=== PATIENT | female | born 1965 | race Two or more races ===

== ENCOUNTER 2019-11-06 21:53 | Inpatient (IN) | payer MEDICAID ==
[~2019-11-06] VITALS: Ht 154.9 cm; Wt 136.1 kg
--- NOTE | 2019-11-06 21:59 | Emergency Room Report ---
History of Present Illness General Chief Complaint: Edema Source: Patient Present Illness HPI Patient is a 54-year-old male female brought in by EMS after increased generalized weakness and difficulty with breathing. Reportedly patient had been noncompliant with her medications. Had increased work of breathing. Unknown what previous medical history is however she reportedly has some history of diabetes as well as hypertension. Patient had reportedly been poorly compliant with medications. And had previously refused transport by EMS. Allergies: Coded Allergies: No Known Allergies (Unverified , 11/06/19) COVID-19 Screening Contact w/high risk pt: No Experienced COVID-19 symptoms?: No COVID-19 Testing performed UNIT AID: No Patient History Past Medical History: see triage record Reviewed Nursing Documentation: PMH: Agreed; PSxH: Agreed Nursing Documentation-PMH Hx Hypertension: Yes Hx Diabetes: Yes Review of Systems All Other Systems: limited - Limited by poor historian Physical Exam Vital Signs Date Time Temp Pulse Resp B/P (MAP) Pulse Ox O2 Delivery O2 Flow Rate FiO2 11/06/19 21:46 98.8 100 18 150/100 (117) 96 Nasal Cannula 4.0 General Appearance: obese, Chronically Ill Eyes: bilateral eye PERRL Neck: full range of motion Respiratory: crackles Cardiovascular #1: normal peripheral pulses, regular rate, rhythm, edema - 4+ weeping to the right lower extremity Gastrointestinal: normal bowel sounds, non tender, soft Musculoskeletal: normal inspection Neurologic: alert, motor strength/tone normal, flour broker III-XII nml as tested, oriented x3 Skin: other - Slight erythema to the right lower extremity Medical Decision Making Diagnostic Impression: Primary Impression: 2019 novel coronavirus disease (COVID-19) Additional Impressions: Multifocal pneumonia CHF (congestive heart failure) Diabetes Fluid overload ER Course Patient presented for generalized weakness. Differential diagnosis include was not limited to congestive heart failure, electrolyte abnormality, dehydration, myocardial infarction, renal failure among others. Because of complexity of patient's case laboratory tests and imaging studies were ordered. Patient was noted to have what appears to be volume overload. Right lower extremity does appear to be somewhat erythematous. Pulses to the lower extremity appear to be intact.Duplex ultrasound was ordered. Patient's rapid coronavirus test was positive for coronavirus. Patient was given IV Lasix due to volume overload. Patient's troponin was noted to be 0.1. Patient was anticoagulated with Lovenox. Chest x-ray 1 view read by radiology showed bilateral patchy infiltrates extensive consolidative airspace opacities concerning for multifocal pneumonia and cardiomegaly. Patient was given IV antibiotics due to possible cellulitis of the right lower extremity. Duplex ultrasound showed no evidence of DVT.Dr. Gustabo Carter was contacted for inpatient management due to panel physician. Labs Test 11/06/19 22:20 11/06/19 23:07 White Blood Count 9.3 K/UL (4.8-10.8) Red Blood Count 5.57 M/UL (4.20-5.40) Hemoglobin 15.0 G/DL (12.0-16.0) Hematocrit 49.5 % (37.0-47.0) Mean Corpuscular Volume 89 FL (80-99) Mean Corpuscular Hemoglobin 27.0 PG (27.0-31.0) Mean Corpuscular Hemoglobin Concent 30.4 G/DL (32.0-36.0) Red Cell Distribution Width 17.7 % (11.6-14.8) Platelet Count 252 K/UL (150-450) Mean Platelet Volume 7.0 FL (6.5-10.1) Neutrophils (%) (Auto) 79.8 % (45.0-75.0) Lymphocytes (%) (Auto) 9.3 % (20.0-45.0) Monocytes (%) (Auto) 8.3 % (1.0-10.0) Eosinophils (%) (Auto) 1.4 % (0.0-3.0) Basophils (%) (Auto) 1.2 % (0.0-2.0) Prothrombin Time 13.1 SEC (9.30-11.50) Prothromb Time International Ratio 1.2 (0.9-1.1) Activated Partial Thromboplast Time 28 SEC (23-33) Sodium Level 137 MMOL/L (136-145) Potassium Level 5.2 MMOL/L (3.5-5.1) Chloride Level 102 MMOL/L (98-107) Carbon Dioxide Level 29 MMOL/L (21-32) Anion Gap 6 mmol/L (5-15) Blood Urea Nitrogen 19 mg/dL (7-18) Creatinine 1.1 MG/DL (0.55-1.30) Estimat Glomerular Filtration Rate 51.9 mL/min (>60) Glucose Level 196 MG/DL (74-106) Lactic Acid Level 2.80 mmol/L (0.4-2.0) Calcium Level 8.4 MG/DL (8.5-10.1) Phosphorus Level 3.9 MG/DL (2.5-4.9) Magnesium Level 2.5 MG/DL (1.8-2.4) Total Bilirubin 1.8 MG/DL (0.2-1.0) Direct Bilirubin 1.0 MG/DL (0.0-0.3) Aspartate Amino Transf (AST/SGOT) 68 U/L (15-37) Alanine Aminotransferase (ALT/SGPT) 51 U/L (12-78) Alkaline Phosphatase 332 U/L (46-116) Total Creatine Kinase 95 U/L (26-308) Creatine Kinase MB 2.0 NG/ML (0.0-3.6) Creatine Kinase MB Relative Index 2.1 Troponin I 0.110 ng/mL (0.000-0.056) Total Protein 8.8 G/DL (6.4-8.2) Albumin 2.9 G/DL (3.4-5.0) Globulin 5.9 g/dL Albumin/Globulin Ratio 0.5 (1.0-2.7) Urine Color Yellow Urine Appearance Clear Urine pH 5 (4.5-8.0) Urine Specific [place] 1.010 (1.005-1.035) Urine Protein 1+ (NEGATIVE) Urine Glucose (UA) Negative (NEGATIVE) Urine Ketones Negative (NEGATIVE) Urine Blood 2+ (NEGATIVE) Urine Nitrite Negative (NEGATIVE) Urine Bilirubin Negative (NEGATIVE) Urine Urobilinogen Normal MG/DL (0.0-1.0) Urine Leukocyte Esterase Trace (NEGATIVE) Urine RBC 2-4 /HPF (0 - 2) Urine WBC 0-2 /HPF (0 - 2) Urine Squamous Epithelial Cells Few /LPF (NONE/OCC) Urine Bacteria Few /HPF (NONE) Urine Granular Casts 0-2 /LPF (NONE) EKG Diagnostic Results EKG Time: 22:03 Rate: normal Rhythm: other - atrial fibrillation ST Segments: no acute changes Other Impression Right bundle branch block. no st changes. Last Vital Signs Date Time Temp Pulse Resp B/P (MAP) Pulse Ox O2 Delivery O2 Flow Rate FiO2 11/06/19 21:46 98.8 100 18 150/100 (191) 96 Nasal Cannula 4.0 Status: unchanged Disposition: ADMITTED INPATIENT Condition: Serious Sin Valenzuela MD Nov 06, 2019 21:59
[2019-11-06] MEDS ORDERED: Piperacillin/Tazobactam 3.375 GM in NS 110 ML IVPB ONE (22:15)
--- NOTE | 2019-11-06 22:16 | Diagnostic Imaging Report ---
EXAM: XR Chest, 1 View CLINICAL HISTORY: SOB TECHNIQUE: Frontal view of the chest. COMPARISON: No relevant prior studies available. FINDINGS: Lungs: Patchy bilateral extensive consolidative airspace opacities concerning for multifocal pneumonia. Pleural space: Unremarkable. No pneumothorax. Heart: Cardiomegaly. Mediastinum: Unremarkable. Bones/joints: No acute abnormality Other findings: If there is further concern, recommend CT. IMPRESSION: 1. Patchy bilateral extensive consolidative airspace opacities concerning for multifocal pneumonia or noncardiogenic pulmonary edema. 2. Cardiomegaly. 3. If there is further concern, recommend CT.
[2019-11-06 22:20] VITALS: BP 150/100
[2019-11-06 22:50] LABS: BASOPHILS % (AUTO) 1.2 % (0.0-2.0); EOSINOPHILS % (AUTO) 1.4 % (0.0-3.0); HEMATOCRIT 49.5 % (37.0-47.0); LYMPHOCYTES % (AUTO) 9.3 % (20.0-45.0); MEAN CORPUSCULAR VOLUME 89 FL (80-99); MONOCYTES % (AUTO) 8.3 % (1.0-10.0); NEUTROPHILS % (AUTO) 79.8 % (45.0-75.0); PLATELET COUNT 252 K/UL (150-450); RED BLOOD COUNT 5.57 M/UL (4.20-5.40); RED CELL DISTRIBUTION WIDTH 17.7 % (11.6-14.8); WHITE BLOOD COUNT 9.3 K/UL (4.8-10.8)
[2019-11-06 22:54] LABS: INR 1.2 (0.9-1.1)
[2019-11-06 23:05] LABS: ANION GAP 6 mmol/L (5-15); BLOOD UREA NITROGEN 19 mg/dL (7-18); CALCIUM 8.4 MG/DL (8.5-10.1); CARBON DIOXIDE 29 MMOL/L (21-32); CHLORIDE 102 MMOL/L (98-107); CREATININE 1.1 MG/DL (0.55-1.30); POTASSIUM 5.2 MMOL/L (3.5-5.1); SODIUM 137 MMOL/L (136-145)
[2019-11-06] MEDS ORDERED: Aspirin Baby 81mg ORAL ONE (23:15)
[2019-11-06 23:18] LABS: APPEARANCE,URINE CLEAR; BILIRUBIN, URINE NEGATIVE (NEGATIVE); GLUCOSE, URINE (UA) NEGATIVE (NEGATIVE); KETONES,URINE NEGATIVE (NEGATIVE); NITRITE,URINE NEGATIVE (NEGATIVE); PH,URINE 5 (4.5-8.0); PROTEIN,URINE 1+ (NEGATIVE); UROBILINOGEN,URINE NORMAL MG/DL (0.0-1.0)
[2019-11-06 23:18] LABS: ALANINE AMINOTRANSFERASE 51 U/L (12-78); ALBUMIN 2.9 G/DL (3.4-5.0); ALBUMIN/GLOBULIN RATIO 0.5 (1.0-2.7); ALKALINE PHOSPHATASE 332 U/L (46-116); ASPARTATE AMINO TRANSFERASE 68 U/L (15-37); BILIRUBIN,TOTAL 1.8 MG/DL (0.2-1.0); CREATINE KINASE 95 U/L (26-308); PHOSPHORUS 3.9 MG/DL (2.5-4.9)
[2019-11-06 23:37] LABS: COLOR,URINE YELLOW; LEUKOCYTE ESTERASE ,URINE TRACE (NEGATIVE)
[2019-11-06 23:56] VITALS: BP 142/89
[2019-11-07] VITALS (7 sets, daily range): BP systolic 120–163; BP diastolic 59–91
[2019-11-07] MEDS ORDERED: dexAMETHasone 10mg/ml Inj IV ONE
--- NOTE | 2019-11-07 00:28 | Diagnostic Imaging Report ---
EXAM: US Duplex Right Lower Extremity Veins CLINICAL HISTORY: PAIN TECHNIQUE: Real-time duplex ultrasound scan of the right lower extremity veins integrating B-mode two-dimensional vascular structure, Doppler spectral analysis, color flow Doppler imaging and compression. COMPARISON: No relevant prior studies available. FINDINGS: Deep veins: Unremarkable. No DVT in the visualized common femoral, femoral, proximal deep femoral or popliteal veins. The veins demonstrate normal color flow, are normally compressible, with normal phasic flow and/or augmentation response. Superficial veins: Unremarkable. No thrombus in the visualized great saphenous vein. Soft tissues: No acute findings. No popliteal cyst. IMPRESSION: No DVT.
[2019-11-07] MEDS ORDERED: FUROSEMIDE40 MG ORAL (00:38)
[2019-11-07] MEDS ORDERED: METFORMIN HCL500 M1 ORAL (00:39)
[2019-11-07] MEDS: Enoxaparin 120 mg inj SUBQ SCH ×3 (00:56→21:40)
[2019-11-07 05:24] LABS: ANION GAP 7 mmol/L (5-15); BLOOD UREA NITROGEN 21 mg/dL (7-18); CALCIUM 8.2 MG/DL (8.5-10.1); CARBON DIOXIDE 29 MMOL/L (21-32); CHLORIDE 102 MMOL/L (98-107); CREATININE 1.2 MG/DL (0.55-1.30); POTASSIUM 4.5 MMOL/L (3.5-5.1); SODIUM 137 MMOL/L (136-145)
[2019-11-07] MEDS ORDERED: IV Preparation Fee ONE (06:00)
[2019-11-07] MEDS: NovoLOG Insulin Flexpen SUBQ SCH ×4 (06:08→21:39)
[2019-11-07] MEDS ORDERED: Remdesivir Fact Sheet MISC SCH (10:45)
[2019-11-07] MEDS ORDERED: IV Preparation Fee MISC PRN (13:00)
[2019-11-07] MEDS ORDERED: Loading Dose:Remdesivir 200mg/NS 210ml IV SCH ×2 (13:00)
--- NOTE | 2019-11-07 16:30 | History and Physical Report ---
DATE OF ADMISSION: 11/06/2019 DATE AND TIME SEEN: 11/07/2019 at 9 a.m. CONSULTANTS: 1. Anthony Saini MD. 2. Rosette Bowman MD. 3. Gabe Snell MD. CHIEF COMPLAINT: Weakness, pneumonia, COVID infection, diabetes, hypertension, AFib, right leg swelling. BRIEF HISTORY: This is a 54-year-old female, presents to [facility] with above-mentioned diagnoses, admitted to step-down unit. Currently, sleeping in bed, not talking much. REVIEW OF SYSTEMS: Unavailable. PAST MEDICAL HISTORY: Include diabetes, hypertension, CHF. PAST SURGICAL HISTORY: Unknown. MEDICATIONS: Include insulin, dexamethasone, Zosyn, aspirin, furosemide. ALLERGIES: Denies. SOCIAL HISTORY: Unable to obtain secondary to the patient's lethargy. OBJECTIVE: GENERAL: Sleeping in bed, not talking much, lethargic, sleepy. VITAL SIGNS: Temperature is 97, pulse 103, respirations 23, blood pressure 138/90. HEENT: Normocephalic and atraumatic. NECK: Trachea midline. CARDIOVASCULAR: No peripheral edema. LUNG: Slight short of breath on room air. ABDOMEN: No apparent wounds. EXTREMITIES: Show no cyanosis or clubbing. LABORATORY AND DIAGNOSTIC DATA: Labs at this time show CBC is normal. BMP shows BUN 21, glucose 232, calcium 8.2. INR is 1.2. D-dimer 8.58. Urinalysis show trace leukocyte esterase. ASSESSMENT: Weakness, pneumonia, UTI, COVID infection, diabetes, hypertension, right leg swelling, AFib, and CHF. PLAN: O2 and pulmonary treatment as needed. Antibiotics per Infectious Disease. Blood pressure, blood sugar, and pain control. Dietary followup. PT and dietary evaluation. CBC and BMP in the morning. Gustabo Carter D.O. DR: DILIP/CORA JOB#: [id number] CC:
--- NOTE | 2019-11-07 16:40 | Cardiac Electrophysiology PN ---
Subjective Subjective [id number] Objective Last 24 Hour Vital Signs Date Time Temp Pulse Resp B/P (MAP) Pulse Ox O2 Delivery O2 Flow Rate FiO2 11/07/19 16:00 Nasal Cannula 2.0 11/07/19 15:45 101 11/07/19 12:00 Nasal Cannula 2.0 11/07/19 12:00 96.1 95 21 144/83 (103) 100 11/07/19 11:39 95 11/07/19 08:44 103 11/07/19 08:00 97.7 90 23 138/90 (106) 98 11/07/19 08:00 Nasal Cannula 2.0 11/07/19 04:00 Nasal Cannula 2.0 11/07/19 04:00 98.2 107 20 146/85 (105) 98 11/07/19 04:00 102 11/07/19 01:24 Nasal Cannula 6.0 11/07/19 01:06 104 11/07/19 01:00 98.0 101 20 163/81 (108) 99 11/07/19 00:45 98.8 98 17 142/89 99 Nasal Cannula 6.0 11/06/19 23:56 98 17 142/89 100 Nasal Cannula 6.0 11/06/19 22:20 100 18 Nasal Cannula 4.0 11/06/19 22:20 98.8 108 18 150/100 96 Nasal Cannula 6.0 11/06/19 21:46 98.8 100 18 150/100 (117) 96 Nasal Cannula 4.0 Intake and Output 11/06/19 11/07/19 19:00 07:00 Intake Total 100 ml Balance 100 ml Intake Oral 100 ml Laboratory Tests Test 11/06/19 22:20 11/06/19 23:07 11/06/19 23:43 11/07/19 00:34 White Blood Count 9.3 K/UL (4.8-10.8) Red Blood Count 5.57 M/UL (4.20-5.40) H Hemoglobin 15.0 G/DL (12.0-16.0) Hematocrit 49.5 % (37.0-47.0) H Mean Corpuscular Volume 89 FL (80-99) Mean Corpuscular Hemoglobin 27.0 PG (27.0-31.0) Mean Corpuscular Hemoglobin Concent 30.4 G/DL (32.0-36.0) L Red Cell Distribution Width 17.7 % (11.6-14.8) H Platelet Count 252 K/UL (150-450) Mean Platelet Volume 7.0 FL (6.5-10.1) Neutrophils (%) (Auto) 79.8 % (45.0-75.0) H Lymphocytes (%) (Auto) 9.3 % (20.0-45.0) L Monocytes (%) (Auto) 8.3 % (1.0-10.0) Eosinophils (%) (Auto) 1.4 % (0.0-3.0) Basophils (%) (Auto) 1.2 % (0.0-2.0) Prothrombin Time 13.1 SEC (9.30-11.50) H Prothromb Time International Ratio 1.2 (0.9-1.1) H Activated Partial Thromboplast Time 28 SEC (23-33) Sodium Level 137 MMOL/L (136-145) Potassium Level 5.2 MMOL/L (3.5-5.1) H Chloride Level 102 MMOL/L (98-107) Carbon Dioxide Level 29 MMOL/L (21-32) Anion Gap 6 mmol/L (5-15) Blood Urea Nitrogen 19 mg/dL (7-18) H Creatinine 1.1 MG/DL (0.55-1.30) Estimat Glomerular Filtration Rate 51.9 mL/min (>60) Glucose Level 196 MG/DL (74-106) H Lactic Acid Level 2.80 mmol/L (0.4-2.0) H 2.70 mmol/L (0.66-2.22) H Calcium Level 8.4 MG/DL (8.5-10.1) L Phosphorus Level 3.9 MG/DL (2.5-4.9) Magnesium Level 2.5 MG/DL (1.8-2.4) H Total Bilirubin 1.8 MG/DL (0.2-1.0) H Direct Bilirubin 1.0 MG/DL (0.0-0.3) H Aspartate Amino Transf (AST/SGOT) 68 U/L (15-37) H Alanine Aminotransferase (ALT/SGPT) 51 U/L (12-78) Alkaline Phosphatase 332 U/L (46-116) H Total Creatine Kinase 95 U/L (26-308) Creatine Kinase MB 2.0 NG/ML (0.0-3.6) Creatine Kinase MB Relative Index 2.1 Troponin I 0.110 ng/mL (0.000-0.056) Pro-B-Type Natriuretic Peptide 3219 pg/mL (0-125) H Total Protein 8.8 G/DL (6.4-8.2) H Albumin 2.9 G/DL (3.4-5.0) L Globulin 5.9 g/dL Albumin/Globulin Ratio 0.5 (1.0-2.7) L Urine Color Yellow Urine Appearance Clear Urine pH 5 (4.5-8.0) Urine Specific [place] 1.010 (1.005-1.035) Urine Protein 1+ (NEGATIVE) H Urine Glucose (UA) Negative (NEGATIVE) Urine Ketones Negative (NEGATIVE) Urine Blood 2+ (NEGATIVE) H Urine Nitrite Negative (NEGATIVE) Urine Bilirubin Negative (NEGATIVE) Urine Urobilinogen Normal MG/DL (0.0-1.0) Urine Leukocyte Esterase Trace (NEGATIVE) H Urine RBC 2-4 /HPF (0 - 2) H Urine WBC 0-2 /HPF (0 - 2) Urine Squamous Epithelial Cells Few /LPF (NONE/OCC) Urine Bacteria Few /HPF (NONE) Urine Granular Casts 0-2 /LPF (NONE) H D-Dimer 8.58 mg/L FEU (0.00-0.49) H Test 11/07/19 01:30 11/07/19 04:15 11/07/19 05:39 11/07/19 05:40 POC Whole Blood Glucose Pending 241 MG/DL (74-106) H Pending Sodium Level 137 MMOL/L (136-145) Potassium Level 4.5 MMOL/L (3.5-5.1) Chloride Level 102 MMOL/L (98-107) Carbon Dioxide Level 29 MMOL/L (21-32) Anion Gap 7 mmol/L (5-15) Blood Urea Nitrogen 21 mg/dL (7-18) H Creatinine 1.2 MG/DL (0.55-1.30) Estimat Glomerular Filtration Rate 47.0 mL/min (>60) Glucose Level 232 MG/DL (74-106) H Calcium Level 8.2 MG/DL (8.5-10.1) L Test 11/07/19 11:52 Arterial Blood pH 7.364 (7.350-7.450) Arterial Blood Partial Pressure CO2 50.9 mmHg (35.0-45.0) H Arterial Blood Partial Pressure O2 83.8 mmHg (75.0-100.0) Arterial Blood HCO3 28.4 mmol/L (22.0-26.0) H Arterial Blood Oxygen Saturation 95.9 % (95-100) Arterial Blood Base Excess 2.0 (-2-2) Steve Test Positive Microbiology Date/Time Source Procedure Growth Status 11/06/19 22:45 Nasopharynx SARS-CoV-2 RdRp Gene Assay - Final Complete Gabe Snell MD Nov 07, 2019 16:40
--- NOTE | 2019-11-07 17:45 | Consultation ---
DATE OF CONSULTATION: 11/07/2019 INFECTIOUS DISEASE CONSULTATION REFERRING PHYSICIAN: Gustabo Carter D.O. REASON FOR CONSULTATION: COVID-19 pneumonia. HISTORY OF PRESENTING ILLNESS: This is a 54-year-old lady with history of hypertension and diabetes, who came in with shortness of breath along with weakness. She was found to have COVID-19 pneumonia and an infectious disease consultation has been obtained for antibiotics. PAST MEDICAL HISTORY: 1. History of diabetes. 2. History of hypertension. SOCIAL HISTORY: She does not smoke, drink, or use drugs. FAMILY HISTORY: Unknown. REVIEW OF SYSTEMS: RESPIRATORY: No fever of chills. No cough. She has shortness of breath. No chest pain. CARDIAC: No chest pain. No palpitation. No dizziness. No syncope. GASTROINTESTINAL: No nausea. No vomiting. No abdominal pain or diarrhea. MEDICATIONS: As an inpatient, she is on remdesivir, insulin, enoxaparin, dexamethasone. ALLERGIES: No known drug allergies. PHYSICAL EXAMINATION: VITAL SIGNS: Temperature of 97.7, T-max of 98.8, pulse of 103, respiratory rate 23, blood pressure 138/90, O2 sat of 98% on 2 liters of oxygen. Examination deferred due to COVID-19. LABORATORY AND DIAGNOSTIC DATA: White count 9.3, hemoglobin 15, hematocrit 49.5, MCV 89, platelet count 252, with neutrophils of 79%. Sodium 137, potassium 4.5, chloride 102, bicarb 29, BUN 21, creatinine 1.2, glucose 232, calcium 8.2, total bilirubin 1.8, direct bilirubin 1, AST 68, ALT 51, alkaline phosphatase 332. CK of 95, CK-MB of 2. Troponin 0.1. Total protein 8.8, albumin 2.9. UA showing 0-2 white cells. SARS COVID-19 test is positive. Chest x-ray showing patchy bilateral extensive consolidation, opacities concerning for multifocal pneumonia, cardiomegaly noted. Ultrasound of legs showed no evidence of DVT ASSESSMENT: This is a 54-year-old lady with history of diabetes and hypertension, who comes in with shortness of breath and is found to have: 1. COVID-19 pneumonia. She is on 2 liters of oxygen with O2 saturation of 98%. 2. Diabetes. 3. Hypertension. PLAN: 1. start remdesivir EUA The patient consents to taking it. Benefits outweigh the risks. 2. Continue dexamethasone, day 2. 3. Continue isolation. 4. We will follow up the patient clinically. I would like to thank, Dr. Gustabo Carter, for this consultation. Rosette Bowman M.D. DR: KUSHAL JOB#: [id number] CC: Usha Neri
--- NOTE | 2019-11-07 18:45 | Consultation ---
DATE OF CONSULTATION: 11/07/2019 PULMONARY CONSULTATION CONSULTING PHYSICIAN: Anthony Saini MD. HISTORY OF PRESENT ILLNESS: This is a 54-year-old female who was brought to the hospital with weakness and difficulty with breathing. The patient is very noncompliant with her home medications. She reports history of diabetes mellitus and hypertension. She was seen and evaluated and admitted to the hospital for management and care. PAST MEDICAL HISTORY: Hypertension and diabetes mellitus. CURRENT MEDICATIONS: Include Decadron, Lovenox, insulin sliding scale, remdesivir, aspirin, and Lasix. REVIEW OF SYSTEMS: She denies any headaches, hematemesis, melena, hematochezia, night sweats, or weight loss. PHYSICAL EXAMINATION: GENERAL: Reveals a 54-year-old female. HEENT: Unremarkable. ABDOMEN: Decreased breath sounds bilaterally. ABDOMEN: Soft. There is edema. VITAL SIGNS: Blood pressure 140/80, heart rate is 94, respirations are 18, O2 saturation 98% on 2 L of oxygen. LABORATORY DATA: Lab testing shows normal CBC and BMP with a glucose of 241, lactic acid 2.7. ABG 7.36, pCO2 50, PO2 83. Coags show D-dimer of 8.5. Urinalysis is negative. X-ray chest shows patchy extensive bilateral opacities consistent with infectious process. The patient also underwent venous duplex bilaterally, which is negative for DVT. The patient underwent a rapid COVID-19 PCR test, which was positive. IMPRESSION: 1. COVID-19 pneumonia. 2. Diabetes mellitus and hypertension. 3. Lactic acidemia. 4. Mild respiratory acidosis. DISCUSSION: Admit to the hospital. Monitor carefully. The patient has been started on remdesivir and steroids. We will order oxygen and pulmonary hygiene. Saturating well on nasal oxygen. We will follow carefully. Anthony Saini M.D. DR: Chris JOB#: [id number] CC:
--- NOTE | 2019-11-07 19:30 | Consultation ---
DATE OF CONSULTATION: 11/07/2019 CARDIOLOGY CONSULTATION CONSULTING PHYSICIAN: Gabe Snell M.D. REFERRING PHYSICIAN: Gustabo Carter D.O. REASON FOR CONSULTATION: Management of atrial fibrillation. HISTORY OF PRESENT ILLNESS: The patient is a 54-year-old lady with history of hypertension, who was brought in by paramedics for increased generalized weakness and difficulty breathing. The patient had been noncompliant with her medication and increased vocal breathing. The patient was admitted and was placed in isolation as her COVID was positive. The patient also had atrial fibrillation. REVIEW OF SYSTEMS: Review of systems was negative other than what is mentioned in the history of present illness. PAST MEDICAL HISTORY: As mentioned above. FAMILY HISTORY: Noncontributory. SOCIAL HISTORY: Denies smoking or drinking alcohol. PHYSICAL EXAMINATION: VITAL SIGNS: Blood pressure 144/83, pulse is 101, respirations is 18, and temperature 96. HEAD AND NECK: Shows no JVD. LUNGS: Coarse rhonchi. CARDIOVASCULAR: Shows irregularly irregular. S1 and S2 with no gallop or murmur. ABDOMEN: Soft. EXTREMITIES: No pitting edema. LABORATORY DATA: Labs show white count of 9.2, hemoglobin of 15, hematocrit of 49, and platelet count is 252,000. Sodium 137, potassium 4.4, BUN of 21, creatinine 1.2, and glucose of 241. ASSESSMENT/PLAN: 1. Atrial fibrillation. The patient is on Lovenox 110 mg subcutaneous b.i.d. I will add metoprolol 25 mg b.i.d. for better rate control and management of hypertension. We will get an echocardiogram for further evaluation. 2. COVID positive pneumonia. The patient is already on remdesivir and dexamethasone. 3. Diabetes, on insulin. Thank you very much for allowing me to participate in the care of this patient. Please do not hesitate to contact me for any questions regarding my evaluation. Gabe Snell M.D. DR: BRICE JOB#: [id number] CC:
[2019-11-08] VITALS (24 sets, daily range): BP systolic 94–167; BP diastolic 42–85
[2019-11-08] MEDS: NovoLOG Insulin Flexpen SUBQ SCH ×3 (06:30→21:09)
[2019-11-08] MEDS ORDERED: LORazepam Inj 2mg/ml 1ml IV SCH (06:45)
[2019-11-08] MEDS: LORazepam Inj 2mg/ml 1ml IV PRN ×3 (07:47→12:05)
[2019-11-08 08:10] LABS: BASOPHILS % (AUTO) 0.7 % (0.0-2.0); EOSINOPHILS % (AUTO) 0.1 % (0.0-3.0); HEMATOCRIT 45.8 % (37.0-47.0); HEMOGLOBIN 13.9 G/DL (12.0-16.0); LYMPHOCYTES % (AUTO) 7.3 % (20.0-45.0); MEAN CORPUSCULAR VOLUME 90 FL (80-99); MONOCYTES % (AUTO) 8.7 % (1.0-10.0); NEUTROPHILS % (AUTO) 83.2 % (45.0-75.0); PLATELET COUNT 247 K/UL (150-450); RED BLOOD COUNT 5.11 M/UL (4.20-5.40); RED CELL DISTRIBUTION WIDTH 16.4 % (11.6-14.8); WHITE BLOOD COUNT 12.1 K/UL (4.8-10.8)
--- NOTE | 2019-11-08 08:21 | Pulmonology Progress Note ---
Subjective Interval Events: ANxious; still on ventimask Constitutional: Reports: fatigue HEENT: Repors: no symptoms Respiratory: Reports: dry cough, shortness of breath Cardiovascular: Reports: no symptoms Gastrointestinal/Abdominal: Reports: no symptoms Allergies: Coded Allergies: No Known Allergies (Unverified , 11/06/19) Objective Last 24 Hour Vital Signs Date Time Temp Pulse Resp B/P (MAP) Pulse Ox O2 Delivery O2 Flow Rate FiO2 11/08/19 04:20 Venturi Mask 11/08/19 04:00 97.2 109 22 127/66 (86) 96 11/08/19 04:00 97 11/08/19 04:00 Nasal Cannula 4.0 11/08/19 00:00 Nasal Cannula 4.0 11/07/19 23:57 97.2 96 22 146/74 (98) 95 11/07/19 21:36 78 123/59 11/07/19 21:32 78 123/59 (80) 97 11/07/19 20:00 97 11/07/19 20:00 97.7 91 22 120/91 (101) 96 11/07/19 20:00 Nasal Cannula 4.0 11/07/19 16:00 Nasal Cannula 2.0 11/07/19 15:45 101 11/07/19 12:00 Nasal Cannula 2.0 11/07/19 12:00 96.1 95 21 144/83 (103) 100 11/07/19 11:39 95 11/07/19 08:44 103 Intake and Output 11/07/19 11/08/19 19:00 07:00 Intake Total 1000 ml Output Total 500 ml Balance 500 ml Intake Oral 1000 ml Output Urine Total 500 ml General Appearance: no acute distress HEENT: normocephalic Respiratory: decreased breath sounds Cardiovascular: normal peripheral pulses Abdomen: normal bowel sounds Extremities: no cyanosis Microbiology Date/Time Source Procedure Growth Status 11/06/19 22:20 Blood Blood Culture - Preliminary NO GROWTH AFTER 24 HOURS Resulted 11/06/19 22:05 Blood Blood Culture - Preliminary NO GROWTH AFTER 24 HOURS Resulted 11/06/19 22:45 Nasopharynx SARS-CoV-2 RdRp Gene Assay - Final Complete Laboratory Tests 11/07/19 11:52: Arterial Blood pH 7.364, Arterial Blood Partial Pressure CO2 50.9H, Arterial Blood Partial Pressure O2 83.8, Arterial Blood HCO3 28.4H, Arterial Blood Oxygen Saturation 95.9, Arterial Blood Base Excess 2.0, Steve Test Positive 11/08/19 07:40: White Blood Count 12.1H, Red Blood Count 5.11, Hemoglobin 13.9, Hematocrit 45.8 , Mean Corpuscular Volume 90, Mean Corpuscular Hemoglobin 27.1, Mean Corpuscular Hemoglobin Concent 30.3L, Red Cell Distribution Width 16.4H, Platelet Count 247, Mean Platelet Volume 6.3L, Neutrophils (%) (Auto) 83.2H, Lymphocytes (%) (Auto) 7.3L, Monocytes (%) (Auto) 8.7, Eosinophils (%) (Auto) 0.1, Basophils (%) (Auto) 0.7, Sodium Level [Pending], Potassium Level [Pending] , Chloride Level [Pending], Carbon Dioxide Level [Pending], Blood Urea Nitrogen [Pending], Creatinine [Pending], Estimat Glomerular Filtration Rate [Pending], Glucose Level [Pending], Calcium Level [Pending], Total Bilirubin [Pending], Direct Bilirubin [Pending], Aspartate Amino Transf (AST/SGOT) [Pending], Alanine Aminotransferase (ALT/SGPT) [Pending], Alkaline Phosphatase [Pending], Troponin I [Pending], Pro-B-Type Natriuretic Peptide [Pending], Total Protein [ Pending], Albumin [Pending], Globulin [Pending], Triglycerides Level [Pending], Cholesterol Level [Pending], LDL Cholesterol [Pending], HDL Cholesterol [Pending ], Cholesterol/HDL Ratio [Pending], Thyroid Stimulating Hormone (TSH) [Pending] , Free Thyroxine [Pending] 11/08/19 07:59: Arterial Blood pH 7.379, Arterial Blood Partial Pressure CO2 41.8, Arterial Blood Partial Pressure O2 67.6L, Arterial Blood HCO3 24.1, Arterial Blood Oxygen Saturation 93.3L, Arterial Blood Base Excess -1.0, Steve Test Positive Current Medications Medications (Trade) Dose Ordered Sig/Robyn Route PRN Reason Start Time Stop Time Status Last Admin Dose Admin Dexamethasone (Decadron) 6 mg DAILY ORAL 11/08/19 09:00 11/16/19 09:01 Dextrose (Dextrose 50%) 25 ml Q30M PRN IV Hypoglycemia 11/07/19 03:00 02/05/20 02:59 Dextrose (Dextrose 50%) 50 ml Q30M PRN IV Hypoglycemia 11/07/19 03:00 02/05/20 02:59 Enoxaparin Sodium (Lovenox) 110 mg EVERY 12 HOURS SUBQ 11/07/19 00:15 02/05/20 00:14 11/07/19 21:40 Insulin Aspart (NovoLOG) BEFORE MEALS AND HS SUBQ 11/07/19 06:30 02/05/20 06:29 11/07/19 21:39 Lorazepam (Ativan 2mg/ml 1ml) 1 mg Q4H PRN IV For Anxiety 11/08/19 07:45 11/15/19 07:44 11/08/19 07:54 Metoprolol Tartrate (Lopressor) 25 mg EVERY 12 HOURS ORAL 11/07/19 21:00 02/05/20 20:59 11/07/19 21:36 Remdesivir 100 mg/ Sodium Chloride 250 ml @ 250 mls/hr Q24H IV 11/08/19 13:00 11/11/19 13:59 Assessment/Plan Assessment/Plan IMPRESSION: 1. COVID-19 pneumonia. 2. Diabetes mellitus and hypertension. 3. Lactic acidemia. 4. Mild respiratory acidosis. DISCUSSION: Will check ABG this AM Added Ativan Careful and close monitor. The patient has been started on remdesivir and steroids. Continue oxygen and pulmonary hygiene. Saturating currently on ventimask. I will follow carefully. Lakeisha Zavaleta Omar Syed MD Nov 08, 2019 08:21
[2019-11-08] MEDS: Enoxaparin 120 mg inj SUBQ SCH (09:00)
[2019-11-08 09:03] LABS: ALANINE AMINOTRANSFERASE 49 U/L (12-78); ALBUMIN 2.5 G/DL (3.4-5.0); ALBUMIN/GLOBULIN RATIO 0.5 (1.0-2.7); ALKALINE PHOSPHATASE 281 U/L (46-116); ANION GAP 9 mmol/L (5-15); ASPARTATE AMINO TRANSFERASE 57 U/L (15-37); BILIRUBIN,TOTAL 1.6 MG/DL (0.2-1.0); BLOOD UREA NITROGEN 25 mg/dL (7-18); CALCIUM 8.4 MG/DL (8.5-10.1); CARBON DIOXIDE 26 MMOL/L (21-32); CHLORIDE 100 MMOL/L (98-107); CREATININE 1.3 MG/DL (0.55-1.30); POTASSIUM 4.7 MMOL/L (3.5-5.1); SODIUM 135 MMOL/L (136-145)
[2019-11-08 09:05] LABS: BILIRUBIN,DIRECT 0.9 MG/DL (0.0-0.3); CHOLESTEROL 105 MG/DL (< 200); HDL CHOLESTEROL 30 MG/DL (40-60); TRIGLYCERIDES 82 MG/DL (30-150)
[2019-11-08] MEDS ORDERED: dexAMETHasone 10mg/ml Inj IV SCH (09:15)
[2019-11-08] MEDS ORDERED: Surgicel 4in x 8in TOPIC ONE (09:30)
--- NOTE | 2019-11-08 09:43 | General Progress Note ---
Assessment/Plan Problem List: (1) Afib ICD Codes: I48.91 - Unspecified atrial fibrillation SNOMED: 34357936 (2) Epistaxis ICD Codes: R04.0 - Epistaxis SNOMED: 711015612 (3) Weak ICD Codes: R53.1 - Weakness SNOMED: 65734937 (4) UTI (urinary tract infection) ICD Codes: N39.0 - Urinary tract infection, site not specified SNOMED: 13351984 (5) Diabetes ICD Codes: E11.9 - Type 2 diabetes mellitus without complications SNOMED: 48872771 (6) CHF (congestive heart failure) ICD Codes: I50.9 - Heart failure, unspecified SNOMED: 52108602 (7) Multifocal pneumonia ICD Codes: J18.9 - Pneumonia, unspecified organism SNOMED: 104357161 (8) 2019 novel coronavirus disease (COVID-19) ICD Codes: U07.1 - COVID-19 SNOMED: 179312556 Status: unchanged Status Narrative o2 pulm tx pt diet abx cbc bmp am heme eval er eval prn Subjective Constitutional: Reports: weakness Allergies: Coded Allergies: No Known Allergies (Unverified , 11/06/19) All Systems: reviewed and negative except above Subjective nose bleed o2 mask Objective Last 24 Hour Vital Signs Date Time Temp Pulse Resp B/P (MAP) Pulse Ox O2 Delivery O2 Flow Rate FiO2 11/08/19 08:58 112 11/08/19 08:00 97.0 112 21 118/85 (96) 94 11/08/19 04:20 Venturi Mask 11/08/19 04:00 97.2 109 22 127/66 (86) 96 11/08/19 04:00 97 11/08/19 04:00 Nasal Cannula 4.0 11/08/19 00:00 Nasal Cannula 4.0 11/07/19 23:57 97.2 96 22 146/74 (98) 95 11/07/19 21:36 78 123/59 11/07/19 21:32 78 123/59 (80) 97 11/07/19 20:00 97 11/07/19 20:00 97.7 91 22 120/91 (101) 96 11/07/19 20:00 Nasal Cannula 4.0 11/07/19 16:00 Nasal Cannula 2.0 11/07/19 15:45 101 11/07/19 12:00 Nasal Cannula 2.0 11/07/19 12:00 96.1 95 21 144/83 (103) 100 11/07/19 11:39 95 Intake and Output 11/07/19 11/08/19 19:00 07:00 Intake Total 1000 ml 1600 ml Output Total 500 ml 400 ml Balance 500 ml 1200 ml Intake Oral 1000 ml 1600 ml Output Urine Total 500 ml 400 ml Laboratory Tests 11/07/19 11:52: Arterial Blood pH 7.364, Arterial Blood Partial Pressure CO2 50.9H, Arterial Blood Partial Pressure O2 83.8, Arterial Blood HCO3 28.4H, Arterial Blood Oxygen Saturation 95.9, Arterial Blood Base Excess 2.0, Steve Test Positive 11/08/19 07:40: White Blood Count 12.1H, Red Blood Count 5.11, Hemoglobin 13.9, Hematocrit 45.8 , Mean Corpuscular Volume 90, Mean Corpuscular Hemoglobin 27.1, Mean Corpuscular Hemoglobin Concent 30.3L, Red Cell Distribution Width 16.4H, Platelet Count 247, Mean Platelet Volume 6.3L, Neutrophils (%) (Auto) 83.2H, Lymphocytes (%) (Auto) 7.3L, Monocytes (%) (Auto) 8.7, Eosinophils (%) (Auto) 0.1, Basophils (%) (Auto) 0.7, Sodium Level 135L, Potassium Level 4.7, Chloride Level 100, Carbon Dioxide Level 26, Anion Gap 9, Blood Urea Nitrogen 25H, Creatinine 1.3, Estimat Glomerular Filtration Rate 42.8, Glucose Level 237H, Calcium Level 8.4L, Total Bilirubin 1.6H, Direct Bilirubin 0.9H, Aspartate Amino Transf (AST/SGOT) 57H, Alanine Aminotransferase (ALT/SGPT) 49, Alkaline Phosphatase 281H, Troponin I 0.097H, Pro-B-Type Natriuretic Peptide 3898H, Total Protein 8.0, Albumin 2.5L, Globulin 5.5, Albumin/Globulin Ratio 0.5L, Triglycerides Level 82, Cholesterol Level 105, LDL Cholesterol 70, HDL Cholesterol 30L, Cholesterol/HDL Ratio 3.5, Thyroid Stimulating Hormone (TSH) 6.866H, Free Thyroxine 0.85 11/08/19 07:59: Arterial Blood pH 7.379, Arterial Blood Partial Pressure CO2 41.8, Arterial Blood Partial Pressure O2 67.6L, Arterial Blood HCO3 24.1, Arterial Blood Oxygen Saturation 93.3L, Arterial Blood Base Excess -1.0, Steve Test Positive Height (Feet): 5 Height (Inches): 3.00 Weight (Pounds): 250 General Appearance: lethargic EENT: normal ENT inspection Neck: normal alignment Cardiovascular: normal rate, regular rhythm Respiratory/Chest: no respiratory distress, no accessory muscle use Extremities: normal inspection Skin: normal pigmentation Gustabo Carter DO Nov 08, 2019 09:43
[2019-11-08 10:46] LABS: INR 1.3 (0.9-1.1)
--- NOTE | 2019-11-08 10:55 | Infectious Diseases Prog Note ---
Assessment/Plan Assessment/Plan A: 1. COVID-19 pneumonia. 2. Diabetes. 3. Hypertension. 4. Hypoxic respiratory failure 5. Morbid obesity 6. Nasal bleeding PLAN: 1. Continue remdesivir EUA 2. Continue dexamethasone, 3. Continue isolation. 4. Start on Zosyn Subjective ROS Limited/Unobtainable: Yes Constitutional: Reports: other - nasal bleeding Respiratory: Reports: other - intubated Allergies: Coded Allergies: No Known Allergies (Unverified , 11/06/19) Objective Last 24 Hour Vital Signs Date Time Temp Pulse Resp B/P (MAP) Pulse Ox O2 Delivery O2 Flow Rate FiO2 11/08/19 10:36 112 19 100 11/08/19 08:58 112 11/08/19 08:00 97.0 112 21 118/85 (96) 94 11/08/19 04:20 Venturi Mask 11/08/19 04:00 97.2 109 22 127/66 (86) 96 11/08/19 04:00 97 11/08/19 04:00 Nasal Cannula 4.0 11/08/19 00:00 Nasal Cannula 4.0 11/07/19 23:57 97.2 96 22 146/74 (98) 95 11/07/19 21:36 78 123/59 11/07/19 21:32 78 123/59 (80) 97 11/07/19 20:00 97 11/07/19 20:00 97.7 91 22 120/91 (101) 96 11/07/19 20:00 Nasal Cannula 4.0 11/07/19 16:00 Nasal Cannula 2.0 11/07/19 15:45 101 11/07/19 12:00 Nasal Cannula 2.0 11/07/19 12:00 96.1 95 21 144/83 (103) 100 11/07/19 11:39 95 Height (Feet): 5 Height (Inches): 3.00 Weight (Pounds): 250 HEENT: other - orally intubated, nasal bleeding Respiratory/Chest: other - on ventilator Cardiovascular: tachycardia Abdomen: soft, non tender Extremities: no edema Neurologic/Psychiatric: other - sedated Microbiology Date/Time Source Procedure Growth Status 11/06/19 22:20 Blood Blood Culture - Preliminary NO GROWTH AFTER 24 HOURS Resulted 11/06/19 22:05 Blood Blood Culture - Preliminary NO GROWTH AFTER 24 HOURS Resulted 11/06/19 22:45 Nasopharynx SARS-CoV-2 RdRp Gene Assay - Final Complete Laboratory Tests Test 11/07/19 11:52 11/08/19 07:40 11/08/19 07:59 11/08/19 10:00 Arterial Blood pH 7.364 (7.350-7.450) 7.379 (7.350-7.450) Arterial Blood Partial Pressure CO2 50.9 mmHg (35.0-45.0) H 41.8 mmHg (35.0-45.0) Arterial Blood Partial Pressure O2 83.8 mmHg (75.0-100.0) 67.6 mmHg (75.0-100.0) L Arterial Blood HCO3 28.4 mmol/L (22.0-26.0) H 24.1 mmol/L (22.0-26.0) Arterial Blood Oxygen Saturation 95.9 % (95-100) 93.3 % (95-100) L Arterial Blood Base Excess 2.0 (-2-2) -1.0 (-2-2) Steve Test Positive Positive White Blood Count 12.1 K/UL (4.8-10.8) H Red Blood Count 5.11 M/UL (4.20-5.40) Hemoglobin 13.9 G/DL (12.0-16.0) Hematocrit 45.8 % (37.0-47.0) Mean Corpuscular Volume 90 FL (80-99) Mean Corpuscular Hemoglobin 27.1 PG (27.0-31.0) Mean Corpuscular Hemoglobin Concent 30.3 G/DL (32.0-36.0) L Red Cell Distribution Width 16.4 % (11.6-14.8) H Platelet Count 247 K/UL (150-450) Mean Platelet Volume 6.3 FL (6.5-10.1) L Neutrophils (%) (Auto) 83.2 % (45.0-75.0) H Lymphocytes (%) (Auto) 7.3 % (20.0-45.0) L Monocytes (%) (Auto) 8.7 % (1.0-10.0) Eosinophils (%) (Auto) 0.1 % (0.0-3.0) Basophils (%) (Auto) 0.7 % (0.0-2.0) Sodium Level 135 MMOL/L (136-145) L Potassium Level 4.7 MMOL/L (3.5-5.1) Chloride Level 100 MMOL/L (98-107) Carbon Dioxide Level 26 MMOL/L (21-32) Anion Gap 9 mmol/L (5-15) Blood Urea Nitrogen 25 mg/dL (7-18) H Creatinine 1.3 MG/DL (0.55-1.30) Estimat Glomerular Filtration Rate 42.8 mL/min (>60) Glucose Level 237 MG/DL (74-106) H Calcium Level 8.4 MG/DL (8.5-10.1) L Total Bilirubin 1.6 MG/DL (0.2-1.0) H Direct Bilirubin 0.9 MG/DL (0.0-0.3) H Aspartate Amino Transf (AST/SGOT) 57 U/L (15-37) H Alanine Aminotransferase (ALT/SGPT) 49 U/L (12-78) Alkaline Phosphatase 281 U/L (46-116) H Troponin I 0.097 ng/mL (0.000-0.056) Pro-B-Type Natriuretic Peptide 3898 pg/mL (0-125) H Total Protein 8.0 G/DL (6.4-8.2) Albumin 2.5 G/DL (3.4-5.0) L Globulin 5.5 g/dL Albumin/Globulin Ratio 0.5 (1.0-2.7) L Triglycerides Level 82 MG/DL (30-150) Cholesterol Level 105 MG/DL (< 200) LDL Cholesterol 70 mg/dL (<100) HDL Cholesterol 30 MG/DL (40-60) L Cholesterol/HDL Ratio 3.5 (3.3-4.4) Thyroid Stimulating Hormone (TSH) 6.866 uiU/mL (0.358-3.740) Free Thyroxine 0.85 NG/DL (0.76-1.46) Prothrombin Time 14.1 SEC (9.30-11.50) H Prothromb Time International Ratio 1.3 (0.9-1.1) H Current Medications Medications (Trade) Dose Ordered Sig/Robyn Route PRN Reason Start Time Stop Time Status Last Admin Dose Admin Dexamethasone Sodium Phosphate (Decadron 10mg/ ml Inj) 6 mg DAILY IV 11/08/19 09:15 02/06/20 09:14 11/08/19 10:16 Dextrose (Dextrose 50%) 25 ml Q30M PRN IV Hypoglycemia 11/07/19 03:00 02/05/20 02:59 Dextrose (Dextrose 50%) 50 ml Q30M PRN IV Hypoglycemia 11/07/19 03:00 02/05/20 02:59 Enoxaparin Sodium (Lovenox) 110 mg EVERY 12 HOURS SUBQ 11/07/19 00:15 02/05/20 00:14 11/07/19 21:40 Insulin Aspart (NovoLOG) BEFORE MEALS AND HS SUBQ 11/07/19 06:30 02/05/20 06:29 11/07/19 21:39 Lorazepam (Ativan 2mg/ml 1ml) 1 mg Q4H PRN IV For Anxiety 11/08/19 07:45 11/15/19 07:44 11/08/19 07:54 Metoprolol Tartrate (Lopressor) 25 mg EVERY 12 HOURS ORAL 11/07/19 21:00 02/05/20 20:59 11/07/19 21:36 Remdesivir 100 mg/ Sodium Chloride 250 ml @ 250 mls/hr Q24H IV 11/08/19 13:00 11/11/19 13:59 Jose Hernandez MD Nov 08, 2019 10:55
--- NOTE | 2019-11-08 11:00 | Diagnostic Imaging Report ---
EXAM: XR Chest, 1 View CLINICAL HISTORY: COUGH TECHNIQUE: Frontal view of the chest. COMPARISON: No relevant prior studies available. FINDINGS/IMPRESSION: There is an endotracheal tube which terminates at the level of the caity, retraction by approximately 1-2 cm recommended. EKG leads overlie the patient. Patchy bilateral airspace opacities, which is most focally consolidated in the right midlung field. These findings are suspicious for multifocal infiltrate (given the lack of pleural effusions). No pneumothorax. Flako cardiomegaly. Calcified aorta.
[2019-11-08] MEDS ORDERED: Oxymetazoline 0.05% Na Spray 30ml NASAL ONE (11:30)
[2019-11-08] MEDS ORDERED: propofoL 1,000mg/100ml 100 ML IV SCH ×2 (11:45→12:31)
[2019-11-08] MEDS ORDERED: fentaNYL 2500mcg/NS 250ml 250 ML IV SCH (11:45)
[2019-11-08] MEDS ORDERED: Piperacillin/Tazobactam 3.375 GM in NS 110 ML IVPB SCH (12:00)
[2019-11-08] MEDS: fentaNYL 2500mcg/NS 250ml 250 ML IV SCH (12:32)
[2019-11-08] MEDS ORDERED: LORazepam Inj 2mg/ml 1ml IV PRN (12:32)
[2019-11-08] MEDS ORDERED: Maintenance Dose:Remdesivir 100mg/NS 230ml x 4 Doses IV SCH ×2 (13:00)
[2019-11-08] MEDS ORDERED: IV Preparation Fee MISC PRN (13:00)
[2019-11-08] MEDS: Remdesivir 100mg 100 MG in NS 230 ML IV SCH (13:06)
[2019-11-08] MEDS ORDERED: Etomidate 40mg/20ml Inj IV ONE (13:16)
[2019-11-08] MEDS ORDERED: Rocuronium Bromide 50mg/5ml Inj IV ONE (13:16)
[2019-11-08] MEDS ORDERED: NS 275ml ONE (13:26)
[2019-11-08] MEDS ORDERED: Tubing IV Secondary IV ONE (13:26)
--- NOTE | 2019-11-08 14:17 | Operative Note - PDOC ---
Operative Note Operative Note Date of Operation/Procedure: Nov 08, 2019 Pre-op Diagnosis: Hemorrhage Sepsis Respiratory insufficiency Procedure: Left femoral central venous catheter insertion Post-op Diagnosis: same as pre-op Surgeon: Ortiz Fleming MD Anesthesia: local Specimen: none Complications: none Condition: unstable Estimated Blood Loss: minimal Drains: none Implant(s) used?: No Indications for Procedure 51-year-old female septic intensive care unit cardiovascular compromise ACLS currently intubated on sedation active epi taxes hemorrhage poor peripheral access requires multiple medications blood draws resuscitation and transfusion. Given the central catheter placement are indicated and recommended. Emergent catheter placement performed in the intensive care unit bedside. Description of Procedure Patient was placed in the supine position. Left groin prepped draped in the same surgical fashion. The left femoral vein was cannulated on for stick without complication. Good venous flow identified. Guidewire placed over needle needle removed. Small skin cyst was made around the guidewire and dilator used. Triple-lumen catheter placed over the guidewire guidewire removed and discarded. All 3 ports were triple-lumen catheter flushed and aspirated appropriately. Line sutured in place. Dressings applied. Local anesthetic was used throughout the procedure patient's comfort. Line okay to use. Will monitor. Ortiz Fleming Nov 08, 2019 14:17
--- NOTE | 2019-11-08 14:19 | Operative Note - PDOC ---
Operative Note Operative Note Pre-op Diagnosis: Hemorrhage Sepsis Respiratory insufficiency Procedure: Hemostasis of left nostril hemorrhage emergency Post-op Diagnosis: same as pre-op Surgeon: Ortiz Fleming MD Anesthesia: local Specimen: none Complications: none Condition: unstable Estimated Blood Loss: volume - 500 Drains: none Implant(s) used?: No Indications for Procedure 54-year-old female currently in the intensive care unit identified to have severe hemorrhage from the left nostril. Canister identified with proximately 500 cc of blood continues active hemorrhage identified surgery called to eval and assist with care. I emergently came in from home to evaluate patient intensive care unit. Patient seen patient by chart reviewed. Description of Procedure After deep suctioning of both nares as well as the oropharynx was identified that bleeding was site coming from the left nostril posterior. After ensuring patient is comfortable and stable ET tube in place airway stable and all blood suction and location identified a Rhino Rocket was placed into the left nostril and advanced appropriately. Both balloons of the rocket were insufflated appropriately. Patient was monitored for the next 30 minutes and good hemostasis identified. Management and care will be provided ongoing to ensure no active hemorrhage and balloon packing stable and appropriate. Thank you let me participate in patient's care Ortiz Fleming Nov 08, 2019 14:19
--- NOTE | 2019-11-08 14:20 | Emergency Room Report ---
Physical Exam Vital Signs Date Time Temp Pulse Resp B/P (MAP) Pulse Ox O2 Delivery O2 Flow Rate FiO2 11/06/19 21:46 98.8 100 18 150/100 (117) 96 Nasal Cannula 4.0 11/08/19 10:36 100 Sp02 EP Interpretation: abnormal - 80% room air General Appearance: lethargic, obese Head: normocephalic, atraumatic Eyes: bilateral eye PERRL, bilateral eye EOMI ENT: no angioedema, other - Anterior epistaxis Neck: full range of motion, supple, no meningismus, no bony tend Respiratory: respiratory distress - Severe, accessory muscle use, crackles, rales, rhonchi Cardiovascular #1: no edema, no gallop, no JVD, no murmur, irregularly irregular - Tachycardic Gastrointestinal: normal bowel sounds, non tender, soft, no mass, no organomegaly, non-distended, no guarding, no hernia, no pulsatile mass, no rebound Genitourinary: no CVA tenderness Neurologic: motor strength/tone normal, mechanical tech III-XII nml as tested, oriented x3 , sensory intact, responsive Psychiatric: mood/affect normal Lymphatic: normal inspection, no adenopathy Medical Decision Making Diagnostic Impression: Primary Impression: 2019 novel coronavirus disease (COVID-19) Additional Impressions: Diabetes CHF (congestive heart failure) Multifocal pneumonia Fluid overload Epistaxis Afib Hypoxia ER Course Procedure note Cardiopulmonary Resuscitation by me: See code documentation for specific details. ACLS and BLS were performed with high quality chest compressions and minimal interruptions. Any reversible causes were assessed and treated. Procedure Note: Endotracheal Intubation by me: Pre assessment performed. See preceding note for details. Pre-oxygenation performed with 100% oxygen RSI: Performed w/o complication or hypoxic events. Medications as ordered. Emergency Endotracheal Intubation: Consent unable to be obtained due to emergent nature of procedure and airway assessment this patient was prepared for endotracheal intubation with preoxygenation and airway positioning. The patient underwent rapid sequence induction and endotracheal intubation utilizing direct visualization laryngoscopy. The endotracheal tube was placed between the vocal cords and placement was confirmed with fogging of the tube, end title CO2, and equal bilateral chest rise as well as absence of borborygmi over the epigastrium. Chest x-ray was obtained for final confirmation. There were no complications. Blade: MAC 4 GLIDESCOPE ET Tube: 7.5 cm Depth: 24 cm at the lip Complications: No hypoxic events or bradycardia Intubation confirmed by colorimetric CO2, equal breath sounds, quiet over the stomach. Chest X-ray: No acute disease. Normal heart size. Mediastinum normal. No infiltrate. No pneumothorax. ETT in appropriate position above Annemarie. OG/NG tube in appropriate position Indication: ETT placement confirmation Impression: Appropriately positioned ETT Views: 1 view The X-rays were independently viewed by me and interpreted contemporaneously by me. Critical Care Statement Organ systems at risk include: Cardiac, circulatory, pulmonary Critical care performed for 35 minutes. Time is exclusive of separately billable procedures. Time includes: direct patient care, continuous monitoring and multiple patient reassessment, coordination of patient care, review of patient's medical records , medical consultation, family consultation regarding treatment decisions and documentation of patient care. Last Vital Signs Date Time Temp Pulse Resp B/P (MAP) Pulse Ox O2 Delivery O2 Flow Rate FiO2 11/08/19 12:32 27 131/74 Mechanical Ventilator 100 11/08/19 12:30 111 97 11/08/19 12:00 97.7 11/08/19 10:40 60.0 Disposition: ADMITTED INPATIENT Admit Decision Time: 14:20 Condition: Critical Referrals: NOT CHOSEN IPA/,REFERRING (PCP) Whitney Rubalcava D.O. Nov 08, 2019 14:20
[2019-11-08] MEDS: Piperacillin/Tazobactam 3.375 GM in NS 110 ML IVPB SCH ×2 (14:45→21:47)
--- NOTE | 2019-11-08 16:19 | Cardiac Electrophysiology PN ---
Assessment/Plan Assessment/Plan 1. Atrial fibrillation. The patient is on Lovenox 110 mg subcutaneous b.i.d. and metoprolol 25 mg b.i.d. for better rate control and management of hypertension. EF 55% on echo. DC lovenox 2. COVID positive pneumonia. The patient is already on remdesivir and dexamethasone. 3. Diabetes, on insulin. 4. Respiratory failure on the Vent. 5. Massive nasal bleed. Now airway is protected. DC Lovenox for now [employer] Subjective Subjective Had bleeding profusely from nose and mouth and was intubated to protect the airway. In ICU off pressors. Dr Fleming placed a rapid Rhino in left nostril In atrial fib on Lovenox 110 bid Objective Last 24 Hour Vital Signs Date Time Temp Pulse Resp B/P (MAP) Pulse Ox O2 Delivery O2 Flow Rate FiO2 11/08/19 15:27 103 18 60 11/08/19 12:32 27 131/74 Mechanical Ventilator 100 11/08/19 12:31 27 131/74 Mechanical Ventilator 100 11/08/19 12:30 111 27 115/73 (87) 97 11/08/19 12:15 113 26 121/76 (91) 97 11/08/19 12:07 26 167/83 Mechanical Ventilator 100 11/08/19 12:00 Mechanical Ventilator 11/08/19 12:00 97.7 120 25 167/83 (111) 97 11/08/19 10:40 19 21 100 Mechanical Ventilator 60.0 100 11/08/19 10:36 112 19 100 11/08/19 09:45 112 28 78 11/08/19 09:00 19 118/85 11/08/19 08:58 112 11/08/19 08:00 Venturi Mask 14.0 11/08/19 08:00 97.0 112 21 118/85 (96) 94 11/08/19 04:20 Venturi Mask 11/08/19 04:00 97.2 109 22 127/66 (86) 96 11/08/19 04:00 97 11/08/19 04:00 Nasal Cannula 4.0 11/08/19 00:00 Nasal Cannula 4.0 11/07/19 23:57 97.2 96 22 146/74 (98) 95 11/07/19 21:36 78 123/59 11/07/19 21:32 78 123/59 (80) 97 11/07/19 20:00 97 11/07/19 20:00 97.7 91 22 120/91 (101) 96 11/07/19 20:00 Nasal Cannula 4.0 Intake and Output 11/07/19 11/08/19 19:00 07:00 Intake Total 1000 ml 1600 ml Output Total 500 ml 400 ml Balance 500 ml 1200 ml Intake Oral 1000 ml 1600 ml Output Urine Total 500 ml 400 ml Laboratory Tests Test 11/08/19 07:40 11/08/19 07:44 11/08/19 07:59 11/08/19 10:00 White Blood Count 12.1 K/UL (4.8-10.8) H Red Blood Count 5.11 M/UL (4.20-5.40) Hemoglobin 13.9 G/DL (12.0-16.0) Hematocrit 45.8 % (37.0-47.0) Mean Corpuscular Volume 90 FL (80-99) Mean Corpuscular Hemoglobin 27.1 PG (27.0-31.0) Mean Corpuscular Hemoglobin Concent 30.3 G/DL (32.0-36.0) L Red Cell Distribution Width 16.4 % (11.6-14.8) H Platelet Count 247 K/UL (150-450) Mean Platelet Volume 6.3 FL (6.5-10.1) L Neutrophils (%) (Auto) 83.2 % (45.0-75.0) H Lymphocytes (%) (Auto) 7.3 % (20.0-45.0) L Monocytes (%) (Auto) 8.7 % (1.0-10.0) Eosinophils (%) (Auto) 0.1 % (0.0-3.0) Basophils (%) (Auto) 0.7 % (0.0-2.0) Sodium Level 135 MMOL/L (136-145) L Potassium Level 4.7 MMOL/L (3.5-5.1) Chloride Level 100 MMOL/L (98-107) Carbon Dioxide Level 26 MMOL/L (21-32) Anion Gap 9 mmol/L (5-15) Blood Urea Nitrogen 25 mg/dL (7-18) H Creatinine 1.3 MG/DL (0.55-1.30) Estimat Glomerular Filtration Rate 42.8 mL/min (>60) Glucose Level 237 MG/DL (74-106) H Calcium Level 8.4 MG/DL (8.5-10.1) L Total Bilirubin 1.6 MG/DL (0.2-1.0) H Direct Bilirubin 0.9 MG/DL (0.0-0.3) H Aspartate Amino Transf (AST/SGOT) 57 U/L (15-37) H Alanine Aminotransferase (ALT/SGPT) 49 U/L (12-78) Alkaline Phosphatase 281 U/L (46-116) H Troponin I 0.097 ng/mL (0.000-0.056) Pro-B-Type Natriuretic Peptide 3898 pg/mL (0-125) H Total Protein 8.0 G/DL (6.4-8.2) Albumin 2.5 G/DL (3.4-5.0) L Globulin 5.5 g/dL Albumin/Globulin Ratio 0.5 (1.0-2.7) L Triglycerides Level 82 MG/DL (30-150) 83 MG/DL (30-150) Cholesterol Level 105 MG/DL (< 200) LDL Cholesterol 70 mg/dL (<100) HDL Cholesterol 30 MG/DL (40-60) L Cholesterol/HDL Ratio 3.5 (3.3-4.4) Thyroid Stimulating Hormone (TSH) 6.866 uiU/mL (0.358-3.740) Free Thyroxine 0.85 NG/DL (0.76-1.46) Arterial Blood pH 7.379 (7.350-7.450) Arterial Blood Partial Pressure CO2 41.8 mmHg (35.0-45.0) Arterial Blood Partial Pressure O2 67.6 mmHg (75.0-100.0) L Arterial Blood HCO3 24.1 mmol/L (22.0-26.0) Arterial Blood Oxygen Saturation 93.3 % (95-100) L Arterial Blood Base Excess -1.0 (-2-2) Steve Test Positive Prothrombin Time 14.1 SEC (9.30-11.50) H Prothromb Time International Ratio 1.3 (0.9-1.1) H Test 11/08/19 11:25 Arterial Blood pH 7.229 (7.350-7.450) Arterial Blood Partial Pressure CO2 65.8 mmHg (35.0-45.0) *H Arterial Blood Partial Pressure O2 175.9 mmHg (75.0-100.0) H Arterial Blood HCO3 26.9 mmol/L (22.0-26.0) H Arterial Blood Oxygen Saturation 98.7 % (95-100) Arterial Blood Base Excess -1.9 (-2-2) Steve Test Positive Microbiology Date/Time Source Procedure Growth Status 11/06/19 22:20 Blood Blood Culture - Preliminary NO GROWTH AFTER 24 HOURS Resulted 11/06/19 22:05 Blood Blood Culture - Preliminary NO GROWTH AFTER 24 HOURS Resulted 11/06/19 22:45 Nasopharynx SARS-CoV-2 RdRp Gene Assay - Final Complete Objective HEAD AND NECK: Shows no JVD. Rhinorocket in her left Nostril Orally intubated LUNGS: Coarse rhonchi. CARDIOVASCULAR: Irregularly irregular. S1 and S2 with no gallop or murmur. ABDOMEN: Soft. EXTREMITIES: No pitting edema. Gabe Snell MD Nov 08, 2019 16:19
[2019-11-08 18:33] LABS: HEMATOCRIT 32.6 % (37.0-47.0); HEMOGLOBIN 9.9 G/DL (12.0-16.0); MEAN CORPUSCULAR VOLUME 90 FL (80-99); PLATELET COUNT 204 K/UL (150-450); RED BLOOD COUNT 3.63 M/UL (4.20-5.40); RED CELL DISTRIBUTION WIDTH 16.8 % (11.6-14.8); WHITE BLOOD COUNT 14.7 K/UL (4.8-10.8)
[2019-11-08 18:35] LABS: BASOPHILS % (AUTO) 0.4 % (0.0-2.0); LYMPHOCYTES % (AUTO) 2.7 % (20.0-45.0); MONOCYTES % (AUTO) 3.5 % (1.0-10.0); NEUTROPHILS % (AUTO) 93.3 % (45.0-75.0)
[2019-11-08 18:40] LABS: ANION GAP 3 mmol/L (5-15); BLOOD UREA NITROGEN 35 mg/dL (7-18); CARBON DIOXIDE 31 MMOL/L (21-32); CHLORIDE 104 MMOL/L (98-107); CREATININE 1.1 MG/DL (0.55-1.30); POTASSIUM 5.1 MMOL/L (3.5-5.1); SODIUM 138 MMOL/L (136-145)
[2019-11-08 18:41] LABS: INR 1.3 (0.9-1.1)
[2019-11-08 18:51] LABS: ALANINE AMINOTRANSFERASE 37 U/L (12-78); ALBUMIN 1.9 G/DL (3.4-5.0); ALBUMIN/GLOBULIN RATIO 0.5 (1.0-2.7); ALKALINE PHOSPHATASE 199 U/L (46-116); ASPARTATE AMINO TRANSFERASE 41 U/L (15-37); BILIRUBIN,TOTAL 1.2 MG/DL (0.2-1.0)
[2019-11-08 18:54] LABS: BILIRUBIN,DIRECT 0.8 MG/DL (0.0-0.3)
[2019-11-08] MEDS ORDERED: Enoxaparin 120 mg inj SUBQ SCH (21:00)
[2019-11-08] MEDS: Dyna-Hex 2% Top Sol 2oz TOPIC SCH (21:47)
[2019-11-09] VITALS (44 sets, daily range): BP systolic 97–159; BP diastolic 40–90
[2019-11-09] MEDS: D5NS 1,000 ML IV SCH ×2 (01:28→17:00)
[2019-11-09 04:35] LABS: HEMATOCRIT 31.4 % (37.0-47.0); HEMOGLOBIN 9.5 G/DL (12.0-16.0); MEAN CORPUSCULAR VOLUME 89 FL (80-99); PLATELET COUNT 197 K/UL (150-450); RED BLOOD COUNT 3.51 M/UL (4.20-5.40); RED CELL DISTRIBUTION WIDTH 16.2 % (11.6-14.8); WHITE BLOOD COUNT 10.8 K/UL (4.8-10.8)
[2019-11-09 05:01] LABS: ALANINE AMINOTRANSFERASE 34 U/L (12-78); ALBUMIN/GLOBULIN RATIO 0.5 (1.0-2.7); ALKALINE PHOSPHATASE 191 U/L (46-116); ANION GAP 5 mmol/L (5-15); ASPARTATE AMINO TRANSFERASE 41 U/L (15-37); BILIRUBIN,DIRECT 0.8 MG/DL (0.0-0.3); BILIRUBIN,TOTAL 1.3 MG/DL (0.2-1.0); BLOOD UREA NITROGEN 39 mg/dL (7-18); CALCIUM 8.2 MG/DL (8.5-10.1); CARBON DIOXIDE 29 MMOL/L (21-32); CHLORIDE 105 MMOL/L (98-107); CREATININE 1.2 MG/DL (0.55-1.30); POTASSIUM 5.1 MMOL/L (3.5-5.1); SODIUM 139 MMOL/L (136-145)
[2019-11-09] MEDS: Piperacillin/Tazobactam 3.375 GM in NS 110 ML IVPB SCH ×3 (05:40→21:12)
[2019-11-09] MEDS: NovoLOG Insulin Flexpen SUBQ SCH ×4 (06:03→21:34)
[2019-11-09] MEDS: fentaNYL 2500mcg/NS 250ml 250 ML IV SCH (07:03)
[2019-11-09] MEDS: dexAMETHasone 10mg/ml Inj IV SCH (08:11)
--- NOTE | 2019-11-09 09:10 | General Progress Note ---
Assessment/Plan Problem List: (1) Afib ICD Codes: I48.91 - Unspecified atrial fibrillation SNOMED: 37184199 (2) Epistaxis ICD Codes: R04.0 - Epistaxis SNOMED: 717210856 (3) Weak ICD Codes: R53.1 - Weakness SNOMED: 10285566 (4) UTI (urinary tract infection) ICD Codes: N39.0 - Urinary tract infection, site not specified SNOMED: 12127925 (5) Diabetes ICD Codes: E11.9 - Type 2 diabetes mellitus without complications SNOMED: 12494914 (6) CHF (congestive heart failure) ICD Codes: I50.9 - Heart failure, unspecified SNOMED: 76545082 (7) Multifocal pneumonia ICD Codes: J18.9 - Pneumonia, unspecified organism SNOMED: 478776082 (8) 2019 novel coronavirus disease (COVID-19) ICD Codes: U07.1 - COVID-19 SNOMED: 273427073 (9) Respiratory failure ICD Codes: J96.90 - Respiratory failure, unspecified, unspecified whether with hypoxia or hypercapnia SNOMED: 710630537 Status: unchanged Assessment/Plan: vent abx bp bs control cbc bmp am Subjective Constitutional: Reports: weakness Allergies: Coded Allergies: No Known Allergies (Unverified , 11/06/19) All Systems: reviewed and negative except above Subjective intubated sedated in icu Objective Last 24 Hour Vital Signs Date Time Temp Pulse Resp B/P (MAP) Pulse Ox O2 Delivery O2 Flow Rate FiO2 11/09/19 08:38 99 99/40 11/09/19 08:00 98.9 99 17 99/40 (59) 96 11/09/19 08:00 Mechanical Ventilator 11/09/19 08:00 50 11/09/19 07:42 101 21 60 11/09/19 07:30 101 14 97/59 (72) 98 11/09/19 07:03 17 106/57 Mechanical Ventilator 60 11/09/19 07:00 101 19 102/50 (67) 98 11/09/19 07:00 17 102/50 Mechanical Ventilator 60 11/09/19 06:00 20 109/60 Mechanical Ventilator 60 11/09/19 06:00 102 17 109/60 (76) 99 11/09/19 05:30 100 20 109/55 (73) 98 11/09/19 05:00 106 19 112/42 (65) 98 11/09/19 05:00 20 112/42 Mechanical Ventilator 60 11/09/19 04:30 104 19 110/40 (63) 99 11/09/19 04:00 117 11/09/19 04:00 20 118/43 Mechanical Ventilator 99 11/09/19 04:00 99.1 102 18 118/43 (68) 99 11/09/19 04:00 Mechanical Ventilator 11/09/19 04:00 60 11/09/19 03:30 106 20 121/82 (95) 98 11/09/19 03:15 105 20 60 11/09/19 03:00 103 20 113/52 (72) 98 11/09/19 03:00 20 113/52 Mechanical Ventilator 98 11/09/19 02:30 104 18 114/48 (70) 98 11/09/19 02:00 18 101/50 Mechanical Ventilator 60 11/09/19 02:00 104 18 101/50 (67) 98 11/09/19 01:30 101 18 109/60 (76) 98 11/09/19 01:00 18 108/50 Mechanical Ventilator 60 11/09/19 01:00 103 18 108/50 (69) 98 11/09/19 00:30 104 19 109/44 (65) 98 11/09/19 00:00 60 11/09/19 00:00 19 112/48 Mechanical Ventilator 60 11/09/19 00:00 Mechanical Ventilator 11/09/19 00:00 107 11/09/19 00:00 99.0 104 19 112/48 (69) 98 11/08/19 23:38 101 20 60 11/08/19 23:30 104 19 117/47 (70) 99 11/08/19 23:00 103 15 117/48 (71) 99 20 23:00 15 117/48 Mechanical Ventilator 60 11/08/19 22:30 107 17 115/42 (66) 99 11/08/19 22:00 102 19 117/44 (68) 99 20 22:00 19 117/44 Mechanical Ventilator 60 11/08/19 21:30 105 15 103/51 (68) 99 11/08/19 21:00 105 14 107/60 (76) 99 7/19/20 21:00 105 95/58 720 21:00 14 107/60 Mechanical Ventilator 60 720 20:30 105 15 95/58 (70) 99 720 20:00 98.7 102 13 105/49 (67) 99 720 20:00 Mechanical Ventilator 720 20:00 60 7/19/20 20:00 13 105/49 Mechanical Ventilator 60 720 20:00 103 7/ 19:30 107 18 94/60 (71) 99 720 19:30 98 19 60 720 19:00 103 12 103/67 (79) 99 720 19:00 12 103/67 Mechanical Ventilator 60 11/08/19 18:00 19 106/64 Mechanical Ventilator 60 11/08/19 18:00 101 19 106/64 (78) 99 20 17:00 18 103/67 Mechanical Ventilator 60 20 17:00 101 18 103/67 (79) 100 11/08/19 16:00 98.4 102 16 104/62 (76) 100 11/08/19 16:00 104 11/08/19 16:00 60 11/08/19 16:00 Mechanical Ventilator 11/08/19 16:00 16 104/62 Mechanical Ventilator 60 11/08/19 15:27 103 18 60 7 15:00 20 103/78 Mechanical Ventilator 60 11/08/19 15:00 102 20 104/73 (83) 100 11/08/19 14:00 103 27 104/73 (83) 99 11/08/19 14:00 26 104/73 Mechanical Ventilator 60 11/08/19 13:30 103 27 98/64 (75) 98 11/08/19 13:00 106 27 94/66 (75) 97 7/20 12:45 108 26 98/66 (77) 97 11/07/20 12:32 27 131/74 Mechanical Ventilator 100 20 12:31 27 131/74 Mechanical Ventilator 100 20 12:30 111 27 115/73 (87) 97 7 12:15 113 26 121/76 (91) 97 11/08/19 12:07 26 167/83 Mechanical Ventilator 100 11/08/19 12:00 Mechanical Ventilator 7 12:00 97.7 120 25 167/83 (111) 97 11/08/19 12:00 60 11/08/19 12:00 122 11/08/19 10:45 100 11/08/19 10:40 19 21 100 Mechanical Ventilator 60.0 100 11/08/19 10:36 112 19 100 11/08/19 09:45 112 28 78 11/08/19 09:45 112 28 78 Intake and Output 11/08/19 11/09/19 19:00 07:00 Intake Total 447.000 ml 613.5 ml Output Total 1020 ml 4920 ml Balance -573.000 ml -4306.5 ml IV Total 447.000 ml 613.5 ml Output Urine Total 320 ml 720 ml Other 700 ml 4200 ml Laboratory Tests 11/08/19 10:00: Prothrombin Time 14.1H, Prothromb Time International Ratio 1.3H 11/08/19 11:25: Arterial Blood pH 7.229*L, Arterial Blood Partial Pressure CO2 65.8*H, Arterial Blood Partial Pressure O2 175.9H, Arterial Blood HCO3 26.9H, Arterial Blood Oxygen Saturation 98.7, Arterial Blood Base Excess -1.9, Steve Test Positive 11/08/19 17:30: POC Whole Blood Glucose 254H 11/08/19 18:00: Prothrombin Time 14.4H, Prothromb Time International Ratio 1.3H, White Blood Count 14.7H, Red Blood Count 3.63L, Hemoglobin 9.9L, Hematocrit 32.6L, Mean Corpuscular Volume 90, Mean Corpuscular Hemoglobin 27.1, Mean Corpuscular Hemoglobin Concent 30.3L, Red Cell Distribution Width 16.8H, Platelet Count 204 , Mean Platelet Volume 6.1L, Neutrophils (%) (Auto) 93.3H, Lymphocytes (%) (Auto ) 2.7L, Monocytes (%) (Auto) 3.5, Eosinophils (%) (Auto) 0.0, Basophils (%) ( Auto) 0.4, Activated Partial Thromboplast Time 31, Sodium Level 138, Potassium Level 5.1, Chloride Level 104, Carbon Dioxide Level 31, Anion Gap 3L, Blood Urea Nitrogen 35H, Creatinine 1.1, Estimat Glomerular Filtration Rate 51.9, Glucose Level 243H, Calcium Level 8.0L, Total Bilirubin 1.2H, Direct Bilirubin 0.8H, Aspartate Amino Transf (AST/SGOT) 41H, Alanine Aminotransferase (ALT/SGPT ) 37, Alkaline Phosphatase 199H, Total Protein 6.1L, Albumin 1.9L, Globulin 4.2 , Albumin/Globulin Ratio 0.5L 11/09/19 03:20: White Blood Count 10.8, Red Blood Count 3.51L, Hemoglobin 9.5L, Hematocrit 31.4L , Mean Corpuscular Volume 89, Mean Corpuscular Hemoglobin 27.1, Mean Corpuscular Hemoglobin Concent 30.2L, Red Cell Distribution Width 16.2H, Platelet Count 197, Mean Platelet Volume 6.6, Neutrophils (%) (Auto) , Lymphocytes (%) (Auto) , Monocytes (%) (Auto) , Eosinophils (%) (Auto) , Basophils (%) (Auto) , Sodium Level 139, Potassium Level 5.1, Chloride Level 105 , Carbon Dioxide Level 29, Anion Gap 5, Blood Urea Nitrogen 39H, Creatinine 1.2 , Estimat Glomerular Filtration Rate 47.0, Glucose Level 255H, Lactic Acid Level 2.50H, Calcium Level 8.2L, Total Bilirubin 1.3H, Direct Bilirubin 0.8H, Aspartate Amino Transf (AST/SGOT) 41H, Alanine Aminotransferase (ALT/SGPT) 34, Alkaline Phosphatase 191H, Total Protein 6.2L, Albumin 2.0L, Globulin 4.2, Albumin/Globulin Ratio 0.5L 11/09/19 05:56: POC Whole Blood Glucose [Pending] Height (Feet): 5 Height (Inches): 3.00 Weight (Pounds): 275 General Appearance: lethargic EENT: normal ENT inspection Neck: normal alignment Cardiovascular: normal rate, regular rhythm Respiratory/Chest: no respiratory distress, no accessory muscle use Extremities: normal inspection Skin: normal pigmentation Ramón Cartermy QueKanwal DO Nov 09, 2019 09:10
--- NOTE | 2019-11-09 10:46 | Infectious Diseases Prog Note ---
Assessment/Plan Assessment/Plan antibiotics : zosyn, remdesivir, dexamethasone A 1. COVID 19 pneumonia on 100 percent Fi O2, saturation 100 percent 2. respiratory failure 3. leucocytosis improving 4. diabetes mellitus 5. hypertension P 1. continue remdesivir day 3 2. continue dexamethasone day 4 3. 1 dose ivermectin today patients daughter Karey consents to it 4. continue zosyn 5. will follow up cultures 6. continue isolation Subjective ROS Limited/Unobtainable: Yes Allergies: Coded Allergies: No Known Allergies (Unverified , 11/06/19) Objective Last 24 Hour Vital Signs Date Time Temp Pulse Resp B/P (MAP) Pulse Ox O2 Delivery O2 Flow Rate FiO2 11/09/19 10:00 101 16 133/73 (93) 96 11/09/19 10:00 18 133/73 Mechanical Ventilator 50 11/09/19 09:30 98 18 111/50 (70) 96 11/09/19 09:00 18 111/50 Mechanical Ventilator 50 11/09/19 09:00 99 14 107/49 (68) 96 11/09/19 08:38 99 99/40 11/09/19 08:30 95 20 104/52 (69) 97 11/09/19 08:00 98.9 99 17 99/40 (59) 96 11/09/19 08:00 Mechanical Ventilator 11/09/19 08:00 100 11/09/19 08:00 17 104/52 Mechanical Ventilator 50 11/09/19 08:00 50 11/09/19 07:42 101 21 60 11/09/19 07:30 101 14 97/59 (72) 98 11/09/19 07:03 17 106/57 Mechanical Ventilator 60 11/09/19 07:00 101 19 102/50 (67) 98 11/09/19 07:00 17 102/50 Mechanical Ventilator 60 11/09/19 06:00 20 109/60 Mechanical Ventilator 60 11/09/19 06:00 102 17 109/60 (76) 99 11/09/19 05:30 100 20 109/55 (73) 98 11/09/19 05:00 106 19 112/42 (65) 98 11/09/19 05:00 20 112/42 Mechanical Ventilator 60 11/09/19 04:30 104 19 110/40 (63) 99 11/09/19 04:00 117 7/20 04:00 20 118/43 Mechanical Ventilator 99 11/09/19 04:00 99.1 102 18 118/43 (68) 99 11/09/19 04:00 Mechanical Ventilator 11/09/19 04:00 60 11/09/19 03:30 106 20 121/82 (95) 98 11/09/19 03:15 105 20 60 11/09/19 03:00 103 20 113/52 (72) 98 11/09/19 03:00 20 113/52 Mechanical Ventilator 98 11/09/19 02:30 104 18 114/48 (70) 98 11/09/19 02:00 18 101/50 Mechanical Ventilator 60 11/09/19 02:00 104 18 101/50 (67) 98 11/09/19 01:30 101 18 109/60 (76) 98 11/09/19 01:00 18 108/50 Mechanical Ventilator 60 11/09/19 01:00 103 18 108/50 (69) 98 11/09/19 00:30 104 19 109/44 (65) 98 11/09/19 00:00 60 11/09/19 00:00 19 112/48 Mechanical Ventilator 60 11/09/19 00:00 Mechanical Ventilator 11/09/19 00:00 107 11/09/19 00:00 99.0 104 19 112/48 (69) 98 11/08/19 23:38 101 20 60 11/08/19 23:30 104 19 117/47 (70) 99 11/08/19 23:00 103 15 117/48 (71) 99 11/08/19 23:00 15 117/48 Mechanical Ventilator 60 11/08/19 22:30 107 17 115/42 (66) 99 20 22:00 102 19 117/44 (68) 99 20 22:00 19 117/44 Mechanical Ventilator 60 11/08/19 21:30 105 15 103/51 (68) 99 11/08/19 21:00 105 14 107/60 (76) 99 20 21:00 105 95/58 720 21:00 14 107/60 Mechanical Ventilator 60 20 20:30 105 15 95/58 (70) 99 11/08/19 20:00 98.7 102 13 105/49 (67) 99 20 20:00 Mechanical Ventilator 720 20:00 60 720 20:00 13 105/49 Mechanical Ventilator 60 20 20:00 103 7/ 19:30 107 18 94/60 (71) 99 720 19:30 98 19 60 720 19:00 103 12 103/67 (79) 99 20 19:00 12 103/67 Mechanical Ventilator 60 11/08/19 18:00 19 106/64 Mechanical Ventilator 60 11/08/19 18:00 101 19 106/64 (78) 99 20 17:00 18 103/67 Mechanical Ventilator 60 11/08/19 17:00 101 18 103/67 (79) 100 11/08/19 16:00 98.4 102 16 104/62 (76) 100 11/08/19 16:00 104 11/08/19 16:00 60 11/08/19 16:00 Mechanical Ventilator 11/08/19 16:00 16 104/62 Mechanical Ventilator 60 11/08/19 15:27 103 18 60 11/08/19 15:00 20 103/78 Mechanical Ventilator 60 11/08/19 15:00 102 20 104/73 (83) 100 11/08/19 14:00 103 27 104/73 (83) 99 11/08/19 14:00 26 104/73 Mechanical Ventilator 60 11/08/19 13:30 103 27 98/64 (75) 98 11/08/19 13:00 106 27 94/66 (75) 97 11/08/19 12:45 108 26 98/66 (77) 97 11/08/19 12:32 27 131/74 Mechanical Ventilator 100 11/08/19 12:31 27 131/74 Mechanical Ventilator 100 11/08/19 12:30 111 27 115/73 (87) 97 11/08/19 12:15 113 26 121/76 (91) 97 11/08/19 12:07 26 167/83 Mechanical Ventilator 100 11/08/19 12:00 Mechanical Ventilator 11/08/19 12:00 97.7 120 25 167/83 (111) 97 11/08/19 12:00 60 11/08/19 12:00 122 11/08/19 10:45 100 11/08/19 10:40 19 21 100 Mechanical Ventilator 60.0 100 Height (Feet): 5 Height (Inches): 3.00 Weight (Pounds): 275 HEENT: other - intubated Microbiology Date/Time Source Procedure Growth Status 11/06/19 22:20 Blood Blood Culture - Preliminary NO GROWTH AFTER 48 HOURS Resulted 11/06/19 22:05 Blood Blood Culture - Preliminary NO GROWTH AFTER 48 HOURS Resulted 11/06/19 22:45 Nasopharynx SARS-CoV-2 RdRp Gene Assay - Final Complete Laboratory Tests Test 11/08/19 11:25 11/08/19 17:30 11/08/19 18:00 11/09/19 03:20 Arterial Blood pH 7.229 (7.350-7.450) Arterial Blood Partial Pressure CO2 65.8 mmHg (35.0-45.0) *H Arterial Blood Partial Pressure O2 175.9 mmHg (75.0-100.0) H Arterial Blood HCO3 26.9 mmol/L (22.0-26.0) H Arterial Blood Oxygen Saturation 98.7 % (95-100) Arterial Blood Base Excess -1.9 (-2-2) Steve Test Positive POC Whole Blood Glucose 254 MG/DL (74-106) H White Blood Count 14.7 K/UL (4.8-10.8) H 10.8 K/UL (4.8-10.8) Red Blood Count 3.63 M/UL (4.20-5.40) L 3.51 M/UL (4.20-5.40) L Hemoglobin 9.9 G/DL (12.0-16.0) L 9.5 G/DL (12.0-16.0) L Hematocrit 32.6 % (37.0-47.0) L 31.4 % (37.0-47.0) L Mean Corpuscular Volume 90 FL (80-99) 89 FL (80-99) Mean Corpuscular Hemoglobin 27.1 PG (27.0-31.0) 27.1 PG (27.0-31.0) Mean Corpuscular Hemoglobin Concent 30.3 G/DL (32.0-36.0) L 30.2 G/DL (32.0-36.0) L Red Cell Distribution Width 16.8 % (11.6-14.8) H 16.2 % (11.6-14.8) H Platelet Count 204 K/UL (150-450) 197 K/UL (150-450) Mean Platelet Volume 6.1 FL (6.5-10.1) L 6.6 FL (6.5-10.1) Neutrophils (%) (Auto) 93.3 % (45.0-75.0) H % (45.0-75.0) Lymphocytes (%) (Auto) 2.7 % (20.0-45.0) L % (20.0-45.0) Monocytes (%) (Auto) 3.5 % (1.0-10.0) % (1.0-10.0) Eosinophils (%) (Auto) 0.0 % (0.0-3.0) % (0.0-3.0) Basophils (%) (Auto) 0.4 % (0.0-2.0) % (0.0-2.0) Prothrombin Time 14.4 SEC (9.30-11.50) H Prothromb Time International Ratio 1.3 (0.9-1.1) H Activated Partial Thromboplast Time 31 SEC (23-33) Sodium Level 138 MMOL/L (136-145) 139 MMOL/L (136-145) Potassium Level 5.1 MMOL/L (3.5-5.1) 5.1 MMOL/L (3.5-5.1) Chloride Level 104 MMOL/L (98-107) 105 MMOL/L (98-107) Carbon Dioxide Level 31 MMOL/L (21-32) 29 MMOL/L (21-32) Anion Gap 3 mmol/L (5-15) L 5 mmol/L (5-15) Blood Urea Nitrogen 35 mg/dL (7-18) H 39 mg/dL (7-18) H Creatinine 1.1 MG/DL (0.55-1.30) 1.2 MG/DL (0.55-1.30) Estimat Glomerular Filtration Rate 51.9 mL/min (>60) 47.0 mL/min (>60) Glucose Level 243 MG/DL (74-106) H 255 MG/DL (74-106) H Calcium Level 8.0 MG/DL (8.5-10.1) L 8.2 MG/DL (8.5-10.1) L Total Bilirubin 1.2 MG/DL (0.2-1.0) H 1.3 MG/DL (0.2-1.0) H Direct Bilirubin 0.8 MG/DL (0.0-0.3) H 0.8 MG/DL (0.0-0.3) H Aspartate Amino Transf (AST/SGOT) 41 U/L (15-37) H 41 U/L (15-37) H Alanine Aminotransferase (ALT/SGPT) 37 U/L (12-78) 34 U/L (12-78) Alkaline Phosphatase 199 U/L (46-116) H 191 U/L (46-116) H Total Protein 6.1 G/DL (6.4-8.2) L 6.2 G/DL (6.4-8.2) L Albumin 1.9 G/DL (3.4-5.0) L 2.0 G/DL (3.4-5.0) L Globulin 4.2 g/dL 4.2 g/dL Albumin/Globulin Ratio 0.5 (1.0-2.7) L 0.5 (1.0-2.7) L Lactic Acid Level 2.50 mmol/L (0.4-2.0) H Test 11/09/19 05:56 11/09/19 10:00 POC Whole Blood Glucose Pending Lactic Acid Level Pending Current Medications Medications (Trade) Dose Ordered Sig/Robyn Route PRN Reason Start Time Stop Time Status Last Admin Dose Admin Chlorhexidine Gluconate (Miya-Hex 2%) 1 applic DAILY@1999 TOPIC 11/08/19 21:30 02/06/20 21:29 11/08/19 21:47 Dexamethasone Sodium Phosphate (Decadron 10mg/ ml Inj) 6 mg DAILY IV 11/09/19 09:00 02/06/20 09:14 11/09/19 08:11 Dextrose (Dextrose 50%) 25 ml Q30M PRN IV Hypoglycemia 11/08/19 12:30 02/05/20 02:59 Dextrose (Dextrose 50%) 50 ml Q30M PRN IV Hypoglycemia 11/08/19 12:30 02/05/20 02:59 Dextrose/Sodium Chloride 1,000 ml @ 60 mls/hr [id number] IV 11/09/19 01:15 12/09/19 01:14 11/09/19 01:28 Famotidine (Pepcid I.v.) 20 mg Q12HR IVP 11/08/19 15:30 12/08/19 15:29 11/09/19 08:11 Fentanyl Citrate 250 ml @ 0 mls/hr Q24H IV 11/08/19 12:29 02/06/20 12:28 11/09/19 07:03 Insulin Aspart (NovoLOG) BEFORE MEALS AND HS SUBQ 11/08/19 16:30 02/05/20 06:29 11/09/19 06:03 Lorazepam (Ativan 2mg/ml 1ml) 1 mg Q4H PRN IV For Anxiety 11/08/19 12:32 11/15/19 12:31 Metoprolol Tartrate (Lopressor) 25 mg EVERY 12 HOURS ORAL 11/08/19 21:00 02/05/20 20:59 Piperacillin Sod/ Tazobactam Sod 3.375 gm/Sodium Chloride 110 ml @ 27.5 mls/hr EVERY 8 HOURS IVPB 11/08/19 14:00 11/13/19 11:59 11/09/19 05:40 Remdesivir 100 mg/ Sodium Chloride 250 ml @ 250 mls/hr Q24H IV 11/08/19 13:00 11/11/19 13:59 11/08/19 13:06 Rosette Bowman MD Nov 09, 2019 10:46
--- NOTE | 2019-11-09 11:00 | General Progress Note ---
Assessment/Plan Problem List: (1) Respiratory failure ICD Codes: J96.90 - Respiratory failure, unspecified, unspecified whether with hypoxia or hypercapnia SNOMED: 676388207 (2) 2019 novel coronavirus disease (COVID-19) ICD Codes: U07.1 - COVID-19 SNOMED: 882976601 (3) Multifocal pneumonia ICD Codes: J18.9 - Pneumonia, unspecified organism SNOMED: 947710305 (4) Afib ICD Codes: I48.91 - Unspecified atrial fibrillation SNOMED: 38118919 (5) CHF (congestive heart failure) ICD Codes: I50.9 - Heart failure, unspecified SNOMED: 97240286 (6) Diabetes ICD Codes: E11.9 - Type 2 diabetes mellitus without complications SNOMED: 81254133 (7) Fluid overload ICD Codes: E87.70 - Fluid overload, unspecified SNOMED: 08126824 (8) Epistaxis ICD Codes: R04.0 - Epistaxis SNOMED: 374323999 Status: unchanged Assessment/Plan: fu H&H prn blood transfusion pend ENT eval npo for now will fu Subjective ROS Limited/Unobtainable: No Allergies: Coded Allergies: No Known Allergies (Unverified , 11/06/19) Objective Last 24 Hour Vital Signs Date Time Temp Pulse Resp B/P (MAP) Pulse Ox O2 Delivery O2 Flow Rate FiO2 11/09/19 10:00 101 16 133/73 (93) 96 11/09/19 10:00 18 133/73 Mechanical Ventilator 50 11/09/19 09:30 98 18 111/50 (70) 96 11/09/19 09:00 18 111/50 Mechanical Ventilator 50 11/09/19 09:00 99 14 107/49 (68) 96 11/09/19 08:38 99 99/40 11/09/19 08:30 95 20 104/52 (69) 97 11/09/19 08:00 98.9 99 17 99/40 (59) 96 11/09/19 08:00 Mechanical Ventilator 11/09/19 08:00 100 11/09/19 08:00 17 104/52 Mechanical Ventilator 50 11/09/19 08:00 50 11/09/19 07:42 101 21 60 11/09/19 07:30 101 14 97/59 (72) 98 11/09/19 07:03 17 106/57 Mechanical Ventilator 60 11/09/19 07:00 101 19 102/50 (67) 98 11/09/19 07:00 17 102/50 Mechanical Ventilator 60 11/09/19 06:00 20 109/60 Mechanical Ventilator 60 11/09/19 06:00 102 17 109/60 (76) 99 11/09/19 05:30 100 20 109/55 (73) 98 11/09/19 05:00 106 19 112/42 (65) 98 11/09/19 05:00 20 112/42 Mechanical Ventilator 60 11/09/19 04:30 104 19 110/40 (63) 99 11/09/19 04:00 117 11/09/19 04:00 20 118/43 Mechanical Ventilator 99 11/09/19 04:00 99.1 102 18 118/43 (68) 99 11/09/19 04:00 Mechanical Ventilator 11/09/19 04:00 60 11/09/19 03:30 106 20 121/82 (95) 98 11/09/19 03:15 105 20 60 11/09/19 03:00 103 20 113/52 (72) 98 11/09/19 03:00 20 113/52 Mechanical Ventilator 98 11/09/19 02:30 104 18 114/48 (70) 98 11/09/19 02:00 18 101/50 Mechanical Ventilator 60 11/09/19 02:00 104 18 101/50 (67) 98 11/09/19 01:30 101 18 109/60 (76) 98 11/09/19 01:00 18 108/50 Mechanical Ventilator 60 11/09/19 01:00 103 18 108/50 (69) 98 11/09/19 00:30 104 19 109/44 (65) 98 11/09/19 00:00 60 11/09/19 00:00 19 112/48 Mechanical Ventilator 60 11/09/19 00:00 Mechanical Ventilator 11/09/19 00:00 107 11/09/19 00:00 99.0 104 19 112/48 (69) 98 11/08/19 23:38 101 20 60 11/08/19 23:30 104 19 117/47 (70) 99 11/08/19 23:00 103 15 117/48 (71) 99 11/08/19 23:00 15 117/48 Mechanical Ventilator 60 7/19/20 22:30 107 17 115/42 (66) 99 7/19/20 22:00 102 19 117/44 (68) 99 7/19/20 22:00 19 117/44 Mechanical Ventilator 60 7/20 21:30 105 15 103/51 (68) 99 7/19/20 21:00 105 14 107/60 (76) 99 719/20 21:00 105 95/58 7/1920 21:00 14 107/60 Mechanical Ventilator 60 720 20:30 105 15 95/58 (70) 99 71920 20:00 98.7 102 13 105/49 (67) 99 71920 20:00 Mechanical Ventilator 720 20:00 60 720 20:00 13 105/49 Mechanical Ventilator 60 20 20:00 103 7/ 19:30 107 18 94/60 (71) 99 720 19:30 98 19 60 720 19:00 103 12 103/67 (79) 99 720 19:00 12 103/67 Mechanical Ventilator 60 20 18:00 19 106/64 Mechanical Ventilator 60 20 18:00 101 19 106/64 (78) 99 720 17:00 18 103/67 Mechanical Ventilator 60 20 17:00 101 18 103/67 (79) 100 20 16:00 98.4 102 16 104/62 (76) 100 11/08/19 16:00 104 20 16:00 60 20 16:00 Mechanical Ventilator 20 16:00 16 104/62 Mechanical Ventilator 60 20 15:27 103 18 60 7/20 15:00 20 103/78 Mechanical Ventilator 60 20 15:00 102 20 104/73 (83) 100 720 14:00 103 27 104/73 (83) 99 719/20 14:00 26 104/73 Mechanical Ventilator 60 20 13:30 103 27 98/64 (75) 98 7/19/20 13:00 106 27 94/66 (75) 97 720 12:45 108 26 98/66 (77) 97 7/19/20 12:32 27 131/74 Mechanical Ventilator 100 11/08/19 12:31 27 131/74 Mechanical Ventilator 100 11/08/19 12:30 111 27 115/73 (87) 97 11/08/19 12:15 113 26 121/76 (91) 97 11/08/19 12:07 26 167/83 Mechanical Ventilator 100 11/08/19 12:00 Mechanical Ventilator 11/08/19 12:00 97.7 120 25 167/83 (111) 97 11/08/19 12:00 60 11/08/19 12:00 122 Intake and Output 11/08/19 11/09/19 18:59 06:59 Intake Total 414.375 ml 574.125 ml Output Total 1010 ml 4920 ml Balance -595.625 ml -4345.875 ml IV Total 414.375 ml 574.125 ml Output Urine Total 660 ml 720 ml Other 350 ml 4200 ml Laboratory Tests 11/08/19 11:25: Arterial Blood pH 7.229*L, Arterial Blood Partial Pressure CO2 65.8*H, Arterial Blood Partial Pressure O2 175.9H, Arterial Blood HCO3 26.9H, Arterial Blood Oxygen Saturation 98.7, Arterial Blood Base Excess -1.9, Steve Test Positive 11/08/19 17:30: POC Whole Blood Glucose 254H 11/08/19 18:00: White Blood Count 14.7H, Red Blood Count 3.63L, Hemoglobin 9.9L, Hematocrit 32.6L, Mean Corpuscular Volume 90, Mean Corpuscular Hemoglobin 27.1, Mean Corpuscular Hemoglobin Concent 30.3L, Red Cell Distribution Width 16.8H, Platelet Count 204, Mean Platelet Volume 6.1L, Neutrophils (%) (Auto) 93.3H, Lymphocytes (%) (Auto) 2.7L, Monocytes (%) (Auto) 3.5, Eosinophils (%) (Auto) 0.0, Basophils (%) (Auto) 0.4, Prothrombin Time 14.4H, Prothromb Time International Ratio 1.3H, Activated Partial Thromboplast Time 31, Sodium Level 138, Potassium Level 5.1, Chloride Level 104, Carbon Dioxide Level 31, Anion Gap 3L, Blood Urea Nitrogen 35H, Creatinine 1.1, Estimat Glomerular Filtration Rate 51.9, Glucose Level 243H, Calcium Level 8.0L, Total Bilirubin 1.2H, Direct Bilirubin 0.8H, Aspartate Amino Transf (AST/SGOT) 41H, Alanine Aminotransferase (ALT/SGPT) 37, Alkaline Phosphatase 199H, Total Protein 6.1L, Albumin 1.9L, Globulin 4.2, Albumin/Globulin Ratio 0.5L 11/09/19 03:20: White Blood Count 10.8, Red Blood Count 3.51L, Hemoglobin 9.5L, Hematocrit 31.4L , Mean Corpuscular Volume 89, Mean Corpuscular Hemoglobin 27.1, Mean Corpuscular Hemoglobin Concent 30.2L, Red Cell Distribution Width 16.2H, Platelet Count 197, Mean Platelet Volume 6.6, Neutrophils (%) (Auto) , Lymphocytes (%) (Auto) , Monocytes (%) (Auto) , Eosinophils (%) (Auto) , Basophils (%) (Auto) , Sodium Level 139, Potassium Level 5.1, Chloride Level 105 , Carbon Dioxide Level 29, Anion Gap 5, Blood Urea Nitrogen 39H, Creatinine 1.2 , Estimat Glomerular Filtration Rate 47.0, Glucose Level 255H, Calcium Level 8.2L, Total Bilirubin 1.3H, Direct Bilirubin 0.8H, Aspartate Amino Transf (AST/ SGOT) 41H, Alanine Aminotransferase (ALT/SGPT) 34, Alkaline Phosphatase 191H, Total Protein 6.2L, Albumin 2.0L, Globulin 4.2, Albumin/Globulin Ratio 0.5L, Lactic Acid Level 2.50H 11/09/19 05:56: POC Whole Blood Glucose [Pending] 11/09/19 10:00: Lactic Acid Level [Pending] Height (Feet): 5 Height (Inches): 3.00 Weight (Pounds): 275 General Appearance: lethargic EENT: normal ENT inspection Neck: supple Cardiovascular: tachycardia Respiratory/Chest: decreased breath sounds Abdomen: hypoactive bowel sounds Extremities: non-tender Case Patel MD Nov 09, 2019 11:00
[2019-11-09] MEDS: Remdesivir 100mg 100 MG in NS 230 ML IV SCH (13:30)
--- NOTE | 2019-11-09 14:38 | Consultation ---
History of Present Illness General Date patient seen: Nov 09, 2019 Chief Complaint: Edema Present Illness HPI This is a 54-year-old female who presented to [facility] for evaluation identified to have a massive left nostril bleeding intubated for airway protection and surgery was called to evaluate and assist with hemostasis and hemorrhage control. Patient was seen in the intensive care unit immediately and noted to be in compromise. Intubated on vent support active bleeding noted from the left nostril. A Rhino Rocket was placed and monitored over the course of the next 30 minutes to 1 hour and hemostasis obtained. Has been monitored over the past 24 hours and stable. Lovenox has been stopped. Surgery has been called to evaluate and assist with care and management as well as monitoring and management of the hemorrhage and Rhino Rocket. Patient seen patient vital chart reviewed. A central catheter was placed prior given patient 's critical condition. Allergies: Coded Allergies: No Known Allergies (Unverified , 11/06/19) Medication History Scheduled Furosemide* (Lasix*), 40 MG ORAL DAILY, (Reported) Metformin Hcl* (Metformin Hcl*), Unknown Dose ORAL TWICE A DAY, (Reported) Patient History Limited by: medical condition History Provided By: Medical Record, PMD Healthcare decision maker Resuscitation status Advanced Directive on File Review of Systems ROS Narrative Unable to obtain given patient's current medical condition Physical Exam General Appearance: moderate distress Lines, tubes and drains: central line HEENT: other Neck: supple, normal inspection Respiratory/Chest: decreased breath sounds, on vent Cardiovascular/Chest: tachycardia Abdomen: soft, no organomegaly, no mass Extremities: normal inspection, no calf tenderness, trace edema Skin Exam: warm/dry Neurologic: unresponsiveness Last 24 Hour Vital Signs Date Time Temp Pulse Resp B/P (MAP) Pulse Ox O2 Delivery O2 Flow Rate FiO2 11/09/19 13:00 99 22 121/52 (75) 97 11/09/19 12:30 96 25 125/62 (83) 97 11/09/19 12:00 96 11/09/19 12:00 22 106/55 Mechanical Ventilator 50 11/09/19 12:00 50 11/09/19 12:00 98 22 106/55 (72) 96 11/09/19 11:30 98.6 101 12 115/60 (78) 95 11/09/19 11:08 94 20 50 7/20/20 11:00 12 115/60 Mechanical Ventilator 50 7/20/20 11:00 98 22 113/54 (73) 95 7/20/20 10:30 101 22 103/54 (70) 95 7/20/20 10:00 101 16 133/73 (93) 96 7/20/20 10:00 18 133/73 Mechanical Ventilator 50 7/20/20 09:30 98 18 111/50 (70) 96 7/20/20 09:00 18 111/50 Mechanical Ventilator 50 720 09:00 99 14 107/49 (68) 96 7/20/20 08:38 99 99/40 7/20/20 08:30 95 20 104/52 (69) 97 7/2020 08:00 98.9 99 17 99/40 (59) 96 7 08:00 Mechanical Ventilator 72020 08:00 100 7/2020 08:00 17 104/52 Mechanical Ventilator 50 720 08:00 50 720 07:42 101 21 60 72020 07:30 101 14 97/59 (72) 98 7/20/20 07:03 17 106/57 Mechanical Ventilator 60 720/20 07:00 101 19 102/50 (67) 98 7/20/20 07:00 17 102/50 Mechanical Ventilator 60 720 06:00 20 109/60 Mechanical Ventilator 60 720/20 06:00 102 17 109/60 (76) 99 7/20/20 05:30 100 20 109/55 (73) 98 720/20 05:00 106 19 112/42 (65) 98 720/20 05:00 20 112/42 Mechanical Ventilator 60 720/20 04:30 104 19 110/40 (63) 99 7/20/20 04:00 117 7/20/20 04:00 20 118/43 Mechanical Ventilator 99 720/20 04:00 99.1 102 18 118/43 (68) 99 7/20/20 04:00 Mechanical Ventilator 7/20/20 04:00 60 7/20/20 03:30 106 20 121/82 (95) 98 7/20/20 03:15 105 20 60 7/20/20 03:00 103 20 113/52 (72) 98 7/20/20 03:00 20 113/52 Mechanical Ventilator 98 7 02:30 104 18 114/48 (70) 98 7 02:00 18 101/50 Mechanical Ventilator 60 7 02:00 104 18 101/50 (67) 98 720 01:30 101 18 109/60 (76) 98 20 01:00 18 108/50 Mechanical Ventilator 60 11/09/19 01:00 103 18 108/50 (69) 98 11/09/19 00:30 104 19 109/44 (65) 98 11/09/19 00:00 60 7 00:00 19 112/48 Mechanical Ventilator 60 11/09/19 00:00 Mechanical Ventilator 11/09/19 00:00 107 11/09/19 00:00 99.0 104 19 112/48 (69) 98 11/08/19 23:38 101 20 60 720 23:30 104 19 117/47 (70) 99 20 23:00 103 15 117/48 (71) 99 20 23:00 15 117/48 Mechanical Ventilator 60 20 22:30 107 17 115/42 (66) 99 71920 22:00 102 19 117/44 (68) 99 20 22:00 19 117/44 Mechanical Ventilator 60 20 21:30 105 15 103/51 (68) 99 71920 21:00 105 14 107/60 (76) 99 1920 21:00 105 95/58 71920 21:00 14 107/60 Mechanical Ventilator 60 20 20:30 105 15 95/58 (70) 99 719/20 20:00 98.7 102 13 105/49 (67) 99 719/20 20:00 Mechanical Ventilator 71920 20:00 60 71920 20:00 13 105/49 Mechanical Ventilator 60 720 20:00 103 7/19/20 19:30 107 18 94/60 (71) 99 7/19/20 19:30 98 19 60 71920 19:00 103 12 103/67 (79) 99 71920 19:00 12 103/67 Mechanical Ventilator 60 720 18:00 19 106/64 Mechanical Ventilator 60 11/08/19 18:00 101 19 106/64 (78) 99 11/08/19 17:00 18 103/67 Mechanical Ventilator 60 11/08/19 17:00 101 18 103/67 (79) 100 11/08/19 16:00 98.4 102 16 104/62 (76) 100 11/08/19 16:00 104 11/08/19 16:00 60 11/08/19 16:00 Mechanical Ventilator 11/08/19 16:00 16 104/62 Mechanical Ventilator 60 11/08/19 15:27 103 18 60 11/08/19 15:00 20 103/78 Mechanical Ventilator 60 11/08/19 15:00 102 20 104/73 (83) 100 Intake and Output 11/08/19 11/09/19 19:00 07:00 Intake Total 447.000 ml 613.5 ml Output Total 1020 ml 4920 ml Balance -573.000 ml -4306.5 ml IV Total 447.000 ml 613.5 ml Output Urine Total 320 ml 720 ml Other 700 ml 4200 ml Laboratory Tests Test 11/08/19 17:30 11/08/19 18:00 11/09/19 03:20 11/09/19 05:56 POC Whole Blood Glucose 254 MG/DL (74-106) H Pending White Blood Count 14.7 K/UL (4.8-10.8) H 10.8 K/UL (4.8-10.8) Red Blood Count 3.63 M/UL (4.20-5.40) L 3.51 M/UL (4.20-5.40) L Hemoglobin 9.9 G/DL (12.0-16.0) L 9.5 G/DL (12.0-16.0) L Hematocrit 32.6 % (37.0-47.0) L 31.4 % (37.0-47.0) L Mean Corpuscular Volume 90 FL (80-99) 89 FL (80-99) Mean Corpuscular Hemoglobin 27.1 PG (27.0-31.0) 27.1 PG (27.0-31.0) Mean Corpuscular Hemoglobin Concent 30.3 G/DL (32.0-36.0) L 30.2 G/DL (32.0-36.0) L Red Cell Distribution Width 16.8 % (11.6-14.8) H 16.2 % (11.6-14.8) H Platelet Count 204 K/UL (150-450) 197 K/UL (150-450) Mean Platelet Volume 6.1 FL (6.5-10.1) L 6.6 FL (6.5-10.1) Neutrophils (%) (Auto) 93.3 % (45.0-75.0) H % (45.0-75.0) Lymphocytes (%) (Auto) 2.7 % (20.0-45.0) L % (20.0-45.0) Monocytes (%) (Auto) 3.5 % (1.0-10.0) % (1.0-10.0) Eosinophils (%) (Auto) 0.0 % (0.0-3.0) % (0.0-3.0) Basophils (%) (Auto) 0.4 % (0.0-2.0) % (0.0-2.0) Prothrombin Time 14.4 SEC (9.30-11.50) H Prothromb Time International Ratio 1.3 (0.9-1.1) H Activated Partial Thromboplast Time 31 SEC (23-33) Sodium Level 138 MMOL/L (136-145) 139 MMOL/L (136-145) Potassium Level 5.1 MMOL/L (3.5-5.1) 5.1 MMOL/L (3.5-5.1) Chloride Level 104 MMOL/L (98-107) 105 MMOL/L (98-107) Carbon Dioxide Level 31 MMOL/L (21-32) 29 MMOL/L (21-32) Anion Gap 3 mmol/L (5-15) L 5 mmol/L (5-15) Blood Urea Nitrogen 35 mg/dL (7-18) H 39 mg/dL (7-18) H Creatinine 1.1 MG/DL (0.55-1.30) 1.2 MG/DL (0.55-1.30) Estimat Glomerular Filtration Rate 51.9 mL/min (>60) 47.0 mL/min (>60) Glucose Level 243 MG/DL (74-106) H 255 MG/DL (74-106) H Calcium Level 8.0 MG/DL (8.5-10.1) L 8.2 MG/DL (8.5-10.1) L Total Bilirubin 1.2 MG/DL (0.2-1.0) H 1.3 MG/DL (0.2-1.0) H Direct Bilirubin 0.8 MG/DL (0.0-0.3) H 0.8 MG/DL (0.0-0.3) H Aspartate Amino Transf (AST/SGOT) 41 U/L (15-37) H 41 U/L (15-37) H Alanine Aminotransferase (ALT/SGPT) 37 U/L (12-78) 34 U/L (12-78) Alkaline Phosphatase 199 U/L (46-116) H 191 U/L (46-116) H Total Protein 6.1 G/DL (6.4-8.2) L 6.2 G/DL (6.4-8.2) L Albumin 1.9 G/DL (3.4-5.0) L 2.0 G/DL (3.4-5.0) L Globulin 4.2 g/dL 4.2 g/dL Albumin/Globulin Ratio 0.5 (1.0-2.7) L 0.5 (1.0-2.7) L Lactic Acid Level 2.50 mmol/L (0.4-2.0) H Test 11/09/19 10:00 Lactic Acid Level 2.10 mmol/L (0.4-2.0) H Height (Feet): 5 Height (Inches): 3.00 Weight (Pounds): 275 Medications Current Medications Medications (Trade) Dose Ordered Sig/Robyn Route PRN Reason Start Time Stop Time Status Last Admin Dose Admin Chlorhexidine Gluconate (Miya-Hex 2%) 1 applic DAILY@1999 TOPIC 11/08/19 21:30 02/06/20 21:29 11/08/19 21:47 Dexamethasone Sodium Phosphate (Decadron 10mg/ ml Inj) 6 mg DAILY IV 11/09/19 09:00 02/06/20 09:14 11/09/19 08:11 Dextrose (Dextrose 50%) 25 ml Q30M PRN IV Hypoglycemia 11/08/19 12:30 02/05/20 02:59 Dextrose (Dextrose 50%) 50 ml Q30M PRN IV Hypoglycemia 11/08/19 12:30 02/05/20 02:59 Dextrose/Sodium Chloride 1,000 ml @ 60 mls/hr [id number] IV 11/09/19 01:15 12/09/19 01:14 11/09/19 01:28 Famotidine (Pepcid I.v.) 20 mg Q12HR IVP 11/08/19 15:30 12/08/19 15:29 11/09/19 08:11 Fentanyl Citrate 250 ml @ 0 mls/hr Q24H IV 11/08/19 12:29 02/06/20 12:28 11/09/19 07:03 Insulin Aspart (NovoLOG) BEFORE MEALS AND HS SUBQ 11/08/19 16:30 02/05/20 06:29 11/09/19 11:33 Lorazepam (Ativan 2mg/ml 1ml) 1 mg Q4H PRN IV For Anxiety 11/08/19 12:32 11/15/19 12:31 Metoprolol Tartrate (Lopressor) 25 mg EVERY 12 HOURS ORAL 11/08/19 21:00 02/05/20 20:59 Piperacillin Sod/ Tazobactam Sod 3.375 gm/Sodium Chloride 110 ml @ 27.5 mls/hr EVERY 8 HOURS IVPB 11/08/19 14:00 11/13/19 11:59 11/09/19 13:31 Remdesivir 100 mg/ Sodium Chloride 250 ml @ 250 mls/hr Q24H IV 11/08/19 13:00 11/11/19 13:59 11/09/19 13:30 Remdesivir 100 mg/ Sodium Chloride 250 ml @ 250 mls/hr Q24H IV 11/12/19 13:00 11/16/19 13:59 Assessment/Plan Problem List: (1) Weak ICD Codes: R53.1 - Weakness SNOMED: 32849842 (2) UTI (urinary tract infection) ICD Codes: N39.0 - Urinary tract infection, site not specified SNOMED: 33109731 (3) Hypoxia ICD Codes: R09.02 - Hypoxemia SNOMED: 132721222 (4) Epistaxis Assessment & Plan: Severe after taxis left nostril Rhino Rocket placed hemostasis noted over the course 24 hours hemoglobin stable Lovenox been stopped. The balloon of both ports of the Rhino Rocket were deflated today. The rocket itself was not removed and will monitor over the course next 24 hours hemostasis. If so will gently remove and plan for local monitoring. Currently wean ventilator as tolerated. Goals of extubation when possible. ICD Codes: R04.0 - Epistaxis SNOMED: 997162679 (5) Fluid overload Assessment & Plan: Continue central venous catheter for now. Will anticipate removal once patient stable for extubation. Thank you for allowing me to participate patient's care ICD Codes: E87.70 - Fluid overload, unspecified SNOMED: 75408018 (6) Diabetes ICD Codes: E11.9 - Type 2 diabetes mellitus without complications SNOMED: 43917167 (7) CHF (congestive heart failure) ICD Codes: I50.9 - Heart failure, unspecified SNOMED: 37939536 (8) Afib ICD Codes: I48.91 - Unspecified atrial fibrillation SNOMED: 59043641 (9) Multifocal pneumonia ICD Codes: J18.9 - Pneumonia, unspecified organism SNOMED: 575029140 (10) 2019 novel coronavirus disease (COVID-19) ICD Codes: U07.1 - COVID-19 SNOMED: 365857837 (11) Respiratory failure ICD Codes: J96.90 - Respiratory failure, unspecified, unspecified whether with hypoxia or hypercapnia SNOMED: 009259174 Ortiz Fleming Nov 09, 2019 14:38
--- NOTE | 2019-11-09 15:53 | Cardiac Electrophysiology PN ---
Assessment/Plan Assessment/Plan 1. Atrial fibrillation. Lovenox DCed. On metoprolol 25 mg b.i.d. that will change to Lopresor 5 mg iv BID EF 55% on echo. 2. COVID positive pneumonia. The patient is already on remdesivir and dexamethasone. 3. Diabetes, on insulin. 4. Respiratory failure on the Vent. 5. Massive nasal bleed. Now airway is protected. [employer] Subjective Subjective Had bleeding profusely from nose and mouth and was intubated to protect the airway. In ICU off pressors. Dr Fleming placed a rapid Rhino in left nostril In atrial fib . No NGT or OGT. Lovenox DCed Objective Last 24 Hour Vital Signs Date Time Temp Pulse Resp B/P (MAP) Pulse Ox O2 Delivery O2 Flow Rate FiO2 11/09/19 15:00 95 22 122/69 (86) 100 11/09/19 15:00 22 122/69 Mechanical Ventilator 50 11/09/19 14:59 110 22 50 11/09/19 14:30 95 22 111/52 (71) 96 11/09/19 14:00 97 23 111/54 (73) 96 11/09/19 14:00 23 111/54 Mechanical Ventilator 50 11/09/19 13:00 99 22 121/52 (75) 97 11/09/19 13:00 22 121/52 Mechanical Ventilator 50 11/09/19 12:30 96 25 125/62 (83) 97 11/09/19 12:00 96 11/09/19 12:00 22 106/55 Mechanical Ventilator 50 11/09/19 12:00 50 11/09/19 12:00 98 22 106/55 (72) 96 11/09/19 11:30 98.6 101 12 115/60 (78) 95 11/09/19 11:08 94 20 50 11/09/19 11:00 12 115/60 Mechanical Ventilator 50 11/09/19 11:00 98 22 113/54 (73) 95 11/09/19 10:30 101 22 103/54 (70) 95 11/09/19 10:00 101 16 133/73 (93) 96 11/09/19 10:00 18 133/73 Mechanical Ventilator 50 11/09/19 09:30 98 18 111/50 (70) 96 7/20/20 09:00 18 111/50 Mechanical Ventilator 50 7/20/20 09:00 99 14 107/49 (68) 96 7/20/20 08:38 99 99/40 7/20/20 08:30 95 20 104/52 (69) 97 7/20/20 08:00 98.9 99 17 99/40 (59) 96 7/2020 08:00 Mechanical Ventilator 72020 08:00 100 7/20/20 08:00 17 104/52 Mechanical Ventilator 50 72020 08:00 50 7/20/20 07:42 101 21 60 7/20/20 07:30 101 14 97/59 (72) 98 7/2020 07:03 17 106/57 Mechanical Ventilator 60 7 07:00 101 19 102/50 (67) 98 72020 07:00 17 102/50 Mechanical Ventilator 60 720 06:00 20 109/60 Mechanical Ventilator 60 720 06:00 102 17 109/60 (76) 99 72020 05:30 100 20 109/55 (73) 98 7/20/20 05:00 106 19 112/42 (65) 98 7/20/20 05:00 20 112/42 Mechanical Ventilator 60 7 04:30 104 19 110/40 (63) 99 72020 04:00 117 72020 04:00 20 118/43 Mechanical Ventilator 99 72020 04:00 99.1 102 18 118/43 (68) 99 720/20 04:00 Mechanical Ventilator 72020 04:00 60 72020 03:30 106 20 121/82 (95) 98 7/20/20 03:15 105 20 60 7/20/20 03:00 103 20 113/52 (72) 98 7/20/20 03:00 20 113/52 Mechanical Ventilator 98 72020 02:30 104 18 114/48 (70) 98 720/20 02:00 18 101/50 Mechanical Ventilator 60 720/20 02:00 104 18 101/50 (67) 98 7/20/20 01:30 101 18 109/60 (76) 98 7/20/20 01:00 18 108/50 Mechanical Ventilator 60 7/20/20 01:00 103 18 108/50 (69) 98 20 00:30 104 19 109/44 (65) 98 11/09/19 00:00 60 11/09/19 00:00 19 112/48 Mechanical Ventilator 60 11/09/19 00:00 Mechanical Ventilator 7 00:00 107 11/09/19 00:00 99.0 104 19 112/48 (69) 98 11/08/19 23:38 101 20 60 11/08/19 23:30 104 19 117/47 (70) 99 11/08/19 23:00 103 15 117/48 (71) 99 11/08/19 23:00 15 117/48 Mechanical Ventilator 60 11/08/19 22:30 107 17 115/42 (66) 99 11/08/19 22:00 102 19 117/44 (68) 99 11/08/19 22:00 19 117/44 Mechanical Ventilator 60 11/08/19 21:30 105 15 103/51 (68) 99 11/08/19 21:00 105 14 107/60 (76) 99 11/08/19 21:00 105 95/58 11/08/19 21:00 14 107/60 Mechanical Ventilator 60 11/08/19 20:30 105 15 95/58 (70) 99 11/08/19 20:00 98.7 102 13 105/49 (67) 99 11/08/19 20:00 Mechanical Ventilator 11/08/19 20:00 60 20 20:00 13 105/49 Mechanical Ventilator 60 11/08/19 20:00 103 11/08/19 19:30 107 18 94/60 (71) 99 11/08/19 19:30 98 19 60 11/08/19 19:00 103 12 103/67 (79) 99 20 19:00 12 103/67 Mechanical Ventilator 60 11/08/19 18:00 19 106/64 Mechanical Ventilator 60 11/08/19 18:00 101 19 106/64 (78) 99 20 17:00 18 103/67 Mechanical Ventilator 60 11/08/19 17:00 101 18 103/67 (79) 100 20 16:00 98.4 102 16 104/62 (76) 100 11/08/19 16:00 104 11/08/19 16:00 60 7/19/20 16:00 Mechanical Ventilator 11/08/19 16:00 16 104/62 Mechanical Ventilator 60 Intake and Output 11/08/19 11/09/19 19:00 07:00 Intake Total 447.000 ml 613.5 ml Output Total 1020 ml 4920 ml Balance -573.000 ml -4306.5 ml IV Total 447.000 ml 613.5 ml Output Urine Total 320 ml 720 ml Other 700 ml 4200 ml Laboratory Tests Test 11/08/19 17:30 11/08/19 18:00 11/09/19 03:20 11/09/19 05:56 POC Whole Blood Glucose 254 MG/DL (74-106) H Pending White Blood Count 14.7 K/UL (4.8-10.8) H 10.8 K/UL (4.8-10.8) Red Blood Count 3.63 M/UL (4.20-5.40) L 3.51 M/UL (4.20-5.40) L Hemoglobin 9.9 G/DL (12.0-16.0) L 9.5 G/DL (12.0-16.0) L Hematocrit 32.6 % (37.0-47.0) L 31.4 % (37.0-47.0) L Mean Corpuscular Volume 90 FL (80-99) 89 FL (80-99) Mean Corpuscular Hemoglobin 27.1 PG (27.0-31.0) 27.1 PG (27.0-31.0) Mean Corpuscular Hemoglobin Concent 30.3 G/DL (32.0-36.0) L 30.2 G/DL (32.0-36.0) L Red Cell Distribution Width 16.8 % (11.6-14.8) H 16.2 % (11.6-14.8) H Platelet Count 204 K/UL (150-450) 197 K/UL (150-450) Mean Platelet Volume 6.1 FL (6.5-10.1) L 6.6 FL (6.5-10.1) Neutrophils (%) (Auto) 93.3 % (45.0-75.0) H % (45.0-75.0) Lymphocytes (%) (Auto) 2.7 % (20.0-45.0) L % (20.0-45.0) Monocytes (%) (Auto) 3.5 % (1.0-10.0) % (1.0-10.0) Eosinophils (%) (Auto) 0.0 % (0.0-3.0) % (0.0-3.0) Basophils (%) (Auto) 0.4 % (0.0-2.0) % (0.0-2.0) Prothrombin Time 14.4 SEC (9.30-11.50) H Prothromb Time International Ratio 1.3 (0.9-1.1) H Activated Partial Thromboplast Time 31 SEC (23-33) Sodium Level 138 MMOL/L (136-145) 139 MMOL/L (136-145) Potassium Level 5.1 MMOL/L (3.5-5.1) 5.1 MMOL/L (3.5-5.1) Chloride Level 104 MMOL/L (98-107) 105 MMOL/L (98-107) Carbon Dioxide Level 31 MMOL/L (21-32) 29 MMOL/L (21-32) Anion Gap 3 mmol/L (5-15) L 5 mmol/L (5-15) Blood Urea Nitrogen 35 mg/dL (7-18) H 39 mg/dL (7-18) H Creatinine 1.1 MG/DL (0.55-1.30) 1.2 MG/DL (0.55-1.30) Estimat Glomerular Filtration Rate 51.9 mL/min (>60) 47.0 mL/min (>60) Glucose Level 243 MG/DL (74-106) H 255 MG/DL (74-106) H Calcium Level 8.0 MG/DL (8.5-10.1) L 8.2 MG/DL (8.5-10.1) L Total Bilirubin 1.2 MG/DL (0.2-1.0) H 1.3 MG/DL (0.2-1.0) H Direct Bilirubin 0.8 MG/DL (0.0-0.3) H 0.8 MG/DL (0.0-0.3) H Aspartate Amino Transf (AST/SGOT) 41 U/L (15-37) H 41 U/L (15-37) H Alanine Aminotransferase (ALT/SGPT) 37 U/L (12-78) 34 U/L (12-78) Alkaline Phosphatase 199 U/L (46-116) H 191 U/L (46-116) H Total Protein 6.1 G/DL (6.4-8.2) L 6.2 G/DL (6.4-8.2) L Albumin 1.9 G/DL (3.4-5.0) L 2.0 G/DL (3.4-5.0) L Globulin 4.2 g/dL 4.2 g/dL Albumin/Globulin Ratio 0.5 (1.0-2.7) L 0.5 (1.0-2.7) L Lactic Acid Level 2.50 mmol/L (0.4-2.0) H Test 11/09/19 10:00 Lactic Acid Level 2.10 mmol/L (0.4-2.0) H Microbiology Date/Time Source Procedure Growth Status 11/06/19 22:20 Blood Blood Culture - Preliminary NO GROWTH AFTER 48 HOURS Resulted 11/06/19 22:05 Blood Blood Culture - Preliminary NO GROWTH AFTER 48 HOURS Resulted 11/06/19 22:45 Nasopharynx SARS-CoV-2 RdRp Gene Assay - Final Complete Objective HEAD AND NECK: Shows no JVD. Rhinorocket in her left Nostril Orally intubated LUNGS: Coarse rhonchi. CARDIOVASCULAR: Irregularly irregular. S1 and S2 with no gallop or murmur. ABDOMEN: Soft. EXTREMITIES: No pitting edema. Gabe Snell MD Nov 09, 2019 15:53
--- NOTE | 2019-11-09 16:07 | Pulmonology Progress Note ---
Subjective ROS Limited/Unobtainable: No Interval Events: Intubated yesterday; had epistaxis; packed by Dr Fleming Constitutional: Reports: other - nasal bleeding HEENT: Repors: no symptoms Respiratory: Reports: dry cough, shortness of breath Cardiovascular: Reports: no symptoms Gastrointestinal/Abdominal: Reports: no symptoms Allergies: Coded Allergies: No Known Allergies (Unverified , 11/06/19) All Systems: reviewed and negative except above Objective Last 24 Hour Vital Signs Date Time Temp Pulse Resp B/P (MAP) Pulse Ox O2 Delivery O2 Flow Rate FiO2 11/09/19 15:00 95 22 122/69 (86) 100 11/09/19 15:00 22 122/69 Mechanical Ventilator 50 11/09/19 14:59 110 22 50 11/09/19 14:30 95 22 111/52 (71) 96 11/09/19 14:00 97 23 111/54 (73) 96 11/09/19 14:00 23 111/54 Mechanical Ventilator 50 11/09/19 13:00 99 22 121/52 (75) 97 11/09/19 13:00 22 121/52 Mechanical Ventilator 50 11/09/19 12:30 96 25 125/62 (83) 97 11/09/19 12:00 96 11/09/19 12:00 22 106/55 Mechanical Ventilator 50 11/09/19 12:00 50 11/09/19 12:00 98 22 106/55 (72) 96 11/09/19 11:30 98.6 101 12 115/60 (78) 95 11/09/19 11:08 94 20 50 11/09/19 11:00 12 115/60 Mechanical Ventilator 50 11/09/19 11:00 98 22 113/54 (73) 95 11/09/19 10:30 101 22 103/54 (70) 95 11/09/19 10:00 101 16 133/73 (93) 96 11/09/19 10:00 18 133/73 Mechanical Ventilator 50 11/09/19 09:30 98 18 111/50 (70) 96 11/09/19 09:00 18 111/50 Mechanical Ventilator 50 11/09/19 09:00 99 14 107/49 (68) 96 11/09/19 08:38 99 99/40 11/09/19 08:30 95 20 104/52 (69) 97 7/20/20 08:00 98.9 99 17 99/40 (59) 96 7/20/20 08:00 Mechanical Ventilator 7/2020 08:00 100 7/20/20 08:00 17 104/52 Mechanical Ventilator 50 720/20 08:00 50 7/20/20 07:42 101 21 60 7/20/20 07:30 101 14 97/59 (72) 98 72020 07:03 17 106/57 Mechanical Ventilator 60 72020 07:00 101 19 102/50 (67) 98 7/20/20 07:00 17 102/50 Mechanical Ventilator 60 720/20 06:00 20 109/60 Mechanical Ventilator 60 720 06:00 102 17 109/60 (76) 99 720 05:30 100 20 109/55 (73) 98 72020 05:00 106 19 112/42 (65) 98 720 05:00 20 112/42 Mechanical Ventilator 60 11/09/19 04:30 104 19 110/40 (63) 99 72020 04:00 117 72020 04:00 20 118/43 Mechanical Ventilator 99 72020 04:00 99.1 102 18 118/43 (68) 99 72020 04:00 Mechanical Ventilator 7 04:00 60 72020 03:30 106 20 121/82 (95) 98 720/20 03:15 105 20 60 720/20 03:00 103 20 113/52 (72) 98 72020 03:00 20 113/52 Mechanical Ventilator 98 72020 02:30 104 18 114/48 (70) 98 7/20/20 02:00 18 101/50 Mechanical Ventilator 60 720/20 02:00 104 18 101/50 (67) 98 7/20/20 01:30 101 18 109/60 (76) 98 720/20 01:00 18 108/50 Mechanical Ventilator 60 720/20 01:00 103 18 108/50 (69) 98 7/20/20 00:30 104 19 109/44 (65) 98 720/20 00:00 60 720/20 00:00 19 112/48 Mechanical Ventilator 60 7/20/20 00:00 Mechanical Ventilator 11/09/19 00:00 107 11/09/19 00:00 99.0 104 19 112/48 (69) 98 11/08/19 23:38 101 20 60 7 23:30 104 19 117/47 (70) 99 11/08/19 23:00 103 15 117/48 (71) 99 20 23:00 15 117/48 Mechanical Ventilator 60 11/08/19 22:30 107 17 115/42 (66) 99 20 22:00 102 19 117/44 (68) 99 20 22:00 19 117/44 Mechanical Ventilator 60 11/08/19 21:30 105 15 103/51 (68) 99 11/08/19 21:00 105 14 107/60 (76) 99 11/08/19 21:00 105 95/58 11/08/19 21:00 14 107/60 Mechanical Ventilator 60 11/08/19 20:30 105 15 95/58 (70) 99 11/08/19 20:00 98.7 102 13 105/49 (67) 99 11/08/19 20:00 Mechanical Ventilator 11/08/19 20:00 60 11/08/19 20:00 13 105/49 Mechanical Ventilator 60 11/08/19 20:00 103 11/08/19 19:30 107 18 94/60 (71) 99 11/08/19 19:30 98 19 60 11/08/19 19:00 103 12 103/67 (79) 99 11/08/19 19:00 12 103/67 Mechanical Ventilator 60 11/08/19 18:00 19 106/64 Mechanical Ventilator 60 11/08/19 18:00 101 19 106/64 (78) 99 11/08/19 17:00 18 103/67 Mechanical Ventilator 60 11/08/19 17:00 101 18 103/67 (79) 100 Intake and Output 11/08/19 11/09/19 19:00 07:00 Intake Total 447.000 ml 613.5 ml Output Total 1020 ml 4920 ml Balance -573.000 ml -4306.5 ml IV Total 447.000 ml 613.5 ml Output Urine Total 320 ml 720 ml Other 700 ml 4200 ml General Appearance: no acute distress HEENT: normocephalic Respiratory: decreased breath sounds Cardiovascular: normal peripheral pulses Abdomen: normal bowel sounds Extremities: no cyanosis Microbiology Date/Time Source Procedure Growth Status 11/06/19 22:20 Blood Blood Culture - Preliminary NO GROWTH AFTER 48 HOURS Resulted 11/06/19 22:05 Blood Blood Culture - Preliminary NO GROWTH AFTER 48 HOURS Resulted 11/06/19 22:45 Nasopharynx SARS-CoV-2 RdRp Gene Assay - Final Complete Laboratory Tests 11/08/19 17:30: POC Whole Blood Glucose 254H 11/08/19 18:00: White Blood Count 14.7H, Red Blood Count 3.63L, Hemoglobin 9.9L, Hematocrit 32.6L, Mean Corpuscular Volume 90, Mean Corpuscular Hemoglobin 27.1, Mean Corpuscular Hemoglobin Concent 30.3L, Red Cell Distribution Width 16.8H, Platelet Count 204, Mean Platelet Volume 6.1L, Neutrophils (%) (Auto) 93.3H, Lymphocytes (%) (Auto) 2.7L, Monocytes (%) (Auto) 3.5, Eosinophils (%) (Auto) 0.0, Basophils (%) (Auto) 0.4, Prothrombin Time 14.4H, Prothromb Time International Ratio 1.3H, Activated Partial Thromboplast Time 31, Sodium Level 138, Potassium Level 5.1, Chloride Level 104, Carbon Dioxide Level 31, Anion Gap 3L, Blood Urea Nitrogen 35H, Creatinine 1.1, Estimat Glomerular Filtration Rate 51.9, Glucose Level 243H, Calcium Level 8.0L, Total Bilirubin 1.2H, Direct Bilirubin 0.8H, Aspartate Amino Transf (AST/SGOT) 41H, Alanine Aminotransferase (ALT/SGPT) 37, Alkaline Phosphatase 199H, Total Protein 6.1L, Albumin 1.9L, Globulin 4.2, Albumin/Globulin Ratio 0.5L 11/09/19 03:20: White Blood Count 10.8, Red Blood Count 3.51L, Hemoglobin 9.5L, Hematocrit 31.4L , Mean Corpuscular Volume 89, Mean Corpuscular Hemoglobin 27.1, Mean Corpuscular Hemoglobin Concent 30.2L, Red Cell Distribution Width 16.2H, Platelet Count 197, Mean Platelet Volume 6.6, Neutrophils (%) (Auto) , Lymphocytes (%) (Auto) , Monocytes (%) (Auto) , Eosinophils (%) (Auto) , Basophils (%) (Auto) , Sodium Level 139, Potassium Level 5.1, Chloride Level 105 , Carbon Dioxide Level 29, Anion Gap 5, Blood Urea Nitrogen 39H, Creatinine 1.2 , Estimat Glomerular Filtration Rate 47.0, Glucose Level 255H, Calcium Level 8.2L, Total Bilirubin 1.3H, Direct Bilirubin 0.8H, Aspartate Amino Transf (AST/ SGOT) 41H, Alanine Aminotransferase (ALT/SGPT) 34, Alkaline Phosphatase 191H, Total Protein 6.2L, Albumin 2.0L, Globulin 4.2, Albumin/Globulin Ratio 0.5L, Lactic Acid Level 2.50H 11/09/19 05:56: POC Whole Blood Glucose [Pending] 11/09/19 10:00: Lactic Acid Level 2.10H Current Medications Medications (Trade) Dose Ordered Sig/Robyn Route PRN Reason Start Time Stop Time Status Last Admin Dose Admin Chlorhexidine Gluconate (Miya-Hex 2%) 1 applic DAILY@2000 TOPIC 11/08/19 21:30 02/06/20 21:29 11/08/19 21:47 Dexamethasone Sodium Phosphate (Decadron 10mg/ ml Inj) 6 mg DAILY IV 11/09/19 09:00 02/06/20 09:14 11/09/19 08:11 Dextrose (Dextrose 50%) 25 ml Q30M PRN IV Hypoglycemia 11/08/19 12:30 02/05/20 02:59 Dextrose (Dextrose 50%) 50 ml Q30M PRN IV Hypoglycemia 11/08/19 12:30 02/05/20 02:59 Dextrose/Sodium Chloride 1,000 ml @ 60 mls/hr [id number] IV 11/09/19 01:15 12/09/19 01:14 11/09/19 01:28 Famotidine (Pepcid I.v.) 20 mg Q12HR IVP 11/08/19 15:30 12/08/19 15:29 11/09/19 08:11 Fentanyl Citrate 250 ml @ 0 mls/hr Q24H IV 11/08/19 12:29 02/06/20 12:28 11/09/19 07:03 Insulin Aspart (NovoLOG) BEFORE MEALS AND HS SUBQ 11/08/19 16:30 02/05/20 06:29 11/09/19 11:33 Lorazepam (Ativan 2mg/ml 1ml) 1 mg Q4H PRN IV For Anxiety 11/08/19 12:32 11/15/19 12:31 Metoprolol Tartrate (Lopressor) 5 mg Q12HR IVP 11/09/19 21:00 02/07/20 20:59 Piperacillin Sod/ Tazobactam Sod 3.375 gm/Sodium Chloride 110 ml @ 27.5 mls/hr EVERY 8 HOURS IVPB 11/08/19 14:00 11/13/19 11:59 11/09/19 13:31 Remdesivir 100 mg/ Sodium Chloride 250 ml @ 250 mls/hr Q24H IV 11/08/19 13:00 11/11/19 13:59 11/09/19 13:30 Remdesivir 100 mg/ Sodium Chloride 250 ml @ 250 mls/hr Q24H IV 11/12/19 13:00 11/16/19 13:59 Assessment/Plan Assessment/Plan IMPRESSION: 1. COVID-19 pneumonia. 2. Diabetes mellitus and hypertension. 3. Lactic acidemia. 4. Epistaxis 5. Respiratory failure DISCUSSION: Will check ABG this AM Careful and close monitoring. The patient has been started on remdesivir and steroids. Begin weaning. Continue oxygen and pulmonary hygiene. Saturating currently on ventimask. I will follow carefully. Lakeisha Zavaleta Omar Syed MD Nov 09, 2019 16:07
[2019-11-09] MEDS: Dyna-Hex 2% Top Sol 2oz TOPIC SCH (20:00)
[2019-11-09] MEDS: Metoprolol Tartrate 5mg/5ml Inj IVP SCH (21:12)
[2019-11-10] VITALS (29 sets, daily range): BP systolic 92–130; BP diastolic 44–75
[2019-11-10] MEDS: fentaNYL 2500mcg/NS 250ml 250 ML IV SCH ×2 (01:37→17:27)
[2019-11-10] MEDS: Piperacillin/Tazobactam 3.375 GM in NS 110 ML IVPB SCH ×3 (05:32→20:27)
[2019-11-10 05:39] LABS: BASOPHILS % (AUTO) 0.4 % (0.0-2.0); HEMATOCRIT 30.5 % (37.0-47.0); HEMOGLOBIN 9.2 G/DL (12.0-16.0); LYMPHOCYTES % (AUTO) 6.2 % (20.0-45.0); MEAN CORPUSCULAR VOLUME 90 FL (80-99); MONOCYTES % (AUTO) 8.7 % (1.0-10.0); NEUTROPHILS % (AUTO) 84.6 % (45.0-75.0); PLATELET COUNT 195 K/UL (150-450); RED BLOOD COUNT 3.41 M/UL (4.20-5.40); RED CELL DISTRIBUTION WIDTH 16.5 % (11.6-14.8); WHITE BLOOD COUNT 12.1 K/UL (4.8-10.8)
[2019-11-10 06:10] LABS: ALANINE AMINOTRANSFERASE 33 U/L (12-78); ALBUMIN/GLOBULIN RATIO 0.5 (1.0-2.7); ALKALINE PHOSPHATASE 179 U/L (46-116); ANION GAP 7 mmol/L (5-15); ASPARTATE AMINO TRANSFERASE 44 U/L (15-37); BILIRUBIN,DIRECT 0.8 MG/DL (0.0-0.3); BILIRUBIN,TOTAL 1.3 MG/DL (0.2-1.0); BLOOD UREA NITROGEN 45 mg/dL (7-18); CALCIUM 8.1 MG/DL (8.5-10.1); CARBON DIOXIDE 28 MMOL/L (21-32); CHLORIDE 107 MMOL/L (98-107); CREATININE 1.3 MG/DL (0.55-1.30); POTASSIUM 4.9 MMOL/L (3.5-5.1); SODIUM 142 MMOL/L (136-145)
[2019-11-10] MEDS: NovoLOG Insulin Flexpen SUBQ SCH ×4 (06:23→20:35)
[2019-11-10] MEDS: dexAMETHasone 10mg/ml Inj IV SCH (08:21)
[2019-11-10] MEDS: Metoprolol Tartrate 5mg/5ml Inj IVP SCH ×2 (08:21→20:32)
[2019-11-10] MEDS: D5NS 1,000 ML IV SCH (10:04)
--- NOTE | 2019-11-10 10:14 | Pulmonology Progress Note ---
Subjective ROS Limited/Unobtainable: No Interval Events: Intubated; no further epistaxis; packed by Dr Fleming Constitutional: Reports: other - nasal bleeding HEENT: Repors: no symptoms Respiratory: Reports: dry cough, shortness of breath Cardiovascular: Reports: no symptoms Gastrointestinal/Abdominal: Reports: no symptoms Allergies: Coded Allergies: No Known Allergies (Unverified , 11/06/19) All Systems: reviewed and negative except above Objective Last 24 Hour Vital Signs Date Time Temp Pulse Resp B/P (MAP) Pulse Ox O2 Delivery O2 Flow Rate FiO2 11/10/19 09:00 82 21 115/54 (74) 95 11/10/19 08:21 87 107/44 11/10/19 08:00 79 11/10/19 08:00 40 11/10/19 08:00 98.9 85 20 107/44 (65) 95 11/10/19 07:00 88 22 114/50 (71) 95 11/10/19 07:00 22 114/50 Mechanical Ventilator 40 11/10/19 06:58 92 20 40 11/10/19 06:00 21 109/56 Mechanical Ventilator 40 11/10/19 06:00 87 21 109/56 (73) 95 11/10/19 05:00 21 108/48 Mechanical Ventilator 40 11/10/19 05:00 88 21 108/48 (68) 96 11/10/19 04:00 50 11/10/19 04:00 98.9 88 22 110/54 (72) 96 11/10/19 04:00 86 11/10/19 04:00 22 110/54 Mechanical Ventilator 40 11/10/19 03:24 90 22 40 11/10/19 03:00 93 15 107/49 (68) 97 11/10/19 03:00 15 107/49 Mechanical Ventilator 40 11/10/19 02:00 94 25 108/68 (81) 99 11/10/19 02:00 25 108/68 Mechanical Ventilator 40 11/10/19 01:37 21 92/47 Mechanical Ventilator 40 11/10/19 01:00 92 21 92/55 (67) 98 11/10/19 01:00 21 92/55 Mechanical Ventilator 40 11/10/19 00:00 99.1 100 21 93/50 (64) 99 11/10/19 00:00 21 93/50 Mechanical Ventilator 40 7/21/20 00:00 40 7/21/20 00:00 94 7/21/20 00:00 Mechanical Ventilator 7/20/20 23:46 105 25 40 7/20/20 23:00 104 21 105/55 (72) 100 7/20/20 23:00 21 105/55 Mechanical Ventilator 50 7/20/20 22:00 113 14 141/81 (101) 99 7/20/20 22:00 14 141/81 Mechanical Ventilator 50 7/20/20 21:30 109 12 143/90 (107) 99 7/20/20 21:12 116 135/61 7/20/20 21:00 119 11 135/61 (85) 99 7/20/20 21:00 12 135/61 Mechanical Ventilator 50 7/20/20 20:30 115 16 143/90 (107) 99 7/20/20 20:00 98.8 113 16 137/77 (97) 98 7/20/20 20:00 50 7/20/20 20:00 16 137/77 Mechanical Ventilator 50 7/20/20 20:00 Mechanical Ventilator 7/20/20 20:00 114 7/20/20 19:39 107 22 50 7/20/20 19:30 19 159/59 Mechanical Ventilator 50 7/20/20 19:30 113 17 156/75 (102) 99 7/20/20 19:00 106 21 159/59 (92) 98 7/20/20 19:00 16 159/59 Mechanical Ventilator 50 7/20/20 18:33 106 20 147/62 (90) 99 7/20/20 18:00 104 32 135/71 (92) 97 7/20/20 18:00 32 135/71 Mechanical Ventilator 50 7/20/20 17:30 101 21 126/54 (78) 97 7/20/20 17:00 18 117/44 Mechanical Ventilator 50 7/20/20 17:00 102 18 117/44 (68) 97 7/20/20 16:30 98.3 98 22 122/60 (80) 96 7/20/20 16:00 Mechanical Ventilator 7/20/20 16:00 50 7/20/20 16:00 97 21 104/56 (72) 96 7/20/20 16:00 21 104/56 Mechanical Ventilator 50 7/20/20 16:00 86 7/20/20 15:30 96 20 100/59 (73) 96 11/09/19 15:00 95 22 122/69 (86) 100 11/09/19 15:00 22 122/69 Mechanical Ventilator 50 11/09/19 14:59 110 22 50 11/09/19 14:30 95 22 111/52 (71) 96 11/09/19 14:00 97 23 111/54 (73) 96 11/09/19 14:00 23 111/54 Mechanical Ventilator 50 11/09/19 13:00 99 22 121/52 (75) 97 11/09/19 13:00 22 121/52 Mechanical Ventilator 50 11/09/19 12:30 96 25 125/62 (83) 97 11/09/19 12:00 96 11/09/19 12:00 Mechanical Ventilator 11/09/19 12:00 22 106/55 Mechanical Ventilator 50 11/09/19 12:00 50 11/09/19 12:00 98 22 106/55 (72) 96 11/09/19 11:30 98.6 101 12 115/60 (78) 95 11/09/19 11:08 94 20 50 11/09/19 11:00 12 115/60 Mechanical Ventilator 50 11/09/19 11:00 98 22 113/54 (73) 95 11/09/19 10:30 101 22 103/54 (70) 95 Intake and Output 11/09/19 11/10/19 19:00 07:00 Intake Total 1163.40 ml 1044.2 ml Output Total 4755 ml 4800 ml Balance -3591.60 ml -3755.8 ml IV Total 1163.40 ml 1044.2 ml Output Urine Total 555 ml 600 ml Other 4200 ml 4200 ml General Appearance: no acute distress HEENT: normocephalic Respiratory: decreased breath sounds Cardiovascular: normal peripheral pulses Abdomen: normal bowel sounds Extremities: no cyanosis Laboratory Tests 11/09/19 11:27: POC Whole Blood Glucose 284H 11/09/19 16:32: POC Whole Blood Glucose 336H 11/09/19 17:00: Lactic Acid Level 2.40H 11/09/19 23:15: Lactic Acid Level 2.60H 11/10/19 03:50: White Blood Count 12.1H, Red Blood Count 3.41L, Hemoglobin 9.2L, Hematocrit 30.5L, Mean Corpuscular Volume 90, Mean Corpuscular Hemoglobin 26.9L, Mean Corpuscular Hemoglobin Concent 30.0L, Red Cell Distribution Width 16.5H, Platelet Count 195, Mean Platelet Volume 6.2L, Neutrophils (%) (Auto) 84.6H, Lymphocytes (%) (Auto) 6.2L, Monocytes (%) (Auto) 8.7, Eosinophils (%) (Auto) 0.0, Basophils (%) (Auto) 0.4, Sodium Level 142, Potassium Level 4.9, Chloride Level 107, Carbon Dioxide Level 28, Anion Gap 7, Blood Urea Nitrogen 45H, Creatinine 1.3, Estimat Glomerular Filtration Rate 42.8, Glucose Level 288H, Lactic Acid Level 2.80H, Calcium Level 8.1L, Total Bilirubin 1.3H, Direct Bilirubin 0.8H, Aspartate Amino Transf (AST/SGOT) 44H, Alanine Aminotransferase (ALT/SGPT) 33, Alkaline Phosphatase 179H, Total Protein 6.1L, Albumin 2.0L, Globulin 4.1, Albumin/Globulin Ratio 0.5L 11/10/19 05:40: POC Whole Blood Glucose [Pending] Current Medications Medications (Trade) Dose Ordered Sig/Robyn Route PRN Reason Start Time Stop Time Status Last Admin Dose Admin Chlorhexidine Gluconate (Miya-Hex 2%) 1 applic DAILY@2000 TOPIC 11/08/19 21:30 02/06/20 21:29 11/09/19 20:00 Dexamethasone Sodium Phosphate (Decadron 10mg/ ml Inj) 6 mg DAILY IV 11/09/19 09:00 02/06/20 09:14 11/10/19 08:21 Dextrose (Dextrose 50%) 25 ml Q30M PRN IV Hypoglycemia 11/08/19 12:30 02/05/20 02:59 Dextrose (Dextrose 50%) 50 ml Q30M PRN IV Hypoglycemia 11/08/19 12:30 02/05/20 02:59 Dextrose/Sodium Chloride 1,000 ml @ 60 mls/hr [id number] IV 11/09/19 01:15 12/09/19 01:14 11/10/19 10:04 Famotidine (Pepcid I.v.) 20 mg Q12HR IVP 11/08/19 15:30 12/08/19 15:29 11/10/19 08:21 Fentanyl Citrate 250 ml @ 0 mls/hr Q24H IV 11/08/19 12:29 02/06/20 12:28 11/10/19 01:37 Insulin Aspart (NovoLOG) BEFORE MEALS AND HS SUBQ 11/08/19 16:30 02/05/20 06:29 11/10/19 06:23 Lorazepam (Ativan 2mg/ml 1ml) 1 mg Q4H PRN IV For Anxiety 11/08/19 12:32 11/15/19 12:31 Metoprolol Tartrate (Lopressor) 5 mg Q12HR IVP 11/09/19 21:00 02/07/20 20:59 11/09/19 21:12 Piperacillin Sod/ Tazobactam Sod 3.375 gm/Sodium Chloride 110 ml @ 27.5 mls/hr EVERY 8 HOURS IVPB 11/08/19 14:00 11/13/19 11:59 11/10/19 05:32 Remdesivir 100 mg/ Sodium Chloride 250 ml @ 250 mls/hr Q24H IV 11/08/19 13:00 11/11/19 13:59 11/09/19 13:30 Remdesivir 100 mg/ Sodium Chloride 250 ml @ 250 mls/hr Q24H IV 11/12/19 13:00 11/16/19 13:59 Assessment/Plan Assessment/Plan IMPRESSION: 1. COVID-19 pneumonia. 2. Diabetes mellitus and hypertension. 3. Lactic acidemia. 4. Epistaxis 5. Respiratory failure DISCUSSION: Careful and close monitoring. Continue remdesivir and steroids. Vent weaning. I will follow carefully. Lakeisha Zavaleta Omar Syed MD Nov 10, 2019 10:14
--- NOTE | 2019-11-10 10:21 | General Progress Note ---
Assessment/Plan Problem List: (1) Respiratory failure ICD Codes: J96.90 - Respiratory failure, unspecified, unspecified whether with hypoxia or hypercapnia SNOMED: 207617141 (2) 2019 novel coronavirus disease (COVID-19) ICD Codes: U07.1 - COVID-19 SNOMED: 082571655 (3) Multifocal pneumonia ICD Codes: J18.9 - Pneumonia, unspecified organism SNOMED: 280895871 (4) Afib ICD Codes: I48.91 - Unspecified atrial fibrillation SNOMED: 11032097 (5) CHF (congestive heart failure) ICD Codes: I50.9 - Heart failure, unspecified SNOMED: 52874783 (6) Diabetes ICD Codes: E11.9 - Type 2 diabetes mellitus without complications SNOMED: 62649298 (7) Fluid overload ICD Codes: E87.70 - Fluid overload, unspecified SNOMED: 09347236 (8) Epistaxis ICD Codes: R04.0 - Epistaxis SNOMED: 908611189 Status: unchanged Assessment/Plan: fu H&H prn blood transfusion pend ENT eval npo for now plan to place OGT and start feeding if properly placed will fu Subjective ROS Limited/Unobtainable: No Allergies: Coded Allergies: No Known Allergies (Unverified , 11/06/19) Objective Last 24 Hour Vital Signs Date Time Temp Pulse Resp B/P (MAP) Pulse Ox O2 Delivery O2 Flow Rate FiO2 11/10/19 09:00 82 21 115/54 (74) 95 11/10/19 08:21 87 107/44 11/10/19 08:00 79 11/10/19 08:00 40 11/10/19 08:00 98.9 85 20 107/44 (65) 95 11/10/19 07:00 88 22 114/50 (71) 95 11/10/19 07:00 22 114/50 Mechanical Ventilator 40 11/10/19 06:58 92 20 40 11/10/19 06:00 21 109/56 Mechanical Ventilator 40 11/10/19 06:00 87 21 109/56 (73) 95 11/10/19 05:00 21 108/48 Mechanical Ventilator 40 11/10/19 05:00 88 21 108/48 (68) 96 11/10/19 04:00 50 11/10/19 04:00 98.9 88 22 110/54 (72) 96 11/10/19 04:00 86 7 04:00 22 110/54 Mechanical Ventilator 40 11/10/19 03:24 90 22 40 7 03:00 93 15 107/49 (68) 97 720 03:00 15 107/49 Mechanical Ventilator 40 20 02:00 94 25 108/68 (81) 99 11/10/19 02:00 25 108/68 Mechanical Ventilator 40 11/10/19 01:37 21 92/47 Mechanical Ventilator 40 11/10/19 01:00 92 21 92/55 (67) 98 11/10/19 01:00 21 92/55 Mechanical Ventilator 40 11/10/19 00:00 99.1 100 21 93/50 (64) 99 11/10/19 00:00 21 93/50 Mechanical Ventilator 40 11/10/19 00:00 40 11/10/19 00:00 94 11/10/19 00:00 Mechanical Ventilator 11/09/19 23:46 105 25 40 11/09/19 23:00 104 21 105/55 (72) 100 720 23:00 21 105/55 Mechanical Ventilator 50 20 22:00 113 14 141/81 (101) 99 720 22:00 14 141/81 Mechanical Ventilator 50 11/09/19 21:30 109 12 143/90 (107) 99 72020 21:12 116 135/61 7/20/20 21:00 119 11 135/61 (85) 99 72020 21:00 12 135/61 Mechanical Ventilator 50 20 20:30 115 16 143/90 (107) 99 7/20/20 20:00 98.8 113 16 137/77 (97) 98 7/20/20 20:00 50 7/20/20 20:00 16 137/77 Mechanical Ventilator 50 72020 20:00 Mechanical Ventilator 72020 20:00 114 7/20/20 19:39 107 22 50 7/20/20 19:30 19 159/59 Mechanical Ventilator 50 7/20/20 19:30 113 17 156/75 (102) 99 720/20 19:00 106 21 159/59 (92) 98 720/20 19:00 16 159/59 Mechanical Ventilator 50 11/09/19 18:33 106 20 147/62 (90) 99 7 18:00 104 32 135/71 (92) 97 7 18:00 32 135/71 Mechanical Ventilator 50 11/09/19 17:30 101 21 126/54 (78) 97 11/09/19 17:00 18 117/44 Mechanical Ventilator 50 11/09/19 17:00 102 18 117/44 (68) 97 11/09/19 16:30 98.3 98 22 122/60 (80) 96 11/09/19 16:00 Mechanical Ventilator 11/09/19 16:00 50 11/09/19 16:00 97 21 104/56 (72) 96 11/09/19 16:00 21 104/56 Mechanical Ventilator 50 11/09/19 16:00 86 11/09/19 15:30 96 20 100/59 (73) 96 11/09/19 15:00 95 22 122/69 (86) 100 11/09/19 15:00 22 122/69 Mechanical Ventilator 50 11/09/19 14:59 110 22 50 11/09/19 14:30 95 22 111/52 (71) 96 11/09/19 14:00 97 23 111/54 (73) 96 11/09/19 14:00 23 111/54 Mechanical Ventilator 50 11/09/19 13:00 99 22 121/52 (75) 97 11/09/19 13:00 22 121/52 Mechanical Ventilator 50 11/09/19 12:30 96 25 125/62 (83) 97 11/09/19 12:00 96 11/09/19 12:00 Mechanical Ventilator 11/09/19 12:00 22 106/55 Mechanical Ventilator 50 11/09/19 12:00 50 11/09/19 12:00 98 22 106/55 (72) 96 11/09/19 11:30 98.6 101 12 115/60 (78) 95 11/09/19 11:08 94 20 50 11/09/19 11:00 12 115/60 Mechanical Ventilator 50 11/09/19 11:00 98 22 113/54 (73) 95 11/09/19 10:30 101 22 103/54 (70) 95 Intake and Output 11/09/19 11/10/19 19:00 07:00 Intake Total 1163.40 ml 1044.2 ml Output Total 4755 ml 4800 ml Balance -3591.60 ml -3755.8 ml IV Total 1163.40 ml 1044.2 ml Output Urine Total 555 ml 600 ml Other 4200 ml 4200 ml Laboratory Tests 11/09/19 11:27: POC Whole Blood Glucose 284H 11/09/19 16:32: POC Whole Blood Glucose 336H 11/09/19 17:00: Lactic Acid Level 2.40H 11/09/19 23:15: Lactic Acid Level 2.60H 11/10/19 03:50: White Blood Count 12.1H, Red Blood Count 3.41L, Hemoglobin 9.2L, Hematocrit 30.5L, Mean Corpuscular Volume 90, Mean Corpuscular Hemoglobin 26.9L, Mean Corpuscular Hemoglobin Concent 30.0L, Red Cell Distribution Width 16.5H, Platelet Count 195, Mean Platelet Volume 6.2L, Neutrophils (%) (Auto) 84.6H, Lymphocytes (%) (Auto) 6.2L, Monocytes (%) (Auto) 8.7, Eosinophils (%) (Auto) 0.0, Basophils (%) (Auto) 0.4, Sodium Level 142, Potassium Level 4.9, Chloride Level 107, Carbon Dioxide Level 28, Anion Gap 7, Blood Urea Nitrogen 45H, Creatinine 1.3, Estimat Glomerular Filtration Rate 42.8, Glucose Level 288H, Lactic Acid Level 2.80H, Calcium Level 8.1L, Total Bilirubin 1.3H, Direct Bilirubin 0.8H, Aspartate Amino Transf (AST/SGOT) 44H, Alanine Aminotransferase (ALT/SGPT) 33, Alkaline Phosphatase 179H, Total Protein 6.1L, Albumin 2.0L, Globulin 4.1, Albumin/Globulin Ratio 0.5L 11/10/19 05:40: POC Whole Blood Glucose [Pending] 11/10/19 10:10: Lactic Acid Level [Pending] Height (Feet): 5 Height (Inches): 3.00 Weight (Pounds): 274 General Appearance: lethargic EENT: normal ENT inspection Neck: supple Respiratory/Chest: decreased breath sounds Abdomen: hypoactive bowel sounds Extremities: non-tender Case Patel MD Nov 10, 2019 10:21
--- NOTE | 2019-11-10 11:10 | Surgery Progress Note ---
Surgery Progress Note Subjective Procedure Performed Hemostasis of left nostril hemorrhage emergency Additional Comments wbc noted h/h stable doing well with trumpet deflated removal today Objective Last 24 Hour Vital Signs Date Time Temp Pulse Resp B/P (MAP) Pulse Ox O2 Delivery O2 Flow Rate FiO2 11/10/19 10:00 75 14 114/55 (74) 94 11/10/19 09:00 82 21 115/54 (74) 95 11/10/19 08:21 87 107/44 11/10/19 08:00 79 11/10/19 08:00 40 11/10/19 08:00 98.9 85 20 107/44 (65) 95 11/10/19 07:00 88 22 114/50 (71) 95 11/10/19 07:00 22 114/50 Mechanical Ventilator 40 11/10/19 06:58 92 20 40 11/10/19 06:00 21 109/56 Mechanical Ventilator 40 11/10/19 06:00 87 21 109/56 (73) 95 11/10/19 05:00 21 108/48 Mechanical Ventilator 40 11/10/19 05:00 88 21 108/48 (68) 96 11/10/19 04:00 50 11/10/19 04:00 98.9 88 22 110/54 (72) 96 11/10/19 04:00 86 11/10/19 04:00 22 110/54 Mechanical Ventilator 40 11/10/19 03:24 90 22 40 11/10/19 03:00 93 15 107/49 (68) 97 11/10/19 03:00 15 107/49 Mechanical Ventilator 40 11/10/19 02:00 94 25 108/68 (81) 99 11/10/19 02:00 25 108/68 Mechanical Ventilator 40 11/10/19 01:37 21 92/47 Mechanical Ventilator 40 11/10/19 01:00 92 21 92/55 (67) 98 11/10/19 01:00 21 92/55 Mechanical Ventilator 40 11/10/19 00:00 99.1 100 21 93/50 (64) 99 11/10/19 00:00 21 93/50 Mechanical Ventilator 40 11/10/19 00:00 40 11/10/19 00:00 94 11/10/19 00:00 Mechanical Ventilator 11/09/19 23:46 105 25 40 7/20/20 23:00 104 21 105/55 (72) 100 7/20/20 23:00 21 105/55 Mechanical Ventilator 50 7/20/20 22:00 113 14 141/81 (101) 99 7/20/20 22:00 14 141/81 Mechanical Ventilator 50 7/20/20 21:30 109 12 143/90 (107) 99 7/20/20 21:12 116 135/61 7/20/20 21:00 119 11 135/61 (85) 99 7/20/20 21:00 12 135/61 Mechanical Ventilator 50 7/20/20 20:30 115 16 143/90 (107) 99 7/20/20 20:00 98.8 113 16 137/77 (97) 98 7/20/20 20:00 50 7/20/20 20:00 16 137/77 Mechanical Ventilator 50 7/20/20 20:00 Mechanical Ventilator 7/20/20 20:00 114 7/20/20 19:39 107 22 50 7/20/20 19:30 19 159/59 Mechanical Ventilator 50 7/20/20 19:30 113 17 156/75 (102) 99 7/20/20 19:00 106 21 159/59 (92) 98 7/20/20 19:00 16 159/59 Mechanical Ventilator 50 7/20/20 18:33 106 20 147/62 (90) 99 7/20/20 18:00 104 32 135/71 (92) 97 7/20/20 18:00 32 135/71 Mechanical Ventilator 50 7/20/20 17:30 101 21 126/54 (78) 97 7/20/20 17:00 18 117/44 Mechanical Ventilator 50 7/20/20 17:00 102 18 117/44 (68) 97 7/20/20 16:30 98.3 98 22 122/60 (80) 96 7/20/20 16:00 Mechanical Ventilator 7/20/20 16:00 50 7/20/20 16:00 97 21 104/56 (72) 96 7/20/20 16:00 21 104/56 Mechanical Ventilator 50 7/20/20 16:00 86 7/20/20 15:30 96 20 100/59 (73) 96 7/20/20 15:00 95 22 122/69 (86) 100 7/20/20 15:00 22 122/69 Mechanical Ventilator 50 7/20/20 14:59 110 22 50 11/09/19 14:30 95 22 111/52 (71) 96 11/09/19 14:00 97 23 111/54 (73) 96 11/09/19 14:00 23 111/54 Mechanical Ventilator 50 11/09/19 13:00 99 22 121/52 (75) 97 11/09/19 13:00 22 121/52 Mechanical Ventilator 50 11/09/19 12:30 96 25 125/62 (83) 97 11/09/19 12:00 96 11/09/19 12:00 Mechanical Ventilator 11/09/19 12:00 22 106/55 Mechanical Ventilator 50 11/09/19 12:00 50 11/09/19 12:00 98 22 106/55 (72) 96 11/09/19 11:30 98.6 101 12 115/60 (78) 95 I&O Intake and Output 11/09/19 11/10/19 19:00 07:00 Intake Total 1163.40 ml 1044.2 ml Output Total 4755 ml 4800 ml Balance -3591.60 ml -3755.8 ml IV Total 1163.40 ml 1044.2 ml Output Urine Total 555 ml 600 ml Other 4200 ml 4200 ml Dressing: dry Wound: clean Cardiovascular: RSR Respiratory: clear, decreased breath sounds, other Abdomen: soft, non-tender, absent bowel sounds Extremities: no edema, no tenderness, no cyanosis Laboratory Tests Test 11/09/19 11:27 11/09/19 16:32 11/09/19 17:00 11/09/19 23:15 POC Whole Blood Glucose 284 MG/DL (74-106) H 336 MG/DL (74-106) H Lactic Acid Level 2.40 mmol/L (0.4-2.0) H 2.60 mmol/L (0.4-2.0) H Test 11/10/19 03:50 11/10/19 05:40 11/10/19 10:10 White Blood Count 12.1 K/UL (4.8-10.8) H Red Blood Count 3.41 M/UL (4.20-5.40) L Hemoglobin 9.2 G/DL (12.0-16.0) L Hematocrit 30.5 % (37.0-47.0) L Mean Corpuscular Volume 90 FL (80-99) Mean Corpuscular Hemoglobin 26.9 PG (27.0-31.0) L Mean Corpuscular Hemoglobin Concent 30.0 G/DL (32.0-36.0) L Red Cell Distribution Width 16.5 % (11.6-14.8) H Platelet Count 195 K/UL (150-450) Mean Platelet Volume 6.2 FL (6.5-10.1) L Neutrophils (%) (Auto) 84.6 % (45.0-75.0) H Lymphocytes (%) (Auto) 6.2 % (20.0-45.0) L Monocytes (%) (Auto) 8.7 % (1.0-10.0) Eosinophils (%) (Auto) 0.0 % (0.0-3.0) Basophils (%) (Auto) 0.4 % (0.0-2.0) Sodium Level 142 MMOL/L (136-145) Potassium Level 4.9 MMOL/L (3.5-5.1) Chloride Level 107 MMOL/L (98-107) Carbon Dioxide Level 28 MMOL/L (21-32) Anion Gap 7 mmol/L (5-15) Blood Urea Nitrogen 45 mg/dL (7-18) H Creatinine 1.3 MG/DL (0.55-1.30) Estimat Glomerular Filtration Rate 42.8 mL/min (>60) Glucose Level 288 MG/DL (74-106) H Lactic Acid Level 2.80 mmol/L (0.4-2.0) H 2.40 mmol/L (0.4-2.0) H Calcium Level 8.1 MG/DL (8.5-10.1) L Total Bilirubin 1.3 MG/DL (0.2-1.0) H Direct Bilirubin 0.8 MG/DL (0.0-0.3) H Aspartate Amino Transf (AST/SGOT) 44 U/L (15-37) H Alanine Aminotransferase (ALT/SGPT) 33 U/L (12-78) Alkaline Phosphatase 179 U/L (46-116) H Total Protein 6.1 G/DL (6.4-8.2) L Albumin 2.0 G/DL (3.4-5.0) L Globulin 4.1 g/dL Albumin/Globulin Ratio 0.5 (1.0-2.7) L POC Whole Blood Glucose Pending Plan Problems: (1) Weak (2) UTI (urinary tract infection) (3) Hypoxia (4) Epistaxis Assessment & Plan: Severe after taxis left nostril Rhino Rocket placed hemostasis noted over the course 24 hours hemoglobin stable Lovenox been stopped. The balloon of both ports of the Rhino Rocket were deflated today. The rocket itself was not removed and will monitor over the course next 24 hours hemostasis. If so will gently remove and plan for local monitoring. Currently wean ventilator as tolerated. Goals of extubation when possible. deflated balloon 11/08 removed trumpet 11/09 will monitor for bleeding wean vent plan extubation discussed with pulm (5) Fluid overload Assessment & Plan: Continue central venous catheter for now. Will anticipate removal once patient stable for extubation. Thank you for allowing me to participate patient's care (6) Diabetes (7) CHF (congestive heart failure) (8) Afib (9) Multifocal pneumonia (10) 2019 novel coronavirus disease (COVID-19) (11) Respiratory failure Ortiz Fleming Nov 10, 2019 11:10
--- NOTE | 2019-11-10 11:33 | Infectious Diseases Prog Note ---
Assessment/Plan Assessment/Plan antibiotics : zosyn, remdesivir, dexamethasone A 1. COVID 19 pneumonia on 40 percent Fi O2, PEEP %, saturation 96 percent 2. respiratory failure 3. leucocytosis improving 4. diabetes mellitus 5. hypertension P 1. continue remdesivir day 4 2. continue dexamethasone day 5 3. unable to give ivermectin as she cannot take po 4. continue zosyn 5. will follow up cultures 6. continue isolation Subjective ROS Limited/Unobtainable: Yes Allergies: Coded Allergies: No Known Allergies (Unverified , 11/06/19) Objective Last 24 Hour Vital Signs Date Time Temp Pulse Resp B/P (MAP) Pulse Ox O2 Delivery O2 Flow Rate FiO2 11/10/19 11:00 75 14 129/75 (93) 94 11/10/19 10:00 75 14 114/55 (74) 94 11/10/19 09:00 82 21 115/54 (74) 95 11/10/19 08:21 87 107/44 11/10/19 08:00 79 11/10/19 08:00 40 11/10/19 08:00 98.9 85 20 107/44 (65) 95 11/10/19 07:00 88 22 114/50 (71) 95 11/10/19 07:00 22 114/50 Mechanical Ventilator 40 11/10/19 06:58 92 20 40 11/10/19 06:00 21 109/56 Mechanical Ventilator 40 11/10/19 06:00 87 21 109/56 (73) 95 11/10/19 05:00 21 108/48 Mechanical Ventilator 40 11/10/19 05:00 88 21 108/48 (68) 96 11/10/19 04:00 50 11/10/19 04:00 98.9 88 22 110/54 (72) 96 11/10/19 04:00 86 11/10/19 04:00 22 110/54 Mechanical Ventilator 40 11/10/19 03:24 90 22 40 11/10/19 03:00 93 15 107/49 (68) 97 11/10/19 03:00 15 107/49 Mechanical Ventilator 40 11/10/19 02:00 94 25 108/68 (81) 99 11/10/19 02:00 25 108/68 Mechanical Ventilator 40 11/10/19 01:37 21 92/47 Mechanical Ventilator 40 7/21/20 01:00 92 21 92/55 (67) 98 7/21/20 01:00 21 92/55 Mechanical Ventilator 40 7/21/20 00:00 99.1 100 21 93/50 (64) 99 7/21/20 00:00 21 93/50 Mechanical Ventilator 40 7/21/20 00:00 40 7/21/20 00:00 94 7/21/20 00:00 Mechanical Ventilator 720/20 23:46 105 25 40 7/20/20 23:00 104 21 105/55 (72) 100 7/20/20 23:00 21 105/55 Mechanical Ventilator 50 7/20/20 22:00 113 14 141/81 (101) 99 7/20/20 22:00 14 141/81 Mechanical Ventilator 50 720/20 21:30 109 12 143/90 (107) 99 7/20/20 21:12 116 135/61 7/20/20 21:00 119 11 135/61 (85) 99 720/20 21:00 12 135/61 Mechanical Ventilator 50 720/20 20:30 115 16 143/90 (107) 99 7/20/20 20:00 98.8 113 16 137/77 (97) 98 7/20/20 20:00 50 7/20/20 20:00 16 137/77 Mechanical Ventilator 50 720/20 20:00 Mechanical Ventilator 720/20 20:00 114 7/20/20 19:39 107 22 50 7/20/20 19:30 19 159/59 Mechanical Ventilator 50 720/20 19:30 113 17 156/75 (102) 99 7/20/20 19:00 106 21 159/59 (92) 98 7/20/20 19:00 16 159/59 Mechanical Ventilator 50 7/20/20 18:33 106 20 147/62 (90) 99 7/20/20 18:00 104 32 135/71 (92) 97 7/20/20 18:00 32 135/71 Mechanical Ventilator 50 7/20/20 17:30 101 21 126/54 (78) 97 7/20/20 17:00 18 117/44 Mechanical Ventilator 50 7/20/20 17:00 102 18 117/44 (68) 97 7/20/20 16:30 98.3 98 22 122/60 (80) 96 7/20/20 16:00 Mechanical Ventilator 11/09/19 16:00 50 11/09/19 16:00 97 21 104/56 (72) 96 11/09/19 16:00 21 104/56 Mechanical Ventilator 50 11/09/19 16:00 86 11/09/19 15:30 96 20 100/59 (73) 96 11/09/19 15:00 95 22 122/69 (86) 100 11/09/19 15:00 22 122/69 Mechanical Ventilator 50 11/09/19 14:59 110 22 50 11/09/19 14:30 95 22 111/52 (71) 96 11/09/19 14:00 97 23 111/54 (73) 96 11/09/19 14:00 23 111/54 Mechanical Ventilator 50 11/09/19 13:00 99 22 121/52 (75) 97 11/09/19 13:00 22 121/52 Mechanical Ventilator 50 11/09/19 12:30 96 25 125/62 (83) 97 11/09/19 12:00 96 11/09/19 12:00 Mechanical Ventilator 11/09/19 12:00 22 106/55 Mechanical Ventilator 50 11/09/19 12:00 50 11/09/19 12:00 98 22 106/55 (72) 96 Height (Feet): 5 Height (Inches): 3.00 Weight (Pounds): 274 HEENT: other - intubated Laboratory Tests Test 11/09/19 16:32 11/09/19 17:00 11/09/19 23:15 11/10/19 03:50 POC Whole Blood Glucose 336 MG/DL (74-106) H Lactic Acid Level 2.40 mmol/L (0.4-2.0) H 2.60 mmol/L (0.4-2.0) H 2.80 mmol/L (0.4-2.0) H White Blood Count 12.1 K/UL (4.8-10.8) H Red Blood Count 3.41 M/UL (4.20-5.40) L Hemoglobin 9.2 G/DL (12.0-16.0) L Hematocrit 30.5 % (37.0-47.0) L Mean Corpuscular Volume 90 FL (80-99) Mean Corpuscular Hemoglobin 26.9 PG (27.0-31.0) L Mean Corpuscular Hemoglobin Concent 30.0 G/DL (32.0-36.0) L Red Cell Distribution Width 16.5 % (11.6-14.8) H Platelet Count 195 K/UL (150-450) Mean Platelet Volume 6.2 FL (6.5-10.1) L Neutrophils (%) (Auto) 84.6 % (45.0-75.0) H Lymphocytes (%) (Auto) 6.2 % (20.0-45.0) L Monocytes (%) (Auto) 8.7 % (1.0-10.0) Eosinophils (%) (Auto) 0.0 % (0.0-3.0) Basophils (%) (Auto) 0.4 % (0.0-2.0) Sodium Level 142 MMOL/L (136-145) Potassium Level 4.9 MMOL/L (3.5-5.1) Chloride Level 107 MMOL/L (98-107) Carbon Dioxide Level 28 MMOL/L (21-32) Anion Gap 7 mmol/L (5-15) Blood Urea Nitrogen 45 mg/dL (7-18) H Creatinine 1.3 MG/DL (0.55-1.30) Estimat Glomerular Filtration Rate 42.8 mL/min (>60) Glucose Level 288 MG/DL (74-106) H Calcium Level 8.1 MG/DL (8.5-10.1) L Total Bilirubin 1.3 MG/DL (0.2-1.0) H Direct Bilirubin 0.8 MG/DL (0.0-0.3) H Aspartate Amino Transf (AST/SGOT) 44 U/L (15-37) H Alanine Aminotransferase (ALT/SGPT) 33 U/L (12-78) Alkaline Phosphatase 179 U/L (46-116) H Total Protein 6.1 G/DL (6.4-8.2) L Albumin 2.0 G/DL (3.4-5.0) L Globulin 4.1 g/dL Albumin/Globulin Ratio 0.5 (1.0-2.7) L Test 11/10/19 05:40 11/10/19 10:10 POC Whole Blood Glucose Pending Lactic Acid Level 2.40 mmol/L (0.4-2.0) H Current Medications Medications (Trade) Dose Ordered Sig/Robyn Route PRN Reason Start Time Stop Time Status Last Admin Dose Admin Chlorhexidine Gluconate (Miya-Hex 2%) 1 applic DAILY@2000 TOPIC 11/08/19 21:30 02/06/20 21:29 11/09/19 20:00 Dexamethasone Sodium Phosphate (Decadron 10mg/ ml Inj) 6 mg DAILY IV 11/09/19 09:00 02/06/20 09:14 11/10/19 08:21 Dextrose (Dextrose 50%) 25 ml Q30M PRN IV Hypoglycemia 11/08/19 12:30 02/05/20 02:59 Dextrose (Dextrose 50%) 50 ml Q30M PRN IV Hypoglycemia 11/08/19 12:30 02/05/20 02:59 Dextrose/Sodium Chloride 1,000 ml @ 60 mls/hr [id number] IV 11/09/19 01:15 12/09/19 01:14 11/10/19 10:04 Famotidine (Pepcid I.v.) 20 mg Q12HR IVP 11/08/19 15:30 12/08/19 15:29 11/10/19 08:21 Fentanyl Citrate 250 ml @ 0 mls/hr Q24H IV 11/08/19 12:29 02/06/20 12:28 11/10/19 01:37 Insulin Aspart (NovoLOG) BEFORE MEALS AND HS SUBQ 11/08/19 16:30 02/05/20 06:29 11/10/19 11:15 Lorazepam (Ativan 2mg/ml 1ml) 1 mg Q4H PRN IV For Anxiety 11/08/19 12:32 11/15/19 12:31 Metoprolol Tartrate (Lopressor) 5 mg Q12HR IVP 11/09/19 21:00 02/07/20 20:59 11/09/19 21:12 Piperacillin Sod/ Tazobactam Sod 3.375 gm/Sodium Chloride 110 ml @ 27.5 mls/hr EVERY 8 HOURS IVPB 11/08/19 14:00 11/13/19 11:59 11/10/19 05:32 Remdesivir 100 mg/ Sodium Chloride 250 ml @ 250 mls/hr Q24H IV 11/08/19 13:00 11/11/19 13:59 11/09/19 13:30 Remdesivir 100 mg/ Sodium Chloride 250 ml @ 250 mls/hr Q24H IV 11/12/19 13:00 11/16/19 13:59 Rosette Bowman MD Nov 10, 2019 11:33
--- NOTE | 2019-11-10 11:50 | Hematology/Onc Progress Note ---
Assessment/Plan Assessment/Plan # Anemia of chronic disease due to underlying chronic medical issues, multifactorial v Gi bleed in this case likely related covid19+++++++++ --> Anemia workup has been ordered, rule out gi bleed --> No evidence of hemolysis is noted, peripheral smear has been reviewed. --> Hgb goal >7. Transfuse prn. --> Epogen or iron at this time is not particularly indicated --> Medications have been reviewed --> low threshold for gi evaluation in case has occult + --> hgb 10-->9.8 # Leukocytosis/elevated white blood cell count, unspecified likely related to covid19 --> have reviewed peripheral smear and bandemia/neutrophilia noted --> continue antibiotics if they have been started by ID team zosyn --> on remdesivir, dex --> monitor for resolution --> wbc 12 # COVID 19 pneumonia --> on vent --> respiratory failure # Diabetes mellitus --> iss and bs goal <140 # Hypertension --> sbp goal <150 Appreciate consultation and dw RN Subjective Constitutional: Denies: no symptoms, chills, fever, malaise, weakness, other Cardiovascular: Denies: no symptoms, chest pain, edema, irregular heart rate, lightheadedness, palpitations, syncope, other Respiratory: Denies: no symptoms, cough, shortness of breath, SOB with excertion, SOB at rest, sputum, wheezing, other Gastrointestinal/Abdominal: Denies: no symptoms, abdomen distended, abdominal pain, black stools, tarry stools, blood in stool, constipated, diarrhea, difficulty swallowing, nausea, poor appetite, poor fluid intake, rectal bleeding , vomiting, other Genitourinary: Denies: no symptoms, burning, discharge, frequency, flank pain, hematuria, incontinence, pain, urgency, other Neurologic/Psychiatric: Denies: no symptoms, anxiety, depressed, emotional problems, headache, numbness, paresthesia, pre-existing deficit, seizure, tingling, tremors, weakness, other Allergies: Coded Allergies: No Known Allergies (Unverified , 11/06/19) Subjective 11/09 weaning prn, meds reviewed, labs noted, hgb 9.2 Objective Objective Current Medications Medications (Trade) Dose Ordered Sig/Robyn Route PRN Reason Start Time Stop Time Status Last Admin Dose Admin Chlorhexidine Gluconate (Miya-Hex 2%) 1 applic DAILY@2000 TOPIC 11/08/19 21:30 02/06/20 21:29 11/09/19 20:00 Dexamethasone Sodium Phosphate (Decadron 10mg/ ml Inj) 6 mg DAILY IV 11/09/19 09:00 02/06/20 09:14 11/10/19 08:21 Dextrose (Dextrose 50%) 25 ml Q30M PRN IV Hypoglycemia 11/08/19 12:30 02/05/20 02:59 Dextrose (Dextrose 50%) 50 ml Q30M PRN IV Hypoglycemia 11/08/19 12:30 02/05/20 02:59 Dextrose/Sodium Chloride 1,000 ml @ 60 mls/hr [id number] IV 11/09/19 01:15 12/09/19 01:14 11/10/19 10:04 Famotidine (Pepcid I.v.) 20 mg Q12HR IVP 11/08/19 15:30 12/08/19 15:29 11/10/19 08:21 Fentanyl Citrate 250 ml @ 0 mls/hr Q24H IV 11/08/19 12:29 02/06/20 12:28 11/10/19 01:37 Insulin Aspart (NovoLOG) BEFORE MEALS AND HS SUBQ 11/08/19 16:30 02/05/20 06:29 11/10/19 11:15 Lorazepam (Ativan 2mg/ml 1ml) 1 mg Q4H PRN IV For Anxiety 11/08/19 12:32 11/15/19 12:31 Metoprolol Tartrate (Lopressor) 5 mg Q12HR IVP 11/09/19 21:00 02/07/20 20:59 11/09/19 21:12 Piperacillin Sod/ Tazobactam Sod 3.375 gm/Sodium Chloride 110 ml @ 27.5 mls/hr EVERY 8 HOURS IVPB 11/08/19 14:00 11/13/19 11:59 11/10/19 05:32 Remdesivir 100 mg/ Sodium Chloride 250 ml @ 250 mls/hr Q24H IV 11/08/19 13:00 11/11/19 13:59 11/09/19 13:30 Remdesivir 100 mg/ Sodium Chloride 250 ml @ 250 mls/hr Q24H IV 11/12/19 13:00 11/16/19 13:59 Last 24 Hour Vital Signs Date Time Temp Pulse Resp B/P (MAP) Pulse Ox O2 Delivery O2 Flow Rate FiO2 11/10/19 11:00 75 14 129/75 (93) 94 11/10/19 10:00 75 14 114/55 (74) 94 11/10/19 09:00 82 21 115/54 (74) 95 11/10/19 08:21 87 107/44 11/10/19 08:00 79 11/10/19 08:00 40 11/10/19 08:00 98.9 85 20 107/44 (65) 95 11/10/19 07:00 88 22 114/50 (71) 95 11/10/19 07:00 22 114/50 Mechanical Ventilator 40 11/10/19 06:58 92 20 40 11/10/19 06:00 21 109/56 Mechanical Ventilator 40 11/10/19 06:00 87 21 109/56 (73) 95 11/10/19 05:00 21 108/48 Mechanical Ventilator 40 11/10/19 05:00 88 21 108/48 (68) 96 11/10/19 04:00 50 11/10/19 04:00 98.9 88 22 110/54 (72) 96 11/10/19 04:00 86 11/10/19 04:00 22 110/54 Mechanical Ventilator 40 11/10/19 03:24 90 22 40 11/10/19 03:00 93 15 107/49 (68) 97 11/10/19 03:00 15 107/49 Mechanical Ventilator 40 11/10/19 02:00 94 25 108/68 (81) 99 11/10/19 02:00 25 108/68 Mechanical Ventilator 40 11/10/19 01:37 21 92/47 Mechanical Ventilator 40 11/10/19 01:00 92 21 92/55 (67) 98 11/10/19 01:00 21 92/55 Mechanical Ventilator 40 11/10/19 00:00 99.1 100 21 93/50 (64) 99 11/10/19 00:00 21 93/50 Mechanical Ventilator 40 11/10/19 00:00 40 11/10/19 00:00 94 11/10/19 00:00 Mechanical Ventilator 7/20/20 23:46 105 25 40 7/20/20 23:00 104 21 105/55 (72) 100 7/20/20 23:00 21 105/55 Mechanical Ventilator 50 7/20/20 22:00 113 14 141/81 (101) 99 7/20/20 22:00 14 141/81 Mechanical Ventilator 50 7/20/20 21:30 109 12 143/90 (107) 99 7/20/20 21:12 116 135/61 7/20/20 21:00 119 11 135/61 (85) 99 7/20/20 21:00 12 135/61 Mechanical Ventilator 50 7/20/20 20:30 115 16 143/90 (107) 99 7/20/20 20:00 98.8 113 16 137/77 (97) 98 7/20/20 20:00 50 7/20/20 20:00 16 137/77 Mechanical Ventilator 50 7/20/20 20:00 Mechanical Ventilator 7/20/20 20:00 114 7/20/20 19:39 107 22 50 7/20/20 19:30 19 159/59 Mechanical Ventilator 50 7/20/20 19:30 113 17 156/75 (102) 99 7/20/20 19:00 106 21 159/59 (92) 98 7/20/20 19:00 16 159/59 Mechanical Ventilator 50 7/20/20 18:33 106 20 147/62 (90) 99 7/20/20 18:00 104 32 135/71 (92) 97 7/20/20 18:00 32 135/71 Mechanical Ventilator 50 7/20/20 17:30 101 21 126/54 (78) 97 7/20/20 17:00 18 117/44 Mechanical Ventilator 50 7/20/20 17:00 102 18 117/44 (68) 97 7/20/20 16:30 98.3 98 22 122/60 (80) 96 7/20/20 16:00 Mechanical Ventilator 7/20/20 16:00 50 7/20/20 16:00 97 21 104/56 (72) 96 7/20/20 16:00 21 104/56 Mechanical Ventilator 50 7/20/20 16:00 86 7/20/20 15:30 96 20 100/59 (73) 96 7/20/20 15:00 95 22 122/69 (86) 100 7/20/20 15:00 22 122/69 Mechanical Ventilator 50 720/20 14:59 110 22 50 7/20/20 14:30 95 22 111/52 (71) 96 7/20 14:00 97 23 111/54 (73) 96 7/20/20 14:00 23 111/54 Mechanical Ventilator 50 720 13:00 99 22 121/52 (75) 97 72020 13:00 22 121/52 Mechanical Ventilator 50 7 12:30 96 25 125/62 (83) 97 72020 12:00 96 72020 12:00 Mechanical Ventilator 720 12:00 22 106/55 Mechanical Ventilator 50 11/09/19 12:00 50 7 12:00 98 22 106/55 (72) 96 7 11:30 98.6 101 12 115/60 (78) 95 7 11:08 94 20 50 7 11:00 12 115/60 Mechanical Ventilator 50 11/09/19 11:00 98 22 113/54 (73) 95 720 10:30 101 22 103/54 (70) 95 7/20/20 10:00 101 16 133/73 (93) 96 720 10:00 18 133/73 Mechanical Ventilator 50 11/09/19 09:30 98 18 111/50 (70) 96 7 09:00 18 111/50 Mechanical Ventilator 50 11/09/19 09:00 99 14 107/49 (68) 96 7 08:38 99 99/40 720 08:30 95 20 104/52 (69) 97 72020 08:00 98.9 99 17 99/40 (59) 96 72020 08:00 Mechanical Ventilator 720 08:00 100 7/20/20 08:00 17 104/52 Mechanical Ventilator 50 720 08:00 50 720/20 07:42 101 21 60 7/20/20 07:30 101 14 97/59 (72) 98 72020 07:03 17 106/57 Mechanical Ventilator 60 7 07:00 101 19 102/50 (67) 98 720 07:00 17 102/50 Mechanical Ventilator 60 11/09/19 06:00 20 109/60 Mechanical Ventilator 60 11/09/19 06:00 102 17 109/60 (76) 99 11/09/19 05:30 100 20 109/55 (73) 98 11/09/19 05:00 106 19 112/42 (65) 98 11/09/19 05:00 20 112/42 Mechanical Ventilator 60 11/09/19 04:30 104 19 110/40 (63) 99 11/09/19 04:00 117 11/09/19 04:00 20 118/43 Mechanical Ventilator 99 11/09/19 04:00 99.1 102 18 118/43 (68) 99 11/09/19 04:00 Mechanical Ventilator 11/09/19 04:00 60 11/09/19 03:30 106 20 121/82 (95) 98 11/09/19 03:15 105 20 60 11/09/19 03:00 103 20 113/52 (72) 98 11/09/19 03:00 20 113/52 Mechanical Ventilator 98 11/09/19 02:30 104 18 114/48 (70) 98 11/09/19 02:00 18 101/50 Mechanical Ventilator 60 11/09/19 02:00 104 18 101/50 (67) 98 11/09/19 01:30 101 18 109/60 (76) 98 11/09/19 01:00 18 108/50 Mechanical Ventilator 60 11/09/19 01:00 103 18 108/50 (69) 98 11/09/19 00:30 104 19 109/44 (65) 98 11/09/19 00:00 60 11/09/19 00:00 19 112/48 Mechanical Ventilator 60 11/09/19 00:00 Mechanical Ventilator 11/09/19 00:00 107 11/09/19 00:00 99.0 104 19 112/48 (69) 98 11/08/19 23:38 101 20 60 11/08/19 23:30 104 19 117/47 (70) 99 11/08/19 23:00 103 15 117/48 (71) 99 20 23:00 15 117/48 Mechanical Ventilator 60 11/08/19 22:30 107 17 115/42 (66) 99 11/08/19 22:00 102 19 117/44 (68) 99 7/19/20 22:00 19 117/44 Mechanical Ventilator 60 7/20 21:30 105 15 103/51 (68) 99 7/19/20 21:00 105 14 107/60 (76) 99 7/1920 21:00 105 95/58 7/19/20 21:00 14 107/60 Mechanical Ventilator 60 720 20:30 105 15 95/58 (70) 99 720 20:00 98.7 102 13 105/49 (67) 99 720 20:00 Mechanical Ventilator 720 20:00 60 7/19/20 20:00 13 105/49 Mechanical Ventilator 60 720 20:00 103 7/ 19:30 107 18 94/60 (71) 99 720 19:30 98 19 60 720 19:00 103 12 103/67 (79) 99 720 19:00 12 103/67 Mechanical Ventilator 60 11/08/19 18:00 19 106/64 Mechanical Ventilator 60 11/08/19 18:00 101 19 106/64 (78) 99 20 17:00 18 103/67 Mechanical Ventilator 60 20 17:00 101 18 103/67 (79) 100 11/08/19 16:00 98.4 102 16 104/62 (76) 100 20 16:00 104 11/08/19 16:00 60 20 16:00 Mechanical Ventilator 11/08/19 16:00 16 104/62 Mechanical Ventilator 60 11/08/19 15:27 103 18 60 720 15:00 20 103/78 Mechanical Ventilator 60 20 15:00 102 20 104/73 (83) 100 720 14:00 103 27 104/73 (83) 99 20 14:00 26 104/73 Mechanical Ventilator 60 11/08/19 13:30 103 27 98/64 (75) 98 719/20 13:00 106 27 94/66 (75) 97 720 12:45 108 26 98/66 (77) 97 11/08/19 12:32 27 131/74 Mechanical Ventilator 100 11/08/19 12:31 27 131/74 Mechanical Ventilator 100 7/20 12:30 111 27 115/73 (87) 97 11/08/19 12:15 113 26 121/76 (91) 97 11/08/19 12:07 26 167/83 Mechanical Ventilator 100 11/08/19 12:00 Mechanical Ventilator 11/08/19 12:00 97.7 120 25 167/83 (111) 97 11/08/19 12:00 60 11/08/19 12:00 122 Intake and Output 11/09/19 11/10/19 19:00 07:00 Intake Total 1163.40 ml 1044.2 ml Output Total 4755 ml 4800 ml Balance -3591.60 ml -3755.8 ml IV Total 1163.40 ml 1044.2 ml Output Urine Total 555 ml 600 ml Other 4200 ml 4200 ml Labs Test 11/07/19 11:52 11/08/19 07:40 11/08/19 07:44 11/08/19 07:59 Arterial Blood pH 7.364 (7.350-7.450) 7.379 (7.350-7.450) Arterial Blood Partial Pressure CO2 50.9 mmHg (35.0-45.0) 41.8 mmHg (35.0-45.0) Arterial Blood Partial Pressure O2 83.8 mmHg (75.0-100.0) 67.6 mmHg (75.0-100.0) Arterial Blood HCO3 28.4 mmol/L (22.0-26.0) 24.1 mmol/L (22.0-26.0) Arterial Blood Oxygen Saturation 95.9 % (95-100) 93.3 % (95-100) Arterial Blood Base Excess 2.0 (-2-2) -1.0 (-2-2) Steve Test Positive Positive White Blood Count 12.1 K/UL (4.8-10.8) Red Blood Count 5.11 M/UL (4.20-5.40) Hemoglobin 13.9 G/DL (12.0-16.0) Hematocrit 45.8 % (37.0-47.0) Mean Corpuscular Volume 90 FL (80-99) Mean Corpuscular Hemoglobin 27.1 PG (27.0-31.0) Mean Corpuscular Hemoglobin Concent 30.3 G/DL (32.0-36.0) Red Cell Distribution Width 16.4 % (11.6-14.8) Platelet Count 247 K/UL (150-450) Mean Platelet Volume 6.3 FL (6.5-10.1) Neutrophils (%) (Auto) 83.2 % (45.0-75.0) Lymphocytes (%) (Auto) 7.3 % (20.0-45.0) Monocytes (%) (Auto) 8.7 % (1.0-10.0) Eosinophils (%) (Auto) 0.1 % (0.0-3.0) Basophils (%) (Auto) 0.7 % (0.0-2.0) Sodium Level 135 MMOL/L (136-145) Potassium Level 4.7 MMOL/L (3.5-5.1) Chloride Level 100 MMOL/L (98-107) Carbon Dioxide Level 26 MMOL/L (21-32) Anion Gap 9 mmol/L (5-15) Blood Urea Nitrogen 25 mg/dL (7-18) Creatinine 1.3 MG/DL (0.55-1.30) Estimat Glomerular Filtration Rate 42.8 mL/min (>60) Glucose Level 237 MG/DL (74-106) Calcium Level 8.4 MG/DL (8.5-10.1) Total Bilirubin 1.6 MG/DL (0.2-1.0) Direct Bilirubin 0.9 MG/DL (0.0-0.3) Aspartate Amino Transf (AST/SGOT) 57 U/L (15-37) Alanine Aminotransferase (ALT/SGPT) 49 U/L (12-78) Alkaline Phosphatase 281 U/L (46-116) Troponin I 0.097 ng/mL (0.000-0.056) Pro-B-Type Natriuretic Peptide 3898 pg/mL (0-125) Total Protein 8.0 G/DL (6.4-8.2) Albumin 2.5 G/DL (3.4-5.0) Globulin 5.5 g/dL Albumin/Globulin Ratio 0.5 (1.0-2.7) Triglycerides Level 82 MG/DL (30-150) 83 MG/DL (30-150) Cholesterol Level 105 MG/DL (< 200) LDL Cholesterol 70 mg/dL (<100) HDL Cholesterol 30 MG/DL (40-60) Cholesterol/HDL Ratio 3.5 (3.3-4.4) Thyroid Stimulating Hormone (TSH) 6.866 uiU/mL (0.358-3.740) Free Thyroxine 0.85 NG/DL (0.76-1.46) Test 11/08/19 10:00 11/08/19 11:25 11/08/19 17:30 11/08/19 18:00 Prothrombin Time 14.1 SEC (9.30-11.50) 14.4 SEC (9.30-11.50) Prothromb Time International Ratio 1.3 (0.9-1.1) 1.3 (0.9-1.1) Arterial Blood pH 7.229 (7.350-7.450) Arterial Blood Partial Pressure CO2 65.8 mmHg (35.0-45.0) Arterial Blood Partial Pressure O2 175.9 mmHg (75.0-100.0) Arterial Blood HCO3 26.9 mmol/L (22.0-26.0) Arterial Blood Oxygen Saturation 98.7 % (95-100) Arterial Blood Base Excess -1.9 (-2-2) Steve Test Positive POC Whole Blood Glucose 254 MG/DL (74-106) White Blood Count 14.7 K/UL (4.8-10.8) Red Blood Count 3.63 M/UL (4.20-5.40) Hemoglobin 9.9 G/DL (12.0-16.0) Hematocrit 32.6 % (37.0-47.0) Mean Corpuscular Volume 90 FL (80-99) Mean Corpuscular Hemoglobin 27.1 PG (27.0-31.0) Mean Corpuscular Hemoglobin Concent 30.3 G/DL (32.0-36.0) Red Cell Distribution Width 16.8 % (11.6-14.8) Platelet Count 204 K/UL (150-450) Mean Platelet Volume 6.1 FL (6.5-10.1) Neutrophils (%) (Auto) 93.3 % (45.0-75.0) Lymphocytes (%) (Auto) 2.7 % (20.0-45.0) Monocytes (%) (Auto) 3.5 % (1.0-10.0) Eosinophils (%) (Auto) 0.0 % (0.0-3.0) Basophils (%) (Auto) 0.4 % (0.0-2.0) Activated Partial Thromboplast Time 31 SEC (23-33) Sodium Level 138 MMOL/L (136-145) Potassium Level 5.1 MMOL/L (3.5-5.1) Chloride Level 104 MMOL/L (98-107) Carbon Dioxide Level 31 MMOL/L (21-32) Anion Gap 3 mmol/L (5-15) Blood Urea Nitrogen 35 mg/dL (7-18) Creatinine 1.1 MG/DL (0.55-1.30) Estimat Glomerular Filtration Rate 51.9 mL/min (>60) Glucose Level 243 MG/DL (74-106) Calcium Level 8.0 MG/DL (8.5-10.1) Total Bilirubin 1.2 MG/DL (0.2-1.0) Direct Bilirubin 0.8 MG/DL (0.0-0.3) Aspartate Amino Transf (AST/SGOT) 41 U/L (15-37) Alanine Aminotransferase (ALT/SGPT) 37 U/L (12-78) Alkaline Phosphatase 199 U/L (46-116) Total Protein 6.1 G/DL (6.4-8.2) Albumin 1.9 G/DL (3.4-5.0) Globulin 4.2 g/dL Albumin/Globulin Ratio 0.5 (1.0-2.7) Test 11/09/19 03:20 11/09/19 05:56 11/09/19 10:00 11/09/19 11:27 White Blood Count 10.8 K/UL (4.8-10.8) Red Blood Count 3.51 M/UL (4.20-5.40) Hemoglobin 9.5 G/DL (12.0-16.0) Hematocrit 31.4 % (37.0-47.0) Mean Corpuscular Volume 89 FL (80-99) Mean Corpuscular Hemoglobin 27.1 PG (27.0-31.0) Mean Corpuscular Hemoglobin Concent 30.2 G/DL (32.0-36.0) Red Cell Distribution Width 16.2 % (11.6-14.8) Platelet Count 197 K/UL (150-450) Mean Platelet Volume 6.6 FL (6.5-10.1) Neutrophils (%) (Auto) % (45.0-75.0) Lymphocytes (%) (Auto) % (20.0-45.0) Monocytes (%) (Auto) % (1.0-10.0) Eosinophils (%) (Auto) % (0.0-3.0) Basophils (%) (Auto) % (0.0-2.0) Sodium Level 139 MMOL/L (136-145) Potassium Level 5.1 MMOL/L (3.5-5.1) Chloride Level 105 MMOL/L (98-107) Carbon Dioxide Level 29 MMOL/L (21-32) Anion Gap 5 mmol/L (5-15) Blood Urea Nitrogen 39 mg/dL (7-18) Creatinine 1.2 MG/DL (0.55-1.30) Estimat Glomerular Filtration Rate 47.0 mL/min (>60) Glucose Level 255 MG/DL (74-106) Lactic Acid Level 2.50 mmol/L (0.4-2.0) 2.10 mmol/L (0.4-2.0) Calcium Level 8.2 MG/DL (8.5-10.1) Total Bilirubin 1.3 MG/DL (0.2-1.0) Direct Bilirubin 0.8 MG/DL (0.0-0.3) Aspartate Amino Transf (AST/SGOT) 41 U/L (15-37) Alanine Aminotransferase (ALT/SGPT) 34 U/L (12-78) Alkaline Phosphatase 191 U/L (46-116) Total Protein 6.2 G/DL (6.4-8.2) Albumin 2.0 G/DL (3.4-5.0) Globulin 4.2 g/dL Albumin/Globulin Ratio 0.5 (1.0-2.7) POC Whole Blood Glucose 284 MG/DL (74-106) Test 11/09/19 16:32 11/09/19 17:00 11/09/19 23:15 11/10/19 03:50 POC Whole Blood Glucose 336 MG/DL (74-106) Lactic Acid Level 2.40 mmol/L (0.4-2.0) 2.60 mmol/L (0.4-2.0) 2.80 mmol/L (0.4-2.0) White Blood Count 12.1 K/UL (4.8-10.8) Red Blood Count 3.41 M/UL (4.20-5.40) Hemoglobin 9.2 G/DL (12.0-16.0) Hematocrit 30.5 % (37.0-47.0) Mean Corpuscular Volume 90 FL (80-99) Mean Corpuscular Hemoglobin 26.9 PG (27.0-31.0) Mean Corpuscular Hemoglobin Concent 30.0 G/DL (32.0-36.0) Red Cell Distribution Width 16.5 % (11.6-14.8) Platelet Count 195 K/UL (150-450) Mean Platelet Volume 6.2 FL (6.5-10.1) Neutrophils (%) (Auto) 84.6 % (45.0-75.0) Lymphocytes (%) (Auto) 6.2 % (20.0-45.0) Monocytes (%) (Auto) 8.7 % (1.0-10.0) Eosinophils (%) (Auto) 0.0 % (0.0-3.0) Basophils (%) (Auto) 0.4 % (0.0-2.0) Sodium Level 142 MMOL/L (136-145) Potassium Level 4.9 MMOL/L (3.5-5.1) Chloride Level 107 MMOL/L (98-107) Carbon Dioxide Level 28 MMOL/L (21-32) Anion Gap 7 mmol/L (5-15) Blood Urea Nitrogen 45 mg/dL (7-18) Creatinine 1.3 MG/DL (0.55-1.30) Estimat Glomerular Filtration Rate 42.8 mL/min (>60) Glucose Level 288 MG/DL (74-106) Calcium Level 8.1 MG/DL (8.5-10.1) Total Bilirubin 1.3 MG/DL (0.2-1.0) Direct Bilirubin 0.8 MG/DL (0.0-0.3) Aspartate Amino Transf (AST/SGOT) 44 U/L (15-37) Alanine Aminotransferase (ALT/SGPT) 33 U/L (12-78) Alkaline Phosphatase 179 U/L (46-116) Total Protein 6.1 G/DL (6.4-8.2) Albumin 2.0 G/DL (3.4-5.0) Globulin 4.1 g/dL Albumin/Globulin Ratio 0.5 (1.0-2.7) Test 11/10/19 05:40 11/10/19 10:10 Lactic Acid Level 2.40 mmol/L (0.4-2.0) Height (Feet): 5 Height (Inches): 3.00 Weight (Pounds): 274 Objective Physical Exam: Vitals: reviewed General: NAD HEENT: nc, at Neck: supple Chest: clear breath sounds on vent++ Cardiovascular: RRR, no s3, s4 Abdomen: soft, nontender, nd Extremities: no cce, normal range of motion Neuro: alert and oriented Ismael Fischer MD Nov 10, 2019 11:50
--- NOTE | 2019-11-10 12:02 | Cardiac Electrophysiology PN ---
Assessment/Plan Assessment/Plan 1. Atrial fibrillation. Off Lovenox . On metoprolol 5 mg iv BID EF 55% on echo. 2. COVID positive pneumonia. The patient is already on remdesivir and dexamethasone. 3. Diabetes, on insulin. 4. Respiratory failure on the Vent. 5. Massive nasal bleed. Now airway is protected. DW [employer] and Dr Fleming Subjective Subjective Was bleeding from nose after after Rhino removed today. Was packed. In ICU off pressors on the vent. In atrial fib . No NGT or OGT.Off Lovenox Objective Last 24 Hour Vital Signs Date Time Temp Pulse Resp B/P (MAP) Pulse Ox O2 Delivery O2 Flow Rate FiO2 11/10/19 11:00 75 14 129/75 (93) 94 11/10/19 10:00 75 14 114/55 (74) 94 11/10/19 09:00 82 21 115/54 (74) 95 11/10/19 08:21 87 107/44 11/10/19 08:00 79 11/10/19 08:00 40 11/10/19 08:00 98.9 85 20 107/44 (65) 95 11/10/19 07:00 88 22 114/50 (71) 95 11/10/19 07:00 22 114/50 Mechanical Ventilator 40 11/10/19 06:58 92 20 40 11/10/19 06:00 21 109/56 Mechanical Ventilator 40 11/10/19 06:00 87 21 109/56 (73) 95 11/10/19 05:00 21 108/48 Mechanical Ventilator 40 11/10/19 05:00 88 21 108/48 (68) 96 11/10/19 04:00 50 11/10/19 04:00 98.9 88 22 110/54 (72) 96 11/10/19 04:00 86 11/10/19 04:00 22 110/54 Mechanical Ventilator 40 11/10/19 03:24 90 22 40 11/10/19 03:00 93 15 107/49 (68) 97 11/10/19 03:00 15 107/49 Mechanical Ventilator 40 11/10/19 02:00 94 25 108/68 (81) 99 11/10/19 02:00 25 108/68 Mechanical Ventilator 40 11/10/19 01:37 21 92/47 Mechanical Ventilator 40 7/21/20 01:00 92 21 92/55 (67) 98 7/21/20 01:00 21 92/55 Mechanical Ventilator 40 7/21/20 00:00 99.1 100 21 93/50 (64) 99 7/21/20 00:00 21 93/50 Mechanical Ventilator 40 7/21/20 00:00 40 7/21/20 00:00 94 7/21/20 00:00 Mechanical Ventilator 720/20 23:46 105 25 40 7/20/20 23:00 104 21 105/55 (72) 100 7/20/20 23:00 21 105/55 Mechanical Ventilator 50 7/20/20 22:00 113 14 141/81 (101) 99 7/20/20 22:00 14 141/81 Mechanical Ventilator 50 720/20 21:30 109 12 143/90 (107) 99 7/20/20 21:12 116 135/61 7/20/20 21:00 119 11 135/61 (85) 99 720/20 21:00 12 135/61 Mechanical Ventilator 50 720/20 20:30 115 16 143/90 (107) 99 7/20/20 20:00 98.8 113 16 137/77 (97) 98 7/20/20 20:00 50 7/20/20 20:00 16 137/77 Mechanical Ventilator 50 720/20 20:00 Mechanical Ventilator 720/20 20:00 114 7/20/20 19:39 107 22 50 7/20/20 19:30 19 159/59 Mechanical Ventilator 50 7/20/20 19:30 113 17 156/75 (102) 99 7/20/20 19:00 106 21 159/59 (92) 98 7/20/20 19:00 16 159/59 Mechanical Ventilator 50 7/20/20 18:33 106 20 147/62 (90) 99 7/20/20 18:00 104 32 135/71 (92) 97 7/20/20 18:00 32 135/71 Mechanical Ventilator 50 7/20/20 17:30 101 21 126/54 (78) 97 7/20/20 17:00 18 117/44 Mechanical Ventilator 50 7/20/20 17:00 102 18 117/44 (68) 97 7/20/20 16:30 98.3 98 22 122/60 (80) 96 7/20/20 16:00 Mechanical Ventilator 11/09/19 16:00 50 11/09/19 16:00 97 21 104/56 (72) 96 11/09/19 16:00 21 104/56 Mechanical Ventilator 50 11/09/19 16:00 86 11/09/19 15:30 96 20 100/59 (73) 96 11/09/19 15:00 95 22 122/69 (86) 100 11/09/19 15:00 22 122/69 Mechanical Ventilator 50 11/09/19 14:59 110 22 50 11/09/19 14:30 95 22 111/52 (71) 96 11/09/19 14:00 97 23 111/54 (73) 96 11/09/19 14:00 23 111/54 Mechanical Ventilator 50 11/09/19 13:00 99 22 121/52 (75) 97 11/09/19 13:00 22 121/52 Mechanical Ventilator 50 11/09/19 12:30 96 25 125/62 (83) 97 Intake and Output 11/09/19 11/10/19 19:00 07:00 Intake Total 1163.40 ml 1044.2 ml Output Total 4755 ml 4800 ml Balance -3591.60 ml -3755.8 ml IV Total 1163.40 ml 1044.2 ml Output Urine Total 555 ml 600 ml Other 4200 ml 4200 ml Laboratory Tests Test 11/09/19 16:32 11/09/19 17:00 11/09/19 23:15 11/10/19 03:50 POC Whole Blood Glucose 336 MG/DL (74-106) H Lactic Acid Level 2.40 mmol/L (0.4-2.0) H 2.60 mmol/L (0.4-2.0) H 2.80 mmol/L (0.4-2.0) H White Blood Count 12.1 K/UL (4.8-10.8) H Red Blood Count 3.41 M/UL (4.20-5.40) L Hemoglobin 9.2 G/DL (12.0-16.0) L Hematocrit 30.5 % (37.0-47.0) L Mean Corpuscular Volume 90 FL (80-99) Mean Corpuscular Hemoglobin 26.9 PG (27.0-31.0) L Mean Corpuscular Hemoglobin Concent 30.0 G/DL (32.0-36.0) L Red Cell Distribution Width 16.5 % (11.6-14.8) H Platelet Count 195 K/UL (150-450) Mean Platelet Volume 6.2 FL (6.5-10.1) L Neutrophils (%) (Auto) 84.6 % (45.0-75.0) H Lymphocytes (%) (Auto) 6.2 % (20.0-45.0) L Monocytes (%) (Auto) 8.7 % (1.0-10.0) Eosinophils (%) (Auto) 0.0 % (0.0-3.0) Basophils (%) (Auto) 0.4 % (0.0-2.0) Sodium Level 142 MMOL/L (136-145) Potassium Level 4.9 MMOL/L (3.5-5.1) Chloride Level 107 MMOL/L (98-107) Carbon Dioxide Level 28 MMOL/L (21-32) Anion Gap 7 mmol/L (5-15) Blood Urea Nitrogen 45 mg/dL (7-18) H Creatinine 1.3 MG/DL (0.55-1.30) Estimat Glomerular Filtration Rate 42.8 mL/min (>60) Glucose Level 288 MG/DL (74-106) H Calcium Level 8.1 MG/DL (8.5-10.1) L Total Bilirubin 1.3 MG/DL (0.2-1.0) H Direct Bilirubin 0.8 MG/DL (0.0-0.3) H Aspartate Amino Transf (AST/SGOT) 44 U/L (15-37) H Alanine Aminotransferase (ALT/SGPT) 33 U/L (12-78) Alkaline Phosphatase 179 U/L (46-116) H Total Protein 6.1 G/DL (6.4-8.2) L Albumin 2.0 G/DL (3.4-5.0) L Globulin 4.1 g/dL Albumin/Globulin Ratio 0.5 (1.0-2.7) L Test 11/10/19 05:40 11/10/19 10:10 POC Whole Blood Glucose Pending Lactic Acid Level 2.40 mmol/L (0.4-2.0) H Objective HEAD AND NECK: Shows no JVD. Rhinorocket in her left Nostril Orally intubated LUNGS: Coarse rhonchi. CARDIOVASCULAR: Irregularly irregular. S1 and S2 with no gallop or murmur. ABDOMEN: Soft. EXTREMITIES: No pitting edema. Gabe Snell MD Nov 10, 2019 12:02
--- NOTE | 2019-11-10 12:48 | General Progress Note ---
Assessment/Plan Problem List: (1) Afib ICD Codes: I48.91 - Unspecified atrial fibrillation SNOMED: 04280083 (2) Epistaxis ICD Codes: R04.0 - Epistaxis SNOMED: 559176936 (3) Weak ICD Codes: R53.1 - Weakness SNOMED: 34571803 (4) UTI (urinary tract infection) ICD Codes: N39.0 - Urinary tract infection, site not specified SNOMED: 83632300 (5) Diabetes ICD Codes: E11.9 - Type 2 diabetes mellitus without complications SNOMED: 87626160 (6) CHF (congestive heart failure) ICD Codes: I50.9 - Heart failure, unspecified SNOMED: 91016541 (7) Multifocal pneumonia ICD Codes: J18.9 - Pneumonia, unspecified organism SNOMED: 928338772 (8) 2019 novel coronavirus disease (COVID-19) ICD Codes: U07.1 - COVID-19 SNOMED: 180313293 (9) Respiratory failure ICD Codes: J96.90 - Respiratory failure, unspecified, unspecified whether with hypoxia or hypercapnia SNOMED: 994150727 Status: unchanged Assessment/Plan: vent abx bp bs control cbc bmp am Subjective Constitutional: Reports: weakness Allergies: Coded Allergies: No Known Allergies (Unverified , 11/06/19) All Systems: reviewed and negative except above Subjective intubated sedated in icu Objective Last 24 Hour Vital Signs Date Time Temp Pulse Resp B/P (MAP) Pulse Ox O2 Delivery O2 Flow Rate FiO2 11/10/19 12:00 79 20 115/56 (75) 94 11/10/19 12:00 80 11/10/19 11:12 84 20 40 11/10/19 11:00 75 14 129/75 (93) 94 11/10/19 10:00 75 14 114/55 (74) 94 11/10/19 09:00 82 21 115/54 (74) 95 11/10/19 08:21 87 107/44 11/10/19 08:00 79 11/10/19 08:00 40 11/10/19 08:00 98.9 85 20 107/44 (65) 95 11/10/19 07:00 88 22 114/50 (71) 95 11/10/19 07:00 22 114/50 Mechanical Ventilator 40 11/10/19 06:58 92 20 40 7/21/20 06:00 21 109/56 Mechanical Ventilator 40 11/10/19 06:00 87 21 109/56 (73) 95 11/10/19 05:00 21 108/48 Mechanical Ventilator 40 11/10/19 05:00 88 21 108/48 (68) 96 11/10/19 04:00 50 11/10/19 04:00 98.9 88 22 110/54 (72) 96 11/10/19 04:00 86 11/10/19 04:00 22 110/54 Mechanical Ventilator 40 11/10/19 03:24 90 22 40 11/10/19 03:00 93 15 107/49 (68) 97 11/10/19 03:00 15 107/49 Mechanical Ventilator 40 11/10/19 02:00 94 25 108/68 (81) 99 11/10/19 02:00 25 108/68 Mechanical Ventilator 40 11/10/19 01:37 21 92/47 Mechanical Ventilator 40 11/10/19 01:00 92 21 92/55 (67) 98 11/10/19 01:00 21 92/55 Mechanical Ventilator 40 11/10/19 00:00 99.1 100 21 93/50 (64) 99 11/10/19 00:00 21 93/50 Mechanical Ventilator 40 11/10/19 00:00 40 11/10/19 00:00 94 11/10/19 00:00 Mechanical Ventilator 11/09/19 23:46 105 25 40 11/09/19 23:00 104 21 105/55 (72) 100 11/09/19 23:00 21 105/55 Mechanical Ventilator 50 11/09/19 22:00 113 14 141/81 (101) 99 11/09/19 22:00 14 141/81 Mechanical Ventilator 50 11/09/19 21:30 109 12 143/90 (107) 99 11/09/19 21:12 116 135/61 11/09/19 21:00 119 11 135/61 (85) 99 11/09/19 21:00 12 135/61 Mechanical Ventilator 50 11/09/19 20:30 115 16 143/90 (107) 99 11/09/19 20:00 98.8 113 16 137/77 (97) 98 11/09/19 20:00 50 11/09/19 20:00 16 137/77 Mechanical Ventilator 50 11/09/19 20:00 Mechanical Ventilator 11/09/19 20:00 114 11/09/19 19:39 107 22 50 11/09/19 19:30 19 159/59 Mechanical Ventilator 50 11/09/19 19:30 113 17 156/75 (102) 99 11/09/19 19:00 106 21 159/59 (92) 98 11/09/19 19:00 16 159/59 Mechanical Ventilator 50 11/09/19 18:33 106 20 147/62 (90) 99 11/09/19 18:00 104 32 135/71 (92) 97 11/09/19 18:00 32 135/71 Mechanical Ventilator 50 11/09/19 17:30 101 21 126/54 (78) 97 11/09/19 17:00 18 117/44 Mechanical Ventilator 50 11/09/19 17:00 102 18 117/44 (68) 97 11/09/19 16:30 98.3 98 22 122/60 (80) 96 11/09/19 16:00 Mechanical Ventilator 11/09/19 16:00 50 11/09/19 16:00 97 21 104/56 (72) 96 11/09/19 16:00 21 104/56 Mechanical Ventilator 50 11/09/19 16:00 86 11/09/19 15:30 96 20 100/59 (73) 96 11/09/19 15:00 95 22 122/69 (86) 100 11/09/19 15:00 22 122/69 Mechanical Ventilator 50 11/09/19 14:59 110 22 50 11/09/19 14:30 95 22 111/52 (71) 96 11/09/19 14:00 97 23 111/54 (73) 96 11/09/19 14:00 23 111/54 Mechanical Ventilator 50 11/09/19 13:00 99 22 121/52 (75) 97 11/09/19 13:00 22 121/52 Mechanical Ventilator 50 Intake and Output 11/09/19 11/10/19 19:00 07:00 Intake Total 1163.40 ml 1044.2 ml Output Total 4755 ml 4800 ml Balance -3591.60 ml -3755.8 ml IV Total 1163.40 ml 1044.2 ml Output Urine Total 555 ml 600 ml Other 4200 ml 4200 ml Laboratory Tests 11/09/19 16:32: POC Whole Blood Glucose 336H 11/09/19 17:00: Lactic Acid Level 2.40H 11/09/19 23:15: Lactic Acid Level 2.60H 11/10/19 03:50: Lactic Acid Level 2.80H, White Blood Count 12.1H, Red Blood Count 3.41L, Hemoglobin 9.2L, Hematocrit 30.5L, Mean Corpuscular Volume 90, Mean Corpuscular Hemoglobin 26.9L, Mean Corpuscular Hemoglobin Concent 30.0L, Red Cell Distribution Width 16.5H, Platelet Count 195, Mean Platelet Volume 6.2L, Neutrophils (%) (Auto) 84.6H, Lymphocytes (%) (Auto) 6.2L, Monocytes (%) (Auto) 8.7, Eosinophils (%) (Auto) 0.0, Basophils (%) (Auto) 0.4, Sodium Level 142, Potassium Level 4.9, Chloride Level 107, Carbon Dioxide Level 28, Anion Gap 7, Blood Urea Nitrogen 45H, Creatinine 1.3, Estimat Glomerular Filtration Rate 42.8 , Glucose Level 288H, Calcium Level 8.1L, Total Bilirubin 1.3H, Direct Bilirubin 0.8H, Aspartate Amino Transf (AST/SGOT) 44H, Alanine Aminotransferase (ALT/SGPT) 33, Alkaline Phosphatase 179H, Total Protein 6.1L, Albumin 2.0L, Globulin 4.1, Albumin/Globulin Ratio 0.5L 11/10/19 05:40: POC Whole Blood Glucose [Pending] 11/10/19 10:10: Lactic Acid Level 2.40H Height (Feet): 5 Height (Inches): 3.00 Weight (Pounds): 274 General Appearance: lethargic EENT: normal ENT inspection Neck: normal alignment Cardiovascular: normal rate, regular rhythm Respiratory/Chest: no respiratory distress, no accessory muscle use Extremities: normal inspection Skin: normal pigmentation Gustabo Carter DO Nov 10, 2019 12:47
[2019-11-10] MEDS: Remdesivir 100mg 100 MG in NS 230 ML IV SCH (13:53)
--- NOTE | 2019-11-10 14:08 | Diagnostic Imaging Report ---
Indication: Post orogastric tube placement Technique: Supine view of the upper abdomen Comparison: none Findings: Orogastric tube tip projects at the level of the gastric antrum in good position. Bowel gas pattern is unremarkable. Eggshell calcification projects in the right side of the abdomen. Impression: Satisfactory position of orogastric tube. ICU nurse notified at the time of interpretation
[2019-11-10] MEDS: Dyna-Hex 2% Top Sol 2oz TOPIC SCH (20:31)
[2019-11-11] VITALS (48 sets, daily range): BP systolic 99–185; BP diastolic 52–99
[2019-11-11] MEDS: D5NS 1,000 ML IV SCH ×3 (03:34→20:14)
[2019-11-11] MEDS: Piperacillin/Tazobactam 3.375 GM in NS 110 ML IVPB SCH ×3 (04:44→21:48)
[2019-11-11 05:35] LABS: INR 1.3 (0.9-1.1)
[2019-11-11 05:47] LABS: HEMATOCRIT 32.2 % (37.0-47.0); HEMOGLOBIN 9.7 G/DL (12.0-16.0); MEAN CORPUSCULAR VOLUME 90 FL (80-99); PLATELET COUNT 232 K/UL (150-450); RED CELL DISTRIBUTION WIDTH 16.3 % (11.6-14.8); WHITE BLOOD COUNT 11.1 K/UL (4.8-10.8)
[2019-11-11] MEDS: NovoLOG Insulin Flexpen SUBQ SCH ×4 (05:53→20:20)
[2019-11-11 05:57] LABS: ALANINE AMINOTRANSFERASE 36 U/L (12-78); ALBUMIN/GLOBULIN RATIO 0.5 (1.0-2.7); ALKALINE PHOSPHATASE 178 U/L (46-116); ANION GAP 8 mmol/L (5-15); ASPARTATE AMINO TRANSFERASE 40 U/L (15-37); BILIRUBIN,DIRECT 0.6 MG/DL (0.0-0.3); BLOOD UREA NITROGEN 42 mg/dL (7-18); CALCIUM 7.8 MG/DL (8.5-10.1); CARBON DIOXIDE 27 MMOL/L (21-32); CHLORIDE 110 MMOL/L (98-107); CREATININE 1.3 MG/DL (0.55-1.30); POTASSIUM 4.8 MMOL/L (3.5-5.1); SODIUM 145 MMOL/L (136-145)
[2019-11-11] MEDS: dexAMETHasone 10mg/ml Inj IV SCH (08:37)
[2019-11-11] MEDS: Metoprolol Tartrate 5mg/5ml Inj IVP SCH (08:38)
--- NOTE | 2019-11-11 10:21 | General Progress Note ---
Assessment/Plan Problem List: (1) Afib ICD Codes: I48.91 - Unspecified atrial fibrillation SNOMED: 57766678 (2) Epistaxis ICD Codes: R04.0 - Epistaxis SNOMED: 702186488 (3) Weak ICD Codes: R53.1 - Weakness SNOMED: 86360206 (4) UTI (urinary tract infection) ICD Codes: N39.0 - Urinary tract infection, site not specified SNOMED: 40740081 (5) Diabetes ICD Codes: E11.9 - Type 2 diabetes mellitus without complications SNOMED: 08546957 (6) CHF (congestive heart failure) ICD Codes: I50.9 - Heart failure, unspecified SNOMED: 44017016 (7) Multifocal pneumonia ICD Codes: J18.9 - Pneumonia, unspecified organism SNOMED: 243321608 (8) 2019 novel coronavirus disease (COVID-19) ICD Codes: U07.1 - COVID-19 SNOMED: 863397710 (9) Respiratory failure ICD Codes: J96.90 - Respiratory failure, unspecified, unspecified whether with hypoxia or hypercapnia SNOMED: 171114241 Status: unchanged Assessment/Plan: vent abx bp bs control cbc bmp am Subjective Constitutional: Reports: weakness Allergies: Coded Allergies: No Known Allergies (Unverified , 11/06/19) All Systems: reviewed and negative except above Subjective intubated sedated in icu Objective Last 24 Hour Vital Signs Date Time Temp Pulse Resp B/P (MAP) Pulse Ox O2 Delivery O2 Flow Rate FiO2 11/11/19 08:57 100 11/11/19 08:38 109 164/75 11/11/19 07:29 96 21 40 40 11/11/19 07:00 89 22 129/61 (83) 96 11/11/19 07:00 22 129/61 Mechanical Ventilator 40 11/11/19 06:30 90 22 144/60 (88) 96 11/11/19 06:30 98 22 11/11/19 06:00 90 22 140/66 (90) 96 11/11/19 06:00 22 140/66 Mechanical Ventilator 40 11/11/19 05:30 87 22 131/58 (82) 96 11/11/19 05:00 88 23 101/56 (71) 96 11/11/19 05:00 23 101/56 Mechanical Ventilator 40 11/11/19 04:30 86 22 134/70 (91) 96 11/11/19 04:00 85 11/11/19 04:00 40 11/11/19 04:00 98.7 87 22 143/62 (89) 96 11/11/19 04:00 22 143/62 Mechanical Ventilator 40 11/11/19 03:30 88 22 129/59 (82) 96 11/11/19 03:09 85 20 40 11/11/19 03:00 89 21 147/62 (90) 99 11/11/19 03:00 20 100/62 Mechanical Ventilator 40 11/11/19 02:30 85 21 136/52 (80) 96 11/11/19 02:00 82 21 137/56 (83) 96 11/11/19 02:00 20 136/52 Mechanical Ventilator 40 11/11/19 01:30 87 21 136/68 (90) 96 11/11/19 01:00 87 23 113/56 (75) 96 11/11/19 01:00 21 136/68 Mechanical Ventilator 40 11/11/19 00:30 83 16 134/55 (81) 95 11/11/19 00:00 40 11/11/19 00:00 86 11/11/19 00:00 98.8 82 20 127/58 (81) 95 11/11/19 00:00 20 134/55 Mechanical Ventilator 40 11/10/19 23:17 81 19 40 11/10/19 23:00 22 114/57 Mechanical Ventilator 40 11/10/19 23:00 86 22 114/57 (76) 97 11/10/19 22:00 20 105/64 Mechanical Ventilator 40 11/10/19 22:00 79 19 105/64 (78) 96 11/10/19 21:30 77 21 113/48 (69) 95 11/10/19 21:00 20 113/45 Mechanical Ventilator 40 11/10/19 21:00 73 22 116/52 (73) 96 11/10/19 20:32 87 125/51 11/10/19 20:30 79 20 116/51 (72) 95 11/10/19 20:00 40 11/10/19 20:00 98.5 79 21 125/51 (75) 95 11/10/19 20:00 77 11/10/19 20:00 20 116/51 Mechanical Ventilator 40 11/10/19 19:30 78 21 129/56 (80) 95 11/10/19 19:30 73 19 40 11/10/19 19:00 22 129/56 Mechanical Ventilator 40 11/10/19 19:00 79 20 118/59 (78) 99 11/10/19 18:31 79 19 126/50 (75) 95 11/10/19 18:00 98.6 73 18 126/50 (75) 95 11/10/19 17:35 80 20 130/58 (82) 95 11/10/19 17:27 24 118/48 Mechanical Ventilator 40 11/10/19 17:26 22 130/58 Mechanical Ventilator 40 11/10/19 17:00 22 130/58 Mechanical Ventilator 40 11/10/19 17:00 93 20 118/48 (71) 97 11/10/19 16:00 73 20 124/58 (80) 94 11/10/19 16:00 20 111/62 Mechanical Ventilator 40 11/10/19 16:00 40 11/10/19 16:00 75 11/10/19 15:14 68 20 40 11/10/19 15:00 74 19 111/54 (73) 95 11/10/19 15:00 21 110/61 Mechanical Ventilator 40 11/10/19 14:00 20 107/56 Mechanical Ventilator 40 11/10/19 14:00 79 20 116/57 (76) 95 11/10/19 13:00 83 26 117/46 (69) 94 11/10/19 13:00 21 123/51 Mechanical Ventilator 40 11/10/19 12:00 99.1 79 20 115/56 (75) 94 11/10/19 12:00 21 117/57 Mechanical Ventilator 40 11/10/19 12:00 79 20 115/56 (75) 94 11/10/19 12:00 40 11/10/19 12:00 80 11/10/19 11:12 84 20 40 11/10/19 11:00 21 123/70 Mechanical Ventilator 40 11/10/19 11:00 75 14 129/75 (93) 94 Intake and Output 11/10/19 11/11/19 19:00 07:00 Intake Total 1353.65 ml 1884.0 ml Output Total 4500 ml 565 ml Balance -3146.35 ml 1319.0 ml Free Water 100 ml IV Total 1233.65 ml 1064.0 ml Tube Feeding 120 ml 720 ml Output Urine Total 650 ml 565 ml Other 3850 ml Laboratory Tests 11/10/19 11:10: POC Whole Blood Glucose [Pending] 11/10/19 16:05: POC Whole Blood Glucose [Pending] 11/10/19 16:13: Lactic Acid Level 2.40H 11/11/19 02:40: Lactic Acid Level 2.90H, White Blood Count 11.1H, Red Blood Count 3.60L, Hemoglobin 9.7L, Hematocrit 32.2L, Mean Corpuscular Volume 90, Mean Corpuscular Hemoglobin 27.0, Mean Corpuscular Hemoglobin Concent 30.1L, Red Cell Distribution Width 16.3H, Platelet Count 232, Mean Platelet Volume 6.5, Neutrophils (%) (Auto) , Lymphocytes (%) (Auto) , Monocytes (%) (Auto) , Eosinophils (%) (Auto) , Basophils (%) (Auto) , Prothrombin Time 13.9H, Prothromb Time International Ratio 1.3H, Activated Partial Thromboplast Time 28 , Sodium Level 145, Potassium Level 4.8, Chloride Level 110H, Carbon Dioxide Level 27, Anion Gap 8, Blood Urea Nitrogen 42H, Creatinine 1.3, Estimat Glomerular Filtration Rate 42.8, Glucose Level 328H, Calcium Level 7.8L, Total Bilirubin 1.0, Direct Bilirubin 0.6H, Aspartate Amino Transf (AST/SGOT) 40H, Alanine Aminotransferase (ALT/SGPT) 36, Alkaline Phosphatase 178H, Total Protein 6.1L, Albumin 2.0L, Globulin 4.1, Albumin/Globulin Ratio 0.5L 11/11/19 09:48: Lactic Acid Level [Pending] 11/11/19 09:49: Arterial Blood pH 7.302L, Arterial Blood Partial Pressure CO2 48.7H, Arterial Blood Partial Pressure O2 73.8L, Arterial Blood HCO3 23.5, Arterial Blood Oxygen Saturation 92.6L, Arterial Blood Base Excess -3.1L, Steve Test Positive Height (Feet): 5 Height (Inches): 3.00 Weight (Pounds): 376 General Appearance: lethargic EENT: normal ENT inspection Neck: normal alignment Cardiovascular: normal rate, regular rhythm Respiratory/Chest: no respiratory distress, no accessory muscle use Extremities: normal inspection Skin: normal pigmentation Gustabo Carter DO Nov 11, 2019 10:21
--- NOTE | 2019-11-11 10:44 | Diagnostic Imaging Report ---
Procedure: XRAY Chest 1v Reason for study: Reason For Exam: [id number] Comparison films: 11/08/2019. FINDINGS: Endotracheal tube remains in place. Bilateral alveolar infiltrates unchanged . Cardiomegaly unchanged. CP angles are sharp. The bony thorax appear unremarkable. IMPRESSION: NO SIGNIFICANT CHANGE COMPARED TO PREVIOUS EXAM.
--- NOTE | 2019-11-11 11:11 | Infectious Diseases Prog Note ---
Assessment/Plan Assessment/Plan antibiotics : zosyn, remdesivir, dexamethasone A 1. COVID 19 pneumonia on 40 percent Fi O2, PEEP 5, saturation 100 percent 2. respiratory failure 3. leucocytosis improving 4. diabetes mellitus 5. hypertension P 1. continue remdesivir day 5 2. continue dexamethasone day 6 3. continue zosyn 4. will follow up cultures 5. continue isolation Subjective ROS Limited/Unobtainable: Yes Allergies: Coded Allergies: No Known Allergies (Unverified , 11/06/19) Objective Last 24 Hour Vital Signs Date Time Temp Pulse Resp B/P (MAP) Pulse Ox O2 Delivery O2 Flow Rate FiO2 11/11/19 10:34 105 18 40 11/11/19 08:57 100 11/11/19 08:38 109 164/75 11/11/19 07:29 96 21 40 40 11/11/19 07:00 89 22 129/61 (83) 96 11/11/19 07:00 22 129/61 Mechanical Ventilator 40 11/11/19 06:30 90 22 144/60 (88) 96 11/11/19 06:30 98 22 11/11/19 06:00 90 22 140/66 (90) 96 11/11/19 06:00 22 140/66 Mechanical Ventilator 40 11/11/19 05:30 87 22 131/58 (82) 96 11/11/19 05:00 88 23 101/56 (71) 96 11/11/19 05:00 23 101/56 Mechanical Ventilator 40 11/11/19 04:30 86 22 134/70 (91) 96 11/11/19 04:00 85 11/11/19 04:00 40 11/11/19 04:00 98.7 87 22 143/62 (89) 96 11/11/19 04:00 22 143/62 Mechanical Ventilator 40 11/11/19 03:30 88 22 129/59 (82) 96 11/11/19 03:09 85 20 40 11/11/19 03:00 89 21 147/62 (90) 99 11/11/19 03:00 20 100/62 Mechanical Ventilator 40 11/11/19 02:30 85 21 136/52 (80) 96 11/11/19 02:00 82 21 137/56 (83) 96 11/11/19 02:00 20 136/52 Mechanical Ventilator 40 11/11/19 01:30 87 21 136/68 (90) 96 11/11/19 01:00 87 23 113/56 (75) 96 11/11/19 01:00 21 136/68 Mechanical Ventilator 40 11/11/19 00:30 83 16 134/55 (81) 95 11/11/19 00:00 40 11/11/19 00:00 86 11/11/19 00:00 98.8 82 20 127/58 (81) 95 11/11/19 00:00 20 134/55 Mechanical Ventilator 40 11/10/19 23:17 81 19 40 11/10/19 23:00 22 114/57 Mechanical Ventilator 40 11/10/19 23:00 86 22 114/57 (76) 97 11/10/19 22:00 20 105/64 Mechanical Ventilator 40 11/10/19 22:00 79 19 105/64 (78) 96 11/10/19 21:30 77 21 113/48 (69) 95 11/10/19 21:00 20 113/45 Mechanical Ventilator 40 11/10/19 21:00 73 22 116/52 (73) 96 11/10/19 20:32 87 125/51 11/10/19 20:30 79 20 116/51 (72) 95 11/10/19 20:00 40 11/10/19 20:00 98.5 79 21 125/51 (75) 95 11/10/19 20:00 77 11/10/19 20:00 20 116/51 Mechanical Ventilator 40 11/10/19 19:30 78 21 129/56 (80) 95 11/10/19 19:30 73 19 40 11/10/19 19:00 22 129/56 Mechanical Ventilator 40 11/10/19 19:00 79 20 118/59 (78) 99 11/10/19 18:31 79 19 126/50 (75) 95 11/10/19 18:00 98.6 73 18 126/50 (75) 95 11/10/19 17:35 80 20 130/58 (82) 95 11/10/19 17:27 24 118/48 Mechanical Ventilator 40 11/10/19 17:26 22 130/58 Mechanical Ventilator 40 11/10/19 17:00 22 130/58 Mechanical Ventilator 40 11/10/19 17:00 93 20 118/48 (71) 97 11/10/19 16:00 73 20 124/58 (80) 94 11/10/19 16:00 20 111/62 Mechanical Ventilator 40 11/10/19 16:00 40 11/10/19 16:00 75 11/10/19 15:14 68 20 40 11/10/19 15:00 74 19 111/54 (73) 95 11/10/19 15:00 21 110/61 Mechanical Ventilator 40 11/10/19 14:00 20 107/56 Mechanical Ventilator 40 11/10/19 14:00 79 20 116/57 (76) 95 11/10/19 13:00 83 26 117/46 (69) 94 11/10/19 13:00 21 123/51 Mechanical Ventilator 40 11/10/19 12:00 99.1 79 20 115/56 (75) 94 11/10/19 12:00 21 117/57 Mechanical Ventilator 40 11/10/19 12:00 79 20 115/56 (75) 94 11/10/19 12:00 40 11/10/19 12:00 80 11/10/19 11:12 84 20 40 Height (Feet): 5 Height (Inches): 3.00 Weight (Pounds): 376 HEENT: other - intubated Laboratory Tests Test 11/10/19 11:10 11/10/19 16:05 11/10/19 16:13 11/11/19 02:40 POC Whole Blood Glucose Pending Pending Lactic Acid Level 2.40 mmol/L (0.4-2.0) H 2.90 mmol/L (0.4-2.0) H White Blood Count 11.1 K/UL (4.8-10.8) H Red Blood Count 3.60 M/UL (4.20-5.40) L Hemoglobin 9.7 G/DL (12.0-16.0) L Hematocrit 32.2 % (37.0-47.0) L Mean Corpuscular Volume 90 FL (80-99) Mean Corpuscular Hemoglobin 27.0 PG (27.0-31.0) Mean Corpuscular Hemoglobin Concent 30.1 G/DL (32.0-36.0) L Red Cell Distribution Width 16.3 % (11.6-14.8) H Platelet Count 232 K/UL (150-450) Mean Platelet Volume 6.5 FL (6.5-10.1) Neutrophils (%) (Auto) % (45.0-75.0) Lymphocytes (%) (Auto) % (20.0-45.0) Monocytes (%) (Auto) % (1.0-10.0) Eosinophils (%) (Auto) % (0.0-3.0) Basophils (%) (Auto) % (0.0-2.0) Prothrombin Time 13.9 SEC (9.30-11.50) H Prothromb Time International Ratio 1.3 (0.9-1.1) H Activated Partial Thromboplast Time 28 SEC (23-33) Sodium Level 145 MMOL/L (136-145) Potassium Level 4.8 MMOL/L (3.5-5.1) Chloride Level 110 MMOL/L (98-107) H Carbon Dioxide Level 27 MMOL/L (21-32) Anion Gap 8 mmol/L (5-15) Blood Urea Nitrogen 42 mg/dL (7-18) H Creatinine 1.3 MG/DL (0.55-1.30) Estimat Glomerular Filtration Rate 42.8 mL/min (>60) Glucose Level 328 MG/DL (74-106) H Calcium Level 7.8 MG/DL (8.5-10.1) L Total Bilirubin 1.0 MG/DL (0.2-1.0) Direct Bilirubin 0.6 MG/DL (0.0-0.3) H Aspartate Amino Transf (AST/SGOT) 40 U/L (15-37) H Alanine Aminotransferase (ALT/SGPT) 36 U/L (12-78) Alkaline Phosphatase 178 U/L (46-116) H Total Protein 6.1 G/DL (6.4-8.2) L Albumin 2.0 G/DL (3.4-5.0) L Globulin 4.1 g/dL Albumin/Globulin Ratio 0.5 (1.0-2.7) L Test 11/11/19 09:48 11/11/19 09:49 Lactic Acid Level 2.80 mmol/L (0.4-2.0) H Arterial Blood pH 7.302 (7.350-7.450) Arterial Blood Partial Pressure CO2 48.7 mmHg (35.0-45.0) H Arterial Blood Partial Pressure O2 73.8 mmHg (75.0-100.0) L Arterial Blood HCO3 23.5 mmol/L (22.0-26.0) Arterial Blood Oxygen Saturation 92.6 % (95-100) L Arterial Blood Base Excess -3.1 (-2-2) L Steve Test Positive Current Medications Medications (Trade) Dose Ordered Sig/Robyn Route PRN Reason Start Time Stop Time Status Last Admin Dose Admin Chlorhexidine Gluconate (Miya-Hex 2%) 1 applic DAILY@2000 TOPIC 11/08/19 21:30 02/06/20 21:29 11/10/19 20:31 Clonidine HCl (Catapres Tab) 0.1 mg Q2H PRN NG For High Blood Pressure 11/11/19 11:00 02/09/20 10:59 Dexamethasone Sodium Phosphate (Decadron 10mg/ ml Inj) 6 mg DAILY IV 11/09/19 09:00 02/06/20 09:14 11/11/19 08:37 Dextrose (Dextrose 50%) 25 ml Q30M PRN IV Hypoglycemia 11/08/19 12:30 02/05/20 02:59 Dextrose (Dextrose 50%) 50 ml Q30M PRN IV Hypoglycemia 11/08/19 12:30 02/05/20 02:59 Dextrose/Sodium Chloride 1,000 ml @ 60 mls/hr [id number] IV 11/09/19 01:15 12/09/19 01:14 11/11/19 03:34 Famotidine (Pepcid I.v.) 20 mg Q12HR IVP 11/08/19 15:30 12/08/19 15:29 11/11/19 08:37 Fentanyl Citrate 250 ml @ 0 mls/hr Q24H IV 11/08/19 12:29 02/06/20 12:28 11/10/19 17:27 Insulin Aspart (NovoLOG) BEFORE MEALS AND HS SUBQ 11/08/19 16:30 02/05/20 06:29 11/11/19 05:53 Lorazepam (Ativan 2mg/ml 1ml) 1 mg Q4H PRN IV For Anxiety 11/08/19 12:32 11/15/19 12:31 Metoprolol Tartrate (Lopressor) 50 mg Q12HR NG 11/11/19 11:00 02/09/20 10:59 Piperacillin Sod/ Tazobactam Sod 3.375 gm/Sodium Chloride 110 ml @ 27.5 mls/hr EVERY 8 HOURS IVPB 11/08/19 14:00 11/13/19 11:59 11/11/19 04:44 Remdesivir 100 mg/ Sodium Chloride 250 ml @ 250 mls/hr Q24H IV 11/08/19 13:00 11/11/19 13:59 11/10/19 13:53 Remdesivir 100 mg/ Sodium Chloride 250 ml @ 250 mls/hr Q24H IV 11/12/19 13:00 11/16/19 13:59 Rosette Bowman MD Nov 11, 2019 11:11
--- NOTE | 2019-11-11 11:15 | General Progress Note ---
Assessment/Plan Problem List: (1) Respiratory failure ICD Codes: J96.90 - Respiratory failure, unspecified, unspecified whether with hypoxia or hypercapnia SNOMED: 603417858 (2) 2019 novel coronavirus disease (COVID-19) ICD Codes: U07.1 - COVID-19 SNOMED: 746214023 (3) Multifocal pneumonia ICD Codes: J18.9 - Pneumonia, unspecified organism SNOMED: 191916108 (4) Afib ICD Codes: I48.91 - Unspecified atrial fibrillation SNOMED: 89774112 (5) CHF (congestive heart failure) ICD Codes: I50.9 - Heart failure, unspecified SNOMED: 14818321 (6) Diabetes ICD Codes: E11.9 - Type 2 diabetes mellitus without complications SNOMED: 41145839 (7) Fluid overload ICD Codes: E87.70 - Fluid overload, unspecified SNOMED: 45191147 (8) Epistaxis ICD Codes: R04.0 - Epistaxis SNOMED: 691056746 Status: unchanged Assessment/Plan: fu H&H prn blood transfusion tf will fu Subjective ROS Limited/Unobtainable: No Allergies: Coded Allergies: No Known Allergies (Unverified , 11/06/19) Objective Last 24 Hour Vital Signs Date Time Temp Pulse Resp B/P (MAP) Pulse Ox O2 Delivery O2 Flow Rate FiO2 11/11/19 10:34 105 18 40 11/11/19 08:57 100 11/11/19 08:38 109 164/75 11/11/19 07:29 96 21 40 40 11/11/19 07:00 89 22 129/61 (83) 96 11/11/19 07:00 22 129/61 Mechanical Ventilator 40 11/11/19 06:30 90 22 144/60 (88) 96 11/11/19 06:30 98 22 11/11/19 06:00 90 22 140/66 (90) 96 11/11/19 06:00 22 140/66 Mechanical Ventilator 40 11/11/19 05:30 87 22 131/58 (82) 96 11/11/19 05:00 88 23 101/56 (71) 96 11/11/19 05:00 23 101/56 Mechanical Ventilator 40 11/11/19 04:30 86 22 134/70 (91) 96 11/11/19 04:00 85 11/11/19 04:00 40 11/11/19 04:00 98.7 87 22 143/62 (89) 96 11/11/19 04:00 22 143/62 Mechanical Ventilator 40 11/11/19 03:30 88 22 129/59 (82) 96 11/11/19 03:09 85 20 40 11/11/19 03:00 89 21 147/62 (90) 99 11/11/19 03:00 20 100/62 Mechanical Ventilator 40 11/11/19 02:30 85 21 136/52 (80) 96 11/11/19 02:00 82 21 137/56 (83) 96 11/11/19 02:00 20 136/52 Mechanical Ventilator 40 11/11/19 01:30 87 21 136/68 (90) 96 11/11/19 01:00 87 23 113/56 (75) 96 11/11/19 01:00 21 136/68 Mechanical Ventilator 40 11/11/19 00:30 83 16 134/55 (81) 95 11/11/19 00:00 40 11/11/19 00:00 86 11/11/19 00:00 98.8 82 20 127/58 (81) 95 11/11/19 00:00 20 134/55 Mechanical Ventilator 40 11/10/19 23:17 81 19 40 11/10/19 23:00 22 114/57 Mechanical Ventilator 40 11/10/19 23:00 86 22 114/57 (76) 97 11/10/19 22:00 20 105/64 Mechanical Ventilator 40 11/10/19 22:00 79 19 105/64 (78) 96 11/10/19 21:30 77 21 113/48 (69) 95 11/10/19 21:00 20 113/45 Mechanical Ventilator 40 11/10/19 21:00 73 22 116/52 (73) 96 11/10/19 20:32 87 125/51 11/10/19 20:30 79 20 116/51 (72) 95 11/10/19 20:00 40 11/10/19 20:00 98.5 79 21 125/51 (75) 95 11/10/19 20:00 77 11/10/19 20:00 20 116/51 Mechanical Ventilator 40 11/10/19 19:30 78 21 129/56 (80) 95 7/21/20 19:30 73 19 40 11/10/19 19:00 22 129/56 Mechanical Ventilator 40 11/10/19 19:00 79 20 118/59 (78) 99 11/10/19 18:31 79 19 126/50 (75) 95 11/10/19 18:00 98.6 73 18 126/50 (75) 95 11/10/19 17:35 80 20 130/58 (82) 95 11/10/19 17:27 24 118/48 Mechanical Ventilator 40 11/10/19 17:26 22 130/58 Mechanical Ventilator 40 11/10/19 17:00 22 130/58 Mechanical Ventilator 40 11/10/19 17:00 93 20 118/48 (71) 97 11/10/19 16:00 73 20 124/58 (80) 94 11/10/19 16:00 20 111/62 Mechanical Ventilator 40 11/10/19 16:00 40 11/10/19 16:00 75 11/10/19 15:14 68 20 40 11/10/19 15:00 74 19 111/54 (73) 95 11/10/19 15:00 21 110/61 Mechanical Ventilator 40 11/10/19 14:00 20 107/56 Mechanical Ventilator 40 11/10/19 14:00 79 20 116/57 (76) 95 11/10/19 13:00 83 26 117/46 (69) 94 11/10/19 13:00 21 123/51 Mechanical Ventilator 40 11/10/19 12:00 99.1 79 20 115/56 (75) 94 11/10/19 12:00 21 117/57 Mechanical Ventilator 40 11/10/19 12:00 79 20 115/56 (75) 94 11/10/19 12:00 40 11/10/19 12:00 80 Intake and Output 11/10/19 11/11/19 19:00 07:00 Intake Total 1353.65 ml 1884.0 ml Output Total 4500 ml 565 ml Balance -3146.35 ml 1319.0 ml Free Water 100 ml IV Total 1233.65 ml 1064.0 ml Tube Feeding 120 ml 720 ml Output Urine Total 650 ml 565 ml Other 3850 ml Laboratory Tests 11/10/19 16:05: POC Whole Blood Glucose [Pending] 11/10/19 16:13: Lactic Acid Level 2.40H 11/11/19 02:40: Lactic Acid Level 2.90H, White Blood Count 11.1H, Red Blood Count 3.60L, Hemoglobin 9.7L, Hematocrit 32.2L, Mean Corpuscular Volume 90, Mean Corpuscular Hemoglobin 27.0, Mean Corpuscular Hemoglobin Concent 30.1L, Red Cell Distribution Width 16.3H, Platelet Count 232, Mean Platelet Volume 6.5, Neutrophils (%) (Auto) , Lymphocytes (%) (Auto) , Monocytes (%) (Auto) , Eosinophils (%) (Auto) , Basophils (%) (Auto) , Prothrombin Time 13.9H, Prothromb Time International Ratio 1.3H, Activated Partial Thromboplast Time 28 , Sodium Level 145, Potassium Level 4.8, Chloride Level 110H, Carbon Dioxide Level 27, Anion Gap 8, Blood Urea Nitrogen 42H, Creatinine 1.3, Estimat Glomerular Filtration Rate 42.8, Glucose Level 328H, Calcium Level 7.8L, Total Bilirubin 1.0, Direct Bilirubin 0.6H, Aspartate Amino Transf (AST/SGOT) 40H, Alanine Aminotransferase (ALT/SGPT) 36, Alkaline Phosphatase 178H, Total Protein 6.1L, Albumin 2.0L, Globulin 4.1, Albumin/Globulin Ratio 0.5L 11/11/19 09:48: Lactic Acid Level 2.80H 11/11/19 09:49: Arterial Blood pH 7.302L, Arterial Blood Partial Pressure CO2 48.7H, Arterial Blood Partial Pressure O2 73.8L, Arterial Blood HCO3 23.5, Arterial Blood Oxygen Saturation 92.6L, Arterial Blood Base Excess -3.1L, Steve Test Positive Height (Feet): 5 Height (Inches): 3.00 Weight (Pounds): 376 General Appearance: no apparent distress EENT: normal ENT inspection Neck: supple Cardiovascular: normal rate Respiratory/Chest: decreased breath sounds Abdomen: normal bowel sounds, non tender, soft Extremities: non-tender Case Patel MD Nov 11, 2019 11:15
[2019-11-11] MEDS: Metoprolol Tartrate 50mg tab NG SCH ×2 (11:32→20:14)
--- NOTE | 2019-11-11 11:47 | Hematology/Onc Progress Note ---
Assessment/Plan Assessment/Plan # Anemia of chronic disease due to underlying chronic medical issues, multifactorial v Gi bleed in this case likely related covid19+++++++++ --> Anemia workup has been ordered, rule out gi bleed --> No evidence of hemolysis is noted, peripheral smear has been reviewed. --> Hgb goal >7. Transfuse prn. --> Epogen or iron at this time is not particularly indicated --> Medications have been reviewed --> low threshold for gi evaluation in case has occult + --> hgb 10-->9.8-->9.2 # Leukocytosis/elevated white blood cell count, unspecified likely related to covid19 --> have reviewed peripheral smear and bandemia/neutrophilia noted --> continue antibiotics if they have been started by ID team [email or web address] --> on remdesivir, dex --> monitor for resolution --> wbc 12->11 # COVID 19 pneumonia --> on vent --> respiratory failure # Diabetes mellitus --> iss and bs goal <140 # Hypertension --> sbp goal <150 Appreciate consultation and jimena EL Subjective Constitutional: Denies: no symptoms, chills, fever, malaise, weakness, other Respiratory: Denies: no symptoms, cough, shortness of breath, SOB with excertion, SOB at rest, sputum, wheezing, other Gastrointestinal/Abdominal: Denies: no symptoms, abdomen distended, abdominal pain, black stools, tarry stools, blood in stool, constipated, diarrhea, difficulty swallowing, nausea, poor appetite, poor fluid intake, rectal bleeding , vomiting, other Genitourinary: Denies: no symptoms, burning, discharge, frequency, flank pain, hematuria, incontinence, pain, urgency, other Endocrine: Denies: no symptoms, excessive sweating, flushing, intolerance to cold, intolerance to heat, increased hunger, increased thirst, increased urine, unexplained weight gain, unexplained weight loss, other Allergies: Coded Allergies: No Known Allergies (Unverified , 11/06/19) Subjective 11/09 weaning prn, meds reviewed, labs noted, hgb 9.2 11/10 on vent, no bleeding, hgb remains low, jimena Rn Jose R in am Objective Objective Current Medications Medications (Trade) Dose Ordered Sig/Robyn Route PRN Reason Start Time Stop Time Status Last Admin Dose Admin Chlorhexidine Gluconate (Miya-Hex 2%) 1 applic DAILY@2000 TOPIC 11/08/19 21:30 02/06/20 21:29 11/10/19 20:31 Clonidine HCl (Catapres Tab) 0.1 mg Q2H PRN NG For High Blood Pressure 11/11/19 11:00 02/09/20 10:59 Dexamethasone Sodium Phosphate (Decadron 10mg/ ml Inj) 6 mg DAILY IV 11/09/19 09:00 02/06/20 09:14 11/11/19 08:37 Dextrose (Dextrose 50%) 25 ml Q30M PRN IV Hypoglycemia 11/08/19 12:30 02/05/20 02:59 Dextrose (Dextrose 50%) 50 ml Q30M PRN IV Hypoglycemia 11/08/19 12:30 02/05/20 02:59 Dextrose/Sodium Chloride 1,000 ml @ 60 mls/hr [id number] IV 11/09/19 01:15 12/09/19 01:14 11/11/19 03:34 Famotidine (Pepcid I.v.) 20 mg Q12HR IVP 11/08/19 15:30 12/08/19 15:29 11/11/19 08:37 Fentanyl Citrate 250 ml @ 0 mls/hr Q24H IV 11/08/19 12:29 02/06/20 12:28 11/10/19 17:27 Insulin Aspart (NovoLOG) BEFORE MEALS AND HS SUBQ 11/08/19 16:30 02/05/20 06:29 11/11/19 11:43 Lorazepam (Ativan 2mg/ml 1ml) 1 mg Q4H PRN IV For Anxiety 11/08/19 12:32 11/15/19 12:31 Metoprolol Tartrate (Lopressor) 50 mg Q12HR NG 11/11/19 11:00 02/09/20 10:59 11/11/19 11:32 Piperacillin Sod/ Tazobactam Sod 3.375 gm/Sodium Chloride 110 ml @ 27.5 mls/hr EVERY 8 HOURS IVPB 11/08/19 14:00 11/13/19 11:59 11/11/19 04:44 Remdesivir 100 mg/ Sodium Chloride 250 ml @ 250 mls/hr Q24H IV 11/08/19 13:00 11/11/19 13:59 11/10/19 13:53 Remdesivir 100 mg/ Sodium Chloride 250 ml @ 250 mls/hr Q24H IV 11/12/19 13:00 11/16/19 13:59 Last 24 Hour Vital Signs Date Time Temp Pulse Resp B/P (MAP) Pulse Ox O2 Delivery O2 Flow Rate FiO2 11/11/19 11:32 117 163/85 11/11/19 10:34 105 18 40 11/11/19 08:57 100 11/11/19 08:38 109 164/75 11/11/19 07:29 96 21 40 40 11/11/19 07:00 89 22 129/61 (83) 96 11/11/19 07:00 22 129/61 Mechanical Ventilator 40 11/11/19 06:30 90 22 144/60 (88) 96 11/11/19 06:30 98 22 11/11/19 06:00 90 22 140/66 (90) 96 11/11/19 06:00 22 140/66 Mechanical Ventilator 40 11/11/19 05:30 87 22 131/58 (82) 96 11/11/19 05:00 88 23 101/56 (71) 96 11/11/19 05:00 23 101/56 Mechanical Ventilator 40 11/11/19 04:30 86 22 134/70 (91) 96 11/11/19 04:00 85 11/11/19 04:00 40 11/11/19 04:00 98.7 87 22 143/62 (89) 96 11/11/19 04:00 22 143/62 Mechanical Ventilator 40 11/11/19 03:30 88 22 129/59 (82) 96 11/11/19 03:09 85 20 40 11/11/19 03:00 89 21 147/62 (90) 99 11/11/19 03:00 20 100/62 Mechanical Ventilator 40 11/11/19 02:30 85 21 136/52 (80) 96 11/11/19 02:00 82 21 137/56 (83) 96 11/11/19 02:00 20 136/52 Mechanical Ventilator 40 11/11/19 01:30 87 21 136/68 (90) 96 11/11/19 01:00 87 23 113/56 (75) 96 11/11/19 01:00 21 136/68 Mechanical Ventilator 40 11/11/19 00:30 83 16 134/55 (81) 95 11/11/19 00:00 40 11/11/19 00:00 86 11/11/19 00:00 98.8 82 20 127/58 (81) 95 11/11/19 00:00 20 134/55 Mechanical Ventilator 40 11/10/19 23:17 81 19 40 11/10/19 23:00 22 114/57 Mechanical Ventilator 40 11/10/19 23:00 86 22 114/57 (76) 97 11/10/19 22:00 20 105/64 Mechanical Ventilator 40 11/10/19 22:00 79 19 105/64 (78) 96 11/10/19 21:30 77 21 113/48 (69) 95 11/10/19 21:00 20 113/45 Mechanical Ventilator 40 11/10/19 21:00 73 22 116/52 (73) 96 11/10/19 20:32 87 125/51 11/10/19 20:30 79 20 116/51 (72) 95 11/10/19 20:00 40 11/10/19 20:00 98.5 79 21 125/51 (75) 95 11/10/19 20:00 77 11/10/19 20:00 20 116/51 Mechanical Ventilator 40 11/10/19 19:30 78 21 129/56 (80) 95 11/10/19 19:30 73 19 40 11/10/19 19:00 22 129/56 Mechanical Ventilator 40 11/10/19 19:00 79 20 118/59 (78) 99 11/10/19 18:31 79 19 126/50 (75) 95 11/10/19 18:00 98.6 73 18 126/50 (75) 95 11/10/19 17:35 80 20 130/58 (82) 95 11/10/19 17:27 24 118/48 Mechanical Ventilator 40 11/10/19 17:26 22 130/58 Mechanical Ventilator 40 11/10/19 17:00 22 130/58 Mechanical Ventilator 40 11/10/19 17:00 93 20 118/48 (71) 97 11/10/19 16:00 73 20 124/58 (80) 94 11/10/19 16:00 20 111/62 Mechanical Ventilator 40 11/10/19 16:00 40 7/21/20 16:00 75 11/10/19 15:14 68 20 40 11/10/19 15:00 74 19 111/54 (73) 95 11/10/19 15:00 21 110/61 Mechanical Ventilator 40 11/10/19 14:00 20 107/56 Mechanical Ventilator 40 11/10/19 14:00 79 20 116/57 (76) 95 11/10/19 13:00 83 26 117/46 (69) 94 11/10/19 13:00 21 123/51 Mechanical Ventilator 40 11/10/19 12:00 99.1 79 20 115/56 (75) 94 11/10/19 12:00 21 117/57 Mechanical Ventilator 40 11/10/19 12:00 79 20 115/56 (75) 94 11/10/19 12:00 40 11/10/19 12:00 80 11/10/19 11:12 84 20 40 11/10/19 11:00 21 123/70 Mechanical Ventilator 40 11/10/19 11:00 75 14 129/75 (93) 94 11/10/19 10:00 75 14 114/55 (74) 94 11/10/19 10:00 18 117/51 Mechanical Ventilator 40 11/10/19 09:00 82 21 115/54 (74) 95 11/10/19 09:00 20 115/54 Mechanical Ventilator 40 11/10/19 08:21 87 107/44 11/10/19 08:00 79 11/10/19 08:00 40 11/10/19 08:00 98.9 85 20 107/44 (65) 95 11/10/19 08:00 22 107/44 Mechanical Ventilator 40 11/10/19 07:00 88 22 114/50 (71) 95 11/10/19 07:00 22 114/50 Mechanical Ventilator 40 11/10/19 06:58 92 20 40 11/10/19 06:00 21 109/56 Mechanical Ventilator 40 11/10/19 06:00 87 21 109/56 (73) 95 11/10/19 05:00 21 108/48 Mechanical Ventilator 40 11/10/19 05:00 88 21 108/48 (68) 96 11/10/19 04:00 50 11/10/19 04:00 98.9 88 22 110/54 (72) 96 11/10/19 04:00 86 7 04:00 22 110/54 Mechanical Ventilator 40 7 03:24 90 22 40 7 03:00 93 15 107/49 (68) 97 11/10/19 03:00 15 107/49 Mechanical Ventilator 40 720 02:00 94 25 108/68 (81) 99 11/10/19 02:00 25 108/68 Mechanical Ventilator 40 11/10/19 01:37 21 92/47 Mechanical Ventilator 40 11/10/19 01:00 92 21 92/55 (67) 98 11/10/19 01:00 21 92/55 Mechanical Ventilator 40 11/10/19 00:00 99.1 100 21 93/50 (64) 99 11/10/19 00:00 21 93/50 Mechanical Ventilator 40 11/10/19 00:00 40 11/10/19 00:00 94 7 00:00 Mechanical Ventilator 11/09/19 23:46 105 25 40 7 23:00 104 21 105/55 (72) 100 720 23:00 21 105/55 Mechanical Ventilator 50 20 22:00 113 14 141/81 (101) 99 [id number] 22:00 14 141/81 Mechanical Ventilator 50 720 21:30 109 12 143/90 (107) 99 720/20 21:12 116 135/61 7/20/20 21:00 119 11 135/61 (85) 99 720/20 21:00 12 135/61 Mechanical Ventilator 50 [id number] 20:30 115 16 143/90 (107) 99 720/20 20:00 98.8 113 16 137/77 (97) 98 7/20/20 20:00 50 7/20/20 20:00 16 137/77 Mechanical Ventilator 50 720/20 20:00 Mechanical Ventilator 720/20 20:00 114 7/20/20 19:39 107 22 50 7/20/20 19:30 19 159/59 Mechanical Ventilator 50 7/20/20 19:30 113 17 156/75 (102) 99 7/20/20 19:00 106 21 159/59 (92) 98 7/20/20 19:00 16 159/59 Mechanical Ventilator 50 720/20 18:33 106 20 147/62 (90) 99 11/09/19 18:00 104 32 135/71 (92) 97 11/09/19 18:00 32 135/71 Mechanical Ventilator 50 11/09/19 17:30 101 21 126/54 (78) 97 11/09/19 17:00 18 117/44 Mechanical Ventilator 50 11/09/19 17:00 102 18 117/44 (68) 97 11/09/19 16:30 98.3 98 22 122/60 (80) 96 11/09/19 16:00 Mechanical Ventilator 11/09/19 16:00 50 11/09/19 16:00 97 21 104/56 (72) 96 11/09/19 16:00 21 104/56 Mechanical Ventilator 50 11/09/19 16:00 86 11/09/19 15:30 96 20 100/59 (73) 96 11/09/19 15:00 95 22 122/69 (86) 100 11/09/19 15:00 22 122/69 Mechanical Ventilator 50 11/09/19 14:59 110 22 50 11/09/19 14:30 95 22 111/52 (71) 96 11/09/19 14:00 97 23 111/54 (73) 96 11/09/19 14:00 23 111/54 Mechanical Ventilator 50 11/09/19 13:00 99 22 121/52 (75) 97 11/09/19 13:00 22 121/52 Mechanical Ventilator 50 11/09/19 12:30 96 25 125/62 (83) 97 11/09/19 12:00 96 11/09/19 12:00 Mechanical Ventilator 11/09/19 12:00 22 106/55 Mechanical Ventilator 50 11/09/19 12:00 50 11/09/19 12:00 98 22 106/55 (72) 96 Intake and Output 11/10/19 11/11/19 18:59 06:59 Intake Total 1323.65 ml 1826.5 ml Output Total 4850 ml 565 ml Balance -3526.35 ml 1261.5 ml Free Water 100 ml IV Total 1233.65 ml 1036.5 ml Tube Feeding 90 ml 690 ml Output Urine Total 650 ml 565 ml Other 4200 ml Labs Test 11/08/19 17:30 11/08/19 18:00 11/09/19 03:20 11/09/19 05:56 POC Whole Blood Glucose 254 MG/DL (74-106) White Blood Count 14.7 K/UL (4.8-10.8) 10.8 K/UL (4.8-10.8) Red Blood Count 3.63 M/UL (4.20-5.40) 3.51 M/UL (4.20-5.40) Hemoglobin 9.9 G/DL (12.0-16.0) 9.5 G/DL (12.0-16.0) Hematocrit 32.6 % (37.0-47.0) 31.4 % (37.0-47.0) Mean Corpuscular Volume 90 FL (80-99) 89 FL (80-99) Mean Corpuscular Hemoglobin 27.1 PG (27.0-31.0) 27.1 PG (27.0-31.0) Mean Corpuscular Hemoglobin Concent 30.3 G/DL (32.0-36.0) 30.2 G/DL (32.0-36.0) Red Cell Distribution Width 16.8 % (11.6-14.8) 16.2 % (11.6-14.8) Platelet Count 204 K/UL (150-450) 197 K/UL (150-450) Mean Platelet Volume 6.1 FL (6.5-10.1) 6.6 FL (6.5-10.1) Neutrophils (%) (Auto) 93.3 % (45.0-75.0) % (45.0-75.0) Lymphocytes (%) (Auto) 2.7 % (20.0-45.0) % (20.0-45.0) Monocytes (%) (Auto) 3.5 % (1.0-10.0) % (1.0-10.0) Eosinophils (%) (Auto) 0.0 % (0.0-3.0) % (0.0-3.0) Basophils (%) (Auto) 0.4 % (0.0-2.0) % (0.0-2.0) Prothrombin Time 14.4 SEC (9.30-11.50) Prothromb Time International Ratio 1.3 (0.9-1.1) Activated Partial Thromboplast Time 31 SEC (23-33) Sodium Level 138 MMOL/L (136-145) 139 MMOL/L (136-145) Potassium Level 5.1 MMOL/L (3.5-5.1) 5.1 MMOL/L (3.5-5.1) Chloride Level 104 MMOL/L (98-107) 105 MMOL/L (98-107) Carbon Dioxide Level 31 MMOL/L (21-32) 29 MMOL/L (21-32) Anion Gap 3 mmol/L (5-15) 5 mmol/L (5-15) Blood Urea Nitrogen 35 mg/dL (7-18) 39 mg/dL (7-18) Creatinine 1.1 MG/DL (0.55-1.30) 1.2 MG/DL (0.55-1.30) Estimat Glomerular Filtration Rate 51.9 mL/min (>60) 47.0 mL/min (>60) Glucose Level 243 MG/DL (74-106) 255 MG/DL (74-106) Calcium Level 8.0 MG/DL (8.5-10.1) 8.2 MG/DL (8.5-10.1) Total Bilirubin 1.2 MG/DL (0.2-1.0) 1.3 MG/DL (0.2-1.0) Direct Bilirubin 0.8 MG/DL (0.0-0.3) 0.8 MG/DL (0.0-0.3) Aspartate Amino Transf (AST/SGOT) 41 U/L (15-37) 41 U/L (15-37) Alanine Aminotransferase (ALT/SGPT) 37 U/L (12-78) 34 U/L (12-78) Alkaline Phosphatase 199 U/L (46-116) 191 U/L (46-116) Total Protein 6.1 G/DL (6.4-8.2) 6.2 G/DL (6.4-8.2) Albumin 1.9 G/DL (3.4-5.0) 2.0 G/DL (3.4-5.0) Globulin 4.2 g/dL 4.2 g/dL Albumin/Globulin Ratio 0.5 (1.0-2.7) 0.5 (1.0-2.7) Lactic Acid Level 2.50 mmol/L (0.4-2.0) Test 11/09/19 10:00 11/09/19 11:27 11/09/19 16:32 11/09/19 17:00 Lactic Acid Level 2.10 mmol/L (0.4-2.0) 2.40 mmol/L (0.4-2.0) POC Whole Blood Glucose 284 MG/DL (74-106) 336 MG/DL (74-106) Test 11/09/19 23:15 11/10/19 03:50 11/10/19 05:40 11/10/19 10:10 Lactic Acid Level 2.60 mmol/L (0.4-2.0) 2.80 mmol/L (0.4-2.0) 2.40 mmol/L (0.4-2.0) White Blood Count 12.1 K/UL (4.8-10.8) Red Blood Count 3.41 M/UL (4.20-5.40) Hemoglobin 9.2 G/DL (12.0-16.0) Hematocrit 30.5 % (37.0-47.0) Mean Corpuscular Volume 90 FL (80-99) Mean Corpuscular Hemoglobin 26.9 PG (27.0-31.0) Mean Corpuscular Hemoglobin Concent 30.0 G/DL (32.0-36.0) Red Cell Distribution Width 16.5 % (11.6-14.8) Platelet Count 195 K/UL (150-450) Mean Platelet Volume 6.2 FL (6.5-10.1) Neutrophils (%) (Auto) 84.6 % (45.0-75.0) Lymphocytes (%) (Auto) 6.2 % (20.0-45.0) Monocytes (%) (Auto) 8.7 % (1.0-10.0) Eosinophils (%) (Auto) 0.0 % (0.0-3.0) Basophils (%) (Auto) 0.4 % (0.0-2.0) Sodium Level 142 MMOL/L (136-145) Potassium Level 4.9 MMOL/L (3.5-5.1) Chloride Level 107 MMOL/L (98-107) Carbon Dioxide Level 28 MMOL/L (21-32) Anion Gap 7 mmol/L (5-15) Blood Urea Nitrogen 45 mg/dL (7-18) Creatinine 1.3 MG/DL (0.55-1.30) Estimat Glomerular Filtration Rate 42.8 mL/min (>60) Glucose Level 288 MG/DL (74-106) Calcium Level 8.1 MG/DL (8.5-10.1) Total Bilirubin 1.3 MG/DL (0.2-1.0) Direct Bilirubin 0.8 MG/DL (0.0-0.3) Aspartate Amino Transf (AST/SGOT) 44 U/L (15-37) Alanine Aminotransferase (ALT/SGPT) 33 U/L (12-78) Alkaline Phosphatase 179 U/L (46-116) Total Protein 6.1 G/DL (6.4-8.2) Albumin 2.0 G/DL (3.4-5.0) Globulin 4.1 g/dL Albumin/Globulin Ratio 0.5 (1.0-2.7) Test 11/10/19 11:10 11/10/19 16:05 11/10/19 16:13 11/11/19 02:40 Lactic Acid Level 2.40 mmol/L (0.4-2.0) 2.90 mmol/L (0.4-2.0) White Blood Count 11.1 K/UL (4.8-10.8) Red Blood Count 3.60 M/UL (4.20-5.40) Hemoglobin 9.7 G/DL (12.0-16.0) Hematocrit 32.2 % (37.0-47.0) Mean Corpuscular Volume 90 FL (80-99) Mean Corpuscular Hemoglobin 27.0 PG (27.0-31.0) Mean Corpuscular Hemoglobin Concent 30.1 G/DL (32.0-36.0) Red Cell Distribution Width 16.3 % (11.6-14.8) Platelet Count 232 K/UL (150-450) Mean Platelet Volume 6.5 FL (6.5-10.1) Neutrophils (%) (Auto) % (45.0-75.0) Lymphocytes (%) (Auto) % (20.0-45.0) Monocytes (%) (Auto) % (1.0-10.0) Eosinophils (%) (Auto) % (0.0-3.0) Basophils (%) (Auto) % (0.0-2.0) Prothrombin Time 13.9 SEC (9.30-11.50) Prothromb Time International Ratio 1.3 (0.9-1.1) Activated Partial Thromboplast Time 28 SEC (23-33) Sodium Level 145 MMOL/L (136-145) Potassium Level 4.8 MMOL/L (3.5-5.1) Chloride Level 110 MMOL/L (98-107) Carbon Dioxide Level 27 MMOL/L (21-32) Anion Gap 8 mmol/L (5-15) Blood Urea Nitrogen 42 mg/dL (7-18) Creatinine 1.3 MG/DL (0.55-1.30) Estimat Glomerular Filtration Rate 42.8 mL/min (>60) Glucose Level 328 MG/DL (74-106) Calcium Level 7.8 MG/DL (8.5-10.1) Total Bilirubin 1.0 MG/DL (0.2-1.0) Direct Bilirubin 0.6 MG/DL (0.0-0.3) Aspartate Amino Transf (AST/SGOT) 40 U/L (15-37) Alanine Aminotransferase (ALT/SGPT) 36 U/L (12-78) Alkaline Phosphatase 178 U/L (46-116) Total Protein 6.1 G/DL (6.4-8.2) Albumin 2.0 G/DL (3.4-5.0) Globulin 4.1 g/dL Albumin/Globulin Ratio 0.5 (1.0-2.7) Test 11/11/19 09:48 11/11/19 09:49 Lactic Acid Level 2.80 mmol/L (0.4-2.0) Arterial Blood pH 7.302 (7.350-7.450) Arterial Blood Partial Pressure CO2 48.7 mmHg (35.0-45.0) Arterial Blood Partial Pressure O2 73.8 mmHg (75.0-100.0) Arterial Blood HCO3 23.5 mmol/L (22.0-26.0) Arterial Blood Oxygen Saturation 92.6 % (95-100) Arterial Blood Base Excess -3.1 (-2-2) Steve Test Positive Height (Feet): 5 Height (Inches): 3.00 Weight (Pounds): 376 Objective Physical Exam: Vitals: reviewed General: NAD HEENT: nc, at Neck: supple Chest: clear breath sounds on vent++ Cardiovascular: RRR, no s3, s4 Abdomen: soft, nontender, nd Extremities: no cce, normal range of motion Neuro: alert and oriented Ismael Fischer MD Nov 11, 2019 11:47
--- NOTE | 2019-11-11 12:20 | Cardiac Electrophysiology PN ---
Assessment/Plan Assessment/Plan 1. Atrial fibrillation. Off Lovenox . Change metoprolol to 50 mg po BID EF 55% on echo. 2. HTN On Lopressor 50 bid 3. COVID positive pneumonia. On remdesivir and dexamethasone. 4. Diabetes, on insulin. 5. Respiratory failure on the Vent. 6. Massive nasal bleed. Now airway is protected. DW [facility] [employer] and Dr Fleming Subjective Subjective No more bleeding from nose after Rhino removed today. In ICU off pressors on the vent. In atrial fib . No NGT or OGT.Off Lovenox. Has OG tube now Objective Last 24 Hour Vital Signs Date Time Temp Pulse Resp B/P (MAP) Pulse Ox O2 Delivery O2 Flow Rate FiO2 11/11/19 11:32 117 163/85 11/11/19 11:30 120 17 161/91 (114) 94 11/11/19 11:00 122 20 163/85 (111) 96 11/11/19 10:34 105 18 40 11/11/19 10:30 109 17 160/90 (113) 97 11/11/19 10:04 40 11/11/19 10:00 109 15 163/88 (113) 97 11/11/19 09:30 102 17 185/72 (109) 96 11/11/19 09:00 98 19 171/85 (113) 95 11/11/19 08:57 100 11/11/19 08:56 40 11/11/19 08:38 109 164/75 11/11/19 08:30 107 18 164/75 (104) 97 11/11/19 08:00 98.0 93 23 134/53 (80) 96 11/11/19 07:30 90 21 144/63 (90) 95 11/11/19 07:29 96 21 40 40 11/11/19 07:00 89 22 129/61 (83) 96 11/11/19 07:00 22 129/61 Mechanical Ventilator 40 11/11/19 06:30 90 22 144/60 (88) 96 11/11/19 06:30 98 22 11/11/19 06:00 90 22 140/66 (90) 96 11/11/19 06:00 22 140/66 Mechanical Ventilator 40 11/11/19 05:30 87 22 131/58 (82) 96 11/11/19 05:00 88 23 101/56 (71) 96 11/11/19 05:00 23 101/56 Mechanical Ventilator 40 11/11/19 04:30 86 22 134/70 (91) 96 11/11/19 04:00 85 11/11/19 04:00 40 11/11/19 04:00 98.7 87 22 143/62 (89) 96 11/11/19 04:00 22 143/62 Mechanical Ventilator 40 11/11/19 03:30 88 22 129/59 (82) 96 11/11/19 03:09 85 20 40 11/11/19 03:00 89 21 147/62 (90) 99 11/11/19 03:00 20 100/62 Mechanical Ventilator 40 11/11/19 02:30 85 21 136/52 (80) 96 11/11/19 02:00 82 21 137/56 (83) 96 11/11/19 02:00 20 136/52 Mechanical Ventilator 40 11/11/19 01:30 87 21 136/68 (90) 96 11/11/19 01:00 87 23 113/56 (75) 96 11/11/19 01:00 21 136/68 Mechanical Ventilator 40 11/11/19 00:30 83 16 134/55 (81) 95 11/11/19 00:00 40 11/11/19 00:00 86 11/11/19 00:00 98.8 82 20 127/58 (81) 95 11/11/19 00:00 20 134/55 Mechanical Ventilator 40 11/10/19 23:17 81 19 40 11/10/19 23:00 22 114/57 Mechanical Ventilator 40 11/10/19 23:00 86 22 114/57 (76) 97 11/10/19 22:00 20 105/64 Mechanical Ventilator 40 11/10/19 22:00 79 19 105/64 (78) 96 11/10/19 21:30 77 21 113/48 (69) 95 11/10/19 21:00 20 113/45 Mechanical Ventilator 40 11/10/19 21:00 73 22 116/52 (73) 96 11/10/19 20:32 87 125/51 11/10/19 20:30 79 20 116/51 (72) 95 11/10/19 20:00 40 11/10/19 20:00 98.5 79 21 125/51 (75) 95 11/10/19 20:00 77 11/10/19 20:00 20 116/51 Mechanical Ventilator 40 11/10/19 19:30 78 21 129/56 (80) 95 11/10/19 19:30 73 19 40 11/10/19 19:00 22 129/56 Mechanical Ventilator 40 11/10/19 19:00 79 20 118/59 (78) 99 11/10/19 18:31 79 19 126/50 (75) 95 11/10/19 18:00 98.6 73 18 126/50 (75) 95 11/10/19 17:35 80 20 130/58 (82) 95 11/10/19 17:27 24 118/48 Mechanical Ventilator 40 11/10/19 17:26 22 130/58 Mechanical Ventilator 40 11/10/19 17:00 22 130/58 Mechanical Ventilator 40 11/10/19 17:00 93 20 118/48 (71) 97 11/10/19 16:00 73 20 124/58 (80) 94 11/10/19 16:00 20 111/62 Mechanical Ventilator 40 11/10/19 16:00 40 11/10/19 16:00 75 11/10/19 15:14 68 20 40 11/10/19 15:00 74 19 111/54 (73) 95 11/10/19 15:00 21 110/61 Mechanical Ventilator 40 11/10/19 14:00 20 107/56 Mechanical Ventilator 40 11/10/19 14:00 79 20 116/57 (76) 95 11/10/19 13:00 83 26 117/46 (69) 94 11/10/19 13:00 21 123/51 Mechanical Ventilator 40 Intake and Output 11/10/19 11/11/19 19:00 07:00 Intake Total 1353.65 ml 1884.0 ml Output Total 4500 ml 565 ml Balance -3146.35 ml 1319.0 ml Free Water 100 ml IV Total 1233.65 ml 1064.0 ml Tube Feeding 120 ml 720 ml Output Urine Total 650 ml 565 ml Other 3850 ml Laboratory Tests Test 11/10/19 16:05 11/10/19 16:13 11/11/19 02:40 11/11/19 09:48 POC Whole Blood Glucose Pending Lactic Acid Level 2.40 mmol/L (0.4-2.0) H 2.90 mmol/L (0.4-2.0) H 2.80 mmol/L (0.4-2.0) H White Blood Count 11.1 K/UL (4.8-10.8) H Red Blood Count 3.60 M/UL (4.20-5.40) L Hemoglobin 9.7 G/DL (12.0-16.0) L Hematocrit 32.2 % (37.0-47.0) L Mean Corpuscular Volume 90 FL (80-99) Mean Corpuscular Hemoglobin 27.0 PG (27.0-31.0) Mean Corpuscular Hemoglobin Concent 30.1 G/DL (32.0-36.0) L Red Cell Distribution Width 16.3 % (11.6-14.8) H Platelet Count 232 K/UL (150-450) Mean Platelet Volume 6.5 FL (6.5-10.1) Neutrophils (%) (Auto) % (45.0-75.0) Lymphocytes (%) (Auto) % (20.0-45.0) Monocytes (%) (Auto) % (1.0-10.0) Eosinophils (%) (Auto) % (0.0-3.0) Basophils (%) (Auto) % (0.0-2.0) Prothrombin Time 13.9 SEC (9.30-11.50) H Prothromb Time International Ratio 1.3 (0.9-1.1) H Activated Partial Thromboplast Time 28 SEC (23-33) Sodium Level 145 MMOL/L (136-145) Potassium Level 4.8 MMOL/L (3.5-5.1) Chloride Level 110 MMOL/L (98-107) H Carbon Dioxide Level 27 MMOL/L (21-32) Anion Gap 8 mmol/L (5-15) Blood Urea Nitrogen 42 mg/dL (7-18) H Creatinine 1.3 MG/DL (0.55-1.30) Estimat Glomerular Filtration Rate 42.8 mL/min (>60) Glucose Level 328 MG/DL (74-106) H Calcium Level 7.8 MG/DL (8.5-10.1) L Total Bilirubin 1.0 MG/DL (0.2-1.0) Direct Bilirubin 0.6 MG/DL (0.0-0.3) H Aspartate Amino Transf (AST/SGOT) 40 U/L (15-37) H Alanine Aminotransferase (ALT/SGPT) 36 U/L (12-78) Alkaline Phosphatase 178 U/L (46-116) H Total Protein 6.1 G/DL (6.4-8.2) L Albumin 2.0 G/DL (3.4-5.0) L Globulin 4.1 g/dL Albumin/Globulin Ratio 0.5 (1.0-2.7) L Test 11/11/19 09:49 Arterial Blood pH 7.302 (7.350-7.450) Arterial Blood Partial Pressure CO2 48.7 mmHg (35.0-45.0) H Arterial Blood Partial Pressure O2 73.8 mmHg (75.0-100.0) L Arterial Blood HCO3 23.5 mmol/L (22.0-26.0) Arterial Blood Oxygen Saturation 92.6 % (95-100) L Arterial Blood Base Excess -3.1 (-2-2) L Steve Test Positive Objective HEAD AND NECK: No JVD. Rhinorocket in her left Nostril Orally intubated LUNGS: Coarse rhonchi. CARDIOVASCULAR: Irregularly irregular. S1 and S2 with no gallop or murmur. ABDOMEN: Soft. EXTREMITIES: No pitting edema. Gabe Snell MD Nov 11, 2019 12:20
[2019-11-11] MEDS: Remdesivir 100mg 100 MG in NS 230 ML IV SCH (13:08)
[2019-11-11] MEDS: fentaNYL 2500mcg/NS 250ml 250 ML IV SCH (14:53)
--- NOTE | 2019-11-11 18:35 | Pulmonology Progress Note ---
Subjective ROS Limited/Unobtainable: No Interval Events: Intubated; no further epistaxis; packed by Dr Fleming Constitutional: Reports: other - nasal bleeding HEENT: Repors: no symptoms Respiratory: Reports: dry cough, shortness of breath Cardiovascular: Reports: no symptoms Gastrointestinal/Abdominal: Reports: no symptoms Allergies: Coded Allergies: No Known Allergies (Unverified , 11/06/19) All Systems: reviewed and negative except above Objective Last 24 Hour Vital Signs Date Time Temp Pulse Resp B/P (MAP) Pulse Ox O2 Delivery O2 Flow Rate FiO2 11/11/19 15:11 103 21 40 11/11/19 14:53 18 132/67 Mechanical Ventilator 40 11/11/19 13:00 18 154/87 Mechanical Ventilator 40 11/11/19 12:00 18 122/75 Mechanical Ventilator 40 11/11/19 11:45 17 122/75 Mechanical Ventilator 40 11/11/19 11:32 117 163/85 11/11/19 11:30 120 17 161/91 (114) 94 11/11/19 11:30 18 161/91 Mechanical Ventilator 40 11/11/19 11:15 16 163/85 Mechanical Ventilator 40 11/11/19 11:00 122 20 163/85 (111) 96 11/11/19 11:00 18 192/135 Mechanical Ventilator 40 11/11/19 10:34 105 18 40 11/11/19 10:30 109 17 160/90 (113) 97 11/11/19 10:04 40 11/11/19 10:00 109 15 163/88 (113) 97 11/11/19 09:30 102 17 185/72 (109) 96 11/11/19 09:00 98 19 171/85 (113) 95 11/11/19 08:57 100 11/11/19 08:56 40 11/11/19 08:38 109 164/75 11/11/19 08:30 107 18 164/75 (104) 97 11/11/19 08:30 24 134/53 Mechanical Ventilator 40 11/11/19 08:15 24 134/53 Mechanical Ventilator 40 11/11/19 08:00 98.0 93 23 134/53 (80) 96 11/11/19 08:00 24 134/53 Mechanical Ventilator 40 11/11/19 07:45 22 144/63 Mechanical Ventilator 40 11/11/19 07:30 90 21 144/63 (90) 95 11/11/19 07:30 22 144/63 Mechanical Ventilator 40 11/11/19 07:29 96 21 40 40 11/11/19 07:00 89 22 129/61 (83) 96 11/11/19 07:00 22 129/61 Mechanical Ventilator 40 11/11/19 06:30 90 22 144/60 (88) 96 11/11/19 06:30 98 22 11/11/19 06:00 90 22 140/66 (90) 96 11/11/19 06:00 22 140/66 Mechanical Ventilator 40 11/11/19 05:30 87 22 131/58 (82) 96 11/11/19 05:00 88 23 101/56 (71) 96 11/11/19 05:00 23 101/56 Mechanical Ventilator 40 11/11/19 04:30 86 22 134/70 (91) 96 11/11/19 04:00 85 11/11/19 04:00 40 11/11/19 04:00 98.7 87 22 143/62 (89) 96 11/11/19 04:00 22 143/62 Mechanical Ventilator 40 11/11/19 03:30 88 22 129/59 (82) 96 11/11/19 03:09 85 20 40 11/11/19 03:00 89 21 147/62 (90) 99 11/11/19 03:00 20 100/62 Mechanical Ventilator 40 11/11/19 02:30 85 21 136/52 (80) 96 11/11/19 02:00 82 21 137/56 (83) 96 11/11/19 02:00 20 136/52 Mechanical Ventilator 40 11/11/19 01:30 87 21 136/68 (90) 96 11/11/19 01:00 87 23 113/56 (75) 96 11/11/19 01:00 21 136/68 Mechanical Ventilator 40 11/11/19 00:30 83 16 134/55 (81) 95 11/11/19 00:00 40 11/11/19 00:00 86 11/11/19 00:00 98.8 82 20 127/58 (81) 95 11/11/19 00:00 20 134/55 Mechanical Ventilator 40 11/10/19 23:17 81 19 40 11/10/19 23:00 22 114/57 Mechanical Ventilator 40 11/10/19 23:00 86 22 114/57 (76) 97 11/10/19 22:00 20 105/64 Mechanical Ventilator 40 11/10/19 22:00 79 19 105/64 (78) 96 11/10/19 21:30 77 21 113/48 (69) 95 11/10/19 21:00 20 113/45 Mechanical Ventilator 40 11/10/19 21:00 73 22 116/52 (73) 96 11/10/19 20:32 87 125/51 11/10/19 20:30 79 20 116/51 (72) 95 11/10/19 20:00 40 11/10/19 20:00 98.5 79 21 125/51 (75) 95 11/10/19 20:00 77 11/10/19 20:00 20 116/51 Mechanical Ventilator 40 11/10/19 19:30 78 21 129/56 (80) 95 11/10/19 19:30 73 19 40 11/10/19 19:00 22 129/56 Mechanical Ventilator 40 11/10/19 19:00 79 20 118/59 (78) 99 Intake and Output 11/10/19 11/11/19 18:59 06:59 Intake Total 1323.65 ml 1826.5 ml Output Total 4850 ml 565 ml Balance -3526.35 ml 1261.5 ml Free Water 100 ml IV Total 1233.65 ml 1036.5 ml Tube Feeding 90 ml 690 ml Output Urine Total 650 ml 565 ml Other 4200 ml General Appearance: no acute distress HEENT: normocephalic Respiratory: decreased breath sounds Cardiovascular: normal peripheral pulses Abdomen: normal bowel sounds Extremities: no cyanosis Laboratory Tests 11/11/19 02:40: White Blood Count 11.1H, Red Blood Count 3.60L, Hemoglobin 9.7L, Hematocrit 32.2L, Mean Corpuscular Volume 90, Mean Corpuscular Hemoglobin 27.0, Mean Corpuscular Hemoglobin Concent 30.1L, Red Cell Distribution Width 16.3H, Platelet Count 232, Mean Platelet Volume 6.5, Neutrophils (%) (Auto) , Lymphocytes (%) (Auto) , Monocytes (%) (Auto) , Eosinophils (%) (Auto) , Basophils (%) (Auto) , Prothrombin Time 13.9H, Prothromb Time International Ratio 1.3H, Activated Partial Thromboplast Time 28, Sodium Level 145, Potassium Level 4.8, Chloride Level 110H, Carbon Dioxide Level 27, Anion Gap 8, Blood Urea Nitrogen 42H, Creatinine 1.3, Estimat Glomerular Filtration Rate 42.8, Glucose Level 328H, Lactic Acid Level 2.90H, Calcium Level 7.8L, Total Bilirubin 1.0, Direct Bilirubin 0.6H, Aspartate Amino Transf (AST/SGOT) 40H, Alanine Aminotransferase (ALT/SGPT) 36, Alkaline Phosphatase 178H, Total Protein 6.1L, Albumin 2.0L, Globulin 4.1, Albumin/Globulin Ratio 0.5L 11/11/19 09:48: Lactic Acid Level 2.80H 11/11/19 09:49: Arterial Blood pH 7.302L, Arterial Blood Partial Pressure CO2 48.7H, Arterial Blood Partial Pressure O2 73.8L, Arterial Blood HCO3 23.5, Arterial Blood Oxygen Saturation 92.6L, Arterial Blood Base Excess -3.1L, Steve Test Positive 11/11/19 17:34: Lactic Acid Level 2.80H Current Medications Medications (Trade) Dose Ordered Sig/Robyn Route PRN Reason Start Time Stop Time Status Last Admin Dose Admin Chlorhexidine Gluconate (Miya-Hex 2%) 1 applic DAILY@2000 TOPIC 11/08/19 21:30 02/06/20 21:29 11/10/19 20:31 Clonidine HCl (Catapres Tab) 0.1 mg Q2H PRN NG For High Blood Pressure 11/11/19 11:00 02/09/20 10:59 Dexamethasone Sodium Phosphate (Decadron 10mg/ ml Inj) 6 mg DAILY IV 11/09/19 09:00 02/06/20 09:14 11/11/19 08:37 Dextrose (Dextrose 50%) 25 ml Q30M PRN IV Hypoglycemia 11/08/19 12:30 02/05/20 02:59 Dextrose (Dextrose 50%) 50 ml Q30M PRN IV Hypoglycemia 11/08/19 12:30 02/05/20 02:59 Dextrose/Sodium Chloride 1,000 ml @ 60 mls/hr [id number] IV 11/09/19 01:15 12/09/19 01:14 11/11/19 03:34 Famotidine (Pepcid I.v.) 20 mg Q12HR IVP 11/08/19 15:30 12/08/19 15:29 11/11/19 08:37 Fentanyl Citrate 250 ml @ 0 mls/hr Q24H IV 11/08/19 12:29 02/06/20 12:28 11/11/19 14:53 Insulin Aspart (NovoLOG) BEFORE MEALS AND HS SUBQ 11/08/19 16:30 02/05/20 06:29 11/11/19 16:30 Lorazepam (Ativan 2mg/ml 1ml) 1 mg Q4H PRN IV For Anxiety 11/08/19 12:32 11/15/19 12:31 Metoprolol Tartrate (Lopressor) 50 mg Q12HR NG 11/11/19 11:00 02/09/20 10:59 11/11/19 11:32 Piperacillin Sod/ Tazobactam Sod 3.375 gm/Sodium Chloride 110 ml @ 27.5 mls/hr EVERY 8 HOURS IVPB 11/08/19 14:00 11/13/19 11:59 11/11/19 13:08 Remdesivir 100 mg/ Sodium Chloride 250 ml @ 250 mls/hr Q24H IV 11/12/19 13:00 11/16/19 13:59 Assessment/Plan Assessment/Plan IMPRESSION: 1. COVID-19 pneumonia. 2. Diabetes mellitus and hypertension. 3. Lactic acidemia. 4. Epistaxis 5. Respiratory failure DISCUSSION: Careful and close monitoring. Continue remdesivir and steroids. Vent weaning. I will follow carefully. Lakeisha Zavaleta Omar Syed MD Nov 11, 2019 18:35
[2019-11-11] MEDS: Dyna-Hex 2% Top Sol 2oz TOPIC SCH (20:14)
--- NOTE | 2019-11-11 20:42 | Surgery Progress Note ---
Surgery Progress Note Subjective Procedure Performed Hemostasis of left nostril hemorrhage emergency Symptoms: improved Objective Last 24 Hour Vital Signs Date Time Temp Pulse Resp B/P (MAP) Pulse Ox O2 Delivery O2 Flow Rate FiO2 11/11/19 20:14 112 129/77 11/11/19 20:00 40 11/11/19 19:21 106 19 40 11/11/19 18:30 105 15 152/90 (110) 97 11/11/19 18:00 18 150/71 Mechanical Ventilator 40 11/11/19 18:00 104 18 150/71 (97) 97 11/11/19 17:30 103 26 139/72 (94) 96 11/11/19 17:00 103 25 133/68 (89) 96 11/11/19 17:00 25 133/68 Mechanical Ventilator 40 11/11/19 16:30 106 19 140/81 (100) 96 11/11/19 16:00 40 11/11/19 16:00 98.3 106 21 133/71 (91) 96 11/11/19 16:00 97 11/11/19 16:00 25 133/71 Mechanical Ventilator 30 11/11/19 15:30 101 21 125/67 (86) 96 11/11/19 15:11 103 21 40 11/11/19 15:00 98 17 134/81 (98) 96 11/11/19 15:00 22 134/81 Mechanical Ventilator 40 11/11/19 14:53 18 132/67 Mechanical Ventilator 40 11/11/19 14:30 100 19 132/67 (88) 96 11/11/19 14:00 20 132/67 Mechanical Ventilator 40 11/11/19 14:00 95 19 124/65 (84) 97 11/11/19 13:30 96 16 134/66 (88) 97 11/11/19 13:00 96 17 154/87 (109) 97 11/11/19 13:00 18 154/87 Mechanical Ventilator 40 11/11/19 12:30 95 17 141/94 (110) 97 11/11/19 12:00 98.2 99 17 122/75 (91) 97 11/11/19 12:00 18 122/75 Mechanical Ventilator 40 11/11/19 12:00 96 11/11/19 11:45 17 122/75 Mechanical Ventilator 40 11/11/19 11:32 117 163/85 11/11/19 11:30 120 17 161/91 (114) 94 11/11/19 11:30 18 161/91 Mechanical Ventilator 40 11/11/19 11:15 16 163/85 Mechanical Ventilator 40 11/11/19 11:00 122 20 163/85 (111) 96 11/11/19 11:00 18 192/135 Mechanical Ventilator 40 11/11/19 10:34 105 18 40 11/11/19 10:30 109 17 160/90 (113) 97 11/11/19 10:04 40 11/11/19 10:00 109 15 163/88 (113) 97 11/11/19 09:30 102 17 185/72 (109) 96 11/11/19 09:00 98 19 171/85 (113) 95 11/11/19 08:57 100 11/11/19 08:56 40 11/11/19 08:38 109 164/75 11/11/19 08:30 107 18 164/75 (104) 97 11/11/19 08:30 24 134/53 Mechanical Ventilator 40 11/11/19 08:15 24 134/53 Mechanical Ventilator 40 11/11/19 08:00 98.0 93 23 134/53 (80) 96 11/11/19 08:00 102 11/11/19 08:00 24 134/53 Mechanical Ventilator 40 11/11/19 07:45 22 144/63 Mechanical Ventilator 40 11/11/19 07:30 90 21 144/63 (90) 95 11/11/19 07:30 22 144/63 Mechanical Ventilator 40 11/11/19 07:29 96 21 40 40 11/11/19 07:00 89 22 129/61 (83) 96 11/11/19 07:00 22 129/61 Mechanical Ventilator 40 11/11/19 06:30 90 22 144/60 (88) 96 11/11/19 06:30 98 22 11/11/19 06:00 90 22 140/66 (90) 96 11/11/19 06:00 22 140/66 Mechanical Ventilator 40 11/11/19 05:30 87 22 131/58 (82) 96 11/11/19 05:00 88 23 101/56 (71) 96 11/11/19 05:00 23 101/56 Mechanical Ventilator 40 11/11/19 04:30 86 22 134/70 (91) 96 11/11/19 04:00 85 11/11/19 04:00 40 11/11/19 04:00 98.7 87 22 143/62 (89) 96 11/11/19 04:00 22 143/62 Mechanical Ventilator 40 11/11/19 03:30 88 22 129/59 (82) 96 11/11/19 03:09 85 20 40 11/11/19 03:00 89 21 147/62 (90) 99 11/11/19 03:00 20 100/62 Mechanical Ventilator 40 11/11/19 02:30 85 21 136/52 (80) 96 11/11/19 02:00 82 21 137/56 (83) 96 11/11/19 02:00 20 136/52 Mechanical Ventilator 40 11/11/19 01:30 87 21 136/68 (90) 96 11/11/19 01:00 87 23 113/56 (75) 96 11/11/19 01:00 21 136/68 Mechanical Ventilator 40 11/11/19 00:30 83 16 134/55 (81) 95 11/11/19 00:00 40 11/11/19 00:00 86 11/11/19 00:00 98.8 82 20 127/58 (81) 95 11/11/19 00:00 20 134/55 Mechanical Ventilator 40 11/10/19 23:17 81 19 40 11/10/19 23:00 22 114/57 Mechanical Ventilator 40 11/10/19 23:00 86 22 114/57 (76) 97 11/10/19 22:00 20 105/64 Mechanical Ventilator 40 11/10/19 22:00 79 19 105/64 (78) 96 11/10/19 21:30 77 21 113/48 (69) 95 11/10/19 21:00 20 113/45 Mechanical Ventilator 40 11/10/19 21:00 73 22 116/52 (73) 96 I&O Intake and Output 11/10/19 11/11/19 19:00 07:00 Intake Total 1353.65 ml 1884.0 ml Output Total 4500 ml 565 ml Balance -3146.35 ml 1319.0 ml Free Water 100 ml IV Total 1233.65 ml 1064.0 ml Tube Feeding 120 ml 720 ml Output Urine Total 650 ml 565 ml Other 3850 ml Dressing: dry Wound: clean Cardiovascular: RSR Respiratory: clear, decreased breath sounds Abdomen: soft, non-tender, present bowel sounds Extremities: no cyanosis Laboratory Tests Test 11/11/19 02:40 11/11/19 09:48 11/11/19 09:49 11/11/19 17:34 White Blood Count 11.1 K/UL (4.8-10.8) H Red Blood Count 3.60 M/UL (4.20-5.40) L Hemoglobin 9.7 G/DL (12.0-16.0) L Hematocrit 32.2 % (37.0-47.0) L Mean Corpuscular Volume 90 FL (80-99) Mean Corpuscular Hemoglobin 27.0 PG (27.0-31.0) Mean Corpuscular Hemoglobin Concent 30.1 G/DL (32.0-36.0) L Red Cell Distribution Width 16.3 % (11.6-14.8) H Platelet Count 232 K/UL (150-450) Mean Platelet Volume 6.5 FL (6.5-10.1) Neutrophils (%) (Auto) % (45.0-75.0) Lymphocytes (%) (Auto) % (20.0-45.0) Monocytes (%) (Auto) % (1.0-10.0) Eosinophils (%) (Auto) % (0.0-3.0) Basophils (%) (Auto) % (0.0-2.0) Prothrombin Time 13.9 SEC (9.30-11.50) H Prothromb Time International Ratio 1.3 (0.9-1.1) H Activated Partial Thromboplast Time 28 SEC (23-33) Sodium Level 145 MMOL/L (136-145) Potassium Level 4.8 MMOL/L (3.5-5.1) Chloride Level 110 MMOL/L (98-107) H Carbon Dioxide Level 27 MMOL/L (21-32) Anion Gap 8 mmol/L (5-15) Blood Urea Nitrogen 42 mg/dL (7-18) H Creatinine 1.3 MG/DL (0.55-1.30) Estimat Glomerular Filtration Rate 42.8 mL/min (>60) Glucose Level 328 MG/DL (74-106) H Lactic Acid Level 2.90 mmol/L (0.4-2.0) H 2.80 mmol/L (0.4-2.0) H 2.80 mmol/L (0.4-2.0) H Calcium Level 7.8 MG/DL (8.5-10.1) L Total Bilirubin 1.0 MG/DL (0.2-1.0) Direct Bilirubin 0.6 MG/DL (0.0-0.3) H Aspartate Amino Transf (AST/SGOT) 40 U/L (15-37) H Alanine Aminotransferase (ALT/SGPT) 36 U/L (12-78) Alkaline Phosphatase 178 U/L (46-116) H Total Protein 6.1 G/DL (6.4-8.2) L Albumin 2.0 G/DL (3.4-5.0) L Globulin 4.1 g/dL Albumin/Globulin Ratio 0.5 (1.0-2.7) L Arterial Blood pH 7.302 (7.350-7.450) Arterial Blood Partial Pressure CO2 48.7 mmHg (35.0-45.0) H Arterial Blood Partial Pressure O2 73.8 mmHg (75.0-100.0) L Arterial Blood HCO3 23.5 mmol/L (22.0-26.0) Arterial Blood Oxygen Saturation 92.6 % (95-100) L Arterial Blood Base Excess -3.1 (-2-2) L Steve Test Positive Plan Problems: (1) Weak (2) UTI (urinary tract infection) (3) Hypoxia (4) Epistaxis Assessment & Plan: Severe after taxis left nostril Rhino Rocket placed hemostasis noted over the course 24 hours hemoglobin stable Lovenox been stopped. The balloon of both ports of the Rhino Rocket were deflated today. The rocket itself was not removed and will monitor over the course next 24 hours hemostasis. If so will gently remove and plan for local monitoring. Currently wean ventilator as tolerated. Goals of extubation when possible. deflated balloon 11/08 removed trumpet 11/09 will monitor for bleeding wean vent plan extubation discussed with pulm (5) Fluid overload Assessment & Plan: Continue central venous catheter for now. Will anticipate removal once patient stable for extubation. Thank you for allowing me to participate patient's care (6) Diabetes (7) CHF (congestive heart failure) (8) Afib (9) Multifocal pneumonia (10) 2019 novel coronavirus disease (COVID-19) (11) Respiratory failure Ortiz Fleming Nov 11, 2019 20:42
[2019-11-12] VITALS (44 sets, daily range): BP systolic 91–149; BP diastolic 42–98
[2019-11-12] MEDS: Acetaminophen 650mg/20.3ml NG PRN (00:22)
[2019-11-12 04:53] LABS: HEMATOCRIT 32.2 % (37.0-47.0); HEMOGLOBIN 9.7 G/DL (12.0-16.0); MEAN CORPUSCULAR VOLUME 90 FL (80-99); PLATELET COUNT 222 K/UL (150-450); RED BLOOD COUNT 3.57 M/UL (4.20-5.40); RED CELL DISTRIBUTION WIDTH 16.5 % (11.6-14.8); WHITE BLOOD COUNT 11.1 K/UL (4.8-10.8)
[2019-11-12] MEDS: NovoLOG Insulin Flexpen SUBQ SCH ×4 (05:05→20:11)
[2019-11-12] MEDS: Piperacillin/Tazobactam 3.375 GM in NS 110 ML IVPB SCH (05:05)
[2019-11-12 05:28] LABS: ALANINE AMINOTRANSFERASE 39 U/L (12-78); ALBUMIN/GLOBULIN RATIO 0.5 (1.0-2.7); ALKALINE PHOSPHATASE 184 U/L (46-116); ANION GAP 8 mmol/L (5-15); ASPARTATE AMINO TRANSFERASE 41 U/L (15-37); BILIRUBIN,DIRECT 0.7 MG/DL (0.0-0.3); BILIRUBIN,TOTAL 1.1 MG/DL (0.2-1.0); BLOOD UREA NITROGEN 49 mg/dL (7-18); CARBON DIOXIDE 27 MMOL/L (21-32); CHLORIDE 112 MMOL/L (98-107); CREATININE 1.5 MG/DL (0.55-1.30); POTASSIUM 4.8 MMOL/L (3.5-5.1); SODIUM 147 MMOL/L (136-145)
--- NOTE | 2019-11-12 06:32 | Hematology/Onc Progress Note ---
Assessment/Plan Assessment/Plan # Anemia of chronic disease due to underlying chronic medical issues, multifactorial v Gi bleed in this case likely related covid19+++++++++ --> Anemia workup has been ordered, rule out gi bleed --> No evidence of hemolysis is noted, peripheral smear has been reviewed. --> Hgb goal >7. Transfuse prn. --> Epogen or iron at this time is not particularly indicated --> Medications have been reviewed --> low threshold for gi evaluation in case has occult + --> hgb 10-->9.8-->9.2-->9.7 # Leukocytosis/elevated white blood cell count, unspecified likely related to covid19 --> have reviewed peripheral smear and bandemia/neutrophilia noted --> continue antibiotics if they have been started by ID team zosyn --> on remdesivir, dex --> monitor for resolution --> wbc 12->11-->11 # COVID 19 pneumonia --> on vent --> respiratory failure # Diabetes mellitus --> iss and bs goal <140 # Hypertension --> sbp goal <150 Appreciate consultation and jimena EL Subjective Cardiovascular: Denies: no symptoms, chest pain, edema, irregular heart rate, lightheadedness, palpitations, syncope, other Respiratory: Denies: no symptoms, cough, shortness of breath, SOB with excertion, SOB at rest, sputum, wheezing, other Genitourinary: Denies: no symptoms, burning, discharge, frequency, flank pain, hematuria, incontinence, pain, urgency, other Neurologic/Psychiatric: Denies: no symptoms, anxiety, depressed, emotional problems, headache, numbness, paresthesia, pre-existing deficit, seizure, tingling, tremors, weakness, other Endocrine: Denies: no symptoms, excessive sweating, flushing, intolerance to cold, intolerance to heat, increased hunger, increased thirst, increased urine, unexplained weight gain, unexplained weight loss, other Allergies: Coded Allergies: No Known Allergies (Unverified , 11/06/19) Subjective 11/09 weaning prn, meds reviewed, labs noted, hgb 9.2 11/10 on vent, no bleeding, hgb remains low, jimena Rn Jose R in am 11/11 on vent, fluids, ogf tube as well, labs pending in am Objective Objective Current Medications Medications (Trade) Dose Ordered Sig/Robyn Route PRN Reason Start Time Stop Time Status Last Admin Dose Admin Acetaminophen (Tylenol) 650 mg Q6H PRN NG Temp >100.5 11/12/19 00:15 12/12/19 00:14 11/12/19 00:22 Chlorhexidine Gluconate (Miya-Hex 2%) 1 applic DAILY@2000 TOPIC 11/08/19 21:30 02/06/20 21:29 11/11/19 20:14 Clonidine HCl (Catapres Tab) 0.1 mg Q2H PRN NG For High Blood Pressure 11/11/19 11:00 02/09/20 10:59 Dexamethasone Sodium Phosphate (Decadron 10mg/ ml Inj) 6 mg DAILY IV 11/09/19 09:00 02/06/20 09:14 11/11/19 08:37 Dextrose (Dextrose 50%) 25 ml Q30M PRN IV Hypoglycemia 11/08/19 12:30 02/05/20 02:59 Dextrose (Dextrose 50%) 50 ml Q30M PRN IV Hypoglycemia 11/08/19 12:30 02/05/20 02:59 Dextrose/Sodium Chloride 1,000 ml @ 60 mls/hr [id number] IV 11/09/19 01:15 12/09/19 01:14 11/11/19 20:14 Famotidine (Pepcid I.v.) 20 mg Q12HR IVP 11/08/19 15:30 12/08/19 15:29 11/11/19 20:14 Fentanyl Citrate 250 ml @ 0 mls/hr Q24H IV 11/08/19 12:29 02/06/20 12:28 11/11/19 14:53 Insulin Aspart (NovoLOG) BEFORE MEALS AND HS SUBQ 11/08/19 16:30 02/05/20 06:29 11/12/19 05:05 Lorazepam (Ativan 2mg/ml 1ml) 1 mg Q4H PRN IV For Anxiety 11/08/19 12:32 11/15/19 12:31 Metoprolol Tartrate (Lopressor) 50 mg Q12HR NG 11/11/19 11:00 02/09/20 10:59 11/11/19 20:14 Piperacillin Sod/ Tazobactam Sod 3.375 gm/Sodium Chloride 110 ml @ 27.5 mls/hr EVERY 8 HOURS IVPB 11/08/19 14:00 11/13/19 11:59 11/12/19 05:05 Remdesivir 100 mg/ Sodium Chloride 250 ml @ 250 mls/hr Q24H IV 11/12/19 13:00 11/16/19 13:59 Last 24 Hour Vital Signs Date Time Temp Pulse Resp B/P (MAP) Pulse Ox O2 Delivery O2 Flow Rate FiO2 11/12/19 06:00 67 22 99/49 (66) 96 11/12/19 06:00 21 99/49 Mechanical Ventilator 40 11/12/19 05:30 75 21 136/67 (90) 96 11/12/19 05:00 21 96/52 Mechanical Ventilator 40 11/12/19 05:00 72 23 96/52 (67) 97 11/12/19 04:30 75 23 106/58 (74) 97 11/12/19 04:00 21 96/63 Mechanical Ventilator 40 11/12/19 04:00 40 11/12/19 04:00 65 11/12/19 04:00 99.7 70 21 96/63 (74) 96 11/12/19 03:30 71 22 97/58 (71) 98 11/12/19 03:00 72 20 108/54 (72) 100 11/12/19 03:00 77 21 40 11/12/19 03:00 21 108/54 Mechanical Ventilator 40 11/12/19 02:30 75 23 119/63 (81) 98 11/12/19 02:00 71 24 103/51 (68) 97 11/12/19 01:30 74 24 93/47 (62) 96 11/12/19 01:00 77 25 94/42 (59) 97 11/12/19 01:00 25 94/42 Mechanical Ventilator 40 11/12/19 00:52 100.3 11/12/19 00:30 84 24 102/53 (69) 97 11/12/19 00:00 23 101/46 Mechanical Ventilator 40 11/12/19 00:00 40 11/12/19 00:00 100.7 87 23 101/46 (64) 97 11/12/19 00:00 98 11/11/19 23:30 94 23 99/55 (70) 98 11/11/19 23:00 24 115/64 Mechanical Ventilator 40 11/11/19 23:00 101 24 115/64 (81) 98 11/11/19 22:41 103 18 40 11/11/19 22:30 108 23 123/76 (92) 98 11/11/19 22:00 101 23 146/99 (115) 98 11/11/19 22:00 25 146/99 Mechanical Ventilator 40 11/11/19 21:30 97 18 144/96 (112) 97 11/11/19 21:00 19 126/76 Mechanical Ventilator 40 11/11/19 21:00 96 18 126/76 (93) 97 11/11/19 20:30 104 18 143/73 (96) 97 11/11/19 20:14 112 129/77 11/11/19 20:00 40 11/11/19 20:00 19 129/77 Mechanical Ventilator 40 11/11/19 20:00 100.3 107 21 129/77 (94) 96 11/11/19 20:00 99 11/11/19 19:30 107 21 128/67 (87) 97 11/11/19 19:21 106 19 40 11/11/19 19:00 17 137/77 Mechanical Ventilator 40 11/11/19 19:00 106 16 137/77 (97) 97 11/11/19 18:30 105 15 152/90 (110) 97 11/11/19 18:00 18 150/71 Mechanical Ventilator 40 11/11/19 18:00 104 18 150/71 (97) 97 11/11/19 17:30 103 26 139/72 (94) 96 11/11/19 17:00 103 25 133/68 (89) 96 11/11/19 17:00 25 133/68 Mechanical Ventilator 40 11/11/19 16:30 106 19 140/81 (100) 96 11/11/19 16:00 40 11/11/19 16:00 98.3 106 21 133/71 (91) 96 11/11/19 16:00 97 11/11/19 16:00 25 133/71 Mechanical Ventilator 30 11/11/19 15:30 101 21 125/67 (86) 96 11/11/19 15:11 103 21 40 11/11/19 15:00 98 17 134/81 (98) 96 11/11/19 15:00 22 134/81 Mechanical Ventilator 40 11/11/19 14:53 18 132/67 Mechanical Ventilator 40 11/11/19 14:30 100 19 132/67 (88) 96 11/11/19 14:00 20 132/67 Mechanical Ventilator 40 11/11/19 14:00 95 19 124/65 (84) 97 11/11/19 13:30 96 16 134/66 (88) 97 11/11/19 13:00 96 17 154/87 (109) 97 11/11/19 13:00 18 154/87 Mechanical Ventilator 40 11/11/19 12:30 95 17 141/94 (110) 97 11/11/19 12:00 98.2 99 17 122/75 (91) 97 11/11/19 12:00 18 122/75 Mechanical Ventilator 40 11/11/19 12:00 96 11/11/19 11:45 17 122/75 Mechanical Ventilator 40 11/11/19 11:32 117 163/85 11/11/19 11:30 120 17 161/91 (114) 94 11/11/19 11:30 18 161/91 Mechanical Ventilator 40 11/11/19 11:15 16 163/85 Mechanical Ventilator 40 11/11/19 11:00 122 20 163/85 (111) 96 11/11/19 11:00 18 192/135 Mechanical Ventilator 40 11/11/19 10:34 105 18 40 11/11/19 10:30 109 17 160/90 (113) 97 11/11/19 10:04 40 11/11/19 10:00 109 15 163/88 (113) 97 11/11/19 09:30 102 17 185/72 (109) 96 11/11/19 09:00 98 19 171/85 (113) 95 11/11/19 08:57 100 11/11/19 08:56 40 11/11/19 08:38 109 164/75 11/11/19 08:30 107 18 164/75 (104) 97 11/11/19 08:30 24 134/53 Mechanical Ventilator 40 11/11/19 08:15 24 134/53 Mechanical Ventilator 40 11/11/19 08:00 98.0 93 23 134/53 (80) 96 11/11/19 08:00 102 11/11/19 08:00 24 134/53 Mechanical Ventilator 40 11/11/19 07:45 22 144/63 Mechanical Ventilator 40 11/11/19 07:30 90 21 144/63 (90) 95 11/11/19 07:30 22 144/63 Mechanical Ventilator 40 11/11/19 07:29 96 21 40 40 11/11/19 07:00 89 22 129/61 (83) 96 11/11/19 07:00 22 129/61 Mechanical Ventilator 40 11/11/19 06:30 90 22 144/60 (88) 96 11/11/19 06:30 98 22 11/11/19 06:00 90 22 140/66 (90) 96 11/11/19 06:00 22 140/66 Mechanical Ventilator 40 11/11/19 05:30 87 22 131/58 (82) 96 11/11/19 05:00 88 23 101/56 (71) 96 11/11/19 05:00 23 101/56 Mechanical Ventilator 40 11/11/19 04:30 86 22 134/70 (91) 96 11/11/19 04:00 85 11/11/19 04:00 40 11/11/19 04:00 98.7 87 22 143/62 (89) 96 11/11/19 04:00 22 143/62 Mechanical Ventilator 40 11/11/19 03:30 88 22 129/59 (82) 96 11/11/19 03:09 85 20 40 11/11/19 03:00 89 21 147/62 (90) 99 11/11/19 03:00 20 100/62 Mechanical Ventilator 40 11/11/19 02:30 85 21 136/52 (80) 96 11/11/19 02:00 82 21 137/56 (83) 96 11/11/19 02:00 20 136/52 Mechanical Ventilator 40 11/11/19 01:30 87 21 136/68 (90) 96 11/11/19 01:00 87 23 113/56 (75) 96 11/11/19 01:00 21 136/68 Mechanical Ventilator 40 11/11/19 00:30 83 16 134/55 (81) 95 11/11/19 00:00 40 11/11/19 00:00 86 11/11/19 00:00 98.8 82 20 127/58 (81) 95 11/11/19 00:00 20 134/55 Mechanical Ventilator 40 11/10/19 23:17 81 19 40 11/10/19 23:00 22 114/57 Mechanical Ventilator 40 11/10/19 23:00 86 22 114/57 (76) 97 11/10/19 22:00 20 105/64 Mechanical Ventilator 40 11/10/19 22:00 79 19 105/64 (78) 96 11/10/19 21:30 77 21 113/48 (69) 95 11/10/19 21:00 20 113/45 Mechanical Ventilator 40 11/10/19 21:00 73 22 116/52 (73) 96 11/10/19 20:32 87 125/51 11/10/19 20:30 79 20 116/51 (72) 95 11/10/19 20:00 40 11/10/19 20:00 98.5 79 21 125/51 (75) 95 11/10/19 20:00 77 11/10/19 20:00 20 116/51 Mechanical Ventilator 40 11/10/19 19:30 78 21 129/56 (80) 95 11/10/19 19:30 73 19 40 11/10/19 19:00 22 129/56 Mechanical Ventilator 40 11/10/19 19:00 79 20 118/59 (78) 99 11/10/19 18:31 79 19 126/50 (75) 95 11/10/19 18:00 98.6 73 18 126/50 (75) 95 11/10/19 17:35 80 20 130/58 (82) 95 11/10/19 17:27 24 118/48 Mechanical Ventilator 40 11/10/19 17:26 22 130/58 Mechanical Ventilator 40 11/10/19 17:00 22 130/58 Mechanical Ventilator 40 11/10/19 17:00 93 20 118/48 (71) 97 11/10/19 16:00 73 20 124/58 (80) 94 11/10/19 16:00 20 111/62 Mechanical Ventilator 40 11/10/19 16:00 40 11/10/19 16:00 75 11/10/19 15:14 68 20 40 11/10/19 15:00 74 19 111/54 (73) 95 11/10/19 15:00 21 110/61 Mechanical Ventilator 40 11/10/19 14:00 20 107/56 Mechanical Ventilator 40 11/10/19 14:00 79 20 116/57 (76) 95 11/10/19 13:00 83 26 117/46 (69) 94 11/10/19 13:00 21 123/51 Mechanical Ventilator 40 11/10/19 12:00 99.1 79 20 115/56 (75) 94 11/10/19 12:00 21 117/57 Mechanical Ventilator 40 11/10/19 12:00 79 20 115/56 (75) 94 11/10/19 12:00 40 11/10/19 12:00 80 11/10/19 11:12 84 20 40 11/10/19 11:00 21 123/70 Mechanical Ventilator 40 11/10/19 11:00 75 14 129/75 (93) 94 11/10/19 10:00 75 14 114/55 (74) 94 11/10/19 10:00 18 117/51 Mechanical Ventilator 40 11/10/19 09:00 82 21 115/54 (74) 95 11/10/19 09:00 20 115/54 Mechanical Ventilator 40 11/10/19 08:21 87 107/44 11/10/19 08:00 79 11/10/19 08:00 40 11/10/19 08:00 98.9 85 20 107/44 (65) 95 11/10/19 08:00 22 107/44 Mechanical Ventilator 40 11/10/19 07:00 88 22 114/50 (71) 95 11/10/19 07:00 22 114/50 Mechanical Ventilator 40 11/10/19 06:58 92 20 40 Intake and Output 11/11/19 11/12/19 19:00 07:00 Intake Total 1723.5 ml 1372.203 ml Output Total 570 ml 445 ml Balance 1153.5 ml 927.203 ml Free Water 100 ml IV Total 903.5 ml 792.203 ml Tube Feeding 720 ml 520 ml Other 60 ml Output Urine Total 570 ml 445 ml Labs Test 11/09/19 10:00 11/09/19 11:27 11/09/19 16:32 11/09/19 17:00 Lactic Acid Level 2.10 mmol/L (0.4-2.0) 2.40 mmol/L (0.4-2.0) POC Whole Blood Glucose 284 MG/DL (74-106) 336 MG/DL (74-106) Test 11/09/19 23:15 11/10/19 03:50 11/10/19 05:40 11/10/19 10:10 Lactic Acid Level 2.60 mmol/L (0.4-2.0) 2.80 mmol/L (0.4-2.0) 2.40 mmol/L (0.4-2.0) White Blood Count 12.1 K/UL (4.8-10.8) Red Blood Count 3.41 M/UL (4.20-5.40) Hemoglobin 9.2 G/DL (12.0-16.0) Hematocrit 30.5 % (37.0-47.0) Mean Corpuscular Volume 90 FL (80-99) Mean Corpuscular Hemoglobin 26.9 PG (27.0-31.0) Mean Corpuscular Hemoglobin Concent 30.0 G/DL (32.0-36.0) Red Cell Distribution Width 16.5 % (11.6-14.8) Platelet Count 195 K/UL (150-450) Mean Platelet Volume 6.2 FL (6.5-10.1) Neutrophils (%) (Auto) 84.6 % (45.0-75.0) Lymphocytes (%) (Auto) 6.2 % (20.0-45.0) Monocytes (%) (Auto) 8.7 % (1.0-10.0) Eosinophils (%) (Auto) 0.0 % (0.0-3.0) Basophils (%) (Auto) 0.4 % (0.0-2.0) Sodium Level 142 MMOL/L (136-145) Potassium Level 4.9 MMOL/L (3.5-5.1) Chloride Level 107 MMOL/L (98-107) Carbon Dioxide Level 28 MMOL/L (21-32) Anion Gap 7 mmol/L (5-15) Blood Urea Nitrogen 45 mg/dL (7-18) Creatinine 1.3 MG/DL (0.55-1.30) Estimat Glomerular Filtration Rate 42.8 mL/min (>60) Glucose Level 288 MG/DL (74-106) Calcium Level 8.1 MG/DL (8.5-10.1) Total Bilirubin 1.3 MG/DL (0.2-1.0) Direct Bilirubin 0.8 MG/DL (0.0-0.3) Aspartate Amino Transf (AST/SGOT) 44 U/L (15-37) Alanine Aminotransferase (ALT/SGPT) 33 U/L (12-78) Alkaline Phosphatase 179 U/L (46-116) Total Protein 6.1 G/DL (6.4-8.2) Albumin 2.0 G/DL (3.4-5.0) Globulin 4.1 g/dL Albumin/Globulin Ratio 0.5 (1.0-2.7) Test 11/10/19 11:10 11/10/19 16:05 11/10/19 16:13 11/11/19 02:40 Lactic Acid Level 2.40 mmol/L (0.4-2.0) 2.90 mmol/L (0.4-2.0) White Blood Count 11.1 K/UL (4.8-10.8) Red Blood Count 3.60 M/UL (4.20-5.40) Hemoglobin 9.7 G/DL (12.0-16.0) Hematocrit 32.2 % (37.0-47.0) Mean Corpuscular Volume 90 FL (80-99) Mean Corpuscular Hemoglobin 27.0 PG (27.0-31.0) Mean Corpuscular Hemoglobin Concent 30.1 G/DL (32.0-36.0) Red Cell Distribution Width 16.3 % (11.6-14.8) Platelet Count 232 K/UL (150-450) Mean Platelet Volume 6.5 FL (6.5-10.1) Neutrophils (%) (Auto) % (45.0-75.0) Lymphocytes (%) (Auto) % (20.0-45.0) Monocytes (%) (Auto) % (1.0-10.0) Eosinophils (%) (Auto) % (0.0-3.0) Basophils (%) (Auto) % (0.0-2.0) Prothrombin Time 13.9 SEC (9.30-11.50) Prothromb Time International Ratio 1.3 (0.9-1.1) Activated Partial Thromboplast Time 28 SEC (23-33) Sodium Level 145 MMOL/L (136-145) Potassium Level 4.8 MMOL/L (3.5-5.1) Chloride Level 110 MMOL/L (98-107) Carbon Dioxide Level 27 MMOL/L (21-32) Anion Gap 8 mmol/L (5-15) Blood Urea Nitrogen 42 mg/dL (7-18) Creatinine 1.3 MG/DL (0.55-1.30) Estimat Glomerular Filtration Rate 42.8 mL/min (>60) Glucose Level 328 MG/DL (74-106) Calcium Level 7.8 MG/DL (8.5-10.1) Total Bilirubin 1.0 MG/DL (0.2-1.0) Direct Bilirubin 0.6 MG/DL (0.0-0.3) Aspartate Amino Transf (AST/SGOT) 40 U/L (15-37) Alanine Aminotransferase (ALT/SGPT) 36 U/L (12-78) Alkaline Phosphatase 178 U/L (46-116) Total Protein 6.1 G/DL (6.4-8.2) Albumin 2.0 G/DL (3.4-5.0) Globulin 4.1 g/dL Albumin/Globulin Ratio 0.5 (1.0-2.7) Test 11/11/19 09:48 11/11/19 09:49 11/11/19 17:34 11/12/19 03:10 Lactic Acid Level 2.80 mmol/L (0.4-2.0) 2.80 mmol/L (0.4-2.0) 2.70 mmol/L (0.4-2.0) Arterial Blood pH 7.302 (7.350-7.450) Arterial Blood Partial Pressure CO2 48.7 mmHg (35.0-45.0) Arterial Blood Partial Pressure O2 73.8 mmHg (75.0-100.0) Arterial Blood HCO3 23.5 mmol/L (22.0-26.0) Arterial Blood Oxygen Saturation 92.6 % (95-100) Arterial Blood Base Excess -3.1 (-2-2) Steve Test Positive White Blood Count 11.1 K/UL (4.8-10.8) Red Blood Count 3.57 M/UL (4.20-5.40) Hemoglobin 9.7 G/DL (12.0-16.0) Hematocrit 32.2 % (37.0-47.0) Mean Corpuscular Volume 90 FL (80-99) Mean Corpuscular Hemoglobin 27.1 PG (27.0-31.0) Mean Corpuscular Hemoglobin Concent 30.1 G/DL (32.0-36.0) Red Cell Distribution Width 16.5 % (11.6-14.8) Platelet Count 222 K/UL (150-450) Mean Platelet Volume 6.6 FL (6.5-10.1) Neutrophils (%) (Auto) % (45.0-75.0) Lymphocytes (%) (Auto) % (20.0-45.0) Monocytes (%) (Auto) % (1.0-10.0) Eosinophils (%) (Auto) % (0.0-3.0) Basophils (%) (Auto) % (0.0-2.0) Sodium Level 147 MMOL/L (136-145) Potassium Level 4.8 MMOL/L (3.5-5.1) Chloride Level 112 MMOL/L (98-107) Carbon Dioxide Level 27 MMOL/L (21-32) Anion Gap 8 mmol/L (5-15) Blood Urea Nitrogen 49 mg/dL (7-18) Creatinine 1.5 MG/DL (0.55-1.30) Estimat Glomerular Filtration Rate 36.4 mL/min (>60) Glucose Level 373 MG/DL (74-106) Hemoglobin A1c 10.4 % (4.3-6.0) Calcium Level 8.0 MG/DL (8.5-10.1) Total Bilirubin 1.1 MG/DL (0.2-1.0) Direct Bilirubin 0.7 MG/DL (0.0-0.3) Aspartate Amino Transf (AST/SGOT) 41 U/L (15-37) Alanine Aminotransferase (ALT/SGPT) 39 U/L (12-78) Alkaline Phosphatase 184 U/L (46-116) Total Protein 6.1 G/DL (6.4-8.2) Albumin 2.0 G/DL (3.4-5.0) Globulin 4.1 g/dL Albumin/Globulin Ratio 0.5 (1.0-2.7) Height (Feet): 5 Height (Inches): 3.00 Weight (Pounds): 376 Objective Physical Exam: Vitals: reviewed General: NAD HEENT: nc, at Neck: supple Chest: clear breath sounds on vent++ Cardiovascular: RRR, no s3, s4 Abdomen: soft, nontender, nd Extremities: no cce, normal range of motion Neuro: alert and oriented Ismael Fischer MD Nov 12, 2019 06:32
--- NOTE | 2019-11-12 08:14 | General Progress Note ---
Assessment/Plan Problem List: (1) Afib ICD Codes: I48.91 - Unspecified atrial fibrillation SNOMED: 66392530 (2) Epistaxis ICD Codes: R04.0 - Epistaxis SNOMED: 967268364 (3) Weak ICD Codes: R53.1 - Weakness SNOMED: 00708960 (4) UTI (urinary tract infection) ICD Codes: N39.0 - Urinary tract infection, site not specified SNOMED: 88887604 (5) Diabetes ICD Codes: E11.9 - Type 2 diabetes mellitus without complications SNOMED: 31073169 (6) CHF (congestive heart failure) ICD Codes: I50.9 - Heart failure, unspecified SNOMED: 86444434 (7) Multifocal pneumonia ICD Codes: J18.9 - Pneumonia, unspecified organism SNOMED: 532978140 (8) 2019 novel coronavirus disease (COVID-19) ICD Codes: U07.1 - COVID-19 SNOMED: 576276577 (9) Respiratory failure ICD Codes: J96.90 - Respiratory failure, unspecified, unspecified whether with hypoxia or hypercapnia SNOMED: 097971324 Status: unchanged Assessment/Plan: vent abx bp bs control cbc bmp am Subjective Constitutional: Reports: weakness Allergies: Coded Allergies: No Known Allergies (Unverified , 11/06/19) All Systems: reviewed and negative except above Subjective intubated sedated in icu Objective Last 24 Hour Vital Signs Date Time Temp Pulse Resp B/P (MAP) Pulse Ox O2 Delivery O2 Flow Rate FiO2 11/12/19 08:12 100 11/12/19 07:21 79 21 40 11/12/19 07:00 67 20 102/45 (64) 96 11/12/19 07:00 20 102/45 Mechanical Ventilator 40 11/12/19 06:30 67 21 91/51 (64) 96 11/12/19 06:30 62 21 11/12/19 06:00 67 22 99/49 (66) 96 11/12/19 06:00 21 99/49 Mechanical Ventilator 40 11/12/19 05:30 75 21 136/67 (90) 96 11/12/19 05:00 21 96/52 Mechanical Ventilator 40 11/12/19 05:00 72 23 96/52 (67) 97 11/12/19 04:30 75 23 106/58 (74) 97 11/12/19 04:00 21 96/63 Mechanical Ventilator 40 11/12/19 04:00 40 11/12/19 04:00 65 11/12/19 04:00 99.7 70 21 96/63 (74) 96 11/12/19 03:30 71 22 97/58 (71) 98 11/12/19 03:00 72 20 108/54 (72) 100 11/12/19 03:00 77 21 40 11/12/19 03:00 21 108/54 Mechanical Ventilator 40 11/12/19 02:30 75 23 119/63 (81) 98 11/12/19 02:00 23 103/46 Mechanical Ventilator 40 11/12/19 02:00 71 24 103/51 (68) 97 11/12/19 01:30 74 24 93/47 (62) 96 11/12/19 01:00 77 25 94/42 (59) 97 11/12/19 01:00 25 94/42 Mechanical Ventilator 40 11/12/19 00:52 100.3 11/12/19 00:30 84 24 102/53 (69) 97 11/12/19 00:00 23 101/46 Mechanical Ventilator 40 11/12/19 00:00 40 11/12/19 00:00 100.7 87 23 101/46 (64) 97 11/12/19 00:00 98 11/11/19 23:30 94 23 99/55 (70) 98 11/11/19 23:00 24 115/64 Mechanical Ventilator 40 11/11/19 23:00 101 24 115/64 (81) 98 11/11/19 22:41 103 18 40 11/11/19 22:30 108 23 123/76 (92) 98 11/11/19 22:00 101 23 146/99 (115) 98 11/11/19 22:00 25 146/99 Mechanical Ventilator 40 11/11/19 21:30 97 18 144/96 (112) 97 11/11/19 21:00 19 126/76 Mechanical Ventilator 40 11/11/19 21:00 96 18 126/76 (93) 97 11/11/19 20:30 104 18 143/73 (96) 97 11/11/19 20:14 112 129/77 11/11/19 20:00 40 11/11/19 20:00 19 129/77 Mechanical Ventilator 40 11/11/19 20:00 100.3 107 21 129/77 (94) 96 11/11/19 20:00 99 11/11/19 19:30 107 21 128/67 (87) 97 11/11/19 19:21 106 19 40 11/11/19 19:00 17 137/77 Mechanical Ventilator 40 11/11/19 19:00 106 16 137/77 (97) 97 11/11/19 18:30 105 15 152/90 (110) 97 11/11/19 18:00 18 150/71 Mechanical Ventilator 40 11/11/19 18:00 104 18 150/71 (97) 97 11/11/19 17:30 103 26 139/72 (94) 96 11/11/19 17:00 103 25 133/68 (89) 96 11/11/19 17:00 25 133/68 Mechanical Ventilator 40 11/11/19 16:30 106 19 140/81 (100) 96 11/11/19 16:00 40 11/11/19 16:00 98.3 106 21 133/71 (91) 96 11/11/19 16:00 97 11/11/19 16:00 25 133/71 Mechanical Ventilator 30 11/11/19 15:30 101 21 125/67 (86) 96 11/11/19 15:11 103 21 40 11/11/19 15:00 98 17 134/81 (98) 96 11/11/19 15:00 22 134/81 Mechanical Ventilator 40 11/11/19 14:53 18 132/67 Mechanical Ventilator 40 11/11/19 14:30 100 19 132/67 (88) 96 11/11/19 14:00 20 132/67 Mechanical Ventilator 40 11/11/19 14:00 95 19 124/65 (84) 97 11/11/19 13:30 96 16 134/66 (88) 97 11/11/19 13:00 96 17 154/87 (109) 97 11/11/19 13:00 18 154/87 Mechanical Ventilator 40 11/11/19 12:30 95 17 141/94 (110) 97 11/11/19 12:00 98.2 99 17 122/75 (91) 97 11/11/19 12:00 18 122/75 Mechanical Ventilator 40 11/11/19 12:00 96 11/11/19 11:45 17 122/75 Mechanical Ventilator 40 11/11/19 11:32 117 163/85 11/11/19 11:30 120 17 161/91 (114) 94 11/11/19 11:30 18 161/91 Mechanical Ventilator 40 11/11/19 11:15 16 163/85 Mechanical Ventilator 40 11/11/19 11:00 122 20 163/85 (111) 96 11/11/19 11:00 18 192/135 Mechanical Ventilator 40 11/11/19 10:34 105 18 40 11/11/19 10:30 109 17 160/90 (113) 97 11/11/19 10:04 40 11/11/19 10:00 109 15 163/88 (113) 97 11/11/19 09:30 102 17 185/72 (109) 96 11/11/19 09:00 98 19 171/85 (113) 95 11/11/19 08:57 100 11/11/19 08:56 40 11/11/19 08:38 109 164/75 11/11/19 08:30 107 18 164/75 (104) 97 11/11/19 08:30 24 134/53 Mechanical Ventilator 40 11/11/19 08:15 24 134/53 Mechanical Ventilator 40 Intake and Output 11/11/19 11/12/19 19:00 07:00 Intake Total 1723.5 ml 1602.703 ml Output Total 570 ml 495 ml Balance 1153.5 ml 1107.703 ml Free Water 100 ml IV Total 903.5 ml 982.703 ml Tube Feeding 720 ml 560 ml Other 60 ml Output Urine Total 570 ml 495 ml Laboratory Tests 11/11/19 09:48: Lactic Acid Level 2.80H 11/11/19 09:49: Arterial Blood pH 7.302L, Arterial Blood Partial Pressure CO2 48.7H, Arterial Blood Partial Pressure O2 73.8L, Arterial Blood HCO3 23.5, Arterial Blood Oxygen Saturation 92.6L, Arterial Blood Base Excess -3.1L, Steve Test Positive 11/11/19 17:34: Lactic Acid Level 2.80H 11/12/19 03:10: Lactic Acid Level 2.70H, White Blood Count 11.1H, Red Blood Count 3.57L, Hemoglobin 9.7L, Hematocrit 32.2L, Mean Corpuscular Volume 90, Mean Corpuscular Hemoglobin 27.1, Mean Corpuscular Hemoglobin Concent 30.1L, Red Cell Distribution Width 16.5H, Platelet Count 222, Mean Platelet Volume 6.6, Neutrophils (%) (Auto) , Lymphocytes (%) (Auto) , Monocytes (%) (Auto) , Eosinophils (%) (Auto) , Basophils (%) (Auto) , Sodium Level 147H, Potassium Level 4.8, Chloride Level 112H, Carbon Dioxide Level 27, Anion Gap 8, Blood Urea Nitrogen 49H, Creatinine 1.5H, Estimat Glomerular Filtration Rate 36.4, Glucose Level 373H, Hemoglobin A1c 10.4H, Calcium Level 8.0L, Total Bilirubin 1.1H, Direct Bilirubin 0.7H, Aspartate Amino Transf (AST/SGOT) 41H, Alanine Aminotransferase (ALT/SGPT) 39, Alkaline Phosphatase 184H, Total Protein 6.1L, Albumin 2.0L, Globulin 4.1, Albumin/Globulin Ratio 0.5L Height (Feet): 5 Height (Inches): 3.00 Weight (Pounds): 379 General Appearance: lethargic EENT: normal ENT inspection Neck: normal alignment Cardiovascular: normal rate, regular rhythm Respiratory/Chest: no respiratory distress, no accessory muscle use Extremities: normal inspection Skin: normal pigmentation Gustabo Carter DO Nov 12, 2019 08:14
[2019-11-12] MEDS: Metoprolol Tartrate 50mg tab NG SCH ×2 (09:00→09:40)
[2019-11-12] MEDS ORDERED: NS 275ml ONE (09:21)
[2019-11-12] MEDS ORDERED: D5 1/2NS 1000ml IV ONE (09:21)
[2019-11-12] MEDS ORDERED: D5NS 1000ml IV ONE (09:21)
[2019-11-12] MEDS: dexAMETHasone 10mg/ml Inj IV SCH (09:40)
--- NOTE | 2019-11-12 11:47 | Infectious Diseases Prog Note ---
Assessment/Plan Assessment/Plan antibiotics : zosyn, remdesivir, dexamethasone A 1. COVID 19 pneumonia on 40 percent Fi O2, PEEP 5, saturation 97 percent 2. respiratory failure 3. leucocytosis improving 4. diabetes mellitus 5. hypertension P 1. continue remdesivir day 6 2. continue dexamethasone day 7 3. d/c zosyn 4. will follow up cultures 5. continue isolation Subjective ROS Limited/Unobtainable: Yes Allergies: Coded Allergies: No Known Allergies (Unverified , 11/06/19) Objective Last 24 Hour Vital Signs Date Time Temp Pulse Resp B/P (MAP) Pulse Ox O2 Delivery O2 Flow Rate FiO2 11/12/19 11:00 71 20 108/61 (77) 95 11/12/19 11:00 21 108/61 40 11/12/19 10:30 98.1 73 21 113/58 (76) 96 11/12/19 10:00 77 21 134/69 (90) 96 11/12/19 10:00 22 134/69 Mechanical Ventilator 40 11/12/19 09:40 79 102/45 11/12/19 09:30 69 22 101/51 (68) 94 11/12/19 09:00 22 98/51 Mechanical Ventilator 40 11/12/19 09:00 69 22 98/51 (67) 95 11/12/19 08:30 71 22 107/58 (74) 95 11/12/19 08:12 100 11/12/19 08:00 40 11/12/19 08:00 68 11/12/19 08:00 22 130/59 Mechanical Ventilator 40 11/12/19 08:00 73 22 130/59 (82) 96 11/12/19 07:30 68 20 91/51 (64) 96 11/12/19 07:21 79 21 40 11/12/19 07:00 67 20 102/45 (64) 96 11/12/19 07:00 20 102/45 Mechanical Ventilator 40 11/12/19 06:30 67 21 91/51 (64) 96 11/12/19 06:30 62 21 11/12/19 06:00 67 22 99/49 (66) 96 11/12/19 06:00 21 99/49 Mechanical Ventilator 40 11/12/19 05:30 75 21 136/67 (90) 96 11/12/19 05:00 21 96/52 Mechanical Ventilator 40 11/12/19 05:00 72 23 96/52 (67) 97 11/12/19 04:30 75 23 106/58 (74) 97 11/12/19 04:00 21 96/63 Mechanical Ventilator 40 11/12/19 04:00 40 11/12/19 04:00 65 11/12/19 04:00 99.7 70 21 96/63 (74) 96 11/12/19 03:30 71 22 97/58 (71) 98 11/12/19 03:00 72 20 108/54 (72) 100 11/12/19 03:00 77 21 40 11/12/19 03:00 21 108/54 Mechanical Ventilator 40 11/12/19 02:30 75 23 119/63 (81) 98 11/12/19 02:00 23 103/46 Mechanical Ventilator 40 11/12/19 02:00 71 24 103/51 (68) 97 11/12/19 01:30 74 24 93/47 (62) 96 11/12/19 01:00 77 25 94/42 (59) 97 11/12/19 01:00 25 94/42 Mechanical Ventilator 40 11/12/19 00:52 100.3 11/12/19 00:30 84 24 102/53 (69) 97 11/12/19 00:00 23 101/46 Mechanical Ventilator 40 11/12/19 00:00 40 11/12/19 00:00 100.7 87 23 101/46 (64) 97 11/12/19 00:00 98 11/11/19 23:30 94 23 99/55 (70) 98 11/11/19 23:00 24 115/64 Mechanical Ventilator 40 11/11/19 23:00 101 24 115/64 (81) 98 11/11/19 22:41 103 18 40 11/11/19 22:30 108 23 123/76 (92) 98 11/11/19 22:00 101 23 146/99 (115) 98 11/11/19 22:00 25 146/99 Mechanical Ventilator 40 11/11/19 21:30 97 18 144/96 (112) 97 11/11/19 21:00 19 126/76 Mechanical Ventilator 40 11/11/19 21:00 96 18 126/76 (93) 97 11/11/19 20:30 104 18 143/73 (96) 97 11/11/19 20:14 112 129/77 11/11/19 20:00 40 11/11/19 20:00 19 129/77 Mechanical Ventilator 40 11/11/19 20:00 100.3 107 21 129/77 (94) 96 11/11/19 20:00 99 11/11/19 19:30 107 21 128/67 (87) 97 11/11/19 19:21 106 19 40 11/11/19 19:00 17 137/77 Mechanical Ventilator 40 11/11/19 19:00 106 16 137/77 (97) 97 11/11/19 18:30 105 15 152/90 (110) 97 11/11/19 18:00 18 150/71 Mechanical Ventilator 40 11/11/19 18:00 104 18 150/71 (97) 97 11/11/19 17:30 103 26 139/72 (94) 96 11/11/19 17:00 103 25 133/68 (89) 96 11/11/19 17:00 25 133/68 Mechanical Ventilator 40 11/11/19 16:30 106 19 140/81 (100) 96 11/11/19 16:00 40 11/11/19 16:00 98.3 106 21 133/71 (91) 96 11/11/19 16:00 97 11/11/19 16:00 25 133/71 Mechanical Ventilator 30 11/11/19 15:30 101 21 125/67 (86) 96 11/11/19 15:11 103 21 40 11/11/19 15:00 98 17 134/81 (98) 96 11/11/19 15:00 22 134/81 Mechanical Ventilator 40 11/11/19 14:53 18 132/67 Mechanical Ventilator 40 11/11/19 14:30 100 19 132/67 (88) 96 11/11/19 14:00 20 132/67 Mechanical Ventilator 40 11/11/19 14:00 95 19 124/65 (84) 97 11/11/19 13:30 96 16 134/66 (88) 97 11/11/19 13:00 96 17 154/87 (109) 97 11/11/19 13:00 18 154/87 Mechanical Ventilator 40 11/11/19 12:30 95 17 141/94 (110) 97 11/11/19 12:00 98.2 99 17 122/75 (91) 97 11/11/19 12:00 18 122/75 Mechanical Ventilator 40 11/11/19 12:00 96 Height (Feet): 5 Height (Inches): 3.00 Weight (Pounds): 379 Laboratory Tests Test 11/11/19 17:34 11/12/19 03:10 Lactic Acid Level 2.80 mmol/L (0.4-2.0) H 2.70 mmol/L (0.4-2.0) H White Blood Count 11.1 K/UL (4.8-10.8) H Red Blood Count 3.57 M/UL (4.20-5.40) L Hemoglobin 9.7 G/DL (12.0-16.0) L Hematocrit 32.2 % (37.0-47.0) L Mean Corpuscular Volume 90 FL (80-99) Mean Corpuscular Hemoglobin 27.1 PG (27.0-31.0) Mean Corpuscular Hemoglobin Concent 30.1 G/DL (32.0-36.0) L Red Cell Distribution Width 16.5 % (11.6-14.8) H Platelet Count 222 K/UL (150-450) Mean Platelet Volume 6.6 FL (6.5-10.1) Neutrophils (%) (Auto) % (45.0-75.0) Lymphocytes (%) (Auto) % (20.0-45.0) Monocytes (%) (Auto) % (1.0-10.0) Eosinophils (%) (Auto) % (0.0-3.0) Basophils (%) (Auto) % (0.0-2.0) Sodium Level 147 MMOL/L (136-145) H Potassium Level 4.8 MMOL/L (3.5-5.1) Chloride Level 112 MMOL/L (98-107) H Carbon Dioxide Level 27 MMOL/L (21-32) Anion Gap 8 mmol/L (5-15) Blood Urea Nitrogen 49 mg/dL (7-18) H Creatinine 1.5 MG/DL (0.55-1.30) H Estimat Glomerular Filtration Rate 36.4 mL/min (>60) Glucose Level 373 MG/DL (74-106) H Hemoglobin A1c 10.4 % (4.3-6.0) H Calcium Level 8.0 MG/DL (8.5-10.1) L Total Bilirubin 1.1 MG/DL (0.2-1.0) H Direct Bilirubin 0.7 MG/DL (0.0-0.3) H Aspartate Amino Transf (AST/SGOT) 41 U/L (15-37) H Alanine Aminotransferase (ALT/SGPT) 39 U/L (12-78) Alkaline Phosphatase 184 U/L (46-116) H Total Protein 6.1 G/DL (6.4-8.2) L Albumin 2.0 G/DL (3.4-5.0) L Globulin 4.1 g/dL Albumin/Globulin Ratio 0.5 (1.0-2.7) L Current Medications Medications (Trade) Dose Ordered Sig/Robyn Route PRN Reason Start Time Stop Time Status Last Admin Dose Admin Acetaminophen (Tylenol) 650 mg Q6H PRN NG Temp >100.5 11/12/19 00:15 12/12/19 00:14 11/12/19 00:22 Chlorhexidine Gluconate (Miya-Hex 2%) 1 applic DAILY@2000 TOPIC 11/08/19 21:30 02/06/20 21:29 11/11/19 20:14 Clonidine HCl (Catapres Tab) 0.1 mg Q2H PRN NG For High Blood Pressure 11/11/19 11:00 02/09/20 10:59 Dexamethasone Sodium Phosphate (Decadron 10mg/ ml Inj) 6 mg DAILY IV 11/09/19 09:00 02/06/20 09:14 11/12/19 09:40 Dextrose (Dextrose 50%) 25 ml Q30M PRN IV Hypoglycemia 11/08/19 12:30 02/05/20 02:59 Dextrose (Dextrose 50%) 50 ml Q30M PRN IV Hypoglycemia 11/08/19 12:30 02/05/20 02:59 Dextrose/Sodium Chloride 1,000 ml @ 60 mls/hr [id number] IV 11/09/19 01:15 12/09/19 01:14 11/11/19 20:14 Famotidine (Pepcid I.v.) 20 mg Q12HR IVP 11/08/19 15:30 12/08/19 15:29 11/12/19 09:40 Fentanyl Citrate 250 ml @ 0 mls/hr Q24H IV 11/08/19 12:29 02/06/20 12:28 11/11/19 14:53 Insulin Aspart (NovoLOG) BEFORE MEALS AND HS SUBQ 11/08/19 16:30 02/05/20 06:29 11/12/19 05:05 Lorazepam (Ativan 2mg/ml 1ml) 1 mg Q4H PRN IV For Anxiety 11/08/19 12:32 11/15/19 12:31 Metoprolol Tartrate (Lopressor) 50 mg Q12HR NG 11/11/19 11:00 02/09/20 10:59 11/12/19 09:40 Piperacillin Sod/ Tazobactam Sod 3.375 gm/Sodium Chloride 110 ml @ 27.5 mls/hr EVERY 8 HOURS IVPB 11/08/19 14:00 11/13/19 11:59 11/12/19 05:05 Remdesivir 100 mg/ Sodium Chloride 250 ml @ 250 mls/hr Q24H IV 11/12/19 13:00 11/16/19 13:59 Rosette Bowman MD Nov 12, 2019 11:47
[2019-11-12] MEDS: D5NS 1,000 ML IV SCH (12:37)
[2019-11-12] MEDS: Remdesivir 100mg 100 MG in NS 230 ML IV SCH (12:37)
--- NOTE | 2019-11-12 13:03 | General Progress Note ---
Assessment/Plan Problem List: (1) Respiratory failure ICD Codes: J96.90 - Respiratory failure, unspecified, unspecified whether with hypoxia or hypercapnia SNOMED: 062180491 (2) 2019 novel coronavirus disease (COVID-19) ICD Codes: U07.1 - COVID-19 SNOMED: 501747254 (3) Multifocal pneumonia ICD Codes: J18.9 - Pneumonia, unspecified organism SNOMED: 368487499 (4) Afib ICD Codes: I48.91 - Unspecified atrial fibrillation SNOMED: 48807725 (5) CHF (congestive heart failure) ICD Codes: I50.9 - Heart failure, unspecified SNOMED: 26797430 (6) Diabetes ICD Codes: E11.9 - Type 2 diabetes mellitus without complications SNOMED: 89453925 (7) Fluid overload ICD Codes: E87.70 - Fluid overload, unspecified SNOMED: 18346487 (8) Epistaxis ICD Codes: R04.0 - Epistaxis SNOMED: 584231384 Status: unchanged Assessment/Plan: fu H&H prn blood transfusion tf will fu Subjective ROS Limited/Unobtainable: No Allergies: Coded Allergies: No Known Allergies (Unverified , 11/06/19) Objective Last 24 Hour Vital Signs Date Time Temp Pulse Resp B/P (MAP) Pulse Ox O2 Delivery O2 Flow Rate FiO2 11/12/19 12:00 Mechanical Ventilator 11/12/19 12:00 40 11/12/19 12:00 20 100/56 Mechanical Ventilator 40 11/12/19 12:00 70 11/12/19 12:00 72 19 106/55 (72) 95 11/12/19 11:00 71 20 108/61 (77) 95 11/12/19 11:00 21 108/61 Mechanical Ventilator 40 11/12/19 10:30 98.1 73 21 113/58 (76) 96 11/12/19 10:00 77 21 134/69 (90) 96 11/12/19 10:00 22 134/69 Mechanical Ventilator 40 11/12/19 09:30 69 22 101/51 (68) 94 11/12/19 09:00 60 98/51 11/12/19 09:00 22 98/51 Mechanical Ventilator 40 11/12/19 09:00 69 22 98/51 (67) 95 7/23/20 08:30 71 22 107/58 (74) 95 11/12/19 08:12 100 11/12/19 08:00 40 11/12/19 08:00 68 11/12/19 08:00 Mechanical Ventilator 11/12/19 08:00 22 130/59 Mechanical Ventilator 40 11/12/19 08:00 73 22 130/59 (82) 96 11/12/19 07:30 68 20 91/51 (64) 96 11/12/19 07:21 79 21 40 11/12/19 07:00 67 20 102/45 (64) 96 11/12/19 07:00 20 102/45 Mechanical Ventilator 40 11/12/19 06:30 67 21 91/51 (64) 96 11/12/19 06:30 62 21 11/12/19 06:00 67 22 99/49 (66) 96 11/12/19 06:00 21 99/49 Mechanical Ventilator 40 11/12/19 05:30 75 21 136/67 (90) 96 11/12/19 05:00 21 96/52 Mechanical Ventilator 40 11/12/19 05:00 72 23 96/52 (67) 97 11/12/19 04:30 75 23 106/58 (74) 97 11/12/19 04:00 21 96/63 Mechanical Ventilator 40 11/12/19 04:00 40 11/12/19 04:00 65 11/12/19 04:00 99.7 70 21 96/63 (74) 96 11/12/19 03:30 71 22 97/58 (71) 98 11/12/19 03:00 72 20 108/54 (72) 100 11/12/19 03:00 77 21 40 11/12/19 03:00 21 108/54 Mechanical Ventilator 40 11/12/19 02:30 75 23 119/63 (81) 98 11/12/19 02:00 23 103/46 Mechanical Ventilator 40 11/12/19 02:00 71 24 103/51 (68) 97 11/12/19 01:30 74 24 93/47 (62) 96 11/12/19 01:00 77 25 94/42 (59) 97 11/12/19 01:00 25 94/42 Mechanical Ventilator 40 11/12/19 00:52 100.3 11/12/19 00:30 84 24 102/53 (69) 97 11/12/19 00:00 23 101/46 Mechanical Ventilator 40 11/12/19 00:00 40 11/12/19 00:00 100.7 87 23 101/46 (64) 97 11/12/19 00:00 98 11/11/19 23:30 94 23 99/55 (70) 98 11/11/19 23:00 24 115/64 Mechanical Ventilator 40 11/11/19 23:00 101 24 115/64 (81) 98 11/11/19 22:41 103 18 40 11/11/19 22:30 108 23 123/76 (92) 98 11/11/19 22:00 101 23 146/99 (115) 98 11/11/19 22:00 25 146/99 Mechanical Ventilator 40 11/11/19 21:30 97 18 144/96 (112) 97 11/11/19 21:00 19 126/76 Mechanical Ventilator 40 11/11/19 21:00 96 18 126/76 (93) 97 11/11/19 20:30 104 18 143/73 (96) 97 11/11/19 20:14 112 129/77 11/11/19 20:00 40 11/11/19 20:00 19 129/77 Mechanical Ventilator 40 11/11/19 20:00 100.3 107 21 129/77 (94) 96 11/11/19 20:00 99 11/11/19 19:30 107 21 128/67 (87) 97 11/11/19 19:21 106 19 40 11/11/19 19:00 17 137/77 Mechanical Ventilator 40 11/11/19 19:00 106 16 137/77 (97) 97 11/11/19 18:30 105 15 152/90 (110) 97 11/11/19 18:00 18 150/71 Mechanical Ventilator 40 11/11/19 18:00 104 18 150/71 (97) 97 11/11/19 17:30 103 26 139/72 (94) 96 11/11/19 17:00 103 25 133/68 (89) 96 11/11/19 17:00 25 133/68 Mechanical Ventilator 40 11/11/19 16:30 106 19 140/81 (100) 96 11/11/19 16:00 40 11/11/19 16:00 98.3 106 21 133/71 (91) 96 11/11/19 16:00 97 11/11/19 16:00 25 133/71 Mechanical Ventilator 30 11/11/19 15:30 101 21 125/67 (86) 96 11/11/19 15:11 103 21 40 11/11/19 15:00 98 17 134/81 (98) 96 11/11/19 15:00 22 134/81 Mechanical Ventilator 40 11/11/19 14:53 18 132/67 Mechanical Ventilator 40 11/11/19 14:30 100 19 132/67 (88) 96 11/11/19 14:00 20 132/67 Mechanical Ventilator 40 11/11/19 14:00 95 19 124/65 (84) 97 11/11/19 13:30 96 16 134/66 (88) 97 Intake and Output 11/11/19 11/12/19 19:00 07:00 Intake Total 1723.5 ml 1602.703 ml Output Total 570 ml 495 ml Balance 1153.5 ml 1107.703 ml Free Water 100 ml IV Total 903.5 ml 982.703 ml Tube Feeding 720 ml 560 ml Other 60 ml Output Urine Total 570 ml 495 ml Laboratory Tests 11/11/19 17:34: Lactic Acid Level 2.80H 11/12/19 03:10: Lactic Acid Level 2.70H, White Blood Count 11.1H, Red Blood Count 3.57L, Hemoglobin 9.7L, Hematocrit 32.2L, Mean Corpuscular Volume 90, Mean Corpuscular Hemoglobin 27.1, Mean Corpuscular Hemoglobin Concent 30.1L, Red Cell Distribution Width 16.5H, Platelet Count 222, Mean Platelet Volume 6.6, Neutrophils (%) (Auto) , Lymphocytes (%) (Auto) , Monocytes (%) (Auto) , Eosinophils (%) (Auto) , Basophils (%) (Auto) , Sodium Level 147H, Potassium Level 4.8, Chloride Level 112H, Carbon Dioxide Level 27, Anion Gap 8, Blood Urea Nitrogen 49H, Creatinine 1.5H, Estimat Glomerular Filtration Rate 36.4, Glucose Level 373H, Hemoglobin A1c 10.4H, Calcium Level 8.0L, Total Bilirubin 1.1H, Direct Bilirubin 0.7H, Aspartate Amino Transf (AST/SGOT) 41H, Alanine Aminotransferase (ALT/SGPT) 39, Alkaline Phosphatase 184H, Total Protein 6.1L, Albumin 2.0L, Globulin 4.1, Albumin/Globulin Ratio 0.5L Height (Feet): 5 Height (Inches): 3.00 Weight (Pounds): 379 General Appearance: confused EENT: normal ENT inspection Neck: supple Cardiovascular: normal rate Respiratory/Chest: decreased breath sounds Abdomen: hypoactive bowel sounds Extremities: non-tender Case Patel MD Nov 12, 2019 13:03
--- NOTE | 2019-11-12 13:54 | Pulmonology Progress Note ---
Subjective ROS Limited/Unobtainable: No Interval Events: Intubated; no further epistaxis; packed by Dr Fleming Constitutional: Reports: other - nasal bleeding HEENT: Repors: no symptoms Respiratory: Reports: dry cough, shortness of breath Cardiovascular: Reports: no symptoms Gastrointestinal/Abdominal: Reports: no symptoms Allergies: Coded Allergies: No Known Allergies (Unverified , 11/06/19) All Systems: reviewed and negative except above Objective Last 24 Hour Vital Signs Date Time Temp Pulse Resp B/P (MAP) Pulse Ox O2 Delivery O2 Flow Rate FiO2 11/12/19 13:30 69 21 107/54 (71) 96 11/12/19 13:00 71 20 110/67 (81) 95 11/12/19 12:30 72 21 125/98 (107) 95 11/12/19 12:00 Mechanical Ventilator 11/12/19 12:00 40 11/12/19 12:00 20 100/56 Mechanical Ventilator 40 11/12/19 12:00 70 11/12/19 12:00 72 19 106/55 (72) 95 11/12/19 11:14 76 20 40 11/12/19 11:00 71 20 108/61 (77) 95 11/12/19 11:00 21 108/61 Mechanical Ventilator 40 11/12/19 10:30 98.1 73 21 113/58 (76) 96 11/12/19 10:00 77 21 134/69 (90) 96 11/12/19 10:00 22 134/69 Mechanical Ventilator 40 11/12/19 09:30 69 22 101/51 (68) 94 11/12/19 09:00 60 98/51 11/12/19 09:00 22 98/51 Mechanical Ventilator 40 11/12/19 09:00 69 22 98/51 (67) 95 11/12/19 08:30 71 22 107/58 (74) 95 11/12/19 08:12 100 11/12/19 08:00 40 11/12/19 08:00 68 11/12/19 08:00 Mechanical Ventilator 11/12/19 08:00 22 130/59 Mechanical Ventilator 40 11/12/19 08:00 73 22 130/59 (82) 96 11/12/19 07:30 68 20 91/51 (64) 96 11/12/19 07:21 79 21 40 11/12/19 07:00 67 20 102/45 (64) 96 11/12/19 07:00 20 102/45 Mechanical Ventilator 40 11/12/19 06:30 67 21 91/51 (64) 96 11/12/19 06:30 62 21 11/12/19 06:00 67 22 99/49 (66) 96 11/12/19 06:00 21 99/49 Mechanical Ventilator 40 11/12/19 05:30 75 21 136/67 (90) 96 11/12/19 05:00 21 96/52 Mechanical Ventilator 40 11/12/19 05:00 72 23 96/52 (67) 97 11/12/19 04:30 75 23 106/58 (74) 97 11/12/19 04:00 21 96/63 Mechanical Ventilator 40 11/12/19 04:00 40 11/12/19 04:00 65 11/12/19 04:00 99.7 70 21 96/63 (74) 96 11/12/19 03:30 71 22 97/58 (71) 98 11/12/19 03:00 72 20 108/54 (72) 100 11/12/19 03:00 77 21 40 11/12/19 03:00 21 108/54 Mechanical Ventilator 40 11/12/19 02:30 75 23 119/63 (81) 98 11/12/19 02:00 23 103/46 Mechanical Ventilator 40 11/12/19 02:00 71 24 103/51 (68) 97 11/12/19 01:30 74 24 93/47 (62) 96 11/12/19 01:00 77 25 94/42 (59) 97 11/12/19 01:00 25 94/42 Mechanical Ventilator 40 11/12/19 00:52 100.3 11/12/19 00:30 84 24 102/53 (69) 97 11/12/19 00:00 23 101/46 Mechanical Ventilator 40 11/12/19 00:00 40 11/12/19 00:00 100.7 87 23 101/46 (64) 97 11/12/19 00:00 98 11/11/19 23:30 94 23 99/55 (70) 98 11/11/19 23:00 24 115/64 Mechanical Ventilator 40 11/11/19 23:00 101 24 115/64 (81) 98 11/11/19 22:41 103 18 40 11/11/19 22:30 108 23 123/76 (92) 98 11/11/19 22:00 101 23 146/99 (115) 98 11/11/19 22:00 25 146/99 Mechanical Ventilator 40 11/11/19 21:30 97 18 144/96 (112) 97 11/11/19 21:00 19 126/76 Mechanical Ventilator 40 11/11/19 21:00 96 18 126/76 (93) 97 11/11/19 20:30 104 18 143/73 (96) 97 11/11/19 20:14 112 129/77 11/11/19 20:00 40 11/11/19 20:00 19 129/77 Mechanical Ventilator 40 11/11/19 20:00 100.3 107 21 129/77 (94) 96 11/11/19 20:00 99 11/11/19 19:30 107 21 128/67 (87) 97 11/11/19 19:21 106 19 40 11/11/19 19:00 17 137/77 Mechanical Ventilator 40 11/11/19 19:00 106 16 137/77 (97) 97 11/11/19 18:30 105 15 152/90 (110) 97 11/11/19 18:00 18 150/71 Mechanical Ventilator 40 11/11/19 18:00 104 18 150/71 (97) 97 11/11/19 17:30 103 26 139/72 (94) 96 11/11/19 17:00 103 25 133/68 (89) 96 11/11/19 17:00 25 133/68 Mechanical Ventilator 40 11/11/19 16:30 106 19 140/81 (100) 96 11/11/19 16:00 40 11/11/19 16:00 98.3 106 21 133/71 (91) 96 11/11/19 16:00 97 11/11/19 16:00 25 133/71 Mechanical Ventilator 30 11/11/19 15:30 101 21 125/67 (86) 96 11/11/19 15:11 103 21 40 11/11/19 15:00 98 17 134/81 (98) 96 11/11/19 15:00 22 134/81 Mechanical Ventilator 40 11/11/19 14:53 18 132/67 Mechanical Ventilator 40 11/11/19 14:30 100 19 132/67 (88) 96 11/11/19 14:00 20 132/67 Mechanical Ventilator 40 11/11/19 14:00 95 19 124/65 (84) 97 Intake and Output 11/11/19 11/12/19 18:59 06:59 Intake Total 1813.0 ml 1542.203 ml Output Total 570 ml 495 ml Balance 1243.0 ml 1047.203 ml Free Water 100 ml IV Total 993.0 ml 902.203 ml Tube Feeding 720 ml 580 ml Other 60 ml Output Urine Total 570 ml 495 ml General Appearance: no acute distress HEENT: normocephalic Respiratory: decreased breath sounds Cardiovascular: normal peripheral pulses Abdomen: normal bowel sounds Extremities: no cyanosis Laboratory Tests 11/11/19 17:34: Lactic Acid Level 2.80H 11/12/19 03:10: Lactic Acid Level 2.70H, White Blood Count 11.1H, Red Blood Count 3.57L, Hemoglobin 9.7L, Hematocrit 32.2L, Mean Corpuscular Volume 90, Mean Corpuscular Hemoglobin 27.1, Mean Corpuscular Hemoglobin Concent 30.1L, Red Cell Distribution Width 16.5H, Platelet Count 222, Mean Platelet Volume 6.6, Neutrophils (%) (Auto) , Lymphocytes (%) (Auto) , Monocytes (%) (Auto) , Eosinophils (%) (Auto) , Basophils (%) (Auto) , Sodium Level 147H, Potassium Level 4.8, Chloride Level 112H, Carbon Dioxide Level 27, Anion Gap 8, Blood Urea Nitrogen 49H, Creatinine 1.5H, Estimat Glomerular Filtration Rate 36.4, Glucose Level 373H, Hemoglobin A1c 10.4H, Calcium Level 8.0L, Total Bilirubin 1.1H, Direct Bilirubin 0.7H, Aspartate Amino Transf (AST/SGOT) 41H, Alanine Aminotransferase (ALT/SGPT) 39, Alkaline Phosphatase 184H, Total Protein 6.1L, Albumin 2.0L, Globulin 4.1, Albumin/Globulin Ratio 0.5L Current Medications Medications (Trade) Dose Ordered Sig/Robyn Route PRN Reason Start Time Stop Time Status Last Admin Dose Admin Acetaminophen (Tylenol) 650 mg Q6H PRN NG Temp >100.5 11/12/19 00:15 12/12/19 00:14 7/23/20 00:22 Chlorhexidine Gluconate (Miya-Hex 2%) 1 applic DAILY@2000 TOPIC 11/08/19 21:30 02/06/20 21:29 11/11/19 20:14 Clonidine HCl (Catapres Tab) 0.1 mg Q2H PRN NG For High Blood Pressure 11/11/19 11:00 02/09/20 10:59 Dexamethasone Sodium Phosphate (Decadron 10mg/ ml Inj) 6 mg DAILY IV 11/09/19 09:00 02/06/20 09:14 11/12/19 09:40 Dextrose (Dextrose 50%) 25 ml Q30M PRN IV Hypoglycemia 11/08/19 12:30 02/05/20 02:59 Dextrose (Dextrose 50%) 50 ml Q30M PRN IV Hypoglycemia 11/08/19 12:30 02/05/20 02:59 Dextrose/Sodium Chloride 1,000 ml @ 60 mls/hr [id number] IV 11/09/19 01:15 12/09/19 01:14 11/12/19 12:37 Famotidine (Pepcid I.v.) 20 mg Q12HR IVP 11/08/19 15:30 12/08/19 15:29 11/12/19 09:40 Fentanyl Citrate 250 ml @ 0 mls/hr Q24H IV 11/08/19 12:29 02/06/20 12:28 11/11/19 14:53 Insulin Aspart (NovoLOG) BEFORE MEALS AND HS SUBQ 11/08/19 16:30 02/05/20 06:29 11/12/19 12:36 Lorazepam (Ativan 2mg/ml 1ml) 1 mg Q4H PRN IV For Anxiety 11/08/19 12:32 11/15/19 12:31 Metoprolol Tartrate (Lopressor) 50 mg Q12HR NG 11/11/19 11:00 02/09/20 10:59 11/11/19 20:14 Remdesivir 100 mg/ Sodium Chloride 250 ml @ 250 mls/hr Q24H IV 11/12/19 13:00 11/16/19 13:59 11/12/19 12:37 Assessment/Plan Assessment/Plan IMPRESSION: 1. COVID-19 pneumonia. 2. Diabetes mellitus and hypertension. 3. Lactic acidemia. 4. Epistaxis 5. Respiratory failure DISCUSSION: Careful and close monitoring. Continue remdesivir and steroids. Vent weaning to continue. I will follow carefully. Lakeisha Zavaleta Omar Syed MD Nov 12, 2019 13:54
--- NOTE | 2019-11-12 14:06 | Surgery Progress Note ---
Surgery Progress Note Subjective Procedure Performed Hemostasis of left nostril hemorrhage emergency Additional Comments no bleeding leukocytosis anemia h/h stable tf tolerated vent settings down Objective Last 24 Hour Vital Signs Date Time Temp Pulse Resp B/P (MAP) Pulse Ox O2 Delivery O2 Flow Rate FiO2 11/12/19 13:30 69 21 107/54 (71) 96 11/12/19 13:00 71 20 110/67 (81) 95 11/12/19 12:30 72 21 125/98 (107) 95 11/12/19 12:00 Mechanical Ventilator 11/12/19 12:00 40 11/12/19 12:00 20 100/56 Mechanical Ventilator 40 11/12/19 12:00 70 11/12/19 12:00 72 19 106/55 (72) 95 11/12/19 11:14 76 20 40 11/12/19 11:00 71 20 108/61 (77) 95 11/12/19 11:00 21 108/61 Mechanical Ventilator 40 11/12/19 10:30 98.1 73 21 113/58 (76) 96 11/12/19 10:00 77 21 134/69 (90) 96 11/12/19 10:00 22 134/69 Mechanical Ventilator 40 11/12/19 09:30 69 22 101/51 (68) 94 11/12/19 09:00 60 98/51 11/12/19 09:00 22 98/51 Mechanical Ventilator 40 11/12/19 09:00 69 22 98/51 (67) 95 11/12/19 08:30 71 22 107/58 (74) 95 11/12/19 08:12 100 11/12/19 08:00 40 11/12/19 08:00 68 11/12/19 08:00 Mechanical Ventilator 11/12/19 08:00 22 130/59 Mechanical Ventilator 40 11/12/19 08:00 73 22 130/59 (82) 96 11/12/19 07:30 68 20 91/51 (64) 96 11/12/19 07:21 79 21 40 11/12/19 07:00 67 20 102/45 (64) 96 11/12/19 07:00 20 102/45 Mechanical Ventilator 40 11/12/19 06:30 67 21 91/51 (64) 96 11/12/19 06:30 62 21 7/23/20 06:00 67 22 99/49 (66) 96 11/12/19 06:00 21 99/49 Mechanical Ventilator 40 11/12/19 05:30 75 21 136/67 (90) 96 11/12/19 05:00 21 96/52 Mechanical Ventilator 40 11/12/19 05:00 72 23 96/52 (67) 97 11/12/19 04:30 75 23 106/58 (74) 97 11/12/19 04:00 21 96/63 Mechanical Ventilator 40 11/12/19 04:00 40 11/12/19 04:00 65 11/12/19 04:00 99.7 70 21 96/63 (74) 96 11/12/19 03:30 71 22 97/58 (71) 98 11/12/19 03:00 72 20 108/54 (72) 100 11/12/19 03:00 77 21 40 11/12/19 03:00 21 108/54 Mechanical Ventilator 40 11/12/19 02:30 75 23 119/63 (81) 98 11/12/19 02:00 23 103/46 Mechanical Ventilator 40 11/12/19 02:00 71 24 103/51 (68) 97 11/12/19 01:30 74 24 93/47 (62) 96 11/12/19 01:00 77 25 94/42 (59) 97 11/12/19 01:00 25 94/42 Mechanical Ventilator 40 11/12/19 00:52 100.3 11/12/19 00:30 84 24 102/53 (69) 97 11/12/19 00:00 23 101/46 Mechanical Ventilator 40 11/12/19 00:00 40 11/12/19 00:00 100.7 87 23 101/46 (64) 97 11/12/19 00:00 98 11/11/19 23:30 94 23 99/55 (70) 98 11/11/19 23:00 24 115/64 Mechanical Ventilator 40 11/11/19 23:00 101 24 115/64 (81) 98 11/11/19 22:41 103 18 40 11/11/19 22:30 108 23 123/76 (92) 98 11/11/19 22:00 101 23 146/99 (115) 98 11/11/19 22:00 25 146/99 Mechanical Ventilator 40 11/11/19 21:30 97 18 144/96 (112) 97 11/11/19 21:00 19 126/76 Mechanical Ventilator 40 11/11/19 21:00 96 18 126/76 (93) 97 11/11/19 20:30 104 18 143/73 (96) 97 11/11/19 20:14 112 129/77 11/11/19 20:00 40 11/11/19 20:00 19 129/77 Mechanical Ventilator 40 11/11/19 20:00 100.3 107 21 129/77 (94) 96 11/11/19 20:00 99 11/11/19 19:30 107 21 128/67 (87) 97 11/11/19 19:21 106 19 40 11/11/19 19:00 17 137/77 Mechanical Ventilator 40 11/11/19 19:00 106 16 137/77 (97) 97 11/11/19 18:30 105 15 152/90 (110) 97 11/11/19 18:00 18 150/71 Mechanical Ventilator 40 11/11/19 18:00 104 18 150/71 (97) 97 11/11/19 17:30 103 26 139/72 (94) 96 11/11/19 17:00 103 25 133/68 (89) 96 11/11/19 17:00 25 133/68 Mechanical Ventilator 40 11/11/19 16:30 106 19 140/81 (100) 96 11/11/19 16:00 40 11/11/19 16:00 98.3 106 21 133/71 (91) 96 11/11/19 16:00 97 11/11/19 16:00 25 133/71 Mechanical Ventilator 30 11/11/19 15:30 101 21 125/67 (86) 96 11/11/19 15:11 103 21 40 11/11/19 15:00 98 17 134/81 (98) 96 11/11/19 15:00 22 134/81 Mechanical Ventilator 40 11/11/19 14:53 18 132/67 Mechanical Ventilator 40 11/11/19 14:30 100 19 132/67 (88) 96 I&O Intake and Output 11/11/19 11/12/19 19:00 07:00 Intake Total 1723.5 ml 1602.703 ml Output Total 570 ml 495 ml Balance 1153.5 ml 1107.703 ml Free Water 100 ml IV Total 903.5 ml 982.703 ml Tube Feeding 720 ml 560 ml Other 60 ml Output Urine Total 570 ml 495 ml Dressing: dry Wound: clean Cardiovascular: RSR Respiratory: decreased breath sounds Abdomen: soft, non-tender, present bowel sounds Extremities: no tenderness, no cyanosis Laboratory Tests Test 11/11/19 17:34 11/12/19 03:10 Lactic Acid Level 2.80 mmol/L (0.4-2.0) H 2.70 mmol/L (0.4-2.0) H White Blood Count 11.1 K/UL (4.8-10.8) H Red Blood Count 3.57 M/UL (4.20-5.40) L Hemoglobin 9.7 G/DL (12.0-16.0) L Hematocrit 32.2 % (37.0-47.0) L Mean Corpuscular Volume 90 FL (80-99) Mean Corpuscular Hemoglobin 27.1 PG (27.0-31.0) Mean Corpuscular Hemoglobin Concent 30.1 G/DL (32.0-36.0) L Red Cell Distribution Width 16.5 % (11.6-14.8) H Platelet Count 222 K/UL (150-450) Mean Platelet Volume 6.6 FL (6.5-10.1) Neutrophils (%) (Auto) % (45.0-75.0) Lymphocytes (%) (Auto) % (20.0-45.0) Monocytes (%) (Auto) % (1.0-10.0) Eosinophils (%) (Auto) % (0.0-3.0) Basophils (%) (Auto) % (0.0-2.0) Sodium Level 147 MMOL/L (136-145) H Potassium Level 4.8 MMOL/L (3.5-5.1) Chloride Level 112 MMOL/L (98-107) H Carbon Dioxide Level 27 MMOL/L (21-32) Anion Gap 8 mmol/L (5-15) Blood Urea Nitrogen 49 mg/dL (7-18) H Creatinine 1.5 MG/DL (0.55-1.30) H Estimat Glomerular Filtration Rate 36.4 mL/min (>60) Glucose Level 373 MG/DL (74-106) H Hemoglobin A1c 10.4 % (4.3-6.0) H Calcium Level 8.0 MG/DL (8.5-10.1) L Total Bilirubin 1.1 MG/DL (0.2-1.0) H Direct Bilirubin 0.7 MG/DL (0.0-0.3) H Aspartate Amino Transf (AST/SGOT) 41 U/L (15-37) H Alanine Aminotransferase (ALT/SGPT) 39 U/L (12-78) Alkaline Phosphatase 184 U/L (46-116) H Total Protein 6.1 G/DL (6.4-8.2) L Albumin 2.0 G/DL (3.4-5.0) L Globulin 4.1 g/dL Albumin/Globulin Ratio 0.5 (1.0-2.7) L Plan Problems: (1) Weak (2) UTI (urinary tract infection) (3) Hypoxia (4) Epistaxis Assessment & Plan: Severe after taxis left nostril Rhino Rocket placed hemostasis noted over the course 24 hours hemoglobin stable Lovenox been stopped. The balloon of both ports of the Rhino Rocket were deflated today. The rocket itself was not removed and will monitor over the course next 24 hours hemostasis. If so will gently remove and plan for local monitoring. Currently wean ventilator as tolerated. Goals of extubation when possible. deflated balloon 11/08 removed trumpet 11/09 will monitor for bleeding wean vent plan extubation discussed with pulm (5) Fluid overload Assessment & Plan: Continue central venous catheter for now. Will anticipate removal once patient stable for extubation. Thank you for allowing me to participate patient's care (6) Diabetes (7) CHF (congestive heart failure) (8) Afib (9) Multifocal pneumonia (10) 2019 novel coronavirus disease (COVID-19) (11) Respiratory failure Ortiz Fleming Nov 12, 2019 14:06
[2019-11-12] MEDS: fentaNYL 2500mcg/NS 250ml 250 ML IV SCH (14:14)
--- NOTE | 2019-11-12 16:21 | Cardiac Electrophysiology PN ---
Assessment/Plan Assessment/Plan 1. Atrial fibrillation. Off Lovenox . Change metoprolol to 25 mg po BID EF 55% on echo. 2. HTN, decrease Lopressor to 25 bid for Low BP 3. COVID positive pneumonia. On Remdesevir and dexamethasone. 4. Diabetes, on insulin. 5. Respiratory failure on the Vent. 6. S/P Massive nasal bleed. 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 In ICU off pressors on the vent. In atrial fib . Off Lovenox. Has OG tube Objective Last 24 Hour Vital Signs Date Time Temp Pulse Resp B/P (MAP) Pulse Ox O2 Delivery O2 Flow Rate FiO2 11/12/19 15:08 74 21 40 11/12/19 15:00 75 20 102/52 (69) 94 11/12/19 14:30 74 20 121/53 (75) 96 11/12/19 14:14 21 107/54 Mechanical Ventilator 60.0 40 11/12/19 14:00 74 21 126/67 (86) 96 11/12/19 13:30 69 21 107/54 (71) 96 11/12/19 13:00 71 20 110/67 (81) 95 11/12/19 12:30 72 21 125/98 (107) 95 11/12/19 12:00 Mechanical Ventilator 11/12/19 12:00 40 11/12/19 12:00 20 100/56 Mechanical Ventilator 40 11/12/19 12:00 70 11/12/19 12:00 72 19 106/55 (72) 95 11/12/19 11:14 76 20 40 11/12/19 11:00 71 20 108/61 (77) 95 11/12/19 11:00 21 108/61 Mechanical Ventilator 40 11/12/19 10:30 98.1 73 21 113/58 (76) 96 11/12/19 10:00 77 21 134/69 (90) 96 11/12/19 10:00 22 134/69 Mechanical Ventilator 40 11/12/19 09:30 69 22 101/51 (68) 94 11/12/19 09:00 60 98/51 11/12/19 09:00 22 98/51 Mechanical Ventilator 40 11/12/19 09:00 69 22 98/51 (67) 95 11/12/19 08:30 71 22 107/58 (74) 95 11/12/19 08:12 100 11/12/19 08:00 40 11/12/19 08:00 68 11/12/19 08:00 Mechanical Ventilator 11/12/19 08:00 22 130/59 Mechanical Ventilator 40 11/12/19 08:00 73 22 130/59 (82) 96 11/12/19 07:30 68 20 91/51 (64) 96 11/12/19 07:21 79 21 40 11/12/19 07:00 67 20 102/45 (64) 96 11/12/19 07:00 20 102/45 Mechanical Ventilator 40 11/12/19 06:30 67 21 91/51 (64) 96 11/12/19 06:30 62 21 11/12/19 06:00 67 22 99/49 (66) 96 11/12/19 06:00 21 99/49 Mechanical Ventilator 40 11/12/19 05:30 75 21 136/67 (90) 96 11/12/19 05:00 21 96/52 Mechanical Ventilator 40 11/12/19 05:00 72 23 96/52 (67) 97 11/12/19 04:30 75 23 106/58 (74) 97 11/12/19 04:00 21 96/63 Mechanical Ventilator 40 11/12/19 04:00 40 11/12/19 04:00 65 11/12/19 04:00 99.7 70 21 96/63 (74) 96 11/12/19 03:30 71 22 97/58 (71) 98 11/12/19 03:00 72 20 108/54 (72) 100 11/12/19 03:00 77 21 40 11/12/19 03:00 21 108/54 Mechanical Ventilator 40 11/12/19 02:30 75 23 119/63 (81) 98 11/12/19 02:00 23 103/46 Mechanical Ventilator 40 11/12/19 02:00 71 24 103/51 (68) 97 11/12/19 01:30 74 24 93/47 (62) 96 11/12/19 01:00 77 25 94/42 (59) 97 11/12/19 01:00 25 94/42 Mechanical Ventilator 40 11/12/19 00:52 100.3 11/12/19 00:30 84 24 102/53 (69) 97 11/12/19 00:00 23 101/46 Mechanical Ventilator 40 11/12/19 00:00 40 11/12/19 00:00 100.7 87 23 101/46 (64) 97 11/12/19 00:00 98 11/11/19 23:30 94 23 99/55 (70) 98 11/11/19 23:00 24 115/64 Mechanical Ventilator 40 11/11/19 23:00 101 24 115/64 (81) 98 11/11/19 22:41 103 18 40 11/11/19 22:30 108 23 123/76 (92) 98 11/11/19 22:00 101 23 146/99 (115) 98 11/11/19 22:00 25 146/99 Mechanical Ventilator 40 11/11/19 21:30 97 18 144/96 (112) 97 11/11/19 21:00 19 126/76 Mechanical Ventilator 40 11/11/19 21:00 96 18 126/76 (93) 97 11/11/19 20:30 104 18 143/73 (96) 97 11/11/19 20:14 112 129/77 11/11/19 20:00 40 11/11/19 20:00 19 129/77 Mechanical Ventilator 40 11/11/19 20:00 100.3 107 21 129/77 (94) 96 11/11/19 20:00 99 11/11/19 19:30 107 21 128/67 (87) 97 11/11/19 19:21 106 19 40 11/11/19 19:00 17 137/77 Mechanical Ventilator 40 11/11/19 19:00 106 16 137/77 (97) 97 11/11/19 18:30 105 15 152/90 (110) 97 11/11/19 18:00 18 150/71 Mechanical Ventilator 40 11/11/19 18:00 104 18 150/71 (97) 97 11/11/19 17:30 103 26 139/72 (94) 96 11/11/19 17:00 103 25 133/68 (89) 96 11/11/19 17:00 25 133/68 Mechanical Ventilator 40 11/11/19 16:30 106 19 140/81 (100) 96 Intake and Output 11/11/19 11/12/19 19:00 07:00 Intake Total 1723.5 ml 1602.703 ml Output Total 570 ml 495 ml Balance 1153.5 ml 1107.703 ml Free Water 100 ml IV Total 903.5 ml 982.703 ml Tube Feeding 720 ml 560 ml Other 60 ml Output Urine Total 570 ml 495 ml Laboratory Tests Test 11/11/19 17:34 11/12/19 03:10 Lactic Acid Level 2.80 mmol/L (0.4-2.0) H 2.70 mmol/L (0.4-2.0) H White Blood Count 11.1 K/UL (4.8-10.8) H Red Blood Count 3.57 M/UL (4.20-5.40) L Hemoglobin 9.7 G/DL (12.0-16.0) L Hematocrit 32.2 % (37.0-47.0) L Mean Corpuscular Volume 90 FL (80-99) Mean Corpuscular Hemoglobin 27.1 PG (27.0-31.0) Mean Corpuscular Hemoglobin Concent 30.1 G/DL (32.0-36.0) L Red Cell Distribution Width 16.5 % (11.6-14.8) H Platelet Count 222 K/UL (150-450) Mean Platelet Volume 6.6 FL (6.5-10.1) Neutrophils (%) (Auto) % (45.0-75.0) Lymphocytes (%) (Auto) % (20.0-45.0) Monocytes (%) (Auto) % (1.0-10.0) Eosinophils (%) (Auto) % (0.0-3.0) Basophils (%) (Auto) % (0.0-2.0) Sodium Level 147 MMOL/L (136-145) H Potassium Level 4.8 MMOL/L (3.5-5.1) Chloride Level 112 MMOL/L (98-107) H Carbon Dioxide Level 27 MMOL/L (21-32) Anion Gap 8 mmol/L (5-15) Blood Urea Nitrogen 49 mg/dL (7-18) H Creatinine 1.5 MG/DL (0.55-1.30) H Estimat Glomerular Filtration Rate 36.4 mL/min (>60) Glucose Level 373 MG/DL (74-106) H Hemoglobin A1c 10.4 % (4.3-6.0) H Calcium Level 8.0 MG/DL (8.5-10.1) L Total Bilirubin 1.1 MG/DL (0.2-1.0) H Direct Bilirubin 0.7 MG/DL (0.0-0.3) H Aspartate Amino Transf (AST/SGOT) 41 U/L (15-37) H Alanine Aminotransferase (ALT/SGPT) 39 U/L (12-78) Alkaline Phosphatase 184 U/L (46-116) H Total Protein 6.1 G/DL (6.4-8.2) L Albumin 2.0 G/DL (3.4-5.0) L Globulin 4.1 g/dL Albumin/Globulin Ratio 0.5 (1.0-2.7) L Objective HEAD AND NECK: No JVD. Rhinorocket in her left Nostril Orally intubated LUNGS: Coarse rhonchi. CARDIOVASCULAR: Irregularly irregular. S1 and S2 with no gallop or murmur. ABDOMEN: Soft. EXTREMITIES: No pitting edema. Gabe Snell MD Nov 12, 2019 16:21
[2019-11-12] MEDS: Dyna-Hex 2% Top Sol 2oz TOPIC SCH (20:03)
[2019-11-13] VITALS (42 sets, daily range): BP systolic 98–199; BP diastolic 60–121
[2019-11-13] MEDS: D5NS 1,000 ML IV SCH (02:44)
[2019-11-13 04:51] LABS: HEMATOCRIT 36.6 % (37.0-47.0); HEMOGLOBIN 10.7 G/DL (12.0-16.0); MEAN CORPUSCULAR VOLUME 92 FL (80-99); PLATELET COUNT 197 K/UL (150-450); RED CELL DISTRIBUTION WIDTH 16.6 % (11.6-14.8)
[2019-11-13 05:10] LABS: ANION GAP 4 mmol/L (5-15); BLOOD UREA NITROGEN 41 mg/dL (7-18); CALCIUM 8.3 MG/DL (8.5-10.1); CARBON DIOXIDE 28 MMOL/L (21-32); CHLORIDE 116 MMOL/L (98-107); CREATININE 1.2 MG/DL (0.55-1.30); POTASSIUM 5.3 MMOL/L (3.5-5.1); SODIUM 148 MMOL/L (136-145)
[2019-11-13] MEDS: NovoLOG Insulin Flexpen SUBQ SCH ×4 (05:17→21:35)
--- NOTE | 2019-11-13 05:53 | Pulmonology Progress Note ---
Subjective ROS Limited/Unobtainable: No Interval Events: Intubated; no further epistaxis; packed by Dr Fleming Constitutional: Reports: other - nasal bleeding HEENT: Repors: no symptoms Respiratory: Reports: dry cough, shortness of breath Cardiovascular: Reports: no symptoms Gastrointestinal/Abdominal: Reports: no symptoms Allergies: Coded Allergies: No Known Allergies (Unverified , 11/06/19) All Systems: reviewed and negative except above Objective Last 24 Hour Vital Signs Date Time Temp Pulse Resp B/P (MAP) Pulse Ox O2 Delivery O2 Flow Rate FiO2 11/13/19 05:00 20 119/66 Mechanical Ventilator 40 11/13/19 05:00 74 20 119/66 (83) 96 11/13/19 04:30 72 19 125/63 (83) 96 11/13/19 04:00 97.9 75 20 111/67 (82) 96 11/13/19 04:00 20 111/67 Mechanical Ventilator 40 11/13/19 04:00 74 11/13/19 04:00 40 11/13/19 03:30 71 19 112/60 (77) 97 11/13/19 03:00 19 118/72 Mechanical Ventilator 40 11/13/19 03:00 69 19 118/72 (87) 97 11/13/19 02:55 72 18 40 11/13/19 02:30 72 18 106/64 (78) 96 11/13/19 02:00 18 115/69 Mechanical Ventilator 40 11/13/19 02:00 70 19 112/65 (81) 98 11/13/19 01:30 69 18 115/69 (84) 98 11/13/19 01:00 19 115/69 Mechanical Ventilator 40 11/13/19 01:00 74 19 116/63 (80) 98 11/13/19 00:30 75 22 139/87 (104) 98 11/13/19 00:00 74 11/13/19 00:00 97.7 71 18 98/60 (73) 97 11/13/19 00:00 18 139/87 Mechanical Ventilator 40 11/13/19 00:00 40 11/12/19 23:00 79 20 118/71 (87) 97 11/12/19 23:00 20 118/71 Mechanical Ventilator 40 11/12/19 22:43 74 18 40 11/12/19 22:30 77 18 127/64 (85) 97 11/12/19 22:00 18 118/83 Mechanical Ventilator 40 11/12/19 22:00 77 18 118/83 (95) 96 11/12/19 21:30 80 18 124/66 (85) 96 11/12/19 21:00 19 124/65 Mechanical Ventilator 40 11/12/19 21:00 76 30 124/65 (84) 96 46 11/12/19 20:30 78 22 149/86 (107) 96 78 11/12/19 20:04 81 145/65 11/12/19 20:00 72 11/12/19 20:00 19 118/50 Mechanical Ventilator 40 11/12/19 20:00 40 11/12/19 20:00 97.9 78 18 118/50 (72) 96 11/12/19 19:30 76 19 145/65 (91) 97 11/12/19 19:02 77 19 40 11/12/19 19:00 76 19 119/66 (83) 98 11/12/19 19:00 20 119/66 Mechanical Ventilator 40 11/12/19 18:30 75 19 117/60 (79) 98 11/12/19 18:30 74 19 121/64 (83) 97 11/12/19 18:00 81 20 121/64 (83) 97 11/12/19 18:00 79 20 137/56 (83) 97 11/12/19 18:00 19 137/56 Mechanical Ventilator 40 11/12/19 17:30 63 19 137/56 (83) 96 11/12/19 17:00 74 20 108/52 (70) 96 11/12/19 17:00 19 108/52 Mechanical Ventilator 40 11/12/19 16:00 98.3 71 20 104/58 (73) 96 11/12/19 16:00 40 11/12/19 16:00 20 104/58 Mechanical Ventilator 40 11/12/19 16:00 Mechanical Ventilator 11/12/19 16:00 69 11/12/19 15:08 74 21 40 11/12/19 15:00 75 20 102/52 (69) 94 11/12/19 15:00 21 121/53 Mechanical Ventilator 40 11/12/19 14:30 74 20 121/53 (75) 96 11/12/19 14:14 21 107/54 Mechanical Ventilator 60.0 40 11/12/19 14:00 21 126/68 Mechanical Ventilator 40 11/12/19 14:00 74 21 126/67 (86) 96 11/12/19 13:30 69 21 107/54 (71) 96 11/12/19 13:00 21 110/67 Mechanical Ventilator 40 11/12/19 13:00 71 20 110/67 (81) 95 11/12/19 12:30 72 21 125/98 (107) 95 11/12/19 12:00 Mechanical Ventilator 11/12/19 12:00 40 11/12/19 12:00 20 100/56 Mechanical Ventilator 40 11/12/19 12:00 70 11/12/19 12:00 72 19 106/55 (72) 95 11/12/19 11:14 76 20 40 11/12/19 11:00 71 20 108/61 (77) 95 11/12/19 11:00 21 108/61 Mechanical Ventilator 40 11/12/19 10:30 98.1 73 21 113/58 (76) 96 11/12/19 10:00 77 21 134/69 (90) 96 11/12/19 10:00 22 134/69 Mechanical Ventilator 40 11/12/19 09:30 69 22 101/51 (68) 94 11/12/19 09:00 60 98/51 11/12/19 09:00 22 98/51 Mechanical Ventilator 40 11/12/19 09:00 69 22 98/51 (67) 95 11/12/19 08:30 71 22 107/58 (74) 95 11/12/19 08:12 100 11/12/19 08:00 40 11/12/19 08:00 68 11/12/19 08:00 Mechanical Ventilator 11/12/19 08:00 22 130/59 Mechanical Ventilator 40 11/12/19 08:00 73 22 130/59 (82) 96 11/12/19 07:30 68 20 91/51 (64) 96 11/12/19 07:21 79 21 40 11/12/19 07:00 67 20 102/45 (64) 96 11/12/19 07:00 20 102/45 Mechanical Ventilator 40 11/12/19 06:30 67 21 91/51 (64) 96 11/12/19 06:30 62 21 11/12/19 06:00 67 22 99/49 (66) 96 11/12/19 06:00 21 99/49 Mechanical Ventilator 40 Intake and Output 11/12/19 11/13/19 19:00 07:00 Intake Total 1857.5 ml 1135 ml Output Total 585 ml 435 ml Balance 1272.5 ml 700 ml Free Water 120 ml IV Total 1257.5 ml 705 ml Tube Feeding 480 ml 400 ml Other 30 ml Output Urine Total 585 ml 435 ml General Appearance: no acute distress HEENT: normocephalic Respiratory: decreased breath sounds Cardiovascular: normal peripheral pulses Abdomen: normal bowel sounds Extremities: no cyanosis Laboratory Tests 11/13/19 03:46: White Blood Count 13.0H, Red Blood Count 4.00L, Hemoglobin 10.7L, Hematocrit 36.6L, Mean Corpuscular Volume 92, Mean Corpuscular Hemoglobin 26.8L, Mean Corpuscular Hemoglobin Concent 29.3L, Red Cell Distribution Width 16.6H, Platelet Count 197, Mean Platelet Volume 5.9L, Neutrophils (%) (Auto) , Lymphocytes (%) (Auto) , Monocytes (%) (Auto) , Eosinophils (%) (Auto) , Basophils (%) (Auto) , Neutrophils % (Manual) [Pending], Lymphocytes % (Manual) [Pending], Platelet Estimate [Pending], Platelet Morphology [Pending], Sodium Level 148H, Potassium Level 5.3H, Chloride Level 116H, Carbon Dioxide Level 28, Anion Gap 4L, Blood Urea Nitrogen 41H, Creatinine 1.2, Estimat Glomerular Filtration Rate 47.0, Glucose Level 428H, Lactic Acid Level 2.60H, Calcium Level 8.3L Current Medications Medications (Trade) Dose Ordered Sig/Robyn Route PRN Reason Start Time Stop Time Status Last Admin Dose Admin Acetaminophen (Tylenol) 650 mg Q6H PRN NG Temp >100.5 11/12/19 00:15 12/12/19 00:14 11/12/19 00:22 Chlorhexidine Gluconate (Miya-Hex 2%) 1 applic DAILY@1999 TOPIC 11/08/19 21:30 02/06/20 21:29 11/12/19 20:03 Clonidine HCl (Catapres Tab) 0.1 mg Q2H PRN NG For High Blood Pressure 11/11/19 11:00 02/09/20 10:59 Dexamethasone Sodium Phosphate (Decadron 10mg/ ml Inj) 6 mg DAILY IV 11/09/19 09:00 02/06/20 09:14 11/12/19 09:40 Dextrose (Dextrose 50%) 25 ml Q30M PRN IV Hypoglycemia 11/08/19 12:30 02/05/20 02:59 Dextrose (Dextrose 50%) 50 ml Q30M PRN IV Hypoglycemia 11/08/19 12:30 02/05/20 02:59 Dextrose/Sodium Chloride 1,000 ml @ 60 mls/hr [id number] IV 11/09/19 01:15 12/09/19 01:14 11/13/19 02:44 Famotidine (Pepcid I.v.) 20 mg Q12HR IVP 11/08/19 15:30 12/08/19 15:29 11/12/19 20:03 Fentanyl Citrate 250 ml @ 0 mls/hr Q24H IV 11/08/19 12:29 02/06/20 12:28 11/12/19 14:14 Insulin Aspart (NovoLOG) BEFORE MEALS AND HS SUBQ 11/08/19 16:30 02/05/20 06:29 11/13/19 05:17 Lorazepam (Ativan 2mg/ml 1ml) 1 mg Q4H PRN IV For Anxiety 11/08/19 12:32 11/15/19 12:31 Metoprolol Tartrate (Lopressor) 25 mg Q12HR NG 11/12/19 21:00 02/09/20 10:59 11/12/19 20:04 Remdesivir 100 mg/ Sodium Chloride 250 ml @ 250 mls/hr Q24H IV 11/12/19 13:00 11/16/19 13:59 11/12/19 12:37 Assessment/Plan Assessment/Plan IMPRESSION: 1. COVID-19 pneumonia. 2. Diabetes mellitus and hypertension. 3. Lactic acidemia. 4. Epistaxis 5. Respiratory failure DISCUSSION: Careful and close monitoring. Continue remdesivir and steroids. Vent weaning to continue. I will follow carefully. Anthony Tirmizi, M.D. Tirmizi,Anthony Zane MD Nov 13, 2019 05:53
--- NOTE | 2019-11-13 06:36 | General Progress Note ---
Assessment/Plan Status: unchanged Assessment/Plan: # Anemia of chronic disease due to underlying chronic medical issues, multifactorial v Gi bleed in this case likely related covid19+++++++++ --> Anemia workup has been ordered, rule out gi bleed --> No evidence of hemolysis is noted, peripheral smear has been reviewed. --> Hgb goal >7. Transfuse prn. --> Epogen or iron at this time is not particularly indicated --> Medications have been reviewed --> low threshold for gi evaluation in case has occult + --> hgb 10-->9.8-->9.2-->9.7-->10.7 # Leukocytosis/elevated white blood cell count, unspecified likely related to covid19 --> have reviewed peripheral smear and bandemia/neutrophilia noted --> continue antibiotics if they have been started by ID team zosyn --> on remdesivir, dex --> monitor for resolution --> wbc 12->11-->11-->13 # COVID 19 pneumonia --> on vent --> respiratory failure --> s/p vent # Diabetes mellitus --> iss and bs goal <140 # Hypertension --> sbp goal <150 Appreciate consultation and jimena RN Subjective Constitutional: Denies: no symptoms, chills, diaphoresis, fever, malaise, weakness, other HEENT: Denies: no symptoms, eye pain, blurred vision, tearing, double vision, ear pain, ear discharge, nose pain, nose congestion, throat pain, throat swelling, mouth pain, mouth swelling, other Cardiovascular: Denies: no symptoms, chest pain, edema, irregular heart rate, lightheadedness, palpitations, syncope, other Respiratory: Denies: no symptoms, cough, orthopnea, shortness of breath, SOB with excertion, SOB at rest, sputum, stridor, wheezing, other Gastrointestinal/Abdominal: Denies: no symptoms, abdomen distended, abdominal pain, black stools, tarry stools, blood in stool, constipated, diarrhea, difficulty swallowing, nausea, poor appetite, poor fluid intake, rectal bleeding , vomiting, other Genitourinary: Denies: no symptoms, burning, discharge, frequency, flank pain, hematuria, incontinence, pain, urgency, other Neurologic/Psychiatric: Denies: no symptoms, anxiety, depressed, emotional problems, headache, numbness, paresthesia, pre-existing deficit, seizure, tingling, tremors, weakness, other Endocrine: Denies: no symptoms, excessive sweating, flushing, intolerance to cold, intolerance to heat, increased hunger, increased thirst, increased urine, unexplained weight gain, unexplained weight loss, other Allergies: Coded Allergies: No Known Allergies (Unverified , 11/06/19) Subjective 11/09 weaning prn, meds reviewed, labs noted, hgb 9.2 11/10 on vent, no bleeding, hgb remains low, dw Rn Jose R in am 11/11 on vent, fluids, ogf tube as well, labs pending in am 11/12 remains altered, no bleeding, labs reviewed, cbc noted Objective Last 24 Hour Vital Signs Date Time Temp Pulse Resp B/P (MAP) Pulse Ox O2 Delivery O2 Flow Rate FiO2 11/13/19 05:00 20 119/66 Mechanical Ventilator 40 11/13/19 05:00 74 20 119/66 (83) 96 11/13/19 04:30 72 19 125/63 (83) 96 11/13/19 04:00 97.9 75 20 111/67 (82) 96 11/13/19 04:00 20 111/67 Mechanical Ventilator 40 11/13/19 04:00 74 11/13/19 04:00 40 11/13/19 03:30 71 19 112/60 (77) 97 11/13/19 03:00 19 118/72 Mechanical Ventilator 40 11/13/19 03:00 69 19 118/72 (87) 97 11/13/19 02:55 72 18 40 11/13/19 02:30 72 18 106/64 (78) 96 11/13/19 02:00 18 115/69 Mechanical Ventilator 40 11/13/19 02:00 70 19 112/65 (81) 98 11/13/19 01:30 69 18 115/69 (84) 98 11/13/19 01:00 19 115/69 Mechanical Ventilator 40 11/13/19 01:00 74 19 116/63 (80) 98 11/13/19 00:30 75 22 139/87 (104) 98 11/13/19 00:00 74 11/13/19 00:00 97.7 71 18 98/60 (73) 97 11/13/19 00:00 18 139/87 Mechanical Ventilator 40 11/13/19 00:00 40 11/12/19 23:00 79 20 118/71 (87) 97 11/12/19 23:00 20 118/71 Mechanical Ventilator 40 11/12/19 22:43 74 18 40 11/12/19 22:30 77 18 127/64 (85) 97 11/12/19 22:00 18 118/83 Mechanical Ventilator 40 11/12/19 22:00 77 18 118/83 (95) 96 11/12/19 21:30 80 18 124/66 (85) 96 11/12/19 21:00 19 124/65 Mechanical Ventilator 40 11/12/19 21:00 76 30 124/65 (84) 96 46 11/12/19 20:30 78 22 149/86 (107) 96 78 11/12/19 20:04 81 145/65 11/12/19 20:00 72 11/12/19 20:00 19 118/50 Mechanical Ventilator 40 11/12/19 20:00 40 11/12/19 20:00 97.9 78 18 118/50 (72) 96 11/12/19 19:30 76 19 145/65 (91) 97 11/12/19 19:02 77 19 40 11/12/19 19:00 76 19 119/66 (83) 98 11/12/19 19:00 20 119/66 Mechanical Ventilator 40 11/12/19 18:30 75 19 117/60 (79) 98 11/12/19 18:30 74 19 121/64 (83) 97 11/12/19 18:00 81 20 121/64 (83) 97 11/12/19 18:00 79 20 137/56 (83) 97 11/12/19 18:00 19 137/56 Mechanical Ventilator 40 11/12/19 17:30 63 19 137/56 (83) 96 11/12/19 17:00 74 20 108/52 (70) 96 11/12/19 17:00 19 108/52 Mechanical Ventilator 40 11/12/19 16:00 98.3 71 20 104/58 (73) 96 11/12/19 16:00 40 11/12/19 16:00 20 104/58 Mechanical Ventilator 40 11/12/19 16:00 Mechanical Ventilator 11/12/19 16:00 69 11/12/19 15:08 74 21 40 11/12/19 15:00 75 20 102/52 (69) 94 11/12/19 15:00 21 121/53 Mechanical Ventilator 40 11/12/19 14:30 74 20 121/53 (75) 96 11/12/19 14:14 21 107/54 Mechanical Ventilator 60.0 40 11/12/19 14:00 21 126/68 Mechanical Ventilator 40 11/12/19 14:00 74 21 126/67 (86) 96 11/12/19 13:30 69 21 107/54 (71) 96 11/12/19 13:00 21 110/67 Mechanical Ventilator 40 11/12/19 13:00 71 20 110/67 (81) 95 11/12/19 12:30 72 21 125/98 (107) 95 11/12/19 12:00 Mechanical Ventilator 11/12/19 12:00 40 11/12/19 12:00 20 100/56 Mechanical Ventilator 40 11/12/19 12:00 70 11/12/19 12:00 72 19 106/55 (72) 95 11/12/19 11:14 76 20 40 11/12/19 11:00 71 20 108/61 (77) 95 11/12/19 11:00 21 108/61 Mechanical Ventilator 40 11/12/19 10:30 98.1 73 21 113/58 (76) 96 11/12/19 10:00 77 21 134/69 (90) 96 11/12/19 10:00 22 134/69 Mechanical Ventilator 40 11/12/19 09:30 69 22 101/51 (68) 94 11/12/19 09:00 60 98/51 11/12/19 09:00 22 98/51 Mechanical Ventilator 40 11/12/19 09:00 69 22 98/51 (67) 95 11/12/19 08:30 71 22 107/58 (74) 95 11/12/19 08:12 100 11/12/19 08:00 40 11/12/19 08:00 68 11/12/19 08:00 Mechanical Ventilator 11/12/19 08:00 22 130/59 Mechanical Ventilator 40 11/12/19 08:00 73 22 130/59 (82) 96 11/12/19 07:30 68 20 91/51 (64) 96 11/12/19 07:21 79 21 40 11/12/19 07:00 67 20 102/45 (64) 96 11/12/19 07:00 20 102/45 Mechanical Ventilator 40 Intake and Output 11/12/19 11/13/19 19:00 07:00 Intake Total 1857.5 ml 1135 ml Output Total 585 ml 435 ml Balance 1272.5 ml 700 ml Free Water 120 ml IV Total 1257.5 ml 705 ml Tube Feeding 480 ml 400 ml Other 30 ml Output Urine Total 585 ml 435 ml Laboratory Tests 11/13/19 03:46: White Blood Count 13.0H, Red Blood Count 4.00L, Hemoglobin 10.7L, Hematocrit 36.6L, Mean Corpuscular Volume 92, Mean Corpuscular Hemoglobin 26.8L, Mean Corpuscular Hemoglobin Concent 29.3L, Red Cell Distribution Width 16.6H, Platelet Count 197, Mean Platelet Volume 5.9L, Neutrophils (%) (Auto) , Lymphocytes (%) (Auto) , Monocytes (%) (Auto) , Eosinophils (%) (Auto) , Basophils (%) (Auto) , Neutrophils % (Manual) [Pending], Lymphocytes % (Manual) [Pending], Platelet Estimate [Pending], Platelet Morphology [Pending], Sodium Level 148H, Potassium Level 5.3H, Chloride Level 116H, Carbon Dioxide Level 28, Anion Gap 4L, Blood Urea Nitrogen 41H, Creatinine 1.2, Estimat Glomerular Filtration Rate 47.0, Glucose Level 428H, Lactic Acid Level 2.60H, Calcium Level 8.3L Height (Feet): 5 Height (Inches): 3.00 Weight (Pounds): 379 Objective Physical Exam: Vitals: reviewed General: NAD HEENT: nc, at Neck: supple Chest: clear breath sounds on vent++ Cardiovascular: RRR, no s3, s4 Abdomen: soft, nontender, nd Extremities: no cce, normal range of motion Neuro: alert and oriented Ismael Fischer MD Nov 13, 2019 06:35
--- NOTE | 2019-11-13 08:08 | Cardiac Electrophysiology PN ---
Assessment/Plan Assessment/Plan 1. Atrial fibrillation. Off anticoagulation for nasal bleed until cleared by Dr Fleming . On metoprolol 25 mg po BID EF 55% on echo. 2. HTN, Lopressor 25 bid for Low BP 3. COVID positive pneumonia. On Remdesevir and dexamethasone. 4. Diabetes, on insulin. 5. Respiratory failure on the Vent.Being weaned 6. S/P Massive nasal bleed. DW [employer] Subjective Subjective No more bleeding from nose. In ICU off pressors on the vent. In atrial fib rate controlled on Lopressor 25 bid. Has OG tube Off fentanyl drip Objective Last 24 Hour Vital Signs Date Time Temp Pulse Resp B/P (MAP) Pulse Ox O2 Delivery O2 Flow Rate FiO2 11/13/19 07:10 78 18 40 11/13/19 07:00 19 114/67 Mechanical Ventilator 40 11/13/19 07:00 81 18 114/67 (83) 96 11/13/19 06:30 78 19 120/66 (84) 97 11/13/19 06:30 77 19 11/13/19 06:00 78 19 120/77 (91) 96 11/13/19 06:00 20 120/77 Mechanical Ventilator 40 11/13/19 05:30 81 19 127/77 (94) 97 11/13/19 05:00 20 119/66 Mechanical Ventilator 40 11/13/19 05:00 74 20 119/66 (83) 96 11/13/19 04:30 72 19 125/63 (83) 96 11/13/19 04:00 97.9 75 20 111/67 (82) 96 11/13/19 04:00 20 111/67 Mechanical Ventilator 40 11/13/19 04:00 74 11/13/19 04:00 40 11/13/19 03:30 71 19 112/60 (77) 97 11/13/19 03:00 19 118/72 Mechanical Ventilator 40 11/13/19 03:00 69 19 118/72 (87) 97 11/13/19 02:55 72 18 40 11/13/19 02:30 72 18 106/64 (78) 96 11/13/19 02:00 18 115/69 Mechanical Ventilator 40 11/13/19 02:00 70 19 112/65 (81) 98 11/13/19 01:30 69 18 115/69 (84) 98 11/13/19 01:00 19 115/69 Mechanical Ventilator 40 11/13/19 01:00 74 19 116/63 (80) 98 11/13/19 00:30 75 22 139/87 (104) 98 11/13/19 00:00 74 11/13/19 00:00 97.7 71 18 98/60 (73) 97 11/13/19 00:00 18 139/87 Mechanical Ventilator 40 11/13/19 00:00 40 11/12/19 23:00 79 20 118/71 (87) 97 11/12/19 23:00 20 118/71 Mechanical Ventilator 40 11/12/19 22:43 74 18 40 11/12/19 22:30 77 18 127/64 (85) 97 11/12/19 22:00 18 118/83 Mechanical Ventilator 40 11/12/19 22:00 77 18 118/83 (95) 96 11/12/19 21:30 80 18 124/66 (85) 96 11/12/19 21:00 19 124/65 Mechanical Ventilator 40 11/12/19 21:00 76 30 124/65 (84) 96 46 11/12/19 20:30 78 22 149/86 (107) 96 78 11/12/19 20:04 81 145/65 11/12/19 20:00 72 11/12/19 20:00 19 118/50 Mechanical Ventilator 40 11/12/19 20:00 40 11/12/19 20:00 97.9 78 18 118/50 (72) 96 11/12/19 19:30 76 19 145/65 (91) 97 11/12/19 19:02 77 19 40 11/12/19 19:00 76 19 119/66 (83) 98 11/12/19 19:00 20 119/66 Mechanical Ventilator 40 11/12/19 18:30 75 19 117/60 (79) 98 11/12/19 18:30 74 19 121/64 (83) 97 11/12/19 18:00 81 20 121/64 (83) 97 11/12/19 18:00 79 20 137/56 (83) 97 11/12/19 18:00 19 137/56 Mechanical Ventilator 40 11/12/19 17:30 63 19 137/56 (83) 96 11/12/19 17:00 74 20 108/52 (70) 96 7/23/20 17:00 19 108/52 Mechanical Ventilator 40 11/12/19 16:00 98.3 71 20 104/58 (73) 96 11/12/19 16:00 40 11/12/19 16:00 20 104/58 Mechanical Ventilator 40 11/12/19 16:00 Mechanical Ventilator 11/12/19 16:00 69 11/12/19 15:08 74 21 40 11/12/19 15:00 75 20 102/52 (69) 94 11/12/19 15:00 21 121/53 Mechanical Ventilator 40 11/12/19 14:30 74 20 121/53 (75) 96 11/12/19 14:14 21 107/54 Mechanical Ventilator 60.0 40 11/12/19 14:00 21 126/68 Mechanical Ventilator 40 11/12/19 14:00 74 21 126/67 (86) 96 11/12/19 13:30 69 21 107/54 (71) 96 11/12/19 13:00 21 110/67 Mechanical Ventilator 40 11/12/19 13:00 71 20 110/67 (81) 95 11/12/19 12:30 72 21 125/98 (107) 95 11/12/19 12:00 Mechanical Ventilator 11/12/19 12:00 40 11/12/19 12:00 20 100/56 Mechanical Ventilator 40 11/12/19 12:00 70 11/12/19 12:00 72 19 106/55 (72) 95 11/12/19 11:14 76 20 40 11/12/19 11:00 71 20 108/61 (77) 95 11/12/19 11:00 21 108/61 Mechanical Ventilator 40 11/12/19 10:30 98.1 73 21 113/58 (76) 96 11/12/19 10:00 77 21 134/69 (90) 96 11/12/19 10:00 22 134/69 Mechanical Ventilator 40 11/12/19 09:30 69 22 101/51 (68) 94 11/12/19 09:00 60 98/51 11/12/19 09:00 22 98/51 Mechanical Ventilator 40 11/12/19 09:00 69 22 98/51 (67) 95 11/12/19 08:30 71 22 107/58 (74) 95 11/12/19 08:12 100 Intake and Output 11/12/19 11/13/19 19:00 07:00 Intake Total 1857.5 ml 1349 ml Output Total 585 ml 505 ml Balance 1272.5 ml 844 ml Free Water 120 ml IV Total 1257.5 ml 839 ml Tube Feeding 480 ml 480 ml Other 30 ml Output Urine Total 585 ml 505 ml Laboratory Tests Test 11/13/19 03:46 White Blood Count 13.0 K/UL (4.8-10.8) H Red Blood Count 4.00 M/UL (4.20-5.40) L Hemoglobin 10.7 G/DL (12.0-16.0) L Hematocrit 36.6 % (37.0-47.0) L Mean Corpuscular Volume 92 FL (80-99) Mean Corpuscular Hemoglobin 26.8 PG (27.0-31.0) L Mean Corpuscular Hemoglobin Concent 29.3 G/DL (32.0-36.0) L Red Cell Distribution Width 16.6 % (11.6-14.8) H Platelet Count 197 K/UL (150-450) Mean Platelet Volume 5.9 FL (6.5-10.1) L Neutrophils (%) (Auto) % (45.0-75.0) Lymphocytes (%) (Auto) % (20.0-45.0) Monocytes (%) (Auto) % (1.0-10.0) Eosinophils (%) (Auto) % (0.0-3.0) Basophils (%) (Auto) % (0.0-2.0) Neutrophils % (Manual) Pending Lymphocytes % (Manual) Pending Platelet Estimate Pending Platelet Morphology Pending Sodium Level 148 MMOL/L (136-145) H Potassium Level 5.3 MMOL/L (3.5-5.1) H Chloride Level 116 MMOL/L (98-107) H Carbon Dioxide Level 28 MMOL/L (21-32) Anion Gap 4 mmol/L (5-15) L Blood Urea Nitrogen 41 mg/dL (7-18) H Creatinine 1.2 MG/DL (0.55-1.30) Estimat Glomerular Filtration Rate 47.0 mL/min (>60) Glucose Level 428 MG/DL (74-106) H Lactic Acid Level 2.60 mmol/L (0.4-2.0) H Calcium Level 8.3 MG/DL (8.5-10.1) L Objective HEAD AND NECK: No JVD. OG tube Orally intubated LUNGS: Coarse rhonchi. CARDIOVASCULAR: Irregularly irregular. S1 and S2 with no gallop or murmur. ABDOMEN: Soft. EXTREMITIES: No pitting edema. Gabe Snell MD Nov 13, 2019 08:08
--- NOTE | 2019-11-13 08:20 | Infectious Diseases Prog Note ---
Assessment/Plan Assessment/Plan A: 1. COVID-19 pneumonia. 2. Diabetes with hyper 3. Hypertension. 4. Hypoxic respiratory failure 5. Morbid obesity 6. Nasal bleeding 7. Lactic acidosis 8. Hyperkalemia PLAN: 1. Continue remdesivir EUA day 7 2. Continue dexamethasone, 3. Continue isolation. Subjective ROS Limited/Unobtainable: Yes Constitutional: Denies: fever Respiratory: Reports: other - will have weaning today Allergies: Coded Allergies: No Known Allergies (Unverified , 11/06/19) Objective Last 24 Hour Vital Signs Date Time Temp Pulse Resp B/P (MAP) Pulse Ox O2 Delivery O2 Flow Rate FiO2 11/13/19 07:10 78 18 40 11/13/19 07:00 19 114/67 Mechanical Ventilator 40 11/13/19 07:00 81 18 114/67 (83) 96 11/13/19 06:30 78 19 120/66 (84) 97 11/13/19 06:30 77 19 11/13/19 06:00 78 19 120/77 (91) 96 11/13/19 06:00 20 120/77 Mechanical Ventilator 40 11/13/19 05:30 81 19 127/77 (94) 97 11/13/19 05:00 20 119/66 Mechanical Ventilator 40 11/13/19 05:00 74 20 119/66 (83) 96 11/13/19 04:30 72 19 125/63 (83) 96 11/13/19 04:00 97.9 75 20 111/67 (82) 96 11/13/19 04:00 20 111/67 Mechanical Ventilator 40 11/13/19 04:00 74 11/13/19 04:00 40 11/13/19 03:30 71 19 112/60 (77) 97 11/13/19 03:00 19 118/72 Mechanical Ventilator 40 11/13/19 03:00 69 19 118/72 (87) 97 11/13/19 02:55 72 18 40 11/13/19 02:30 72 18 106/64 (78) 96 11/13/19 02:00 18 115/69 Mechanical Ventilator 40 11/13/19 02:00 70 19 112/65 (81) 98 11/13/19 01:30 69 18 115/69 (84) 98 11/13/19 01:00 19 115/69 Mechanical Ventilator 40 11/13/19 01:00 74 19 116/63 (80) 98 11/13/19 00:30 75 22 139/87 (104) 98 11/13/19 00:00 74 11/13/19 00:00 97.7 71 18 98/60 (73) 97 11/13/19 00:00 18 139/87 Mechanical Ventilator 40 11/13/19 00:00 40 11/12/19 23:00 79 20 118/71 (87) 97 11/12/19 23:00 20 118/71 Mechanical Ventilator 40 11/12/19 22:43 74 18 40 11/12/19 22:30 77 18 127/64 (85) 97 11/12/19 22:00 18 118/83 Mechanical Ventilator 40 11/12/19 22:00 77 18 118/83 (95) 96 11/12/19 21:30 80 18 124/66 (85) 96 11/12/19 21:00 19 124/65 Mechanical Ventilator 40 11/12/19 21:00 76 30 124/65 (84) 96 46 11/12/19 20:30 78 22 149/86 (107) 96 78 11/12/19 20:04 81 145/65 11/12/19 20:00 72 11/12/19 20:00 19 118/50 Mechanical Ventilator 40 11/12/19 20:00 40 11/12/19 20:00 97.9 78 18 118/50 (72) 96 11/12/19 19:30 76 19 145/65 (91) 97 11/12/19 19:02 77 19 40 11/12/19 19:00 76 19 119/66 (83) 98 11/12/19 19:00 20 119/66 Mechanical Ventilator 40 11/12/19 18:30 75 19 117/60 (79) 98 11/12/19 18:30 74 19 121/64 (83) 97 11/12/19 18:00 81 20 121/64 (83) 97 11/12/19 18:00 79 20 137/56 (83) 97 11/12/19 18:00 19 137/56 Mechanical Ventilator 40 11/12/19 17:30 63 19 137/56 (83) 96 11/12/19 17:00 74 20 108/52 (70) 96 11/12/19 17:00 19 108/52 Mechanical Ventilator 40 11/12/19 16:00 98.3 71 20 104/58 (73) 96 11/12/19 16:00 40 11/12/19 16:00 20 104/58 Mechanical Ventilator 40 11/12/19 16:00 Mechanical Ventilator 11/12/19 16:00 69 11/12/19 15:08 74 21 40 11/12/19 15:00 75 20 102/52 (69) 94 11/12/19 15:00 21 121/53 Mechanical Ventilator 40 11/12/19 14:30 74 20 121/53 (75) 96 11/12/19 14:14 21 107/54 Mechanical Ventilator 60.0 40 11/12/19 14:00 21 126/68 Mechanical Ventilator 40 11/12/19 14:00 74 21 126/67 (86) 96 11/12/19 13:30 69 21 107/54 (71) 96 11/12/19 13:00 21 110/67 Mechanical Ventilator 40 11/12/19 13:00 71 20 110/67 (81) 95 11/12/19 12:30 72 21 125/98 (107) 95 11/12/19 12:00 Mechanical Ventilator 11/12/19 12:00 40 11/12/19 12:00 20 100/56 Mechanical Ventilator 40 11/12/19 12:00 70 11/12/19 12:00 72 19 106/55 (72) 95 11/12/19 11:14 76 20 40 11/12/19 11:00 71 20 108/61 (77) 95 11/12/19 11:00 21 108/61 Mechanical Ventilator 40 11/12/19 10:30 98.1 73 21 113/58 (76) 96 11/12/19 10:00 77 21 134/69 (90) 96 11/12/19 10:00 22 134/69 Mechanical Ventilator 40 11/12/19 09:30 69 22 101/51 (68) 94 11/12/19 09:00 60 98/51 11/12/19 09:00 22 98/51 Mechanical Ventilator 40 11/12/19 09:00 69 22 98/51 (67) 95 11/12/19 08:30 71 22 107/58 (74) 95 Height (Feet): 5 Height (Inches): 3.00 Weight (Pounds): 370 HEENT: other - orally intubated Respiratory/Chest: other - on ventilator Cardiovascular: normal rate, other - Femoral central line Abdomen: soft, non tender Extremities: other - edema Neurologic/Psychiatric: other - sedated Laboratory Tests Test 11/13/19 03:46 White Blood Count 13.0 K/UL (4.8-10.8) H Red Blood Count 4.00 M/UL (4.20-5.40) L Hemoglobin 10.7 G/DL (12.0-16.0) L Hematocrit 36.6 % (37.0-47.0) L Mean Corpuscular Volume 92 FL (80-99) Mean Corpuscular Hemoglobin 26.8 PG (27.0-31.0) L Mean Corpuscular Hemoglobin Concent 29.3 G/DL (32.0-36.0) L Red Cell Distribution Width 16.6 % (11.6-14.8) H Platelet Count 197 K/UL (150-450) Mean Platelet Volume 5.9 FL (6.5-10.1) L Neutrophils (%) (Auto) % (45.0-75.0) Lymphocytes (%) (Auto) % (20.0-45.0) Monocytes (%) (Auto) % (1.0-10.0) Eosinophils (%) (Auto) % (0.0-3.0) Basophils (%) (Auto) % (0.0-2.0) Neutrophils % (Manual) Pending Lymphocytes % (Manual) Pending Platelet Estimate Pending Platelet Morphology Pending Sodium Level 148 MMOL/L (136-145) H Potassium Level 5.3 MMOL/L (3.5-5.1) H Chloride Level 116 MMOL/L (98-107) H Carbon Dioxide Level 28 MMOL/L (21-32) Anion Gap 4 mmol/L (5-15) L Blood Urea Nitrogen 41 mg/dL (7-18) H Creatinine 1.2 MG/DL (0.55-1.30) Estimat Glomerular Filtration Rate 47.0 mL/min (>60) Glucose Level 428 MG/DL (74-106) H Lactic Acid Level 2.60 mmol/L (0.4-2.0) H Calcium Level 8.3 MG/DL (8.5-10.1) L Current Medications Medications (Trade) Dose Ordered Sig/Robyn Route PRN Reason Start Time Stop Time Status Last Admin Dose Admin Acetaminophen (Tylenol) 650 mg Q6H PRN NG Temp >100.5 11/12/19 00:15 12/12/19 00:14 11/12/19 00:22 Chlorhexidine Gluconate (Miya-Hex 2%) 1 applic DAILY@2000 TOPIC 11/08/19 21:30 02/06/20 21:29 11/12/19 20:03 Clonidine HCl (Catapres Tab) 0.1 mg Q2H PRN NG For High Blood Pressure 11/11/19 11:00 02/09/20 10:59 Dexamethasone Sodium Phosphate (Decadron 10mg/ ml Inj) 6 mg DAILY IV 11/09/19 09:00 02/06/20 09:14 11/12/19 09:40 Dextrose (Dextrose 50%) 25 ml Q30M PRN IV Hypoglycemia 11/08/19 12:30 02/05/20 02:59 Dextrose (Dextrose 50%) 50 ml Q30M PRN IV Hypoglycemia 11/08/19 12:30 02/05/20 02:59 Dextrose/Sodium Chloride 1,000 ml @ 60 mls/hr [id number] IV 11/09/19 01:15 12/09/19 01:14 11/13/19 02:44 Famotidine (Pepcid I.v.) 20 mg Q12HR IVP 11/08/19 15:30 12/08/19 15:29 11/12/19 20:03 Fentanyl Citrate 250 ml @ 0 mls/hr Q24H IV 11/08/19 12:29 02/06/20 12:28 11/12/19 14:14 Insulin Aspart (NovoLOG) BEFORE MEALS AND HS SUBQ 11/08/19 16:30 02/05/20 06:29 11/13/19 05:17 Lorazepam (Ativan 2mg/ml 1ml) 1 mg Q4H PRN IV For Anxiety 11/08/19 12:32 11/15/19 12:31 Metoprolol Tartrate (Lopressor) 25 mg Q12HR NG 11/12/19 21:00 02/09/20 10:59 11/12/19 20:04 Remdesivir 100 mg/ Sodium Chloride 250 ml @ 250 mls/hr Q24H IV 11/12/19 13:00 11/16/19 13:59 11/12/19 12:37 Jose Hernandez MD Nov 13, 2019 08:20
[2019-11-13] MEDS: dexAMETHasone 10mg/ml Inj IV SCH (08:51)
[2019-11-13] MEDS ORDERED: D5NS 1000ml IV ONE (09:23)
[2019-11-13] MEDS ORDERED: NS 275ml ONE (09:23)
[2019-11-13] MEDS ORDERED: Sterile Water Irrig 1000ml IRRIG ONE (09:23)
--- NOTE | 2019-11-13 10:29 | General Progress Note ---
Assessment/Plan Problem List: (1) Respiratory failure ICD Codes: J96.90 - Respiratory failure, unspecified, unspecified whether with hypoxia or hypercapnia SNOMED: 769363145 (2) 2019 novel coronavirus disease (COVID-19) ICD Codes: U07.1 - COVID-19 SNOMED: 515594154 (3) Multifocal pneumonia ICD Codes: J18.9 - Pneumonia, unspecified organism SNOMED: 088138788 (4) Afib ICD Codes: I48.91 - Unspecified atrial fibrillation SNOMED: 90870803 (5) CHF (congestive heart failure) ICD Codes: I50.9 - Heart failure, unspecified SNOMED: 22306024 (6) Diabetes ICD Codes: E11.9 - Type 2 diabetes mellitus without complications SNOMED: 68469986 (7) Fluid overload ICD Codes: E87.70 - Fluid overload, unspecified SNOMED: 62558543 (8) Epistaxis ICD Codes: R04.0 - Epistaxis SNOMED: 994854655 Status: unchanged Assessment/Plan: fu H&H prn blood transfusion tf dc ivf pending possible dc will fu Subjective ROS Limited/Unobtainable: No Allergies: Coded Allergies: No Known Allergies (Unverified , 11/06/19) Objective Last 24 Hour Vital Signs Date Time Temp Pulse Resp B/P (MAP) Pulse Ox O2 Delivery O2 Flow Rate FiO2 11/13/19 10:00 113 18 178/121 (140) 96 11/13/19 09:48 97 11/13/19 09:30 116 20 155/117 (130) 97 11/13/19 09:00 135 27 194/119 (144) 96 11/13/19 08:48 120 199/111 11/13/19 08:30 134 28 199/111 (140) 97 11/13/19 08:21 104 20 40 40 11/13/19 08:00 40 11/13/19 08:00 97.5 94 18 174/78 (110) 98 11/13/19 08:00 93 11/13/19 07:10 78 18 40 11/13/19 07:00 19 114/67 Mechanical Ventilator 40 11/13/19 07:00 81 18 114/67 (83) 96 11/13/19 06:30 78 19 120/66 (84) 97 7/24/20 06:30 77 19 11/13/19 06:00 78 19 120/77 (91) 96 11/13/19 06:00 20 120/77 Mechanical Ventilator 40 11/13/19 05:30 81 19 127/77 (94) 97 11/13/19 05:00 20 119/66 Mechanical Ventilator 40 11/13/19 05:00 74 20 119/66 (83) 96 11/13/19 04:30 72 19 125/63 (83) 96 11/13/19 04:00 97.9 75 20 111/67 (82) 96 11/13/19 04:00 20 111/67 Mechanical Ventilator 40 11/13/19 04:00 74 11/13/19 04:00 40 11/13/19 03:30 71 19 112/60 (77) 97 11/13/19 03:00 19 118/72 Mechanical Ventilator 40 11/13/19 03:00 69 19 118/72 (87) 97 11/13/19 02:55 72 18 40 11/13/19 02:30 72 18 106/64 (78) 96 11/13/19 02:00 18 115/69 Mechanical Ventilator 40 11/13/19 02:00 70 19 112/65 (81) 98 11/13/19 01:30 69 18 115/69 (84) 98 11/13/19 01:00 19 115/69 Mechanical Ventilator 40 11/13/19 01:00 74 19 116/63 (80) 98 11/13/19 00:30 75 22 139/87 (104) 98 11/13/19 00:00 74 11/13/19 00:00 97.7 71 18 98/60 (73) 97 11/13/19 00:00 18 139/87 Mechanical Ventilator 40 11/13/19 00:00 40 11/12/19 23:00 79 20 118/71 (87) 97 11/12/19 23:00 20 118/71 Mechanical Ventilator 40 11/12/19 22:43 74 18 40 11/12/19 22:30 77 18 127/64 (85) 97 11/12/19 22:00 18 118/83 Mechanical Ventilator 40 11/12/19 22:00 77 18 118/83 (95) 96 11/12/19 21:30 80 18 124/66 (85) 96 11/12/19 21:00 19 124/65 Mechanical Ventilator 40 11/12/19 21:00 76 30 124/65 (84) 96 46 11/12/19 20:30 78 22 149/86 (107) 96 78 11/12/19 20:04 81 145/65 11/12/19 20:00 72 11/12/19 20:00 19 118/50 Mechanical Ventilator 40 11/12/19 20:00 40 11/12/19 20:00 97.9 78 18 118/50 (72) 96 11/12/19 19:30 76 19 145/65 (91) 97 11/12/19 19:02 77 19 40 11/12/19 19:00 76 19 119/66 (83) 98 11/12/19 19:00 20 119/66 Mechanical Ventilator 40 11/12/19 18:30 75 19 117/60 (79) 98 11/12/19 18:30 74 19 121/64 (83) 97 11/12/19 18:00 81 20 121/64 (83) 97 11/12/19 18:00 79 20 137/56 (83) 97 11/12/19 18:00 19 137/56 Mechanical Ventilator 40 11/12/19 17:30 63 19 137/56 (83) 96 11/12/19 17:00 74 20 108/52 (70) 96 11/12/19 17:00 19 108/52 Mechanical Ventilator 40 11/12/19 16:00 98.3 71 20 104/58 (73) 96 11/12/19 16:00 40 11/12/19 16:00 20 104/58 Mechanical Ventilator 40 11/12/19 16:00 Mechanical Ventilator 11/12/19 16:00 69 11/12/19 15:08 74 21 40 11/12/19 15:00 75 20 102/52 (69) 94 11/12/19 15:00 21 121/53 Mechanical Ventilator 40 11/12/19 14:30 74 20 121/53 (75) 96 11/12/19 14:14 21 107/54 Mechanical Ventilator 60.0 40 11/12/19 14:00 21 126/68 Mechanical Ventilator 40 11/12/19 14:00 74 21 126/67 (86) 96 11/12/19 13:30 69 21 107/54 (71) 96 11/12/19 13:00 21 110/67 Mechanical Ventilator 40 11/12/19 13:00 71 20 110/67 (81) 95 11/12/19 12:30 72 21 125/98 (107) 95 11/12/19 12:00 Mechanical Ventilator 11/12/19 12:00 40 11/12/19 12:00 20 100/56 Mechanical Ventilator 40 11/12/19 12:00 70 11/12/19 12:00 72 19 106/55 (72) 95 11/12/19 11:14 76 20 40 11/12/19 11:00 71 20 108/61 (77) 95 11/12/19 11:00 21 108/61 Mechanical Ventilator 40 11/12/19 10:30 98.1 73 21 113/58 (76) 96 Intake and Output 11/12/19 11/13/19 19:00 07:00 Intake Total 1857.5 ml 1349 ml Output Total 585 ml 505 ml Balance 1272.5 ml 844 ml Free Water 120 ml IV Total 1257.5 ml 839 ml Tube Feeding 480 ml 480 ml Other 30 ml Output Urine Total 585 ml 505 ml Laboratory Tests 11/13/19 03:46: White Blood Count 13.0H, Red Blood Count 4.00L, Hemoglobin 10.7L, Hematocrit 36.6L, Mean Corpuscular Volume 92, Mean Corpuscular Hemoglobin 26.8L, Mean Corpuscular Hemoglobin Concent 29.3L, Red Cell Distribution Width 16.6H, Platelet Count 197, Mean Platelet Volume 5.9L, Neutrophils (%) (Auto) , Lymphocytes (%) (Auto) , Monocytes (%) (Auto) , Eosinophils (%) (Auto) , Basophils (%) (Auto) , Differential Total Cells Counted 100, Neutrophils % ( Manual) 90H, Lymphocytes % (Manual) 6L, Monocytes % (Manual) 4, Eosinophils % ( Manual) 0, Basophils % (Manual) 0, Band Neutrophils 0, Platelet Estimate Adequate, Platelet Morphology Normal, Hypochromasia 1+, Anisocytosis 1+, Sodium Level 148H, Potassium Level 5.3H, Chloride Level 116H, Carbon Dioxide Level 28, Anion Gap 4L, Blood Urea Nitrogen 41H, Creatinine 1.2, Estimat Glomerular Filtration Rate 47.0, Glucose Level 428H, Lactic Acid Level 2.60H, Calcium Level 8.3L Height (Feet): 5 Height (Inches): 3.00 Weight (Pounds): 370 General Appearance: lethargic EENT: normal ENT inspection Neck: supple Cardiovascular: normal rate Respiratory/Chest: decreased breath sounds Abdomen: normal bowel sounds, non tender, soft Extremities: non-tender Case Patel MD Nov 13, 2019 10:29
[2019-11-13] MEDS: Remdesivir 100mg 100 MG in NS 230 ML IV SCH (13:00)
--- NOTE | 2019-11-13 14:22 | Surgery Progress Note ---
Surgery Progress Note Subjective Procedure Performed Hemostasis of left nostril hemorrhage emergency Additional Comments stable plan resume anticoagulation will monitor for bleeding Objective Last 24 Hour Vital Signs Date Time Temp Pulse Resp B/P (MAP) Pulse Ox O2 Delivery O2 Flow Rate FiO2 11/13/19 14:00 88 18 123/60 (81) 97 11/13/19 13:00 98 17 105/71 (82) 97 11/13/19 13:00 20 105/71 Mechanical Ventilator 40 11/13/19 12:30 98 18 128/66 (86) 97 11/13/19 12:00 97.7 110 18 143/84 (103) 97 11/13/19 12:00 20 128/66 Mechanical Ventilator 40 11/13/19 12:00 101 11/13/19 12:00 40 11/13/19 11:30 121 24 156/90 (112) 100 11/13/19 11:02 114 18 40 11/13/19 11:00 116 18 138/88 (105) 98 11/13/19 11:00 113 19 98 Mechanical Ventilator 60.0 40 11/13/19 11:00 20 175/98 Mechanical Ventilator 40 11/13/19 10:00 113 18 178/121 (140) 96 11/13/19 09:48 97 11/13/19 09:30 116 20 155/117 (130) 97 11/13/19 09:00 135 27 194/119 (144) 96 11/13/19 08:48 120 199/111 11/13/19 08:30 134 28 199/111 (140) 97 11/13/19 08:21 104 20 40 40 11/13/19 08:00 40 11/13/19 08:00 97.5 94 18 174/78 (110) 98 11/13/19 08:00 93 11/13/19 07:30 20 114/67 Mechanical Ventilator 40 11/13/19 07:10 78 18 40 11/13/19 07:00 19 114/67 Mechanical Ventilator 40 11/13/19 07:00 81 18 114/67 (83) 96 11/13/19 06:30 78 19 120/66 (84) 97 11/13/19 06:30 77 19 11/13/19 06:00 78 19 120/77 (91) 96 11/13/19 06:00 20 120/77 Mechanical Ventilator 40 11/13/19 05:30 81 19 127/77 (94) 97 11/13/19 05:00 20 119/66 Mechanical Ventilator 40 11/13/19 05:00 74 20 119/66 (83) 96 11/13/19 04:30 72 19 125/63 (83) 96 11/13/19 04:00 97.9 75 20 111/67 (82) 96 11/13/19 04:00 20 111/67 Mechanical Ventilator 40 11/13/19 04:00 74 11/13/19 04:00 40 11/13/19 03:30 71 19 112/60 (77) 97 11/13/19 03:00 19 118/72 Mechanical Ventilator 40 11/13/19 03:00 69 19 118/72 (87) 97 11/13/19 02:55 72 18 40 11/13/19 02:30 72 18 106/64 (78) 96 11/13/19 02:00 18 115/69 Mechanical Ventilator 40 11/13/19 02:00 70 19 112/65 (81) 98 11/13/19 01:30 69 18 115/69 (84) 98 11/13/19 01:00 19 115/69 Mechanical Ventilator 40 11/13/19 01:00 74 19 116/63 (80) 98 11/13/19 00:30 75 22 139/87 (104) 98 11/13/19 00:00 74 11/13/19 00:00 97.7 71 18 98/60 (73) 97 11/13/19 00:00 18 139/87 Mechanical Ventilator 40 11/13/19 00:00 40 11/12/19 23:00 79 20 118/71 (87) 97 11/12/19 23:00 20 118/71 Mechanical Ventilator 40 11/12/19 22:43 74 18 40 11/12/19 22:30 77 18 127/64 (85) 97 11/12/19 22:00 18 118/83 Mechanical Ventilator 40 11/12/19 22:00 77 18 118/83 (95) 96 11/12/19 21:30 80 18 124/66 (85) 96 11/12/19 21:00 19 124/65 Mechanical Ventilator 40 11/12/19 21:00 76 30 124/65 (84) 96 46 11/12/19 20:30 78 22 149/86 (107) 96 78 11/12/19 20:04 81 145/65 11/12/19 20:00 72 11/12/19 20:00 19 118/50 Mechanical Ventilator 40 11/12/19 20:00 40 11/12/19 20:00 97.9 78 18 118/50 (72) 96 11/12/19 19:30 76 19 145/65 (91) 97 11/12/19 19:02 77 19 40 11/12/19 19:00 76 19 119/66 (83) 98 11/12/19 19:00 20 119/66 Mechanical Ventilator 40 11/12/19 18:30 75 19 117/60 (79) 98 11/12/19 18:30 74 19 121/64 (83) 97 11/12/19 18:00 81 20 121/64 (83) 97 11/12/19 18:00 79 20 137/56 (83) 97 11/12/19 18:00 19 137/56 Mechanical Ventilator 40 11/12/19 17:30 63 19 137/56 (83) 96 11/12/19 17:00 74 20 108/52 (70) 96 11/12/19 17:00 19 108/52 Mechanical Ventilator 40 11/12/19 16:00 98.3 71 20 104/58 (73) 96 11/12/19 16:00 40 11/12/19 16:00 20 104/58 Mechanical Ventilator 40 11/12/19 16:00 Mechanical Ventilator 11/12/19 16:00 69 11/12/19 15:08 74 21 40 11/12/19 15:00 75 20 102/52 (69) 94 11/12/19 15:00 21 121/53 Mechanical Ventilator 40 11/12/19 14:30 74 20 121/53 (75) 96 I&O Intake and Output 11/12/19 11/13/19 19:00 07:00 Intake Total 1857.5 ml 1349 ml Output Total 585 ml 505 ml Balance 1272.5 ml 844 ml Free Water 120 ml IV Total 1257.5 ml 839 ml Tube Feeding 480 ml 480 ml Other 30 ml Output Urine Total 585 ml 505 ml Dressing: other Wound: other Drains: other Cardiovascular: RSR Respiratory: decreased breath sounds Abdomen: soft, non-tender, present bowel sounds Extremities: no tenderness, no cyanosis Laboratory Tests Test 7/24/20 03:46 White Blood Count 13.0 K/UL (4.8-10.8) H Red Blood Count 4.00 M/UL (4.20-5.40) L Hemoglobin 10.7 G/DL (12.0-16.0) L Hematocrit 36.6 % (37.0-47.0) L Mean Corpuscular Volume 92 FL (80-99) Mean Corpuscular Hemoglobin 26.8 PG (27.0-31.0) L Mean Corpuscular Hemoglobin Concent 29.3 G/DL (32.0-36.0) L Red Cell Distribution Width 16.6 % (11.6-14.8) H Platelet Count 197 K/UL (150-450) Mean Platelet Volume 5.9 FL (6.5-10.1) L Neutrophils (%) (Auto) % (45.0-75.0) Lymphocytes (%) (Auto) % (20.0-45.0) Monocytes (%) (Auto) % (1.0-10.0) Eosinophils (%) (Auto) % (0.0-3.0) Basophils (%) (Auto) % (0.0-2.0) Differential Total Cells Counted 100 Neutrophils % (Manual) 90 % (45-75) H Lymphocytes % (Manual) 6 % (20-45) L Monocytes % (Manual) 4 % (1-10) Eosinophils % (Manual) 0 % (0-3) Basophils % (Manual) 0 % (0-2) Band Neutrophils 0 % (0-8) Platelet Estimate Adequate Platelet Morphology Normal Hypochromasia 1+ Anisocytosis 1+ Sodium Level 148 MMOL/L (136-145) H Potassium Level 5.3 MMOL/L (3.5-5.1) H Chloride Level 116 MMOL/L (98-107) H Carbon Dioxide Level 28 MMOL/L (21-32) Anion Gap 4 mmol/L (5-15) L Blood Urea Nitrogen 41 mg/dL (7-18) H Creatinine 1.2 MG/DL (0.55-1.30) Estimat Glomerular Filtration Rate 47.0 mL/min (>60) Glucose Level 428 MG/DL (74-106) H Lactic Acid Level 2.60 mmol/L (0.4-2.0) H Calcium Level 8.3 MG/DL (8.5-10.1) L Plan Problems: (1) Weak (2) UTI (urinary tract infection) (3) Hypoxia (4) Epistaxis Assessment & Plan: Severe after taxis left nostril Rhino Rocket placed hemostasis noted over the course 24 hours hemoglobin stable Lovenox been stopped. The balloon of both ports of the Rhino Rocket were deflated today. The rocket itself was not removed and will monitor over the course next 24 hours hemostasis. If so will gently remove and plan for local monitoring. Currently wean ventilator as tolerated. Goals of extubation when possible. deflated balloon 11/08 removed trumpet 11/09 will monitor for bleeding wean vent plan extubation discussed with pulm (5) Fluid overload Assessment & Plan: Continue central venous catheter for now. Will anticipate removal once patient stable for extubation. Thank you for allowing me to participate patient's care (6) Diabetes (7) CHF (congestive heart failure) (8) Afib (9) Multifocal pneumonia (10) 2019 novel coronavirus disease (COVID-19) (11) Respiratory failure Ortiz Fleming Nov 13, 2019 14:22
[2019-11-13] MEDS ORDERED: Levemir Flexpen SUBQ SCH ×2 (16:00→21:00)
[2019-11-13] MEDS: fentaNYL 2500mcg/NS 250ml 250 ML IV SCH (16:33)
--- NOTE | 2019-11-13 16:43 | Consultation ---
Consult Note Consult Note I am asked to evaluate the patient at the request of Dr. Gustabo Jones for fluid and electrolyte management Day 7 hospitalization of this unfortunate 54-year old female She is in ICU room B Patient is intubated on mechanical ventilation and being treated for COVID-19 pulmonary infection. Medication reviewed, patient is on dexamethasone and REM that severe. Patient has blood sugar sugar out of control. VITAL SIGNS: Temperature of 97.7, T-max of 98.8, pulse of 103, respiratory rate 23, blood pressure 138/90, O2 sat of 98% on 2 liters of oxygen. Examination deferred due to COVID-19. Discussed with NIKKO Trevizo Medication list reviewed Laboratory data reviewed HEENT: other - orally intubated Respiratory/Chest: other - on ventilator Cardiovascular: normal rate, other - Femoral central line Abdomen: soft, non tender Extremities: other - edema Neurologic/Psychiatric: other - sedated . Assessment/Plan 1. COVID-19 pneumonia. 2. Diabetes and hyperglycemia 3. Hypertension. 4. Hypoxic respiratory failure 5. Morbid obesity with BMI of 65.5 6. Nasal bleeding 7. Lactic acidosis 8. Hyperkalemia Start half-normal saline 75 cc an hour Tight blood sugar control, long-acting insulin as needed Monitor electrolytes and renal parameters Keep the blood pressure in check Per orders I spent an additional 36 minutes on review of medical records including prior hospital records,consult notes, progress notes, procedures ,imaging labs, hemodynamics, and other clinical documentation. Over 35 min Papa Young MD Nov 13, 2019 16:43
[2019-11-13] MEDS: Lactulose 20gm/30ml UDC ORAL SCH (17:06)
[2019-11-13] MEDS: Docusate 100mg cap ORAL SCH (17:07)
[2019-11-13] MEDS ORDERED: Docusate 100mg cap ORAL SCH (18:00)
[2019-11-13] MEDS: Dyna-Hex 2% Top Sol 2oz TOPIC SCH (20:41)
[2019-11-13] MEDS: Miralax 17gm pkt ORAL SCH (20:42)
[2019-11-14] VITALS (47 sets, daily range): BP systolic 95–173; BP diastolic 48–92
[2019-11-14 05:06] LABS: HEMOGLOBIN 10.6 G/DL (12.0-16.0); MEAN CORPUSCULAR VOLUME 91 FL (80-99); PLATELET COUNT 207 K/UL (150-450); RED BLOOD COUNT 3.95 M/UL (4.20-5.40); RED CELL DISTRIBUTION WIDTH 17.1 % (11.6-14.8); WHITE BLOOD COUNT 15.8 K/UL (4.8-10.8)
[2019-11-14 05:14] LABS: CREATINE KINASE 36 U/L (26-308); GAMMA GLUTAMYL TRANSPEPTIDASE 238 U/L (5-85); LACTATE DEHYDROGENASE 373 U/L (81-234)
[2019-11-14 05:24] LABS: ALANINE AMINOTRANSFERASE 40 U/L (12-78); ALBUMIN 2.2 G/DL (3.4-5.0); ALBUMIN/GLOBULIN RATIO 0.5 (1.0-2.7); ALKALINE PHOSPHATASE 208 U/L (46-116); ANION GAP 4 mmol/L (5-15); ASPARTATE AMINO TRANSFERASE 45 U/L (15-37); BILIRUBIN,TOTAL 0.9 MG/DL (0.2-1.0); BLOOD UREA NITROGEN 40 mg/dL (7-18); CALCIUM 8.5 MG/DL (8.5-10.1); CARBON DIOXIDE 27 MMOL/L (21-32); CHLORIDE 115 MMOL/L (98-107); CREATININE 1.2 MG/DL (0.55-1.30); POTASSIUM 5.4 MMOL/L (3.5-5.1); SODIUM 146 MMOL/L (136-145)
[2019-11-14 05:25] LABS: % IRON SATURATION 8 % (15-50); IRON 29 ug/dL (50-175); TOTAL IRON BINDING CAPACITY 346 ug/dL (250-450)
[2019-11-14 05:36] LABS: PHOSPHORUS 3.2 MG/DL (2.5-4.9)
[2019-11-14] MEDS: NovoLOG Insulin Flexpen SUBQ SCH ×4 (05:54→21:58)
[2019-11-14] MEDS ORDERED: Sodium Polystyrene Sulfonate 15gm Powder GT SCH (08:15)
[2019-11-14] MEDS: dexAMETHasone 10mg/ml Inj IV SCH (08:19)
[2019-11-14] MEDS: Lactulose 20gm/30ml UDC ORAL SCH ×3 (08:19→18:09)
[2019-11-14] MEDS: Eliquis 5mg tablet NGT SCH ×2 (08:20→18:09)
[2019-11-14] MEDS: Docusate 100mg cap ORAL SCH (08:20)
[2019-11-14] MEDS ORDERED: NS 275ml ONE ×2 (08:44→08:45)
[2019-11-14] MEDS ORDERED: 1/2 NS 1000ml IV ONE ×2 (08:44→08:45)
[2019-11-14] MEDS ORDERED: Sterile Water Irrig 1000ml IRRIG ONE (08:44)
[2019-11-14] MEDS: Levemir Flexpen SUBQ SCH ×2 (08:45→21:57)
[2019-11-14] MEDS: Docusate 100mg/10ml Liq NG SCH ×3 (08:46→18:09)
--- NOTE | 2019-11-14 09:14 | General Progress Note ---
Assessment/Plan Problem List: (1) Respiratory failure ICD Codes: J96.90 - Respiratory failure, unspecified, unspecified whether with hypoxia or hypercapnia SNOMED: 088501668 (2) 2019 novel coronavirus disease (COVID-19) ICD Codes: U07.1 - COVID-19 SNOMED: 996508231 (3) Multifocal pneumonia ICD Codes: J18.9 - Pneumonia, unspecified organism SNOMED: 432552414 (4) Afib ICD Codes: I48.91 - Unspecified atrial fibrillation SNOMED: 15919789 (5) CHF (congestive heart failure) ICD Codes: I50.9 - Heart failure, unspecified SNOMED: 07396174 (6) Diabetes ICD Codes: E11.9 - Type 2 diabetes mellitus without complications SNOMED: 41437703 (7) Fluid overload ICD Codes: E87.70 - Fluid overload, unspecified SNOMED: 22384331 (8) Epistaxis ICD Codes: R04.0 - Epistaxis SNOMED: 347289558 Status: unchanged Assessment/Plan: fu H&H prn blood transfusion NGTF no residuals iv fluid per nephrology will fu Subjective ROS Limited/Unobtainable: No Allergies: Coded Allergies: No Known Allergies (Unverified , 11/06/19) Objective Last 24 Hour Vital Signs Date Time Temp Pulse Resp B/P (MAP) Pulse Ox O2 Delivery O2 Flow Rate FiO2 11/14/19 08:20 73 173/84 11/14/19 08:05 75 24 40 11/14/19 08:00 99 11/14/19 08:00 40 11/14/19 08:00 92 52 40 11/14/19 07:55 40 11/14/19 07:30 71 19 40 11/14/19 07:30 71 22 101/64 (76) 98 11/14/19 07:30 20 101/64 Mechanical Ventilator 40 11/14/19 07:00 20 95/58 Mechanical Ventilator 40 11/14/19 07:00 69 20 95/58 (70) 97 11/14/19 06:30 66 19 11/14/19 06:30 68 19 103/55 (71) 97 11/14/19 06:00 68 20 97/55 (69) 98 11/14/19 06:00 20 95/55 40 11/14/19 05:30 68 20 102/53 (69) 98 11/14/19 05:04 71 22 124/65 (84) 98 11/14/19 05:00 14 121/96 Mechanical Ventilator 40 11/14/19 04:00 97.6 80 21 115/51 (72) 97 11/14/19 04:00 40 11/14/19 04:00 74 11/14/19 04:00 12 107/65 Mechanical Ventilator 40 11/14/19 04:00 Mechanical Ventilator 11/14/19 03:30 87 24 139/84 (102) 98 11/14/19 03:30 76 20 40 11/14/19 03:00 75 19 105/48 (67) 98 11/14/19 03:00 21 139/84 Mechanical Ventilator 40 11/14/19 02:30 83 20 114/60 (78) 98 11/14/19 02:00 19 114/60 Mechanical Ventilator 40 11/14/19 02:00 85 19 118/58 (78) 97 11/14/19 01:30 86 19 123/78 (93) 98 11/14/19 01:00 88 22 126/70 (88) 98 11/14/19 01:00 21 123/78 Mechanical Ventilator 40 11/14/19 00:30 86 19 150/92 (111) 97 11/14/19 00:00 82 11/14/19 00:00 Mechanical Ventilator 11/14/19 00:00 21 150/92 Mechanical Ventilator 40 11/14/19 00:00 40 11/14/19 00:00 98.4 91 18 137/78 (97) 97 11/13/19 23:30 90 22 137/64 (88) 97 11/13/19 23:30 83 20 40 11/13/19 23:00 22 137/64 Mechanical Ventilator 40 11/13/19 23:00 91 27 133/71 (91) 97 11/13/19 22:30 89 22 135/75 (95) 97 11/13/19 22:00 18 122/73 Mechanical Ventilator 40 11/13/19 22:00 90 18 122/73 (89) 97 11/13/19 21:30 93 16 140/65 (90) 97 11/13/19 21:00 92 18 128/74 (92) 97 11/13/19 21:00 17 140/65 Mechanical Ventilator 40 11/13/19 20:42 88 125/72 11/13/19 20:30 93 18 125/75 (92) 97 11/13/19 20:00 99.7 88 17 124/64 (84) 97 11/13/19 20:00 Mechanical Ventilator 11/13/19 20:00 40 11/13/19 20:00 18 125/75 Mechanical Ventilator 40 11/13/19 20:00 94 11/13/19 19:30 92 19 132/72 (92) 97 11/13/19 19:30 88 19 40 11/13/19 19:00 18 122/72 Mechanical Ventilator 40 11/13/19 19:00 94 18 121/83 (96) 97 11/13/19 18:00 89 18 117/69 (85) 97 11/13/19 18:00 18 117/69 Mechanical Ventilator 40 11/13/19 17:30 93 18 142/75 (97) 97 11/13/19 17:00 95 18 149/68 (95) 97 11/13/19 17:00 17 123/71 Mechanical Ventilator 40 11/13/19 16:33 18 145/71 Mechanical Ventilator 60.0 40 11/13/19 16:00 40 11/13/19 16:00 Mechanical Ventilator 11/13/19 16:00 18 145/71 Mechanical Ventilator 40 11/13/19 16:00 89 11/13/19 16:00 98.8 97 18 145/71 (95) 97 11/13/19 15:30 92 18 130/71 (90) 97 11/13/19 15:15 96 19 40 11/13/19 15:00 91 17 121/73 (89) 96 11/13/19 15:00 18 130/71 Mechanical Ventilator 40 11/13/19 14:00 88 18 123/60 (81) 97 11/13/19 14:00 18 123/60 Mechanical Ventilator 40 11/13/19 13:00 98 17 105/71 (82) 97 11/13/19 13:00 20 105/71 Mechanical Ventilator 40 11/13/19 12:30 98 18 128/66 (86) 97 11/13/19 12:00 97.7 110 18 143/84 (103) 97 11/13/19 12:00 20 128/66 Mechanical Ventilator 40 11/13/19 12:00 Mechanical Ventilator 11/13/19 12:00 101 7/24/20 12:00 40 11/13/19 11:30 121 24 156/90 (112) 100 11/13/19 11:02 114 18 40 11/13/19 11:00 116 18 138/88 (105) 98 11/13/19 11:00 113 19 98 Mechanical Ventilator 60.0 40 11/13/19 11:00 20 175/98 Mechanical Ventilator 40 11/13/19 10:00 113 18 178/121 (140) 96 11/13/19 09:48 97 11/13/19 09:30 116 20 155/117 (130) 97 Intake and Output 11/13/19 11/14/19 19:00 07:00 Intake Total 1174.5 ml 1784 ml Output Total 590 ml 670 ml Balance 584.5 ml 1114 ml Free Water 100 ml 200 ml IV Total 754.5 ml 1044 ml Tube Feeding 320 ml 480 ml Other 60 ml Output Urine Total 590 ml 670 ml Laboratory Tests 11/14/19 03:30: D-Dimer 8.74H 11/14/19 04:00: White Blood Count 15.8H, Red Blood Count 3.95L, Hemoglobin 10.6L, Hematocrit 36.0L, Mean Corpuscular Volume 91, Mean Corpuscular Hemoglobin 26.8L, Mean Corpuscular Hemoglobin Concent 29.4L, Red Cell Distribution Width 17.1H, Platelet Count 207, Mean Platelet Volume 6.7, Neutrophils (%) (Auto) , Lymphocytes (%) (Auto) , Monocytes (%) (Auto) , Eosinophils (%) (Auto) , Basophils (%) (Auto) , Neutrophils % (Manual) [Pending], Lymphocytes % (Manual) [Pending], Platelet Estimate [Pending], Platelet Morphology [Pending], Sodium Level 146H, Potassium Level 5.4H, Chloride Level 115H, Carbon Dioxide Level 27, Anion Gap 4L, Blood Urea Nitrogen 40H, Creatinine 1.2, Estimat Glomerular Filtration Rate 47.0, Glucose Level 357H, Uric Acid 6.0, Calcium Level 8.5, Phosphorus Level 3.2, Magnesium Level 2.4, Iron Level 29L, Total Iron Binding Capacity 346, Percent Iron Saturation 8L, Unsaturated Iron Binding 317, Ferritin 51, Total Bilirubin 0.9, Direct Bilirubin 0.5H, Gamma Glutamyl Transpeptidase 238H, Aspartate Amino Transf (AST/SGOT) 45H, Alanine Aminotransferase (ALT/SGPT) 40, Alkaline Phosphatase 208H, Lactate Dehydrogenase 373H, Total Creatine Kinase 36, C-Reactive Protein, Quantitative 1.7H, Pro-B-Type Natriuretic Peptide 5577H, Total Protein 6.5, Albumin 2.2L, Globulin 4.3, Albumin/Globulin Ratio 0.5L, Vitamin B12 Level 1372H, Folate 7.9L Height (Feet): 5 Height (Inches): 3.00 Weight (Pounds): 344 General Appearance: alert EENT: normal ENT inspection Neck: supple Cardiovascular: normal rate Respiratory/Chest: lungs clear Abdomen: soft Extremities: non-tender Case Patel MD Nov 14, 2019 09:14
--- NOTE | 2019-11-14 09:44 | Nephrology Progress Note ---
Assessment/Plan Problem List: (1) Electrolyte imbalance (2) Diabetes (3) 2019 novel coronavirus disease (COVID-19) (4) Respiratory failure Assessment 1. COVID-19 pneumonia. 2. Diabetes and hyperglycemia 3. Hypertension. 4. Hypoxic respiratory failure 5. Morbid obesity with BMI of 65.5 6. Nasal bleeding 7. Lactic acidosis 8. Hyperkalemia Plan Discussed with NIKKO Branch Change IV to D5W 75 cc an hour Levemir 15 units subcu every 12 hours Kayexalate for high potassium Monitor electrolytes and renal parameters Tight blood sugar control, long-acting insulin as needed Keep the blood pressure in check Per orders Subjective ROS Limited/Unobtainable: Yes Objective Objective Last 24 Hour Vital Signs Date Time Temp Pulse Resp B/P (MAP) Pulse Ox O2 Delivery O2 Flow Rate FiO2 11/14/19 09:00 69 20 114/57 (76) 97 11/14/19 08:30 74 21 127/72 (90) 97 11/14/19 08:20 73 173/84 11/14/19 08:05 75 24 40 11/14/19 08:00 98.2 87 21 173/84 (113) 100 11/14/19 08:00 99 11/14/19 08:00 40 11/14/19 08:00 92 52 40 11/14/19 07:55 40 11/14/19 07:30 71 19 40 11/14/19 07:30 71 22 101/64 (76) 98 11/14/19 07:30 20 101/64 Mechanical Ventilator 40 11/14/19 07:00 20 95/58 Mechanical Ventilator 40 11/14/19 07:00 69 20 95/58 (70) 97 11/14/19 06:30 66 19 11/14/19 06:30 68 19 103/55 (71) 97 11/14/19 06:00 68 20 97/55 (69) 98 11/14/19 06:00 20 95/55 40 11/14/19 05:30 68 20 102/53 (69) 98 11/14/19 05:04 71 22 124/65 (84) 98 11/14/19 05:00 14 121/96 Mechanical Ventilator 40 11/14/19 04:00 97.6 80 21 115/51 (72) 97 11/14/19 04:00 40 11/14/19 04:00 74 7/25/20 04:00 12 107/65 Mechanical Ventilator 40 11/14/19 04:00 Mechanical Ventilator 11/14/19 03:30 87 24 139/84 (102) 98 11/14/19 03:30 76 20 40 11/14/19 03:00 75 19 105/48 (67) 98 11/14/19 03:00 21 139/84 Mechanical Ventilator 40 11/14/19 02:30 83 20 114/60 (78) 98 11/14/19 02:00 19 114/60 Mechanical Ventilator 40 11/14/19 02:00 85 19 118/58 (78) 97 11/14/19 01:30 86 19 123/78 (93) 98 11/14/19 01:00 88 22 126/70 (88) 98 11/14/19 01:00 21 123/78 Mechanical Ventilator 40 11/14/19 00:30 86 19 150/92 (111) 97 11/14/19 00:00 82 11/14/19 00:00 Mechanical Ventilator 11/14/19 00:00 21 150/92 Mechanical Ventilator 40 11/14/19 00:00 40 11/14/19 00:00 98.4 91 18 137/78 (97) 97 11/13/19 23:30 90 22 137/64 (88) 97 11/13/19 23:30 83 20 40 11/13/19 23:00 22 137/64 Mechanical Ventilator 40 11/13/19 23:00 91 27 133/71 (91) 97 11/13/19 22:30 89 22 135/75 (95) 97 11/13/19 22:00 18 122/73 Mechanical Ventilator 40 11/13/19 22:00 90 18 122/73 (89) 97 11/13/19 21:30 93 16 140/65 (90) 97 11/13/19 21:00 92 18 128/74 (92) 97 11/13/19 21:00 17 140/65 Mechanical Ventilator 40 11/13/19 20:42 88 125/72 11/13/19 20:30 93 18 125/75 (92) 97 11/13/19 20:00 99.7 88 17 124/64 (84) 97 11/13/19 20:00 Mechanical Ventilator 11/13/19 20:00 40 11/13/19 20:00 18 125/75 Mechanical Ventilator 40 11/13/19 20:00 94 11/13/19 19:30 92 19 132/72 (92) 97 11/13/19 19:30 88 19 40 11/13/19 19:00 18 122/72 Mechanical Ventilator 40 11/13/19 19:00 94 18 121/83 (96) 97 11/13/19 18:00 89 18 117/69 (85) 97 11/13/19 18:00 18 117/69 Mechanical Ventilator 40 11/13/19 17:30 93 18 142/75 (97) 97 11/13/19 17:00 95 18 149/68 (95) 97 11/13/19 17:00 17 123/71 Mechanical Ventilator 40 11/13/19 16:33 18 145/71 Mechanical Ventilator 60.0 40 11/13/19 16:00 40 11/13/19 16:00 Mechanical Ventilator 11/13/19 16:00 18 145/71 Mechanical Ventilator 40 11/13/19 16:00 89 11/13/19 16:00 98.8 97 18 145/71 (95) 97 11/13/19 15:30 92 18 130/71 (90) 97 11/13/19 15:15 96 19 40 11/13/19 15:00 91 17 121/73 (89) 96 11/13/19 15:00 18 130/71 Mechanical Ventilator 40 11/13/19 14:00 88 18 123/60 (81) 97 11/13/19 14:00 18 123/60 Mechanical Ventilator 40 11/13/19 13:00 98 17 105/71 (82) 97 11/13/19 13:00 20 105/71 Mechanical Ventilator 40 11/13/19 12:30 98 18 128/66 (86) 97 11/13/19 12:00 97.7 110 18 143/84 (103) 97 11/13/19 12:00 20 128/66 Mechanical Ventilator 40 11/13/19 12:00 Mechanical Ventilator 11/13/19 12:00 101 11/13/19 12:00 40 11/13/19 11:30 121 24 156/90 (112) 100 11/13/19 11:02 114 18 40 11/13/19 11:00 116 18 138/88 (105) 98 11/13/19 11:00 113 19 98 Mechanical Ventilator 60.0 40 11/13/19 11:00 20 175/98 Mechanical Ventilator 40 11/13/19 10:00 113 18 178/121 (140) 96 11/13/19 09:48 97 Intake and Output 11/13/19 11/14/19 19:00 07:00 Intake Total 1174.5 ml 1784 ml Output Total 590 ml 670 ml Balance 584.5 ml 1114 ml Free Water 100 ml 200 ml IV Total 754.5 ml 1044 ml Tube Feeding 320 ml 480 ml Other 60 ml Output Urine Total 590 ml 670 ml Current Medications Medications (Trade) Dose Ordered Sig/Robyn Route PRN Reason Start Time Stop Time Status Last Admin Dose Admin Acetaminophen (Tylenol) 650 mg Q6H PRN NG Temp >100.5 11/12/19 00:15 12/12/19 00:14 11/12/19 00:22 Apixaban (Eliquis) 5 mg BID NGT 11/14/19 09:00 02/12/20 08:59 11/14/19 08:20 Chlorhexidine Gluconate (Miya-Hex 2%) 1 applic DAILY@2000 TOPIC 11/08/19 21:30 02/06/20 21:29 11/13/19 20:41 Clonidine HCl (Catapres Tab) 0.1 mg Q4H PRN NG For High Blood Pressure 11/13/19 17:00 02/09/20 10:59 Dexamethasone Sodium Phosphate (Decadron 10mg/ ml Inj) 6 mg DAILY IV 11/09/19 09:00 02/06/20 09:14 11/14/19 08:19 Dextrose 1,000 ml @ 75 mls/hr [id number] IV 11/14/19 08:15 12/14/19 08:14 11/14/19 08:20 Dextrose (Dextrose 50%) 25 ml Q30M PRN IV Hypoglycemia 11/08/19 12:30 02/05/20 02:59 Dextrose (Dextrose 50%) 50 ml Q30M PRN IV Hypoglycemia 11/08/19 12:30 02/05/20 02:59 Docusate Sodium (Colace) 100 mg THREE TIMES A DAY NG 11/14/19 09:00 12/14/19 08:59 11/14/19 12:48 Famotidine (Pepcid I.v.) 20 mg Q12HR IVP 11/08/19 15:30 12/08/19 15:29 11/14/19 08:19 Fentanyl Citrate 250 ml @ 0 mls/hr Q24H IV 11/08/19 12:29 02/06/20 12:28 11/13/19 16:33 Folic Acid (Folate) 2 mg DAILY GT 11/15/19 09:00 12/15/19 08:59 UNV Insulin Aspart (NovoLOG) BEFORE MEALS AND HS SUBQ 11/13/19 21:00 02/11/20 20:59 11/14/19 13:06 Insulin Detemir (Levemir) 15 units Q12HR SUBQ 11/14/19 09:00 02/11/20 20:59 11/14/19 08:45 Lactulose (Cephulac) 20 gm THREE TIMES A DAY ORAL 11/13/19 18:00 12/13/19 17:59 11/14/19 12:48 Lorazepam (Ativan 2mg/ml 1ml) 1 mg Q4H PRN IV For Anxiety 11/14/19 10:00 11/21/19 09:59 Metoprolol Tartrate (Lopressor) 25 mg Q12HR NG 11/12/19 21:00 02/09/20 10:59 11/14/19 08:20 Polyethylene Glycol (Miralax) 17 gm BEDTIME ORAL 11/13/19 21:00 12/13/19 20:59 11/13/19 20:42 Remdesivir 100 mg/ Sodium Chloride 250 ml @ 250 mls/hr Q24H IV 11/12/19 13:00 11/16/19 13:59 11/14/19 12:48 Laboratory Tests 11/14/19 03:30: D-Dimer 8.74H 11/14/19 04:00: White Blood Count 15.8H, Red Blood Count 3.95L, Hemoglobin 10.6L, Hematocrit 36.0L, Mean Corpuscular Volume 91, Mean Corpuscular Hemoglobin 26.8L, Mean Corpuscular Hemoglobin Concent 29.4L, Red Cell Distribution Width 17.1H, Platelet Count 207, Mean Platelet Volume 6.7, Neutrophils (%) (Auto) , Lymphocytes (%) (Auto) , Monocytes (%) (Auto) , Eosinophils (%) (Auto) , Basophils (%) (Auto) , Differential Total Cells Counted 100, Neutrophils % ( Manual) 90H, Lymphocytes % (Manual) 4L, Monocytes % (Manual) 6, Eosinophils % ( Manual) 0, Basophils % (Manual) 0, Band Neutrophils 0, Platelet Estimate Adequate, Platelet Morphology Normal, Polychromasia 1+, Hypochromasia 1+, Anisocytosis 1+, Sodium Level 146H, Potassium Level 5.4H, Chloride Level 115H, Carbon Dioxide Level 27, Anion Gap 4L, Blood Urea Nitrogen 40H, Creatinine 1.2, Estimat Glomerular Filtration Rate 47.0, Glucose Level 357H, Uric Acid 6.0, Calcium Level 8.5, Phosphorus Level 3.2, Magnesium Level 2.4, Iron Level 29L, Total Iron Binding Capacity 346, Percent Iron Saturation 8L, Unsaturated Iron Binding 317, Ferritin 51, Total Bilirubin 0.9, Direct Bilirubin 0.5H, Gamma Glutamyl Transpeptidase 238H, Aspartate Amino Transf (AST/SGOT) 45H, Alanine Aminotransferase (ALT/SGPT) 40, Alkaline Phosphatase 208H, Lactate Dehydrogenase 373H, Total Creatine Kinase 36, C-Reactive Protein, Quantitative 1.7H, Pro-B-Type Natriuretic Peptide 5577H, Total Protein 6.5, Albumin 2.2L, Globulin 4.3, Albumin/Globulin Ratio 0.5L, Vitamin B12 Level 1372H, Folate 7.9L Height (Feet): 5 Height (Inches): 3.00 Weight (Pounds): 344 General Appearance: no apparent distress EENT: other - Intubated on mechanical ventilation Cardiovascular: tachycardia Respiratory/Chest: decreased breath sounds Abdomen: distended Papa Young MD Nov 14, 2019 09:44
[2019-11-14] MEDS ORDERED: LORazepam Inj 2mg/ml 1ml IV PRN (10:00)
--- NOTE | 2019-11-14 10:36 | Infectious Diseases Prog Note ---
Assessment/Plan Assessment/Plan antibiotics : remdesivir, dexamethasone A 1. COVID 19 pneumonia on 40 percent Fi O2, PEEP 5, saturation 97 percent 2. respiratory failure 3. leucocytosis likely secondary to steroids 4. diabetes mellitus 5. hypertension P 1. continue remdesivir day 8 2. continue dexamethasone day 9 3. will follow up cultures 4. continue isolation Subjective ROS Limited/Unobtainable: Yes Allergies: Coded Allergies: No Known Allergies (Unverified , 11/06/19) Objective Last 24 Hour Vital Signs Date Time Temp Pulse Resp B/P (MAP) Pulse Ox O2 Delivery O2 Flow Rate FiO2 11/14/19 09:00 20 114/57 Mechanical Ventilator 40 11/14/19 09:00 69 20 114/57 (76) 97 11/14/19 08:30 74 21 127/72 (90) 97 11/14/19 08:20 73 173/84 11/14/19 08:05 75 24 40 11/14/19 08:00 98.2 87 21 173/84 (113) 100 11/14/19 08:00 99 11/14/19 08:00 40 11/14/19 08:00 40 173/84 Mechanical Ventilator 40 11/14/19 08:00 92 52 40 11/14/19 07:55 40 11/14/19 07:30 71 19 40 11/14/19 07:30 71 22 101/64 (76) 98 11/14/19 07:30 20 101/64 Mechanical Ventilator 40 11/14/19 07:00 20 95/58 Mechanical Ventilator 40 11/14/19 07:00 69 20 95/58 (70) 97 11/14/19 06:30 66 19 11/14/19 06:30 68 19 103/55 (71) 97 11/14/19 06:00 68 20 97/55 (69) 98 11/14/19 06:00 20 95/55 40 11/14/19 05:30 68 20 102/53 (69) 98 11/14/19 05:04 71 22 124/65 (84) 98 11/14/19 05:00 14 121/96 Mechanical Ventilator 40 11/14/19 04:00 97.6 80 21 115/51 (72) 97 11/14/19 04:00 40 11/14/19 04:00 74 11/14/19 04:00 12 107/65 Mechanical Ventilator 40 11/14/19 04:00 Mechanical Ventilator 11/14/19 03:30 87 24 139/84 (102) 98 11/14/19 03:30 76 20 40 11/14/19 03:00 75 19 105/48 (67) 98 11/14/19 03:00 21 139/84 Mechanical Ventilator 40 11/14/19 02:30 83 20 114/60 (78) 98 11/14/19 02:00 19 114/60 Mechanical Ventilator 40 11/14/19 02:00 85 19 118/58 (78) 97 11/14/19 01:30 86 19 123/78 (93) 98 11/14/19 01:00 88 22 126/70 (88) 98 11/14/19 01:00 21 123/78 Mechanical Ventilator 40 11/14/19 00:30 86 19 150/92 (111) 97 11/14/19 00:00 82 11/14/19 00:00 Mechanical Ventilator 11/14/19 00:00 21 150/92 Mechanical Ventilator 40 11/14/19 00:00 40 11/14/19 00:00 98.4 91 18 137/78 (97) 97 11/13/19 23:30 90 22 137/64 (88) 97 11/13/19 23:30 83 20 40 11/13/19 23:00 22 137/64 Mechanical Ventilator 40 11/13/19 23:00 91 27 133/71 (91) 97 11/13/19 22:30 89 22 135/75 (95) 97 11/13/19 22:00 18 122/73 Mechanical Ventilator 40 11/13/19 22:00 90 18 122/73 (89) 97 11/13/19 21:30 93 16 140/65 (90) 97 11/13/19 21:00 92 18 128/74 (92) 97 11/13/19 21:00 17 140/65 Mechanical Ventilator 40 11/13/19 20:42 88 125/72 11/13/19 20:30 93 18 125/75 (92) 97 11/13/19 20:00 99.7 88 17 124/64 (84) 97 11/13/19 20:00 Mechanical Ventilator 11/13/19 20:00 40 11/13/19 20:00 18 125/75 Mechanical Ventilator 40 11/13/19 20:00 94 7/24/20 19:30 92 19 132/72 (92) 97 11/13/19 19:30 88 19 40 11/13/19 19:00 18 122/72 Mechanical Ventilator 40 11/13/19 19:00 94 18 121/83 (96) 97 11/13/19 18:00 89 18 117/69 (85) 97 11/13/19 18:00 18 117/69 Mechanical Ventilator 40 11/13/19 17:30 93 18 142/75 (97) 97 11/13/19 17:00 95 18 149/68 (95) 97 11/13/19 17:00 17 123/71 Mechanical Ventilator 40 11/13/19 16:33 18 145/71 Mechanical Ventilator 60.0 40 11/13/19 16:00 40 11/13/19 16:00 Mechanical Ventilator 11/13/19 16:00 18 145/71 Mechanical Ventilator 40 11/13/19 16:00 89 11/13/19 16:00 98.8 97 18 145/71 (95) 97 11/13/19 15:30 92 18 130/71 (90) 97 11/13/19 15:15 96 19 40 11/13/19 15:00 91 17 121/73 (89) 96 11/13/19 15:00 18 130/71 Mechanical Ventilator 40 11/13/19 14:00 88 18 123/60 (81) 97 11/13/19 14:00 18 123/60 Mechanical Ventilator 40 11/13/19 13:00 98 17 105/71 (82) 97 11/13/19 13:00 20 105/71 Mechanical Ventilator 40 11/13/19 12:30 98 18 128/66 (86) 97 11/13/19 12:00 97.7 110 18 143/84 (103) 97 11/13/19 12:00 20 128/66 Mechanical Ventilator 40 11/13/19 12:00 Mechanical Ventilator 11/13/19 12:00 101 11/13/19 12:00 40 11/13/19 11:30 121 24 156/90 (112) 100 11/13/19 11:02 114 18 40 11/13/19 11:00 116 18 138/88 (105) 98 11/13/19 11:00 113 19 98 Mechanical Ventilator 60.0 40 7/24/20 11:00 20 175/98 Mechanical Ventilator 40 Height (Feet): 5 Height (Inches): 3.00 Weight (Pounds): 344 HEENT: other - intubated Laboratory Tests Test 11/14/19 03:30 11/14/19 04:00 D-Dimer 8.74 mg/L FEU (0.00-0.49) H White Blood Count 15.8 K/UL (4.8-10.8) H Red Blood Count 3.95 M/UL (4.20-5.40) L Hemoglobin 10.6 G/DL (12.0-16.0) L Hematocrit 36.0 % (37.0-47.0) L Mean Corpuscular Volume 91 FL (80-99) Mean Corpuscular Hemoglobin 26.8 PG (27.0-31.0) L Mean Corpuscular Hemoglobin Concent 29.4 G/DL (32.0-36.0) L Red Cell Distribution Width 17.1 % (11.6-14.8) H Platelet Count 207 K/UL (150-450) Mean Platelet Volume 6.7 FL (6.5-10.1) Neutrophils (%) (Auto) % (45.0-75.0) Lymphocytes (%) (Auto) % (20.0-45.0) Monocytes (%) (Auto) % (1.0-10.0) Eosinophils (%) (Auto) % (0.0-3.0) Basophils (%) (Auto) % (0.0-2.0) Differential Total Cells Counted 100 Neutrophils % (Manual) 90 % (45-75) H Lymphocytes % (Manual) 4 % (20-45) L Monocytes % (Manual) 6 % (1-10) Eosinophils % (Manual) 0 % (0-3) Basophils % (Manual) 0 % (0-2) Band Neutrophils 0 % (0-8) Platelet Estimate Adequate Platelet Morphology Normal Polychromasia 1+ Hypochromasia 1+ Anisocytosis 1+ Sodium Level 146 MMOL/L (136-145) H Potassium Level 5.4 MMOL/L (3.5-5.1) H Chloride Level 115 MMOL/L (98-107) H Carbon Dioxide Level 27 MMOL/L (21-32) Anion Gap 4 mmol/L (5-15) L Blood Urea Nitrogen 40 mg/dL (7-18) H Creatinine 1.2 MG/DL (0.55-1.30) Estimat Glomerular Filtration Rate 47.0 mL/min (>60) Glucose Level 357 MG/DL (74-106) H Uric Acid 6.0 MG/DL (2.6-7.2) Calcium Level 8.5 MG/DL (8.5-10.1) Phosphorus Level 3.2 MG/DL (2.5-4.9) Magnesium Level 2.4 MG/DL (1.8-2.4) Iron Level 29 ug/dL (50-175) L Total Iron Binding Capacity 346 ug/dL (250-450) Percent Iron Saturation 8 % (15-50) L Unsaturated Iron Binding 317 ug/dL (112-346) Ferritin 51 NG/ML (8-388) Total Bilirubin 0.9 MG/DL (0.2-1.0) Direct Bilirubin 0.5 MG/DL (0.0-0.3) H Gamma Glutamyl Transpeptidase 238 U/L (5-85) H Aspartate Amino Transf (AST/SGOT) 45 U/L (15-37) H Alanine Aminotransferase (ALT/SGPT) 40 U/L (12-78) Alkaline Phosphatase 208 U/L (46-116) H Lactate Dehydrogenase 373 U/L (81-234) H Total Creatine Kinase 36 U/L (26-308) C-Reactive Protein, Quantitative 1.7 mg/dL (0.00-0.90) H Pro-B-Type Natriuretic Peptide 5577 pg/mL (0-125) H Total Protein 6.5 G/DL (6.4-8.2) Albumin 2.2 G/DL (3.4-5.0) L Globulin 4.3 g/dL Albumin/Globulin Ratio 0.5 (1.0-2.7) L Vitamin B12 Level 1372 PG/ML (193-986) H Folate 7.9 NG/ML (8.6-58.9) L Current Medications Medications (Trade) Dose Ordered Sig/Robyn Route PRN Reason Start Time Stop Time Status Last Admin Dose Admin Acetaminophen (Tylenol) 650 mg Q6H PRN NG Temp >100.5 11/12/19 00:15 12/12/19 00:14 11/12/19 00:22 Apixaban (Eliquis) 5 mg BID NGT 11/14/19 09:00 02/12/20 08:59 11/14/19 08:20 Chlorhexidine Gluconate (Miya-Hex 2%) 1 applic DAILY@2000 TOPIC 11/08/19 21:30 02/06/20 21:29 11/13/19 20:41 Clonidine HCl (Catapres Tab) 0.1 mg Q4H PRN NG For High Blood Pressure 11/13/19 17:00 02/09/20 10:59 Dexamethasone Sodium Phosphate (Decadron 10mg/ ml Inj) 6 mg DAILY IV 11/09/19 09:00 02/06/20 09:14 11/14/19 08:19 Dextrose 1,000 ml @ 75 mls/hr [id number] IV 11/14/19 08:15 12/14/19 08:14 11/14/19 08:20 Dextrose (Dextrose 50%) 25 ml Q30M PRN IV Hypoglycemia 11/08/19 12:30 02/05/20 02:59 Dextrose (Dextrose 50%) 50 ml Q30M PRN IV Hypoglycemia 11/08/19 12:30 02/05/20 02:59 Docusate Sodium (Colace) 100 mg THREE TIMES A DAY NG 11/14/19 09:00 12/14/19 08:59 11/14/19 08:46 Famotidine (Pepcid I.v.) 20 mg Q12HR IVP 11/08/19 15:30 12/08/19 15:29 11/14/19 08:19 Fentanyl Citrate 250 ml @ 0 mls/hr Q24H IV 11/08/19 12:29 02/06/20 12:28 11/13/19 16:33 Insulin Aspart (NovoLOG) BEFORE MEALS AND HS SUBQ 11/13/19 21:00 02/11/20 20:59 11/14/19 05:54 Insulin Detemir (Levemir) 15 units Q12HR SUBQ 11/14/19 09:00 02/11/20 20:59 11/14/19 08:45 Lactulose (Cephulac) 20 gm THREE TIMES A DAY ORAL 11/13/19 18:00 12/13/19 17:59 11/14/19 08:19 Lorazepam (Ativan 2mg/ml 1ml) 1 mg Q4H PRN IV For Anxiety 11/14/19 10:00 11/21/19 09:59 Metoprolol Tartrate (Lopressor) 25 mg Q12HR NG 11/12/19 21:00 02/09/20 10:59 11/14/19 08:20 Polyethylene Glycol (Miralax) 17 gm BEDTIME ORAL 11/13/19 21:00 12/13/19 20:59 11/13/19 20:42 Remdesivir 100 mg/ Sodium Chloride 250 ml @ 250 mls/hr Q24H IV 11/12/19 13:00 11/16/19 13:59 11/13/19 13:00 Rosette Bowman MD Nov 14, 2019 10:36
--- NOTE | 2019-11-14 11:25 | Surgery Progress Note ---
Surgery Progress Note Subjective Procedure Performed Hemostasis of left nostril hemorrhage emergency Additional Comments leukocytosis ill appearing on support no n/v/f/c labs reviewed no bleeding Objective Last 24 Hour Vital Signs Date Time Temp Pulse Resp B/P (MAP) Pulse Ox O2 Delivery O2 Flow Rate FiO2 11/14/19 11:20 69 19 40 11/14/19 09:00 20 114/57 Mechanical Ventilator 40 11/14/19 09:00 69 20 114/57 (76) 97 11/14/19 08:30 74 21 127/72 (90) 97 11/14/19 08:20 73 173/84 11/14/19 08:05 75 24 40 11/14/19 08:00 98.2 87 21 173/84 (113) 100 11/14/19 08:00 99 11/14/19 08:00 40 11/14/19 08:00 40 173/84 Mechanical Ventilator 40 11/14/19 08:00 92 52 40 11/14/19 07:55 40 11/14/19 07:30 71 19 40 11/14/19 07:30 71 22 101/64 (76) 98 11/14/19 07:30 20 101/64 Mechanical Ventilator 40 11/14/19 07:00 20 95/58 Mechanical Ventilator 40 11/14/19 07:00 69 20 95/58 (70) 97 11/14/19 06:30 66 19 11/14/19 06:30 68 19 103/55 (71) 97 11/14/19 06:00 68 20 97/55 (69) 98 11/14/19 06:00 20 95/55 40 11/14/19 05:30 68 20 102/53 (69) 98 11/14/19 05:04 71 22 124/65 (84) 98 11/14/19 05:00 14 121/96 Mechanical Ventilator 40 11/14/19 04:00 97.6 80 21 115/51 (72) 97 11/14/19 04:00 40 11/14/19 04:00 74 11/14/19 04:00 12 107/65 Mechanical Ventilator 40 11/14/19 04:00 Mechanical Ventilator 11/14/19 03:30 87 24 139/84 (102) 98 11/14/19 03:30 76 20 40 11/14/19 03:00 75 19 105/48 (67) 98 11/14/19 03:00 21 139/84 Mechanical Ventilator 40 11/14/19 02:30 83 20 114/60 (78) 98 11/14/19 02:00 19 114/60 Mechanical Ventilator 40 11/14/19 02:00 85 19 118/58 (78) 97 11/14/19 01:30 86 19 123/78 (93) 98 11/14/19 01:00 88 22 126/70 (88) 98 11/14/19 01:00 21 123/78 Mechanical Ventilator 40 11/14/19 00:30 86 19 150/92 (111) 97 11/14/19 00:00 82 11/14/19 00:00 Mechanical Ventilator 11/14/19 00:00 21 150/92 Mechanical Ventilator 40 11/14/19 00:00 40 11/14/19 00:00 98.4 91 18 137/78 (97) 97 11/13/19 23:30 90 22 137/64 (88) 97 11/13/19 23:30 83 20 40 11/13/19 23:00 22 137/64 Mechanical Ventilator 40 11/13/19 23:00 91 27 133/71 (91) 97 11/13/19 22:30 89 22 135/75 (95) 97 11/13/19 22:00 18 122/73 Mechanical Ventilator 40 11/13/19 22:00 90 18 122/73 (89) 97 11/13/19 21:30 93 16 140/65 (90) 97 11/13/19 21:00 92 18 128/74 (92) 97 11/13/19 21:00 17 140/65 Mechanical Ventilator 40 11/13/19 20:42 88 125/72 11/13/19 20:30 93 18 125/75 (92) 97 11/13/19 20:00 99.7 88 17 124/64 (84) 97 11/13/19 20:00 Mechanical Ventilator 11/13/19 20:00 40 11/13/19 20:00 18 125/75 Mechanical Ventilator 40 11/13/19 20:00 94 11/13/19 19:30 92 19 132/72 (92) 97 11/13/19 19:30 88 19 40 11/13/19 19:00 18 122/72 Mechanical Ventilator 40 11/13/19 19:00 94 18 121/83 (96) 97 11/13/19 18:00 89 18 117/69 (85) 97 11/13/19 18:00 18 117/69 Mechanical Ventilator 40 11/13/19 17:30 93 18 142/75 (97) 97 11/13/19 17:00 95 18 149/68 (95) 97 11/13/19 17:00 17 123/71 Mechanical Ventilator 40 11/13/19 16:33 18 145/71 Mechanical Ventilator 60.0 40 11/13/19 16:00 40 11/13/19 16:00 Mechanical Ventilator 11/13/19 16:00 18 145/71 Mechanical Ventilator 40 11/13/19 16:00 89 11/13/19 16:00 98.8 97 18 145/71 (95) 97 11/13/19 15:30 92 18 130/71 (90) 97 11/13/19 15:15 96 19 40 11/13/19 15:00 91 17 121/73 (89) 96 11/13/19 15:00 18 130/71 Mechanical Ventilator 40 11/13/19 14:00 88 18 123/60 (81) 97 11/13/19 14:00 18 123/60 Mechanical Ventilator 40 11/13/19 13:00 98 17 105/71 (82) 97 11/13/19 13:00 20 105/71 Mechanical Ventilator 40 11/13/19 12:30 98 18 128/66 (86) 97 11/13/19 12:00 97.7 110 18 143/84 (103) 97 11/13/19 12:00 20 128/66 Mechanical Ventilator 40 11/13/19 12:00 Mechanical Ventilator 11/13/19 12:00 101 11/13/19 12:00 40 11/13/19 11:30 121 24 156/90 (112) 100 I&O Intake and Output 11/13/19 11/14/19 19:00 07:00 Intake Total 1174.5 ml 1784 ml Output Total 590 ml 670 ml Balance 584.5 ml 1114 ml Free Water 100 ml 200 ml IV Total 754.5 ml 1044 ml Tube Feeding 320 ml 480 ml Other 60 ml Output Urine Total 590 ml 670 ml Dressing: other Wound: other Drains: other Cardiovascular: RSR Respiratory: decreased breath sounds Abdomen: soft, non-tender, present bowel sounds Extremities: no tenderness, no cyanosis Laboratory Tests Test 11/14/19 03:30 11/14/19 04:00 D-Dimer 8.74 mg/L FEU (0.00-0.49) H White Blood Count 15.8 K/UL (4.8-10.8) H Red Blood Count 3.95 M/UL (4.20-5.40) L Hemoglobin 10.6 G/DL (12.0-16.0) L Hematocrit 36.0 % (37.0-47.0) L Mean Corpuscular Volume 91 FL (80-99) Mean Corpuscular Hemoglobin 26.8 PG (27.0-31.0) L Mean Corpuscular Hemoglobin Concent 29.4 G/DL (32.0-36.0) L Red Cell Distribution Width 17.1 % (11.6-14.8) H Platelet Count 207 K/UL (150-450) Mean Platelet Volume 6.7 FL (6.5-10.1) Neutrophils (%) (Auto) % (45.0-75.0) Lymphocytes (%) (Auto) % (20.0-45.0) Monocytes (%) (Auto) % (1.0-10.0) Eosinophils (%) (Auto) % (0.0-3.0) Basophils (%) (Auto) % (0.0-2.0) Differential Total Cells Counted 100 Neutrophils % (Manual) 90 % (45-75) H Lymphocytes % (Manual) 4 % (20-45) L Monocytes % (Manual) 6 % (1-10) Eosinophils % (Manual) 0 % (0-3) Basophils % (Manual) 0 % (0-2) Band Neutrophils 0 % (0-8) Platelet Estimate Adequate Platelet Morphology Normal Polychromasia 1+ Hypochromasia 1+ Anisocytosis 1+ Sodium Level 146 MMOL/L (136-145) H Potassium Level 5.4 MMOL/L (3.5-5.1) H Chloride Level 115 MMOL/L (98-107) H Carbon Dioxide Level 27 MMOL/L (21-32) Anion Gap 4 mmol/L (5-15) L Blood Urea Nitrogen 40 mg/dL (7-18) H Creatinine 1.2 MG/DL (0.55-1.30) Estimat Glomerular Filtration Rate 47.0 mL/min (>60) Glucose Level 357 MG/DL (74-106) H Uric Acid 6.0 MG/DL (2.6-7.2) Calcium Level 8.5 MG/DL (8.5-10.1) Phosphorus Level 3.2 MG/DL (2.5-4.9) Magnesium Level 2.4 MG/DL (1.8-2.4) Iron Level 29 ug/dL (50-175) L Total Iron Binding Capacity 346 ug/dL (250-450) Percent Iron Saturation 8 % (15-50) L Unsaturated Iron Binding 317 ug/dL (112-346) Ferritin 51 NG/ML (8-388) Total Bilirubin 0.9 MG/DL (0.2-1.0) Direct Bilirubin 0.5 MG/DL (0.0-0.3) H Gamma Glutamyl Transpeptidase 238 U/L (5-85) H Aspartate Amino Transf (AST/SGOT) 45 U/L (15-37) H Alanine Aminotransferase (ALT/SGPT) 40 U/L (12-78) Alkaline Phosphatase 208 U/L (46-116) H Lactate Dehydrogenase 373 U/L (81-234) H Total Creatine Kinase 36 U/L (26-308) C-Reactive Protein, Quantitative 1.7 mg/dL (0.00-0.90) H Pro-B-Type Natriuretic Peptide 5577 pg/mL (0-125) H Total Protein 6.5 G/DL (6.4-8.2) Albumin 2.2 G/DL (3.4-5.0) L Globulin 4.3 g/dL Albumin/Globulin Ratio 0.5 (1.0-2.7) L Vitamin B12 Level 1372 PG/ML (193-986) H Folate 7.9 NG/ML (8.6-58.9) L Plan Problems: (1) Weak (2) UTI (urinary tract infection) (3) Hypoxia (4) Epistaxis Assessment & Plan: Severe after taxis left nostril Rhino Rocket placed hemostasis noted over the course 24 hours hemoglobin stable Lovenox been stopped. The balloon of both ports of the Rhino Rocket were deflated today. The rocket itself was not removed and will monitor over the course next 24 hours hemostasis. If so will gently remove and plan for local monitoring. Currently wean ventilator as tolerated. Goals of extubation when possible. deflated balloon 11/08 removed trumpet 11/09 will monitor for bleeding wean vent plan extubation discussed with pulm (5) Fluid overload Assessment & Plan: Continue central venous catheter for now. Will anticipate removal once patient stable for extubation. Thank you for allowing me to participate patient's care (6) Diabetes (7) CHF (congestive heart failure) (8) Afib (9) Multifocal pneumonia (10) 2019 novel coronavirus disease (COVID-19) (11) Respiratory failure Ortiz Fleming Nov 14, 2019 11:25
--- NOTE | 2019-11-14 12:18 | Hematology/Onc Progress Note ---
Assessment/Plan Assessment/Plan # Anemia of chronic disease due to underlying chronic medical issues, multifactorial v Gi bleed in this case likely related covid19+++++++++ --> Anemia workup has been ordered, rule out gi bleed --> No evidence of hemolysis is noted, peripheral smear has been reviewed. --> Hgb goal >7. Transfuse prn. --> Epogen or iron at this time is not particularly indicated --> Medications have been reviewed --> low threshold for gi evaluation in case has occult + --> hgb 10-->9.8-->9.2-->9.7-->10.7->10 # Leukocytosis/elevated white blood cell count, unspecified likely related to covid19 --> have reviewed peripheral smear and bandemia/neutrophilia noted --> continue antibiotics if they have been started by ID team [email or web address] --> on remdesivir, dex --> monitor for resolution --> wbc 12->11-->11-->13->16 # COVID 19 pneumonia --> on vent --> respiratory failure --> s/p vent # Diabetes mellitus --> iss and bs goal <140 # Hypertension --> sbp goal <150 Appreciate consultation and jimena EL Subjective Allergies: Coded Allergies: No Known Allergies (Unverified , 11/06/19) All Systems: reviewed and negative except above Subjective 11/09 weaning prn, meds reviewed, labs noted, hgb 9.2 11/10 on vent, no bleeding, hgb remains low, jimena Rn Jose R in am 11/11 on vent, fluids, ogf tube as well, labs pending in am 11/12 remains altered, no bleeding, labs reviewed, cbc noted 11/13 attempted weaning, but did not do well, no bleeding, hgb 10 Objective Objective Current Medications Medications (Trade) Dose Ordered Sig/Robyn Route PRN Reason Start Time Stop Time Status Last Admin Dose Admin Acetaminophen (Tylenol) 650 mg Q6H PRN NG Temp >100.5 11/12/19 00:15 12/12/19 00:14 11/12/19 00:22 Apixaban (Eliquis) 5 mg BID NGT 11/14/19 09:00 02/12/20 08:59 11/14/19 08:20 Chlorhexidine Gluconate (Miya-Hex 2%) 1 applic DAILY@2000 TOPIC 11/08/19 21:30 02/06/20 21:29 11/13/19 20:41 Clonidine HCl (Catapres Tab) 0.1 mg Q4H PRN NG For High Blood Pressure 11/13/19 17:00 02/09/20 10:59 Dexamethasone Sodium Phosphate (Decadron 10mg/ ml Inj) 6 mg DAILY IV 11/09/19 09:00 02/06/20 09:14 11/14/19 08:19 Dextrose 1,000 ml @ 75 mls/hr [id number] IV 11/14/19 08:15 12/14/19 08:14 11/14/19 08:20 Dextrose (Dextrose 50%) 25 ml Q30M PRN IV Hypoglycemia 11/08/19 12:30 02/05/20 02:59 Dextrose (Dextrose 50%) 50 ml Q30M PRN IV Hypoglycemia 11/08/19 12:30 02/05/20 02:59 Docusate Sodium (Colace) 100 mg THREE TIMES A DAY NG 11/14/19 09:00 12/14/19 08:59 11/14/19 08:46 Famotidine (Pepcid I.v.) 20 mg Q12HR IVP 11/08/19 15:30 12/08/19 15:29 11/14/19 08:19 Fentanyl Citrate 250 ml @ 0 mls/hr Q24H IV 11/08/19 12:29 02/06/20 12:28 11/13/19 16:33 Insulin Aspart (NovoLOG) BEFORE MEALS AND HS SUBQ 11/13/19 21:00 02/11/20 20:59 11/14/19 05:54 Insulin Detemir (Levemir) 15 units Q12HR SUBQ 11/14/19 09:00 02/11/20 20:59 11/14/19 08:45 Lactulose (Cephulac) 20 gm THREE TIMES A DAY ORAL 11/13/19 18:00 12/13/19 17:59 11/14/19 08:19 Lorazepam (Ativan 2mg/ml 1ml) 1 mg Q4H PRN IV For Anxiety 11/14/19 10:00 8/1/20 09:59 Metoprolol Tartrate (Lopressor) 25 mg Q12HR NG 11/12/19 21:00 02/09/20 10:59 11/14/19 08:20 Polyethylene Glycol (Miralax) 17 gm BEDTIME ORAL 11/13/19 21:00 12/13/19 20:59 11/13/19 20:42 Remdesivir 100 mg/ Sodium Chloride 250 ml @ 250 mls/hr Q24H IV 11/12/19 13:00 11/16/19 13:59 11/13/19 13:00 Last 24 Hour Vital Signs Date Time Temp Pulse Resp B/P (MAP) Pulse Ox O2 Delivery O2 Flow Rate FiO2 11/14/19 11:20 69 19 40 11/14/19 11:00 71 21 124/64 (84) 97 11/14/19 10:30 70 22 106/58 (74) 96 11/14/19 10:00 72 22 108/56 (73) 96 11/14/19 09:30 72 20 105/59 (74) 97 11/14/19 09:00 20 114/57 Mechanical Ventilator 40 11/14/19 09:00 69 20 114/57 (76) 97 11/14/19 08:30 74 21 127/72 (90) 97 11/14/19 08:20 73 173/84 11/14/19 08:05 75 24 40 11/14/19 08:00 98.2 87 21 173/84 (113) 100 11/14/19 08:00 99 11/14/19 08:00 40 11/14/19 08:00 40 173/84 Mechanical Ventilator 40 11/14/19 08:00 92 52 40 11/14/19 08:00 Mechanical Ventilator 11/14/19 07:55 40 11/14/19 07:30 71 19 40 11/14/19 07:30 71 22 101/64 (76) 98 11/14/19 07:30 20 101/64 Mechanical Ventilator 40 11/14/19 07:00 20 95/58 Mechanical Ventilator 40 11/14/19 07:00 69 20 95/58 (70) 97 11/14/19 06:30 66 19 11/14/19 06:30 68 19 103/55 (71) 97 11/14/19 06:00 68 20 97/55 (69) 98 11/14/19 06:00 20 95/55 40 11/14/19 05:30 68 20 102/53 (69) 98 11/14/19 05:04 71 22 124/65 (84) 98 11/14/19 05:00 14 121/96 Mechanical Ventilator 40 11/14/19 04:00 97.6 80 21 115/51 (72) 97 11/14/19 04:00 40 11/14/19 04:00 74 11/14/19 04:00 12 107/65 Mechanical Ventilator 40 11/14/19 04:00 Mechanical Ventilator 11/14/19 03:30 87 24 139/84 (102) 98 11/14/19 03:30 76 20 40 11/14/19 03:00 75 19 105/48 (67) 98 11/14/19 03:00 21 139/84 Mechanical Ventilator 40 11/14/19 02:30 83 20 114/60 (78) 98 11/14/19 02:00 19 114/60 Mechanical Ventilator 40 11/14/19 02:00 85 19 118/58 (78) 97 11/14/19 01:30 86 19 123/78 (93) 98 11/14/19 01:00 88 22 126/70 (88) 98 11/14/19 01:00 21 123/78 Mechanical Ventilator 40 11/14/19 00:30 86 19 150/92 (111) 97 11/14/19 00:00 82 11/14/19 00:00 Mechanical Ventilator 11/14/19 00:00 21 150/92 Mechanical Ventilator 40 11/14/19 00:00 40 11/14/19 00:00 98.4 91 18 137/78 (97) 97 11/13/19 23:30 90 22 137/64 (88) 97 11/13/19 23:30 83 20 40 11/13/19 23:00 22 137/64 Mechanical Ventilator 40 11/13/19 23:00 91 27 133/71 (91) 97 11/13/19 22:30 89 22 135/75 (95) 97 11/13/19 22:00 18 122/73 Mechanical Ventilator 40 11/13/19 22:00 90 18 122/73 (89) 97 11/13/19 21:30 93 16 140/65 (90) 97 11/13/19 21:00 92 18 128/74 (92) 97 11/13/19 21:00 17 140/65 Mechanical Ventilator 40 11/13/19 20:42 88 125/72 11/13/19 20:30 93 18 125/75 (92) 97 11/13/19 20:00 99.7 88 17 124/64 (84) 97 11/13/19 20:00 Mechanical Ventilator 11/13/19 20:00 40 11/13/19 20:00 18 125/75 Mechanical Ventilator 40 11/13/19 20:00 94 11/13/19 19:30 92 19 132/72 (92) 97 11/13/19 19:30 88 19 40 11/13/19 19:00 18 122/72 Mechanical Ventilator 40 11/13/19 19:00 94 18 121/83 (96) 97 11/13/19 18:00 89 18 117/69 (85) 97 11/13/19 18:00 18 117/69 Mechanical Ventilator 40 11/13/19 17:30 93 18 142/75 (97) 97 11/13/19 17:00 95 18 149/68 (95) 97 11/13/19 17:00 17 123/71 Mechanical Ventilator 40 11/13/19 16:33 18 145/71 Mechanical Ventilator 60.0 40 11/13/19 16:00 40 11/13/19 16:00 Mechanical Ventilator 11/13/19 16:00 18 145/71 Mechanical Ventilator 40 11/13/19 16:00 89 11/13/19 16:00 98.8 97 18 145/71 (95) 97 11/13/19 15:30 92 18 130/71 (90) 97 11/13/19 15:15 96 19 40 11/13/19 15:00 91 17 121/73 (89) 96 11/13/19 15:00 18 130/71 Mechanical Ventilator 40 11/13/19 14:00 88 18 123/60 (81) 97 11/13/19 14:00 18 123/60 Mechanical Ventilator 40 11/13/19 13:00 98 17 105/71 (82) 97 11/13/19 13:00 20 105/71 Mechanical Ventilator 40 11/13/19 12:30 98 18 128/66 (86) 97 11/13/19 12:00 97.7 110 18 143/84 (103) 97 11/13/19 12:00 20 128/66 Mechanical Ventilator 40 11/13/19 12:00 Mechanical Ventilator 11/13/19 12:00 101 11/13/19 12:00 40 11/13/19 11:30 121 24 156/90 (112) 100 11/13/19 11:02 114 18 40 11/13/19 11:00 116 18 138/88 (105) 98 11/13/19 11:00 113 19 98 Mechanical Ventilator 60.0 40 11/13/19 11:00 20 175/98 Mechanical Ventilator 40 11/13/19 10:00 113 18 178/121 (140) 96 11/13/19 09:48 97 11/13/19 09:30 116 20 155/117 (130) 97 11/13/19 09:00 135 27 194/119 (144) 96 11/13/19 08:48 120 199/111 11/13/19 08:30 134 28 199/111 (140) 97 11/13/19 08:21 104 20 40 40 11/13/19 08:00 Mechanical Ventilator 11/13/19 08:00 40 11/13/19 08:00 97.5 94 18 174/78 (110) 98 11/13/19 08:00 93 11/13/19 07:30 20 114/67 Mechanical Ventilator 40 11/13/19 07:10 78 18 40 11/13/19 07:00 19 114/67 Mechanical Ventilator 40 11/13/19 07:00 81 18 114/67 (83) 96 11/13/19 06:30 78 19 120/66 (84) 97 11/13/19 06:30 77 19 11/13/19 06:00 78 19 120/77 (91) 96 11/13/19 06:00 20 120/77 Mechanical Ventilator 40 11/13/19 05:30 81 19 127/77 (94) 97 11/13/19 05:00 20 119/66 Mechanical Ventilator 40 11/13/19 05:00 74 20 119/66 (83) 96 11/13/19 04:30 72 19 125/63 (83) 96 11/13/19 04:00 Mechanical Ventilator 11/13/19 04:00 97.9 75 20 111/67 (82) 96 11/13/19 04:00 20 111/67 Mechanical Ventilator 40 11/13/19 04:00 74 11/13/19 04:00 40 11/13/19 03:30 71 19 112/60 (77) 97 11/13/19 03:00 19 118/72 Mechanical Ventilator 40 11/13/19 03:00 69 19 118/72 (87) 97 11/13/19 02:55 72 18 40 11/13/19 02:30 72 18 106/64 (78) 96 11/13/19 02:00 18 115/69 Mechanical Ventilator 40 11/13/19 02:00 70 19 112/65 (81) 98 11/13/19 01:30 69 18 115/69 (84) 98 11/13/19 01:00 19 115/69 Mechanical Ventilator 40 11/13/19 01:00 74 19 116/63 (80) 98 11/13/19 00:30 75 22 139/87 (104) 98 11/13/19 00:00 Mechanical Ventilator 11/13/19 00:00 74 11/13/19 00:00 97.7 71 18 98/60 (73) 97 11/13/19 00:00 18 139/87 Mechanical Ventilator 40 11/13/19 00:00 40 11/12/19 23:00 79 20 118/71 (87) 97 11/12/19 23:00 20 118/71 Mechanical Ventilator 40 11/12/19 22:43 74 18 40 11/12/19 22:30 77 18 127/64 (85) 97 11/12/19 22:00 18 118/83 Mechanical Ventilator 40 11/12/19 22:00 77 18 118/83 (95) 96 11/12/19 21:30 80 18 124/66 (85) 96 11/12/19 21:00 19 124/65 Mechanical Ventilator 40 11/12/19 21:00 76 30 124/65 (84) 96 46 11/12/19 20:30 78 22 149/86 (107) 96 78 11/12/19 20:04 81 145/65 11/12/19 20:00 72 11/12/19 20:00 19 118/50 Mechanical Ventilator 40 11/12/19 20:00 40 11/12/19 20:00 97.9 78 18 118/50 (72) 96 11/12/19 20:00 Mechanical Ventilator 11/12/19 19:30 76 19 145/65 (91) 97 11/12/19 19:02 77 19 40 11/12/19 19:00 76 19 119/66 (83) 98 11/12/19 19:00 20 119/66 Mechanical Ventilator 40 11/12/19 18:30 75 19 117/60 (79) 98 11/12/19 18:30 74 19 121/64 (83) 97 11/12/19 18:00 81 20 121/64 (83) 97 11/12/19 18:00 79 20 137/56 (83) 97 11/12/19 18:00 19 137/56 Mechanical Ventilator 40 11/12/19 17:30 63 19 137/56 (83) 96 11/12/19 17:00 74 20 108/52 (70) 96 11/12/19 17:00 19 108/52 Mechanical Ventilator 40 11/12/19 16:00 98.3 71 20 104/58 (73) 96 11/12/19 16:00 40 11/12/19 16:00 20 104/58 Mechanical Ventilator 40 11/12/19 16:00 Mechanical Ventilator 11/12/19 16:00 69 11/12/19 15:08 74 21 40 11/12/19 15:00 75 20 102/52 (69) 94 11/12/19 15:00 21 121/53 Mechanical Ventilator 40 11/12/19 14:30 74 20 121/53 (75) 96 11/12/19 14:14 21 107/54 Mechanical Ventilator 60.0 40 11/12/19 14:00 21 126/68 Mechanical Ventilator 40 11/12/19 14:00 74 21 126/67 (86) 96 11/12/19 13:30 69 21 107/54 (71) 96 11/12/19 13:00 21 110/67 Mechanical Ventilator 40 11/12/19 13:00 71 20 110/67 (81) 95 11/12/19 12:30 72 21 125/98 (107) 95 Intake and Output 11/13/19 11/14/19 19:00 07:00 Intake Total 1174.5 ml 1784 ml Output Total 590 ml 670 ml Balance 584.5 ml 1114 ml Free Water 100 ml 200 ml IV Total 754.5 ml 1044 ml Tube Feeding 320 ml 480 ml Other 60 ml Output Urine Total 590 ml 670 ml Labs Test 11/11/19 17:34 11/12/19 03:10 11/13/19 03:46 11/14/19 03:30 Lactic Acid Level 2.80 mmol/L (0.4-2.0) 2.70 mmol/L (0.4-2.0) 2.60 mmol/L (0.4-2.0) White Blood Count 11.1 K/UL (4.8-10.8) 13.0 K/UL (4.8-10.8) Red Blood Count 3.57 M/UL (4.20-5.40) 4.00 M/UL (4.20-5.40) Hemoglobin 9.7 G/DL (12.0-16.0) 10.7 G/DL (12.0-16.0) Hematocrit 32.2 % (37.0-47.0) 36.6 % (37.0-47.0) Mean Corpuscular Volume 90 FL (80-99) 92 FL (80-99) Mean Corpuscular Hemoglobin 27.1 PG (27.0-31.0) 26.8 PG (27.0-31.0) Mean Corpuscular Hemoglobin Concent 30.1 G/DL (32.0-36.0) 29.3 G/DL (32.0-36.0) Red Cell Distribution Width 16.5 % (11.6-14.8) 16.6 % (11.6-14.8) Platelet Count 222 K/UL (150-450) 197 K/UL (150-450) Mean Platelet Volume 6.6 FL (6.5-10.1) 5.9 FL (6.5-10.1) Neutrophils (%) (Auto) % (45.0-75.0) % (45.0-75.0) Lymphocytes (%) (Auto) % (20.0-45.0) % (20.0-45.0) Monocytes (%) (Auto) % (1.0-10.0) % (1.0-10.0) Eosinophils (%) (Auto) % (0.0-3.0) % (0.0-3.0) Basophils (%) (Auto) % (0.0-2.0) % (0.0-2.0) Sodium Level 147 MMOL/L (136-145) 148 MMOL/L (136-145) Potassium Level 4.8 MMOL/L (3.5-5.1) 5.3 MMOL/L (3.5-5.1) Chloride Level 112 MMOL/L (98-107) 116 MMOL/L (98-107) Carbon Dioxide Level 27 MMOL/L (21-32) 28 MMOL/L (21-32) Anion Gap 8 mmol/L (5-15) 4 mmol/L (5-15) Blood Urea Nitrogen 49 mg/dL (7-18) 41 mg/dL (7-18) Creatinine 1.5 MG/DL (0.55-1.30) 1.2 MG/DL (0.55-1.30) Estimat Glomerular Filtration Rate 36.4 mL/min (>60) 47.0 mL/min (>60) Glucose Level 373 MG/DL (74-106) 428 MG/DL (74-106) Hemoglobin A1c 10.4 % (4.3-6.0) Calcium Level 8.0 MG/DL (8.5-10.1) 8.3 MG/DL (8.5-10.1) Total Bilirubin 1.1 MG/DL (0.2-1.0) Direct Bilirubin 0.7 MG/DL (0.0-0.3) Aspartate Amino Transf (AST/SGOT) 41 U/L (15-37) Alanine Aminotransferase (ALT/SGPT) 39 U/L (12-78) Alkaline Phosphatase 184 U/L (46-116) Total Protein 6.1 G/DL (6.4-8.2) Albumin 2.0 G/DL (3.4-5.0) Globulin 4.1 g/dL Albumin/Globulin Ratio 0.5 (1.0-2.7) Differential Total Cells Counted 100 Neutrophils % (Manual) 90 % (45-75) Lymphocytes % (Manual) 6 % (20-45) Monocytes % (Manual) 4 % (1-10) Eosinophils % (Manual) 0 % (0-3) Basophils % (Manual) 0 % (0-2) Band Neutrophils 0 % (0-8) Platelet Estimate Adequate Platelet Morphology Normal Hypochromasia 1+ Anisocytosis 1+ D-Dimer 8.74 mg/L FEU (0.00-0.49) Test 11/14/19 04:00 White Blood Count 15.8 K/UL (4.8-10.8) Red Blood Count 3.95 M/UL (4.20-5.40) Hemoglobin 10.6 G/DL (12.0-16.0) Hematocrit 36.0 % (37.0-47.0) Mean Corpuscular Volume 91 FL (80-99) Mean Corpuscular Hemoglobin 26.8 PG (27.0-31.0) Mean Corpuscular Hemoglobin Concent 29.4 G/DL (32.0-36.0) Red Cell Distribution Width 17.1 % (11.6-14.8) Platelet Count 207 K/UL (150-450) Mean Platelet Volume 6.7 FL (6.5-10.1) Neutrophils (%) (Auto) % (45.0-75.0) Lymphocytes (%) (Auto) % (20.0-45.0) Monocytes (%) (Auto) % (1.0-10.0) Eosinophils (%) (Auto) % (0.0-3.0) Basophils (%) (Auto) % (0.0-2.0) Differential Total Cells Counted 100 Neutrophils % (Manual) 90 % (45-75) Lymphocytes % (Manual) 4 % (20-45) Monocytes % (Manual) 6 % (1-10) Eosinophils % (Manual) 0 % (0-3) Basophils % (Manual) 0 % (0-2) Band Neutrophils 0 % (0-8) Platelet Estimate Adequate Platelet Morphology Normal Polychromasia 1+ Hypochromasia 1+ Anisocytosis 1+ Sodium Level 146 MMOL/L (136-145) Potassium Level 5.4 MMOL/L (3.5-5.1) Chloride Level 115 MMOL/L (98-107) Carbon Dioxide Level 27 MMOL/L (21-32) Anion Gap 4 mmol/L (5-15) Blood Urea Nitrogen 40 mg/dL (7-18) Creatinine 1.2 MG/DL (0.55-1.30) Estimat Glomerular Filtration Rate 47.0 mL/min (>60) Glucose Level 357 MG/DL (74-106) Uric Acid 6.0 MG/DL (2.6-7.2) Calcium Level 8.5 MG/DL (8.5-10.1) Phosphorus Level 3.2 MG/DL (2.5-4.9) Magnesium Level 2.4 MG/DL (1.8-2.4) Iron Level 29 ug/dL (50-175) Total Iron Binding Capacity 346 ug/dL (250-450) Percent Iron Saturation 8 % (15-50) Unsaturated Iron Binding 317 ug/dL (112-346) Ferritin 51 NG/ML (8-388) Total Bilirubin 0.9 MG/DL (0.2-1.0) Direct Bilirubin 0.5 MG/DL (0.0-0.3) Gamma Glutamyl Transpeptidase 238 U/L (5-85) Aspartate Amino Transf (AST/SGOT) 45 U/L (15-37) Alanine Aminotransferase (ALT/SGPT) 40 U/L (12-78) Alkaline Phosphatase 208 U/L (46-116) Lactate Dehydrogenase 373 U/L (81-234) Total Creatine Kinase 36 U/L (26-308) C-Reactive Protein, Quantitative 1.7 mg/dL (0.00-0.90) Pro-B-Type Natriuretic Peptide 5577 pg/mL (0-125) Total Protein 6.5 G/DL (6.4-8.2) Albumin 2.2 G/DL (3.4-5.0) Globulin 4.3 g/dL Albumin/Globulin Ratio 0.5 (1.0-2.7) Vitamin B12 Level 1372 PG/ML (193-986) Folate 7.9 NG/ML (8.6-58.9) Height (Feet): 5 Height (Inches): 3.00 Weight (Pounds): 344 Objective Physical Exam: Vitals: reviewed General: NAD HEENT: nc, at Neck: supple Chest: clear breath sounds on vent++ Cardiovascular: RRR, no s3, s4 Abdomen: soft, nontender, nd Extremities: no cce, normal range of motion Neuro: alert and oriented Ismael Fischer MD Nov 14, 2019 12:18
[2019-11-14] MEDS: Remdesivir 100mg 100 MG in NS 230 ML IV SCH (12:48)
--- NOTE | 2019-11-14 13:28 | Pulmonolgy Critical Care Note ---
Critical Care - Asmt/Plan Assessment/Plan: Pulmonary Critical Care Progress Note Subjective ROS Limited/Unobtainable: No Interval Events: Intubated; previous epistaxis, has not recurred Coded Allergies: No Known Allergies (Unverified , 11/06/19) All Systems: reviewed and negative except above Objective Vital Signs Noted Deferred Covid 19 Laboratory Tests noted Assessment/Plan IMPRESSION: 1. COVID-19 pneumonia. 2. Diabetes mellitus and hypertension. 3. Lactic acidemia. 4. Previous epistaxis 5. Respiratory failure - wean as tolerated 6. Leukocytosis 7. Anemia PLAN: Wean as tolerated ABG PRN Continue remdesivir and steroids per ID Critical Care - Objective Last 24 Hour Vital Signs Date Time Temp Pulse Resp B/P (MAP) Pulse Ox O2 Delivery O2 Flow Rate FiO2 11/14/19 12:00 40 11/14/19 12:00 Mechanical Ventilator 11/14/19 11:20 69 19 40 11/14/19 11:00 71 21 124/64 (84) 97 11/14/19 10:30 70 22 106/58 (74) 96 11/14/19 10:00 72 22 108/56 (73) 96 11/14/19 09:30 72 20 105/59 (74) 97 11/14/19 09:00 20 114/57 Mechanical Ventilator 40 11/14/19 09:00 69 20 114/57 (76) 97 11/14/19 08:30 74 21 127/72 (90) 97 11/14/19 08:20 73 173/84 11/14/19 08:05 75 24 40 11/14/19 08:00 98.2 87 21 173/84 (113) 100 11/14/19 08:00 99 11/14/19 08:00 40 11/14/19 08:00 40 173/84 Mechanical Ventilator 40 11/14/19 08:00 92 52 40 11/14/19 08:00 Mechanical Ventilator 11/14/19 07:55 40 11/14/19 07:30 71 19 40 11/14/19 07:30 71 22 101/64 (76) 98 11/14/19 07:30 20 101/64 Mechanical Ventilator 40 11/14/19 07:00 20 95/58 Mechanical Ventilator 40 11/14/19 07:00 69 20 95/58 (70) 97 11/14/19 06:30 66 19 7/25/20 06:30 68 19 103/55 (71) 97 11/14/19 06:00 68 20 97/55 (69) 98 11/14/19 06:00 20 95/55 40 11/14/19 05:30 68 20 102/53 (69) 98 11/14/19 05:04 71 22 124/65 (84) 98 11/14/19 05:00 14 121/96 Mechanical Ventilator 40 11/14/19 04:00 97.6 80 21 115/51 (72) 97 11/14/19 04:00 40 11/14/19 04:00 74 11/14/19 04:00 12 107/65 Mechanical Ventilator 40 11/14/19 04:00 Mechanical Ventilator 11/14/19 03:30 87 24 139/84 (102) 98 11/14/19 03:30 76 20 40 11/14/19 03:00 75 19 105/48 (67) 98 11/14/19 03:00 21 139/84 Mechanical Ventilator 40 11/14/19 02:30 83 20 114/60 (78) 98 11/14/19 02:00 19 114/60 Mechanical Ventilator 40 11/14/19 02:00 85 19 118/58 (78) 97 11/14/19 01:30 86 19 123/78 (93) 98 11/14/19 01:00 88 22 126/70 (88) 98 11/14/19 01:00 21 123/78 Mechanical Ventilator 40 11/14/19 00:30 86 19 150/92 (111) 97 11/14/19 00:00 82 11/14/19 00:00 Mechanical Ventilator 11/14/19 00:00 21 150/92 Mechanical Ventilator 40 11/14/19 00:00 40 11/14/19 00:00 98.4 91 18 137/78 (97) 97 11/13/19 23:30 90 22 137/64 (88) 97 11/13/19 23:30 83 20 40 11/13/19 23:00 22 137/64 Mechanical Ventilator 40 11/13/19 23:00 91 27 133/71 (91) 97 11/13/19 22:30 89 22 135/75 (95) 97 11/13/19 22:00 18 122/73 Mechanical Ventilator 40 11/13/19 22:00 90 18 122/73 (89) 97 11/13/19 21:30 93 16 140/65 (90) 97 11/13/19 21:00 92 18 128/74 (92) 97 11/13/19 21:00 17 140/65 Mechanical Ventilator 40 11/13/19 20:42 88 125/72 11/13/19 20:30 93 18 125/75 (92) 97 11/13/19 20:00 99.7 88 17 124/64 (84) 97 11/13/19 20:00 Mechanical Ventilator 11/13/19 20:00 40 11/13/19 20:00 18 125/75 Mechanical Ventilator 40 11/13/19 20:00 94 11/13/19 19:30 92 19 132/72 (92) 97 11/13/19 19:30 88 19 40 11/13/19 19:00 18 122/72 Mechanical Ventilator 40 11/13/19 19:00 94 18 121/83 (96) 97 11/13/19 18:00 89 18 117/69 (85) 97 11/13/19 18:00 18 117/69 Mechanical Ventilator 40 11/13/19 17:30 93 18 142/75 (97) 97 11/13/19 17:00 95 18 149/68 (95) 97 11/13/19 17:00 17 123/71 Mechanical Ventilator 40 11/13/19 16:33 18 145/71 Mechanical Ventilator 60.0 40 11/13/19 16:00 40 11/13/19 16:00 Mechanical Ventilator 11/13/19 16:00 18 145/71 Mechanical Ventilator 40 11/13/19 16:00 89 11/13/19 16:00 98.8 97 18 145/71 (95) 97 11/13/19 15:30 92 18 130/71 (90) 97 11/13/19 15:15 96 19 40 11/13/19 15:00 91 17 121/73 (89) 96 11/13/19 15:00 18 130/71 Mechanical Ventilator 40 11/13/19 14:00 88 18 123/60 (81) 97 11/13/19 14:00 18 123/60 Mechanical Ventilator 40 Accucheck: 357 Critical Care - Subjective ROS Limited/Unobtainable: No Condition: critical FI02: 40 Vent Support Breath Rate: 18 Vent Support Mode: AC Vent Tidal Volume: 500 Sputum Amount: Small PEEP: 5.0 PIP: 38 Tube Feeding Amount: 40 I&O: Intake and Output 11/13/19 11/14/19 19:00 07:00 Intake Total 1174.5 ml 1784 ml Output Total 590 ml 670 ml Balance 584.5 ml 1114 ml Free Water 100 ml 200 ml IV Total 754.5 ml 1044 ml Tube Feeding 320 ml 480 ml Other 60 ml Output Urine Total 590 ml 670 ml ET-Tube: 7.5 ET Position: 23 Inderjit Hunter MD Nov 14, 2019 13:28
[2019-11-14] MEDS: fentaNYL 2500mcg/NS 250ml 250 ML IV SCH (15:03)
--- NOTE | 2019-11-14 20:19 | Cardiac Electrophysiology PN ---
Assessment/Plan Assessment/Plan 1. Atrial fibrillation. On metoprolol 25 mg po BID and Eliquis 5 bid EF 55% on echo. 2. HTN, Lopressor 25 bid 3. COVID positive pneumonia. On Remdesevir and dexamethasone. 4. Diabetes, on insulin. 5. Respiratory failure on the Vent. 6. S/P Massive nasal bleed. DW [employer] Subjective Subjective In ICU off pressors on the vent. In atrial fib rate controlled on Lopressor 25 bid. Objective Last 24 Hour Vital Signs Date Time Temp Pulse Resp B/P (MAP) Pulse Ox O2 Delivery O2 Flow Rate FiO2 11/14/19 20:00 40 11/14/19 19:05 78 19 40 11/14/19 19:00 71 18 127/59 (81) 99 11/14/19 19:00 19 127/59 Mechanical Ventilator 40 11/14/19 18:30 76 19 125/64 (84) 98 11/14/19 18:00 75 10 112/61 (78) 98 11/14/19 18:00 20 112/61 Mechanical Ventilator 40 11/14/19 17:30 79 18 119/70 (86) 98 11/14/19 17:00 80 17 125/61 (82) 98 11/14/19 17:00 20 125/61 Mechanical Ventilator 40 11/14/19 16:30 85 18 148/72 (97) 97 11/14/19 16:00 Mechanical Ventilator 11/14/19 16:00 98.4 83 17 130/72 (91) 96 11/14/19 16:00 18 130/72 Mechanical Ventilator 40 11/14/19 16:00 73 11/14/19 16:00 40 11/14/19 15:30 80 15 135/59 (84) 96 11/14/19 15:03 18 120/72 Mechanical Ventilator 40 11/14/19 15:00 83 18 170/84 (112) 98 11/14/19 14:49 77 18 40 11/14/19 14:30 75 18 120/72 (88) 97 11/14/19 14:00 70 20 118/58 (78) 97 11/14/19 14:00 18 118/58 Mechanical Ventilator 40 11/14/19 13:30 67 18 109/63 (78) 96 11/14/19 13:00 74 18 116/62 (80) 96 11/14/19 13:00 18 116/62 Mechanical Ventilator 40 11/14/19 12:30 71 19 112/59 (76) 96 11/14/19 12:00 73 11/14/19 12:00 40 11/14/19 12:00 19 112/57 Mechanical Ventilator 40 11/14/19 12:00 98.3 72 19 112/57 (75) 96 11/14/19 12:00 Mechanical Ventilator 11/14/19 11:30 75 20 112/61 (78) 96 11/14/19 11:20 69 19 40 11/14/19 11:00 71 21 124/64 (84) 97 11/14/19 11:00 20 124/64 Mechanical Ventilator 40 11/14/19 10:30 70 22 106/58 (74) 96 11/14/19 10:00 20 108/56 Mechanical Ventilator 40 11/14/19 10:00 72 22 108/56 (73) 96 11/14/19 09:30 72 20 105/59 (74) 97 11/14/19 09:00 20 114/57 Mechanical Ventilator 40 11/14/19 09:00 69 20 114/57 (76) 97 11/14/19 08:30 74 21 127/72 (90) 97 11/14/19 08:20 73 173/84 11/14/19 08:05 75 24 40 11/14/19 08:00 98.2 87 21 173/84 (113) 100 11/14/19 08:00 99 11/14/19 08:00 40 11/14/19 08:00 40 173/84 Mechanical Ventilator 40 11/14/19 08:00 92 52 40 11/14/19 08:00 69 11/14/19 08:00 Mechanical Ventilator 11/14/19 07:55 40 11/14/19 07:30 71 19 40 11/14/19 07:30 71 22 101/64 (76) 98 11/14/19 07:30 20 101/64 Mechanical Ventilator 40 11/14/19 07:00 20 95/58 Mechanical Ventilator 40 11/14/19 07:00 69 20 95/58 (70) 97 11/14/19 06:30 66 19 11/14/19 06:30 68 19 103/55 (71) 97 11/14/19 06:00 68 20 97/55 (69) 98 11/14/19 06:00 20 95/55 40 11/14/19 05:30 68 20 102/53 (69) 98 11/14/19 05:04 71 22 124/65 (84) 98 11/14/19 05:00 14 121/96 Mechanical Ventilator 40 11/14/19 04:00 97.6 80 21 115/51 (72) 97 11/14/19 04:00 40 11/14/19 04:00 74 11/14/19 04:00 12 107/65 Mechanical Ventilator 40 11/14/19 04:00 Mechanical Ventilator 11/14/19 03:30 87 24 139/84 (102) 98 11/14/19 03:30 76 20 40 11/14/19 03:00 75 19 105/48 (67) 98 11/14/19 03:00 21 139/84 Mechanical Ventilator 40 11/14/19 02:30 83 20 114/60 (78) 98 11/14/19 02:00 19 114/60 Mechanical Ventilator 40 11/14/19 02:00 85 19 118/58 (78) 97 11/14/19 01:30 86 19 123/78 (93) 98 11/14/19 01:00 88 22 126/70 (88) 98 11/14/19 01:00 21 123/78 Mechanical Ventilator 40 11/14/19 00:30 86 19 150/92 (111) 97 11/14/19 00:00 82 11/14/19 00:00 Mechanical Ventilator 11/14/19 00:00 21 150/92 Mechanical Ventilator 40 11/14/19 00:00 40 11/14/19 00:00 98.4 91 18 137/78 (97) 97 11/13/19 23:30 90 22 137/64 (88) 97 11/13/19 23:30 83 20 40 11/13/19 23:00 22 137/64 Mechanical Ventilator 40 11/13/19 23:00 91 27 133/71 (91) 97 11/13/19 22:30 89 22 135/75 (95) 97 11/13/19 22:00 18 122/73 Mechanical Ventilator 40 11/13/19 22:00 90 18 122/73 (89) 97 11/13/19 21:30 93 16 140/65 (90) 97 7/24/20 21:00 92 18 128/74 (92) 97 11/13/19 21:00 17 140/65 Mechanical Ventilator 40 11/13/19 20:42 88 125/72 11/13/19 20:30 93 18 125/75 (92) 97 Intake and Output 11/13/19 11/14/19 19:00 07:00 Intake Total 1174.5 ml 1784 ml Output Total 590 ml 670 ml Balance 584.5 ml 1114 ml Free Water 100 ml 200 ml IV Total 754.5 ml 1044 ml Tube Feeding 320 ml 480 ml Other 60 ml Output Urine Total 590 ml 670 ml Laboratory Tests Test 11/14/19 03:30 11/14/19 04:00 11/14/19 04:19 11/14/19 12:54 D-Dimer 8.74 mg/L FEU (0.00-0.49) H White Blood Count 15.8 K/UL (4.8-10.8) H Red Blood Count 3.95 M/UL (4.20-5.40) L Hemoglobin 10.6 G/DL (12.0-16.0) L Hematocrit 36.0 % (37.0-47.0) L Mean Corpuscular Volume 91 FL (80-99) Mean Corpuscular Hemoglobin 26.8 PG (27.0-31.0) L Mean Corpuscular Hemoglobin Concent 29.4 G/DL (32.0-36.0) L Red Cell Distribution Width 17.1 % (11.6-14.8) H Platelet Count 207 K/UL (150-450) Mean Platelet Volume 6.7 FL (6.5-10.1) Neutrophils (%) (Auto) % (45.0-75.0) Lymphocytes (%) (Auto) % (20.0-45.0) Monocytes (%) (Auto) % (1.0-10.0) Eosinophils (%) (Auto) % (0.0-3.0) Basophils (%) (Auto) % (0.0-2.0) Differential Total Cells Counted 100 Neutrophils % (Manual) 90 % (45-75) H Lymphocytes % (Manual) 4 % (20-45) L Monocytes % (Manual) 6 % (1-10) Eosinophils % (Manual) 0 % (0-3) Basophils % (Manual) 0 % (0-2) Band Neutrophils 0 % (0-8) Platelet Estimate Adequate Platelet Morphology Normal Polychromasia 1+ Hypochromasia 1+ Anisocytosis 1+ Sodium Level 146 MMOL/L (136-145) H Potassium Level 5.4 MMOL/L (3.5-5.1) H Chloride Level 115 MMOL/L (98-107) H Carbon Dioxide Level 27 MMOL/L (21-32) Anion Gap 4 mmol/L (5-15) L Blood Urea Nitrogen 40 mg/dL (7-18) H Creatinine 1.2 MG/DL (0.55-1.30) Estimat Glomerular Filtration Rate 47.0 mL/min (>60) Glucose Level 357 MG/DL (74-106) H Uric Acid 6.0 MG/DL (2.6-7.2) Calcium Level 8.5 MG/DL (8.5-10.1) Phosphorus Level 3.2 MG/DL (2.5-4.9) Magnesium Level 2.4 MG/DL (1.8-2.4) Iron Level 29 ug/dL (50-175) L Total Iron Binding Capacity 346 ug/dL (250-450) Percent Iron Saturation 8 % (15-50) L Unsaturated Iron Binding 317 ug/dL (112-346) Ferritin 51 NG/ML (8-388) Total Bilirubin 0.9 MG/DL (0.2-1.0) Direct Bilirubin 0.5 MG/DL (0.0-0.3) H Gamma Glutamyl Transpeptidase 238 U/L (5-85) H Aspartate Amino Transf (AST/SGOT) 45 U/L (15-37) H Alanine Aminotransferase (ALT/SGPT) 40 U/L (12-78) Alkaline Phosphatase 208 U/L (46-116) H Lactate Dehydrogenase 373 U/L (81-234) H Total Creatine Kinase 36 U/L (26-308) C-Reactive Protein, Quantitative 1.7 mg/dL (0.00-0.90) H Pro-B-Type Natriuretic Peptide 5577 pg/mL (0-125) H Total Protein 6.5 G/DL (6.4-8.2) Albumin 2.2 G/DL (3.4-5.0) L Globulin 4.3 g/dL Albumin/Globulin Ratio 0.5 (1.0-2.7) L Vitamin B12 Level 1372 PG/ML (193-986) H Folate 7.9 NG/ML (8.6-58.9) L POC Whole Blood Glucose Pending 357 MG/DL (74-106) H Objective HEAD AND NECK: No JVD. OG tube Orally intubated LUNGS: Coarse rhonchi. CARDIOVASCULAR: Irregularly irregular. S1 and S2 with no gallop or murmur. ABDOMEN: Soft. EXTREMITIES: No pitting edema. Gabe Snell MD Nov 14, 2019 20:19
[2019-11-14] MEDS: Dyna-Hex 2% Top Sol 2oz TOPIC SCH (20:53)
[2019-11-14] MEDS: Miralax 17gm pkt ORAL SCH (20:53)
[2019-11-15] VITALS (43 sets, daily range): BP systolic 94–201; BP diastolic 27–111
[2019-11-15 05:18] LABS: HEMOGLOBIN 11.1 G/DL (12.0-16.0); MEAN CORPUSCULAR VOLUME 92 FL (80-99); PLATELET COUNT 268 K/UL (150-450); RED BLOOD COUNT 4.24 M/UL (4.20-5.40); RED CELL DISTRIBUTION WIDTH 16.9 % (11.6-14.8); WHITE BLOOD COUNT 20.7 K/UL (4.8-10.8)
[2019-11-15] MEDS: NovoLOG Insulin Flexpen SUBQ SCH ×3 (05:33→18:20)
[2019-11-15 05:52] LABS: PHOSPHORUS 3.4 MG/DL (2.5-4.9)
[2019-11-15 06:00] LABS: ALANINE AMINOTRANSFERASE 44 U/L (12-78); ALBUMIN 2.4 G/DL (3.4-5.0); ALBUMIN/GLOBULIN RATIO 0.6 (1.0-2.7); ALKALINE PHOSPHATASE 211 U/L (46-116); ANION GAP 2 mmol/L (5-15); ASPARTATE AMINO TRANSFERASE 41 U/L (15-37); BILIRUBIN,DIRECT 0.9 MG/DL (0.0-0.3); BILIRUBIN,TOTAL 1.1 MG/DL (0.2-1.0); BLOOD UREA NITROGEN 34 mg/dL (7-18); CALCIUM 8.4 MG/DL (8.5-10.1); CARBON DIOXIDE 34 MMOL/L (21-32); CHLORIDE 113 MMOL/L (98-107); CREATININE 0.9 MG/DL (0.55-1.30); POTASSIUM 4.6 MMOL/L (3.5-5.1); SODIUM 149 MMOL/L (136-145)
--- NOTE | 2019-11-15 08:17 | General Progress Note ---
Assessment/Plan Problem List: (1) Respiratory failure ICD Codes: J96.90 - Respiratory failure, unspecified, unspecified whether with hypoxia or hypercapnia SNOMED: 399103235 (2) 2019 novel coronavirus disease (COVID-19) ICD Codes: U07.1 - COVID-19 SNOMED: 753933455 (3) Multifocal pneumonia ICD Codes: J18.9 - Pneumonia, unspecified organism SNOMED: 216442547 (4) Afib ICD Codes: I48.91 - Unspecified atrial fibrillation SNOMED: 23261953 (5) CHF (congestive heart failure) ICD Codes: I50.9 - Heart failure, unspecified SNOMED: 06205581 (6) Diabetes ICD Codes: E11.9 - Type 2 diabetes mellitus without complications SNOMED: 16695805 (7) Fluid overload ICD Codes: E87.70 - Fluid overload, unspecified SNOMED: 23819825 (8) Epistaxis ICD Codes: R04.0 - Epistaxis SNOMED: 752600926 Status: unchanged Assessment/Plan: fu H&H prn blood transfusion NGTF no residuals iv fluid per nephrology will fu Subjective ROS Limited/Unobtainable: No Allergies: Coded Allergies: No Known Allergies (Unverified , 11/06/19) Objective Last 24 Hour Vital Signs Date Time Temp Pulse Resp B/P (MAP) Pulse Ox O2 Delivery O2 Flow Rate FiO2 11/15/19 08:00 Mechanical Ventilator 11/15/19 08:00 40 11/15/19 07:00 94 18 162/84 (110) 97 11/15/19 07:00 16 162/88 Mechanical Ventilator 40 11/15/19 06:55 101 23 40 11/15/19 06:30 95 10 147/88 (107) 96 11/15/19 06:30 66 19 11/15/19 06:00 15 136/73 Mechanical Ventilator 40 11/15/19 06:00 90 17 136/73 (94) 97 11/15/19 05:30 96 20 139/70 (93) 99 11/15/19 05:00 12 149/99 Mechanical Ventilator 40 11/15/19 05:00 96 10 169/79 (109) 96 11/15/19 04:39 94 13 181/87 (118) 95 11/15/19 04:30 106 23 176/111 (132) 11/15/19 04:00 12 141/75 Mechanical Ventilator 40 11/15/19 04:00 Mechanical Ventilator 11/15/19 04:00 98.3 87 16 141/75 (97) 100 11/15/19 04:00 40 11/15/19 04:00 80 11/15/19 03:30 88 17 141/85 (103) 100 11/15/19 03:02 97 18 40 11/15/19 03:00 12 156/99 Mechanical Ventilator 40 11/15/19 03:00 93 21 156/99 (118) 100 11/15/19 02:30 89 23 145/68 (93) 100 11/15/19 02:00 21 147/84 Mechanical Ventilator 40 11/15/19 02:00 87 21 147/84 (105) 100 11/15/19 01:30 88 21 139/73 (95) 100 11/15/19 01:00 21 142/84 Mechanical Ventilator 40 11/15/19 01:00 87 23 142/81 (101) 95 11/15/19 00:30 86 21 128/61 (83) 98 11/15/19 00:00 Mechanical Ventilator 11/15/19 00:00 98.2 86 20 140/74 (96) 99 11/15/19 00:00 40 11/15/19 00:00 20 140/74 Mechanical Ventilator 40 11/15/19 00:00 79 11/14/19 23:30 88 18 155/79 (104) 100 11/14/19 23:00 83 22 135/72 (93) 96 11/14/19 23:00 22 135/72 Mechanical Ventilator 40 11/14/19 22:41 78 18 40 11/14/19 22:30 77 18 117/65 (82) 100 11/14/19 22:00 77 18 112/64 (80) 100 11/14/19 22:00 18 112/64 Mechanical Ventilator 40 11/14/19 21:30 75 19 107/55 (72) 96 11/14/19 21:15 18 108/56 Mechanical Ventilator 40 11/14/19 21:00 74 18 108/56 (73) 99 11/14/19 21:00 74 99/56 11/14/19 21:00 18 108/56 Mechanical Ventilator 40 11/14/19 20:30 72 19 99/53 (68) 98 11/14/19 20:00 99.0 73 18 112/65 (81) 97 11/14/19 20:00 40 11/14/19 20:00 18 112/64 Mechanical Ventilator 40 11/14/19 20:00 Mechanical Ventilator 11/14/19 20:00 82 11/14/19 19:30 74 19 113/60 (77) 98 11/14/19 19:05 78 19 40 11/14/19 19:00 71 18 127/59 (81) 99 11/14/19 19:00 19 127/59 Mechanical Ventilator 40 11/14/19 18:30 76 19 125/64 (84) 98 11/14/19 18:00 75 10 112/61 (78) 98 11/14/19 18:00 20 112/61 Mechanical Ventilator 40 11/14/19 17:30 79 18 119/70 (86) 98 11/14/19 17:00 80 17 125/61 (82) 98 11/14/19 17:00 20 125/61 Mechanical Ventilator 40 11/14/19 16:30 85 18 148/72 (97) 97 11/14/19 16:00 Mechanical Ventilator 11/14/19 16:00 98.4 83 17 130/72 (91) 96 11/14/19 16:00 18 130/72 Mechanical Ventilator 40 11/14/19 16:00 73 11/14/19 16:00 40 11/14/19 15:30 80 15 135/59 (84) 96 11/14/19 15:03 18 120/72 Mechanical Ventilator 40 11/14/19 15:00 83 18 170/84 (112) 98 11/14/19 14:49 77 18 40 11/14/19 14:30 75 18 120/72 (88) 97 11/14/19 14:00 70 20 118/58 (78) 97 11/14/19 14:00 18 118/58 Mechanical Ventilator 40 11/14/19 13:30 67 18 109/63 (78) 96 11/14/19 13:00 74 18 116/62 (80) 96 11/14/19 13:00 18 116/62 Mechanical Ventilator 40 11/14/19 12:30 71 19 112/59 (76) 96 11/14/19 12:00 73 11/14/19 12:00 40 11/14/19 12:00 19 112/57 Mechanical Ventilator 40 11/14/19 12:00 98.3 72 19 112/57 (75) 96 11/14/19 12:00 Mechanical Ventilator 11/14/19 11:30 75 20 112/61 (78) 96 11/14/19 11:20 69 19 40 11/14/19 11:00 71 21 124/64 (84) 97 11/14/19 11:00 20 124/64 Mechanical Ventilator 40 11/14/19 10:30 70 22 106/58 (74) 96 11/14/19 10:00 20 108/56 Mechanical Ventilator 40 11/14/19 10:00 72 22 108/56 (73) 96 11/14/19 09:30 72 20 105/59 (74) 97 11/14/19 09:00 20 114/57 Mechanical Ventilator 40 11/14/19 09:00 69 20 114/57 (76) 97 11/14/19 08:30 74 21 127/72 (90) 97 11/14/19 08:20 73 173/84 Intake and Output 11/14/19 11/15/19 19:00 07:00 Intake Total 2230 ml 1714 ml Output Total 890 ml 605 ml Balance 1340 ml 1109 ml Free Water 200 ml IV Total 1250 ml 974 ml Tube Feeding 480 ml 480 ml Other 500 ml 60 ml Output Urine Total 890 ml 605 ml # Bowel Movements 1 Laboratory Tests 11/14/19 08:30: POC Whole Blood Glucose 301H 11/14/19 12:54: POC Whole Blood Glucose 357H 11/15/19 04:00: White Blood Count 20.7H, Red Blood Count 4.24, Hemoglobin 11.1L, Hematocrit 39.0 , Mean Corpuscular Volume 92, Mean Corpuscular Hemoglobin 26.1L, Mean Corpuscular Hemoglobin Concent 28.3L, Red Cell Distribution Width 16.9H, Platelet Count 268, Mean Platelet Volume 7.1, Neutrophils (%) (Auto) , Lymphocytes (%) (Auto) , Monocytes (%) (Auto) , Eosinophils (%) (Auto) , Basophils (%) (Auto) , Differential Total Cells Counted 100, Neutrophils % ( Manual) 86H, Lymphocytes % (Manual) 6L, Monocytes % (Manual) 8, Eosinophils % ( Manual) 0, Basophils % (Manual) 0, Band Neutrophils 0, Platelet Estimate Adequate, Platelet Morphology Normal, Hypochromasia 1+, Anisocytosis 1+, Sodium Level 149H, Potassium Level 4.6, Chloride Level 113H, Carbon Dioxide Level 34H, Anion Gap 2L, Blood Urea Nitrogen 34H, Creatinine 0.9, Estimat Glomerular Filtration Rate > 60, Glucose Level 370H, Calcium Level 8.4L, Phosphorus Level 3.4, Magnesium Level 2.3, Total Bilirubin 1.1H, Direct Bilirubin 0.9H, Aspartate Amino Transf (AST/SGOT) 41H, Alanine Aminotransferase (ALT/SGPT) 44, Alkaline Phosphatase 211H, C-Reactive Protein, Quantitative 1.7H, Pro-B-Type Natriuretic Peptide 3673H, Total Protein 6.5, Albumin 2.4L, Globulin 4.1, Albumin/Globulin Ratio 0.6L Height (Feet): 5 Height (Inches): 3.00 Weight (Pounds): 344 General Appearance: no apparent distress EENT: PERRL/EOMI Neck: supple Cardiovascular: normal rate Respiratory/Chest: decreased breath sounds Abdomen: hypoactive bowel sounds Extremities: non-tender Case Patel MD Nov 15, 2019 08:17
[2019-11-15] MEDS ORDERED: NS 275ml ONE (08:30)
[2019-11-15] MEDS: dexAMETHasone 10mg/ml Inj IV SCH (10:06)
[2019-11-15] MEDS: Lactulose 20gm/30ml UDC ORAL SCH ×3 (10:06→17:47)
[2019-11-15] MEDS: Eliquis 5mg tablet NGT SCH ×2 (10:07→17:47)
[2019-11-15] MEDS: Docusate 100mg/10ml Liq NG SCH ×3 (10:08→17:47)
[2019-11-15] MEDS: Levemir Flexpen SUBQ SCH ×2 (10:20→21:44)
--- NOTE | 2019-11-15 10:54 | Pulmonolgy Critical Care Note ---
Critical Care - Asmt/Plan Assessment/Plan: Pulmonary Critical Care Progress Note Subjective ROS Limited/Unobtainable: No Interval Events: Intubated; previous epistaxis, has not recurred Did not tolerate weaning Coded Allergies: No Known Allergies (Unverified , 11/06/19) All Systems: reviewed and negative except above Objective Vital Signs Noted Deferred Covid 19 Laboratory Tests noted Assessment/Plan IMPRESSION: 1. COVID-19 pneumonia. 2. Diabetes mellitus and hypertension. 3. Lactic acidemia. 4. Previous epistaxis 5. Respiratory failure - wean as tolerated 6. Leukocytosis 7. Anemia 8. Atrial Fibrillation - rate controlled PLAN: Wean as tolerated ABG/CXR PRN Continue remdesivir and steroids per ID Critical Care - Objective Last 24 Hour Vital Signs Date Time Temp Pulse Resp B/P (MAP) Pulse Ox O2 Delivery O2 Flow Rate FiO2 11/15/19 10:07 94 164/76 11/15/19 08:00 Mechanical Ventilator 11/15/19 08:00 40 11/15/19 07:00 94 18 162/84 (110) 97 11/15/19 07:00 16 162/88 Mechanical Ventilator 40 11/15/19 06:55 101 23 40 11/15/19 06:30 95 10 147/88 (107) 96 11/15/19 06:30 66 19 11/15/19 06:00 15 136/73 Mechanical Ventilator 40 11/15/19 06:00 90 17 136/73 (94) 97 11/15/19 05:30 96 20 139/70 (93) 99 11/15/19 05:00 12 149/99 Mechanical Ventilator 40 11/15/19 05:00 96 10 169/79 (109) 96 11/15/19 04:39 94 13 181/87 (118) 95 11/15/19 04:30 106 23 176/111 (132) 11/15/19 04:00 12 141/75 Mechanical Ventilator 40 11/15/19 04:00 Mechanical Ventilator 11/15/19 04:00 98.3 87 16 141/75 (97) 100 11/15/19 04:00 40 11/15/19 04:00 80 11/15/19 03:30 88 17 141/85 (103) 100 11/15/19 03:02 97 18 40 11/15/19 03:00 12 156/99 Mechanical Ventilator 40 11/15/19 03:00 93 21 156/99 (118) 100 11/15/19 02:30 89 23 145/68 (93) 100 11/15/19 02:00 21 147/84 Mechanical Ventilator 40 11/15/19 02:00 87 21 147/84 (105) 100 11/15/19 01:30 88 21 139/73 (95) 100 11/15/19 01:00 21 142/84 Mechanical Ventilator 40 11/15/19 01:00 87 23 142/81 (101) 95 11/15/19 00:30 86 21 128/61 (83) 98 11/15/19 00:00 Mechanical Ventilator 11/15/19 00:00 98.2 86 20 140/74 (96) 99 11/15/19 00:00 40 11/15/19 00:00 20 140/74 Mechanical Ventilator 40 11/15/19 00:00 79 11/14/19 23:30 88 18 155/79 (104) 100 11/14/19 23:00 83 22 135/72 (93) 96 11/14/19 23:00 22 135/72 Mechanical Ventilator 40 11/14/19 22:41 78 18 40 11/14/19 22:30 77 18 117/65 (82) 100 11/14/19 22:00 77 18 112/64 (80) 100 11/14/19 22:00 18 112/64 Mechanical Ventilator 40 11/14/19 21:30 75 19 107/55 (72) 96 11/14/19 21:15 18 108/56 Mechanical Ventilator 40 11/14/19 21:00 74 18 108/56 (73) 99 11/14/19 21:00 74 99/56 11/14/19 21:00 18 108/56 Mechanical Ventilator 40 11/14/19 20:30 72 19 99/53 (68) 98 11/14/19 20:00 99.0 73 18 112/65 (81) 97 11/14/19 20:00 40 11/14/19 20:00 18 112/64 Mechanical Ventilator 40 11/14/19 20:00 Mechanical Ventilator 11/14/19 20:00 82 11/14/19 19:30 74 19 113/60 (77) 98 11/14/19 19:05 78 19 40 11/14/19 19:00 71 18 127/59 (81) 99 11/14/19 19:00 19 127/59 Mechanical Ventilator 40 11/14/19 18:30 76 19 125/64 (84) 98 11/14/19 18:00 75 10 112/61 (78) 98 11/14/19 18:00 20 112/61 Mechanical Ventilator 40 11/14/19 17:30 79 18 119/70 (86) 98 11/14/19 17:00 80 17 125/61 (82) 98 11/14/19 17:00 20 125/61 Mechanical Ventilator 40 11/14/19 16:30 85 18 148/72 (97) 97 11/14/19 16:00 Mechanical Ventilator 11/14/19 16:00 98.4 83 17 130/72 (91) 96 11/14/19 16:00 18 130/72 Mechanical Ventilator 40 11/14/19 16:00 73 11/14/19 16:00 40 11/14/19 15:30 80 15 135/59 (84) 96 11/14/19 15:03 18 120/72 Mechanical Ventilator 40 11/14/19 15:00 83 18 170/84 (112) 98 11/14/19 14:49 77 18 40 11/14/19 14:30 75 18 120/72 (88) 97 11/14/19 14:00 70 20 118/58 (78) 97 11/14/19 14:00 18 118/58 Mechanical Ventilator 40 11/14/19 13:30 67 18 109/63 (78) 96 11/14/19 13:00 74 18 116/62 (80) 96 11/14/19 13:00 18 116/62 Mechanical Ventilator 40 11/14/19 12:30 71 19 112/59 (76) 96 11/14/19 12:00 73 11/14/19 12:00 40 11/14/19 12:00 19 112/57 Mechanical Ventilator 40 11/14/19 12:00 98.3 72 19 112/57 (75) 96 11/14/19 12:00 Mechanical Ventilator 11/14/19 11:30 75 20 112/61 (78) 96 11/14/19 11:20 69 19 40 11/14/19 11:00 71 21 124/64 (84) 97 11/14/19 11:00 20 124/64 Mechanical Ventilator 40 Accucheck: 289 Critical Care - Subjective ROS Limited/Unobtainable: Yes Condition: stable FI02: 40 Vent Support Breath Rate: 18 Vent Support Mode: AC Vent Tidal Volume: 500 Sputum Amount: Small PEEP: 5.0 PIP: 32 Tube Feeding Amount: 40 I&O: Intake and Output 11/14/19 11/15/19 19:00 07:00 Intake Total 2230 ml 1714 ml Output Total 890 ml 605 ml Balance 1340 ml 1109 ml Free Water 200 ml IV Total 1250 ml 974 ml Tube Feeding 480 ml 480 ml Other 500 ml 60 ml Output Urine Total 890 ml 605 ml # Bowel Movements 1 ET-Tube: 7.5 ET Position: 23 Inderjit Hunter MD Nov 15, 2019 10:54
--- NOTE | 2019-11-15 11:02 | Nephrology Progress Note ---
Assessment/Plan Problem List: (1) Electrolyte imbalance (2) Diabetes (3) 2019 novel coronavirus disease (COVID-19) (4) Respiratory failure Assessment 1. COVID-19 pneumonia. 2. Diabetes and hyperglycemia 3. Hypertension. 4. Hypoxic respiratory failure 5. Morbid obesity with BMI of 65.5 6. Nasal bleeding 7. Lactic acidosis 8. Hyperkalemia Plan Discussed with RN Change IV to D5W 75 cc an hour Levemir 20 units subcu every 12 hours Kayexalate for high potassium as needed Monitor electrolytes and renal parameters Tight blood sugar control, long-acting insulin as needed Keep the blood pressure in check Per orders Subjective ROS Limited/Unobtainable: Yes Objective Objective Last 24 Hour Vital Signs Date Time Temp Pulse Resp B/P (MAP) Pulse Ox O2 Delivery O2 Flow Rate FiO2 11/15/19 10:07 94 164/76 11/15/19 08:00 Mechanical Ventilator 11/15/19 08:00 40 11/15/19 07:00 94 18 162/84 (110) 97 11/15/19 07:00 16 162/88 Mechanical Ventilator 40 11/15/19 06:55 101 23 40 11/15/19 06:30 95 10 147/88 (107) 96 11/15/19 06:30 66 19 11/15/19 06:00 15 136/73 Mechanical Ventilator 40 11/15/19 06:00 90 17 136/73 (94) 97 11/15/19 05:30 96 20 139/70 (93) 99 11/15/19 05:00 12 149/99 Mechanical Ventilator 40 11/15/19 05:00 96 10 169/79 (109) 96 11/15/19 04:39 94 13 181/87 (118) 95 11/15/19 04:30 106 23 176/111 (132) 11/15/19 04:00 12 141/75 Mechanical Ventilator 40 11/15/19 04:00 Mechanical Ventilator 11/15/19 04:00 98.3 87 16 141/75 (97) 100 11/15/19 04:00 40 11/15/19 04:00 80 11/15/19 03:30 88 17 141/85 (103) 100 11/15/19 03:02 97 18 40 11/15/19 03:00 12 156/99 Mechanical Ventilator 40 7/26/20 03:00 93 21 156/99 (118) 100 11/15/19 02:30 89 23 145/68 (93) 100 11/15/19 02:00 21 147/84 Mechanical Ventilator 40 11/15/19 02:00 87 21 147/84 (105) 100 11/15/19 01:30 88 21 139/73 (95) 100 11/15/19 01:00 21 142/84 Mechanical Ventilator 40 11/15/19 01:00 87 23 142/81 (101) 95 11/15/19 00:30 86 21 128/61 (83) 98 11/15/19 00:00 Mechanical Ventilator 11/15/19 00:00 98.2 86 20 140/74 (96) 99 11/15/19 00:00 40 11/15/19 00:00 20 140/74 Mechanical Ventilator 40 11/15/19 00:00 79 11/14/19 23:30 88 18 155/79 (104) 100 11/14/19 23:00 83 22 135/72 (93) 96 11/14/19 23:00 22 135/72 Mechanical Ventilator 40 11/14/19 22:41 78 18 40 11/14/19 22:30 77 18 117/65 (82) 100 11/14/19 22:00 77 18 112/64 (80) 100 11/14/19 22:00 18 112/64 Mechanical Ventilator 40 11/14/19 21:30 75 19 107/55 (72) 96 11/14/19 21:15 18 108/56 Mechanical Ventilator 40 11/14/19 21:00 74 18 108/56 (73) 99 11/14/19 21:00 74 99/56 11/14/19 21:00 18 108/56 Mechanical Ventilator 40 11/14/19 20:30 72 19 99/53 (68) 98 11/14/19 20:00 99.0 73 18 112/65 (81) 97 11/14/19 20:00 40 11/14/19 20:00 18 112/64 Mechanical Ventilator 40 11/14/19 20:00 Mechanical Ventilator 11/14/19 20:00 82 11/14/19 19:30 74 19 113/60 (77) 98 11/14/19 19:05 78 19 40 11/14/19 19:00 71 18 127/59 (81) 99 11/14/19 19:00 19 127/59 Mechanical Ventilator 40 11/14/19 18:30 76 19 125/64 (84) 98 11/14/19 18:00 75 10 112/61 (78) 98 11/14/19 18:00 20 112/61 Mechanical Ventilator 40 11/14/19 17:30 79 18 119/70 (86) 98 11/14/19 17:00 80 17 125/61 (82) 98 11/14/19 17:00 20 125/61 Mechanical Ventilator 40 11/14/19 16:30 85 18 148/72 (97) 97 11/14/19 16:00 Mechanical Ventilator 11/14/19 16:00 98.4 83 17 130/72 (91) 96 11/14/19 16:00 18 130/72 Mechanical Ventilator 40 11/14/19 16:00 73 11/14/19 16:00 40 11/14/19 15:30 80 15 135/59 (84) 96 11/14/19 15:03 18 120/72 Mechanical Ventilator 40 11/14/19 15:00 83 18 170/84 (112) 98 11/14/19 14:49 77 18 40 11/14/19 14:30 75 18 120/72 (88) 97 11/14/19 14:00 70 20 118/58 (78) 97 11/14/19 14:00 18 118/58 Mechanical Ventilator 40 11/14/19 13:30 67 18 109/63 (78) 96 11/14/19 13:00 74 18 116/62 (80) 96 11/14/19 13:00 18 116/62 Mechanical Ventilator 40 11/14/19 12:30 71 19 112/59 (76) 96 11/14/19 12:00 73 11/14/19 12:00 40 11/14/19 12:00 19 112/57 Mechanical Ventilator 40 11/14/19 12:00 98.3 72 19 112/57 (75) 96 11/14/19 12:00 Mechanical Ventilator 11/14/19 11:30 75 20 112/61 (78) 96 11/14/19 11:20 69 19 40 11/14/19 11:00 71 21 124/64 (84) 97 11/14/19 11:00 20 124/64 Mechanical Ventilator 40 Intake and Output 11/14/19 11/15/19 19:00 07:00 Intake Total 2230 ml 1714 ml Output Total 890 ml 605 ml Balance 1340 ml 1109 ml Free Water 200 ml IV Total 1250 ml 974 ml Tube Feeding 480 ml 480 ml Other 500 ml 60 ml Output Urine Total 890 ml 605 ml # Bowel Movements 1 Laboratory Tests 11/14/19 12:54: POC Whole Blood Glucose 357H 11/15/19 04:00: White Blood Count 20.7H, Red Blood Count 4.24, Hemoglobin 11.1L, Hematocrit 39.0 , Mean Corpuscular Volume 92, Mean Corpuscular Hemoglobin 26.1L, Mean Corpuscular Hemoglobin Concent 28.3L, Red Cell Distribution Width 16.9H, Platelet Count 268, Mean Platelet Volume 7.1, Neutrophils (%) (Auto) , Lymphocytes (%) (Auto) , Monocytes (%) (Auto) , Eosinophils (%) (Auto) , Basophils (%) (Auto) , Differential Total Cells Counted 100, Neutrophils % ( Manual) 86H, Lymphocytes % (Manual) 6L, Monocytes % (Manual) 8, Eosinophils % ( Manual) 0, Basophils % (Manual) 0, Band Neutrophils 0, Platelet Estimate Adequate, Platelet Morphology Normal, Hypochromasia 1+, Anisocytosis 1+, Sodium Level 149H, Potassium Level 4.6, Chloride Level 113H, Carbon Dioxide Level 34H, Anion Gap 2L, Blood Urea Nitrogen 34H, Creatinine 0.9, Estimat Glomerular Filtration Rate > 60, Glucose Level 370H, Calcium Level 8.4L, Phosphorus Level 3.4, Magnesium Level 2.3, Total Bilirubin 1.1H, Direct Bilirubin 0.9H, Aspartate Amino Transf (AST/SGOT) 41H, Alanine Aminotransferase (ALT/SGPT) 44, Alkaline Phosphatase 211H, C-Reactive Protein, Quantitative 1.7H, Pro-B-Type Natriuretic Peptide 3673H, Total Protein 6.5, Albumin 2.4L, Globulin 4.1, Albumin/Globulin Ratio 0.6L Height (Feet): 5 Height (Inches): 3.00 Weight (Pounds): 344 General Appearance: no apparent distress EENT: other Cardiovascular: tachycardia Respiratory/Chest: decreased breath sounds Abdomen: soft Papa Young MD Nov 15, 2019 11:02
--- NOTE | 2019-11-15 11:46 | Infectious Diseases Prog Note ---
Assessment/Plan Assessment/Plan A: 1. COVID-19 pneumonia. 2. Diabetes with hyper 3. Hypertension. 4. Hypoxic respiratory failure 5. Morbid obesity 6. Nasal bleeding 7. Lactic acidosis 8. Hyperkalemia 9. Leukocytosis PLAN: 1. Continue remdesivir X 1 day 2. Continue dexamethasone, 3. Continue isolation. Subjective ROS Limited/Unobtainable: Yes Constitutional: Denies: fever Neurologic: Reports: other - on restraint Allergies: Coded Allergies: No Known Allergies (Unverified , 11/06/19) Objective Last 24 Hour Vital Signs Date Time Temp Pulse Resp B/P (MAP) Pulse Ox O2 Delivery O2 Flow Rate FiO2 11/15/19 11:22 95 24 40 40 11/15/19 11:00 19 172/68 Mechanical Ventilator 40 11/15/19 10:07 94 164/76 11/15/19 10:00 19 157/75 Mechanical Ventilator 40 11/15/19 09:00 18 136/65 Mechanical Ventilator 40 11/15/19 08:00 Mechanical Ventilator 11/15/19 08:00 17 137/72 Mechanical Ventilator 40 11/15/19 08:00 40 11/15/19 07:00 94 18 162/84 (110) 97 11/15/19 07:00 16 162/88 Mechanical Ventilator 40 11/15/19 06:55 101 23 40 11/15/19 06:30 95 10 147/88 (107) 96 11/15/19 06:30 66 19 11/15/19 06:00 15 136/73 Mechanical Ventilator 40 11/15/19 06:00 90 17 136/73 (94) 97 11/15/19 05:30 96 20 139/70 (93) 99 11/15/19 05:00 12 149/99 Mechanical Ventilator 40 11/15/19 05:00 96 10 169/79 (109) 96 11/15/19 04:39 94 13 181/87 (118) 95 11/15/19 04:30 106 23 176/111 (132) 11/15/19 04:00 12 141/75 Mechanical Ventilator 40 11/15/19 04:00 Mechanical Ventilator 11/15/19 04:00 98.3 87 16 141/75 (97) 100 11/15/19 04:00 40 11/15/19 04:00 80 11/15/19 03:30 88 17 141/85 (103) 100 11/15/19 03:02 97 18 40 11/15/19 03:00 12 156/99 Mechanical Ventilator 40 11/15/19 03:00 93 21 156/99 (118) 100 11/15/19 02:30 89 23 145/68 (93) 100 11/15/19 02:00 21 147/84 Mechanical Ventilator 40 11/15/19 02:00 87 21 147/84 (105) 100 11/15/19 01:30 88 21 139/73 (95) 100 11/15/19 01:00 21 142/84 Mechanical Ventilator 40 11/15/19 01:00 87 23 142/81 (101) 95 11/15/19 00:30 86 21 128/61 (83) 98 11/15/19 00:00 Mechanical Ventilator 11/15/19 00:00 98.2 86 20 140/74 (96) 99 11/15/19 00:00 40 11/15/19 00:00 20 140/74 Mechanical Ventilator 40 11/15/19 00:00 79 11/14/19 23:30 88 18 155/79 (104) 100 11/14/19 23:00 83 22 135/72 (93) 96 11/14/19 23:00 22 135/72 Mechanical Ventilator 40 11/14/19 22:41 78 18 40 11/14/19 22:30 77 18 117/65 (82) 100 11/14/19 22:00 77 18 112/64 (80) 100 11/14/19 22:00 18 112/64 Mechanical Ventilator 40 11/14/19 21:30 75 19 107/55 (72) 96 11/14/19 21:15 18 108/56 Mechanical Ventilator 40 11/14/19 21:00 74 18 108/56 (73) 99 11/14/19 21:00 74 99/56 11/14/19 21:00 18 108/56 Mechanical Ventilator 40 11/14/19 20:30 72 19 99/53 (68) 98 11/14/19 20:00 99.0 73 18 112/65 (81) 97 11/14/19 20:00 40 11/14/19 20:00 18 112/64 Mechanical Ventilator 40 11/14/19 20:00 Mechanical Ventilator 11/14/19 20:00 82 7/25/20 19:30 74 19 113/60 (77) 98 11/14/19 19:05 78 19 40 11/14/19 19:00 71 18 127/59 (81) 99 11/14/19 19:00 19 127/59 Mechanical Ventilator 40 11/14/19 18:30 76 19 125/64 (84) 98 11/14/19 18:00 75 10 112/61 (78) 98 11/14/19 18:00 20 112/61 Mechanical Ventilator 40 11/14/19 17:30 79 18 119/70 (86) 98 11/14/19 17:00 80 17 125/61 (82) 98 11/14/19 17:00 20 125/61 Mechanical Ventilator 40 11/14/19 16:30 85 18 148/72 (97) 97 11/14/19 16:00 Mechanical Ventilator 11/14/19 16:00 98.4 83 17 130/72 (91) 96 11/14/19 16:00 18 130/72 Mechanical Ventilator 40 11/14/19 16:00 73 11/14/19 16:00 40 11/14/19 15:30 80 15 135/59 (84) 96 11/14/19 15:03 18 120/72 Mechanical Ventilator 40 11/14/19 15:00 83 18 170/84 (112) 98 11/14/19 14:49 77 18 40 11/14/19 14:30 75 18 120/72 (88) 97 11/14/19 14:00 70 20 118/58 (78) 97 11/14/19 14:00 18 118/58 Mechanical Ventilator 40 11/14/19 13:30 67 18 109/63 (78) 96 11/14/19 13:00 74 18 116/62 (80) 96 11/14/19 13:00 18 116/62 Mechanical Ventilator 40 11/14/19 12:30 71 19 112/59 (76) 96 11/14/19 12:00 73 11/14/19 12:00 40 11/14/19 12:00 19 112/57 Mechanical Ventilator 40 11/14/19 12:00 98.3 72 19 112/57 (75) 96 11/14/19 12:00 Mechanical Ventilator Height (Feet): 5 Height (Inches): 3.00 Weight (Pounds): 344 HEENT: other - orally intubated Respiratory/Chest: other - on ventilator Cardiovascular: normal rate Abdomen: soft, non tender, other - NG tube feeding Extremities: other - edema Neurologic/Psychiatric: aphasia Laboratory Tests Test 11/14/19 12:54 11/15/19 04:00 POC Whole Blood Glucose 357 MG/DL (74-106) H White Blood Count 20.7 K/UL (4.8-10.8) H Red Blood Count 4.24 M/UL (4.20-5.40) Hemoglobin 11.1 G/DL (12.0-16.0) L Hematocrit 39.0 % (37.0-47.0) Mean Corpuscular Volume 92 FL (80-99) Mean Corpuscular Hemoglobin 26.1 PG (27.0-31.0) L Mean Corpuscular Hemoglobin Concent 28.3 G/DL (32.0-36.0) L Red Cell Distribution Width 16.9 % (11.6-14.8) H Platelet Count 268 K/UL (150-450) Mean Platelet Volume 7.1 FL (6.5-10.1) Neutrophils (%) (Auto) % (45.0-75.0) Lymphocytes (%) (Auto) % (20.0-45.0) Monocytes (%) (Auto) % (1.0-10.0) Eosinophils (%) (Auto) % (0.0-3.0) Basophils (%) (Auto) % (0.0-2.0) Differential Total Cells Counted 100 Neutrophils % (Manual) 86 % (45-75) H Lymphocytes % (Manual) 6 % (20-45) L Monocytes % (Manual) 8 % (1-10) Eosinophils % (Manual) 0 % (0-3) Basophils % (Manual) 0 % (0-2) Band Neutrophils 0 % (0-8) Platelet Estimate Adequate Platelet Morphology Normal Hypochromasia 1+ Anisocytosis 1+ Sodium Level 149 MMOL/L (136-145) H Potassium Level 4.6 MMOL/L (3.5-5.1) Chloride Level 113 MMOL/L (98-107) H Carbon Dioxide Level 34 MMOL/L (21-32) H Anion Gap 2 mmol/L (5-15) L Blood Urea Nitrogen 34 mg/dL (7-18) H Creatinine 0.9 MG/DL (0.55-1.30) Estimat Glomerular Filtration Rate > 60 mL/min (>60) Glucose Level 370 MG/DL (74-106) H Calcium Level 8.4 MG/DL (8.5-10.1) L Phosphorus Level 3.4 MG/DL (2.5-4.9) Magnesium Level 2.3 MG/DL (1.8-2.4) Total Bilirubin 1.1 MG/DL (0.2-1.0) H Direct Bilirubin 0.9 MG/DL (0.0-0.3) H Aspartate Amino Transf (AST/SGOT) 41 U/L (15-37) H Alanine Aminotransferase (ALT/SGPT) 44 U/L (12-78) Alkaline Phosphatase 211 U/L (46-116) H C-Reactive Protein, Quantitative 1.7 mg/dL (0.00-0.90) H Pro-B-Type Natriuretic Peptide 3673 pg/mL (0-125) H Total Protein 6.5 G/DL (6.4-8.2) Albumin 2.4 G/DL (3.4-5.0) L Globulin 4.1 g/dL Albumin/Globulin Ratio 0.6 (1.0-2.7) L Current Medications Medications (Trade) Dose Ordered Sig/Robyn Route PRN Reason Start Time Stop Time Status Last Admin Dose Admin Acetaminophen (Tylenol) 650 mg Q6H PRN NG Temp >100.5 11/12/19 00:15 12/12/19 00:14 11/12/19 00:22 Apixaban (Eliquis) 5 mg BID NGT 11/14/19 09:00 02/12/20 08:59 11/15/19 10:07 Chlorhexidine Gluconate (Miya-Hex 2%) 1 applic DAILY@2000 TOPIC 11/08/19 21:30 02/06/20 21:29 11/14/19 20:53 Clonidine HCl (Catapres Tab) 0.1 mg Q4H PRN NG For High Blood Pressure 11/13/19 17:00 02/09/20 10:59 Dexamethasone Sodium Phosphate (Decadron 10mg/ ml Inj) 6 mg DAILY IV 11/09/19 09:00 02/06/20 09:14 11/15/19 10:06 Dextrose 1,000 ml @ 75 mls/hr [id number] IV 11/14/19 08:15 12/14/19 08:14 11/15/19 10:20 Dextrose (Dextrose 50%) 25 ml Q30M PRN IV Hypoglycemia 11/08/19 12:30 02/05/20 02:59 Dextrose (Dextrose 50%) 50 ml Q30M PRN IV Hypoglycemia 11/08/19 12:30 02/05/20 02:59 Docusate Sodium (Colace) 100 mg THREE TIMES A DAY NG 11/14/19 09:00 12/14/19 08:59 11/15/19 10:08 Famotidine (Pepcid I.v.) 20 mg Q12HR IVP 11/08/19 15:30 12/08/19 15:29 11/15/19 10:06 Fentanyl Citrate 250 ml @ 0 mls/hr Q24H IV 11/08/19 12:29 02/06/20 12:28 11/14/19 15:03 Folic Acid (Folate) 2 mg DAILY GT 11/15/19 09:00 12/15/19 08:59 11/15/19 10:07 Insulin Aspart (NovoLOG) EVERY 6 HOURS SUBQ 11/15/19 12:00 02/11/20 20:59 Insulin Detemir (Levemir) 20 units Q12HR SUBQ 11/15/19 21:00 02/11/20 20:59 Lactulose (Cephulac) 20 gm THREE TIMES A DAY ORAL 11/13/19 18:00 12/13/19 17:59 11/15/19 10:06 Lorazepam (Ativan 2mg/ml 1ml) 1 mg Q4H PRN IV For Anxiety 11/14/19 10:00 11/21/19 09:59 Metoprolol Tartrate (Lopressor) 25 mg Q8HR NG 11/15/19 14:00 02/09/20 10:59 Polyethylene Glycol (Miralax) 17 gm BEDTIME ORAL 11/13/19 21:00 12/13/19 20:59 11/14/19 20:53 Remdesivir 100 mg/ Sodium Chloride 250 ml @ 250 mls/hr Q24H IV 11/12/19 13:00 11/16/19 13:59 11/14/19 12:48 Jose Hernandez MD Nov 15, 2019 11:46
--- NOTE | 2019-11-15 12:23 | Surgery Progress Note ---
Surgery Progress Note Subjective Procedure Performed Hemostasis of left nostril hemorrhage emergency Additional Comments worsening leukocytosis weaning vent exam stable no bleeding on anticoag Objective Last 24 Hour Vital Signs Date Time Temp Pulse Resp B/P (MAP) Pulse Ox O2 Delivery O2 Flow Rate FiO2 11/15/19 12:15 145 34 40 11/15/19 11:30 103 24 201/89 (126) 98 11/15/19 11:22 95 24 40 40 11/15/19 11:00 89 19 172/68 (102) 98 11/15/19 11:00 19 172/68 Mechanical Ventilator 40 11/15/19 10:30 101 22 157/75 (102) 97 11/15/19 10:07 94 164/76 11/15/19 10:00 19 157/75 Mechanical Ventilator 40 11/15/19 10:00 101 19 164/76 (105) 98 11/15/19 09:30 91 18 136/65 (88) 98 11/15/19 09:00 89 18 127/59 (81) 98 11/15/19 09:00 18 136/65 Mechanical Ventilator 40 11/15/19 08:30 89 15 137/72 (93) 97 11/15/19 08:00 91 11/15/19 08:00 Mechanical Ventilator 11/15/19 08:00 17 137/72 Mechanical Ventilator 40 11/15/19 08:00 40 11/15/19 08:00 98.2 91 18 123/76 (92) 97 11/15/19 07:00 94 18 162/84 (110) 97 11/15/19 07:00 16 162/88 Mechanical Ventilator 40 11/15/19 06:55 101 23 40 11/15/19 06:30 95 10 147/88 (107) 96 11/15/19 06:30 66 19 11/15/19 06:00 15 136/73 Mechanical Ventilator 40 11/15/19 06:00 90 17 136/73 (94) 97 11/15/19 05:30 96 20 139/70 (93) 99 11/15/19 05:00 12 149/99 Mechanical Ventilator 40 11/15/19 05:00 96 10 169/79 (109) 96 11/15/19 04:39 94 13 181/87 (118) 95 11/15/19 04:30 106 23 176/111 (132) 11/15/19 04:00 12 141/75 Mechanical Ventilator 40 11/15/19 04:00 Mechanical Ventilator 11/15/19 04:00 98.3 87 16 141/75 (97) 100 11/15/19 04:00 40 11/15/19 04:00 80 11/15/19 03:30 88 17 141/85 (103) 100 11/15/19 03:02 97 18 40 11/15/19 03:00 12 156/99 Mechanical Ventilator 40 11/15/19 03:00 93 21 156/99 (118) 100 11/15/19 02:30 89 23 145/68 (93) 100 11/15/19 02:00 21 147/84 Mechanical Ventilator 40 11/15/19 02:00 87 21 147/84 (105) 100 11/15/19 01:30 88 21 139/73 (95) 100 11/15/19 01:00 21 142/84 Mechanical Ventilator 40 11/15/19 01:00 87 23 142/81 (101) 95 11/15/19 00:30 86 21 128/61 (83) 98 11/15/19 00:00 Mechanical Ventilator 11/15/19 00:00 98.2 86 20 140/74 (96) 99 11/15/19 00:00 40 11/15/19 00:00 20 140/74 Mechanical Ventilator 40 11/15/19 00:00 79 11/14/19 23:30 88 18 155/79 (104) 100 11/14/19 23:00 83 22 135/72 (93) 96 11/14/19 23:00 22 135/72 Mechanical Ventilator 40 11/14/19 22:41 78 18 40 11/14/19 22:30 77 18 117/65 (82) 100 11/14/19 22:00 77 18 112/64 (80) 100 11/14/19 22:00 18 112/64 Mechanical Ventilator 40 11/14/19 21:30 75 19 107/55 (72) 96 11/14/19 21:15 18 108/56 Mechanical Ventilator 40 11/14/19 21:00 74 18 108/56 (73) 99 11/14/19 21:00 74 99/56 11/14/19 21:00 18 108/56 Mechanical Ventilator 40 11/14/19 20:30 72 19 99/53 (68) 98 11/14/19 20:00 99.0 73 18 112/65 (81) 97 11/14/19 20:00 40 11/14/19 20:00 18 112/64 Mechanical Ventilator 40 11/14/19 20:00 Mechanical Ventilator 11/14/19 20:00 82 11/14/19 19:30 74 19 113/60 (77) 98 11/14/19 19:05 78 19 40 11/14/19 19:00 71 18 127/59 (81) 99 11/14/19 19:00 19 127/59 Mechanical Ventilator 40 11/14/19 18:30 76 19 125/64 (84) 98 11/14/19 18:00 75 10 112/61 (78) 98 11/14/19 18:00 20 112/61 Mechanical Ventilator 40 11/14/19 17:30 79 18 119/70 (86) 98 11/14/19 17:00 80 17 125/61 (82) 98 11/14/19 17:00 20 125/61 Mechanical Ventilator 40 11/14/19 16:30 85 18 148/72 (97) 97 11/14/19 16:00 Mechanical Ventilator 11/14/19 16:00 98.4 83 17 130/72 (91) 96 11/14/19 16:00 18 130/72 Mechanical Ventilator 40 11/14/19 16:00 73 11/14/19 16:00 40 11/14/19 15:30 80 15 135/59 (84) 96 11/14/19 15:03 18 120/72 Mechanical Ventilator 40 11/14/19 15:00 83 18 170/84 (112) 98 11/14/19 14:49 77 18 40 11/14/19 14:30 75 18 120/72 (88) 97 11/14/19 14:00 70 20 118/58 (78) 97 11/14/19 14:00 18 118/58 Mechanical Ventilator 40 11/14/19 13:30 67 18 109/63 (78) 96 11/14/19 13:00 74 18 116/62 (80) 96 11/14/19 13:00 18 116/62 Mechanical Ventilator 40 11/14/19 12:30 71 19 112/59 (76) 96 I&O Intake and Output 11/14/19 11/15/19 19:00 07:00 Intake Total 2230 ml 1714 ml Output Total 890 ml 605 ml Balance 1340 ml 1109 ml Free Water 200 ml IV Total 1250 ml 974 ml Tube Feeding 480 ml 480 ml Other 500 ml 60 ml Output Urine Total 890 ml 605 ml # Bowel Movements 1 Dressing: dry Cardiovascular: RSR Respiratory: decreased breath sounds Abdomen: soft, non-tender, present bowel sounds Extremities: edema, no cyanosis Laboratory Tests Test 11/14/19 12:54 11/15/19 04:00 POC Whole Blood Glucose 357 MG/DL (74-106) H White Blood Count 20.7 K/UL (4.8-10.8) H Red Blood Count 4.24 M/UL (4.20-5.40) Hemoglobin 11.1 G/DL (12.0-16.0) L Hematocrit 39.0 % (37.0-47.0) Mean Corpuscular Volume 92 FL (80-99) Mean Corpuscular Hemoglobin 26.1 PG (27.0-31.0) L Mean Corpuscular Hemoglobin Concent 28.3 G/DL (32.0-36.0) L Red Cell Distribution Width 16.9 % (11.6-14.8) H Platelet Count 268 K/UL (150-450) Mean Platelet Volume 7.1 FL (6.5-10.1) Neutrophils (%) (Auto) % (45.0-75.0) Lymphocytes (%) (Auto) % (20.0-45.0) Monocytes (%) (Auto) % (1.0-10.0) Eosinophils (%) (Auto) % (0.0-3.0) Basophils (%) (Auto) % (0.0-2.0) Differential Total Cells Counted 100 Neutrophils % (Manual) 86 % (45-75) H Lymphocytes % (Manual) 6 % (20-45) L Monocytes % (Manual) 8 % (1-10) Eosinophils % (Manual) 0 % (0-3) Basophils % (Manual) 0 % (0-2) Band Neutrophils 0 % (0-8) Platelet Estimate Adequate Platelet Morphology Normal Hypochromasia 1+ Anisocytosis 1+ Sodium Level 149 MMOL/L (136-145) H Potassium Level 4.6 MMOL/L (3.5-5.1) Chloride Level 113 MMOL/L (98-107) H Carbon Dioxide Level 34 MMOL/L (21-32) H Anion Gap 2 mmol/L (5-15) L Blood Urea Nitrogen 34 mg/dL (7-18) H Creatinine 0.9 MG/DL (0.55-1.30) Estimat Glomerular Filtration Rate > 60 mL/min (>60) Glucose Level 370 MG/DL (74-106) H Calcium Level 8.4 MG/DL (8.5-10.1) L Phosphorus Level 3.4 MG/DL (2.5-4.9) Magnesium Level 2.3 MG/DL (1.8-2.4) Total Bilirubin 1.1 MG/DL (0.2-1.0) H Direct Bilirubin 0.9 MG/DL (0.0-0.3) H Aspartate Amino Transf (AST/SGOT) 41 U/L (15-37) H Alanine Aminotransferase (ALT/SGPT) 44 U/L (12-78) Alkaline Phosphatase 211 U/L (46-116) H C-Reactive Protein, Quantitative 1.7 mg/dL (0.00-0.90) H Pro-B-Type Natriuretic Peptide 3673 pg/mL (0-125) H Total Protein 6.5 G/DL (6.4-8.2) Albumin 2.4 G/DL (3.4-5.0) L Globulin 4.1 g/dL Albumin/Globulin Ratio 0.6 (1.0-2.7) L Plan Problems: (1) Weak (2) UTI (urinary tract infection) (3) Hypoxia (4) Epistaxis Assessment & Plan: Severe after taxis left nostril Rhino Rocket placed hemostasis noted over the course 24 hours hemoglobin stable Lovenox been stopped. The balloon of both ports of the Rhino Rocket were deflated today. The rocket itself was not removed and will monitor over the course next 24 hours hemostasis. If so will gently remove and plan for local monitoring. Currently wean ventilator as tolerated. Goals of extubation when possible. deflated balloon 11/08 removed trumpet 11/09 will monitor for bleeding wean vent plan extubation discussed with pulm (5) Fluid overload Assessment & Plan: Continue central venous catheter for now. Will anticipate removal once patient stable for extubation. Thank you for allowing me to participate patient's care (6) Diabetes (7) CHF (congestive heart failure) (8) Afib (9) Multifocal pneumonia (10) 2019 novel coronavirus disease (COVID-19) (11) Respiratory failure Oritz Fleming Nov 15, 2019 12:23
--- NOTE | 2019-11-15 12:59 | Hematology/Onc Progress Note ---
Assessment/Plan Assessment/Plan # Anemia of chronic disease due to underlying chronic medical issues, multifactorial v Gi bleed in this case likely related covid19+++++++++ --> Anemia workup has been ordered, rule out gi bleed --> No evidence of hemolysis is noted, peripheral smear has been reviewed. --> Hgb goal >7. Transfuse prn. --> Epogen or iron at this time is not particularly indicated --> Medications have been reviewed --> low threshold for gi evaluation in case has occult + --> hgb 10-->9.8-->9.2-->9.7-->10.7->10->11 # Leukocytosis/elevated white blood cell count, unspecified likely related to covid19 --> have reviewed peripheral smear and bandemia/neutrophilia noted --> continue antibiotics if they have been started by ID team zosyn --> on remdesivir, dexamathasone --> monitor for resolution --> wbc 12->11-->11-->13->16-->21 # COVID 19 pneumonia --> on vent --> respiratory failure --> s/p vent # Diabetes mellitus --> iss and bs goal <140 # Hypertension --> sbp goal <150 Appreciate consultation and jimena EL Subjective Allergies: Coded Allergies: No Known Allergies (Unverified , 11/06/19) All Systems: reviewed and negative except above Subjective 11/09 weaning prn, meds reviewed, labs noted, hgb 9.2 11/10 on vent, no bleeding, hgb remains low, jimena Rn Jose R in am 11/11 on vent, fluids, ogf tube as well, labs pending in am 11/12 remains altered, no bleeding, labs reviewed, cbc noted 11/13 attempted weaning, but did not do well, no bleeding, hgb 10 11/14 intubated, weaning, on vent, with og, labs noted, abx Objective Objective Current Medications Medications (Trade) Dose Ordered Sig/Robyn Route PRN Reason Start Time Stop Time Status Last Admin Dose Admin Acetaminophen (Tylenol) 650 mg Q6H PRN NG Temp >100.5 11/12/19 00:15 12/12/19 00:14 11/12/19 00:22 Apixaban (Eliquis) 5 mg BID NGT 11/14/19 09:00 02/12/20 08:59 11/15/19 10:07 Chlorhexidine Gluconate (Miya-Hex 2%) 1 applic DAILY@2000 TOPIC 11/08/19 21:30 02/06/20 21:29 11/14/19 20:53 Clonidine HCl (Catapres Tab) 0.1 mg Q4H PRN NG For High Blood Pressure 11/13/19 17:00 02/09/20 10:59 Dexamethasone Sodium Phosphate (Decadron 10mg/ ml Inj) 6 mg DAILY IV 11/09/19 09:00 02/06/20 09:14 11/15/19 10:06 Dextrose 1,000 ml @ 75 mls/hr [id number] IV 11/14/19 08:15 12/14/19 08:14 11/15/19 10:20 Dextrose (Dextrose 50%) 25 ml Q30M PRN IV Hypoglycemia 11/08/19 12:30 02/05/20 02:59 Dextrose (Dextrose 50%) 50 ml Q30M PRN IV Hypoglycemia 11/08/19 12:30 02/05/20 02:59 Docusate Sodium (Colace) 100 mg THREE TIMES A DAY NG 11/14/19 09:00 12/14/19 08:59 11/15/19 10:08 Famotidine (Pepcid I.v.) 20 mg Q12HR IVP 11/08/19 15:30 12/08/19 15:29 11/15/19 10:06 Fentanyl Citrate 250 ml @ 0 mls/hr Q24H IV 11/08/19 12:29 02/06/20 12:28 11/14/19 15:03 Folic Acid (Folate) 2 mg DAILY GT 11/15/19 09:00 12/15/19 08:59 11/15/19 10:07 Insulin Aspart (NovoLOG) EVERY 6 HOURS SUBQ 11/15/19 12:00 02/11/20 20:59 11/15/19 12:29 Insulin Detemir (Levemir) 20 units Q12HR SUBQ 11/15/19 21:00 02/11/20 20:59 Lactulose (Cephulac) 20 gm THREE TIMES A DAY ORAL 7/24/20 18:00 12/13/19 17:59 11/15/19 10:06 Lorazepam (Ativan 2mg/ml 1ml) 1 mg Q4H PRN IV For Anxiety 11/14/19 10:00 11/21/19 09:59 Metoprolol Tartrate (Lopressor) 25 mg Q8HR NG 11/15/19 14:00 02/09/20 10:59 Polyethylene Glycol (Miralax) 17 gm BEDTIME ORAL 11/13/19 21:00 12/13/19 20:59 11/14/19 20:53 Remdesivir 100 mg/ Sodium Chloride 250 ml @ 250 mls/hr Q24H IV 11/12/19 13:00 11/16/19 13:59 11/14/19 12:48 Last 24 Hour Vital Signs Date Time Temp Pulse Resp B/P (MAP) Pulse Ox O2 Delivery O2 Flow Rate FiO2 11/15/19 12:20 100 11/15/19 12:15 145 34 40 11/15/19 12:00 132 22 164/86 (112) 100 11/15/19 11:30 103 24 201/89 (126) 98 11/15/19 11:22 95 24 40 40 11/15/19 11:00 89 19 172/68 (102) 98 11/15/19 11:00 19 172/68 Mechanical Ventilator 40 11/15/19 10:30 101 22 157/75 (102) 97 11/15/19 10:07 94 164/76 11/15/19 10:00 19 157/75 Mechanical Ventilator 40 11/15/19 10:00 101 19 164/76 (105) 98 11/15/19 09:30 91 18 136/65 (88) 98 11/15/19 09:00 89 18 127/59 (81) 98 11/15/19 09:00 18 136/65 Mechanical Ventilator 40 11/15/19 08:30 89 15 137/72 (93) 97 11/15/19 08:00 91 11/15/19 08:00 Mechanical Ventilator 11/15/19 08:00 17 137/72 Mechanical Ventilator 40 11/15/19 08:00 40 11/15/19 08:00 98.2 91 18 123/76 (92) 97 11/15/19 07:00 94 18 162/84 (110) 97 11/15/19 07:00 16 162/88 Mechanical Ventilator 40 11/15/19 06:55 101 23 40 11/15/19 06:30 95 10 147/88 (107) 96 11/15/19 06:30 66 19 11/15/19 06:00 15 136/73 Mechanical Ventilator 40 11/15/19 06:00 90 17 136/73 (94) 97 11/15/19 05:30 96 20 139/70 (93) 99 11/15/19 05:00 12 149/99 Mechanical Ventilator 40 11/15/19 05:00 96 10 169/79 (109) 96 11/15/19 04:39 94 13 181/87 (118) 95 11/15/19 04:30 106 23 176/111 (132) 11/15/19 04:00 12 141/75 Mechanical Ventilator 40 11/15/19 04:00 Mechanical Ventilator 11/15/19 04:00 98.3 87 16 141/75 (97) 100 11/15/19 04:00 40 11/15/19 04:00 80 11/15/19 03:30 88 17 141/85 (103) 100 11/15/19 03:02 97 18 40 11/15/19 03:00 12 156/99 Mechanical Ventilator 40 11/15/19 03:00 93 21 156/99 (118) 100 11/15/19 02:30 89 23 145/68 (93) 100 11/15/19 02:00 21 147/84 Mechanical Ventilator 40 11/15/19 02:00 87 21 147/84 (105) 100 11/15/19 01:30 88 21 139/73 (95) 100 11/15/19 01:00 21 142/84 Mechanical Ventilator 40 11/15/19 01:00 87 23 142/81 (101) 95 11/15/19 00:30 86 21 128/61 (83) 98 11/15/19 00:00 Mechanical Ventilator 11/15/19 00:00 98.2 86 20 140/74 (96) 99 11/15/19 00:00 40 11/15/19 00:00 20 140/74 Mechanical Ventilator 40 11/15/19 00:00 79 11/14/19 23:30 88 18 155/79 (104) 100 11/14/19 23:00 83 22 135/72 (93) 96 11/14/19 23:00 22 135/72 Mechanical Ventilator 40 11/14/19 22:41 78 18 40 11/14/19 22:30 77 18 117/65 (82) 100 11/14/19 22:00 77 18 112/64 (80) 100 11/14/19 22:00 18 112/64 Mechanical Ventilator 40 11/14/19 21:30 75 19 107/55 (72) 96 11/14/19 21:15 18 108/56 Mechanical Ventilator 40 11/14/19 21:00 74 18 108/56 (73) 99 11/14/19 21:00 74 99/56 7 21:00 18 108/56 Mechanical Ventilator 40 11/14/19 20:30 72 19 99/53 (68) 98 11/14/19 20:00 99.0 73 18 112/65 (81) 97 11/14/19 20:00 40 11/14/19 20:00 18 112/64 Mechanical Ventilator 40 11/14/19 20:00 Mechanical Ventilator 11/14/19 20:00 82 11/14/19 19:30 74 19 113/60 (77) 98 11/14/19 19:05 78 19 40 11/14/19 19:00 71 18 127/59 (81) 99 11/14/19 19:00 19 127/59 Mechanical Ventilator 40 11/14/19 18:30 76 19 125/64 (84) 98 11/14/19 18:00 75 10 112/61 (78) 98 11/14/19 18:00 20 112/61 Mechanical Ventilator 40 11/14/19 17:30 79 18 119/70 (86) 98 11/14/19 17:00 80 17 125/61 (82) 98 11/14/19 17:00 20 125/61 Mechanical Ventilator 40 11/14/19 16:30 85 18 148/72 (97) 97 11/14/19 16:00 Mechanical Ventilator 11/14/19 16:00 98.4 83 17 130/72 (91) 96 11/14/19 16:00 18 130/72 Mechanical Ventilator 40 11/14/19 16:00 73 11/14/19 16:00 40 11/14/19 15:30 80 15 135/59 (84) 96 11/14/19 15:03 18 120/72 Mechanical Ventilator 40 11/14/19 15:00 83 18 170/84 (112) 98 11/14/19 14:49 77 18 40 11/14/19 14:30 75 18 120/72 (88) 97 11/14/19 14:00 70 20 118/58 (78) 97 11/14/19 14:00 18 118/58 Mechanical Ventilator 40 11/14/19 13:30 67 18 109/63 (78) 96 11/14/19 13:00 74 18 116/62 (80) 96 11/14/19 13:00 18 116/62 Mechanical Ventilator 40 11/14/19 12:30 71 19 112/59 (76) 96 11/14/19 12:00 73 11/14/19 12:00 40 11/14/19 12:00 19 112/57 Mechanical Ventilator 40 11/14/19 12:00 98.3 72 19 112/57 (75) 96 11/14/19 12:00 Mechanical Ventilator 11/14/19 11:30 75 20 112/61 (78) 96 11/14/19 11:20 69 19 40 11/14/19 11:00 71 21 124/64 (84) 97 11/14/19 11:00 20 124/64 Mechanical Ventilator 40 11/14/19 10:30 70 22 106/58 (74) 96 11/14/19 10:00 20 108/56 Mechanical Ventilator 40 11/14/19 10:00 72 22 108/56 (73) 96 11/14/19 09:30 72 20 105/59 (74) 97 11/14/19 09:00 20 114/57 Mechanical Ventilator 40 11/14/19 09:00 69 20 114/57 (76) 97 11/14/19 08:30 74 21 127/72 (90) 97 11/14/19 08:20 73 173/84 11/14/19 08:05 75 24 40 11/14/19 08:00 98.2 87 21 173/84 (113) 100 11/14/19 08:00 99 11/14/19 08:00 40 11/14/19 08:00 40 173/84 Mechanical Ventilator 40 11/14/19 08:00 92 52 40 11/14/19 08:00 69 11/14/19 08:00 Mechanical Ventilator 11/14/19 07:55 40 11/14/19 07:30 71 19 40 7/25/20 07:30 71 22 101/64 (76) 98 11/14/19 07:30 20 101/64 Mechanical Ventilator 40 11/14/19 07:00 20 95/58 Mechanical Ventilator 40 11/14/19 07:00 69 20 95/58 (70) 97 11/14/19 06:30 66 19 11/14/19 06:30 68 19 103/55 (71) 97 11/14/19 06:00 68 20 97/55 (69) 98 11/14/19 06:00 20 95/55 40 11/14/19 05:30 68 20 102/53 (69) 98 11/14/19 05:04 71 22 124/65 (84) 98 11/14/19 05:00 14 121/96 Mechanical Ventilator 40 11/14/19 04:00 97.6 80 21 115/51 (72) 97 11/14/19 04:00 40 11/14/19 04:00 74 11/14/19 04:00 12 107/65 Mechanical Ventilator 40 11/14/19 04:00 Mechanical Ventilator 11/14/19 03:30 87 24 139/84 (102) 98 11/14/19 03:30 76 20 40 11/14/19 03:00 75 19 105/48 (67) 98 11/14/19 03:00 21 139/84 Mechanical Ventilator 40 11/14/19 02:30 83 20 114/60 (78) 98 11/14/19 02:00 19 114/60 Mechanical Ventilator 40 11/14/19 02:00 85 19 118/58 (78) 97 11/14/19 01:30 86 19 123/78 (93) 98 11/14/19 01:00 88 22 126/70 (88) 98 11/14/19 01:00 21 123/78 Mechanical Ventilator 40 11/14/19 00:30 86 19 150/92 (111) 97 11/14/19 00:00 82 11/14/19 00:00 Mechanical Ventilator 11/14/19 00:00 21 150/92 Mechanical Ventilator 40 11/14/19 00:00 40 11/14/19 00:00 98.4 91 18 137/78 (97) 97 11/13/19 23:30 90 22 137/64 (88) 97 11/13/19 23:30 83 20 40 11/13/19 23:00 22 137/64 Mechanical Ventilator 40 11/13/19 23:00 91 27 133/71 (91) 97 11/13/19 22:30 89 22 135/75 (95) 97 11/13/19 22:00 18 122/73 Mechanical Ventilator 40 11/13/19 22:00 90 18 122/73 (89) 97 11/13/19 21:30 93 16 140/65 (90) 97 11/13/19 21:00 92 18 128/74 (92) 97 11/13/19 21:00 17 140/65 Mechanical Ventilator 40 11/13/19 20:42 88 125/72 11/13/19 20:30 93 18 125/75 (92) 97 11/13/19 20:00 99.7 88 17 124/64 (84) 97 11/13/19 20:00 Mechanical Ventilator 11/13/19 20:00 40 11/13/19 20:00 18 125/75 Mechanical Ventilator 40 11/13/19 20:00 94 11/13/19 19:30 92 19 132/72 (92) 97 11/13/19 19:30 88 19 40 11/13/19 19:00 18 122/72 Mechanical Ventilator 40 11/13/19 19:00 94 18 121/83 (96) 97 11/13/19 18:00 89 18 117/69 (85) 97 11/13/19 18:00 18 117/69 Mechanical Ventilator 40 11/13/19 17:30 93 18 142/75 (97) 97 11/13/19 17:00 95 18 149/68 (95) 97 11/13/19 17:00 17 123/71 Mechanical Ventilator 40 11/13/19 16:33 18 145/71 Mechanical Ventilator 60.0 40 11/13/19 16:00 40 11/13/19 16:00 Mechanical Ventilator 11/13/19 16:00 18 145/71 Mechanical Ventilator 40 11/13/19 16:00 89 11/13/19 16:00 98.8 97 18 145/71 (95) 97 11/13/19 15:30 92 18 130/71 (90) 97 11/13/19 15:15 96 19 40 11/13/19 15:00 91 17 121/73 (89) 96 11/13/19 15:00 18 130/71 Mechanical Ventilator 40 11/13/19 14:00 88 18 123/60 (81) 97 11/13/19 14:00 18 123/60 Mechanical Ventilator 40 11/13/19 13:00 98 17 105/71 (82) 97 11/13/19 13:00 20 105/71 Mechanical Ventilator 40 Intake and Output 11/14/19 11/15/19 19:00 07:00 Intake Total 2230 ml 1714 ml Output Total 890 ml 605 ml Balance 1340 ml 1109 ml Free Water 200 ml IV Total 1250 ml 974 ml Tube Feeding 480 ml 480 ml Other 500 ml 60 ml Output Urine Total 890 ml 605 ml # Bowel Movements 1 Labs Test 11/13/19 03:46 11/14/19 03:30 11/14/19 04:00 11/14/19 04:19 White Blood Count 13.0 K/UL (4.8-10.8) 15.8 K/UL (4.8-10.8) Red Blood Count 4.00 M/UL (4.20-5.40) 3.95 M/UL (4.20-5.40) Hemoglobin 10.7 G/DL (12.0-16.0) 10.6 G/DL (12.0-16.0) Hematocrit 36.6 % (37.0-47.0) 36.0 % (37.0-47.0) Mean Corpuscular Volume 92 FL (80-99) 91 FL (80-99) Mean Corpuscular Hemoglobin 26.8 PG (27.0-31.0) 26.8 PG (27.0-31.0) Mean Corpuscular Hemoglobin Concent 29.3 G/DL (32.0-36.0) 29.4 G/DL (32.0-36.0) Red Cell Distribution Width 16.6 % (11.6-14.8) 17.1 % (11.6-14.8) Platelet Count 197 K/UL (150-450) 207 K/UL (150-450) Mean Platelet Volume 5.9 FL (6.5-10.1) 6.7 FL (6.5-10.1) Neutrophils (%) (Auto) % (45.0-75.0) % (45.0-75.0) Lymphocytes (%) (Auto) % (20.0-45.0) % (20.0-45.0) Monocytes (%) (Auto) % (1.0-10.0) % (1.0-10.0) Eosinophils (%) (Auto) % (0.0-3.0) % (0.0-3.0) Basophils (%) (Auto) % (0.0-2.0) % (0.0-2.0) Differential Total Cells Counted 100 100 Neutrophils % (Manual) 90 % (45-75) 90 % (45-75) Lymphocytes % (Manual) 6 % (20-45) 4 % (20-45) Monocytes % (Manual) 4 % (1-10) 6 % (1-10) Eosinophils % (Manual) 0 % (0-3) 0 % (0-3) Basophils % (Manual) 0 % (0-2) 0 % (0-2) Band Neutrophils 0 % (0-8) 0 % (0-8) Platelet Estimate Adequate Adequate Platelet Morphology Normal Normal Hypochromasia 1+ 1+ Anisocytosis 1+ 1+ Sodium Level 148 MMOL/L (136-145) 146 MMOL/L (136-145) Potassium Level 5.3 MMOL/L (3.5-5.1) 5.4 MMOL/L (3.5-5.1) Chloride Level 116 MMOL/L (98-107) 115 MMOL/L (98-107) Carbon Dioxide Level 28 MMOL/L (21-32) 27 MMOL/L (21-32) Anion Gap 4 mmol/L (5-15) 4 mmol/L (5-15) Blood Urea Nitrogen 41 mg/dL (7-18) 40 mg/dL (7-18) Creatinine 1.2 MG/DL (0.55-1.30) 1.2 MG/DL (0.55-1.30) Estimat Glomerular Filtration Rate 47.0 mL/min (>60) 47.0 mL/min (>60) Glucose Level 428 MG/DL (74-106) 357 MG/DL (74-106) Lactic Acid Level 2.60 mmol/L (0.4-2.0) Calcium Level 8.3 MG/DL (8.5-10.1) 8.5 MG/DL (8.5-10.1) D-Dimer 8.74 mg/L FEU (0.00-0.49) Polychromasia 1+ Uric Acid 6.0 MG/DL (2.6-7.2) Phosphorus Level 3.2 MG/DL (2.5-4.9) Magnesium Level 2.4 MG/DL (1.8-2.4) Iron Level 29 ug/dL (50-175) Total Iron Binding Capacity 346 ug/dL (250-450) Percent Iron Saturation 8 % (15-50) Unsaturated Iron Binding 317 ug/dL (112-346) Ferritin 51 NG/ML (8-388) Total Bilirubin 0.9 MG/DL (0.2-1.0) Direct Bilirubin 0.5 MG/DL (0.0-0.3) Gamma Glutamyl Transpeptidase 238 U/L (5-85) Aspartate Amino Transf (AST/SGOT) 45 U/L (15-37) Alanine Aminotransferase (ALT/SGPT) 40 U/L (12-78) Alkaline Phosphatase 208 U/L (46-116) Lactate Dehydrogenase 373 U/L (81-234) Total Creatine Kinase 36 U/L (26-308) C-Reactive Protein, Quantitative 1.7 mg/dL (0.00-0.90) Pro-B-Type Natriuretic Peptide 5577 pg/mL (0-125) Total Protein 6.5 G/DL (6.4-8.2) Albumin 2.2 G/DL (3.4-5.0) Globulin 4.3 g/dL Albumin/Globulin Ratio 0.5 (1.0-2.7) Vitamin B12 Level 1372 PG/ML (193-986) Folate 7.9 NG/ML (8.6-58.9) Test 11/14/19 08:30 11/14/19 12:54 11/15/19 04:00 POC Whole Blood Glucose 301 MG/DL (74-106) 357 MG/DL (74-106) White Blood Count 20.7 K/UL (4.8-10.8) Red Blood Count 4.24 M/UL (4.20-5.40) Hemoglobin 11.1 G/DL (12.0-16.0) Hematocrit 39.0 % (37.0-47.0) Mean Corpuscular Volume 92 FL (80-99) Mean Corpuscular Hemoglobin 26.1 PG (27.0-31.0) Mean Corpuscular Hemoglobin Concent 28.3 G/DL (32.0-36.0) Red Cell Distribution Width 16.9 % (11.6-14.8) Platelet Count 268 K/UL (150-450) Mean Platelet Volume 7.1 FL (6.5-10.1) Neutrophils (%) (Auto) % (45.0-75.0) Lymphocytes (%) (Auto) % (20.0-45.0) Monocytes (%) (Auto) % (1.0-10.0) Eosinophils (%) (Auto) % (0.0-3.0) Basophils (%) (Auto) % (0.0-2.0) Differential Total Cells Counted 100 Neutrophils % (Manual) 86 % (45-75) Lymphocytes % (Manual) 6 % (20-45) Monocytes % (Manual) 8 % (1-10) Eosinophils % (Manual) 0 % (0-3) Basophils % (Manual) 0 % (0-2) Band Neutrophils 0 % (0-8) Platelet Estimate Adequate Platelet Morphology Normal Hypochromasia 1+ Anisocytosis 1+ Sodium Level 149 MMOL/L (136-145) Potassium Level 4.6 MMOL/L (3.5-5.1) Chloride Level 113 MMOL/L (98-107) Carbon Dioxide Level 34 MMOL/L (21-32) Anion Gap 2 mmol/L (5-15) Blood Urea Nitrogen 34 mg/dL (7-18) Creatinine 0.9 MG/DL (0.55-1.30) Estimat Glomerular Filtration Rate > 60 mL/min (>60) Glucose Level 370 MG/DL (74-106) Calcium Level 8.4 MG/DL (8.5-10.1) Phosphorus Level 3.4 MG/DL (2.5-4.9) Magnesium Level 2.3 MG/DL (1.8-2.4) Total Bilirubin 1.1 MG/DL (0.2-1.0) Direct Bilirubin 0.9 MG/DL (0.0-0.3) Aspartate Amino Transf (AST/SGOT) 41 U/L (15-37) Alanine Aminotransferase (ALT/SGPT) 44 U/L (12-78) Alkaline Phosphatase 211 U/L (46-116) C-Reactive Protein, Quantitative 1.7 mg/dL (0.00-0.90) Pro-B-Type Natriuretic Peptide 3673 pg/mL (0-125) Total Protein 6.5 G/DL (6.4-8.2) Albumin 2.4 G/DL (3.4-5.0) Globulin 4.1 g/dL Albumin/Globulin Ratio 0.6 (1.0-2.7) Height (Feet): 5 Height (Inches): 3.00 Weight (Pounds): 344 Objective Physical Exam: Vitals: reviewed General: NAD HEENT: nc, at Neck: supple Chest: clear breath sounds on vent++ Cardiovascular: RRR, no s3, s4 Abdomen: soft, nontender, nd Extremities: no cce, normal range of motion Neuro: alert and oriented Ismael Fischer MD Nov 15, 2019 12:59
[2019-11-15] MEDS: Remdesivir 100mg 100 MG in NS 230 ML IV SCH (13:19)
[2019-11-15] MEDS: fentaNYL 2500mcg/NS 250ml 250 ML IV SCH (17:11)
[2019-11-15] MEDS: Dyna-Hex 2% Top Sol 2oz TOPIC SCH (20:13)
[2019-11-15] MEDS: Miralax 17gm pkt ORAL SCH (21:22)
[2019-11-16] VITALS (34 sets, daily range): BP systolic 92–141; BP diastolic 20–83
[2019-11-16] MEDS: NovoLOG Insulin Flexpen SUBQ SCH ×4 (00:20→17:44)
[2019-11-16 05:02] LABS: HEMATOCRIT 35.1 % (37.0-47.0); HEMOGLOBIN 10.2 G/DL (12.0-16.0); MEAN CORPUSCULAR VOLUME 91 FL (80-99); PLATELET COUNT 240 K/UL (150-450); RED BLOOD COUNT 3.87 M/UL (4.20-5.40); RED CELL DISTRIBUTION WIDTH 16.5 % (11.6-14.8)
[2019-11-16 05:18] LABS: WHITE BLOOD COUNT 22.3 K/UL (4.8-10.8)
[2019-11-16 05:31] LABS: ALANINE AMINOTRANSFERASE 42 U/L (12-78); ALBUMIN 2.2 G/DL (3.4-5.0); ALBUMIN/GLOBULIN RATIO 0.6 (1.0-2.7); ALKALINE PHOSPHATASE 211 U/L (46-116); ANION GAP 2 mmol/L (5-15); ASPARTATE AMINO TRANSFERASE 46 U/L (15-37); BILIRUBIN,DIRECT 0.9 MG/DL (0.0-0.3); BILIRUBIN,TOTAL 1.1 MG/DL (0.2-1.0); BLOOD UREA NITROGEN 25 mg/dL (7-18); CALCIUM 8.3 MG/DL (8.5-10.1); CARBON DIOXIDE 35 MMOL/L (21-32); CHLORIDE 113 MMOL/L (98-107); CREATININE 0.9 MG/DL (0.55-1.30); POTASSIUM 4.1 MMOL/L (3.5-5.1); SODIUM 150 MMOL/L (136-145)
--- NOTE | 2019-11-16 06:50 | General Progress Note ---
Assessment/Plan Problem List: (1) Respiratory failure ICD Codes: J96.90 - Respiratory failure, unspecified, unspecified whether with hypoxia or hypercapnia SNOMED: 306920318 (2) 2019 novel coronavirus disease (COVID-19) ICD Codes: U07.1 - COVID-19 SNOMED: 763475451 (3) Multifocal pneumonia ICD Codes: J18.9 - Pneumonia, unspecified organism SNOMED: 473724441 (4) Afib ICD Codes: I48.91 - Unspecified atrial fibrillation SNOMED: 78135649 (5) CHF (congestive heart failure) ICD Codes: I50.9 - Heart failure, unspecified SNOMED: 09408717 (6) Diabetes ICD Codes: E11.9 - Type 2 diabetes mellitus without complications SNOMED: 83862230 (7) Fluid overload ICD Codes: E87.70 - Fluid overload, unspecified SNOMED: 67100347 (8) Epistaxis ICD Codes: R04.0 - Epistaxis SNOMED: 580241350 Status: unchanged Assessment/Plan: fu H&H prn blood transfusion NGTF no residuals iv fluid per nephrology dc all laxatives given diarrhea patient on Eliquis will fu Subjective ROS Limited/Unobtainable: No Allergies: Coded Allergies: No Known Allergies (Unverified , 11/06/19) Objective Last 24 Hour Vital Signs Date Time Temp Pulse Resp B/P (MAP) Pulse Ox O2 Delivery O2 Flow Rate FiO2 11/16/19 06:30 95 19 11/16/19 06:00 99.5 102 19 114/44 (67) 96 11/16/19 06:00 98 115/40 11/16/19 06:00 19 114/44 Mechanical Ventilator 40 11/16/19 05:00 95 19 118/64 (82) 96 11/16/19 05:00 19 118/64 Mechanical Ventilator 40 11/16/19 04:00 98 11/16/19 04:00 Mechanical Ventilator 11/16/19 04:00 40 11/16/19 04:00 21 119/38 Mechanical Ventilator 40 11/16/19 04:00 99.0 93 21 119/38 (65) 97 11/16/19 03:37 84 22 40 11/16/19 03:30 94 19 130/48 (75) 97 11/16/19 03:00 93 17 121/49 (73) 97 11/16/19 03:00 17 121/49 Mechanical Ventilator 40 11/16/19 02:30 92 18 105/47 (66) 96 11/16/19 02:00 18 105/47 Mechanical Ventilator 40 11/16/19 02:00 90 18 105/47 (66) 96 11/16/19 01:30 88 18 112/72 (85) 96 11/16/19 01:00 88 19 131/20 (57) 97 11/16/19 01:00 19 131/20 Mechanical Ventilator 40 11/16/19 00:30 95 21 130/59 (82) 98 11/16/19 00:00 40 11/16/19 00:00 Mechanical Ventilator 11/16/19 00:00 99.1 88 19 109/34 (59) 97 11/16/19 00:00 88 11/16/19 00:00 18 130/59 Mechanical Ventilator 40 11/15/19 23:34 84 22 40 11/15/19 23:30 93 18 98/59 (72) 100 11/15/19 23:00 18 98/56 Mechanical Ventilator 40 11/15/19 23:00 89 18 114/56 (75) 97 11/15/19 22:30 87 18 119/70 (86) 99 11/15/19 22:00 85 17 117/44 (68) 97 11/15/19 22:00 18 117/44 Mechanical Ventilator 40 11/15/19 21:30 95 20 155/62 (93) 98 11/15/19 21:22 98 167/52 11/15/19 21:00 96 22 162/57 (92) 97 11/15/19 21:00 22 162/57 Mechanical Ventilator 40 11/15/19 20:30 90 20 108/45 (66) 97 11/15/19 20:00 89 11/15/19 20:00 99.0 96 21 129/27 (61) 100 11/15/19 20:00 21 165/57 Mechanical Ventilator 40 11/15/19 20:00 40 11/15/19 20:00 Mechanical Ventilator 11/15/19 19:51 91 22 40 11/15/19 19:30 88 22 94/44 (61) 97 11/15/19 19:00 86 21 108/69 (82) 96 11/15/19 19:00 20 108/69 Mechanical Ventilator 40 11/15/19 18:30 88 20 123/75 (91) 97 11/15/19 18:00 88 20 132/42 (72) 98 11/15/19 18:00 19 132/42 Mechanical Ventilator 40 11/15/19 17:30 89 20 113/43 (66) 98 11/15/19 17:11 20 138/61 Mechanical Ventilator 40 11/15/19 17:00 97 19 138/61 (86) 98 11/15/19 17:00 20 138/61 Mechanical Ventilator 40 11/15/19 16:00 40 11/15/19 16:00 78 20 141/57 (85) 95 11/15/19 16:00 22 141/57 Mechanical Ventilator 40 11/15/19 16:00 Mechanical Ventilator 11/15/19 16:00 78 11/15/19 15:43 108 27 40 11/15/19 15:00 103 24 151/68 (95) 96 11/15/19 14:26 98 151/66 11/15/19 14:00 98 22 151/66 (94) 96 11/15/19 13:00 116 21 150/91 (110) 97 11/15/19 12:20 100 11/15/19 12:15 145 34 40 11/15/19 12:00 Mechanical Ventilator 11/15/19 12:00 40 11/15/19 12:00 132 22 164/86 (112) 100 11/15/19 11:48 110 11/15/19 11:30 103 24 201/89 (126) 98 11/15/19 11:22 95 24 40 40 11/15/19 11:00 89 19 172/68 (102) 98 11/15/19 11:00 19 172/68 Mechanical Ventilator 40 11/15/19 10:30 101 22 157/75 (102) 97 11/15/19 10:07 94 164/76 11/15/19 10:00 19 157/75 Mechanical Ventilator 40 11/15/19 10:00 101 19 164/76 (105) 98 11/15/19 09:30 91 18 136/65 (88) 98 11/15/19 09:00 89 18 127/59 (81) 98 11/15/19 09:00 18 136/65 Mechanical Ventilator 40 11/15/19 08:30 89 15 137/72 (93) 97 11/15/19 08:00 91 11/15/19 08:00 Mechanical Ventilator 11/15/19 08:00 17 137/72 Mechanical Ventilator 40 11/15/19 08:00 40 11/15/19 08:00 98.2 91 18 123/76 (92) 97 11/15/19 07:00 94 18 162/84 (110) 97 11/15/19 07:00 16 162/88 Mechanical Ventilator 40 11/15/19 06:55 101 23 40 Intake and Output 11/15/19 11/16/19 19:00 07:00 Intake Total 1566.8 ml 1378 ml Output Total 550 ml 550 ml Balance 1016.8 ml 828 ml Free Water 30 ml IV Total 1056.8 ml 938 ml Tube Feeding 320 ml 440 ml Other 160 ml Output Urine Total 550 ml 550 ml # Bowel Movements 2 3 Laboratory Tests 11/15/19 10:17: POC Whole Blood Glucose 289H 11/16/19 04:00: White Blood Count 22.3*H, Red Blood Count 3.87L, Hemoglobin 10.2L, Hematocrit 35.1L, Mean Corpuscular Volume 91, Mean Corpuscular Hemoglobin 26.5L, Mean Corpuscular Hemoglobin Concent 29.2L, Red Cell Distribution Width 16.5H, Platelet Count 240, Mean Platelet Volume 7.1, Neutrophils (%) (Auto) , Lymphocytes (%) (Auto) , Monocytes (%) (Auto) , Eosinophils (%) (Auto) , Basophils (%) (Auto) , Neutrophils % (Manual) [Pending], Lymphocytes % (Manual) [Pending], Platelet Estimate [Pending], Platelet Morphology [Pending], Sodium Level 150H, Potassium Level 4.1, Chloride Level 113H, Carbon Dioxide Level 35H, Anion Gap 2L, Blood Urea Nitrogen 25H, Creatinine 0.9, Estimat Glomerular Filtration Rate > 60, Glucose Level 204#H, Calcium Level 8.3L, Total Bilirubin 1.1H, Direct Bilirubin 0.9H, Aspartate Amino Transf (AST/SGOT) 46H, Alanine Aminotransferase (ALT/SGPT) 42, Alkaline Phosphatase 211H, Total Protein 6.0L, Albumin 2.2L, Globulin 3.8, Albumin/Globulin Ratio 0.6L Height (Feet): 5 Height (Inches): 3.00 Weight (Pounds): 344 General Appearance: lethargic EENT: normal ENT inspection Neck: supple Cardiovascular: normal rate Respiratory/Chest: decreased breath sounds Abdomen: hypoactive bowel sounds Extremities: non-tender Case Patel MD Nov 16, 2019 06:50
--- NOTE | 2019-11-16 08:43 | Pulmonology Progress Note ---
Subjective ROS Limited/Unobtainable: No Interval Events: Intubated; weaning Constitutional: Denies: fever HEENT: Repors: no symptoms Respiratory: Reports: dry cough, shortness of breath Cardiovascular: Reports: no symptoms Gastrointestinal/Abdominal: Reports: no symptoms Allergies: Coded Allergies: No Known Allergies (Unverified , 11/06/19) All Systems: reviewed and negative except above Objective Last 24 Hour Vital Signs Date Time Temp Pulse Resp B/P (MAP) Pulse Ox O2 Delivery O2 Flow Rate FiO2 11/16/19 07:00 21 140/83 Mechanical Ventilator 50 11/16/19 07:00 109 21 140/83 (102) 96 11/16/19 06:55 50 11/16/19 06:51 100 11/16/19 06:48 111 26 40 40 11/16/19 06:30 95 19 11/16/19 06:00 99.5 102 19 114/44 (67) 96 11/16/19 06:00 98 115/40 11/16/19 06:00 19 114/44 Mechanical Ventilator 40 11/16/19 05:00 95 19 118/64 (82) 96 11/16/19 05:00 19 118/64 Mechanical Ventilator 40 11/16/19 04:00 98 11/16/19 04:00 Mechanical Ventilator 11/16/19 04:00 40 11/16/19 04:00 21 119/38 Mechanical Ventilator 40 11/16/19 04:00 99.0 93 21 119/38 (65) 97 11/16/19 03:37 84 22 40 11/16/19 03:30 94 19 130/48 (75) 97 11/16/19 03:00 93 17 121/49 (73) 97 11/16/19 03:00 17 121/49 Mechanical Ventilator 40 11/16/19 02:30 92 18 105/47 (66) 96 11/16/19 02:00 18 105/47 Mechanical Ventilator 40 11/16/19 02:00 90 18 105/47 (66) 96 11/16/19 01:30 88 18 112/72 (85) 96 11/16/19 01:00 88 19 131/20 (57) 97 11/16/19 01:00 19 131/20 Mechanical Ventilator 40 11/16/19 00:30 95 21 130/59 (82) 98 11/16/19 00:00 40 7/27/20 00:00 Mechanical Ventilator 11/16/19 00:00 99.1 88 19 109/34 (59) 97 11/16/19 00:00 88 11/16/19 00:00 18 130/59 Mechanical Ventilator 40 11/15/19 23:34 84 22 40 11/15/19 23:30 93 18 98/59 (72) 100 11/15/19 23:00 18 98/56 Mechanical Ventilator 40 11/15/19 23:00 89 18 114/56 (75) 97 11/15/19 22:30 87 18 119/70 (86) 99 11/15/19 22:00 85 17 117/44 (68) 97 11/15/19 22:00 18 117/44 Mechanical Ventilator 40 11/15/19 21:30 95 20 155/62 (93) 98 11/15/19 21:22 98 167/52 11/15/19 21:00 96 22 162/57 (92) 97 11/15/19 21:00 22 162/57 Mechanical Ventilator 40 11/15/19 20:30 90 20 108/45 (66) 97 11/15/19 20:00 89 11/15/19 20:00 99.0 96 21 129/27 (61) 100 11/15/19 20:00 21 165/57 Mechanical Ventilator 40 11/15/19 20:00 40 11/15/19 20:00 Mechanical Ventilator 11/15/19 19:51 91 22 40 11/15/19 19:30 88 22 94/44 (61) 97 11/15/19 19:00 86 21 108/69 (82) 96 11/15/19 19:00 20 108/69 Mechanical Ventilator 40 11/15/19 18:30 88 20 123/75 (91) 97 11/15/19 18:00 88 20 132/42 (72) 98 11/15/19 18:00 19 132/42 Mechanical Ventilator 40 11/15/19 17:30 89 20 113/43 (66) 98 11/15/19 17:11 20 138/61 Mechanical Ventilator 40 11/15/19 17:00 97 19 138/61 (86) 98 11/15/19 17:00 20 138/61 Mechanical Ventilator 40 11/15/19 16:00 40 11/15/19 16:00 78 20 141/57 (85) 95 11/15/19 16:00 22 141/57 Mechanical Ventilator 40 11/15/19 16:00 Mechanical Ventilator 11/15/19 16:00 78 11/15/19 15:43 108 27 40 11/15/19 15:00 103 24 151/68 (95) 96 11/15/19 14:26 98 151/66 11/15/19 14:00 98 22 151/66 (94) 96 11/15/19 13:00 116 21 150/91 (110) 97 11/15/19 12:20 100 11/15/19 12:15 145 34 40 11/15/19 12:00 Mechanical Ventilator 11/15/19 12:00 40 11/15/19 12:00 132 22 164/86 (112) 100 11/15/19 11:48 110 11/15/19 11:30 103 24 201/89 (126) 98 11/15/19 11:22 95 24 40 40 11/15/19 11:00 89 19 172/68 (102) 98 11/15/19 11:00 19 172/68 Mechanical Ventilator 40 11/15/19 10:30 101 22 157/75 (102) 97 11/15/19 10:07 94 164/76 11/15/19 10:00 19 157/75 Mechanical Ventilator 40 11/15/19 10:00 101 19 164/76 (105) 98 11/15/19 09:30 91 18 136/65 (88) 98 11/15/19 09:00 89 18 127/59 (81) 98 11/15/19 09:00 18 136/65 Mechanical Ventilator 40 Intake and Output 11/15/19 11/16/19 19:00 07:00 Intake Total 1566.8 ml 1505 ml Output Total 550 ml 580 ml Balance 1016.8 ml 925 ml Free Water 30 ml IV Total 1056.8 ml 1025 ml Tube Feeding 320 ml 480 ml Other 160 ml Output Urine Total 550 ml 580 ml # Bowel Movements 2 3 General Appearance: no acute distress HEENT: normocephalic Respiratory: decreased breath sounds Cardiovascular: normal peripheral pulses Abdomen: normal bowel sounds Extremities: no cyanosis Laboratory Tests 11/15/19 10:17: POC Whole Blood Glucose 289H 11/16/19 04:00: White Blood Count 22.3*H, Red Blood Count 3.87L, Hemoglobin 10.2L, Hematocrit 35.1L, Mean Corpuscular Volume 91, Mean Corpuscular Hemoglobin 26.5L, Mean Corpuscular Hemoglobin Concent 29.2L, Red Cell Distribution Width 16.5H, Platelet Count 240, Mean Platelet Volume 7.1, Neutrophils (%) (Auto) , Lymphocytes (%) (Auto) , Monocytes (%) (Auto) , Eosinophils (%) (Auto) , Basophils (%) (Auto) , Neutrophils % (Manual) [Pending], Lymphocytes % (Manual) [Pending], Platelet Estimate [Pending], Platelet Morphology [Pending], Sodium Level 150H, Potassium Level 4.1, Chloride Level 113H, Carbon Dioxide Level 35H, Anion Gap 2L, Blood Urea Nitrogen 25H, Creatinine 0.9, Estimat Glomerular Filtration Rate > 60, Glucose Level 204#H, Calcium Level 8.3L, Total Bilirubin 1.1H, Direct Bilirubin 0.9H, Aspartate Amino Transf (AST/SGOT) 46H, Alanine Aminotransferase (ALT/SGPT) 42, Alkaline Phosphatase 211H, Total Protein 6.0L, Albumin 2.2L, Globulin 3.8, Albumin/Globulin Ratio 0.6L 11/16/19 07:31: Arterial Blood pH 7.354, Arterial Blood Partial Pressure CO2 56.6*H, Arterial Blood Partial Pressure O2 64.3L, Arterial Blood HCO3 30.8H, Arterial Blood Oxygen Saturation 92.2L, Arterial Blood Base Excess 4.2H, Steve Test Positive Current Medications Medications (Trade) Dose Ordered Sig/Robyn Route PRN Reason Start Time Stop Time Status Last Admin Dose Admin Acetaminophen (Tylenol) 650 mg Q6H PRN NG Temp >100.5 11/12/19 00:15 12/12/19 00:14 11/12/19 00:22 Apixaban (Eliquis) 5 mg BID NGT 11/14/19 09:00 02/12/20 08:59 11/15/19 17:47 Chlorhexidine Gluconate (Miya-Hex 2%) 1 applic DAILY@1999 TOPIC 11/08/19 21:30 02/06/20 21:29 11/15/19 20:13 Clonidine HCl (Catapres Tab) 0.1 mg Q4H PRN NG For High Blood Pressure 11/13/19 17:00 02/09/20 10:59 Dexamethasone Sodium Phosphate (Decadron 10mg/ ml Inj) 6 mg DAILY IV 11/09/19 09:00 02/06/20 09:14 11/15/19 10:06 Dextrose 1,000 ml @ 75 mls/hr [id number] IV 11/14/19 08:15 12/14/19 08:14 11/16/19 01:15 Dextrose (Dextrose 50%) 25 ml Q30M PRN IV Hypoglycemia 11/08/19 12:30 02/05/20 02:59 Dextrose (Dextrose 50%) 50 ml Q30M PRN IV Hypoglycemia 11/08/19 12:30 02/05/20 02:59 Famotidine (Pepcid I.v.) 20 mg Q12HR IVP 11/08/19 15:30 12/08/19 15:29 11/15/19 21:22 Fentanyl Citrate 250 ml @ 0 mls/hr Q24H IV 11/08/19 12:29 02/06/20 12:28 11/15/19 17:11 Folic Acid (Folate) 2 mg DAILY GT 11/15/19 09:00 12/15/19 08:59 11/15/19 10:07 Insulin Aspart (NovoLOG) EVERY 6 HOURS SUBQ 11/15/19 12:00 02/11/20 20:59 11/16/19 06:05 Insulin Detemir (Levemir) 20 units Q12HR SUBQ 11/15/19 21:00 02/11/20 20:59 11/15/19 21:44 Lorazepam (Ativan 2mg/ml 1ml) 1 mg Q4H PRN IV For Anxiety 11/14/19 10:00 11/21/19 09:59 Metoprolol Tartrate (Lopressor) 25 mg Q8HR NG 11/15/19 14:00 02/09/20 10:59 11/15/19 21:22 Remdesivir 100 mg/ Sodium Chloride 250 ml @ 250 mls/hr Q24H IV 11/12/19 13:00 11/16/19 13:59 11/15/19 13:19 Assessment/Plan Assessment/Plan IMPRESSION: 1. COVID-19 pneumonia. 2. Diabetes mellitus and hypertension. 3. Lactic acidemia. 4. Epistaxis 5. Respiratory failure DISCUSSION: Careful and close monitoring. Continue remdesivir and steroids. Vent weaning to continue. I will follow carefully. Lakeisha Zavaleta Omar Syed MD Nov 16, 2019 08:43
[2019-11-16] MEDS: Eliquis 5mg tablet NGT SCH ×2 (08:57→17:03)
[2019-11-16] MEDS: dexAMETHasone 10mg/ml Inj IV SCH (08:57)
[2019-11-16] MEDS: Levemir Flexpen SUBQ SCH ×2 (08:59→21:03)
--- NOTE | 2019-11-16 08:59 | Cardiac Electrophysiology PN ---
Assessment/Plan Assessment/Plan 1. Atrial fibrillation. On metoprolol 25 mg po BID and Eliquis 5 bid EF 55% on echo. 2. HTN, Lopressor 25 bid 3. COVID positive pneumonia. On Remdesevir and dexamethasone. 4. Diabetes, on insulin. 5. Respiratory failure on the Vent. 6. S/P Massive nasal bleed. DW [employer] Subjective Subjective In ICU off pressors on the vent with 40% Fio2. No nose bleed In atrial fib rate controlled on Lopressor 25 bid. Objective Last 24 Hour Vital Signs Date Time Temp Pulse Resp B/P (MAP) Pulse Ox O2 Delivery O2 Flow Rate FiO2 11/16/19 07:00 21 140/83 Mechanical Ventilator 50 11/16/19 07:00 109 21 140/83 (102) 96 11/16/19 06:55 50 11/16/19 06:51 100 11/16/19 06:48 111 26 40 40 11/16/19 06:30 95 19 11/16/19 06:00 99.5 102 19 114/44 (67) 96 11/16/19 06:00 98 115/40 11/16/19 06:00 19 114/44 Mechanical Ventilator 40 11/16/19 05:00 95 19 118/64 (82) 96 11/16/19 05:00 19 118/64 Mechanical Ventilator 40 11/16/19 04:00 98 11/16/19 04:00 Mechanical Ventilator 11/16/19 04:00 40 11/16/19 04:00 21 119/38 Mechanical Ventilator 40 11/16/19 04:00 99.0 93 21 119/38 (65) 97 11/16/19 03:37 84 22 40 11/16/19 03:30 94 19 130/48 (75) 97 11/16/19 03:00 93 17 121/49 (73) 97 11/16/19 03:00 17 121/49 Mechanical Ventilator 40 11/16/19 02:30 92 18 105/47 (66) 96 11/16/19 02:00 18 105/47 Mechanical Ventilator 40 11/16/19 02:00 90 18 105/47 (66) 96 11/16/19 01:30 88 18 112/72 (85) 96 11/16/19 01:00 88 19 131/20 (57) 97 11/16/19 01:00 19 131/20 Mechanical Ventilator 40 11/16/19 00:30 95 21 130/59 (82) 98 11/16/19 00:00 40 11/16/19 00:00 Mechanical Ventilator 11/16/19 00:00 99.1 88 19 109/34 (59) 97 11/16/19 00:00 88 11/16/19 00:00 18 130/59 Mechanical Ventilator 40 11/15/19 23:34 84 22 40 11/15/19 23:30 93 18 98/59 (72) 100 11/15/19 23:00 18 98/56 Mechanical Ventilator 40 11/15/19 23:00 89 18 114/56 (75) 97 11/15/19 22:30 87 18 119/70 (86) 99 11/15/19 22:00 85 17 117/44 (68) 97 11/15/19 22:00 18 117/44 Mechanical Ventilator 40 11/15/19 21:30 95 20 155/62 (93) 98 11/15/19 21:22 98 167/52 11/15/19 21:00 96 22 162/57 (92) 97 11/15/19 21:00 22 162/57 Mechanical Ventilator 40 11/15/19 20:30 90 20 108/45 (66) 97 11/15/19 20:00 89 11/15/19 20:00 99.0 96 21 129/27 (61) 100 11/15/19 20:00 21 165/57 Mechanical Ventilator 40 11/15/19 20:00 40 11/15/19 20:00 Mechanical Ventilator 11/15/19 19:51 91 22 40 11/15/19 19:30 88 22 94/44 (61) 97 11/15/19 19:00 86 21 108/69 (82) 96 11/15/19 19:00 20 108/69 Mechanical Ventilator 40 11/15/19 18:30 88 20 123/75 (91) 97 11/15/19 18:00 88 20 132/42 (72) 98 11/15/19 18:00 19 132/42 Mechanical Ventilator 40 11/15/19 17:30 89 20 113/43 (66) 98 11/15/19 17:11 20 138/61 Mechanical Ventilator 40 11/15/19 17:00 97 19 138/61 (86) 98 11/15/19 17:00 20 138/61 Mechanical Ventilator 40 11/15/19 16:00 40 11/15/19 16:00 78 20 141/57 (85) 95 11/15/19 16:00 22 141/57 Mechanical Ventilator 40 11/15/19 16:00 Mechanical Ventilator 11/15/19 16:00 78 11/15/19 15:43 108 27 40 11/15/19 15:00 103 24 151/68 (95) 96 11/15/19 14:26 98 151/66 11/15/19 14:00 98 22 151/66 (94) 96 11/15/19 13:00 116 21 150/91 (110) 97 11/15/19 12:20 100 11/15/19 12:15 145 34 40 11/15/19 12:00 Mechanical Ventilator 11/15/19 12:00 40 11/15/19 12:00 132 22 164/86 (112) 100 11/15/19 11:48 110 11/15/19 11:30 103 24 201/89 (126) 98 11/15/19 11:22 95 24 40 40 11/15/19 11:00 89 19 172/68 (102) 98 11/15/19 11:00 19 172/68 Mechanical Ventilator 40 11/15/19 10:30 101 22 157/75 (102) 97 11/15/19 10:07 94 164/76 11/15/19 10:00 19 157/75 Mechanical Ventilator 40 11/15/19 10:00 101 19 164/76 (105) 98 11/15/19 09:30 91 18 136/65 (88) 98 11/15/19 09:00 89 18 127/59 (81) 98 11/15/19 09:00 18 136/65 Mechanical Ventilator 40 Intake and Output 11/15/19 11/16/19 19:00 07:00 Intake Total 1566.8 ml 1505 ml Output Total 550 ml 580 ml Balance 1016.8 ml 925 ml Free Water 30 ml IV Total 1056.8 ml 1025 ml Tube Feeding 320 ml 480 ml Other 160 ml Output Urine Total 550 ml 580 ml # Bowel Movements 2 3 Laboratory Tests Test 11/15/19 10:17 11/16/19 04:00 11/16/19 07:31 POC Whole Blood Glucose 289 MG/DL (74-106) H White Blood Count 22.3 K/UL (4.8-10.8) *H Red Blood Count 3.87 M/UL (4.20-5.40) L Hemoglobin 10.2 G/DL (12.0-16.0) L Hematocrit 35.1 % (37.0-47.0) L Mean Corpuscular Volume 91 FL (80-99) Mean Corpuscular Hemoglobin 26.5 PG (27.0-31.0) L Mean Corpuscular Hemoglobin Concent 29.2 G/DL (32.0-36.0) L Red Cell Distribution Width 16.5 % (11.6-14.8) H Platelet Count 240 K/UL (150-450) Mean Platelet Volume 7.1 FL (6.5-10.1) Neutrophils (%) (Auto) % (45.0-75.0) Lymphocytes (%) (Auto) % (20.0-45.0) Monocytes (%) (Auto) % (1.0-10.0) Eosinophils (%) (Auto) % (0.0-3.0) Basophils (%) (Auto) % (0.0-2.0) Neutrophils % (Manual) Pending Lymphocytes % (Manual) Pending Platelet Estimate Pending Platelet Morphology Pending Sodium Level 150 MMOL/L (136-145) H Potassium Level 4.1 MMOL/L (3.5-5.1) Chloride Level 113 MMOL/L (98-107) H Carbon Dioxide Level 35 MMOL/L (21-32) H Anion Gap 2 mmol/L (5-15) L Blood Urea Nitrogen 25 mg/dL (7-18) H Creatinine 0.9 MG/DL (0.55-1.30) Estimat Glomerular Filtration Rate > 60 mL/min (>60) Glucose Level 204 MG/DL (74-106) #H Calcium Level 8.3 MG/DL (8.5-10.1) L Total Bilirubin 1.1 MG/DL (0.2-1.0) H Direct Bilirubin 0.9 MG/DL (0.0-0.3) H Aspartate Amino Transf (AST/SGOT) 46 U/L (15-37) H Alanine Aminotransferase (ALT/SGPT) 42 U/L (12-78) Alkaline Phosphatase 211 U/L (46-116) H Total Protein 6.0 G/DL (6.4-8.2) L Albumin 2.2 G/DL (3.4-5.0) L Globulin 3.8 g/dL Albumin/Globulin Ratio 0.6 (1.0-2.7) L Arterial Blood pH 7.354 (7.350-7.450) Arterial Blood Partial Pressure CO2 56.6 mmHg (35.0-45.0) *H Arterial Blood Partial Pressure O2 64.3 mmHg (75.0-100.0) L Arterial Blood HCO3 30.8 mmol/L (22.0-26.0) H Arterial Blood Oxygen Saturation 92.2 % (95-100) L Arterial Blood Base Excess 4.2 (-2-2) H Steve Test Positive Objective HEAD AND NECK: No JVD. OG tube Orally intubated LUNGS: Coarse rhonchi. CARDIOVASCULAR: Irregularly irregular. S1 and S2 with no gallop or murmur. ABDOMEN: Soft. EXTREMITIES: No pitting edema. Gabe Snell MD Nov 16, 2019 08:59
[2019-11-16] MEDS: Acetaminophen 650mg/20.3ml NG PRN (09:02)
--- NOTE | 2019-11-16 10:29 | General Progress Note ---
Assessment/Plan Problem List: (1) Afib ICD Codes: I48.91 - Unspecified atrial fibrillation SNOMED: 14772188 (2) Epistaxis ICD Codes: R04.0 - Epistaxis SNOMED: 523057095 (3) Weak ICD Codes: R53.1 - Weakness SNOMED: 66871334 (4) UTI (urinary tract infection) ICD Codes: N39.0 - Urinary tract infection, site not specified SNOMED: 46858085 (5) Diabetes ICD Codes: E11.9 - Type 2 diabetes mellitus without complications SNOMED: 10011277 (6) CHF (congestive heart failure) ICD Codes: I50.9 - Heart failure, unspecified SNOMED: 55086591 (7) Multifocal pneumonia ICD Codes: J18.9 - Pneumonia, unspecified organism SNOMED: 589170620 (8) 2019 novel coronavirus disease (COVID-19) ICD Codes: U07.1 - COVID-19 SNOMED: 865223129 (9) Respiratory failure ICD Codes: J96.90 - Respiratory failure, unspecified, unspecified whether with hypoxia or hypercapnia SNOMED: 317773651 Status: unchanged Assessment/Plan: vent abx bp bs control cbc bmp am Subjective Constitutional: Reports: weakness Allergies: Coded Allergies: No Known Allergies (Unverified , 11/06/19) All Systems: reviewed and negative except above Subjective intubated sedated in icu Objective Last 24 Hour Vital Signs Date Time Temp Pulse Resp B/P (MAP) Pulse Ox O2 Delivery O2 Flow Rate FiO2 11/16/19 10:00 89 18 92/26 (48) 97 11/16/19 09:00 88 18 106/49 (68) 96 11/16/19 08:00 91 18 94/29 (50) 96 11/16/19 08:00 94 11/16/19 07:00 21 140/83 Mechanical Ventilator 50 11/16/19 07:00 109 21 140/83 (102) 96 11/16/19 06:55 50 11/16/19 06:51 100 11/16/19 06:48 111 26 40 40 11/16/19 06:30 95 19 11/16/19 06:00 99.5 102 19 114/44 (67) 96 11/16/19 06:00 98 115/40 11/16/19 06:00 19 114/44 Mechanical Ventilator 40 11/16/19 05:00 95 19 118/64 (82) 96 11/16/19 05:00 19 118/64 Mechanical Ventilator 40 11/16/19 04:00 98 11/16/19 04:00 Mechanical Ventilator 11/16/19 04:00 40 11/16/19 04:00 21 119/38 Mechanical Ventilator 40 11/16/19 04:00 99.0 93 21 119/38 (65) 97 11/16/19 03:37 84 22 40 11/16/19 03:30 94 19 130/48 (75) 97 11/16/19 03:00 93 17 121/49 (73) 97 11/16/19 03:00 17 121/49 Mechanical Ventilator 40 11/16/19 02:30 92 18 105/47 (66) 96 11/16/19 02:00 18 105/47 Mechanical Ventilator 40 11/16/19 02:00 90 18 105/47 (66) 96 11/16/19 01:30 88 18 112/72 (85) 96 11/16/19 01:00 88 19 131/20 (57) 97 11/16/19 01:00 19 131/20 Mechanical Ventilator 40 11/16/19 00:30 95 21 130/59 (82) 98 11/16/19 00:00 40 11/16/19 00:00 Mechanical Ventilator 11/16/19 00:00 99.1 88 19 109/34 (59) 97 11/16/19 00:00 88 11/16/19 00:00 18 130/59 Mechanical Ventilator 40 11/15/19 23:34 84 22 40 11/15/19 23:30 93 18 98/59 (72) 100 11/15/19 23:00 18 98/56 Mechanical Ventilator 40 11/15/19 23:00 89 18 114/56 (75) 97 11/15/19 22:30 87 18 119/70 (86) 99 11/15/19 22:00 85 17 117/44 (68) 97 11/15/19 22:00 18 117/44 Mechanical Ventilator 40 11/15/19 21:30 95 20 155/62 (93) 98 11/15/19 21:22 98 167/52 11/15/19 21:00 96 22 162/57 (92) 97 11/15/19 21:00 22 162/57 Mechanical Ventilator 40 11/15/19 20:30 90 20 108/45 (66) 97 11/15/19 20:00 89 11/15/19 20:00 99.0 96 21 129/27 (61) 100 11/15/19 20:00 21 165/57 Mechanical Ventilator 40 11/15/19 20:00 40 11/15/19 20:00 Mechanical Ventilator 11/15/19 19:51 91 22 40 11/15/19 19:30 88 22 94/44 (61) 97 11/15/19 19:00 86 21 108/69 (82) 96 11/15/19 19:00 20 108/69 Mechanical Ventilator 40 11/15/19 18:30 88 20 123/75 (91) 97 11/15/19 18:00 88 20 132/42 (72) 98 11/15/19 18:00 19 132/42 Mechanical Ventilator 40 11/15/19 17:30 89 20 113/43 (66) 98 11/15/19 17:11 20 138/61 Mechanical Ventilator 40 11/15/19 17:00 97 19 138/61 (86) 98 11/15/19 17:00 20 138/61 Mechanical Ventilator 40 11/15/19 16:00 40 11/15/19 16:00 78 20 141/57 (85) 95 11/15/19 16:00 22 141/57 Mechanical Ventilator 40 11/15/19 16:00 Mechanical Ventilator 11/15/19 16:00 78 11/15/19 15:43 108 27 40 11/15/19 15:00 103 24 151/68 (95) 96 11/15/19 14:26 98 151/66 11/15/19 14:00 98 22 151/66 (94) 96 11/15/19 13:00 116 21 150/91 (110) 97 11/15/19 12:20 100 11/15/19 12:15 145 34 40 11/15/19 12:00 Mechanical Ventilator 11/15/19 12:00 40 11/15/19 12:00 132 22 164/86 (112) 100 11/15/19 11:48 110 11/15/19 11:30 103 24 201/89 (126) 98 11/15/19 11:22 95 24 40 40 11/15/19 11:00 89 19 172/68 (102) 98 7/26/20 11:00 19 172/68 Mechanical Ventilator 40 11/15/19 10:30 101 22 157/75 (102) 97 Intake and Output 11/15/19 11/16/19 19:00 07:00 Intake Total 1566.8 ml 1505 ml Output Total 550 ml 580 ml Balance 1016.8 ml 925 ml Free Water 30 ml IV Total 1056.8 ml 1025 ml Tube Feeding 320 ml 480 ml Other 160 ml Output Urine Total 550 ml 580 ml # Bowel Movements 2 3 Laboratory Tests 11/16/19 04:00: White Blood Count 22.3*H, Red Blood Count 3.87L, Hemoglobin 10.2L, Hematocrit 35.1L, Mean Corpuscular Volume 91, Mean Corpuscular Hemoglobin 26.5L, Mean Corpuscular Hemoglobin Concent 29.2L, Red Cell Distribution Width 16.5H, Platelet Count 240, Mean Platelet Volume 7.1, Neutrophils (%) (Auto) , Lymphocytes (%) (Auto) , Monocytes (%) (Auto) , Eosinophils (%) (Auto) , Basophils (%) (Auto) , Differential Total Cells Counted 100, Neutrophils % ( Manual) 88H, Lymphocytes % (Manual) 7L, Monocytes % (Manual) 4, Eosinophils % ( Manual) 1, Basophils % (Manual) 0, Band Neutrophils 0, Platelet Estimate Adequate, Platelet Morphology Normal, Hypochromasia 1+, Anisocytosis 1+, Sodium Level 150H, Potassium Level 4.1, Chloride Level 113H, Carbon Dioxide Level 35H, Anion Gap 2L, Blood Urea Nitrogen 25H, Creatinine 0.9, Estimat Glomerular Filtration Rate > 60, Glucose Level 204#H, Calcium Level 8.3L, Total Bilirubin 1.1H, Direct Bilirubin 0.9H, Aspartate Amino Transf (AST/SGOT) 46H, Alanine Aminotransferase (ALT/SGPT) 42, Alkaline Phosphatase 211H, Total Protein 6.0L, Albumin 2.2L, Globulin 3.8, Albumin/Globulin Ratio 0.6L 11/16/19 07:31: Arterial Blood pH 7.354, Arterial Blood Partial Pressure CO2 56.6*H, Arterial Blood Partial Pressure O2 64.3L, Arterial Blood HCO3 30.8H, Arterial Blood Oxygen Saturation 92.2L, Arterial Blood Base Excess 4.2H, Steve Test Positive Height (Feet): 5 Height (Inches): 3.00 Weight (Pounds): 344 General Appearance: lethargic EENT: normal ENT inspection Neck: normal alignment Cardiovascular: normal rate, regular rhythm Respiratory/Chest: no respiratory distress, no accessory muscle use Extremities: normal inspection Skin: normal pigmentation Gustabo Carter DO Nov 16, 2019 10:29
--- NOTE | 2019-11-16 10:59 | Infectious Diseases Prog Note ---
Assessment/Plan Assessment/Plan antibiotics : remdesivir, dexamethasone A 1. COVID 19 pneumonia on 40 percent Fi O2, PEEP 5, saturation 97 percent 2. respiratory failure 3. leucocytosis likely secondary to steroids 4. diabetes mellitus 5. hypertension P 1. complete remdesivir day 10 2. d/c dexamethasone 3. will follow up cultures 4. continue isolation Subjective ROS Limited/Unobtainable: Yes Allergies: Coded Allergies: No Known Allergies (Unverified , 11/06/19) Objective Last 24 Hour Vital Signs Date Time Temp Pulse Resp B/P (MAP) Pulse Ox O2 Delivery O2 Flow Rate FiO2 11/16/19 10:41 93 18 40 40 11/16/19 10:00 89 18 92/26 (48) 97 11/16/19 09:32 99.2 11/16/19 09:00 88 18 106/49 (68) 96 11/16/19 08:00 Mechanical Ventilator 11/16/19 08:00 91 18 94/29 (50) 96 11/16/19 08:00 94 11/16/19 07:00 21 140/83 Mechanical Ventilator 50 11/16/19 07:00 109 21 140/83 (102) 96 11/16/19 06:55 50 11/16/19 06:51 100 11/16/19 06:48 111 26 40 40 11/16/19 06:30 95 19 11/16/19 06:00 99.5 102 19 114/44 (67) 96 11/16/19 06:00 98 115/40 11/16/19 06:00 19 114/44 Mechanical Ventilator 40 11/16/19 05:00 95 19 118/64 (82) 96 11/16/19 05:00 19 118/64 Mechanical Ventilator 40 11/16/19 04:00 98 11/16/19 04:00 Mechanical Ventilator 11/16/19 04:00 40 11/16/19 04:00 21 119/38 Mechanical Ventilator 40 11/16/19 04:00 99.0 93 21 119/38 (65) 97 11/16/19 03:37 84 22 40 11/16/19 03:30 94 19 130/48 (75) 97 11/16/19 03:00 93 17 121/49 (73) 97 11/16/19 03:00 17 121/49 Mechanical Ventilator 40 11/16/19 02:30 92 18 105/47 (66) 96 11/16/19 02:00 18 105/47 Mechanical Ventilator 40 11/16/19 02:00 90 18 105/47 (66) 96 11/16/19 01:30 88 18 112/72 (85) 96 11/16/19 01:00 88 19 131/20 (57) 97 11/16/19 01:00 19 131/20 Mechanical Ventilator 40 11/16/19 00:30 95 21 130/59 (82) 98 11/16/19 00:00 40 11/16/19 00:00 Mechanical Ventilator 11/16/19 00:00 99.1 88 19 109/34 (59) 97 11/16/19 00:00 88 11/16/19 00:00 18 130/59 Mechanical Ventilator 40 11/15/19 23:34 84 22 40 11/15/19 23:30 93 18 98/59 (72) 100 11/15/19 23:00 18 98/56 Mechanical Ventilator 40 11/15/19 23:00 89 18 114/56 (75) 97 11/15/19 22:30 87 18 119/70 (86) 99 11/15/19 22:00 85 17 117/44 (68) 97 11/15/19 22:00 18 117/44 Mechanical Ventilator 40 11/15/19 21:30 95 20 155/62 (93) 98 11/15/19 21:22 98 167/52 11/15/19 21:00 96 22 162/57 (92) 97 11/15/19 21:00 22 162/57 Mechanical Ventilator 40 11/15/19 20:30 90 20 108/45 (66) 97 11/15/19 20:00 89 11/15/19 20:00 99.0 96 21 129/27 (61) 100 11/15/19 20:00 21 165/57 Mechanical Ventilator 40 11/15/19 20:00 40 11/15/19 20:00 Mechanical Ventilator 11/15/19 19:51 91 22 40 11/15/19 19:30 88 22 94/44 (61) 97 11/15/19 19:00 86 21 108/69 (82) 96 11/15/19 19:00 20 108/69 Mechanical Ventilator 40 11/15/19 18:30 88 20 123/75 (91) 97 11/15/19 18:00 88 20 132/42 (72) 98 11/15/19 18:00 19 132/42 Mechanical Ventilator 40 11/15/19 17:30 89 20 113/43 (66) 98 11/15/19 17:11 20 138/61 Mechanical Ventilator 40 11/15/19 17:00 97 19 138/61 (86) 98 11/15/19 17:00 20 138/61 Mechanical Ventilator 40 11/15/19 16:00 40 11/15/19 16:00 78 20 141/57 (85) 95 11/15/19 16:00 22 141/57 Mechanical Ventilator 40 11/15/19 16:00 Mechanical Ventilator 11/15/19 16:00 78 11/15/19 15:43 108 27 40 11/15/19 15:00 103 24 151/68 (95) 96 11/15/19 14:26 98 151/66 11/15/19 14:00 98 22 151/66 (94) 96 11/15/19 13:00 116 21 150/91 (110) 97 11/15/19 12:20 100 11/15/19 12:15 145 34 40 11/15/19 12:00 Mechanical Ventilator 11/15/19 12:00 40 11/15/19 12:00 132 22 164/86 (112) 100 11/15/19 11:48 110 11/15/19 11:30 103 24 201/89 (126) 98 11/15/19 11:22 95 24 40 40 11/15/19 11:00 89 19 172/68 (102) 98 11/15/19 11:00 19 172/68 Mechanical Ventilator 40 Height (Feet): 5 Height (Inches): 3.00 Weight (Pounds): 344 HEENT: other - intubated Laboratory Tests Test 11/16/19 04:00 11/16/19 07:31 White Blood Count 22.3 K/UL (4.8-10.8) *H Red Blood Count 3.87 M/UL (4.20-5.40) L Hemoglobin 10.2 G/DL (12.0-16.0) L Hematocrit 35.1 % (37.0-47.0) L Mean Corpuscular Volume 91 FL (80-99) Mean Corpuscular Hemoglobin 26.5 PG (27.0-31.0) L Mean Corpuscular Hemoglobin Concent 29.2 G/DL (32.0-36.0) L Red Cell Distribution Width 16.5 % (11.6-14.8) H Platelet Count 240 K/UL (150-450) Mean Platelet Volume 7.1 FL (6.5-10.1) Neutrophils (%) (Auto) % (45.0-75.0) Lymphocytes (%) (Auto) % (20.0-45.0) Monocytes (%) (Auto) % (1.0-10.0) Eosinophils (%) (Auto) % (0.0-3.0) Basophils (%) (Auto) % (0.0-2.0) Differential Total Cells Counted 100 Neutrophils % (Manual) 88 % (45-75) H Lymphocytes % (Manual) 7 % (20-45) L Monocytes % (Manual) 4 % (1-10) Eosinophils % (Manual) 1 % (0-3) Basophils % (Manual) 0 % (0-2) Band Neutrophils 0 % (0-8) Platelet Estimate Adequate Platelet Morphology Normal Hypochromasia 1+ Anisocytosis 1+ Sodium Level 150 MMOL/L (136-145) H Potassium Level 4.1 MMOL/L (3.5-5.1) Chloride Level 113 MMOL/L (98-107) H Carbon Dioxide Level 35 MMOL/L (21-32) H Anion Gap 2 mmol/L (5-15) L Blood Urea Nitrogen 25 mg/dL (7-18) H Creatinine 0.9 MG/DL (0.55-1.30) Estimat Glomerular Filtration Rate > 60 mL/min (>60) Glucose Level 204 MG/DL (74-106) #H Calcium Level 8.3 MG/DL (8.5-10.1) L Total Bilirubin 1.1 MG/DL (0.2-1.0) H Direct Bilirubin 0.9 MG/DL (0.0-0.3) H Aspartate Amino Transf (AST/SGOT) 46 U/L (15-37) H Alanine Aminotransferase (ALT/SGPT) 42 U/L (12-78) Alkaline Phosphatase 211 U/L (46-116) H Total Protein 6.0 G/DL (6.4-8.2) L Albumin 2.2 G/DL (3.4-5.0) L Globulin 3.8 g/dL Albumin/Globulin Ratio 0.6 (1.0-2.7) L Arterial Blood pH 7.354 (7.350-7.450) Arterial Blood Partial Pressure CO2 56.6 mmHg (35.0-45.0) *H Arterial Blood Partial Pressure O2 64.3 mmHg (75.0-100.0) L Arterial Blood HCO3 30.8 mmol/L (22.0-26.0) H Arterial Blood Oxygen Saturation 92.2 % (95-100) L Arterial Blood Base Excess 4.2 (-2-2) H Steve Test Positive Current Medications Medications (Trade) Dose Ordered Sig/Robyn Route PRN Reason Start Time Stop Time Status Last Admin Dose Admin Acetaminophen (Tylenol) 650 mg Q6H PRN NG Temp >100.5 11/12/19 00:15 12/12/19 00:14 11/16/19 09:02 Apixaban (Eliquis) 5 mg BID NGT 11/14/19 09:00 02/12/20 08:59 11/16/19 08:57 Chlorhexidine Gluconate (Miya-Hex 2%) 1 applic DAILY@2000 TOPIC 11/08/19 21:30 02/06/20 21:29 11/15/19 20:13 Clonidine HCl (Catapres Tab) 0.1 mg Q4H PRN NG For High Blood Pressure 11/13/19 17:00 02/09/20 10:59 Dexamethasone Sodium Phosphate (Decadron 10mg/ ml Inj) 6 mg DAILY IV 11/09/19 09:00 02/06/20 09:14 11/16/19 08:57 Dextrose 1,000 ml @ 75 mls/hr [id number] IV 11/14/19 08:15 12/14/19 08:14 11/16/19 01:15 Dextrose (Dextrose 50%) 25 ml Q30M PRN IV Hypoglycemia 11/08/19 12:30 02/05/20 02:59 Dextrose (Dextrose 50%) 50 ml Q30M PRN IV Hypoglycemia 11/08/19 12:30 02/05/20 02:59 Famotidine (Pepcid I.v.) 20 mg Q12HR IVP 11/08/19 15:30 12/08/19 15:29 11/16/19 08:57 Fentanyl Citrate 250 ml @ 0 mls/hr Q24H IV 11/08/19 12:29 02/06/20 12:28 11/15/19 17:11 Folic Acid (Folate) 2 mg DAILY GT 11/15/19 09:00 12/15/19 08:59 11/16/19 08:57 Insulin Aspart (NovoLOG) EVERY 6 HOURS SUBQ 11/15/19 12:00 02/11/20 20:59 11/16/19 06:05 Insulin Detemir (Levemir) 20 units Q12HR SUBQ 11/15/19 21:00 02/11/20 20:59 11/16/19 08:59 Lorazepam (Ativan 2mg/ml 1ml) 1 mg Q4H PRN IV For Anxiety 11/14/19 10:00 11/21/19 09:59 11/16/19 09:00 Metoprolol Tartrate (Lopressor) 25 mg Q8HR NG 11/15/19 14:00 02/09/20 10:59 11/15/19 21:22 Remdesivir 100 mg/ Sodium Chloride 250 ml @ 250 mls/hr Q24H IV 11/12/19 13:00 11/16/19 13:59 11/15/19 13:19 Rosette Bowman MD Nov 16, 2019 10:59
--- NOTE | 2019-11-16 12:02 | Hematology/Onc Progress Note ---
Assessment/Plan Assessment/Plan # Anemia of chronic disease due to underlying chronic medical issues, multifactorial v Gi bleed in this case likely related covid19+++++++++ --> Anemia workup has been ordered, rule out gi bleed --> No evidence of hemolysis is noted, peripheral smear has been reviewed. --> Hgb goal >7. Transfuse prn. --> Epogen or iron at this time is not particularly indicated --> Medications have been reviewed --> low threshold for gi evaluation in case has occult + --> hgb 10-->9.8-->9.2-->9.7-->10.7->10->11->10.2 # Leukocytosis/elevated white blood cell count, unspecified likely related to covid19 --> have reviewed peripheral smear and bandemia/neutrophilia noted --> continue antibiotics if they have been started by ID team zosyn --> on remdesivir, dexamathasone --> monitor for resolution --> wbc 12->11-->11-->13->16-->21 # COVID 19 pneumonia --> on vent --> respiratory failure --> s/p vent # Diabetes mellitus --> iss and bs goal <140 # Hypertension --> sbp goal <150 Appreciate consultation and jimena EL Subjective Allergies: Coded Allergies: No Known Allergies (Unverified , 11/06/19) All Systems: reviewed and negative except above Subjective 11/09 weaning prn, meds reviewed, labs noted, hgb 9.2 11/10 on vent, no bleeding, hgb remains low, jimena Rn Jose R in am 11/11 on vent, fluids, ogf tube as well, labs pending in am 11/12 remains altered, no bleeding, labs reviewed, cbc noted 11/13 attempted weaning, but did not do well, no bleeding, hgb 10 11/14 intubated, weaning, on vent, with og, labs noted, abx 11/15 labs noted, no bleedign, weaning protocol, no night sweats, elev wbc, with fevers Objective Objective Current Medications Medications (Trade) Dose Ordered Sig/Robyn Route PRN Reason Start Time Stop Time Status Last Admin Dose Admin Acetaminophen (Tylenol) 650 mg Q6H PRN NG Temp >100.5 11/12/19 00:15 12/12/19 00:14 11/16/19 09:02 Apixaban (Eliquis) 5 mg BID NGT 11/14/19 09:00 02/12/20 08:59 11/16/19 08:57 Chlorhexidine Gluconate (Miya-Hex 2%) 1 applic DAILY@2000 TOPIC 11/08/19 21:30 02/06/20 21:29 11/15/19 20:13 Clonidine HCl (Catapres Tab) 0.1 mg Q4H PRN NG For High Blood Pressure 11/13/19 17:00 02/09/20 10:59 Dextrose 1,000 ml @ 75 mls/hr [id number] IV 11/14/19 08:15 12/14/19 08:14 11/16/19 01:15 Dextrose (Dextrose 50%) 25 ml Q30M PRN IV Hypoglycemia 11/08/19 12:30 02/05/20 02:59 Dextrose (Dextrose 50%) 50 ml Q30M PRN IV Hypoglycemia 11/08/19 12:30 02/05/20 02:59 Famotidine (Pepcid I.v.) 20 mg Q12HR IVP 11/08/19 15:30 12/08/19 15:29 11/16/19 08:57 Fentanyl Citrate 250 ml @ 0 mls/hr Q24H IV 11/08/19 12:29 02/06/20 12:28 11/15/19 17:11 Folic Acid (Folate) 2 mg DAILY GT 11/15/19 09:00 12/15/19 08:59 11/16/19 08:57 Insulin Aspart (NovoLOG) EVERY 6 HOURS SUBQ 11/15/19 12:00 02/11/20 20:59 11/16/19 06:05 Insulin Detemir (Levemir) 20 units Q12HR SUBQ 11/15/19 21:00 02/11/20 20:59 11/16/19 08:59 Lorazepam (Ativan 2mg/ml 1ml) 1 mg Q4H PRN IV For Anxiety 11/14/19 10:00 11/21/19 09:59 11/16/19 09:00 Metoprolol Tartrate (Lopressor) 25 mg Q8HR NG 11/15/19 14:00 02/09/20 10:59 11/15/19 21:22 Remdesivir 100 mg/ Sodium Chloride 250 ml @ 250 mls/hr Q24H IV 11/12/19 13:00 11/16/19 13:59 11/15/19 13:19 Last 24 Hour Vital Signs Date Time Temp Pulse Resp B/P (MAP) Pulse Ox O2 Delivery O2 Flow Rate FiO2 11/16/19 11:00 89 19 117/49 (71) 97 11/16/19 10:41 93 18 40 40 11/16/19 10:00 89 18 92/26 (48) 97 11/16/19 10:00 18 92/26 Mechanical Ventilator 40 11/16/19 09:32 99.2 11/16/19 09:00 18 106/49 Mechanical Ventilator 40 11/16/19 09:00 88 18 106/49 (68) 96 11/16/19 08:00 Mechanical Ventilator 11/16/19 08:00 91 18 94/29 (50) 96 11/16/19 08:00 18 94/29 Mechanical Ventilator 40 11/16/19 08:00 94 11/16/19 07:00 21 140/83 Mechanical Ventilator 50 11/16/19 07:00 109 21 140/83 (102) 96 11/16/19 06:55 50 11/16/19 06:51 100 11/16/19 06:48 111 26 40 40 11/16/19 06:30 95 19 11/16/19 06:00 99.5 102 19 114/44 (67) 96 11/16/19 06:00 98 115/40 11/16/19 06:00 19 114/44 Mechanical Ventilator 40 11/16/19 05:00 95 19 118/64 (82) 96 11/16/19 05:00 19 118/64 Mechanical Ventilator 40 11/16/19 04:00 98 11/16/19 04:00 Mechanical Ventilator 11/16/19 04:00 40 11/16/19 04:00 21 119/38 Mechanical Ventilator 40 11/16/19 04:00 99.0 93 21 119/38 (65) 97 11/16/19 03:37 84 22 40 11/16/19 03:30 94 19 130/48 (75) 97 11/16/19 03:00 93 17 121/49 (73) 97 11/16/19 03:00 17 121/49 Mechanical Ventilator 40 11/16/19 02:30 92 18 105/47 (66) 96 11/16/19 02:00 18 105/47 Mechanical Ventilator 40 11/16/19 02:00 90 18 105/47 (66) 96 11/16/19 01:30 88 18 112/72 (85) 96 11/16/19 01:00 88 19 131/20 (57) 97 11/16/19 01:00 19 131/20 Mechanical Ventilator 40 11/16/19 00:30 95 21 130/59 (82) 98 11/16/19 00:00 40 11/16/19 00:00 Mechanical Ventilator 11/16/19 00:00 99.1 88 19 109/34 (59) 97 11/16/19 00:00 88 11/16/19 00:00 18 130/59 Mechanical Ventilator 40 11/15/19 23:34 84 22 40 11/15/19 23:30 93 18 98/59 (72) 100 11/15/19 23:00 18 98/56 Mechanical Ventilator 40 11/15/19 23:00 89 18 114/56 (75) 97 11/15/19 22:30 87 18 119/70 (86) 99 11/15/19 22:00 85 17 117/44 (68) 97 11/15/19 22:00 18 117/44 Mechanical Ventilator 40 11/15/19 21:30 95 20 155/62 (93) 98 11/15/19 21:22 98 167/52 11/15/19 21:00 96 22 162/57 (92) 97 11/15/19 21:00 22 162/57 Mechanical Ventilator 40 11/15/19 20:30 90 20 108/45 (66) 97 11/15/19 20:00 89 11/15/19 20:00 99.0 96 21 129/27 (61) 100 11/15/19 20:00 21 165/57 Mechanical Ventilator 40 11/15/19 20:00 40 11/15/19 20:00 Mechanical Ventilator 11/15/19 19:51 91 22 40 11/15/19 19:30 88 22 94/44 (61) 97 11/15/19 19:00 86 21 108/69 (82) 96 11/15/19 19:00 20 108/69 Mechanical Ventilator 40 11/15/19 18:30 88 20 123/75 (91) 97 11/15/19 18:00 88 20 132/42 (72) 98 11/15/19 18:00 19 132/42 Mechanical Ventilator 40 11/15/19 17:30 89 20 113/43 (66) 98 11/15/19 17:11 20 138/61 Mechanical Ventilator 40 11/15/19 17:00 97 19 138/61 (86) 98 11/15/19 17:00 20 138/61 Mechanical Ventilator 40 11/15/19 16:00 40 11/15/19 16:00 78 20 141/57 (85) 95 11/15/19 16:00 22 141/57 Mechanical Ventilator 40 11/15/19 16:00 Mechanical Ventilator 11/15/19 16:00 78 11/15/19 15:43 108 27 40 11/15/19 15:00 103 24 151/68 (95) 96 11/15/19 14:26 98 151/66 11/15/19 14:00 98 22 151/66 (94) 96 11/15/19 13:00 116 21 150/91 (110) 97 11/15/19 12:20 100 11/15/19 12:15 145 34 40 11/15/19 12:00 Mechanical Ventilator 11/15/19 12:00 40 11/15/19 12:00 132 22 164/86 (112) 100 11/15/19 11:48 110 11/15/19 11:30 103 24 201/89 (126) 98 11/15/19 11:22 95 24 40 40 11/15/19 11:00 89 19 172/68 (102) 98 11/15/19 11:00 19 172/68 Mechanical Ventilator 40 11/15/19 10:30 101 22 157/75 (102) 97 11/15/19 10:07 94 164/76 11/15/19 10:00 19 157/75 Mechanical Ventilator 40 11/15/19 10:00 101 19 164/76 (105) 98 11/15/19 09:30 91 18 136/65 (88) 98 11/15/19 09:00 89 18 127/59 (81) 98 11/15/19 09:00 18 136/65 Mechanical Ventilator 40 11/15/19 08:30 89 15 137/72 (93) 97 11/15/19 08:00 91 11/15/19 08:00 Mechanical Ventilator 11/15/19 08:00 17 137/72 Mechanical Ventilator 40 11/15/19 08:00 40 11/15/19 08:00 98.2 91 18 123/76 (92) 97 11/15/19 07:00 94 18 162/84 (110) 97 11/15/19 07:00 16 162/88 Mechanical Ventilator 40 11/15/19 06:55 101 23 40 11/15/19 06:30 95 10 147/88 (107) 96 11/15/19 06:30 66 19 11/15/19 06:00 15 136/73 Mechanical Ventilator 40 11/15/19 06:00 90 17 136/73 (94) 97 11/15/19 05:30 96 20 139/70 (93) 99 11/15/19 05:00 12 149/99 Mechanical Ventilator 40 11/15/19 05:00 96 10 169/79 (109) 96 11/15/19 04:39 94 13 181/87 (118) 95 11/15/19 04:30 106 23 176/111 (132) 11/15/19 04:00 12 141/75 Mechanical Ventilator 40 11/15/19 04:00 Mechanical Ventilator 11/15/19 04:00 98.3 87 16 141/75 (97) 100 11/15/19 04:00 40 11/15/19 04:00 80 11/15/19 03:30 88 17 141/85 (103) 100 11/15/19 03:02 97 18 40 11/15/19 03:00 12 156/99 Mechanical Ventilator 40 11/15/19 03:00 93 21 156/99 (118) 100 11/15/19 02:30 89 23 145/68 (93) 100 11/15/19 02:00 21 147/84 Mechanical Ventilator 40 11/15/19 02:00 87 21 147/84 (105) 100 11/15/19 01:30 88 21 139/73 (95) 100 11/15/19 01:00 21 142/84 Mechanical Ventilator 40 11/15/19 01:00 87 23 142/81 (101) 95 11/15/19 00:30 86 21 128/61 (83) 98 11/15/19 00:00 Mechanical Ventilator 11/15/19 00:00 98.2 86 20 140/74 (96) 99 11/15/19 00:00 40 11/15/19 00:00 20 140/74 Mechanical Ventilator 40 11/15/19 00:00 79 11/14/19 23:30 88 18 155/79 (104) 100 11/14/19 23:00 83 22 135/72 (93) 96 11/14/19 23:00 22 135/72 Mechanical Ventilator 40 11/14/19 22:41 78 18 40 11/14/19 22:30 77 18 117/65 (82) 100 11/14/19 22:00 77 18 112/64 (80) 100 11/14/19 22:00 18 112/64 Mechanical Ventilator 40 11/14/19 21:30 75 19 107/55 (72) 96 11/14/19 21:15 18 108/56 Mechanical Ventilator 40 11/14/19 21:00 74 18 108/56 (73) 99 11/14/19 21:00 74 99/56 11/14/19 21:00 18 108/56 Mechanical Ventilator 40 11/14/19 20:30 72 19 99/53 (68) 98 11/14/19 20:00 99.0 73 18 112/65 (81) 97 11/14/19 20:00 40 11/14/19 20:00 18 112/64 Mechanical Ventilator 40 11/14/19 20:00 Mechanical Ventilator 11/14/19 20:00 82 11/14/19 19:30 74 19 113/60 (77) 98 11/14/19 19:05 78 19 40 11/14/19 19:00 71 18 127/59 (81) 99 11/14/19 19:00 19 127/59 Mechanical Ventilator 40 11/14/19 18:30 76 19 125/64 (84) 98 11/14/19 18:00 75 10 112/61 (78) 98 11/14/19 18:00 20 112/61 Mechanical Ventilator 40 11/14/19 17:30 79 18 119/70 (86) 98 11/14/19 17:00 80 17 125/61 (82) 98 11/14/19 17:00 20 125/61 Mechanical Ventilator 40 11/14/19 16:30 85 18 148/72 (97) 97 11/14/19 16:00 Mechanical Ventilator 11/14/19 16:00 98.4 83 17 130/72 (91) 96 11/14/19 16:00 18 130/72 Mechanical Ventilator 40 11/14/19 16:00 73 11/14/19 16:00 40 11/14/19 15:30 80 15 135/59 (84) 96 11/14/19 15:03 18 120/72 Mechanical Ventilator 40 11/14/19 15:00 83 18 170/84 (112) 98 11/14/19 14:49 77 18 40 11/14/19 14:30 75 18 120/72 (88) 97 11/14/19 14:00 70 20 118/58 (78) 97 11/14/19 14:00 18 118/58 Mechanical Ventilator 40 11/14/19 13:30 67 18 109/63 (78) 96 11/14/19 13:00 74 18 116/62 (80) 96 11/14/19 13:00 18 116/62 Mechanical Ventilator 40 11/14/19 12:30 71 19 112/59 (76) 96 Intake and Output 11/15/19 11/16/19 19:00 07:00 Intake Total 1566.8 ml 1505 ml Output Total 550 ml 580 ml Balance 1016.8 ml 925 ml Free Water 30 ml IV Total 1056.8 ml 1025 ml Tube Feeding 320 ml 480 ml Other 160 ml Output Urine Total 550 ml 580 ml # Bowel Movements 2 3 Labs Test 11/13/19 21:10 11/14/19 03:30 11/14/19 04:00 11/14/19 04:19 D-Dimer 8.74 mg/L FEU (0.00-0.49) White Blood Count 15.8 K/UL (4.8-10.8) Red Blood Count 3.95 M/UL (4.20-5.40) Hemoglobin 10.6 G/DL (12.0-16.0) Hematocrit 36.0 % (37.0-47.0) Mean Corpuscular Volume 91 FL (80-99) Mean Corpuscular Hemoglobin 26.8 PG (27.0-31.0) Mean Corpuscular Hemoglobin Concent 29.4 G/DL (32.0-36.0) Red Cell Distribution Width 17.1 % (11.6-14.8) Platelet Count 207 K/UL (150-450) Mean Platelet Volume 6.7 FL (6.5-10.1) Neutrophils (%) (Auto) % (45.0-75.0) Lymphocytes (%) (Auto) % (20.0-45.0) Monocytes (%) (Auto) % (1.0-10.0) Eosinophils (%) (Auto) % (0.0-3.0) Basophils (%) (Auto) % (0.0-2.0) Differential Total Cells Counted 100 Neutrophils % (Manual) 90 % (45-75) Lymphocytes % (Manual) 4 % (20-45) Monocytes % (Manual) 6 % (1-10) Eosinophils % (Manual) 0 % (0-3) Basophils % (Manual) 0 % (0-2) Band Neutrophils 0 % (0-8) Platelet Estimate Adequate Platelet Morphology Normal Polychromasia 1+ Hypochromasia 1+ Anisocytosis 1+ Sodium Level 146 MMOL/L (136-145) Potassium Level 5.4 MMOL/L (3.5-5.1) Chloride Level 115 MMOL/L (98-107) Carbon Dioxide Level 27 MMOL/L (21-32) Anion Gap 4 mmol/L (5-15) Blood Urea Nitrogen 40 mg/dL (7-18) Creatinine 1.2 MG/DL (0.55-1.30) Estimat Glomerular Filtration Rate 47.0 mL/min (>60) Glucose Level 357 MG/DL (74-106) Uric Acid 6.0 MG/DL (2.6-7.2) Calcium Level 8.5 MG/DL (8.5-10.1) Phosphorus Level 3.2 MG/DL (2.5-4.9) Magnesium Level 2.4 MG/DL (1.8-2.4) Iron Level 29 ug/dL (50-175) Total Iron Binding Capacity 346 ug/dL (250-450) Percent Iron Saturation 8 % (15-50) Unsaturated Iron Binding 317 ug/dL (112-346) Ferritin 51 NG/ML (8-388) Total Bilirubin 0.9 MG/DL (0.2-1.0) Direct Bilirubin 0.5 MG/DL (0.0-0.3) Gamma Glutamyl Transpeptidase 238 U/L (5-85) Aspartate Amino Transf (AST/SGOT) 45 U/L (15-37) Alanine Aminotransferase (ALT/SGPT) 40 U/L (12-78) Alkaline Phosphatase 208 U/L (46-116) Lactate Dehydrogenase 373 U/L (81-234) Total Creatine Kinase 36 U/L (26-308) C-Reactive Protein, Quantitative 1.7 mg/dL (0.00-0.90) Pro-B-Type Natriuretic Peptide 5577 pg/mL (0-125) Total Protein 6.5 G/DL (6.4-8.2) Albumin 2.2 G/DL (3.4-5.0) Globulin 4.3 g/dL Albumin/Globulin Ratio 0.5 (1.0-2.7) Vitamin B12 Level 1372 PG/ML (193-986) Folate 7.9 NG/ML (8.6-58.9) Test 11/14/19 08:30 11/14/19 12:54 11/14/19 16:38 11/15/19 04:00 POC Whole Blood Glucose 301 MG/DL (74-106) 357 MG/DL (74-106) 389 MG/DL (74-106) White Blood Count 20.7 K/UL (4.8-10.8) Red Blood Count 4.24 M/UL (4.20-5.40) Hemoglobin 11.1 G/DL (12.0-16.0) Hematocrit 39.0 % (37.0-47.0) Mean Corpuscular Volume 92 FL (80-99) Mean Corpuscular Hemoglobin 26.1 PG (27.0-31.0) Mean Corpuscular Hemoglobin Concent 28.3 G/DL (32.0-36.0) Red Cell Distribution Width 16.9 % (11.6-14.8) Platelet Count 268 K/UL (150-450) Mean Platelet Volume 7.1 FL (6.5-10.1) Neutrophils (%) (Auto) % (45.0-75.0) Lymphocytes (%) (Auto) % (20.0-45.0) Monocytes (%) (Auto) % (1.0-10.0) Eosinophils (%) (Auto) % (0.0-3.0) Basophils (%) (Auto) % (0.0-2.0) Differential Total Cells Counted 100 Neutrophils % (Manual) 86 % (45-75) Lymphocytes % (Manual) 6 % (20-45) Monocytes % (Manual) 8 % (1-10) Eosinophils % (Manual) 0 % (0-3) Basophils % (Manual) 0 % (0-2) Band Neutrophils 0 % (0-8) Platelet Estimate Adequate Platelet Morphology Normal Hypochromasia 1+ Anisocytosis 1+ Sodium Level 149 MMOL/L (136-145) Potassium Level 4.6 MMOL/L (3.5-5.1) Chloride Level 113 MMOL/L (98-107) Carbon Dioxide Level 34 MMOL/L (21-32) Anion Gap 2 mmol/L (5-15) Blood Urea Nitrogen 34 mg/dL (7-18) Creatinine 0.9 MG/DL (0.55-1.30) Estimat Glomerular Filtration Rate > 60 mL/min (>60) Glucose Level 370 MG/DL (74-106) Calcium Level 8.4 MG/DL (8.5-10.1) Phosphorus Level 3.4 MG/DL (2.5-4.9) Magnesium Level 2.3 MG/DL (1.8-2.4) Total Bilirubin 1.1 MG/DL (0.2-1.0) Direct Bilirubin 0.9 MG/DL (0.0-0.3) Aspartate Amino Transf (AST/SGOT) 41 U/L (15-37) Alanine Aminotransferase (ALT/SGPT) 44 U/L (12-78) Alkaline Phosphatase 211 U/L (46-116) C-Reactive Protein, Quantitative 1.7 mg/dL (0.00-0.90) Pro-B-Type Natriuretic Peptide 3673 pg/mL (0-125) Total Protein 6.5 G/DL (6.4-8.2) Albumin 2.4 G/DL (3.4-5.0) Globulin 4.1 g/dL Albumin/Globulin Ratio 0.6 (1.0-2.7) Test 11/15/19 04:15 11/15/19 10:17 11/16/19 04:00 11/16/19 07:31 POC Whole Blood Glucose 289 MG/DL (74-106) White Blood Count 22.3 K/UL (4.8-10.8) Red Blood Count 3.87 M/UL (4.20-5.40) Hemoglobin 10.2 G/DL (12.0-16.0) Hematocrit 35.1 % (37.0-47.0) Mean Corpuscular Volume 91 FL (80-99) Mean Corpuscular Hemoglobin 26.5 PG (27.0-31.0) Mean Corpuscular Hemoglobin Concent 29.2 G/DL (32.0-36.0) Red Cell Distribution Width 16.5 % (11.6-14.8) Platelet Count 240 K/UL (150-450) Mean Platelet Volume 7.1 FL (6.5-10.1) Neutrophils (%) (Auto) % (45.0-75.0) Lymphocytes (%) (Auto) % (20.0-45.0) Monocytes (%) (Auto) % (1.0-10.0) Eosinophils (%) (Auto) % (0.0-3.0) Basophils (%) (Auto) % (0.0-2.0) Differential Total Cells Counted 100 Neutrophils % (Manual) 88 % (45-75) Lymphocytes % (Manual) 7 % (20-45) Monocytes % (Manual) 4 % (1-10) Eosinophils % (Manual) 1 % (0-3) Basophils % (Manual) 0 % (0-2) Band Neutrophils 0 % (0-8) Platelet Estimate Adequate Platelet Morphology Normal Hypochromasia 1+ Anisocytosis 1+ Sodium Level 150 MMOL/L (136-145) Potassium Level 4.1 MMOL/L (3.5-5.1) Chloride Level 113 MMOL/L (98-107) Carbon Dioxide Level 35 MMOL/L (21-32) Anion Gap 2 mmol/L (5-15) Blood Urea Nitrogen 25 mg/dL (7-18) Creatinine 0.9 MG/DL (0.55-1.30) Estimat Glomerular Filtration Rate > 60 mL/min (>60) Glucose Level 204 MG/DL (74-106) Calcium Level 8.3 MG/DL (8.5-10.1) Total Bilirubin 1.1 MG/DL (0.2-1.0) Direct Bilirubin 0.9 MG/DL (0.0-0.3) Aspartate Amino Transf (AST/SGOT) 46 U/L (15-37) Alanine Aminotransferase (ALT/SGPT) 42 U/L (12-78) Alkaline Phosphatase 211 U/L (46-116) Total Protein 6.0 G/DL (6.4-8.2) Albumin 2.2 G/DL (3.4-5.0) Globulin 3.8 g/dL Albumin/Globulin Ratio 0.6 (1.0-2.7) Arterial Blood pH 7.354 (7.350-7.450) Arterial Blood Partial Pressure CO2 56.6 mmHg (35.0-45.0) Arterial Blood Partial Pressure O2 64.3 mmHg (75.0-100.0) Arterial Blood HCO3 30.8 mmol/L (22.0-26.0) Arterial Blood Oxygen Saturation 92.2 % (95-100) Arterial Blood Base Excess 4.2 (-2-2) Steve Test Positive Height (Feet): 5 Height (Inches): 3.00 Weight (Pounds): 344 Objective Physical Exam: Vitals: reviewed General: NAD HEENT: nc, at Neck: supple Chest: clear breath sounds on vent++ Cardiovascular: RRR, no s3, s4 Abdomen: soft, nontender, nd Extremities: no cce, normal range of motion Neuro: alert and oriented Isamel Fischer MD Nov 16, 2019 12:02
--- NOTE | 2019-11-16 12:32 | Surgery Progress Note ---
Surgery Progress Note Subjective Procedure Performed Hemostasis of left nostril hemorrhage emergency Additional Comments weaning vent still no bleeding labs noted Objective Last 24 Hour Vital Signs Date Time Temp Pulse Resp B/P (MAP) Pulse Ox O2 Delivery O2 Flow Rate FiO2 11/16/19 12:00 40 11/16/19 12:00 98.2 93 17 109/34 (59) 97 11/16/19 12:00 Mechanical Ventilator 11/16/19 12:00 96 11/16/19 12:00 18 109/34 Mechanical Ventilator 40 11/16/19 11:00 89 19 117/49 (71) 97 11/16/19 11:00 18 117/40 Mechanical Ventilator 40 11/16/19 10:41 93 18 40 40 11/16/19 10:00 89 18 92/26 (48) 97 11/16/19 10:00 18 92/26 Mechanical Ventilator 40 11/16/19 09:32 99.2 11/16/19 09:00 18 106/49 Mechanical Ventilator 40 11/16/19 09:00 88 18 106/49 (68) 96 11/16/19 08:00 Mechanical Ventilator 11/16/19 08:00 91 18 94/29 (50) 96 11/16/19 08:00 18 94/29 Mechanical Ventilator 40 11/16/19 08:00 94 11/16/19 08:00 40 11/16/19 07:00 21 140/83 Mechanical Ventilator 50 11/16/19 07:00 109 21 140/83 (102) 96 11/16/19 06:55 50 11/16/19 06:51 100 11/16/19 06:48 111 26 40 40 11/16/19 06:30 95 19 11/16/19 06:00 99.5 102 19 114/44 (67) 96 11/16/19 06:00 98 115/40 11/16/19 06:00 19 114/44 Mechanical Ventilator 40 11/16/19 05:00 95 19 118/64 (82) 96 11/16/19 05:00 19 118/64 Mechanical Ventilator 40 11/16/19 04:00 98 11/16/19 04:00 Mechanical Ventilator 11/16/19 04:00 40 11/16/19 04:00 21 119/38 Mechanical Ventilator 40 11/16/19 04:00 99.0 93 21 119/38 (65) 97 11/16/19 03:37 84 22 40 11/16/19 03:30 94 19 130/48 (75) 97 11/16/19 03:00 93 17 121/49 (73) 97 11/16/19 03:00 17 121/49 Mechanical Ventilator 40 11/16/19 02:30 92 18 105/47 (66) 96 11/16/19 02:00 18 105/47 Mechanical Ventilator 40 11/16/19 02:00 90 18 105/47 (66) 96 11/16/19 01:30 88 18 112/72 (85) 96 11/16/19 01:00 88 19 131/20 (57) 97 11/16/19 01:00 19 131/20 Mechanical Ventilator 40 11/16/19 00:30 95 21 130/59 (82) 98 11/16/19 00:00 40 11/16/19 00:00 Mechanical Ventilator 11/16/19 00:00 99.1 88 19 109/34 (59) 97 11/16/19 00:00 88 11/16/19 00:00 18 130/59 Mechanical Ventilator 40 11/15/19 23:34 84 22 40 11/15/19 23:30 93 18 98/59 (72) 100 11/15/19 23:00 18 98/56 Mechanical Ventilator 40 11/15/19 23:00 89 18 114/56 (75) 97 11/15/19 22:30 87 18 119/70 (86) 99 11/15/19 22:00 85 17 117/44 (68) 97 11/15/19 22:00 18 117/44 Mechanical Ventilator 40 11/15/19 21:30 95 20 155/62 (93) 98 11/15/19 21:22 98 167/52 11/15/19 21:00 96 22 162/57 (92) 97 11/15/19 21:00 22 162/57 Mechanical Ventilator 40 11/15/19 20:30 90 20 108/45 (66) 97 11/15/19 20:00 89 11/15/19 20:00 99.0 96 21 129/27 (61) 100 11/15/19 20:00 21 165/57 Mechanical Ventilator 40 11/15/19 20:00 40 11/15/19 20:00 Mechanical Ventilator 11/15/19 19:51 91 22 40 11/15/19 19:30 88 22 94/44 (61) 97 11/15/19 19:00 86 21 108/69 (82) 96 11/15/19 19:00 20 108/69 Mechanical Ventilator 40 11/15/19 18:30 88 20 123/75 (91) 97 11/15/19 18:00 88 20 132/42 (72) 98 11/15/19 18:00 19 132/42 Mechanical Ventilator 40 11/15/19 17:30 89 20 113/43 (66) 98 11/15/19 17:11 20 138/61 Mechanical Ventilator 40 11/15/19 17:00 97 19 138/61 (86) 98 11/15/19 17:00 20 138/61 Mechanical Ventilator 40 11/15/19 16:00 40 11/15/19 16:00 78 20 141/57 (85) 95 11/15/19 16:00 22 141/57 Mechanical Ventilator 40 11/15/19 16:00 Mechanical Ventilator 11/15/19 16:00 78 11/15/19 15:43 108 27 40 11/15/19 15:00 103 24 151/68 (95) 96 11/15/19 14:26 98 151/66 11/15/19 14:00 98 22 151/66 (94) 96 11/15/19 13:00 116 21 150/91 (110) 97 I&O Intake and Output 11/15/19 11/16/19 19:00 07:00 Intake Total 1566.8 ml 1505 ml Output Total 550 ml 580 ml Balance 1016.8 ml 925 ml Free Water 30 ml IV Total 1056.8 ml 1025 ml Tube Feeding 320 ml 480 ml Other 160 ml Output Urine Total 550 ml 580 ml # Bowel Movements 2 3 Dressing: other Wound: other Drains: other Cardiovascular: RSR Respiratory: clear, decreased breath sounds Abdomen: non-tender, present bowel sounds Extremities: edema, no tenderness, no cyanosis Laboratory Tests Test 11/16/19 04:00 11/16/19 05:54 11/16/19 07:31 White Blood Count 22.3 K/UL (4.8-10.8) *H Red Blood Count 3.87 M/UL (4.20-5.40) L Hemoglobin 10.2 G/DL (12.0-16.0) L Hematocrit 35.1 % (37.0-47.0) L Mean Corpuscular Volume 91 FL (80-99) Mean Corpuscular Hemoglobin 26.5 PG (27.0-31.0) L Mean Corpuscular Hemoglobin Concent 29.2 G/DL (32.0-36.0) L Red Cell Distribution Width 16.5 % (11.6-14.8) H Platelet Count 240 K/UL (150-450) Mean Platelet Volume 7.1 FL (6.5-10.1) Neutrophils (%) (Auto) % (45.0-75.0) Lymphocytes (%) (Auto) % (20.0-45.0) Monocytes (%) (Auto) % (1.0-10.0) Eosinophils (%) (Auto) % (0.0-3.0) Basophils (%) (Auto) % (0.0-2.0) Differential Total Cells Counted 100 Neutrophils % (Manual) 88 % (45-75) H Lymphocytes % (Manual) 7 % (20-45) L Monocytes % (Manual) 4 % (1-10) Eosinophils % (Manual) 1 % (0-3) Basophils % (Manual) 0 % (0-2) Band Neutrophils 0 % (0-8) Platelet Estimate Adequate Platelet Morphology Normal Hypochromasia 1+ Anisocytosis 1+ Sodium Level 150 MMOL/L (136-145) H Potassium Level 4.1 MMOL/L (3.5-5.1) Chloride Level 113 MMOL/L (98-107) H Carbon Dioxide Level 35 MMOL/L (21-32) H Anion Gap 2 mmol/L (5-15) L Blood Urea Nitrogen 25 mg/dL (7-18) H Creatinine 0.9 MG/DL (0.55-1.30) Estimat Glomerular Filtration Rate > 60 mL/min (>60) Glucose Level 204 MG/DL (74-106) #H Calcium Level 8.3 MG/DL (8.5-10.1) L Total Bilirubin 1.1 MG/DL (0.2-1.0) H Direct Bilirubin 0.9 MG/DL (0.0-0.3) H Aspartate Amino Transf (AST/SGOT) 46 U/L (15-37) H Alanine Aminotransferase (ALT/SGPT) 42 U/L (12-78) Alkaline Phosphatase 211 U/L (46-116) H Total Protein 6.0 G/DL (6.4-8.2) L Albumin 2.2 G/DL (3.4-5.0) L Globulin 3.8 g/dL Albumin/Globulin Ratio 0.6 (1.0-2.7) L POC Whole Blood Glucose Pending Arterial Blood pH 7.354 (7.350-7.450) Arterial Blood Partial Pressure CO2 56.6 mmHg (35.0-45.0) *H Arterial Blood Partial Pressure O2 64.3 mmHg (75.0-100.0) L Arterial Blood HCO3 30.8 mmol/L (22.0-26.0) H Arterial Blood Oxygen Saturation 92.2 % (95-100) L Arterial Blood Base Excess 4.2 (-2-2) H Steve Test Positive Plan Problems: (1) Weak (2) UTI (urinary tract infection) (3) Hypoxia (4) Epistaxis Assessment & Plan: Severe after taxis left nostril Rhino Rocket placed hemostasis noted over the course 24 hours hemoglobin stable Lovenox been stopped. The balloon of both ports of the Rhino Rocket were deflated today. The rocket itself was not removed and will monitor over the course next 24 hours hemostasis. If so will gently remove and plan for local monitoring. Currently wean ventilator as tolerated. Goals of extubation when possible. deflated balloon 11/08 removed trumpet 11/09 will monitor for bleeding wean vent plan extubation discussed with pulm (5) Fluid overload Assessment & Plan: Continue central venous catheter for now. Will anticipate removal once patient stable for extubation. Thank you for allowing me to participate patient's care (6) Diabetes (7) CHF (congestive heart failure) (8) Afib (9) Multifocal pneumonia (10) 2019 novel coronavirus disease (COVID-19) (11) Respiratory failure Ortiz Fleming Nov 16, 2019 12:32
[2019-11-16] MEDS: fentaNYL 2500mcg/NS 250ml 250 ML IV SCH (13:01)
[2019-11-16] MEDS: Remdesivir 100mg 100 MG in NS 230 ML IV SCH (13:11)
--- NOTE | 2019-11-16 13:27 | Nephrology Progress Note ---
Assessment/Plan Problem List: (1) Electrolyte imbalance (2) Diabetes (3) 2019 novel coronavirus disease (COVID-19) (4) Respiratory failure Assessment 1. COVID-19 pneumonia. 2. Diabetes and hyperglycemia 3. Hypertension. 4. Hypoxic respiratory failure 5. Morbid obesity with BMI of 65.5 6. Nasal bleeding 7. Lactic acidosis 8. Hyperkalemia Plan Patient's urine output is low. We will give a trial of albumin and Lasix. Discussed with RN Change IV to D5W 75 cc an hour Levemir 20 units subcu every 12 hours Kayexalate for high potassium as needed Monitor electrolytes and renal parameters Tight blood sugar control, long-acting insulin as needed Keep the blood pressure in check Per orders Subjective ROS Limited/Unobtainable: Yes Objective Objective Last 24 Hour Vital Signs Date Time Temp Pulse Resp B/P (MAP) Pulse Ox O2 Delivery O2 Flow Rate FiO2 11/16/19 13:12 96 139/67 11/16/19 13:01 18 139/67 40 11/16/19 13:00 18 139/67 Mechanical Ventilator 40 11/16/19 13:00 98 16 139/67 (91) 98 11/16/19 12:00 40 11/16/19 12:00 98.2 93 17 109/34 (59) 97 11/16/19 12:00 Mechanical Ventilator 11/16/19 12:00 96 11/16/19 12:00 18 109/34 Mechanical Ventilator 40 11/16/19 11:00 89 19 117/49 (71) 97 11/16/19 11:00 18 117/40 Mechanical Ventilator 40 11/16/19 10:41 93 18 40 40 11/16/19 10:00 89 18 92/26 (48) 97 11/16/19 10:00 18 92/26 Mechanical Ventilator 40 11/16/19 09:32 99.2 11/16/19 09:00 18 106/49 Mechanical Ventilator 40 11/16/19 09:00 88 18 106/49 (68) 96 11/16/19 08:00 Mechanical Ventilator 11/16/19 08:00 91 18 94/29 (50) 96 11/16/19 08:00 18 94/29 Mechanical Ventilator 40 11/16/19 08:00 94 11/16/19 08:00 40 11/16/19 07:00 21 140/83 Mechanical Ventilator 50 11/16/19 07:00 109 21 140/83 (102) 96 11/16/19 06:55 50 11/16/19 06:51 100 11/16/19 06:48 111 26 40 40 11/16/19 06:30 95 19 11/16/19 06:00 99.5 102 19 114/44 (67) 96 11/16/19 06:00 98 115/40 11/16/19 06:00 19 114/44 Mechanical Ventilator 40 11/16/19 05:00 95 19 118/64 (82) 96 11/16/19 05:00 19 118/64 Mechanical Ventilator 40 11/16/19 04:00 98 11/16/19 04:00 Mechanical Ventilator 11/16/19 04:00 40 11/16/19 04:00 21 119/38 Mechanical Ventilator 40 11/16/19 04:00 99.0 93 21 119/38 (65) 97 11/16/19 03:37 84 22 40 11/16/19 03:30 94 19 130/48 (75) 97 11/16/19 03:00 93 17 121/49 (73) 97 11/16/19 03:00 17 121/49 Mechanical Ventilator 40 11/16/19 02:30 92 18 105/47 (66) 96 11/16/19 02:00 18 105/47 Mechanical Ventilator 40 11/16/19 02:00 90 18 105/47 (66) 96 11/16/19 01:30 88 18 112/72 (85) 96 11/16/19 01:00 88 19 131/20 (57) 97 11/16/19 01:00 19 131/20 Mechanical Ventilator 40 11/16/19 00:30 95 21 130/59 (82) 98 11/16/19 00:00 40 11/16/19 00:00 Mechanical Ventilator 11/16/19 00:00 99.1 88 19 109/34 (59) 97 11/16/19 00:00 88 11/16/19 00:00 18 130/59 Mechanical Ventilator 40 11/15/19 23:34 84 22 40 11/15/19 23:30 93 18 98/59 (72) 100 11/15/19 23:00 18 98/56 Mechanical Ventilator 40 11/15/19 23:00 89 18 114/56 (75) 97 11/15/19 22:30 87 18 119/70 (86) 99 11/15/19 22:00 85 17 117/44 (68) 97 11/15/19 22:00 18 117/44 Mechanical Ventilator 40 11/15/19 21:30 95 20 155/62 (93) 98 11/15/19 21:22 98 167/52 11/15/19 21:00 96 22 162/57 (92) 97 11/15/19 21:00 22 162/57 Mechanical Ventilator 40 11/15/19 20:30 90 20 108/45 (66) 97 11/15/19 20:00 89 11/15/19 20:00 99.0 96 21 129/27 (61) 100 11/15/19 20:00 21 165/57 Mechanical Ventilator 40 11/15/19 20:00 40 11/15/19 20:00 Mechanical Ventilator 11/15/19 19:51 91 22 40 11/15/19 19:30 88 22 94/44 (61) 97 11/15/19 19:00 86 21 108/69 (82) 96 11/15/19 19:00 20 108/69 Mechanical Ventilator 40 11/15/19 18:30 88 20 123/75 (91) 97 11/15/19 18:00 88 20 132/42 (72) 98 11/15/19 18:00 19 132/42 Mechanical Ventilator 40 11/15/19 17:30 89 20 113/43 (66) 98 11/15/19 17:11 20 138/61 Mechanical Ventilator 40 11/15/19 17:00 97 19 138/61 (86) 98 11/15/19 17:00 20 138/61 Mechanical Ventilator 40 11/15/19 16:00 40 11/15/19 16:00 78 20 141/57 (85) 95 11/15/19 16:00 22 141/57 Mechanical Ventilator 40 11/15/19 16:00 Mechanical Ventilator 11/15/19 16:00 78 11/15/19 15:43 108 27 40 11/15/19 15:00 103 24 151/68 (95) 96 11/15/19 14:26 98 151/66 11/15/19 14:00 98 22 151/66 (94) 96 Intake and Output 11/15/19 11/16/19 19:00 07:00 Intake Total 1566.8 ml 1505 ml Output Total 550 ml 580 ml Balance 1016.8 ml 925 ml Free Water 30 ml IV Total 1056.8 ml 1025 ml Tube Feeding 320 ml 480 ml Other 160 ml Output Urine Total 550 ml 580 ml # Bowel Movements 2 3 Current Medications Medications (Trade) Dose Ordered Sig/Robyn Route PRN Reason Start Time Stop Time Status Last Admin Dose Admin Acetaminophen (Tylenol) 650 mg Q6H PRN NG Temp >100.5 11/12/19 00:15 12/12/19 00:14 11/16/19 09:02 Apixaban (Eliquis) 5 mg BID NGT 11/14/19 09:00 02/12/20 08:59 11/16/19 08:57 Chlorhexidine Gluconate (Miya-Hex 2%) 1 applic DAILY@2000 TOPIC 11/08/19 21:30 02/06/20 21:29 11/15/19 20:13 Clonidine HCl (Catapres Tab) 0.1 mg Q4H PRN NG For High Blood Pressure 11/13/19 17:00 02/09/20 10:59 Dextrose 1,000 ml @ 75 mls/hr [id number] IV 11/14/19 08:15 12/14/19 08:14 11/16/19 13:12 Dextrose (Dextrose 50%) 25 ml Q30M PRN IV Hypoglycemia 11/08/19 12:30 02/05/20 02:59 Dextrose (Dextrose 50%) 50 ml Q30M PRN IV Hypoglycemia 11/08/19 12:30 02/05/20 02:59 Famotidine (Pepcid I.v.) 20 mg Q12HR IVP 11/08/19 15:30 12/08/19 15:29 11/16/19 08:57 Fentanyl Citrate 250 ml @ 0 mls/hr Q24H IV 11/08/19 12:29 02/06/20 12:28 11/16/19 13:01 Folic Acid (Folate) 2 mg DAILY GT 11/15/19 09:00 12/15/19 08:59 11/16/19 08:57 Insulin Aspart (NovoLOG) EVERY 6 HOURS SUBQ 11/15/19 12:00 02/11/20 20:59 11/16/19 06:05 Insulin Detemir (Levemir) 20 units Q12HR SUBQ 11/15/19 21:00 02/11/20 20:59 11/16/19 08:59 Lorazepam (Ativan 2mg/ml 1ml) 1 mg Q4H PRN IV For Anxiety 11/14/19 10:00 11/21/19 09:59 11/16/19 09:00 Metoprolol Tartrate (Lopressor) 25 mg Q8HR NG 11/15/19 14:00 02/09/20 10:59 11/16/19 13:12 Remdesivir 100 mg/ Sodium Chloride 250 ml @ 250 mls/hr Q24H IV 11/12/19 13:00 11/16/19 13:59 11/16/19 13:11 Laboratory Tests 11/16/19 04:00: White Blood Count 22.3*H, Red Blood Count 3.87L, Hemoglobin 10.2L, Hematocrit 35.1L, Mean Corpuscular Volume 91, Mean Corpuscular Hemoglobin 26.5L, Mean Corpuscular Hemoglobin Concent 29.2L, Red Cell Distribution Width 16.5H, Platelet Count 240, Mean Platelet Volume 7.1, Neutrophils (%) (Auto) , Lymphocytes (%) (Auto) , Monocytes (%) (Auto) , Eosinophils (%) (Auto) , Basophils (%) (Auto) , Differential Total Cells Counted 100, Neutrophils % ( Manual) 88H, Lymphocytes % (Manual) 7L, Monocytes % (Manual) 4, Eosinophils % ( Manual) 1, Basophils % (Manual) 0, Band Neutrophils 0, Platelet Estimate Adequate, Platelet Morphology Normal, Hypochromasia 1+, Anisocytosis 1+, Sodium Level 150H, Potassium Level 4.1, Chloride Level 113H, Carbon Dioxide Level 35H, Anion Gap 2L, Blood Urea Nitrogen 25H, Creatinine 0.9, Estimat Glomerular Filtration Rate > 60, Glucose Level 204#H, Calcium Level 8.3L, Total Bilirubin 1.1H, Direct Bilirubin 0.9H, Aspartate Amino Transf (AST/SGOT) 46H, Alanine Aminotransferase (ALT/SGPT) 42, Alkaline Phosphatase 211H, Total Protein 6.0L, Albumin 2.2L, Globulin 3.8, Albumin/Globulin Ratio 0.6L 11/16/19 05:54: POC Whole Blood Glucose [Pending] 11/16/19 07:31: Arterial Blood pH 7.354, Arterial Blood Partial Pressure CO2 56.6*H, Arterial Blood Partial Pressure O2 64.3L, Arterial Blood HCO3 30.8H, Arterial Blood Oxygen Saturation 92.2L, Arterial Blood Base Excess 4.2H, Steve Test Positive Height (Feet): 5 Height (Inches): 3.00 Weight (Pounds): 344 General Appearance: no apparent distress EENT: other - Intubated on ventilator Cardiovascular: tachycardia Respiratory/Chest: decreased breath sounds Abdomen: distended Papa Young MD Nov 16, 2019 13:27
[2019-11-16] MEDS: Dyna-Hex 2% Top Sol 2oz TOPIC SCH (19:49)
[2019-11-17] VITALS (48 sets, daily range): BP systolic 92–156; BP diastolic 51–88
[2019-11-17 04:39] LABS: HEMATOCRIT 34.3 % (37.0-47.0); HEMOGLOBIN 10.2 G/DL (12.0-16.0); MEAN CORPUSCULAR VOLUME 90 FL (80-99); PLATELET COUNT 234 K/UL (150-450); RED BLOOD COUNT 3.82 M/UL (4.20-5.40); RED CELL DISTRIBUTION WIDTH 16.5 % (11.6-14.8); WHITE BLOOD COUNT 20.9 K/UL (4.8-10.8)
[2019-11-17 04:52] LABS: ANION GAP 1 mmol/L (5-15); BLOOD UREA NITROGEN 26 mg/dL (7-18); CALCIUM 8.5 MG/DL (8.5-10.1); CARBON DIOXIDE 34 MMOL/L (21-32); CHLORIDE 110 MMOL/L (98-107); CREATININE 0.9 MG/DL (0.55-1.30); POTASSIUM 4.2 MMOL/L (3.5-5.1); SODIUM 145 MMOL/L (136-145)
[2019-11-17 05:04] LABS: ALANINE AMINOTRANSFERASE 33 U/L (12-78); ALBUMIN 2.4 G/DL (3.4-5.0); ALKALINE PHOSPHATASE 180 U/L (46-116); ASPARTATE AMINO TRANSFERASE 35 U/L (15-37); BILIRUBIN,DIRECT 0.8 MG/DL (0.0-0.3); BILIRUBIN,TOTAL 1.2 MG/DL (0.2-1.0); PHOSPHORUS 2.9 MG/DL (2.5-4.9)
[2019-11-17] MEDS: NovoLOG Insulin Flexpen SUBQ SCH ×5 (05:59→23:05)
[2019-11-17] MEDS ORDERED: Lidocaine 1% Plain 30 ml INJ PRN (09:00)
[2019-11-17] MEDS ORDERED: Heparin1,000 units/500ml Premix(Conc:2 units/ml) IV PRN (09:00)
[2019-11-17] MEDS: Eliquis 5mg tablet NGT SCH ×2 (09:23→18:05)
[2019-11-17] MEDS: Levemir Flexpen SUBQ SCH ×2 (09:44→20:44)
--- NOTE | 2019-11-17 10:45 | General Progress Note ---
Assessment/Plan Problem List: (1) Respiratory failure ICD Codes: J96.90 - Respiratory failure, unspecified, unspecified whether with hypoxia or hypercapnia SNOMED: 627538741 (2) 2019 novel coronavirus disease (COVID-19) ICD Codes: U07.1 - COVID-19 SNOMED: 125866608 (3) Multifocal pneumonia ICD Codes: J18.9 - Pneumonia, unspecified organism SNOMED: 667032873 (4) Afib ICD Codes: I48.91 - Unspecified atrial fibrillation SNOMED: 02194960 (5) CHF (congestive heart failure) ICD Codes: I50.9 - Heart failure, unspecified SNOMED: 26100659 (6) Diabetes ICD Codes: E11.9 - Type 2 diabetes mellitus without complications SNOMED: 11800230 (7) Fluid overload ICD Codes: E87.70 - Fluid overload, unspecified SNOMED: 84408606 (8) Epistaxis ICD Codes: R04.0 - Epistaxis SNOMED: 555556810 Status: unchanged Assessment/Plan: fu H&H prn blood transfusion NGTF no residuals iv fluid per nephrology off all laxatives given diarrhea patient on Eliquis will fu Subjective ROS Limited/Unobtainable: No Allergies: Coded Allergies: No Known Allergies (Unverified , 11/06/19) Objective Last 24 Hour Vital Signs Date Time Temp Pulse Resp B/P (MAP) Pulse Ox O2 Delivery O2 Flow Rate FiO2 11/17/19 10:35 86 17 137/77 (97) 98 11/17/19 10:05 81 19 119/88 (98) 97 11/17/19 09:48 100 11/17/19 09:46 40 11/17/19 09:40 40 11/17/19 09:00 76 18 151/80 (103) 97 11/17/19 08:30 77 17 120/64 (82) 97 11/17/19 08:00 40 11/17/19 08:00 73 11/17/19 08:00 73 18 102/54 (70) 97 11/17/19 07:40 80 18 40 11/17/19 07:30 75 18 114/55 (74) 96 11/17/19 07:00 18 92/56 Mechanical Ventilator 40 11/17/19 07:00 74 18 92/56 (68) 95 11/17/19 06:30 74 18 106/60 (75) 96 11/17/19 06:30 68 19 11/17/19 06:00 86 18 140/62 (88) 96 11/17/19 06:00 18 140/62 Mechanical Ventilator 40 11/17/19 05:43 81 150/81 11/17/19 05:30 85 18 150/81 (104) 99 11/17/19 05:00 18 122/63 Mechanical Ventilator 40 11/17/19 05:00 82 18 122/63 (82) 97 11/17/19 04:30 84 19 137/51 (79) 97 11/17/19 04:00 Mechanical Ventilator 11/17/19 04:00 40 11/17/19 04:00 18 132/62 Mechanical Ventilator 40 11/17/19 04:00 98.5 88 18 132/66 (88) 96 11/17/19 04:00 90 11/17/19 03:30 87 18 141/82 (101) 98 11/17/19 03:01 81 20 40 11/17/19 03:00 84 18 136/61 (86) 99 11/17/19 03:00 18 136/61 Mechanical Ventilator 40 11/17/19 02:30 88 18 139/78 (98) 98 11/17/19 02:00 19 142/67 Mechanical Ventilator 40 11/17/19 02:00 90 19 142/67 (92) 99 11/17/19 01:30 81 18 123/55 (77) 97 11/17/19 01:00 82 18 113/65 (81) 96 11/17/19 01:00 18 113/65 Mechanical Ventilator 40 11/17/19 00:30 79 18 114/66 (82) 96 11/17/19 00:00 40 11/17/19 00:00 18 119/55 Mechanical Ventilator 40 11/17/19 00:00 98.8 81 18 119/55 (76) 96 11/17/19 00:00 Mechanical Ventilator 11/17/19 00:00 85 11/16/19 23:30 78 18 100/55 (70) 96 11/16/19 23:06 86 18 40 11/16/19 23:00 18 115/65 Mechanical Ventilator 40 11/16/19 23:00 79 18 115/65 (82) 96 11/16/19 22:30 85 18 124/55 (78) 95 11/16/19 22:14 84 117/66 11/16/19 22:00 18 117/66 Mechanical Ventilator 40 11/16/19 22:00 84 18 117/66 (83) 96 11/16/19 21:30 81 18 123/75 (91) 96 11/16/19 21:00 83 18 113/57 (75) 96 11/16/19 21:00 18 113/57 Mechanical Ventilator 40 11/16/19 20:30 82 18 101/48 (65) 96 11/16/19 20:00 87 18 111/46 (67) 96 11/16/19 20:00 Mechanical Ventilator 11/16/19 20:00 40 11/16/19 20:00 18 111/46 Mechanical Ventilator 40 11/16/19 20:00 91 11/16/19 19:32 92 18 40 11/16/19 19:30 87 18 129/59 (82) 99 11/16/19 19:00 18 130/64 Mechanical Ventilator 40 11/16/19 19:00 89 19 130/64 (86) 96 11/16/19 18:29 89 22 141/75 (97) 97 11/16/19 18:00 19 141/75 Mechanical Ventilator 40 11/16/19 17:59 98.0 86 19 128/79 (95) 96 11/16/19 17:00 19 108/78 Mechanical Ventilator 40 11/16/19 17:00 86 18 106/60 (75) 96 11/16/19 16:00 40 11/16/19 16:00 18 106/43 Mechanical Ventilator 40 11/16/19 16:00 Mechanical Ventilator 11/16/19 16:00 90 18 120/63 (82) 96 11/16/19 16:00 86 11/16/19 15:05 103 18 40 11/16/19 15:00 83 18 113/73 (86) 97 11/16/19 15:00 18 112/51 Mechanical Ventilator 40 11/16/19 14:00 80 18 95/34 (54) 97 11/16/19 14:00 18 99/57 Mechanical Ventilator 40 11/16/19 13:12 96 139/67 11/16/19 13:01 18 139/67 40 11/16/19 13:00 18 139/67 Mechanical Ventilator 40 11/16/19 13:00 98 16 139/67 (91) 98 11/16/19 12:00 40 11/16/19 12:00 98.2 93 17 109/34 (59) 97 11/16/19 12:00 Mechanical Ventilator 11/16/19 12:00 96 11/16/19 12:00 18 109/34 Mechanical Ventilator 40 11/16/19 11:00 89 19 117/49 (71) 97 11/16/19 11:00 18 117/40 Mechanical Ventilator 40 Intake and Output 11/16/19 11/17/19 19:00 07:00 Intake Total 1809 ml 1471.5 ml Output Total 1525 ml 750 ml Balance 284 ml 721.5 ml Free Water 60 ml IV Total 1209 ml 991.5 ml Tube Feeding 480 ml 480 ml Blood Product 60 ml Output Urine Total 1525 ml 750 ml # Bowel Movements 3 1 Laboratory Tests 11/16/19 13:19: POC Whole Blood Glucose [Pending] 11/16/19 17:10: POC Whole Blood Glucose 268H 11/16/19 20:49: POC Whole Blood Glucose [Pending] 11/16/19 23:58: POC Whole Blood Glucose [Pending] 11/17/19 03:45: White Blood Count 20.9H, Red Blood Count 3.82L, Hemoglobin 10.2L, Hematocrit 34.3L, Mean Corpuscular Volume 90, Mean Corpuscular Hemoglobin 26.7L, Mean Corpuscular Hemoglobin Concent 29.7L, Red Cell Distribution Width 16.5H, Platelet Count 234, Mean Platelet Volume 7.0, Neutrophils (%) (Auto) , Lymphocytes (%) (Auto) , Monocytes (%) (Auto) , Eosinophils (%) (Auto) , Basophils (%) (Auto) , Differential Total Cells Counted 100, Neutrophils % ( Manual) 95H, Lymphocytes % (Manual) 3L, Monocytes % (Manual) 2, Eosinophils % ( Manual) 0, Basophils % (Manual) 0, Band Neutrophils 0, Platelet Estimate Adequate, Platelet Morphology Normal, Anisocytosis 1+, Sodium Level 145, Potassium Level 4.2, Chloride Level 110H, Carbon Dioxide Level 34H, Anion Gap 1L , Blood Urea Nitrogen 26H, Creatinine 0.9, Estimat Glomerular Filtration Rate > 60, Glucose Level 252H, Calcium Level 8.5, Phosphorus Level 2.9, Magnesium Level 2.2, Total Bilirubin 1.2H, Direct Bilirubin 0.8H, Aspartate Amino Transf ( AST/SGOT) 35, Alanine Aminotransferase (ALT/SGPT) 33, Alkaline Phosphatase 180H , Total Protein 6.4, Albumin 2.4L 11/17/19 09:40: POC Whole Blood Glucose [Pending] Height (Feet): 5 Height (Inches): 3.00 Weight (Pounds): 325 General Appearance: no apparent distress EENT: normal ENT inspection Neck: supple Cardiovascular: normal rate Respiratory/Chest: decreased breath sounds Abdomen: normal bowel sounds, non tender, soft Extremities: non-tender Case Patel MD Nov 17, 2019 10:45
--- NOTE | 2019-11-17 10:51 | Cardiac Electrophysiology PN ---
Assessment/Plan Assessment/Plan 1. Atrial fibrillation. Change metoprolol to 50 bid and Eliquis 5 bid EF 55% on echo. 2. HTN, change Lopressor to 50 bid 3. COVID positive pneumonia. On Remdesevir and dexamethasone. 4. Diabetes, on insulin. 5. Respiratory failure on the Vent. 6. S/P Massive nasal bleed. DW [employer] Subjective Subjective In ICU off pressors on the vent with 40% Fio2. Being weaned off In atrial fib rate controlled on Lopressor 25 bid. Objective Last 24 Hour Vital Signs Date Time Temp Pulse Resp B/P (MAP) Pulse Ox O2 Delivery O2 Flow Rate FiO2 11/17/19 10:35 86 17 137/77 (97) 98 11/17/19 10:05 81 19 119/88 (98) 97 11/17/19 09:48 100 11/17/19 09:46 40 11/17/19 09:40 40 11/17/19 09:00 76 18 151/80 (103) 97 11/17/19 08:30 77 17 120/64 (82) 97 11/17/19 08:00 40 11/17/19 08:00 73 11/17/19 08:00 Mechanical Ventilator 11/17/19 08:00 73 18 102/54 (70) 97 11/17/19 07:40 80 18 40 11/17/19 07:30 75 18 114/55 (74) 96 11/17/19 07:00 18 92/56 Mechanical Ventilator 40 11/17/19 07:00 74 18 92/56 (68) 95 11/17/19 06:30 74 18 106/60 (75) 96 11/17/19 06:30 68 19 11/17/19 06:00 86 18 140/62 (88) 96 11/17/19 06:00 18 140/62 Mechanical Ventilator 40 11/17/19 05:43 81 150/81 11/17/19 05:30 85 18 150/81 (104) 99 11/17/19 05:00 18 122/63 Mechanical Ventilator 40 11/17/19 05:00 82 18 122/63 (82) 97 11/17/19 04:30 84 19 137/51 (79) 97 11/17/19 04:00 Mechanical Ventilator 11/17/19 04:00 40 11/17/19 04:00 18 132/62 Mechanical Ventilator 40 11/17/19 04:00 98.5 88 18 132/66 (88) 96 11/17/19 04:00 90 11/17/19 03:30 87 18 141/82 (101) 98 11/17/19 03:01 81 20 40 11/17/19 03:00 84 18 136/61 (86) 99 11/17/19 03:00 18 136/61 Mechanical Ventilator 40 11/17/19 02:30 88 18 139/78 (98) 98 11/17/19 02:00 19 142/67 Mechanical Ventilator 40 11/17/19 02:00 90 19 142/67 (92) 99 11/17/19 01:30 81 18 123/55 (77) 97 11/17/19 01:00 82 18 113/65 (81) 96 11/17/19 01:00 18 113/65 Mechanical Ventilator 40 11/17/19 00:30 79 18 114/66 (82) 96 11/17/19 00:00 40 11/17/19 00:00 18 119/55 Mechanical Ventilator 40 11/17/19 00:00 98.8 81 18 119/55 (76) 96 11/17/19 00:00 Mechanical Ventilator 11/17/19 00:00 85 11/16/19 23:30 78 18 100/55 (70) 96 11/16/19 23:06 86 18 40 11/16/19 23:00 18 115/65 Mechanical Ventilator 40 11/16/19 23:00 79 18 115/65 (82) 96 11/16/19 22:30 85 18 124/55 (78) 95 11/16/19 22:14 84 117/66 11/16/19 22:00 18 117/66 Mechanical Ventilator 40 11/16/19 22:00 84 18 117/66 (83) 96 11/16/19 21:30 81 18 123/75 (91) 96 11/16/19 21:00 83 18 113/57 (75) 96 11/16/19 21:00 18 113/57 Mechanical Ventilator 40 11/16/19 20:30 82 18 101/48 (65) 96 11/16/19 20:00 87 18 111/46 (67) 96 11/16/19 20:00 Mechanical Ventilator 11/16/19 20:00 40 11/16/19 20:00 18 111/46 Mechanical Ventilator 40 11/16/19 20:00 91 11/16/19 19:32 92 18 40 11/16/19 19:30 87 18 129/59 (82) 99 11/16/19 19:00 18 130/64 Mechanical Ventilator 40 11/16/19 19:00 89 19 130/64 (86) 96 11/16/19 18:29 89 22 141/75 (97) 97 11/16/19 18:00 19 141/75 Mechanical Ventilator 40 11/16/19 17:59 98.0 86 19 128/79 (95) 96 11/16/19 17:00 19 108/78 Mechanical Ventilator 40 11/16/19 17:00 86 18 106/60 (75) 96 11/16/19 16:00 40 11/16/19 16:00 18 106/43 Mechanical Ventilator 40 11/16/19 16:00 Mechanical Ventilator 11/16/19 16:00 90 18 120/63 (82) 96 11/16/19 16:00 86 11/16/19 15:05 103 18 40 11/16/19 15:00 83 18 113/73 (86) 97 11/16/19 15:00 18 112/51 Mechanical Ventilator 40 11/16/19 14:00 80 18 95/34 (54) 97 11/16/19 14:00 18 99/57 Mechanical Ventilator 40 11/16/19 13:12 96 139/67 11/16/19 13:01 18 139/67 40 11/16/19 13:00 18 139/67 Mechanical Ventilator 40 11/16/19 13:00 98 16 139/67 (91) 98 11/16/19 12:00 40 11/16/19 12:00 98.2 93 17 109/34 (59) 97 11/16/19 12:00 Mechanical Ventilator 11/16/19 12:00 96 11/16/19 12:00 18 109/34 Mechanical Ventilator 40 11/16/19 11:00 89 19 117/49 (71) 97 11/16/19 11:00 18 117/40 Mechanical Ventilator 40 Intake and Output 11/16/19 11/17/19 19:00 07:00 Intake Total 1809 ml 1471.5 ml Output Total 1525 ml 750 ml Balance 284 ml 721.5 ml Free Water 60 ml IV Total 1209 ml 991.5 ml Tube Feeding 480 ml 480 ml Blood Product 60 ml Output Urine Total 1525 ml 750 ml # Bowel Movements 3 1 Laboratory Tests Test 11/16/19 13:19 11/16/19 17:10 11/16/19 20:49 11/16/19 23:58 POC Whole Blood Glucose Pending 268 MG/DL (74-106) H Pending Pending Test 11/17/19 03:45 11/17/19 09:40 White Blood Count 20.9 K/UL (4.8-10.8) H Red Blood Count 3.82 M/UL (4.20-5.40) L Hemoglobin 10.2 G/DL (12.0-16.0) L Hematocrit 34.3 % (37.0-47.0) L Mean Corpuscular Volume 90 FL (80-99) Mean Corpuscular Hemoglobin 26.7 PG (27.0-31.0) L Mean Corpuscular Hemoglobin Concent 29.7 G/DL (32.0-36.0) L Red Cell Distribution Width 16.5 % (11.6-14.8) H Platelet Count 234 K/UL (150-450) Mean Platelet Volume 7.0 FL (6.5-10.1) Neutrophils (%) (Auto) % (45.0-75.0) Lymphocytes (%) (Auto) % (20.0-45.0) Monocytes (%) (Auto) % (1.0-10.0) Eosinophils (%) (Auto) % (0.0-3.0) Basophils (%) (Auto) % (0.0-2.0) Differential Total Cells Counted 100 Neutrophils % (Manual) 95 % (45-75) H Lymphocytes % (Manual) 3 % (20-45) L Monocytes % (Manual) 2 % (1-10) Eosinophils % (Manual) 0 % (0-3) Basophils % (Manual) 0 % (0-2) Band Neutrophils 0 % (0-8) Platelet Estimate Adequate Platelet Morphology Normal Anisocytosis 1+ Sodium Level 145 MMOL/L (136-145) Potassium Level 4.2 MMOL/L (3.5-5.1) Chloride Level 110 MMOL/L (98-107) H Carbon Dioxide Level 34 MMOL/L (21-32) H Anion Gap 1 mmol/L (5-15) L Blood Urea Nitrogen 26 mg/dL (7-18) H Creatinine 0.9 MG/DL (0.55-1.30) Estimat Glomerular Filtration Rate > 60 mL/min (>60) Glucose Level 252 MG/DL (74-106) H Calcium Level 8.5 MG/DL (8.5-10.1) Phosphorus Level 2.9 MG/DL (2.5-4.9) Magnesium Level 2.2 MG/DL (1.8-2.4) Total Bilirubin 1.2 MG/DL (0.2-1.0) H Direct Bilirubin 0.8 MG/DL (0.0-0.3) H Aspartate Amino Transf (AST/SGOT) 35 U/L (15-37) Alanine Aminotransferase (ALT/SGPT) 33 U/L (12-78) Alkaline Phosphatase 180 U/L (46-116) H Total Protein 6.4 G/DL (6.4-8.2) Albumin 2.4 G/DL (3.4-5.0) L POC Whole Blood Glucose Pending Objective HEAD AND NECK: No JVD. OG tube Orally intubated LUNGS: Coarse rhonchi. CARDIOVASCULAR: Irregularly irregular. S1 and S2 with no gallop or murmur. ABDOMEN: Soft. EXTREMITIES: No pitting edema. Gabe Snell MD Nov 17, 2019 10:51
--- NOTE | 2019-11-17 11:01 | Surgery Progress Note ---
Surgery Progress Note Subjective Procedure Performed Hemostasis of left nostril hemorrhage emergency Additional Comments leukocytosis weaning vent no n/v comfortable appearing Objective Last 24 Hour Vital Signs Date Time Temp Pulse Resp B/P (MAP) Pulse Ox O2 Delivery O2 Flow Rate FiO2 11/17/19 10:35 86 17 137/77 (97) 98 11/17/19 10:05 81 19 119/88 (98) 97 11/17/19 09:48 100 11/17/19 09:46 40 11/17/19 09:40 40 11/17/19 09:00 76 18 151/80 (103) 97 11/17/19 08:30 77 17 120/64 (82) 97 11/17/19 08:00 40 11/17/19 08:00 73 11/17/19 08:00 Mechanical Ventilator 11/17/19 08:00 73 18 102/54 (70) 97 11/17/19 07:40 80 18 40 11/17/19 07:30 75 18 114/55 (74) 96 11/17/19 07:00 18 92/56 Mechanical Ventilator 40 11/17/19 07:00 74 18 92/56 (68) 95 11/17/19 06:30 74 18 106/60 (75) 96 11/17/19 06:30 68 19 11/17/19 06:00 86 18 140/62 (88) 96 11/17/19 06:00 18 140/62 Mechanical Ventilator 40 11/17/19 05:43 81 150/81 11/17/19 05:30 85 18 150/81 (104) 99 11/17/19 05:00 18 122/63 Mechanical Ventilator 40 11/17/19 05:00 82 18 122/63 (82) 97 11/17/19 04:30 84 19 137/51 (79) 97 11/17/19 04:00 Mechanical Ventilator 11/17/19 04:00 40 11/17/19 04:00 18 132/62 Mechanical Ventilator 40 11/17/19 04:00 98.5 88 18 132/66 (88) 96 11/17/19 04:00 90 11/17/19 03:30 87 18 141/82 (101) 98 11/17/19 03:01 81 20 40 11/17/19 03:00 84 18 136/61 (86) 99 11/17/19 03:00 18 136/61 Mechanical Ventilator 40 11/17/19 02:30 88 18 139/78 (98) 98 11/17/19 02:00 19 142/67 Mechanical Ventilator 40 11/17/19 02:00 90 19 142/67 (92) 99 11/17/19 01:30 81 18 123/55 (77) 97 11/17/19 01:00 82 18 113/65 (81) 96 11/17/19 01:00 18 113/65 Mechanical Ventilator 40 11/17/19 00:30 79 18 114/66 (82) 96 11/17/19 00:00 40 11/17/19 00:00 18 119/55 Mechanical Ventilator 40 11/17/19 00:00 98.8 81 18 119/55 (76) 96 11/17/19 00:00 Mechanical Ventilator 11/17/19 00:00 85 11/16/19 23:30 78 18 100/55 (70) 96 11/16/19 23:06 86 18 40 11/16/19 23:00 18 115/65 Mechanical Ventilator 40 11/16/19 23:00 79 18 115/65 (82) 96 11/16/19 22:30 85 18 124/55 (78) 95 11/16/19 22:14 84 117/66 11/16/19 22:00 18 117/66 Mechanical Ventilator 40 11/16/19 22:00 84 18 117/66 (83) 96 11/16/19 21:30 81 18 123/75 (91) 96 11/16/19 21:00 83 18 113/57 (75) 96 11/16/19 21:00 18 113/57 Mechanical Ventilator 40 11/16/19 20:30 82 18 101/48 (65) 96 11/16/19 20:00 87 18 111/46 (67) 96 11/16/19 20:00 Mechanical Ventilator 11/16/19 20:00 40 11/16/19 20:00 18 111/46 Mechanical Ventilator 40 11/16/19 20:00 91 11/16/19 19:32 92 18 40 11/16/19 19:30 87 18 129/59 (82) 99 11/16/19 19:00 18 130/64 Mechanical Ventilator 40 11/16/19 19:00 89 19 130/64 (86) 96 11/16/19 18:29 89 22 141/75 (97) 97 11/16/19 18:00 19 141/75 Mechanical Ventilator 40 11/16/19 17:59 98.0 86 19 128/79 (95) 96 11/16/19 17:00 19 108/78 Mechanical Ventilator 40 11/16/19 17:00 86 18 106/60 (75) 96 11/16/19 16:00 40 11/16/19 16:00 18 106/43 Mechanical Ventilator 40 11/16/19 16:00 Mechanical Ventilator 11/16/19 16:00 90 18 120/63 (82) 96 11/16/19 16:00 86 11/16/19 15:05 103 18 40 11/16/19 15:00 83 18 113/73 (86) 97 11/16/19 15:00 18 112/51 Mechanical Ventilator 40 11/16/19 14:00 80 18 95/34 (54) 97 11/16/19 14:00 18 99/57 Mechanical Ventilator 40 11/16/19 13:12 96 139/67 11/16/19 13:01 18 139/67 40 11/16/19 13:00 18 139/67 Mechanical Ventilator 40 11/16/19 13:00 98 16 139/67 (91) 98 11/16/19 12:00 40 11/16/19 12:00 98.2 93 17 109/34 (59) 97 11/16/19 12:00 Mechanical Ventilator 11/16/19 12:00 96 11/16/19 12:00 18 109/34 Mechanical Ventilator 40 I&O Intake and Output 11/16/19 11/17/19 19:00 07:00 Intake Total 1809 ml 1471.5 ml Output Total 1525 ml 750 ml Balance 284 ml 721.5 ml Free Water 60 ml IV Total 1209 ml 991.5 ml Tube Feeding 480 ml 480 ml Blood Product 60 ml Output Urine Total 1525 ml 750 ml # Bowel Movements 3 1 Dressing: saturated Cardiovascular: RSR Respiratory: decreased breath sounds Abdomen: soft, non-tender, present bowel sounds Extremities: edema, no tenderness, no cyanosis Laboratory Tests Test 11/16/19 13:19 11/16/19 17:10 11/16/19 20:49 11/16/19 23:58 POC Whole Blood Glucose Pending 268 MG/DL (74-106) H Pending Pending Test 11/17/19 03:45 11/17/19 09:40 White Blood Count 20.9 K/UL (4.8-10.8) H Red Blood Count 3.82 M/UL (4.20-5.40) L Hemoglobin 10.2 G/DL (12.0-16.0) L Hematocrit 34.3 % (37.0-47.0) L Mean Corpuscular Volume 90 FL (80-99) Mean Corpuscular Hemoglobin 26.7 PG (27.0-31.0) L Mean Corpuscular Hemoglobin Concent 29.7 G/DL (32.0-36.0) L Red Cell Distribution Width 16.5 % (11.6-14.8) H Platelet Count 234 K/UL (150-450) Mean Platelet Volume 7.0 FL (6.5-10.1) Neutrophils (%) (Auto) % (45.0-75.0) Lymphocytes (%) (Auto) % (20.0-45.0) Monocytes (%) (Auto) % (1.0-10.0) Eosinophils (%) (Auto) % (0.0-3.0) Basophils (%) (Auto) % (0.0-2.0) Differential Total Cells Counted 100 Neutrophils % (Manual) 95 % (45-75) H Lymphocytes % (Manual) 3 % (20-45) L Monocytes % (Manual) 2 % (1-10) Eosinophils % (Manual) 0 % (0-3) Basophils % (Manual) 0 % (0-2) Band Neutrophils 0 % (0-8) Platelet Estimate Adequate Platelet Morphology Normal Anisocytosis 1+ Sodium Level 145 MMOL/L (136-145) Potassium Level 4.2 MMOL/L (3.5-5.1) Chloride Level 110 MMOL/L (98-107) H Carbon Dioxide Level 34 MMOL/L (21-32) H Anion Gap 1 mmol/L (5-15) L Blood Urea Nitrogen 26 mg/dL (7-18) H Creatinine 0.9 MG/DL (0.55-1.30) Estimat Glomerular Filtration Rate > 60 mL/min (>60) Glucose Level 252 MG/DL (74-106) H Calcium Level 8.5 MG/DL (8.5-10.1) Phosphorus Level 2.9 MG/DL (2.5-4.9) Magnesium Level 2.2 MG/DL (1.8-2.4) Total Bilirubin 1.2 MG/DL (0.2-1.0) H Direct Bilirubin 0.8 MG/DL (0.0-0.3) H Aspartate Amino Transf (AST/SGOT) 35 U/L (15-37) Alanine Aminotransferase (ALT/SGPT) 33 U/L (12-78) Alkaline Phosphatase 180 U/L (46-116) H Total Protein 6.4 G/DL (6.4-8.2) Albumin 2.4 G/DL (3.4-5.0) L POC Whole Blood Glucose Pending Plan Problems: (1) Weak (2) UTI (urinary tract infection) (3) Hypoxia (4) Epistaxis Assessment & Plan: Severe after taxis left nostril Rhino Rocket placed hemostasis noted over the course 24 hours hemoglobin stable Lovenox been stopped. The balloon of both ports of the Rhino Rocket were deflated today. The rocket itself was not removed and will monitor over the course next 24 hours hemostasis. If so will gently remove and plan for local monitoring. Currently wean ventilator as tolerated. Goals of extubation when possible. deflated balloon 11/08 removed trumpet 11/09 will monitor for bleeding wean vent plan extubation discussed with pulm (5) Fluid overload Assessment & Plan: Continue central venous catheter for now. Will anticipate removal once patient stable for extubation. Thank you for allowing me to participate patient's care (6) Diabetes (7) CHF (congestive heart failure) (8) Afib (9) Multifocal pneumonia (10) 2019 novel coronavirus disease (COVID-19) Assessment & Plan: + wean vent (11) Respiratory failure Ortiz Fleming Nov 17, 2019 11:01
[2019-11-17] MEDS: fentaNYL 2500mcg/NS 250ml 250 ML IV SCH (11:29)
--- NOTE | 2019-11-17 12:06 | Pulmonology Progress Note ---
Subjective ROS Limited/Unobtainable: No Interval Events: Intubated; no further epistaxis; packed by Dr Fleming Constitutional: Denies: fever HEENT: Repors: no symptoms Respiratory: Reports: dry cough, shortness of breath Cardiovascular: Reports: no symptoms Gastrointestinal/Abdominal: Reports: no symptoms Allergies: Coded Allergies: No Known Allergies (Unverified , 11/06/19) All Systems: reviewed and negative except above Objective Last 24 Hour Vital Signs Date Time Temp Pulse Resp B/P (MAP) Pulse Ox O2 Delivery O2 Flow Rate FiO2 11/17/19 11:55 83 11/17/19 11:30 98.7 85 19 100/53 (69) 99 11/17/19 11:29 18 122/67 Mechanical Ventilator 11/17/19 11:09 86 17 137/77 (97) 98 11/17/19 11:08 84 18 40 11/17/19 11:00 89 18 122/67 (85) 99 11/17/19 10:35 86 17 137/77 (97) 98 11/17/19 10:05 81 19 119/88 (98) 97 11/17/19 09:48 100 11/17/19 09:46 40 11/17/19 09:40 40 11/17/19 09:00 76 18 151/80 (103) 97 11/17/19 08:30 77 17 120/64 (82) 97 11/17/19 08:00 40 11/17/19 08:00 73 11/17/19 08:00 Mechanical Ventilator 11/17/19 08:00 73 18 102/54 (70) 97 11/17/19 07:40 80 18 40 11/17/19 07:30 75 18 114/55 (74) 96 11/17/19 07:00 18 92/56 Mechanical Ventilator 40 11/17/19 07:00 74 18 92/56 (68) 95 11/17/19 06:30 74 18 106/60 (75) 96 11/17/19 06:30 68 19 11/17/19 06:00 86 18 140/62 (88) 96 11/17/19 06:00 18 140/62 Mechanical Ventilator 40 11/17/19 05:43 81 150/81 11/17/19 05:30 85 18 150/81 (104) 99 11/17/19 05:00 18 122/63 Mechanical Ventilator 40 11/17/19 05:00 82 18 122/63 (82) 97 11/17/19 04:30 84 19 137/51 (79) 97 11/17/19 04:00 Mechanical Ventilator 11/17/19 04:00 40 11/17/19 04:00 18 132/62 Mechanical Ventilator 40 11/17/19 04:00 98.5 88 18 132/66 (88) 96 11/17/19 04:00 90 11/17/19 03:30 87 18 141/82 (101) 98 11/17/19 03:01 81 20 40 11/17/19 03:00 84 18 136/61 (86) 99 11/17/19 03:00 18 136/61 Mechanical Ventilator 40 11/17/19 02:30 88 18 139/78 (98) 98 11/17/19 02:00 19 142/67 Mechanical Ventilator 40 11/17/19 02:00 90 19 142/67 (92) 99 11/17/19 01:30 81 18 123/55 (77) 97 11/17/19 01:00 82 18 113/65 (81) 96 11/17/19 01:00 18 113/65 Mechanical Ventilator 40 11/17/19 00:30 79 18 114/66 (82) 96 11/17/19 00:00 40 11/17/19 00:00 18 119/55 Mechanical Ventilator 40 11/17/19 00:00 98.8 81 18 119/55 (76) 96 11/17/19 00:00 Mechanical Ventilator 11/17/19 00:00 85 11/16/19 23:30 78 18 100/55 (70) 96 11/16/19 23:06 86 18 40 11/16/19 23:00 18 115/65 Mechanical Ventilator 40 11/16/19 23:00 79 18 115/65 (82) 96 11/16/19 22:30 85 18 124/55 (78) 95 11/16/19 22:14 84 117/66 11/16/19 22:00 18 117/66 Mechanical Ventilator 40 11/16/19 22:00 84 18 117/66 (83) 96 11/16/19 21:30 81 18 123/75 (91) 96 11/16/19 21:00 83 18 113/57 (75) 96 11/16/19 21:00 18 113/57 Mechanical Ventilator 40 11/16/19 20:30 82 18 101/48 (65) 96 11/16/19 20:00 87 18 111/46 (67) 96 11/16/19 20:00 Mechanical Ventilator 11/16/19 20:00 40 11/16/19 20:00 18 111/46 Mechanical Ventilator 40 11/16/19 20:00 91 11/16/19 19:32 92 18 40 11/16/19 19:30 87 18 129/59 (82) 99 11/16/19 19:00 18 130/64 Mechanical Ventilator 40 11/16/19 19:00 89 19 130/64 (86) 96 11/16/19 18:29 89 22 141/75 (97) 97 11/16/19 18:00 19 141/75 Mechanical Ventilator 40 11/16/19 17:59 98.0 86 19 128/79 (95) 96 11/16/19 17:00 19 108/78 Mechanical Ventilator 40 11/16/19 17:00 86 18 106/60 (75) 96 11/16/19 16:00 40 11/16/19 16:00 18 106/43 Mechanical Ventilator 40 11/16/19 16:00 Mechanical Ventilator 11/16/19 16:00 90 18 120/63 (82) 96 11/16/19 16:00 86 11/16/19 15:05 103 18 40 11/16/19 15:00 83 18 113/73 (86) 97 11/16/19 15:00 18 112/51 Mechanical Ventilator 40 11/16/19 14:00 80 18 95/34 (54) 97 11/16/19 14:00 18 99/57 Mechanical Ventilator 40 11/16/19 13:12 96 139/67 11/16/19 13:01 18 139/67 40 11/16/19 13:00 18 139/67 Mechanical Ventilator 40 11/16/19 13:00 98 16 139/67 (91) 98 Intake and Output 11/16/19 11/17/19 19:00 07:00 Intake Total 1809 ml 1471.5 ml Output Total 1525 ml 750 ml Balance 284 ml 721.5 ml Free Water 60 ml IV Total 1209 ml 991.5 ml Tube Feeding 480 ml 480 ml Blood Product 60 ml Output Urine Total 1525 ml 750 ml # Bowel Movements 3 1 General Appearance: no acute distress HEENT: normocephalic Respiratory: decreased breath sounds Cardiovascular: normal peripheral pulses Abdomen: normal bowel sounds Extremities: no cyanosis Laboratory Tests 11/16/19 13:19: POC Whole Blood Glucose [Pending] 11/16/19 17:10: POC Whole Blood Glucose 268H 11/16/19 20:49: POC Whole Blood Glucose [Pending] 11/16/19 23:58: POC Whole Blood Glucose [Pending] 11/17/19 03:45: White Blood Count 20.9H, Red Blood Count 3.82L, Hemoglobin 10.2L, Hematocrit 34.3L, Mean Corpuscular Volume 90, Mean Corpuscular Hemoglobin 26.7L, Mean Corpuscular Hemoglobin Concent 29.7L, Red Cell Distribution Width 16.5H, Platelet Count 234, Mean Platelet Volume 7.0, Neutrophils (%) (Auto) , Lymphocytes (%) (Auto) , Monocytes (%) (Auto) , Eosinophils (%) (Auto) , Basophils (%) (Auto) , Differential Total Cells Counted 100, Neutrophils % ( Manual) 95H, Lymphocytes % (Manual) 3L, Monocytes % (Manual) 2, Eosinophils % ( Manual) 0, Basophils % (Manual) 0, Band Neutrophils 0, Platelet Estimate Adequate, Platelet Morphology Normal, Anisocytosis 1+, Sodium Level 145, Potassium Level 4.2, Chloride Level 110H, Carbon Dioxide Level 34H, Anion Gap 1L , Blood Urea Nitrogen 26H, Creatinine 0.9, Estimat Glomerular Filtration Rate > 60, Glucose Level 252H, Calcium Level 8.5, Phosphorus Level 2.9, Magnesium Level 2.2, Total Bilirubin 1.2H, Direct Bilirubin 0.8H, Aspartate Amino Transf ( AST/SGOT) 35, Alanine Aminotransferase (ALT/SGPT) 33, Alkaline Phosphatase 180H , Total Protein 6.4, Albumin 2.4L 11/17/19 09:40: POC Whole Blood Glucose [Pending] Current Medications Medications (Trade) Dose Ordered Sig/Robyn Route PRN Reason Start Time Stop Time Status Last Admin Dose Admin Acetaminophen (Tylenol) 650 mg Q6H PRN NG Temp >100.5 11/12/19 00:15 12/12/19 00:14 11/16/19 09:02 Apixaban (Eliquis) 5 mg BID NGT 11/14/19 09:00 02/12/20 08:59 11/17/19 09:23 Chlorhexidine Gluconate (Miya-Hex 2%) 1 applic DAILY@2000 TOPIC 11/08/19 21:30 02/06/20 21:29 11/16/19 19:49 Clonidine HCl (Catapres Tab) 0.1 mg Q4H PRN NG For High Blood Pressure 11/13/19 17:00 02/09/20 10:59 Dextrose 1,000 ml @ 75 mls/hr [id number] IV 11/14/19 08:15 12/14/19 08:14 11/17/19 02:42 Dextrose (Dextrose 50%) 25 ml Q30M PRN IV Hypoglycemia 11/08/19 12:30 02/05/20 02:59 Dextrose (Dextrose 50%) 50 ml Q30M PRN IV Hypoglycemia 11/08/19 12:30 02/05/20 02:59 Famotidine (Pepcid I.v.) 20 mg Q12HR IVP 11/08/19 15:30 12/08/19 15:29 11/17/19 09:23 Fentanyl Citrate 250 ml @ 0 mls/hr Q24H IV 11/08/19 12:29 02/06/20 12:28 11/17/19 11:29 Folic Acid (Folate) 2 mg DAILY GT 11/15/19 09:00 12/15/19 08:59 11/17/19 09:23 Heparin Sodium/ Sodium Chloride (Heparin 1000 units/500ml Premix) 1,000 unit ONCE PRN IV PICC LINE PLACEMENT 11/17/19 09:00 11/19/19 08:59 Insulin Aspart (NovoLOG) EVERY 6 HOURS SUBQ 11/15/19 12:00 02/11/20 20:59 11/17/19 05:59 Insulin Detemir (Levemir) 20 units Q12HR SUBQ 11/15/19 21:00 02/11/20 20:59 11/17/19 09:44 Lidocaine HCl (Xylocaine 1% 30ml) 30 ml ONCE PRN INJ PICC LINE PLACEMENT 11/17/19 09:00 11/19/19 08:59 Lorazepam (Ativan 2mg/ml 1ml) 1 mg Q4H PRN IV For Anxiety 11/14/19 10:00 11/21/19 09:59 11/16/19 09:00 Metoprolol Tartrate (Lopressor) 50 mg Q12HR NG 11/17/19 21:00 02/15/20 20:59 Assessment/Plan Assessment/Plan IMPRESSION: 1. COVID-19 pneumonia. 2. Diabetes mellitus and hypertension. 3. Lactic acidemia. 4. Epistaxis 5. Respiratory failure DISCUSSION: Careful and close monitoring. Continue remdesivir and steroids. Vent weaning to continue. I will follow carefully. Lakeisha Zavaleta Omar Syed MD Nov 17, 2019 12:06
--- NOTE | 2019-11-17 12:19 | Nephrology Progress Note ---
Assessment/Plan Problem List: (1) Electrolyte imbalance (2) Diabetes (3) 2019 novel coronavirus disease (COVID-19) (4) Respiratory failure Assessment 1. COVID-19 pneumonia. 2. Diabetes and hyperglycemia 3. Hypertension. 4. Hypoxic respiratory failure 5. Morbid obesity with BMI of 65.5 6. Nasal bleeding 7. Lactic acidosis 8. Hyperkalemia Plan Patient's urine output is low. We will give a trial of albumin and Lasix, As needed Discussed with RN Change IV to D5W 75 cc an hour Levemir 20 units subcu every 12 hours Kayexalate for high potassium as needed Monitor electrolytes and renal parameters Tight blood sugar control, long-acting insulin as needed Keep the blood pressure in check Per orders Subjective ROS Limited/Unobtainable: Yes Objective Objective Last 24 Hour Vital Signs Date Time Temp Pulse Resp B/P (MAP) Pulse Ox O2 Delivery O2 Flow Rate FiO2 11/17/19 12:00 Mechanical Ventilator 11/17/19 12:00 78 18 107/53 (71) 98 11/17/19 11:55 83 11/17/19 11:30 98.7 85 19 100/53 (69) 99 11/17/19 11:29 18 122/67 Mechanical Ventilator 11/17/19 11:09 86 17 137/77 (97) 98 11/17/19 11:08 84 18 40 11/17/19 11:00 89 18 122/67 (85) 99 11/17/19 10:35 86 17 137/77 (97) 98 11/17/19 10:05 81 19 119/88 (98) 97 11/17/19 09:48 100 11/17/19 09:46 40 11/17/19 09:40 40 11/17/19 09:00 76 18 151/80 (103) 97 11/17/19 08:30 77 17 120/64 (82) 97 11/17/19 08:00 40 11/17/19 08:00 73 11/17/19 08:00 Mechanical Ventilator 11/17/19 08:00 73 18 102/54 (70) 97 11/17/19 07:40 80 18 40 11/17/19 07:30 75 18 114/55 (74) 96 11/17/19 07:00 18 92/56 Mechanical Ventilator 40 11/17/19 07:00 74 18 92/56 (68) 95 11/17/19 06:30 74 18 106/60 (75) 96 11/17/19 06:30 68 19 11/17/19 06:00 86 18 140/62 (88) 96 11/17/19 06:00 18 140/62 Mechanical Ventilator 40 11/17/19 05:43 81 150/81 11/17/19 05:30 85 18 150/81 (104) 99 11/17/19 05:00 18 122/63 Mechanical Ventilator 40 11/17/19 05:00 82 18 122/63 (82) 97 11/17/19 04:30 84 19 137/51 (79) 97 11/17/19 04:00 Mechanical Ventilator 11/17/19 04:00 40 11/17/19 04:00 18 132/62 Mechanical Ventilator 40 11/17/19 04:00 98.5 88 18 132/66 (88) 96 11/17/19 04:00 90 11/17/19 03:30 87 18 141/82 (101) 98 11/17/19 03:01 81 20 40 11/17/19 03:00 84 18 136/61 (86) 99 11/17/19 03:00 18 136/61 Mechanical Ventilator 40 11/17/19 02:30 88 18 139/78 (98) 98 11/17/19 02:00 19 142/67 Mechanical Ventilator 40 11/17/19 02:00 90 19 142/67 (92) 99 11/17/19 01:30 81 18 123/55 (77) 97 11/17/19 01:00 82 18 113/65 (81) 96 11/17/19 01:00 18 113/65 Mechanical Ventilator 40 11/17/19 00:30 79 18 114/66 (82) 96 11/17/19 00:00 40 11/17/19 00:00 18 119/55 Mechanical Ventilator 40 11/17/19 00:00 98.8 81 18 119/55 (76) 96 11/17/19 00:00 Mechanical Ventilator 11/17/19 00:00 85 11/16/19 23:30 78 18 100/55 (70) 96 11/16/19 23:06 86 18 40 11/16/19 23:00 18 115/65 Mechanical Ventilator 40 11/16/19 23:00 79 18 115/65 (82) 96 7/27/20 22:30 85 18 124/55 (78) 95 11/16/19 22:14 84 117/66 11/16/19 22:00 18 117/66 Mechanical Ventilator 40 11/16/19 22:00 84 18 117/66 (83) 96 11/16/19 21:30 81 18 123/75 (91) 96 11/16/19 21:00 83 18 113/57 (75) 96 11/16/19 21:00 18 113/57 Mechanical Ventilator 40 11/16/19 20:30 82 18 101/48 (65) 96 11/16/19 20:00 87 18 111/46 (67) 96 11/16/19 20:00 Mechanical Ventilator 11/16/19 20:00 40 11/16/19 20:00 18 111/46 Mechanical Ventilator 40 11/16/19 20:00 91 11/16/19 19:32 92 18 40 11/16/19 19:30 87 18 129/59 (82) 99 11/16/19 19:00 18 130/64 Mechanical Ventilator 40 11/16/19 19:00 89 19 130/64 (86) 96 11/16/19 18:29 89 22 141/75 (97) 97 11/16/19 18:00 19 141/75 Mechanical Ventilator 40 11/16/19 17:59 98.0 86 19 128/79 (95) 96 11/16/19 17:00 19 108/78 Mechanical Ventilator 40 11/16/19 17:00 86 18 106/60 (75) 96 11/16/19 16:00 40 11/16/19 16:00 18 106/43 Mechanical Ventilator 40 11/16/19 16:00 Mechanical Ventilator 11/16/19 16:00 90 18 120/63 (82) 96 11/16/19 16:00 86 11/16/19 15:05 103 18 40 11/16/19 15:00 83 18 113/73 (86) 97 11/16/19 15:00 18 112/51 Mechanical Ventilator 40 11/16/19 14:00 80 18 95/34 (54) 97 11/16/19 14:00 18 99/57 Mechanical Ventilator 40 11/16/19 13:12 96 139/67 11/16/19 13:01 18 139/67 40 11/16/19 13:00 18 139/67 Mechanical Ventilator 40 11/16/19 13:00 98 16 139/67 (91) 98 Intake and Output 11/16/19 11/17/19 19:00 07:00 Intake Total 1809 ml 1471.5 ml Output Total 1525 ml 750 ml Balance 284 ml 721.5 ml Free Water 60 ml IV Total 1209 ml 991.5 ml Tube Feeding 480 ml 480 ml Blood Product 60 ml Output Urine Total 1525 ml 750 ml # Bowel Movements 3 1 Laboratory Tests 11/16/19 13:19: POC Whole Blood Glucose [Pending] 11/16/19 17:10: POC Whole Blood Glucose 268H 11/16/19 20:49: POC Whole Blood Glucose [Pending] 11/16/19 23:58: POC Whole Blood Glucose [Pending] 11/17/19 03:45: White Blood Count 20.9H, Red Blood Count 3.82L, Hemoglobin 10.2L, Hematocrit 34.3L, Mean Corpuscular Volume 90, Mean Corpuscular Hemoglobin 26.7L, Mean Corpuscular Hemoglobin Concent 29.7L, Red Cell Distribution Width 16.5H, Platelet Count 234, Mean Platelet Volume 7.0, Neutrophils (%) (Auto) , Lymphocytes (%) (Auto) , Monocytes (%) (Auto) , Eosinophils (%) (Auto) , Basophils (%) (Auto) , Differential Total Cells Counted 100, Neutrophils % ( Manual) 95H, Lymphocytes % (Manual) 3L, Monocytes % (Manual) 2, Eosinophils % ( Manual) 0, Basophils % (Manual) 0, Band Neutrophils 0, Platelet Estimate Adequate, Platelet Morphology Normal, Anisocytosis 1+, Sodium Level 145, Potassium Level 4.2, Chloride Level 110H, Carbon Dioxide Level 34H, Anion Gap 1L , Blood Urea Nitrogen 26H, Creatinine 0.9, Estimat Glomerular Filtration Rate > 60, Glucose Level 252H, Calcium Level 8.5, Phosphorus Level 2.9, Magnesium Level 2.2, Total Bilirubin 1.2H, Direct Bilirubin 0.8H, Aspartate Amino Transf ( AST/SGOT) 35, Alanine Aminotransferase (ALT/SGPT) 33, Alkaline Phosphatase 180H , Total Protein 6.4, Albumin 2.4L 11/17/19 09:40: POC Whole Blood Glucose [Pending] Height (Feet): 5 Height (Inches): 3.00 Weight (Pounds): 325 General Appearance: mild distress EENT: other - Trach and vent Cardiovascular: tachycardia Respiratory/Chest: decreased breath sounds Abdomen: distended Papa Young MD Nov 17, 2019 12:19
--- NOTE | 2019-11-17 13:06 | Hematology/Onc Progress Note ---
Assessment/Plan Assessment/Plan # Anemia of chronic disease due to underlying chronic medical issues, multifactorial v Gi bleed in this case likely related covid19+++++++++ --> Anemia workup has been ordered, rule out gi bleed --> No evidence of hemolysis is noted, peripheral smear has been reviewed. --> Hgb goal >7. Transfuse prn. --> Epogen or iron at this time is not particularly indicated --> Medications have been reviewed --> low threshold for gi evaluation in case has occult + --> hgb 10-->9.8-->9.2-->9.7-->10.7->10->11->10.2 # Leukocytosis/elevated white blood cell count, unspecified likely related to covid19 --> have reviewed peripheral smear and bandemia/neutrophilia noted --> continue antibiotics if they have been started by ID team zosyn --> on remdesivir, dexamathasone --> monitor for resolution --> wbc 12->11-->11-->13->16-->21 # COVID 19 pneumonia --> on vent --> respiratory failure --> s/p vent # Diabetes mellitus --> iss and bs goal <140 # Hypertension --> sbp goal <150 Appreciate consultation and jimena RN Subjective Constitutional: Denies: no symptoms, chills, fever, malaise, weakness, other HEENT: Denies: no symptoms, eye pain, blurred vision, tearing, double vision, ear pain, ear discharge, nose pain, nose congestion, throat pain, throat swelling, mouth pain, mouth swelling, other Cardiovascular: Denies: no symptoms, chest pain, edema, irregular heart rate, lightheadedness, palpitations, syncope, other Gastrointestinal/Abdominal: Denies: no symptoms, abdomen distended, abdominal pain, black stools, tarry stools, blood in stool, constipated, diarrhea, difficulty swallowing, nausea, poor appetite, poor fluid intake, rectal bleeding , vomiting, other Genitourinary: Denies: no symptoms, burning, discharge, frequency, flank pain, hematuria, incontinence, pain, urgency, other Neurologic/Psychiatric: Denies: no symptoms, anxiety, depressed, emotional problems, headache, numbness, paresthesia, pre-existing deficit, seizure, tingling, tremors, weakness, other Endocrine: Denies: no symptoms, excessive sweating, flushing, intolerance to cold, intolerance to heat, increased hunger, increased thirst, increased urine, unexplained weight gain, unexplained weight loss, other Hematologic/Lymphatic: Denies: no symptoms, anemia, easy bleeding, easy bruising, adenopathy, other Allergies: Coded Allergies: No Known Allergies (Unverified , 11/06/19) All Systems: reviewed and negative except above Subjective 11/09 weaning prn, meds reviewed, labs noted, hgb 9.2 11/10 on vent, no bleeding, hgb remains low, jimena Rn Jose R in am 11/11 on vent, fluids, ogf tube as well, labs pending in am 11/12 remains altered, no bleeding, labs reviewed, cbc noted 11/13 attempted weaning, but did not do well, no bleeding, hgb 10 11/14 intubated, weaning, on vent, with og, labs noted, abx 11/15 labs noted, no bleedign, weaning protocol, no night sweats, elev wbc, with fevers 11/16 no bleeding, jimena Broussard rn in the am, on vent, weaning but failed Objective Objective Current Medications Medications (Trade) Dose Ordered Sig/Robyn Route PRN Reason Start Time Stop Time Status Last Admin Dose Admin Acetaminophen (Tylenol) 650 mg Q6H PRN NG Temp >100.5 11/12/19 00:15 12/12/19 00:14 11/16/19 09:02 Apixaban (Eliquis) 5 mg BID NGT 11/14/19 09:00 02/12/20 08:59 11/17/19 09:23 Chlorhexidine Gluconate (Miya-Hex 2%) 1 applic DAILY@2000 TOPIC 11/08/19 21:30 02/06/20 21:29 11/16/19 19:49 Clonidine HCl (Catapres Tab) 0.1 mg Q4H PRN NG For High Blood Pressure 11/13/19 17:00 02/09/20 10:59 Dextrose 1,000 ml @ 75 mls/hr [id number] IV 11/14/19 08:15 12/14/19 08:14 11/17/19 02:42 Dextrose (Dextrose 50%) 25 ml Q30M PRN IV Hypoglycemia 11/08/19 12:30 02/05/20 02:59 Dextrose (Dextrose 50%) 50 ml Q30M PRN IV Hypoglycemia 11/08/19 12:30 02/05/20 02:59 Famotidine (Pepcid I.v.) 20 mg Q12HR IVP 11/08/19 15:30 12/08/19 15:29 11/17/19 09:23 Fentanyl Citrate 250 ml @ 0 mls/hr Q24H IV 11/08/19 12:29 02/06/20 12:28 11/17/19 11:29 Folic Acid (Folate) 2 mg DAILY GT 11/15/19 09:00 12/15/19 08:59 11/17/19 09:23 Heparin Sodium/ Sodium Chloride (Heparin 1000 units/500ml Premix) 1,000 unit ONCE PRN IV PICC LINE PLACEMENT 11/17/19 09:00 11/19/19 08:59 Insulin Aspart (NovoLOG) EVERY 6 HOURS SUBQ 11/15/19 12:00 02/11/20 20:59 11/17/19 05:59 Insulin Detemir (Levemir) 20 units Q12HR SUBQ 11/15/19 21:00 02/11/20 20:59 11/17/19 09:44 Lidocaine HCl (Xylocaine 1% 30ml) 30 ml ONCE PRN INJ PICC LINE PLACEMENT 11/17/19 09:00 11/19/19 08:59 Lorazepam (Ativan 2mg/ml 1ml) 1 mg Q4H PRN IV For Anxiety 11/14/19 10:00 11/21/19 09:59 11/16/19 09:00 Metoprolol Tartrate (Lopressor) 50 mg Q12HR NG 11/17/19 21:00 02/15/20 20:59 Last 24 Hour Vital Signs Date Time Temp Pulse Resp B/P (MAP) Pulse Ox O2 Delivery O2 Flow Rate FiO2 11/17/19 12:29 72 18 120/56 (77) 97 11/17/19 12:00 Mechanical Ventilator 11/17/19 12:00 78 18 107/53 (71) 98 11/17/19 11:55 83 11/17/19 11:30 98.7 85 19 100/53 (69) 99 11/17/19 11:29 18 122/67 Mechanical Ventilator 11/17/19 11:09 86 17 137/77 (97) 98 11/17/19 11:08 84 18 40 11/17/19 11:00 89 18 122/67 (85) 99 11/17/19 10:35 86 17 137/77 (97) 98 11/17/19 10:05 81 19 119/88 (98) 97 11/17/19 09:48 100 11/17/19 09:46 40 11/17/19 09:40 40 11/17/19 09:00 76 18 151/80 (103) 97 11/17/19 08:30 77 17 120/64 (82) 97 11/17/19 08:00 40 11/17/19 08:00 73 11/17/19 08:00 Mechanical Ventilator 11/17/19 08:00 73 18 102/54 (70) 97 11/17/19 07:40 80 18 40 11/17/19 07:30 75 18 114/55 (74) 96 11/17/19 07:00 18 92/56 Mechanical Ventilator 40 11/17/19 07:00 74 18 92/56 (68) 95 11/17/19 06:30 74 18 106/60 (75) 96 11/17/19 06:30 68 19 11/17/19 06:00 86 18 140/62 (88) 96 11/17/19 06:00 18 140/62 Mechanical Ventilator 40 11/17/19 05:43 81 150/81 11/17/19 05:30 85 18 150/81 (104) 99 11/17/19 05:00 18 122/63 Mechanical Ventilator 40 11/17/19 05:00 82 18 122/63 (82) 97 11/17/19 04:30 84 19 137/51 (79) 97 11/17/19 04:00 Mechanical Ventilator 11/17/19 04:00 40 11/17/19 04:00 18 132/62 Mechanical Ventilator 40 11/17/19 04:00 98.5 88 18 132/66 (88) 96 11/17/19 04:00 90 11/17/19 03:30 87 18 141/82 (101) 98 11/17/19 03:01 81 20 40 11/17/19 03:00 84 18 136/61 (86) 99 11/17/19 03:00 18 136/61 Mechanical Ventilator 40 11/17/19 02:30 88 18 139/78 (98) 98 11/17/19 02:00 19 142/67 Mechanical Ventilator 40 11/17/19 02:00 90 19 142/67 (92) 99 11/17/19 01:30 81 18 123/55 (77) 97 11/17/19 01:00 82 18 113/65 (81) 96 11/17/19 01:00 18 113/65 Mechanical Ventilator 40 11/17/19 00:30 79 18 114/66 (82) 96 11/17/19 00:00 40 11/17/19 00:00 18 119/55 Mechanical Ventilator 40 11/17/19 00:00 98.8 81 18 119/55 (76) 96 11/17/19 00:00 Mechanical Ventilator 11/17/19 00:00 85 11/16/19 23:30 78 18 100/55 (70) 96 11/16/19 23:06 86 18 40 11/16/19 23:00 18 115/65 Mechanical Ventilator 40 11/16/19 23:00 79 18 115/65 (82) 96 11/16/19 22:30 85 18 124/55 (78) 95 11/16/19 22:14 84 117/66 11/16/19 22:00 18 117/66 Mechanical Ventilator 40 11/16/19 22:00 84 18 117/66 (83) 96 11/16/19 21:30 81 18 123/75 (91) 96 11/16/19 21:00 83 18 113/57 (75) 96 11/16/19 21:00 18 113/57 Mechanical Ventilator 40 11/16/19 20:30 82 18 101/48 (65) 96 11/16/19 20:00 87 18 111/46 (67) 96 11/16/19 20:00 Mechanical Ventilator 11/16/19 20:00 40 11/16/19 20:00 18 111/46 Mechanical Ventilator 40 11/16/19 20:00 91 11/16/19 19:32 92 18 40 11/16/19 19:30 87 18 129/59 (82) 99 11/16/19 19:00 18 130/64 Mechanical Ventilator 40 11/16/19 19:00 89 19 130/64 (86) 96 11/16/19 18:29 89 22 141/75 (97) 97 11/16/19 18:00 19 141/75 Mechanical Ventilator 40 11/16/19 17:59 98.0 86 19 128/79 (95) 96 11/16/19 17:00 19 108/78 Mechanical Ventilator 40 11/16/19 17:00 86 18 106/60 (75) 96 11/16/19 16:00 40 11/16/19 16:00 18 106/43 Mechanical Ventilator 40 11/16/19 16:00 Mechanical Ventilator 11/16/19 16:00 90 18 120/63 (82) 96 11/16/19 16:00 86 11/16/19 15:05 103 18 40 11/16/19 15:00 83 18 113/73 (86) 97 11/16/19 15:00 18 112/51 Mechanical Ventilator 40 11/16/19 14:00 80 18 95/34 (54) 97 11/16/19 14:00 18 99/57 Mechanical Ventilator 40 11/16/19 13:12 96 139/67 11/16/19 13:01 18 139/67 40 11/16/19 13:00 18 139/67 Mechanical Ventilator 40 11/16/19 13:00 98 16 139/67 (91) 98 11/16/19 12:00 40 11/16/19 12:00 98.2 93 17 109/34 (59) 97 11/16/19 12:00 Mechanical Ventilator 11/16/19 12:00 96 11/16/19 12:00 18 109/34 Mechanical Ventilator 40 11/16/19 11:00 89 19 117/49 (71) 97 11/16/19 11:00 18 117/40 Mechanical Ventilator 40 11/16/19 10:41 93 18 40 11/16/19 10:00 89 18 92/26 (48) 97 11/16/19 10:00 18 92/26 Mechanical Ventilator 40 11/16/19 09:32 99.2 11/16/19 09:00 18 106/49 Mechanical Ventilator 40 11/16/19 09:00 88 18 106/49 (68) 96 11/16/19 08:00 Mechanical Ventilator 11/16/19 08:00 91 18 94/29 (50) 96 11/16/19 08:00 18 94/29 Mechanical Ventilator 40 11/16/19 08:00 94 11/16/19 08:00 40 11/16/19 07:00 21 140/83 Mechanical Ventilator 50 11/16/19 07:00 109 21 140/83 (102) 96 11/16/19 06:55 50 11/16/19 06:51 100 11/16/19 06:48 111 26 40 40 11/16/19 06:30 95 19 11/16/19 06:00 99.5 102 19 114/44 (67) 96 11/16/19 06:00 98 115/40 11/16/19 06:00 19 114/44 Mechanical Ventilator 40 11/16/19 05:00 95 19 118/64 (82) 96 11/16/19 05:00 19 118/64 Mechanical Ventilator 40 11/16/19 04:00 98 11/16/19 04:00 Mechanical Ventilator 11/16/19 04:00 40 11/16/19 04:00 21 119/38 Mechanical Ventilator 40 11/16/19 04:00 99.0 93 21 119/38 (65) 97 11/16/19 03:37 84 22 40 11/16/19 03:30 94 19 130/48 (75) 97 11/16/19 03:00 93 17 121/49 (73) 97 11/16/19 03:00 17 121/49 Mechanical Ventilator 40 11/16/19 02:30 92 18 105/47 (66) 96 11/16/19 02:00 18 105/47 Mechanical Ventilator 40 11/16/19 02:00 90 18 105/47 (66) 96 11/16/19 01:30 88 18 112/72 (85) 96 11/16/19 01:00 88 19 131/20 (57) 97 11/16/19 01:00 19 131/20 Mechanical Ventilator 40 11/16/19 00:30 95 21 130/59 (82) 98 11/16/19 00:00 40 11/16/19 00:00 Mechanical Ventilator 11/16/19 00:00 99.1 88 19 109/34 (59) 97 11/16/19 00:00 88 11/16/19 00:00 18 130/59 Mechanical Ventilator 40 11/15/19 23:34 84 22 40 11/15/19 23:30 93 18 98/59 (72) 100 11/15/19 23:00 18 98/56 Mechanical Ventilator 40 11/15/19 23:00 89 18 114/56 (75) 97 11/15/19 22:30 87 18 119/70 (86) 99 11/15/19 22:00 85 17 117/44 (68) 97 11/15/19 22:00 18 117/44 Mechanical Ventilator 40 11/15/19 21:30 95 20 155/62 (93) 98 11/15/19 21:22 98 167/52 11/15/19 21:00 96 22 162/57 (92) 97 11/15/19 21:00 22 162/57 Mechanical Ventilator 40 11/15/19 20:30 90 20 108/45 (66) 97 11/15/19 20:00 89 11/15/19 20:00 99.0 96 21 129/27 (61) 100 11/15/19 20:00 21 165/57 Mechanical Ventilator 40 11/15/19 20:00 40 11/15/19 20:00 Mechanical Ventilator 11/15/19 19:51 91 22 40 11/15/19 19:30 88 22 94/44 (61) 97 11/15/19 19:00 86 21 108/69 (82) 96 11/15/19 19:00 20 108/69 Mechanical Ventilator 40 11/15/19 18:30 88 20 123/75 (91) 97 11/15/19 18:00 88 20 132/42 (72) 98 11/15/19 18:00 19 132/42 Mechanical Ventilator 40 11/15/19 17:30 89 20 113/43 (66) 98 11/15/19 17:11 20 138/61 Mechanical Ventilator 40 11/15/19 17:00 97 19 138/61 (86) 98 11/15/19 17:00 20 138/61 Mechanical Ventilator 40 11/15/19 16:00 40 11/15/19 16:00 78 20 141/57 (85) 95 11/15/19 16:00 22 141/57 Mechanical Ventilator 40 11/15/19 16:00 Mechanical Ventilator 11/15/19 16:00 78 11/15/19 15:43 108 27 40 11/15/19 15:00 103 24 151/68 (95) 96 11/15/19 14:26 98 151/66 11/15/19 14:00 98 22 151/66 (94) 96 Intake and Output 11/16/19 11/17/19 19:00 07:00 Intake Total 1809 ml 1471.5 ml Output Total 1525 ml 750 ml Balance 284 ml 721.5 ml Free Water 60 ml IV Total 1209 ml 991.5 ml Tube Feeding 480 ml 480 ml Blood Product 60 ml Output Urine Total 1525 ml 750 ml # Bowel Movements 3 1 Labs Test 11/14/19 16:38 11/15/19 04:00 11/15/19 04:15 11/15/19 10:17 POC Whole Blood Glucose 389 MG/DL (74-106) 289 MG/DL (74-106) White Blood Count 20.7 K/UL (4.8-10.8) Red Blood Count 4.24 M/UL (4.20-5.40) Hemoglobin 11.1 G/DL (12.0-16.0) Hematocrit 39.0 % (37.0-47.0) Mean Corpuscular Volume 92 FL (80-99) Mean Corpuscular Hemoglobin 26.1 PG (27.0-31.0) Mean Corpuscular Hemoglobin Concent 28.3 G/DL (32.0-36.0) Red Cell Distribution Width 16.9 % (11.6-14.8) Platelet Count 268 K/UL (150-450) Mean Platelet Volume 7.1 FL (6.5-10.1) Neutrophils (%) (Auto) % (45.0-75.0) Lymphocytes (%) (Auto) % (20.0-45.0) Monocytes (%) (Auto) % (1.0-10.0) Eosinophils (%) (Auto) % (0.0-3.0) Basophils (%) (Auto) % (0.0-2.0) Differential Total Cells Counted 100 Neutrophils % (Manual) 86 % (45-75) Lymphocytes % (Manual) 6 % (20-45) Monocytes % (Manual) 8 % (1-10) Eosinophils % (Manual) 0 % (0-3) Basophils % (Manual) 0 % (0-2) Band Neutrophils 0 % (0-8) Platelet Estimate Adequate Platelet Morphology Normal Hypochromasia 1+ Anisocytosis 1+ Sodium Level 149 MMOL/L (136-145) Potassium Level 4.6 MMOL/L (3.5-5.1) Chloride Level 113 MMOL/L (98-107) Carbon Dioxide Level 34 MMOL/L (21-32) Anion Gap 2 mmol/L (5-15) Blood Urea Nitrogen 34 mg/dL (7-18) Creatinine 0.9 MG/DL (0.55-1.30) Estimat Glomerular Filtration Rate > 60 mL/min (>60) Glucose Level 370 MG/DL (74-106) Calcium Level 8.4 MG/DL (8.5-10.1) Phosphorus Level 3.4 MG/DL (2.5-4.9) Magnesium Level 2.3 MG/DL (1.8-2.4) Total Bilirubin 1.1 MG/DL (0.2-1.0) Direct Bilirubin 0.9 MG/DL (0.0-0.3) Aspartate Amino Transf (AST/SGOT) 41 U/L (15-37) Alanine Aminotransferase (ALT/SGPT) 44 U/L (12-78) Alkaline Phosphatase 211 U/L (46-116) C-Reactive Protein, Quantitative 1.7 mg/dL (0.00-0.90) Pro-B-Type Natriuretic Peptide 3673 pg/mL (0-125) Total Protein 6.5 G/DL (6.4-8.2) Albumin 2.4 G/DL (3.4-5.0) Globulin 4.1 g/dL Albumin/Globulin Ratio 0.6 (1.0-2.7) Test 11/15/19 17:53 11/16/19 00:16 11/16/19 04:00 11/16/19 05:54 POC Whole Blood Glucose 218 MG/DL (74-106) White Blood Count 22.3 K/UL (4.8-10.8) Red Blood Count 3.87 M/UL (4.20-5.40) Hemoglobin 10.2 G/DL (12.0-16.0) Hematocrit 35.1 % (37.0-47.0) Mean Corpuscular Volume 91 FL (80-99) Mean Corpuscular Hemoglobin 26.5 PG (27.0-31.0) Mean Corpuscular Hemoglobin Concent 29.2 G/DL (32.0-36.0) Red Cell Distribution Width 16.5 % (11.6-14.8) Platelet Count 240 K/UL (150-450) Mean Platelet Volume 7.1 FL (6.5-10.1) Neutrophils (%) (Auto) % (45.0-75.0) Lymphocytes (%) (Auto) % (20.0-45.0) Monocytes (%) (Auto) % (1.0-10.0) Eosinophils (%) (Auto) % (0.0-3.0) Basophils (%) (Auto) % (0.0-2.0) Differential Total Cells Counted 100 Neutrophils % (Manual) 88 % (45-75) Lymphocytes % (Manual) 7 % (20-45) Monocytes % (Manual) 4 % (1-10) Eosinophils % (Manual) 1 % (0-3) Basophils % (Manual) 0 % (0-2) Band Neutrophils 0 % (0-8) Platelet Estimate Adequate Platelet Morphology Normal Hypochromasia 1+ Anisocytosis 1+ Sodium Level 150 MMOL/L (136-145) Potassium Level 4.1 MMOL/L (3.5-5.1) Chloride Level 113 MMOL/L (98-107) Carbon Dioxide Level 35 MMOL/L (21-32) Anion Gap 2 mmol/L (5-15) Blood Urea Nitrogen 25 mg/dL (7-18) Creatinine 0.9 MG/DL (0.55-1.30) Estimat Glomerular Filtration Rate > 60 mL/min (>60) Glucose Level 204 MG/DL (74-106) Calcium Level 8.3 MG/DL (8.5-10.1) Total Bilirubin 1.1 MG/DL (0.2-1.0) Direct Bilirubin 0.9 MG/DL (0.0-0.3) Aspartate Amino Transf (AST/SGOT) 46 U/L (15-37) Alanine Aminotransferase (ALT/SGPT) 42 U/L (12-78) Alkaline Phosphatase 211 U/L (46-116) Total Protein 6.0 G/DL (6.4-8.2) Albumin 2.2 G/DL (3.4-5.0) Globulin 3.8 g/dL Albumin/Globulin Ratio 0.6 (1.0-2.7) Test 11/16/19 07:31 11/16/19 13:19 11/16/19 17:10 11/16/19 20:49 Arterial Blood pH 7.354 (7.350-7.450) Arterial Blood Partial Pressure CO2 56.6 mmHg (35.0-45.0) Arterial Blood Partial Pressure O2 64.3 mmHg (75.0-100.0) Arterial Blood HCO3 30.8 mmol/L (22.0-26.0) Arterial Blood Oxygen Saturation 92.2 % (95-100) Arterial Blood Base Excess 4.2 (-2-2) Steve Test Positive POC Whole Blood Glucose 268 MG/DL (74-106) Test 11/16/19 23:58 11/17/19 03:45 11/17/19 09:40 White Blood Count 20.9 K/UL (4.8-10.8) Red Blood Count 3.82 M/UL (4.20-5.40) Hemoglobin 10.2 G/DL (12.0-16.0) Hematocrit 34.3 % (37.0-47.0) Mean Corpuscular Volume 90 FL (80-99) Mean Corpuscular Hemoglobin 26.7 PG (27.0-31.0) Mean Corpuscular Hemoglobin Concent 29.7 G/DL (32.0-36.0) Red Cell Distribution Width 16.5 % (11.6-14.8) Platelet Count 234 K/UL (150-450) Mean Platelet Volume 7.0 FL (6.5-10.1) Neutrophils (%) (Auto) % (45.0-75.0) Lymphocytes (%) (Auto) % (20.0-45.0) Monocytes (%) (Auto) % (1.0-10.0) Eosinophils (%) (Auto) % (0.0-3.0) Basophils (%) (Auto) % (0.0-2.0) Differential Total Cells Counted 100 Neutrophils % (Manual) 95 % (45-75) Lymphocytes % (Manual) 3 % (20-45) Monocytes % (Manual) 2 % (1-10) Eosinophils % (Manual) 0 % (0-3) Basophils % (Manual) 0 % (0-2) Band Neutrophils 0 % (0-8) Platelet Estimate Adequate Platelet Morphology Normal Anisocytosis 1+ Sodium Level 145 MMOL/L (136-145) Potassium Level 4.2 MMOL/L (3.5-5.1) Chloride Level 110 MMOL/L (98-107) Carbon Dioxide Level 34 MMOL/L (21-32) Anion Gap 1 mmol/L (5-15) Blood Urea Nitrogen 26 mg/dL (7-18) Creatinine 0.9 MG/DL (0.55-1.30) Estimat Glomerular Filtration Rate > 60 mL/min (>60) Glucose Level 252 MG/DL (74-106) Calcium Level 8.5 MG/DL (8.5-10.1) Phosphorus Level 2.9 MG/DL (2.5-4.9) Magnesium Level 2.2 MG/DL (1.8-2.4) Total Bilirubin 1.2 MG/DL (0.2-1.0) Direct Bilirubin 0.8 MG/DL (0.0-0.3) Aspartate Amino Transf (AST/SGOT) 35 U/L (15-37) Alanine Aminotransferase (ALT/SGPT) 33 U/L (12-78) Alkaline Phosphatase 180 U/L (46-116) Total Protein 6.4 G/DL (6.4-8.2) Albumin 2.4 G/DL (3.4-5.0) Height (Feet): 5 Height (Inches): 3.00 Weight (Pounds): 325 Objective Physical Exam: Vitals: reviewed General: NAD HEENT: nc, at Neck: supple Chest: clear breath sounds on vent++ Cardiovascular: RRR, no s3, s4 Abdomen: soft, nontender, nd Extremities: no cce, normal range of motion Neuro: alert and oriented Ismael Fischer MD Nov 17, 2019 13:06
--- NOTE | 2019-11-17 13:53 | General Progress Note ---
Assessment/Plan Problem List: (1) Afib ICD Codes: I48.91 - Unspecified atrial fibrillation SNOMED: 86474470 (2) Epistaxis ICD Codes: R04.0 - Epistaxis SNOMED: 696095399 (3) Weak ICD Codes: R53.1 - Weakness SNOMED: 70751793 (4) UTI (urinary tract infection) ICD Codes: N39.0 - Urinary tract infection, site not specified SNOMED: 06040932 (5) Diabetes ICD Codes: E11.9 - Type 2 diabetes mellitus without complications SNOMED: 94237217 (6) CHF (congestive heart failure) ICD Codes: I50.9 - Heart failure, unspecified SNOMED: 50668902 (7) Multifocal pneumonia ICD Codes: J18.9 - Pneumonia, unspecified organism SNOMED: 895340722 (8) 2019 novel coronavirus disease (COVID-19) ICD Codes: U07.1 - COVID-19 SNOMED: 869154457 (9) Respiratory failure ICD Codes: J96.90 - Respiratory failure, unspecified, unspecified whether with hypoxia or hypercapnia SNOMED: 610650797 Status: unchanged Assessment/Plan: vent abx bp bs control cbc bmp am Subjective Constitutional: Reports: weakness Allergies: Coded Allergies: No Known Allergies (Unverified , 11/06/19) All Systems: reviewed and negative except above Subjective intubated sedated in icu Objective Last 24 Hour Vital Signs Date Time Temp Pulse Resp B/P (MAP) Pulse Ox O2 Delivery O2 Flow Rate FiO2 11/17/19 13:34 83 18 145/74 (97) 98 11/17/19 13:00 77 17 146/76 (99) 99 11/17/19 12:29 72 18 120/56 (77) 97 11/17/19 12:00 Mechanical Ventilator 11/17/19 12:00 78 18 107/53 (71) 98 11/17/19 11:55 83 11/17/19 11:30 98.7 85 19 100/53 (69) 99 11/17/19 11:29 18 122/67 Mechanical Ventilator 11/17/19 11:09 86 17 137/77 (97) 98 11/17/19 11:08 84 18 40 11/17/19 11:00 89 18 122/67 (85) 99 11/17/19 10:35 86 17 137/77 (97) 98 11/17/19 10:05 81 19 119/88 (98) 97 11/17/19 09:48 100 11/17/19 09:46 40 11/17/19 09:40 40 11/17/19 09:00 76 18 151/80 (103) 97 11/17/19 08:30 77 17 120/64 (82) 97 11/17/19 08:00 40 11/17/19 08:00 73 11/17/19 08:00 Mechanical Ventilator 11/17/19 08:00 73 18 102/54 (70) 97 11/17/19 07:40 80 18 40 11/17/19 07:30 75 18 114/55 (74) 96 11/17/19 07:00 18 92/56 Mechanical Ventilator 40 11/17/19 07:00 74 18 92/56 (68) 95 11/17/19 06:30 74 18 106/60 (75) 96 11/17/19 06:30 68 19 11/17/19 06:00 86 18 140/62 (88) 96 11/17/19 06:00 18 140/62 Mechanical Ventilator 40 11/17/19 05:43 81 150/81 11/17/19 05:30 85 18 150/81 (104) 99 11/17/19 05:00 18 122/63 Mechanical Ventilator 40 11/17/19 05:00 82 18 122/63 (82) 97 11/17/19 04:30 84 19 137/51 (79) 97 11/17/19 04:00 Mechanical Ventilator 11/17/19 04:00 40 11/17/19 04:00 18 132/62 Mechanical Ventilator 40 11/17/19 04:00 98.5 88 18 132/66 (88) 96 11/17/19 04:00 90 11/17/19 03:30 87 18 141/82 (101) 98 11/17/19 03:01 81 20 40 11/17/19 03:00 84 18 136/61 (86) 99 11/17/19 03:00 18 136/61 Mechanical Ventilator 40 11/17/19 02:30 88 18 139/78 (98) 98 11/17/19 02:00 19 142/67 Mechanical Ventilator 40 11/17/19 02:00 90 19 142/67 (92) 99 11/17/19 01:30 81 18 123/55 (77) 97 11/17/19 01:00 82 18 113/65 (81) 96 11/17/19 01:00 18 113/65 Mechanical Ventilator 40 11/17/19 00:30 79 18 114/66 (82) 96 11/17/19 00:00 40 11/17/19 00:00 18 119/55 Mechanical Ventilator 40 11/17/19 00:00 98.8 81 18 119/55 (76) 96 11/17/19 00:00 Mechanical Ventilator 11/17/19 00:00 85 11/16/19 23:30 78 18 100/55 (70) 96 11/16/19 23:06 86 18 40 11/16/19 23:00 18 115/65 Mechanical Ventilator 40 11/16/19 23:00 79 18 115/65 (82) 96 11/16/19 22:30 85 18 124/55 (78) 95 11/16/19 22:14 84 117/66 11/16/19 22:00 18 117/66 Mechanical Ventilator 40 11/16/19 22:00 84 18 117/66 (83) 96 11/16/19 21:30 81 18 123/75 (91) 96 11/16/19 21:00 83 18 113/57 (75) 96 11/16/19 21:00 18 113/57 Mechanical Ventilator 40 11/16/19 20:30 82 18 101/48 (65) 96 11/16/19 20:00 87 18 111/46 (67) 96 11/16/19 20:00 Mechanical Ventilator 11/16/19 20:00 40 11/16/19 20:00 18 111/46 Mechanical Ventilator 40 11/16/19 20:00 91 11/16/19 19:32 92 18 40 11/16/19 19:30 87 18 129/59 (82) 99 11/16/19 19:00 18 130/64 Mechanical Ventilator 40 11/16/19 19:00 89 19 130/64 (86) 96 11/16/19 18:29 89 22 141/75 (97) 97 11/16/19 18:00 19 141/75 Mechanical Ventilator 40 11/16/19 17:59 98.0 86 19 128/79 (95) 96 11/16/19 17:00 19 108/78 Mechanical Ventilator 40 11/16/19 17:00 86 18 106/60 (75) 96 11/16/19 16:00 40 11/16/19 16:00 18 106/43 Mechanical Ventilator 40 11/16/19 16:00 Mechanical Ventilator 11/16/19 16:00 90 18 120/63 (82) 96 11/16/19 16:00 86 11/16/19 15:05 103 18 40 11/16/19 15:00 83 18 113/73 (86) 97 11/16/19 15:00 18 112/51 Mechanical Ventilator 40 11/16/19 14:00 80 18 95/34 (54) 97 11/16/19 14:00 18 99/57 Mechanical Ventilator 40 Intake and Output 11/16/19 11/17/19 19:00 07:00 Intake Total 1809 ml 1471.5 ml Output Total 1525 ml 750 ml Balance 284 ml 721.5 ml Free Water 60 ml IV Total 1209 ml 991.5 ml Tube Feeding 480 ml 480 ml Blood Product 60 ml Output Urine Total 1525 ml 750 ml # Bowel Movements 3 1 Laboratory Tests 11/16/19 17:10: POC Whole Blood Glucose 268H 11/16/19 20:49: POC Whole Blood Glucose [Pending] 11/16/19 23:58: POC Whole Blood Glucose [Pending] 11/17/19 03:45: White Blood Count 20.9H, Red Blood Count 3.82L, Hemoglobin 10.2L, Hematocrit 34.3L, Mean Corpuscular Volume 90, Mean Corpuscular Hemoglobin 26.7L, Mean Corpuscular Hemoglobin Concent 29.7L, Red Cell Distribution Width 16.5H, Platelet Count 234, Mean Platelet Volume 7.0, Neutrophils (%) (Auto) , Lymphocytes (%) (Auto) , Monocytes (%) (Auto) , Eosinophils (%) (Auto) , Basophils (%) (Auto) , Differential Total Cells Counted 100, Neutrophils % ( Manual) 95H, Lymphocytes % (Manual) 3L, Monocytes % (Manual) 2, Eosinophils % ( Manual) 0, Basophils % (Manual) 0, Band Neutrophils 0, Platelet Estimate Adequate, Platelet Morphology Normal, Anisocytosis 1+, Sodium Level 145, Potassium Level 4.2, Chloride Level 110H, Carbon Dioxide Level 34H, Anion Gap 1L , Blood Urea Nitrogen 26H, Creatinine 0.9, Estimat Glomerular Filtration Rate > 60, Glucose Level 252H, Calcium Level 8.5, Phosphorus Level 2.9, Magnesium Level 2.2, Total Bilirubin 1.2H, Direct Bilirubin 0.8H, Aspartate Amino Transf ( AST/SGOT) 35, Alanine Aminotransferase (ALT/SGPT) 33, Alkaline Phosphatase 180H , Total Protein 6.4, Albumin 2.4L 11/17/19 09:40: POC Whole Blood Glucose [Pending] Height (Feet): 5 Height (Inches): 3.00 Weight (Pounds): 325 General Appearance: lethargic EENT: normal ENT inspection Neck: normal alignment Cardiovascular: normal rate, regular rhythm Respiratory/Chest: no respiratory distress, no accessory muscle use Extremities: normal inspection Skin: normal pigmentation Gustabo aCrter DO Nov 17, 2019 13:53
[2019-11-17] MEDS ORDERED: Dyna-Hex 2% Top Sol 2oz TOPIC SCH (20:00)
[2019-11-17] MEDS: Dyna-Hex 2% Top Sol 2oz TOPIC SCH (20:00)
[2019-11-18] VITALS (47 sets, daily range): BP systolic 81–159; BP diastolic 42–101
[2019-11-18] MEDS: NovoLOG Insulin Flexpen SUBQ SCH ×4 (05:17→23:54)
[2019-11-18 05:29] LABS: HEMATOCRIT 35.7 % (37.0-47.0); HEMOGLOBIN 10.5 G/DL (12.0-16.0); MEAN CORPUSCULAR VOLUME 90 FL (80-99); PLATELET COUNT 269 K/UL (150-450); RED BLOOD COUNT 3.96 M/UL (4.20-5.40); WHITE BLOOD COUNT 18.8 K/UL (4.8-10.8)
[2019-11-18 05:32] LABS: ANION GAP 2 mmol/L (5-15); BLOOD UREA NITROGEN 26 mg/dL (7-18); CALCIUM 8.3 MG/DL (8.5-10.1); CARBON DIOXIDE 35 MMOL/L (21-32); CHLORIDE 108 MMOL/L (98-107); CREATININE 0.9 MG/DL (0.55-1.30); POTASSIUM 4.3 MMOL/L (3.5-5.1); SODIUM 145 MMOL/L (136-145)
[2019-11-18] MEDS: Eliquis 5mg tablet NGT SCH (08:47)
[2019-11-18] MEDS: Levemir Flexpen SUBQ SCH ×2 (08:51→20:43)
--- NOTE | 2019-11-18 08:57 | General Progress Note ---
Assessment/Plan Problem List: (1) Afib ICD Codes: I48.91 - Unspecified atrial fibrillation SNOMED: 91483603 (2) Epistaxis ICD Codes: R04.0 - Epistaxis SNOMED: 867975975 (3) Weak ICD Codes: R53.1 - Weakness SNOMED: 17489422 (4) UTI (urinary tract infection) ICD Codes: N39.0 - Urinary tract infection, site not specified SNOMED: 39817072 (5) Diabetes ICD Codes: E11.9 - Type 2 diabetes mellitus without complications SNOMED: 25237555 (6) CHF (congestive heart failure) ICD Codes: I50.9 - Heart failure, unspecified SNOMED: 00625736 (7) Multifocal pneumonia ICD Codes: J18.9 - Pneumonia, unspecified organism SNOMED: 946234925 (8) 2019 novel coronavirus disease (COVID-19) ICD Codes: U07.1 - COVID-19 SNOMED: 397316719 (9) Respiratory failure ICD Codes: J96.90 - Respiratory failure, unspecified, unspecified whether with hypoxia or hypercapnia SNOMED: 776956244 Status: unchanged Assessment/Plan: vent abx bp bs control cbc bmp am Subjective Constitutional: Reports: weakness Allergies: Coded Allergies: No Known Allergies (Unverified , 11/06/19) All Systems: reviewed and negative except above Subjective intubated sedated in icu Objective Last 24 Hour Vital Signs Date Time Temp Pulse Resp B/P (MAP) Pulse Ox O2 Delivery O2 Flow Rate FiO2 11/18/19 08:48 137 145/96 11/18/19 08:00 101 11/18/19 07:30 98 19 40 40 11/18/19 07:00 100 21 145/96 (112) 99 11/18/19 06:30 93 20 138/85 (102) 98 11/18/19 06:05 94 20 11/18/19 06:00 99.6 90 20 129/69 (89) 99 11/18/19 05:30 90 21 150/79 (102) 98 11/18/19 05:00 20 130/69 Mechanical Ventilator 40 11/18/19 05:00 99.7 88 20 130/69 (89) 98 11/18/19 04:30 87 19 125/81 (96) 98 11/18/19 04:00 99.9 90 18 138/93 (108) 98 11/18/19 04:00 18 138/93 Mechanical Ventilator 40 11/18/19 04:00 Mechanical Ventilator 11/18/19 04:00 40 11/18/19 03:50 96 20 132/75 (94) 98 11/18/19 03:41 88 19 40 11/18/19 03:30 89 17 147/74 (98) 99 11/18/19 03:12 95 11/18/19 03:00 18 147/101 Mechanical Ventilator 40 11/18/19 03:00 86 17 143/58 (86) 99 11/18/19 02:30 94 20 133/86 (102) 96 11/18/19 02:00 18 120/65 Mechanical Ventilator 40 11/18/19 02:00 79 18 100/66 (77) 99 11/18/19 01:30 78 18 112/58 (76) 95 11/18/19 01:00 81 18 108/70 (83) 96 11/18/19 01:00 18 108/70 Mechanical Ventilator 40 11/18/19 00:30 78 18 110/58 (75) 96 11/18/19 00:00 Mechanical Ventilator 11/18/19 00:00 99.6 80 18 118/74 (89) 98 11/18/19 00:00 18 118/74 Mechanical Ventilator 40 11/18/19 00:00 35 11/17/19 23:30 78 18 107/58 (74) 98 11/17/19 23:19 76 18 40 11/17/19 23:07 81 11/17/19 23:00 18 107/58 Mechanical Ventilator 40 11/17/19 23:00 83 18 138/58 (84) 96 11/17/19 22:30 72 18 100/64 (76) 100 11/17/19 22:00 73 18 94/68 (77) 98 11/17/19 22:00 18 105/65 Mechanical Ventilator 40 11/17/19 21:30 71 18 105/65 (78) 100 11/17/19 21:00 83 18 126/57 (80) 99 11/17/19 21:00 18 126/57 Mechanical Ventilator 40 11/17/19 20:43 87 156/69 11/17/19 20:30 82 18 135/62 (86) 98 11/17/19 20:00 35 11/17/19 20:00 18 156/89 Mechanical Ventilator 40 11/17/19 20:00 98.4 87 19 156/69 (98) 98 11/17/19 20:00 Mechanical Ventilator 11/17/19 19:45 90 18 40 11/17/19 19:30 87 18 144/67 (92) 100 11/17/19 19:11 76 11/17/19 19:07 18 118/57 Mechanical Ventilator 11/17/19 19:00 83 18 118/57 (77) 11/17/19 18:35 82 18 136/69 (91) 98 11/17/19 18:00 80 18 144/77 (99) 98 11/17/19 18:00 18 136/69 Mechanical Ventilator 11/17/19 17:30 86 18 134/58 (83) 99 11/17/19 17:00 18 113/62 Mechanical Ventilator 11/17/19 17:00 98.6 85 18 145/62 (89) 99 11/17/19 16:30 94 18 134/65 (88) 96 11/17/19 16:15 20 134/65 Mechanical Ventilator 11/17/19 16:02 40 11/17/19 16:01 Mechanical Ventilator 11/17/19 16:00 81 24 154/78 (103) 100 11/17/19 16:00 85 11/17/19 15:30 76 18 129/65 (86) 94 11/17/19 15:17 113 28 40 11/17/19 15:05 88 18 130/55 (80) 100 11/17/19 15:00 18 129/65 Mechanical Ventilator 11/17/19 14:30 86 18 141/72 (95) 97 11/17/19 14:02 88 18 125/63 (83) 98 11/17/19 14:00 18 141/72 Mechanical Ventilator 11/17/19 13:34 83 18 145/74 (97) 98 11/17/19 13:00 77 17 146/76 (99) 99 11/17/19 13:00 18 146/76 Mechanical Ventilator 11/17/19 12:29 72 18 120/56 (77) 97 11/17/19 12:00 Mechanical Ventilator 11/17/19 12:00 18 120/56 Mechanical Ventilator 11/17/19 12:00 78 18 107/53 (71) 98 7/28/20 11:55 83 11/17/19 11:30 98.7 85 19 100/53 (69) 99 11/17/19 11:29 18 122/67 Mechanical Ventilator 11/17/19 11:09 86 17 137/77 (97) 98 11/17/19 11:08 84 18 40 11/17/19 11:00 89 18 122/67 (85) 99 11/17/19 10:35 86 17 137/77 (97) 98 11/17/19 10:05 81 19 119/88 (98) 97 11/17/19 10:00 18 143/75 Mechanical Ventilator 11/17/19 09:48 100 11/17/19 09:46 40 11/17/19 09:40 40 11/17/19 09:00 76 18 151/80 (103) 97 Intake and Output 11/17/19 11/18/19 19:00 07:00 Intake Total 1286 ml 1822.5 ml Output Total 545 ml 480 ml Balance 741 ml 1342.5 ml Free Water 100 ml IV Total 846 ml 1102.5 ml Tube Feeding 440 ml 620 ml Output Urine Total 545 ml 480 ml # Bowel Movements 1 Laboratory Tests 11/17/19 09:40: POC Whole Blood Glucose [Pending] 11/17/19 12:53: POC Whole Blood Glucose [Pending] 11/17/19 18:09: POC Whole Blood Glucose [Pending] 11/18/19 04:00: White Blood Count 18.8H, Red Blood Count 3.96L, Hemoglobin 10.5L, Hematocrit 35.7L, Mean Corpuscular Volume 90, Mean Corpuscular Hemoglobin 26.5L, Mean Corpuscular Hemoglobin Concent 29.4L, Red Cell Distribution Width 17.0H, Platelet Count 269, Mean Platelet Volume 7.2, Neutrophils (%) (Auto) , Lymphocytes (%) (Auto) , Monocytes (%) (Auto) , Eosinophils (%) (Auto) , Basophils (%) (Auto) , Differential Total Cells Counted 100, Neutrophils % ( Manual) 87H, Lymphocytes % (Manual) 5L, Monocytes % (Manual) 7, Eosinophils % ( Manual) 1, Basophils % (Manual) 0, Band Neutrophils 0, Platelet Estimate Adequate, Platelet Morphology Normal, Hypochromasia 1+, Anisocytosis 1+, Sodium Level 145, Potassium Level 4.3, Chloride Level 108H, Carbon Dioxide Level 35H, Anion Gap 2L, Blood Urea Nitrogen 26H, Creatinine 0.9, Estimat Glomerular Filtration Rate > 60, Glucose Level 178H, Calcium Level 8.3L Height (Feet): 5 Height (Inches): 3.00 Weight (Pounds): 292 General Appearance: lethargic EENT: normal ENT inspection Neck: normal inspection Cardiovascular: normal rate, regular rhythm Respiratory/Chest: no respiratory distress, no accessory muscle use Extremities: normal inspection Skin: normal pigmentation Gustabo Cartre DO Nov 18, 2019 08:57
--- NOTE | 2019-11-18 10:20 | General Progress Note ---
Assessment/Plan Problem List: (1) Respiratory failure ICD Codes: J96.90 - Respiratory failure, unspecified, unspecified whether with hypoxia or hypercapnia SNOMED: 945317717 (2) 2019 novel coronavirus disease (COVID-19) ICD Codes: U07.1 - COVID-19 SNOMED: 718714456 (3) Multifocal pneumonia ICD Codes: J18.9 - Pneumonia, unspecified organism SNOMED: 110496100 (4) Afib ICD Codes: I48.91 - Unspecified atrial fibrillation SNOMED: 14957427 (5) CHF (congestive heart failure) ICD Codes: I50.9 - Heart failure, unspecified SNOMED: 48452127 (6) Diabetes ICD Codes: E11.9 - Type 2 diabetes mellitus without complications SNOMED: 57999936 (7) Fluid overload ICD Codes: E87.70 - Fluid overload, unspecified SNOMED: 18088740 (8) Epistaxis ICD Codes: R04.0 - Epistaxis SNOMED: 691886940 Status: unchanged Assessment/Plan: fu H&H prn blood transfusion NGTF no residuals iv fluid per nephrology off all laxatives given diarrhea patient on Eliquis pending possible extubation will fu Subjective ROS Limited/Unobtainable: No Allergies: Coded Allergies: No Known Allergies (Unverified , 11/06/19) Objective Last 24 Hour Vital Signs Date Time Temp Pulse Resp B/P (MAP) Pulse Ox O2 Delivery O2 Flow Rate FiO2 11/18/19 09:00 118 26 150/95 (113) 91 11/18/19 08:48 137 145/96 11/18/19 08:30 133 27 147/101 (116) 94 11/18/19 08:00 100.0 103 22 145/92 (109) 98 11/18/19 08:00 Mechanical Ventilator 11/18/19 08:00 40 11/18/19 08:00 101 11/18/19 07:30 98 19 40 40 11/18/19 07:00 100 21 145/96 (112) 99 11/18/19 06:30 93 20 138/85 (102) 98 11/18/19 06:05 94 20 11/18/19 06:00 99.6 90 20 129/69 (89) 99 11/18/19 05:30 90 21 150/79 (102) 98 11/18/19 05:00 20 130/69 Mechanical Ventilator 40 11/18/19 05:00 99.7 88 20 130/69 (89) 98 11/18/19 04:30 87 19 125/81 (96) 98 11/18/19 04:00 99.9 90 18 138/93 (108) 98 11/18/19 04:00 18 138/93 Mechanical Ventilator 40 11/18/19 04:00 Mechanical Ventilator 11/18/19 04:00 40 11/18/19 03:50 96 20 132/75 (94) 98 11/18/19 03:41 88 19 40 11/18/19 03:30 89 17 147/74 (98) 99 11/18/19 03:12 95 11/18/19 03:00 18 147/101 Mechanical Ventilator 40 11/18/19 03:00 86 17 143/58 (86) 99 11/18/19 02:30 94 20 133/86 (102) 96 11/18/19 02:00 18 120/65 Mechanical Ventilator 40 11/18/19 02:00 79 18 100/66 (77) 99 11/18/19 01:30 78 18 112/58 (76) 95 11/18/19 01:00 81 18 108/70 (83) 96 11/18/19 01:00 18 108/70 Mechanical Ventilator 40 11/18/19 00:30 78 18 110/58 (75) 96 11/18/19 00:00 Mechanical Ventilator 11/18/19 00:00 99.6 80 18 118/74 (89) 98 11/18/19 00:00 18 118/74 Mechanical Ventilator 40 11/18/19 00:00 35 11/17/19 23:30 78 18 107/58 (74) 98 11/17/19 23:19 76 18 40 11/17/19 23:07 81 11/17/19 23:00 18 107/58 Mechanical Ventilator 40 11/17/19 23:00 83 18 138/58 (84) 96 11/17/19 22:30 72 18 100/64 (76) 100 11/17/19 22:00 73 18 94/68 (77) 98 11/17/19 22:00 18 105/65 Mechanical Ventilator 40 11/17/19 21:30 71 18 105/65 (78) 100 11/17/19 21:00 83 18 126/57 (80) 99 11/17/19 21:00 18 126/57 Mechanical Ventilator 40 11/17/19 20:43 87 156/69 11/17/19 20:30 82 18 135/62 (86) 98 11/17/19 20:00 35 11/17/19 20:00 18 156/89 Mechanical Ventilator 40 11/17/19 20:00 98.4 87 19 156/69 (98) 98 11/17/19 20:00 Mechanical Ventilator 11/17/19 19:45 90 18 40 11/17/19 19:30 87 18 144/67 (92) 100 11/17/19 19:11 76 11/17/19 19:07 18 118/57 Mechanical Ventilator 11/17/19 19:00 83 18 118/57 (77) 11/17/19 18:35 82 18 136/69 (91) 98 11/17/19 18:00 80 18 144/77 (99) 98 11/17/19 18:00 18 136/69 Mechanical Ventilator 11/17/19 17:30 86 18 134/58 (83) 99 11/17/19 17:00 18 113/62 Mechanical Ventilator 11/17/19 17:00 98.6 85 18 145/62 (89) 99 11/17/19 16:30 94 18 134/65 (88) 96 11/17/19 16:15 20 134/65 Mechanical Ventilator 11/17/19 16:02 40 11/17/19 16:01 Mechanical Ventilator 11/17/19 16:00 81 24 154/78 (103) 100 11/17/19 16:00 85 11/17/19 15:30 76 18 129/65 (86) 94 11/17/19 15:17 113 28 40 11/17/19 15:05 88 18 130/55 (80) 100 11/17/19 15:00 18 129/65 Mechanical Ventilator 11/17/19 14:30 86 18 141/72 (95) 97 11/17/19 14:02 88 18 125/63 (83) 98 11/17/19 14:00 18 141/72 Mechanical Ventilator 11/17/19 13:34 83 18 145/74 (97) 98 11/17/19 13:00 77 17 146/76 (99) 99 11/17/19 13:00 18 146/76 Mechanical Ventilator 11/17/19 12:29 72 18 120/56 (77) 97 11/17/19 12:00 Mechanical Ventilator 11/17/19 12:00 18 120/56 Mechanical Ventilator 11/17/19 12:00 78 18 107/53 (71) 98 11/17/19 11:55 83 11/17/19 11:30 98.7 85 19 100/53 (69) 99 11/17/19 11:29 18 122/67 Mechanical Ventilator 11/17/19 11:09 86 17 137/77 (97) 98 11/17/19 11:08 84 18 40 11/17/19 11:00 89 18 122/67 (85) 99 11/17/19 10:35 86 17 137/77 (97) 98 Intake and Output 11/17/19 11/18/19 19:00 07:00 Intake Total 1286 ml 1822.5 ml Output Total 545 ml 480 ml Balance 741 ml 1342.5 ml Free Water 100 ml IV Total 846 ml 1102.5 ml Tube Feeding 440 ml 620 ml Output Urine Total 545 ml 480 ml # Bowel Movements 1 Laboratory Tests 11/17/19 12:53: POC Whole Blood Glucose [Pending] 11/17/19 18:09: POC Whole Blood Glucose [Pending] 11/18/19 04:00: White Blood Count 18.8H, Red Blood Count 3.96L, Hemoglobin 10.5L, Hematocrit 35.7L, Mean Corpuscular Volume 90, Mean Corpuscular Hemoglobin 26.5L, Mean Corpuscular Hemoglobin Concent 29.4L, Red Cell Distribution Width 17.0H, Platelet Count 269, Mean Platelet Volume 7.2, Neutrophils (%) (Auto) , Lymphocytes (%) (Auto) , Monocytes (%) (Auto) , Eosinophils (%) (Auto) , Basophils (%) (Auto) , Differential Total Cells Counted 100, Neutrophils % ( Manual) 87H, Lymphocytes % (Manual) 5L, Monocytes % (Manual) 7, Eosinophils % ( Manual) 1, Basophils % (Manual) 0, Band Neutrophils 0, Platelet Estimate Adequate, Platelet Morphology Normal, Hypochromasia 1+, Anisocytosis 1+, Sodium Level 145, Potassium Level 4.3, Chloride Level 108H, Carbon Dioxide Level 35H, Anion Gap 2L, Blood Urea Nitrogen 26H, Creatinine 0.9, Estimat Glomerular Filtration Rate > 60, Glucose Level 178H, Calcium Level 8.3L 11/18/19 09:31: Arterial Blood pH 7.386, Arterial Blood Partial Pressure CO2 50.2H, Arterial Blood Partial Pressure O2 63.2L, Arterial Blood HCO3 29.4H, Arterial Blood Oxygen Saturation 92.3L, Arterial Blood Base Excess 3.5H, Steve Test Positive Height (Feet): 5 Height (Inches): 3.00 Weight (Pounds): 292 General Appearance: lethargic EENT: normal ENT inspection Neck: supple Cardiovascular: tachycardia Respiratory/Chest: decreased breath sounds Abdomen: normal bowel sounds, non tender, soft Extremities: non-tender Case Patel MD Nov 18, 2019 10:20
--- NOTE | 2019-11-18 11:03 | Infectious Diseases Prog Note ---
Assessment/Plan Assessment/Plan antibiotics : none A 1. COVID 19 pneumonia on 40 percent Fi O2, PEEP 5, saturation 97 percent 2. respiratory failure 3. leucocytosis improving 4. diabetes mellitus 5. hypertension P 1. complete off antibiotics 2. will follow up cultures 3. continue isolation 4. extubation planned Subjective ROS Limited/Unobtainable: Yes Allergies: Coded Allergies: No Known Allergies (Unverified , 11/06/19) Objective Last 24 Hour Vital Signs Date Time Temp Pulse Resp B/P (MAP) Pulse Ox O2 Delivery O2 Flow Rate FiO2 11/18/19 10:00 106 21 133/90 (104) 97 11/18/19 09:00 118 26 150/95 (113) 91 11/18/19 08:48 137 145/96 11/18/19 08:30 133 27 147/101 (116) 94 11/18/19 08:00 100.0 103 22 145/92 (109) 98 11/18/19 08:00 Mechanical Ventilator 11/18/19 08:00 40 11/18/19 08:00 101 11/18/19 07:30 98 19 40 40 11/18/19 07:00 100 21 145/96 (112) 99 11/18/19 06:30 93 20 138/85 (102) 98 11/18/19 06:05 94 20 11/18/19 06:00 99.6 90 20 129/69 (89) 99 11/18/19 05:30 90 21 150/79 (102) 98 11/18/19 05:00 20 130/69 Mechanical Ventilator 40 11/18/19 05:00 99.7 88 20 130/69 (89) 98 11/18/19 04:30 87 19 125/81 (96) 98 11/18/19 04:00 99.9 90 18 138/93 (108) 98 11/18/19 04:00 18 138/93 Mechanical Ventilator 40 11/18/19 04:00 Mechanical Ventilator 11/18/19 04:00 40 11/18/19 03:50 96 20 132/75 (94) 98 11/18/19 03:41 88 19 40 11/18/19 03:30 89 17 147/74 (98) 99 11/18/19 03:12 95 11/18/19 03:00 18 147/101 Mechanical Ventilator 40 11/18/19 03:00 86 17 143/58 (86) 99 11/18/19 02:30 94 20 133/86 (102) 96 11/18/19 02:00 18 120/65 Mechanical Ventilator 40 11/18/19 02:00 79 18 100/66 (77) 99 11/18/19 01:30 78 18 112/58 (76) 95 11/18/19 01:00 81 18 108/70 (83) 96 11/18/19 01:00 18 108/70 Mechanical Ventilator 40 11/18/19 00:30 78 18 110/58 (75) 96 11/18/19 00:00 Mechanical Ventilator 11/18/19 00:00 99.6 80 18 118/74 (89) 98 11/18/19 00:00 18 118/74 Mechanical Ventilator 40 11/18/19 00:00 35 11/17/19 23:30 78 18 107/58 (74) 98 11/17/19 23:19 76 18 40 11/17/19 23:07 81 11/17/19 23:00 18 107/58 Mechanical Ventilator 40 11/17/19 23:00 83 18 138/58 (84) 96 11/17/19 22:30 72 18 100/64 (76) 100 11/17/19 22:00 73 18 94/68 (77) 98 11/17/19 22:00 18 105/65 Mechanical Ventilator 40 11/17/19 21:30 71 18 105/65 (78) 100 11/17/19 21:00 83 18 126/57 (80) 99 11/17/19 21:00 18 126/57 Mechanical Ventilator 40 11/17/19 20:43 87 156/69 11/17/19 20:30 82 18 135/62 (86) 98 11/17/19 20:00 35 11/17/19 20:00 18 156/89 Mechanical Ventilator 40 11/17/19 20:00 98.4 87 19 156/69 (98) 98 11/17/19 20:00 Mechanical Ventilator 11/17/19 19:45 90 18 40 11/17/19 19:30 87 18 144/67 (92) 100 11/17/19 19:11 76 11/17/19 19:07 18 118/57 Mechanical Ventilator 11/17/19 19:00 83 18 118/57 (77) 11/17/19 18:35 82 18 136/69 (91) 98 11/17/19 18:00 80 18 144/77 (99) 98 11/17/19 18:00 18 136/69 Mechanical Ventilator 11/17/19 17:30 86 18 134/58 (83) 99 11/17/19 17:00 18 113/62 Mechanical Ventilator 11/17/19 17:00 98.6 85 18 145/62 (89) 99 11/17/19 16:30 94 18 134/65 (88) 96 11/17/19 16:15 20 134/65 Mechanical Ventilator 11/17/19 16:02 40 11/17/19 16:01 Mechanical Ventilator 11/17/19 16:00 81 24 154/78 (103) 100 11/17/19 16:00 85 11/17/19 15:30 76 18 129/65 (86) 94 11/17/19 15:17 113 28 40 11/17/19 15:05 88 18 130/55 (80) 100 11/17/19 15:00 18 129/65 Mechanical Ventilator 11/17/19 14:30 86 18 141/72 (95) 97 11/17/19 14:02 88 18 125/63 (83) 98 11/17/19 14:00 18 141/72 Mechanical Ventilator 11/17/19 13:34 83 18 145/74 (97) 98 11/17/19 13:00 77 17 146/76 (99) 99 11/17/19 13:00 18 146/76 Mechanical Ventilator 11/17/19 12:29 72 18 120/56 (77) 97 11/17/19 12:00 Mechanical Ventilator 11/17/19 12:00 18 120/56 Mechanical Ventilator 11/17/19 12:00 78 18 107/53 (71) 98 11/17/19 11:55 83 11/17/19 11:30 98.7 85 19 100/53 (69) 99 11/17/19 11:29 18 122/67 Mechanical Ventilator 11/17/19 11:09 86 17 137/77 (97) 98 11/17/19 11:08 84 18 40 Height (Feet): 5 Height (Inches): 3.00 Weight (Pounds): 292 HEENT: other - intubated Laboratory Tests Test 11/17/19 12:53 11/17/19 18:09 11/18/19 04:00 11/18/19 09:31 POC Whole Blood Glucose Pending Pending White Blood Count 18.8 K/UL (4.8-10.8) H Red Blood Count 3.96 M/UL (4.20-5.40) L Hemoglobin 10.5 G/DL (12.0-16.0) L Hematocrit 35.7 % (37.0-47.0) L Mean Corpuscular Volume 90 FL (80-99) Mean Corpuscular Hemoglobin 26.5 PG (27.0-31.0) L Mean Corpuscular Hemoglobin Concent 29.4 G/DL (32.0-36.0) L Red Cell Distribution Width 17.0 % (11.6-14.8) H Platelet Count 269 K/UL (150-450) Mean Platelet Volume 7.2 FL (6.5-10.1) Neutrophils (%) (Auto) % (45.0-75.0) Lymphocytes (%) (Auto) % (20.0-45.0) Monocytes (%) (Auto) % (1.0-10.0) Eosinophils (%) (Auto) % (0.0-3.0) Basophils (%) (Auto) % (0.0-2.0) Differential Total Cells Counted 100 Neutrophils % (Manual) 87 % (45-75) H Lymphocytes % (Manual) 5 % (20-45) L Monocytes % (Manual) 7 % (1-10) Eosinophils % (Manual) 1 % (0-3) Basophils % (Manual) 0 % (0-2) Band Neutrophils 0 % (0-8) Platelet Estimate Adequate Platelet Morphology Normal Hypochromasia 1+ Anisocytosis 1+ Sodium Level 145 MMOL/L (136-145) Potassium Level 4.3 MMOL/L (3.5-5.1) Chloride Level 108 MMOL/L (98-107) H Carbon Dioxide Level 35 MMOL/L (21-32) H Anion Gap 2 mmol/L (5-15) L Blood Urea Nitrogen 26 mg/dL (7-18) H Creatinine 0.9 MG/DL (0.55-1.30) Estimat Glomerular Filtration Rate > 60 mL/min (>60) Glucose Level 178 MG/DL (74-106) H Calcium Level 8.3 MG/DL (8.5-10.1) L Arterial Blood pH 7.386 (7.350-7.450) Arterial Blood Partial Pressure CO2 50.2 mmHg (35.0-45.0) H Arterial Blood Partial Pressure O2 63.2 mmHg (75.0-100.0) L Arterial Blood HCO3 29.4 mmol/L (22.0-26.0) H Arterial Blood Oxygen Saturation 92.3 % (95-100) L Arterial Blood Base Excess 3.5 (-2-2) H Steve Test Positive Current Medications Medications (Trade) Dose Ordered Sig/Robyn Route PRN Reason Start Time Stop Time Status Last Admin Dose Admin Acetaminophen (Tylenol) 650 mg Q6H PRN NG Temp >100.5 11/12/19 00:15 12/12/19 00:14 11/16/19 09:02 Apixaban (Eliquis) 5 mg BID NGT 11/14/19 09:00 02/12/20 08:59 11/18/19 08:47 Chlorhexidine Gluconate (Miya-Hex 2%) 1 applic DAILY@2000 TOPIC 11/08/19 21:30 02/06/20 21:29 11/17/19 20:00 Clonidine HCl (Catapres Tab) 0.1 mg Q4H PRN NG For High Blood Pressure 11/13/19 17:00 02/09/20 10:59 Dextrose 1,000 ml @ 75 mls/hr [id number] IV 11/14/19 08:15 12/14/19 08:14 11/18/19 05:16 Dextrose (Dextrose 50%) 25 ml Q30M PRN IV Hypoglycemia 11/08/19 12:30 02/05/20 02:59 Dextrose (Dextrose 50%) 50 ml Q30M PRN IV Hypoglycemia 11/08/19 12:30 02/05/20 02:59 Famotidine (Pepcid I.v.) 20 mg Q12HR IVP 11/08/19 15:30 12/08/19 15:29 11/18/19 08:47 Fentanyl Citrate 250 ml @ 0 mls/hr Q24H IV 11/08/19 12:29 02/06/20 12:28 11/17/19 11:29 Folic Acid (Folate) 2 mg DAILY GT 11/15/19 09:00 12/15/19 08:59 11/18/19 08:47 Heparin Sodium/ Sodium Chloride (Heparin 1000 units/500ml Premix) 1,000 unit ONCE PRN IV PICC LINE PLACEMENT 11/17/19 09:00 11/19/19 08:59 Insulin Aspart (NovoLOG) EVERY 6 HOURS SUBQ 11/15/19 12:00 02/11/20 20:59 11/18/19 05:17 Insulin Detemir (Levemir) 20 units Q12HR SUBQ 11/15/19 21:00 02/11/20 20:59 11/18/19 08:51 Lidocaine HCl (Xylocaine 1% 30ml) 30 ml ONCE PRN INJ PICC LINE PLACEMENT 11/17/19 09:00 11/19/19 08:59 Lorazepam (Ativan 2mg/ml 1ml) 1 mg Q4H PRN IV For Anxiety 11/14/19 10:00 11/21/19 09:59 11/16/19 09:00 Metoprolol Tartrate (Lopressor) 50 mg Q12HR NG 11/17/19 21:00 02/15/20 20:59 11/18/19 08:48 Rosette Bowman MD Nov 18, 2019 11:03
--- NOTE | 2019-11-18 12:13 | Pulmonology Progress Note ---
Subjective ROS Limited/Unobtainable: Yes Interval Events: Intubated; weaning Constitutional: Denies: fever HEENT: Repors: no symptoms Respiratory: Reports: dry cough, shortness of breath Cardiovascular: Reports: no symptoms Gastrointestinal/Abdominal: Reports: no symptoms Allergies: Coded Allergies: No Known Allergies (Unverified , 11/06/19) All Systems: reviewed and negative except above Objective Last 24 Hour Vital Signs Date Time Temp Pulse Resp B/P (MAP) Pulse Ox O2 Delivery O2 Flow Rate FiO2 11/18/19 12:00 40 11/18/19 12:00 19 89/56 Mechanical Ventilator 40 11/18/19 11:49 82 11/18/19 11:00 18 126/90 Mechanical Ventilator 40 11/18/19 10:05 120 25 40 11/18/19 10:00 30 133/119 Mechanical Ventilator 40 11/18/19 10:00 106 21 133/90 (104) 97 11/18/19 09:30 93 11/18/19 09:00 118 26 150/95 (113) 91 11/18/19 08:48 137 145/96 11/18/19 08:30 133 27 147/101 (116) 94 11/18/19 08:00 100.0 103 22 145/92 (109) 98 11/18/19 08:00 Mechanical Ventilator 11/18/19 08:00 40 11/18/19 08:00 101 11/18/19 07:30 98 19 40 40 11/18/19 07:00 100 21 145/96 (112) 99 11/18/19 06:30 93 20 138/85 (102) 98 11/18/19 06:05 94 20 11/18/19 06:00 99.6 90 20 129/69 (89) 99 11/18/19 05:30 90 21 150/79 (102) 98 11/18/19 05:00 20 130/69 Mechanical Ventilator 40 11/18/19 05:00 99.7 88 20 130/69 (89) 98 11/18/19 04:30 87 19 125/81 (96) 98 11/18/19 04:00 99.9 90 18 138/93 (108) 98 11/18/19 04:00 18 138/93 Mechanical Ventilator 40 11/18/19 04:00 Mechanical Ventilator 11/18/19 04:00 40 11/18/19 03:50 96 20 132/75 (94) 98 11/18/19 03:41 88 19 40 11/18/19 03:30 89 17 147/74 (98) 99 11/18/19 03:12 95 11/18/19 03:00 18 147/101 Mechanical Ventilator 40 11/18/19 03:00 86 17 143/58 (86) 99 11/18/19 02:30 94 20 133/86 (102) 96 11/18/19 02:00 18 120/65 Mechanical Ventilator 40 11/18/19 02:00 79 18 100/66 (77) 99 11/18/19 01:30 78 18 112/58 (76) 95 11/18/19 01:00 81 18 108/70 (83) 96 11/18/19 01:00 18 108/70 Mechanical Ventilator 40 11/18/19 00:30 78 18 110/58 (75) 96 11/18/19 00:00 Mechanical Ventilator 11/18/19 00:00 99.6 80 18 118/74 (89) 98 11/18/19 00:00 18 118/74 Mechanical Ventilator 40 11/18/19 00:00 35 11/17/19 23:30 78 18 107/58 (74) 98 11/17/19 23:19 76 18 40 11/17/19 23:07 81 11/17/19 23:00 18 107/58 Mechanical Ventilator 40 11/17/19 23:00 83 18 138/58 (84) 96 11/17/19 22:30 72 18 100/64 (76) 100 11/17/19 22:00 73 18 94/68 (77) 98 11/17/19 22:00 18 105/65 Mechanical Ventilator 40 11/17/19 21:30 71 18 105/65 (78) 100 11/17/19 21:00 83 18 126/57 (80) 99 11/17/19 21:00 18 126/57 Mechanical Ventilator 40 11/17/19 20:43 87 156/69 11/17/19 20:30 82 18 135/62 (86) 98 11/17/19 20:00 35 11/17/19 20:00 18 156/89 Mechanical Ventilator 40 11/17/19 20:00 98.4 87 19 156/69 (98) 98 11/17/19 20:00 Mechanical Ventilator 7/28/20 19:45 90 18 40 11/17/19 19:30 87 18 144/67 (92) 100 11/17/19 19:11 76 11/17/19 19:07 18 118/57 Mechanical Ventilator 11/17/19 19:00 83 18 118/57 (77) 11/17/19 18:35 82 18 136/69 (91) 98 11/17/19 18:00 80 18 144/77 (99) 98 11/17/19 18:00 18 136/69 Mechanical Ventilator 11/17/19 17:30 86 18 134/58 (83) 99 11/17/19 17:00 18 113/62 Mechanical Ventilator 11/17/19 17:00 98.6 85 18 145/62 (89) 99 11/17/19 16:30 94 18 134/65 (88) 96 11/17/19 16:15 20 134/65 Mechanical Ventilator 11/17/19 16:02 40 11/17/19 16:01 Mechanical Ventilator 11/17/19 16:00 81 24 154/78 (103) 100 11/17/19 16:00 85 11/17/19 15:30 76 18 129/65 (86) 94 11/17/19 15:17 113 28 40 11/17/19 15:05 88 18 130/55 (80) 100 11/17/19 15:00 18 129/65 Mechanical Ventilator 11/17/19 14:30 86 18 141/72 (95) 97 11/17/19 14:02 88 18 125/63 (83) 98 11/17/19 14:00 18 141/72 Mechanical Ventilator 11/17/19 13:34 83 18 145/74 (97) 98 11/17/19 13:00 77 17 146/76 (99) 99 11/17/19 13:00 18 146/76 Mechanical Ventilator 11/17/19 12:29 72 18 120/56 (77) 97 Intake and Output 11/17/19 11/18/19 19:00 07:00 Intake Total 1286 ml 1822.5 ml Output Total 545 ml 480 ml Balance 741 ml 1342.5 ml Free Water 100 ml IV Total 846 ml 1102.5 ml Tube Feeding 440 ml 620 ml Output Urine Total 545 ml 480 ml # Bowel Movements 1 General Appearance: no acute distress HEENT: normocephalic Respiratory: decreased breath sounds Cardiovascular: normal peripheral pulses Abdomen: normal bowel sounds Extremities: no cyanosis Laboratory Tests 11/17/19 12:53: POC Whole Blood Glucose [Pending] 11/17/19 18:09: POC Whole Blood Glucose [Pending] 11/17/19 19:55: POC Whole Blood Glucose [Pending] 11/17/19 23:02: POC Whole Blood Glucose [Pending] 11/18/19 04:00: White Blood Count 18.8H, Red Blood Count 3.96L, Hemoglobin 10.5L, Hematocrit 35.7L, Mean Corpuscular Volume 90, Mean Corpuscular Hemoglobin 26.5L, Mean Corpuscular Hemoglobin Concent 29.4L, Red Cell Distribution Width 17.0H, Platelet Count 269, Mean Platelet Volume 7.2, Neutrophils (%) (Auto) , Lymphocytes (%) (Auto) , Monocytes (%) (Auto) , Eosinophils (%) (Auto) , Basophils (%) (Auto) , Differential Total Cells Counted 100, Neutrophils % ( Manual) 87H, Lymphocytes % (Manual) 5L, Monocytes % (Manual) 7, Eosinophils % ( Manual) 1, Basophils % (Manual) 0, Band Neutrophils 0, Platelet Estimate Adequate, Platelet Morphology Normal, Hypochromasia 1+, Anisocytosis 1+, Sodium Level 145, Potassium Level 4.3, Chloride Level 108H, Carbon Dioxide Level 35H, Anion Gap 2L, Blood Urea Nitrogen 26H, Creatinine 0.9, Estimat Glomerular Filtration Rate > 60, Glucose Level 178H, Calcium Level 8.3L 11/18/19 05:12: POC Whole Blood Glucose [Pending] 11/18/19 09:31: Arterial Blood pH 7.386, Arterial Blood Partial Pressure CO2 50.2H, Arterial Blood Partial Pressure O2 63.2L, Arterial Blood HCO3 29.4H, Arterial Blood Oxygen Saturation 92.3L, Arterial Blood Base Excess 3.5H, Steve Test Positive Current Medications Medications (Trade) Dose Ordered Sig/Robyn Route PRN Reason Start Time Stop Time Status Last Admin Dose Admin Acetaminophen (Tylenol) 650 mg Q6H PRN NG Temp >100.5 11/12/19 00:15 12/12/19 00:14 11/16/19 09:02 Apixaban (Eliquis) 5 mg BID NGT 11/14/19 09:00 02/12/20 08:59 11/18/19 08:47 Chlorhexidine Gluconate (Miya-Hex 2%) 1 applic DAILY@2000 TOPIC 11/08/19 21:30 02/06/20 21:29 11/17/19 20:00 Clonidine HCl (Catapres Tab) 0.1 mg Q4H PRN NG For High Blood Pressure 11/13/19 17:00 02/09/20 10:59 Dextrose (Dextrose 50%) 25 ml Q30M PRN IV Hypoglycemia 11/08/19 12:30 02/05/20 02:59 Dextrose (Dextrose 50%) 50 ml Q30M PRN IV Hypoglycemia 11/08/19 12:30 02/05/20 02:59 Famotidine (Pepcid I.v.) 20 mg Q12HR IVP 11/08/19 15:30 12/08/19 15:29 11/18/19 08:47 Fentanyl Citrate 250 ml @ 0 mls/hr Q24H IV 11/08/19 12:29 02/06/20 12:28 11/17/19 11:29 Folic Acid (Folate) 2 mg DAILY GT 11/15/19 09:00 12/15/19 08:59 11/18/19 08:47 Heparin Sodium/ Sodium Chloride (Heparin 1000 units/500ml Premix) 1,000 unit ONCE PRN IV PICC LINE PLACEMENT 11/17/19 09:00 11/19/19 08:59 Insulin Aspart (NovoLOG) EVERY 6 HOURS SUBQ 11/15/19 12:00 02/11/20 20:59 11/18/19 05:17 Insulin Detemir (Levemir) 20 units Q12HR SUBQ 11/15/19 21:00 02/11/20 20:59 11/18/19 08:51 Lidocaine HCl (Xylocaine 1% 30ml) 30 ml ONCE PRN INJ PICC LINE PLACEMENT 11/17/19 09:00 11/19/19 08:59 Lorazepam (Ativan 2mg/ml 1ml) 1 mg Q4H PRN IV For Anxiety 11/14/19 10:00 11/21/19 09:59 11/16/19 09:00 Metoprolol Tartrate (Lopressor) 50 mg Q12HR NG 11/17/19 21:00 02/15/20 20:59 11/18/19 08:48 Assessment/Plan Assessment/Plan IMPRESSION: 1. COVID-19 pneumonia. 2. Diabetes mellitus and hypertension. 3. Lactic acidemia. 4. Epistaxis 5. Respiratory failure DISCUSSION: Careful and close monitoring. Continue medications Hope to extubate today Vent weaning to continue. I will follow carefully. Lakeisha Zavaleta Omar Syed MD Nov 18, 2019 12:13
[2019-11-18] MEDS: fentaNYL 2500mcg/NS 250ml 250 ML IV SCH (12:32)
--- NOTE | 2019-11-18 14:05 | Surgery Progress Note ---
Surgery Progress Note Subjective Procedure Performed Hemostasis of left nostril hemorrhage emergency Additional Comments ill appearing no n/v/f/c labs noted exam stable pending extubation but becomes tachy Objective Last 24 Hour Vital Signs Date Time Temp Pulse Resp B/P (MAP) Pulse Ox O2 Delivery O2 Flow Rate FiO2 11/18/19 13:30 77 18 83/50 (61) 100 11/18/19 13:00 77 19 114/76 (89) 100 11/18/19 12:34 79 18 101/78 (86) 99 11/18/19 12:32 19 89/56 Mechanical Ventilator 60.0 40 11/18/19 12:30 77 18 81/42 (55) 97 11/18/19 12:00 40 11/18/19 12:00 19 89/56 Mechanical Ventilator 40 11/18/19 12:00 Mechanical Ventilator 11/18/19 12:00 99.2 81 18 89/56 (67) 97 11/18/19 11:49 82 11/18/19 11:30 84 18 99/60 (73) 96 11/18/19 11:00 100 22 126/90 (102) 93 11/18/19 11:00 18 126/90 Mechanical Ventilator 40 11/18/19 10:05 120 25 40 11/18/19 10:00 30 133/119 Mechanical Ventilator 40 11/18/19 10:00 106 21 133/90 (104) 97 11/18/19 09:30 93 11/18/19 09:00 118 26 150/95 (113) 91 11/18/19 08:48 137 145/96 11/18/19 08:30 133 27 147/101 (116) 94 11/18/19 08:00 100.0 103 22 145/92 (109) 98 11/18/19 08:00 Mechanical Ventilator 11/18/19 08:00 40 11/18/19 08:00 101 11/18/19 07:30 98 19 40 40 11/18/19 07:00 100 21 145/96 (112) 99 11/18/19 06:30 93 20 138/85 (102) 98 11/18/19 06:05 94 20 11/18/19 06:00 99.6 90 20 129/69 (89) 99 11/18/19 05:30 90 21 150/79 (102) 98 11/18/19 05:00 20 130/69 Mechanical Ventilator 40 11/18/19 05:00 99.7 88 20 130/69 (89) 98 11/18/19 04:30 87 19 125/81 (96) 98 11/18/19 04:00 99.9 90 18 138/93 (108) 98 11/18/19 04:00 18 138/93 Mechanical Ventilator 40 11/18/19 04:00 Mechanical Ventilator 11/18/19 04:00 40 11/18/19 03:50 96 20 132/75 (94) 98 11/18/19 03:41 88 19 40 11/18/19 03:30 89 17 147/74 (98) 99 11/18/19 03:12 95 11/18/19 03:00 18 147/101 Mechanical Ventilator 40 11/18/19 03:00 86 17 143/58 (86) 99 11/18/19 02:30 94 20 133/86 (102) 96 11/18/19 02:00 18 120/65 Mechanical Ventilator 40 11/18/19 02:00 79 18 100/66 (77) 99 11/18/19 01:30 78 18 112/58 (76) 95 11/18/19 01:00 81 18 108/70 (83) 96 11/18/19 01:00 18 108/70 Mechanical Ventilator 40 11/18/19 00:30 78 18 110/58 (75) 96 11/18/19 00:00 Mechanical Ventilator 11/18/19 00:00 99.6 80 18 118/74 (89) 98 11/18/19 00:00 18 118/74 Mechanical Ventilator 40 11/18/19 00:00 35 11/17/19 23:30 78 18 107/58 (74) 98 11/17/19 23:19 76 18 40 11/17/19 23:07 81 11/17/19 23:00 18 107/58 Mechanical Ventilator 40 11/17/19 23:00 83 18 138/58 (84) 96 11/17/19 22:30 72 18 100/64 (76) 100 11/17/19 22:00 73 18 94/68 (77) 98 11/17/19 22:00 18 105/65 Mechanical Ventilator 40 11/17/19 21:30 71 18 105/65 (78) 100 7/28/20 21:00 83 18 126/57 (80) 99 11/17/19 21:00 18 126/57 Mechanical Ventilator 40 11/17/19 20:43 87 156/69 11/17/19 20:30 82 18 135/62 (86) 98 11/17/19 20:00 35 11/17/19 20:00 18 156/89 Mechanical Ventilator 40 11/17/19 20:00 98.4 87 19 156/69 (98) 98 11/17/19 20:00 Mechanical Ventilator 11/17/19 19:45 90 18 40 11/17/19 19:30 87 18 144/67 (92) 100 11/17/19 19:11 76 11/17/19 19:07 18 118/57 Mechanical Ventilator 11/17/19 19:00 83 18 118/57 (77) 11/17/19 18:35 82 18 136/69 (91) 98 11/17/19 18:00 80 18 144/77 (99) 98 11/17/19 18:00 18 136/69 Mechanical Ventilator 11/17/19 17:30 86 18 134/58 (83) 99 11/17/19 17:00 18 113/62 Mechanical Ventilator 11/17/19 17:00 98.6 85 18 145/62 (89) 99 11/17/19 16:30 94 18 134/65 (88) 96 11/17/19 16:15 20 134/65 Mechanical Ventilator 11/17/19 16:02 40 11/17/19 16:01 Mechanical Ventilator 11/17/19 16:00 81 24 154/78 (103) 100 11/17/19 16:00 85 11/17/19 15:30 76 18 129/65 (86) 94 11/17/19 15:17 113 28 40 11/17/19 15:05 88 18 130/55 (80) 100 11/17/19 15:00 18 129/65 Mechanical Ventilator 11/17/19 14:30 86 18 141/72 (95) 97 I&O Intake and Output 11/17/19 11/18/19 19:00 07:00 Intake Total 1286 ml 1822.5 ml Output Total 545 ml 480 ml Balance 741 ml 1342.5 ml Free Water 100 ml IV Total 846 ml 1102.5 ml Tube Feeding 440 ml 620 ml Output Urine Total 545 ml 480 ml # Bowel Movements 1 Dressing: other Wound: other Drains: other Cardiovascular: RSR Respiratory: decreased breath sounds Abdomen: soft, non-tender, present bowel sounds Extremities: no tenderness, no cyanosis Laboratory Tests Test 11/17/19 18:09 11/17/19 19:55 11/17/19 23:02 11/18/19 04:00 POC Whole Blood Glucose Pending Pending Pending White Blood Count 18.8 K/UL (4.8-10.8) H Red Blood Count 3.96 M/UL (4.20-5.40) L Hemoglobin 10.5 G/DL (12.0-16.0) L Hematocrit 35.7 % (37.0-47.0) L Mean Corpuscular Volume 90 FL (80-99) Mean Corpuscular Hemoglobin 26.5 PG (27.0-31.0) L Mean Corpuscular Hemoglobin Concent 29.4 G/DL (32.0-36.0) L Red Cell Distribution Width 17.0 % (11.6-14.8) H Platelet Count 269 K/UL (150-450) Mean Platelet Volume 7.2 FL (6.5-10.1) Neutrophils (%) (Auto) % (45.0-75.0) Lymphocytes (%) (Auto) % (20.0-45.0) Monocytes (%) (Auto) % (1.0-10.0) Eosinophils (%) (Auto) % (0.0-3.0) Basophils (%) (Auto) % (0.0-2.0) Differential Total Cells Counted 100 Neutrophils % (Manual) 87 % (45-75) H Lymphocytes % (Manual) 5 % (20-45) L Monocytes % (Manual) 7 % (1-10) Eosinophils % (Manual) 1 % (0-3) Basophils % (Manual) 0 % (0-2) Band Neutrophils 0 % (0-8) Platelet Estimate Adequate Platelet Morphology Normal Hypochromasia 1+ Anisocytosis 1+ Sodium Level 145 MMOL/L (136-145) Potassium Level 4.3 MMOL/L (3.5-5.1) Chloride Level 108 MMOL/L (98-107) H Carbon Dioxide Level 35 MMOL/L (21-32) H Anion Gap 2 mmol/L (5-15) L Blood Urea Nitrogen 26 mg/dL (7-18) H Creatinine 0.9 MG/DL (0.55-1.30) Estimat Glomerular Filtration Rate > 60 mL/min (>60) Glucose Level 178 MG/DL (74-106) H Calcium Level 8.3 MG/DL (8.5-10.1) L Test 11/18/19 05:12 11/18/19 09:31 POC Whole Blood Glucose Pending Arterial Blood pH 7.386 (7.350-7.450) Arterial Blood Partial Pressure CO2 50.2 mmHg (35.0-45.0) H Arterial Blood Partial Pressure O2 63.2 mmHg (75.0-100.0) L Arterial Blood HCO3 29.4 mmol/L (22.0-26.0) H Arterial Blood Oxygen Saturation 92.3 % (95-100) L Arterial Blood Base Excess 3.5 (-2-2) H Steve Test Positive Plan Problems: (1) Weak (2) UTI (urinary tract infection) (3) Hypoxia (4) Epistaxis Assessment & Plan: Severe after taxis left nostril Rhino Rocket placed hemostasis noted over the course 24 hours hemoglobin stable Lovenox been stopped. The balloon of both ports of the Rhino Rocket were deflated today. The rocket itself was not removed and will monitor over the course next 24 hours hemostasis. If so will gently remove and plan for local monitoring. Currently wean ventilator as tolerated. Goals of extubation when possible. deflated balloon 11/08 removed trumpet 11/09 will monitor for bleeding wean vent plan extubation discussed with pulm (5) Fluid overload Assessment & Plan: Continue central venous catheter for now. Will anticipate removal once patient stable for extubation. Thank you for allowing me to participate patient's care (6) Diabetes (7) CHF (congestive heart failure) (8) Afib (9) Multifocal pneumonia (10) 2019 novel coronavirus disease (COVID-19) Assessment & Plan: + wean vent (11) Respiratory failure Ortiz Fleming Nov 18, 2019 14:05
--- NOTE | 2019-11-18 15:36 | Diagnostic Imaging Report ---
Indications: Needs long-term IV access Technique: Procedure performed at bedside. Procedural timeout performed. Ultrasound confirms patent compressible right basilic vein. Total sterile technique, including sterile probe cover and sterile gel, sterile gloves, hand hygiene, hat, mask,, sterile gown, large sterile drape, and preparation with 2% chlorhexidine utilized. Local anesthesia with 1% lidocaine. Under real-time ultrasound guidance, puncture ] is only vein using 21-gauge needle, passage 0.018 guidewire, exchange for 4 [place] peel-away sheath. 4 [place] Bard dual-lumen power PICC cut to 47 cm. It was inserted through the peel-away sheath. Peel-away sheath and guidewire removed. Catheter fixed to the skin. Both catheter ports aspirated and flushed. Patient tolerated procedure well, without immediate complication. Followup chest x-ray obtained. Catheter tip position is somewhat indeterminate, due to patient body habitus obscuring the end of the catheter. It is definitely in as far at least as the right innominate vein so suitable for use Impression: Successful bedside placement of right arm PICC under sonographic guidance, as described above.
--- NOTE | 2019-11-18 15:37 | Brief Operative Note ---
Immediate Post Operative Note Operative Note Pre-op Diagnosis: needs central IV access Procedure: PICC Post-op Diagnosis: same as pre-op Surgeon: Ángel Lucio Anesthesia: local Specimen: none Complications: none Fluids: none Implant(s) used?: No Demetrio Lucio MD Nov 18, 2019 15:37
--- NOTE | 2019-11-18 15:37 | Nephrology Progress Note ---
Assessment/Plan Problem List: (1) Electrolyte imbalance (2) Diabetes (3) 2019 novel coronavirus disease (COVID-19) (4) Respiratory failure Assessment 1. COVID-19 pneumonia. 2. Diabetes and hyperglycemia 3. Hypertension. 4. Hypoxic respiratory failure 5. Morbid obesity with BMI of 65.5 6. Nasal bleeding 7. Lactic acidosis 8. Hyperkalemia Plan Renal parameters stable Weaning is being attempted patient's urine output is low. We will give a trial of albumin and Lasix, As needed Discussed with RN Stop IV to D5W 75 cc an hour Levemir 20 units subcu every 12 hours Kayexalate for high potassium as needed Monitor electrolytes and renal parameters Tight blood sugar control, long-acting insulin as needed Keep the blood pressure in check Per orders Subjective ROS Limited/Unobtainable: Yes Objective Objective Last 24 Hour Vital Signs Date Time Temp Pulse Resp B/P (MAP) Pulse Ox O2 Delivery O2 Flow Rate FiO2 11/18/19 13:30 77 18 83/50 (61) 100 11/18/19 13:00 77 19 114/76 (89) 100 11/18/19 12:34 79 18 101/78 (86) 99 11/18/19 12:32 19 89/56 Mechanical Ventilator 60.0 40 11/18/19 12:30 77 18 81/42 (55) 97 11/18/19 12:00 40 11/18/19 12:00 19 89/56 Mechanical Ventilator 40 11/18/19 12:00 Mechanical Ventilator 11/18/19 12:00 99.2 81 18 89/56 (67) 97 11/18/19 11:49 82 11/18/19 11:30 84 18 99/60 (73) 96 11/18/19 11:00 100 22 126/90 (102) 93 11/18/19 11:00 18 126/90 Mechanical Ventilator 40 11/18/19 10:05 120 25 40 11/18/19 10:00 30 133/119 Mechanical Ventilator 40 11/18/19 10:00 106 21 133/90 (104) 97 11/18/19 09:30 93 11/18/19 09:00 118 26 150/95 (113) 91 11/18/19 08:48 137 145/96 11/18/19 08:30 133 27 147/101 (116) 94 11/18/19 08:00 100.0 103 22 145/92 (109) 98 11/18/19 08:00 Mechanical Ventilator 11/18/19 08:00 40 11/18/19 08:00 101 11/18/19 07:30 98 19 40 40 11/18/19 07:00 100 21 145/96 (112) 99 11/18/19 06:30 93 20 138/85 (102) 98 11/18/19 06:05 94 20 11/18/19 06:00 99.6 90 20 129/69 (89) 99 11/18/19 05:30 90 21 150/79 (102) 98 11/18/19 05:00 20 130/69 Mechanical Ventilator 40 11/18/19 05:00 99.7 88 20 130/69 (89) 98 11/18/19 04:30 87 19 125/81 (96) 98 11/18/19 04:00 99.9 90 18 138/93 (108) 98 11/18/19 04:00 18 138/93 Mechanical Ventilator 40 11/18/19 04:00 Mechanical Ventilator 11/18/19 04:00 40 11/18/19 03:50 96 20 132/75 (94) 98 11/18/19 03:41 88 19 40 11/18/19 03:30 89 17 147/74 (98) 99 11/18/19 03:12 95 11/18/19 03:00 18 147/101 Mechanical Ventilator 40 11/18/19 03:00 86 17 143/58 (86) 99 11/18/19 02:30 94 20 133/86 (102) 96 11/18/19 02:00 18 120/65 Mechanical Ventilator 40 11/18/19 02:00 79 18 100/66 (77) 99 11/18/19 01:30 78 18 112/58 (76) 95 11/18/19 01:00 81 18 108/70 (83) 96 11/18/19 01:00 18 108/70 Mechanical Ventilator 40 11/18/19 00:30 78 18 110/58 (75) 96 11/18/19 00:00 Mechanical Ventilator 11/18/19 00:00 99.6 80 18 118/74 (89) 98 11/18/19 00:00 18 118/74 Mechanical Ventilator 40 11/18/19 00:00 35 11/17/19 23:30 78 18 107/58 (74) 98 11/17/19 23:19 76 18 40 11/17/19 23:07 81 11/17/19 23:00 18 107/58 Mechanical Ventilator 40 11/17/19 23:00 83 18 138/58 (84) 96 11/17/19 22:30 72 18 100/64 (76) 100 11/17/19 22:00 73 18 94/68 (77) 98 11/17/19 22:00 18 105/65 Mechanical Ventilator 40 11/17/19 21:30 71 18 105/65 (78) 100 11/17/19 21:00 83 18 126/57 (80) 99 11/17/19 21:00 18 126/57 Mechanical Ventilator 40 11/17/19 20:43 87 156/69 11/17/19 20:30 82 18 135/62 (86) 98 11/17/19 20:00 35 11/17/19 20:00 18 156/89 Mechanical Ventilator 40 11/17/19 20:00 98.4 87 19 156/69 (98) 98 11/17/19 20:00 Mechanical Ventilator 11/17/19 19:45 90 18 40 11/17/19 19:30 87 18 144/67 (92) 100 11/17/19 19:11 76 11/17/19 19:07 18 118/57 Mechanical Ventilator 11/17/19 19:00 83 18 118/57 (77) 11/17/19 18:35 82 18 136/69 (91) 98 11/17/19 18:00 80 18 144/77 (99) 98 11/17/19 18:00 18 136/69 Mechanical Ventilator 11/17/19 17:30 86 18 134/58 (83) 99 11/17/19 17:00 18 113/62 Mechanical Ventilator 11/17/19 17:00 98.6 85 18 145/62 (89) 99 11/17/19 16:30 94 18 134/65 (88) 96 11/17/19 16:15 20 134/65 Mechanical Ventilator 11/17/19 16:02 40 11/17/19 16:01 Mechanical Ventilator 11/17/19 16:00 81 24 154/78 (103) 100 11/17/19 16:00 85 Intake and Output 11/17/19 11/18/19 19:00 07:00 Intake Total 1286 ml 1822.5 ml Output Total 545 ml 480 ml Balance 741 ml 1342.5 ml Free Water 100 ml IV Total 846 ml 1102.5 ml Tube Feeding 440 ml 620 ml Output Urine Total 545 ml 480 ml # Bowel Movements 1 Laboratory Tests 11/17/19 18:09: POC Whole Blood Glucose [Pending] 11/17/19 19:55: POC Whole Blood Glucose [Pending] 11/17/19 23:02: POC Whole Blood Glucose [Pending] 11/18/19 04:00: White Blood Count 18.8H, Red Blood Count 3.96L, Hemoglobin 10.5L, Hematocrit 35.7L, Mean Corpuscular Volume 90, Mean Corpuscular Hemoglobin 26.5L, Mean Corpuscular Hemoglobin Concent 29.4L, Red Cell Distribution Width 17.0H, Platelet Count 269, Mean Platelet Volume 7.2, Neutrophils (%) (Auto) , Lymphocytes (%) (Auto) , Monocytes (%) (Auto) , Eosinophils (%) (Auto) , Basophils (%) (Auto) , Differential Total Cells Counted 100, Neutrophils % ( Manual) 87H, Lymphocytes % (Manual) 5L, Monocytes % (Manual) 7, Eosinophils % ( Manual) 1, Basophils % (Manual) 0, Band Neutrophils 0, Platelet Estimate Adequate, Platelet Morphology Normal, Hypochromasia 1+, Anisocytosis 1+, Sodium Level 145, Potassium Level 4.3, Chloride Level 108H, Carbon Dioxide Level 35H, Anion Gap 2L, Blood Urea Nitrogen 26H, Creatinine 0.9, Estimat Glomerular Filtration Rate > 60, Glucose Level 178H, Calcium Level 8.3L 11/18/19 05:12: POC Whole Blood Glucose [Pending] 11/18/19 09:31: Arterial Blood pH 7.386, Arterial Blood Partial Pressure CO2 50.2H, Arterial Blood Partial Pressure O2 63.2L, Arterial Blood HCO3 29.4H, Arterial Blood Oxygen Saturation 92.3L, Arterial Blood Base Excess 3.5H, Steve Test Positive Height (Feet): 5 Height (Inches): 3.00 Weight (Pounds): 292 General Appearance: no apparent distress EENT: other - On mechanical ventilation Cardiovascular: normal rate Respiratory/Chest: decreased breath sounds Abdomen: distended Papa Young MD Nov 18, 2019 15:37
--- NOTE | 2019-11-18 18:53 | Cardiac Electrophysiology PN ---
Assessment/Plan Assessment/Plan 1. Atrial fibrillation. Change metoprolol 50 bid. DC Eliquis in view of hematuria and black stool EF 55% on echo. 2. HTN, Lopressor 50 bid 3. COVID positive pneumonia. On Remdesevir and dexamethasone. 4. Diabetes, on insulin. 5. Respiratory failure on the Vent. 6. S/P Massive nasal bleed. DW [employer] Subjective Subjective In ICU off pressors on the vent with 40% Fio2. had hematuria and black stool. In atrial fib rate controlled on Lopressor 25 bid. Objective Last 24 Hour Vital Signs Date Time Temp Pulse Resp B/P (MAP) Pulse Ox O2 Delivery O2 Flow Rate FiO2 11/18/19 18:30 87 19 150/69 (96) 98 11/18/19 18:00 87 16 133/66 (88) 98 11/18/19 17:30 81 18 123/63 (83) 97 11/18/19 17:00 76 18 100/58 (72) 98 11/18/19 16:30 73 18 103/50 (67) 100 11/18/19 16:00 Mechanical Ventilator 11/18/19 16:00 73 11/18/19 16:00 40 11/18/19 16:00 98.0 80 18 94/52 (66) 96 11/18/19 15:44 72 18 40 11/18/19 15:30 75 18 94/55 (68) 99 11/18/19 15:00 79 20 138/75 (96) 100 11/18/19 14:00 76 18 129/55 (79) 98 11/18/19 13:30 77 18 83/50 (61) 100 11/18/19 13:00 77 19 114/76 (89) 100 11/18/19 12:34 79 18 101/78 (86) 99 11/18/19 12:32 19 89/56 Mechanical Ventilator 60.0 40 11/18/19 12:30 77 18 81/42 (55) 97 11/18/19 12:00 40 11/18/19 12:00 19 89/56 Mechanical Ventilator 40 11/18/19 12:00 Mechanical Ventilator 11/18/19 12:00 99.2 81 18 89/56 (67) 97 11/18/19 11:49 82 11/18/19 11:30 84 18 99/60 (73) 96 11/18/19 11:00 100 22 126/90 (102) 93 11/18/19 11:00 18 126/90 Mechanical Ventilator 40 11/18/19 10:05 120 25 40 11/18/19 10:00 30 133/119 Mechanical Ventilator 40 11/18/19 10:00 106 21 133/90 (104) 97 11/18/19 09:30 93 11/18/19 09:00 118 26 150/95 (113) 91 11/18/19 08:48 137 145/96 11/18/19 08:30 133 27 147/101 (116) 94 11/18/19 08:00 100.0 103 22 145/92 (109) 98 11/18/19 08:00 Mechanical Ventilator 11/18/19 08:00 40 11/18/19 08:00 101 11/18/19 07:30 98 19 40 40 11/18/19 07:00 100 21 145/96 (112) 99 11/18/19 06:30 93 20 138/85 (102) 98 11/18/19 06:05 94 20 11/18/19 06:00 99.6 90 20 129/69 (89) 99 11/18/19 05:30 90 21 150/79 (102) 98 11/18/19 05:00 20 130/69 Mechanical Ventilator 40 11/18/19 05:00 99.7 88 20 130/69 (89) 98 11/18/19 04:30 87 19 125/81 (96) 98 11/18/19 04:00 99.9 90 18 138/93 (108) 98 11/18/19 04:00 18 138/93 Mechanical Ventilator 40 11/18/19 04:00 Mechanical Ventilator 11/18/19 04:00 40 11/18/19 03:50 96 20 132/75 (94) 98 11/18/19 03:41 88 19 40 11/18/19 03:30 89 17 147/74 (98) 99 11/18/19 03:12 95 11/18/19 03:00 18 147/101 Mechanical Ventilator 40 11/18/19 03:00 86 17 143/58 (86) 99 11/18/19 02:30 94 20 133/86 (102) 96 11/18/19 02:00 18 120/65 Mechanical Ventilator 40 11/18/19 02:00 79 18 100/66 (77) 99 11/18/19 01:30 78 18 112/58 (76) 95 11/18/19 01:00 81 18 108/70 (83) 96 11/18/19 01:00 18 108/70 Mechanical Ventilator 40 11/18/19 00:30 78 18 110/58 (75) 96 11/18/19 00:00 Mechanical Ventilator 11/18/19 00:00 99.6 80 18 118/74 (89) 98 11/18/19 00:00 18 118/74 Mechanical Ventilator 40 11/18/19 00:00 35 11/17/19 23:30 78 18 107/58 (74) 98 11/17/19 23:19 76 18 40 11/17/19 23:07 81 11/17/19 23:00 18 107/58 Mechanical Ventilator 40 11/17/19 23:00 83 18 138/58 (84) 96 11/17/19 22:30 72 18 100/64 (76) 100 11/17/19 22:00 73 18 94/68 (77) 98 11/17/19 22:00 18 105/65 Mechanical Ventilator 40 11/17/19 21:30 71 18 105/65 (78) 100 11/17/19 21:00 83 18 126/57 (80) 99 11/17/19 21:00 18 126/57 Mechanical Ventilator 40 11/17/19 20:43 87 156/69 11/17/19 20:30 82 18 135/62 (86) 98 11/17/19 20:00 35 11/17/19 20:00 18 156/89 Mechanical Ventilator 40 11/17/19 20:00 98.4 87 19 156/69 (98) 98 11/17/19 20:00 Mechanical Ventilator 11/17/19 19:45 90 18 40 11/17/19 19:30 87 18 144/67 (92) 100 11/17/19 19:11 76 11/17/19 19:07 18 118/57 Mechanical Ventilator 11/17/19 19:00 83 18 118/57 (77) Intake and Output 11/17/19 11/18/19 19:00 07:00 Intake Total 1286 ml 1822.5 ml Output Total 545 ml 480 ml Balance 741 ml 1342.5 ml Free Water 100 ml IV Total 846 ml 1102.5 ml Tube Feeding 440 ml 620 ml Output Urine Total 545 ml 480 ml # Bowel Movements 1 Laboratory Tests Test 11/17/19 19:55 11/17/19 23:02 11/18/19 04:00 11/18/19 05:12 POC Whole Blood Glucose Pending Pending Pending White Blood Count 18.8 K/UL (4.8-10.8) H Red Blood Count 3.96 M/UL (4.20-5.40) L Hemoglobin 10.5 G/DL (12.0-16.0) L Hematocrit 35.7 % (37.0-47.0) L Mean Corpuscular Volume 90 FL (80-99) Mean Corpuscular Hemoglobin 26.5 PG (27.0-31.0) L Mean Corpuscular Hemoglobin Concent 29.4 G/DL (32.0-36.0) L Red Cell Distribution Width 17.0 % (11.6-14.8) H Platelet Count 269 K/UL (150-450) Mean Platelet Volume 7.2 FL (6.5-10.1) Neutrophils (%) (Auto) % (45.0-75.0) Lymphocytes (%) (Auto) % (20.0-45.0) Monocytes (%) (Auto) % (1.0-10.0) Eosinophils (%) (Auto) % (0.0-3.0) Basophils (%) (Auto) % (0.0-2.0) Differential Total Cells Counted 100 Neutrophils % (Manual) 87 % (45-75) H Lymphocytes % (Manual) 5 % (20-45) L Monocytes % (Manual) 7 % (1-10) Eosinophils % (Manual) 1 % (0-3) Basophils % (Manual) 0 % (0-2) Band Neutrophils 0 % (0-8) Platelet Estimate Adequate Platelet Morphology Normal Hypochromasia 1+ Anisocytosis 1+ Sodium Level 145 MMOL/L (136-145) Potassium Level 4.3 MMOL/L (3.5-5.1) Chloride Level 108 MMOL/L (98-107) H Carbon Dioxide Level 35 MMOL/L (21-32) H Anion Gap 2 mmol/L (5-15) L Blood Urea Nitrogen 26 mg/dL (7-18) H Creatinine 0.9 MG/DL (0.55-1.30) Estimat Glomerular Filtration Rate > 60 mL/min (>60) Glucose Level 178 MG/DL (74-106) H Calcium Level 8.3 MG/DL (8.5-10.1) L Test 11/18/19 09:31 Arterial Blood pH 7.386 (7.350-7.450) Arterial Blood Partial Pressure CO2 50.2 mmHg (35.0-45.0) H Arterial Blood Partial Pressure O2 63.2 mmHg (75.0-100.0) L Arterial Blood HCO3 29.4 mmol/L (22.0-26.0) H Arterial Blood Oxygen Saturation 92.3 % (95-100) L Arterial Blood Base Excess 3.5 (-2-2) H Steve Test Positive Objective HEAD AND NECK: No JVD. OG tube Orally intubated LUNGS: Coarse rhonchi. CARDIOVASCULAR: Irregularly irregular. S1 and S2 with no gallop or murmur. ABDOMEN: Soft. EXTREMITIES: No pitting edema. Gabe Snell MD Nov 18, 2019 18:53
[2019-11-18] MEDS: Dyna-Hex 2% Top Sol 2oz TOPIC SCH (20:00)
--- NOTE | 2019-11-18 21:24 | Hematology/Onc Progress Note ---
Assessment/Plan Assessment/Plan # Anemia of chronic disease due to underlying chronic medical issues, multifactorial v Gi bleed in this case likely related covid19+++++++++ --> Anemia workup has been ordered, rule out gi bleed --> No evidence of hemolysis is noted, peripheral smear has been reviewed. --> Hgb goal >7. Transfuse prn. --> Epogen or iron at this time is not particularly indicated --> Medications have been reviewed --> low threshold for gi evaluation in case has occult + --> hgb 10-->9.8-->9.2-->9.7-->10.7->10->11->10.2 # Leukocytosis/elevated white blood cell count, unspecified likely related to covid19 --> have reviewed peripheral smear and bandemia/neutrophilia noted --> continue antibiotics if they have been started by ID team [email or web address] --> on remdesivir, dexamathasone --> monitor for resolution --> wbc 12->11-->11-->13->16-->21 # COVID 19 pneumonia --> on vent --> respiratory failure --> s/p vent # Diabetes mellitus --> iss and bs goal <140 # Hypertension --> sbp goal <150 Appreciate consultation and jimena RN Subjective Constitutional: Denies: no symptoms, chills, fever, malaise, weakness, other HEENT: Denies: no symptoms, eye pain, blurred vision, tearing, double vision, ear pain, ear discharge, nose pain, nose congestion, throat pain, throat swelling, mouth pain, mouth swelling, other Cardiovascular: Denies: no symptoms, chest pain, edema, irregular heart rate, lightheadedness, palpitations, syncope, other Gastrointestinal/Abdominal: Denies: no symptoms, abdomen distended, abdominal pain, black stools, tarry stools, blood in stool, constipated, diarrhea, difficulty swallowing, nausea, poor appetite, poor fluid intake, rectal bleeding , vomiting, other Genitourinary: Denies: no symptoms, burning, discharge, frequency, flank pain, hematuria, incontinence, pain, urgency, other Neurologic/Psychiatric: Denies: no symptoms, anxiety, depressed, emotional problems, headache, numbness, paresthesia, pre-existing deficit, seizure, tingling, tremors, weakness, other Hematologic/Lymphatic: Denies: no symptoms, anemia, easy bleeding, easy bruising, adenopathy, other Allergies: Coded Allergies: No Known Allergies (Unverified , 11/06/19) Subjective 11/09 weaning prn, meds reviewed, labs noted, hgb 9.2 11/10 on vent, no bleeding, hgb remains low, jimena Rn Jose R in am 11/11 on vent, fluids, ogf tube as well, labs pending in am 11/12 remains altered, no bleeding, labs reviewed, cbc noted 11/13 attempted weaning, but did not do well, no bleeding, hgb 10 11/14 intubated, weaning, on vent, with og, labs noted, abx 11/15 labs noted, no bleedign, weaning protocol, no night sweats, elev wbc, with fevers 11/16 no bleeding, jimena Broussard rn in the am, on vent, weaning but failed 11/17 meds reviewed, no night sweats, jimena rn, no bleeding Objective Objective Current Medications Medications (Trade) Dose Ordered Sig/Robyn Route PRN Reason Start Time Stop Time Status Last Admin Dose Admin Acetaminophen (Tylenol) 650 mg Q6H PRN NG Temp >100.5 11/12/19 00:15 12/12/19 00:14 11/16/19 09:02 Chlorhexidine Gluconate (Miya-Hex 2%) 1 applic DAILY@2000 TOPIC 11/08/19 21:30 02/06/20 21:29 11/18/19 20:00 Clonidine HCl (Catapres Tab) 0.1 mg Q4H PRN NG For High Blood Pressure 11/13/19 17:00 02/09/20 10:59 Dextrose (Dextrose 50%) 25 ml Q30M PRN IV Hypoglycemia 11/08/19 12:30 02/05/20 02:59 11/18/19 20:38 Dextrose (Dextrose 50%) 50 ml Q30M PRN IV Hypoglycemia 11/08/19 12:30 02/05/20 02:59 Famotidine (Pepcid I.v.) 20 mg Q12HR IVP 11/08/19 15:30 12/08/19 15:29 11/18/19 21:04 Fentanyl Citrate 250 ml @ 0 mls/hr Q24H IV 11/08/19 12:29 02/06/20 12:28 11/18/19 12:32 Folic Acid (Folate) 2 mg DAILY GT 11/15/19 09:00 12/15/19 08:59 11/18/19 08:47 Heparin Sodium/ Sodium Chloride (Heparin 1000 units/500ml Premix) 1,000 unit ONCE PRN IV PICC LINE PLACEMENT 11/17/19 09:00 11/19/19 08:59 Insulin Aspart (NovoLOG) EVERY 6 HOURS SUBQ 11/15/19 12:00 02/11/20 20:59 11/18/19 05:17 Insulin Detemir (Levemir) 20 units Q12HR SUBQ 11/15/19 21:00 02/11/20 20:59 11/18/19 08:51 Lidocaine HCl (Xylocaine 1% 30ml) 30 ml ONCE PRN INJ PICC LINE PLACEMENT 11/17/19 09:00 11/19/19 08:59 Lorazepam (Ativan 2mg/ml 1ml) 1 mg Q4H PRN IV For Anxiety 11/14/19 10:00 11/21/19 09:59 11/16/19 09:00 Metoprolol Tartrate (Lopressor) 50 mg Q12HR NG 11/17/19 21:00 02/15/20 20:59 11/18/19 21:05 Last 24 Hour Vital Signs Date Time Temp Pulse Resp B/P (MAP) Pulse Ox O2 Delivery O2 Flow Rate FiO2 11/18/19 21:05 84 150/67 11/18/19 20:00 85 11/18/19 19:30 71 18 40 11/18/19 19:30 75 0 104/56 (72) 96 11/18/19 19:00 85 0 118/53 (74) 97 11/18/19 19:00 18 118/53 Mechanical Ventilator 40 11/18/19 18:30 87 19 150/69 (96) 98 11/18/19 18:00 87 16 133/66 (88) 98 11/18/19 18:00 18 133/66 Mechanical Ventilator 40 11/18/19 17:30 81 18 123/63 (83) 97 11/18/19 17:00 18 123/63 Mechanical Ventilator 40 11/18/19 17:00 76 18 100/58 (72) 98 11/18/19 16:30 73 18 103/50 (67) 100 11/18/19 16:00 Mechanical Ventilator 11/18/19 16:00 73 11/18/19 16:00 40 11/18/19 16:00 18 103/50 Mechanical Ventilator 40 11/18/19 16:00 98.0 80 18 94/52 (66) 96 11/18/19 15:44 72 18 40 11/18/19 15:30 75 18 94/55 (68) 99 11/18/19 15:00 18 138/75 Mechanical Ventilator 40 11/18/19 15:00 79 20 138/75 (96) 100 11/18/19 14:00 76 18 129/55 (79) 98 11/18/19 14:00 18 129/55 Mechanical Ventilator 40 11/18/19 13:30 77 18 83/50 (61) 100 11/18/19 13:00 77 19 114/76 (89) 100 11/18/19 13:00 18 83/50 Mechanical Ventilator 40 11/18/19 12:34 79 18 101/78 (86) 99 11/18/19 12:32 19 89/56 Mechanical Ventilator 60.0 40 11/18/19 12:30 77 18 81/42 (55) 97 11/18/19 12:00 40 11/18/19 12:00 19 89/56 Mechanical Ventilator 40 11/18/19 12:00 Mechanical Ventilator 11/18/19 12:00 99.2 81 18 89/56 (67) 97 11/18/19 11:49 82 11/18/19 11:30 84 18 99/60 (73) 96 11/18/19 11:00 100 22 126/90 (102) 93 11/18/19 11:00 18 126/90 Mechanical Ventilator 40 11/18/19 10:05 120 25 40 11/18/19 10:00 30 133/119 Mechanical Ventilator 40 11/18/19 10:00 106 21 133/90 (104) 97 11/18/19 09:30 93 11/18/19 09:00 118 26 150/95 (113) 91 11/18/19 08:48 137 145/96 11/18/19 08:30 133 27 147/101 (116) 94 11/18/19 08:00 100.0 103 22 145/92 (109) 98 11/18/19 08:00 Mechanical Ventilator 11/18/19 08:00 40 11/18/19 08:00 101 11/18/19 07:30 98 19 40 40 11/18/19 07:00 100 21 145/96 (112) 99 11/18/19 06:30 93 20 138/85 (102) 98 11/18/19 06:05 94 20 11/18/19 06:00 99.6 90 20 129/69 (89) 99 11/18/19 05:30 90 21 150/79 (102) 98 11/18/19 05:00 20 130/69 Mechanical Ventilator 40 11/18/19 05:00 99.7 88 20 130/69 (89) 98 11/18/19 04:30 87 19 125/81 (96) 98 11/18/19 04:00 99.9 90 18 138/93 (108) 98 11/18/19 04:00 18 138/93 Mechanical Ventilator 40 11/18/19 04:00 Mechanical Ventilator 11/18/19 04:00 40 11/18/19 03:50 96 20 132/75 (94) 98 11/18/19 03:41 88 19 40 11/18/19 03:30 89 17 147/74 (98) 99 11/18/19 03:12 95 11/18/19 03:00 18 147/101 Mechanical Ventilator 40 11/18/19 03:00 86 17 143/58 (86) 99 11/18/19 02:30 94 20 133/86 (102) 96 11/18/19 02:00 18 120/65 Mechanical Ventilator 40 11/18/19 02:00 79 18 100/66 (77) 99 11/18/19 01:30 78 18 112/58 (76) 95 11/18/19 01:00 81 18 108/70 (83) 96 11/18/19 01:00 18 108/70 Mechanical Ventilator 40 11/18/19 00:30 78 18 110/58 (75) 96 11/18/19 00:00 Mechanical Ventilator 11/18/19 00:00 99.6 80 18 118/74 (89) 98 11/18/19 00:00 18 118/74 Mechanical Ventilator 40 11/18/19 00:00 35 11/17/19 23:30 78 18 107/58 (74) 98 11/17/19 23:19 76 18 40 11/17/19 23:07 81 11/17/19 23:00 18 107/58 Mechanical Ventilator 40 11/17/19 23:00 83 18 138/58 (84) 96 11/17/19 22:30 72 18 100/64 (76) 100 11/17/19 22:00 73 18 94/68 (77) 98 11/17/19 22:00 18 105/65 Mechanical Ventilator 40 11/17/19 21:30 71 18 105/65 (78) 100 11/17/19 21:00 83 18 126/57 (80) 99 11/17/19 21:00 18 126/57 Mechanical Ventilator 40 11/17/19 20:43 87 156/69 11/17/19 20:30 82 18 135/62 (86) 98 11/17/19 20:00 35 11/17/19 20:00 18 156/89 Mechanical Ventilator 40 11/17/19 20:00 98.4 87 19 156/69 (98) 98 11/17/19 20:00 Mechanical Ventilator 11/17/19 19:45 90 18 40 11/17/19 19:30 87 18 144/67 (92) 100 11/17/19 19:11 76 11/17/19 19:07 18 118/57 Mechanical Ventilator 11/17/19 19:00 83 18 118/57 (77) 11/17/19 18:35 82 18 136/69 (91) 98 11/17/19 18:00 80 18 144/77 (99) 98 11/17/19 18:00 18 136/69 Mechanical Ventilator 11/17/19 17:30 86 18 134/58 (83) 99 11/17/19 17:00 18 113/62 Mechanical Ventilator 11/17/19 17:00 98.6 85 18 145/62 (89) 99 11/17/19 16:30 94 18 134/65 (88) 96 11/17/19 16:15 20 134/65 Mechanical Ventilator 11/17/19 16:02 40 11/17/19 16:01 Mechanical Ventilator 11/17/19 16:00 81 24 154/78 (103) 100 11/17/19 16:00 85 11/17/19 15:30 76 18 129/65 (86) 94 11/17/19 15:17 113 28 40 11/17/19 15:05 88 18 130/55 (80) 100 11/17/19 15:00 18 129/65 Mechanical Ventilator 11/17/19 14:30 86 18 141/72 (95) 97 11/17/19 14:02 88 18 125/63 (83) 98 11/17/19 14:00 18 141/72 Mechanical Ventilator 11/17/19 13:34 83 18 145/74 (97) 98 11/17/19 13:00 77 17 146/76 (99) 99 11/17/19 13:00 18 146/76 Mechanical Ventilator 11/17/19 12:29 72 18 120/56 (77) 97 11/17/19 12:00 Mechanical Ventilator 11/17/19 12:00 18 120/56 Mechanical Ventilator 11/17/19 12:00 78 18 107/53 (71) 98 11/17/19 11:55 83 11/17/19 11:30 98.7 85 19 100/53 (69) 99 11/17/19 11:29 18 122/67 Mechanical Ventilator 11/17/19 11:09 86 17 137/77 (97) 98 11/17/19 11:08 84 18 40 11/17/19 11:00 89 18 122/67 (85) 99 11/17/19 10:35 86 17 137/77 (97) 98 11/17/19 10:05 81 19 119/88 (98) 97 11/17/19 10:00 18 143/75 Mechanical Ventilator 11/17/19 09:48 100 11/17/19 09:46 40 11/17/19 09:40 40 11/17/19 09:00 76 18 151/80 (103) 97 11/17/19 08:30 77 17 120/64 (82) 97 11/17/19 08:00 40 11/17/19 08:00 73 11/17/19 08:00 Mechanical Ventilator 11/17/19 08:00 73 18 102/54 (70) 97 11/17/19 07:40 80 18 40 11/17/19 07:30 75 18 114/55 (74) 96 11/17/19 07:00 18 92/56 Mechanical Ventilator 40 11/17/19 07:00 74 18 92/56 (68) 95 11/17/19 06:30 74 18 106/60 (75) 96 11/17/19 06:30 68 19 11/17/19 06:00 86 18 140/62 (88) 96 11/17/19 06:00 18 140/62 Mechanical Ventilator 40 11/17/19 05:43 81 150/81 11/17/19 05:30 85 18 150/81 (104) 99 11/17/19 05:00 18 122/63 Mechanical Ventilator 40 11/17/19 05:00 82 18 122/63 (82) 97 11/17/19 04:30 84 19 137/51 (79) 97 11/17/19 04:00 Mechanical Ventilator 11/17/19 04:00 40 11/17/19 04:00 18 132/62 Mechanical Ventilator 40 11/17/19 04:00 98.5 88 18 132/66 (88) 96 11/17/19 04:00 90 11/17/19 03:30 87 18 141/82 (101) 98 11/17/19 03:01 81 20 40 11/17/19 03:00 84 18 136/61 (86) 99 11/17/19 03:00 18 136/61 Mechanical Ventilator 40 11/17/19 02:30 88 18 139/78 (98) 98 11/17/19 02:00 19 142/67 Mechanical Ventilator 40 11/17/19 02:00 90 19 142/67 (92) 99 11/17/19 01:30 81 18 123/55 (77) 97 11/17/19 01:00 82 18 113/65 (81) 96 11/17/19 01:00 18 113/65 Mechanical Ventilator 40 11/17/19 00:30 79 18 114/66 (82) 96 11/17/19 00:00 40 11/17/19 00:00 18 119/55 Mechanical Ventilator 40 11/17/19 00:00 98.8 81 18 119/55 (76) 96 11/17/19 00:00 Mechanical Ventilator 11/17/19 00:00 85 11/16/19 23:30 78 18 100/55 (70) 96 11/16/19 23:06 86 18 40 11/16/19 23:00 18 115/65 Mechanical Ventilator 40 11/16/19 23:00 79 18 115/65 (82) 96 11/16/19 22:30 85 18 124/55 (78) 95 11/16/19 22:14 84 117/66 11/16/19 22:00 18 117/66 Mechanical Ventilator 40 11/16/19 22:00 84 18 117/66 (83) 96 11/16/19 21:30 81 18 123/75 (91) 96 Intake and Output 11/17/19 11/18/19 19:00 07:00 Intake Total 1286 ml 1822.5 ml Output Total 545 ml 480 ml Balance 741 ml 1342.5 ml Free Water 100 ml IV Total 846 ml 1102.5 ml Tube Feeding 440 ml 620 ml Output Urine Total 545 ml 480 ml # Bowel Movements 1 Labs Test 11/16/19 00:16 11/16/19 04:00 11/16/19 05:54 11/16/19 07:31 White Blood Count 22.3 K/UL (4.8-10.8) Red Blood Count 3.87 M/UL (4.20-5.40) Hemoglobin 10.2 G/DL (12.0-16.0) Hematocrit 35.1 % (37.0-47.0) Mean Corpuscular Volume 91 FL (80-99) Mean Corpuscular Hemoglobin 26.5 PG (27.0-31.0) Mean Corpuscular Hemoglobin Concent 29.2 G/DL (32.0-36.0) Red Cell Distribution Width 16.5 % (11.6-14.8) Platelet Count 240 K/UL (150-450) Mean Platelet Volume 7.1 FL (6.5-10.1) Neutrophils (%) (Auto) % (45.0-75.0) Lymphocytes (%) (Auto) % (20.0-45.0) Monocytes (%) (Auto) % (1.0-10.0) Eosinophils (%) (Auto) % (0.0-3.0) Basophils (%) (Auto) % (0.0-2.0) Differential Total Cells Counted 100 Neutrophils % (Manual) 88 % (45-75) Lymphocytes % (Manual) 7 % (20-45) Monocytes % (Manual) 4 % (1-10) Eosinophils % (Manual) 1 % (0-3) Basophils % (Manual) 0 % (0-2) Band Neutrophils 0 % (0-8) Platelet Estimate Adequate Platelet Morphology Normal Hypochromasia 1+ Anisocytosis 1+ Sodium Level 150 MMOL/L (136-145) Potassium Level 4.1 MMOL/L (3.5-5.1) Chloride Level 113 MMOL/L (98-107) Carbon Dioxide Level 35 MMOL/L (21-32) Anion Gap 2 mmol/L (5-15) Blood Urea Nitrogen 25 mg/dL (7-18) Creatinine 0.9 MG/DL (0.55-1.30) Estimat Glomerular Filtration Rate > 60 mL/min (>60) Glucose Level 204 MG/DL (74-106) Calcium Level 8.3 MG/DL (8.5-10.1) Total Bilirubin 1.1 MG/DL (0.2-1.0) Direct Bilirubin 0.9 MG/DL (0.0-0.3) Aspartate Amino Transf (AST/SGOT) 46 U/L (15-37) Alanine Aminotransferase (ALT/SGPT) 42 U/L (12-78) Alkaline Phosphatase 211 U/L (46-116) Total Protein 6.0 G/DL (6.4-8.2) Albumin 2.2 G/DL (3.4-5.0) Globulin 3.8 g/dL Albumin/Globulin Ratio 0.6 (1.0-2.7) Arterial Blood pH 7.354 (7.350-7.450) Arterial Blood Partial Pressure CO2 56.6 mmHg (35.0-45.0) Arterial Blood Partial Pressure O2 64.3 mmHg (75.0-100.0) Arterial Blood HCO3 30.8 mmol/L (22.0-26.0) Arterial Blood Oxygen Saturation 92.2 % (95-100) Arterial Blood Base Excess 4.2 (-2-2) Steve Test Positive Test 11/16/19 13:19 11/16/19 17:10 11/16/19 20:49 11/16/19 23:58 POC Whole Blood Glucose 268 MG/DL (74-106) Test 11/17/19 03:45 11/17/19 05:50 11/17/19 09:40 11/17/19 12:53 White Blood Count 20.9 K/UL (4.8-10.8) Red Blood Count 3.82 M/UL (4.20-5.40) Hemoglobin 10.2 G/DL (12.0-16.0) Hematocrit 34.3 % (37.0-47.0) Mean Corpuscular Volume 90 FL (80-99) Mean Corpuscular Hemoglobin 26.7 PG (27.0-31.0) Mean Corpuscular Hemoglobin Concent 29.7 G/DL (32.0-36.0) Red Cell Distribution Width 16.5 % (11.6-14.8) Platelet Count 234 K/UL (150-450) Mean Platelet Volume 7.0 FL (6.5-10.1) Neutrophils (%) (Auto) % (45.0-75.0) Lymphocytes (%) (Auto) % (20.0-45.0) Monocytes (%) (Auto) % (1.0-10.0) Eosinophils (%) (Auto) % (0.0-3.0) Basophils (%) (Auto) % (0.0-2.0) Differential Total Cells Counted 100 Neutrophils % (Manual) 95 % (45-75) Lymphocytes % (Manual) 3 % (20-45) Monocytes % (Manual) 2 % (1-10) Eosinophils % (Manual) 0 % (0-3) Basophils % (Manual) 0 % (0-2) Band Neutrophils 0 % (0-8) Platelet Estimate Adequate Platelet Morphology Normal Anisocytosis 1+ Sodium Level 145 MMOL/L (136-145) Potassium Level 4.2 MMOL/L (3.5-5.1) Chloride Level 110 MMOL/L (98-107) Carbon Dioxide Level 34 MMOL/L (21-32) Anion Gap 1 mmol/L (5-15) Blood Urea Nitrogen 26 mg/dL (7-18) Creatinine 0.9 MG/DL (0.55-1.30) Estimat Glomerular Filtration Rate > 60 mL/min (>60) Glucose Level 252 MG/DL (74-106) Calcium Level 8.5 MG/DL (8.5-10.1) Phosphorus Level 2.9 MG/DL (2.5-4.9) Magnesium Level 2.2 MG/DL (1.8-2.4) Total Bilirubin 1.2 MG/DL (0.2-1.0) Direct Bilirubin 0.8 MG/DL (0.0-0.3) Aspartate Amino Transf (AST/SGOT) 35 U/L (15-37) Alanine Aminotransferase (ALT/SGPT) 33 U/L (12-78) Alkaline Phosphatase 180 U/L (46-116) Total Protein 6.4 G/DL (6.4-8.2) Albumin 2.4 G/DL (3.4-5.0) Test 11/17/19 18:09 11/17/19 19:55 11/17/19 23:02 11/18/19 04:00 White Blood Count 18.8 K/UL (4.8-10.8) Red Blood Count 3.96 M/UL (4.20-5.40) Hemoglobin 10.5 G/DL (12.0-16.0) Hematocrit 35.7 % (37.0-47.0) Mean Corpuscular Volume 90 FL (80-99) Mean Corpuscular Hemoglobin 26.5 PG (27.0-31.0) Mean Corpuscular Hemoglobin Concent 29.4 G/DL (32.0-36.0) Red Cell Distribution Width 17.0 % (11.6-14.8) Platelet Count 269 K/UL (150-450) Mean Platelet Volume 7.2 FL (6.5-10.1) Neutrophils (%) (Auto) % (45.0-75.0) Lymphocytes (%) (Auto) % (20.0-45.0) Monocytes (%) (Auto) % (1.0-10.0) Eosinophils (%) (Auto) % (0.0-3.0) Basophils (%) (Auto) % (0.0-2.0) Differential Total Cells Counted 100 Neutrophils % (Manual) 87 % (45-75) Lymphocytes % (Manual) 5 % (20-45) Monocytes % (Manual) 7 % (1-10) Eosinophils % (Manual) 1 % (0-3) Basophils % (Manual) 0 % (0-2) Band Neutrophils 0 % (0-8) Platelet Estimate Adequate Platelet Morphology Normal Hypochromasia 1+ Anisocytosis 1+ Sodium Level 145 MMOL/L (136-145) Potassium Level 4.3 MMOL/L (3.5-5.1) Chloride Level 108 MMOL/L (98-107) Carbon Dioxide Level 35 MMOL/L (21-32) Anion Gap 2 mmol/L (5-15) Blood Urea Nitrogen 26 mg/dL (7-18) Creatinine 0.9 MG/DL (0.55-1.30) Estimat Glomerular Filtration Rate > 60 mL/min (>60) Glucose Level 178 MG/DL (74-106) Calcium Level 8.3 MG/DL (8.5-10.1) Test 11/18/19 05:12 11/18/19 09:31 11/18/19 20:33 11/18/19 20:37 Arterial Blood pH 7.386 (7.350-7.450) Arterial Blood Partial Pressure CO2 50.2 mmHg (35.0-45.0) Arterial Blood Partial Pressure O2 63.2 mmHg (75.0-100.0) Arterial Blood HCO3 29.4 mmol/L (22.0-26.0) Arterial Blood Oxygen Saturation 92.3 % (95-100) Arterial Blood Base Excess 3.5 (-2-2) Steve Test Positive POC Whole Blood Glucose 66 MG/DL (74-106) 65 MG/DL (74-106) Test 11/18/19 20:49 POC Whole Blood Glucose 162 MG/DL (74-106) Height (Feet): 5 Height (Inches): 3.00 Weight (Pounds): 292 Objective Physical Exam: Vitals: reviewed General: NAD HEENT: nc, at Neck: supple Chest: clear breath sounds on vent++ Cardiovascular: RRR, no s3, s4 Abdomen: soft, nontender, nd Extremities: no cce, normal range of motion Neuro: alert and oriented Ismael Fischer MD Nov 18, 2019 21:24
--- NOTE | 2019-11-18 21:28 | Diagnostic Imaging Report ---
EXAM: XR Chest, 1 View CLINICAL HISTORY: S/P LINE TECHNIQUE: Frontal view of the chest. COMPARISON: No relevant prior studies available. FINDINGS: Limitations: Technique. Lungs: Hypoventilatory lungs with diffuse bilateral alveolar and airspace opacities. Pleural space: No significant abnormality. No pneumothorax. Heart: Stable cardiomediastinal silhouette. Mediastinum: See above. Bones/joints: No acute osseous abnormality. Tubes, lines and devices: The terminus of the right PICC is not well visualized. Endotracheal tube tip projects approximately 5 cm above the caity. Esophagogastric tube traverses the diaphragm and extends off the field of view. Telemetry leads overlie the patient. Upper abdomen: Persistent elevation of the right hemidiaphragm. IMPRESSION: 1. The terminus of the right PICC is not well visualized. Recommend repeat radiograph with improved technique to confirm tube position prior to use. 2. Endotracheal tube tip projects approximately 5 cm above the caity. No pneumothorax. 3. Esophagogastric tube traverses the diaphragm and extends off the field of view. <MYCVCSECTION> Communications: 11/18/19 21:41 Verify Receipt with Nurse Verified receipt with NIKKO Sanchez
[2019-11-19] VITALS (51 sets, daily range): BP systolic 54–190; BP diastolic 22–127
[2019-11-19 05:25] LABS: HEMATOCRIT 35.6 % (37.0-47.0); HEMOGLOBIN 10.6 G/DL (12.0-16.0); MEAN CORPUSCULAR VOLUME 90 FL (80-99); PLATELET COUNT 257 K/UL (150-450); RED BLOOD COUNT 3.98 M/UL (4.20-5.40); RED CELL DISTRIBUTION WIDTH 16.7 % (11.6-14.8); WHITE BLOOD COUNT 16.7 K/UL (4.8-10.8)
[2019-11-19] MEDS: NovoLOG Insulin Flexpen SUBQ SCH ×3 (05:32→18:00)
[2019-11-19 05:44] LABS: ALANINE AMINOTRANSFERASE 33 U/L (12-78); ALBUMIN 1.8 G/DL (3.4-5.0); ALBUMIN/GLOBULIN RATIO 0.4 (1.0-2.7); ALKALINE PHOSPHATASE 165 U/L (46-116); ANION GAP -1 mmol/L (5-15); ASPARTATE AMINO TRANSFERASE 40 U/L (15-37); BILIRUBIN,TOTAL 1.1 MG/DL (0.2-1.0); BLOOD UREA NITROGEN 22 mg/dL (7-18); CARBON DIOXIDE 36 MMOL/L (21-32); CHLORIDE 110 MMOL/L (98-107); CREATININE 0.7 MG/DL (0.55-1.30); PHOSPHORUS 3.2 MG/DL (2.5-4.9); POTASSIUM 4.7 MMOL/L (3.5-5.1); SODIUM 145 MMOL/L (136-145)
[2019-11-19 05:51] LABS: BILIRUBIN,DIRECT 0.6 MG/DL (0.0-0.3)
--- NOTE | 2019-11-19 09:15 | Nephrology Progress Note ---
Assessment/Plan Problem List: (1) Electrolyte imbalance (2) Diabetes (3) 2019 novel coronavirus disease (COVID-19) (4) Respiratory failure Assessment 1. COVID-19 pneumonia. 2. Diabetes and hyperglycemia 3. Hypertension. 4. Hypoxic respiratory failure 5. Morbid obesity with BMI of 65.5 6. Nasal bleeding 7. Lactic acidosis 8. Hyperkalemia Plan November 18: Levemir stopped since IV fluid and dexamethasone are discontinued and patient blood sugar went down. Renal parameters are stable. Continues to be on ventilator. Previously: Renal parameters stable Weaning is being attempted patient's urine output is low. We will give a trial of albumin and Lasix, As needed Discussed with RN Stop IV to D5W 75 cc an hour Levemir 20 units subcu every 12 hours Kayexalate for high potassium as needed Monitor electrolytes and renal parameters Tight blood sugar control, long-acting insulin as needed Keep the blood pressure in check Per orders Subjective ROS Limited/Unobtainable: Yes Objective Objective Last 24 Hour Vital Signs Date Time Temp Pulse Resp B/P (MAP) Pulse Ox O2 Delivery O2 Flow Rate FiO2 11/19/19 09:10 100 11/19/19 08:09 91 128/63 11/19/19 08:00 92 11/19/19 08:00 40 11/19/19 08:00 21 128/63 Mechanical Ventilator 40 11/19/19 08:00 Mechanical Ventilator 11/19/19 08:00 98.6 82 18 128/63 (84) 97 11/19/19 07:27 84 18 40 11/19/19 07:00 73 18 109/89 (96) 100 11/19/19 07:00 18 109/89 Mechanical Ventilator 40 11/19/19 06:30 78 16 11/19/19 06:30 78 16 105/62 (76) 100 11/19/19 06:00 75 16 106/72 (83) 96 11/19/19 06:00 18 106/72 Mechanical Ventilator 40 11/19/19 05:30 76 14 125/76 (92) 96 11/19/19 05:00 79 14 133/73 (93) 100 11/19/19 05:00 14 133/73 Mechanical Ventilator 40 11/19/19 04:30 76 0 114/67 (83) 100 11/19/19 04:00 Mechanical Ventilator 11/19/19 04:00 74 7/30/20 04:00 40 11/19/19 04:00 12 100/51 Mechanical Ventilator 40 11/19/19 04:00 98.2 74 12 100/51 (67) 97 11/19/19 03:30 76 15 100/56 (71) 100 11/19/19 03:26 79 18 40 11/19/19 03:16 102 15 121/53 (75) 100 11/19/19 03:00 15 190/127 Mechanical Ventilator 40 11/19/19 03:00 102 15 190/127 (148) 91 11/19/19 02:30 77 13 144/84 (104) 100 11/19/19 02:00 69 18 111/69 (83) 100 11/19/19 02:00 18 111/69 Mechanical Ventilator 40 11/19/19 01:30 67 18 112/77 (89) 97 11/19/19 01:00 70 18 111/65 (80) 100 11/19/19 01:00 18 111/65 Mechanical Ventilator 40 11/19/19 00:30 67 17 130/54 (79) 100 11/19/19 00:00 40 11/19/19 00:00 98.0 68 15 124/77 (93) 96 11/19/19 00:00 15 124/77 Mechanical Ventilator 40 11/19/19 00:00 Mechanical Ventilator 11/18/19 23:30 69 20 125/69 (87) 100 11/18/19 23:30 64 18 40 11/18/19 23:22 60 11/18/19 23:00 65 17 87/59 (68) 100 11/18/19 23:00 17 87/59 Mechanical Ventilator 40 11/18/19 22:35 63 17 99/65 (76) 100 11/18/19 22:30 63 18 83/54 (64) 100 11/18/19 22:00 70 18 93/47 (62) 100 11/18/19 22:00 18 93/47 Mechanical Ventilator 40 11/18/19 21:30 88 18 159/74 (102) 100 11/18/19 21:05 84 150/67 11/18/19 21:00 75 18 150/67 (94) 97 11/18/19 21:00 18 150/67 Mechanical Ventilator 40 11/18/19 20:30 79 18 111/58 (75) 97 11/18/19 20:00 98.6 85 20 94/45 (61) 97 11/18/19 20:00 Mechanical Ventilator 11/18/19 20:00 40 11/18/19 20:00 20 94/45 Mechanical Ventilator 40 11/18/19 20:00 85 11/18/19 19:30 71 18 40 11/18/19 19:30 75 0 104/56 (72) 96 11/18/19 19:00 85 0 118/53 (74) 97 11/18/19 19:00 18 118/53 Mechanical Ventilator 40 11/18/19 18:30 87 19 150/69 (96) 98 11/18/19 18:00 87 16 133/66 (88) 98 11/18/19 18:00 18 133/66 Mechanical Ventilator 40 11/18/19 17:30 81 18 123/63 (83) 97 11/18/19 17:00 18 123/63 Mechanical Ventilator 40 11/18/19 17:00 76 18 100/58 (72) 98 11/18/19 16:30 73 18 103/50 (67) 100 11/18/19 16:00 Mechanical Ventilator 11/18/19 16:00 73 11/18/19 16:00 40 11/18/19 16:00 18 103/50 Mechanical Ventilator 40 11/18/19 16:00 98.0 80 18 94/52 (66) 96 11/18/19 15:44 72 18 40 11/18/19 15:30 75 18 94/55 (68) 99 11/18/19 15:00 18 138/75 Mechanical Ventilator 40 11/18/19 15:00 79 20 138/75 (96) 100 11/18/19 14:00 76 18 129/55 (79) 98 11/18/19 14:00 18 129/55 Mechanical Ventilator 40 11/18/19 13:30 77 18 83/50 (61) 100 11/18/19 13:00 77 19 114/76 (89) 100 11/18/19 13:00 18 83/50 Mechanical Ventilator 40 11/18/19 12:34 79 18 101/78 (86) 99 11/18/19 12:32 19 89/56 Mechanical Ventilator 60.0 40 11/18/19 12:30 77 18 81/42 (55) 97 11/18/19 12:00 40 11/18/19 12:00 19 89/56 Mechanical Ventilator 40 11/18/19 12:00 Mechanical Ventilator 11/18/19 12:00 99.2 81 18 89/56 (67) 97 11/18/19 11:49 82 11/18/19 11:30 84 18 99/60 (73) 96 11/18/19 11:00 100 22 126/90 (102) 93 11/18/19 11:00 18 126/90 Mechanical Ventilator 40 11/18/19 10:05 120 25 40 11/18/19 10:00 30 133/119 Mechanical Ventilator 40 11/18/19 10:00 106 21 133/90 (104) 97 11/18/19 09:30 93 Intake and Output 11/18/19 11/19/19 19:00 07:00 Intake Total 807 ml 744 ml Output Total 440 ml 490 ml Balance 367 ml 254 ml Free Water 60 ml 100 ml IV Total 467 ml 144 ml Tube Feeding 280 ml 400 ml Other 100 ml Output Urine Total 440 ml 490 ml # Bowel Movements 2 Laboratory Tests 11/18/19 09:31: Arterial Blood pH 7.386, Arterial Blood Partial Pressure CO2 50.2H, Arterial Blood Partial Pressure O2 63.2L, Arterial Blood HCO3 29.4H, Arterial Blood Oxygen Saturation 92.3L, Arterial Blood Base Excess 3.5H, Steve Test Positive 11/18/19 20:33: POC Whole Blood Glucose 66L 11/18/19 20:37: POC Whole Blood Glucose 65L 11/18/19 20:49: POC Whole Blood Glucose 162H 11/18/19 23:50: POC Whole Blood Glucose 68L 11/19/19 00:08: POC Whole Blood Glucose 73L 11/19/19 02:27: POC Whole Blood Glucose 86 11/19/19 04:45: White Blood Count 16.7H, Red Blood Count 3.98L, Hemoglobin 10.6L, Hematocrit 35.6L, Mean Corpuscular Volume 90, Mean Corpuscular Hemoglobin 26.6L, Mean Corpuscular Hemoglobin Concent 29.7L, Red Cell Distribution Width 16.7H, Platelet Count 257, Mean Platelet Volume 6.8, Neutrophils (%) (Auto) , Lymphocytes (%) (Auto) , Monocytes (%) (Auto) , Eosinophils (%) (Auto) , Basophils (%) (Auto) , Neutrophils % (Manual) [Pending], Lymphocytes % (Manual) [Pending], Platelet Estimate [Pending], Platelet Morphology [Pending], Sodium Level 145, Potassium Level 4.7, Chloride Level 110H, Carbon Dioxide Level 36H, Anion Gap -1L, Blood Urea Nitrogen 22H, Creatinine 0.7, Estimat Glomerular Filtration Rate > 60, Glucose Level 115H, Calcium Level 8.0L, Phosphorus Level 3.2, Magnesium Level 2.1, Total Bilirubin 1.1H, Direct Bilirubin 0.6H, Aspartate Amino Transf (AST/SGOT) 40H, Alanine Aminotransferase (ALT/SGPT) 33, Alkaline Phosphatase 165H, Total Protein 5.8L, Albumin 1.8L, Globulin 4.0, Albumin/Globulin Ratio 0.4L Height (Feet): 5 Height (Inches): 3.00 Weight (Pounds): 292 General Appearance: no apparent distress EENT: other - On vent Cardiovascular: other - Variable rate Respiratory/Chest: decreased breath sounds Abdomen: distended Papa Young MD Nov 19, 2019 09:15
--- NOTE | 2019-11-19 10:01 | General Progress Note ---
Assessment/Plan Problem List: (1) Respiratory failure ICD Codes: J96.90 - Respiratory failure, unspecified, unspecified whether with hypoxia or hypercapnia SNOMED: 430644835 (2) 2019 novel coronavirus disease (COVID-19) ICD Codes: U07.1 - COVID-19 SNOMED: 614264608 (3) Multifocal pneumonia ICD Codes: J18.9 - Pneumonia, unspecified organism SNOMED: 057359341 (4) Afib ICD Codes: I48.91 - Unspecified atrial fibrillation SNOMED: 49531653 (5) CHF (congestive heart failure) ICD Codes: I50.9 - Heart failure, unspecified SNOMED: 83795188 (6) Diabetes ICD Codes: E11.9 - Type 2 diabetes mellitus without complications SNOMED: 21295258 (7) Fluid overload ICD Codes: E87.70 - Fluid overload, unspecified SNOMED: 60909208 (8) Epistaxis ICD Codes: R04.0 - Epistaxis SNOMED: 436943768 Status: unchanged Assessment/Plan: fu H&H prn blood transfusion NGTF no residuals iv fluid per nephrology off all laxatives given diarrhea patient off Eliquis pending possible extubation will fu Subjective ROS Limited/Unobtainable: No Allergies: Coded Allergies: No Known Allergies (Unverified , 11/06/19) Objective Last 24 Hour Vital Signs Date Time Temp Pulse Resp B/P (MAP) Pulse Ox O2 Delivery O2 Flow Rate FiO2 11/19/19 09:11 40 11/19/19 09:10 100 11/19/19 09:00 76 13 115/67 (83) 100 11/19/19 08:30 86 18 116/72 (87) 97 11/19/19 08:09 91 128/63 11/19/19 08:00 92 11/19/19 08:00 40 11/19/19 08:00 21 128/63 Mechanical Ventilator 40 11/19/19 08:00 Mechanical Ventilator 11/19/19 08:00 98.6 82 18 128/63 (84) 97 11/19/19 07:27 84 18 40 11/19/19 07:00 73 18 109/89 (96) 100 11/19/19 07:00 18 109/89 Mechanical Ventilator 40 11/19/19 06:30 78 16 11/19/19 06:30 78 16 105/62 (76) 100 11/19/19 06:00 75 16 106/72 (83) 96 11/19/19 06:00 18 106/72 Mechanical Ventilator 40 11/19/19 05:30 76 14 125/76 (92) 96 11/19/19 05:00 79 14 133/73 (93) 100 11/19/19 05:00 14 133/73 Mechanical Ventilator 40 11/19/19 04:30 76 0 114/67 (83) 100 11/19/19 04:00 Mechanical Ventilator 11/19/19 04:00 74 11/19/19 04:00 40 11/19/19 04:00 12 100/51 Mechanical Ventilator 40 11/19/19 04:00 98.2 74 12 100/51 (67) 97 11/19/19 03:30 76 15 100/56 (71) 100 11/19/19 03:26 79 18 40 11/19/19 03:16 102 15 121/53 (75) 100 11/19/19 03:00 15 190/127 Mechanical Ventilator 40 11/19/19 03:00 102 15 190/127 (148) 91 11/19/19 02:30 77 13 144/84 (104) 100 11/19/19 02:00 69 18 111/69 (83) 100 11/19/19 02:00 18 111/69 Mechanical Ventilator 40 11/19/19 01:30 67 18 112/77 (89) 97 11/19/19 01:00 70 18 111/65 (80) 100 11/19/19 01:00 18 111/65 Mechanical Ventilator 40 11/19/19 00:30 67 17 130/54 (79) 100 11/19/19 00:00 40 11/19/19 00:00 98.0 68 15 124/77 (93) 96 11/19/19 00:00 15 124/77 Mechanical Ventilator 40 11/19/19 00:00 Mechanical Ventilator 11/18/19 23:30 69 20 125/69 (87) 100 11/18/19 23:30 64 18 40 11/18/19 23:22 60 11/18/19 23:00 65 17 87/59 (68) 100 11/18/19 23:00 17 87/59 Mechanical Ventilator 40 11/18/19 22:35 63 17 99/65 (76) 100 11/18/19 22:30 63 18 83/54 (64) 100 11/18/19 22:00 70 18 93/47 (62) 100 11/18/19 22:00 18 93/47 Mechanical Ventilator 40 11/18/19 21:30 88 18 159/74 (102) 100 11/18/19 21:05 84 150/67 11/18/19 21:00 75 18 150/67 (94) 97 11/18/19 21:00 18 150/67 Mechanical Ventilator 40 11/18/19 20:30 79 18 111/58 (75) 97 11/18/19 20:00 98.6 85 20 94/45 (61) 97 11/18/19 20:00 Mechanical Ventilator 11/18/19 20:00 40 11/18/19 20:00 20 94/45 Mechanical Ventilator 40 11/18/19 20:00 85 11/18/19 19:30 71 18 40 11/18/19 19:30 75 0 104/56 (72) 96 11/18/19 19:00 85 0 118/53 (74) 97 11/18/19 19:00 18 118/53 Mechanical Ventilator 40 11/18/19 18:30 87 19 150/69 (96) 98 11/18/19 18:00 87 16 133/66 (88) 98 11/18/19 18:00 18 133/66 Mechanical Ventilator 40 11/18/19 17:30 81 18 123/63 (83) 97 11/18/19 17:00 18 123/63 Mechanical Ventilator 40 11/18/19 17:00 76 18 100/58 (72) 98 11/18/19 16:30 73 18 103/50 (67) 100 11/18/19 16:00 Mechanical Ventilator 11/18/19 16:00 73 11/18/19 16:00 40 11/18/19 16:00 18 103/50 Mechanical Ventilator 40 11/18/19 16:00 98.0 80 18 94/52 (66) 96 11/18/19 15:44 72 18 40 11/18/19 15:30 75 18 94/55 (68) 99 11/18/19 15:00 18 138/75 Mechanical Ventilator 40 11/18/19 15:00 79 20 138/75 (96) 100 11/18/19 14:00 76 18 129/55 (79) 98 7/29/20 14:00 18 129/55 Mechanical Ventilator 40 11/18/19 13:30 77 18 83/50 (61) 100 11/18/19 13:00 77 19 114/76 (89) 100 11/18/19 13:00 18 83/50 Mechanical Ventilator 40 11/18/19 12:34 79 18 101/78 (86) 99 11/18/19 12:32 19 89/56 Mechanical Ventilator 60.0 40 11/18/19 12:30 77 18 81/42 (55) 97 11/18/19 12:00 40 11/18/19 12:00 19 89/56 Mechanical Ventilator 40 11/18/19 12:00 Mechanical Ventilator 11/18/19 12:00 99.2 81 18 89/56 (67) 97 11/18/19 11:49 82 11/18/19 11:30 84 18 99/60 (73) 96 11/18/19 11:00 100 22 126/90 (102) 93 11/18/19 11:00 18 126/90 Mechanical Ventilator 40 11/18/19 10:05 120 25 40 Intake and Output 11/18/19 11/19/19 19:00 07:00 Intake Total 807 ml 744 ml Output Total 440 ml 490 ml Balance 367 ml 254 ml Free Water 60 ml 100 ml IV Total 467 ml 144 ml Tube Feeding 280 ml 400 ml Other 100 ml Output Urine Total 440 ml 490 ml # Bowel Movements 2 Laboratory Tests 11/18/19 20:33: POC Whole Blood Glucose 66L 11/18/19 20:37: POC Whole Blood Glucose 65L 11/18/19 20:49: POC Whole Blood Glucose 162H 11/18/19 23:50: POC Whole Blood Glucose 68L 11/19/19 00:08: POC Whole Blood Glucose 73L 11/19/19 02:27: POC Whole Blood Glucose 86 11/19/19 04:45: White Blood Count 16.7H, Red Blood Count 3.98L, Hemoglobin 10.6L, Hematocrit 35.6L, Mean Corpuscular Volume 90, Mean Corpuscular Hemoglobin 26.6L, Mean Corpuscular Hemoglobin Concent 29.7L, Red Cell Distribution Width 16.7H, Platelet Count 257, Mean Platelet Volume 6.8, Neutrophils (%) (Auto) , Lymphocytes (%) (Auto) , Monocytes (%) (Auto) , Eosinophils (%) (Auto) , Basophils (%) (Auto) , Differential Total Cells Counted 100, Neutrophils % ( Manual) 92H, Lymphocytes % (Manual) 5L, Monocytes % (Manual) 3, Eosinophils % ( Manual) 0, Basophils % (Manual) 0, Band Neutrophils 0, Platelet Estimate Adequate, Platelet Morphology Normal, Polychromasia 1+, Hypochromasia 1+, Anisocytosis 1+, Sodium Level 145, Potassium Level 4.7, Chloride Level 110H, Carbon Dioxide Level 36H, Anion Gap -1L, Blood Urea Nitrogen 22H, Creatinine 0.7 , Estimat Glomerular Filtration Rate > 60, Glucose Level 115H, Calcium Level 8.0L, Phosphorus Level 3.2, Magnesium Level 2.1, Total Bilirubin 1.1H, Direct Bilirubin 0.6H, Aspartate Amino Transf (AST/SGOT) 40H, Alanine Aminotransferase (ALT/SGPT) 33, Alkaline Phosphatase 165H, Total Protein 5.8L, Albumin 1.8L, Globulin 4.0, Albumin/Globulin Ratio 0.4L Height (Feet): 5 Height (Inches): 3.00 Weight (Pounds): 292 General Appearance: lethargic EENT: normal ENT inspection Neck: normal alignment Cardiovascular: normal rate Respiratory/Chest: decreased breath sounds Abdomen: hypoactive bowel sounds Extremities: non-tender Case Patel MD Nov 19, 2019 10:01
--- NOTE | 2019-11-19 10:16 | Pulmonology Progress Note ---
Subjective ROS Limited/Unobtainable: No Interval Events: Intubated; weaning Constitutional: Denies: fever HEENT: Repors: no symptoms Respiratory: Reports: dry cough, shortness of breath Cardiovascular: Reports: no symptoms Gastrointestinal/Abdominal: Reports: no symptoms Allergies: Coded Allergies: No Known Allergies (Unverified , 11/06/19) All Systems: reviewed and negative except above Objective Last 24 Hour Vital Signs Date Time Temp Pulse Resp B/P (MAP) Pulse Ox O2 Delivery O2 Flow Rate FiO2 11/19/19 10:00 91 25 162/81 (108) 82 11/19/19 09:30 91 21 115/82 (93) 98 11/19/19 09:11 40 11/19/19 09:10 100 11/19/19 09:00 76 13 115/67 (83) 100 11/19/19 08:30 86 18 116/72 (87) 97 11/19/19 08:09 91 128/63 11/19/19 08:00 92 11/19/19 08:00 40 11/19/19 08:00 21 128/63 Mechanical Ventilator 40 11/19/19 08:00 Mechanical Ventilator 11/19/19 08:00 98.6 82 18 128/63 (84) 97 11/19/19 07:27 84 18 40 11/19/19 07:00 73 18 109/89 (96) 100 11/19/19 07:00 18 109/89 Mechanical Ventilator 40 11/19/19 06:30 78 16 11/19/19 06:30 78 16 105/62 (76) 100 11/19/19 06:00 75 16 106/72 (83) 96 11/19/19 06:00 18 106/72 Mechanical Ventilator 40 11/19/19 05:30 76 14 125/76 (92) 96 11/19/19 05:00 79 14 133/73 (93) 100 11/19/19 05:00 14 133/73 Mechanical Ventilator 40 11/19/19 04:30 76 0 114/67 (83) 100 11/19/19 04:00 Mechanical Ventilator 11/19/19 04:00 74 11/19/19 04:00 40 11/19/19 04:00 12 100/51 Mechanical Ventilator 40 11/19/19 04:00 98.2 74 12 100/51 (67) 97 11/19/19 03:30 76 15 100/56 (71) 100 11/19/19 03:26 79 18 40 11/19/19 03:16 102 15 121/53 (75) 100 11/19/19 03:00 15 190/127 Mechanical Ventilator 40 11/19/19 03:00 102 15 190/127 (148) 91 11/19/19 02:30 77 13 144/84 (104) 100 11/19/19 02:00 69 18 111/69 (83) 100 11/19/19 02:00 18 111/69 Mechanical Ventilator 40 11/19/19 01:30 67 18 112/77 (89) 97 11/19/19 01:00 70 18 111/65 (80) 100 11/19/19 01:00 18 111/65 Mechanical Ventilator 40 11/19/19 00:30 67 17 130/54 (79) 100 11/19/19 00:00 40 11/19/19 00:00 98.0 68 15 124/77 (93) 96 11/19/19 00:00 15 124/77 Mechanical Ventilator 40 11/19/19 00:00 Mechanical Ventilator 11/18/19 23:30 69 20 125/69 (87) 100 11/18/19 23:30 64 18 40 11/18/19 23:22 60 11/18/19 23:00 65 17 87/59 (68) 100 11/18/19 23:00 17 87/59 Mechanical Ventilator 40 11/18/19 22:35 63 17 99/65 (76) 100 11/18/19 22:30 63 18 83/54 (64) 100 11/18/19 22:00 70 18 93/47 (62) 100 11/18/19 22:00 18 93/47 Mechanical Ventilator 40 11/18/19 21:30 88 18 159/74 (102) 100 11/18/19 21:05 84 150/67 11/18/19 21:00 75 18 150/67 (94) 97 11/18/19 21:00 18 150/67 Mechanical Ventilator 40 11/18/19 20:30 79 18 111/58 (75) 97 11/18/19 20:00 98.6 85 20 94/45 (61) 97 11/18/19 20:00 Mechanical Ventilator 11/18/19 20:00 40 11/18/19 20:00 20 94/45 Mechanical Ventilator 40 11/18/19 20:00 85 11/18/19 19:30 71 18 40 11/18/19 19:30 75 0 104/56 (72) 96 11/18/19 19:00 85 0 118/53 (74) 97 11/18/19 19:00 18 118/53 Mechanical Ventilator 40 11/18/19 18:30 87 19 150/69 (96) 98 11/18/19 18:00 87 16 133/66 (88) 98 11/18/19 18:00 18 133/66 Mechanical Ventilator 40 11/18/19 17:30 81 18 123/63 (83) 97 11/18/19 17:00 18 123/63 Mechanical Ventilator 40 11/18/19 17:00 76 18 100/58 (72) 98 11/18/19 16:30 73 18 103/50 (67) 100 11/18/19 16:00 Mechanical Ventilator 11/18/19 16:00 73 11/18/19 16:00 40 11/18/19 16:00 18 103/50 Mechanical Ventilator 40 11/18/19 16:00 98.0 80 18 94/52 (66) 96 11/18/19 15:44 72 18 40 11/18/19 15:30 75 18 94/55 (68) 99 11/18/19 15:00 18 138/75 Mechanical Ventilator 40 11/18/19 15:00 79 20 138/75 (96) 100 11/18/19 14:00 76 18 129/55 (79) 98 11/18/19 14:00 18 129/55 Mechanical Ventilator 40 11/18/19 13:30 77 18 83/50 (61) 100 11/18/19 13:00 77 19 114/76 (89) 100 11/18/19 13:00 18 83/50 Mechanical Ventilator 40 11/18/19 12:34 79 18 101/78 (86) 99 11/18/19 12:32 19 89/56 Mechanical Ventilator 60.0 40 11/18/19 12:30 77 18 81/42 (55) 97 11/18/19 12:00 40 11/18/19 12:00 19 89/56 Mechanical Ventilator 40 11/18/19 12:00 Mechanical Ventilator 11/18/19 12:00 99.2 81 18 89/56 (67) 97 11/18/19 11:49 82 11/18/19 11:30 84 18 99/60 (73) 96 11/18/19 11:00 100 22 126/90 (102) 93 11/18/19 11:00 18 126/90 Mechanical Ventilator 40 Intake and Output 11/18/19 11/19/19 19:00 07:00 Intake Total 807 ml 744 ml Output Total 440 ml 490 ml Balance 367 ml 254 ml Free Water 60 ml 100 ml IV Total 467 ml 144 ml Tube Feeding 280 ml 400 ml Other 100 ml Output Urine Total 440 ml 490 ml # Bowel Movements 2 General Appearance: no acute distress HEENT: normocephalic Respiratory: decreased breath sounds Cardiovascular: normal peripheral pulses Abdomen: normal bowel sounds Extremities: no cyanosis Laboratory Tests 11/18/19 20:33: POC Whole Blood Glucose 66L 11/18/19 20:37: POC Whole Blood Glucose 65L 11/18/19 20:49: POC Whole Blood Glucose 162H 11/18/19 23:50: POC Whole Blood Glucose 68L 11/19/19 00:08: POC Whole Blood Glucose 73L 11/19/19 02:27: POC Whole Blood Glucose 86 11/19/19 04:45: White Blood Count 16.7H, Red Blood Count 3.98L, Hemoglobin 10.6L, Hematocrit 35.6L, Mean Corpuscular Volume 90, Mean Corpuscular Hemoglobin 26.6L, Mean Corpuscular Hemoglobin Concent 29.7L, Red Cell Distribution Width 16.7H, Platelet Count 257, Mean Platelet Volume 6.8, Neutrophils (%) (Auto) , Lymphocytes (%) (Auto) , Monocytes (%) (Auto) , Eosinophils (%) (Auto) , Basophils (%) (Auto) , Differential Total Cells Counted 100, Neutrophils % ( Manual) 92H, Lymphocytes % (Manual) 5L, Monocytes % (Manual) 3, Eosinophils % ( Manual) 0, Basophils % (Manual) 0, Band Neutrophils 0, Platelet Estimate Adequate, Platelet Morphology Normal, Polychromasia 1+, Hypochromasia 1+, Anisocytosis 1+, Sodium Level 145, Potassium Level 4.7, Chloride Level 110H, Carbon Dioxide Level 36H, Anion Gap -1L, Blood Urea Nitrogen 22H, Creatinine 0.7 , Estimat Glomerular Filtration Rate > 60, Glucose Level 115H, Calcium Level 8.0L, Phosphorus Level 3.2, Magnesium Level 2.1, Total Bilirubin 1.1H, Direct Bilirubin 0.6H, Aspartate Amino Transf (AST/SGOT) 40H, Alanine Aminotransferase (ALT/SGPT) 33, Alkaline Phosphatase 165H, Total Protein 5.8L, Albumin 1.8L, Globulin 4.0, Albumin/Globulin Ratio 0.4L Current Medications Medications (Trade) Dose Ordered Sig/Robyn Route PRN Reason Start Time Stop Time Status Last Admin Dose Admin Acetaminophen (Tylenol) 650 mg Q6H PRN NG Temp >100.5 11/12/19 00:15 12/12/19 00:14 11/16/19 09:02 Chlorhexidine Gluconate (Miya-Hex 2%) 1 applic DAILY@2000 TOPIC 11/08/19 21:30 02/06/20 21:29 11/18/19 20:00 Clonidine HCl (Catapres Tab) 0.1 mg Q4H PRN NG For High Blood Pressure 11/13/19 17:00 02/09/20 10:59 Dextrose (Dextrose 50%) 25 ml Q30M PRN IV Hypoglycemia 11/08/19 12:30 02/05/20 02:59 11/18/19 23:54 Dextrose (Dextrose 50%) 50 ml Q30M PRN IV Hypoglycemia 11/08/19 12:30 02/05/20 02:59 Famotidine (Pepcid I.v.) 20 mg Q12HR IVP 11/08/19 15:30 12/08/19 15:29 11/19/19 08:08 Fentanyl Citrate 250 ml @ 0 mls/hr Q24H IV 11/08/19 12:29 02/06/20 12:28 11/18/19 12:32 Folic Acid (Folate) 2 mg DAILY GT 11/15/19 09:00 12/15/19 08:59 11/19/19 08:09 Insulin Aspart (NovoLOG) EVERY 6 HOURS SUBQ 11/15/19 12:00 02/11/20 20:59 11/18/19 05:17 Lorazepam (Ativan 2mg/ml 1ml) 1 mg Q4H PRN IV For Anxiety 11/14/19 10:00 11/21/19 09:59 11/16/19 09:00 Metoprolol Tartrate (Lopressor) 50 mg Q12HR NG 11/17/19 21:00 02/15/20 20:59 11/19/19 08:09 Assessment/Plan Assessment/Plan IMPRESSION: 1. COVID-19 pneumonia. 2. Diabetes mellitus and hypertension. 3. Lactic acidemia. 4. Epistaxis 5. Respiratory failure DISCUSSION: Careful and close monitoring. Continue medications Hope to extubate today Off fentanyl I will follow carefully. Lakeisha Zavaleta Omar Syed MD Nov 19, 2019 10:16
--- NOTE | 2019-11-19 10:31 | Infectious Diseases Prog Note ---
Assessment/Plan Assessment/Plan A: 1. COVID-19 pneumonia. 2. Diabetes with hyper 3. Hypertension. 4. Hypoxic respiratory failure 5. Morbid obesity 6. Nasal bleeding 7. Lactic acidosis 8. Hyperkalemia 9. Leukocytosis improving PLAN: 1. Finished Remdesivir & Dexamethasone course 2. Continue isolation. Subjective ROS Limited/Unobtainable: Yes Constitutional: Denies: fever Respiratory: Reports: other - on weaning process Allergies: Coded Allergies: No Known Allergies (Unverified , 11/06/19) Objective Last 24 Hour Vital Signs Date Time Temp Pulse Resp B/P (MAP) Pulse Ox O2 Delivery O2 Flow Rate FiO2 11/19/19 10:00 91 25 162/81 (108) 82 11/19/19 09:30 91 21 115/82 (93) 98 11/19/19 09:11 40 11/19/19 09:10 100 11/19/19 09:00 76 13 115/67 (83) 100 11/19/19 08:30 86 18 116/72 (87) 97 11/19/19 08:09 91 128/63 11/19/19 08:00 92 11/19/19 08:00 40 11/19/19 08:00 21 128/63 Mechanical Ventilator 40 11/19/19 08:00 Mechanical Ventilator 11/19/19 08:00 98.6 82 18 128/63 (84) 97 11/19/19 07:27 84 18 40 11/19/19 07:00 73 18 109/89 (96) 100 11/19/19 07:00 18 109/89 Mechanical Ventilator 40 11/19/19 06:30 78 16 11/19/19 06:30 78 16 105/62 (76) 100 11/19/19 06:00 75 16 106/72 (83) 96 11/19/19 06:00 18 106/72 Mechanical Ventilator 40 11/19/19 05:30 76 14 125/76 (92) 96 11/19/19 05:00 79 14 133/73 (93) 100 11/19/19 05:00 14 133/73 Mechanical Ventilator 40 11/19/19 04:30 76 0 114/67 (83) 100 11/19/19 04:00 Mechanical Ventilator 11/19/19 04:00 74 11/19/19 04:00 40 11/19/19 04:00 12 100/51 Mechanical Ventilator 40 11/19/19 04:00 98.2 74 12 100/51 (67) 97 11/19/19 03:30 76 15 100/56 (71) 100 11/19/19 03:26 79 18 40 11/19/19 03:16 102 15 121/53 (75) 100 11/19/19 03:00 15 190/127 Mechanical Ventilator 40 11/19/19 03:00 102 15 190/127 (148) 91 11/19/19 02:30 77 13 144/84 (104) 100 11/19/19 02:00 69 18 111/69 (83) 100 11/19/19 02:00 18 111/69 Mechanical Ventilator 40 11/19/19 01:30 67 18 112/77 (89) 97 11/19/19 01:00 70 18 111/65 (80) 100 11/19/19 01:00 18 111/65 Mechanical Ventilator 40 11/19/19 00:30 67 17 130/54 (79) 100 11/19/19 00:00 40 11/19/19 00:00 98.0 68 15 124/77 (93) 96 11/19/19 00:00 15 124/77 Mechanical Ventilator 40 11/19/19 00:00 Mechanical Ventilator 11/18/19 23:30 69 20 125/69 (87) 100 11/18/19 23:30 64 18 40 11/18/19 23:22 60 11/18/19 23:00 65 17 87/59 (68) 100 11/18/19 23:00 17 87/59 Mechanical Ventilator 40 11/18/19 22:35 63 17 99/65 (76) 100 11/18/19 22:30 63 18 83/54 (64) 100 11/18/19 22:00 70 18 93/47 (62) 100 11/18/19 22:00 18 93/47 Mechanical Ventilator 40 11/18/19 21:30 88 18 159/74 (102) 100 11/18/19 21:05 84 150/67 11/18/19 21:00 75 18 150/67 (94) 97 11/18/19 21:00 18 150/67 Mechanical Ventilator 40 11/18/19 20:30 79 18 111/58 (75) 97 11/18/19 20:00 98.6 85 20 94/45 (61) 97 11/18/19 20:00 Mechanical Ventilator 11/18/19 20:00 40 11/18/19 20:00 20 94/45 Mechanical Ventilator 40 11/18/19 20:00 85 11/18/19 19:30 71 18 40 11/18/19 19:30 75 0 104/56 (72) 96 11/18/19 19:00 85 0 118/53 (74) 97 11/18/19 19:00 18 118/53 Mechanical Ventilator 40 11/18/19 18:30 87 19 150/69 (96) 98 11/18/19 18:00 87 16 133/66 (88) 98 11/18/19 18:00 18 133/66 Mechanical Ventilator 40 11/18/19 17:30 81 18 123/63 (83) 97 11/18/19 17:00 18 123/63 Mechanical Ventilator 40 11/18/19 17:00 76 18 100/58 (72) 98 11/18/19 16:30 73 18 103/50 (67) 100 11/18/19 16:00 Mechanical Ventilator 11/18/19 16:00 73 11/18/19 16:00 40 11/18/19 16:00 18 103/50 Mechanical Ventilator 40 11/18/19 16:00 98.0 80 18 94/52 (66) 96 11/18/19 15:44 72 18 40 11/18/19 15:30 75 18 94/55 (68) 99 11/18/19 15:00 18 138/75 Mechanical Ventilator 40 11/18/19 15:00 79 20 138/75 (96) 100 11/18/19 14:00 76 18 129/55 (79) 98 11/18/19 14:00 18 129/55 Mechanical Ventilator 40 11/18/19 13:30 77 18 83/50 (61) 100 11/18/19 13:00 77 19 114/76 (89) 100 11/18/19 13:00 18 83/50 Mechanical Ventilator 40 11/18/19 12:34 79 18 101/78 (86) 99 11/18/19 12:32 19 89/56 Mechanical Ventilator 60.0 40 11/18/19 12:30 77 18 81/42 (55) 97 11/18/19 12:00 40 11/18/19 12:00 19 89/56 Mechanical Ventilator 40 11/18/19 12:00 Mechanical Ventilator 11/18/19 12:00 99.2 81 18 89/56 (67) 97 11/18/19 11:49 82 11/18/19 11:30 84 18 99/60 (73) 96 11/18/19 11:00 100 22 126/90 (102) 93 11/18/19 11:00 18 126/90 Mechanical Ventilator 40 Height (Feet): 5 Height (Inches): 3.00 Weight (Pounds): 292 General Appearance: other - obese HEENT: mucous membranes moist, other - orally intubated Respiratory/Chest: other - on ventilator Cardiovascular: normal rate Abdomen: soft, non tender, splenomegaly - tube, other Extremities: other - edema Neurologic/Psychiatric: alert Laboratory Tests Test 11/18/19 20:33 11/18/19 20:37 11/18/19 20:49 11/18/19 23:50 POC Whole Blood Glucose 66 MG/DL (74-106) L 65 MG/DL (74-106) L 162 MG/DL (74-106) H 68 MG/DL (74-106) L Test 11/19/19 00:08 11/19/19 02:27 11/19/19 04:45 11/19/19 10:02 POC Whole Blood Glucose 73 MG/DL (74-106) L 86 MG/DL (74-106) White Blood Count 16.7 K/UL (4.8-10.8) H Red Blood Count 3.98 M/UL (4.20-5.40) L Hemoglobin 10.6 G/DL (12.0-16.0) L Hematocrit 35.6 % (37.0-47.0) L Mean Corpuscular Volume 90 FL (80-99) Mean Corpuscular Hemoglobin 26.6 PG (27.0-31.0) L Mean Corpuscular Hemoglobin Concent 29.7 G/DL (32.0-36.0) L Red Cell Distribution Width 16.7 % (11.6-14.8) H Platelet Count 257 K/UL (150-450) Mean Platelet Volume 6.8 FL (6.5-10.1) Neutrophils (%) (Auto) % (45.0-75.0) Lymphocytes (%) (Auto) % (20.0-45.0) Monocytes (%) (Auto) % (1.0-10.0) Eosinophils (%) (Auto) % (0.0-3.0) Basophils (%) (Auto) % (0.0-2.0) Differential Total Cells Counted 100 Neutrophils % (Manual) 92 % (45-75) H Lymphocytes % (Manual) 5 % (20-45) L Monocytes % (Manual) 3 % (1-10) Eosinophils % (Manual) 0 % (0-3) Basophils % (Manual) 0 % (0-2) Band Neutrophils 0 % (0-8) Platelet Estimate Adequate Platelet Morphology Normal Polychromasia 1+ Hypochromasia 1+ Anisocytosis 1+ Sodium Level 145 MMOL/L (136-145) Potassium Level 4.7 MMOL/L (3.5-5.1) Chloride Level 110 MMOL/L (98-107) H Carbon Dioxide Level 36 MMOL/L (21-32) H Anion Gap -1 mmol/L (5-15) L Blood Urea Nitrogen 22 mg/dL (7-18) H Creatinine 0.7 MG/DL (0.55-1.30) Estimat Glomerular Filtration Rate > 60 mL/min (>60) Glucose Level 115 MG/DL (74-106) H Calcium Level 8.0 MG/DL (8.5-10.1) L Phosphorus Level 3.2 MG/DL (2.5-4.9) Magnesium Level 2.1 MG/DL (1.8-2.4) Total Bilirubin 1.1 MG/DL (0.2-1.0) H Direct Bilirubin 0.6 MG/DL (0.0-0.3) H Aspartate Amino Transf (AST/SGOT) 40 U/L (15-37) H Alanine Aminotransferase (ALT/SGPT) 33 U/L (12-78) Alkaline Phosphatase 165 U/L (46-116) H Total Protein 5.8 G/DL (6.4-8.2) L Albumin 1.8 G/DL (3.4-5.0) L Globulin 4.0 g/dL Albumin/Globulin Ratio 0.4 (1.0-2.7) L Arterial Blood pH 7.431 (7.350-7.450) Arterial Blood Partial Pressure CO2 47.4 mmHg (35.0-45.0) H Arterial Blood Partial Pressure O2 93.6 mmHg (75.0-100.0) Arterial Blood HCO3 30.8 mmol/L (22.0-26.0) H Arterial Blood Oxygen Saturation 97.3 % (95-100) Arterial Blood Base Excess 5.7 (-2-2) H Steve Test Positive Current Medications Medications (Trade) Dose Ordered Sig/Robyn Route PRN Reason Start Time Stop Time Status Last Admin Dose Admin Acetaminophen (Tylenol) 650 mg Q6H PRN NG Temp >100.5 11/12/19 00:15 12/12/19 00:14 11/16/19 09:02 Chlorhexidine Gluconate (Miya-Hex 2%) 1 applic DAILY@2000 TOPIC 11/08/19 21:30 02/06/20 21:29 11/18/19 20:00 Clonidine HCl (Catapres Tab) 0.1 mg Q4H PRN NG For High Blood Pressure 11/13/19 17:00 02/09/20 10:59 Dextrose (Dextrose 50%) 25 ml Q30M PRN IV Hypoglycemia 11/08/19 12:30 02/05/20 02:59 11/18/19 23:54 Dextrose (Dextrose 50%) 50 ml Q30M PRN IV Hypoglycemia 11/08/19 12:30 02/05/20 02:59 Famotidine (Pepcid I.v.) 20 mg Q12HR IVP 11/08/19 15:30 12/08/19 15:29 11/19/19 08:08 Fentanyl Citrate 250 ml @ 0 mls/hr Q24H IV 11/08/19 12:29 02/06/20 12:28 11/18/19 12:32 Folic Acid (Folate) 2 mg DAILY GT 11/15/19 09:00 12/15/19 08:59 11/19/19 08:09 Insulin Aspart (NovoLOG) EVERY 6 HOURS SUBQ 11/15/19 12:00 02/11/20 20:59 11/18/19 05:17 Lorazepam (Ativan 2mg/ml 1ml) 1 mg Q4H PRN IV For Anxiety 11/14/19 10:00 11/21/19 09:59 11/16/19 09:00 Metoprolol Tartrate (Lopressor) 50 mg Q12HR NG 11/17/19 21:00 02/15/20 20:59 11/19/19 08:09 Jose Hernandez MD Nov 19, 2019 10:31
--- NOTE | 2019-11-19 10:38 | Cardiac Electrophysiology PN ---
Assessment/Plan Assessment/Plan 1. Atrial fibrillation. On metoprolol 50 bid. Off Eliquis in view of hematuria and black stool EF 55% on echo. 2. HTN, Lopressor 50 bid 3. COVID positive pneumonia. On Remdesevir and dexamethasone. 4. Diabetes, on insulin. 5. Respiratory failure on the Vent. 6. S/P Massive nasal bleed. 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 Hematuria and black stool improved off anticoagulation. In atrial fib rate controlled on Lopressor 25 bid. Objective Last 24 Hour Vital Signs Date Time Temp Pulse Resp B/P (MAP) Pulse Ox O2 Delivery O2 Flow Rate FiO2 11/19/19 10:00 91 25 162/81 (108) 82 11/19/19 09:30 91 21 115/82 (93) 98 11/19/19 09:11 40 11/19/19 09:10 100 11/19/19 09:00 76 13 115/67 (83) 100 11/19/19 08:30 86 18 116/72 (87) 97 11/19/19 08:09 91 128/63 11/19/19 08:00 92 11/19/19 08:00 40 11/19/19 08:00 21 128/63 Mechanical Ventilator 40 11/19/19 08:00 Mechanical Ventilator 11/19/19 08:00 98.6 82 18 128/63 (84) 97 11/19/19 07:27 84 18 40 11/19/19 07:00 73 18 109/89 (96) 100 11/19/19 07:00 18 109/89 Mechanical Ventilator 40 11/19/19 06:30 78 16 11/19/19 06:30 78 16 105/62 (76) 100 11/19/19 06:00 75 16 106/72 (83) 96 11/19/19 06:00 18 106/72 Mechanical Ventilator 40 11/19/19 05:30 76 14 125/76 (92) 96 11/19/19 05:00 79 14 133/73 (93) 100 11/19/19 05:00 14 133/73 Mechanical Ventilator 40 11/19/19 04:30 76 0 114/67 (83) 100 11/19/19 04:00 Mechanical Ventilator 11/19/19 04:00 74 11/19/19 04:00 40 11/19/19 04:00 12 100/51 Mechanical Ventilator 40 11/19/19 04:00 98.2 74 12 100/51 (67) 97 11/19/19 03:30 76 15 100/56 (71) 100 11/19/19 03:26 79 18 40 11/19/19 03:16 102 15 121/53 (75) 100 11/19/19 03:00 15 190/127 Mechanical Ventilator 40 11/19/19 03:00 102 15 190/127 (148) 91 11/19/19 02:30 77 13 144/84 (104) 100 11/19/19 02:00 69 18 111/69 (83) 100 11/19/19 02:00 18 111/69 Mechanical Ventilator 40 11/19/19 01:30 67 18 112/77 (89) 97 11/19/19 01:00 70 18 111/65 (80) 100 11/19/19 01:00 18 111/65 Mechanical Ventilator 40 11/19/19 00:30 67 17 130/54 (79) 100 11/19/19 00:00 40 11/19/19 00:00 98.0 68 15 124/77 (93) 96 11/19/19 00:00 15 124/77 Mechanical Ventilator 40 11/19/19 00:00 Mechanical Ventilator 11/18/19 23:30 69 20 125/69 (87) 100 11/18/19 23:30 64 18 40 11/18/19 23:22 60 11/18/19 23:00 65 17 87/59 (68) 100 11/18/19 23:00 17 87/59 Mechanical Ventilator 40 11/18/19 22:35 63 17 99/65 (76) 100 11/18/19 22:30 63 18 83/54 (64) 100 11/18/19 22:00 70 18 93/47 (62) 100 11/18/19 22:00 18 93/47 Mechanical Ventilator 40 11/18/19 21:30 88 18 159/74 (102) 100 11/18/19 21:05 84 150/67 11/18/19 21:00 75 18 150/67 (94) 97 11/18/19 21:00 18 150/67 Mechanical Ventilator 40 11/18/19 20:30 79 18 111/58 (75) 97 11/18/19 20:00 98.6 85 20 94/45 (61) 97 11/18/19 20:00 Mechanical Ventilator 11/18/19 20:00 40 11/18/19 20:00 20 94/45 Mechanical Ventilator 40 11/18/19 20:00 85 11/18/19 19:30 71 18 40 11/18/19 19:30 75 0 104/56 (72) 96 11/18/19 19:00 85 0 118/53 (74) 97 11/18/19 19:00 18 118/53 Mechanical Ventilator 40 11/18/19 18:30 87 19 150/69 (96) 98 11/18/19 18:00 87 16 133/66 (88) 98 11/18/19 18:00 18 133/66 Mechanical Ventilator 40 11/18/19 17:30 81 18 123/63 (83) 97 11/18/19 17:00 18 123/63 Mechanical Ventilator 40 11/18/19 17:00 76 18 100/58 (72) 98 11/18/19 16:30 73 18 103/50 (67) 100 11/18/19 16:00 Mechanical Ventilator 11/18/19 16:00 73 11/18/19 16:00 40 11/18/19 16:00 18 103/50 Mechanical Ventilator 40 11/18/19 16:00 98.0 80 18 94/52 (66) 96 11/18/19 15:44 72 18 40 11/18/19 15:30 75 18 94/55 (68) 99 11/18/19 15:00 18 138/75 Mechanical Ventilator 40 11/18/19 15:00 79 20 138/75 (96) 100 11/18/19 14:00 76 18 129/55 (79) 98 11/18/19 14:00 18 129/55 Mechanical Ventilator 40 11/18/19 13:30 77 18 83/50 (61) 100 11/18/19 13:00 77 19 114/76 (89) 100 11/18/19 13:00 18 83/50 Mechanical Ventilator 40 11/18/19 12:34 79 18 101/78 (86) 99 11/18/19 12:32 19 89/56 Mechanical Ventilator 60.0 40 11/18/19 12:30 77 18 81/42 (55) 97 11/18/19 12:00 40 11/18/19 12:00 19 89/56 Mechanical Ventilator 40 11/18/19 12:00 Mechanical Ventilator 11/18/19 12:00 99.2 81 18 89/56 (67) 97 11/18/19 11:49 82 11/18/19 11:30 84 18 99/60 (73) 96 11/18/19 11:00 100 22 126/90 (102) 93 11/18/19 11:00 18 126/90 Mechanical Ventilator 40 Intake and Output 11/18/19 11/19/19 19:00 07:00 Intake Total 807 ml 744 ml Output Total 440 ml 490 ml Balance 367 ml 254 ml Free Water 60 ml 100 ml IV Total 467 ml 144 ml Tube Feeding 280 ml 400 ml Other 100 ml Output Urine Total 440 ml 490 ml # Bowel Movements 2 Laboratory Tests Test 11/18/19 20:33 11/18/19 20:37 11/18/19 20:49 11/18/19 23:50 POC Whole Blood Glucose 66 MG/DL (74-106) L 65 MG/DL (74-106) L 162 MG/DL (74-106) H 68 MG/DL (74-106) L Test 11/19/19 00:08 11/19/19 02:27 11/19/19 04:45 11/19/19 10:02 POC Whole Blood Glucose 73 MG/DL (74-106) L 86 MG/DL (74-106) White Blood Count 16.7 K/UL (4.8-10.8) H Red Blood Count 3.98 M/UL (4.20-5.40) L Hemoglobin 10.6 G/DL (12.0-16.0) L Hematocrit 35.6 % (37.0-47.0) L Mean Corpuscular Volume 90 FL (80-99) Mean Corpuscular Hemoglobin 26.6 PG (27.0-31.0) L Mean Corpuscular Hemoglobin Concent 29.7 G/DL (32.0-36.0) L Red Cell Distribution Width 16.7 % (11.6-14.8) H Platelet Count 257 K/UL (150-450) Mean Platelet Volume 6.8 FL (6.5-10.1) Neutrophils (%) (Auto) % (45.0-75.0) Lymphocytes (%) (Auto) % (20.0-45.0) Monocytes (%) (Auto) % (1.0-10.0) Eosinophils (%) (Auto) % (0.0-3.0) Basophils (%) (Auto) % (0.0-2.0) Differential Total Cells Counted 100 Neutrophils % (Manual) 92 % (45-75) H Lymphocytes % (Manual) 5 % (20-45) L Monocytes % (Manual) 3 % (1-10) Eosinophils % (Manual) 0 % (0-3) Basophils % (Manual) 0 % (0-2) Band Neutrophils 0 % (0-8) Platelet Estimate Adequate Platelet Morphology Normal Polychromasia 1+ Hypochromasia 1+ Anisocytosis 1+ Sodium Level 145 MMOL/L (136-145) Potassium Level 4.7 MMOL/L (3.5-5.1) Chloride Level 110 MMOL/L (98-107) H Carbon Dioxide Level 36 MMOL/L (21-32) H Anion Gap -1 mmol/L (5-15) L Blood Urea Nitrogen 22 mg/dL (7-18) H Creatinine 0.7 MG/DL (0.55-1.30) Estimat Glomerular Filtration Rate > 60 mL/min (>60) Glucose Level 115 MG/DL (74-106) H Calcium Level 8.0 MG/DL (8.5-10.1) L Phosphorus Level 3.2 MG/DL (2.5-4.9) Magnesium Level 2.1 MG/DL (1.8-2.4) Total Bilirubin 1.1 MG/DL (0.2-1.0) H Direct Bilirubin 0.6 MG/DL (0.0-0.3) H Aspartate Amino Transf (AST/SGOT) 40 U/L (15-37) H Alanine Aminotransferase (ALT/SGPT) 33 U/L (12-78) Alkaline Phosphatase 165 U/L (46-116) H Total Protein 5.8 G/DL (6.4-8.2) L Albumin 1.8 G/DL (3.4-5.0) L Globulin 4.0 g/dL Albumin/Globulin Ratio 0.4 (1.0-2.7) L Arterial Blood pH 7.431 (7.350-7.450) Arterial Blood Partial Pressure CO2 47.4 mmHg (35.0-45.0) H Arterial Blood Partial Pressure O2 93.6 mmHg (75.0-100.0) Arterial Blood HCO3 30.8 mmol/L (22.0-26.0) H Arterial Blood Oxygen Saturation 97.3 % (95-100) Arterial Blood Base Excess 5.7 (-2-2) H Steve Test Positive Objective HEAD AND NECK: No JVD. OG tube Orally intubated LUNGS: Coarse rhonchi. CARDIOVASCULAR: Irregularly irregular. S1 and S2 with no gallop or murmur. ABDOMEN: Soft. EXTREMITIES: No pitting edema. Gabe Snell MD Nov 19, 2019 10:38
[2019-11-19] MEDS ORDERED: Racemic EPINEPHrine 2.25% 0.5ml HHN SCH (11:45)
--- NOTE | 2019-11-19 11:45 | Consultation ---
DATE OF CONSULTATION: 11/19/2019 ENDOCRINOLOGY CONSULTATION CONSULTING PHYSICIAN: Alphonse Ojeda MD. REFERRING PHYSICIAN: Gustabo Carter DO. REASON FOR CONSULTATION: Hypoglycemia. HISTORY OF PRESENT ILLNESS: The patient is a 54-year-old female, who was admitted to the hospital with COVID pneumonia and respiratory failure. She was intubated in the ICU. The patient has history of diabetes and hypertension. Glucose has been managed by Levemir 20 units b.i.d. with NovoLog sliding scale. She has been hypoglycemic, therefore Endocrinology was consulted. PAST MEDICAL HISTORY: 1. Diabetes. 2. Hypertension. FAMILY HISTORY: Noncontributory. SOCIAL HISTORY: No smoking, alcohol, or drug use. REVIEW OF SYSTEMS: Unobtainable as the patient is intubated. ALLERGIES TO MEDICATIONS: None. MEDICATIONS: Medications as an outpatient, reviewed and reconciled. LABORATORY DATA: WBC 15, hemoglobin 10, hematocrit 35, platelets of 257,000. Sodium 145, potassium 4.7, chloride 110, bicarb 26, BUN 22, creatinine 0.7. PHYSICAL EXAMINATION: GENERAL: Orally intubated. VITAL SIGNS: Blood pressure 132/72, pulse 79, respiratory rate 14, temperature of 98.2. Rest of the physical exam is deferred due to patient being COVID positive. DIAGNOSES: 1. COVID Infection. 2. Respiratory failure. 3. Diabetes, out of control. 4. Hypoglycemia. PLAN: 1. Discontinue Levemir. 2. Continue NovoLog every 6 hours. 3. Hypoglycemia protocol. 4. Further adjustment according to blood glucose values. Thank you, Dr. Carter, for the courtesy of this consultation. Alphonse Ojeda M.D. DR: NIKKO/CORA JOB#: [id number] CC:
--- NOTE | 2019-11-19 12:21 | General Progress Note ---
Assessment/Plan Problem List: (1) Afib ICD Codes: I48.91 - Unspecified atrial fibrillation SNOMED: 27087320 (2) Epistaxis ICD Codes: R04.0 - Epistaxis SNOMED: 148619656 (3) Weak ICD Codes: R53.1 - Weakness SNOMED: 86100593 (4) UTI (urinary tract infection) ICD Codes: N39.0 - Urinary tract infection, site not specified SNOMED: 97152967 (5) Diabetes ICD Codes: E11.9 - Type 2 diabetes mellitus without complications SNOMED: 71443195 (6) CHF (congestive heart failure) ICD Codes: I50.9 - Heart failure, unspecified SNOMED: 27035191 (7) Multifocal pneumonia ICD Codes: J18.9 - Pneumonia, unspecified organism SNOMED: 107109916 (8) 2019 novel coronavirus disease (COVID-19) ICD Codes: U07.1 - COVID-19 SNOMED: 968224068 (9) Respiratory failure ICD Codes: J96.90 - Respiratory failure, unspecified, unspecified whether with hypoxia or hypercapnia SNOMED: 014138309 Status: unchanged Assessment/Plan: vent abx bp bs control reintubate cbc bmp am Subjective Constitutional: Reports: weakness Allergies: Coded Allergies: No Known Allergies (Unverified , 11/06/19) All Systems: reviewed and negative except above Subjective o2 mask in icu Objective Last 24 Hour Vital Signs Date Time Temp Pulse Resp B/P (MAP) Pulse Ox O2 Delivery O2 Flow Rate FiO2 11/19/19 11:50 Non-Rebreather 15.0 100 11/19/19 11:00 98 20 144/93 (110) 89 11/19/19 10:46 87 36 11/19/19 10:30 85 20 148/76 (100) 100 11/19/19 10:00 91 25 162/81 (108) 82 11/19/19 09:30 91 21 115/82 (93) 98 11/19/19 09:11 40 11/19/19 09:10 100 11/19/19 09:00 76 13 115/67 (83) 100 11/19/19 08:30 86 18 116/72 (87) 97 11/19/19 08:09 91 128/63 11/19/19 08:00 92 7/30/20 08:00 40 11/19/19 08:00 21 128/63 Mechanical Ventilator 40 11/19/19 08:00 Mechanical Ventilator 11/19/19 08:00 98.6 82 18 128/63 (84) 97 11/19/19 07:27 84 18 40 11/19/19 07:00 73 18 109/89 (96) 100 11/19/19 07:00 18 109/89 Mechanical Ventilator 40 11/19/19 06:30 78 16 11/19/19 06:30 78 16 105/62 (76) 100 11/19/19 06:00 75 16 106/72 (83) 96 11/19/19 06:00 18 106/72 Mechanical Ventilator 40 11/19/19 05:30 76 14 125/76 (92) 96 11/19/19 05:00 79 14 133/73 (93) 100 11/19/19 05:00 14 133/73 Mechanical Ventilator 40 11/19/19 04:30 76 0 114/67 (83) 100 11/19/19 04:00 Mechanical Ventilator 11/19/19 04:00 74 11/19/19 04:00 40 11/19/19 04:00 12 100/51 Mechanical Ventilator 40 11/19/19 04:00 98.2 74 12 100/51 (67) 97 11/19/19 03:30 76 15 100/56 (71) 100 11/19/19 03:26 79 18 40 11/19/19 03:16 102 15 121/53 (75) 100 11/19/19 03:00 15 190/127 Mechanical Ventilator 40 11/19/19 03:00 102 15 190/127 (148) 91 11/19/19 02:30 77 13 144/84 (104) 100 11/19/19 02:00 69 18 111/69 (83) 100 11/19/19 02:00 18 111/69 Mechanical Ventilator 40 11/19/19 01:30 67 18 112/77 (89) 97 11/19/19 01:00 70 18 111/65 (80) 100 11/19/19 01:00 18 111/65 Mechanical Ventilator 40 11/19/19 00:30 67 17 130/54 (79) 100 11/19/19 00:00 40 11/19/19 00:00 98.0 68 15 124/77 (93) 96 11/19/19 00:00 15 124/77 Mechanical Ventilator 40 11/19/19 00:00 Mechanical Ventilator 11/18/19 23:30 69 20 125/69 (87) 100 11/18/19 23:30 64 18 40 11/18/19 23:22 60 11/18/19 23:00 65 17 87/59 (68) 100 11/18/19 23:00 17 87/59 Mechanical Ventilator 40 11/18/19 22:35 63 17 99/65 (76) 100 11/18/19 22:30 63 18 83/54 (64) 100 11/18/19 22:00 70 18 93/47 (62) 100 11/18/19 22:00 18 93/47 Mechanical Ventilator 40 11/18/19 21:30 88 18 159/74 (102) 100 11/18/19 21:05 84 150/67 11/18/19 21:00 75 18 150/67 (94) 97 11/18/19 21:00 18 150/67 Mechanical Ventilator 40 11/18/19 20:30 79 18 111/58 (75) 97 11/18/19 20:00 98.6 85 20 94/45 (61) 97 11/18/19 20:00 Mechanical Ventilator 11/18/19 20:00 40 11/18/19 20:00 20 94/45 Mechanical Ventilator 40 11/18/19 20:00 85 11/18/19 19:30 71 18 40 11/18/19 19:30 75 0 104/56 (72) 96 11/18/19 19:00 85 0 118/53 (74) 97 11/18/19 19:00 18 118/53 Mechanical Ventilator 40 11/18/19 18:30 87 19 150/69 (96) 98 11/18/19 18:00 87 16 133/66 (88) 98 11/18/19 18:00 18 133/66 Mechanical Ventilator 40 11/18/19 17:30 81 18 123/63 (83) 97 11/18/19 17:00 18 123/63 Mechanical Ventilator 40 11/18/19 17:00 76 18 100/58 (72) 98 11/18/19 16:30 73 18 103/50 (67) 100 11/18/19 16:00 Mechanical Ventilator 11/18/19 16:00 73 11/18/19 16:00 40 11/18/19 16:00 18 103/50 Mechanical Ventilator 40 11/18/19 16:00 98.0 80 18 94/52 (66) 96 11/18/19 15:44 72 18 40 11/18/19 15:30 75 18 94/55 (68) 99 11/18/19 15:00 18 138/75 Mechanical Ventilator 40 11/18/19 15:00 79 20 138/75 (96) 100 11/18/19 14:00 76 18 129/55 (79) 98 11/18/19 14:00 18 129/55 Mechanical Ventilator 40 11/18/19 13:30 77 18 83/50 (61) 100 11/18/19 13:00 77 19 114/76 (89) 100 11/18/19 13:00 18 83/50 Mechanical Ventilator 40 11/18/19 12:34 79 18 101/78 (86) 99 11/18/19 12:32 19 89/56 Mechanical Ventilator 60.0 40 11/18/19 12:30 77 18 81/42 (55) 97 Intake and Output 11/18/19 11/19/19 19:00 07:00 Intake Total 807 ml 744 ml Output Total 440 ml 490 ml Balance 367 ml 254 ml Free Water 60 ml 100 ml IV Total 467 ml 144 ml Tube Feeding 280 ml 400 ml Other 100 ml Output Urine Total 440 ml 490 ml # Bowel Movements 2 Laboratory Tests 11/18/19 20:33: POC Whole Blood Glucose 66L 11/18/19 20:37: POC Whole Blood Glucose 65L 11/18/19 20:49: POC Whole Blood Glucose 162H 11/18/19 23:50: POC Whole Blood Glucose 68L 11/19/19 00:08: POC Whole Blood Glucose 73L 11/19/19 02:27: POC Whole Blood Glucose 86 11/19/19 04:45: White Blood Count 16.7H, Red Blood Count 3.98L, Hemoglobin 10.6L, Hematocrit 35.6L, Mean Corpuscular Volume 90, Mean Corpuscular Hemoglobin 26.6L, Mean Corpuscular Hemoglobin Concent 29.7L, Red Cell Distribution Width 16.7H, Platelet Count 257, Mean Platelet Volume 6.8, Neutrophils (%) (Auto) , Lymphocytes (%) (Auto) , Monocytes (%) (Auto) , Eosinophils (%) (Auto) , Basophils (%) (Auto) , Differential Total Cells Counted 100, Neutrophils % ( Manual) 92H, Lymphocytes % (Manual) 5L, Monocytes % (Manual) 3, Eosinophils % ( Manual) 0, Basophils % (Manual) 0, Band Neutrophils 0, Platelet Estimate Adequate, Platelet Morphology Normal, Polychromasia 1+, Hypochromasia 1+, Anisocytosis 1+, Sodium Level 145, Potassium Level 4.7, Chloride Level 110H, Carbon Dioxide Level 36H, Anion Gap -1L, Blood Urea Nitrogen 22H, Creatinine 0.7 , Estimat Glomerular Filtration Rate > 60, Glucose Level 115H, Calcium Level 8.0L, Phosphorus Level 3.2, Magnesium Level 2.1, Total Bilirubin 1.1H, Direct Bilirubin 0.6H, Aspartate Amino Transf (AST/SGOT) 40H, Alanine Aminotransferase (ALT/SGPT) 33, Alkaline Phosphatase 165H, Total Protein 5.8L, Albumin 1.8L, Globulin 4.0, Albumin/Globulin Ratio 0.4L 11/19/19 10:02: Arterial Blood pH 7.431, Arterial Blood Partial Pressure CO2 47.4H, Arterial Blood Partial Pressure O2 93.6, Arterial Blood HCO3 30.8H, Arterial Blood Oxygen Saturation 97.3, Arterial Blood Base Excess 5.7H, Steve Test Positive Height (Feet): 5 Height (Inches): 3.00 Weight (Pounds): 292 General Appearance: lethargic EENT: normal ENT inspection Neck: normal alignment Cardiovascular: normal rate, regular rhythm Respiratory/Chest: no respiratory distress, no accessory muscle use Extremities: normal inspection Skin: normal pigmentation Gustabo Carter DO Nov 19, 2019 12:21
[2019-11-19] MEDS: fentaNYL 2500mcg/NS 250ml 250 ML IV SCH (12:53)
--- NOTE | 2019-11-19 12:57 | Hematology/Onc Progress Note ---
Assessment/Plan Assessment/Plan # Anemia of chronic disease due to underlying chronic medical issues, multifactorial v Gi bleed in this case likely related covid19+++++++++ --> Anemia workup has been ordered, rule out gi bleed --> No evidence of hemolysis is noted, peripheral smear has been reviewed. --> Hgb goal >7. Transfuse prn. --> Epogen or iron at this time is not particularly indicated --> Medications have been reviewed --> low threshold for gi evaluation in case has occult + --> hgb 10-->9.8-->9.2-->9.7-->10.7->10->11->10.2->10.6 # Leukocytosis/elevated white blood cell count, unspecified likely related to covid19 --> have reviewed peripheral smear and bandemia/neutrophilia noted --> continue antibiotics if they have been started by ID team zosyn --> on remdesivir, dexamathasone --> monitor for resolution --> wbc 12->11-->11-->13->16-->21-->17 # COVID 19 pneumonia --> on vent --> respiratory failure --> s/p vent # Diabetes mellitus --> iss and bs goal <140 # Hypertension --> sbp goal <150 Appreciate consultation and jimena RN Subjective Constitutional: Denies: no symptoms, chills, fever, malaise, weakness, other HEENT: Denies: no symptoms, eye pain, blurred vision, tearing, double vision, ear pain, ear discharge, nose pain, nose congestion, throat pain, throat swelling, mouth pain, mouth swelling, other Cardiovascular: Denies: no symptoms, chest pain, edema, irregular heart rate, lightheadedness, palpitations, syncope, other Respiratory: Denies: no symptoms, cough, shortness of breath, SOB with excertion, SOB at rest, sputum, wheezing, other Gastrointestinal/Abdominal: Denies: no symptoms, abdomen distended, abdominal pain, black stools, tarry stools, blood in stool, constipated, diarrhea, difficulty swallowing, nausea, poor appetite, poor fluid intake, rectal bleeding , vomiting, other Neurologic/Psychiatric: Denies: no symptoms, anxiety, depressed, emotional problems, headache, numbness, paresthesia, pre-existing deficit, seizure, tingling, tremors, weakness, other Endocrine: Denies: no symptoms, excessive sweating, flushing, intolerance to cold, intolerance to heat, increased hunger, increased thirst, increased urine, unexplained weight gain, unexplained weight loss, other Allergies: Coded Allergies: No Known Allergies (Unverified , 11/06/19) Subjective 11/09 weaning prn, meds reviewed, labs noted, hgb 9.2 11/10 on vent, no bleeding, hgb remains low, jimena Rn Jose R in am 11/11 on vent, fluids, ogf tube as well, labs pending in am 11/12 remains altered, no bleeding, labs reviewed, cbc noted 11/13 attempted weaning, but did not do well, no bleeding, hgb 10 11/14 intubated, weaning, on vent, with og, labs noted, abx 11/15 labs noted, no bleedign, weaning protocol, no night sweats, elev wbc, with fevers 11/16 no bleeding, jimean Broussard rn in the am, on vent, weaning but failed 11/17 meds reviewed, no night sweats, jimena rn, no bleeding 11/18 extubated, on nc at this time, no bleeding, meds reviewed Objective Objective Current Medications Medications (Trade) Dose Ordered Sig/Robyn Route PRN Reason Start Time Stop Time Status Last Admin Dose Admin Acetaminophen (Tylenol) 650 mg Q6H PRN NG Temp >100.5 11/12/19 00:15 12/12/19 00:14 11/16/19 09:02 Chlorhexidine Gluconate (Miya-Hex 2%) 1 applic DAILY@1999 TOPIC 11/08/19 21:30 02/06/20 21:29 11/18/19 20:00 Clonidine HCl (Catapres Tab) 0.1 mg Q4H PRN NG For High Blood Pressure 11/13/19 17:00 02/09/20 10:59 Dextrose (Dextrose 50%) 25 ml Q30M PRN IV Hypoglycemia 11/08/19 12:30 02/05/20 02:59 11/18/19 23:54 Dextrose (Dextrose 50%) 50 ml Q30M PRN IV Hypoglycemia 11/08/19 12:30 02/05/20 02:59 Famotidine (Pepcid I.v.) 20 mg Q12HR IVP 11/08/19 15:30 12/08/19 15:29 11/19/19 08:08 Fentanyl Citrate 250 ml @ 0 mls/hr Q24H IV 11/19/19 12:15 02/17/20 12:14 11/19/19 12:53 Folic Acid (Folate) 2 mg DAILY GT 11/15/19 09:00 12/15/19 08:59 11/19/19 08:09 Insulin Aspart (NovoLOG) EVERY 6 HOURS SUBQ 11/15/19 12:00 02/11/20 20:59 11/18/19 05:17 Lorazepam (Ativan 2mg/ml 1ml) 1 mg Q4H PRN IV For Anxiety 11/14/19 10:00 11/21/19 09:59 11/16/19 09:00 Metoprolol Tartrate (Lopressor) 50 mg Q12HR NG 11/17/19 21:00 02/15/20 20:59 11/19/19 08:09 Last 24 Hour Vital Signs Date Time Temp Pulse Resp B/P (MAP) Pulse Ox O2 Delivery O2 Flow Rate FiO2 11/19/19 12:53 20 83/60 Mechanical Ventilator 100 11/19/19 12:30 83 22 106/60 (75) 93 11/19/19 12:30 100 11/19/19 12:00 123 11/19/19 12:00 123 29 113/77 (89) 93 11/19/19 11:50 Non-Rebreather 15.0 100 11/19/19 11:30 10.0 40 11/19/19 11:00 98 20 144/93 (110) 89 11/19/19 10:46 87 36 11/19/19 10:30 85 20 148/76 (100) 100 11/19/19 10:00 91 25 162/81 (108) 82 11/19/19 09:30 91 21 115/82 (93) 98 11/19/19 09:11 40 11/19/19 09:10 100 11/19/19 09:00 76 13 115/67 (83) 100 11/19/19 08:30 86 18 116/72 (87) 97 11/19/19 08:09 91 128/63 11/19/19 08:00 92 11/19/19 08:00 40 11/19/19 08:00 21 128/63 Mechanical Ventilator 40 11/19/19 08:00 Mechanical Ventilator 11/19/19 08:00 98.6 82 18 128/63 (84) 97 11/19/19 07:27 84 18 40 11/19/19 07:00 73 18 109/89 (96) 100 11/19/19 07:00 18 109/89 Mechanical Ventilator 40 11/19/19 06:30 78 16 11/19/19 06:30 78 16 105/62 (76) 100 11/19/19 06:00 75 16 106/72 (83) 96 11/19/19 06:00 18 106/72 Mechanical Ventilator 40 11/19/19 05:30 76 14 125/76 (92) 96 11/19/19 05:00 79 14 133/73 (93) 100 11/19/19 05:00 14 133/73 Mechanical Ventilator 40 11/19/19 04:30 76 0 114/67 (83) 100 11/19/19 04:00 Mechanical Ventilator 11/19/19 04:00 74 11/19/19 04:00 40 11/19/19 04:00 12 100/51 Mechanical Ventilator 40 11/19/19 04:00 98.2 74 12 100/51 (67) 97 11/19/19 03:30 76 15 100/56 (71) 100 11/19/19 03:26 79 18 40 11/19/19 03:16 102 15 121/53 (75) 100 11/19/19 03:00 15 190/127 Mechanical Ventilator 40 11/19/19 03:00 102 15 190/127 (148) 91 11/19/19 02:30 77 13 144/84 (104) 100 11/19/19 02:00 69 18 111/69 (83) 100 11/19/19 02:00 18 111/69 Mechanical Ventilator 40 11/19/19 01:30 67 18 112/77 (89) 97 11/19/19 01:00 70 18 111/65 (80) 100 11/19/19 01:00 18 111/65 Mechanical Ventilator 40 11/19/19 00:30 67 17 130/54 (79) 100 11/19/19 00:00 40 11/19/19 00:00 98.0 68 15 124/77 (93) 96 11/19/19 00:00 15 124/77 Mechanical Ventilator 40 11/19/19 00:00 Mechanical Ventilator 11/18/19 23:30 69 20 125/69 (87) 100 11/18/19 23:30 64 18 40 11/18/19 23:22 60 11/18/19 23:00 65 17 87/59 (68) 100 11/18/19 23:00 17 87/59 Mechanical Ventilator 40 11/18/19 22:35 63 17 99/65 (76) 100 11/18/19 22:30 63 18 83/54 (64) 100 11/18/19 22:00 70 18 93/47 (62) 100 11/18/19 22:00 18 93/47 Mechanical Ventilator 40 11/18/19 21:30 88 18 159/74 (102) 100 11/18/19 21:05 84 150/67 11/18/19 21:00 75 18 150/67 (94) 97 11/18/19 21:00 18 150/67 Mechanical Ventilator 40 11/18/19 20:30 79 18 111/58 (75) 97 11/18/19 20:00 98.6 85 20 94/45 (61) 97 11/18/19 20:00 Mechanical Ventilator 11/18/19 20:00 40 11/18/19 20:00 20 94/45 Mechanical Ventilator 40 11/18/19 20:00 85 11/18/19 19:30 71 18 40 11/18/19 19:30 75 0 104/56 (72) 96 11/18/19 19:00 85 0 118/53 (74) 97 11/18/19 19:00 18 118/53 Mechanical Ventilator 40 11/18/19 18:30 87 19 150/69 (96) 98 11/18/19 18:00 87 16 133/66 (88) 98 11/18/19 18:00 18 133/66 Mechanical Ventilator 40 11/18/19 17:30 81 18 123/63 (83) 97 11/18/19 17:00 18 123/63 Mechanical Ventilator 40 11/18/19 17:00 76 18 100/58 (72) 98 11/18/19 16:30 73 18 103/50 (67) 100 11/18/19 16:00 Mechanical Ventilator 11/18/19 16:00 73 7/29/20 16:00 40 11/18/19 16:00 18 103/50 Mechanical Ventilator 40 11/18/19 16:00 98.0 80 18 94/52 (66) 96 11/18/19 15:44 72 18 40 11/18/19 15:30 75 18 94/55 (68) 99 11/18/19 15:00 18 138/75 Mechanical Ventilator 40 11/18/19 15:00 79 20 138/75 (96) 100 11/18/19 14:00 76 18 129/55 (79) 98 11/18/19 14:00 18 129/55 Mechanical Ventilator 40 11/18/19 13:30 77 18 83/50 (61) 100 11/18/19 13:00 77 19 114/76 (89) 100 11/18/19 13:00 18 83/50 Mechanical Ventilator 40 11/18/19 12:34 79 18 101/78 (86) 99 11/18/19 12:32 19 89/56 Mechanical Ventilator 60.0 40 11/18/19 12:30 77 18 81/42 (55) 97 11/18/19 12:00 40 11/18/19 12:00 19 89/56 Mechanical Ventilator 40 11/18/19 12:00 Mechanical Ventilator 11/18/19 12:00 99.2 81 18 89/56 (67) 97 11/18/19 11:49 82 11/18/19 11:30 84 18 99/60 (73) 96 11/18/19 11:00 100 22 126/90 (102) 93 11/18/19 11:00 18 126/90 Mechanical Ventilator 40 11/18/19 10:05 120 25 40 11/18/19 10:00 30 133/119 Mechanical Ventilator 40 11/18/19 10:00 106 21 133/90 (104) 97 11/18/19 09:30 93 11/18/19 09:00 118 26 150/95 (113) 91 11/18/19 08:48 137 145/96 11/18/19 08:30 133 27 147/101 (116) 94 11/18/19 08:00 100.0 103 22 145/92 (109) 98 11/18/19 08:00 Mechanical Ventilator 11/18/19 08:00 40 11/18/19 08:00 101 11/18/19 07:30 98 19 40 40 11/18/19 07:00 100 21 145/96 (112) 99 11/18/19 06:30 93 20 138/85 (102) 98 11/18/19 06:05 94 20 11/18/19 06:00 99.6 90 20 129/69 (89) 99 11/18/19 05:30 90 21 150/79 (102) 98 11/18/19 05:00 20 130/69 Mechanical Ventilator 40 11/18/19 05:00 99.7 88 20 130/69 (89) 98 11/18/19 04:30 87 19 125/81 (96) 98 11/18/19 04:00 99.9 90 18 138/93 (108) 98 11/18/19 04:00 18 138/93 Mechanical Ventilator 40 11/18/19 04:00 Mechanical Ventilator 11/18/19 04:00 40 11/18/19 03:50 96 20 132/75 (94) 98 11/18/19 03:41 88 19 40 11/18/19 03:30 89 17 147/74 (98) 99 11/18/19 03:12 95 11/18/19 03:00 18 147/101 Mechanical Ventilator 40 11/18/19 03:00 86 17 143/58 (86) 99 11/18/19 02:30 94 20 133/86 (102) 96 11/18/19 02:00 18 120/65 Mechanical Ventilator 40 11/18/19 02:00 79 18 100/66 (77) 99 11/18/19 01:30 78 18 112/58 (76) 95 11/18/19 01:00 81 18 108/70 (83) 96 11/18/19 01:00 18 108/70 Mechanical Ventilator 40 11/18/19 00:30 78 18 110/58 (75) 96 11/18/19 00:00 Mechanical Ventilator 11/18/19 00:00 99.6 80 18 118/74 (89) 98 11/18/19 00:00 18 118/74 Mechanical Ventilator 40 11/18/19 00:00 35 11/17/19 23:30 78 18 107/58 (74) 98 11/17/19 23:19 76 18 40 11/17/19 23:07 81 11/17/19 23:00 18 107/58 Mechanical Ventilator 40 11/17/19 23:00 83 18 138/58 (84) 96 11/17/19 22:30 72 18 100/64 (76) 100 11/17/19 22:00 73 18 94/68 (77) 98 11/17/19 22:00 18 105/65 Mechanical Ventilator 40 11/17/19 21:30 71 18 105/65 (78) 100 11/17/19 21:00 83 18 126/57 (80) 99 11/17/19 21:00 18 126/57 Mechanical Ventilator 40 11/17/19 20:43 87 156/69 11/17/19 20:30 82 18 135/62 (86) 98 11/17/19 20:00 35 11/17/19 20:00 18 156/89 Mechanical Ventilator 40 11/17/19 20:00 98.4 87 19 156/69 (98) 98 11/17/19 20:00 Mechanical Ventilator 11/17/19 19:45 90 18 40 11/17/19 19:30 87 18 144/67 (92) 100 11/17/19 19:11 76 11/17/19 19:07 18 118/57 Mechanical Ventilator 11/17/19 19:00 83 18 118/57 (77) 11/17/19 18:35 82 18 136/69 (91) 98 11/17/19 18:00 80 18 144/77 (99) 98 11/17/19 18:00 18 136/69 Mechanical Ventilator 11/17/19 17:30 86 18 134/58 (83) 99 11/17/19 17:00 18 113/62 Mechanical Ventilator 11/17/19 17:00 98.6 85 18 145/62 (89) 99 11/17/19 16:30 94 18 134/65 (88) 96 11/17/19 16:15 20 134/65 Mechanical Ventilator 11/17/19 16:02 40 11/17/19 16:01 Mechanical Ventilator 11/17/19 16:00 81 24 154/78 (103) 100 11/17/19 16:00 85 11/17/19 15:30 76 18 129/65 (86) 94 11/17/19 15:17 113 28 40 11/17/19 15:05 88 18 130/55 (80) 100 11/17/19 15:00 18 129/65 Mechanical Ventilator 11/17/19 14:30 86 18 141/72 (95) 97 11/17/19 14:02 88 18 125/63 (83) 98 11/17/19 14:00 18 141/72 Mechanical Ventilator 11/17/19 13:34 83 18 145/74 (97) 98 11/17/19 13:00 77 17 146/76 (99) 99 11/17/19 13:00 18 146/76 Mechanical Ventilator Intake and Output 11/18/19 11/19/19 19:00 07:00 Intake Total 807 ml 744 ml Output Total 440 ml 490 ml Balance 367 ml 254 ml Free Water 60 ml 100 ml IV Total 467 ml 144 ml Tube Feeding 280 ml 400 ml Other 100 ml Output Urine Total 440 ml 490 ml # Bowel Movements 2 Labs Test 11/16/19 13:19 11/16/19 17:10 11/16/19 20:49 11/16/19 23:58 POC Whole Blood Glucose 268 MG/DL (74-106) Test 11/17/19 03:45 11/17/19 05:50 11/17/19 09:40 11/17/19 12:53 White Blood Count 20.9 K/UL (4.8-10.8) Red Blood Count 3.82 M/UL (4.20-5.40) Hemoglobin 10.2 G/DL (12.0-16.0) Hematocrit 34.3 % (37.0-47.0) Mean Corpuscular Volume 90 FL (80-99) Mean Corpuscular Hemoglobin 26.7 PG (27.0-31.0) Mean Corpuscular Hemoglobin Concent 29.7 G/DL (32.0-36.0) Red Cell Distribution Width 16.5 % (11.6-14.8) Platelet Count 234 K/UL (150-450) Mean Platelet Volume 7.0 FL (6.5-10.1) Neutrophils (%) (Auto) % (45.0-75.0) Lymphocytes (%) (Auto) % (20.0-45.0) Monocytes (%) (Auto) % (1.0-10.0) Eosinophils (%) (Auto) % (0.0-3.0) Basophils (%) (Auto) % (0.0-2.0) Differential Total Cells Counted 100 Neutrophils % (Manual) 95 % (45-75) Lymphocytes % (Manual) 3 % (20-45) Monocytes % (Manual) 2 % (1-10) Eosinophils % (Manual) 0 % (0-3) Basophils % (Manual) 0 % (0-2) Band Neutrophils 0 % (0-8) Platelet Estimate Adequate Platelet Morphology Normal Anisocytosis 1+ Sodium Level 145 MMOL/L (136-145) Potassium Level 4.2 MMOL/L (3.5-5.1) Chloride Level 110 MMOL/L (98-107) Carbon Dioxide Level 34 MMOL/L (21-32) Anion Gap 1 mmol/L (5-15) Blood Urea Nitrogen 26 mg/dL (7-18) Creatinine 0.9 MG/DL (0.55-1.30) Estimat Glomerular Filtration Rate > 60 mL/min (>60) Glucose Level 252 MG/DL (74-106) Calcium Level 8.5 MG/DL (8.5-10.1) Phosphorus Level 2.9 MG/DL (2.5-4.9) Magnesium Level 2.2 MG/DL (1.8-2.4) Total Bilirubin 1.2 MG/DL (0.2-1.0) Direct Bilirubin 0.8 MG/DL (0.0-0.3) Aspartate Amino Transf (AST/SGOT) 35 U/L (15-37) Alanine Aminotransferase (ALT/SGPT) 33 U/L (12-78) Alkaline Phosphatase 180 U/L (46-116) Total Protein 6.4 G/DL (6.4-8.2) Albumin 2.4 G/DL (3.4-5.0) Test 11/17/19 18:09 11/17/19 19:55 11/17/19 23:02 11/18/19 04:00 White Blood Count 18.8 K/UL (4.8-10.8) Red Blood Count 3.96 M/UL (4.20-5.40) Hemoglobin 10.5 G/DL (12.0-16.0) Hematocrit 35.7 % (37.0-47.0) Mean Corpuscular Volume 90 FL (80-99) Mean Corpuscular Hemoglobin 26.5 PG (27.0-31.0) Mean Corpuscular Hemoglobin Concent 29.4 G/DL (32.0-36.0) Red Cell Distribution Width 17.0 % (11.6-14.8) Platelet Count 269 K/UL (150-450) Mean Platelet Volume 7.2 FL (6.5-10.1) Neutrophils (%) (Auto) % (45.0-75.0) Lymphocytes (%) (Auto) % (20.0-45.0) Monocytes (%) (Auto) % (1.0-10.0) Eosinophils (%) (Auto) % (0.0-3.0) Basophils (%) (Auto) % (0.0-2.0) Differential Total Cells Counted 100 Neutrophils % (Manual) 87 % (45-75) Lymphocytes % (Manual) 5 % (20-45) Monocytes % (Manual) 7 % (1-10) Eosinophils % (Manual) 1 % (0-3) Basophils % (Manual) 0 % (0-2) Band Neutrophils 0 % (0-8) Platelet Estimate Adequate Platelet Morphology Normal Hypochromasia 1+ Anisocytosis 1+ Sodium Level 145 MMOL/L (136-145) Potassium Level 4.3 MMOL/L (3.5-5.1) Chloride Level 108 MMOL/L (98-107) Carbon Dioxide Level 35 MMOL/L (21-32) Anion Gap 2 mmol/L (5-15) Blood Urea Nitrogen 26 mg/dL (7-18) Creatinine 0.9 MG/DL (0.55-1.30) Estimat Glomerular Filtration Rate > 60 mL/min (>60) Glucose Level 178 MG/DL (74-106) Calcium Level 8.3 MG/DL (8.5-10.1) Test 11/18/19 05:12 11/18/19 09:31 11/18/19 20:33 11/18/19 20:37 Arterial Blood pH 7.386 (7.350-7.450) Arterial Blood Partial Pressure CO2 50.2 mmHg (35.0-45.0) Arterial Blood Partial Pressure O2 63.2 mmHg (75.0-100.0) Arterial Blood HCO3 29.4 mmol/L (22.0-26.0) Arterial Blood Oxygen Saturation 92.3 % (95-100) Arterial Blood Base Excess 3.5 (-2-2) Steve Test Positive POC Whole Blood Glucose 66 MG/DL (74-106) 65 MG/DL (74-106) Test 11/18/19 20:49 11/18/19 23:50 11/19/19 00:08 11/19/19 02:27 POC Whole Blood Glucose 162 MG/DL (74-106) 68 MG/DL (74-106) 73 MG/DL (74-106) 86 MG/DL (74-106) Test 11/19/19 04:45 11/19/19 10:02 11/19/19 12:44 White Blood Count 16.7 K/UL (4.8-10.8) Red Blood Count 3.98 M/UL (4.20-5.40) Hemoglobin 10.6 G/DL (12.0-16.0) Hematocrit 35.6 % (37.0-47.0) Mean Corpuscular Volume 90 FL (80-99) Mean Corpuscular Hemoglobin 26.6 PG (27.0-31.0) Mean Corpuscular Hemoglobin Concent 29.7 G/DL (32.0-36.0) Red Cell Distribution Width 16.7 % (11.6-14.8) Platelet Count 257 K/UL (150-450) Mean Platelet Volume 6.8 FL (6.5-10.1) Neutrophils (%) (Auto) % (45.0-75.0) Lymphocytes (%) (Auto) % (20.0-45.0) Monocytes (%) (Auto) % (1.0-10.0) Eosinophils (%) (Auto) % (0.0-3.0) Basophils (%) (Auto) % (0.0-2.0) Differential Total Cells Counted 100 Neutrophils % (Manual) 92 % (45-75) Lymphocytes % (Manual) 5 % (20-45) Monocytes % (Manual) 3 % (1-10) Eosinophils % (Manual) 0 % (0-3) Basophils % (Manual) 0 % (0-2) Band Neutrophils 0 % (0-8) Platelet Estimate Adequate Platelet Morphology Normal Polychromasia 1+ Hypochromasia 1+ Anisocytosis 1+ Sodium Level 145 MMOL/L (136-145) Potassium Level 4.7 MMOL/L (3.5-5.1) Chloride Level 110 MMOL/L (98-107) Carbon Dioxide Level 36 MMOL/L (21-32) Anion Gap -1 mmol/L (5-15) Blood Urea Nitrogen 22 mg/dL (7-18) Creatinine 0.7 MG/DL (0.55-1.30) Estimat Glomerular Filtration Rate > 60 mL/min (>60) Glucose Level 115 MG/DL (74-106) Calcium Level 8.0 MG/DL (8.5-10.1) Phosphorus Level 3.2 MG/DL (2.5-4.9) Magnesium Level 2.1 MG/DL (1.8-2.4) Total Bilirubin 1.1 MG/DL (0.2-1.0) Direct Bilirubin 0.6 MG/DL (0.0-0.3) Aspartate Amino Transf (AST/SGOT) 40 U/L (15-37) Alanine Aminotransferase (ALT/SGPT) 33 U/L (12-78) Alkaline Phosphatase 165 U/L (46-116) Total Protein 5.8 G/DL (6.4-8.2) Albumin 1.8 G/DL (3.4-5.0) Globulin 4.0 g/dL Albumin/Globulin Ratio 0.4 (1.0-2.7) Arterial Blood pH 7.431 (7.350-7.450) 7.367 (7.350-7.450) Arterial Blood Partial Pressure CO2 47.4 mmHg (35.0-45.0) 43.8 mmHg (35.0-45.0) Arterial Blood Partial Pressure O2 93.6 mmHg (75.0-100.0) 38.9 mmHg (75.0-100.0) Arterial Blood HCO3 30.8 mmol/L (22.0-26.0) 24.6 mmol/L (22.0-26.0) Arterial Blood Oxygen Saturation 97.3 % (95-100) 73.6 % (95-100) Arterial Blood Base Excess 5.7 (-2-2) -0.9 (-2-2) Steve Test Positive Positive Height (Feet): 5 Height (Inches): 3.00 Weight (Pounds): 292 Objective Physical Exam: Vitals: reviewed General: NAD HEENT: nc, at Neck: supple Chest: clear breath sounds on vent++ Cardiovascular: RRR, no s3, s4 Abdomen: soft, nontender, nd Extremities: no cce, normal range of motion Neuro: alert and oriented Ismael Fischer MD Nov 19, 2019 12:57
--- NOTE | 2019-11-19 13:25 | Emergency Room Report ---
Physical Exam Vital Signs Date Time Temp Pulse Resp B/P (MAP) Pulse Ox O2 Delivery O2 Flow Rate FiO2 11/15/19 07:00 16 162/88 Mechanical Ventilator 40 11/15/19 07:00 94 97 11/15/19 08:00 98.2 11/18/19 12:32 60.0 Medical Decision Making Diagnostic Impression: Primary Impression: 2019 novel coronavirus disease (COVID-19) Additional Impressions: Epistaxis Diabetes CHF (congestive heart failure) Hypoxia Multifocal pneumonia Afib Fluid overload ER Course Called the patient bedside for intubation. This a COVID-19 positive patient admitted for respiratory failure and CHF. Patient had been recently extubated but due to increased work of breathing required reintubation. She was reintubated under glide scope visualization with a 7.5 endotracheal tube. Initial x-ray showed tube was in the right mainstem and retracted. Subsequent chest x-ray shows endotracheal tube tip above the caity in satisfactory position. Remainder of care per ICU team. Recall as needed. Chest X-Ray Diagnostic Results Chest X-Ray Diagnostic Results : Chest X-Ray Ordered: Yes # of Views/Limited/Complete: 1 View Indication: Other - Intubation EP Interpretation: Yes Interpretation: other - Bilateral consolidations. Endotracheal tube tip in the right mainstem bronchus Impression: Other - Endotracheal tube tip right mainstem bronchus. Bilateral pneumonia. Electronically Signed by: Electronically signed by Dr. Nirmal Duncan Last Vital Signs Date Time Temp Pulse Resp B/P (MAP) Pulse Ox O2 Delivery O2 Flow Rate FiO2 11/19/19 13:06 83 20 Mechanical Ventilator 100 11/19/19 13:00 99.8 85/45 (58) 15 11/19/19 11:50 15.0 Disposition: ADMITTED INPATIENT Condition: Critical Referrals: NOT CHOSEN IPA/,REFERRING (PCP) Procedures Intubation Intubation : Consent: Emergent Intubation Method: orotracheal Tube Size (cm): 7.5 Medications: Etomidate, Rocuronium Breath Sounds after Intubation: equal Intubation Complications: no complications Post Intubation Xray: Yes Progress/Xray Impression: Endotracheal tube and right mainstem bronchus. Retracted. Subsequent ches Attempts: One Patient Tolerated: Well Complications: None Nirmal Duncan MD Nov 19, 2019 13:25
[2019-11-19] MEDS ORDERED: Norepinephrine 4mg/NS Premix 250 ML IV SCH (13:30)
--- NOTE | 2019-11-19 13:43 | Surgery Progress Note ---
Surgery Progress Note Subjective Procedure Performed Hemostasis of left nostril hemorrhage emergency Additional Comments groin line removed plan for extubation today no n/v/f/c Objective Last 24 Hour Vital Signs Date Time Temp Pulse Resp B/P (MAP) Pulse Ox O2 Delivery O2 Flow Rate FiO2 11/19/19 13:06 83 20 Mechanical Ventilator 100 11/19/19 13:00 83 20 100 11/19/19 13:00 100 11/19/19 13:00 99.8 79 20 85/45 (58) 15 11/19/19 12:53 20 83/60 Mechanical Ventilator 100 11/19/19 12:30 83 22 106/60 (75) 93 11/19/19 12:30 100 11/19/19 12:00 123 11/19/19 12:00 123 29 113/77 (89) 93 11/19/19 11:50 Non-Rebreather 15.0 100 11/19/19 11:30 10.0 40 11/19/19 11:00 98 20 144/93 (110) 89 11/19/19 10:46 87 36 11/19/19 10:30 85 20 148/76 (100) 100 11/19/19 10:00 91 25 162/81 (108) 82 11/19/19 09:30 91 21 115/82 (93) 98 11/19/19 09:11 40 11/19/19 09:10 100 11/19/19 09:00 76 13 115/67 (83) 100 11/19/19 08:30 86 18 116/72 (87) 97 11/19/19 08:09 91 128/63 11/19/19 08:00 92 11/19/19 08:00 40 11/19/19 08:00 21 128/63 Mechanical Ventilator 40 11/19/19 08:00 Mechanical Ventilator 11/19/19 08:00 98.6 82 18 128/63 (84) 97 11/19/19 07:27 84 18 40 11/19/19 07:00 73 18 109/89 (96) 100 11/19/19 07:00 18 109/89 Mechanical Ventilator 40 11/19/19 06:30 78 16 11/19/19 06:30 78 16 105/62 (76) 100 11/19/19 06:00 75 16 106/72 (83) 96 11/19/19 06:00 18 106/72 Mechanical Ventilator 40 11/19/19 05:30 76 14 125/76 (92) 96 11/19/19 05:00 79 14 133/73 (93) 100 11/19/19 05:00 14 133/73 Mechanical Ventilator 40 11/19/19 04:30 76 0 114/67 (83) 100 11/19/19 04:00 Mechanical Ventilator 11/19/19 04:00 74 11/19/19 04:00 40 11/19/19 04:00 12 100/51 Mechanical Ventilator 40 11/19/19 04:00 98.2 74 12 100/51 (67) 97 11/19/19 03:30 76 15 100/56 (71) 100 11/19/19 03:26 79 18 40 11/19/19 03:16 102 15 121/53 (75) 100 11/19/19 03:00 15 190/127 Mechanical Ventilator 40 11/19/19 03:00 102 15 190/127 (148) 91 11/19/19 02:30 77 13 144/84 (104) 100 11/19/19 02:00 69 18 111/69 (83) 100 11/19/19 02:00 18 111/69 Mechanical Ventilator 40 11/19/19 01:30 67 18 112/77 (89) 97 11/19/19 01:00 70 18 111/65 (80) 100 11/19/19 01:00 18 111/65 Mechanical Ventilator 40 11/19/19 00:30 67 17 130/54 (79) 100 11/19/19 00:00 40 11/19/19 00:00 98.0 68 15 124/77 (93) 96 11/19/19 00:00 15 124/77 Mechanical Ventilator 40 11/19/19 00:00 Mechanical Ventilator 11/18/19 23:30 69 20 125/69 (87) 100 11/18/19 23:30 64 18 40 11/18/19 23:22 60 11/18/19 23:00 65 17 87/59 (68) 100 11/18/19 23:00 17 87/59 Mechanical Ventilator 40 11/18/19 22:35 63 17 99/65 (76) 100 11/18/19 22:30 63 18 83/54 (64) 100 11/18/19 22:00 70 18 93/47 (62) 100 11/18/19 22:00 18 93/47 Mechanical Ventilator 40 11/18/19 21:30 88 18 159/74 (102) 100 11/18/19 21:05 84 150/67 11/18/19 21:00 75 18 150/67 (94) 97 11/18/19 21:00 18 150/67 Mechanical Ventilator 40 11/18/19 20:30 79 18 111/58 (75) 97 11/18/19 20:00 98.6 85 20 94/45 (61) 97 11/18/19 20:00 Mechanical Ventilator 11/18/19 20:00 40 11/18/19 20:00 20 94/45 Mechanical Ventilator 40 11/18/19 20:00 85 11/18/19 19:30 71 18 40 11/18/19 19:30 75 0 104/56 (72) 96 11/18/19 19:00 85 0 118/53 (74) 97 11/18/19 19:00 18 118/53 Mechanical Ventilator 40 11/18/19 18:30 87 19 150/69 (96) 98 11/18/19 18:00 87 16 133/66 (88) 98 11/18/19 18:00 18 133/66 Mechanical Ventilator 40 11/18/19 17:30 81 18 123/63 (83) 97 11/18/19 17:00 18 123/63 Mechanical Ventilator 40 11/18/19 17:00 76 18 100/58 (72) 98 11/18/19 16:30 73 18 103/50 (67) 100 11/18/19 16:00 Mechanical Ventilator 11/18/19 16:00 73 11/18/19 16:00 40 11/18/19 16:00 18 103/50 Mechanical Ventilator 40 11/18/19 16:00 98.0 80 18 94/52 (66) 96 11/18/19 15:44 72 18 40 11/18/19 15:30 75 18 94/55 (68) 99 11/18/19 15:00 18 138/75 Mechanical Ventilator 40 11/18/19 15:00 79 20 138/75 (96) 100 11/18/19 14:00 76 18 129/55 (79) 98 11/18/19 14:00 18 129/55 Mechanical Ventilator 40 I&O Intake and Output 11/18/19 11/19/19 19:00 07:00 Intake Total 807 ml 744 ml Output Total 440 ml 490 ml Balance 367 ml 254 ml Free Water 60 ml 100 ml IV Total 467 ml 144 ml Tube Feeding 280 ml 400 ml Other 100 ml Output Urine Total 440 ml 490 ml # Bowel Movements 2 Dressing: dry Wound: clean Cardiovascular: RSR Respiratory: decreased breath sounds Abdomen: soft, non-tender, present bowel sounds Extremities: edema, no tenderness, no cyanosis Laboratory Tests Test 11/18/19 20:33 11/18/19 20:37 11/18/19 20:49 11/18/19 23:50 POC Whole Blood Glucose 66 MG/DL (74-106) L 65 MG/DL (74-106) L 162 MG/DL (74-106) H 68 MG/DL (74-106) L Test 11/19/19 00:08 11/19/19 02:27 11/19/19 04:45 11/19/19 10:02 POC Whole Blood Glucose 73 MG/DL (74-106) L 86 MG/DL (74-106) White Blood Count 16.7 K/UL (4.8-10.8) H Red Blood Count 3.98 M/UL (4.20-5.40) L Hemoglobin 10.6 G/DL (12.0-16.0) L Hematocrit 35.6 % (37.0-47.0) L Mean Corpuscular Volume 90 FL (80-99) Mean Corpuscular Hemoglobin 26.6 PG (27.0-31.0) L Mean Corpuscular Hemoglobin Concent 29.7 G/DL (32.0-36.0) L Red Cell Distribution Width 16.7 % (11.6-14.8) H Platelet Count 257 K/UL (150-450) Mean Platelet Volume 6.8 FL (6.5-10.1) Neutrophils (%) (Auto) % (45.0-75.0) Lymphocytes (%) (Auto) % (20.0-45.0) Monocytes (%) (Auto) % (1.0-10.0) Eosinophils (%) (Auto) % (0.0-3.0) Basophils (%) (Auto) % (0.0-2.0) Differential Total Cells Counted 100 Neutrophils % (Manual) 92 % (45-75) H Lymphocytes % (Manual) 5 % (20-45) L Monocytes % (Manual) 3 % (1-10) Eosinophils % (Manual) 0 % (0-3) Basophils % (Manual) 0 % (0-2) Band Neutrophils 0 % (0-8) Platelet Estimate Adequate Platelet Morphology Normal Polychromasia 1+ Hypochromasia 1+ Anisocytosis 1+ Sodium Level 145 MMOL/L (136-145) Potassium Level 4.7 MMOL/L (3.5-5.1) Chloride Level 110 MMOL/L (98-107) H Carbon Dioxide Level 36 MMOL/L (21-32) H Anion Gap -1 mmol/L (5-15) L Blood Urea Nitrogen 22 mg/dL (7-18) H Creatinine 0.7 MG/DL (0.55-1.30) Estimat Glomerular Filtration Rate > 60 mL/min (>60) Glucose Level 115 MG/DL (74-106) H Calcium Level 8.0 MG/DL (8.5-10.1) L Phosphorus Level 3.2 MG/DL (2.5-4.9) Magnesium Level 2.1 MG/DL (1.8-2.4) Total Bilirubin 1.1 MG/DL (0.2-1.0) H Direct Bilirubin 0.6 MG/DL (0.0-0.3) H Aspartate Amino Transf (AST/SGOT) 40 U/L (15-37) H Alanine Aminotransferase (ALT/SGPT) 33 U/L (12-78) Alkaline Phosphatase 165 U/L (46-116) H Total Protein 5.8 G/DL (6.4-8.2) L Albumin 1.8 G/DL (3.4-5.0) L Globulin 4.0 g/dL Albumin/Globulin Ratio 0.4 (1.0-2.7) L Arterial Blood pH 7.431 (7.350-7.450) Arterial Blood Partial Pressure CO2 47.4 mmHg (35.0-45.0) H Arterial Blood Partial Pressure O2 93.6 mmHg (75.0-100.0) Arterial Blood HCO3 30.8 mmol/L (22.0-26.0) H Arterial Blood Oxygen Saturation 97.3 % (95-100) Arterial Blood Base Excess 5.7 (-2-2) H Steve Test Positive Test 11/19/19 12:44 Arterial Blood pH 7.367 (7.350-7.450) Arterial Blood Partial Pressure CO2 43.8 mmHg (35.0-45.0) Arterial Blood Partial Pressure O2 38.9 mmHg (75.0-100.0) Arterial Blood HCO3 24.6 mmol/L (22.0-26.0) Arterial Blood Oxygen Saturation 73.6 % (95-100) *L Arterial Blood Base Excess -0.9 (-2-2) Steve Test Positive Plan Problems: (1) Weak (2) UTI (urinary tract infection) (3) Hypoxia (4) Epistaxis Assessment & Plan: Severe after taxis left nostril Rhino Rocket placed hemostasis noted over the course 24 hours hemoglobin stable Lovenox been stopped. The balloon of both ports of the Rhino Rocket were deflated today. The rocket itself was not removed and will monitor over the course next 24 hours hemostasis. If so will gently remove and plan for local monitoring. Currently wean ventilator as tolerated. Goals of extubation when possible. deflated balloon 11/08 removed trumpet 11/09 will monitor for bleeding wean vent plan extubation discussed with pulm (5) Fluid overload Assessment & Plan: Continue central venous catheter for now. Will anticipate removal once patient stable for extubation. Thank you for allowing me to participate patient's care picc in line out (6) Diabetes (7) CHF (congestive heart failure) (8) Afib (9) Multifocal pneumonia (10) 2019 novel coronavirus disease (COVID-19) Assessment & Plan: + wean vent (11) Respiratory failure Ortiz Fleming Nov 19, 2019 13:43
--- NOTE | 2019-11-19 13:44 | Operative Note - PDOC ---
Operative Note Operative Note Date of Operation/Procedure: Nov 19, 2019 Pre-op Diagnosis: Hemorrhage Sepsis Respiratory insufficiency Procedure: Left femoral triple-lumen catheter removal Post-op Diagnosis: same as pre-op Anesthesia: local Specimen: none Complications: none Condition: stable Fluids: none Estimated Blood Loss: volume - 500 Drains: none Implant(s) used?: No Indications for Procedure 54-year-old female critically ill in ICU prior femoral line placed for emergency access now has a PICC line. Ready for removal of line Description of Procedure Patient was made comfortable the bedside. Dressings were removed. Sutures were cut. A triple-lumen left femoral line was removed pressure was held until hemostasis identified dressings applied. Ortiz Fleming Nov 19, 2019 13:44
--- NOTE | 2019-11-19 14:31 | Diagnostic Imaging Report ---
Procedure: XRAY Chest 1v Reason for study: Reason For Exam: PREOP Comparison films: 11/19/2019. FINDINGS: The endotracheal tube has been pulled back and is now at the thoracic inlet approximately 8 cm above the caity. Recommend advancement approximately 4 cm. Compared to prior study, there is been reexpansion of the left lung. Bilateral alveolar infiltrates noted. There is cardiomegaly. CP angles are sharp. The bony thorax appear unremarkable. IMPRESSION: Endotracheal tube has been pulled back since the previous exam and the tip is now at the thoracic inlet 8 cm above the caity. Recommend advancement 4 cm. Reexpansion of the left lung. Bilateral infiltrates. Findings called to ICU nurse 11/19/2019 at 2:25 PM
--- NOTE | 2019-11-19 14:34 | Diagnostic Imaging Report ---
Procedure: XRAY Chest 1v Reason for study: Shortness of breath. Status post intubation. Comparison films: 11/18/2019. FINDINGS: Compared to prior exam, endotracheal tube has descended into the right mainstem bronchus. There is complete white out of the left hemithorax likely complete left lung atelectasis. Patchy right lung infiltrate remain. Cardiac silhouette is partially obscured. No large effusion seen. The bony thorax appear unremarkable. IMPRESSION: Endotracheal tube has descended into the right mainstem bronchus and now there is complete white out of the left hemithorax likely complete atelectasis. Recommend pullback. Patchy right lung infiltrates. Findings called to ICU nurse.
--- NOTE | 2019-11-19 16:41 | Diagnostic Imaging Report ---
Indication: Reason For Exam: NGT Technique: Single AP view of the abdomen. Comparison: Abdominal radiograph dated 11/10/2019 Findings: Bowel gas pattern is nonobstructive. Enteric tube terminates below the diaphragm in the expected location of the gastric antrum. Lung bases demonstrate patchy and interstitial opacities, better evaluated on same-day chest radiograph. IMPRESSION: 1. Nonobstructive bowel gas pattern. 2. Enteric tube terminating in expected location of the gastric antrum.
--- NOTE | 2019-11-19 16:55 | Diagnostic Imaging Report ---
Indication: Reason For Exam: LINE Technique: Single AP view of the chest. Comparison: Chest radiograph dated 11/19/2019 at 1350 Findings: The cardiomediastinal silhouette is unchanged. Demonstration of bilateral airspace disease characterized by diffuse patchy airspace opacities and diffuse interstitial opacities, with bilateral midlung consolidation. No pneumothorax. No new pleural effusion. Interval advancement of endotracheal tube, now approaching the right main stem bronchus. IMPRESSION: 1. No significant change in pulmonary findings from prior examination. 2. Interval advancement of endotracheal tube, now approaching right mainstem bronchus. Retraction by approximately 2 cm is recommended. Findings communicated to treating nurse [place] at 1640 on 11/19/2019
[2019-11-19] MEDS: DOPamine 400mg/250ml 250 ML IV SCH (18:41)
[2019-11-19] MEDS: Norepinephrine 4mg/NS Premix 250 ML IV SCH (19:49)
[2019-11-19] MEDS: Dyna-Hex 2% Top Sol 2oz TOPIC SCH (20:09)
[2019-11-20] VITALS (53 sets, daily range): BP systolic 86–162; BP diastolic 42–108
[2019-11-20 04:41] LABS: HEMATOCRIT 35.5 % (37.0-47.0); HEMOGLOBIN 10.6 G/DL (12.0-16.0); MEAN CORPUSCULAR VOLUME 90 FL (80-99); PLATELET COUNT 264 K/UL (150-450); RED BLOOD COUNT 3.94 M/UL (4.20-5.40); RED CELL DISTRIBUTION WIDTH 17.5 % (11.6-14.8)
[2019-11-20 04:49] LABS: ANION GAP 0 mmol/L (5-15); BLOOD UREA NITROGEN 30 mg/dL (7-18); CALCIUM 8.7 MG/DL (8.5-10.1); CARBON DIOXIDE 35 MMOL/L (21-32); CHLORIDE 109 MMOL/L (98-107); POTASSIUM 5.7 MMOL/L (3.5-5.1); SODIUM 144 MMOL/L (136-145)
[2019-11-20] MEDS: NovoLOG Insulin Flexpen SUBQ SCH ×5 (06:00→23:36)
[2019-11-20] MEDS: fentaNYL 2500mcg/NS 250ml 250 ML IV SCH ×2 (06:03→19:52)
--- NOTE | 2019-11-20 06:50 | General Progress Note ---
Assessment/Plan Problem List: (1) Hypoxia ICD Codes: R09.02 - Hypoxemia SNOMED: 272310294 (2) CHF (congestive heart failure) ICD Codes: I50.9 - Heart failure, unspecified SNOMED: 19647348 (3) Diabetes ICD Codes: E11.9 - Type 2 diabetes mellitus without complications SNOMED: 11465639 (4) Fluid overload ICD Codes: E87.70 - Fluid overload, unspecified SNOMED: 90451192 (5) 2019 novel coronavirus disease (COVID-19) ICD Codes: U07.1 - COVID-19 SNOMED: 001851100 Status: unchanged Assessment/Plan: no need for basal insulin continue Novolog sliding scale every 6 hours hypoglycemia protocol in order Subjective ROS Limited/Unobtainable: Yes Allergies: Coded Allergies: No Known Allergies (Unverified , 11/06/19) Subjective events noted glucose values are stable without hypoglycemia Item Value Date Time Bedside Blood Glucose 96 mg/dl 11/20/19 0600 Bedside Blood Glucose 80 mg/dl 11/20/19 0000 Bedside Blood Glucose 83 mg/dl 11/19/19 1800 Bedside Blood Glucose 128 mg/dl H 11/19/19 1200 Bedside Blood Glucose 76 mg/dl 11/19/19 0532 Bedside Blood Glucose 86 mg/dl 11/19/19 0226 Objective Last 24 Hour Vital Signs Date Time Temp Pulse Resp B/P (MAP) Pulse Ox O2 Delivery O2 Flow Rate FiO2 11/20/19 06:30 74 20 11/20/19 06:30 20 123/58 Mechanical Ventilator 100 11/20/19 06:30 74 20 123/58 (79) 100 11/20/19 06:15 19 159/49 Mechanical Ventilator 100 11/20/19 06:03 20 151/75 Mechanical Ventilator 100 11/20/19 06:00 62 20 136/58 (84) 100 11/20/19 06:00 20 151/75 Mechanical Ventilator 100 11/20/19 05:30 72 20 160/69 (99) 100 11/20/19 05:00 15 136/57 Mechanical Ventilator 100 11/20/19 05:00 62 15 136/57 (83) 100 11/20/19 04:30 63 18 136/54 (81) 100 11/20/19 04:00 Mechanical Ventilator Mechanical Ventilator 11/20/19 04:00 100 11/20/19 04:00 18 150/63 Mechanical Ventilator 100 11/20/19 04:00 98.8 65 20 150/63 (92) 100 11/20/19 04:00 73 11/20/19 03:30 60 18 110/48 (68) 100 11/20/19 03:20 73 20 100 11/20/19 03:00 21 147/60 Mechanical Ventilator 100 11/20/19 03:00 63 21 147/60 (89) 100 11/20/19 02:30 66 18 122/60 (80) 100 11/20/19 02:00 16 91/72 Mechanical Ventilator 100 11/20/19 02:00 72 16 91/72 (78) 100 11/20/19 01:30 59 19 119/54 (75) 100 11/20/19 01:00 61 15 146/55 (85) 100 11/20/19 01:00 15 146/55 Mechanical Ventilator 100 11/20/19 00:30 70 23 109/71 (84) 100 11/20/19 00:00 55 11/20/19 00:00 Mechanical Ventilator Mechanical Ventilator 11/20/19 00:00 13 97/53 Mechanical Ventilator 100 11/20/19 00:00 98.3 57 14 97/55 (69) 100 11/20/19 00:00 100 11/19/19 23:30 55 12 107/52 (70) 100 11/19/19 23:00 55 20 108/57 (74) 100 11/19/19 23:00 20 108/57 Mechanical Ventilator 100 11/19/19 22:46 59 20 100 11/19/19 22:30 54 12 99/61 (74) 100 11/19/19 22:00 54 12 99/61 (74) 100 11/19/19 22:00 12 99/61 Mechanical Ventilator 100 11/19/19 21:30 81 20 116/65 (82) 100 11/19/19 21:00 60 12 95/55 (68) 98 11/19/19 21:00 18 95/55 Mechanical Ventilator 100 11/19/19 20:30 61 21 132/44 (73) 100 11/19/19 20:00 Mechanical Ventilator Mechanical Ventilator 11/19/19 20:00 19 103/73 Mechanical Ventilator 100 11/19/19 20:00 97.6 66 12 103/73 (83) 100 11/19/19 20:00 130 11/19/19 19:49 103/73 11/19/19 19:30 66 12 93/77 (82) 100 11/19/19 19:00 100 11/19/19 19:00 153/53 11/19/19 19:00 20 153/53 Mechanical Ventilator 100 11/19/19 19:00 61 14 153/53 (86) 100 11/19/19 18:52 54 20 100 11/19/19 18:45 65 7 128/87 (101) 100 11/19/19 18:41 127/22 11/19/19 18:30 57 19 127/22 (57) 100 11/19/19 18:27 51 20 97/56 (70) 100 11/19/19 18:00 57 20 109/39 (62) 100 11/19/19 18:00 20 109/39 Mechanical Ventilator 100 11/19/19 17:30 56 20 112/45 (67) 100 11/19/19 17:00 70 17 67/45 (52) 100 11/19/19 17:00 20 129/85 Mechanical Ventilator 100 11/19/19 16:30 66 15 102/47 (65) 100 11/19/19 16:00 Mechanical Ventilator Mechanical Ventilator 11/19/19 16:00 99.6 60 20 110/33 (58) 100 11/19/19 16:00 21 110/33 Mechanical Ventilator 100 11/19/19 16:00 58 11/19/19 15:45 64 20 117/65 (82) 100 11/19/19 15:31 63 18 102/65 (77) 100 11/19/19 15:00 67 20 125/66 (85) 100 11/19/19 15:00 21 125/66 Mechanical Ventilator 100 11/19/19 15:00 67 20 100 11/19/19 14:15 69 17 125/88 (100) 100 11/19/19 14:00 20 138/70 Mechanical Ventilator 100 11/19/19 14:00 70 19 138/70 (92) 93 11/19/19 13:50 100 11/19/19 13:46 82/51 11/19/19 13:45 72 20 54/41 (45) 93 11/19/19 13:30 20 82/51 Mechanical Ventilator 100 11/19/19 13:30 83 19 82/51 (61) 93 11/19/19 13:06 83 20 Mechanical Ventilator 100 11/19/19 13:00 83 20 100 11/19/19 13:00 100 11/19/19 13:00 20 85/45 Mechanical Ventilator 100 11/19/19 13:00 99.8 79 20 85/45 (58) 15 11/19/19 12:53 20 83/60 Mechanical Ventilator 100 11/19/19 12:30 83 22 106/60 (75) 93 11/19/19 12:30 100 11/19/19 12:00 123 11/19/19 12:00 123 29 113/77 (89) 93 11/19/19 12:00 Mechanical Ventilator Mechanical Ventilator 11/19/19 11:50 Non-Rebreather 15.0 100 11/19/19 11:30 10.0 40 11/19/19 11:00 98 20 144/93 (110) 89 11/19/19 10:46 87 36 11/19/19 10:30 85 20 148/76 (100) 100 11/19/19 10:00 91 25 162/81 (108) 82 11/19/19 09:30 91 21 115/82 (93) 98 11/19/19 09:11 40 11/19/19 09:10 100 11/19/19 09:00 76 13 115/67 (83) 100 11/19/19 08:30 86 18 116/72 (87) 97 11/19/19 08:09 91 128/63 11/19/19 08:00 92 11/19/19 08:00 40 11/19/19 08:00 21 128/63 Mechanical Ventilator 40 11/19/19 08:00 Mechanical Ventilator 11/19/19 08:00 98.6 82 18 128/63 (84) 97 11/19/19 07:27 84 18 40 11/19/19 07:00 73 18 109/89 (96) 100 11/19/19 07:00 18 109/89 Mechanical Ventilator 40 Intake and Output 11/19/19 11/20/19 19:00 07:00 Intake Total 598.4441 ml 884.75 ml Output Total 300 ml 335 ml Balance 298.4441 ml 549.75 ml Free Water 200 ml 300 ml IV Total 198.4441 ml 144.75 ml Tube Feeding 100 ml 440 ml Other 100 ml Output Urine Total 300 ml 335 ml # Bowel Movements 1 Laboratory Tests 11/19/19 10:02: Arterial Blood pH 7.431, Arterial Blood Partial Pressure CO2 47.4H, Arterial Blood Partial Pressure O2 93.6, Arterial Blood HCO3 30.8H, Arterial Blood Oxygen Saturation 97.3, Arterial Blood Base Excess 5.7H, Steve Test Positive 11/19/19 12:44: Arterial Blood pH 7.367, Arterial Blood Partial Pressure CO2 43.8, Arterial Blood Partial Pressure O2 38.9*L, Arterial Blood HCO3 24.6, Arterial Blood Oxygen Saturation 73.6*L, Arterial Blood Base Excess -0.9, Steve Test Positive 11/19/19 12:50: POC Whole Blood Glucose 128H 11/19/19 17:20: POC Whole Blood Glucose 61L 11/19/19 17:21: POC Whole Blood Glucose 83 11/19/19 23:43: POC Whole Blood Glucose [Pending] 11/20/19 03:55: White Blood Count 19.0H, Red Blood Count 3.94L, Hemoglobin 10.6L, Hematocrit 35.5L, Mean Corpuscular Volume 90, Mean Corpuscular Hemoglobin 26.8L, Mean Corpuscular Hemoglobin Concent 29.8L, Red Cell Distribution Width 17.5H, Platelet Count 264, Mean Platelet Volume 7.0, Neutrophils (%) (Auto) , Lymphocytes (%) (Auto) , Monocytes (%) (Auto) , Eosinophils (%) (Auto) , Basophils (%) (Auto) , Neutrophils % (Manual) [Pending], Lymphocytes % (Manual) [Pending], Platelet Estimate [Pending], Platelet Morphology [Pending], Sodium Level 144, Potassium Level 5.7H, Chloride Level 109H, Carbon Dioxide Level 35H, Anion Gap 0L, Blood Urea Nitrogen 30H, Creatinine 1.0, Estimat Glomerular Filtration Rate 58.0, Glucose Level 111H, Calcium Level 8.7 Height (Feet): 5 Height (Inches): 3.00 Weight (Pounds): 319 General Appearance: lethargic Objective Current Medications Medications (Trade) Dose Ordered Sig/Robyn Route PRN Reason Start Time Stop Time Status Last Admin Dose Admin Acetaminophen (Tylenol) 650 mg Q6H PRN NG Temp >100.5 11/12/19 00:15 12/12/19 00:14 11/16/19 09:02 Chlorhexidine Gluconate (Miya-Hex 2%) 1 applic DAILY@2000 TOPIC 11/08/19 21:30 02/06/20 21:29 11/19/19 20:09 Clonidine HCl (Catapres Tab) 0.1 mg Q4H PRN NG For High Blood Pressure 11/13/19 17:00 02/09/20 10:59 Dextrose (Dextrose 50%) 25 ml Q30M PRN IV Hypoglycemia 11/08/19 12:30 02/05/20 02:59 11/18/19 23:54 Dextrose (Dextrose 50%) 50 ml Q30M PRN IV Hypoglycemia 11/08/19 12:30 02/05/20 02:59 Dopamine HCl/ Dextrose 250 ml @ 0 mls/hr Q24H IV 11/19/19 18:36 02/17/20 18:35 11/19/19 18:41 Famotidine (Pepcid I.v.) 20 mg Q12HR IVP 11/08/19 15:30 12/08/19 15:29 11/19/19 20:09 Fentanyl Citrate 250 ml @ 0 mls/hr Q24H IV 11/19/19 12:15 02/17/20 12:14 11/20/19 06:03 Folic Acid (Folate) 2 mg DAILY GT 11/15/19 09:00 12/15/19 08:59 11/19/19 08:09 Insulin Aspart (NovoLOG) EVERY 6 HOURS SUBQ 11/15/19 12:00 02/11/20 20:59 11/18/19 05:17 Lorazepam (Ativan 2mg/ml 1ml) 1 mg Q4H PRN IV For Anxiety 11/14/19 10:00 11/21/19 09:59 11/16/19 09:00 Norepinephrine Bitartrate 250 ml @ 0 mls/hr Q24H IV 11/19/19 19:49 02/17/20 19:48 Alphonse Ojeda MD Nov 20, 2019 06:50
--- NOTE | 2019-11-20 08:14 | Pulmonology Progress Note ---
Subjective ROS Limited/Unobtainable: Yes Interval Events: Re-intubated on 11/19/19; Constitutional: Denies: fever HEENT: Repors: no symptoms Respiratory: Reports: dry cough, shortness of breath Cardiovascular: Reports: no symptoms Gastrointestinal/Abdominal: Reports: no symptoms Allergies: Coded Allergies: No Known Allergies (Unverified , 11/06/19) All Systems: reviewed and negative except above Objective Last 24 Hour Vital Signs Date Time Temp Pulse Resp B/P (MAP) Pulse Ox O2 Delivery O2 Flow Rate FiO2 11/20/19 07:00 22 143/66 Mechanical Ventilator 100 11/20/19 07:00 67 22 143/66 (91) 100 11/20/19 06:45 20 129/67 Mechanical Ventilator 100 11/20/19 06:30 74 20 11/20/19 06:30 20 123/58 Mechanical Ventilator 100 11/20/19 06:30 74 20 123/58 (79) 100 11/20/19 06:15 19 159/49 Mechanical Ventilator 100 11/20/19 06:03 20 151/75 Mechanical Ventilator 100 11/20/19 06:00 62 20 136/58 (84) 100 11/20/19 06:00 20 151/75 Mechanical Ventilator 100 11/20/19 05:30 72 20 160/69 (99) 100 11/20/19 05:00 15 136/57 Mechanical Ventilator 100 11/20/19 05:00 62 15 136/57 (83) 100 11/20/19 04:30 63 18 136/54 (81) 100 11/20/19 04:00 Mechanical Ventilator Mechanical Ventilator 11/20/19 04:00 100 11/20/19 04:00 18 150/63 Mechanical Ventilator 100 11/20/19 04:00 98.8 65 20 150/63 (92) 100 11/20/19 04:00 73 11/20/19 03:30 60 18 110/48 (68) 100 11/20/19 03:20 73 20 100 11/20/19 03:00 21 147/60 Mechanical Ventilator 100 11/20/19 03:00 63 21 147/60 (89) 100 11/20/19 02:30 66 18 122/60 (80) 100 11/20/19 02:00 16 91/72 Mechanical Ventilator 100 11/20/19 02:00 72 16 91/72 (78) 100 11/20/19 01:30 59 19 119/54 (75) 100 11/20/19 01:00 61 15 146/55 (85) 100 11/20/19 01:00 15 146/55 Mechanical Ventilator 100 11/20/19 00:30 70 23 109/71 (84) 100 11/20/19 00:00 55 11/20/19 00:00 Mechanical Ventilator Mechanical Ventilator 11/20/19 00:00 13 97/53 Mechanical Ventilator 100 11/20/19 00:00 98.3 57 14 97/55 (69) 100 11/20/19 00:00 100 11/19/19 23:30 55 12 107/52 (70) 100 11/19/19 23:00 55 20 108/57 (74) 100 11/19/19 23:00 20 108/57 Mechanical Ventilator 100 11/19/19 22:46 59 20 100 11/19/19 22:30 54 12 99/61 (74) 100 11/19/19 22:00 54 12 99/61 (74) 100 11/19/19 22:00 12 99/61 Mechanical Ventilator 100 11/19/19 21:30 81 20 116/65 (82) 100 11/19/19 21:00 60 12 95/55 (68) 98 11/19/19 21:00 18 95/55 Mechanical Ventilator 100 11/19/19 20:30 61 21 132/44 (73) 100 11/19/19 20:00 Mechanical Ventilator Mechanical Ventilator 11/19/19 20:00 19 103/73 Mechanical Ventilator 100 11/19/19 20:00 97.6 66 12 103/73 (83) 100 11/19/19 20:00 130 11/19/19 19:49 103/73 11/19/19 19:30 66 12 93/77 (82) 100 11/19/19 19:00 100 11/19/19 19:00 153/53 11/19/19 19:00 20 153/53 Mechanical Ventilator 100 11/19/19 19:00 61 14 153/53 (86) 100 11/19/19 18:52 54 20 100 11/19/19 18:45 65 7 128/87 (101) 100 11/19/19 18:41 127/22 11/19/19 18:30 57 19 127/22 (57) 100 11/19/19 18:27 51 20 97/56 (70) 100 11/19/19 18:00 57 20 109/39 (62) 100 11/19/19 18:00 20 109/39 Mechanical Ventilator 100 11/19/19 17:30 56 20 112/45 (67) 100 11/19/19 17:00 70 17 67/45 (52) 100 11/19/19 17:00 20 129/85 Mechanical Ventilator 100 11/19/19 16:30 66 15 102/47 (65) 100 11/19/19 16:00 Mechanical Ventilator Mechanical Ventilator 11/19/19 16:00 99.6 60 20 110/33 (58) 100 11/19/19 16:00 21 110/33 Mechanical Ventilator 100 11/19/19 16:00 58 11/19/19 15:45 64 20 117/65 (82) 100 11/19/19 15:31 63 18 102/65 (77) 100 11/19/19 15:00 67 20 125/66 (85) 100 11/19/19 15:00 21 125/66 Mechanical Ventilator 100 11/19/19 15:00 67 20 100 11/19/19 14:15 69 17 125/88 (100) 100 11/19/19 14:00 20 138/70 Mechanical Ventilator 100 11/19/19 14:00 70 19 138/70 (92) 93 11/19/19 13:50 100 11/19/19 13:46 82/51 11/19/19 13:45 72 20 54/41 (45) 93 11/19/19 13:30 20 82/51 Mechanical Ventilator 100 11/19/19 13:30 83 19 82/51 (61) 93 11/19/19 13:06 83 20 Mechanical Ventilator 100 11/19/19 13:00 83 20 100 11/19/19 13:00 100 11/19/19 13:00 20 85/45 Mechanical Ventilator 100 11/19/19 13:00 99.8 79 20 85/45 (58) 15 11/19/19 12:53 20 83/60 Mechanical Ventilator 100 11/19/19 12:30 83 22 106/60 (75) 93 11/19/19 12:30 100 11/19/19 12:00 123 11/19/19 12:00 123 29 113/77 (89) 93 11/19/19 12:00 Mechanical Ventilator Mechanical Ventilator 11/19/19 11:50 Non-Rebreather 15.0 100 11/19/19 11:30 10.0 40 11/19/19 11:00 98 20 144/93 (110) 89 11/19/19 10:46 87 36 11/19/19 10:30 85 20 148/76 (100) 100 11/19/19 10:00 91 25 162/81 (108) 82 11/19/19 09:30 91 21 115/82 (93) 98 11/19/19 09:11 40 11/19/19 09:10 100 11/19/19 09:00 76 13 115/67 (83) 100 11/19/19 08:30 86 18 116/72 (87) 97 Intake and Output 11/19/19 11/20/19 19:00 07:00 Intake Total 598.4441 ml 932.25 ml Output Total 300 ml 355 ml Balance 298.4441 ml 577.25 ml Free Water 200 ml 300 ml IV Total 198.4441 ml 152.25 ml Tube Feeding 100 ml 480 ml Other 100 ml Output Urine Total 300 ml 355 ml # Bowel Movements 1 General Appearance: no acute distress HEENT: normocephalic Respiratory: decreased breath sounds Cardiovascular: normal peripheral pulses Abdomen: normal bowel sounds Extremities: no cyanosis Laboratory Tests 11/19/19 10:02: Arterial Blood pH 7.431, Arterial Blood Partial Pressure CO2 47.4H, Arterial Blood Partial Pressure O2 93.6, Arterial Blood HCO3 30.8H, Arterial Blood Oxygen Saturation 97.3, Arterial Blood Base Excess 5.7H, Steve Test Positive 11/19/19 12:44: Arterial Blood pH 7.367, Arterial Blood Partial Pressure CO2 43.8, Arterial Blood Partial Pressure O2 38.9*L, Arterial Blood HCO3 24.6, Arterial Blood Oxygen Saturation 73.6*L, Arterial Blood Base Excess -0.9, Steve Test Positive 11/19/19 12:50: POC Whole Blood Glucose 128H 11/19/19 17:20: POC Whole Blood Glucose 61L 11/19/19 17:21: POC Whole Blood Glucose 83 11/19/19 23:43: POC Whole Blood Glucose [Pending] 11/20/19 03:55: White Blood Count 19.0H, Red Blood Count 3.94L, Hemoglobin 10.6L, Hematocrit 35.5L, Mean Corpuscular Volume 90, Mean Corpuscular Hemoglobin 26.8L, Mean Corpuscular Hemoglobin Concent 29.8L, Red Cell Distribution Width 17.5H, Platelet Count 264, Mean Platelet Volume 7.0, Neutrophils (%) (Auto) , Lymphocytes (%) (Auto) , Monocytes (%) (Auto) , Eosinophils (%) (Auto) , Basophils (%) (Auto) , Neutrophils % (Manual) [Pending], Lymphocytes % (Manual) [Pending], Platelet Estimate [Pending], Platelet Morphology [Pending], Sodium Level 144, Potassium Level 5.7H, Chloride Level 109H, Carbon Dioxide Level 35H, Anion Gap 0L, Blood Urea Nitrogen 30H, Creatinine 1.0, Estimat Glomerular Filtration Rate 58.0, Glucose Level 111H, Calcium Level 8.7 11/20/19 07:35: Arterial Blood pH 7.387, Arterial Blood Partial Pressure CO2 49.5H, Arterial Blood Partial Pressure O2 195.0H, Arterial Blood HCO3 29.1H, Arterial Blood Oxygen Saturation 99.2, Arterial Blood Base Excess 3.3H, Steve Test Positive Current Medications Medications (Trade) Dose Ordered Sig/Robyn Route PRN Reason Start Time Stop Time Status Last Admin Dose Admin Acetaminophen (Tylenol) 650 mg Q6H PRN NG Temp >100.5 11/12/19 00:15 12/12/19 00:14 11/16/19 09:02 Chlorhexidine Gluconate (Miya-Hex 2%) 1 applic DAILY@2000 TOPIC 11/08/19 21:30 02/06/20 21:29 11/19/19 20:09 Clonidine HCl (Catapres Tab) 0.1 mg Q4H PRN NG For High Blood Pressure 11/13/19 17:00 02/09/20 10:59 Dextrose (Dextrose 50%) 25 ml Q30M PRN IV Hypoglycemia 11/08/19 12:30 02/05/20 02:59 11/18/19 23:54 Dextrose (Dextrose 50%) 50 ml Q30M PRN IV Hypoglycemia 11/08/19 12:30 02/05/20 02:59 Dopamine HCl/ Dextrose 250 ml @ 0 mls/hr Q24H IV 11/19/19 18:36 02/17/20 18:35 11/19/19 18:41 Famotidine (Pepcid I.v.) 20 mg Q12HR IVP 11/08/19 15:30 12/08/19 15:29 11/19/19 20:09 Fentanyl Citrate 250 ml @ 0 mls/hr Q24H IV 11/19/19 12:15 02/17/20 12:14 11/20/19 06:03 Folic Acid (Folate) 2 mg DAILY GT 11/15/19 09:00 12/15/19 08:59 11/19/19 08:09 Insulin Aspart (NovoLOG) EVERY 6 HOURS SUBQ 11/15/19 12:00 02/11/20 20:59 11/18/19 05:17 Lorazepam (Ativan 2mg/ml 1ml) 1 mg Q4H PRN IV For Anxiety 11/14/19 10:00 11/21/19 09:59 11/16/19 09:00 Norepinephrine Bitartrate 250 ml @ 0 mls/hr Q24H IV 11/19/19 19:49 02/17/20 19:48 Assessment/Plan Assessment/Plan IMPRESSION: 1. COVID-19 pneumonia. 2. Diabetes mellitus and hypertension. 3. Lactic acidemia. 4. Epistaxis 5. Respiratory failure; failed extubation DISCUSSION: Careful and close monitoring. Continue medications May need tracheostomy On fentanyl pressors prn I will follow carefully. Lakeisha Zavaleta Omar Syed MD Nov 20, 2019 08:14
--- NOTE | 2019-11-20 09:17 | General Progress Note ---
Assessment/Plan Problem List: (1) Afib ICD Codes: I48.91 - Unspecified atrial fibrillation SNOMED: 39308173 (2) Epistaxis ICD Codes: R04.0 - Epistaxis SNOMED: 068242873 (3) Weak ICD Codes: R53.1 - Weakness SNOMED: 52371557 (4) UTI (urinary tract infection) ICD Codes: N39.0 - Urinary tract infection, site not specified SNOMED: 85170916 (5) Diabetes ICD Codes: E11.9 - Type 2 diabetes mellitus without complications SNOMED: 00544936 (6) CHF (congestive heart failure) ICD Codes: I50.9 - Heart failure, unspecified SNOMED: 72132942 (7) Multifocal pneumonia ICD Codes: J18.9 - Pneumonia, unspecified organism SNOMED: 555439829 (8) 2019 novel coronavirus disease (COVID-19) ICD Codes: U07.1 - COVID-19 SNOMED: 223002204 (9) Respiratory failure ICD Codes: J96.90 - Respiratory failure, unspecified, unspecified whether with hypoxia or hypercapnia SNOMED: 676556439 Status: unchanged Assessment/Plan: vent abx bp bs control cbc bmp am Subjective Constitutional: Reports: weakness Allergies: Coded Allergies: No Known Allergies (Unverified , 11/06/19) All Systems: reviewed and negative except above Subjective intub sedated in icu Objective Last 24 Hour Vital Signs Date Time Temp Pulse Resp B/P (MAP) Pulse Ox O2 Delivery O2 Flow Rate FiO2 11/20/19 09:00 123 14 162/108 (126) 100 11/20/19 08:30 113 21 144/86 (105) 100 11/20/19 08:00 Mechanical Ventilator Mechanical Ventilator 11/20/19 08:00 80 11/20/19 08:00 112 11/20/19 08:00 120 13 140/81 (100) 100 11/20/19 07:50 80 11/20/19 07:30 62 20 100 11/20/19 07:30 124 18 126/76 (93) 100 11/20/19 07:00 22 143/66 Mechanical Ventilator 100 11/20/19 07:00 67 22 143/66 (91) 100 11/20/19 06:45 20 129/67 Mechanical Ventilator 100 11/20/19 06:30 74 20 11/20/19 06:30 20 123/58 Mechanical Ventilator 100 11/20/19 06:30 74 20 123/58 (79) 100 11/20/19 06:15 19 159/49 Mechanical Ventilator 100 11/20/19 06:03 20 151/75 Mechanical Ventilator 100 11/20/19 06:00 62 20 136/58 (84) 100 11/20/19 06:00 20 151/75 Mechanical Ventilator 100 11/20/19 05:30 72 20 160/69 (99) 100 11/20/19 05:00 15 136/57 Mechanical Ventilator 100 11/20/19 05:00 62 15 136/57 (83) 100 11/20/19 04:30 63 18 136/54 (81) 100 11/20/19 04:00 Mechanical Ventilator Mechanical Ventilator 11/20/19 04:00 100 11/20/19 04:00 18 150/63 Mechanical Ventilator 100 11/20/19 04:00 98.8 65 20 150/63 (92) 100 11/20/19 04:00 73 11/20/19 03:30 60 18 110/48 (68) 100 11/20/19 03:20 73 20 100 11/20/19 03:00 21 147/60 Mechanical Ventilator 100 11/20/19 03:00 63 21 147/60 (89) 100 11/20/19 02:30 66 18 122/60 (80) 100 11/20/19 02:00 16 91/72 Mechanical Ventilator 100 11/20/19 02:00 72 16 91/72 (78) 100 11/20/19 01:30 59 19 119/54 (75) 100 11/20/19 01:00 61 15 146/55 (85) 100 11/20/19 01:00 15 146/55 Mechanical Ventilator 100 11/20/19 00:30 70 23 109/71 (84) 100 11/20/19 00:00 55 11/20/19 00:00 Mechanical Ventilator Mechanical Ventilator 11/20/19 00:00 13 97/53 Mechanical Ventilator 100 11/20/19 00:00 98.3 57 14 97/55 (69) 100 11/20/19 00:00 100 11/19/19 23:30 55 12 107/52 (70) 100 11/19/19 23:00 55 20 108/57 (74) 100 11/19/19 23:00 20 108/57 Mechanical Ventilator 100 11/19/19 22:46 59 20 100 11/19/19 22:30 54 12 99/61 (74) 100 11/19/19 22:00 54 12 99/61 (74) 100 11/19/19 22:00 12 99/61 Mechanical Ventilator 100 11/19/19 21:30 81 20 116/65 (82) 100 11/19/19 21:00 60 12 95/55 (68) 98 11/19/19 21:00 18 95/55 Mechanical Ventilator 100 11/19/19 20:30 61 21 132/44 (73) 100 11/19/19 20:00 Mechanical Ventilator Mechanical Ventilator 11/19/19 20:00 19 103/73 Mechanical Ventilator 100 11/19/19 20:00 97.6 66 12 103/73 (83) 100 11/19/19 20:00 130 11/19/19 19:49 103/73 11/19/19 19:30 66 12 93/77 (82) 100 11/19/19 19:00 100 11/19/19 19:00 153/53 11/19/19 19:00 20 153/53 Mechanical Ventilator 100 11/19/19 19:00 61 14 153/53 (86) 100 11/19/19 18:52 54 20 100 11/19/19 18:45 65 7 128/87 (101) 100 11/19/19 18:41 127/22 11/19/19 18:30 57 19 127/22 (57) 100 11/19/19 18:27 51 20 97/56 (70) 100 11/19/19 18:00 57 20 109/39 (62) 100 11/19/19 18:00 20 109/39 Mechanical Ventilator 100 11/19/19 17:30 56 20 112/45 (67) 100 11/19/19 17:00 70 17 67/45 (52) 100 11/19/19 17:00 20 129/85 Mechanical Ventilator 100 11/19/19 16:30 66 15 102/47 (65) 100 11/19/19 16:00 Mechanical Ventilator Mechanical Ventilator 11/19/19 16:00 99.6 60 20 110/33 (58) 100 11/19/19 16:00 21 110/33 Mechanical Ventilator 100 7/30/20 16:00 58 11/19/19 15:45 64 20 117/65 (82) 100 11/19/19 15:31 63 18 102/65 (77) 100 11/19/19 15:00 67 20 125/66 (85) 100 11/19/19 15:00 21 125/66 Mechanical Ventilator 100 11/19/19 15:00 67 20 100 11/19/19 14:15 69 17 125/88 (100) 100 11/19/19 14:00 20 138/70 Mechanical Ventilator 100 11/19/19 14:00 70 19 138/70 (92) 93 11/19/19 13:50 100 11/19/19 13:46 82/51 11/19/19 13:45 72 20 54/41 (45) 93 11/19/19 13:30 20 82/51 Mechanical Ventilator 100 11/19/19 13:30 83 19 82/51 (61) 93 11/19/19 13:06 83 20 Mechanical Ventilator 100 11/19/19 13:00 83 20 100 11/19/19 13:00 100 11/19/19 13:00 20 85/45 Mechanical Ventilator 100 11/19/19 13:00 99.8 79 20 85/45 (58) 15 11/19/19 12:53 20 83/60 Mechanical Ventilator 100 11/19/19 12:30 83 22 106/60 (75) 93 11/19/19 12:30 100 11/19/19 12:00 123 11/19/19 12:00 123 29 113/77 (89) 93 11/19/19 12:00 Mechanical Ventilator Mechanical Ventilator 11/19/19 11:50 Non-Rebreather 15.0 100 11/19/19 11:30 10.0 40 11/19/19 11:00 98 20 144/93 (110) 89 11/19/19 10:46 87 36 11/19/19 10:30 85 20 148/76 (100) 100 11/19/19 10:00 91 25 162/81 (108) 82 11/19/19 09:30 91 21 115/82 (93) 98 Intake and Output 11/19/19 11/20/19 19:00 07:00 Intake Total 598.4441 ml 932.25 ml Output Total 300 ml 355 ml Balance 298.4441 ml 577.25 ml Free Water 200 ml 300 ml IV Total 198.4441 ml 152.25 ml Tube Feeding 100 ml 480 ml Other 100 ml Output Urine Total 300 ml 355 ml # Bowel Movements 1 Laboratory Tests 11/19/19 10:02: Arterial Blood pH 7.431, Arterial Blood Partial Pressure CO2 47.4H, Arterial Blood Partial Pressure O2 93.6, Arterial Blood HCO3 30.8H, Arterial Blood Oxygen Saturation 97.3, Arterial Blood Base Excess 5.7H, Steve Test Positive 11/19/19 12:44: Arterial Blood pH 7.367, Arterial Blood Partial Pressure CO2 43.8, Arterial Blood Partial Pressure O2 38.9*L, Arterial Blood HCO3 24.6, Arterial Blood Oxygen Saturation 73.6*L, Arterial Blood Base Excess -0.9, Steve Test Positive 11/19/19 12:50: POC Whole Blood Glucose 128H 11/19/19 17:20: POC Whole Blood Glucose 61L 11/19/19 17:21: POC Whole Blood Glucose 83 11/19/19 23:43: POC Whole Blood Glucose [Pending] 11/20/19 03:55: White Blood Count 19.0H, Red Blood Count 3.94L, Hemoglobin 10.6L, Hematocrit 35.5L, Mean Corpuscular Volume 90, Mean Corpuscular Hemoglobin 26.8L, Mean Corpuscular Hemoglobin Concent 29.8L, Red Cell Distribution Width 17.5H, Platelet Count 264, Mean Platelet Volume 7.0, Neutrophils (%) (Auto) , Lymphocytes (%) (Auto) , Monocytes (%) (Auto) , Eosinophils (%) (Auto) , Basophils (%) (Auto) , Neutrophils % (Manual) [Pending], Lymphocytes % (Manual) [Pending], Platelet Estimate [Pending], Platelet Morphology [Pending], Sodium Level 144, Potassium Level 5.7H, Chloride Level 109H, Carbon Dioxide Level 35H, Anion Gap 0L, Blood Urea Nitrogen 30H, Creatinine 1.0, Estimat Glomerular Filtration Rate 58.0, Glucose Level 111H, Calcium Level 8.7 11/20/19 07:35: Arterial Blood pH 7.387, Arterial Blood Partial Pressure CO2 49.5H, Arterial Blood Partial Pressure O2 195.0H, Arterial Blood HCO3 29.1H, Arterial Blood Oxygen Saturation 99.2, Arterial Blood Base Excess 3.3H, Steve Test Positive 11/20/19 08:35: Potassium Level 4.6 Height (Feet): 5 Height (Inches): 3.00 Weight (Pounds): 319 General Appearance: lethargic EENT: normal ENT inspection Neck: normal alignment Cardiovascular: normal rate, regular rhythm Respiratory/Chest: no respiratory distress, no accessory muscle use Extremities: normal inspection Skin: normal pigmentation Gustabo Carter DO Nov 20, 2019 09:17
--- NOTE | 2019-11-20 09:28 | Cardiac Electrophysiology PN ---
Assessment/Plan Assessment/Plan 1. Paroxysmal atrial fibrillation. Resume metoprolol 25 q 12 and add Amiodarone 400 q 12 hr. Off Eliquis in view of hematuria and black stool EF 55% on echo. 2. S/P Shock. Off pressors now. BP high again. Resume Lopressor 25 bid 3. COVID positive pneumonia. S/P Remdesevir and dexamethasone. 4. Diabetes, on insulin. 5. Respiratory failure on the Vent. 6. S/P Massive nasal bleed. DW CHASER TAR Subjective Subjective In ICU on the vent with 40% Fio2.In and out of atrial fib. Hematuria and black stool improved off anticoagulation. Started on Dopamine for hypotension and sinus tra but developed tachycardia and changed to Levophed and now is DCed again. In atrial fib rate controlled . Objective Last 24 Hour Vital Signs Date Time Temp Pulse Resp B/P (MAP) Pulse Ox O2 Delivery O2 Flow Rate FiO2 11/20/19 09:00 123 14 162/108 (126) 100 11/20/19 08:30 113 21 144/86 (105) 100 11/20/19 08:00 Mechanical Ventilator Mechanical Ventilator 11/20/19 08:00 80 11/20/19 08:00 112 11/20/19 08:00 120 13 140/81 (100) 100 11/20/19 07:50 80 11/20/19 07:30 62 20 100 11/20/19 07:30 124 18 126/76 (93) 100 11/20/19 07:00 22 143/66 Mechanical Ventilator 100 11/20/19 07:00 67 22 143/66 (91) 100 11/20/19 06:45 20 129/67 Mechanical Ventilator 100 11/20/19 06:30 74 20 11/20/19 06:30 20 123/58 Mechanical Ventilator 100 11/20/19 06:30 74 20 123/58 (79) 100 11/20/19 06:15 19 159/49 Mechanical Ventilator 100 11/20/19 06:03 20 151/75 Mechanical Ventilator 100 11/20/19 06:00 62 20 136/58 (84) 100 11/20/19 06:00 20 151/75 Mechanical Ventilator 100 11/20/19 05:30 72 20 160/69 (99) 100 11/20/19 05:00 15 136/57 Mechanical Ventilator 100 11/20/19 05:00 62 15 136/57 (83) 100 11/20/19 04:30 63 18 136/54 (81) 100 11/20/19 04:00 Mechanical Ventilator Mechanical Ventilator 11/20/19 04:00 100 11/20/19 04:00 18 150/63 Mechanical Ventilator 100 11/20/19 04:00 98.8 65 20 150/63 (92) 100 11/20/19 04:00 73 11/20/19 03:30 60 18 110/48 (68) 100 11/20/19 03:20 73 20 100 11/20/19 03:00 21 147/60 Mechanical Ventilator 100 11/20/19 03:00 63 21 147/60 (89) 100 11/20/19 02:30 66 18 122/60 (80) 100 11/20/19 02:00 16 91/72 Mechanical Ventilator 100 11/20/19 02:00 72 16 91/72 (78) 100 11/20/19 01:30 59 19 119/54 (75) 100 11/20/19 01:00 61 15 146/55 (85) 100 11/20/19 01:00 15 146/55 Mechanical Ventilator 100 11/20/19 00:30 70 23 109/71 (84) 100 11/20/19 00:00 55 11/20/19 00:00 Mechanical Ventilator Mechanical Ventilator 11/20/19 00:00 13 97/53 Mechanical Ventilator 100 11/20/19 00:00 98.3 57 14 97/55 (69) 100 11/20/19 00:00 100 11/19/19 23:30 55 12 107/52 (70) 100 11/19/19 23:00 55 20 108/57 (74) 100 11/19/19 23:00 20 108/57 Mechanical Ventilator 100 11/19/19 22:46 59 20 100 11/19/19 22:30 54 12 99/61 (74) 100 11/19/19 22:00 54 12 99/61 (74) 100 11/19/19 22:00 12 99/61 Mechanical Ventilator 100 11/19/19 21:30 81 20 116/65 (82) 100 11/19/19 21:00 60 12 95/55 (68) 98 11/19/19 21:00 18 95/55 Mechanical Ventilator 100 7/30/20 20:30 61 21 132/44 (73) 100 11/19/19 20:00 Mechanical Ventilator Mechanical Ventilator 11/19/19 20:00 19 103/73 Mechanical Ventilator 100 11/19/19 20:00 97.6 66 12 103/73 (83) 100 11/19/19 20:00 130 11/19/19 19:49 103/73 11/19/19 19:30 66 12 93/77 (82) 100 11/19/19 19:00 100 11/19/19 19:00 153/53 11/19/19 19:00 20 153/53 Mechanical Ventilator 100 11/19/19 19:00 61 14 153/53 (86) 100 11/19/19 18:52 54 20 100 11/19/19 18:45 65 7 128/87 (101) 100 11/19/19 18:41 127/22 11/19/19 18:30 57 19 127/22 (57) 100 11/19/19 18:27 51 20 97/56 (70) 100 11/19/19 18:00 57 20 109/39 (62) 100 11/19/19 18:00 20 109/39 Mechanical Ventilator 100 11/19/19 17:30 56 20 112/45 (67) 100 11/19/19 17:00 70 17 67/45 (52) 100 11/19/19 17:00 20 129/85 Mechanical Ventilator 100 11/19/19 16:30 66 15 102/47 (65) 100 11/19/19 16:00 Mechanical Ventilator Mechanical Ventilator 11/19/19 16:00 99.6 60 20 110/33 (58) 100 11/19/19 16:00 21 110/33 Mechanical Ventilator 100 11/19/19 16:00 58 11/19/19 15:45 64 20 117/65 (82) 100 11/19/19 15:31 63 18 102/65 (77) 100 11/19/19 15:00 67 20 125/66 (85) 100 11/19/19 15:00 21 125/66 Mechanical Ventilator 100 11/19/19 15:00 67 20 100 11/19/19 14:15 69 17 125/88 (100) 100 11/19/19 14:00 20 138/70 Mechanical Ventilator 100 11/19/19 14:00 70 19 138/70 (92) 93 11/19/19 13:50 100 11/19/19 13:46 82/51 11/19/19 13:45 72 20 54/41 (45) 93 11/19/19 13:30 20 82/51 Mechanical Ventilator 100 11/19/19 13:30 83 19 82/51 (61) 93 11/19/19 13:06 83 20 Mechanical Ventilator 100 11/19/19 13:00 83 20 100 11/19/19 13:00 100 11/19/19 13:00 20 85/45 Mechanical Ventilator 100 11/19/19 13:00 99.8 79 20 85/45 (58) 15 11/19/19 12:53 20 83/60 Mechanical Ventilator 100 11/19/19 12:30 83 22 106/60 (75) 93 11/19/19 12:30 100 11/19/19 12:00 123 11/19/19 12:00 123 29 113/77 (89) 93 11/19/19 12:00 Mechanical Ventilator Mechanical Ventilator 11/19/19 11:50 Non-Rebreather 15.0 100 11/19/19 11:30 10.0 40 11/19/19 11:00 98 20 144/93 (110) 89 11/19/19 10:46 87 36 11/19/19 10:30 85 20 148/76 (100) 100 11/19/19 10:00 91 25 162/81 (108) 82 11/19/19 09:30 91 21 115/82 (93) 98 Intake and Output 11/19/19 11/20/19 19:00 07:00 Intake Total 598.4441 ml 932.25 ml Output Total 300 ml 355 ml Balance 298.4441 ml 577.25 ml Free Water 200 ml 300 ml IV Total 198.4441 ml 152.25 ml Tube Feeding 100 ml 480 ml Other 100 ml Output Urine Total 300 ml 355 ml # Bowel Movements 1 Laboratory Tests Test 11/19/19 10:02 11/19/19 12:44 11/19/19 12:50 11/19/19 17:20 Arterial Blood pH 7.431 (7.350-7.450) 7.367 (7.350-7.450) Arterial Blood Partial Pressure CO2 47.4 mmHg (35.0-45.0) H 43.8 mmHg (35.0-45.0) Arterial Blood Partial Pressure O2 93.6 mmHg (75.0-100.0) 38.9 mmHg (75.0-100.0) Arterial Blood HCO3 30.8 mmol/L (22.0-26.0) H 24.6 mmol/L (22.0-26.0) Arterial Blood Oxygen Saturation 97.3 % (95-100) 73.6 % (95-100) *L Arterial Blood Base Excess 5.7 (-2-2) H -0.9 (-2-2) Steve Test Positive Positive POC Whole Blood Glucose 128 MG/DL (74-106) H 61 MG/DL (74-106) L Test 11/19/19 17:21 11/19/19 23:43 11/20/19 03:55 11/20/19 07:35 POC Whole Blood Glucose 83 MG/DL (74-106) Pending White Blood Count 19.0 K/UL (4.8-10.8) H Red Blood Count 3.94 M/UL (4.20-5.40) L Hemoglobin 10.6 G/DL (12.0-16.0) L Hematocrit 35.5 % (37.0-47.0) L Mean Corpuscular Volume 90 FL (80-99) Mean Corpuscular Hemoglobin 26.8 PG (27.0-31.0) L Mean Corpuscular Hemoglobin Concent 29.8 G/DL (32.0-36.0) L Red Cell Distribution Width 17.5 % (11.6-14.8) H Platelet Count 264 K/UL (150-450) Mean Platelet Volume 7.0 FL (6.5-10.1) Neutrophils (%) (Auto) % (45.0-75.0) Lymphocytes (%) (Auto) % (20.0-45.0) Monocytes (%) (Auto) % (1.0-10.0) Eosinophils (%) (Auto) % (0.0-3.0) Basophils (%) (Auto) % (0.0-2.0) Neutrophils % (Manual) Pending Lymphocytes % (Manual) Pending Platelet Estimate Pending Platelet Morphology Pending Sodium Level 144 MMOL/L (136-145) Potassium Level 5.7 MMOL/L (3.5-5.1) H Chloride Level 109 MMOL/L (98-107) H Carbon Dioxide Level 35 MMOL/L (21-32) H Anion Gap 0 mmol/L (5-15) L Blood Urea Nitrogen 30 mg/dL (7-18) H Creatinine 1.0 MG/DL (0.55-1.30) Estimat Glomerular Filtration Rate 58.0 mL/min (>60) Glucose Level 111 MG/DL (74-106) H Calcium Level 8.7 MG/DL (8.5-10.1) Arterial Blood pH 7.387 (7.350-7.450) Arterial Blood Partial Pressure CO2 49.5 mmHg (35.0-45.0) H Arterial Blood Partial Pressure O2 195.0 mmHg (75.0-100.0) H Arterial Blood HCO3 29.1 mmol/L (22.0-26.0) H Arterial Blood Oxygen Saturation 99.2 % (95-100) Arterial Blood Base Excess 3.3 (-2-2) H Steve Test Positive Test 11/20/19 08:35 Potassium Level 4.6 MMOL/L (3.5-5.1) Objective HEAD AND NECK: No JVD. OG tube Orally intubated LUNGS: Coarse rhonchi. CARDIOVASCULAR: Irregularly irregular. S1 and S2 with no gallop or murmur. ABDOMEN: Soft. EXTREMITIES: No pitting edema. Gabe Snell MD Nov 20, 2019 09:28
--- NOTE | 2019-11-20 09:28 | Hematology/Onc Progress Note ---
Assessment/Plan Assessment/Plan # Anemia of chronic disease due to underlying chronic medical issues, multifactorial v Gi bleed in this case likely related covid19+++++++++ --> Anemia workup has been ordered, rule out gi bleed --> No evidence of hemolysis is noted, peripheral smear has been reviewed. --> Hgb goal >7. Transfuse prn. --> Epogen or iron at this time is not particularly indicated --> Medications have been reviewed --> low threshold for gi evaluation in case has occult + --> hgb 10-->9.8-->9.2-->9.7-->10.7->10->11->10.2->10.6 # Leukocytosis/elevated white blood cell count, unspecified likely related to covid19 --> have reviewed peripheral smear and bandemia/neutrophilia noted --> continue antibiotics if they have been started by ID team zosyn --> on remdesivir, dexamathasone --> monitor for resolution --> wbc 12->11-->11-->13->16-->21-->17 # COVID 19 pneumonia --> on vent --> respiratory failure --> s/p vent reintubation 11/08 # Diabetes mellitus --> iss and bs goal <140 # Hypertension --> sbp goal <150 # Dvt ppx scds Appreciate consultation and jimena EL Subjective Allergies: Coded Allergies: No Known Allergies (Unverified , 11/06/19) All Systems: reviewed and negative except above Subjective 11/09 weaning prn, meds reviewed, labs noted, hgb 9.2 11/10 on vent, no bleeding, hgb remains low, jimena Rn Jose R in am 11/11 on vent, fluids, ogf tube as well, labs pending in am 11/12 remains altered, no bleeding, labs reviewed, cbc noted 11/13 attempted weaning, but did not do well, no bleeding, hgb 10 11/14 intubated, weaning, on vent, with og, labs noted, abx 11/15 labs noted, no bleedign, weaning protocol, no night sweats, elev wbc, with fevers 11/16 no bleeding, jimena Broussard rn in the am, on vent, weaning but failed 11/17 meds reviewed, no night sweats, dw rn, no bleeding 11/18 extubated, on nc at this time, no bleeding, meds reviewed 11/19 labs noted, no bleeding, on vent again, weaning Objective Objective Current Medications Medications (Trade) Dose Ordered Sig/Robyn Route PRN Reason Start Time Stop Time Status Last Admin Dose Admin Acetaminophen (Tylenol) 650 mg Q6H PRN NG Temp >100.5 11/12/19 00:15 12/12/19 00:14 11/16/19 09:02 Amiodarone HCl (Cordarone) 400 mg EVERY 12 HOURS ORAL 11/20/19 09:30 02/18/20 09:29 Chlorhexidine Gluconate (Miya-Hex 2%) 1 applic DAILY@2000 TOPIC 11/08/19 21:30 02/06/20 21:29 11/19/19 20:09 Clonidine HCl (Catapres Tab) 0.1 mg Q4H PRN NG For High Blood Pressure 11/13/19 17:00 02/09/20 10:59 Dextrose (Dextrose 50%) 25 ml Q30M PRN IV Hypoglycemia 11/08/19 12:30 02/05/20 02:59 11/18/19 23:54 Dextrose (Dextrose 50%) 50 ml Q30M PRN IV Hypoglycemia 11/08/19 12:30 02/05/20 02:59 Dopamine HCl/ Dextrose 250 ml @ 0 mls/hr Q24H IV 11/19/19 18:36 02/17/20 18:35 11/19/19 18:41 Famotidine (Pepcid I.v.) 20 mg Q12HR IVP 11/08/19 15:30 12/08/19 15:29 11/20/19 08:47 Fentanyl Citrate 250 ml @ 0 mls/hr Q24H IV 11/19/19 12:15 02/17/20 12:14 11/20/19 06:03 Folic Acid (Folate) 2 mg DAILY GT 11/15/19 09:00 12/15/19 08:59 11/20/19 08:47 Insulin Aspart (NovoLOG) EVERY 6 HOURS SUBQ 11/15/19 12:00 02/11/20 20:59 11/18/19 05:17 Lorazepam (Ativan 2mg/ml 1ml) 1 mg Q4H PRN IV For Anxiety 11/14/19 10:00 11/21/19 09:59 11/16/19 09:00 Metoprolol Tartrate (Lopressor) 25 mg Q12HR ORAL 11/20/19 09:30 02/18/20 09:29 Norepinephrine Bitartrate 250 ml @ 0 mls/hr Q24H IV 11/19/19 19:49 02/17/20 19:48 Last 24 Hour Vital Signs Date Time Temp Pulse Resp B/P (MAP) Pulse Ox O2 Delivery O2 Flow Rate FiO2 11/20/19 09:00 123 14 162/108 (126) 100 11/20/19 08:30 113 21 144/86 (105) 100 11/20/19 08:00 Mechanical Ventilator Mechanical Ventilator 11/20/19 08:00 80 11/20/19 08:00 112 11/20/19 08:00 120 13 140/81 (100) 100 11/20/19 07:50 80 11/20/19 07:30 62 20 100 11/20/19 07:30 124 18 126/76 (93) 100 11/20/19 07:00 22 143/66 Mechanical Ventilator 100 11/20/19 07:00 67 22 143/66 (91) 100 11/20/19 06:45 20 129/67 Mechanical Ventilator 100 11/20/19 06:30 74 20 11/20/19 06:30 20 123/58 Mechanical Ventilator 100 11/20/19 06:30 74 20 123/58 (79) 100 11/20/19 06:15 19 159/49 Mechanical Ventilator 100 11/20/19 06:03 20 151/75 Mechanical Ventilator 100 11/20/19 06:00 62 20 136/58 (84) 100 11/20/19 06:00 20 151/75 Mechanical Ventilator 100 11/20/19 05:30 72 20 160/69 (99) 100 11/20/19 05:00 15 136/57 Mechanical Ventilator 100 11/20/19 05:00 62 15 136/57 (83) 100 11/20/19 04:30 63 18 136/54 (81) 100 11/20/19 04:00 Mechanical Ventilator Mechanical Ventilator 11/20/19 04:00 100 11/20/19 04:00 18 150/63 Mechanical Ventilator 100 11/20/19 04:00 98.8 65 20 150/63 (92) 100 11/20/19 04:00 73 11/20/19 03:30 60 18 110/48 (68) 100 11/20/19 03:20 73 20 100 11/20/19 03:00 21 147/60 Mechanical Ventilator 100 11/20/19 03:00 63 21 147/60 (89) 100 11/20/19 02:30 66 18 122/60 (80) 100 11/20/19 02:00 16 91/72 Mechanical Ventilator 100 11/20/19 02:00 72 16 91/72 (78) 100 11/20/19 01:30 59 19 119/54 (75) 100 11/20/19 01:00 61 15 146/55 (85) 100 11/20/19 01:00 15 146/55 Mechanical Ventilator 100 11/20/19 00:30 70 23 109/71 (84) 100 11/20/19 00:00 55 11/20/19 00:00 Mechanical Ventilator Mechanical Ventilator 11/20/19 00:00 13 97/53 Mechanical Ventilator 100 11/20/19 00:00 98.3 57 14 97/55 (69) 100 11/20/19 00:00 100 11/19/19 23:30 55 12 107/52 (70) 100 11/19/19 23:00 55 20 108/57 (74) 100 11/19/19 23:00 20 108/57 Mechanical Ventilator 100 11/19/19 22:46 59 20 100 11/19/19 22:30 54 12 99/61 (74) 100 11/19/19 22:00 54 12 99/61 (74) 100 11/19/19 22:00 12 99/61 Mechanical Ventilator 100 11/19/19 21:30 81 20 116/65 (82) 100 11/19/19 21:00 60 12 95/55 (68) 98 11/19/19 21:00 18 95/55 Mechanical Ventilator 100 11/19/19 20:30 61 21 132/44 (73) 100 11/19/19 20:00 Mechanical Ventilator Mechanical Ventilator 11/19/19 20:00 19 103/73 Mechanical Ventilator 100 11/19/19 20:00 97.6 66 12 103/73 (83) 100 11/19/19 20:00 130 7/30/20 19:49 103/73 11/19/19 19:30 66 12 93/77 (82) 100 11/19/19 19:00 100 11/19/19 19:00 153/53 11/19/19 19:00 20 153/53 Mechanical Ventilator 100 11/19/19 19:00 61 14 153/53 (86) 100 11/19/19 18:52 54 20 100 11/19/19 18:45 65 7 128/87 (101) 100 11/19/19 18:41 127/22 11/19/19 18:30 57 19 127/22 (57) 100 11/19/19 18:27 51 20 97/56 (70) 100 11/19/19 18:00 57 20 109/39 (62) 100 11/19/19 18:00 20 109/39 Mechanical Ventilator 100 11/19/19 17:30 56 20 112/45 (67) 100 11/19/19 17:00 70 17 67/45 (52) 100 11/19/19 17:00 20 129/85 Mechanical Ventilator 100 11/19/19 16:30 66 15 102/47 (65) 100 11/19/19 16:00 Mechanical Ventilator Mechanical Ventilator 11/19/19 16:00 99.6 60 20 110/33 (58) 100 11/19/19 16:00 21 110/33 Mechanical Ventilator 100 11/19/19 16:00 58 11/19/19 15:45 64 20 117/65 (82) 100 11/19/19 15:31 63 18 102/65 (77) 100 11/19/19 15:00 67 20 125/66 (85) 100 11/19/19 15:00 21 125/66 Mechanical Ventilator 100 11/19/19 15:00 67 20 100 11/19/19 14:15 69 17 125/88 (100) 100 11/19/19 14:00 20 138/70 Mechanical Ventilator 100 11/19/19 14:00 70 19 138/70 (92) 93 11/19/19 13:50 100 11/19/19 13:46 82/51 11/19/19 13:45 72 20 54/41 (45) 93 11/19/19 13:30 20 82/51 Mechanical Ventilator 100 11/19/19 13:30 83 19 82/51 (61) 93 11/19/19 13:06 83 20 Mechanical Ventilator 100 11/19/19 13:00 83 20 100 11/19/19 13:00 100 11/19/19 13:00 20 85/45 Mechanical Ventilator 100 11/19/19 13:00 99.8 79 20 85/45 (58) 15 11/19/19 12:53 20 83/60 Mechanical Ventilator 100 11/19/19 12:30 83 22 106/60 (75) 93 11/19/19 12:30 100 11/19/19 12:00 123 11/19/19 12:00 123 29 113/77 (89) 93 11/19/19 12:00 Mechanical Ventilator Mechanical Ventilator 11/19/19 11:50 Non-Rebreather 15.0 100 11/19/19 11:30 10.0 40 11/19/19 11:00 98 20 144/93 (110) 89 11/19/19 10:46 87 36 11/19/19 10:30 85 20 148/76 (100) 100 11/19/19 10:00 91 25 162/81 (108) 82 11/19/19 09:30 91 21 115/82 (93) 98 11/19/19 09:11 40 11/19/19 09:10 100 11/19/19 09:00 76 13 115/67 (83) 100 11/19/19 08:30 86 18 116/72 (87) 97 11/19/19 08:09 91 128/63 11/19/19 08:00 92 11/19/19 08:00 40 11/19/19 08:00 21 128/63 Mechanical Ventilator 40 11/19/19 08:00 Mechanical Ventilator 11/19/19 08:00 98.6 82 18 128/63 (84) 97 11/19/19 07:27 84 18 40 11/19/19 07:00 73 18 109/89 (96) 100 11/19/19 07:00 18 109/89 Mechanical Ventilator 40 11/19/19 06:30 78 16 11/19/19 06:30 78 16 105/62 (76) 100 11/19/19 06:00 75 16 106/72 (83) 96 11/19/19 06:00 18 106/72 Mechanical Ventilator 40 11/19/19 05:30 76 14 125/76 (92) 96 11/19/19 05:00 79 14 133/73 (93) 100 11/19/19 05:00 14 133/73 Mechanical Ventilator 40 11/19/19 04:30 76 0 114/67 (83) 100 11/19/19 04:00 Mechanical Ventilator 11/19/19 04:00 74 11/19/19 04:00 40 11/19/19 04:00 12 100/51 Mechanical Ventilator 40 11/19/19 04:00 98.2 74 12 100/51 (67) 97 11/19/19 03:30 76 15 100/56 (71) 100 11/19/19 03:26 79 18 40 11/19/19 03:16 102 15 121/53 (75) 100 11/19/19 03:00 15 190/127 Mechanical Ventilator 40 11/19/19 03:00 102 15 190/127 (148) 91 11/19/19 02:30 77 13 144/84 (104) 100 11/19/19 02:00 69 18 111/69 (83) 100 11/19/19 02:00 18 111/69 Mechanical Ventilator 40 11/19/19 01:30 67 18 112/77 (89) 97 11/19/19 01:00 70 18 111/65 (80) 100 11/19/19 01:00 18 111/65 Mechanical Ventilator 40 11/19/19 00:30 67 17 130/54 (79) 100 11/19/19 00:00 40 11/19/19 00:00 98.0 68 15 124/77 (93) 96 11/19/19 00:00 15 124/77 Mechanical Ventilator 40 11/19/19 00:00 Mechanical Ventilator 11/18/19 23:30 69 20 125/69 (87) 100 11/18/19 23:30 64 18 40 11/18/19 23:22 60 11/18/19 23:00 65 17 87/59 (68) 100 11/18/19 23:00 17 87/59 Mechanical Ventilator 40 11/18/19 22:35 63 17 99/65 (76) 100 11/18/19 22:30 63 18 83/54 (64) 100 11/18/19 22:00 70 18 93/47 (62) 100 11/18/19 22:00 18 93/47 Mechanical Ventilator 40 11/18/19 21:30 88 18 159/74 (102) 100 11/18/19 21:05 84 150/67 11/18/19 21:00 75 18 150/67 (94) 97 11/18/19 21:00 18 150/67 Mechanical Ventilator 40 11/18/19 20:30 79 18 111/58 (75) 97 11/18/19 20:00 98.6 85 20 94/45 (61) 97 11/18/19 20:00 Mechanical Ventilator 11/18/19 20:00 40 11/18/19 20:00 20 94/45 Mechanical Ventilator 40 11/18/19 20:00 85 11/18/19 19:30 71 18 40 11/18/19 19:30 75 0 104/56 (72) 96 11/18/19 19:00 85 0 118/53 (74) 97 11/18/19 19:00 18 118/53 Mechanical Ventilator 40 11/18/19 18:30 87 19 150/69 (96) 98 11/18/19 18:00 87 16 133/66 (88) 98 11/18/19 18:00 18 133/66 Mechanical Ventilator 40 11/18/19 17:30 81 18 123/63 (83) 97 11/18/19 17:00 18 123/63 Mechanical Ventilator 40 11/18/19 17:00 76 18 100/58 (72) 98 11/18/19 16:30 73 18 103/50 (67) 100 11/18/19 16:00 Mechanical Ventilator 11/18/19 16:00 73 11/18/19 16:00 40 11/18/19 16:00 18 103/50 Mechanical Ventilator 40 11/18/19 16:00 98.0 80 18 94/52 (66) 96 11/18/19 15:44 72 18 40 11/18/19 15:30 75 18 94/55 (68) 99 11/18/19 15:00 18 138/75 Mechanical Ventilator 40 11/18/19 15:00 79 20 138/75 (96) 100 11/18/19 14:00 76 18 129/55 (79) 98 11/18/19 14:00 18 129/55 Mechanical Ventilator 40 11/18/19 13:30 77 18 83/50 (61) 100 11/18/19 13:00 77 19 114/76 (89) 100 7/29/20 13:00 18 83/50 Mechanical Ventilator 40 11/18/19 12:34 79 18 101/78 (86) 99 11/18/19 12:32 19 89/56 Mechanical Ventilator 60.0 40 11/18/19 12:30 77 18 81/42 (55) 97 11/18/19 12:00 40 11/18/19 12:00 19 89/56 Mechanical Ventilator 40 11/18/19 12:00 Mechanical Ventilator 11/18/19 12:00 99.2 81 18 89/56 (67) 97 11/18/19 11:49 82 11/18/19 11:30 84 18 99/60 (73) 96 11/18/19 11:00 100 22 126/90 (102) 93 11/18/19 11:00 18 126/90 Mechanical Ventilator 40 11/18/19 10:05 120 25 40 11/18/19 10:00 30 133/119 Mechanical Ventilator 40 11/18/19 10:00 106 21 133/90 (104) 97 11/18/19 09:30 93 Intake and Output 11/19/19 11/20/19 19:00 07:00 Intake Total 598.4441 ml 932.25 ml Output Total 300 ml 355 ml Balance 298.4441 ml 577.25 ml Free Water 200 ml 300 ml IV Total 198.4441 ml 152.25 ml Tube Feeding 100 ml 480 ml Other 100 ml Output Urine Total 300 ml 355 ml # Bowel Movements 1 Labs Test 11/17/19 09:40 11/17/19 12:53 11/17/19 18:09 11/17/19 19:55 Test 11/17/19 23:02 11/18/19 04:00 11/18/19 05:12 11/18/19 09:31 White Blood Count 18.8 K/UL (4.8-10.8) Red Blood Count 3.96 M/UL (4.20-5.40) Hemoglobin 10.5 G/DL (12.0-16.0) Hematocrit 35.7 % (37.0-47.0) Mean Corpuscular Volume 90 FL (80-99) Mean Corpuscular Hemoglobin 26.5 PG (27.0-31.0) Mean Corpuscular Hemoglobin Concent 29.4 G/DL (32.0-36.0) Red Cell Distribution Width 17.0 % (11.6-14.8) Platelet Count 269 K/UL (150-450) Mean Platelet Volume 7.2 FL (6.5-10.1) Neutrophils (%) (Auto) % (45.0-75.0) Lymphocytes (%) (Auto) % (20.0-45.0) Monocytes (%) (Auto) % (1.0-10.0) Eosinophils (%) (Auto) % (0.0-3.0) Basophils (%) (Auto) % (0.0-2.0) Differential Total Cells Counted 100 Neutrophils % (Manual) 87 % (45-75) Lymphocytes % (Manual) 5 % (20-45) Monocytes % (Manual) 7 % (1-10) Eosinophils % (Manual) 1 % (0-3) Basophils % (Manual) 0 % (0-2) Band Neutrophils 0 % (0-8) Platelet Estimate Adequate Platelet Morphology Normal Hypochromasia 1+ Anisocytosis 1+ Sodium Level 145 MMOL/L (136-145) Potassium Level 4.3 MMOL/L (3.5-5.1) Chloride Level 108 MMOL/L (98-107) Carbon Dioxide Level 35 MMOL/L (21-32) Anion Gap 2 mmol/L (5-15) Blood Urea Nitrogen 26 mg/dL (7-18) Creatinine 0.9 MG/DL (0.55-1.30) Estimat Glomerular Filtration Rate > 60 mL/min (>60) Glucose Level 178 MG/DL (74-106) Calcium Level 8.3 MG/DL (8.5-10.1) Arterial Blood pH 7.386 (7.350-7.450) Arterial Blood Partial Pressure CO2 50.2 mmHg (35.0-45.0) Arterial Blood Partial Pressure O2 63.2 mmHg (75.0-100.0) Arterial Blood HCO3 29.4 mmol/L (22.0-26.0) Arterial Blood Oxygen Saturation 92.3 % (95-100) Arterial Blood Base Excess 3.5 (-2-2) Steve Test Positive Test 11/18/19 20:33 11/18/19 20:37 11/18/19 20:49 11/18/19 23:50 POC Whole Blood Glucose 66 MG/DL (74-106) 65 MG/DL (74-106) 162 MG/DL (74-106) 68 MG/DL (74-106) Test 11/19/19 00:08 11/19/19 02:27 11/19/19 04:45 11/19/19 05:10 POC Whole Blood Glucose 73 MG/DL (74-106) 86 MG/DL (74-106) 76 MG/DL (74-106) White Blood Count 16.7 K/UL (4.8-10.8) Red Blood Count 3.98 M/UL (4.20-5.40) Hemoglobin 10.6 G/DL (12.0-16.0) Hematocrit 35.6 % (37.0-47.0) Mean Corpuscular Volume 90 FL (80-99) Mean Corpuscular Hemoglobin 26.6 PG (27.0-31.0) Mean Corpuscular Hemoglobin Concent 29.7 G/DL (32.0-36.0) Red Cell Distribution Width 16.7 % (11.6-14.8) Platelet Count 257 K/UL (150-450) Mean Platelet Volume 6.8 FL (6.5-10.1) Neutrophils (%) (Auto) % (45.0-75.0) Lymphocytes (%) (Auto) % (20.0-45.0) Monocytes (%) (Auto) % (1.0-10.0) Eosinophils (%) (Auto) % (0.0-3.0) Basophils (%) (Auto) % (0.0-2.0) Differential Total Cells Counted 100 Neutrophils % (Manual) 92 % (45-75) Lymphocytes % (Manual) 5 % (20-45) Monocytes % (Manual) 3 % (1-10) Eosinophils % (Manual) 0 % (0-3) Basophils % (Manual) 0 % (0-2) Band Neutrophils 0 % (0-8) Platelet Estimate Adequate Platelet Morphology Normal Polychromasia 1+ Hypochromasia 1+ Anisocytosis 1+ Sodium Level 145 MMOL/L (136-145) Potassium Level 4.7 MMOL/L (3.5-5.1) Chloride Level 110 MMOL/L (98-107) Carbon Dioxide Level 36 MMOL/L (21-32) Anion Gap -1 mmol/L (5-15) Blood Urea Nitrogen 22 mg/dL (7-18) Creatinine 0.7 MG/DL (0.55-1.30) Estimat Glomerular Filtration Rate > 60 mL/min (>60) Glucose Level 115 MG/DL (74-106) Calcium Level 8.0 MG/DL (8.5-10.1) Phosphorus Level 3.2 MG/DL (2.5-4.9) Magnesium Level 2.1 MG/DL (1.8-2.4) Total Bilirubin 1.1 MG/DL (0.2-1.0) Direct Bilirubin 0.6 MG/DL (0.0-0.3) Aspartate Amino Transf (AST/SGOT) 40 U/L (15-37) Alanine Aminotransferase (ALT/SGPT) 33 U/L (12-78) Alkaline Phosphatase 165 U/L (46-116) Total Protein 5.8 G/DL (6.4-8.2) Albumin 1.8 G/DL (3.4-5.0) Globulin 4.0 g/dL Albumin/Globulin Ratio 0.4 (1.0-2.7) Test 11/19/19 10:02 11/19/19 12:44 11/19/19 12:50 11/19/19 17:20 Arterial Blood pH 7.431 (7.350-7.450) 7.367 (7.350-7.450) Arterial Blood Partial Pressure CO2 47.4 mmHg (35.0-45.0) 43.8 mmHg (35.0-45.0) Arterial Blood Partial Pressure O2 93.6 mmHg (75.0-100.0) 38.9 mmHg (75.0-100.0) Arterial Blood HCO3 30.8 mmol/L (22.0-26.0) 24.6 mmol/L (22.0-26.0) Arterial Blood Oxygen Saturation 97.3 % (95-100) 73.6 % (95-100) Arterial Blood Base Excess 5.7 (-2-2) -0.9 (-2-2) Steve Test Positive Positive POC Whole Blood Glucose 128 MG/DL (74-106) 61 MG/DL (74-106) Test 11/19/19 17:21 11/19/19 23:43 11/20/19 03:55 11/20/19 07:35 POC Whole Blood Glucose 83 MG/DL (74-106) White Blood Count 19.0 K/UL (4.8-10.8) Red Blood Count 3.94 M/UL (4.20-5.40) Hemoglobin 10.6 G/DL (12.0-16.0) Hematocrit 35.5 % (37.0-47.0) Mean Corpuscular Volume 90 FL (80-99) Mean Corpuscular Hemoglobin 26.8 PG (27.0-31.0) Mean Corpuscular Hemoglobin Concent 29.8 G/DL (32.0-36.0) Red Cell Distribution Width 17.5 % (11.6-14.8) Platelet Count 264 K/UL (150-450) Mean Platelet Volume 7.0 FL (6.5-10.1) Neutrophils (%) (Auto) % (45.0-75.0) Lymphocytes (%) (Auto) % (20.0-45.0) Monocytes (%) (Auto) % (1.0-10.0) Eosinophils (%) (Auto) % (0.0-3.0) Basophils (%) (Auto) % (0.0-2.0) Sodium Level 144 MMOL/L (136-145) Potassium Level 5.7 MMOL/L (3.5-5.1) Chloride Level 109 MMOL/L (98-107) Carbon Dioxide Level 35 MMOL/L (21-32) Anion Gap 0 mmol/L (5-15) Blood Urea Nitrogen 30 mg/dL (7-18) Creatinine 1.0 MG/DL (0.55-1.30) Estimat Glomerular Filtration Rate 58.0 mL/min (>60) Glucose Level 111 MG/DL (74-106) Calcium Level 8.7 MG/DL (8.5-10.1) Arterial Blood pH 7.387 (7.350-7.450) Arterial Blood Partial Pressure CO2 49.5 mmHg (35.0-45.0) Arterial Blood Partial Pressure O2 195.0 mmHg (75.0-100.0) Arterial Blood HCO3 29.1 mmol/L (22.0-26.0) Arterial Blood Oxygen Saturation 99.2 % (95-100) Arterial Blood Base Excess 3.3 (-2-2) Steve Test Positive Test 11/20/19 08:35 Potassium Level 4.6 MMOL/L (3.5-5.1) Height (Feet): 5 Height (Inches): 3.00 Weight (Pounds): 319 Objective Physical Exam: Vitals: reviewed General: NAD HEENT: nc, at Neck: supple Chest: clear breath sounds on vent++ Cardiovascular: RRR, no s3, s4 Abdomen: soft, nontender, nd Extremities: no cce, normal range of motion Neuro: alert and oriented Ismael Fischer MD Nov 20, 2019 09:28
[2019-11-20] MEDS: Amiodarone 200mg tab ORAL SCH ×2 (09:44→20:51)
--- NOTE | 2019-11-20 10:54 | Infectious Diseases Prog Note ---
Assessment/Plan Assessment/Plan antibiotics : none A 1. COVID 19 pneumonia on 80 percent Fi O2, PEEP 8, saturation 100 percent 2. respiratory failure 3. leucocytosis likely secondary to steroids 4. diabetes mellitus 5. hypertension 6. obesity P 1. 1 dose ivermectin today consent was obtained previously from daughter 2. will follow up cultures 3. continue isolation 4. consider tocilizumab Subjective ROS Limited/Unobtainable: Yes Allergies: Coded Allergies: No Known Allergies (Unverified , 11/06/19) Objective Last 24 Hour Vital Signs Date Time Temp Pulse Resp B/P (MAP) Pulse Ox O2 Delivery O2 Flow Rate FiO2 11/20/19 10:30 106 15 102/55 (71) 100 11/20/19 10:00 104 14 97/74 (82) 100 11/20/19 10:00 13 97/74 Endotracheal Tube 80 11/20/19 09:45 107 13 105/68 (80) 100 11/20/19 09:44 112 125/71 11/20/19 09:30 97.8 112 14 125/71 (89) 100 11/20/19 09:15 117 16 131/66 (87) 100 11/20/19 09:00 123 14 162/108 (126) 100 11/20/19 09:00 14 162/108 Endotracheal Tube 80 11/20/19 08:30 113 21 144/86 (105) 100 11/20/19 08:00 Mechanical Ventilator Mechanical Ventilator 11/20/19 08:00 80 11/20/19 08:00 112 11/20/19 08:00 25 140/81 Endotracheal Tube 100 11/20/19 08:00 120 13 140/81 (100) 100 11/20/19 07:50 80 11/20/19 07:30 62 20 100 11/20/19 07:30 124 18 126/76 (93) 100 11/20/19 07:00 22 143/66 Mechanical Ventilator 100 11/20/19 07:00 67 22 143/66 (91) 100 11/20/19 06:45 20 129/67 Mechanical Ventilator 100 11/20/19 06:30 74 20 11/20/19 06:30 20 123/58 Mechanical Ventilator 100 11/20/19 06:30 74 20 123/58 (79) 100 11/20/19 06:15 19 159/49 Mechanical Ventilator 100 11/20/19 06:03 20 151/75 Mechanical Ventilator 100 11/20/19 06:00 62 20 136/58 (84) 100 11/20/19 06:00 20 151/75 Mechanical Ventilator 100 11/20/19 05:30 72 20 160/69 (99) 100 11/20/19 05:00 15 136/57 Mechanical Ventilator 100 11/20/19 05:00 62 15 136/57 (83) 100 11/20/19 04:30 63 18 136/54 (81) 100 11/20/19 04:00 Mechanical Ventilator Mechanical Ventilator 11/20/19 04:00 100 11/20/19 04:00 18 150/63 Mechanical Ventilator 100 11/20/19 04:00 98.8 65 20 150/63 (92) 100 11/20/19 04:00 73 11/20/19 03:30 60 18 110/48 (68) 100 11/20/19 03:20 73 20 100 11/20/19 03:00 21 147/60 Mechanical Ventilator 100 11/20/19 03:00 63 21 147/60 (89) 100 11/20/19 02:30 66 18 122/60 (80) 100 11/20/19 02:00 16 91/72 Mechanical Ventilator 100 11/20/19 02:00 72 16 91/72 (78) 100 11/20/19 01:30 59 19 119/54 (75) 100 11/20/19 01:00 61 15 146/55 (85) 100 11/20/19 01:00 15 146/55 Mechanical Ventilator 100 11/20/19 00:30 70 23 109/71 (84) 100 11/20/19 00:00 55 11/20/19 00:00 Mechanical Ventilator Mechanical Ventilator 11/20/19 00:00 13 97/53 Mechanical Ventilator 100 11/20/19 00:00 98.3 57 14 97/55 (69) 100 11/20/19 00:00 100 11/19/19 23:30 55 12 107/52 (70) 100 11/19/19 23:00 55 20 108/57 (74) 100 11/19/19 23:00 20 108/57 Mechanical Ventilator 100 11/19/19 22:46 59 20 100 11/19/19 22:30 54 12 99/61 (74) 100 11/19/19 22:00 54 12 99/61 (74) 100 11/19/19 22:00 12 99/61 Mechanical Ventilator 100 11/19/19 21:30 81 20 116/65 (82) 100 11/19/19 21:00 60 12 95/55 (68) 98 11/19/19 21:00 18 95/55 Mechanical Ventilator 100 11/19/19 20:30 61 21 132/44 (73) 100 11/19/19 20:00 Mechanical Ventilator Mechanical Ventilator 11/19/19 20:00 19 103/73 Mechanical Ventilator 100 11/19/19 20:00 97.6 66 12 103/73 (83) 100 11/19/19 20:00 130 11/19/19 19:49 103/73 11/19/19 19:30 66 12 93/77 (82) 100 11/19/19 19:00 100 11/19/19 19:00 153/53 11/19/19 19:00 20 153/53 Mechanical Ventilator 100 11/19/19 19:00 61 14 153/53 (86) 100 11/19/19 18:52 54 20 100 11/19/19 18:45 65 7 128/87 (101) 100 11/19/19 18:41 127/22 11/19/19 18:30 57 19 127/22 (57) 100 11/19/19 18:27 51 20 97/56 (70) 100 11/19/19 18:00 57 20 109/39 (62) 100 11/19/19 18:00 20 109/39 Mechanical Ventilator 100 11/19/19 17:30 56 20 112/45 (67) 100 11/19/19 17:00 70 17 67/45 (52) 100 11/19/19 17:00 20 129/85 Mechanical Ventilator 100 11/19/19 16:30 66 15 102/47 (65) 100 11/19/19 16:00 Mechanical Ventilator Mechanical Ventilator 11/19/19 16:00 99.6 60 20 110/33 (58) 100 11/19/19 16:00 21 110/33 Mechanical Ventilator 100 11/19/19 16:00 58 11/19/19 15:45 64 20 117/65 (82) 100 11/19/19 15:31 63 18 102/65 (77) 100 11/19/19 15:00 67 20 125/66 (85) 100 11/19/19 15:00 21 125/66 Mechanical Ventilator 100 11/19/19 15:00 67 20 100 11/19/19 14:15 69 17 125/88 (100) 100 11/19/19 14:00 20 138/70 Mechanical Ventilator 100 11/19/19 14:00 70 19 138/70 (92) 93 11/19/19 13:50 100 11/19/19 13:46 82/51 11/19/19 13:45 72 20 54/41 (45) 93 11/19/19 13:30 20 82/51 Mechanical Ventilator 100 11/19/19 13:30 83 19 82/51 (61) 93 11/19/19 13:06 83 20 Mechanical Ventilator 100 11/19/19 13:00 83 20 100 11/19/19 13:00 100 11/19/19 13:00 20 85/45 Mechanical Ventilator 100 11/19/19 13:00 99.8 79 20 85/45 (58) 15 11/19/19 12:53 20 83/60 Mechanical Ventilator 100 11/19/19 12:30 83 22 106/60 (75) 93 11/19/19 12:30 100 11/19/19 12:00 123 11/19/19 12:00 123 29 113/77 (89) 93 11/19/19 12:00 Mechanical Ventilator Mechanical Ventilator 11/19/19 11:50 Non-Rebreather 15.0 100 11/19/19 11:30 10.0 40 11/19/19 11:00 98 20 144/93 (110) 89 Height (Feet): 5 Height (Inches): 3.00 Weight (Pounds): 319 HEENT: other - extubated and now reintubated Laboratory Tests Test 11/19/19 12:44 11/19/19 12:50 11/19/19 17:20 11/19/19 17:21 Arterial Blood pH 7.367 (7.350-7.450) Arterial Blood Partial Pressure CO2 43.8 mmHg (35.0-45.0) Arterial Blood Partial Pressure O2 38.9 mmHg (75.0-100.0) Arterial Blood HCO3 24.6 mmol/L (22.0-26.0) Arterial Blood Oxygen Saturation 73.6 % (95-100) *L Arterial Blood Base Excess -0.9 (-2-2) Steve Test Positive POC Whole Blood Glucose 128 MG/DL (74-106) H 61 MG/DL (74-106) L 83 MG/DL (74-106) Test 11/19/19 23:43 11/20/19 03:55 11/20/19 07:35 11/20/19 08:35 POC Whole Blood Glucose Pending White Blood Count 19.0 K/UL (4.8-10.8) H Red Blood Count 3.94 M/UL (4.20-5.40) L Hemoglobin 10.6 G/DL (12.0-16.0) L Hematocrit 35.5 % (37.0-47.0) L Mean Corpuscular Volume 90 FL (80-99) Mean Corpuscular Hemoglobin 26.8 PG (27.0-31.0) L Mean Corpuscular Hemoglobin Concent 29.8 G/DL (32.0-36.0) L Red Cell Distribution Width 17.5 % (11.6-14.8) H Platelet Count 264 K/UL (150-450) Mean Platelet Volume 7.0 FL (6.5-10.1) Neutrophils (%) (Auto) % (45.0-75.0) Lymphocytes (%) (Auto) % (20.0-45.0) Monocytes (%) (Auto) % (1.0-10.0) Eosinophils (%) (Auto) % (0.0-3.0) Basophils (%) (Auto) % (0.0-2.0) Differential Total Cells Counted 100 Neutrophils % (Manual) 91 % (45-75) H Lymphocytes % (Manual) 2 % (20-45) L Monocytes % (Manual) 7 % (1-10) Eosinophils % (Manual) 0 % (0-3) Basophils % (Manual) 0 % (0-2) Band Neutrophils 0 % (0-8) Platelet Estimate Adequate Platelet Morphology Normal Hypochromasia 1+ Poikilocytosis 1+ Anisocytosis 1+ Sodium Level 144 MMOL/L (136-145) Potassium Level 5.7 MMOL/L (3.5-5.1) H 4.6 MMOL/L (3.5-5.1) Chloride Level 109 MMOL/L (98-107) H Carbon Dioxide Level 35 MMOL/L (21-32) H Anion Gap 0 mmol/L (5-15) L Blood Urea Nitrogen 30 mg/dL (7-18) H Creatinine 1.0 MG/DL (0.55-1.30) Estimat Glomerular Filtration Rate 58.0 mL/min (>60) Glucose Level 111 MG/DL (74-106) H Calcium Level 8.7 MG/DL (8.5-10.1) Arterial Blood pH 7.387 (7.350-7.450) Arterial Blood Partial Pressure CO2 49.5 mmHg (35.0-45.0) H Arterial Blood Partial Pressure O2 195.0 mmHg (75.0-100.0) H Arterial Blood HCO3 29.1 mmol/L (22.0-26.0) H Arterial Blood Oxygen Saturation 99.2 % (95-100) Arterial Blood Base Excess 3.3 (-2-2) H Steve Test Positive Current Medications Medications (Trade) Dose Ordered Sig/Robyn Route PRN Reason Start Time Stop Time Status Last Admin Dose Admin Acetaminophen (Tylenol) 650 mg Q6H PRN NG Temp >100.5 11/12/19 00:15 12/12/19 00:14 11/16/19 09:02 Amiodarone HCl (Cordarone) 400 mg EVERY 12 HOURS ORAL 11/20/19 09:30 02/18/20 09:29 11/20/19 09:44 Chlorhexidine Gluconate (Miya-Hex 2%) 1 applic DAILY@2000 TOPIC 11/08/19 21:30 02/06/20 21:29 11/19/19 20:09 Clonidine HCl (Catapres Tab) 0.1 mg Q4H PRN NG For High Blood Pressure 11/13/19 17:00 02/09/20 10:59 Dextrose (Dextrose 50%) 25 ml Q30M PRN IV Hypoglycemia 11/08/19 12:30 02/05/20 02:59 11/18/19 23:54 Dextrose (Dextrose 50%) 50 ml Q30M PRN IV Hypoglycemia 11/08/19 12:30 02/05/20 02:59 Dopamine HCl/ Dextrose 250 ml @ 0 mls/hr Q24H IV 11/19/19 18:36 02/17/20 18:35 11/19/19 18:41 Famotidine (Pepcid I.v.) 20 mg Q12HR IVP 11/08/19 15:30 12/08/19 15:29 11/20/19 08:47 Fentanyl Citrate 250 ml @ 0 mls/hr Q24H IV 11/19/19 12:15 02/17/20 12:14 11/20/19 06:03 Folic Acid (Folate) 2 mg DAILY GT 11/15/19 09:00 12/15/19 08:59 11/20/19 08:47 Insulin Aspart (NovoLOG) EVERY 6 HOURS SUBQ 11/15/19 12:00 02/11/20 20:59 11/18/19 05:17 Ivermectin (StromectoL) 18 mg ONCE ONCE ORAL 11/20/19 11:00 11/20/19 11:01 Lorazepam (Ativan 2mg/ml 1ml) 1 mg Q4H PRN IV For Anxiety 11/14/19 10:00 11/21/19 09:59 11/16/19 09:00 Metoprolol Tartrate (Lopressor) 25 mg Q12HR ORAL 11/20/19 09:30 02/18/20 09:29 11/20/19 09:44 Norepinephrine Bitartrate 250 ml @ 0 mls/hr Q24H IV 11/19/19 19:49 02/17/20 19:48 Rosette Bowman MD Nov 20, 2019 10:54
--- NOTE | 2019-11-20 11:06 | Surgery Progress Note ---
Surgery Progress Note Subjective Procedure Performed Left femoral triple-lumen catheter removal Additional Comments did not tolerate extubation reintubated within an hour discussed with pulm likely trach consideration Objective Last 24 Hour Vital Signs Date Time Temp Pulse Resp B/P (MAP) Pulse Ox O2 Delivery O2 Flow Rate FiO2 11/20/19 10:30 106 15 102/55 (71) 100 11/20/19 10:00 104 14 97/74 (82) 100 11/20/19 10:00 13 97/74 Endotracheal Tube 80 11/20/19 09:45 107 13 105/68 (80) 100 11/20/19 09:44 112 125/71 11/20/19 09:30 97.8 112 14 125/71 (89) 100 11/20/19 09:15 117 16 131/66 (87) 100 11/20/19 09:00 123 14 162/108 (126) 100 11/20/19 09:00 14 162/108 Endotracheal Tube 80 11/20/19 08:30 113 21 144/86 (105) 100 11/20/19 08:00 Mechanical Ventilator Mechanical Ventilator 11/20/19 08:00 80 11/20/19 08:00 112 11/20/19 08:00 25 140/81 Endotracheal Tube 100 11/20/19 08:00 120 13 140/81 (100) 100 11/20/19 07:50 80 11/20/19 07:30 62 20 100 11/20/19 07:30 124 18 126/76 (93) 100 11/20/19 07:00 22 143/66 Mechanical Ventilator 100 11/20/19 07:00 67 22 143/66 (91) 100 11/20/19 06:45 20 129/67 Mechanical Ventilator 100 11/20/19 06:30 74 20 11/20/19 06:30 20 123/58 Mechanical Ventilator 100 11/20/19 06:30 74 20 123/58 (79) 100 11/20/19 06:15 19 159/49 Mechanical Ventilator 100 11/20/19 06:03 20 151/75 Mechanical Ventilator 100 11/20/19 06:00 62 20 136/58 (84) 100 11/20/19 06:00 20 151/75 Mechanical Ventilator 100 11/20/19 05:30 72 20 160/69 (99) 100 11/20/19 05:00 15 136/57 Mechanical Ventilator 100 11/20/19 05:00 62 15 136/57 (83) 100 11/20/19 04:30 63 18 136/54 (81) 100 11/20/19 04:00 Mechanical Ventilator Mechanical Ventilator 11/20/19 04:00 100 11/20/19 04:00 18 150/63 Mechanical Ventilator 100 11/20/19 04:00 98.8 65 20 150/63 (92) 100 11/20/19 04:00 73 11/20/19 03:30 60 18 110/48 (68) 100 11/20/19 03:20 73 20 100 11/20/19 03:00 21 147/60 Mechanical Ventilator 100 11/20/19 03:00 63 21 147/60 (89) 100 11/20/19 02:30 66 18 122/60 (80) 100 11/20/19 02:00 16 91/72 Mechanical Ventilator 100 11/20/19 02:00 72 16 91/72 (78) 100 11/20/19 01:30 59 19 119/54 (75) 100 11/20/19 01:00 61 15 146/55 (85) 100 11/20/19 01:00 15 146/55 Mechanical Ventilator 100 11/20/19 00:30 70 23 109/71 (84) 100 11/20/19 00:00 55 11/20/19 00:00 Mechanical Ventilator Mechanical Ventilator 11/20/19 00:00 13 97/53 Mechanical Ventilator 100 11/20/19 00:00 98.3 57 14 97/55 (69) 100 11/20/19 00:00 100 11/19/19 23:30 55 12 107/52 (70) 100 11/19/19 23:00 55 20 108/57 (74) 100 11/19/19 23:00 20 108/57 Mechanical Ventilator 100 11/19/19 22:46 59 20 100 11/19/19 22:30 54 12 99/61 (74) 100 11/19/19 22:00 54 12 99/61 (74) 100 11/19/19 22:00 12 99/61 Mechanical Ventilator 100 11/19/19 21:30 81 20 116/65 (82) 100 11/19/19 21:00 60 12 95/55 (68) 98 11/19/19 21:00 18 95/55 Mechanical Ventilator 100 11/19/19 20:30 61 21 132/44 (73) 100 11/19/19 20:00 Mechanical Ventilator Mechanical Ventilator 11/19/19 20:00 19 103/73 Mechanical Ventilator 100 11/19/19 20:00 97.6 66 12 103/73 (83) 100 11/19/19 20:00 130 11/19/19 19:49 103/73 11/19/19 19:30 66 12 93/77 (82) 100 11/19/19 19:00 100 11/19/19 19:00 153/53 11/19/19 19:00 20 153/53 Mechanical Ventilator 100 11/19/19 19:00 61 14 153/53 (86) 100 11/19/19 18:52 54 20 100 11/19/19 18:45 65 7 128/87 (101) 100 11/19/19 18:41 127/22 11/19/19 18:30 57 19 127/22 (57) 100 11/19/19 18:27 51 20 97/56 (70) 100 11/19/19 18:00 57 20 109/39 (62) 100 11/19/19 18:00 20 109/39 Mechanical Ventilator 100 11/19/19 17:30 56 20 112/45 (67) 100 11/19/19 17:00 70 17 67/45 (52) 100 11/19/19 17:00 20 129/85 Mechanical Ventilator 100 11/19/19 16:30 66 15 102/47 (65) 100 11/19/19 16:00 Mechanical Ventilator Mechanical Ventilator 11/19/19 16:00 99.6 60 20 110/33 (58) 100 11/19/19 16:00 21 110/33 Mechanical Ventilator 100 11/19/19 16:00 58 11/19/19 15:45 64 20 117/65 (82) 100 11/19/19 15:31 63 18 102/65 (77) 100 11/19/19 15:00 67 20 125/66 (85) 100 11/19/19 15:00 21 125/66 Mechanical Ventilator 100 11/19/19 15:00 67 20 100 11/19/19 14:15 69 17 125/88 (100) 100 11/19/19 14:00 20 138/70 Mechanical Ventilator 100 11/19/19 14:00 70 19 138/70 (92) 93 11/19/19 13:50 100 11/19/19 13:46 82/51 11/19/19 13:45 72 20 54/41 (45) 93 11/19/19 13:30 20 82/51 Mechanical Ventilator 100 11/19/19 13:30 83 19 82/51 (61) 93 11/19/19 13:06 83 20 Mechanical Ventilator 100 11/19/19 13:00 83 20 100 11/19/19 13:00 100 11/19/19 13:00 20 85/45 Mechanical Ventilator 100 11/19/19 13:00 99.8 79 20 85/45 (58) 15 11/19/19 12:53 20 83/60 Mechanical Ventilator 100 11/19/19 12:30 83 22 106/60 (75) 93 11/19/19 12:30 100 11/19/19 12:00 123 11/19/19 12:00 123 29 113/77 (89) 93 11/19/19 12:00 Mechanical Ventilator Mechanical Ventilator 11/19/19 11:50 Non-Rebreather 15.0 100 11/19/19 11:30 10.0 40 I&O Intake and Output 11/19/19 11/20/19 19:00 07:00 Intake Total 598.4441 ml 932.25 ml Output Total 300 ml 355 ml Balance 298.4441 ml 577.25 ml Free Water 200 ml 300 ml IV Total 198.4441 ml 152.25 ml Tube Feeding 100 ml 480 ml Other 100 ml Output Urine Total 300 ml 355 ml # Bowel Movements 1 Drains: other Cardiovascular: RSR Respiratory: decreased breath sounds Abdomen: soft, non-tender, present bowel sounds Extremities: edema, no cyanosis Laboratory Tests Test 11/19/19 12:44 11/19/19 12:50 11/19/19 17:20 11/19/19 17:21 Arterial Blood pH 7.367 (7.350-7.450) Arterial Blood Partial Pressure CO2 43.8 mmHg (35.0-45.0) Arterial Blood Partial Pressure O2 38.9 mmHg (75.0-100.0) Arterial Blood HCO3 24.6 mmol/L (22.0-26.0) Arterial Blood Oxygen Saturation 73.6 % (95-100) *L Arterial Blood Base Excess -0.9 (-2-2) Steve Test Positive POC Whole Blood Glucose 128 MG/DL (74-106) H 61 MG/DL (74-106) L 83 MG/DL (74-106) Test 11/19/19 23:43 11/20/19 03:55 11/20/19 07:35 11/20/19 08:35 POC Whole Blood Glucose Pending White Blood Count 19.0 K/UL (4.8-10.8) H Red Blood Count 3.94 M/UL (4.20-5.40) L Hemoglobin 10.6 G/DL (12.0-16.0) L Hematocrit 35.5 % (37.0-47.0) L Mean Corpuscular Volume 90 FL (80-99) Mean Corpuscular Hemoglobin 26.8 PG (27.0-31.0) L Mean Corpuscular Hemoglobin Concent 29.8 G/DL (32.0-36.0) L Red Cell Distribution Width 17.5 % (11.6-14.8) H Platelet Count 264 K/UL (150-450) Mean Platelet Volume 7.0 FL (6.5-10.1) Neutrophils (%) (Auto) % (45.0-75.0) Lymphocytes (%) (Auto) % (20.0-45.0) Monocytes (%) (Auto) % (1.0-10.0) Eosinophils (%) (Auto) % (0.0-3.0) Basophils (%) (Auto) % (0.0-2.0) Differential Total Cells Counted 100 Neutrophils % (Manual) 91 % (45-75) H Lymphocytes % (Manual) 2 % (20-45) L Monocytes % (Manual) 7 % (1-10) Eosinophils % (Manual) 0 % (0-3) Basophils % (Manual) 0 % (0-2) Band Neutrophils 0 % (0-8) Platelet Estimate Adequate Platelet Morphology Normal Hypochromasia 1+ Poikilocytosis 1+ Anisocytosis 1+ Sodium Level 144 MMOL/L (136-145) Potassium Level 5.7 MMOL/L (3.5-5.1) H 4.6 MMOL/L (3.5-5.1) Chloride Level 109 MMOL/L (98-107) H Carbon Dioxide Level 35 MMOL/L (21-32) H Anion Gap 0 mmol/L (5-15) L Blood Urea Nitrogen 30 mg/dL (7-18) H Creatinine 1.0 MG/DL (0.55-1.30) Estimat Glomerular Filtration Rate 58.0 mL/min (>60) Glucose Level 111 MG/DL (74-106) H Calcium Level 8.7 MG/DL (8.5-10.1) Arterial Blood pH 7.387 (7.350-7.450) Arterial Blood Partial Pressure CO2 49.5 mmHg (35.0-45.0) H Arterial Blood Partial Pressure O2 195.0 mmHg (75.0-100.0) H Arterial Blood HCO3 29.1 mmol/L (22.0-26.0) H Arterial Blood Oxygen Saturation 99.2 % (95-100) Arterial Blood Base Excess 3.3 (-2-2) H Steve Test Positive Plan Problems: (1) Weak (2) UTI (urinary tract infection) (3) Hypoxia (4) Epistaxis Assessment & Plan: Severe after taxis left nostril Rhino Rocket placed hemostasis noted over the course 24 hours hemoglobin stable Lovenox been stopped. The balloon of both ports of the Rhino Rocket were deflated today. The rocket itself was not removed and will monitor over the course next 24 hours hemostasis. If so will gently remove and plan for local monitoring. Currently wean ventilator as tolerated. Goals of extubation when possible. deflated balloon 11/08 removed trumpet 11/09 will monitor for bleeding wean vent plan extubation discussed with pulm (5) Fluid overload Assessment & Plan: Continue central venous catheter for now. Will anticipate removal once patient stable for extubation. Thank you for allowing me to participate patient's care picc in line out (6) Diabetes (7) CHF (congestive heart failure) (8) Afib (9) Multifocal pneumonia (10) 2019 novel coronavirus disease (COVID-19) Assessment & Plan: + wean vent extubated failed reintubated consider trach (11) Respiratory failure Ortiz Fleming Nov 20, 2019 11:06
--- NOTE | 2019-11-20 11:53 | General Progress Note ---
Assessment/Plan Problem List: (1) Respiratory failure ICD Codes: J96.90 - Respiratory failure, unspecified, unspecified whether with hypoxia or hypercapnia SNOMED: 357777134 (2) 2019 novel coronavirus disease (COVID-19) ICD Codes: U07.1 - COVID-19 SNOMED: 168369671 (3) Multifocal pneumonia ICD Codes: J18.9 - Pneumonia, unspecified organism SNOMED: 299540008 (4) Afib ICD Codes: I48.91 - Unspecified atrial fibrillation SNOMED: 31894032 (5) CHF (congestive heart failure) ICD Codes: I50.9 - Heart failure, unspecified SNOMED: 65062330 (6) Diabetes ICD Codes: E11.9 - Type 2 diabetes mellitus without complications SNOMED: 22327708 (7) Fluid overload ICD Codes: E87.70 - Fluid overload, unspecified SNOMED: 37963357 (8) Epistaxis ICD Codes: R04.0 - Epistaxis SNOMED: 737845459 Status: unchanged Assessment/Plan: fu H&H prn blood transfusion NGTF no residuals iv fluid per nephrology off all laxatives given diarrhea patient off Eliquis will fu Subjective ROS Limited/Unobtainable: No Allergies: Coded Allergies: No Known Allergies (Unverified , 11/06/19) Objective Last 24 Hour Vital Signs Date Time Temp Pulse Resp B/P (MAP) Pulse Ox O2 Delivery O2 Flow Rate FiO2 11/20/19 11:30 91 15 96/65 (75) 100 11/20/19 11:00 14 92/67 Endotracheal Tube 60 11/20/19 11:00 92 15 92/67 (75) 100 11/20/19 10:59 102 21 60 11/20/19 10:30 106 15 102/55 (71) 100 11/20/19 10:00 104 14 97/74 (82) 100 11/20/19 10:00 13 97/74 Endotracheal Tube 80 11/20/19 09:45 107 13 105/68 (80) 100 11/20/19 09:44 112 125/71 11/20/19 09:30 97.8 112 14 125/71 (89) 100 11/20/19 09:15 117 16 131/66 (87) 100 11/20/19 09:00 123 14 162/108 (126) 100 11/20/19 09:00 14 162/108 Endotracheal Tube 80 11/20/19 08:30 113 21 144/86 (105) 100 11/20/19 08:00 Mechanical Ventilator Mechanical Ventilator 11/20/19 08:00 80 11/20/19 08:00 112 11/20/19 08:00 25 140/81 Endotracheal Tube 100 11/20/19 08:00 120 13 140/81 (100) 100 11/20/19 07:50 80 11/20/19 07:30 62 20 100 11/20/19 07:30 124 18 126/76 (93) 100 11/20/19 07:00 22 143/66 Mechanical Ventilator 100 11/20/19 07:00 67 22 143/66 (91) 100 11/20/19 06:45 20 129/67 Mechanical Ventilator 100 11/20/19 06:30 74 20 11/20/19 06:30 20 123/58 Mechanical Ventilator 100 11/20/19 06:30 74 20 123/58 (79) 100 11/20/19 06:15 19 159/49 Mechanical Ventilator 100 11/20/19 06:03 20 151/75 Mechanical Ventilator 100 11/20/19 06:00 62 20 136/58 (84) 100 11/20/19 06:00 20 151/75 Mechanical Ventilator 100 11/20/19 05:30 72 20 160/69 (99) 100 11/20/19 05:00 15 136/57 Mechanical Ventilator 100 11/20/19 05:00 62 15 136/57 (83) 100 11/20/19 04:30 63 18 136/54 (81) 100 11/20/19 04:00 Mechanical Ventilator Mechanical Ventilator 11/20/19 04:00 100 11/20/19 04:00 18 150/63 Mechanical Ventilator 100 11/20/19 04:00 98.8 65 20 150/63 (92) 100 11/20/19 04:00 73 11/20/19 03:30 60 18 110/48 (68) 100 11/20/19 03:20 73 20 100 11/20/19 03:00 21 147/60 Mechanical Ventilator 100 11/20/19 03:00 63 21 147/60 (89) 100 11/20/19 02:30 66 18 122/60 (80) 100 11/20/19 02:00 16 91/72 Mechanical Ventilator 100 11/20/19 02:00 72 16 91/72 (78) 100 11/20/19 01:30 59 19 119/54 (75) 100 11/20/19 01:00 61 15 146/55 (85) 100 11/20/19 01:00 15 146/55 Mechanical Ventilator 100 11/20/19 00:30 70 23 109/71 (84) 100 11/20/19 00:00 55 11/20/19 00:00 Mechanical Ventilator Mechanical Ventilator 11/20/19 00:00 13 97/53 Mechanical Ventilator 100 11/20/19 00:00 98.3 57 14 97/55 (69) 100 11/20/19 00:00 100 11/19/19 23:30 55 12 107/52 (70) 100 11/19/19 23:00 55 20 108/57 (74) 100 11/19/19 23:00 20 108/57 Mechanical Ventilator 100 11/19/19 22:46 59 20 100 11/19/19 22:30 54 12 99/61 (74) 100 11/19/19 22:00 54 12 99/61 (74) 100 11/19/19 22:00 12 99/61 Mechanical Ventilator 100 11/19/19 21:30 81 20 116/65 (82) 100 11/19/19 21:00 60 12 95/55 (68) 98 11/19/19 21:00 18 95/55 Mechanical Ventilator 100 11/19/19 20:30 61 21 132/44 (73) 100 11/19/19 20:00 Mechanical Ventilator Mechanical Ventilator 11/19/19 20:00 19 103/73 Mechanical Ventilator 100 11/19/19 20:00 97.6 66 12 103/73 (83) 100 11/19/19 20:00 130 11/19/19 19:49 103/73 11/19/19 19:30 66 12 93/77 (82) 100 11/19/19 19:00 100 11/19/19 19:00 153/53 11/19/19 19:00 20 153/53 Mechanical Ventilator 100 11/19/19 19:00 61 14 153/53 (86) 100 11/19/19 18:52 54 20 100 11/19/19 18:45 65 7 128/87 (101) 100 11/19/19 18:41 127/22 11/19/19 18:30 57 19 127/22 (57) 100 11/19/19 18:27 51 20 97/56 (70) 100 11/19/19 18:00 57 20 109/39 (62) 100 11/19/19 18:00 20 109/39 Mechanical Ventilator 100 11/19/19 17:30 56 20 112/45 (67) 100 11/19/19 17:00 70 17 67/45 (52) 100 11/19/19 17:00 20 129/85 Mechanical Ventilator 100 11/19/19 16:30 66 15 102/47 (65) 100 11/19/19 16:00 Mechanical Ventilator Mechanical Ventilator 11/19/19 16:00 99.6 60 20 110/33 (58) 100 11/19/19 16:00 21 110/33 Mechanical Ventilator 100 11/19/19 16:00 58 11/19/19 15:45 64 20 117/65 (82) 100 11/19/19 15:31 63 18 102/65 (77) 100 11/19/19 15:00 67 20 125/66 (85) 100 11/19/19 15:00 21 125/66 Mechanical Ventilator 100 11/19/19 15:00 67 20 100 11/19/19 14:15 69 17 125/88 (100) 100 11/19/19 14:00 20 138/70 Mechanical Ventilator 100 11/19/19 14:00 70 19 138/70 (92) 93 11/19/19 13:50 100 11/19/19 13:46 82/51 11/19/19 13:45 72 20 54/41 (45) 93 11/19/19 13:30 20 82/51 Mechanical Ventilator 100 11/19/19 13:30 83 19 82/51 (61) 93 11/19/19 13:06 83 20 Mechanical Ventilator 100 11/19/19 13:00 83 20 100 11/19/19 13:00 100 11/19/19 13:00 20 85/45 Mechanical Ventilator 100 11/19/19 13:00 99.8 79 20 85/45 (58) 15 11/19/19 12:53 20 83/60 Mechanical Ventilator 100 11/19/19 12:30 83 22 106/60 (75) 93 11/19/19 12:30 100 11/19/19 12:00 123 11/19/19 12:00 123 29 113/77 (89) 93 11/19/19 12:00 Mechanical Ventilator Mechanical Ventilator Intake and Output 11/19/19 11/20/19 19:00 07:00 Intake Total 598.4441 ml 932.25 ml Output Total 300 ml 355 ml Balance 298.4441 ml 577.25 ml Free Water 200 ml 300 ml IV Total 198.4441 ml 152.25 ml Tube Feeding 100 ml 480 ml Other 100 ml Output Urine Total 300 ml 355 ml # Bowel Movements 1 Laboratory Tests 11/19/19 12:44: Arterial Blood pH 7.367, Arterial Blood Partial Pressure CO2 43.8, Arterial Blood Partial Pressure O2 38.9*L, Arterial Blood HCO3 24.6, Arterial Blood Oxygen Saturation 73.6*L, Arterial Blood Base Excess -0.9, Steve Test Positive 11/19/19 12:50: POC Whole Blood Glucose 128H 11/19/19 17:20: POC Whole Blood Glucose 61L 11/19/19 17:21: POC Whole Blood Glucose 83 11/19/19 23:43: POC Whole Blood Glucose [Pending] 11/20/19 03:55: White Blood Count 19.0H, Red Blood Count 3.94L, Hemoglobin 10.6L, Hematocrit 35.5L, Mean Corpuscular Volume 90, Mean Corpuscular Hemoglobin 26.8L, Mean Corpuscular Hemoglobin Concent 29.8L, Red Cell Distribution Width 17.5H, Platelet Count 264, Mean Platelet Volume 7.0, Neutrophils (%) (Auto) , Lymphocytes (%) (Auto) , Monocytes (%) (Auto) , Eosinophils (%) (Auto) , Basophils (%) (Auto) , Differential Total Cells Counted 100, Neutrophils % ( Manual) 91H, Lymphocytes % (Manual) 2L, Monocytes % (Manual) 7, Eosinophils % ( Manual) 0, Basophils % (Manual) 0, Band Neutrophils 0, Platelet Estimate Adequate, Platelet Morphology Normal, Hypochromasia 1+, Poikilocytosis 1+, Anisocytosis 1+, Sodium Level 144, Potassium Level 5.7H, Chloride Level 109H, Carbon Dioxide Level 35H, Anion Gap 0L, Blood Urea Nitrogen 30H, Creatinine 1.0 , Estimat Glomerular Filtration Rate 58.0, Glucose Level 111H, Calcium Level 8.7 11/20/19 07:35: Arterial Blood pH 7.387, Arterial Blood Partial Pressure CO2 49.5H, Arterial Blood Partial Pressure O2 195.0H, Arterial Blood HCO3 29.1H, Arterial Blood Oxygen Saturation 99.2, Arterial Blood Base Excess 3.3H, Steve Test Positive 11/20/19 08:35: Potassium Level 4.6 Height (Feet): 5 Height (Inches): 3.00 Weight (Pounds): 319 General Appearance: no apparent distress EENT: normal ENT inspection Neck: supple Cardiovascular: tachycardia Respiratory/Chest: decreased breath sounds Abdomen: hypoactive bowel sounds Extremities: non-tender Case Patel MD Nov 20, 2019 11:53
--- NOTE | 2019-11-20 13:14 | Diagnostic Imaging Report ---
Procedure: XRAY Chest 1v Reason for study: Shortness of breath. Comparison films: 11/19/2019. FINDINGS: Endotracheal tube remains in place. Bilateral infiltrates not significant change. Cardiomegaly stable. CP angles are sharp. The bony thorax appear unremarkable. IMPRESSION: NO SIGNIFICANT CHANGE COMPARED TO PREVIOUS EXAM.
--- NOTE | 2019-11-20 13:41 | Nephrology Progress Note ---
Assessment/Plan Problem List: (1) Electrolyte imbalance (2) Diabetes (3) 2019 novel coronavirus disease (COVID-19) (4) Respiratory failure Assessment 1. COVID-19 pneumonia. 2. Diabetes and hyperglycemia 3. Hypertension. 4. Hypoxic respiratory failure 5. Morbid obesity with BMI of 65.5 6. Nasal bleeding 7. Lactic acidosis 8. Hyperkalemia Plan November 19: Repeat serum potassium normal. Renal parameters within normal limit. Continue per consultants. November 18: Levemir stopped since IV fluid and dexamethasone are discontinued and patient blood sugar went down. Renal parameters are stable. Continues to be on ventilator. Previously: Renal parameters stable Weaning is being attempted patient's urine output is low. We will give a trial of albumin and Lasix, As needed Discussed with RN Stop IV to D5W 75 cc an hour Levemir 20 units subcu every 12 hours Kayexalate for high potassium as needed Monitor electrolytes and renal parameters Tight blood sugar control, long-acting insulin as needed Keep the blood pressure in check Per orders Subjective ROS Limited/Unobtainable: Yes Objective Objective Last 24 Hour Vital Signs Date Time Temp Pulse Resp B/P (MAP) Pulse Ox O2 Delivery O2 Flow Rate FiO2 11/20/19 13:00 84 14 93/70 (78) 100 11/20/19 13:00 14 93/70 Endotracheal Tube 60 11/20/19 12:30 97.7 88 15 97/67 (77) 100 11/20/19 12:00 Mechanical Ventilator Mechanical Ventilator 11/20/19 12:00 60 11/20/19 12:00 15 91/74 Endotracheal Tube 60 11/20/19 12:00 82 15 91/74 (80) 100 11/20/19 12:00 81 11/20/19 11:30 91 15 96/65 (75) 100 11/20/19 11:00 14 92/67 Endotracheal Tube 60 11/20/19 11:00 92 15 92/67 (75) 100 11/20/19 10:59 102 21 60 11/20/19 10:30 106 15 102/55 (71) 100 11/20/19 10:00 104 14 97/74 (82) 100 11/20/19 10:00 13 97/74 Endotracheal Tube 80 11/20/19 09:45 107 13 105/68 (80) 100 7/31/20 09:44 112 125/71 11/20/19 09:30 97.8 112 14 125/71 (89) 100 11/20/19 09:15 117 16 131/66 (87) 100 11/20/19 09:00 123 14 162/108 (126) 100 11/20/19 09:00 14 162/108 Endotracheal Tube 80 11/20/19 08:30 113 21 144/86 (105) 100 11/20/19 08:00 Mechanical Ventilator Mechanical Ventilator 11/20/19 08:00 80 11/20/19 08:00 112 11/20/19 08:00 25 140/81 Endotracheal Tube 100 11/20/19 08:00 120 13 140/81 (100) 100 11/20/19 07:50 80 11/20/19 07:30 62 20 100 11/20/19 07:30 124 18 126/76 (93) 100 11/20/19 07:00 22 143/66 Mechanical Ventilator 100 11/20/19 07:00 67 22 143/66 (91) 100 11/20/19 06:45 20 129/67 Mechanical Ventilator 100 11/20/19 06:30 74 20 11/20/19 06:30 20 123/58 Mechanical Ventilator 100 11/20/19 06:30 74 20 123/58 (79) 100 11/20/19 06:15 19 159/49 Mechanical Ventilator 100 11/20/19 06:03 20 151/75 Mechanical Ventilator 100 11/20/19 06:00 62 20 136/58 (84) 100 11/20/19 06:00 20 151/75 Mechanical Ventilator 100 11/20/19 05:30 72 20 160/69 (99) 100 11/20/19 05:00 15 136/57 Mechanical Ventilator 100 11/20/19 05:00 62 15 136/57 (83) 100 11/20/19 04:30 63 18 136/54 (81) 100 11/20/19 04:00 Mechanical Ventilator Mechanical Ventilator 11/20/19 04:00 100 11/20/19 04:00 18 150/63 Mechanical Ventilator 100 11/20/19 04:00 98.8 65 20 150/63 (92) 100 11/20/19 04:00 73 11/20/19 03:30 60 18 110/48 (68) 100 11/20/19 03:20 73 20 100 11/20/19 03:00 21 147/60 Mechanical Ventilator 100 11/20/19 03:00 63 21 147/60 (89) 100 11/20/19 02:30 66 18 122/60 (80) 100 11/20/19 02:00 16 91/72 Mechanical Ventilator 100 11/20/19 02:00 72 16 91/72 (78) 100 11/20/19 01:30 59 19 119/54 (75) 100 11/20/19 01:00 61 15 146/55 (85) 100 11/20/19 01:00 15 146/55 Mechanical Ventilator 100 11/20/19 00:30 70 23 109/71 (84) 100 11/20/19 00:00 55 11/20/19 00:00 Mechanical Ventilator Mechanical Ventilator 11/20/19 00:00 13 97/53 Mechanical Ventilator 100 11/20/19 00:00 98.3 57 14 97/55 (69) 100 11/20/19 00:00 100 11/19/19 23:30 55 12 107/52 (70) 100 11/19/19 23:00 55 20 108/57 (74) 100 11/19/19 23:00 20 108/57 Mechanical Ventilator 100 11/19/19 22:46 59 20 100 11/19/19 22:30 54 12 99/61 (74) 100 11/19/19 22:00 54 12 99/61 (74) 100 11/19/19 22:00 12 99/61 Mechanical Ventilator 100 11/19/19 21:30 81 20 116/65 (82) 100 11/19/19 21:00 60 12 95/55 (68) 98 11/19/19 21:00 18 95/55 Mechanical Ventilator 100 11/19/19 20:30 61 21 132/44 (73) 100 11/19/19 20:00 Mechanical Ventilator Mechanical Ventilator 11/19/19 20:00 19 103/73 Mechanical Ventilator 100 11/19/19 20:00 97.6 66 12 103/73 (83) 100 11/19/19 20:00 130 11/19/19 19:49 103/73 11/19/19 19:30 66 12 93/77 (82) 100 11/19/19 19:00 100 11/19/19 19:00 153/53 11/19/19 19:00 20 153/53 Mechanical Ventilator 100 11/19/19 19:00 61 14 153/53 (86) 100 11/19/19 18:52 54 20 100 11/19/19 18:45 65 7 128/87 (101) 100 11/19/19 18:41 127/22 11/19/19 18:30 57 19 127/22 (57) 100 11/19/19 18:27 51 20 97/56 (70) 100 11/19/19 18:00 57 20 109/39 (62) 100 11/19/19 18:00 20 109/39 Mechanical Ventilator 100 11/19/19 17:30 56 20 112/45 (67) 100 11/19/19 17:00 70 17 67/45 (52) 100 11/19/19 17:00 20 129/85 Mechanical Ventilator 100 11/19/19 16:30 66 15 102/47 (65) 100 11/19/19 16:00 Mechanical Ventilator Mechanical Ventilator 11/19/19 16:00 99.6 60 20 110/33 (58) 100 11/19/19 16:00 21 110/33 Mechanical Ventilator 100 11/19/19 16:00 58 11/19/19 15:45 64 20 117/65 (82) 100 11/19/19 15:31 63 18 102/65 (77) 100 11/19/19 15:00 67 20 125/66 (85) 100 11/19/19 15:00 21 125/66 Mechanical Ventilator 100 11/19/19 15:00 67 20 100 11/19/19 14:15 69 17 125/88 (100) 100 11/19/19 14:00 20 138/70 Mechanical Ventilator 100 11/19/19 14:00 70 19 138/70 (92) 93 11/19/19 13:50 100 11/19/19 13:46 82/51 11/19/19 13:45 72 20 54/41 (45) 93 Intake and Output 11/19/19 11/20/19 19:00 07:00 Intake Total 598.4441 ml 932.25 ml Output Total 300 ml 355 ml Balance 298.4441 ml 577.25 ml Free Water 200 ml 300 ml IV Total 198.4441 ml 152.25 ml Tube Feeding 100 ml 480 ml Other 100 ml Output Urine Total 300 ml 355 ml # Bowel Movements 1 Laboratory Tests 11/19/19 17:20: POC Whole Blood Glucose 61L 11/19/19 17:21: POC Whole Blood Glucose 83 11/19/19 23:43: POC Whole Blood Glucose [Pending] 11/20/19 03:55: White Blood Count 19.0H, Red Blood Count 3.94L, Hemoglobin 10.6L, Hematocrit 35.5L, Mean Corpuscular Volume 90, Mean Corpuscular Hemoglobin 26.8L, Mean Corpuscular Hemoglobin Concent 29.8L, Red Cell Distribution Width 17.5H, Platelet Count 264, Mean Platelet Volume 7.0, Neutrophils (%) (Auto) , Lymphocytes (%) (Auto) , Monocytes (%) (Auto) , Eosinophils (%) (Auto) , Basophils (%) (Auto) , Differential Total Cells Counted 100, Neutrophils % ( Manual) 91H, Lymphocytes % (Manual) 2L, Monocytes % (Manual) 7, Eosinophils % ( Manual) 0, Basophils % (Manual) 0, Band Neutrophils 0, Platelet Estimate Adequate, Platelet Morphology Normal, Hypochromasia 1+, Poikilocytosis 1+, Anisocytosis 1+, Sodium Level 144, Potassium Level 5.7H, Chloride Level 109H, Carbon Dioxide Level 35H, Anion Gap 0L, Blood Urea Nitrogen 30H, Creatinine 1.0 , Estimat Glomerular Filtration Rate 58.0, Glucose Level 111H, Calcium Level 8.7 11/20/19 07:35: Arterial Blood pH 7.387, Arterial Blood Partial Pressure CO2 49.5H, Arterial Blood Partial Pressure O2 195.0H, Arterial Blood HCO3 29.1H, Arterial Blood Oxygen Saturation 99.2, Arterial Blood Base Excess 3.3H, Steve Test Positive 11/20/19 08:35: Potassium Level 4.6 Height (Feet): 5 Height (Inches): 3.00 Weight (Pounds): 319 General Appearance: no apparent distress EENT: other - Patient intubated on ventilator Cardiovascular: normal rate Respiratory/Chest: decreased breath sounds Abdomen: soft, distended Papa Young MD Nov 20, 2019 13:41
[2019-11-20] MEDS: DOPamine 400mg/250ml 250 ML IV SCH (18:12)
[2019-11-20] MEDS: Dyna-Hex 2% Top Sol 2oz TOPIC SCH (19:37)
[2019-11-20] MEDS: Norepinephrine 4mg/NS Premix 250 ML IV SCH (19:49)
[2019-11-20] MEDS: Solu-MEDROL 125mg Inj IVP SCH (20:50)
[2019-11-21] VITALS (47 sets, daily range): BP systolic 90–167; BP diastolic 44–109
[2019-11-21 04:52] LABS: ANION GAP 4 mmol/L (5-15); BLOOD UREA NITROGEN 32 mg/dL (7-18); CALCIUM 8.5 MG/DL (8.5-10.1); CARBON DIOXIDE 29 MMOL/L (21-32); CHLORIDE 107 MMOL/L (98-107); POTASSIUM 5.8 MMOL/L (3.5-5.1); SODIUM 140 MMOL/L (136-145)
[2019-11-21] MEDS: NovoLOG Insulin Flexpen SUBQ SCH ×3 (05:32→17:53)
--- NOTE | 2019-11-21 06:59 | General Progress Note ---
Assessment/Plan Problem List: (1) Afib ICD Codes: I48.91 - Unspecified atrial fibrillation SNOMED: 37330627 (2) Epistaxis ICD Codes: R04.0 - Epistaxis SNOMED: 781449762 (3) Weak ICD Codes: R53.1 - Weakness SNOMED: 66055820 (4) UTI (urinary tract infection) ICD Codes: N39.0 - Urinary tract infection, site not specified SNOMED: 14229428 (5) Diabetes ICD Codes: E11.9 - Type 2 diabetes mellitus without complications SNOMED: 47737887 (6) CHF (congestive heart failure) ICD Codes: I50.9 - Heart failure, unspecified SNOMED: 43839738 (7) Multifocal pneumonia ICD Codes: J18.9 - Pneumonia, unspecified organism SNOMED: 816743382 (8) 2019 novel coronavirus disease (COVID-19) ICD Codes: U07.1 - COVID-19 SNOMED: 604092818 (9) Respiratory failure ICD Codes: J96.90 - Respiratory failure, unspecified, unspecified whether with hypoxia or hypercapnia SNOMED: 177107491 Status: unchanged Assessment/Plan: vent abx bp bs control cbc bmp am Subjective Constitutional: Reports: weakness Allergies: Coded Allergies: No Known Allergies (Unverified , 11/06/19) All Systems: reviewed and negative except above Subjective intub sedated in icu Objective Last 24 Hour Vital Signs Date Time Temp Pulse Resp B/P (MAP) Pulse Ox O2 Delivery O2 Flow Rate FiO2 11/21/19 06:30 109 20 11/21/19 06:30 109 20 118/61 (80) 92 11/21/19 06:00 117 20 103/48 (66) 92 11/21/19 06:00 20 103/48 Mechanical Ventilator 60 11/21/19 05:30 124 15 131/66 (87) 93 11/21/19 05:00 117 20 139/74 (95) 94 11/21/19 05:00 20 139/74 Mechanical Ventilator 60 11/21/19 04:30 102 16 128/78 (95) 97 11/21/19 04:15 97 17 98/53 (68) 96 11/21/19 04:00 Mechanical Ventilator Mechanical Ventilator 11/21/19 04:00 60 11/21/19 04:00 98.4 94 20 90/48 (62) 96 11/21/19 04:00 20 90/48 Mechanical Ventilator 60 11/21/19 04:00 94 11/21/19 03:30 105 20 102/44 (63) 96 11/21/19 03:06 107 20 40 11/21/19 03:00 103 16 101/67 (78) 97 11/21/19 03:00 16 101/67 Mechanical Ventilator 60 11/21/19 02:30 107 15 92/56 (68) 96 11/21/19 02:00 22 137/91 Mechanical Ventilator 60 11/21/19 02:00 111 22 137/91 (106) 98 11/21/19 01:30 100 20 106/62 (77) 95 11/21/19 01:00 16 127/84 Mechanical Ventilator 60 11/21/19 01:00 109 16 127/84 (98) 97 11/21/19 00:30 108 19 126/96 (106) 97 11/21/19 00:00 Mechanical Ventilator Mechanical Ventilator 11/21/19 00:00 60 11/21/19 00:00 20 111/48 Mechanical Ventilator 60 11/21/19 00:00 98.0 96 20 111/48 (69) 96 11/21/19 00:00 96 11/20/19 23:30 101 20 121/43 (69) 97 11/20/19 23:00 98 20 101/58 (72) 97 11/20/19 23:00 20 101/58 Mechanical Ventilator 60 11/20/19 23:00 104 20 40 11/20/19 22:30 101 20 114/81 (92) 100 11/20/19 22:00 95 20 105/51 (69) 100 11/20/19 22:00 20 105/51 Mechanical Ventilator 60 11/20/19 21:30 99 16 109/88 (95) 100 11/20/19 21:29 95 16 109/42 (64) 100 11/20/19 21:00 92 20 114/69 (84) 100 11/20/19 21:00 20 114/69 Mechanical Ventilator 60 11/20/19 20:50 93 104/57 11/20/19 20:30 98 16 107/68 (81) 100 11/20/19 20:00 Mechanical Ventilator Mechanical Ventilator 11/20/19 20:00 97.3 99 20 135/74 (94) 100 11/20/19 20:00 60 11/20/19 19:52 20 133/61 Mechanical Ventilator 60 11/20/19 19:49 104/57 11/20/19 19:30 101 20 127/64 (85) 100 11/20/19 19:23 102 11/20/19 19:00 89 19 86/67 (73) 100 11/20/19 19:00 19 86/67 Endotracheal Tube 60 11/20/19 18:52 100 20 40 11/20/19 18:30 98 20 93/61 (72) 100 11/20/19 18:00 102 20 103/60 (74) 100 11/20/19 18:00 22 103/60 Endotracheal Tube 60 11/20/19 17:30 86 20 100/58 (72) 100 11/20/19 17:08 96.9 92 20 111/69 (83) 99 11/20/19 17:00 20 111/69 Endotracheal Tube 60 11/20/19 16:30 102 20 125/84 (98) 100 11/20/19 16:02 101 20 115/72 (86) 100 11/20/19 16:00 92 11/20/19 16:00 20 115/72 Endotracheal Tube 60 11/20/19 16:00 Mechanical Ventilator Mechanical Ventilator 11/20/19 16:00 60 11/20/19 15:30 100 20 143/82 (102) 100 11/20/19 15:00 22 102/68 Endotracheal Tube 40 11/20/19 15:00 92 20 102/68 (79) 100 11/20/19 14:50 79 20 40 11/20/19 14:30 98 17 96/55 (69) 100 11/20/19 14:00 20 100/65 Endotracheal Tube 40 11/20/19 14:00 84 14 100/65 (77) 100 11/20/19 13:30 92 14 96/58 (71) 100 11/20/19 13:00 84 14 93/70 (78) 100 11/20/19 13:00 14 93/70 Endotracheal Tube 60 11/20/19 12:30 97.7 88 15 97/67 (77) 100 11/20/19 12:00 Mechanical Ventilator Mechanical Ventilator 11/20/19 12:00 60 11/20/19 12:00 15 91/74 Endotracheal Tube 60 11/20/19 12:00 82 15 91/74 (80) 100 11/20/19 12:00 81 11/20/19 11:30 91 15 96/65 (75) 100 11/20/19 11:00 14 92/67 Endotracheal Tube 60 11/20/19 11:00 92 15 92/67 (75) 100 11/20/19 10:59 102 21 60 11/20/19 10:30 106 15 102/55 (71) 100 11/20/19 10:00 104 14 97/74 (82) 100 11/20/19 10:00 13 97/74 Endotracheal Tube 80 11/20/19 09:45 107 13 105/68 (80) 100 11/20/19 09:44 112 125/71 11/20/19 09:30 97.8 112 14 125/71 (89) 100 11/20/19 09:15 117 16 131/66 (87) 100 11/20/19 09:00 123 14 162/108 (126) 100 11/20/19 09:00 14 162/108 Endotracheal Tube 80 11/20/19 08:30 113 21 144/86 (105) 100 11/20/19 08:00 Mechanical Ventilator Mechanical Ventilator 11/20/19 08:00 80 11/20/19 08:00 112 11/20/19 08:00 25 140/81 Endotracheal Tube 100 11/20/19 08:00 120 13 140/81 (100) 100 11/20/19 07:50 80 11/20/19 07:30 62 20 100 11/20/19 07:30 124 18 126/76 (93) 100 11/20/19 07:00 22 143/66 Mechanical Ventilator 100 11/20/19 07:00 67 22 143/66 (91) 100 Intake and Output 11/20/19 11/21/19 19:00 07:00 Intake Total 800 ml 709 ml Output Total 290 ml 420 ml Balance 510 ml 289 ml Free Water 100 ml IV Total 220 ml 209 ml Tube Feeding 480 ml 440 ml Other 60 ml Output Urine Total 290 ml 420 ml Laboratory Tests 11/20/19 07:35: Arterial Blood pH 7.387, Arterial Blood Partial Pressure CO2 49.5H, Arterial Blood Partial Pressure O2 195.0H, Arterial Blood HCO3 29.1H, Arterial Blood Oxygen Saturation 99.2, Arterial Blood Base Excess 3.3H, Steve Test Positive 11/20/19 08:35: Potassium Level 4.6 11/20/19 23:33: POC Whole Blood Glucose 158H 11/21/19 03:15: Potassium Level 5.8H, Sodium Level 140, Chloride Level 107, Carbon Dioxide Level 29, Anion Gap 4L, Blood Urea Nitrogen 32H, Creatinine 1.0, Estimat Glomerular Filtration Rate 58.0, Glucose Level 152H, Calcium Level 8.5 11/21/19 05:15: POC Whole Blood Glucose 224H Height (Feet): 5 Height (Inches): 3.00 Weight (Pounds): 311 General Appearance: lethargic EENT: normal ENT inspection Neck: normal alignment Cardiovascular: normal rate, regular rhythm Respiratory/Chest: no respiratory distress, no accessory muscle use Extremities: normal inspection Skin: normal pigmentation Gustabo Carter DO Nov 21, 2019 06:59
--- NOTE | 2019-11-21 07:45 | General Progress Note ---
Assessment/Plan Problem List: (1) Hypoxia ICD Codes: R09.02 - Hypoxemia SNOMED: 573763149 (2) CHF (congestive heart failure) ICD Codes: I50.9 - Heart failure, unspecified SNOMED: 37154298 (3) Diabetes ICD Codes: E11.9 - Type 2 diabetes mellitus without complications SNOMED: 91858043 (4) Fluid overload ICD Codes: E87.70 - Fluid overload, unspecified SNOMED: 31519962 (5) 2019 novel coronavirus disease (COVID-19) ICD Codes: U07.1 - COVID-19 SNOMED: 489072293 Status: unchanged Assessment/Plan: no need for basal insulin continue Novolog sliding scale every 6 hours hypoglycemia protocol in order Subjective ROS Limited/Unobtainable: Yes Allergies: Coded Allergies: No Known Allergies (Unverified , 11/06/19) Subjective events noted glucose values are slightly on higher side no recurrence of hypoglycemia still in ICU Item Value Date Time Bedside Blood Glucose 224 mg/dl H 11/21/19 0532 Bedside Blood Glucose 158 mg/dl H 11/20/19 2336 Bedside Blood Glucose 129 mg/dl H 11/20/19 1800 Bedside Blood Glucose 109 mg/dl 11/20/19 1200 Bedside Blood Glucose 96 mg/dl 11/20/19 0600 Objective Last 24 Hour Vital Signs Date Time Temp Pulse Resp B/P (MAP) Pulse Ox O2 Delivery O2 Flow Rate FiO2 11/21/19 07:00 119 20 131/59 (83) 93 11/21/19 07:00 20 131/59 Mechanical Ventilator 60 11/21/19 06:30 109 20 11/21/19 06:30 109 20 118/61 (80) 92 11/21/19 06:00 117 20 103/48 (66) 92 11/21/19 06:00 20 103/48 Mechanical Ventilator 60 11/21/19 05:30 124 15 131/66 (87) 93 11/21/19 05:00 117 20 139/74 (95) 94 11/21/19 05:00 20 139/74 Mechanical Ventilator 60 11/21/19 04:30 102 16 128/78 (95) 97 11/21/19 04:15 97 17 98/53 (68) 96 11/21/19 04:00 Mechanical Ventilator Mechanical Ventilator 11/21/19 04:00 60 11/21/19 04:00 98.4 94 20 90/48 (62) 96 11/21/19 04:00 20 90/48 Mechanical Ventilator 60 11/21/19 04:00 94 11/21/19 03:30 105 20 102/44 (63) 96 11/21/19 03:06 107 20 40 11/21/19 03:00 103 16 101/67 (78) 97 11/21/19 03:00 16 101/67 Mechanical Ventilator 60 11/21/19 02:30 107 15 92/56 (68) 96 11/21/19 02:00 22 137/91 Mechanical Ventilator 60 11/21/19 02:00 111 22 137/91 (106) 98 11/21/19 01:30 100 20 106/62 (77) 95 11/21/19 01:00 16 127/84 Mechanical Ventilator 60 11/21/19 01:00 109 16 127/84 (98) 97 11/21/19 00:30 108 19 126/96 (106) 97 11/21/19 00:00 Mechanical Ventilator Mechanical Ventilator 11/21/19 00:00 60 11/21/19 00:00 20 111/48 Mechanical Ventilator 60 11/21/19 00:00 98.0 96 20 111/48 (69) 96 11/21/19 00:00 96 11/20/19 23:30 101 20 121/43 (69) 97 11/20/19 23:00 98 20 101/58 (72) 97 11/20/19 23:00 20 101/58 Mechanical Ventilator 60 11/20/19 23:00 104 20 40 11/20/19 22:30 101 20 114/81 (92) 100 11/20/19 22:00 95 20 105/51 (69) 100 11/20/19 22:00 20 105/51 Mechanical Ventilator 60 11/20/19 21:30 99 16 109/88 (95) 100 11/20/19 21:29 95 16 109/42 (64) 100 11/20/19 21:00 92 20 114/69 (84) 100 11/20/19 21:00 20 114/69 Mechanical Ventilator 60 11/20/19 20:50 93 104/57 11/20/19 20:30 98 16 107/68 (81) 100 11/20/19 20:00 Mechanical Ventilator Mechanical Ventilator 11/20/19 20:00 97.3 99 20 135/74 (94) 100 11/20/19 20:00 60 11/20/19 19:52 20 133/61 Mechanical Ventilator 60 11/20/19 19:49 104/57 11/20/19 19:30 101 20 127/64 (85) 100 11/20/19 19:23 102 11/20/19 19:00 89 19 86/67 (73) 100 11/20/19 19:00 19 86/67 Endotracheal Tube 60 11/20/19 18:52 100 20 40 11/20/19 18:30 98 20 93/61 (72) 100 11/20/19 18:00 102 20 103/60 (74) 100 11/20/19 18:00 22 103/60 Endotracheal Tube 60 11/20/19 17:30 86 20 100/58 (72) 100 11/20/19 17:08 96.9 92 20 111/69 (83) 99 11/20/19 17:00 20 111/69 Endotracheal Tube 60 11/20/19 16:30 102 20 125/84 (98) 100 11/20/19 16:02 101 20 115/72 (86) 100 11/20/19 16:00 92 11/20/19 16:00 20 115/72 Endotracheal Tube 60 11/20/19 16:00 Mechanical Ventilator Mechanical Ventilator 11/20/19 16:00 60 11/20/19 15:30 100 20 143/82 (102) 100 11/20/19 15:00 22 102/68 Endotracheal Tube 40 11/20/19 15:00 92 20 102/68 (79) 100 11/20/19 14:50 79 20 40 11/20/19 14:30 98 17 96/55 (69) 100 11/20/19 14:00 20 100/65 Endotracheal Tube 40 11/20/19 14:00 84 14 100/65 (77) 100 11/20/19 13:30 92 14 96/58 (71) 100 11/20/19 13:00 84 14 93/70 (78) 100 11/20/19 13:00 14 93/70 Endotracheal Tube 60 11/20/19 12:30 97.7 88 15 97/67 (77) 100 11/20/19 12:00 Mechanical Ventilator Mechanical Ventilator 11/20/19 12:00 60 11/20/19 12:00 15 91/74 Endotracheal Tube 60 11/20/19 12:00 82 15 91/74 (80) 100 11/20/19 12:00 81 11/20/19 11:30 91 15 96/65 (75) 100 11/20/19 11:00 14 92/67 Endotracheal Tube 60 11/20/19 11:00 92 15 92/67 (75) 100 11/20/19 10:59 102 21 60 11/20/19 10:30 106 15 102/55 (71) 100 11/20/19 10:00 104 14 97/74 (82) 100 11/20/19 10:00 13 97/74 Endotracheal Tube 80 11/20/19 09:45 107 13 105/68 (80) 100 11/20/19 09:44 112 125/71 11/20/19 09:30 97.8 112 14 125/71 (89) 100 11/20/19 09:15 117 16 131/66 (87) 100 11/20/19 09:00 123 14 162/108 (126) 100 11/20/19 09:00 14 162/108 Endotracheal Tube 80 11/20/19 08:30 113 21 144/86 (105) 100 11/20/19 08:00 Mechanical Ventilator Mechanical Ventilator 11/20/19 08:00 80 11/20/19 08:00 112 11/20/19 08:00 25 140/81 Endotracheal Tube 100 11/20/19 08:00 120 13 140/81 (100) 100 11/20/19 07:50 80 Intake and Output 11/20/19 11/21/19 19:00 07:00 Intake Total 800 ml 768 ml Output Total 290 ml 470 ml Balance 510 ml 298 ml Free Water 100 ml IV Total 220 ml 228 ml Tube Feeding 480 ml 480 ml Other 60 ml Output Urine Total 290 ml 470 ml Laboratory Tests 11/20/19 08:35: Potassium Level 4.6 11/20/19 23:33: POC Whole Blood Glucose 158H 11/21/19 03:15: Potassium Level 5.8H, Sodium Level 140, Chloride Level 107, Carbon Dioxide Level 29, Anion Gap 4L, Blood Urea Nitrogen 32H, Creatinine 1.0, Estimat Glomerular Filtration Rate 58.0, Glucose Level 152H, Calcium Level 8.5 11/21/19 05:15: POC Whole Blood Glucose 224H Height (Feet): 5 Height (Inches): 3.00 Weight (Pounds): 311 Objective Current Medications Medications (Trade) Dose Ordered Sig/Robyn Route PRN Reason Start Time Stop Time Status Last Admin Dose Admin Acetaminophen (Tylenol) 650 mg Q6H PRN NG Temp >100.5 11/12/19 00:15 12/12/19 00:14 11/16/19 09:02 Amiodarone HCl (Cordarone) 400 mg EVERY 12 HOURS ORAL 11/20/19 09:30 02/18/20 09:29 11/20/19 20:51 Chlorhexidine Gluconate (Miya-Hex 2%) 1 applic DAILY@2000 TOPIC 11/08/19 21:30 02/06/20 21:29 11/20/19 19:37 Clonidine HCl (Catapres Tab) 0.1 mg Q4H PRN NG For High Blood Pressure 11/13/19 17:00 02/09/20 10:59 Dextrose (Dextrose 50%) 25 ml Q30M PRN IV Hypoglycemia 11/08/19 12:30 02/05/20 02:59 11/18/19 23:54 Dextrose (Dextrose 50%) 50 ml Q30M PRN IV Hypoglycemia 11/08/19 12:30 02/05/20 02:59 Dopamine HCl/ Dextrose 250 ml @ 0 mls/hr Q24H IV 11/19/19 18:36 02/17/20 18:35 11/19/19 18:41 Famotidine (Pepcid I.v.) 20 mg Q12HR IVP 11/08/19 15:30 12/08/19 15:29 11/20/19 20:50 Fentanyl Citrate 250 ml @ 0 mls/hr Q24H IV 11/19/19 12:15 02/17/20 12:14 11/20/19 19:52 Folic Acid (Folate) 2 mg DAILY GT 11/15/19 09:00 12/15/19 08:59 11/20/19 08:47 Insulin Aspart (NovoLOG) EVERY 6 HOURS SUBQ 11/15/19 12:00 02/11/20 20:59 11/21/19 05:32 Lorazepam (Ativan 2mg/ml 1ml) 1 mg Q4H PRN IV For Anxiety 11/14/19 10:00 11/21/19 09:59 11/16/19 09:00 Methylprednisolone Sodium Succinate (Solu-MEDROL) 60 mg EVERY 12 HOURS IVP 11/20/19 21:00 02/18/20 20:59 11/20/19 20:50 Metoprolol Tartrate (Lopressor) 25 mg Q12HR ORAL 11/20/19 09:30 02/18/20 09:29 11/20/19 20:50 Norepinephrine Bitartrate 250 ml @ 0 mls/hr Q24H IV 11/19/19 19:49 02/17/20 19:48 Alphonse Ojeda MD Nov 21, 2019 07:45
[2019-11-21 08:46] LABS: HEMATOCRIT 37.9 % (37.0-47.0); HEMOGLOBIN 11.3 G/DL (12.0-16.0); MEAN CORPUSCULAR VOLUME 89 FL (80-99); PLATELET COUNT 221 K/UL (150-450); RED BLOOD COUNT 4.25 M/UL (4.20-5.40); RED CELL DISTRIBUTION WIDTH 17.6 % (11.6-14.8); WHITE BLOOD COUNT 21.2 K/UL (4.8-10.8)
[2019-11-21] MEDS: Amiodarone 200mg tab ORAL SCH ×2 (08:47→21:15)
[2019-11-21] MEDS: Solu-MEDROL 125mg Inj IVP SCH (08:47)
--- NOTE | 2019-11-21 09:13 | Surgery Progress Note ---
Surgery Progress Note Subjective Procedure Performed Left femoral triple-lumen catheter removal Additional Comments Ill-appearing labs noted oozing from catheter site Objective Last 24 Hour Vital Signs Date Time Temp Pulse Resp B/P (MAP) Pulse Ox O2 Delivery O2 Flow Rate FiO2 11/21/19 08:47 122 128/88 11/21/19 08:00 99.0 122 9 128/88 (101) 92 11/21/19 07:45 118 20 40 11/21/19 07:00 119 20 131/59 (83) 93 11/21/19 07:00 20 131/59 Mechanical Ventilator 60 11/21/19 06:30 109 20 11/21/19 06:30 109 20 118/61 (80) 92 11/21/19 06:00 117 20 103/48 (66) 92 11/21/19 06:00 20 103/48 Mechanical Ventilator 60 11/21/19 05:30 124 15 131/66 (87) 93 11/21/19 05:00 117 20 139/74 (95) 94 11/21/19 05:00 20 139/74 Mechanical Ventilator 60 11/21/19 04:30 102 16 128/78 (95) 97 11/21/19 04:15 97 17 98/53 (68) 96 11/21/19 04:00 Mechanical Ventilator Mechanical Ventilator 11/21/19 04:00 60 11/21/19 04:00 98.4 94 20 90/48 (62) 96 11/21/19 04:00 20 90/48 Mechanical Ventilator 60 11/21/19 04:00 94 11/21/19 03:30 105 20 102/44 (63) 96 11/21/19 03:06 107 20 40 11/21/19 03:00 103 16 101/67 (78) 97 11/21/19 03:00 16 101/67 Mechanical Ventilator 60 11/21/19 02:30 107 15 92/56 (68) 96 11/21/19 02:00 22 137/91 Mechanical Ventilator 60 11/21/19 02:00 111 22 137/91 (106) 98 11/21/19 01:30 100 20 106/62 (77) 95 11/21/19 01:00 16 127/84 Mechanical Ventilator 60 11/21/19 01:00 109 16 127/84 (98) 97 11/21/19 00:30 108 19 126/96 (106) 97 11/21/19 00:00 Mechanical Ventilator Mechanical Ventilator 11/21/19 00:00 60 11/21/19 00:00 20 111/48 Mechanical Ventilator 60 11/21/19 00:00 98.0 96 20 111/48 (69) 96 11/21/19 00:00 96 11/20/19 23:30 101 20 121/43 (69) 97 11/20/19 23:00 98 20 101/58 (72) 97 11/20/19 23:00 20 101/58 Mechanical Ventilator 60 11/20/19 23:00 104 20 40 11/20/19 22:30 101 20 114/81 (92) 100 11/20/19 22:00 95 20 105/51 (69) 100 11/20/19 22:00 20 105/51 Mechanical Ventilator 60 11/20/19 21:30 99 16 109/88 (95) 100 11/20/19 21:29 95 16 109/42 (64) 100 11/20/19 21:00 92 20 114/69 (84) 100 11/20/19 21:00 20 114/69 Mechanical Ventilator 60 11/20/19 20:50 93 104/57 11/20/19 20:30 98 16 107/68 (81) 100 11/20/19 20:00 Mechanical Ventilator Mechanical Ventilator 11/20/19 20:00 97.3 99 20 135/74 (94) 100 11/20/19 20:00 60 11/20/19 19:52 20 133/61 Mechanical Ventilator 60 11/20/19 19:49 104/57 11/20/19 19:30 101 20 127/64 (85) 100 11/20/19 19:23 102 11/20/19 19:00 89 19 86/67 (73) 100 11/20/19 19:00 19 86/67 Endotracheal Tube 60 11/20/19 18:52 100 20 40 11/20/19 18:30 98 20 93/61 (72) 100 11/20/19 18:00 102 20 103/60 (74) 100 11/20/19 18:00 22 103/60 Endotracheal Tube 60 11/20/19 17:30 86 20 100/58 (72) 100 11/20/19 17:08 96.9 92 20 111/69 (83) 99 11/20/19 17:00 20 111/69 Endotracheal Tube 60 11/20/19 16:30 102 20 125/84 (98) 100 11/20/19 16:02 101 20 115/72 (86) 100 11/20/19 16:00 92 11/20/19 16:00 20 115/72 Endotracheal Tube 60 11/20/19 16:00 Mechanical Ventilator Mechanical Ventilator 11/20/19 16:00 60 11/20/19 15:30 100 20 143/82 (102) 100 11/20/19 15:00 22 102/68 Endotracheal Tube 40 11/20/19 15:00 92 20 102/68 (79) 100 11/20/19 14:50 79 20 40 11/20/19 14:30 98 17 96/55 (69) 100 11/20/19 14:00 20 100/65 Endotracheal Tube 40 11/20/19 14:00 84 14 100/65 (77) 100 11/20/19 13:30 92 14 96/58 (71) 100 11/20/19 13:00 84 14 93/70 (78) 100 11/20/19 13:00 14 93/70 Endotracheal Tube 60 11/20/19 12:30 97.7 88 15 97/67 (77) 100 11/20/19 12:00 Mechanical Ventilator Mechanical Ventilator 11/20/19 12:00 60 11/20/19 12:00 15 91/74 Endotracheal Tube 60 11/20/19 12:00 82 15 91/74 (80) 100 11/20/19 12:00 81 11/20/19 11:30 91 15 96/65 (75) 100 11/20/19 11:00 14 92/67 Endotracheal Tube 60 11/20/19 11:00 92 15 92/67 (75) 100 11/20/19 10:59 102 21 60 11/20/19 10:30 106 15 102/55 (71) 100 11/20/19 10:00 104 14 97/74 (82) 100 11/20/19 10:00 13 97/74 Endotracheal Tube 80 11/20/19 09:45 107 13 105/68 (80) 100 11/20/19 09:44 112 125/71 11/20/19 09:30 97.8 112 14 125/71 (89) 100 11/20/19 09:15 117 16 131/66 (87) 100 I&O Intake and Output 11/20/19 11/21/19 19:00 07:00 Intake Total 800 ml 768 ml Output Total 290 ml 470 ml Balance 510 ml 298 ml Free Water 100 ml IV Total 220 ml 228 ml Tube Feeding 480 ml 480 ml Other 60 ml Output Urine Total 290 ml 470 ml Dressing: saturated Cardiovascular: RSR Respiratory: decreased breath sounds Abdomen: soft, non-tender, decreased bowel sounds Extremities: edema, no cyanosis Laboratory Tests Test 11/20/19 23:33 11/21/19 03:15 11/21/19 05:15 11/21/19 08:15 POC Whole Blood Glucose 158 MG/DL (74-106) H 224 MG/DL (74-106) H Sodium Level 140 MMOL/L (136-145) Potassium Level 5.8 MMOL/L (3.5-5.1) H Chloride Level 107 MMOL/L (98-107) Carbon Dioxide Level 29 MMOL/L (21-32) Anion Gap 4 mmol/L (5-15) L Blood Urea Nitrogen 32 mg/dL (7-18) H Creatinine 1.0 MG/DL (0.55-1.30) Estimat Glomerular Filtration Rate 58.0 mL/min (>60) Glucose Level 152 MG/DL (74-106) H Calcium Level 8.5 MG/DL (8.5-10.1) White Blood Count 21.2 K/UL (4.8-10.8) H Red Blood Count 4.25 M/UL (4.20-5.40) Hemoglobin 11.3 G/DL (12.0-16.0) L Hematocrit 37.9 % (37.0-47.0) Mean Corpuscular Volume 89 FL (80-99) Mean Corpuscular Hemoglobin 26.6 PG (27.0-31.0) L Mean Corpuscular Hemoglobin Concent 29.8 G/DL (32.0-36.0) L Red Cell Distribution Width 17.6 % (11.6-14.8) H Platelet Count 221 K/UL (150-450) Mean Platelet Volume 6.5 FL (6.5-10.1) Neutrophils (%) (Auto) % (45.0-75.0) Lymphocytes (%) (Auto) % (20.0-45.0) Monocytes (%) (Auto) % (1.0-10.0) Eosinophils (%) (Auto) % (0.0-3.0) Basophils (%) (Auto) % (0.0-2.0) Neutrophils % (Manual) Pending Lymphocytes % (Manual) Pending Platelet Estimate Pending Platelet Morphology Pending Plan Problems: (1) Weak (2) UTI (urinary tract infection) (3) Hypoxia (4) Epistaxis Assessment & Plan: Severe after taxis left nostril Rhino Rocket placed hemostasis noted over the course 24 hours hemoglobin stable Lovenox been stopped. The balloon of both ports of the Rhino Rocket were deflated today. The rocket itself was not removed and will monitor over the course next 24 hours hemostasis. If so will gently remove and plan for local monitoring. Currently wean ventilator as tolerated. Goals of extubation when possible. deflated balloon 11/08 removed trumpet 11/09 will monitor for bleeding wean vent plan extubation discussed with pulm (5) Fluid overload Assessment & Plan: Continue central venous catheter for now. Will anticipate removal once patient stable for extubation. Thank you for allowing me to participate patient's care picc in line out (6) Diabetes (7) CHF (congestive heart failure) (8) Afib (9) Multifocal pneumonia (10) 2019 novel coronavirus disease (COVID-19) Assessment & Plan: + wean vent extubated failed reintubated consider trach (11) Respiratory failure Ortiz Fleming Nov 21, 2019 09:13
[2019-11-21] MEDS: fentaNYL 2500mcg/NS 250ml 250 ML IV SCH ×2 (09:53→21:16)
--- NOTE | 2019-11-21 11:40 | Pulmonology Progress Note ---
Subjective ROS Limited/Unobtainable: Yes Interval Events: Re-intubated on 11/19/19; Constitutional: Denies: fever HEENT: Repors: no symptoms Respiratory: Reports: dry cough, shortness of breath Cardiovascular: Reports: no symptoms Gastrointestinal/Abdominal: Reports: no symptoms Allergies: Coded Allergies: No Known Allergies (Unverified , 11/06/19) All Systems: reviewed and negative except above Objective Last 24 Hour Vital Signs Date Time Temp Pulse Resp B/P (MAP) Pulse Ox O2 Delivery O2 Flow Rate FiO2 11/21/19 11:35 95 18 136/75 (95) 97 11/21/19 11:00 108 18 133/87 (102) 98 11/21/19 10:15 100 16 142/85 (104) 98 11/21/19 10:00 101 19 165/88 (113) 99 11/21/19 09:53 19 113/64 Mechanical Ventilator 40 11/21/19 09:30 100 2 93/72 (79) 92 11/21/19 09:00 126 16 122/83 (96) 92 11/21/19 08:47 122 128/88 11/21/19 08:00 Mechanical Ventilator Mechanical Ventilator 11/21/19 08:00 100 11/21/19 08:00 99.0 122 9 128/88 (101) 92 11/21/19 08:00 40 11/21/19 07:45 118 20 40 11/21/19 07:00 119 20 131/59 (83) 93 11/21/19 07:00 20 131/59 Mechanical Ventilator 60 11/21/19 06:30 109 20 11/21/19 06:30 109 20 118/61 (80) 92 11/21/19 06:00 117 20 103/48 (66) 92 11/21/19 06:00 20 103/48 Mechanical Ventilator 60 11/21/19 05:30 124 15 131/66 (87) 93 11/21/19 05:00 117 20 139/74 (95) 94 11/21/19 05:00 20 139/74 Mechanical Ventilator 60 11/21/19 04:30 102 16 128/78 (95) 97 11/21/19 04:15 97 17 98/53 (68) 96 11/21/19 04:00 Mechanical Ventilator Mechanical Ventilator 11/21/19 04:00 60 11/21/19 04:00 98.4 94 20 90/48 (62) 96 11/21/19 04:00 20 90/48 Mechanical Ventilator 60 11/21/19 04:00 94 11/21/19 03:30 105 20 102/44 (63) 96 11/21/19 03:06 107 20 40 11/21/19 03:00 103 16 101/67 (78) 97 11/21/19 03:00 16 101/67 Mechanical Ventilator 60 11/21/19 02:30 107 15 92/56 (68) 96 11/21/19 02:00 22 137/91 Mechanical Ventilator 60 11/21/19 02:00 111 22 137/91 (106) 98 11/21/19 01:30 100 20 106/62 (77) 95 11/21/19 01:00 16 127/84 Mechanical Ventilator 60 11/21/19 01:00 109 16 127/84 (98) 97 11/21/19 00:30 108 19 126/96 (106) 97 11/21/19 00:00 Mechanical Ventilator Mechanical Ventilator 11/21/19 00:00 60 11/21/19 00:00 20 111/48 Mechanical Ventilator 60 11/21/19 00:00 98.0 96 20 111/48 (69) 96 11/21/19 00:00 96 11/20/19 23:30 101 20 121/43 (69) 97 11/20/19 23:00 98 20 101/58 (72) 97 11/20/19 23:00 20 101/58 Mechanical Ventilator 60 11/20/19 23:00 104 20 40 11/20/19 22:30 101 20 114/81 (92) 100 11/20/19 22:00 95 20 105/51 (69) 100 11/20/19 22:00 20 105/51 Mechanical Ventilator 60 11/20/19 21:30 99 16 109/88 (95) 100 11/20/19 21:29 95 16 109/42 (64) 100 11/20/19 21:00 92 20 114/69 (84) 100 11/20/19 21:00 20 114/69 Mechanical Ventilator 60 11/20/19 20:50 93 104/57 11/20/19 20:30 98 16 107/68 (81) 100 11/20/19 20:00 Mechanical Ventilator Mechanical Ventilator 11/20/19 20:00 97.3 99 20 135/74 (94) 100 11/20/19 20:00 60 11/20/19 19:52 20 133/61 Mechanical Ventilator 60 11/20/19 19:49 104/57 11/20/19 19:30 101 20 127/64 (85) 100 11/20/19 19:23 102 11/20/19 19:00 89 19 86/67 (73) 100 11/20/19 19:00 19 86/67 Endotracheal Tube 60 11/20/19 18:52 100 20 40 11/20/19 18:30 98 20 93/61 (72) 100 11/20/19 18:00 102 20 103/60 (74) 100 11/20/19 18:00 22 103/60 Endotracheal Tube 60 11/20/19 17:30 86 20 100/58 (72) 100 11/20/19 17:08 96.9 92 20 111/69 (83) 99 11/20/19 17:00 20 111/69 Endotracheal Tube 60 11/20/19 16:30 102 20 125/84 (98) 100 11/20/19 16:02 101 20 115/72 (86) 100 11/20/19 16:00 92 11/20/19 16:00 20 115/72 Endotracheal Tube 60 11/20/19 16:00 Mechanical Ventilator Mechanical Ventilator 11/20/19 16:00 60 11/20/19 15:30 100 20 143/82 (102) 100 11/20/19 15:00 22 102/68 Endotracheal Tube 40 11/20/19 15:00 92 20 102/68 (79) 100 11/20/19 14:50 79 20 40 11/20/19 14:30 98 17 96/55 (69) 100 11/20/19 14:00 20 100/65 Endotracheal Tube 40 11/20/19 14:00 84 14 100/65 (77) 100 11/20/19 13:30 92 14 96/58 (71) 100 11/20/19 13:00 84 14 93/70 (78) 100 11/20/19 13:00 14 93/70 Endotracheal Tube 60 11/20/19 12:30 97.7 88 15 97/67 (77) 100 11/20/19 12:00 Mechanical Ventilator Mechanical Ventilator 11/20/19 12:00 60 11/20/19 12:00 15 91/74 Endotracheal Tube 60 11/20/19 12:00 82 15 91/74 (80) 100 11/20/19 12:00 81 Intake and Output 11/20/19 11/21/19 19:00 07:00 Intake Total 800 ml 768 ml Output Total 290 ml 470 ml Balance 510 ml 298 ml Free Water 100 ml IV Total 220 ml 228 ml Tube Feeding 480 ml 480 ml Other 60 ml Output Urine Total 290 ml 470 ml General Appearance: no acute distress HEENT: normocephalic Respiratory: decreased breath sounds Cardiovascular: normal peripheral pulses Abdomen: normal bowel sounds Extremities: no cyanosis Laboratory Tests 11/20/19 23:33: POC Whole Blood Glucose 158H 11/21/19 03:15: Sodium Level 140, Potassium Level 5.8H, Chloride Level 107, Carbon Dioxide Level 29, Anion Gap 4L, Blood Urea Nitrogen 32H, Creatinine 1.0, Estimat Glomerular Filtration Rate 58.0, Glucose Level 152H, Calcium Level 8.5 11/21/19 05:15: POC Whole Blood Glucose 224H 11/21/19 08:15: Potassium Level 5.0, White Blood Count 21.2H, Red Blood Count 4.25, Hemoglobin 11.3L, Hematocrit 37.9, Mean Corpuscular Volume 89, Mean Corpuscular Hemoglobin 26.6L, Mean Corpuscular Hemoglobin Concent 29.8L, Red Cell Distribution Width 17.6H, Platelet Count 221, Mean Platelet Volume 6.5, Neutrophils (%) (Auto) , Lymphocytes (%) (Auto) , Monocytes (%) (Auto) , Eosinophils (%) (Auto) , Basophils (%) (Auto) , Differential Total Cells Counted 100, Neutrophils % ( Manual) 97H, Lymphocytes % (Manual) 2L, Monocytes % (Manual) 1, Eosinophils % ( Manual) 0, Basophils % (Manual) 0, Band Neutrophils 0, Platelet Estimate Adequate, Platelet Morphology Normal, Hypochromasia 1+, Anisocytosis 1+ Current Medications Medications (Trade) Dose Ordered Sig/Robyn Route PRN Reason Start Time Stop Time Status Last Admin Dose Admin Acetaminophen (Tylenol) 650 mg Q6H PRN NG Temp >100.5 11/12/19 00:15 12/12/19 00:14 11/16/19 09:02 Amiodarone HCl (Cordarone) 400 mg EVERY 12 HOURS ORAL 11/20/19 09:30 02/18/20 09:29 11/21/19 08:47 Chlorhexidine Gluconate (Miya-Hex 2%) 1 applic DAILY@2000 TOPIC 11/08/19 21:30 02/06/20 21:29 11/20/19 19:37 Clonidine HCl (Catapres Tab) 0.1 mg Q4H PRN NG For High Blood Pressure 11/13/19 17:00 02/09/20 10:59 Dextrose (Dextrose 50%) 25 ml Q30M PRN IV Hypoglycemia 11/08/19 12:30 02/05/20 02:59 11/18/19 23:54 Dextrose (Dextrose 50%) 50 ml Q30M PRN IV Hypoglycemia 11/08/19 12:30 02/05/20 02:59 Dopamine HCl/ Dextrose 250 ml @ 0 mls/hr Q24H IV 11/19/19 18:36 02/17/20 18:35 11/19/19 18:41 Famotidine (Pepcid I.v.) 20 mg Q12HR IVP 11/08/19 15:30 12/08/19 15:29 11/21/19 08:47 Fentanyl Citrate 250 ml @ 0 mls/hr Q24H IV 11/19/19 12:15 02/17/20 12:14 11/21/19 09:53 Folic Acid (Folate) 2 mg DAILY GT 11/15/19 09:00 12/15/19 08:59 11/21/19 08:46 Insulin Aspart (NovoLOG) EVERY 6 HOURS SUBQ 11/15/19 12:00 02/11/20 20:59 11/21/19 05:32 Lorazepam (Ativan 2mg/ml 1ml) 1 mg Q4H PRN IV For Anxiety 11/21/19 11:00 11/28/19 10:59 Methylprednisolone Sodium Succinate (Solu-MEDROL) 60 mg EVERY 12 HOURS IVP 11/20/19 21:00 02/18/20 20:59 11/21/19 08:47 Metoprolol Tartrate (Lopressor) 25 mg Q12HR ORAL 11/20/19 09:30 02/18/20 09:29 11/21/19 08:47 Norepinephrine Bitartrate 250 ml @ 0 mls/hr Q24H IV 11/19/19 19:49 02/17/20 19:48 Assessment/Plan Assessment/Plan IMPRESSION: 1. COVID-19 pneumonia. 2. Diabetes mellitus and hypertension. 3. Lactic acidemia. 4. Epistaxis 5. Respiratory failure; failed extubation 6. Anasarca DISCUSSION: Careful and close monitoring. Continue medications May need tracheostomy On fentanyl pressors prn Will request new PICC Will start LAsix for anasarca I will follow carefully. Lakeisha Zavaleta Omar Syed MD Nov 21, 2019 11:40
--- NOTE | 2019-11-21 13:23 | Nephrology Progress Note ---
Assessment/Plan Problem List: (1) Electrolyte imbalance (2) Diabetes (3) 2019 novel coronavirus disease (COVID-19) (4) Respiratory failure Assessment 1. COVID-19 pneumonia. 2. Diabetes and hyperglycemia 3. Hypertension. 4. Hypoxic respiratory failure 5. Morbid obesity with BMI of 65.5 6. Nasal bleeding 7. Lactic acidosis 8. Hyperkalemia Plan November 20: Repeat serum potassium again normal. Renal parameters normal. Continue per consultants. November 19: Repeat serum potassium normal. Renal parameters within normal limit. Continue per consultants. November 18: Levemir stopped since IV fluid and dexamethasone are discontinued and patient blood sugar went down. Renal parameters are stable. Continues to be on ventilator. Previously: Renal parameters stable Weaning is being attempted patient's urine output is low. We will give a trial of albumin and Lasix, As needed Discussed with RN Stop IV to D5W 75 cc an hour Levemir 20 units subcu every 12 hours Kayexalate for high potassium as needed Monitor electrolytes and renal parameters Tight blood sugar control, long-acting insulin as needed Keep the blood pressure in check Per orders Subjective ROS Limited/Unobtainable: Yes Objective Objective Last 24 Hour Vital Signs Date Time Temp Pulse Resp B/P (MAP) Pulse Ox O2 Delivery O2 Flow Rate FiO2 11/21/19 12:30 102 18 139/81 (100) 99 11/21/19 12:00 98 11/21/19 12:00 Mechanical Ventilator Mechanical Ventilator 11/21/19 12:00 98.9 107 12 137/90 (106) 98 11/21/19 12:00 104 21 123/99 (107) 99 11/21/19 12:00 40 11/21/19 11:35 95 18 136/75 (95) 97 11/21/19 11:09 104 21 40 11/21/19 11:00 18 123/78 Mechanical Ventilator 40 11/21/19 11:00 108 18 133/87 (102) 98 11/21/19 10:15 100 16 142/85 (104) 98 11/21/19 10:00 18 120/70 Mechanical Ventilator 40 11/21/19 10:00 101 19 165/88 (113) 99 11/21/19 09:53 19 113/64 Mechanical Ventilator 40 11/21/19 09:30 100 2 93/72 (79) 92 11/21/19 09:00 126 16 122/83 (96) 92 11/21/19 08:47 122 128/88 11/21/19 08:00 Mechanical Ventilator Mechanical Ventilator 11/21/19 08:00 100 11/21/19 08:00 99.0 122 9 128/88 (101) 92 11/21/19 08:00 40 11/21/19 07:45 118 20 40 11/21/19 07:00 119 20 131/59 (83) 93 11/21/19 07:00 20 131/59 Mechanical Ventilator 60 11/21/19 06:30 109 20 11/21/19 06:30 109 20 118/61 (80) 92 11/21/19 06:00 117 20 103/48 (66) 92 11/21/19 06:00 20 103/48 Mechanical Ventilator 60 11/21/19 05:30 124 15 131/66 (87) 93 11/21/19 05:00 117 20 139/74 (95) 94 11/21/19 05:00 20 139/74 Mechanical Ventilator 60 11/21/19 04:30 102 16 128/78 (95) 97 11/21/19 04:15 97 17 98/53 (68) 96 11/21/19 04:00 Mechanical Ventilator Mechanical Ventilator 11/21/19 04:00 60 11/21/19 04:00 98.4 94 20 90/48 (62) 96 11/21/19 04:00 20 90/48 Mechanical Ventilator 60 11/21/19 04:00 94 11/21/19 03:30 105 20 102/44 (63) 96 11/21/19 03:06 107 20 40 11/21/19 03:00 103 16 101/67 (78) 97 11/21/19 03:00 16 101/67 Mechanical Ventilator 60 11/21/19 02:30 107 15 92/56 (68) 96 11/21/19 02:00 22 137/91 Mechanical Ventilator 60 11/21/19 02:00 111 22 137/91 (106) 98 11/21/19 01:30 100 20 106/62 (77) 95 11/21/19 01:00 16 127/84 Mechanical Ventilator 60 11/21/19 01:00 109 16 127/84 (98) 97 11/21/19 00:30 108 19 126/96 (106) 97 11/21/19 00:00 Mechanical Ventilator Mechanical Ventilator 11/21/19 00:00 60 11/21/19 00:00 20 111/48 Mechanical Ventilator 60 11/21/19 00:00 98.0 96 20 111/48 (69) 96 11/21/19 00:00 96 11/20/19 23:30 101 20 121/43 (69) 97 11/20/19 23:00 98 20 101/58 (72) 97 11/20/19 23:00 20 101/58 Mechanical Ventilator 60 11/20/19 23:00 104 20 40 11/20/19 22:30 101 20 114/81 (92) 100 11/20/19 22:00 95 20 105/51 (69) 100 11/20/19 22:00 20 105/51 Mechanical Ventilator 60 11/20/19 21:30 99 16 109/88 (95) 100 11/20/19 21:29 95 16 109/42 (64) 100 11/20/19 21:00 92 20 114/69 (84) 100 11/20/19 21:00 20 114/69 Mechanical Ventilator 60 11/20/19 20:50 93 104/57 11/20/19 20:30 98 16 107/68 (81) 100 11/20/19 20:00 Mechanical Ventilator Mechanical Ventilator 11/20/19 20:00 97.3 99 20 135/74 (94) 100 11/20/19 20:00 60 11/20/19 19:52 20 133/61 Mechanical Ventilator 60 11/20/19 19:49 104/57 11/20/19 19:30 101 20 127/64 (85) 100 11/20/19 19:23 102 11/20/19 19:00 89 19 86/67 (73) 100 11/20/19 19:00 19 86/67 Endotracheal Tube 60 11/20/19 18:52 100 20 40 11/20/19 18:30 98 20 93/61 (72) 100 11/20/19 18:00 102 20 103/60 (74) 100 11/20/19 18:00 22 103/60 Endotracheal Tube 60 11/20/19 17:30 86 20 100/58 (72) 100 11/20/19 17:08 96.9 92 20 111/69 (83) 99 11/20/19 17:00 20 111/69 Endotracheal Tube 60 7/31/20 16:30 102 20 125/84 (98) 100 11/20/19 16:02 101 20 115/72 (86) 100 11/20/19 16:00 92 11/20/19 16:00 20 115/72 Endotracheal Tube 60 11/20/19 16:00 Mechanical Ventilator Mechanical Ventilator 11/20/19 16:00 60 11/20/19 15:30 100 20 143/82 (102) 100 11/20/19 15:00 22 102/68 Endotracheal Tube 40 11/20/19 15:00 92 20 102/68 (79) 100 11/20/19 14:50 79 20 40 11/20/19 14:30 98 17 96/55 (69) 100 11/20/19 14:00 20 100/65 Endotracheal Tube 40 11/20/19 14:00 84 14 100/65 (77) 100 11/20/19 13:30 92 14 96/58 (71) 100 Intake and Output 11/20/19 11/21/19 19:00 07:00 Intake Total 800 ml 768 ml Output Total 290 ml 470 ml Balance 510 ml 298 ml Free Water 100 ml IV Total 220 ml 228 ml Tube Feeding 480 ml 480 ml Other 60 ml Output Urine Total 290 ml 470 ml Laboratory Tests 11/20/19 23:33: POC Whole Blood Glucose 158H 11/21/19 03:15: Sodium Level 140, Potassium Level 5.8H, Chloride Level 107, Carbon Dioxide Level 29, Anion Gap 4L, Blood Urea Nitrogen 32H, Creatinine 1.0, Estimat Glomerular Filtration Rate 58.0, Glucose Level 152H, Calcium Level 8.5 11/21/19 05:15: POC Whole Blood Glucose 224H 11/21/19 08:15: Potassium Level 5.0, White Blood Count 21.2H, Red Blood Count 4.25, Hemoglobin 11.3L, Hematocrit 37.9, Mean Corpuscular Volume 89, Mean Corpuscular Hemoglobin 26.6L, Mean Corpuscular Hemoglobin Concent 29.8L, Red Cell Distribution Width 17.6H, Platelet Count 221, Mean Platelet Volume 6.5, Neutrophils (%) (Auto) , Lymphocytes (%) (Auto) , Monocytes (%) (Auto) , Eosinophils (%) (Auto) , Basophils (%) (Auto) , Differential Total Cells Counted 100, Neutrophils % ( Manual) 97H, Lymphocytes % (Manual) 2L, Monocytes % (Manual) 1, Eosinophils % ( Manual) 0, Basophils % (Manual) 0, Band Neutrophils 0, Platelet Estimate Adequate, Platelet Morphology Normal, Hypochromasia 1+, Anisocytosis 1+ Height (Feet): 5 Height (Inches): 3.00 Weight (Pounds): 311 General Appearance: no apparent distress EENT: other - Being vented Cardiovascular: tachycardia Respiratory/Chest: decreased breath sounds Abdomen: distended Papa Young MD Nov 21, 2019 13:23
--- NOTE | 2019-11-21 14:20 | Cardiac Electrophysiology PN ---
Assessment/Plan Assessment/Plan 1. Paroxysmal atrial fibrillation. On metoprolol 25 q 12 and Amiodarone 400 q 12 hr. Off Eliquis in view of hematuria and black stool EF 55% on echo. 2. S/P Shock. Off pressors now. BP high again. Resumed Lopressor 25 bid 3. COVID positive pneumonia. S/P Remdesevir and dexamethasone. 4. Diabetes, on insulin. 5. Respiratory failure on the Vent. 6. S/P Massive nasal bleed. 7. Severe LE edema on Lasix drip now. [employer] Subjective Subjective In ICU on the vent with 40% Fio2. Hematuria and black stool improved off anticoagulation. Started on Lasix drip for severe LE edema In atrial fib rate controlled . Objective Last 24 Hour Vital Signs Date Time Temp Pulse Resp B/P (MAP) Pulse Ox O2 Delivery O2 Flow Rate FiO2 11/21/19 13:00 107 19 153/76 (101) 99 11/21/19 12:30 102 18 139/81 (100) 99 11/21/19 12:00 98 11/21/19 12:00 Mechanical Ventilator Mechanical Ventilator 11/21/19 12:00 18 122/76 Mechanical Ventilator 40 11/21/19 12:00 98.9 107 12 137/90 (106) 98 11/21/19 12:00 104 21 123/99 (107) 99 11/21/19 12:00 40 11/21/19 11:35 95 18 136/75 (95) 97 11/21/19 11:09 104 21 40 11/21/19 11:00 18 123/78 Mechanical Ventilator 40 11/21/19 11:00 108 18 133/87 (102) 98 11/21/19 10:15 100 16 142/85 (104) 98 11/21/19 10:00 18 120/70 Mechanical Ventilator 40 11/21/19 10:00 101 19 165/88 (113) 99 11/21/19 09:53 19 113/64 Mechanical Ventilator 40 11/21/19 09:30 100 2 93/72 (79) 92 11/21/19 09:00 126 16 122/83 (96) 92 11/21/19 08:47 122 128/88 11/21/19 08:00 Mechanical Ventilator Mechanical Ventilator 11/21/19 08:00 100 11/21/19 08:00 99.0 122 9 128/88 (101) 92 11/21/19 08:00 40 11/21/19 07:45 118 20 40 11/21/19 07:00 119 20 131/59 (83) 93 11/21/19 07:00 20 131/59 Mechanical Ventilator 60 11/21/19 06:30 109 20 11/21/19 06:30 109 20 118/61 (80) 92 11/21/19 06:00 117 20 103/48 (66) 92 11/21/19 06:00 20 103/48 Mechanical Ventilator 60 11/21/19 05:30 124 15 131/66 (87) 93 11/21/19 05:00 117 20 139/74 (95) 94 11/21/19 05:00 20 139/74 Mechanical Ventilator 60 11/21/19 04:30 102 16 128/78 (95) 97 11/21/19 04:15 97 17 98/53 (68) 96 11/21/19 04:00 Mechanical Ventilator Mechanical Ventilator 11/21/19 04:00 60 11/21/19 04:00 98.4 94 20 90/48 (62) 96 11/21/19 04:00 20 90/48 Mechanical Ventilator 60 11/21/19 04:00 94 11/21/19 03:30 105 20 102/44 (63) 96 11/21/19 03:06 107 20 40 11/21/19 03:00 103 16 101/67 (78) 97 11/21/19 03:00 16 101/67 Mechanical Ventilator 60 11/21/19 02:30 107 15 92/56 (68) 96 11/21/19 02:00 22 137/91 Mechanical Ventilator 60 11/21/19 02:00 111 22 137/91 (106) 98 11/21/19 01:30 100 20 106/62 (77) 95 11/21/19 01:00 16 127/84 Mechanical Ventilator 60 11/21/19 01:00 109 16 127/84 (98) 97 11/21/19 00:30 108 19 126/96 (106) 97 11/21/19 00:00 Mechanical Ventilator Mechanical Ventilator 11/21/19 00:00 60 11/21/19 00:00 20 111/48 Mechanical Ventilator 60 11/21/19 00:00 98.0 96 20 111/48 (69) 96 11/21/19 00:00 96 11/20/19 23:30 101 20 121/43 (69) 97 11/20/19 23:00 98 20 101/58 (72) 97 11/20/19 23:00 20 101/58 Mechanical Ventilator 60 11/20/19 23:00 104 20 40 11/20/19 22:30 101 20 114/81 (92) 100 11/20/19 22:00 95 20 105/51 (69) 100 11/20/19 22:00 20 105/51 Mechanical Ventilator 60 11/20/19 21:30 99 16 109/88 (95) 100 11/20/19 21:29 95 16 109/42 (64) 100 11/20/19 21:00 92 20 114/69 (84) 100 11/20/19 21:00 20 114/69 Mechanical Ventilator 60 11/20/19 20:50 93 104/57 11/20/19 20:30 98 16 107/68 (81) 100 11/20/19 20:00 Mechanical Ventilator Mechanical Ventilator 11/20/19 20:00 97.3 99 20 135/74 (94) 100 11/20/19 20:00 60 11/20/19 19:52 20 133/61 Mechanical Ventilator 60 11/20/19 19:49 104/57 11/20/19 19:30 101 20 127/64 (85) 100 11/20/19 19:23 102 11/20/19 19:00 89 19 86/67 (73) 100 11/20/19 19:00 19 86/67 Endotracheal Tube 60 11/20/19 18:52 100 20 40 11/20/19 18:30 98 20 93/61 (72) 100 11/20/19 18:00 102 20 103/60 (74) 100 11/20/19 18:00 22 103/60 Endotracheal Tube 60 11/20/19 17:30 86 20 100/58 (72) 100 11/20/19 17:08 96.9 92 20 111/69 (83) 99 11/20/19 17:00 20 111/69 Endotracheal Tube 60 11/20/19 16:30 102 20 125/84 (98) 100 11/20/19 16:02 101 20 115/72 (86) 100 11/20/19 16:00 92 11/20/19 16:00 20 115/72 Endotracheal Tube 60 11/20/19 16:00 Mechanical Ventilator Mechanical Ventilator 11/20/19 16:00 60 11/20/19 15:30 100 20 143/82 (102) 100 11/20/19 15:00 22 102/68 Endotracheal Tube 40 11/20/19 15:00 92 20 102/68 (79) 100 11/20/19 14:50 79 20 40 11/20/19 14:30 98 17 96/55 (69) 100 Intake and Output 11/20/19 11/21/19 19:00 07:00 Intake Total 800 ml 768 ml Output Total 290 ml 470 ml Balance 510 ml 298 ml Free Water 100 ml IV Total 220 ml 228 ml Tube Feeding 480 ml 480 ml Other 60 ml Output Urine Total 290 ml 470 ml Laboratory Tests Test 11/20/19 23:33 11/21/19 03:15 11/21/19 05:15 11/21/19 08:15 POC Whole Blood Glucose 158 MG/DL (74-106) H 224 MG/DL (74-106) H Sodium Level 140 MMOL/L (136-145) Potassium Level 5.8 MMOL/L (3.5-5.1) H 5.0 MMOL/L (3.5-5.1) Chloride Level 107 MMOL/L (98-107) Carbon Dioxide Level 29 MMOL/L (21-32) Anion Gap 4 mmol/L (5-15) L Blood Urea Nitrogen 32 mg/dL (7-18) H Creatinine 1.0 MG/DL (0.55-1.30) Estimat Glomerular Filtration Rate 58.0 mL/min (>60) Glucose Level 152 MG/DL (74-106) H Calcium Level 8.5 MG/DL (8.5-10.1) White Blood Count 21.2 K/UL (4.8-10.8) H Red Blood Count 4.25 M/UL (4.20-5.40) Hemoglobin 11.3 G/DL (12.0-16.0) L Hematocrit 37.9 % (37.0-47.0) Mean Corpuscular Volume 89 FL (80-99) Mean Corpuscular Hemoglobin 26.6 PG (27.0-31.0) L Mean Corpuscular Hemoglobin Concent 29.8 G/DL (32.0-36.0) L Red Cell Distribution Width 17.6 % (11.6-14.8) H Platelet Count 221 K/UL (150-450) Mean Platelet Volume 6.5 FL (6.5-10.1) Neutrophils (%) (Auto) % (45.0-75.0) Lymphocytes (%) (Auto) % (20.0-45.0) Monocytes (%) (Auto) % (1.0-10.0) Eosinophils (%) (Auto) % (0.0-3.0) Basophils (%) (Auto) % (0.0-2.0) Differential Total Cells Counted 100 Neutrophils % (Manual) 97 % (45-75) H Lymphocytes % (Manual) 2 % (20-45) L Monocytes % (Manual) 1 % (1-10) Eosinophils % (Manual) 0 % (0-3) Basophils % (Manual) 0 % (0-2) Band Neutrophils 0 % (0-8) Platelet Estimate Adequate Platelet Morphology Normal Hypochromasia 1+ Anisocytosis 1+ Objective HEAD AND NECK: No JVD. OG tube Orally intubated LUNGS: Coarse rhonchi. CARDIOVASCULAR: Irregularly irregular. S1 and S2 with no gallop or murmur. ABDOMEN: Soft. EXTREMITIES: 2 plus pitting edema. Gabe Snell MD Nov 21, 2019 14:20
--- NOTE | 2019-11-21 15:35 | General Progress Note ---
Assessment/Plan Status: unchanged Assessment/Plan: Assessment/Plan Problem List: (1) Respiratory failure ICD Codes: J96.90 - Respiratory failure, unspecified, unspecified whether with hypoxia or hypercapnia SNOMED: 656865452 (2) 2019 novel coronavirus disease (COVID-19) ICD Codes: U07.1 - COVID-19 SNOMED: 063956599 (3) Multifocal pneumonia ICD Codes: J18.9 - Pneumonia, unspecified organism SNOMED: 192751892 (4) Afib ICD Codes: I48.91 - Unspecified atrial fibrillation SNOMED: 70880908 (5) CHF (congestive heart failure) ICD Codes: I50.9 - Heart failure, unspecified SNOMED: 64149223 (6) Diabetes ICD Codes: E11.9 - Type 2 diabetes mellitus without complications SNOMED: 92823214 (7) Fluid overload ICD Codes: E87.70 - Fluid overload, unspecified SNOMED: 57803091 (8) Epistaxis ICD Codes: R04.0 - Epistaxis SNOMED: 767658452 (9) dysphagia, plans for trach and PEG Assessment/Plan: fu H&H prn blood transfusion NGTF no residuals iv fluid per nephrology off all laxatives given diarrhea patient off Eliquis will fu Subjective Allergies: Coded Allergies: No Known Allergies (Unverified , 11/06/19) Subjective On vent tolerating TF d/w RN Objective Last 24 Hour Vital Signs Date Time Temp Pulse Resp B/P (MAP) Pulse Ox O2 Delivery O2 Flow Rate FiO2 11/21/19 15:21 99 21 35 11/21/19 15:00 16 125/74 40 11/21/19 15:00 102 13 125/74 (91) 100 11/21/19 14:30 104 12 151/82 (105) 98 11/21/19 14:00 16 151/82 Mechanical Ventilator 40 11/21/19 14:00 105 12 147/100 (116) 98 11/21/19 13:30 108 16 155/109 (124) 99 11/21/19 13:00 107 19 153/76 (101) 99 11/21/19 13:00 15 153/76 Mechanical Ventilator 40 11/21/19 12:30 102 18 139/81 (100) 99 11/21/19 12:00 98 11/21/19 12:00 Mechanical Ventilator Mechanical Ventilator 11/21/19 12:00 18 122/76 Mechanical Ventilator 40 11/21/19 12:00 98.9 107 12 137/90 (106) 98 11/21/19 12:00 104 21 123/99 (107) 99 11/21/19 12:00 40 11/21/19 11:35 95 18 136/75 (95) 97 11/21/19 11:09 104 21 40 11/21/19 11:00 18 123/78 Mechanical Ventilator 40 11/21/19 11:00 108 18 133/87 (102) 98 11/21/19 10:15 100 16 142/85 (104) 98 11/21/19 10:00 18 120/70 Mechanical Ventilator 40 11/21/19 10:00 101 19 165/88 (113) 99 11/21/19 09:53 19 113/64 Mechanical Ventilator 40 11/21/19 09:30 100 2 93/72 (79) 92 11/21/19 09:00 126 16 122/83 (96) 92 11/21/19 08:47 122 128/88 11/21/19 08:00 Mechanical Ventilator Mechanical Ventilator 11/21/19 08:00 100 11/21/19 08:00 99.0 122 9 128/88 (101) 92 11/21/19 08:00 40 11/21/19 07:45 118 20 40 11/21/19 07:00 119 20 131/59 (83) 93 11/21/19 07:00 20 131/59 Mechanical Ventilator 60 11/21/19 06:30 109 20 11/21/19 06:30 109 20 118/61 (80) 92 11/21/19 06:00 117 20 103/48 (66) 92 11/21/19 06:00 20 103/48 Mechanical Ventilator 60 11/21/19 05:30 124 15 131/66 (87) 93 11/21/19 05:00 117 20 139/74 (95) 94 11/21/19 05:00 20 139/74 Mechanical Ventilator 60 11/21/19 04:30 102 16 128/78 (95) 97 11/21/19 04:15 97 17 98/53 (68) 96 11/21/19 04:00 Mechanical Ventilator Mechanical Ventilator 11/21/19 04:00 60 11/21/19 04:00 98.4 94 20 90/48 (62) 96 11/21/19 04:00 20 90/48 Mechanical Ventilator 60 11/21/19 04:00 94 11/21/19 03:30 105 20 102/44 (63) 96 11/21/19 03:06 107 20 40 11/21/19 03:00 103 16 101/67 (78) 97 11/21/19 03:00 16 101/67 Mechanical Ventilator 60 11/21/19 02:30 107 15 92/56 (68) 96 11/21/19 02:00 22 137/91 Mechanical Ventilator 60 11/21/19 02:00 111 22 137/91 (106) 98 11/21/19 01:30 100 20 106/62 (77) 95 11/21/19 01:00 16 127/84 Mechanical Ventilator 60 11/21/19 01:00 109 16 127/84 (98) 97 11/21/19 00:30 108 19 126/96 (106) 97 11/21/19 00:00 Mechanical Ventilator Mechanical Ventilator 11/21/19 00:00 60 11/21/19 00:00 20 111/48 Mechanical Ventilator 60 11/21/19 00:00 98.0 96 20 111/48 (69) 96 11/21/19 00:00 96 11/20/19 23:30 101 20 121/43 (69) 97 11/20/19 23:00 98 20 101/58 (72) 97 11/20/19 23:00 20 101/58 Mechanical Ventilator 60 11/20/19 23:00 104 20 40 11/20/19 22:30 101 20 114/81 (92) 100 11/20/19 22:00 95 20 105/51 (69) 100 11/20/19 22:00 20 105/51 Mechanical Ventilator 60 11/20/19 21:30 99 16 109/88 (95) 100 11/20/19 21:29 95 16 109/42 (64) 100 11/20/19 21:00 92 20 114/69 (84) 100 11/20/19 21:00 20 114/69 Mechanical Ventilator 60 11/20/19 20:50 93 104/57 11/20/19 20:30 98 16 107/68 (81) 100 11/20/19 20:00 Mechanical Ventilator Mechanical Ventilator 11/20/19 20:00 97.3 99 20 135/74 (94) 100 11/20/19 20:00 60 11/20/19 19:52 20 133/61 Mechanical Ventilator 60 11/20/19 19:49 104/57 11/20/19 19:30 101 20 127/64 (85) 100 11/20/19 19:23 102 11/20/19 19:00 89 19 86/67 (73) 100 11/20/19 19:00 19 86/67 Endotracheal Tube 60 11/20/19 18:52 100 20 40 11/20/19 18:30 98 20 93/61 (72) 100 11/20/19 18:00 102 20 103/60 (74) 100 11/20/19 18:00 22 103/60 Endotracheal Tube 60 11/20/19 17:30 86 20 100/58 (72) 100 11/20/19 17:08 96.9 92 20 111/69 (83) 99 11/20/19 17:00 20 111/69 Endotracheal Tube 60 11/20/19 16:30 102 20 125/84 (98) 100 11/20/19 16:02 101 20 115/72 (86) 100 11/20/19 16:00 92 11/20/19 16:00 20 115/72 Endotracheal Tube 60 11/20/19 16:00 Mechanical Ventilator Mechanical Ventilator 11/20/19 16:00 60 Intake and Output 11/20/19 11/21/19 19:00 07:00 Intake Total 800 ml 768 ml Output Total 290 ml 470 ml Balance 510 ml 298 ml Free Water 100 ml IV Total 220 ml 228 ml Tube Feeding 480 ml 480 ml Other 60 ml Output Urine Total 290 ml 470 ml Laboratory Tests 11/20/19 23:33: POC Whole Blood Glucose 158H 11/21/19 03:15: Sodium Level 140, Potassium Level 5.8H, Chloride Level 107, Carbon Dioxide Level 29, Anion Gap 4L, Blood Urea Nitrogen 32H, Creatinine 1.0, Estimat Glomerular Filtration Rate 58.0, Glucose Level 152H, Calcium Level 8.5 11/21/19 05:15: POC Whole Blood Glucose 224H 11/21/19 08:15: Potassium Level 5.0, White Blood Count 21.2H, Red Blood Count 4.25, Hemoglobin 11.3L, Hematocrit 37.9, Mean Corpuscular Volume 89, Mean Corpuscular Hemoglobin 26.6L, Mean Corpuscular Hemoglobin Concent 29.8L, Red Cell Distribution Width 17.6H, Platelet Count 221, Mean Platelet Volume 6.5, Neutrophils (%) (Auto) , Lymphocytes (%) (Auto) , Monocytes (%) (Auto) , Eosinophils (%) (Auto) , Basophils (%) (Auto) , Differential Total Cells Counted 100, Neutrophils % ( Manual) 97H, Lymphocytes % (Manual) 2L, Monocytes % (Manual) 1, Eosinophils % ( Manual) 0, Basophils % (Manual) 0, Band Neutrophils 0, Platelet Estimate Adequate, Platelet Morphology Normal, Hypochromasia 1+, Anisocytosis 1+ Height (Feet): 5 Height (Inches): 3.00 Weight (Pounds): 311 Objective Patient seen in ICU (+) ETT moving (++) edema Salazar Valiente MD Nov 21, 2019 15:35
[2019-11-21] MEDS: DOPamine 400mg/250ml 250 ML IV SCH (17:48)
[2019-11-21] MEDS: Norepinephrine 4mg/NS Premix 250 ML IV SCH (19:27)
--- NOTE | 2019-11-21 20:12 | Diagnostic Imaging Report ---
EXAM: XR Chest, 1 View CLINICAL HISTORY: LINE TECHNIQUE: Frontal view of the chest. COMPARISON: Chest radiograph dated 11/20/2019 FINDINGS: Lungs: Diffuse bilateral patchy airspace opacities are redemonstrated, not significantly changes compared to prior imaging. Pleural space: Unremarkable. No pneumothorax. Heart: Stable cardiomegaly. Mediastinum: Unremarkable. Bones/joints: Unremarkable. Tubes, lines and devices: Endotracheal tube is 3.9 cm above the caity. Enteric tube terminates outside the field of view. Multiple overlying external tubes and lines. IMPRESSION: 1. Stable bilateral diffuse patchy airspace opacities. 2. Endotracheal tube is appropriately positioned.
[2019-11-21] MEDS: Dyna-Hex 2% Top Sol 2oz TOPIC SCH (20:43)
[2019-11-21] MEDS: Solu-MEDROL 40mg Inj IVP SCH (21:14)
[2019-11-22] VITALS (73 sets, daily range): BP systolic 86–178; BP diastolic 46–107
[2019-11-22] MEDS: LORazepam Inj 2mg/ml 1ml IV PRN (03:46)
[2019-11-22] MEDS: fentaNYL 2500mcg/NS 250ml 250 ML IV SCH ×3 (06:07→23:15)
[2019-11-22 06:18] LABS: HEMOGLOBIN 9.4 G/DL (12.0-16.0); MEAN CORPUSCULAR VOLUME 90 FL (80-99); PLATELET COUNT 238 K/UL (150-450); RED BLOOD COUNT 3.55 M/UL (4.20-5.40); RED CELL DISTRIBUTION WIDTH 17.6 % (11.6-14.8); WHITE BLOOD COUNT 16.7 K/UL (4.8-10.8)
[2019-11-22] MEDS: NovoLOG Insulin Flexpen SUBQ SCH ×5 (06:30→23:16)
[2019-11-22 06:35] LABS: ALANINE AMINOTRANSFERASE 30 U/L (12-78); ALBUMIN 1.9 G/DL (3.4-5.0); ALBUMIN/GLOBULIN RATIO 0.5 (1.0-2.7); ALKALINE PHOSPHATASE 208 U/L (46-116); ANION GAP 4 mmol/L (5-15); ASPARTATE AMINO TRANSFERASE 33 U/L (15-37); BILIRUBIN,TOTAL 0.9 MG/DL (0.2-1.0); BLOOD UREA NITROGEN 40 mg/dL (7-18); CALCIUM 8.5 MG/DL (8.5-10.1); CARBON DIOXIDE 33 MMOL/L (21-32); CHLORIDE 106 MMOL/L (98-107); CREATININE 1.1 MG/DL (0.55-1.30); PHOSPHORUS 4.2 MG/DL (2.5-4.9); POTASSIUM 4.5 MMOL/L (3.5-5.1); SODIUM 143 MMOL/L (136-145)
--- NOTE | 2019-11-22 07:03 | General Progress Note ---
Assessment/Plan Problem List: (1) Hypoxia ICD Codes: R09.02 - Hypoxemia SNOMED: 156210356 (2) CHF (congestive heart failure) ICD Codes: I50.9 - Heart failure, unspecified SNOMED: 97496535 (3) Diabetes ICD Codes: E11.9 - Type 2 diabetes mellitus without complications SNOMED: 61842787 (4) Fluid overload ICD Codes: E87.70 - Fluid overload, unspecified SNOMED: 37826866 (5) 2019 novel coronavirus disease (COVID-19) ICD Codes: U07.1 - COVID-19 SNOMED: 980501845 Status: unchanged Assessment/Plan: no need for basal insulin continue Novolog sliding scale every 6 hours hypoglycemia protocol in order Subjective ROS Limited/Unobtainable: Yes Allergies: Coded Allergies: No Known Allergies (Unverified , 11/06/19) Subjective events noted glucose values are slightly on higher side but IVSM dosage reduced from 60 to 20 mg bid Item Value Date Time Bedside Blood Glucose 277 mg/dl H 11/22/19 0630 Bedside Blood Glucose 276 mg/dl H 11/22/19 0000 Bedside Blood Glucose 252 mg/dl H 11/21/19 1800 Bedside Blood Glucose 285 mg/dl H 11/21/19 1305 Bedside Blood Glucose 224 mg/dl H 11/21/19 0532 Bedside Blood Glucose 158 mg/dl H 11/20/19 2336 Objective Last 24 Hour Vital Signs Date Time Temp Pulse Resp B/P (MAP) Pulse Ox O2 Delivery O2 Flow Rate FiO2 11/22/19 06:30 101 20 11/22/19 06:07 20 109/57 Mechanical Ventilator 40.0 40 11/22/19 06:06 20 109/56 Mechanical Ventilator 40 11/22/19 06:00 20 109/57 Mechanical Ventilator 40 11/22/19 05:45 78 22 100/59 (73) 95 11/22/19 05:30 81 20 105/53 (70) 95 11/22/19 05:15 89 18 120/61 (80) 96 11/22/19 05:00 90 19 113/55 (74) 95 11/22/19 05:00 20 113/55 Mechanical Ventilator 40 11/22/19 04:45 93 18 109/67 (81) 95 11/22/19 04:30 91 19 101/59 (73) 95 11/22/19 04:15 88 18 110/57 (74) 95 11/22/19 04:00 18 122/62 Mechanical Ventilator 40 11/22/19 04:00 Mechanical Ventilator Mechanical Ventilator 11/22/19 04:00 98.3 94 19 122/62 (82) 96 11/22/19 04:00 40 11/22/19 03:45 99 13 174/98 (123) 97 11/22/19 03:35 24 174/98 Mechanical Ventilator 40 11/22/19 03:34 18 167/80 Mechanical Ventilator 40 11/22/19 03:34 98 18 163/78 (106) 96 11/22/19 03:30 104 16 163/98 (119) 96 11/22/19 03:15 94 12 149/80 (103) 95 11/22/19 03:07 124 11/22/19 03:02 89 9 141/70 (93) 97 11/22/19 03:00 18 141/70 Mechanical Ventilator 40 11/22/19 03:00 90 20 141/70 (93) 96 11/22/19 02:54 101 23 35 11/22/19 02:45 93 18 144/74 (97) 96 11/22/19 02:40 104 18 154/90 (111) 96 11/22/19 02:40 22 154/90 Mechanical Ventilator 40 11/22/19 02:35 98 20 162/90 (114) 98 11/22/19 02:30 100 16 165/95 (118) 97 11/22/19 02:26 95 18 150/73 (98) 96 11/22/19 02:20 95 20 164/81 (108) 98 11/22/19 02:15 95 24 164/81 (108) 98 11/22/19 02:11 24 167/90 Mechanical Ventilator 40 11/22/19 02:10 22 167/90 Mechanical Ventilator 40 11/22/19 02:10 86 22 168/87 (114) 98 11/22/19 02:05 86 18 169/84 (112) 98 11/22/19 02:00 99 22 178/86 (116) 98 11/22/19 02:00 24 178/86 Mechanical Ventilator 40 11/22/19 01:00 18 157/87 Mechanical Ventilator 40 11/22/19 01:00 89 18 173/86 (115) 99 11/22/19 00:00 Mechanical Ventilator Mechanical Ventilator 11/22/19 00:00 18 157/107 Mechanical Ventilator 40 11/22/19 00:00 97.3 99 22 157/107 (124) 99 11/21/19 23:30 103 24 132/87 (102) 97 11/21/19 23:18 92 11/21/19 23:11 87 20 35 11/21/19 23:00 91 20 137/77 (97) 99 11/21/19 23:00 20 137/77 Mechanical Ventilator 40 11/21/19 22:30 87 18 130/64 (86) 96 11/21/19 22:00 97 15 165/82 (109) 98 11/21/19 22:00 15 130/64 Mechanical Ventilator 40.0 11/21/19 21:30 108 15 167/81 (109) 98 11/21/19 21:16 20 125/66 Mechanical Ventilator 40 11/21/19 21:15 99 119/84 11/21/19 21:15 20 161/81 Mechanical Ventilator 40 11/21/19 21:00 84 17 98/54 (69) 99 11/21/19 21:00 17 126/78 Mechanical Ventilator 40 11/21/19 20:30 85 20 125/66 (85) 100 11/21/19 20:00 97.6 89 20 163/85 (111) 98 11/21/19 20:00 40 11/21/19 20:00 20 125/66 Mechanical Ventilator 40 11/21/19 20:00 Mechanical Ventilator Mechanical Ventilator 11/21/19 19:30 85 18 92/74 (80) 98 11/21/19 19:24 73 11/21/19 19:17 98 22 35 11/21/19 19:00 32 105/85 Mechanical Ventilator 40 11/21/19 19:00 91 15 105/85 (92) 99 11/21/19 18:29 99 20 144/82 (102) 100 11/21/19 18:00 106 20 124/88 (100) 100 11/21/19 18:00 15 144/82 Mechanical Ventilator 40 11/21/19 17:30 110 20 148/73 (98) 100 11/21/19 17:00 95 16 123/88 (100) 100 11/21/19 17:00 12 148/73 Mechanical Ventilator 40 11/21/19 16:30 95 15 137/75 (95) 100 11/21/19 16:12 40 11/21/19 16:00 97 11/21/19 16:00 12 136/49 Mechanical Ventilator 40 11/21/19 16:00 Mechanical Ventilator Mechanical Ventilator 11/21/19 16:00 96 18 140/87 (104) 100 11/21/19 15:30 106 18 136/49 (78) 100 11/21/19 15:21 99 21 35 11/21/19 15:00 16 125/74 40 11/21/19 15:00 102 13 125/74 (91) 100 11/21/19 14:30 104 12 151/82 (105) 98 11/21/19 14:00 16 151/82 Mechanical Ventilator 40 11/21/19 14:00 105 12 147/100 (116) 98 11/21/19 13:30 108 16 155/109 (124) 99 11/21/19 13:00 107 19 153/76 (101) 99 11/21/19 13:00 15 153/76 Mechanical Ventilator 40 11/21/19 12:30 102 18 139/81 (100) 99 11/21/19 12:00 98 11/21/19 12:00 Mechanical Ventilator Mechanical Ventilator 11/21/19 12:00 18 122/76 Mechanical Ventilator 40 11/21/19 12:00 98.9 107 12 137/90 (106) 98 11/21/19 12:00 104 21 123/99 (107) 99 11/21/19 12:00 40 11/21/19 11:35 95 18 136/75 (95) 97 11/21/19 11:09 104 21 40 11/21/19 11:00 18 123/78 Mechanical Ventilator 40 11/21/19 11:00 108 18 133/87 (102) 98 11/21/19 10:15 100 16 142/85 (104) 98 11/21/19 10:00 18 120/70 Mechanical Ventilator 40 11/21/19 10:00 101 19 165/88 (113) 99 11/21/19 09:53 19 113/64 Mechanical Ventilator 40 11/21/19 09:30 100 2 93/72 (79) 92 11/21/19 09:00 126 16 122/83 (96) 92 11/21/19 08:47 122 128/88 11/21/19 08:00 Mechanical Ventilator Mechanical Ventilator 11/21/19 08:00 100 11/21/19 08:00 99.0 122 9 128/88 (101) 92 11/21/19 08:00 40 11/21/19 07:45 118 20 40 Intake and Output 11/21/19 11/22/19 19:00 07:00 Intake Total 1067.868 ml 991.230 ml Output Total 430 ml 555 ml Balance 637.868 ml 436.230 ml Free Water 300 ml 230 ml IV Total 287.868 ml 321.230 ml Tube Feeding 480 ml 440 ml Output Urine Total 430 ml 555 ml Laboratory Tests 11/21/19 08:15: White Blood Count 21.2H, Red Blood Count 4.25, Hemoglobin 11.3L, Hematocrit 37.9 , Mean Corpuscular Volume 89, Mean Corpuscular Hemoglobin 26.6L, Mean Corpuscular Hemoglobin Concent 29.8L, Red Cell Distribution Width 17.6H, Platelet Count 221, Mean Platelet Volume 6.5, Neutrophils (%) (Auto) , Lymphocytes (%) (Auto) , Monocytes (%) (Auto) , Eosinophils (%) (Auto) , Basophils (%) (Auto) , Differential Total Cells Counted 100, Neutrophils % ( Manual) 97H, Lymphocytes % (Manual) 2L, Monocytes % (Manual) 1, Eosinophils % ( Manual) 0, Basophils % (Manual) 0, Band Neutrophils 0, Platelet Estimate Adequate, Platelet Morphology Normal, Hypochromasia 1+, Anisocytosis 1+, Potassium Level 5.0 11/21/19 23:27: POC Whole Blood Glucose [Pending] 11/22/19 05:41: White Blood Count 16.7H, Red Blood Count 3.55L, Hemoglobin 9.4L, Hematocrit 32.0L, Mean Corpuscular Volume 90, Mean Corpuscular Hemoglobin 26.5L, Mean Corpuscular Hemoglobin Concent 29.5L, Red Cell Distribution Width 17.6H, Platelet Count 238, Mean Platelet Volume 6.7, Neutrophils (%) (Auto) , Lymphocytes (%) (Auto) , Monocytes (%) (Auto) , Eosinophils (%) (Auto) , Basophils (%) (Auto) , Neutrophils % (Manual) [Pending], Lymphocytes % (Manual) [Pending], Platelet Estimate [Pending], Platelet Morphology [Pending], Potassium Level 4.5, Sodium Level 143, Chloride Level 106, Carbon Dioxide Level 33H, Anion Gap 4L, Blood Urea Nitrogen 40H, Creatinine 1.1, Estimat Glomerular Filtration Rate 51.9, Glucose Level 281#H, Calcium Level 8.5, Phosphorus Level 4.2, Magnesium Level 2.1, Total Bilirubin 0.9, Aspartate Amino Transf (AST/SGOT ) 33, Alanine Aminotransferase (ALT/SGPT) 30, Alkaline Phosphatase 208H, Total Protein 6.1L, Albumin 1.9L, Globulin 4.2, Albumin/Globulin Ratio 0.5L Height (Feet): 5 Height (Inches): 3.00 Weight (Pounds): 310 Objective Current Medications Medications (Trade) Dose Ordered Sig/Robyn Route PRN Reason Start Time Stop Time Status Last Admin Dose Admin Acetaminophen (Tylenol) 650 mg Q6H PRN NG Temp >100.5 11/12/19 00:15 12/12/19 00:14 11/16/19 09:02 Amiodarone HCl (Cordarone) 400 mg EVERY 12 HOURS ORAL 11/20/19 09:30 02/18/20 09:29 11/21/19 21:15 Chlorhexidine Gluconate (Miya-Hex 2%) 1 applic DAILY@1999 TOPIC 11/08/19 21:30 02/06/20 21:29 11/21/19 20:43 Clonidine HCl (Catapres Tab) 0.1 mg Q4H PRN NG For High Blood Pressure 11/13/19 17:00 02/09/20 10:59 Dextrose (Dextrose 50%) 25 ml Q30M PRN IV Hypoglycemia 11/08/19 12:30 02/05/20 02:59 11/18/19 23:54 Dextrose (Dextrose 50%) 50 ml Q30M PRN IV Hypoglycemia 11/08/19 12:30 02/05/20 02:59 Dopamine HCl/ Dextrose 250 ml @ 0 mls/hr Q24H IV 11/19/19 18:36 02/17/20 18:35 11/19/19 18:41 Famotidine (Pepcid I.v.) 20 mg Q12HR IVP 11/08/19 15:30 12/08/19 15:29 11/21/19 21:14 Fentanyl Citrate 250 ml @ 0 mls/hr Q24H IV 11/19/19 12:15 02/17/20 12:14 11/22/19 06:07 Folic Acid (Folate) 2 mg DAILY GT 11/15/19 09:00 12/15/19 08:59 11/21/19 08:46 Furosemide 100 mg/ Dextrose 100 ml @ 5 mls/hr Q20H IV 11/21/19 13:00 12/21/19 12:59 11/21/19 13:05 Insulin Aspart (NovoLOG) EVERY 6 HOURS SUBQ 11/15/19 12:00 02/11/20 20:59 11/22/19 06:30 Lorazepam (Ativan 2mg/ml 1ml) 1 mg Q4H PRN IV For Anxiety 11/21/19 11:00 11/28/19 10:59 11/22/19 03:46 Methylprednisolone Sodium Succinate (Solu-MEDROL) 20 mg EVERY 12 HOURS IVP 11/21/19 21:00 02/18/20 20:59 11/21/19 21:14 Metoprolol Tartrate (Lopressor) 25 mg Q12HR ORAL 11/20/19 09:30 02/18/20 09:29 11/21/19 21:15 Norepinephrine Bitartrate 250 ml @ 0 mls/hr Q24H IV 11/19/19 19:49 02/17/20 19:48 Alphonse Ojeda MD Nov 22, 2019 07:03
[2019-11-22] MEDS: Amiodarone 200mg tab ORAL SCH ×2 (08:32→20:32)
[2019-11-22] MEDS: Solu-MEDROL 40mg Inj IVP SCH ×2 (08:32→20:32)
--- NOTE | 2019-11-22 09:06 | Pulmonology Progress Note ---
Subjective ROS Limited/Unobtainable: Yes Interval Events: Re-intubated on 11/19/19; Constitutional: Denies: fever HEENT: Repors: no symptoms Respiratory: Reports: dry cough, shortness of breath Cardiovascular: Reports: no symptoms Gastrointestinal/Abdominal: Reports: no symptoms Allergies: Coded Allergies: No Known Allergies (Unverified , 11/06/19) All Systems: reviewed and negative except above Objective Last 24 Hour Vital Signs Date Time Temp Pulse Resp B/P (MAP) Pulse Ox O2 Delivery O2 Flow Rate FiO2 11/22/19 08:31 90 116/61 11/22/19 08:00 40 11/22/19 08:00 86 11/22/19 07:12 98 20 35 11/22/19 07:00 20 127/87 Mechanical Ventilator 40 11/22/19 07:00 92 20 133/61 (85) 95 11/22/19 06:30 101 20 11/22/19 06:07 20 109/57 Mechanical Ventilator 40.0 40 11/22/19 06:06 20 109/56 Mechanical Ventilator 40 11/22/19 06:00 20 109/57 Mechanical Ventilator 40 11/22/19 06:00 78 18 114/46 (68) 94 11/22/19 05:45 78 22 100/59 (73) 95 11/22/19 05:30 81 20 105/53 (70) 95 11/22/19 05:15 89 18 120/61 (80) 96 11/22/19 05:00 90 19 113/55 (74) 95 11/22/19 05:00 20 113/55 Mechanical Ventilator 40 11/22/19 04:45 93 18 109/67 (81) 95 11/22/19 04:30 91 19 101/59 (73) 95 11/22/19 04:15 88 18 110/57 (74) 95 11/22/19 04:00 18 122/62 Mechanical Ventilator 40 11/22/19 04:00 Mechanical Ventilator Mechanical Ventilator 11/22/19 04:00 98.3 94 19 122/62 (82) 96 11/22/19 04:00 40 11/22/19 03:45 99 13 174/98 (123) 97 11/22/19 03:35 24 174/98 Mechanical Ventilator 40 11/22/19 03:34 18 167/80 Mechanical Ventilator 40 11/22/19 03:34 98 18 163/78 (106) 96 11/22/19 03:30 104 16 163/98 (119) 96 11/22/19 03:15 94 12 149/80 (103) 95 11/22/19 03:07 124 11/22/19 03:02 89 9 141/70 (93) 97 11/22/19 03:00 18 141/70 Mechanical Ventilator 40 11/22/19 03:00 90 20 141/70 (93) 96 11/22/19 02:54 101 23 35 11/22/19 02:45 93 18 144/74 (97) 96 11/22/19 02:40 104 18 154/90 (111) 96 11/22/19 02:40 22 154/90 Mechanical Ventilator 40 11/22/19 02:35 98 20 162/90 (114) 98 11/22/19 02:30 100 16 165/95 (118) 97 11/22/19 02:26 95 18 150/73 (98) 96 11/22/19 02:20 95 20 164/81 (108) 98 11/22/19 02:15 95 24 164/81 (108) 98 11/22/19 02:11 24 167/90 Mechanical Ventilator 40 11/22/19 02:10 22 167/90 Mechanical Ventilator 40 11/22/19 02:10 86 22 168/87 (114) 98 11/22/19 02:05 86 18 169/84 (112) 98 11/22/19 02:00 99 22 178/86 (116) 98 11/22/19 02:00 24 178/86 Mechanical Ventilator 40 11/22/19 01:00 18 157/87 Mechanical Ventilator 40 11/22/19 01:00 89 18 173/86 (115) 99 11/22/19 00:00 Mechanical Ventilator Mechanical Ventilator 11/22/19 00:00 18 157/107 Mechanical Ventilator 40 11/22/19 00:00 97.3 99 22 157/107 (124) 99 11/21/19 23:30 103 24 132/87 (102) 97 11/21/19 23:18 92 11/21/19 23:11 87 20 35 11/21/19 23:00 91 20 137/77 (97) 99 11/21/19 23:00 20 137/77 Mechanical Ventilator 40 11/21/19 22:30 87 18 130/64 (86) 96 11/21/19 22:00 97 15 165/82 (109) 98 11/21/19 22:00 15 130/64 Mechanical Ventilator 40.0 11/21/19 21:30 108 15 167/81 (109) 98 11/21/19 21:16 20 125/66 Mechanical Ventilator 40 11/21/19 21:15 99 119/84 11/21/19 21:15 20 161/81 Mechanical Ventilator 40 11/21/19 21:00 84 17 98/54 (69) 99 11/21/19 21:00 17 126/78 Mechanical Ventilator 40 11/21/19 20:30 85 20 125/66 (85) 100 11/21/19 20:00 97.6 89 20 163/85 (111) 98 11/21/19 20:00 40 11/21/19 20:00 20 125/66 Mechanical Ventilator 40 11/21/19 20:00 Mechanical Ventilator Mechanical Ventilator 11/21/19 19:30 85 18 92/74 (80) 98 11/21/19 19:24 73 11/21/19 19:17 98 22 35 11/21/19 19:00 32 105/85 Mechanical Ventilator 40 11/21/19 19:00 91 15 105/85 (92) 99 11/21/19 18:29 99 20 144/82 (102) 100 11/21/19 18:00 106 20 124/88 (100) 100 11/21/19 18:00 15 144/82 Mechanical Ventilator 40 11/21/19 17:30 110 20 148/73 (98) 100 11/21/19 17:00 95 16 123/88 (100) 100 11/21/19 17:00 12 148/73 Mechanical Ventilator 40 11/21/19 16:30 95 15 137/75 (95) 100 11/21/19 16:12 40 11/21/19 16:00 97 11/21/19 16:00 12 136/49 Mechanical Ventilator 40 11/21/19 16:00 Mechanical Ventilator Mechanical Ventilator 11/21/19 16:00 96 18 140/87 (104) 100 11/21/19 15:30 106 18 136/49 (78) 100 11/21/19 15:21 99 21 35 11/21/19 15:00 16 125/74 40 11/21/19 15:00 102 13 125/74 (91) 100 11/21/19 14:30 104 12 151/82 (105) 98 11/21/19 14:00 16 151/82 Mechanical Ventilator 40 11/21/19 14:00 105 12 147/100 (116) 98 11/21/19 13:30 108 16 155/109 (124) 99 11/21/19 13:00 107 19 153/76 (101) 99 11/21/19 13:00 15 153/76 Mechanical Ventilator 40 11/21/19 12:30 102 18 139/81 (100) 99 11/21/19 12:00 98 11/21/19 12:00 Mechanical Ventilator Mechanical Ventilator 11/21/19 12:00 18 122/76 Mechanical Ventilator 40 11/21/19 12:00 98.9 107 12 137/90 (106) 98 11/21/19 12:00 104 21 123/99 (107) 99 11/21/19 12:00 40 11/21/19 11:35 95 18 136/75 (95) 97 11/21/19 11:09 104 21 40 11/21/19 11:00 18 123/78 Mechanical Ventilator 40 11/21/19 11:00 108 18 133/87 (102) 98 11/21/19 10:15 100 16 142/85 (104) 98 11/21/19 10:00 18 120/70 Mechanical Ventilator 40 11/21/19 10:00 101 19 165/88 (113) 99 11/21/19 09:53 19 113/64 Mechanical Ventilator 40 11/21/19 09:30 100 2 93/72 (79) 92 Intake and Output 11/21/19 11/22/19 19:00 07:00 Intake Total 1067.868 ml 1064.497 ml Output Total 430 ml 620 ml Balance 637.868 ml 444.497 ml Free Water 300 ml 230 ml IV Total 287.868 ml 354.497 ml Tube Feeding 480 ml 480 ml Output Urine Total 430 ml 620 ml General Appearance: no acute distress HEENT: normocephalic Respiratory: decreased breath sounds Cardiovascular: normal peripheral pulses Abdomen: normal bowel sounds Extremities: no cyanosis Laboratory Tests 11/21/19 23:27: POC Whole Blood Glucose [Pending] 11/22/19 05:41: White Blood Count 16.7H, Red Blood Count 3.55L, Hemoglobin 9.4L, Hematocrit 32.0L, Mean Corpuscular Volume 90, Mean Corpuscular Hemoglobin 26.5L, Mean Corpuscular Hemoglobin Concent 29.5L, Red Cell Distribution Width 17.6H, Platelet Count 238, Mean Platelet Volume 6.7, Neutrophils (%) (Auto) , Lymphocytes (%) (Auto) , Monocytes (%) (Auto) , Eosinophils (%) (Auto) , Basophils (%) (Auto) , Neutrophils % (Manual) [Pending], Lymphocytes % (Manual) [Pending], Platelet Estimate [Pending], Platelet Morphology [Pending], Sodium Level 143, Potassium Level 4.5, Chloride Level 106, Carbon Dioxide Level 33H, Anion Gap 4L, Blood Urea Nitrogen 40H, Creatinine 1.1, Estimat Glomerular Filtration Rate 51.9, Glucose Level 281#H, Calcium Level 8.5, Phosphorus Level 4.2, Magnesium Level 2.1, Total Bilirubin 0.9, Aspartate Amino Transf (AST/SGOT ) 33, Alanine Aminotransferase (ALT/SGPT) 30, Alkaline Phosphatase 208H, Total Protein 6.1L, Albumin 1.9L, Globulin 4.2, Albumin/Globulin Ratio 0.5L 11/22/19 07:14: Arterial Blood pH 7.407, Arterial Blood Partial Pressure CO2 46.5H, Arterial Blood Partial Pressure O2 69.8L, Arterial Blood HCO3 28.6H, Arterial Blood Oxygen Saturation 92.8L, Arterial Blood Base Excess 3.4H, Steve Test Positive Current Medications Medications (Trade) Dose Ordered Sig/Robyn Route PRN Reason Start Time Stop Time Status Last Admin Dose Admin Acetaminophen (Tylenol) 650 mg Q6H PRN NG Temp >100.5 11/12/19 00:15 12/12/19 00:14 11/16/19 09:02 Amiodarone HCl (Cordarone) 400 mg EVERY 12 HOURS ORAL 11/20/19 09:30 02/18/20 09:29 11/22/19 08:32 Chlorhexidine Gluconate (Miya-Hex 2%) 1 applic DAILY@1999 TOPIC 11/08/19 21:30 02/06/20 21:29 11/21/19 20:43 Clonidine HCl (Catapres Tab) 0.1 mg Q4H PRN NG For High Blood Pressure 11/13/19 17:00 02/09/20 10:59 Dextrose (Dextrose 50%) 25 ml Q30M PRN IV Hypoglycemia 11/08/19 12:30 02/05/20 02:59 11/18/19 23:54 Dextrose (Dextrose 50%) 50 ml Q30M PRN IV Hypoglycemia 11/08/19 12:30 02/05/20 02:59 Dopamine HCl/ Dextrose 250 ml @ 0 mls/hr Q24H IV 11/19/19 18:36 02/17/20 18:35 11/19/19 18:41 Famotidine (Pepcid I.v.) 20 mg Q12HR IVP 11/08/19 15:30 12/08/19 15:29 11/22/19 08:32 Fentanyl Citrate 250 ml @ 0 mls/hr Q24H IV 11/19/19 12:15 02/17/20 12:14 11/22/19 06:07 Folic Acid (Folate) 2 mg DAILY GT 11/15/19 09:00 12/15/19 08:59 11/22/19 08:32 Furosemide 100 mg/ Dextrose 100 ml @ 5 mls/hr Q20H IV 11/21/19 13:00 12/21/19 12:59 11/22/19 08:31 Insulin Aspart (NovoLOG) EVERY 6 HOURS SUBQ 11/15/19 12:00 02/11/20 20:59 11/22/19 06:30 Lorazepam (Ativan 2mg/ml 1ml) 1 mg Q4H PRN IV For Anxiety 11/21/19 11:00 11/28/19 10:59 11/22/19 03:46 Methylprednisolone Sodium Succinate (Solu-MEDROL) 20 mg EVERY 12 HOURS IVP 11/21/19 21:00 02/18/20 20:59 11/22/19 08:32 Metoprolol Tartrate (Lopressor) 25 mg Q12HR ORAL 11/20/19 09:30 02/18/20 09:29 11/22/19 08:31 Norepinephrine Bitartrate 250 ml @ 0 mls/hr Q24H IV 11/19/19 19:49 02/17/20 19:48 Assessment/Plan Assessment/Plan IMPRESSION: 1. COVID-19 pneumonia. 2. Diabetes mellitus and hypertension. 3. Lactic acidemia. 4. Epistaxis 5. Respiratory failure; failed extubation 6. Anasarca DISCUSSION: Careful and close monitoring. Continue medications May need tracheostomy On fentanyl pressors prn Will request new PICC Will start Lasix for anasarca I will follow carefully. Lakeisha Zavaleta Omar Syed MD Nov 22, 2019 09:06
[2019-11-22] MEDS ORDERED: Tubing IV Secondary IV ONE (09:53)
--- NOTE | 2019-11-22 10:06 | Diagnostic Imaging Report ---
EXAM: XR Chest, 1 View CLINICAL HISTORY: ABN CHST TECHNIQUE: Frontal view of the chest. COMPARISON: Chest x-ray dated 11/21/19 FINDINGS: Lungs: Extensive bilateral patchy pulmonary opacities and interstitial markings, not significant changed given difference in exam technique. Pleural space: Unremarkable. The costophrenic angles are sharp. No visible pneumothorax. Heart: Cardiomegaly, unchanged. Mediastinum: Unremarkable. Bones/joints: Unremarkable. Tubes, lines and devices: Stable positioning of endotracheal tube. Telemetry leads overlie the thorax. IMPRESSION: 1. Extensive bilateral patchy pulmonary opacities and interstitial markings, not significant changed given difference in exam technique. 2. Cardiomegaly, unchanged.
--- NOTE | 2019-11-22 10:48 | Cardiac Electrophysiology PN ---
Assessment/Plan Assessment/Plan 1. Paroxysmal atrial fibrillation. On metoprolol 25 q 12 and Amiodarone 400 q 12 hr. Off Eliquis in view of hematuria and black stool EF 55% on echo. 2. S/P Shock. Off pressors. Tolerating Lopressor 25 bid 3. COVID positive pneumonia. S/P Remdesevir and dexamethasone. 4. Diabetes, on insulin. 5. Respiratory failure on the Vent. 6. S/P Massive nasal bleed. 7. 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 On Lasix drip for severe LE edema. In atrial fib rate controlled on Lopressor 25 bid. Objective Last 24 Hour Vital Signs Date Time Temp Pulse Resp B/P (MAP) Pulse Ox O2 Delivery O2 Flow Rate FiO2 11/22/19 10:37 72 20 35 11/22/19 09:45 75 0 92/55 (67) 95 11/22/19 09:30 75 20 104/58 (73) 95 11/22/19 09:15 87 20 110/56 (74) 95 11/22/19 09:00 90 20 124/66 (85) 95 11/22/19 09:00 20 124/66 Mechanical Ventilator 40 11/22/19 08:45 90 20 128/79 (95) 95 11/22/19 08:31 90 116/61 11/22/19 08:30 88 20 121/68 (85) 95 11/22/19 08:15 90 20 116/61 (79) 95 11/22/19 08:00 40 11/22/19 08:00 86 11/22/19 08:00 20 119/60 Mechanical Ventilator 40 11/22/19 08:00 98.6 89 20 119/60 (79) 95 11/22/19 08:00 Mechanical Ventilator Mechanical Ventilator 11/22/19 07:45 89 20 112/69 (83) 97 11/22/19 07:30 91 20 126/60 (82) 96 11/22/19 07:15 91 20 137/87 (104) 96 11/22/19 07:12 98 20 35 11/22/19 07:00 20 127/87 Mechanical Ventilator 40 11/22/19 07:00 92 20 133/61 (85) 95 11/22/19 06:30 101 20 11/22/19 06:07 20 109/57 Mechanical Ventilator 40.0 40 11/22/19 06:06 20 109/56 Mechanical Ventilator 40 11/22/19 06:00 20 109/57 Mechanical Ventilator 40 11/22/19 06:00 78 18 114/46 (68) 94 11/22/19 05:45 78 22 100/59 (73) 95 11/22/19 05:30 81 20 105/53 (70) 95 11/22/19 05:15 89 18 120/61 (80) 96 11/22/19 05:00 90 19 113/55 (74) 95 11/22/19 05:00 20 113/55 Mechanical Ventilator 40 11/22/19 04:45 93 18 109/67 (81) 95 11/22/19 04:30 91 19 101/59 (73) 95 11/22/19 04:15 88 18 110/57 (74) 95 11/22/19 04:00 18 122/62 Mechanical Ventilator 40 11/22/19 04:00 Mechanical Ventilator Mechanical Ventilator 11/22/19 04:00 98.3 94 19 122/62 (82) 96 11/22/19 04:00 40 11/22/19 03:45 99 13 174/98 (123) 97 11/22/19 03:35 24 174/98 Mechanical Ventilator 40 11/22/19 03:34 18 167/80 Mechanical Ventilator 40 11/22/19 03:34 98 18 163/78 (106) 96 11/22/19 03:30 104 16 163/98 (119) 96 11/22/19 03:15 94 12 149/80 (103) 95 11/22/19 03:07 124 11/22/19 03:02 89 9 141/70 (93) 97 11/22/19 03:00 18 141/70 Mechanical Ventilator 40 11/22/19 03:00 90 20 141/70 (93) 96 11/22/19 02:54 101 23 35 11/22/19 02:45 93 18 144/74 (97) 96 11/22/19 02:40 104 18 154/90 (111) 96 11/22/19 02:40 22 154/90 Mechanical Ventilator 40 11/22/19 02:35 98 20 162/90 (114) 98 11/22/19 02:30 100 16 165/95 (118) 97 11/22/19 02:26 95 18 150/73 (98) 96 11/22/19 02:20 95 20 164/81 (108) 98 11/22/19 02:15 95 24 164/81 (108) 98 11/22/19 02:11 24 167/90 Mechanical Ventilator 40 11/22/19 02:10 22 167/90 Mechanical Ventilator 40 11/22/19 02:10 86 22 168/87 (114) 98 11/22/19 02:05 86 18 169/84 (112) 98 11/22/19 02:00 99 22 178/86 (116) 98 11/22/19 02:00 24 178/86 Mechanical Ventilator 40 11/22/19 01:00 18 157/87 Mechanical Ventilator 40 11/22/19 01:00 89 18 173/86 (115) 99 11/22/19 00:00 Mechanical Ventilator Mechanical Ventilator 11/22/19 00:00 18 157/107 Mechanical Ventilator 40 11/22/19 00:00 97.3 99 22 157/107 (124) 99 11/21/19 23:30 103 24 132/87 (102) 97 11/21/19 23:18 92 11/21/19 23:11 87 20 35 11/21/19 23:00 91 20 137/77 (97) 99 11/21/19 23:00 20 137/77 Mechanical Ventilator 40 11/21/19 22:30 87 18 130/64 (86) 96 11/21/19 22:00 97 15 165/82 (109) 98 11/21/19 22:00 15 130/64 Mechanical Ventilator 40.0 11/21/19 21:30 108 15 167/81 (109) 98 11/21/19 21:16 20 125/66 Mechanical Ventilator 40 11/21/19 21:15 99 119/84 11/21/19 21:15 20 161/81 Mechanical Ventilator 40 11/21/19 21:00 84 17 98/54 (69) 99 11/21/19 21:00 17 126/78 Mechanical Ventilator 40 11/21/19 20:30 85 20 125/66 (85) 100 11/21/19 20:00 97.6 89 20 163/85 (111) 98 11/21/19 20:00 40 11/21/19 20:00 20 125/66 Mechanical Ventilator 40 11/21/19 20:00 Mechanical Ventilator Mechanical Ventilator 11/21/19 19:30 85 18 92/74 (80) 98 11/21/19 19:24 73 11/21/19 19:17 98 22 35 11/21/19 19:00 32 105/85 Mechanical Ventilator 40 11/21/19 19:00 91 15 105/85 (92) 99 11/21/19 18:29 99 20 144/82 (102) 100 11/21/19 18:00 106 20 124/88 (100) 100 11/21/19 18:00 15 144/82 Mechanical Ventilator 40 11/21/19 17:30 110 20 148/73 (98) 100 11/21/19 17:00 95 16 123/88 (100) 100 11/21/19 17:00 12 148/73 Mechanical Ventilator 40 11/21/19 16:30 95 15 137/75 (95) 100 11/21/19 16:12 40 11/21/19 16:00 97 11/21/19 16:00 12 136/49 Mechanical Ventilator 40 11/21/19 16:00 Mechanical Ventilator Mechanical Ventilator 11/21/19 16:00 96 18 140/87 (104) 100 11/21/19 15:30 106 18 136/49 (78) 100 11/21/19 15:21 99 21 35 11/21/19 15:00 16 125/74 40 11/21/19 15:00 102 13 125/74 (91) 100 11/21/19 14:30 104 12 151/82 (105) 98 11/21/19 14:00 16 151/82 Mechanical Ventilator 40 11/21/19 14:00 105 12 147/100 (116) 98 11/21/19 13:30 108 16 155/109 (124) 99 11/21/19 13:00 107 19 153/76 (101) 99 11/21/19 13:00 15 153/76 Mechanical Ventilator 40 11/21/19 12:30 102 18 139/81 (100) 99 11/21/19 12:00 98 11/21/19 12:00 Mechanical Ventilator Mechanical Ventilator 11/21/19 12:00 18 122/76 Mechanical Ventilator 40 11/21/19 12:00 98.9 107 12 137/90 (106) 98 11/21/19 12:00 104 21 123/99 (107) 99 11/21/19 12:00 40 11/21/19 11:35 95 18 136/75 (95) 97 11/21/19 11:09 104 21 40 11/21/19 11:00 18 123/78 Mechanical Ventilator 40 11/21/19 11:00 108 18 133/87 (102) 98 Intake and Output 11/21/19 11/22/19 19:00 07:00 Intake Total 1067.868 ml 1064.497 ml Output Total 430 ml 620 ml Balance 637.868 ml 444.497 ml Free Water 300 ml 230 ml IV Total 287.868 ml 354.497 ml Tube Feeding 480 ml 480 ml Output Urine Total 430 ml 620 ml Laboratory Tests Test 11/21/19 23:27 11/22/19 05:41 11/22/19 07:14 POC Whole Blood Glucose Pending White Blood Count 16.7 K/UL (4.8-10.8) H Red Blood Count 3.55 M/UL (4.20-5.40) L Hemoglobin 9.4 G/DL (12.0-16.0) L Hematocrit 32.0 % (37.0-47.0) L Mean Corpuscular Volume 90 FL (80-99) Mean Corpuscular Hemoglobin 26.5 PG (27.0-31.0) L Mean Corpuscular Hemoglobin Concent 29.5 G/DL (32.0-36.0) L Red Cell Distribution Width 17.6 % (11.6-14.8) H Platelet Count 238 K/UL (150-450) Mean Platelet Volume 6.7 FL (6.5-10.1) Neutrophils (%) (Auto) % (45.0-75.0) Lymphocytes (%) (Auto) % (20.0-45.0) Monocytes (%) (Auto) % (1.0-10.0) Eosinophils (%) (Auto) % (0.0-3.0) Basophils (%) (Auto) % (0.0-2.0) Differential Total Cells Counted 100 Neutrophils % (Manual) 97 % (45-75) H Lymphocytes % (Manual) 1 % (20-45) L Monocytes % (Manual) 2 % (1-10) Eosinophils % (Manual) 0 % (0-3) Basophils % (Manual) 0 % (0-2) Band Neutrophils 0 % (0-8) Platelet Estimate Adequate Platelet Morphology Normal Hypochromasia 2+ Anisocytosis 1+ Sodium Level 143 MMOL/L (136-145) Potassium Level 4.5 MMOL/L (3.5-5.1) Chloride Level 106 MMOL/L (98-107) Carbon Dioxide Level 33 MMOL/L (21-32) H Anion Gap 4 mmol/L (5-15) L Blood Urea Nitrogen 40 mg/dL (7-18) H Creatinine 1.1 MG/DL (0.55-1.30) Estimat Glomerular Filtration Rate 51.9 mL/min (>60) Glucose Level 281 MG/DL (74-106) #H Calcium Level 8.5 MG/DL (8.5-10.1) Phosphorus Level 4.2 MG/DL (2.5-4.9) Magnesium Level 2.1 MG/DL (1.8-2.4) Total Bilirubin 0.9 MG/DL (0.2-1.0) Aspartate Amino Transf (AST/SGOT) 33 U/L (15-37) Alanine Aminotransferase (ALT/SGPT) 30 U/L (12-78) Alkaline Phosphatase 208 U/L (46-116) H Total Protein 6.1 G/DL (6.4-8.2) L Albumin 1.9 G/DL (3.4-5.0) L Globulin 4.2 g/dL Albumin/Globulin Ratio 0.5 (1.0-2.7) L Arterial Blood pH 7.407 (7.350-7.450) Arterial Blood Partial Pressure CO2 46.5 mmHg (35.0-45.0) H Arterial Blood Partial Pressure O2 69.8 mmHg (75.0-100.0) L Arterial Blood HCO3 28.6 mmol/L (22.0-26.0) H Arterial Blood Oxygen Saturation 92.8 % (95-100) L Arterial Blood Base Excess 3.4 (-2-2) H Steve Test Positive Objective HEAD AND NECK: No JVD. OG tube Orally intubated LUNGS: Coarse rhonchi. CARDIOVASCULAR: Irregularly irregular. S1 and S2 with no gallop or murmur. ABDOMEN: Soft. EXTREMITIES: 2 plus pitting edema. Gabe Snell MD Nov 22, 2019 10:48
[2019-11-22] MEDS ORDERED: NS 275ml ONE ×2 (12:19→12:50)
[2019-11-22] MEDS ORDERED: Sterile Water Irrig 1000ml IRRIG ONE ×2 (12:19→12:50)
--- NOTE | 2019-11-22 12:37 | Hematology/Onc Progress Note ---
Assessment/Plan Assessment/Plan # Anemia of chronic disease due to underlying chronic medical issues, multifactorial v Gi bleed in this case likely related covid19+++++++++ --> Anemia workup has been ordered, rule out gi bleed --> No evidence of hemolysis is noted, peripheral smear has been reviewed. --> Hgb goal >7. Transfuse prn. --> Epogen or iron at this time is not particularly indicated --> Medications have been reviewed --> low threshold for gi evaluation in case has occult + --> hgb 10-->9.8-->9.2-->9.7-->10.7->10->11->10.2->10.6->9.4 # Leukocytosis/elevated white blood cell count, unspecified likely related to covid19 --> have reviewed peripheral smear and bandemia/neutrophilia noted --> continue antibiotics if they have been started by ID team zosyn --> on remdesivir, dexamathasone --> monitor for resolution --> wbc 12->11-->11-->13->16-->21-->17 # COVID 19 pneumonia --> on vent --> respiratory failure --> s/p vent reintubation 11/08 # Diabetes mellitus --> iss and bs goal <140 # Hypertension --> sbp goal <150 # Dvt ppx scds Appreciate consultation and dw RN Subjective Constitutional: Denies: no symptoms, chills, fever, malaise, weakness, other HEENT: Denies: no symptoms, eye pain, blurred vision, tearing, double vision, ear pain, ear discharge, nose pain, nose congestion, throat pain, throat swelling, mouth pain, mouth swelling, other Cardiovascular: Denies: no symptoms, chest pain, edema, irregular heart rate, lightheadedness, palpitations, syncope, other Respiratory: Denies: no symptoms, cough, shortness of breath, SOB with excertion, SOB at rest, sputum, wheezing, other Gastrointestinal/Abdominal: Denies: no symptoms, abdomen distended, abdominal pain, black stools, tarry stools, blood in stool, constipated, diarrhea, difficulty swallowing, nausea, poor appetite, poor fluid intake, rectal bleeding , vomiting, other Allergies: Coded Allergies: No Known Allergies (Unverified , 11/06/19) Subjective 11/09 weaning prn, meds reviewed, labs noted, hgb 9.2 11/10 on vent, no bleeding, hgb remains low, jimena Rn Jose R in am 11/11 on vent, fluids, ogf tube as well, labs pending in am 11/12 remains altered, no bleeding, labs reviewed, cbc noted 11/13 attempted weaning, but did not do well, no bleeding, hgb 10 11/14 intubated, weaning, on vent, with og, labs noted, abx 11/15 labs noted, no bleedign, weaning protocol, no night sweats, elev wbc, with fevers 11/16 no bleeding, jimena Broussard rn in the am, on vent, weaning but failed 11/17 meds reviewed, no night sweats, jimena rn, no bleeding 11/18 extubated, on nc at this time, no bleeding, meds reviewed 11/19 labs noted, no bleeding, on vent again, weaning 11/21 labs reviewed, hgb 9.4, no hemolysis, very difficult to obtain repeat lab draw in am Objective Objective Current Medications Medications (Trade) Dose Ordered Sig/Robyn Route PRN Reason Start Time Stop Time Status Last Admin Dose Admin Acetaminophen (Tylenol) 650 mg Q6H PRN NG Temp >100.5 11/12/19 00:15 12/12/19 00:14 11/16/19 09:02 Amiodarone HCl (Cordarone) 400 mg EVERY 12 HOURS ORAL 11/20/19 09:30 02/18/20 09:29 11/22/19 08:32 Chlorhexidine Gluconate (Miya-Hex 2%) 1 applic DAILY@1999 TOPIC 11/08/19 21:30 02/06/20 21:29 11/21/19 20:43 Clonidine HCl (Catapres Tab) 0.1 mg Q4H PRN NG For High Blood Pressure 11/13/19 17:00 02/09/20 10:59 Dextrose (Dextrose 50%) 25 ml Q30M PRN IV Hypoglycemia 11/08/19 12:30 02/05/20 02:59 11/18/19 23:54 Dextrose (Dextrose 50%) 50 ml Q30M PRN IV Hypoglycemia 11/08/19 12:30 02/05/20 02:59 Dopamine HCl/ Dextrose 250 ml @ 0 mls/hr Q24H IV 11/19/19 18:36 02/17/20 18:35 11/19/19 18:41 Famotidine (Pepcid I.v.) 20 mg Q12HR IVP 11/08/19 15:30 12/08/19 15:29 11/22/19 08:32 Fentanyl Citrate 250 ml @ 0 mls/hr Q24H IV 11/19/19 12:15 02/17/20 12:14 11/22/19 06:07 Folic Acid (Folate) 2 mg DAILY GT 11/15/19 09:00 12/15/19 08:59 11/22/19 08:32 Furosemide 100 mg/ Dextrose 100 ml @ 5 mls/hr Q20H IV 11/21/19 13:00 12/21/19 12:59 11/22/19 08:31 Insulin Aspart (NovoLOG) EVERY 6 HOURS SUBQ 11/15/19 12:00 02/11/20 20:59 11/22/19 12:27 Lorazepam (Ativan 2mg/ml 1ml) 1 mg Q4H PRN IV For Anxiety 11/21/19 11:00 11/28/19 10:59 11/22/19 03:46 Methylprednisolone Sodium Succinate (Solu-MEDROL) 20 mg EVERY 12 HOURS IVP 11/21/19 21:00 02/18/20 20:59 11/22/19 08:32 Metoprolol Tartrate (Lopressor) 25 mg Q12HR ORAL 11/20/19 09:30 02/18/20 09:29 11/22/19 08:31 Norepinephrine Bitartrate 250 ml @ 0 mls/hr Q24H IV 11/19/19 19:49 02/17/20 19:48 Last 24 Hour Vital Signs Date Time Temp Pulse Resp B/P (MAP) Pulse Ox O2 Delivery O2 Flow Rate FiO2 11/22/19 12:00 40 11/22/19 12:00 Mechanical Ventilator Mechanical Ventilator 11/22/19 12:00 75 11/22/19 12:00 99.2 73 20 98/55 (69) 94 11/22/19 11:45 76 20 104/53 (70) 95 11/22/19 11:30 75 20 103/54 (70) 95 11/22/19 11:15 80 20 110/54 (72) 96 11/22/19 11:00 20 124/55 Mechanical Ventilator 40 11/22/19 11:00 82 20 124/55 (78) 95 11/22/19 10:45 84 20 128/63 (84) 95 11/22/19 10:37 72 20 35 11/22/19 10:32 76 20 108/75 (86) 93 11/22/19 10:30 74 20 87/72 (77) 95 11/22/19 10:15 77 20 102/53 (69) 95 11/22/19 10:00 76 20 93/50 (64) 95 11/22/19 10:00 20 93/50 Mechanical Ventilator 40 11/22/19 09:45 75 20 92/55 (67) 95 11/22/19 09:30 75 20 104/58 (73) 95 11/22/19 09:15 87 20 110/56 (74) 95 11/22/19 09:00 90 20 124/66 (85) 95 11/22/19 09:00 20 124/66 Mechanical Ventilator 40 11/22/19 08:45 90 20 128/79 (95) 95 11/22/19 08:31 90 116/61 11/22/19 08:30 88 20 121/68 (85) 95 11/22/19 08:15 90 20 116/61 (79) 95 11/22/19 08:00 40 11/22/19 08:00 86 11/22/19 08:00 20 119/60 Mechanical Ventilator 40 11/22/19 08:00 98.6 89 20 119/60 (79) 95 11/22/19 08:00 Mechanical Ventilator Mechanical Ventilator 11/22/19 07:45 89 20 112/69 (83) 97 11/22/19 07:30 91 20 126/60 (82) 96 11/22/19 07:15 91 20 137/87 (104) 96 11/22/19 07:12 98 20 35 11/22/19 07:00 20 127/87 Mechanical Ventilator 40 11/22/19 07:00 92 20 133/61 (85) 95 11/22/19 06:30 101 20 11/22/19 06:07 20 109/57 Mechanical Ventilator 40.0 40 11/22/19 06:06 20 109/56 Mechanical Ventilator 40 11/22/19 06:00 20 109/57 Mechanical Ventilator 40 11/22/19 06:00 78 18 114/46 (68) 94 11/22/19 05:45 78 22 100/59 (73) 95 11/22/19 05:30 81 20 105/53 (70) 95 11/22/19 05:15 89 18 120/61 (80) 96 11/22/19 05:00 90 19 113/55 (74) 95 11/22/19 05:00 20 113/55 Mechanical Ventilator 40 11/22/19 04:45 93 18 109/67 (81) 95 11/22/19 04:30 91 19 101/59 (73) 95 11/22/19 04:15 88 18 110/57 (74) 95 11/22/19 04:00 18 122/62 Mechanical Ventilator 40 11/22/19 04:00 Mechanical Ventilator Mechanical Ventilator 11/22/19 04:00 98.3 94 19 122/62 (82) 96 11/22/19 04:00 40 11/22/19 03:45 99 13 174/98 (123) 97 11/22/19 03:35 24 174/98 Mechanical Ventilator 40 11/22/19 03:34 18 167/80 Mechanical Ventilator 40 11/22/19 03:34 98 18 163/78 (106) 96 11/22/19 03:30 104 16 163/98 (119) 96 11/22/19 03:15 94 12 149/80 (103) 95 11/22/19 03:07 124 11/22/19 03:02 89 9 141/70 (93) 97 11/22/19 03:00 18 141/70 Mechanical Ventilator 40 11/22/19 03:00 90 20 141/70 (93) 96 11/22/19 02:54 101 23 35 11/22/19 02:45 93 18 144/74 (97) 96 11/22/19 02:40 104 18 154/90 (111) 96 11/22/19 02:40 22 154/90 Mechanical Ventilator 40 11/22/19 02:35 98 20 162/90 (114) 98 11/22/19 02:30 100 16 165/95 (118) 97 11/22/19 02:26 95 18 150/73 (98) 96 11/22/19 02:20 95 20 164/81 (108) 98 11/22/19 02:15 95 24 164/81 (108) 98 11/22/19 02:11 24 167/90 Mechanical Ventilator 40 11/22/19 02:10 22 167/90 Mechanical Ventilator 40 11/22/19 02:10 86 22 168/87 (114) 98 11/22/19 02:05 86 18 169/84 (112) 98 11/22/19 02:00 99 22 178/86 (116) 98 11/22/19 02:00 24 178/86 Mechanical Ventilator 40 11/22/19 01:00 18 157/87 Mechanical Ventilator 40 11/22/19 01:00 89 18 173/86 (115) 99 11/22/19 00:00 Mechanical Ventilator Mechanical Ventilator 11/22/19 00:00 18 157/107 Mechanical Ventilator 40 11/22/19 00:00 97.3 99 22 157/107 (124) 99 11/21/19 23:30 103 24 132/87 (102) 97 11/21/19 23:18 92 11/21/19 23:11 87 20 35 11/21/19 23:00 91 20 137/77 (97) 99 11/21/19 23:00 20 137/77 Mechanical Ventilator 40 11/21/19 22:30 87 18 130/64 (86) 96 11/21/19 22:00 97 15 165/82 (109) 98 11/21/19 22:00 15 130/64 Mechanical Ventilator 40.0 11/21/19 21:30 108 15 167/81 (109) 98 11/21/19 21:16 20 125/66 Mechanical Ventilator 40 11/21/19 21:15 99 119/84 11/21/19 21:15 20 161/81 Mechanical Ventilator 40 11/21/19 21:00 84 17 98/54 (69) 99 11/21/19 21:00 17 126/78 Mechanical Ventilator 40 11/21/19 20:30 85 20 125/66 (85) 100 11/21/19 20:00 97.6 89 20 163/85 (111) 98 11/21/19 20:00 40 11/21/19 20:00 20 125/66 Mechanical Ventilator 40 11/21/19 20:00 Mechanical Ventilator Mechanical Ventilator 11/21/19 19:30 85 18 92/74 (80) 98 11/21/19 19:24 73 11/21/19 19:17 98 22 35 11/21/19 19:00 32 105/85 Mechanical Ventilator 40 11/21/19 19:00 91 15 105/85 (92) 99 11/21/19 18:29 99 20 144/82 (102) 100 11/21/19 18:00 106 20 124/88 (100) 100 11/21/19 18:00 15 144/82 Mechanical Ventilator 40 11/21/19 17:30 110 20 148/73 (98) 100 11/21/19 17:00 95 16 123/88 (100) 100 11/21/19 17:00 12 148/73 Mechanical Ventilator 40 11/21/19 16:30 95 15 137/75 (95) 100 11/21/19 16:12 40 11/21/19 16:00 97 11/21/19 16:00 12 136/49 Mechanical Ventilator 40 11/21/19 16:00 Mechanical Ventilator Mechanical Ventilator 11/21/19 16:00 96 18 140/87 (104) 100 11/21/19 15:30 106 18 136/49 (78) 100 11/21/19 15:21 99 21 35 11/21/19 15:00 16 125/74 40 11/21/19 15:00 102 13 125/74 (91) 100 11/21/19 14:30 104 12 151/82 (105) 98 11/21/19 14:00 16 151/82 Mechanical Ventilator 40 11/21/19 14:00 105 12 147/100 (116) 98 11/21/19 13:30 108 16 155/109 (124) 99 11/21/19 13:00 107 19 153/76 (101) 99 11/21/19 13:00 15 153/76 Mechanical Ventilator 40 11/21/19 12:30 102 18 139/81 (100) 99 11/21/19 12:00 98 11/21/19 12:00 Mechanical Ventilator Mechanical Ventilator 11/21/19 12:00 18 122/76 Mechanical Ventilator 40 11/21/19 12:00 98.9 107 12 137/90 (106) 98 11/21/19 12:00 104 21 123/99 (107) 99 11/21/19 12:00 40 11/21/19 11:35 95 18 136/75 (95) 97 11/21/19 11:09 104 21 40 11/21/19 11:00 18 123/78 Mechanical Ventilator 40 11/21/19 11:00 108 18 133/87 (102) 98 11/21/19 10:15 100 16 142/85 (104) 98 11/21/19 10:00 18 120/70 Mechanical Ventilator 40 11/21/19 10:00 101 19 165/88 (113) 99 11/21/19 09:53 19 113/64 Mechanical Ventilator 40 11/21/19 09:30 100 2 93/72 (79) 92 11/21/19 09:00 126 16 122/83 (96) 92 11/21/19 08:47 122 128/88 11/21/19 08:00 Mechanical Ventilator Mechanical Ventilator 11/21/19 08:00 100 11/21/19 08:00 99.0 122 9 128/88 (101) 92 11/21/19 08:00 40 11/21/19 07:45 118 20 40 11/21/19 07:00 119 20 131/59 (83) 93 11/21/19 07:00 20 131/59 Mechanical Ventilator 60 11/21/19 06:30 109 20 11/21/19 06:30 109 20 118/61 (80) 92 11/21/19 06:00 117 20 103/48 (66) 92 11/21/19 06:00 20 103/48 Mechanical Ventilator 60 11/21/19 05:30 124 15 131/66 (87) 93 11/21/19 05:00 117 20 139/74 (95) 94 11/21/19 05:00 20 139/74 Mechanical Ventilator 60 11/21/19 04:30 102 16 128/78 (95) 97 11/21/19 04:15 97 17 98/53 (68) 96 11/21/19 04:00 Mechanical Ventilator Mechanical Ventilator 11/21/19 04:00 60 11/21/19 04:00 98.4 94 20 90/48 (62) 96 11/21/19 04:00 20 90/48 Mechanical Ventilator 60 11/21/19 04:00 94 11/21/19 03:30 105 20 102/44 (63) 96 11/21/19 03:06 107 20 40 11/21/19 03:00 103 16 101/67 (78) 97 11/21/19 03:00 16 101/67 Mechanical Ventilator 60 11/21/19 02:30 107 15 92/56 (68) 96 11/21/19 02:00 22 137/91 Mechanical Ventilator 60 11/21/19 02:00 111 22 137/91 (106) 98 11/21/19 01:30 100 20 106/62 (77) 95 11/21/19 01:00 16 127/84 Mechanical Ventilator 60 11/21/19 01:00 109 16 127/84 (98) 97 11/21/19 00:30 108 19 126/96 (106) 97 11/21/19 00:00 Mechanical Ventilator Mechanical Ventilator 11/21/19 00:00 60 11/21/19 00:00 20 111/48 Mechanical Ventilator 60 11/21/19 00:00 98.0 96 20 111/48 (69) 96 11/21/19 00:00 96 11/20/19 23:30 101 20 121/43 (69) 97 11/20/19 23:00 98 20 101/58 (72) 97 11/20/19 23:00 20 101/58 Mechanical Ventilator 60 11/20/19 23:00 104 20 40 11/20/19 22:30 101 20 114/81 (92) 100 11/20/19 22:00 95 20 105/51 (69) 100 11/20/19 22:00 20 105/51 Mechanical Ventilator 60 11/20/19 21:30 99 16 109/88 (95) 100 11/20/19 21:29 95 16 109/42 (64) 100 11/20/19 21:00 92 20 114/69 (84) 100 11/20/19 21:00 20 114/69 Mechanical Ventilator 60 11/20/19 20:50 93 104/57 11/20/19 20:30 98 16 107/68 (81) 100 11/20/19 20:00 Mechanical Ventilator Mechanical Ventilator 11/20/19 20:00 97.3 99 20 135/74 (94) 100 11/20/19 20:00 60 11/20/19 19:52 20 133/61 Mechanical Ventilator 60 11/20/19 19:49 104/57 11/20/19 19:30 101 20 127/64 (85) 100 11/20/19 19:23 102 11/20/19 19:00 89 19 86/67 (73) 100 11/20/19 19:00 19 86/67 Endotracheal Tube 60 11/20/19 18:52 100 20 40 11/20/19 18:30 98 20 93/61 (72) 100 11/20/19 18:00 102 20 103/60 (74) 100 11/20/19 18:00 22 103/60 Endotracheal Tube 60 11/20/19 17:30 86 20 100/58 (72) 100 11/20/19 17:08 96.9 92 20 111/69 (83) 99 11/20/19 17:00 20 111/69 Endotracheal Tube 60 11/20/19 16:30 102 20 125/84 (98) 100 11/20/19 16:02 101 20 115/72 (86) 100 11/20/19 16:00 92 11/20/19 16:00 20 115/72 Endotracheal Tube 60 11/20/19 16:00 Mechanical Ventilator Mechanical Ventilator 11/20/19 16:00 60 11/20/19 15:30 100 20 143/82 (102) 100 11/20/19 15:00 22 102/68 Endotracheal Tube 40 11/20/19 15:00 92 20 102/68 (79) 100 11/20/19 14:50 79 20 40 11/20/19 14:30 98 17 96/55 (69) 100 11/20/19 14:00 20 100/65 Endotracheal Tube 40 11/20/19 14:00 84 14 100/65 (77) 100 11/20/19 13:30 92 14 96/58 (71) 100 11/20/19 13:00 84 14 93/70 (78) 100 11/20/19 13:00 14 93/70 Endotracheal Tube 60 Intake and Output 11/21/19 11/22/19 19:00 07:00 Intake Total 1067.868 ml 1064.497 ml Output Total 430 ml 620 ml Balance 637.868 ml 444.497 ml Free Water 300 ml 230 ml IV Total 287.868 ml 354.497 ml Tube Feeding 480 ml 480 ml Output Urine Total 430 ml 620 ml Labs Test 11/19/19 12:44 11/19/19 12:50 11/19/19 17:20 11/19/19 17:21 Arterial Blood pH 7.367 (7.350-7.450) Arterial Blood Partial Pressure CO2 43.8 mmHg (35.0-45.0) Arterial Blood Partial Pressure O2 38.9 mmHg (75.0-100.0) Arterial Blood HCO3 24.6 mmol/L (22.0-26.0) Arterial Blood Oxygen Saturation 73.6 % (95-100) Arterial Blood Base Excess -0.9 (-2-2) Steve Test Positive POC Whole Blood Glucose 128 MG/DL (74-106) 61 MG/DL (74-106) 83 MG/DL (74-106) Test 11/19/19 23:43 11/20/19 03:55 11/20/19 05:43 11/20/19 07:35 White Blood Count 19.0 K/UL (4.8-10.8) Red Blood Count 3.94 M/UL (4.20-5.40) Hemoglobin 10.6 G/DL (12.0-16.0) Hematocrit 35.5 % (37.0-47.0) Mean Corpuscular Volume 90 FL (80-99) Mean Corpuscular Hemoglobin 26.8 PG (27.0-31.0) Mean Corpuscular Hemoglobin Concent 29.8 G/DL (32.0-36.0) Red Cell Distribution Width 17.5 % (11.6-14.8) Platelet Count 264 K/UL (150-450) Mean Platelet Volume 7.0 FL (6.5-10.1) Neutrophils (%) (Auto) % (45.0-75.0) Lymphocytes (%) (Auto) % (20.0-45.0) Monocytes (%) (Auto) % (1.0-10.0) Eosinophils (%) (Auto) % (0.0-3.0) Basophils (%) (Auto) % (0.0-2.0) Differential Total Cells Counted 100 Neutrophils % (Manual) 91 % (45-75) Lymphocytes % (Manual) 2 % (20-45) Monocytes % (Manual) 7 % (1-10) Eosinophils % (Manual) 0 % (0-3) Basophils % (Manual) 0 % (0-2) Band Neutrophils 0 % (0-8) Platelet Estimate Adequate Platelet Morphology Normal Hypochromasia 1+ Poikilocytosis 1+ Anisocytosis 1+ Sodium Level 144 MMOL/L (136-145) Potassium Level 5.7 MMOL/L (3.5-5.1) Chloride Level 109 MMOL/L (98-107) Carbon Dioxide Level 35 MMOL/L (21-32) Anion Gap 0 mmol/L (5-15) Blood Urea Nitrogen 30 mg/dL (7-18) Creatinine 1.0 MG/DL (0.55-1.30) Estimat Glomerular Filtration Rate 58.0 mL/min (>60) Glucose Level 111 MG/DL (74-106) Calcium Level 8.7 MG/DL (8.5-10.1) Arterial Blood pH 7.387 (7.350-7.450) Arterial Blood Partial Pressure CO2 49.5 mmHg (35.0-45.0) Arterial Blood Partial Pressure O2 195.0 mmHg (75.0-100.0) Arterial Blood HCO3 29.1 mmol/L (22.0-26.0) Arterial Blood Oxygen Saturation 99.2 % (95-100) Arterial Blood Base Excess 3.3 (-2-2) Steve Test Positive Test 11/20/19 08:35 11/20/19 23:33 11/21/19 03:15 11/21/19 05:15 Potassium Level 4.6 MMOL/L (3.5-5.1) 5.8 MMOL/L (3.5-5.1) POC Whole Blood Glucose 158 MG/DL (74-106) 224 MG/DL (74-106) Sodium Level 140 MMOL/L (136-145) Chloride Level 107 MMOL/L (98-107) Carbon Dioxide Level 29 MMOL/L (21-32) Anion Gap 4 mmol/L (5-15) Blood Urea Nitrogen 32 mg/dL (7-18) Creatinine 1.0 MG/DL (0.55-1.30) Estimat Glomerular Filtration Rate 58.0 mL/min (>60) Glucose Level 152 MG/DL (74-106) Calcium Level 8.5 MG/DL (8.5-10.1) Test 11/21/19 08:15 11/21/19 23:27 11/22/19 05:41 11/22/19 07:14 White Blood Count 21.2 K/UL (4.8-10.8) 16.7 K/UL (4.8-10.8) Red Blood Count 4.25 M/UL (4.20-5.40) 3.55 M/UL (4.20-5.40) Hemoglobin 11.3 G/DL (12.0-16.0) 9.4 G/DL (12.0-16.0) Hematocrit 37.9 % (37.0-47.0) 32.0 % (37.0-47.0) Mean Corpuscular Volume 89 FL (80-99) 90 FL (80-99) Mean Corpuscular Hemoglobin 26.6 PG (27.0-31.0) 26.5 PG (27.0-31.0) Mean Corpuscular Hemoglobin Concent 29.8 G/DL (32.0-36.0) 29.5 G/DL (32.0-36.0) Red Cell Distribution Width 17.6 % (11.6-14.8) 17.6 % (11.6-14.8) Platelet Count 221 K/UL (150-450) 238 K/UL (150-450) Mean Platelet Volume 6.5 FL (6.5-10.1) 6.7 FL (6.5-10.1) Neutrophils (%) (Auto) % (45.0-75.0) % (45.0-75.0) Lymphocytes (%) (Auto) % (20.0-45.0) % (20.0-45.0) Monocytes (%) (Auto) % (1.0-10.0) % (1.0-10.0) Eosinophils (%) (Auto) % (0.0-3.0) % (0.0-3.0) Basophils (%) (Auto) % (0.0-2.0) % (0.0-2.0) Differential Total Cells Counted 100 100 Neutrophils % (Manual) 97 % (45-75) 97 % (45-75) Lymphocytes % (Manual) 2 % (20-45) 1 % (20-45) Monocytes % (Manual) 1 % (1-10) 2 % (1-10) Eosinophils % (Manual) 0 % (0-3) 0 % (0-3) Basophils % (Manual) 0 % (0-2) 0 % (0-2) Band Neutrophils 0 % (0-8) 0 % (0-8) Platelet Estimate Adequate Adequate Platelet Morphology Normal Normal Hypochromasia 1+ 2+ Anisocytosis 1+ 1+ Potassium Level 5.0 MMOL/L (3.5-5.1) 4.5 MMOL/L (3.5-5.1) Sodium Level 143 MMOL/L (136-145) Chloride Level 106 MMOL/L (98-107) Carbon Dioxide Level 33 MMOL/L (21-32) Anion Gap 4 mmol/L (5-15) Blood Urea Nitrogen 40 mg/dL (7-18) Creatinine 1.1 MG/DL (0.55-1.30) Estimat Glomerular Filtration Rate 51.9 mL/min (>60) Glucose Level 281 MG/DL (74-106) Calcium Level 8.5 MG/DL (8.5-10.1) Phosphorus Level 4.2 MG/DL (2.5-4.9) Magnesium Level 2.1 MG/DL (1.8-2.4) Total Bilirubin 0.9 MG/DL (0.2-1.0) Aspartate Amino Transf (AST/SGOT) 33 U/L (15-37) Alanine Aminotransferase (ALT/SGPT) 30 U/L (12-78) Alkaline Phosphatase 208 U/L (46-116) Total Protein 6.1 G/DL (6.4-8.2) Albumin 1.9 G/DL (3.4-5.0) Globulin 4.2 g/dL Albumin/Globulin Ratio 0.5 (1.0-2.7) Arterial Blood pH 7.407 (7.350-7.450) Arterial Blood Partial Pressure CO2 46.5 mmHg (35.0-45.0) Arterial Blood Partial Pressure O2 69.8 mmHg (75.0-100.0) Arterial Blood HCO3 28.6 mmol/L (22.0-26.0) Arterial Blood Oxygen Saturation 92.8 % (95-100) Arterial Blood Base Excess 3.4 (-2-2) Steve Test Positive Height (Feet): 5 Height (Inches): 3.00 Weight (Pounds): 310 Objective Physical Exam: Vitals: reviewed General: NAD HEENT: nc, at Neck: supple Chest: clear breath sounds on vent++ Cardiovascular: RRR, no s3, s4 Abdomen: soft, nontender, nd Extremities: no cce, normal range of motion Neuro: alert and oriented Ismael Fischer MD Nov 22, 2019 12:37
--- NOTE | 2019-11-22 12:37 | Infectious Diseases Prog Note ---
Assessment/Plan Assessment/Plan A: 1. COVID-19 pneumonia. 2. Diabetes with hyper 3. Hypertension. 4. Hypoxic respiratory failure 5. Morbid obesity 6. Nasal bleeding 7. Lactic acidosis 8. Hyperkalemia 9. Leukocytosis improving PLAN: 1. Finished Remdesivir 2. Continue isolation. 3. sputum culture Subjective ROS Limited/Unobtainable: Yes Constitutional: Denies: fever Allergies: Coded Allergies: No Known Allergies (Unverified , 11/06/19) Objective Last 24 Hour Vital Signs Date Time Temp Pulse Resp B/P (MAP) Pulse Ox O2 Delivery O2 Flow Rate FiO2 11/22/19 12:00 40 11/22/19 12:00 Mechanical Ventilator Mechanical Ventilator 11/22/19 12:00 75 11/22/19 12:00 99.2 73 20 98/55 (69) 94 11/22/19 11:45 76 20 104/53 (70) 95 11/22/19 11:30 75 20 103/54 (70) 95 11/22/19 11:15 80 20 110/54 (72) 96 11/22/19 11:00 20 124/55 Mechanical Ventilator 40 11/22/19 11:00 82 20 124/55 (78) 95 11/22/19 10:45 84 20 128/63 (84) 95 11/22/19 10:37 72 20 35 11/22/19 10:32 76 20 108/75 (86) 93 11/22/19 10:30 74 20 87/72 (77) 95 11/22/19 10:15 77 20 102/53 (69) 95 11/22/19 10:00 76 20 93/50 (64) 95 11/22/19 10:00 20 93/50 Mechanical Ventilator 40 11/22/19 09:45 75 20 92/55 (67) 95 11/22/19 09:30 75 20 104/58 (73) 95 11/22/19 09:15 87 20 110/56 (74) 95 11/22/19 09:00 90 20 124/66 (85) 95 11/22/19 09:00 20 124/66 Mechanical Ventilator 40 11/22/19 08:45 90 20 128/79 (95) 95 11/22/19 08:31 90 116/61 11/22/19 08:30 88 20 121/68 (85) 95 11/22/19 08:15 90 20 116/61 (79) 95 11/22/19 08:00 40 11/22/19 08:00 86 11/22/19 08:00 20 119/60 Mechanical Ventilator 40 11/22/19 08:00 98.6 89 20 119/60 (79) 95 11/22/19 08:00 Mechanical Ventilator Mechanical Ventilator 11/22/19 07:45 89 20 112/69 (83) 97 11/22/19 07:30 91 20 126/60 (82) 96 11/22/19 07:15 91 20 137/87 (104) 96 11/22/19 07:12 98 20 35 11/22/19 07:00 20 127/87 Mechanical Ventilator 40 11/22/19 07:00 92 20 133/61 (85) 95 11/22/19 06:30 101 20 11/22/19 06:07 20 109/57 Mechanical Ventilator 40.0 40 11/22/19 06:06 20 109/56 Mechanical Ventilator 40 11/22/19 06:00 20 109/57 Mechanical Ventilator 40 11/22/19 06:00 78 18 114/46 (68) 94 11/22/19 05:45 78 22 100/59 (73) 95 11/22/19 05:30 81 20 105/53 (70) 95 11/22/19 05:15 89 18 120/61 (80) 96 11/22/19 05:00 90 19 113/55 (74) 95 11/22/19 05:00 20 113/55 Mechanical Ventilator 40 11/22/19 04:45 93 18 109/67 (81) 95 11/22/19 04:30 91 19 101/59 (73) 95 11/22/19 04:15 88 18 110/57 (74) 95 11/22/19 04:00 18 122/62 Mechanical Ventilator 40 11/22/19 04:00 Mechanical Ventilator Mechanical Ventilator 11/22/19 04:00 98.3 94 19 122/62 (82) 96 11/22/19 04:00 40 11/22/19 03:45 99 13 174/98 (123) 97 11/22/19 03:35 24 174/98 Mechanical Ventilator 40 11/22/19 03:34 18 167/80 Mechanical Ventilator 40 11/22/19 03:34 98 18 163/78 (106) 96 11/22/19 03:30 104 16 163/98 (119) 96 11/22/19 03:15 94 12 149/80 (103) 95 11/22/19 03:07 124 11/22/19 03:02 89 9 141/70 (93) 97 11/22/19 03:00 18 141/70 Mechanical Ventilator 40 11/22/19 03:00 90 20 141/70 (93) 96 11/22/19 02:54 101 23 35 11/22/19 02:45 93 18 144/74 (97) 96 11/22/19 02:40 104 18 154/90 (111) 96 11/22/19 02:40 22 154/90 Mechanical Ventilator 40 11/22/19 02:35 98 20 162/90 (114) 98 11/22/19 02:30 100 16 165/95 (118) 97 11/22/19 02:26 95 18 150/73 (98) 96 11/22/19 02:20 95 20 164/81 (108) 98 11/22/19 02:15 95 24 164/81 (108) 98 11/22/19 02:11 24 167/90 Mechanical Ventilator 40 11/22/19 02:10 22 167/90 Mechanical Ventilator 40 11/22/19 02:10 86 22 168/87 (114) 98 11/22/19 02:05 86 18 169/84 (112) 98 11/22/19 02:00 99 22 178/86 (116) 98 11/22/19 02:00 24 178/86 Mechanical Ventilator 40 11/22/19 01:00 18 157/87 Mechanical Ventilator 40 11/22/19 01:00 89 18 173/86 (115) 99 11/22/19 00:00 Mechanical Ventilator Mechanical Ventilator 11/22/19 00:00 18 157/107 Mechanical Ventilator 40 11/22/19 00:00 97.3 99 22 157/107 (124) 99 11/21/19 23:30 103 24 132/87 (102) 97 11/21/19 23:18 92 11/21/19 23:11 87 20 35 11/21/19 23:00 91 20 137/77 (97) 99 11/21/19 23:00 20 137/77 Mechanical Ventilator 40 11/21/19 22:30 87 18 130/64 (86) 96 11/21/19 22:00 97 15 165/82 (109) 98 11/21/19 22:00 15 130/64 Mechanical Ventilator 40.0 11/21/19 21:30 108 15 167/81 (109) 98 11/21/19 21:16 20 125/66 Mechanical Ventilator 40 11/21/19 21:15 99 119/84 11/21/19 21:15 20 161/81 Mechanical Ventilator 40 11/21/19 21:00 84 17 98/54 (69) 99 11/21/19 21:00 17 126/78 Mechanical Ventilator 40 11/21/19 20:30 85 20 125/66 (85) 100 11/21/19 20:00 97.6 89 20 163/85 (111) 98 11/21/19 20:00 40 11/21/19 20:00 20 125/66 Mechanical Ventilator 40 11/21/19 20:00 Mechanical Ventilator Mechanical Ventilator 11/21/19 19:30 85 18 92/74 (80) 98 11/21/19 19:24 73 11/21/19 19:17 98 22 35 11/21/19 19:00 32 105/85 Mechanical Ventilator 40 11/21/19 19:00 91 15 105/85 (92) 99 11/21/19 18:29 99 20 144/82 (102) 100 11/21/19 18:00 106 20 124/88 (100) 100 11/21/19 18:00 15 144/82 Mechanical Ventilator 40 11/21/19 17:30 110 20 148/73 (98) 100 11/21/19 17:00 95 16 123/88 (100) 100 11/21/19 17:00 12 148/73 Mechanical Ventilator 40 11/21/19 16:30 95 15 137/75 (95) 100 11/21/19 16:12 40 11/21/19 16:00 97 11/21/19 16:00 12 136/49 Mechanical Ventilator 40 11/21/19 16:00 Mechanical Ventilator Mechanical Ventilator 11/21/19 16:00 96 18 140/87 (104) 100 11/21/19 15:30 106 18 136/49 (78) 100 11/21/19 15:21 99 21 35 11/21/19 15:00 16 125/74 40 11/21/19 15:00 102 13 125/74 (91) 100 11/21/19 14:30 104 12 151/82 (105) 98 11/21/19 14:00 16 151/82 Mechanical Ventilator 40 11/21/19 14:00 105 12 147/100 (116) 98 11/21/19 13:30 108 16 155/109 (124) 99 11/21/19 13:00 107 19 153/76 (101) 99 11/21/19 13:00 15 153/76 Mechanical Ventilator 40 Height (Feet): 5 Height (Inches): 3.00 Weight (Pounds): 310 HEENT: other - orally intubated Respiratory/Chest: other - on ventilator Cardiovascular: normal rate Abdomen: soft, non tender Neurologic/Psychiatric: other - sedated Laboratory Tests Test 11/21/19 23:27 11/22/19 05:41 11/22/19 07:14 POC Whole Blood Glucose Pending White Blood Count 16.7 K/UL (4.8-10.8) H Red Blood Count 3.55 M/UL (4.20-5.40) L Hemoglobin 9.4 G/DL (12.0-16.0) L Hematocrit 32.0 % (37.0-47.0) L Mean Corpuscular Volume 90 FL (80-99) Mean Corpuscular Hemoglobin 26.5 PG (27.0-31.0) L Mean Corpuscular Hemoglobin Concent 29.5 G/DL (32.0-36.0) L Red Cell Distribution Width 17.6 % (11.6-14.8) H Platelet Count 238 K/UL (150-450) Mean Platelet Volume 6.7 FL (6.5-10.1) Neutrophils (%) (Auto) % (45.0-75.0) Lymphocytes (%) (Auto) % (20.0-45.0) Monocytes (%) (Auto) % (1.0-10.0) Eosinophils (%) (Auto) % (0.0-3.0) Basophils (%) (Auto) % (0.0-2.0) Differential Total Cells Counted 100 Neutrophils % (Manual) 97 % (45-75) H Lymphocytes % (Manual) 1 % (20-45) L Monocytes % (Manual) 2 % (1-10) Eosinophils % (Manual) 0 % (0-3) Basophils % (Manual) 0 % (0-2) Band Neutrophils 0 % (0-8) Platelet Estimate Adequate Platelet Morphology Normal Hypochromasia 2+ Anisocytosis 1+ Sodium Level 143 MMOL/L (136-145) Potassium Level 4.5 MMOL/L (3.5-5.1) Chloride Level 106 MMOL/L (98-107) Carbon Dioxide Level 33 MMOL/L (21-32) H Anion Gap 4 mmol/L (5-15) L Blood Urea Nitrogen 40 mg/dL (7-18) H Creatinine 1.1 MG/DL (0.55-1.30) Estimat Glomerular Filtration Rate 51.9 mL/min (>60) Glucose Level 281 MG/DL (74-106) #H Calcium Level 8.5 MG/DL (8.5-10.1) Phosphorus Level 4.2 MG/DL (2.5-4.9) Magnesium Level 2.1 MG/DL (1.8-2.4) Total Bilirubin 0.9 MG/DL (0.2-1.0) Aspartate Amino Transf (AST/SGOT) 33 U/L (15-37) Alanine Aminotransferase (ALT/SGPT) 30 U/L (12-78) Alkaline Phosphatase 208 U/L (46-116) H Total Protein 6.1 G/DL (6.4-8.2) L Albumin 1.9 G/DL (3.4-5.0) L Globulin 4.2 g/dL Albumin/Globulin Ratio 0.5 (1.0-2.7) L Arterial Blood pH 7.407 (7.350-7.450) Arterial Blood Partial Pressure CO2 46.5 mmHg (35.0-45.0) H Arterial Blood Partial Pressure O2 69.8 mmHg (75.0-100.0) L Arterial Blood HCO3 28.6 mmol/L (22.0-26.0) H Arterial Blood Oxygen Saturation 92.8 % (95-100) L Arterial Blood Base Excess 3.4 (-2-2) H Steve Test Positive Current Medications Medications (Trade) Dose Ordered Sig/Robyn Route PRN Reason Start Time Stop Time Status Last Admin Dose Admin Acetaminophen (Tylenol) 650 mg Q6H PRN NG Temp >100.5 11/12/19 00:15 12/12/19 00:14 11/16/19 09:02 Amiodarone HCl (Cordarone) 400 mg EVERY 12 HOURS ORAL 11/20/19 09:30 02/18/20 09:29 11/22/19 08:32 Chlorhexidine Gluconate (Miya-Hex 2%) 1 applic DAILY@2000 TOPIC 11/08/19 21:30 02/06/20 21:29 11/21/19 20:43 Clonidine HCl (Catapres Tab) 0.1 mg Q4H PRN NG For High Blood Pressure 11/13/19 17:00 02/09/20 10:59 Dextrose (Dextrose 50%) 25 ml Q30M PRN IV Hypoglycemia 11/08/19 12:30 02/05/20 02:59 11/18/19 23:54 Dextrose (Dextrose 50%) 50 ml Q30M PRN IV Hypoglycemia 11/08/19 12:30 02/05/20 02:59 Dopamine HCl/ Dextrose 250 ml @ 0 mls/hr Q24H IV 11/19/19 18:36 02/17/20 18:35 11/19/19 18:41 Famotidine (Pepcid I.v.) 20 mg Q12HR IVP 11/08/19 15:30 12/08/19 15:29 11/22/19 08:32 Fentanyl Citrate 250 ml @ 0 mls/hr Q24H IV 11/19/19 12:15 02/17/20 12:14 11/22/19 06:07 Folic Acid (Folate) 2 mg DAILY GT 11/15/19 09:00 12/15/19 08:59 11/22/19 08:32 Furosemide 100 mg/ Dextrose 100 ml @ 5 mls/hr Q20H IV 11/21/19 13:00 12/21/19 12:59 11/22/19 08:31 Insulin Aspart (NovoLOG) EVERY 6 HOURS SUBQ 11/15/19 12:00 02/11/20 20:59 11/22/19 12:27 Lorazepam (Ativan 2mg/ml 1ml) 1 mg Q4H PRN IV For Anxiety 11/21/19 11:00 11/28/19 10:59 11/22/19 03:46 Methylprednisolone Sodium Succinate (Solu-MEDROL) 20 mg EVERY 12 HOURS IVP 11/21/19 21:00 02/18/20 20:59 11/22/19 08:32 Metoprolol Tartrate (Lopressor) 25 mg Q12HR ORAL 11/20/19 09:30 02/18/20 09:29 11/22/19 08:31 Norepinephrine Bitartrate 250 ml @ 0 mls/hr Q24H IV 11/19/19 19:49 02/17/20 19:48 Jose Hernandez MD Nov 22, 2019 12:37
[2019-11-22] MEDS ORDERED: D5W 275ml ONE (12:50)
--- NOTE | 2019-11-22 13:00 | Surgery Progress Note ---
Surgery Progress Note Subjective Procedure Performed Left femoral triple-lumen catheter removal Additional Comments labs noted discussed with nursing staff family discussions oingoing for care plan Objective Last 24 Hour Vital Signs Date Time Temp Pulse Resp B/P (MAP) Pulse Ox O2 Delivery O2 Flow Rate FiO2 11/22/19 12:00 40 11/22/19 12:00 Mechanical Ventilator Mechanical Ventilator 11/22/19 12:00 75 11/22/19 12:00 99.2 73 20 98/55 (69) 94 11/22/19 11:45 76 20 104/53 (70) 95 11/22/19 11:30 75 20 103/54 (70) 95 11/22/19 11:15 80 20 110/54 (72) 96 11/22/19 11:00 20 124/55 Mechanical Ventilator 40 11/22/19 11:00 82 20 124/55 (78) 95 11/22/19 10:45 84 20 128/63 (84) 95 11/22/19 10:37 72 20 35 11/22/19 10:32 76 20 108/75 (86) 93 11/22/19 10:30 74 20 87/72 (77) 95 11/22/19 10:15 77 20 102/53 (69) 95 11/22/19 10:00 76 20 93/50 (64) 95 11/22/19 10:00 20 93/50 Mechanical Ventilator 40 11/22/19 09:45 75 20 92/55 (67) 95 11/22/19 09:30 75 20 104/58 (73) 95 11/22/19 09:15 87 20 110/56 (74) 95 11/22/19 09:00 90 20 124/66 (85) 95 11/22/19 09:00 20 124/66 Mechanical Ventilator 40 11/22/19 08:45 90 20 128/79 (95) 95 11/22/19 08:31 90 116/61 11/22/19 08:30 88 20 121/68 (85) 95 11/22/19 08:15 90 20 116/61 (79) 95 11/22/19 08:00 40 11/22/19 08:00 86 11/22/19 08:00 20 119/60 Mechanical Ventilator 40 11/22/19 08:00 98.6 89 20 119/60 (79) 95 11/22/19 08:00 Mechanical Ventilator Mechanical Ventilator 11/22/19 07:45 89 20 112/69 (83) 97 11/22/19 07:30 91 20 126/60 (82) 96 11/22/19 07:15 91 20 137/87 (104) 96 11/22/19 07:12 98 20 35 11/22/19 07:00 20 127/87 Mechanical Ventilator 40 11/22/19 07:00 92 20 133/61 (85) 95 11/22/19 06:30 101 20 11/22/19 06:07 20 109/57 Mechanical Ventilator 40.0 40 11/22/19 06:06 20 109/56 Mechanical Ventilator 40 11/22/19 06:00 20 109/57 Mechanical Ventilator 40 11/22/19 06:00 78 18 114/46 (68) 94 11/22/19 05:45 78 22 100/59 (73) 95 11/22/19 05:30 81 20 105/53 (70) 95 11/22/19 05:15 89 18 120/61 (80) 96 11/22/19 05:00 90 19 113/55 (74) 95 11/22/19 05:00 20 113/55 Mechanical Ventilator 40 11/22/19 04:45 93 18 109/67 (81) 95 11/22/19 04:30 91 19 101/59 (73) 95 11/22/19 04:15 88 18 110/57 (74) 95 11/22/19 04:00 18 122/62 Mechanical Ventilator 40 11/22/19 04:00 Mechanical Ventilator Mechanical Ventilator 11/22/19 04:00 98.3 94 19 122/62 (82) 96 11/22/19 04:00 40 11/22/19 03:45 99 13 174/98 (123) 97 11/22/19 03:35 24 174/98 Mechanical Ventilator 40 11/22/19 03:34 18 167/80 Mechanical Ventilator 40 11/22/19 03:34 98 18 163/78 (106) 96 11/22/19 03:30 104 16 163/98 (119) 96 11/22/19 03:15 94 12 149/80 (103) 95 11/22/19 03:07 124 11/22/19 03:02 89 9 141/70 (93) 97 11/22/19 03:00 18 141/70 Mechanical Ventilator 40 11/22/19 03:00 90 20 141/70 (93) 96 11/22/19 02:54 101 23 35 11/22/19 02:45 93 18 144/74 (97) 96 11/22/19 02:40 104 18 154/90 (111) 96 11/22/19 02:40 22 154/90 Mechanical Ventilator 40 11/22/19 02:35 98 20 162/90 (114) 98 11/22/19 02:30 100 16 165/95 (118) 97 11/22/19 02:26 95 18 150/73 (98) 96 11/22/19 02:20 95 20 164/81 (108) 98 11/22/19 02:15 95 24 164/81 (108) 98 11/22/19 02:11 24 167/90 Mechanical Ventilator 40 11/22/19 02:10 22 167/90 Mechanical Ventilator 40 11/22/19 02:10 86 22 168/87 (114) 98 11/22/19 02:05 86 18 169/84 (112) 98 11/22/19 02:00 99 22 178/86 (116) 98 11/22/19 02:00 24 178/86 Mechanical Ventilator 40 11/22/19 01:00 18 157/87 Mechanical Ventilator 40 11/22/19 01:00 89 18 173/86 (115) 99 11/22/19 00:00 Mechanical Ventilator Mechanical Ventilator 11/22/19 00:00 18 157/107 Mechanical Ventilator 40 11/22/19 00:00 97.3 99 22 157/107 (124) 99 11/21/19 23:30 103 24 132/87 (102) 97 11/21/19 23:18 92 11/21/19 23:11 87 20 35 11/21/19 23:00 91 20 137/77 (97) 99 11/21/19 23:00 20 137/77 Mechanical Ventilator 40 11/21/19 22:30 87 18 130/64 (86) 96 11/21/19 22:00 97 15 165/82 (109) 98 11/21/19 22:00 15 130/64 Mechanical Ventilator 40.0 11/21/19 21:30 108 15 167/81 (109) 98 11/21/19 21:16 20 125/66 Mechanical Ventilator 40 11/21/19 21:15 99 119/84 11/21/19 21:15 20 161/81 Mechanical Ventilator 40 11/21/19 21:00 84 17 98/54 (69) 99 11/21/19 21:00 17 126/78 Mechanical Ventilator 40 11/21/19 20:30 85 20 125/66 (85) 100 11/21/19 20:00 97.6 89 20 163/85 (111) 98 11/21/19 20:00 40 11/21/19 20:00 20 125/66 Mechanical Ventilator 40 11/21/19 20:00 Mechanical Ventilator Mechanical Ventilator 11/21/19 19:30 85 18 92/74 (80) 98 11/21/19 19:24 73 11/21/19 19:17 98 22 35 11/21/19 19:00 32 105/85 Mechanical Ventilator 40 11/21/19 19:00 91 15 105/85 (92) 99 11/21/19 18:29 99 20 144/82 (102) 100 11/21/19 18:00 106 20 124/88 (100) 100 11/21/19 18:00 15 144/82 Mechanical Ventilator 40 11/21/19 17:30 110 20 148/73 (98) 100 11/21/19 17:00 95 16 123/88 (100) 100 11/21/19 17:00 12 148/73 Mechanical Ventilator 40 11/21/19 16:30 95 15 137/75 (95) 100 11/21/19 16:12 40 11/21/19 16:00 97 11/21/19 16:00 12 136/49 Mechanical Ventilator 40 11/21/19 16:00 Mechanical Ventilator Mechanical Ventilator 11/21/19 16:00 96 18 140/87 (104) 100 11/21/19 15:30 106 18 136/49 (78) 100 11/21/19 15:21 99 21 35 11/21/19 15:00 16 125/74 40 11/21/19 15:00 102 13 125/74 (91) 100 11/21/19 14:30 104 12 151/82 (105) 98 11/21/19 14:00 16 151/82 Mechanical Ventilator 40 11/21/19 14:00 105 12 147/100 (116) 98 11/21/19 13:30 108 16 155/109 (124) 99 I&O Intake and Output 11/21/19 11/22/19 19:00 07:00 Intake Total 1067.868 ml 1064.497 ml Output Total 430 ml 620 ml Balance 637.868 ml 444.497 ml Free Water 300 ml 230 ml IV Total 287.868 ml 354.497 ml Tube Feeding 480 ml 480 ml Output Urine Total 430 ml 620 ml Dressing: saturated Cardiovascular: RSR Respiratory: decreased breath sounds Abdomen: soft, non-tender, present bowel sounds Extremities: edema, no cyanosis Laboratory Tests Test 11/21/19 23:27 11/22/19 05:41 11/22/19 06:11 11/22/19 07:14 POC Whole Blood Glucose Pending Pending White Blood Count 16.7 K/UL (4.8-10.8) H Red Blood Count 3.55 M/UL (4.20-5.40) L Hemoglobin 9.4 G/DL (12.0-16.0) L Hematocrit 32.0 % (37.0-47.0) L Mean Corpuscular Volume 90 FL (80-99) Mean Corpuscular Hemoglobin 26.5 PG (27.0-31.0) L Mean Corpuscular Hemoglobin Concent 29.5 G/DL (32.0-36.0) L Red Cell Distribution Width 17.6 % (11.6-14.8) H Platelet Count 238 K/UL (150-450) Mean Platelet Volume 6.7 FL (6.5-10.1) Neutrophils (%) (Auto) % (45.0-75.0) Lymphocytes (%) (Auto) % (20.0-45.0) Monocytes (%) (Auto) % (1.0-10.0) Eosinophils (%) (Auto) % (0.0-3.0) Basophils (%) (Auto) % (0.0-2.0) Differential Total Cells Counted 100 Neutrophils % (Manual) 97 % (45-75) H Lymphocytes % (Manual) 1 % (20-45) L Monocytes % (Manual) 2 % (1-10) Eosinophils % (Manual) 0 % (0-3) Basophils % (Manual) 0 % (0-2) Band Neutrophils 0 % (0-8) Platelet Estimate Adequate Platelet Morphology Normal Hypochromasia 2+ Anisocytosis 1+ Sodium Level 143 MMOL/L (136-145) Potassium Level 4.5 MMOL/L (3.5-5.1) Chloride Level 106 MMOL/L (98-107) Carbon Dioxide Level 33 MMOL/L (21-32) H Anion Gap 4 mmol/L (5-15) L Blood Urea Nitrogen 40 mg/dL (7-18) H Creatinine 1.1 MG/DL (0.55-1.30) Estimat Glomerular Filtration Rate 51.9 mL/min (>60) Glucose Level 281 MG/DL (74-106) #H Calcium Level 8.5 MG/DL (8.5-10.1) Phosphorus Level 4.2 MG/DL (2.5-4.9) Magnesium Level 2.1 MG/DL (1.8-2.4) Total Bilirubin 0.9 MG/DL (0.2-1.0) Aspartate Amino Transf (AST/SGOT) 33 U/L (15-37) Alanine Aminotransferase (ALT/SGPT) 30 U/L (12-78) Alkaline Phosphatase 208 U/L (46-116) H Total Protein 6.1 G/DL (6.4-8.2) L Albumin 1.9 G/DL (3.4-5.0) L Globulin 4.2 g/dL Albumin/Globulin Ratio 0.5 (1.0-2.7) L Arterial Blood pH 7.407 (7.350-7.450) Arterial Blood Partial Pressure CO2 46.5 mmHg (35.0-45.0) H Arterial Blood Partial Pressure O2 69.8 mmHg (75.0-100.0) L Arterial Blood HCO3 28.6 mmol/L (22.0-26.0) H Arterial Blood Oxygen Saturation 92.8 % (95-100) L Arterial Blood Base Excess 3.4 (-2-2) H Steve Test Positive Plan Problems: (1) Weak (2) UTI (urinary tract infection) (3) Hypoxia (4) Epistaxis Assessment & Plan: Severe after taxis left nostril Rhino Rocket placed hemostasis noted over the course 24 hours hemoglobin stable Lovenox been stopped. The balloon of both ports of the Rhino Rocket were deflated today. The rocket itself was not removed and will monitor over the course next 24 hours hemostasis. If so will gently remove and plan for local monitoring. Currently wean ventilator as tolerated. Goals of extubation when possible. deflated balloon 11/08 removed trumpet 11/09 will monitor for bleeding wean vent plan extubation discussed with pulm (5) Fluid overload Assessment & Plan: Continue central venous catheter for now. Will anticipate removal once patient stable for extubation. Thank you for allowing me to participate patient's care picc in line out (6) Diabetes (7) CHF (congestive heart failure) (8) Afib (9) Multifocal pneumonia (10) 2019 novel coronavirus disease (COVID-19) Assessment & Plan: + wean vent extubated failed reintubated consider trach (11) Respiratory failure Ortiz Fleming Nov 22, 2019 13:00
--- NOTE | 2019-11-22 14:05 | Nephrology Progress Note ---
Assessment/Plan Problem List: (1) Electrolyte imbalance (2) Diabetes (3) 2019 novel coronavirus disease (COVID-19) (4) Respiratory failure Assessment 1. COVID-19 pneumonia. 2. Diabetes and hyperglycemia 3. Hypertension. 4. Hypoxic respiratory failure 5. Morbid obesity with BMI of 65.5 6. Nasal bleeding 7. Lactic acidosis 8. Hyperkalemia Plan November 21: Renal parameters stable. On IV Lasix. Edematous. Will order few doses of albumin 25%. Continue per consultants. November 20: Repeat serum potassium again normal. Renal parameters normal. Continue per consultants. November 19: Repeat serum potassium normal. Renal parameters within normal limit. Continue per consultants. November 18: Levemir stopped since IV fluid and dexamethasone are discontinued and patient blood sugar went down. Renal parameters are stable. Continues to be on ventilator. Previously: Renal parameters stable Weaning is being attempted patient's urine output is low. We will give a trial of albumin and Lasix, As needed Discussed with RN Stop IV to D5W 75 cc an hour Levemir 20 units subcu every 12 hours Kayexalate for high potassium as needed Monitor electrolytes and renal parameters Tight blood sugar control, long-acting insulin as needed Keep the blood pressure in check Per orders Subjective ROS Limited/Unobtainable: Yes Objective Objective Last 24 Hour Vital Signs Date Time Temp Pulse Resp B/P (MAP) Pulse Ox O2 Delivery O2 Flow Rate FiO2 11/22/19 13:00 89 20 124/66 (85) 96 11/22/19 13:00 20 124/66 Mechanical Ventilator 40 11/22/19 12:00 40 11/22/19 12:00 Mechanical Ventilator Mechanical Ventilator 11/22/19 12:00 75 11/22/19 12:00 99.2 73 20 98/55 (69) 94 11/22/19 11:45 76 20 104/53 (70) 95 11/22/19 11:30 75 20 103/54 (70) 95 11/22/19 11:15 80 20 110/54 (72) 96 11/22/19 11:00 20 124/55 Mechanical Ventilator 40 11/22/19 11:00 82 20 124/55 (78) 95 11/22/19 10:45 84 20 128/63 (84) 95 11/22/19 10:37 72 20 35 11/22/19 10:32 76 20 108/75 (86) 93 11/22/19 10:30 74 20 87/72 (77) 95 11/22/19 10:15 77 20 102/53 (69) 95 11/22/19 10:00 76 20 93/50 (64) 95 11/22/19 10:00 20 93/50 Mechanical Ventilator 40 11/22/19 09:45 75 20 92/55 (67) 95 11/22/19 09:30 75 20 104/58 (73) 95 11/22/19 09:15 87 20 110/56 (74) 95 11/22/19 09:00 90 20 124/66 (85) 95 11/22/19 09:00 20 124/66 Mechanical Ventilator 40 11/22/19 08:45 90 20 128/79 (95) 95 11/22/19 08:31 90 116/61 11/22/19 08:30 88 20 121/68 (85) 95 11/22/19 08:15 90 20 116/61 (79) 95 11/22/19 08:00 40 11/22/19 08:00 86 11/22/19 08:00 20 119/60 Mechanical Ventilator 40 11/22/19 08:00 98.6 89 20 119/60 (79) 95 11/22/19 08:00 Mechanical Ventilator Mechanical Ventilator 11/22/19 07:45 89 20 112/69 (83) 97 11/22/19 07:30 91 20 126/60 (82) 96 11/22/19 07:15 91 20 137/87 (104) 96 11/22/19 07:12 98 20 35 11/22/19 07:00 20 127/87 Mechanical Ventilator 40 11/22/19 07:00 92 20 133/61 (85) 95 11/22/19 06:30 101 20 11/22/19 06:07 20 109/57 Mechanical Ventilator 40.0 40 11/22/19 06:06 20 109/56 Mechanical Ventilator 40 11/22/19 06:00 20 109/57 Mechanical Ventilator 40 11/22/19 06:00 78 18 114/46 (68) 94 11/22/19 05:45 78 22 100/59 (73) 95 11/22/19 05:30 81 20 105/53 (70) 95 11/22/19 05:15 89 18 120/61 (80) 96 11/22/19 05:00 90 19 113/55 (74) 95 11/22/19 05:00 20 113/55 Mechanical Ventilator 40 11/22/19 04:45 93 18 109/67 (81) 95 11/22/19 04:30 91 19 101/59 (73) 95 11/22/19 04:15 88 18 110/57 (74) 95 11/22/19 04:00 18 122/62 Mechanical Ventilator 40 11/22/19 04:00 Mechanical Ventilator Mechanical Ventilator 11/22/19 04:00 98.3 94 19 122/62 (82) 96 11/22/19 04:00 40 11/22/19 03:45 99 13 174/98 (123) 97 11/22/19 03:35 24 174/98 Mechanical Ventilator 40 11/22/19 03:34 18 167/80 Mechanical Ventilator 40 11/22/19 03:34 98 18 163/78 (106) 96 11/22/19 03:30 104 16 163/98 (119) 96 11/22/19 03:15 94 12 149/80 (103) 95 11/22/19 03:07 124 11/22/19 03:02 89 9 141/70 (93) 97 11/22/19 03:00 18 141/70 Mechanical Ventilator 40 11/22/19 03:00 90 20 141/70 (93) 96 11/22/19 02:54 101 23 35 11/22/19 02:45 93 18 144/74 (97) 96 11/22/19 02:40 104 18 154/90 (111) 96 11/22/19 02:40 22 154/90 Mechanical Ventilator 40 11/22/19 02:35 98 20 162/90 (114) 98 11/22/19 02:30 100 16 165/95 (118) 97 11/22/19 02:26 95 18 150/73 (98) 96 11/22/19 02:20 95 20 164/81 (108) 98 11/22/19 02:15 95 24 164/81 (108) 98 11/22/19 02:11 24 167/90 Mechanical Ventilator 40 11/22/19 02:10 22 167/90 Mechanical Ventilator 40 11/22/19 02:10 86 22 168/87 (114) 98 11/22/19 02:05 86 18 169/84 (112) 98 11/22/19 02:00 99 22 178/86 (116) 98 11/22/19 02:00 24 178/86 Mechanical Ventilator 40 11/22/19 01:00 18 157/87 Mechanical Ventilator 40 11/22/19 01:00 89 18 173/86 (115) 99 11/22/19 00:00 Mechanical Ventilator Mechanical Ventilator 11/22/19 00:00 18 157/107 Mechanical Ventilator 40 11/22/19 00:00 97.3 99 22 157/107 (124) 99 11/21/19 23:30 103 24 132/87 (102) 97 11/21/19 23:18 92 11/21/19 23:11 87 20 35 11/21/19 23:00 91 20 137/77 (97) 99 11/21/19 23:00 20 137/77 Mechanical Ventilator 40 11/21/19 22:30 87 18 130/64 (86) 96 11/21/19 22:00 97 15 165/82 (109) 98 11/21/19 22:00 15 130/64 Mechanical Ventilator 40.0 11/21/19 21:30 108 15 167/81 (109) 98 11/21/19 21:16 20 125/66 Mechanical Ventilator 40 11/21/19 21:15 99 119/84 11/21/19 21:15 20 161/81 Mechanical Ventilator 40 11/21/19 21:00 84 17 98/54 (69) 99 11/21/19 21:00 17 126/78 Mechanical Ventilator 40 11/21/19 20:30 85 20 125/66 (85) 100 11/21/19 20:00 97.6 89 20 163/85 (111) 98 11/21/19 20:00 40 11/21/19 20:00 20 125/66 Mechanical Ventilator 40 11/21/19 20:00 Mechanical Ventilator Mechanical Ventilator 11/21/19 19:30 85 18 92/74 (80) 98 11/21/19 19:24 73 11/21/19 19:17 98 22 35 11/21/19 19:00 32 105/85 Mechanical Ventilator 40 11/21/19 19:00 91 15 105/85 (92) 99 11/21/19 18:29 99 20 144/82 (102) 100 11/21/19 18:00 106 20 124/88 (100) 100 11/21/19 18:00 15 144/82 Mechanical Ventilator 40 11/21/19 17:30 110 20 148/73 (98) 100 11/21/19 17:00 95 16 123/88 (100) 100 11/21/19 17:00 12 148/73 Mechanical Ventilator 40 11/21/19 16:30 95 15 137/75 (95) 100 11/21/19 16:12 40 11/21/19 16:00 97 11/21/19 16:00 12 136/49 Mechanical Ventilator 40 11/21/19 16:00 Mechanical Ventilator Mechanical Ventilator 11/21/19 16:00 96 18 140/87 (104) 100 11/21/19 15:30 106 18 136/49 (78) 100 11/21/19 15:21 99 21 35 11/21/19 15:00 16 125/74 40 11/21/19 15:00 102 13 125/74 (91) 100 11/21/19 14:30 104 12 151/82 (105) 98 Intake and Output 11/21/19 11/22/19 19:00 07:00 Intake Total 1067.868 ml 1064.497 ml Output Total 430 ml 620 ml Balance 637.868 ml 444.497 ml Free Water 300 ml 230 ml IV Total 287.868 ml 354.497 ml Tube Feeding 480 ml 480 ml Output Urine Total 430 ml 620 ml Laboratory Tests 11/21/19 23:27: POC Whole Blood Glucose [Pending] 11/22/19 05:41: White Blood Count 16.7H, Red Blood Count 3.55L, Hemoglobin 9.4L, Hematocrit 32.0L, Mean Corpuscular Volume 90, Mean Corpuscular Hemoglobin 26.5L, Mean Corpuscular Hemoglobin Concent 29.5L, Red Cell Distribution Width 17.6H, Platelet Count 238, Mean Platelet Volume 6.7, Neutrophils (%) (Auto) , Lymphocytes (%) (Auto) , Monocytes (%) (Auto) , Eosinophils (%) (Auto) , Basophils (%) (Auto) , Differential Total Cells Counted 100, Neutrophils % ( Manual) 97H, Lymphocytes % (Manual) 1L, Monocytes % (Manual) 2, Eosinophils % ( Manual) 0, Basophils % (Manual) 0, Band Neutrophils 0, Platelet Estimate Adequate, Platelet Morphology Normal, Hypochromasia 2+, Anisocytosis 1+, Sodium Level 143, Potassium Level 4.5, Chloride Level 106, Carbon Dioxide Level 33H, Anion Gap 4L, Blood Urea Nitrogen 40H, Creatinine 1.1, Estimat Glomerular Filtration Rate 51.9, Glucose Level 281#H, Calcium Level 8.5, Phosphorus Level 4.2, Magnesium Level 2.1, Total Bilirubin 0.9, Aspartate Amino Transf (AST/SGOT ) 33, Alanine Aminotransferase (ALT/SGPT) 30, Alkaline Phosphatase 208H, Total Protein 6.1L, Albumin 1.9L, Globulin 4.2, Albumin/Globulin Ratio 0.5L 11/22/19 06:11: POC Whole Blood Glucose [Pending] 11/22/19 07:14: Arterial Blood pH 7.407, Arterial Blood Partial Pressure CO2 46.5H, Arterial Blood Partial Pressure O2 69.8L, Arterial Blood HCO3 28.6H, Arterial Blood Oxygen Saturation 92.8L, Arterial Blood Base Excess 3.4H, Steve Test Positive Height (Feet): 5 Height (Inches): 3.00 Weight (Pounds): 310 General Appearance: no apparent distress EENT: other - On ventilator Cardiovascular: tachycardia Respiratory/Chest: decreased breath sounds Abdomen: distended Papa Young MD Nov 22, 2019 14:05
[2019-11-22] MEDS: DOPamine 400mg/250ml 250 ML IV SCH (18:36)
[2019-11-22] MEDS: Norepinephrine 4mg/NS Premix 250 ML IV SCH (19:04)
[2019-11-22] MEDS: Dyna-Hex 2% Top Sol 2oz TOPIC SCH (20:32)
--- NOTE | 2019-11-22 21:45 | General Progress Note ---
Assessment/Plan Status: unchanged Assessment/Plan: Assessment/Plan Problem List: (1) Respiratory failure ICD Codes: J96.90 - Respiratory failure, unspecified, unspecified whether with hypoxia or hypercapnia SNOMED: 662491180 (2) 2019 novel coronavirus disease (COVID-19) ICD Codes: U07.1 - COVID-19 SNOMED: 356455786 (3) Multifocal pneumonia ICD Codes: J18.9 - Pneumonia, unspecified organism SNOMED: 554869650 (4) Afib ICD Codes: I48.91 - Unspecified atrial fibrillation SNOMED: 78071010 (5) CHF (congestive heart failure) ICD Codes: I50.9 - Heart failure, unspecified SNOMED: 71316012 (6) Diabetes ICD Codes: E11.9 - Type 2 diabetes mellitus without complications SNOMED: 15438319 (7) Fluid overload ICD Codes: E87.70 - Fluid overload, unspecified SNOMED: 15289082 (8) Epistaxis ICD Codes: R04.0 - Epistaxis SNOMED: 542795810 (9) dysphagia, plans for trach and PEG Assessment/Plan: fu H&H prn blood transfusion NGTF no residuals iv fluid per nephrology off all laxatives given diarrhea patient off Eliquis will fu Subjective Allergies: Coded Allergies: No Known Allergies (Unverified , 11/06/19) Subjective On vent tolerating TF d/w RN possible trach being considered Objective Last 24 Hour Vital Signs Date Time Temp Pulse Resp B/P (MAP) Pulse Ox O2 Delivery O2 Flow Rate FiO2 11/22/19 20:32 74 144/65 11/22/19 20:00 73 20 114/67 (83) 95 11/22/19 19:45 72 20 115/64 (81) 96 11/22/19 19:36 73 20 35 11/22/19 19:30 74 20 122/58 (79) 95 11/22/19 19:04 128/73 11/22/19 19:00 74 20 128/73 (91) 89 11/22/19 19:00 20 128/73 Mechanical Ventilator 40 11/22/19 18:36 128/73 11/22/19 18:30 75 20 120/73 (89) 100 11/22/19 18:00 20 135/71 Mechanical Ventilator 40 11/22/19 18:00 70 20 135/71 (92) 100 8/2/20 17:30 80 20 86/72 (77) 100 11/22/19 17:00 20 148/72 Mechanical Ventilator 40 11/22/19 17:00 79 20 148/72 (97) 98 11/22/19 16:30 73 20 122/70 (87) 94 11/22/19 16:00 40 11/22/19 16:00 98.6 79 20 113/63 (80) 95 11/22/19 16:00 73 11/22/19 16:00 Mechanical Ventilator Mechanical Ventilator 11/22/19 16:00 20 133/83 Mechanical Ventilator 40 11/22/19 15:34 20 122/64 Mechanical Ventilator 40 11/22/19 15:30 82 20 129/86 (100) 97 11/22/19 15:02 77 20 35 11/22/19 15:00 92 20 133/83 (100) 100 11/22/19 15:00 20 133/83 Mechanical Ventilator 40 11/22/19 14:30 85 20 128/68 (88) 96 11/22/19 14:00 80 20 111/55 (73) 95 11/22/19 14:00 20 111/55 Mechanical Ventilator 40 11/22/19 13:30 87 20 121/65 (83) 96 11/22/19 13:00 89 20 124/66 (85) 96 11/22/19 13:00 20 124/66 Mechanical Ventilator 40 11/22/19 12:00 40 11/22/19 12:00 Mechanical Ventilator Mechanical Ventilator 11/22/19 12:00 75 11/22/19 12:00 99.2 73 20 98/55 (69) 94 11/22/19 11:45 76 20 104/53 (70) 95 11/22/19 11:30 75 20 103/54 (70) 95 11/22/19 11:15 80 20 110/54 (72) 96 11/22/19 11:00 20 124/55 Mechanical Ventilator 40 11/22/19 11:00 82 20 124/55 (78) 95 11/22/19 10:45 84 20 128/63 (84) 95 11/22/19 10:37 72 20 35 11/22/19 10:32 76 20 108/75 (86) 93 11/22/19 10:30 74 20 87/72 (77) 95 11/22/19 10:15 77 20 102/53 (69) 95 11/22/19 10:00 76 20 93/50 (64) 95 11/22/19 10:00 20 93/50 Mechanical Ventilator 40 11/22/19 09:45 75 20 92/55 (67) 95 11/22/19 09:30 75 20 104/58 (73) 95 11/22/19 09:15 87 20 110/56 (74) 95 11/22/19 09:00 90 20 124/66 (85) 95 11/22/19 09:00 20 124/66 Mechanical Ventilator 40 11/22/19 08:45 90 20 128/79 (95) 95 11/22/19 08:31 90 116/61 11/22/19 08:30 88 20 121/68 (85) 95 11/22/19 08:15 90 20 116/61 (79) 95 11/22/19 08:00 40 11/22/19 08:00 86 11/22/19 08:00 20 119/60 Mechanical Ventilator 40 11/22/19 08:00 98.6 89 20 119/60 (79) 95 11/22/19 08:00 Mechanical Ventilator Mechanical Ventilator 11/22/19 07:45 89 20 112/69 (83) 97 11/22/19 07:30 91 20 126/60 (82) 96 11/22/19 07:15 91 20 137/87 (104) 96 11/22/19 07:12 98 20 35 11/22/19 07:00 20 127/87 Mechanical Ventilator 40 11/22/19 07:00 92 20 133/61 (85) 95 11/22/19 06:30 101 20 11/22/19 06:07 20 109/57 Mechanical Ventilator 40.0 40 11/22/19 06:06 20 109/56 Mechanical Ventilator 40 11/22/19 06:00 20 109/57 Mechanical Ventilator 40 11/22/19 06:00 78 18 114/46 (68) 94 11/22/19 05:45 78 22 100/59 (73) 95 11/22/19 05:30 81 20 105/53 (70) 95 11/22/19 05:15 89 18 120/61 (80) 96 11/22/19 05:00 90 19 113/55 (74) 95 11/22/19 05:00 20 113/55 Mechanical Ventilator 40 11/22/19 04:45 93 18 109/67 (81) 95 11/22/19 04:30 91 19 101/59 (73) 95 11/22/19 04:15 88 18 110/57 (74) 95 11/22/19 04:00 18 122/62 Mechanical Ventilator 40 11/22/19 04:00 Mechanical Ventilator Mechanical Ventilator 11/22/19 04:00 98.3 94 19 122/62 (82) 96 11/22/19 04:00 40 11/22/19 03:45 99 13 174/98 (123) 97 11/22/19 03:35 24 174/98 Mechanical Ventilator 40 11/22/19 03:34 18 167/80 Mechanical Ventilator 40 11/22/19 03:34 98 18 163/78 (106) 96 11/22/19 03:30 104 16 163/98 (119) 96 11/22/19 03:15 94 12 149/80 (103) 95 11/22/19 03:07 124 11/22/19 03:02 89 9 141/70 (93) 97 11/22/19 03:00 18 141/70 Mechanical Ventilator 40 11/22/19 03:00 90 20 141/70 (93) 96 11/22/19 02:54 101 23 35 11/22/19 02:45 93 18 144/74 (97) 96 11/22/19 02:40 104 18 154/90 (111) 96 11/22/19 02:40 22 154/90 Mechanical Ventilator 40 11/22/19 02:35 98 20 162/90 (114) 98 11/22/19 02:30 100 16 165/95 (118) 97 11/22/19 02:26 95 18 150/73 (98) 96 11/22/19 02:20 95 20 164/81 (108) 98 11/22/19 02:15 95 24 164/81 (108) 98 11/22/19 02:11 24 167/90 Mechanical Ventilator 40 11/22/19 02:10 22 167/90 Mechanical Ventilator 40 11/22/19 02:10 86 22 168/87 (114) 98 11/22/19 02:05 86 18 169/84 (112) 98 11/22/19 02:00 99 22 178/86 (116) 98 11/22/19 02:00 24 178/86 Mechanical Ventilator 40 11/22/19 01:00 18 157/87 Mechanical Ventilator 40 11/22/19 01:00 89 18 173/86 (115) 99 11/22/19 00:00 Mechanical Ventilator Mechanical Ventilator 11/22/19 00:00 18 157/107 Mechanical Ventilator 40 11/22/19 00:00 97.3 99 22 157/107 (124) 99 11/21/19 23:30 103 24 132/87 (102) 97 11/21/19 23:18 92 11/21/19 23:11 87 20 35 11/21/19 23:00 91 20 137/77 (97) 99 11/21/19 23:00 20 137/77 Mechanical Ventilator 40 11/21/19 22:30 87 18 130/64 (86) 96 11/21/19 22:00 97 15 165/82 (109) 98 11/21/19 22:00 15 130/64 Mechanical Ventilator 40.0 Intake and Output 11/21/19 11/22/19 19:00 07:00 Intake Total 1067.868 ml 1064.497 ml Output Total 430 ml 620 ml Balance 637.868 ml 444.497 ml Free Water 300 ml 230 ml IV Total 287.868 ml 354.497 ml Tube Feeding 480 ml 480 ml Output Urine Total 430 ml 620 ml Laboratory Tests 11/21/19 23:27: POC Whole Blood Glucose [Pending] 11/22/19 05:41: White Blood Count 16.7H, Red Blood Count 3.55L, Hemoglobin 9.4L, Hematocrit 32.0L, Mean Corpuscular Volume 90, Mean Corpuscular Hemoglobin 26.5L, Mean Corpuscular Hemoglobin Concent 29.5L, Red Cell Distribution Width 17.6H, Platelet Count 238, Mean Platelet Volume 6.7, Neutrophils (%) (Auto) , Lymphocytes (%) (Auto) , Monocytes (%) (Auto) , Eosinophils (%) (Auto) , Basophils (%) (Auto) , Differential Total Cells Counted 100, Neutrophils % ( Manual) 97H, Lymphocytes % (Manual) 1L, Monocytes % (Manual) 2, Eosinophils % ( Manual) 0, Basophils % (Manual) 0, Band Neutrophils 0, Platelet Estimate Adequate, Platelet Morphology Normal, Hypochromasia 2+, Anisocytosis 1+, Sodium Level 143, Potassium Level 4.5, Chloride Level 106, Carbon Dioxide Level 33H, Anion Gap 4L, Blood Urea Nitrogen 40H, Creatinine 1.1, Estimat Glomerular Filtration Rate 51.9, Glucose Level 281#H, Calcium Level 8.5, Phosphorus Level 4.2, Magnesium Level 2.1, Total Bilirubin 0.9, Aspartate Amino Transf (AST/SGOT ) 33, Alanine Aminotransferase (ALT/SGPT) 30, Alkaline Phosphatase 208H, Total Protein 6.1L, Albumin 1.9L, Globulin 4.2, Albumin/Globulin Ratio 0.5L 11/22/19 06:11: POC Whole Blood Glucose [Pending] 11/22/19 07:14: Arterial Blood pH 7.407, Arterial Blood Partial Pressure CO2 46.5H, Arterial Blood Partial Pressure O2 69.8L, Arterial Blood HCO3 28.6H, Arterial Blood Oxygen Saturation 92.8L, Arterial Blood Base Excess 3.4H, Steve Test Positive Height (Feet): 5 Height (Inches): 3.00 Weight (Pounds): 310 Objective Patient seen in ICU (+) ETT moving (++) edema Salazar Valiente MD Nov 22, 2019 21:45
[2019-11-23] VITALS (48 sets, daily range): BP systolic 111–181; BP diastolic 52–119
[2019-11-23 06:02] LABS: HEMATOCRIT 36.7 % (37.0-47.0); HEMOGLOBIN 10.8 G/DL (12.0-16.0); MEAN CORPUSCULAR VOLUME 90 FL (80-99); PLATELET COUNT 245 K/UL (150-450); RED CELL DISTRIBUTION WIDTH 17.5 % (11.6-14.8); WHITE BLOOD COUNT 13.9 K/UL (4.8-10.8)
[2019-11-23] MEDS: NovoLOG Insulin Flexpen SUBQ SCH ×4 (06:24→23:59)
--- NOTE | 2019-11-23 06:35 | General Progress Note ---
Assessment/Plan Problem List: (1) Hypoxia ICD Codes: R09.02 - Hypoxemia SNOMED: 300926040 (2) CHF (congestive heart failure) ICD Codes: I50.9 - Heart failure, unspecified SNOMED: 66656116 (3) Diabetes ICD Codes: E11.9 - Type 2 diabetes mellitus without complications SNOMED: 45394460 (4) Fluid overload ICD Codes: E87.70 - Fluid overload, unspecified SNOMED: 45604765 (5) 2019 novel coronavirus disease (COVID-19) ICD Codes: U07.1 - COVID-19 SNOMED: 863434427 Status: unchanged Assessment/Plan: add Levemir 10 units bid continue Novolog sliding scale every 6 hours hypoglycemia protocol in order Subjective ROS Limited/Unobtainable: Yes Allergies: Coded Allergies: No Known Allergies (Unverified , 11/06/19) Subjective events noted glucose values are elevated in 200-300 range still on IVSM 20 mg bid Item Value Date Time Bedside Blood Glucose 316 mg/dl H 11/23/19 0624 Bedside Blood Glucose 277 mg/dl H 11/23/19 0000 Bedside Blood Glucose 272 mg/dl H 11/22/19 1710 Bedside Blood Glucose 336 mg/dl H 11/22/19 1230 Bedside Blood Glucose 277 mg/dl H 11/22/19 0630 Bedside Blood Glucose 276 mg/dl H 11/22/19 0000 Objective Last 24 Hour Vital Signs Date Time Temp Pulse Resp B/P (MAP) Pulse Ox O2 Delivery O2 Flow Rate FiO2 11/23/19 06:00 80 20 135/66 (89) 96 11/23/19 06:00 20 124/70 Mechanical Ventilator 40 11/23/19 05:30 78 20 130/67 (88) 96 11/23/19 05:00 76 20 128/82 (97) 95 11/23/19 05:00 20 130/64 Mechanical Ventilator 40 11/23/19 04:30 74 20 129/63 (85) 94 11/23/19 04:00 98.0 80 20 135/71 (92) 94 11/23/19 04:00 40 11/23/19 04:00 20 129/63 Mechanical Ventilator 40 11/23/19 04:00 80 11/23/19 04:00 Mechanical Ventilator Mechanical Ventilator 11/23/19 03:30 81 12 146/75 (98) 97 11/23/19 03:05 87 20 35 11/23/19 03:00 20 138/68 Mechanical Ventilator 40 11/23/19 03:00 78 7 154/81 (105) 92 11/23/19 03:00 78 7 92 11/23/19 02:30 70 0 119/72 (88) 94 11/23/19 02:00 97.8 71 20 116/52 (73) 96 11/23/19 02:00 20 126/54 Mechanical Ventilator 40 11/23/19 01:30 70 20 111/60 (77) 97 11/23/19 01:00 20 126/58 Mechanical Ventilator 40 11/23/19 01:00 70 20 126/58 (80) 94 11/23/19 00:30 66 20 113/61 (78) 96 11/23/19 00:00 Mechanical Ventilator Mechanical Ventilator 11/23/19 00:00 20 120/54 Mechanical Ventilator 40 11/23/19 00:00 67 20 118/53 (74) 96 11/22/19 23:39 64 20 35 11/22/19 23:30 65 20 117/60 (79) 95 11/22/19 23:15 20 106/58 Mechanical Ventilator 40 11/22/19 23:00 97.7 65 20 106/58 (74) 89 11/22/19 23:00 20 116/58 Mechanical Ventilator 40 11/22/19 22:45 65 20 110/60 (77) 92 11/22/19 22:30 64 0 113/51 (71) 91 11/22/19 22:00 20 100/57 Mechanical Ventilator 40 11/22/19 22:00 65 20 100/57 (71) 95 11/22/19 21:30 74 20 119/64 (82) 97 11/22/19 21:00 20 122/67 Mechanical Ventilator 40 11/22/19 21:00 69 20 122/67 (85) 98 11/22/19 20:32 74 144/65 11/22/19 20:30 72 20 114/67 (83) 98 11/22/19 20:00 73 11/22/19 20:00 73 20 114/67 (83) 95 11/22/19 20:00 40 11/22/19 20:00 Mechanical Ventilator Mechanical Ventilator 11/22/19 20:00 20 114/67 Mechanical Ventilator 40 11/22/19 19:45 72 20 115/64 (81) 96 11/22/19 19:36 73 20 35 11/22/19 19:30 74 20 122/58 (79) 95 11/22/19 19:04 128/73 11/22/19 19:00 74 20 128/73 (91) 89 11/22/19 19:00 20 128/73 Mechanical Ventilator 40 11/22/19 18:36 128/73 11/22/19 18:30 75 20 120/73 (89) 100 11/22/19 18:00 20 135/71 Mechanical Ventilator 40 11/22/19 18:00 70 20 135/71 (92) 100 11/22/19 17:30 80 20 86/72 (77) 100 11/22/19 17:00 20 148/72 Mechanical Ventilator 40 11/22/19 17:00 79 20 148/72 (97) 98 11/22/19 16:30 73 20 122/70 (87) 94 11/22/19 16:00 40 11/22/19 16:00 98.6 79 20 113/63 (80) 95 11/22/19 16:00 73 11/22/19 16:00 Mechanical Ventilator Mechanical Ventilator 11/22/19 16:00 20 133/83 Mechanical Ventilator 40 11/22/19 15:34 20 122/64 Mechanical Ventilator 40 11/22/19 15:30 82 20 129/86 (100) 97 11/22/19 15:02 77 20 35 11/22/19 15:00 92 20 133/83 (100) 100 11/22/19 15:00 20 133/83 Mechanical Ventilator 40 11/22/19 14:30 85 20 128/68 (88) 96 11/22/19 14:00 80 20 111/55 (73) 95 11/22/19 14:00 20 111/55 Mechanical Ventilator 40 11/22/19 13:30 87 20 121/65 (83) 96 11/22/19 13:00 89 20 124/66 (85) 96 11/22/19 13:00 20 124/66 Mechanical Ventilator 40 11/22/19 12:00 40 11/22/19 12:00 Mechanical Ventilator Mechanical Ventilator 11/22/19 12:00 75 11/22/19 12:00 99.2 73 20 98/55 (69) 94 8/2/20 11:45 76 20 104/53 (70) 95 11/22/19 11:30 75 20 103/54 (70) 95 11/22/19 11:15 80 20 110/54 (72) 96 11/22/19 11:00 20 124/55 Mechanical Ventilator 40 11/22/19 11:00 82 20 124/55 (78) 95 11/22/19 10:45 84 20 128/63 (84) 95 11/22/19 10:37 72 20 35 11/22/19 10:32 76 20 108/75 (86) 93 11/22/19 10:30 74 20 87/72 (77) 95 11/22/19 10:15 77 20 102/53 (69) 95 11/22/19 10:00 76 20 93/50 (64) 95 11/22/19 10:00 20 93/50 Mechanical Ventilator 40 11/22/19 09:45 75 20 92/55 (67) 95 11/22/19 09:30 75 20 104/58 (73) 95 11/22/19 09:15 87 20 110/56 (74) 95 11/22/19 09:00 90 20 124/66 (85) 95 11/22/19 09:00 20 124/66 Mechanical Ventilator 40 11/22/19 08:45 90 20 128/79 (95) 95 11/22/19 08:31 90 116/61 11/22/19 08:30 88 20 121/68 (85) 95 11/22/19 08:15 90 20 116/61 (79) 95 11/22/19 08:00 40 11/22/19 08:00 86 11/22/19 08:00 20 119/60 Mechanical Ventilator 40 11/22/19 08:00 98.6 89 20 119/60 (79) 95 11/22/19 08:00 Mechanical Ventilator Mechanical Ventilator 11/22/19 07:45 89 20 112/69 (83) 97 11/22/19 07:30 91 20 126/60 (82) 96 11/22/19 07:15 91 20 137/87 (104) 96 11/22/19 07:12 98 20 35 11/22/19 07:00 20 127/87 Mechanical Ventilator 40 11/22/19 07:00 92 20 133/61 (85) 95 Intake and Output 11/22/19 11/23/19 19:00 07:00 Intake Total 925.0 ml 805 ml Output Total 1650 ml 2300 ml Balance -725.0 ml -1495 ml Free Water 10 ml 20 ml IV Total 435.0 ml 385 ml Tube Feeding 480 ml 400 ml Output Urine Total 1650 ml 2300 ml Laboratory Tests 11/22/19 07:14: Arterial Blood pH 7.407, Arterial Blood Partial Pressure CO2 46.5H, Arterial Blood Partial Pressure O2 69.8L, Arterial Blood HCO3 28.6H, Arterial Blood Oxygen Saturation 92.8L, Arterial Blood Base Excess 3.4H, Steve Test Positive 11/23/19 05:17: White Blood Count 13.9H, Red Blood Count 4.10L, Hemoglobin 10.8L, Hematocrit 36.7L, Mean Corpuscular Volume 90, Mean Corpuscular Hemoglobin 26.3L, Mean Corpuscular Hemoglobin Concent 29.4L, Red Cell Distribution Width 17.5H, Platelet Count 245, Mean Platelet Volume 6.9, Neutrophils (%) (Auto) , Lymphocytes (%) (Auto) , Monocytes (%) (Auto) , Eosinophils (%) (Auto) , Basophils (%) (Auto) , Neutrophils % (Manual) [Pending], Lymphocytes % (Manual) [Pending], Platelet Estimate [Pending], Platelet Morphology [Pending], Sodium Level [Pending], Potassium Level [Pending], Chloride Level [Pending], Carbon Dioxide Level [Pending], Blood Urea Nitrogen [Pending], Creatinine [Pending], Estimat Glomerular Filtration Rate [Pending], Glucose Level [Pending], Calcium Level [Pending] 11/23/19 05:38: POC Whole Blood Glucose 316H Height (Feet): 5 Height (Inches): 3.00 Weight (Pounds): 310 Objective Current Medications Medications (Trade) Dose Ordered Sig/Robyn Route PRN Reason Start Time Stop Time Status Last Admin Dose Admin Acetaminophen (Tylenol) 650 mg Q6H PRN NG Temp >100.5 11/12/19 00:15 12/12/19 00:14 11/16/19 09:02 Amiodarone HCl (Cordarone) 400 mg EVERY 12 HOURS ORAL 11/20/19 09:30 02/18/20 09:29 11/22/19 20:32 Chlorhexidine Gluconate (Miya-Hex 2%) 1 applic DAILY@2000 TOPIC 11/08/19 21:30 02/06/20 21:29 11/22/19 20:32 Clonidine HCl (Catapres Tab) 0.1 mg Q4H PRN NG For High Blood Pressure 11/13/19 17:00 02/09/20 10:59 Dextrose (Dextrose 50%) 25 ml Q30M PRN IV Hypoglycemia 11/08/19 12:30 02/05/20 02:59 11/18/19 23:54 Dextrose (Dextrose 50%) 50 ml Q30M PRN IV Hypoglycemia 11/08/19 12:30 02/05/20 02:59 Dopamine HCl/ Dextrose 250 ml @ 0 mls/hr Q24H IV 11/19/19 18:36 02/17/20 18:35 11/19/19 18:41 Famotidine (Pepcid I.v.) 20 mg Q12HR IVP 11/08/19 15:30 12/08/19 15:29 11/22/19 20:33 Fentanyl Citrate 250 ml @ 0 mls/hr Q24H IV 11/19/19 12:15 02/17/20 12:14 11/22/19 23:15 Folic Acid (Folate) 2 mg DAILY GT 11/15/19 09:00 12/15/19 08:59 11/22/19 08:32 Furosemide 100 mg/ Dextrose 100 ml @ 5 mls/hr Q20H IV 11/21/19 13:00 12/21/19 12:59 11/23/19 06:23 Insulin Aspart (NovoLOG) EVERY 6 HOURS SUBQ 11/15/19 12:00 02/11/20 20:59 11/23/19 06:24 Lorazepam (Ativan 2mg/ml 1ml) 1 mg Q4H PRN IV For Anxiety 11/21/19 11:00 11/28/19 10:59 11/22/19 03:46 Methylprednisolone Sodium Succinate (Solu-MEDROL) 20 mg EVERY 12 HOURS IVP 11/21/19 21:00 02/18/20 20:59 11/22/19 20:32 Metoprolol Tartrate (Lopressor) 25 mg Q12HR ORAL 11/20/19 09:30 02/18/20 09:29 11/22/19 20:32 Norepinephrine Bitartrate 250 ml @ 0 mls/hr Q24H IV 11/19/19 19:49 02/17/20 19:48 Alphonse Ojeda MD Nov 23, 2019 06:35
[2019-11-23 06:57] LABS: ANION GAP 7 mmol/L (5-15); BLOOD UREA NITROGEN 45 mg/dL (7-18); CALCIUM 8.7 MG/DL (8.5-10.1); CARBON DIOXIDE 33 MMOL/L (21-32); CHLORIDE 106 MMOL/L (98-107); POTASSIUM 4.2 MMOL/L (3.5-5.1); SODIUM 146 MMOL/L (136-145)
[2019-11-23] MEDS: fentaNYL 2500mcg/NS 250ml 250 ML IV SCH ×2 (07:05→17:10)
[2019-11-23] MEDS: Acetaminophen 650mg/20.3ml NG PRN (07:58)
--- NOTE | 2019-11-23 08:00 | General Progress Note ---
Assessment/Plan Problem List: (1) Respiratory failure ICD Codes: J96.90 - Respiratory failure, unspecified, unspecified whether with hypoxia or hypercapnia SNOMED: 408339645 (2) 2019 novel coronavirus disease (COVID-19) ICD Codes: U07.1 - COVID-19 SNOMED: 210495694 (3) Multifocal pneumonia ICD Codes: J18.9 - Pneumonia, unspecified organism SNOMED: 627689196 (4) Afib ICD Codes: I48.91 - Unspecified atrial fibrillation SNOMED: 79129930 (5) CHF (congestive heart failure) ICD Codes: I50.9 - Heart failure, unspecified SNOMED: 49169446 (6) Diabetes ICD Codes: E11.9 - Type 2 diabetes mellitus without complications SNOMED: 10587934 (7) Fluid overload ICD Codes: E87.70 - Fluid overload, unspecified SNOMED: 18436363 (8) Epistaxis ICD Codes: R04.0 - Epistaxis SNOMED: 736941275 Status: unchanged Assessment/Plan: fu H&H prn blood transfusion NGTF may need trach will plan for PEG if gets trach iv fluid per nephrology add colace will fu Subjective ROS Limited/Unobtainable: No Allergies: Coded Allergies: No Known Allergies (Unverified , 11/06/19) Objective Last 24 Hour Vital Signs Date Time Temp Pulse Resp B/P (MAP) Pulse Ox O2 Delivery O2 Flow Rate FiO2 11/23/19 07:25 75 20 35 11/23/19 07:05 20 126/66 Mechanical Ventilator 40 11/23/19 07:00 98.2 77 20 126/66 (86) 95 11/23/19 07:00 20 126/66 Mechanical Ventilator 40 11/23/19 06:30 82 20 11/23/19 06:00 80 20 135/66 (89) 96 11/23/19 06:00 20 124/70 Mechanical Ventilator 40 11/23/19 05:30 78 20 130/67 (88) 96 11/23/19 05:00 76 20 128/82 (97) 95 11/23/19 05:00 20 130/64 Mechanical Ventilator 40 11/23/19 04:30 74 20 129/63 (85) 94 11/23/19 04:00 98.0 80 20 135/71 (92) 94 11/23/19 04:00 40 8/3/20 04:00 20 129/63 Mechanical Ventilator 40 11/23/19 04:00 80 11/23/19 04:00 Mechanical Ventilator Mechanical Ventilator 11/23/19 03:30 81 12 146/75 (98) 97 11/23/19 03:05 87 20 35 11/23/19 03:00 20 138/68 Mechanical Ventilator 40 11/23/19 03:00 78 7 154/81 (105) 92 11/23/19 03:00 78 7 92 11/23/19 02:30 70 0 119/72 (88) 94 11/23/19 02:00 97.8 71 20 116/52 (73) 96 11/23/19 02:00 20 126/54 Mechanical Ventilator 40 11/23/19 01:30 70 20 111/60 (77) 97 11/23/19 01:00 20 126/58 Mechanical Ventilator 40 11/23/19 01:00 70 20 126/58 (80) 94 11/23/19 00:30 66 20 113/61 (78) 96 11/23/19 00:00 Mechanical Ventilator Mechanical Ventilator 11/23/19 00:00 20 120/54 Mechanical Ventilator 40 11/23/19 00:00 67 20 118/53 (74) 96 11/22/19 23:39 64 20 35 11/22/19 23:30 65 20 117/60 (79) 95 11/22/19 23:15 20 106/58 Mechanical Ventilator 40 11/22/19 23:00 97.7 65 20 106/58 (74) 89 11/22/19 23:00 20 116/58 Mechanical Ventilator 40 11/22/19 22:45 65 20 110/60 (77) 92 11/22/19 22:30 64 0 113/51 (71) 91 11/22/19 22:00 20 100/57 Mechanical Ventilator 40 11/22/19 22:00 65 20 100/57 (71) 95 11/22/19 21:30 74 20 119/64 (82) 97 11/22/19 21:00 20 122/67 Mechanical Ventilator 40 11/22/19 21:00 69 20 122/67 (85) 98 11/22/19 20:32 74 144/65 11/22/19 20:30 72 20 114/67 (83) 98 11/22/19 20:00 73 8/2/20 20:00 73 20 114/67 (83) 95 11/22/19 20:00 40 11/22/19 20:00 Mechanical Ventilator Mechanical Ventilator 11/22/19 20:00 20 114/67 Mechanical Ventilator 40 11/22/19 19:45 72 20 115/64 (81) 96 11/22/19 19:36 73 20 35 11/22/19 19:30 74 20 122/58 (79) 95 11/22/19 19:04 128/73 11/22/19 19:00 74 20 128/73 (91) 89 11/22/19 19:00 20 128/73 Mechanical Ventilator 40 11/22/19 18:36 128/73 11/22/19 18:30 75 20 120/73 (89) 100 11/22/19 18:00 20 135/71 Mechanical Ventilator 40 11/22/19 18:00 70 20 135/71 (92) 100 11/22/19 17:30 80 20 86/72 (77) 100 11/22/19 17:00 20 148/72 Mechanical Ventilator 40 11/22/19 17:00 79 20 148/72 (97) 98 11/22/19 16:30 73 20 122/70 (87) 94 11/22/19 16:00 40 11/22/19 16:00 98.6 79 20 113/63 (80) 95 11/22/19 16:00 73 11/22/19 16:00 Mechanical Ventilator Mechanical Ventilator 11/22/19 16:00 20 133/83 Mechanical Ventilator 40 11/22/19 15:34 20 122/64 Mechanical Ventilator 40 11/22/19 15:30 82 20 129/86 (100) 97 11/22/19 15:02 77 20 35 11/22/19 15:00 92 20 133/83 (100) 100 11/22/19 15:00 20 133/83 Mechanical Ventilator 40 11/22/19 14:30 85 20 128/68 (88) 96 11/22/19 14:00 80 20 111/55 (73) 95 11/22/19 14:00 20 111/55 Mechanical Ventilator 40 11/22/19 13:30 87 20 121/65 (83) 96 11/22/19 13:00 89 20 124/66 (85) 96 11/22/19 13:00 20 124/66 Mechanical Ventilator 40 11/22/19 12:00 40 11/22/19 12:00 Mechanical Ventilator Mechanical Ventilator 11/22/19 12:00 75 11/22/19 12:00 99.2 73 20 98/55 (69) 94 11/22/19 11:45 76 20 104/53 (70) 95 11/22/19 11:30 75 20 103/54 (70) 95 11/22/19 11:15 80 20 110/54 (72) 96 11/22/19 11:00 20 124/55 Mechanical Ventilator 40 11/22/19 11:00 82 20 124/55 (78) 95 11/22/19 10:45 84 20 128/63 (84) 95 11/22/19 10:37 72 20 35 11/22/19 10:32 76 20 108/75 (86) 93 11/22/19 10:30 74 20 87/72 (77) 95 11/22/19 10:15 77 20 102/53 (69) 95 11/22/19 10:00 76 20 93/50 (64) 95 11/22/19 10:00 20 93/50 Mechanical Ventilator 40 11/22/19 09:45 75 20 92/55 (67) 95 11/22/19 09:30 75 20 104/58 (73) 95 11/22/19 09:15 87 20 110/56 (74) 95 11/22/19 09:00 90 20 124/66 (85) 95 11/22/19 09:00 20 124/66 Mechanical Ventilator 40 11/22/19 08:45 90 20 128/79 (95) 95 11/22/19 08:31 90 116/61 11/22/19 08:30 88 20 121/68 (85) 95 11/22/19 08:15 90 20 116/61 (79) 95 11/22/19 08:00 40 11/22/19 08:00 86 11/22/19 08:00 20 119/60 Mechanical Ventilator 40 11/22/19 08:00 98.6 89 20 119/60 (79) 95 11/22/19 08:00 Mechanical Ventilator Mechanical Ventilator Intake and Output 11/22/19 11/23/19 19:00 07:00 Intake Total 925.0 ml 878.08 ml Output Total 1650 ml 2450 ml Balance -725.0 ml -1571.92 ml Free Water 10 ml 20 ml IV Total 435.0 ml 418.08 ml Tube Feeding 480 ml 440 ml Output Urine Total 1650 ml 2450 ml Laboratory Tests 11/23/19 05:17: White Blood Count 13.9H, Red Blood Count 4.10L, Hemoglobin 10.8L, Hematocrit 36.7L, Mean Corpuscular Volume 90, Mean Corpuscular Hemoglobin 26.3L, Mean Corpuscular Hemoglobin Concent 29.4L, Red Cell Distribution Width 17.5H, Platelet Count 245, Mean Platelet Volume 6.9, Neutrophils (%) (Auto) , Lymphocytes (%) (Auto) , Monocytes (%) (Auto) , Eosinophils (%) (Auto) , Basophils (%) (Auto) , Differential Total Cells Counted 100, Neutrophils % ( Manual) 97H, Lymphocytes % (Manual) 2L, Monocytes % (Manual) 1, Eosinophils % ( Manual) 0, Basophils % (Manual) 0, Band Neutrophils 0, Nucleated Red Blood Cells 1, Platelet Estimate Adequate, Platelet Morphology Normal, Hypochromasia 1 +, Anisocytosis 1+, Sodium Level 146H, Potassium Level 4.2, Chloride Level 106, Carbon Dioxide Level 33H, Anion Gap 7, Blood Urea Nitrogen 45H, Creatinine 1.0, Estimat Glomerular Filtration Rate 58.0, Glucose Level 321H, Calcium Level 8.7 11/23/19 05:38: POC Whole Blood Glucose 316H Height (Feet): 5 Height (Inches): 3.00 Weight (Pounds): 337 General Appearance: lethargic EENT: normal ENT inspection Neck: supple Cardiovascular: normal rate Respiratory/Chest: decreased breath sounds Abdomen: normal bowel sounds, non tender, soft Extremities: non-tender Case Paetl MD Nov 23, 2019 08:00
[2019-11-23] MEDS: Levemir Flexpen SUBQ SCH ×2 (08:01→17:01)
[2019-11-23] MEDS: Solu-MEDROL 40mg Inj IVP SCH ×2 (08:01→20:36)
[2019-11-23] MEDS: Amiodarone 200mg tab ORAL SCH ×2 (08:01→20:36)
[2019-11-23] MEDS: Docusate 100mg/10ml Liq NG SCH ×2 (08:08→17:09)
--- NOTE | 2019-11-23 09:34 | Cardiac Electrophysiology PN ---
Assessment/Plan Assessment/Plan 1. Paroxysmal atrial fibrillation. On metoprolol 25 q 12 and Amiodarone 400 q 12 hr. Off Eliquis in view of hematuria and black stool EF 55% on echo. 2. S/P Shock. Off pressors. Tolerating Lopressor 25 bid 3. COVID positive pneumonia. 4. Diabetes, on insulin. 5. Respiratory failure on the Vent.May need Tracheostomy 6. S/P Massive nasal bleed. 7. Severe LE edema on Lasix drip 5mg/hr DW DUMPER Subjective Subjective In ICU on the vent with 35% Fio2. On Lasix drip 5mg/hr for severe LE edema. In atrial fib rate controlled on Lopressor 25 bid. Objective Last 24 Hour Vital Signs Date Time Temp Pulse Resp B/P (MAP) Pulse Ox O2 Delivery O2 Flow Rate FiO2 11/23/19 08:02 75 133/77 11/23/19 07:25 75 20 35 11/23/19 07:05 20 126/66 Mechanical Ventilator 40 11/23/19 07:00 98.2 77 20 126/66 (86) 95 11/23/19 07:00 20 126/66 Mechanical Ventilator 40 11/23/19 06:30 82 20 11/23/19 06:00 80 20 135/66 (89) 96 11/23/19 06:00 20 124/70 Mechanical Ventilator 40 11/23/19 05:30 78 20 130/67 (88) 96 11/23/19 05:00 76 20 128/82 (97) 95 11/23/19 05:00 20 130/64 Mechanical Ventilator 40 11/23/19 04:30 74 20 129/63 (85) 94 11/23/19 04:00 98.0 80 20 135/71 (92) 94 11/23/19 04:00 40 11/23/19 04:00 20 129/63 Mechanical Ventilator 40 11/23/19 04:00 80 11/23/19 04:00 Mechanical Ventilator Mechanical Ventilator 11/23/19 03:30 81 12 146/75 (98) 97 11/23/19 03:05 87 20 35 11/23/19 03:00 20 138/68 Mechanical Ventilator 40 11/23/19 03:00 78 7 154/81 (105) 92 11/23/19 03:00 78 7 92 8/3/20 02:30 70 0 119/72 (88) 94 11/23/19 02:00 97.8 71 20 116/52 (73) 96 11/23/19 02:00 20 126/54 Mechanical Ventilator 40 11/23/19 01:30 70 20 111/60 (77) 97 11/23/19 01:00 20 126/58 Mechanical Ventilator 40 11/23/19 01:00 70 20 126/58 (80) 94 11/23/19 00:30 66 20 113/61 (78) 96 11/23/19 00:00 Mechanical Ventilator Mechanical Ventilator 11/23/19 00:00 20 120/54 Mechanical Ventilator 40 11/23/19 00:00 67 20 118/53 (74) 96 11/22/19 23:39 64 20 35 11/22/19 23:30 65 20 117/60 (79) 95 11/22/19 23:15 20 106/58 Mechanical Ventilator 40 11/22/19 23:00 97.7 65 20 106/58 (74) 89 11/22/19 23:00 20 116/58 Mechanical Ventilator 40 11/22/19 22:45 65 20 110/60 (77) 92 11/22/19 22:30 64 0 113/51 (71) 91 11/22/19 22:00 20 100/57 Mechanical Ventilator 40 11/22/19 22:00 65 20 100/57 (71) 95 11/22/19 21:30 74 20 119/64 (82) 97 11/22/19 21:00 20 122/67 Mechanical Ventilator 40 11/22/19 21:00 69 20 122/67 (85) 98 11/22/19 20:32 74 144/65 11/22/19 20:30 72 20 114/67 (83) 98 11/22/19 20:00 73 11/22/19 20:00 73 20 114/67 (83) 95 11/22/19 20:00 40 11/22/19 20:00 Mechanical Ventilator Mechanical Ventilator 11/22/19 20:00 20 114/67 Mechanical Ventilator 40 11/22/19 19:45 72 20 115/64 (81) 96 11/22/19 19:36 73 20 35 11/22/19 19:30 74 20 122/58 (79) 95 11/22/19 19:04 128/73 11/22/19 19:00 74 20 128/73 (91) 89 11/22/19 19:00 20 128/73 Mechanical Ventilator 40 11/22/19 18:36 128/73 11/22/19 18:30 75 20 120/73 (89) 100 11/22/19 18:00 20 135/71 Mechanical Ventilator 40 11/22/19 18:00 70 20 135/71 (92) 100 11/22/19 17:30 80 20 86/72 (77) 100 11/22/19 17:00 20 148/72 Mechanical Ventilator 40 11/22/19 17:00 79 20 148/72 (97) 98 11/22/19 16:30 73 20 122/70 (87) 94 11/22/19 16:00 40 11/22/19 16:00 98.6 79 20 113/63 (80) 95 11/22/19 16:00 73 11/22/19 16:00 Mechanical Ventilator Mechanical Ventilator 11/22/19 16:00 20 133/83 Mechanical Ventilator 40 11/22/19 15:34 20 122/64 Mechanical Ventilator 40 11/22/19 15:30 82 20 129/86 (100) 97 11/22/19 15:02 77 20 35 11/22/19 15:00 92 20 133/83 (100) 100 11/22/19 15:00 20 133/83 Mechanical Ventilator 40 11/22/19 14:30 85 20 128/68 (88) 96 11/22/19 14:00 80 20 111/55 (73) 95 11/22/19 14:00 20 111/55 Mechanical Ventilator 40 11/22/19 13:30 87 20 121/65 (83) 96 11/22/19 13:00 89 20 124/66 (85) 96 11/22/19 13:00 20 124/66 Mechanical Ventilator 40 11/22/19 12:00 40 11/22/19 12:00 Mechanical Ventilator Mechanical Ventilator 11/22/19 12:00 75 11/22/19 12:00 99.2 73 20 98/55 (69) 94 11/22/19 11:45 76 20 104/53 (70) 95 11/22/19 11:30 75 20 103/54 (70) 95 11/22/19 11:15 80 20 110/54 (72) 96 11/22/19 11:00 20 124/55 Mechanical Ventilator 40 11/22/19 11:00 82 20 124/55 (78) 95 11/22/19 10:45 84 20 128/63 (84) 95 11/22/19 10:37 72 20 35 11/22/19 10:32 76 20 108/75 (86) 93 11/22/19 10:30 74 20 87/72 (77) 95 11/22/19 10:15 77 20 102/53 (69) 95 11/22/19 10:00 76 20 93/50 (64) 95 11/22/19 10:00 20 93/50 Mechanical Ventilator 40 11/22/19 09:45 75 20 92/55 (67) 95 Intake and Output 11/22/19 11/23/19 19:00 07:00 Intake Total 925.0 ml 878.08 ml Output Total 1650 ml 2450 ml Balance -725.0 ml -1571.92 ml Free Water 10 ml 20 ml IV Total 435.0 ml 418.08 ml Tube Feeding 480 ml 440 ml Output Urine Total 1650 ml 2450 ml Laboratory Tests Test 11/23/19 05:17 11/23/19 05:38 White Blood Count 13.9 K/UL (4.8-10.8) H Red Blood Count 4.10 M/UL (4.20-5.40) L Hemoglobin 10.8 G/DL (12.0-16.0) L Hematocrit 36.7 % (37.0-47.0) L Mean Corpuscular Volume 90 FL (80-99) Mean Corpuscular Hemoglobin 26.3 PG (27.0-31.0) L Mean Corpuscular Hemoglobin Concent 29.4 G/DL (32.0-36.0) L Red Cell Distribution Width 17.5 % (11.6-14.8) H Platelet Count 245 K/UL (150-450) Mean Platelet Volume 6.9 FL (6.5-10.1) Neutrophils (%) (Auto) % (45.0-75.0) Lymphocytes (%) (Auto) % (20.0-45.0) Monocytes (%) (Auto) % (1.0-10.0) Eosinophils (%) (Auto) % (0.0-3.0) Basophils (%) (Auto) % (0.0-2.0) Differential Total Cells Counted 100 Neutrophils % (Manual) 97 % (45-75) H Lymphocytes % (Manual) 2 % (20-45) L Monocytes % (Manual) 1 % (1-10) Eosinophils % (Manual) 0 % (0-3) Basophils % (Manual) 0 % (0-2) Band Neutrophils 0 % (0-8) Nucleated Red Blood Cells 1 /100 WBC Platelet Estimate Adequate Platelet Morphology Normal Hypochromasia 1+ Anisocytosis 1+ Sodium Level 146 MMOL/L (136-145) H Potassium Level 4.2 MMOL/L (3.5-5.1) Chloride Level 106 MMOL/L (98-107) Carbon Dioxide Level 33 MMOL/L (21-32) H Anion Gap 7 mmol/L (5-15) Blood Urea Nitrogen 45 mg/dL (7-18) H Creatinine 1.0 MG/DL (0.55-1.30) Estimat Glomerular Filtration Rate 58.0 mL/min (>60) Glucose Level 321 MG/DL (74-106) H Calcium Level 8.7 MG/DL (8.5-10.1) POC Whole Blood Glucose 316 MG/DL (74-106) H Microbiology Date/Time Source Procedure Growth Status 11/22/19 15:00 Sputum Gram Stain - Final Resulted 11/22/19 15:00 Sputum Sputum Culture Pending Resulted Objective HEAD AND NECK: No JVD. OG tube Orally intubated LUNGS: Coarse rhonchi. CARDIOVASCULAR: Irregularly irregular. S1 and S2 with no gallop or murmur. ABDOMEN: Soft. EXTREMITIES: 2 plus pitting edema. Gabe Snell MD Nov 23, 2019 09:34
--- NOTE | 2019-11-23 09:49 | Pulmonology Progress Note ---
Subjective ROS Limited/Unobtainable: No Interval Events: Re-intubated on 11/19/19; Constitutional: Denies: fever HEENT: Repors: no symptoms Respiratory: Reports: dry cough, shortness of breath Cardiovascular: Reports: no symptoms Gastrointestinal/Abdominal: Reports: no symptoms Allergies: Coded Allergies: No Known Allergies (Unverified , 11/06/19) All Systems: reviewed and negative except above Objective Last 24 Hour Vital Signs Date Time Temp Pulse Resp B/P (MAP) Pulse Ox O2 Delivery O2 Flow Rate FiO2 11/23/19 08:02 75 133/77 11/23/19 07:25 75 20 35 11/23/19 07:05 20 126/66 Mechanical Ventilator 40 11/23/19 07:00 98.2 77 20 126/66 (86) 95 11/23/19 07:00 20 126/66 Mechanical Ventilator 40 11/23/19 06:30 82 20 11/23/19 06:00 80 20 135/66 (89) 96 11/23/19 06:00 20 124/70 Mechanical Ventilator 40 11/23/19 05:30 78 20 130/67 (88) 96 11/23/19 05:00 76 20 128/82 (97) 95 11/23/19 05:00 20 130/64 Mechanical Ventilator 40 11/23/19 04:30 74 20 129/63 (85) 94 11/23/19 04:00 98.0 80 20 135/71 (92) 94 11/23/19 04:00 40 11/23/19 04:00 20 129/63 Mechanical Ventilator 40 11/23/19 04:00 80 11/23/19 04:00 Mechanical Ventilator Mechanical Ventilator 11/23/19 03:30 81 12 146/75 (98) 97 11/23/19 03:05 87 20 35 11/23/19 03:00 20 138/68 Mechanical Ventilator 40 11/23/19 03:00 78 7 154/81 (105) 92 11/23/19 03:00 78 7 92 11/23/19 02:30 70 0 119/72 (88) 94 11/23/19 02:00 97.8 71 20 116/52 (73) 96 11/23/19 02:00 20 126/54 Mechanical Ventilator 40 11/23/19 01:30 70 20 111/60 (77) 97 11/23/19 01:00 20 126/58 Mechanical Ventilator 40 11/23/19 01:00 70 20 126/58 (80) 94 11/23/19 00:30 66 20 113/61 (78) 96 11/23/19 00:00 Mechanical Ventilator Mechanical Ventilator 11/23/19 00:00 20 120/54 Mechanical Ventilator 40 11/23/19 00:00 67 20 118/53 (74) 96 11/22/19 23:39 64 20 35 11/22/19 23:30 65 20 117/60 (79) 95 11/22/19 23:15 20 106/58 Mechanical Ventilator 40 11/22/19 23:00 97.7 65 20 106/58 (74) 89 11/22/19 23:00 20 116/58 Mechanical Ventilator 40 11/22/19 22:45 65 20 110/60 (77) 92 11/22/19 22:30 64 0 113/51 (71) 91 11/22/19 22:00 20 100/57 Mechanical Ventilator 40 11/22/19 22:00 65 20 100/57 (71) 95 11/22/19 21:30 74 20 119/64 (82) 97 11/22/19 21:00 20 122/67 Mechanical Ventilator 40 11/22/19 21:00 69 20 122/67 (85) 98 11/22/19 20:32 74 144/65 11/22/19 20:30 72 20 114/67 (83) 98 11/22/19 20:00 73 11/22/19 20:00 73 20 114/67 (83) 95 11/22/19 20:00 40 11/22/19 20:00 Mechanical Ventilator Mechanical Ventilator 11/22/19 20:00 20 114/67 Mechanical Ventilator 40 11/22/19 19:45 72 20 115/64 (81) 96 11/22/19 19:36 73 20 35 11/22/19 19:30 74 20 122/58 (79) 95 11/22/19 19:04 128/73 11/22/19 19:00 74 20 128/73 (91) 89 11/22/19 19:00 20 128/73 Mechanical Ventilator 40 11/22/19 18:36 128/73 11/22/19 18:30 75 20 120/73 (89) 100 11/22/19 18:00 20 135/71 Mechanical Ventilator 40 11/22/19 18:00 70 20 135/71 (92) 100 11/22/19 17:30 80 20 86/72 (77) 100 11/22/19 17:00 20 148/72 Mechanical Ventilator 40 11/22/19 17:00 79 20 148/72 (97) 98 11/22/19 16:30 73 20 122/70 (87) 94 11/22/19 16:00 40 11/22/19 16:00 98.6 79 20 113/63 (80) 95 11/22/19 16:00 73 11/22/19 16:00 Mechanical Ventilator Mechanical Ventilator 11/22/19 16:00 20 133/83 Mechanical Ventilator 40 11/22/19 15:34 20 122/64 Mechanical Ventilator 40 11/22/19 15:30 82 20 129/86 (100) 97 11/22/19 15:02 77 20 35 11/22/19 15:00 92 20 133/83 (100) 100 11/22/19 15:00 20 133/83 Mechanical Ventilator 40 11/22/19 14:30 85 20 128/68 (88) 96 11/22/19 14:00 80 20 111/55 (73) 95 11/22/19 14:00 20 111/55 Mechanical Ventilator 40 11/22/19 13:30 87 20 121/65 (83) 96 11/22/19 13:00 89 20 124/66 (85) 96 11/22/19 13:00 20 124/66 Mechanical Ventilator 40 11/22/19 12:00 40 11/22/19 12:00 Mechanical Ventilator Mechanical Ventilator 11/22/19 12:00 75 11/22/19 12:00 99.2 73 20 98/55 (69) 94 11/22/19 11:45 76 20 104/53 (70) 95 11/22/19 11:30 75 20 103/54 (70) 95 11/22/19 11:15 80 20 110/54 (72) 96 11/22/19 11:00 20 124/55 Mechanical Ventilator 40 11/22/19 11:00 82 20 124/55 (78) 95 11/22/19 10:45 84 20 128/63 (84) 95 11/22/19 10:37 72 20 35 11/22/19 10:32 76 20 108/75 (86) 93 11/22/19 10:30 74 20 87/72 (77) 95 11/22/19 10:15 77 20 102/53 (69) 95 11/22/19 10:00 76 20 93/50 (64) 95 11/22/19 10:00 20 93/50 Mechanical Ventilator 40 Intake and Output 11/22/19 11/23/19 19:00 07:00 Intake Total 925.0 ml 878.08 ml Output Total 1650 ml 2450 ml Balance -725.0 ml -1571.92 ml Free Water 10 ml 20 ml IV Total 435.0 ml 418.08 ml Tube Feeding 480 ml 440 ml Output Urine Total 1650 ml 2450 ml General Appearance: no acute distress HEENT: normocephalic Respiratory: decreased breath sounds Cardiovascular: normal peripheral pulses Abdomen: normal bowel sounds Extremities: no cyanosis Microbiology Date/Time Source Procedure Growth Status 11/22/19 15:00 Sputum Gram Stain - Final Resulted 11/22/19 15:00 Sputum Sputum Culture Pending Resulted Laboratory Tests 11/23/19 05:17: White Blood Count 13.9H, Red Blood Count 4.10L, Hemoglobin 10.8L, Hematocrit 36.7L, Mean Corpuscular Volume 90, Mean Corpuscular Hemoglobin 26.3L, Mean Corpuscular Hemoglobin Concent 29.4L, Red Cell Distribution Width 17.5H, Platelet Count 245, Mean Platelet Volume 6.9, Neutrophils (%) (Auto) , Lymphocytes (%) (Auto) , Monocytes (%) (Auto) , Eosinophils (%) (Auto) , Basophils (%) (Auto) , Differential Total Cells Counted 100, Neutrophils % ( Manual) 97H, Lymphocytes % (Manual) 2L, Monocytes % (Manual) 1, Eosinophils % ( Manual) 0, Basophils % (Manual) 0, Band Neutrophils 0, Nucleated Red Blood Cells 1, Platelet Estimate Adequate, Platelet Morphology Normal, Hypochromasia 1 +, Anisocytosis 1+, Sodium Level 146H, Potassium Level 4.2, Chloride Level 106, Carbon Dioxide Level 33H, Anion Gap 7, Blood Urea Nitrogen 45H, Creatinine 1.0, Estimat Glomerular Filtration Rate 58.0, Glucose Level 321H, Calcium Level 8.7 11/23/19 05:38: POC Whole Blood Glucose 316H Current Medications Medications (Trade) Dose Ordered Sig/Robyn Route PRN Reason Start Time Stop Time Status Last Admin Dose Admin Acetaminophen (Tylenol) 650 mg Q6H PRN NG Temp >100.5 11/12/19 00:15 12/12/19 00:14 11/23/19 07:58 Amiodarone HCl (Cordarone) 400 mg EVERY 12 HOURS ORAL 11/20/19 09:30 02/18/20 09:29 11/23/19 08:01 Chlorhexidine Gluconate (Miya-Hex 2%) 1 applic DAILY@2000 TOPIC 11/08/19 21:30 02/06/20 21:29 11/22/19 20:32 Clonidine HCl (Catapres Tab) 0.1 mg Q4H PRN NG For High Blood Pressure 11/13/19 17:00 02/09/20 10:59 Dextrose (Dextrose 50%) 25 ml Q30M PRN IV Hypoglycemia 11/23/19 06:45 02/21/20 06:44 Dextrose (Dextrose 50%) 50 ml Q30M PRN IV Hypoglycemia 11/23/19 06:45 02/21/20 06:44 Docusate Sodium (Colace) 100 mg TWICE A DAY NG 11/23/19 09:00 12/23/19 08:59 11/23/19 08:08 Dopamine HCl/ Dextrose 250 ml @ 0 mls/hr Q24H IV 11/19/19 18:36 02/17/20 18:35 11/19/19 18:41 Famotidine (Pepcid I.v.) 20 mg Q12HR IVP 11/08/19 15:30 12/08/19 15:29 11/23/19 08:01 Fentanyl Citrate 250 ml @ 0 mls/hr Q24H IV 11/19/19 12:15 02/17/20 12:14 11/23/19 07:05 Folic Acid (Folate) 2 mg DAILY GT 11/15/19 09:00 12/15/19 08:59 11/23/19 08:01 Furosemide 100 mg/ Dextrose 100 ml @ 5 mls/hr Q20H IV 11/21/19 13:00 12/21/19 12:59 11/23/19 06:23 Insulin Aspart (NovoLOG) EVERY 6 HOURS SUBQ 11/15/19 12:00 02/11/20 20:59 11/23/19 06:24 Insulin Detemir (Levemir) 10 units BID SUBQ 11/23/19 09:00 02/21/20 08:59 11/23/19 08:01 Lorazepam (Ativan 2mg/ml 1ml) 1 mg Q4H PRN IV For Anxiety 11/21/19 11:00 11/28/19 10:59 11/22/19 03:46 Methylprednisolone Sodium Succinate (Solu-MEDROL) 20 mg EVERY 12 HOURS IVP 11/21/19 21:00 02/18/20 20:59 11/23/19 08:01 Metoprolol Tartrate (Lopressor) 25 mg Q12HR ORAL 11/20/19 09:30 02/18/20 09:29 11/23/19 08:02 Norepinephrine Bitartrate 250 ml @ 0 mls/hr Q24H IV 11/19/19 19:49 02/17/20 19:48 Assessment/Plan Assessment/Plan IMPRESSION: 1. COVID-19 pneumonia. 2. Diabetes mellitus and hypertension. 3. Lactic acidemia. 4. Epistaxis 5. Respiratory failure; failed extubation 6. Anasarca DISCUSSION: Careful and close monitoring. Continue medications May need tracheostomy; family agreeable On fentanyl pressors prn Will request new PICC Continue Lasix for anasarca I will follow carefully. Lakeisha Zavaleta Omar Syed MD Nov 23, 2019 09:49
--- NOTE | 2019-11-23 11:15 | Infectious Diseases Prog Note ---
Assessment/Plan Assessment/Plan antibiotics : solumedrol A 1. COVID 19 pneumonia on 40 percent Fi O2, PEEP 5, saturation 96 percent s/p remdesivir s/p ivermectin [id number] 2. respiratory failure 3. leucocytosis likely secondary to steroids 4. diabetes mellitus 5. hypertension 6. obesity P 1. continue solumedrol day 4 2. will follow up cultures 3. continue isolation Subjective ROS Limited/Unobtainable: Yes Allergies: Coded Allergies: No Known Allergies (Unverified , 11/06/19) Objective Last 24 Hour Vital Signs Date Time Temp Pulse Resp B/P (MAP) Pulse Ox O2 Delivery O2 Flow Rate FiO2 11/23/19 10:44 73 14 40 11/23/19 09:52 40 11/23/19 08:02 75 133/77 11/23/19 08:00 40 11/23/19 07:25 75 20 35 11/23/19 07:05 20 126/66 Mechanical Ventilator 40 11/23/19 07:00 98.2 77 20 126/66 (86) 95 11/23/19 07:00 20 126/66 Mechanical Ventilator 40 11/23/19 06:30 82 20 11/23/19 06:00 80 20 135/66 (89) 96 11/23/19 06:00 20 124/70 Mechanical Ventilator 40 11/23/19 05:30 78 20 130/67 (88) 96 11/23/19 05:00 76 20 128/82 (97) 95 11/23/19 05:00 20 130/64 Mechanical Ventilator 40 11/23/19 04:30 74 20 129/63 (85) 94 11/23/19 04:00 98.0 80 20 135/71 (92) 94 11/23/19 04:00 40 11/23/19 04:00 20 129/63 Mechanical Ventilator 40 11/23/19 04:00 80 11/23/19 04:00 Mechanical Ventilator Mechanical Ventilator 11/23/19 03:30 81 12 146/75 (98) 97 11/23/19 03:05 87 20 35 11/23/19 03:00 20 138/68 Mechanical Ventilator 40 11/23/19 03:00 78 7 154/81 (105) 92 11/23/19 03:00 78 7 92 11/23/19 02:30 70 0 119/72 (88) 94 11/23/19 02:00 97.8 71 20 116/52 (73) 96 11/23/19 02:00 20 126/54 Mechanical Ventilator 40 11/23/19 01:30 70 20 111/60 (77) 97 11/23/19 01:00 20 126/58 Mechanical Ventilator 40 11/23/19 01:00 70 20 126/58 (80) 94 11/23/19 00:30 66 20 113/61 (78) 96 11/23/19 00:00 Mechanical Ventilator Mechanical Ventilator 11/23/19 00:00 20 120/54 Mechanical Ventilator 40 11/23/19 00:00 67 20 118/53 (74) 96 11/22/19 23:39 64 20 35 11/22/19 23:30 65 20 117/60 (79) 95 11/22/19 23:15 20 106/58 Mechanical Ventilator 40 11/22/19 23:00 97.7 65 20 106/58 (74) 89 11/22/19 23:00 20 116/58 Mechanical Ventilator 40 11/22/19 22:45 65 20 110/60 (77) 92 11/22/19 22:30 64 0 113/51 (71) 91 11/22/19 22:00 20 100/57 Mechanical Ventilator 40 11/22/19 22:00 65 20 100/57 (71) 95 11/22/19 21:30 74 20 119/64 (82) 97 11/22/19 21:00 20 122/67 Mechanical Ventilator 40 11/22/19 21:00 69 20 122/67 (85) 98 11/22/19 20:32 74 144/65 11/22/19 20:30 72 20 114/67 (83) 98 11/22/19 20:00 73 11/22/19 20:00 73 20 114/67 (83) 95 11/22/19 20:00 40 11/22/19 20:00 Mechanical Ventilator Mechanical Ventilator 11/22/19 20:00 20 114/67 Mechanical Ventilator 40 11/22/19 19:45 72 20 115/64 (81) 96 11/22/19 19:36 73 20 35 11/22/19 19:30 74 20 122/58 (79) 95 11/22/19 19:04 128/73 11/22/19 19:00 74 20 128/73 (91) 89 11/22/19 19:00 20 128/73 Mechanical Ventilator 40 11/22/19 18:36 128/73 11/22/19 18:30 75 20 120/73 (89) 100 11/22/19 18:00 20 135/71 Mechanical Ventilator 40 11/22/19 18:00 70 20 135/71 (92) 100 11/22/19 17:30 80 20 86/72 (77) 100 11/22/19 17:00 20 148/72 Mechanical Ventilator 40 11/22/19 17:00 79 20 148/72 (97) 98 11/22/19 16:30 73 20 122/70 (87) 94 11/22/19 16:00 40 11/22/19 16:00 98.6 79 20 113/63 (80) 95 11/22/19 16:00 73 11/22/19 16:00 Mechanical Ventilator Mechanical Ventilator 11/22/19 16:00 20 133/83 Mechanical Ventilator 40 11/22/19 15:34 20 122/64 Mechanical Ventilator 40 11/22/19 15:30 82 20 129/86 (100) 97 11/22/19 15:02 77 20 35 11/22/19 15:00 92 20 133/83 (100) 100 11/22/19 15:00 20 133/83 Mechanical Ventilator 40 11/22/19 14:30 85 20 128/68 (88) 96 11/22/19 14:00 80 20 111/55 (73) 95 11/22/19 14:00 20 111/55 Mechanical Ventilator 40 11/22/19 13:30 87 20 121/65 (83) 96 11/22/19 13:00 89 20 124/66 (85) 96 11/22/19 13:00 20 124/66 Mechanical Ventilator 40 11/22/19 12:00 40 11/22/19 12:00 Mechanical Ventilator Mechanical Ventilator 11/22/19 12:00 75 11/22/19 12:00 99.2 73 20 98/55 (69) 94 11/22/19 11:45 76 20 104/53 (70) 95 11/22/19 11:30 75 20 103/54 (70) 95 11/22/19 11:15 80 20 110/54 (72) 96 Height (Feet): 5 Height (Inches): 3.00 Weight (Pounds): 337 HEENT: other - intubated Microbiology Date/Time Source Procedure Growth Status 11/22/19 15:00 Sputum Gram Stain - Final Resulted 11/22/19 15:00 Sputum Sputum Culture Pending Resulted Laboratory Tests Test 11/23/19 05:17 11/23/19 05:38 White Blood Count 13.9 K/UL (4.8-10.8) H Red Blood Count 4.10 M/UL (4.20-5.40) L Hemoglobin 10.8 G/DL (12.0-16.0) L Hematocrit 36.7 % (37.0-47.0) L Mean Corpuscular Volume 90 FL (80-99) Mean Corpuscular Hemoglobin 26.3 PG (27.0-31.0) L Mean Corpuscular Hemoglobin Concent 29.4 G/DL (32.0-36.0) L Red Cell Distribution Width 17.5 % (11.6-14.8) H Platelet Count 245 K/UL (150-450) Mean Platelet Volume 6.9 FL (6.5-10.1) Neutrophils (%) (Auto) % (45.0-75.0) Lymphocytes (%) (Auto) % (20.0-45.0) Monocytes (%) (Auto) % (1.0-10.0) Eosinophils (%) (Auto) % (0.0-3.0) Basophils (%) (Auto) % (0.0-2.0) Differential Total Cells Counted 100 Neutrophils % (Manual) 97 % (45-75) H Lymphocytes % (Manual) 2 % (20-45) L Monocytes % (Manual) 1 % (1-10) Eosinophils % (Manual) 0 % (0-3) Basophils % (Manual) 0 % (0-2) Band Neutrophils 0 % (0-8) Nucleated Red Blood Cells 1 /100 WBC Platelet Estimate Adequate Platelet Morphology Normal Hypochromasia 1+ Anisocytosis 1+ Sodium Level 146 MMOL/L (136-145) H Potassium Level 4.2 MMOL/L (3.5-5.1) Chloride Level 106 MMOL/L (98-107) Carbon Dioxide Level 33 MMOL/L (21-32) H Anion Gap 7 mmol/L (5-15) Blood Urea Nitrogen 45 mg/dL (7-18) H Creatinine 1.0 MG/DL (0.55-1.30) Estimat Glomerular Filtration Rate 58.0 mL/min (>60) Glucose Level 321 MG/DL (74-106) H Calcium Level 8.7 MG/DL (8.5-10.1) POC Whole Blood Glucose 316 MG/DL (74-106) H Current Medications Medications (Trade) Dose Ordered Sig/Robyn Route PRN Reason Start Time Stop Time Status Last Admin Dose Admin Acetaminophen (Tylenol) 650 mg Q6H PRN NG Temp >100.5 11/12/19 00:15 12/12/19 00:14 11/23/19 07:58 Amiodarone HCl (Cordarone) 400 mg EVERY 12 HOURS ORAL 11/20/19 09:30 02/18/20 09:29 11/23/19 08:01 Chlorhexidine Gluconate (Miya-Hex 2%) 1 applic DAILY@1999 TOPIC 11/08/19 21:30 02/06/20 21:29 11/22/19 20:32 Clonidine HCl (Catapres Tab) 0.1 mg Q4H PRN NG For High Blood Pressure 11/13/19 17:00 02/09/20 10:59 Dextrose (Dextrose 50%) 25 ml Q30M PRN IV Hypoglycemia 11/23/19 06:45 02/21/20 06:44 Dextrose (Dextrose 50%) 50 ml Q30M PRN IV Hypoglycemia 11/23/19 06:45 02/21/20 06:44 Docusate Sodium (Colace) 100 mg TWICE A DAY NG 11/23/19 09:00 12/23/19 08:59 11/23/19 08:08 Dopamine HCl/ Dextrose 250 ml @ 0 mls/hr Q24H IV 11/19/19 18:36 02/17/20 18:35 11/19/19 18:41 Famotidine (Pepcid I.v.) 20 mg Q12HR IVP 11/08/19 15:30 12/08/19 15:29 11/23/19 08:01 Fentanyl Citrate 250 ml @ 0 mls/hr Q24H IV 11/19/19 12:15 02/17/20 12:14 11/23/19 07:05 Folic Acid (Folate) 2 mg DAILY GT 11/15/19 09:00 12/15/19 08:59 11/23/19 08:01 Furosemide 100 mg/ Dextrose 100 ml @ 5 mls/hr Q20H IV 11/21/19 13:00 12/21/19 12:59 11/23/19 06:23 Insulin Aspart (NovoLOG) EVERY 6 HOURS SUBQ 11/15/19 12:00 02/11/20 20:59 11/23/19 06:24 Insulin Detemir (Levemir) 10 units BID SUBQ 11/23/19 09:00 02/21/20 08:59 11/23/19 08:01 Lorazepam (Ativan 2mg/ml 1ml) 1 mg Q4H PRN IV For Anxiety 11/21/19 11:00 11/28/19 10:59 11/22/19 03:46 Methylprednisolone Sodium Succinate (Solu-MEDROL) 20 mg EVERY 12 HOURS IVP 11/21/19 21:00 02/18/20 20:59 11/23/19 08:01 Metoprolol Tartrate (Lopressor) 25 mg Q12HR ORAL 11/20/19 09:30 02/18/20 09:29 11/23/19 08:02 Norepinephrine Bitartrate 250 ml @ 0 mls/hr Q24H IV 11/19/19 19:49 02/17/20 19:48 Rosette Bowman MD Nov 23, 2019 11:15
--- NOTE | 2019-11-23 12:02 | Nephrology Progress Note ---
Assessment/Plan Problem List: (1) Electrolyte imbalance (2) Diabetes (3) 2019 novel coronavirus disease (COVID-19) (4) Respiratory failure Assessment 1. COVID-19 pneumonia. 2. Diabetes and hyperglycemia 3. Hypertension. 4. Hypoxic respiratory failure 5. Morbid obesity with BMI of 65.5 6. Nasal bleeding 7. Lactic acidosis 8. Hyperkalemia Plan November 22: Renal parameters stable. Medication list reviewed. Continue same management per consultants. November 21: Renal parameters stable. On IV Lasix. Edematous. Will order few doses of albumin 25%. Continue per consultants. November 20: Repeat serum potassium again normal. Renal parameters normal. Continue per consultants. November 19: Repeat serum potassium normal. Renal parameters within normal limit. Continue per consultants. November 18: Levemir stopped since IV fluid and dexamethasone are discontinued and patient blood sugar went down. Renal parameters are stable. Continues to be on ventilator. Previously: Renal parameters stable Weaning is being attempted patient's urine output is low. We will give a trial of albumin and Lasix, As needed Discussed with RN Stop IV to D5W 75 cc an hour Levemir 20 units subcu every 12 hours Kayexalate for high potassium as needed Monitor electrolytes and renal parameters Tight blood sugar control, long-acting insulin as needed Keep the blood pressure in check Per orders Subjective ROS Limited/Unobtainable: Yes Objective Objective Last 24 Hour Vital Signs Date Time Temp Pulse Resp B/P (MAP) Pulse Ox O2 Delivery O2 Flow Rate FiO2 11/23/19 10:44 73 14 40 11/23/19 09:52 40 11/23/19 08:30 98.6 11/23/19 08:02 75 133/77 11/23/19 08:00 40 11/23/19 07:25 75 20 35 11/23/19 07:05 20 126/66 Mechanical Ventilator 40 11/23/19 07:00 98.2 77 20 126/66 (86) 95 11/23/19 07:00 20 126/66 Mechanical Ventilator 40 11/23/19 06:30 82 20 11/23/19 06:00 80 20 135/66 (89) 96 11/23/19 06:00 20 124/70 Mechanical Ventilator 40 11/23/19 05:30 78 20 130/67 (88) 96 11/23/19 05:00 76 20 128/82 (97) 95 11/23/19 05:00 20 130/64 Mechanical Ventilator 40 11/23/19 04:30 74 20 129/63 (85) 94 11/23/19 04:00 98.0 80 20 135/71 (92) 94 11/23/19 04:00 40 11/23/19 04:00 20 129/63 Mechanical Ventilator 40 11/23/19 04:00 80 11/23/19 04:00 Mechanical Ventilator Mechanical Ventilator 11/23/19 03:30 81 12 146/75 (98) 97 11/23/19 03:05 87 20 35 11/23/19 03:00 20 138/68 Mechanical Ventilator 40 11/23/19 03:00 78 7 154/81 (105) 92 11/23/19 03:00 78 7 92 11/23/19 02:30 70 0 119/72 (88) 94 11/23/19 02:00 97.8 71 20 116/52 (73) 96 11/23/19 02:00 20 126/54 Mechanical Ventilator 40 11/23/19 01:30 70 20 111/60 (77) 97 11/23/19 01:00 20 126/58 Mechanical Ventilator 40 11/23/19 01:00 70 20 126/58 (80) 94 11/23/19 00:30 66 20 113/61 (78) 96 11/23/19 00:00 Mechanical Ventilator Mechanical Ventilator 11/23/19 00:00 20 120/54 Mechanical Ventilator 40 11/23/19 00:00 67 20 118/53 (74) 96 11/22/19 23:39 64 20 35 11/22/19 23:30 65 20 117/60 (79) 95 11/22/19 23:15 20 106/58 Mechanical Ventilator 40 11/22/19 23:00 97.7 65 20 106/58 (74) 89 11/22/19 23:00 20 116/58 Mechanical Ventilator 40 11/22/19 22:45 65 20 110/60 (77) 92 11/22/19 22:30 64 0 113/51 (71) 91 11/22/19 22:00 20 100/57 Mechanical Ventilator 40 11/22/19 22:00 65 20 100/57 (71) 95 11/22/19 21:30 74 20 119/64 (82) 97 11/22/19 21:00 20 122/67 Mechanical Ventilator 40 11/22/19 21:00 69 20 122/67 (85) 98 11/22/19 20:32 74 144/65 11/22/19 20:30 72 20 114/67 (83) 98 11/22/19 20:00 73 11/22/19 20:00 73 20 114/67 (83) 95 11/22/19 20:00 40 11/22/19 20:00 Mechanical Ventilator Mechanical Ventilator 11/22/19 20:00 20 114/67 Mechanical Ventilator 40 11/22/19 19:45 72 20 115/64 (81) 96 11/22/19 19:36 73 20 35 11/22/19 19:30 74 20 122/58 (79) 95 11/22/19 19:04 128/73 11/22/19 19:00 74 20 128/73 (91) 89 11/22/19 19:00 20 128/73 Mechanical Ventilator 40 11/22/19 18:36 128/73 11/22/19 18:30 75 20 120/73 (89) 100 11/22/19 18:00 20 135/71 Mechanical Ventilator 40 11/22/19 18:00 70 20 135/71 (92) 100 11/22/19 17:30 80 20 86/72 (77) 100 11/22/19 17:00 20 148/72 Mechanical Ventilator 40 11/22/19 17:00 79 20 148/72 (97) 98 11/22/19 16:30 73 20 122/70 (87) 94 11/22/19 16:00 40 11/22/19 16:00 98.6 79 20 113/63 (80) 95 11/22/19 16:00 73 11/22/19 16:00 Mechanical Ventilator Mechanical Ventilator 11/22/19 16:00 20 133/83 Mechanical Ventilator 40 11/22/19 15:34 20 122/64 Mechanical Ventilator 40 11/22/19 15:30 82 20 129/86 (100) 97 11/22/19 15:02 77 20 35 11/22/19 15:00 92 20 133/83 (100) 100 11/22/19 15:00 20 133/83 Mechanical Ventilator 40 11/22/19 14:30 85 20 128/68 (88) 96 11/22/19 14:00 80 20 111/55 (73) 95 11/22/19 14:00 20 111/55 Mechanical Ventilator 40 11/22/19 13:30 87 20 121/65 (83) 96 11/22/19 13:00 89 20 124/66 (85) 96 11/22/19 13:00 20 124/66 Mechanical Ventilator 40 Intake and Output 11/22/19 11/23/19 19:00 07:00 Intake Total 925.0 ml 878.08 ml Output Total 1650 ml 2450 ml Balance -725.0 ml -1571.92 ml Free Water 10 ml 20 ml IV Total 435.0 ml 418.08 ml Tube Feeding 480 ml 440 ml Output Urine Total 1650 ml 2450 ml Laboratory Tests 11/23/19 05:17: White Blood Count 13.9H, Red Blood Count 4.10L, Hemoglobin 10.8L, Hematocrit 36.7L, Mean Corpuscular Volume 90, Mean Corpuscular Hemoglobin 26.3L, Mean Corpuscular Hemoglobin Concent 29.4L, Red Cell Distribution Width 17.5H, Platelet Count 245, Mean Platelet Volume 6.9, Neutrophils (%) (Auto) , Lymphocytes (%) (Auto) , Monocytes (%) (Auto) , Eosinophils (%) (Auto) , Basophils (%) (Auto) , Differential Total Cells Counted 100, Neutrophils % ( Manual) 97H, Lymphocytes % (Manual) 2L, Monocytes % (Manual) 1, Eosinophils % ( Manual) 0, Basophils % (Manual) 0, Band Neutrophils 0, Nucleated Red Blood Cells 1, Platelet Estimate Adequate, Platelet Morphology Normal, Hypochromasia 1 +, Anisocytosis 1+, Sodium Level 146H, Potassium Level 4.2, Chloride Level 106, Carbon Dioxide Level 33H, Anion Gap 7, Blood Urea Nitrogen 45H, Creatinine 1.0, Estimat Glomerular Filtration Rate 58.0, Glucose Level 321H, Calcium Level 8.7 11/23/19 05:38: POC Whole Blood Glucose 316H Height (Feet): 5 Height (Inches): 3.00 Weight (Pounds): 337 General Appearance: no apparent distress EENT: other - Intubated and on ventilator Cardiovascular: normal rate Respiratory/Chest: decreased breath sounds Abdomen: distended Papa Young MD Nov 23, 2019 12:02
[2019-11-23] MEDS ORDERED: Heparin1,000 units/500ml Premix(Conc:2 units/ml) IV PRN (13:14)
[2019-11-23] MEDS ORDERED: Lidocaine 1% Plain 30 ml INJ PRN (13:14)
--- NOTE | 2019-11-23 14:00 | Surgery Progress Note ---
Surgery Progress Note Subjective Procedure Performed Left femoral triple-lumen catheter removal Additional Comments plan for trach tomorrow discussed with pulm and medical teams family consented Objective Last 24 Hour Vital Signs Date Time Temp Pulse Resp B/P (MAP) Pulse Ox O2 Delivery O2 Flow Rate FiO2 11/23/19 13:30 94 20 164/77 (106) 97 94 11/23/19 13:00 14 144/81 Mechanical Ventilator 40 11/23/19 13:00 88 20 144/81 (102) 99 88 11/23/19 12:30 88 20 159/110 (126) 94 88 11/23/19 12:00 98.6 84 20 145/82 (103) 92 84 11/23/19 12:00 40 11/23/19 12:00 79 11/23/19 12:00 Mechanical Ventilator Mechanical Ventilator 11/23/19 12:00 14 145/82 Mechanical Ventilator 40 11/23/19 11:30 78 20 138/72 (94) 96 78 11/23/19 11:15 79 20 138/83 (101) 98 79 11/23/19 11:00 78 20 138/85 (102) 99 78 11/23/19 11:00 14 138/85 Mechanical Ventilator 40 11/23/19 10:44 73 14 40 11/23/19 10:30 68 20 116/67 (83) 100 68 11/23/19 10:00 75 20 125/69 (87) 100 75 11/23/19 10:00 20 125/69 Mechanical Ventilator 40 11/23/19 09:52 40 11/23/19 09:30 75 20 134/72 (92) 100 75 11/23/19 09:00 71 20 139/88 (105) 83 71 11/23/19 09:00 20 139/88 Mechanical Ventilator 40 11/23/19 08:30 78 20 119/65 (83) 97 78 11/23/19 08:30 98.6 11/23/19 08:02 75 133/77 11/23/19 08:00 40 11/23/19 08:00 75 11/23/19 08:00 99.2 76 20 127/67 (87) 96 76 11/23/19 08:00 16 127/67 Mechanical Ventilator 40 11/23/19 08:00 Mechanical Ventilator Mechanical Ventilator 11/23/19 07:30 83 20 142/71 (94) 97 83 11/23/19 07:25 75 20 35 11/23/19 07:05 20 126/66 Mechanical Ventilator 40 11/23/19 07:00 98.2 77 20 126/66 (86) 95 11/23/19 07:00 20 126/66 Mechanical Ventilator 40 11/23/19 06:30 82 20 11/23/19 06:00 80 20 135/66 (89) 96 11/23/19 06:00 20 124/70 Mechanical Ventilator 40 11/23/19 05:30 78 20 130/67 (88) 96 11/23/19 05:00 76 20 128/82 (97) 95 11/23/19 05:00 20 130/64 Mechanical Ventilator 40 11/23/19 04:30 74 20 129/63 (85) 94 11/23/19 04:00 98.0 80 20 135/71 (92) 94 11/23/19 04:00 40 11/23/19 04:00 20 129/63 Mechanical Ventilator 40 11/23/19 04:00 80 11/23/19 04:00 Mechanical Ventilator Mechanical Ventilator 11/23/19 03:30 81 12 146/75 (98) 97 11/23/19 03:05 87 20 35 11/23/19 03:00 20 138/68 Mechanical Ventilator 40 11/23/19 03:00 78 7 154/81 (105) 92 11/23/19 03:00 78 7 92 11/23/19 02:30 70 0 119/72 (88) 94 11/23/19 02:00 97.8 71 20 116/52 (73) 96 11/23/19 02:00 20 126/54 Mechanical Ventilator 40 11/23/19 01:30 70 20 111/60 (77) 97 11/23/19 01:00 20 126/58 Mechanical Ventilator 40 11/23/19 01:00 70 20 126/58 (80) 94 11/23/19 00:30 66 20 113/61 (78) 96 11/23/19 00:00 Mechanical Ventilator Mechanical Ventilator 11/23/19 00:00 20 120/54 Mechanical Ventilator 40 11/23/19 00:00 67 20 118/53 (74) 96 11/22/19 23:39 64 20 35 11/22/19 23:30 65 20 117/60 (79) 95 11/22/19 23:15 20 106/58 Mechanical Ventilator 40 11/22/19 23:00 97.7 65 20 106/58 (74) 89 11/22/19 23:00 20 116/58 Mechanical Ventilator 40 11/22/19 22:45 65 20 110/60 (77) 92 11/22/19 22:30 64 0 113/51 (71) 91 11/22/19 22:00 20 100/57 Mechanical Ventilator 40 11/22/19 22:00 65 20 100/57 (71) 95 11/22/19 21:30 74 20 119/64 (82) 97 11/22/19 21:00 20 122/67 Mechanical Ventilator 40 11/22/19 21:00 69 20 122/67 (85) 98 11/22/19 20:32 74 144/65 11/22/19 20:30 72 20 114/67 (83) 98 11/22/19 20:00 73 11/22/19 20:00 73 20 114/67 (83) 95 11/22/19 20:00 40 11/22/19 20:00 Mechanical Ventilator Mechanical Ventilator 11/22/19 20:00 20 114/67 Mechanical Ventilator 40 11/22/19 19:45 72 20 115/64 (81) 96 11/22/19 19:36 73 20 35 11/22/19 19:30 74 20 122/58 (79) 95 11/22/19 19:04 128/73 11/22/19 19:00 74 20 128/73 (91) 89 11/22/19 19:00 20 128/73 Mechanical Ventilator 40 11/22/19 18:36 128/73 11/22/19 18:30 75 20 120/73 (89) 100 11/22/19 18:00 20 135/71 Mechanical Ventilator 40 11/22/19 18:00 70 20 135/71 (92) 100 11/22/19 17:30 80 20 86/72 (77) 100 11/22/19 17:00 20 148/72 Mechanical Ventilator 40 11/22/19 17:00 79 20 148/72 (97) 98 11/22/19 16:30 73 20 122/70 (87) 94 11/22/19 16:00 40 11/22/19 16:00 98.6 79 20 113/63 (80) 95 11/22/19 16:00 73 11/22/19 16:00 Mechanical Ventilator Mechanical Ventilator 11/22/19 16:00 20 133/83 Mechanical Ventilator 40 11/22/19 15:34 20 122/64 Mechanical Ventilator 40 11/22/19 15:30 82 20 129/86 (100) 97 11/22/19 15:02 77 20 35 11/22/19 15:00 92 20 133/83 (100) 100 11/22/19 15:00 20 133/83 Mechanical Ventilator 40 11/22/19 14:30 85 20 128/68 (88) 96 11/22/19 14:00 80 20 111/55 (73) 95 11/22/19 14:00 20 111/55 Mechanical Ventilator 40 I&O Intake and Output 11/22/19 11/23/19 19:00 07:00 Intake Total 925.0 ml 878.08 ml Output Total 1650 ml 2450 ml Balance -725.0 ml -1571.92 ml Free Water 10 ml 20 ml IV Total 435.0 ml 418.08 ml Tube Feeding 480 ml 440 ml Output Urine Total 1650 ml 2450 ml Cardiovascular: RSR Respiratory: decreased breath sounds Abdomen: soft, non-tender, present bowel sounds Extremities: edema, no tenderness, no cyanosis Laboratory Tests Test 11/23/19 05:17 11/23/19 05:38 White Blood Count 13.9 K/UL (4.8-10.8) H Red Blood Count 4.10 M/UL (4.20-5.40) L Hemoglobin 10.8 G/DL (12.0-16.0) L Hematocrit 36.7 % (37.0-47.0) L Mean Corpuscular Volume 90 FL (80-99) Mean Corpuscular Hemoglobin 26.3 PG (27.0-31.0) L Mean Corpuscular Hemoglobin Concent 29.4 G/DL (32.0-36.0) L Red Cell Distribution Width 17.5 % (11.6-14.8) H Platelet Count 245 K/UL (150-450) Mean Platelet Volume 6.9 FL (6.5-10.1) Neutrophils (%) (Auto) % (45.0-75.0) Lymphocytes (%) (Auto) % (20.0-45.0) Monocytes (%) (Auto) % (1.0-10.0) Eosinophils (%) (Auto) % (0.0-3.0) Basophils (%) (Auto) % (0.0-2.0) Differential Total Cells Counted 100 Neutrophils % (Manual) 97 % (45-75) H Lymphocytes % (Manual) 2 % (20-45) L Monocytes % (Manual) 1 % (1-10) Eosinophils % (Manual) 0 % (0-3) Basophils % (Manual) 0 % (0-2) Band Neutrophils 0 % (0-8) Nucleated Red Blood Cells 1 /100 WBC Platelet Estimate Adequate Platelet Morphology Normal Hypochromasia 1+ Anisocytosis 1+ Sodium Level 146 MMOL/L (136-145) H Potassium Level 4.2 MMOL/L (3.5-5.1) Chloride Level 106 MMOL/L (98-107) Carbon Dioxide Level 33 MMOL/L (21-32) H Anion Gap 7 mmol/L (5-15) Blood Urea Nitrogen 45 mg/dL (7-18) H Creatinine 1.0 MG/DL (0.55-1.30) Estimat Glomerular Filtration Rate 58.0 mL/min (>60) Glucose Level 321 MG/DL (74-106) H Calcium Level 8.7 MG/DL (8.5-10.1) POC Whole Blood Glucose 316 MG/DL (74-106) H Plan Problems: (1) Weak (2) UTI (urinary tract infection) (3) Hypoxia (4) Epistaxis Assessment & Plan: Severe after taxis left nostril Rhino Rocket placed hemostasis noted over the course 24 hours hemoglobin stable Lovenox been stopped. The balloon of both ports of the Rhino Rocket were deflated today. The rocket itself was not removed and will monitor over the course next 24 hours hemostasis. If so will gently remove and plan for local monitoring. Currently wean ventilator as tolerated. Goals of extubation when possible. deflated balloon 11/08 removed trumpet 11/09 will monitor for bleeding wean vent plan extubation discussed with pulm (5) Fluid overload Assessment & Plan: Continue central venous catheter for now. Will anticipate removal once patient stable for extubation. Thank you for allowing me to participate patient's care picc in line out (6) Diabetes (7) CHF (congestive heart failure) (8) Afib (9) Multifocal pneumonia (10) 2019 novel coronavirus disease (COVID-19) Assessment & Plan: + wean vent extubated failed reintubated consider trach plan trach 11/22 (11) Respiratory failure Ortiz Fleming Nov 23, 2019 14:00
--- NOTE | 2019-11-23 14:00 | Pre-Procedure Note/Attestation ---
Pre-Procedure Note/Attestation Complete Prior to Procedure Procedure Narrative: tracheostomy Indications for Procedure Pre-Operative Diagnosis: Sepsis Respiratory insufficiency Attestation I attest that I discussed the nature of the procedure; its benefits; risks and complications; and alternatives (and the risks and benefits of such alternatives ), prior to the procedure, with the patient (or the patient's legal sales representative womens health). I attest that, if there was a reasonable possibility of needing a blood transfusion, the patient (or the patient's legal sales representative womens health) was given the [facility] standardized written summary, pursuant to the [place] Blood Safety Act ([place] Health and Safety Code # 1645, as amended). I attest that I re-evaluated the patient just prior to the surgery and that there has been no change in the patient's H&P, except as documented below: Ortiz Fleming Nov 23, 2019 14:00
--- NOTE | 2019-11-23 14:36 | Hematology/Onc Progress Note ---
Assessment/Plan Assessment/Plan # Anemia of chronic disease due to underlying chronic medical issues, multifactorial v Gi bleed in this case likely related covid19+++++++++ --> Anemia workup has been ordered, rule out gi bleed --> No evidence of hemolysis is noted, peripheral smear has been reviewed. --> Hgb goal >7. Transfuse prn. --> Epogen or iron at this time is not particularly indicated --> Medications have been reviewed --> low threshold for gi evaluation in case has occult + --> hgb 10-->9.8-->9.2-->9.7-->10.7->10->11->10.2->10.6->9.4->10.8 # Leukocytosis/elevated white blood cell count, unspecified likely related to covid19 --> have reviewed peripheral smear and bandemia/neutrophilia noted --> continue antibiotics if they have been started by ID team zosyn --> on remdesivir, dexamathasone --> monitor for resolution --> wbc 12->11-->11-->13->16-->21-->17-->14 # COVID 19 pneumonia --> on vent --> respiratory failure --> s/p vent reintubation 11/08 --> plan trach 11/23 # Diabetes mellitus --> iss and bs goal <140 # Hypertension --> sbp goal <150 # Dvt ppx scds Appreciate consultation and jimena EL Subjective HEENT: Denies: no symptoms, eye pain, blurred vision, tearing, double vision, ear pain, ear discharge, nose pain, nose congestion, throat pain, throat swelling, mouth pain, mouth swelling, other Cardiovascular: Denies: no symptoms, chest pain, edema, irregular heart rate, lightheadedness, palpitations, syncope, other Respiratory: Denies: no symptoms, cough, shortness of breath, SOB with excertion, SOB at rest, sputum, wheezing, other Allergies: Coded Allergies: No Known Allergies (Unverified , 11/06/19) All Systems: reviewed and negative except above Subjective 11/09 weaning prn, meds reviewed, labs noted, hgb 9.2 11/10 on vent, no bleeding, hgb remains low, dw Rn Jose R in am 11/11 on vent, fluids, ogf tube as well, labs pending in am 11/12 remains altered, no bleeding, labs reviewed, cbc noted 11/13 attempted weaning, but did not do well, no bleeding, hgb 10 11/14 intubated, weaning, on vent, with og, labs noted, abx 11/15 labs noted, no bleedign, weaning protocol, no night sweats, elev wbc, with fevers 11/16 no bleeding, jimena Broussard rn in the am, on vent, weaning but failed 11/17 meds reviewed, no night sweats, jimena rn, no bleeding 11/18 extubated, on nc at this time, no bleeding, meds reviewed 11/19 labs noted, no bleeding, on vent again, weaning 11/21 labs reviewed, hgb 9.4, no hemolysis, very difficult to obtain repeat lab draw in am 11/22 unable to wean vent, labs noted, plan for trach tomorrow, on fentanyl, still edematous Objective Objective Current Medications Medications (Trade) Dose Ordered Sig/Robyn Route PRN Reason Start Time Stop Time Status Last Admin Dose Admin Acetaminophen (Tylenol) 650 mg Q6H PRN NG Temp >100.5 11/12/19 00:15 12/12/19 00:14 11/23/19 07:58 Amiodarone HCl (Cordarone) 400 mg EVERY 12 HOURS ORAL 11/20/19 09:30 02/18/20 09:29 11/23/19 08:01 Chlorhexidine Gluconate (Miya-Hex 2%) 1 applic DAILY@1999 TOPIC 11/08/19 21:30 02/06/20 21:29 11/22/19 20:32 Clonidine HCl (Catapres Tab) 0.1 mg Q4H PRN NG For High Blood Pressure 11/13/19 17:00 02/09/20 10:59 Dextrose (Dextrose 50%) 25 ml Q30M PRN IV Hypoglycemia 11/23/19 06:45 02/21/20 06:44 Dextrose (Dextrose 50%) 50 ml Q30M PRN IV Hypoglycemia 11/23/19 06:45 02/21/20 06:44 Docusate Sodium (Colace) 100 mg TWICE A DAY NG 11/23/19 09:00 12/23/19 08:59 11/23/19 08:08 Dopamine HCl/ Dextrose 250 ml @ 0 mls/hr Q24H IV 11/19/19 18:36 02/17/20 18:35 11/19/19 18:41 Famotidine (Pepcid I.v.) 20 mg Q12HR IVP 11/08/19 15:30 12/08/19 15:29 11/23/19 08:01 Fentanyl Citrate 250 ml @ 0 mls/hr Q24H IV 11/19/19 12:15 02/17/20 12:14 11/23/19 07:05 Folic Acid (Folate) 2 mg DAILY GT 11/15/19 09:00 12/15/19 08:59 11/23/19 08:01 Furosemide 100 mg/ Dextrose 100 ml @ 5 mls/hr Q20H IV 11/21/19 13:00 12/21/19 12:59 11/23/19 06:23 Heparin Sodium/ Sodium Chloride (Heparin 1000 units/500ml Premix) 1,000 unit ONCE PRN IV PICC 11/23/19 13:14 11/24/19 23:59 Insulin Aspart (NovoLOG) EVERY 6 HOURS SUBQ 11/15/19 12:00 02/11/20 20:59 11/23/19 12:21 Insulin Detemir (Levemir) 10 units BID SUBQ 11/23/19 09:00 02/21/20 08:59 11/23/19 08:01 Lidocaine HCl (Xylocaine 1% 30ml) 30 ml ONCE PRN INJ PICC 11/23/19 13:14 11/24/19 23:59 Lorazepam (Ativan 2mg/ml 1ml) 1 mg Q4H PRN IV For Anxiety 11/21/19 11:00 11/28/19 10:59 11/22/19 03:46 Methylprednisolone Sodium Succinate (Solu-MEDROL) 20 mg EVERY 12 HOURS IVP 11/21/19 21:00 02/18/20 20:59 11/23/19 08:01 Metoprolol Tartrate (Lopressor) 25 mg Q12HR ORAL 11/20/19 09:30 02/18/20 09:29 11/23/19 08:02 Norepinephrine Bitartrate 250 ml @ 0 mls/hr Q24H IV 11/19/19 19:49 10/28/20 19:48 Last 24 Hour Vital Signs Date Time Temp Pulse Resp B/P (MAP) Pulse Ox O2 Delivery O2 Flow Rate FiO2 11/23/19 13:30 94 20 164/77 (106) 97 94 11/23/19 13:00 14 144/81 Mechanical Ventilator 40 11/23/19 13:00 88 20 144/81 (102) 99 88 11/23/19 12:30 88 20 159/110 (126) 94 88 11/23/19 12:00 98.6 84 20 145/82 (103) 92 84 11/23/19 12:00 40 11/23/19 12:00 79 11/23/19 12:00 Mechanical Ventilator Mechanical Ventilator 11/23/19 12:00 14 145/82 Mechanical Ventilator 40 11/23/19 11:30 78 20 138/72 (94) 96 78 11/23/19 11:15 79 20 138/83 (101) 98 79 11/23/19 11:00 78 20 138/85 (102) 99 78 11/23/19 11:00 14 138/85 Mechanical Ventilator 40 11/23/19 10:44 73 14 40 11/23/19 10:30 68 20 116/67 (83) 100 68 11/23/19 10:00 75 20 125/69 (87) 100 75 11/23/19 10:00 20 125/69 Mechanical Ventilator 40 11/23/19 09:52 40 11/23/19 09:30 75 20 134/72 (92) 100 75 11/23/19 09:00 71 20 139/88 (105) 83 71 11/23/19 09:00 20 139/88 Mechanical Ventilator 40 11/23/19 08:30 78 20 119/65 (83) 97 78 11/23/19 08:30 98.6 11/23/19 08:02 75 133/77 11/23/19 08:00 40 11/23/19 08:00 75 11/23/19 08:00 99.2 76 20 127/67 (87) 96 76 11/23/19 08:00 16 127/67 Mechanical Ventilator 40 11/23/19 08:00 Mechanical Ventilator Mechanical Ventilator 11/23/19 07:30 83 20 142/71 (94) 97 83 11/23/19 07:25 75 20 35 11/23/19 07:05 20 126/66 Mechanical Ventilator 40 11/23/19 07:00 98.2 77 20 126/66 (86) 95 11/23/19 07:00 20 126/66 Mechanical Ventilator 40 11/23/19 06:30 82 20 11/23/19 06:00 80 20 135/66 (89) 96 11/23/19 06:00 20 124/70 Mechanical Ventilator 40 11/23/19 05:30 78 20 130/67 (88) 96 11/23/19 05:00 76 20 128/82 (97) 95 11/23/19 05:00 20 130/64 Mechanical Ventilator 40 11/23/19 04:30 74 20 129/63 (85) 94 11/23/19 04:00 98.0 80 20 135/71 (92) 94 11/23/19 04:00 40 11/23/19 04:00 20 129/63 Mechanical Ventilator 40 11/23/19 04:00 80 11/23/19 04:00 Mechanical Ventilator Mechanical Ventilator 11/23/19 03:30 81 12 146/75 (98) 97 11/23/19 03:05 87 20 35 11/23/19 03:00 20 138/68 Mechanical Ventilator 40 11/23/19 03:00 78 7 154/81 (105) 92 11/23/19 03:00 78 7 92 11/23/19 02:30 70 0 119/72 (88) 94 11/23/19 02:00 97.8 71 20 116/52 (73) 96 11/23/19 02:00 20 126/54 Mechanical Ventilator 40 11/23/19 01:30 70 20 111/60 (77) 97 11/23/19 01:00 20 126/58 Mechanical Ventilator 40 11/23/19 01:00 70 20 126/58 (80) 94 11/23/19 00:30 66 20 113/61 (78) 96 11/23/19 00:00 Mechanical Ventilator Mechanical Ventilator 11/23/19 00:00 20 120/54 Mechanical Ventilator 40 11/23/19 00:00 67 20 118/53 (74) 96 11/22/19 23:39 64 20 35 11/22/19 23:30 65 20 117/60 (79) 95 11/22/19 23:15 20 106/58 Mechanical Ventilator 40 11/22/19 23:00 97.7 65 20 106/58 (74) 89 11/22/19 23:00 20 116/58 Mechanical Ventilator 40 11/22/19 22:45 65 20 110/60 (77) 92 11/22/19 22:30 64 0 113/51 (71) 91 11/22/19 22:00 20 100/57 Mechanical Ventilator 40 11/22/19 22:00 65 20 100/57 (71) 95 11/22/19 21:30 74 20 119/64 (82) 97 11/22/19 21:00 20 122/67 Mechanical Ventilator 40 11/22/19 21:00 69 20 122/67 (85) 98 11/22/19 20:32 74 144/65 11/22/19 20:30 72 20 114/67 (83) 98 11/22/19 20:00 73 11/22/19 20:00 73 20 114/67 (83) 95 11/22/19 20:00 40 11/22/19 20:00 Mechanical Ventilator Mechanical Ventilator 11/22/19 20:00 20 114/67 Mechanical Ventilator 40 11/22/19 19:45 72 20 115/64 (81) 96 11/22/19 19:36 73 20 35 11/22/19 19:30 74 20 122/58 (79) 95 11/22/19 19:04 128/73 11/22/19 19:00 74 20 128/73 (91) 89 11/22/19 19:00 20 128/73 Mechanical Ventilator 40 11/22/19 18:36 128/73 11/22/19 18:30 75 20 120/73 (89) 100 11/22/19 18:00 20 135/71 Mechanical Ventilator 40 11/22/19 18:00 70 20 135/71 (92) 100 11/22/19 17:30 80 20 86/72 (77) 100 11/22/19 17:00 20 148/72 Mechanical Ventilator 40 11/22/19 17:00 79 20 148/72 (97) 98 11/22/19 16:30 73 20 122/70 (87) 94 11/22/19 16:00 40 11/22/19 16:00 98.6 79 20 113/63 (80) 95 11/22/19 16:00 73 8/2/20 16:00 Mechanical Ventilator Mechanical Ventilator 11/22/19 16:00 20 133/83 Mechanical Ventilator 40 11/22/19 15:34 20 122/64 Mechanical Ventilator 40 11/22/19 15:30 82 20 129/86 (100) 97 11/22/19 15:02 77 20 35 11/22/19 15:00 92 20 133/83 (100) 100 11/22/19 15:00 20 133/83 Mechanical Ventilator 40 11/22/19 14:30 85 20 128/68 (88) 96 11/22/19 14:00 80 20 111/55 (73) 95 11/22/19 14:00 20 111/55 Mechanical Ventilator 40 11/22/19 13:30 87 20 121/65 (83) 96 11/22/19 13:00 89 20 124/66 (85) 96 11/22/19 13:00 20 124/66 Mechanical Ventilator 40 11/22/19 12:00 40 11/22/19 12:00 Mechanical Ventilator Mechanical Ventilator 11/22/19 12:00 75 11/22/19 12:00 99.2 73 20 98/55 (69) 94 11/22/19 11:45 76 20 104/53 (70) 95 11/22/19 11:30 75 20 103/54 (70) 95 11/22/19 11:15 80 20 110/54 (72) 96 11/22/19 11:00 20 124/55 Mechanical Ventilator 40 11/22/19 11:00 82 20 124/55 (78) 95 11/22/19 10:45 84 20 128/63 (84) 95 11/22/19 10:37 72 20 35 11/22/19 10:32 76 20 108/75 (86) 93 11/22/19 10:30 74 20 87/72 (77) 95 11/22/19 10:15 77 20 102/53 (69) 95 11/22/19 10:00 76 20 93/50 (64) 95 11/22/19 10:00 20 93/50 Mechanical Ventilator 40 11/22/19 09:45 75 20 92/55 (67) 95 11/22/19 09:30 75 20 104/58 (73) 95 11/22/19 09:15 87 20 110/56 (74) 95 11/22/19 09:00 90 20 124/66 (85) 95 11/22/19 09:00 20 124/66 Mechanical Ventilator 40 11/22/19 08:45 90 20 128/79 (95) 95 11/22/19 08:31 90 116/61 11/22/19 08:30 88 20 121/68 (85) 95 11/22/19 08:15 90 20 116/61 (79) 95 11/22/19 08:00 40 11/22/19 08:00 86 11/22/19 08:00 20 119/60 Mechanical Ventilator 40 11/22/19 08:00 98.6 89 20 119/60 (79) 95 11/22/19 08:00 Mechanical Ventilator Mechanical Ventilator 11/22/19 07:45 89 20 112/69 (83) 97 11/22/19 07:30 91 20 126/60 (82) 96 11/22/19 07:15 91 20 137/87 (104) 96 11/22/19 07:12 98 20 35 11/22/19 07:00 20 127/87 Mechanical Ventilator 40 11/22/19 07:00 92 20 133/61 (85) 95 11/22/19 06:30 101 20 11/22/19 06:07 20 109/57 Mechanical Ventilator 40.0 40 11/22/19 06:06 20 109/56 Mechanical Ventilator 40 11/22/19 06:00 20 109/57 Mechanical Ventilator 40 11/22/19 06:00 78 18 114/46 (68) 94 11/22/19 05:45 78 22 100/59 (73) 95 11/22/19 05:30 81 20 105/53 (70) 95 11/22/19 05:15 89 18 120/61 (80) 96 11/22/19 05:00 90 19 113/55 (74) 95 11/22/19 05:00 20 113/55 Mechanical Ventilator 40 11/22/19 04:45 93 18 109/67 (81) 95 11/22/19 04:30 91 19 101/59 (73) 95 11/22/19 04:15 88 18 110/57 (74) 95 11/22/19 04:00 18 122/62 Mechanical Ventilator 40 11/22/19 04:00 Mechanical Ventilator Mechanical Ventilator 11/22/19 04:00 98.3 94 19 122/62 (82) 96 11/22/19 04:00 40 11/22/19 03:45 99 13 174/98 (123) 97 11/22/19 03:35 24 174/98 Mechanical Ventilator 40 11/22/19 03:34 18 167/80 Mechanical Ventilator 40 11/22/19 03:34 98 18 163/78 (106) 96 11/22/19 03:30 104 16 163/98 (119) 96 11/22/19 03:15 94 12 149/80 (103) 95 11/22/19 03:07 124 11/22/19 03:02 89 9 141/70 (93) 97 11/22/19 03:00 18 141/70 Mechanical Ventilator 40 11/22/19 03:00 90 20 141/70 (93) 96 11/22/19 02:54 101 23 35 11/22/19 02:45 93 18 144/74 (97) 96 11/22/19 02:40 104 18 154/90 (111) 96 11/22/19 02:40 22 154/90 Mechanical Ventilator 40 11/22/19 02:35 98 20 162/90 (114) 98 11/22/19 02:30 100 16 165/95 (118) 97 11/22/19 02:26 95 18 150/73 (98) 96 11/22/19 02:20 95 20 164/81 (108) 98 11/22/19 02:15 95 24 164/81 (108) 98 11/22/19 02:11 24 167/90 Mechanical Ventilator 40 11/22/19 02:10 22 167/90 Mechanical Ventilator 40 11/22/19 02:10 86 22 168/87 (114) 98 11/22/19 02:05 86 18 169/84 (112) 98 11/22/19 02:00 99 22 178/86 (116) 98 11/22/19 02:00 24 178/86 Mechanical Ventilator 40 11/22/19 01:00 18 157/87 Mechanical Ventilator 40 11/22/19 01:00 89 18 173/86 (115) 99 11/22/19 00:00 Mechanical Ventilator Mechanical Ventilator 11/22/19 00:00 18 157/107 Mechanical Ventilator 40 11/22/19 00:00 97.3 99 22 157/107 (124) 99 11/21/19 23:30 103 24 132/87 (102) 97 11/21/19 23:18 92 11/21/19 23:11 87 20 35 11/21/19 23:00 91 20 137/77 (97) 99 11/21/19 23:00 20 137/77 Mechanical Ventilator 40 11/21/19 22:30 87 18 130/64 (86) 96 11/21/19 22:00 97 15 165/82 (109) 98 11/21/19 22:00 15 130/64 Mechanical Ventilator 40.0 11/21/19 21:30 108 15 167/81 (109) 98 11/21/19 21:16 20 125/66 Mechanical Ventilator 40 11/21/19 21:15 99 119/84 11/21/19 21:15 20 161/81 Mechanical Ventilator 40 11/21/19 21:00 84 17 98/54 (69) 99 11/21/19 21:00 17 126/78 Mechanical Ventilator 40 11/21/19 20:30 85 20 125/66 (85) 100 11/21/19 20:00 97.6 89 20 163/85 (111) 98 11/21/19 20:00 40 11/21/19 20:00 20 125/66 Mechanical Ventilator 40 11/21/19 20:00 Mechanical Ventilator Mechanical Ventilator 11/21/19 19:30 85 18 92/74 (80) 98 11/21/19 19:24 73 11/21/19 19:17 98 22 35 11/21/19 19:00 32 105/85 Mechanical Ventilator 40 11/21/19 19:00 91 15 105/85 (92) 99 11/21/19 18:29 99 20 144/82 (102) 100 11/21/19 18:00 106 20 124/88 (100) 100 11/21/19 18:00 15 144/82 Mechanical Ventilator 40 11/21/19 17:30 110 20 148/73 (98) 100 11/21/19 17:00 95 16 123/88 (100) 100 11/21/19 17:00 12 148/73 Mechanical Ventilator 40 11/21/19 16:30 95 15 137/75 (95) 100 11/21/19 16:12 40 11/21/19 16:00 97 11/21/19 16:00 12 136/49 Mechanical Ventilator 40 11/21/19 16:00 Mechanical Ventilator Mechanical Ventilator 11/21/19 16:00 96 18 140/87 (104) 100 11/21/19 15:30 106 18 136/49 (78) 100 11/21/19 15:21 99 21 35 11/21/19 15:00 16 125/74 40 11/21/19 15:00 102 13 125/74 (91) 100 Intake and Output 11/22/19 11/23/19 19:00 07:00 Intake Total 925.0 ml 878.08 ml Output Total 1650 ml 2450 ml Balance -725.0 ml -1571.92 ml Free Water 10 ml 20 ml IV Total 435.0 ml 418.08 ml Tube Feeding 480 ml 440 ml Output Urine Total 1650 ml 2450 ml Labs Test 11/20/19 23:33 11/21/19 03:15 11/21/19 05:15 11/21/19 08:15 POC Whole Blood Glucose 158 MG/DL (74-106) 224 MG/DL (74-106) Sodium Level 140 MMOL/L (136-145) Potassium Level 5.8 MMOL/L (3.5-5.1) 5.0 MMOL/L (3.5-5.1) Chloride Level 107 MMOL/L (98-107) Carbon Dioxide Level 29 MMOL/L (21-32) Anion Gap 4 mmol/L (5-15) Blood Urea Nitrogen 32 mg/dL (7-18) Creatinine 1.0 MG/DL (0.55-1.30) Estimat Glomerular Filtration Rate 58.0 mL/min (>60) Glucose Level 152 MG/DL (74-106) Calcium Level 8.5 MG/DL (8.5-10.1) White Blood Count 21.2 K/UL (4.8-10.8) Red Blood Count 4.25 M/UL (4.20-5.40) Hemoglobin 11.3 G/DL (12.0-16.0) Hematocrit 37.9 % (37.0-47.0) Mean Corpuscular Volume 89 FL (80-99) Mean Corpuscular Hemoglobin 26.6 PG (27.0-31.0) Mean Corpuscular Hemoglobin Concent 29.8 G/DL (32.0-36.0) Red Cell Distribution Width 17.6 % (11.6-14.8) Platelet Count 221 K/UL (150-450) Mean Platelet Volume 6.5 FL (6.5-10.1) Neutrophils (%) (Auto) % (45.0-75.0) Lymphocytes (%) (Auto) % (20.0-45.0) Monocytes (%) (Auto) % (1.0-10.0) Eosinophils (%) (Auto) % (0.0-3.0) Basophils (%) (Auto) % (0.0-2.0) Differential Total Cells Counted 100 Neutrophils % (Manual) 97 % (45-75) Lymphocytes % (Manual) 2 % (20-45) Monocytes % (Manual) 1 % (1-10) Eosinophils % (Manual) 0 % (0-3) Basophils % (Manual) 0 % (0-2) Band Neutrophils 0 % (0-8) Platelet Estimate Adequate Platelet Morphology Normal Hypochromasia 1+ Anisocytosis 1+ Test 11/21/19 23:27 11/22/19 05:41 11/22/19 06:11 11/22/19 07:14 White Blood Count 16.7 K/UL (4.8-10.8) Red Blood Count 3.55 M/UL (4.20-5.40) Hemoglobin 9.4 G/DL (12.0-16.0) Hematocrit 32.0 % (37.0-47.0) Mean Corpuscular Volume 90 FL (80-99) Mean Corpuscular Hemoglobin 26.5 PG (27.0-31.0) Mean Corpuscular Hemoglobin Concent 29.5 G/DL (32.0-36.0) Red Cell Distribution Width 17.6 % (11.6-14.8) Platelet Count 238 K/UL (150-450) Mean Platelet Volume 6.7 FL (6.5-10.1) Neutrophils (%) (Auto) % (45.0-75.0) Lymphocytes (%) (Auto) % (20.0-45.0) Monocytes (%) (Auto) % (1.0-10.0) Eosinophils (%) (Auto) % (0.0-3.0) Basophils (%) (Auto) % (0.0-2.0) Differential Total Cells Counted 100 Neutrophils % (Manual) 97 % (45-75) Lymphocytes % (Manual) 1 % (20-45) Monocytes % (Manual) 2 % (1-10) Eosinophils % (Manual) 0 % (0-3) Basophils % (Manual) 0 % (0-2) Band Neutrophils 0 % (0-8) Platelet Estimate Adequate Platelet Morphology Normal Hypochromasia 2+ Anisocytosis 1+ Sodium Level 143 MMOL/L (136-145) Potassium Level 4.5 MMOL/L (3.5-5.1) Chloride Level 106 MMOL/L (98-107) Carbon Dioxide Level 33 MMOL/L (21-32) Anion Gap 4 mmol/L (5-15) Blood Urea Nitrogen 40 mg/dL (7-18) Creatinine 1.1 MG/DL (0.55-1.30) Estimat Glomerular Filtration Rate 51.9 mL/min (>60) Glucose Level 281 MG/DL (74-106) Calcium Level 8.5 MG/DL (8.5-10.1) Phosphorus Level 4.2 MG/DL (2.5-4.9) Magnesium Level 2.1 MG/DL (1.8-2.4) Total Bilirubin 0.9 MG/DL (0.2-1.0) Aspartate Amino Transf (AST/SGOT) 33 U/L (15-37) Alanine Aminotransferase (ALT/SGPT) 30 U/L (12-78) Alkaline Phosphatase 208 U/L (46-116) Total Protein 6.1 G/DL (6.4-8.2) Albumin 1.9 G/DL (3.4-5.0) Globulin 4.2 g/dL Albumin/Globulin Ratio 0.5 (1.0-2.7) Arterial Blood pH 7.407 (7.350-7.450) Arterial Blood Partial Pressure CO2 46.5 mmHg (35.0-45.0) Arterial Blood Partial Pressure O2 69.8 mmHg (75.0-100.0) Arterial Blood HCO3 28.6 mmol/L (22.0-26.0) Arterial Blood Oxygen Saturation 92.8 % (95-100) Arterial Blood Base Excess 3.4 (-2-2) Steve Test Positive Test 11/23/19 05:17 11/23/19 05:38 White Blood Count 13.9 K/UL (4.8-10.8) Red Blood Count 4.10 M/UL (4.20-5.40) Hemoglobin 10.8 G/DL (12.0-16.0) Hematocrit 36.7 % (37.0-47.0) Mean Corpuscular Volume 90 FL (80-99) Mean Corpuscular Hemoglobin 26.3 PG (27.0-31.0) Mean Corpuscular Hemoglobin Concent 29.4 G/DL (32.0-36.0) Red Cell Distribution Width 17.5 % (11.6-14.8) Platelet Count 245 K/UL (150-450) Mean Platelet Volume 6.9 FL (6.5-10.1) Neutrophils (%) (Auto) % (45.0-75.0) Lymphocytes (%) (Auto) % (20.0-45.0) Monocytes (%) (Auto) % (1.0-10.0) Eosinophils (%) (Auto) % (0.0-3.0) Basophils (%) (Auto) % (0.0-2.0) Differential Total Cells Counted 100 Neutrophils % (Manual) 97 % (45-75) Lymphocytes % (Manual) 2 % (20-45) Monocytes % (Manual) 1 % (1-10) Eosinophils % (Manual) 0 % (0-3) Basophils % (Manual) 0 % (0-2) Band Neutrophils 0 % (0-8) Nucleated Red Blood Cells 1 /100 WBC Platelet Estimate Adequate Platelet Morphology Normal Hypochromasia 1+ Anisocytosis 1+ Sodium Level 146 MMOL/L (136-145) Potassium Level 4.2 MMOL/L (3.5-5.1) Chloride Level 106 MMOL/L (98-107) Carbon Dioxide Level 33 MMOL/L (21-32) Anion Gap 7 mmol/L (5-15) Blood Urea Nitrogen 45 mg/dL (7-18) Creatinine 1.0 MG/DL (0.55-1.30) Estimat Glomerular Filtration Rate 58.0 mL/min (>60) Glucose Level 321 MG/DL (74-106) Calcium Level 8.7 MG/DL (8.5-10.1) POC Whole Blood Glucose 316 MG/DL (74-106) Micro Microbiology Date/Time Source Procedure Growth Status 11/22/19 15:00 Sputum Gram Stain - Final Resulted 11/22/19 15:00 Sputum Sputum Culture Pending Resulted Height (Feet): 5 Height (Inches): 3.00 Weight (Pounds): 337 Objective Physical Exam: Vitals: reviewed General: NAD HEENT: nc, at Neck: supple Chest: clear breath sounds on vent++ Cardiovascular: RRR, no s3, s4 Abdomen: soft, nontender, nd Extremities: no cce, normal range of motion Neuro: alert and oriented Ismael Fischer MD Nov 23, 2019 14:36
[2019-11-23] MEDS ORDERED: NS 275ml ONE ×3 (16:10→18:42)
[2019-11-23] MEDS ORDERED: Tubing IV Secondary IV ONE (17:14)
--- NOTE | 2019-11-23 18:12 | Diagnostic Imaging Report ---
Indications: Needs long-term IV access. Indwelling PICC retracted Technique: Procedure performed at bedside. Of the indwelling PICC line was prepped and draped in the usual sterile fashion. Wire was advanced and the existing to evaluate removed over the wire. A new PICC line was cut to appropriate length and advanced over the wire. Wire removed. Catheter was tested noted to flush and aspirate well. There is secured to the skin with a adhesive dressing. Follow-up chest x-ray performed of interest of the catheter in the region of the right subclavian vein. Additional findings not significant changed compared to radiograph one day prior. Impression: Successful exchange of right arm PICC for a new PICC line. Catheter cleared for use.
[2019-11-23] MEDS: Norepinephrine 4mg/NS Premix 250 ML IV SCH (18:16)
[2019-11-23] MEDS: DOPamine 400mg/250ml 250 ML IV SCH (18:16)
[2019-11-23] MEDS: Dyna-Hex 2% Top Sol 2oz TOPIC SCH (20:35)
[2019-11-24] VITALS (62 sets, daily range): BP systolic 99–152; BP diastolic 49–94
[2019-11-24] MEDS: fentaNYL 2500mcg/NS 250ml 250 ML IV SCH ×4 (01:11→21:23)
[2019-11-24 04:59] LABS: HEMATOCRIT 33.4 % (37.0-47.0); HEMOGLOBIN 9.8 G/DL (12.0-16.0); MEAN CORPUSCULAR VOLUME 90 FL (80-99); PLATELET COUNT 224 K/UL (150-450); RED CELL DISTRIBUTION WIDTH 17.4 % (11.6-14.8); WHITE BLOOD COUNT 13.9 K/UL (4.8-10.8)
[2019-11-24 05:31] LABS: ALANINE AMINOTRANSFERASE 37 U/L (12-78); ALBUMIN 2.3 G/DL (3.4-5.0); ALBUMIN/GLOBULIN RATIO 0.5 (1.0-2.7); ALKALINE PHOSPHATASE 213 U/L (46-116); ANION GAP 5 mmol/L (5-15); ASPARTATE AMINO TRANSFERASE 35 U/L (15-37); BILIRUBIN,TOTAL 0.9 MG/DL (0.2-1.0); BLOOD UREA NITROGEN 54 mg/dL (7-18); CALCIUM 8.9 MG/DL (8.5-10.1); CARBON DIOXIDE 34 MMOL/L (21-32); CHLORIDE 106 MMOL/L (98-107); CREATININE 1.4 MG/DL (0.55-1.30); SODIUM 145 MMOL/L (136-145)
[2019-11-24 05:37] LABS: PHOSPHORUS 4.5 MG/DL (2.5-4.9)
[2019-11-24] MEDS: NovoLOG Insulin Flexpen SUBQ SCH ×3 (06:00→17:34)
--- NOTE | 2019-11-24 06:48 | General Progress Note ---
Assessment/Plan Problem List: (1) Hypoxia ICD Codes: R09.02 - Hypoxemia SNOMED: 375968994 (2) CHF (congestive heart failure) ICD Codes: I50.9 - Heart failure, unspecified SNOMED: 95054279 (3) Diabetes ICD Codes: E11.9 - Type 2 diabetes mellitus without complications SNOMED: 30554718 (4) Fluid overload ICD Codes: E87.70 - Fluid overload, unspecified SNOMED: 88123316 (5) 2019 novel coronavirus disease (COVID-19) ICD Codes: U07.1 - COVID-19 SNOMED: 319256754 Status: unchanged Assessment/Plan: increase Levemir to 12 units bid continue Novolog sliding scale every 6 hours hypoglycemia protocol in order Subjective ROS Limited/Unobtainable: Yes Allergies: Coded Allergies: No Known Allergies (Unverified , 11/06/19) Subjective events noted glucose values are improving sedated and intubated in ICU Item Value Date Time Bedside Blood Glucose 190 mg/dl H 11/24/19 0600 Bedside Blood Glucose 222 mg/dl H 11/24/19 0000 Bedside Blood Glucose 266 mg/dl H 11/23/19 1702 Bedside Blood Glucose 296 mg/dl H 11/23/19 1221 Bedside Blood Glucose 321 mg/dl H 11/23/19 0801 Bedside Blood Glucose 316 mg/dl H 11/23/19 0624 Objective Last 24 Hour Vital Signs Date Time Temp Pulse Resp B/P (MAP) Pulse Ox O2 Delivery O2 Flow Rate FiO2 11/24/19 06:30 74 14 11/24/19 06:00 14 132/73 Mechanical Ventilator 45 11/24/19 06:00 78 12 133/73 (93) 100 11/24/19 05:30 77 13 121/76 (91) 100 11/24/19 05:15 81 13 135/80 (98) 99 11/24/19 05:00 83 11 145/83 (103) 100 11/24/19 05:00 14 145/83 Mechanical Ventilator 45 11/24/19 04:45 82 14 152/75 (100) 100 11/24/19 04:30 98.6 85 13 146/75 (98) 100 11/24/19 04:30 13 146/75 Mechanical Ventilator 45 11/24/19 04:00 45 11/24/19 04:00 Mechanical Ventilator Mechanical Ventilator 11/24/19 04:00 11 114/70 Mechanical Ventilator 45 11/24/19 04:00 77 11 114/70 (85) 95 11/24/19 04:00 81 11/24/19 03:30 78 15 117/68 (84) 92 11/24/19 03:13 81 14 40 11/24/19 03:00 16 120/75 Mechanical Ventilator 45 11/24/19 03:00 83 16 120/75 (90) 90 11/24/19 02:30 99.1 82 14 126/73 (90) 92 11/24/19 02:00 16 123/71 Mechanical Ventilator 40 11/24/19 02:00 84 16 123/71 (88) 96 11/24/19 01:30 85 17 128/86 (100) 95 11/24/19 01:11 16 136/88 Mechanical Ventilator 40 11/24/19 01:00 83 12 132/88 (103) 96 11/24/19 01:00 14 132/88 Mechanical Ventilator 40 11/24/19 00:30 88 13 132/94 (107) 97 11/24/19 00:00 40 11/24/19 00:00 Mechanical Ventilator Mechanical Ventilator 11/24/19 00:00 95 11/24/19 00:00 88 16 121/70 (87) 92 11/24/19 00:00 13 132/94 Mechanical Ventilator 40 11/23/19 23:00 14 139/94 Mechanical Ventilator 40 11/23/19 23:00 91 14 139/94 (109) 94 11/23/19 22:54 104 14 40 11/23/19 22:30 88 14 142/93 (109) 93 11/23/19 22:00 87 16 133/99 (110) 96 11/23/19 22:00 16 133/99 Mechanical Ventilator 40 11/23/19 21:30 89 16 133/87 (102) 94 11/23/19 21:00 92 14 136/86 (103) 99 11/23/19 21:00 14 136/86 Mechanical Ventilator 40 11/23/19 20:36 90 131/90 11/23/19 20:30 92 11 131/90 (104) 98 11/23/19 20:00 91 11/23/19 20:00 12 148/86 Mechanical Ventilator 40 8/3/20 20:00 98.6 92 12 148/86 (106) 100 11/23/19 20:00 Mechanical Ventilator Mechanical Ventilator 11/23/19 20:00 40 11/23/19 19:30 95 16 138/76 (96) 100 11/23/19 19:11 93 14 40 11/23/19 19:00 98 14 156/81 (106) 98 11/23/19 19:00 14 156/81 Mechanical Ventilator 40 11/23/19 18:30 102 12 145/98 (114) 94 11/23/19 18:15 101 14 133/76 (95) 94 11/23/19 18:00 104 16 157/87 (110) 95 11/23/19 18:00 16 157/87 Mechanical Ventilator 40 11/23/19 17:30 112 17 151/95 (113) 98 11/23/19 17:10 16 168/97 Mechanical Ventilator 40 11/23/19 17:00 108 11 168/97 (120) 97 11/23/19 17:00 14 168/97 Mechanical Ventilator 40 11/23/19 16:47 172/108 11/23/19 16:30 110 14 170/108 (128) 98 11/23/19 16:00 98.4 109 16 172/119 (136) 99 11/23/19 16:00 79 11/23/19 16:00 14 172/119 Mechanical Ventilator 40 11/23/19 16:00 40 11/23/19 16:00 Mechanical Ventilator Mechanical Ventilator 11/23/19 15:30 111 12 181/99 (126) 91 11/23/19 15:07 109 15 40 11/23/19 15:00 107 14 176/110 (132) 98 11/23/19 15:00 14 175/110 Mechanical Ventilator 40 11/23/19 14:30 100 13 163/101 (121) 98 11/23/19 14:00 14 167/78 Mechanical Ventilator 40 11/23/19 14:00 97 15 167/78 (107) 99 11/23/19 13:30 94 20 164/77 (106) 97 94 11/23/19 13:00 14 144/81 Mechanical Ventilator 40 11/23/19 13:00 88 20 144/81 (102) 99 88 11/23/19 12:30 88 20 159/110 (126) 94 88 11/23/19 12:00 98.6 84 20 145/82 (103) 92 84 11/23/19 12:00 40 11/23/19 12:00 79 11/23/19 12:00 Mechanical Ventilator Mechanical Ventilator 11/23/19 12:00 14 145/82 Mechanical Ventilator 40 11/23/19 11:30 78 20 138/72 (94) 96 78 11/23/19 11:15 79 20 138/83 (101) 98 79 11/23/19 11:00 78 20 138/85 (102) 99 78 11/23/19 11:00 14 138/85 Mechanical Ventilator 40 11/23/19 10:44 73 14 40 11/23/19 10:30 68 20 116/67 (83) 100 68 11/23/19 10:00 75 20 125/69 (87) 100 75 11/23/19 10:00 20 125/69 Mechanical Ventilator 40 11/23/19 09:52 40 11/23/19 09:30 75 20 134/72 (92) 100 75 11/23/19 09:00 71 20 139/88 (105) 83 71 11/23/19 09:00 20 139/88 Mechanical Ventilator 40 11/23/19 08:30 78 20 119/65 (83) 97 78 11/23/19 08:30 98.6 11/23/19 08:02 75 133/77 11/23/19 08:00 40 11/23/19 08:00 75 11/23/19 08:00 99.2 76 20 127/67 (87) 96 76 11/23/19 08:00 16 127/67 Mechanical Ventilator 40 11/23/19 08:00 Mechanical Ventilator Mechanical Ventilator 11/23/19 07:30 83 20 142/71 (94) 97 83 11/23/19 07:25 75 20 35 11/23/19 07:05 20 126/66 Mechanical Ventilator 40 11/23/19 07:00 98.2 77 20 126/66 (86) 95 11/23/19 07:00 20 126/66 Mechanical Ventilator 40 Intake and Output 11/23/19 11/24/19 19:00 07:00 Intake Total 945 ml 529 ml Output Total 335 ml 870 ml Balance 610 ml -341 ml Free Water 50 ml IV Total 415 ml 369 ml Tube Feeding 480 ml 160 ml Output Urine Total 335 ml 870 ml Laboratory Tests 11/24/19 03:55: White Blood Count 13.9H, Red Blood Count 3.70L, Hemoglobin 9.8L, Hematocrit 33.4L, Mean Corpuscular Volume 90, Mean Corpuscular Hemoglobin 26.4L, Mean Corpuscular Hemoglobin Concent 29.3L, Red Cell Distribution Width 17.4H, Platelet Count 224, Mean Platelet Volume 6.3L, Neutrophils (%) (Auto) , Lymphocytes (%) (Auto) , Monocytes (%) (Auto) , Eosinophils (%) (Auto) , Basophils (%) (Auto) , Neutrophils % (Manual) [Pending], Lymphocytes % (Manual) [Pending], Platelet Estimate [Pending], Platelet Morphology [Pending], Prothrombin Time 11.5, Prothromb Time International Ratio 1.0, Activated Partial Thromboplast Time 25, Sodium Level 145, Potassium Level 4.0, Chloride Level 106, Carbon Dioxide Level 34H, Anion Gap 5, Blood Urea Nitrogen 54H, Creatinine 1.4H, Estimat Glomerular Filtration Rate 39.3, Glucose Level 191#H, Calcium Level 8.9, Phosphorus Level 4.5, Magnesium Level 2.1, Total Bilirubin 0.9, Aspartate Amino Transf (AST/SGOT) 35, Alanine Aminotransferase (ALT/SGPT) 37, Alkaline Phosphatase 213H, C-Reactive Protein, Quantitative 4.7H, Pro-B- Type Natriuretic Peptide 9387H, Total Protein 6.9, Albumin 2.3L, Globulin 4.6, Albumin/Globulin Ratio 0.5L Height (Feet): 5 Height (Inches): 2.00 Weight (Pounds): 338 Objective Current Medications Medications (Trade) Dose Ordered Sig/Robyn Route PRN Reason Start Time Stop Time Status Last Admin Dose Admin Acetaminophen (Tylenol) 650 mg Q6H PRN NG Temp >100.5 11/12/19 00:15 12/12/19 00:14 11/23/19 07:58 Amiodarone HCl (Cordarone) 400 mg EVERY 12 HOURS ORAL 11/20/19 09:30 02/18/20 09:29 11/23/19 20:36 Chlorhexidine Gluconate (Miya-Hex 2%) 1 applic DAILY@1999 TOPIC 11/08/19 21:30 02/06/20 21:29 11/23/19 20:35 Clonidine HCl (Catapres Tab) 0.1 mg Q4H PRN NG For High Blood Pressure 11/13/19 17:00 02/09/20 10:59 11/23/19 16:47 Dextrose (Dextrose 50%) 25 ml Q30M PRN IV Hypoglycemia 11/23/19 06:45 02/21/20 06:44 Dextrose (Dextrose 50%) 50 ml Q30M PRN IV Hypoglycemia 11/23/19 06:45 02/21/20 06:44 Docusate Sodium (Colace) 100 mg TWICE A DAY NG 11/23/19 09:00 12/23/19 08:59 11/23/19 17:09 Dopamine HCl/ Dextrose 250 ml @ 0 mls/hr Q24H IV 11/19/19 18:36 02/17/20 18:35 11/19/19 18:41 Famotidine (Pepcid I.v.) 20 mg Q12HR IVP 11/08/19 15:30 12/08/19 15:29 11/23/19 20:35 Fentanyl Citrate 250 ml @ 0 mls/hr Q24H IV 11/19/19 12:15 02/17/20 12:14 11/24/19 01:11 Folic Acid (Folate) 2 mg DAILY GT 11/15/19 09:00 12/15/19 08:59 11/23/19 08:01 Furosemide 100 mg/ Dextrose 100 ml @ 5 mls/hr Q20H IV 11/21/19 13:00 12/21/19 12:59 11/24/19 05:07 Heparin Sodium/ Sodium Chloride (Heparin 1000 units/500ml Premix) 1,000 unit ONCE PRN IV PICC 11/23/19 13:14 11/24/19 23:59 Insulin Aspart (NovoLOG) EVERY 6 HOURS SUBQ 11/15/19 12:00 02/11/20 20:59 11/23/19 23:59 Insulin Detemir (Levemir) 10 units BID SUBQ 11/23/19 09:00 02/21/20 08:59 11/23/19 17:01 Lidocaine HCl (Xylocaine 1% 30ml) 30 ml ONCE PRN INJ PICC 11/23/19 13:14 11/24/19 23:59 Lorazepam (Ativan 2mg/ml 1ml) 1 mg Q4H PRN IV For Anxiety 11/21/19 11:00 11/28/19 10:59 11/22/19 03:46 Methylprednisolone Sodium Succinate (Solu-MEDROL) 20 mg EVERY 12 HOURS IVP 11/21/19 21:00 02/18/20 20:59 11/23/19 20:36 Metoprolol Tartrate (Lopressor) 25 mg Q12HR ORAL 11/20/19 09:30 02/18/20 09:29 11/23/19 20:36 Norepinephrine Bitartrate 250 ml @ 0 mls/hr Q24H IV 11/19/19 19:49 02/17/20 19:48 Alphonse Ojeda MD Nov 24, 2019 06:48
--- NOTE | 2019-11-24 06:50 | Anethesia Preoperative Eval ---
Anesthesia Pre-op PMH/ROS General Date of Evaluation: Nov 24, 2019 Time of Evaluation: 06:32 Anesthesiologist: Reyes ASA Score: ASA 4 Mallampati Score Class I : Soft palate, uvula, fauces, pillars visible Class II: Soft palate, uvula, fauces visible Class III: Soft palate, base of uvula visible Class IV: Only hard plate visible Mallampati Classification: Class II Surgeon: Lonnie Diagnosis: Ventilatory Failure Surgical Procedure: Tracheostomy Anesthesia History: none Family History: no anesthesia problems Allergies: Coded Allergies: No Known Allergies (Unverified , 11/06/19) Medications: see eMAR Patient NPO?: Yes Past Medical History Cardiovascular: Reports: HTN, arrhythmia - AFib, other - CHF Pulmonary: Reports: other - Pneumonia Endocrine: Reports: DM Hematology/Immune: Reports: anemia Musculoskeletal/Integumentary: Reports: other - Weakness Anesthesia Pre-op Phys. Exam Physician Exam Last Vital Signs Date Time Temp Pulse Resp B/P (MAP) Pulse Ox O2 Delivery O2 Flow Rate FiO2 11/24/19 06:30 74 14 11/24/19 06:00 132/73 Mechanical Ventilator 45 11/24/19 06:00 100 11/24/19 04:30 98.6 11/22/19 06:07 40.0 Constitutional: NAD Neurologic: CN 2-12 intact Cardiovascular: RRR Respiratory: CTA Gastrointestinal: S/NT/ND Airway Exam Mallampati Score: Class III MO: limited Neck: Intubated ROM: limited Anesthesia Pre-op A/P Labs Hematology Test 11/24/19 03:55 White Blood Count 13.9 K/UL (4.8-10.8) H Red Blood Count 3.70 M/UL (4.20-5.40) L Hemoglobin 9.8 G/DL (12.0-16.0) L Hematocrit 33.4 % (37.0-47.0) L Mean Corpuscular Volume 90 FL (80-99) Mean Corpuscular Hemoglobin 26.4 PG (27.0-31.0) L Mean Corpuscular Hemoglobin Concent 29.3 G/DL (32.0-36.0) L Red Cell Distribution Width 17.4 % (11.6-14.8) H Platelet Count 224 K/UL (150-450) Mean Platelet Volume 6.3 FL (6.5-10.1) L Neutrophils (%) (Auto) % (45.0-75.0) Lymphocytes (%) (Auto) % (20.0-45.0) Monocytes (%) (Auto) % (1.0-10.0) Eosinophils (%) (Auto) % (0.0-3.0) Basophils (%) (Auto) % (0.0-2.0) Neutrophils % (Manual) Pending Lymphocytes % (Manual) Pending Platelet Estimate Pending Platelet Morphology Pending Coagulation Test 11/24/19 03:55 Prothrombin Time 11.5 SEC (9.30-11.50) Prothromb Time International Ratio 1.0 (0.9-1.1) Activated Partial Thromboplast Time 25 SEC (23-33) Chemistry Test 11/24/19 03:55 Sodium Level 145 MMOL/L (136-145) Potassium Level 4.0 MMOL/L (3.5-5.1) Chloride Level 106 MMOL/L (98-107) Carbon Dioxide Level 34 MMOL/L (21-32) H Anion Gap 5 mmol/L (5-15) Blood Urea Nitrogen 54 mg/dL (7-18) H Creatinine 1.4 MG/DL (0.55-1.30) H Estimat Glomerular Filtration Rate 39.3 mL/min (>60) Glucose Level 191 MG/DL (74-106) #H Calcium Level 8.9 MG/DL (8.5-10.1) Phosphorus Level 4.5 MG/DL (2.5-4.9) Magnesium Level 2.1 MG/DL (1.8-2.4) Total Bilirubin 0.9 MG/DL (0.2-1.0) Aspartate Amino Transf (AST/SGOT) 35 U/L (15-37) Alanine Aminotransferase (ALT/SGPT) 37 U/L (12-78) Alkaline Phosphatase 213 U/L (46-116) H C-Reactive Protein, Quantitative 4.7 mg/dL (0.00-0.90) H Pro-B-Type Natriuretic Peptide 9387 pg/mL (0-125) H Total Protein 6.9 G/DL (6.4-8.2) Albumin 2.3 G/DL (3.4-5.0) L Globulin 4.6 g/dL Albumin/Globulin Ratio 0.5 (1.0-2.7) L Risk Assessment & Plan Assessment: ASA 4 Plan: GA Status Change Before Surgery: No Pre-Antibiotics Drug: Reji Raymundo MD Nov 24, 2019 06:50
--- NOTE | 2019-11-24 08:20 | Pulmonology Progress Note ---
Subjective ROS Limited/Unobtainable: Yes Interval Events: Re-intubated on 11/19/19; Constitutional: Denies: fever HEENT: Repors: no symptoms Respiratory: Reports: dry cough, shortness of breath Cardiovascular: Reports: no symptoms Gastrointestinal/Abdominal: Reports: no symptoms Allergies: Coded Allergies: No Known Allergies (Unverified , 11/06/19) All Systems: reviewed and negative except above Objective Last 24 Hour Vital Signs Date Time Temp Pulse Resp B/P (MAP) Pulse Ox O2 Delivery O2 Flow Rate FiO2 11/24/19 07:25 79 14 45 11/24/19 07:00 14 121/61 Mechanical Ventilator 45 11/24/19 07:00 89.7 77 14 121/68 (85) 100 11/24/19 06:30 74 14 11/24/19 06:00 14 132/73 Mechanical Ventilator 45 11/24/19 06:00 78 12 133/73 (93) 100 11/24/19 05:30 77 13 121/76 (91) 100 11/24/19 05:15 81 13 135/80 (98) 99 11/24/19 05:00 83 11 145/83 (103) 100 11/24/19 05:00 14 145/83 Mechanical Ventilator 45 11/24/19 04:45 82 14 152/75 (100) 100 11/24/19 04:30 98.6 85 13 146/75 (98) 100 11/24/19 04:30 13 146/75 Mechanical Ventilator 45 11/24/19 04:00 45 11/24/19 04:00 Mechanical Ventilator Mechanical Ventilator 11/24/19 04:00 11 114/70 Mechanical Ventilator 45 11/24/19 04:00 77 11 114/70 (85) 95 11/24/19 04:00 81 11/24/19 03:30 78 15 117/68 (84) 92 11/24/19 03:13 81 14 40 11/24/19 03:00 16 120/75 Mechanical Ventilator 45 11/24/19 03:00 83 16 120/75 (90) 90 11/24/19 02:30 99.1 82 14 126/73 (90) 92 11/24/19 02:00 16 123/71 Mechanical Ventilator 40 11/24/19 02:00 84 16 123/71 (88) 96 11/24/19 01:30 85 17 128/86 (100) 95 11/24/19 01:11 16 136/88 Mechanical Ventilator 40 11/24/19 01:00 83 12 132/88 (103) 96 11/24/19 01:00 14 132/88 Mechanical Ventilator 40 11/24/19 00:30 88 13 132/94 (107) 97 11/24/19 00:00 40 11/24/19 00:00 Mechanical Ventilator Mechanical Ventilator 11/24/19 00:00 95 11/24/19 00:00 88 16 121/70 (87) 92 11/24/19 00:00 13 132/94 Mechanical Ventilator 40 11/23/19 23:00 14 139/94 Mechanical Ventilator 40 11/23/19 23:00 91 14 139/94 (109) 94 11/23/19 22:54 104 14 40 11/23/19 22:30 88 14 142/93 (109) 93 11/23/19 22:00 87 16 133/99 (110) 96 11/23/19 22:00 16 133/99 Mechanical Ventilator 40 11/23/19 21:30 89 16 133/87 (102) 94 11/23/19 21:00 92 14 136/86 (103) 99 11/23/19 21:00 14 136/86 Mechanical Ventilator 40 11/23/19 20:36 90 131/90 11/23/19 20:30 92 11 131/90 (104) 98 11/23/19 20:00 91 11/23/19 20:00 12 148/86 Mechanical Ventilator 40 11/23/19 20:00 98.6 92 12 148/86 (106) 100 11/23/19 20:00 Mechanical Ventilator Mechanical Ventilator 11/23/19 20:00 40 11/23/19 19:30 95 16 138/76 (96) 100 11/23/19 19:11 93 14 40 11/23/19 19:00 98 14 156/81 (106) 98 11/23/19 19:00 14 156/81 Mechanical Ventilator 40 11/23/19 18:30 102 12 145/98 (114) 94 11/23/19 18:15 101 14 133/76 (95) 94 11/23/19 18:00 104 16 157/87 (110) 95 11/23/19 18:00 16 157/87 Mechanical Ventilator 40 11/23/19 17:30 112 17 151/95 (113) 98 11/23/19 17:10 16 168/97 Mechanical Ventilator 40 11/23/19 17:00 108 11 168/97 (120) 97 11/23/19 17:00 14 168/97 Mechanical Ventilator 40 11/23/19 16:47 172/108 11/23/19 16:30 110 14 170/108 (128) 98 11/23/19 16:00 98.4 109 16 172/119 (136) 99 11/23/19 16:00 79 11/23/19 16:00 14 172/119 Mechanical Ventilator 40 11/23/19 16:00 40 11/23/19 16:00 Mechanical Ventilator Mechanical Ventilator 11/23/19 15:30 111 12 181/99 (126) 91 11/23/19 15:07 109 15 40 11/23/19 15:00 107 14 176/110 (132) 98 11/23/19 15:00 14 175/110 Mechanical Ventilator 40 11/23/19 14:30 100 13 163/101 (121) 98 11/23/19 14:00 14 167/78 Mechanical Ventilator 40 11/23/19 14:00 97 15 167/78 (107) 99 11/23/19 13:30 94 20 164/77 (106) 97 94 11/23/19 13:00 14 144/81 Mechanical Ventilator 40 11/23/19 13:00 88 20 144/81 (102) 99 88 11/23/19 12:30 88 20 159/110 (126) 94 88 11/23/19 12:00 98.6 84 20 145/82 (103) 92 84 11/23/19 12:00 40 11/23/19 12:00 79 11/23/19 12:00 Mechanical Ventilator Mechanical Ventilator 11/23/19 12:00 14 145/82 Mechanical Ventilator 40 11/23/19 11:30 78 20 138/72 (94) 96 78 11/23/19 11:15 79 20 138/83 (101) 98 79 11/23/19 11:00 78 20 138/85 (102) 99 78 11/23/19 11:00 14 138/85 Mechanical Ventilator 40 11/23/19 10:44 73 14 40 11/23/19 10:30 68 20 116/67 (83) 100 68 11/23/19 10:00 75 20 125/69 (87) 100 75 11/23/19 10:00 20 125/69 Mechanical Ventilator 40 11/23/19 09:52 40 11/23/19 09:30 75 20 134/72 (92) 100 75 11/23/19 09:00 71 20 139/88 (105) 83 71 11/23/19 09:00 20 139/88 Mechanical Ventilator 40 11/23/19 08:30 78 20 119/65 (83) 97 78 11/23/19 08:30 98.6 Intake and Output 11/23/19 11/24/19 19:00 07:00 Intake Total 945 ml 560 ml Output Total 335 ml 1020 ml Balance 610 ml -460 ml Free Water 50 ml IV Total 415 ml 400 ml Tube Feeding 480 ml 160 ml Output Urine Total 335 ml 1020 ml General Appearance: no acute distress HEENT: normocephalic Respiratory: decreased breath sounds Cardiovascular: normal peripheral pulses Abdomen: normal bowel sounds Extremities: no cyanosis Microbiology Date/Time Source Procedure Growth Status 11/22/19 15:00 Sputum Gram Stain - Final Resulted 11/22/19 15:00 Sputum Culture - Preliminary Gram Negative Bacillus 1 Resulted Laboratory Tests 11/24/19 03:55: White Blood Count 13.9H, Red Blood Count 3.70L, Hemoglobin 9.8L, Hematocrit 33.4L, Mean Corpuscular Volume 90, Mean Corpuscular Hemoglobin 26.4L, Mean Corpuscular Hemoglobin Concent 29.3L, Red Cell Distribution Width 17.4H, Platelet Count 224, Mean Platelet Volume 6.3L, Neutrophils (%) (Auto) , Lymphocytes (%) (Auto) , Monocytes (%) (Auto) , Eosinophils (%) (Auto) , Basophils (%) (Auto) , Neutrophils % (Manual) [Pending], Lymphocytes % (Manual) [Pending], Platelet Estimate [Pending], Platelet Morphology [Pending], Prothrombin Time 11.5, Prothromb Time International Ratio 1.0, Activated Partial Thromboplast Time 25, Sodium Level 145, Potassium Level 4.0, Chloride Level 106, Carbon Dioxide Level 34H, Anion Gap 5, Blood Urea Nitrogen 54H, Creatinine 1.4H, Estimat Glomerular Filtration Rate 39.3, Glucose Level 191#H, Calcium Level 8.9, Phosphorus Level 4.5, Magnesium Level 2.1, Total Bilirubin 0.9, Aspartate Amino Transf (AST/SGOT) 35, Alanine Aminotransferase (ALT/SGPT) 37, Alkaline Phosphatase 213H, C-Reactive Protein, Quantitative 4.7H, Pro-B- Type Natriuretic Peptide 9387H, Total Protein 6.9, Albumin 2.3L, Globulin 4.6, Albumin/Globulin Ratio 0.5L 11/24/19 07:14: Arterial Blood pH 7.372, Arterial Blood Partial Pressure CO2 60.3*H, Arterial Blood Partial Pressure O2 107.8H, Arterial Blood HCO3 34.2H, Arterial Blood Oxygen Saturation 97.8, Arterial Blood Base Excess 7.4H, Steve Test Positive Current Medications Medications (Trade) Dose Ordered Sig/Robyn Route PRN Reason Start Time Stop Time Status Last Admin Dose Admin Acetaminophen (Tylenol) 650 mg Q6H PRN NG Temp >100.5 11/12/19 00:15 12/12/19 00:14 11/23/19 07:58 Amiodarone HCl (Cordarone) 400 mg EVERY 12 HOURS ORAL 11/20/19 09:30 02/18/20 09:29 11/23/19 20:36 Chlorhexidine Gluconate (Miya-Hex 2%) 1 applic DAILY@2000 TOPIC 11/08/19 21:30 02/06/20 21:29 11/23/19 20:35 Clonidine HCl (Catapres Tab) 0.1 mg Q4H PRN NG For High Blood Pressure 11/13/19 17:00 02/09/20 10:59 11/23/19 16:47 Dextrose (Dextrose 50%) 25 ml Q30M PRN IV Hypoglycemia 11/23/19 06:45 02/21/20 06:44 Dextrose (Dextrose 50%) 50 ml Q30M PRN IV Hypoglycemia 11/23/19 06:45 02/21/20 06:44 Docusate Sodium (Colace) 100 mg TWICE A DAY NG 11/23/19 09:00 12/23/19 08:59 11/23/19 17:09 Dopamine HCl/ Dextrose 250 ml @ 0 mls/hr Q24H IV 11/19/19 18:36 02/17/20 18:35 11/19/19 18:41 Famotidine (Pepcid I.v.) 20 mg Q12HR IVP 7/19/20 15:30 12/08/19 15:29 11/23/19 20:35 Fentanyl Citrate 250 ml @ 0 mls/hr Q24H IV 11/19/19 12:15 02/17/20 12:14 11/24/19 01:11 Folic Acid (Folate) 2 mg DAILY GT 11/15/19 09:00 12/15/19 08:59 11/23/19 08:01 Furosemide 100 mg/ Dextrose 100 ml @ 5 mls/hr Q20H IV 11/21/19 13:00 12/21/19 12:59 11/24/19 05:07 Heparin Sodium/ Sodium Chloride (Heparin 1000 units/500ml Premix) 1,000 unit ONCE PRN IV PICC 11/23/19 13:14 11/24/19 23:59 Insulin Aspart (NovoLOG) EVERY 6 HOURS SUBQ 11/15/19 12:00 02/11/20 20:59 11/23/19 23:59 Insulin Detemir (Levemir) 12 units BID SUBQ 11/24/19 09:00 02/21/20 08:59 Lidocaine HCl (Xylocaine 1% 30ml) 30 ml ONCE PRN INJ PICC 11/23/19 13:14 11/24/19 23:59 Lorazepam (Ativan 2mg/ml 1ml) 1 mg Q4H PRN IV For Anxiety 11/21/19 11:00 11/28/19 10:59 11/22/19 03:46 Methylprednisolone Sodium Succinate (Solu-MEDROL) 20 mg EVERY 12 HOURS IVP 11/21/19 21:00 02/18/20 20:59 11/23/19 20:36 Metoprolol Tartrate (Lopressor) 25 mg Q12HR ORAL 11/20/19 09:30 02/18/20 09:29 11/23/19 20:36 Norepinephrine Bitartrate 250 ml @ 0 mls/hr Q24H IV 11/19/19 19:49 02/17/20 19:48 Assessment/Plan Assessment/Plan IMPRESSION: 1. COVID-19 pneumonia. 2. Diabetes mellitus and hypertension. 3. Lactic acidemia. 4. Epistaxis 5. Respiratory failure; failed extubation 6. Anasarca DISCUSSION: Careful and close monitoring. Continue medications May need tracheostomy; family agreeable On fentanyl pressors prn Continue Lasix for anasarca I will follow carefully. Lakeisha Zavaleta Omar Syed MD Nov 24, 2019 08:20
[2019-11-24] MEDS: Amiodarone 200mg tab ORAL SCH (09:04)
[2019-11-24] MEDS: Solu-MEDROL 40mg Inj IVP SCH ×2 (09:05→21:21)
[2019-11-24] MEDS: Docusate 100mg/10ml Liq NG SCH (09:05)
[2019-11-24] MEDS: Levemir Flexpen SUBQ SCH ×2 (09:10→17:37)
--- NOTE | 2019-11-24 09:44 | General Progress Note ---
Assessment/Plan Problem List: (1) Respiratory failure ICD Codes: J96.90 - Respiratory failure, unspecified, unspecified whether with hypoxia or hypercapnia SNOMED: 255485141 (2) 2019 novel coronavirus disease (COVID-19) ICD Codes: U07.1 - COVID-19 SNOMED: 012275071 (3) Multifocal pneumonia ICD Codes: J18.9 - Pneumonia, unspecified organism SNOMED: 351864268 (4) Afib ICD Codes: I48.91 - Unspecified atrial fibrillation SNOMED: 93934124 (5) CHF (congestive heart failure) ICD Codes: I50.9 - Heart failure, unspecified SNOMED: 55577555 (6) Diabetes ICD Codes: E11.9 - Type 2 diabetes mellitus without complications SNOMED: 92364844 (7) Fluid overload ICD Codes: E87.70 - Fluid overload, unspecified SNOMED: 73307770 (8) Epistaxis ICD Codes: R04.0 - Epistaxis SNOMED: 704882133 Status: unchanged Assessment/Plan: fu H&H prn blood transfusion NGTF pend trach for today will plan for PEG possibly tomorrow iv fluid per nephrology on colace will fu Subjective Allergies: Coded Allergies: No Known Allergies (Unverified , 11/06/19) Objective Last 24 Hour Vital Signs Date Time Temp Pulse Resp B/P (MAP) Pulse Ox O2 Delivery O2 Flow Rate FiO2 11/24/19 09:38 45 11/24/19 09:05 78 140/74 11/24/19 07:25 79 14 45 11/24/19 07:00 14 121/61 Mechanical Ventilator 45 11/24/19 07:00 89.7 77 14 121/68 (85) 100 11/24/19 06:30 74 14 11/24/19 06:00 14 132/73 Mechanical Ventilator 45 11/24/19 06:00 78 12 133/73 (93) 100 11/24/19 05:30 77 13 121/76 (91) 100 11/24/19 05:15 81 13 135/80 (98) 99 11/24/19 05:00 83 11 145/83 (103) 100 11/24/19 05:00 14 145/83 Mechanical Ventilator 45 11/24/19 04:45 82 14 152/75 (100) 100 11/24/19 04:30 98.6 85 13 146/75 (98) 100 11/24/19 04:30 13 146/75 Mechanical Ventilator 45 11/24/19 04:00 45 11/24/19 04:00 Mechanical Ventilator Mechanical Ventilator 11/24/19 04:00 11 114/70 Mechanical Ventilator 45 11/24/19 04:00 77 11 114/70 (85) 95 11/24/19 04:00 81 11/24/19 03:30 78 15 117/68 (84) 92 11/24/19 03:13 81 14 40 11/24/19 03:00 16 120/75 Mechanical Ventilator 45 11/24/19 03:00 83 16 120/75 (90) 90 11/24/19 02:30 99.1 82 14 126/73 (90) 92 11/24/19 02:00 16 123/71 Mechanical Ventilator 40 11/24/19 02:00 84 16 123/71 (88) 96 11/24/19 01:30 85 17 128/86 (100) 95 11/24/19 01:11 16 136/88 Mechanical Ventilator 40 11/24/19 01:00 83 12 132/88 (103) 96 11/24/19 01:00 14 132/88 Mechanical Ventilator 40 11/24/19 00:30 88 13 132/94 (107) 97 11/24/19 00:00 40 11/24/19 00:00 Mechanical Ventilator Mechanical Ventilator 11/24/19 00:00 95 11/24/19 00:00 88 16 121/70 (87) 92 11/24/19 00:00 13 132/94 Mechanical Ventilator 40 11/23/19 23:00 14 139/94 Mechanical Ventilator 40 11/23/19 23:00 91 14 139/94 (109) 94 11/23/19 22:54 104 14 40 11/23/19 22:30 88 14 142/93 (109) 93 11/23/19 22:00 87 16 133/99 (110) 96 11/23/19 22:00 16 133/99 Mechanical Ventilator 40 11/23/19 21:30 89 16 133/87 (102) 94 11/23/19 21:00 92 14 136/86 (103) 99 11/23/19 21:00 14 136/86 Mechanical Ventilator 40 11/23/19 20:36 90 131/90 11/23/19 20:30 92 11 131/90 (104) 98 11/23/19 20:00 91 11/23/19 20:00 12 148/86 Mechanical Ventilator 40 11/23/19 20:00 98.6 92 12 148/86 (106) 100 11/23/19 20:00 Mechanical Ventilator Mechanical Ventilator 11/23/19 20:00 40 11/23/19 19:30 95 16 138/76 (96) 100 11/23/19 19:11 93 14 40 11/23/19 19:00 98 14 156/81 (106) 98 11/23/19 19:00 14 156/81 Mechanical Ventilator 40 11/23/19 18:30 102 12 145/98 (114) 94 11/23/19 18:15 101 14 133/76 (95) 94 11/23/19 18:00 104 16 157/87 (110) 95 11/23/19 18:00 16 157/87 Mechanical Ventilator 40 11/23/19 17:30 112 17 151/95 (113) 98 11/23/19 17:10 16 168/97 Mechanical Ventilator 40 11/23/19 17:00 108 11 168/97 (120) 97 11/23/19 17:00 14 168/97 Mechanical Ventilator 40 11/23/19 16:47 172/108 11/23/19 16:30 110 14 170/108 (128) 98 11/23/19 16:00 98.4 109 16 172/119 (136) 99 11/23/19 16:00 79 11/23/19 16:00 14 172/119 Mechanical Ventilator 40 11/23/19 16:00 40 11/23/19 16:00 Mechanical Ventilator Mechanical Ventilator 11/23/19 15:30 111 12 181/99 (126) 91 11/23/19 15:07 109 15 40 11/23/19 15:00 107 14 176/110 (132) 98 11/23/19 15:00 14 175/110 Mechanical Ventilator 40 11/23/19 14:30 100 13 163/101 (121) 98 11/23/19 14:00 14 167/78 Mechanical Ventilator 40 11/23/19 14:00 97 15 167/78 (107) 99 11/23/19 13:30 94 20 164/77 (106) 97 94 11/23/19 13:00 14 144/81 Mechanical Ventilator 40 11/23/19 13:00 88 20 144/81 (102) 99 88 11/23/19 12:30 88 20 159/110 (126) 94 88 11/23/19 12:00 98.6 84 20 145/82 (103) 92 84 11/23/19 12:00 40 11/23/19 12:00 79 11/23/19 12:00 Mechanical Ventilator Mechanical Ventilator 11/23/19 12:00 14 145/82 Mechanical Ventilator 40 11/23/19 11:30 78 20 138/72 (94) 96 78 11/23/19 11:15 79 20 138/83 (101) 98 79 11/23/19 11:00 78 20 138/85 (102) 99 78 11/23/19 11:00 14 138/85 Mechanical Ventilator 40 11/23/19 10:44 73 14 40 11/23/19 10:30 68 20 116/67 (83) 100 68 11/23/19 10:00 75 20 125/69 (87) 100 75 11/23/19 10:00 20 125/69 Mechanical Ventilator 40 11/23/19 09:52 40 Intake and Output 11/23/19 11/24/19 19:00 07:00 Intake Total 945 ml 560 ml Output Total 335 ml 1020 ml Balance 610 ml -460 ml Free Water 50 ml IV Total 415 ml 400 ml Tube Feeding 480 ml 160 ml Output Urine Total 335 ml 1020 ml Laboratory Tests 11/24/19 03:55: White Blood Count 13.9H, Red Blood Count 3.70L, Hemoglobin 9.8L, Hematocrit 33.4L, Mean Corpuscular Volume 90, Mean Corpuscular Hemoglobin 26.4L, Mean Corpuscular Hemoglobin Concent 29.3L, Red Cell Distribution Width 17.4H, Platelet Count 224, Mean Platelet Volume 6.3L, Neutrophils (%) (Auto) , Lymphocytes (%) (Auto) , Monocytes (%) (Auto) , Eosinophils (%) (Auto) , Basophils (%) (Auto) , Neutrophils % (Manual) [Pending], Lymphocytes % (Manual) [Pending], Platelet Estimate [Pending], Platelet Morphology [Pending], Prothrombin Time 11.5, Prothromb Time International Ratio 1.0, Activated Partial Thromboplast Time 25, Sodium Level 145, Potassium Level 4.0, Chloride Level 106, Carbon Dioxide Level 34H, Anion Gap 5, Blood Urea Nitrogen 54H, Creatinine 1.4H, Estimat Glomerular Filtration Rate 39.3, Glucose Level 191#H, Calcium Level 8.9, Phosphorus Level 4.5, Magnesium Level 2.1, Total Bilirubin 0.9, Aspartate Amino Transf (AST/SGOT) 35, Alanine Aminotransferase (ALT/SGPT) 37, Alkaline Phosphatase 213H, C-Reactive Protein, Quantitative 4.7H, Pro-B- Type Natriuretic Peptide 9387H, Total Protein 6.9, Albumin 2.3L, Globulin 4.6, Albumin/Globulin Ratio 0.5L 11/24/19 07:14: Arterial Blood pH 7.372, Arterial Blood Partial Pressure CO2 60.3*H, Arterial Blood Partial Pressure O2 107.8H, Arterial Blood HCO3 34.2H, Arterial Blood Oxygen Saturation 97.8, Arterial Blood Base Excess 7.4H, Steve Test Positive 11/24/19 09:01: POC Whole Blood Glucose 175H Height (Feet): 5 Height (Inches): 2.00 Weight (Pounds): 338 General Appearance: lethargic EENT: normal ENT inspection Neck: supple Cardiovascular: normal rate Respiratory/Chest: decreased breath sounds Abdomen: normal bowel sounds, non tender, soft Extremities: non-tender Case Patel MD Nov 24, 2019 09:44
--- NOTE | 2019-11-24 10:53 | Infectious Diseases Prog Note ---
Assessment/Plan Assessment/Plan antibiotics : solumedrol A 1. COVID 19 pneumonia on 40 percent Fi O2, PEEP 5, saturation 99 percent s/p remdesivir s/p ivermectin 7.31.20 2. respiratory failure 3. leucocytosis likely secondary to steroids 4. diabetes mellitus 5. hypertension 6. obesity 7. gram negative pneumonia P 1. start zosyn 2. continue solumedrol day 5 3. will follow up cultures 4. continue isolation Subjective ROS Limited/Unobtainable: Yes Allergies: Coded Allergies: No Known Allergies (Unverified , 11/06/19) Objective Last 24 Hour Vital Signs Date Time Temp Pulse Resp B/P (MAP) Pulse Ox O2 Delivery O2 Flow Rate FiO2 11/24/19 10:43 16 137/89 Mechanical Ventilator 45 11/24/19 09:38 45 11/24/19 09:05 78 140/74 11/24/19 07:25 79 14 45 11/24/19 07:00 14 121/61 Mechanical Ventilator 45 11/24/19 07:00 89.7 77 14 121/68 (85) 100 11/24/19 06:30 74 14 11/24/19 06:00 14 132/73 Mechanical Ventilator 45 11/24/19 06:00 78 12 133/73 (93) 100 11/24/19 05:30 77 13 121/76 (91) 100 11/24/19 05:15 81 13 135/80 (98) 99 11/24/19 05:00 83 11 145/83 (103) 100 11/24/19 05:00 14 145/83 Mechanical Ventilator 45 11/24/19 04:45 82 14 152/75 (100) 100 11/24/19 04:30 98.6 85 13 146/75 (98) 100 11/24/19 04:30 13 146/75 Mechanical Ventilator 45 11/24/19 04:00 45 11/24/19 04:00 Mechanical Ventilator Mechanical Ventilator 11/24/19 04:00 11 114/70 Mechanical Ventilator 45 11/24/19 04:00 77 11 114/70 (85) 95 11/24/19 04:00 81 11/24/19 03:30 78 15 117/68 (84) 92 11/24/19 03:13 81 14 40 11/24/19 03:00 16 120/75 Mechanical Ventilator 45 11/24/19 03:00 83 16 120/75 (90) 90 11/24/19 02:30 99.1 82 14 126/73 (90) 92 11/24/19 02:00 16 123/71 Mechanical Ventilator 40 11/24/19 02:00 84 16 123/71 (88) 96 11/24/19 01:30 85 17 128/86 (100) 95 11/24/19 01:11 16 136/88 Mechanical Ventilator 40 11/24/19 01:00 83 12 132/88 (103) 96 11/24/19 01:00 14 132/88 Mechanical Ventilator 40 11/24/19 00:30 88 13 132/94 (107) 97 11/24/19 00:00 40 11/24/19 00:00 Mechanical Ventilator Mechanical Ventilator 11/24/19 00:00 95 11/24/19 00:00 88 16 121/70 (87) 92 11/24/19 00:00 13 132/94 Mechanical Ventilator 40 11/23/19 23:00 14 139/94 Mechanical Ventilator 40 11/23/19 23:00 91 14 139/94 (109) 94 11/23/19 22:54 104 14 40 11/23/19 22:30 88 14 142/93 (109) 93 11/23/19 22:00 87 16 133/99 (110) 96 11/23/19 22:00 16 133/99 Mechanical Ventilator 40 11/23/19 21:30 89 16 133/87 (102) 94 11/23/19 21:00 92 14 136/86 (103) 99 11/23/19 21:00 14 136/86 Mechanical Ventilator 40 11/23/19 20:36 90 131/90 11/23/19 20:30 92 11 131/90 (104) 98 11/23/19 20:00 91 11/23/19 20:00 12 148/86 Mechanical Ventilator 40 11/23/19 20:00 98.6 92 12 148/86 (106) 100 11/23/19 20:00 Mechanical Ventilator Mechanical Ventilator 11/23/19 20:00 40 11/23/19 19:30 95 16 138/76 (96) 100 11/23/19 19:11 93 14 40 11/23/19 19:00 98 14 156/81 (106) 98 11/23/19 19:00 14 156/81 Mechanical Ventilator 40 11/23/19 18:30 102 12 145/98 (114) 94 11/23/19 18:15 101 14 133/76 (95) 94 11/23/19 18:00 104 16 157/87 (110) 95 11/23/19 18:00 16 157/87 Mechanical Ventilator 40 11/23/19 17:30 112 17 151/95 (113) 98 11/23/19 17:10 16 168/97 Mechanical Ventilator 40 11/23/19 17:00 108 11 168/97 (120) 97 11/23/19 17:00 14 168/97 Mechanical Ventilator 40 11/23/19 16:47 172/108 11/23/19 16:30 110 14 170/108 (128) 98 11/23/19 16:00 98.4 109 16 172/119 (136) 99 11/23/19 16:00 79 11/23/19 16:00 14 172/119 Mechanical Ventilator 40 11/23/19 16:00 40 11/23/19 16:00 Mechanical Ventilator Mechanical Ventilator 11/23/19 15:30 111 12 181/99 (126) 91 11/23/19 15:07 109 15 40 11/23/19 15:00 107 14 176/110 (132) 98 11/23/19 15:00 14 175/110 Mechanical Ventilator 40 11/23/19 14:30 100 13 163/101 (121) 98 11/23/19 14:00 14 167/78 Mechanical Ventilator 40 11/23/19 14:00 97 15 167/78 (107) 99 11/23/19 13:30 94 20 164/77 (106) 97 94 11/23/19 13:00 14 144/81 Mechanical Ventilator 40 11/23/19 13:00 88 20 144/81 (102) 99 88 11/23/19 12:30 88 20 159/110 (126) 94 88 11/23/19 12:00 98.6 84 20 145/82 (103) 92 84 11/23/19 12:00 40 11/23/19 12:00 79 11/23/19 12:00 Mechanical Ventilator Mechanical Ventilator 11/23/19 12:00 14 145/82 Mechanical Ventilator 40 11/23/19 11:30 78 20 138/72 (94) 96 78 11/23/19 11:15 79 20 138/83 (101) 98 79 11/23/19 11:00 78 20 138/85 (102) 99 78 11/23/19 11:00 14 138/85 Mechanical Ventilator 40 Height (Feet): 5 Height (Inches): 2.00 Weight (Pounds): 338 Microbiology Date/Time Source Procedure Growth Status 11/22/19 15:00 Sputum Gram Stain - Final Resulted 11/22/19 15:00 Sputum Culture - Preliminary Gram Negative Bacillus 1 Resulted Laboratory Tests Test 11/24/19 03:55 11/24/19 07:14 11/24/19 09:01 White Blood Count 13.9 K/UL (4.8-10.8) H Red Blood Count 3.70 M/UL (4.20-5.40) L Hemoglobin 9.8 G/DL (12.0-16.0) L Hematocrit 33.4 % (37.0-47.0) L Mean Corpuscular Volume 90 FL (80-99) Mean Corpuscular Hemoglobin 26.4 PG (27.0-31.0) L Mean Corpuscular Hemoglobin Concent 29.3 G/DL (32.0-36.0) L Red Cell Distribution Width 17.4 % (11.6-14.8) H Platelet Count 224 K/UL (150-450) Mean Platelet Volume 6.3 FL (6.5-10.1) L Neutrophils (%) (Auto) % (45.0-75.0) Lymphocytes (%) (Auto) % (20.0-45.0) Monocytes (%) (Auto) % (1.0-10.0) Eosinophils (%) (Auto) % (0.0-3.0) Basophils (%) (Auto) % (0.0-2.0) Differential Total Cells Counted 100 Neutrophils % (Manual) 95 % (45-75) H Lymphocytes % (Manual) 1 % (20-45) L Monocytes % (Manual) 4 % (1-10) Eosinophils % (Manual) 0 % (0-3) Basophils % (Manual) 0 % (0-2) Band Neutrophils 0 % (0-8) Platelet Estimate Adequate Platelet Morphology Normal Hypochromasia 1+ Anisocytosis 1+ Prothrombin Time 11.5 SEC (9.30-11.50) Prothromb Time International Ratio 1.0 (0.9-1.1) Activated Partial Thromboplast Time 25 SEC (23-33) Sodium Level 145 MMOL/L (136-145) Potassium Level 4.0 MMOL/L (3.5-5.1) Chloride Level 106 MMOL/L (98-107) Carbon Dioxide Level 34 MMOL/L (21-32) H Anion Gap 5 mmol/L (5-15) Blood Urea Nitrogen 54 mg/dL (7-18) H Creatinine 1.4 MG/DL (0.55-1.30) H Estimat Glomerular Filtration Rate 39.3 mL/min (>60) Glucose Level 191 MG/DL (74-106) #H Calcium Level 8.9 MG/DL (8.5-10.1) Phosphorus Level 4.5 MG/DL (2.5-4.9) Magnesium Level 2.1 MG/DL (1.8-2.4) Total Bilirubin 0.9 MG/DL (0.2-1.0) Aspartate Amino Transf (AST/SGOT) 35 U/L (15-37) Alanine Aminotransferase (ALT/SGPT) 37 U/L (12-78) Alkaline Phosphatase 213 U/L (46-116) H C-Reactive Protein, Quantitative 4.7 mg/dL (0.00-0.90) H Pro-B-Type Natriuretic Peptide 9387 pg/mL (0-125) H Total Protein 6.9 G/DL (6.4-8.2) Albumin 2.3 G/DL (3.4-5.0) L Globulin 4.6 g/dL Albumin/Globulin Ratio 0.5 (1.0-2.7) L Arterial Blood pH 7.372 (7.350-7.450) Arterial Blood Partial Pressure CO2 60.3 mmHg (35.0-45.0) *H Arterial Blood Partial Pressure O2 107.8 mmHg (75.0-100.0) H Arterial Blood HCO3 34.2 mmol/L (22.0-26.0) H Arterial Blood Oxygen Saturation 97.8 % (95-100) Arterial Blood Base Excess 7.4 (-2-2) H Steve Test Positive POC Whole Blood Glucose 175 MG/DL (74-106) H Current Medications Medications (Trade) Dose Ordered Sig/Robyn Route PRN Reason Start Time Stop Time Status Last Admin Dose Admin Acetaminophen (Tylenol) 650 mg Q6H PRN NG Temp >100.5 11/12/19 00:15 12/12/19 00:14 11/23/19 07:58 Amiodarone HCl (Cordarone) 400 mg EVERY 12 HOURS ORAL 11/20/19 09:30 02/18/20 09:29 11/24/19 09:04 Chlorhexidine Gluconate (Miay-Hex 2%) 1 applic DAILY@2000 TOPIC 11/08/19 21:30 02/06/20 21:29 11/23/19 20:35 Clonidine HCl (Catapres Tab) 0.1 mg Q4H PRN NG For High Blood Pressure 11/13/19 17:00 02/09/20 10:59 11/23/19 16:47 Dextrose (Dextrose 50%) 25 ml Q30M PRN IV Hypoglycemia 11/23/19 06:45 02/21/20 06:44 Dextrose (Dextrose 50%) 50 ml Q30M PRN IV Hypoglycemia 11/23/19 06:45 02/21/20 06:44 Docusate Sodium (Colace) 100 mg TWICE A DAY NG 11/23/19 09:00 12/23/19 08:59 11/24/19 09:05 Dopamine HCl/ Dextrose 250 ml @ 0 mls/hr Q24H IV 11/19/19 18:36 02/17/20 18:35 11/19/19 18:41 Famotidine (Pepcid I.v.) 20 mg Q12HR IVP 11/08/19 15:30 12/08/19 15:29 11/24/19 09:05 Fentanyl Citrate 250 ml @ 0 mls/hr Q24H IV 11/19/19 12:15 02/17/20 12:14 11/24/19 10:43 Folic Acid (Folate) 2 mg DAILY GT 11/15/19 09:00 12/15/19 08:59 11/24/19 09:05 Furosemide 100 mg/ Dextrose 100 ml @ 5 mls/hr Q20H IV 11/21/19 13:00 12/21/19 12:59 11/24/19 05:07 Heparin Sodium/ Sodium Chloride (Heparin 1000 units/500ml Premix) 1,000 unit ONCE PRN IV PICC 11/23/19 13:14 11/24/19 23:59 Insulin Aspart (NovoLOG) EVERY 6 HOURS SUBQ 11/15/19 12:00 02/11/20 20:59 11/23/19 23:59 Insulin Detemir (Levemir) 12 units BID SUBQ 11/24/19 09:00 02/21/20 08:59 11/24/19 09:10 Lidocaine HCl (Xylocaine 1% 30ml) 30 ml ONCE PRN INJ PICC 11/23/19 13:14 11/24/19 23:59 Lorazepam (Ativan 2mg/ml 1ml) 1 mg Q4H PRN IV For Anxiety 11/21/19 11:00 11/28/19 10:59 11/22/19 03:46 Methylprednisolone Sodium Succinate (Solu-MEDROL) 20 mg EVERY 12 HOURS IVP 11/21/19 21:00 02/18/20 20:59 11/24/19 09:05 Metoprolol Tartrate (Lopressor) 25 mg Q12HR ORAL 11/20/19 09:30 02/18/20 09:29 11/24/19 09:05 Norepinephrine Bitartrate 250 ml @ 0 mls/hr Q24H IV 11/19/19 19:49 02/17/20 19:48 Rosette Bowman MD Nov 24, 2019 10:53
--- NOTE | 2019-11-24 11:54 | Cardiac Electrophysiology PN ---
Assessment/Plan Assessment/Plan 1. Paroxysmal atrial fibrillation. On metoprolol 25 q 12 and Amiodarone 400 q 12 hr. Off anticoagulation for hematuria and black stool EF 55% on echo. 2. S/P Shock. Off pressors. Tolerating Lopressor 25 bid 3. COVID positive pneumonia. 4. Diabetes, on insulin. 5. Respiratory failure on the Vent. npo FOR Tracheostomy today 6. S/P Massive nasal bleed. 7. Severe LE edema on Lasix drip 5mg/hr 8. Dysphagia, PEG tomorrow [employer] Subjective Subjective In ICU on the vent with 35% Fio2. NPO for tracheostomy today On Lasix drip 5mg/hr for severe LE edema. In atrial fib rate controlled on Lopressor 25 bid. Objective Last 24 Hour Vital Signs Date Time Temp Pulse Resp B/P (MAP) Pulse Ox O2 Delivery O2 Flow Rate FiO2 11/24/19 11:28 14 138/75 Mechanical Ventilator 45 11/24/19 11:10 81 16 45 11/24/19 11:10 81 16 94 Mechanical Ventilator 100 11/24/19 11:00 76 14 138/75 (96) 94 11/24/19 10:43 16 137/89 Mechanical Ventilator 45 11/24/19 10:30 77 15 137/89 (105) 94 11/24/19 10:00 75 17 135/93 (107) 94 11/24/19 09:38 45 11/24/19 09:30 78 14 139/83 (101) 100 11/24/19 09:05 78 140/74 11/24/19 09:00 77 14 132/82 (99) 100 11/24/19 08:30 78 14 137/75 (95) 100 11/24/19 08:00 98.5 76 14 132/77 (95) 100 11/24/19 08:00 72 11/24/19 08:00 Mechanical Ventilator Mechanical Ventilator 11/24/19 07:30 77 14 136/76 (96) 99 11/24/19 07:25 79 14 45 11/24/19 07:00 14 121/61 Mechanical Ventilator 45 11/24/19 07:00 89.7 77 14 121/68 (85) 100 11/24/19 06:30 74 14 11/24/19 06:00 14 132/73 Mechanical Ventilator 45 11/24/19 06:00 78 12 133/73 (93) 100 11/24/19 05:30 77 13 121/76 (91) 100 11/24/19 05:15 81 13 135/80 (98) 99 11/24/19 05:00 83 11 145/83 (103) 100 11/24/19 05:00 14 145/83 Mechanical Ventilator 45 11/24/19 04:45 82 14 152/75 (100) 100 11/24/19 04:30 98.6 85 13 146/75 (98) 100 11/24/19 04:30 13 146/75 Mechanical Ventilator 45 11/24/19 04:00 45 11/24/19 04:00 Mechanical Ventilator Mechanical Ventilator 11/24/19 04:00 11 114/70 Mechanical Ventilator 45 11/24/19 04:00 77 11 114/70 (85) 95 11/24/19 04:00 81 11/24/19 03:30 78 15 117/68 (84) 92 11/24/19 03:13 81 14 40 11/24/19 03:00 16 120/75 Mechanical Ventilator 45 11/24/19 03:00 83 16 120/75 (90) 90 11/24/19 02:30 99.1 82 14 126/73 (90) 92 11/24/19 02:00 16 123/71 Mechanical Ventilator 40 11/24/19 02:00 84 16 123/71 (88) 96 11/24/19 01:30 85 17 128/86 (100) 95 11/24/19 01:11 16 136/88 Mechanical Ventilator 40 11/24/19 01:00 83 12 132/88 (103) 96 11/24/19 01:00 14 132/88 Mechanical Ventilator 40 11/24/19 00:30 88 13 132/94 (107) 97 11/24/19 00:00 40 11/24/19 00:00 Mechanical Ventilator Mechanical Ventilator 11/24/19 00:00 95 11/24/19 00:00 88 16 121/70 (87) 92 11/24/19 00:00 13 132/94 Mechanical Ventilator 40 11/23/19 23:00 14 139/94 Mechanical Ventilator 40 11/23/19 23:00 91 14 139/94 (109) 94 11/23/19 22:54 104 14 40 11/23/19 22:30 88 14 142/93 (109) 93 11/23/19 22:00 87 16 133/99 (110) 96 11/23/19 22:00 16 133/99 Mechanical Ventilator 40 11/23/19 21:30 89 16 133/87 (102) 94 11/23/19 21:00 92 14 136/86 (103) 99 11/23/19 21:00 14 136/86 Mechanical Ventilator 40 11/23/19 20:36 90 131/90 11/23/19 20:30 92 11 131/90 (104) 98 11/23/19 20:00 91 11/23/19 20:00 12 148/86 Mechanical Ventilator 40 11/23/19 20:00 98.6 92 12 148/86 (106) 100 11/23/19 20:00 Mechanical Ventilator Mechanical Ventilator 11/23/19 20:00 40 11/23/19 19:30 95 16 138/76 (96) 100 11/23/19 19:11 93 14 40 11/23/19 19:00 98 14 156/81 (106) 98 11/23/19 19:00 14 156/81 Mechanical Ventilator 40 11/23/19 18:30 102 12 145/98 (114) 94 11/23/19 18:15 101 14 133/76 (95) 94 11/23/19 18:00 104 16 157/87 (110) 95 11/23/19 18:00 16 157/87 Mechanical Ventilator 40 11/23/19 17:30 112 17 151/95 (113) 98 11/23/19 17:10 16 168/97 Mechanical Ventilator 40 11/23/19 17:00 108 11 168/97 (120) 97 11/23/19 17:00 14 168/97 Mechanical Ventilator 40 11/23/19 16:47 172/108 11/23/19 16:30 110 14 170/108 (128) 98 11/23/19 16:00 98.4 109 16 172/119 (136) 99 11/23/19 16:00 79 11/23/19 16:00 14 172/119 Mechanical Ventilator 40 11/23/19 16:00 40 11/23/19 16:00 Mechanical Ventilator Mechanical Ventilator 11/23/19 15:30 111 12 181/99 (126) 91 11/23/19 15:07 109 15 40 11/23/19 15:00 107 14 176/110 (132) 98 11/23/19 15:00 14 175/110 Mechanical Ventilator 40 11/23/19 14:30 100 13 163/101 (121) 98 11/23/19 14:00 14 167/78 Mechanical Ventilator 40 11/23/19 14:00 97 15 167/78 (107) 99 11/23/19 13:30 94 20 164/77 (106) 97 94 11/23/19 13:00 14 144/81 Mechanical Ventilator 40 11/23/19 13:00 88 20 144/81 (102) 99 88 11/23/19 12:30 88 20 159/110 (126) 94 88 11/23/19 12:00 98.6 84 20 145/82 (103) 92 84 11/23/19 12:00 40 11/23/19 12:00 79 11/23/19 12:00 Mechanical Ventilator Mechanical Ventilator 11/23/19 12:00 14 145/82 Mechanical Ventilator 40 Intake and Output 11/23/19 11/24/19 19:00 07:00 Intake Total 945 ml 560 ml Output Total 335 ml 1020 ml Balance 610 ml -460 ml Free Water 50 ml IV Total 415 ml 400 ml Tube Feeding 480 ml 160 ml Output Urine Total 335 ml 1020 ml Laboratory Tests Test 11/24/19 03:55 11/24/19 07:14 11/24/19 09:01 White Blood Count 13.9 K/UL (4.8-10.8) H Red Blood Count 3.70 M/UL (4.20-5.40) L Hemoglobin 9.8 G/DL (12.0-16.0) L Hematocrit 33.4 % (37.0-47.0) L Mean Corpuscular Volume 90 FL (80-99) Mean Corpuscular Hemoglobin 26.4 PG (27.0-31.0) L Mean Corpuscular Hemoglobin Concent 29.3 G/DL (32.0-36.0) L Red Cell Distribution Width 17.4 % (11.6-14.8) H Platelet Count 224 K/UL (150-450) Mean Platelet Volume 6.3 FL (6.5-10.1) L Neutrophils (%) (Auto) % (45.0-75.0) Lymphocytes (%) (Auto) % (20.0-45.0) Monocytes (%) (Auto) % (1.0-10.0) Eosinophils (%) (Auto) % (0.0-3.0) Basophils (%) (Auto) % (0.0-2.0) Differential Total Cells Counted 100 Neutrophils % (Manual) 95 % (45-75) H Lymphocytes % (Manual) 1 % (20-45) L Monocytes % (Manual) 4 % (1-10) Eosinophils % (Manual) 0 % (0-3) Basophils % (Manual) 0 % (0-2) Band Neutrophils 0 % (0-8) Platelet Estimate Adequate Platelet Morphology Normal Hypochromasia 1+ Anisocytosis 1+ Prothrombin Time 11.5 SEC (9.30-11.50) Prothromb Time International Ratio 1.0 (0.9-1.1) Activated Partial Thromboplast Time 25 SEC (23-33) Sodium Level 145 MMOL/L (136-145) Potassium Level 4.0 MMOL/L (3.5-5.1) Chloride Level 106 MMOL/L (98-107) Carbon Dioxide Level 34 MMOL/L (21-32) H Anion Gap 5 mmol/L (5-15) Blood Urea Nitrogen 54 mg/dL (7-18) H Creatinine 1.4 MG/DL (0.55-1.30) H Estimat Glomerular Filtration Rate 39.3 mL/min (>60) Glucose Level 191 MG/DL (74-106) #H Calcium Level 8.9 MG/DL (8.5-10.1) Phosphorus Level 4.5 MG/DL (2.5-4.9) Magnesium Level 2.1 MG/DL (1.8-2.4) Total Bilirubin 0.9 MG/DL (0.2-1.0) Aspartate Amino Transf (AST/SGOT) 35 U/L (15-37) Alanine Aminotransferase (ALT/SGPT) 37 U/L (12-78) Alkaline Phosphatase 213 U/L (46-116) H C-Reactive Protein, Quantitative 4.7 mg/dL (0.00-0.90) H Pro-B-Type Natriuretic Peptide 9387 pg/mL (0-125) H Total Protein 6.9 G/DL (6.4-8.2) Albumin 2.3 G/DL (3.4-5.0) L Globulin 4.6 g/dL Albumin/Globulin Ratio 0.5 (1.0-2.7) L Arterial Blood pH 7.372 (7.350-7.450) Arterial Blood Partial Pressure CO2 60.3 mmHg (35.0-45.0) *H Arterial Blood Partial Pressure O2 107.8 mmHg (75.0-100.0) H Arterial Blood HCO3 34.2 mmol/L (22.0-26.0) H Arterial Blood Oxygen Saturation 97.8 % (95-100) Arterial Blood Base Excess 7.4 (-2-2) H Steve Test Positive POC Whole Blood Glucose 175 MG/DL (74-106) H Microbiology Date/Time Source Procedure Growth Status 11/22/19 15:00 Sputum Gram Stain - Final Resulted 11/22/19 15:00 Sputum Culture - Preliminary Gram Negative Bacillus 1 Resulted Objective HEAD AND NECK: No JVD. OG tube Orally intubated LUNGS: Coarse rhonchi. CARDIOVASCULAR: Irregularly irregular. S1 and S2 with no gallop or murmur. ABDOMEN: Soft. EXTREMITIES: 2 plus pitting edema. Gabe Snell MD Nov 24, 2019 11:54
[2019-11-24] MEDS: Piperacillin/Tazobactam 3.375 GM in NS 110 ML IVPB SCH ×2 (12:56→21:21)
[2019-11-24] MEDS ORDERED: Acetaminophen 650mg/20.3ml GT PRN (13:30)
[2019-11-24] MEDS ORDERED: Lidocaine 1% 10mg/ml/Epi 0.005mg/ml 30ml vial INJ ONE (13:32)
--- NOTE | 2019-11-24 13:32 | Hematology/Onc Progress Note ---
Assessment/Plan Assessment/Plan # Anemia of chronic disease due to underlying chronic medical issues, multifactorial v Gi bleed in this case likely related covid19+++++++++ --> Anemia workup has been ordered, rule out gi bleed --> No evidence of hemolysis is noted, peripheral smear has been reviewed. --> Hgb goal >7. Transfuse prn. --> Epogen or iron at this time is not particularly indicated --> Medications have been reviewed --> low threshold for gi evaluation in case has occult + --> hgb 10-->9.8-->9.2-->9.7-->10.7->10->11->10.2->10.6->9.4->10.8->9.8 # Leukocytosis/elevated white blood cell count, unspecified likely related to covid19 --> have reviewed peripheral smear and bandemia/neutrophilia noted --> continue antibiotics if they have been started by ID team zosyn --> on remdesivir, dexamathasone --> monitor for resolution --> wbc 12->11-->11-->13->16-->21-->17-->14-->14 # COVID 19 pneumonia --> on vent --> respiratory failure --> s/p vent reintubation 11/08 --> plan trach 11/23 # Diabetes mellitus --> iss and bs goal <140 # Hypertension --> sbp goal <150 # Dvt ppx scds Appreciate consultation and jimena EL Subjective Allergies: Coded Allergies: No Known Allergies (Unverified , 11/06/19) All Systems: reviewed and negative except above Subjective 11/09 weaning prn, meds reviewed, labs noted, hgb 9.2 11/10 on vent, no bleeding, hgb remains low, jimena Rn Jose R in am 11/11 on vent, fluids, ogf tube as well, labs pending in am 11/12 remains altered, no bleeding, labs reviewed, cbc noted 11/13 attempted weaning, but did not do well, no bleeding, hgb 10 11/14 intubated, weaning, on vent, with og, labs noted, abx 11/15 labs noted, no bleedign, weaning protocol, no night sweats, elev wbc, with fevers 11/16 no bleeding, jimena Broussard rn in the am, on vent, weaning but failed 11/17 meds reviewed, no night sweats, jimena rn, no bleeding 11/18 extubated, on nc at this time, no bleeding, meds reviewed 11/19 labs noted, no bleeding, on vent again, weaning 11/21 labs reviewed, hgb 9.4, no hemolysis, very difficult to obtain repeat lab draw in am 11/22 unable to wean vent, labs noted, plan for trach tomorrow, on fentanyl, still edematous 11/23 is for trach today and peg tomorrow, stil edematous, on lasix gtt, Objective Objective Current Medications Medications (Trade) Dose Ordered Sig/Robyn Route PRN Reason Start Time Stop Time Status Last Admin Dose Admin Acetaminophen (Tylenol) 650 mg Q6H PRN GT Temp >100.5 11/24/19 13:30 12/12/19 00:14 Amiodarone HCl (Cordarone) 400 mg EVERY 12 HOURS GT 11/24/19 21:00 02/18/20 09:29 Chlorhexidine Gluconate (Miya-Hex 2%) 1 applic DAILY@2000 TOPIC 11/08/19 21:30 02/06/20 21:29 11/23/19 20:35 Clonidine HCl (Catapres Tab) 0.1 mg Q4H PRN GT For High Blood Pressure 11/24/19 13:30 02/09/20 10:59 Dextrose (Dextrose 50%) 25 ml Q30M PRN IV Hypoglycemia 11/23/19 06:45 02/21/20 06:44 Dextrose (Dextrose 50%) 50 ml Q30M PRN IV Hypoglycemia 11/23/19 06:45 02/21/20 06:44 Docusate Sodium (Colace) 100 mg TWICE A DAY GT 11/24/19 18:00 12/23/19 08:59 Dopamine HCl/ Dextrose 250 ml @ 0 mls/hr Q24H IV 11/19/19 18:36 02/17/20 18:35 11/19/19 18:41 Famotidine (Pepcid I.v.) 20 mg Q12HR IVP 11/08/19 15:30 12/08/19 15:29 11/24/19 09:05 Fentanyl Citrate 250 ml @ 0 mls/hr Q24H IV 11/24/19 11:30 02/17/20 11:29 11/24/19 11:28 Folic Acid (Folate) 2 mg DAILY GT 11/25/19 09:00 12/15/19 08:59 Furosemide 100 mg/ Dextrose 100 ml @ 5 mls/hr Q20H IV 11/21/19 13:00 12/21/19 12:59 11/24/19 05:07 Heparin Sodium/ Sodium Chloride (Heparin 1000 units/500ml Premix) 1,000 unit ONCE PRN IV PICC 11/23/19 13:14 11/24/19 23:59 Insulin Aspart (NovoLOG) EVERY 6 HOURS SUBQ 11/15/19 12:00 02/11/20 20:59 11/23/19 23:59 Insulin Detemir (Levemir) 12 units BID SUBQ 11/24/19 09:00 02/21/20 08:59 11/24/19 09:10 Lidocaine HCl (Xylocaine 1% 30ml) 30 ml ONCE PRN INJ PICC 11/23/19 13:14 11/24/19 23:59 Lorazepam (Ativan 2mg/ml 1ml) 1 mg Q4H PRN IV For Anxiety 11/21/19 11:00 11/28/19 10:59 11/22/19 03:46 Methylprednisolone Sodium Succinate (Solu-MEDROL) 20 mg EVERY 12 HOURS IVP 11/21/19 21:00 02/18/20 20:59 11/24/19 09:05 Metoprolol Tartrate (Lopressor) 25 mg Q12HR GT 11/24/19 21:00 02/18/20 09:29 Norepinephrine Bitartrate 250 ml @ 0 mls/hr Q24H IV 11/19/19 19:49 02/17/20 19:48 Piperacillin Sod/ Tazobactam Sod 3.375 gm/Sodium Chloride 110 ml @ 27.5 mls/hr EVERY 8 HOURS IVPB 11/24/19 12:00 11/29/19 11:59 11/24/19 12:56 Last 24 Hour Vital Signs Date Time Temp Pulse Resp B/P (MAP) Pulse Ox O2 Delivery O2 Flow Rate FiO2 11/24/19 13:00 77 14 129/80 (96) 96 11/24/19 12:00 Mechanical Ventilator Mechanical Ventilator Mechanical Ventilator 11/24/19 12:00 98.8 77 14 127/78 (94) 94 11/24/19 12:00 45 11/24/19 12:00 76 11/24/19 11:30 77 14 134/91 (105) 94 11/24/19 11:28 14 138/75 Mechanical Ventilator 45 11/24/19 11:10 81 16 45 11/24/19 11:10 81 16 94 Mechanical Ventilator 100 11/24/19 11:00 76 14 138/75 (96) 94 11/24/19 10:43 16 137/89 Mechanical Ventilator 45 11/24/19 10:30 77 15 137/89 (105) 94 11/24/19 10:00 75 17 135/93 (107) 94 11/24/19 09:30 78 14 139/83 (101) 100 11/24/19 09:05 78 140/74 11/24/19 09:00 77 14 132/82 (99) 100 11/24/19 08:30 78 14 137/75 (95) 100 11/24/19 08:00 98.5 76 14 132/77 (95) 100 11/24/19 08:00 45 11/24/19 08:00 72 11/24/19 08:00 Mechanical Ventilator Mechanical Ventilator 11/24/19 07:30 77 14 136/76 (96) 99 11/24/19 07:25 79 14 45 11/24/19 07:00 14 121/61 Mechanical Ventilator 45 11/24/19 07:00 89.7 77 14 121/68 (85) 100 11/24/19 06:30 74 14 11/24/19 06:00 14 132/73 Mechanical Ventilator 45 11/24/19 06:00 78 12 133/73 (93) 100 11/24/19 05:30 77 13 121/76 (91) 100 11/24/19 05:15 81 13 135/80 (98) 99 11/24/19 05:00 83 11 145/83 (103) 100 11/24/19 05:00 14 145/83 Mechanical Ventilator 45 11/24/19 04:45 82 14 152/75 (100) 100 11/24/19 04:30 98.6 85 13 146/75 (98) 100 11/24/19 04:30 13 146/75 Mechanical Ventilator 45 11/24/19 04:00 45 11/24/19 04:00 Mechanical Ventilator Mechanical Ventilator 11/24/19 04:00 11 114/70 Mechanical Ventilator 45 11/24/19 04:00 77 11 114/70 (85) 95 11/24/19 04:00 81 11/24/19 03:30 78 15 117/68 (84) 92 11/24/19 03:13 81 14 40 11/24/19 03:00 16 120/75 Mechanical Ventilator 45 11/24/19 03:00 83 16 120/75 (90) 90 11/24/19 02:30 99.1 82 14 126/73 (90) 92 11/24/19 02:00 16 123/71 Mechanical Ventilator 40 11/24/19 02:00 84 16 123/71 (88) 96 11/24/19 01:30 85 17 128/86 (100) 95 11/24/19 01:11 16 136/88 Mechanical Ventilator 40 11/24/19 01:00 83 12 132/88 (103) 96 11/24/19 01:00 14 132/88 Mechanical Ventilator 40 11/24/19 00:30 88 13 132/94 (107) 97 11/24/19 00:00 40 11/24/19 00:00 Mechanical Ventilator Mechanical Ventilator 11/24/19 00:00 95 11/24/19 00:00 88 16 121/70 (87) 92 11/24/19 00:00 13 132/94 Mechanical Ventilator 40 11/23/19 23:00 14 139/94 Mechanical Ventilator 40 11/23/19 23:00 91 14 139/94 (109) 94 11/23/19 22:54 104 14 40 11/23/19 22:30 88 14 142/93 (109) 93 11/23/19 22:00 87 16 133/99 (110) 96 11/23/19 22:00 16 133/99 Mechanical Ventilator 40 11/23/19 21:30 89 16 133/87 (102) 94 11/23/19 21:00 92 14 136/86 (103) 99 11/23/19 21:00 14 136/86 Mechanical Ventilator 40 11/23/19 20:36 90 131/90 11/23/19 20:30 92 11 131/90 (104) 98 11/23/19 20:00 91 8/3/20 20:00 12 148/86 Mechanical Ventilator 40 11/23/19 20:00 98.6 92 12 148/86 (106) 100 11/23/19 20:00 Mechanical Ventilator Mechanical Ventilator 11/23/19 20:00 40 11/23/19 19:30 95 16 138/76 (96) 100 11/23/19 19:11 93 14 40 11/23/19 19:00 98 14 156/81 (106) 98 11/23/19 19:00 14 156/81 Mechanical Ventilator 40 11/23/19 18:30 102 12 145/98 (114) 94 11/23/19 18:15 101 14 133/76 (95) 94 11/23/19 18:00 104 16 157/87 (110) 95 11/23/19 18:00 16 157/87 Mechanical Ventilator 40 11/23/19 17:30 112 17 151/95 (113) 98 11/23/19 17:10 16 168/97 Mechanical Ventilator 40 11/23/19 17:00 108 11 168/97 (120) 97 11/23/19 17:00 14 168/97 Mechanical Ventilator 40 11/23/19 16:47 172/108 11/23/19 16:30 110 14 170/108 (128) 98 11/23/19 16:00 98.4 109 16 172/119 (136) 99 11/23/19 16:00 79 11/23/19 16:00 14 172/119 Mechanical Ventilator 40 11/23/19 16:00 40 11/23/19 16:00 Mechanical Ventilator Mechanical Ventilator 11/23/19 15:30 111 12 181/99 (126) 91 11/23/19 15:07 109 15 40 11/23/19 15:00 107 14 176/110 (132) 98 11/23/19 15:00 14 175/110 Mechanical Ventilator 40 11/23/19 14:30 100 13 163/101 (121) 98 11/23/19 14:00 14 167/78 Mechanical Ventilator 40 11/23/19 14:00 97 15 167/78 (107) 99 11/23/19 13:30 94 20 164/77 (106) 97 94 11/23/19 13:00 14 144/81 Mechanical Ventilator 40 11/23/19 13:00 88 20 144/81 (102) 99 88 11/23/19 12:30 88 20 159/110 (126) 94 88 11/23/19 12:00 98.6 84 20 145/82 (103) 92 84 11/23/19 12:00 40 11/23/19 12:00 79 11/23/19 12:00 Mechanical Ventilator Mechanical Ventilator 11/23/19 12:00 14 145/82 Mechanical Ventilator 40 11/23/19 11:30 78 20 138/72 (94) 96 78 11/23/19 11:15 79 20 138/83 (101) 98 79 11/23/19 11:00 78 20 138/85 (102) 99 78 11/23/19 11:00 14 138/85 Mechanical Ventilator 40 11/23/19 10:44 73 14 40 11/23/19 10:30 68 20 116/67 (83) 100 68 11/23/19 10:00 75 20 125/69 (87) 100 75 11/23/19 10:00 20 125/69 Mechanical Ventilator 40 11/23/19 09:52 40 11/23/19 09:30 75 20 134/72 (92) 100 75 11/23/19 09:00 71 20 139/88 (105) 83 71 11/23/19 09:00 20 139/88 Mechanical Ventilator 40 11/23/19 08:30 78 20 119/65 (83) 97 78 11/23/19 08:30 98.6 11/23/19 08:02 75 133/77 11/23/19 08:00 40 11/23/19 08:00 75 11/23/19 08:00 99.2 76 20 127/67 (87) 96 76 11/23/19 08:00 16 127/67 Mechanical Ventilator 40 11/23/19 08:00 Mechanical Ventilator Mechanical Ventilator 11/23/19 07:30 83 20 142/71 (94) 97 83 11/23/19 07:25 75 20 35 11/23/19 07:05 20 126/66 Mechanical Ventilator 40 11/23/19 07:00 98.2 77 20 126/66 (86) 95 11/23/19 07:00 20 126/66 Mechanical Ventilator 40 11/23/19 06:30 82 20 11/23/19 06:00 80 20 135/66 (89) 96 8/3/20 06:00 20 124/70 Mechanical Ventilator 40 11/23/19 05:30 78 20 130/67 (88) 96 11/23/19 05:00 76 20 128/82 (97) 95 11/23/19 05:00 20 130/64 Mechanical Ventilator 40 11/23/19 04:30 74 20 129/63 (85) 94 11/23/19 04:00 98.0 80 20 135/71 (92) 94 11/23/19 04:00 40 11/23/19 04:00 20 129/63 Mechanical Ventilator 40 11/23/19 04:00 80 11/23/19 04:00 Mechanical Ventilator Mechanical Ventilator 11/23/19 03:30 81 12 146/75 (98) 97 11/23/19 03:05 87 20 35 11/23/19 03:00 20 138/68 Mechanical Ventilator 40 11/23/19 03:00 78 7 154/81 (105) 92 11/23/19 03:00 78 7 92 11/23/19 02:30 70 0 119/72 (88) 94 11/23/19 02:00 97.8 71 20 116/52 (73) 96 11/23/19 02:00 20 126/54 Mechanical Ventilator 40 11/23/19 01:30 70 20 111/60 (77) 97 11/23/19 01:00 20 126/58 Mechanical Ventilator 40 11/23/19 01:00 70 20 126/58 (80) 94 11/23/19 00:30 66 20 113/61 (78) 96 11/23/19 00:00 Mechanical Ventilator Mechanical Ventilator 11/23/19 00:00 20 120/54 Mechanical Ventilator 40 11/23/19 00:00 67 20 118/53 (74) 96 11/22/19 23:39 64 20 35 11/22/19 23:30 65 20 117/60 (79) 95 11/22/19 23:15 20 106/58 Mechanical Ventilator 40 11/22/19 23:00 97.7 65 20 106/58 (74) 89 11/22/19 23:00 20 116/58 Mechanical Ventilator 40 11/22/19 22:45 65 20 110/60 (77) 92 11/22/19 22:30 64 0 113/51 (71) 91 11/22/19 22:00 20 100/57 Mechanical Ventilator 40 11/22/19 22:00 65 20 100/57 (71) 95 11/22/19 21:30 74 20 119/64 (82) 97 11/22/19 21:00 20 122/67 Mechanical Ventilator 40 11/22/19 21:00 69 20 122/67 (85) 98 11/22/19 20:32 74 144/65 11/22/19 20:30 72 20 114/67 (83) 98 11/22/19 20:00 73 11/22/19 20:00 73 20 114/67 (83) 95 11/22/19 20:00 40 11/22/19 20:00 Mechanical Ventilator Mechanical Ventilator 11/22/19 20:00 20 114/67 Mechanical Ventilator 40 11/22/19 19:45 72 20 115/64 (81) 96 11/22/19 19:36 73 20 35 11/22/19 19:30 74 20 122/58 (79) 95 11/22/19 19:04 128/73 11/22/19 19:00 74 20 128/73 (91) 89 11/22/19 19:00 20 128/73 Mechanical Ventilator 40 11/22/19 18:36 128/73 11/22/19 18:30 75 20 120/73 (89) 100 11/22/19 18:00 20 135/71 Mechanical Ventilator 40 11/22/19 18:00 70 20 135/71 (92) 100 11/22/19 17:30 80 20 86/72 (77) 100 11/22/19 17:00 20 148/72 Mechanical Ventilator 40 11/22/19 17:00 79 20 148/72 (97) 98 11/22/19 16:30 73 20 122/70 (87) 94 11/22/19 16:00 40 11/22/19 16:00 98.6 79 20 113/63 (80) 95 11/22/19 16:00 73 11/22/19 16:00 Mechanical Ventilator Mechanical Ventilator 11/22/19 16:00 20 133/83 Mechanical Ventilator 40 11/22/19 15:34 20 122/64 Mechanical Ventilator 40 11/22/19 15:30 82 20 129/86 (100) 97 11/22/19 15:02 77 20 35 11/22/19 15:00 92 20 133/83 (100) 100 11/22/19 15:00 20 133/83 Mechanical Ventilator 40 11/22/19 14:30 85 20 128/68 (88) 96 11/22/19 14:00 80 20 111/55 (73) 95 11/22/19 14:00 20 111/55 Mechanical Ventilator 40 Intake and Output 11/23/19 11/24/19 19:00 07:00 Intake Total 945 ml 560 ml Output Total 335 ml 1020 ml Balance 610 ml -460 ml Free Water 50 ml IV Total 415 ml 400 ml Tube Feeding 480 ml 160 ml Output Urine Total 335 ml 1020 ml Labs Test 11/21/19 23:27 11/22/19 05:41 11/22/19 06:11 11/22/19 07:14 White Blood Count 16.7 K/UL (4.8-10.8) Red Blood Count 3.55 M/UL (4.20-5.40) Hemoglobin 9.4 G/DL (12.0-16.0) Hematocrit 32.0 % (37.0-47.0) Mean Corpuscular Volume 90 FL (80-99) Mean Corpuscular Hemoglobin 26.5 PG (27.0-31.0) Mean Corpuscular Hemoglobin Concent 29.5 G/DL (32.0-36.0) Red Cell Distribution Width 17.6 % (11.6-14.8) Platelet Count 238 K/UL (150-450) Mean Platelet Volume 6.7 FL (6.5-10.1) Neutrophils (%) (Auto) % (45.0-75.0) Lymphocytes (%) (Auto) % (20.0-45.0) Monocytes (%) (Auto) % (1.0-10.0) Eosinophils (%) (Auto) % (0.0-3.0) Basophils (%) (Auto) % (0.0-2.0) Differential Total Cells Counted 100 Neutrophils % (Manual) 97 % (45-75) Lymphocytes % (Manual) 1 % (20-45) Monocytes % (Manual) 2 % (1-10) Eosinophils % (Manual) 0 % (0-3) Basophils % (Manual) 0 % (0-2) Band Neutrophils 0 % (0-8) Platelet Estimate Adequate Platelet Morphology Normal Hypochromasia 2+ Anisocytosis 1+ Sodium Level 143 MMOL/L (136-145) Potassium Level 4.5 MMOL/L (3.5-5.1) Chloride Level 106 MMOL/L (98-107) Carbon Dioxide Level 33 MMOL/L (21-32) Anion Gap 4 mmol/L (5-15) Blood Urea Nitrogen 40 mg/dL (7-18) Creatinine 1.1 MG/DL (0.55-1.30) Estimat Glomerular Filtration Rate 51.9 mL/min (>60) Glucose Level 281 MG/DL (74-106) Calcium Level 8.5 MG/DL (8.5-10.1) Phosphorus Level 4.2 MG/DL (2.5-4.9) Magnesium Level 2.1 MG/DL (1.8-2.4) Total Bilirubin 0.9 MG/DL (0.2-1.0) Aspartate Amino Transf (AST/SGOT) 33 U/L (15-37) Alanine Aminotransferase (ALT/SGPT) 30 U/L (12-78) Alkaline Phosphatase 208 U/L (46-116) Total Protein 6.1 G/DL (6.4-8.2) Albumin 1.9 G/DL (3.4-5.0) Globulin 4.2 g/dL Albumin/Globulin Ratio 0.5 (1.0-2.7) Arterial Blood pH 7.407 (7.350-7.450) Arterial Blood Partial Pressure CO2 46.5 mmHg (35.0-45.0) Arterial Blood Partial Pressure O2 69.8 mmHg (75.0-100.0) Arterial Blood HCO3 28.6 mmol/L (22.0-26.0) Arterial Blood Oxygen Saturation 92.8 % (95-100) Arterial Blood Base Excess 3.4 (-2-2) Steve Test Positive Test 11/23/19 05:17 11/23/19 05:38 11/24/19 03:55 11/24/19 07:14 White Blood Count 13.9 K/UL (4.8-10.8) 13.9 K/UL (4.8-10.8) Red Blood Count 4.10 M/UL (4.20-5.40) 3.70 M/UL (4.20-5.40) Hemoglobin 10.8 G/DL (12.0-16.0) 9.8 G/DL (12.0-16.0) Hematocrit 36.7 % (37.0-47.0) 33.4 % (37.0-47.0) Mean Corpuscular Volume 90 FL (80-99) 90 FL (80-99) Mean Corpuscular Hemoglobin 26.3 PG (27.0-31.0) 26.4 PG (27.0-31.0) Mean Corpuscular Hemoglobin Concent 29.4 G/DL (32.0-36.0) 29.3 G/DL (32.0-36.0) Red Cell Distribution Width 17.5 % (11.6-14.8) 17.4 % (11.6-14.8) Platelet Count 245 K/UL (150-450) 224 K/UL (150-450) Mean Platelet Volume 6.9 FL (6.5-10.1) 6.3 FL (6.5-10.1) Neutrophils (%) (Auto) % (45.0-75.0) % (45.0-75.0) Lymphocytes (%) (Auto) % (20.0-45.0) % (20.0-45.0) Monocytes (%) (Auto) % (1.0-10.0) % (1.0-10.0) Eosinophils (%) (Auto) % (0.0-3.0) % (0.0-3.0) Basophils (%) (Auto) % (0.0-2.0) % (0.0-2.0) Differential Total Cells Counted 100 100 Neutrophils % (Manual) 97 % (45-75) 95 % (45-75) Lymphocytes % (Manual) 2 % (20-45) 1 % (20-45) Monocytes % (Manual) 1 % (1-10) 4 % (1-10) Eosinophils % (Manual) 0 % (0-3) 0 % (0-3) Basophils % (Manual) 0 % (0-2) 0 % (0-2) Band Neutrophils 0 % (0-8) 0 % (0-8) Nucleated Red Blood Cells 1 /100 WBC Platelet Estimate Adequate Adequate Platelet Morphology Normal Normal Hypochromasia 1+ 1+ Anisocytosis 1+ 1+ Sodium Level 146 MMOL/L (136-145) 145 MMOL/L (136-145) Potassium Level 4.2 MMOL/L (3.5-5.1) 4.0 MMOL/L (3.5-5.1) Chloride Level 106 MMOL/L (98-107) 106 MMOL/L (98-107) Carbon Dioxide Level 33 MMOL/L (21-32) 34 MMOL/L (21-32) Anion Gap 7 mmol/L (5-15) 5 mmol/L (5-15) Blood Urea Nitrogen 45 mg/dL (7-18) 54 mg/dL (7-18) Creatinine 1.0 MG/DL (0.55-1.30) 1.4 MG/DL (0.55-1.30) Estimat Glomerular Filtration Rate 58.0 mL/min (>60) 39.3 mL/min (>60) Glucose Level 321 MG/DL (74-106) 191 MG/DL (74-106) Calcium Level 8.7 MG/DL (8.5-10.1) 8.9 MG/DL (8.5-10.1) POC Whole Blood Glucose 316 MG/DL (74-106) Prothrombin Time 11.5 SEC (9.30-11.50) Prothromb Time International Ratio 1.0 (0.9-1.1) Activated Partial Thromboplast Time 25 SEC (23-33) Phosphorus Level 4.5 MG/DL (2.5-4.9) Magnesium Level 2.1 MG/DL (1.8-2.4) Total Bilirubin 0.9 MG/DL (0.2-1.0) Aspartate Amino Transf (AST/SGOT) 35 U/L (15-37) Alanine Aminotransferase (ALT/SGPT) 37 U/L (12-78) Alkaline Phosphatase 213 U/L (46-116) C-Reactive Protein, Quantitative 4.7 mg/dL (0.00-0.90) Pro-B-Type Natriuretic Peptide 9387 pg/mL (0-125) Total Protein 6.9 G/DL (6.4-8.2) Albumin 2.3 G/DL (3.4-5.0) Globulin 4.6 g/dL Albumin/Globulin Ratio 0.5 (1.0-2.7) Arterial Blood pH 7.372 (7.350-7.450) Arterial Blood Partial Pressure CO2 60.3 mmHg (35.0-45.0) Arterial Blood Partial Pressure O2 107.8 mmHg (75.0-100.0) Arterial Blood HCO3 34.2 mmol/L (22.0-26.0) Arterial Blood Oxygen Saturation 97.8 % (95-100) Arterial Blood Base Excess 7.4 (-2-2) Steve Test Positive Test 11/24/19 09:01 POC Whole Blood Glucose 175 MG/DL (74-106) Height (Feet): 5 Height (Inches): 2.00 Weight (Pounds): 338 Objective Physical Exam: Vitals: reviewed General: NAD HEENT: nc, at Neck: supple Chest: clear breath sounds on vent++ Cardiovascular: RRR, no s3, s4 Abdomen: soft, nontender, nd Extremities: no cce, normal range of motion Neuro: alert and oriented Ismael Fischer MD Nov 24, 2019 13:32
[2019-11-24] MEDS ORDERED: Rocuronium Bromide 50mg/5ml Inj IV ONE (13:34)
[2019-11-24] MEDS ORDERED: fentaNYL 100 mcg/2 mL IV ONE (13:44)
--- NOTE | 2019-11-24 13:55 | Nephrology Progress Note ---
Assessment/Plan Problem List: (1) Electrolyte imbalance (2) Diabetes (3) 2019 novel coronavirus disease (COVID-19) (4) Respiratory failure Assessment 1. COVID-19 pneumonia. 2. Diabetes and hyperglycemia 3. Hypertension. 4. Hypoxic respiratory failure 5. Morbid obesity with BMI of 65.5 6. Nasal bleeding 7. Lactic acidosis 8. Hyperkalemia Plan November 23: Labs reviewed. Creatinine higher to 1.4. Due for trach today. Suggest to stop IV Lasix. November 22: Renal parameters stable. Medication list reviewed. Continue same management per consultants. November 21: Renal parameters stable. On IV Lasix. Edematous. Will order few doses of albumin 25%. Continue per consultants. November 20: Repeat serum potassium again normal. Renal parameters normal. Continue per consultants. November 19: Repeat serum potassium normal. Renal parameters within normal limit. Continue per consultants. November 18: Levemir stopped since IV fluid and dexamethasone are discontinued and patient blood sugar went down. Renal parameters are stable. Continues to be on ventilator. Previously: Renal parameters stable Weaning is being attempted patient's urine output is low. We will give a trial of albumin and Lasix, As needed Discussed with RN Stop IV to D5W 75 cc an hour Levemir 20 units subcu every 12 hours Kayexalate for high potassium as needed Monitor electrolytes and renal parameters Tight blood sugar control, long-acting insulin as needed Keep the blood pressure in check Per orders Subjective ROS Limited/Unobtainable: Yes Objective Objective Last 24 Hour Vital Signs Date Time Temp Pulse Resp B/P (MAP) Pulse Ox O2 Delivery O2 Flow Rate FiO2 11/24/19 13:30 79 15 134/84 (101) 95 11/24/19 13:00 14 129/80 Mechanical Ventilator 45 11/24/19 13:00 77 14 129/80 (96) 96 11/24/19 12:00 Mechanical Ventilator Mechanical Ventilator Mechanical Ventilator 11/24/19 12:00 14 127/78 Mechanical Ventilator 45 11/24/19 12:00 98.8 77 14 127/78 (94) 94 11/24/19 12:00 45 11/24/19 12:00 76 11/24/19 11:30 77 14 134/91 (105) 94 11/24/19 11:28 14 138/75 Mechanical Ventilator 45 11/24/19 11:10 81 16 45 11/24/19 11:10 81 16 94 Mechanical Ventilator 100 11/24/19 11:00 76 14 138/75 (96) 94 11/24/19 10:43 16 137/89 Mechanical Ventilator 45 11/24/19 10:30 77 15 137/89 (105) 94 11/24/19 10:00 75 17 135/93 (107) 94 11/24/19 09:30 78 14 139/83 (101) 100 11/24/19 09:05 78 140/74 11/24/19 09:00 77 14 132/82 (99) 100 11/24/19 08:30 78 14 137/75 (95) 100 11/24/19 08:00 98.5 76 14 132/77 (95) 100 11/24/19 08:00 45 11/24/19 08:00 72 11/24/19 08:00 Mechanical Ventilator Mechanical Ventilator 11/24/19 07:30 77 14 136/76 (96) 99 11/24/19 07:25 79 14 45 11/24/19 07:00 14 121/61 Mechanical Ventilator 45 11/24/19 07:00 89.7 77 14 121/68 (85) 100 11/24/19 06:30 74 14 11/24/19 06:00 14 132/73 Mechanical Ventilator 45 11/24/19 06:00 78 12 133/73 (93) 100 11/24/19 05:30 77 13 121/76 (91) 100 11/24/19 05:15 81 13 135/80 (98) 99 11/24/19 05:00 83 11 145/83 (103) 100 11/24/19 05:00 14 145/83 Mechanical Ventilator 45 11/24/19 04:45 82 14 152/75 (100) 100 11/24/19 04:30 98.6 85 13 146/75 (98) 100 11/24/19 04:30 13 146/75 Mechanical Ventilator 45 11/24/19 04:00 45 11/24/19 04:00 Mechanical Ventilator Mechanical Ventilator 11/24/19 04:00 11 114/70 Mechanical Ventilator 45 11/24/19 04:00 77 11 114/70 (85) 95 11/24/19 04:00 81 11/24/19 03:30 78 15 117/68 (84) 92 11/24/19 03:13 81 14 40 11/24/19 03:00 16 120/75 Mechanical Ventilator 45 11/24/19 03:00 83 16 120/75 (90) 90 11/24/19 02:30 99.1 82 14 126/73 (90) 92 11/24/19 02:00 16 123/71 Mechanical Ventilator 40 11/24/19 02:00 84 16 123/71 (88) 96 11/24/19 01:30 85 17 128/86 (100) 95 11/24/19 01:11 16 136/88 Mechanical Ventilator 40 11/24/19 01:00 83 12 132/88 (103) 96 11/24/19 01:00 14 132/88 Mechanical Ventilator 40 11/24/19 00:30 88 13 132/94 (107) 97 11/24/19 00:00 40 11/24/19 00:00 Mechanical Ventilator Mechanical Ventilator 11/24/19 00:00 95 11/24/19 00:00 88 16 121/70 (87) 92 11/24/19 00:00 13 132/94 Mechanical Ventilator 40 11/23/19 23:00 14 139/94 Mechanical Ventilator 40 11/23/19 23:00 91 14 139/94 (109) 94 11/23/19 22:54 104 14 40 11/23/19 22:30 88 14 142/93 (109) 93 11/23/19 22:00 87 16 133/99 (110) 96 11/23/19 22:00 16 133/99 Mechanical Ventilator 40 11/23/19 21:30 89 16 133/87 (102) 94 11/23/19 21:00 92 14 136/86 (103) 99 11/23/19 21:00 14 136/86 Mechanical Ventilator 40 11/23/19 20:36 90 131/90 11/23/19 20:30 92 11 131/90 (104) 98 11/23/19 20:00 91 11/23/19 20:00 12 148/86 Mechanical Ventilator 40 11/23/19 20:00 98.6 92 12 148/86 (106) 100 11/23/19 20:00 Mechanical Ventilator Mechanical Ventilator 11/23/19 20:00 40 11/23/19 19:30 95 16 138/76 (96) 100 11/23/19 19:11 93 14 40 11/23/19 19:00 98 14 156/81 (106) 98 11/23/19 19:00 14 156/81 Mechanical Ventilator 40 11/23/19 18:30 102 12 145/98 (114) 94 11/23/19 18:15 101 14 133/76 (95) 94 11/23/19 18:00 104 16 157/87 (110) 95 11/23/19 18:00 16 157/87 Mechanical Ventilator 40 11/23/19 17:30 112 17 151/95 (113) 98 11/23/19 17:10 16 168/97 Mechanical Ventilator 40 11/23/19 17:00 108 11 168/97 (120) 97 11/23/19 17:00 14 168/97 Mechanical Ventilator 40 11/23/19 16:47 172/108 11/23/19 16:30 110 14 170/108 (128) 98 11/23/19 16:00 98.4 109 16 172/119 (136) 99 11/23/19 16:00 79 11/23/19 16:00 14 172/119 Mechanical Ventilator 40 11/23/19 16:00 40 11/23/19 16:00 Mechanical Ventilator Mechanical Ventilator 11/23/19 15:30 111 12 181/99 (126) 91 11/23/19 15:07 109 15 40 11/23/19 15:00 107 14 176/110 (132) 98 11/23/19 15:00 14 175/110 Mechanical Ventilator 40 11/23/19 14:30 100 13 163/101 (121) 98 11/23/19 14:00 14 167/78 Mechanical Ventilator 40 11/23/19 14:00 97 15 167/78 (107) 99 Intake and Output 11/23/19 11/24/19 19:00 07:00 Intake Total 945 ml 560 ml Output Total 335 ml 1020 ml Balance 610 ml -460 ml Free Water 50 ml IV Total 415 ml 400 ml Tube Feeding 480 ml 160 ml Output Urine Total 335 ml 1020 ml Laboratory Tests 11/24/19 03:55: White Blood Count 13.9H, Red Blood Count 3.70L, Hemoglobin 9.8L, Hematocrit 33.4L, Mean Corpuscular Volume 90, Mean Corpuscular Hemoglobin 26.4L, Mean Corpuscular Hemoglobin Concent 29.3L, Red Cell Distribution Width 17.4H, Platelet Count 224, Mean Platelet Volume 6.3L, Neutrophils (%) (Auto) , Lymphocytes (%) (Auto) , Monocytes (%) (Auto) , Eosinophils (%) (Auto) , Basophils (%) (Auto) , Differential Total Cells Counted 100, Neutrophils % ( Manual) 95H, Lymphocytes % (Manual) 1L, Monocytes % (Manual) 4, Eosinophils % ( Manual) 0, Basophils % (Manual) 0, Band Neutrophils 0, Platelet Estimate Adequate, Platelet Morphology Normal, Hypochromasia 1+, Anisocytosis 1+, Prothrombin Time 11.5, Prothromb Time International Ratio 1.0, Activated Partial Thromboplast Time 25, Sodium Level 145, Potassium Level 4.0, Chloride Level 106, Carbon Dioxide Level 34H, Anion Gap 5, Blood Urea Nitrogen 54H, Creatinine 1.4H, Estimat Glomerular Filtration Rate 39.3, Glucose Level 191#H, Calcium Level 8.9, Phosphorus Level 4.5, Magnesium Level 2.1, Total Bilirubin 0.9, Aspartate Amino Transf (AST/SGOT) 35, Alanine Aminotransferase (ALT/SGPT) 37, Alkaline Phosphatase 213H, C-Reactive Protein, Quantitative 4.7H, Pro-B- Type Natriuretic Peptide 9387H, Total Protein 6.9, Albumin 2.3L, Globulin 4.6, Albumin/Globulin Ratio 0.5L 11/24/19 07:14: Arterial Blood pH 7.372, Arterial Blood Partial Pressure CO2 60.3*H, Arterial Blood Partial Pressure O2 107.8H, Arterial Blood HCO3 34.2H, Arterial Blood Oxygen Saturation 97.8, Arterial Blood Base Excess 7.4H, Steve Test Positive 11/24/19 09:01: POC Whole Blood Glucose 175H Height (Feet): 5 Height (Inches): 2.00 Weight (Pounds): 338 General Appearance: no apparent distress, lethargic EENT: other - Intubated on ventilator Cardiovascular: tachycardia Respiratory/Chest: decreased breath sounds Abdomen: distended Papa Young MD Nov 24, 2019 13:55
--- NOTE | 2019-11-24 14:03 | Surgery Progress Note ---
Surgery Progress Note Subjective Procedure Performed Left femoral triple-lumen catheter removal Additional Comments plan trach today Objective Last 24 Hour Vital Signs Date Time Temp Pulse Resp B/P (MAP) Pulse Ox O2 Delivery O2 Flow Rate FiO2 11/24/19 13:30 79 15 134/84 (101) 95 11/24/19 13:00 14 129/80 Mechanical Ventilator 45 11/24/19 13:00 77 14 129/80 (96) 96 11/24/19 12:00 Mechanical Ventilator Mechanical Ventilator Mechanical Ventilator 11/24/19 12:00 14 127/78 Mechanical Ventilator 45 11/24/19 12:00 98.8 77 14 127/78 (94) 94 11/24/19 12:00 45 11/24/19 12:00 76 11/24/19 11:30 77 14 134/91 (105) 94 11/24/19 11:28 14 138/75 Mechanical Ventilator 45 11/24/19 11:10 81 16 45 11/24/19 11:10 81 16 94 Mechanical Ventilator 100 11/24/19 11:00 76 14 138/75 (96) 94 11/24/19 10:43 16 137/89 Mechanical Ventilator 45 11/24/19 10:30 77 15 137/89 (105) 94 11/24/19 10:00 75 17 135/93 (107) 94 11/24/19 09:30 78 14 139/83 (101) 100 11/24/19 09:05 78 140/74 11/24/19 09:00 77 14 132/82 (99) 100 11/24/19 08:30 78 14 137/75 (95) 100 11/24/19 08:00 98.5 76 14 132/77 (95) 100 11/24/19 08:00 45 11/24/19 08:00 72 11/24/19 08:00 Mechanical Ventilator Mechanical Ventilator 11/24/19 07:30 77 14 136/76 (96) 99 11/24/19 07:25 79 14 45 11/24/19 07:00 14 121/61 Mechanical Ventilator 45 11/24/19 07:00 89.7 77 14 121/68 (85) 100 11/24/19 06:30 74 14 11/24/19 06:00 14 132/73 Mechanical Ventilator 45 11/24/19 06:00 78 12 133/73 (93) 100 11/24/19 05:30 77 13 121/76 (91) 100 11/24/19 05:15 81 13 135/80 (98) 99 11/24/19 05:00 83 11 145/83 (103) 100 11/24/19 05:00 14 145/83 Mechanical Ventilator 45 11/24/19 04:45 82 14 152/75 (100) 100 11/24/19 04:30 98.6 85 13 146/75 (98) 100 11/24/19 04:30 13 146/75 Mechanical Ventilator 45 11/24/19 04:00 45 11/24/19 04:00 Mechanical Ventilator Mechanical Ventilator 11/24/19 04:00 11 114/70 Mechanical Ventilator 45 11/24/19 04:00 77 11 114/70 (85) 95 11/24/19 04:00 81 11/24/19 03:30 78 15 117/68 (84) 92 11/24/19 03:13 81 14 40 11/24/19 03:00 16 120/75 Mechanical Ventilator 45 11/24/19 03:00 83 16 120/75 (90) 90 11/24/19 02:30 99.1 82 14 126/73 (90) 92 11/24/19 02:00 16 123/71 Mechanical Ventilator 40 11/24/19 02:00 84 16 123/71 (88) 96 11/24/19 01:30 85 17 128/86 (100) 95 11/24/19 01:11 16 136/88 Mechanical Ventilator 40 11/24/19 01:00 83 12 132/88 (103) 96 11/24/19 01:00 14 132/88 Mechanical Ventilator 40 11/24/19 00:30 88 13 132/94 (107) 97 11/24/19 00:00 40 11/24/19 00:00 Mechanical Ventilator Mechanical Ventilator 11/24/19 00:00 95 11/24/19 00:00 88 16 121/70 (87) 92 11/24/19 00:00 13 132/94 Mechanical Ventilator 40 11/23/19 23:00 14 139/94 Mechanical Ventilator 40 11/23/19 23:00 91 14 139/94 (109) 94 11/23/19 22:54 104 14 40 11/23/19 22:30 88 14 142/93 (109) 93 8/3/20 22:00 87 16 133/99 (110) 96 11/23/19 22:00 16 133/99 Mechanical Ventilator 40 11/23/19 21:30 89 16 133/87 (102) 94 11/23/19 21:00 92 14 136/86 (103) 99 11/23/19 21:00 14 136/86 Mechanical Ventilator 40 11/23/19 20:36 90 131/90 11/23/19 20:30 92 11 131/90 (104) 98 11/23/19 20:00 91 11/23/19 20:00 12 148/86 Mechanical Ventilator 40 11/23/19 20:00 98.6 92 12 148/86 (106) 100 11/23/19 20:00 Mechanical Ventilator Mechanical Ventilator 11/23/19 20:00 40 11/23/19 19:30 95 16 138/76 (96) 100 11/23/19 19:11 93 14 40 11/23/19 19:00 98 14 156/81 (106) 98 11/23/19 19:00 14 156/81 Mechanical Ventilator 40 11/23/19 18:30 102 12 145/98 (114) 94 11/23/19 18:15 101 14 133/76 (95) 94 11/23/19 18:00 104 16 157/87 (110) 95 11/23/19 18:00 16 157/87 Mechanical Ventilator 40 11/23/19 17:30 112 17 151/95 (113) 98 11/23/19 17:10 16 168/97 Mechanical Ventilator 40 11/23/19 17:00 108 11 168/97 (120) 97 11/23/19 17:00 14 168/97 Mechanical Ventilator 40 11/23/19 16:47 172/108 11/23/19 16:30 110 14 170/108 (128) 98 11/23/19 16:00 98.4 109 16 172/119 (136) 99 11/23/19 16:00 79 11/23/19 16:00 14 172/119 Mechanical Ventilator 40 11/23/19 16:00 40 11/23/19 16:00 Mechanical Ventilator Mechanical Ventilator 11/23/19 15:30 111 12 181/99 (126) 91 11/23/19 15:07 109 15 40 11/23/19 15:00 107 14 176/110 (132) 98 11/23/19 15:00 14 175/110 Mechanical Ventilator 40 11/23/19 14:30 100 13 163/101 (121) 98 I&O Intake and Output 11/23/19 11/24/19 19:00 07:00 Intake Total 945 ml 560 ml Output Total 335 ml 1020 ml Balance 610 ml -460 ml Free Water 50 ml IV Total 415 ml 400 ml Tube Feeding 480 ml 160 ml Output Urine Total 335 ml 1020 ml Dressing: other Wound: other Drains: other Cardiovascular: RSR Respiratory: decreased breath sounds Abdomen: soft, non-tender, present bowel sounds Extremities: no cyanosis Laboratory Tests Test 11/24/19 03:55 11/24/19 07:14 11/24/19 09:01 White Blood Count 13.9 K/UL (4.8-10.8) H Red Blood Count 3.70 M/UL (4.20-5.40) L Hemoglobin 9.8 G/DL (12.0-16.0) L Hematocrit 33.4 % (37.0-47.0) L Mean Corpuscular Volume 90 FL (80-99) Mean Corpuscular Hemoglobin 26.4 PG (27.0-31.0) L Mean Corpuscular Hemoglobin Concent 29.3 G/DL (32.0-36.0) L Red Cell Distribution Width 17.4 % (11.6-14.8) H Platelet Count 224 K/UL (150-450) Mean Platelet Volume 6.3 FL (6.5-10.1) L Neutrophils (%) (Auto) % (45.0-75.0) Lymphocytes (%) (Auto) % (20.0-45.0) Monocytes (%) (Auto) % (1.0-10.0) Eosinophils (%) (Auto) % (0.0-3.0) Basophils (%) (Auto) % (0.0-2.0) Differential Total Cells Counted 100 Neutrophils % (Manual) 95 % (45-75) H Lymphocytes % (Manual) 1 % (20-45) L Monocytes % (Manual) 4 % (1-10) Eosinophils % (Manual) 0 % (0-3) Basophils % (Manual) 0 % (0-2) Band Neutrophils 0 % (0-8) Platelet Estimate Adequate Platelet Morphology Normal Hypochromasia 1+ Anisocytosis 1+ Prothrombin Time 11.5 SEC (9.30-11.50) Prothromb Time International Ratio 1.0 (0.9-1.1) Activated Partial Thromboplast Time 25 SEC (23-33) Sodium Level 145 MMOL/L (136-145) Potassium Level 4.0 MMOL/L (3.5-5.1) Chloride Level 106 MMOL/L (98-107) Carbon Dioxide Level 34 MMOL/L (21-32) H Anion Gap 5 mmol/L (5-15) Blood Urea Nitrogen 54 mg/dL (7-18) H Creatinine 1.4 MG/DL (0.55-1.30) H Estimat Glomerular Filtration Rate 39.3 mL/min (>60) Glucose Level 191 MG/DL (74-106) #H Calcium Level 8.9 MG/DL (8.5-10.1) Phosphorus Level 4.5 MG/DL (2.5-4.9) Magnesium Level 2.1 MG/DL (1.8-2.4) Total Bilirubin 0.9 MG/DL (0.2-1.0) Aspartate Amino Transf (AST/SGOT) 35 U/L (15-37) Alanine Aminotransferase (ALT/SGPT) 37 U/L (12-78) Alkaline Phosphatase 213 U/L (46-116) H C-Reactive Protein, Quantitative 4.7 mg/dL (0.00-0.90) H Pro-B-Type Natriuretic Peptide 9387 pg/mL (0-125) H Total Protein 6.9 G/DL (6.4-8.2) Albumin 2.3 G/DL (3.4-5.0) L Globulin 4.6 g/dL Albumin/Globulin Ratio 0.5 (1.0-2.7) L Arterial Blood pH 7.372 (7.350-7.450) Arterial Blood Partial Pressure CO2 60.3 mmHg (35.0-45.0) *H Arterial Blood Partial Pressure O2 107.8 mmHg (75.0-100.0) H Arterial Blood HCO3 34.2 mmol/L (22.0-26.0) H Arterial Blood Oxygen Saturation 97.8 % (95-100) Arterial Blood Base Excess 7.4 (-2-2) H Steve Test Positive POC Whole Blood Glucose 175 MG/DL (74-106) H Plan Problems: (1) Weak (2) UTI (urinary tract infection) (3) Hypoxia (4) Epistaxis Assessment & Plan: Severe after taxis left nostril Rhino Rocket placed hemostasis noted over the course 24 hours hemoglobin stable Lovenox been stopped. The balloon of both ports of the Rhino Rocket were deflated today. The rocket itself was not removed and will monitor over the course next 24 hours hemostasis. If so will gently remove and plan for local monitoring. Currently wean ventilator as tolerated. Goals of extubation when possible. deflated balloon 11/08 removed trumpet 11/09 will monitor for bleeding wean vent plan extubation discussed with pulm (5) Fluid overload Assessment & Plan: Continue central venous catheter for now. Will anticipate removal once patient stable for extubation. Thank you for allowing me to participate patient's care picc in line out (6) Diabetes (7) CHF (congestive heart failure) (8) Afib (9) Multifocal pneumonia (10) 2019 novel coronavirus disease (COVID-19) Assessment & Plan: + wean vent extubated failed reintubated consider trach plan trach 11/22 (11) Respiratory failure Ortiz Fleming Nov 24, 2019 14:03
--- NOTE | 2019-11-24 15:28 | Brief Operative Note ---
Immediate Post Operative Note Operative Note Pre-op Diagnosis: Sepsis Respiratory insufficiency Procedure: tracheostomy Post-op Diagnosis: same as pre-op Anesthesia: general Specimen: none Complications: none Condition: stable Fluids: see Estimated Blood Loss: minimal Drains: none Implant(s) used?: Ortiz Zepeda Nov 24, 2019 15:28
--- NOTE | 2019-11-24 15:49 | Immediate Post-Op Evaluation ---
Immediate Post-Op Evalulation Immediate Post-Op Evalulation Procedure: tracheostomy Date of Evaluation: Nov 24, 2019 Time of Evaluation: 15:48 IV Fluids: 300 Blood Pressure Systolic: 116 Blood Pressure Diastolic: 67 Pulse Rate: 74 Respiratory Rate: 14 O2 Sat by Pulse Oximetry: 100 Nausea: No Vomiting: No Complications none Patient Status: patent - transported pt to ICU with covid and ACLS protocol. VSS, ventilated - AC 14 45% 500 5; report given to ICU. Fentanly drip off and report given to ICU nurse Hydration Status: adequate Drug: none Given Within 1 Hr of Incision: No Trinidad Lee CRNA Nov 24, 2019 15:49
[2019-11-24] MEDS ORDERED: Sterile Water Irrig 1000ml IRRIG ONE (17:19)
[2019-11-24] MEDS ORDERED: Docusate 100mg/10ml Liq GT SCH (18:00)
[2019-11-24] MEDS: DOPamine 400mg/250ml 250 ML IV SCH (18:36)
--- NOTE | 2019-11-24 19:15 | Operative Note - Dictated ---
DATE OF OPERATION: 11/24/2019 PREOPERATIVE DIAGNOSIS: Respiratory insufficiency requiring prolonged ventilatory support. POSTOPERATIVE DIAGNOSIS: Respiratory insufficiency requiring prolonged ventilatory support. OPERATION PERFORMED: Tracheostomy. ATTENDING SURGEON: Ortiz Fleming MD. MOLECULAR GENETIC PATHOLOGIST: None. ANESTHESIOLOGIST: Trinidad Lee CRNA. ANESTHESIA: General LOCAL SUPERINTENDENT plus local. ESTIMATED BLOOD LOSS: Minimal. IV FLUIDS: Please see anesthesia records. COMPLICATIONS: None. DRAINS: None. COUNTS: Sponge and needle count correct x2. WOUND CLASSIFICATION: Class 1. ANTIBIOTICS: Patient is on scheduled IV antibiotics. INDICATIONS FOR PROCEDURE: This is a 54-year-old female, COVID positive with respiratory insufficiency on ventilatory support, failed extubation once, continues to require ventilator support, and after risks, benefits, and alternatives discussed with patient's family, medical teams, Pulmonology, Critical Care team, decision was made that the best plan of care for the patient would be tracheostomy and continued weaning of respiratory support. Consent was obtained. Patient was scheduled for 11/24/2019. OPERATIVE NOTE: Patient was taken to the operating room and placed on the operating room table in supine position with bilateral arms down. All bony prominences well padded. SCDs placed. Preoperative time-out taken to identify patient, procedure, operative staff, and surgical staff. Patient is already on scheduled IV antibiotics. General anesthesia was induced. Patient was made comfortable. Shoulder roll was placed. Neck was hyperextended. The neck was prepped and draped in standard surgical fashion. All COVID precautions were taken throughout the procedure given patient's condition for the staff and team including myself and the patient. A skin incision was made two fingerbreadths above the sternal notch. Incision was carried down to the subcutaneous tissue, platysma. Platysma was incised. Median raphae was identified. Strap muscles were mobilized laterally. The trachea was identified. Tracheal cartilages were noted for second and third with clear visualization and dissection. A window was made between the first and second tracheal cartilages and the ET tube was identified inside the trachea. The ET tube was slowly withdrawn by the anesthesiologist. An 8-[place] Shiley tracheostomy was inserted under direct visualization without complication. The balloon inflated and patient ventilated through the tracheostomy with good end-tidal CO2 and volumes. The trach was sutured in place and dressings were applied and trach tie. Patient tolerated the procedure well and was taken to the intensive care unit in stable condition. Ortiz Fleming M.D. DR: EVERETTE JOB#: [id number] CC:
[2019-11-24] MEDS: Norepinephrine 4mg/NS Premix 250 ML IV SCH (19:49)
[2019-11-24] MEDS: Amiodarone 200mg tab GT SCH (21:20)
[2019-11-24] MEDS: Dyna-Hex 2% Top Sol 2oz TOPIC SCH (21:20)
[2019-11-25] VITALS (63 sets, daily range): BP systolic 93–183; BP diastolic 47–123
[2019-11-25] MEDS: NovoLOG Insulin Flexpen SUBQ SCH ×5 (06:00→23:45)
[2019-11-25] MEDS: Piperacillin/Tazobactam 3.375 GM in NS 110 ML IVPB SCH (06:10)
--- NOTE | 2019-11-25 06:28 | General Progress Note ---
Assessment/Plan Problem List: (1) Hypoxia ICD Codes: R09.02 - Hypoxemia SNOMED: 322811467 (2) CHF (congestive heart failure) ICD Codes: I50.9 - Heart failure, unspecified SNOMED: 02621246 (3) Diabetes ICD Codes: E11.9 - Type 2 diabetes mellitus without complications SNOMED: 97908678 (4) Fluid overload ICD Codes: E87.70 - Fluid overload, unspecified SNOMED: 08222020 (5) 2019 novel coronavirus disease (COVID-19) ICD Codes: U07.1 - COVID-19 SNOMED: 529366339 Status: unchanged Assessment/Plan: continue Levemir 12 units bid - half dose while TF is off continue Novolog sliding scale every 6 hours hypoglycemia protocol in order repeat TSH, free T4 Subjective ROS Limited/Unobtainable: Yes Allergies: Coded Allergies: No Known Allergies (Unverified , 11/06/19) Subjective events noted glucose values are stable sedated and intubated in ICU Item Value Date Time Bedside Blood Glucose 126 mg/dl H 11/25/19 0600 Bedside Blood Glucose 122 mg/dl H 11/25/19 0000 Bedside Blood Glucose 141 mg/dl H 11/24/19 1800 Bedside Blood Glucose 152 mg/dl H 11/24/19 1200 Bedside Blood Glucose 175 mg/dl H 11/24/19 0910 Bedside Blood Glucose 190 mg/dl H 11/24/19 0600 Bedside Blood Glucose 222 mg/dl H 11/24/19 0000 Objective Last 24 Hour Vital Signs Date Time Temp Pulse Resp B/P (MAP) Pulse Ox O2 Delivery O2 Flow Rate FiO2 11/25/19 04:00 Mechanical Ventilator Mechanical Ventilator Mechanical Ventilator 11/25/19 04:00 45 11/25/19 03:22 62 15 45 11/25/19 03:00 15 111/64 Mechanical Ventilator 80 11/25/19 03:00 67 15 111/64 (80) 97 11/25/19 02:30 65 15 110/51 (70) 97 11/25/19 02:15 66 15 116/64 (81) 97 11/25/19 02:00 16 145/78 Mechanical Ventilator 80 11/25/19 02:00 68 15 145/78 (100) 97 11/25/19 01:45 64 15 94/49 (64) 97 8/5/20 01:30 63 15 111/54 (73) 97 11/25/19 01:15 62 15 99/55 (70) 97 11/25/19 01:00 14 100/49 Mechanical Ventilator 80 8 01:00 62 15 100/49 (66) 97 11/25/19 00:45 62 15 100/54 (69) 97 11/25/19 00:30 61 15 100/53 (69) 97 11/25/19 00:15 62 15 105/55 (72) 97 11/25/19 00:00 Mechanical Ventilator Mechanical Ventilator Mechanical Ventilator 11/25/19 00:00 45 11/25/19 00:00 15 103/52 Mechanical Ventilator 80 11/25/19 00:00 98.1 62 15 103/52 (69) 97 11/24/19 23:45 63 15 109/58 (75) 97 11/24/19 23:33 57 8 23:30 62 15 101/56 (71) 97 11/24/19 23:30 66 15 45 11/24/19 23:15 62 15 106/60 (75) 97 11/24/19 23:00 15 100/55 Mechanical Ventilator 40 11/24/19 23:00 61 15 100/55 (70) 97 11/24/19 22:45 62 15 110/52 (71) 97 11/24/19 22:30 61 15 109/57 (74) 98 11/24/19 22:15 61 15 100/50 (67) 98 8 22:00 15 105/55 Mechanical Ventilator 40 11/24/19 22:00 62 15 105/55 (72) 98 8 21:45 64 15 107/49 (68) 98 8/20 21:30 64 15 99/56 (70) 98 8/20 21:23 20 116/60 Mechanical Ventilator 80 8 21:21 67 115/50 8//20 21:15 66 15 115/60 (78) 98 8//20 21:00 15 114/55 Mechanical Ventilator 40 820 21:00 67 15 114/55 (74) 98 8//20 20:45 67 15 116/67 (83) 98 8/20 20:35 70 8/20 20:30 66 15 103/58 (73) 98 20 20:15 65 15 99/57 (71) 98 11/24/19 20:00 98.2 66 15 101/53 (69) 98 11/24/19 20:00 15 101/53 Mechanical Ventilator 40 11/24/19 20:00 45 11/24/19 20:00 Mechanical Ventilator Mechanical Ventilator Mechanical Ventilator 11/24/19 19:49 103/58 8 19:45 66 15 111/55 (73) 98 11/24/19 19:30 67 15 110/61 (77) 99 11/24/19 19:30 65 16 45 11/24/19 19:15 69 15 103/53 (70) 98 11/24/19 19:00 71 15 104/55 (71) 99 11/24/19 19:00 15 101/57 Mechanical Ventilator 45 11/24/19 18:36 103/53 11/24/19 18:30 68 15 110/56 (74) 99 11/24/19 18:15 68 15 106/63 (77) 99 11/24/19 18:00 16 120/60 Mechanical Ventilator 45 11/24/19 18:00 71 15 110/73 (85) 99 11/24/19 17:45 72 15 120/60 (80) 98 11/24/19 17:30 65 15 102/60 (74) 99 11/24/19 17:15 68 16 112/55 (74) 97 11/24/19 17:00 16 107/71 Mechanical Ventilator 45 11/24/19 17:00 71 15 121/65 (83) 97 11/24/19 16:45 70 16 107/71 (83) 97 11/24/19 16:30 72 16 117/70 (86) 97 11/24/19 16:15 72 16 115/67 (83) 97 11/24/19 16:00 98.7 83 16 111/72 (85) 98 11/24/19 16:00 Mechanical Ventilator Mechanical Ventilator Mechanical Ventilator 11/24/19 16:00 16 116/67 Mechanical Ventilator 45 11/24/19 16:00 69 11/24/19 16:00 45 11/24/19 15:49 87 18 45 11/24/19 15:49 74 14 100 11/24/19 15:45 45 11/24/19 15:45 81 14 105/73 (84) 99 11/24/19 14:30 84 14 141/79 (99) 97 11/24/19 14:00 83 14 137/90 (106) 96 11/24/19 14:00 15 144/96 Mechanical Ventilator 45 11/24/19 13:30 79 15 134/84 (101) 95 11/24/19 13:00 14 129/80 Mechanical Ventilator 45 11/24/19 13:00 77 14 129/80 (96) 96 11/24/19 12:00 Mechanical Ventilator Mechanical Ventilator Mechanical Ventilator 11/24/19 12:00 14 127/78 Mechanical Ventilator 45 11/24/19 12:00 98.8 77 14 127/78 (94) 94 11/24/19 12:00 45 11/24/19 12:00 76 11/24/19 11:30 77 14 134/91 (105) 94 11/24/19 11:28 14 138/75 Mechanical Ventilator 45 11/24/19 11:10 81 16 45 11/24/19 11:10 81 16 94 Mechanical Ventilator 100 11/24/19 11:00 76 14 138/75 (96) 94 11/24/19 10:43 16 137/89 Mechanical Ventilator 45 11/24/19 10:30 77 15 137/89 (105) 94 11/24/19 10:00 75 17 135/93 (107) 94 11/24/19 09:30 78 14 139/83 (101) 100 11/24/19 09:05 78 140/74 11/24/19 09:00 77 14 132/82 (99) 100 11/24/19 08:30 78 14 137/75 (95) 100 11/24/19 08:00 98.5 76 14 132/77 (95) 100 11/24/19 08:00 45 11/24/19 08:00 72 11/24/19 08:00 Mechanical Ventilator Mechanical Ventilator 11/24/19 07:30 77 14 136/76 (96) 99 11/24/19 07:25 79 14 45 11/24/19 07:00 14 121/61 Mechanical Ventilator 45 11/24/19 07:00 89.7 77 14 121/68 (85) 100 11/24/19 06:30 74 14 Intake and Output 11/24/19 11/25/19 19:00 07:00 Intake Total 584.34476 ml 304.00910 ml Output Total 1400 ml 1300 ml Balance -815.29728 ml -995.24831 ml Free Water 70 ml IV Total 444.16550 ml 304.77671 ml Other 70 ml Output Urine Total 1400 ml 1300 ml Laboratory Tests 11/24/19 07:14: Arterial Blood pH 7.372, Arterial Blood Partial Pressure CO2 60.3*H, Arterial Blood Partial Pressure O2 107.8H, Arterial Blood HCO3 34.2H, Arterial Blood Oxygen Saturation 97.8, Arterial Blood Base Excess 7.4H, Steve Test Positive 11/24/19 09:01: POC Whole Blood Glucose 175H 11/24/19 12:40: POC Whole Blood Glucose [Pending] Height (Feet): 5 Height (Inches): 1.00 Weight (Pounds): 335 Objective Current Medications Medications (Trade) Dose Ordered Sig/Robyn Route PRN Reason Start Time Stop Time Status Last Admin Dose Admin Acetaminophen (Tylenol) 650 mg Q6H PRN GT Temp >100.5 11/24/19 13:30 12/12/19 00:14 Amiodarone HCl (Cordarone) 400 mg EVERY 12 HOURS GT 11/24/19 21:00 02/18/20 09:29 11/24/19 21:20 Chlorhexidine Gluconate (Miya-Hex 2%) 1 applic DAILY@2000 TOPIC 11/08/19 21:30 02/06/20 21:29 11/24/19 21:20 Clonidine HCl (Catapres Tab) 0.1 mg Q4H PRN GT For High Blood Pressure 11/24/19 13:30 02/09/20 10:59 Dextrose (Dextrose 50%) 25 ml Q30M PRN IV Hypoglycemia 11/23/19 06:45 02/21/20 06:44 Dextrose (Dextrose 50%) 50 ml Q30M PRN IV Hypoglycemia 11/23/19 06:45 02/21/20 06:44 Docusate Sodium (Colace) 100 mg TWICE A DAY GT 11/24/19 18:00 12/23/19 08:59 11/24/19 17:35 Dopamine HCl/ Dextrose 250 ml @ 0 mls/hr Q24H IV 11/19/19 18:36 02/17/20 18:35 11/19/19 18:41 Famotidine (Pepcid I.v.) 20 mg Q12HR IVP 11/08/19 15:30 12/08/19 15:29 11/24/19 21:21 Fentanyl Citrate 250 ml @ 0 mls/hr Q24H IV 11/24/19 11:30 02/17/20 11:29 11/24/19 21:23 Folic Acid (Folate) 2 mg DAILY GT 11/25/19 09:00 12/15/19 08:59 Insulin Aspart (NovoLOG) EVERY 6 HOURS SUBQ 11/15/19 12:00 02/11/20 20:59 11/23/19 23:59 Insulin Detemir (Levemir) 12 units BID SUBQ 11/24/19 09:00 02/21/20 08:59 11/24/19 17:37 Lorazepam (Ativan 2mg/ml 1ml) 1 mg Q4H PRN IV For Anxiety 11/21/19 11:00 11/28/19 10:59 11/22/19 03:46 Methylprednisolone Sodium Succinate (Solu-MEDROL) 20 mg EVERY 12 HOURS IVP 11/21/19 21:00 02/18/20 20:59 11/24/19 21:21 Metoprolol Tartrate (Lopressor) 25 mg Q12HR GT 11/24/19 21:00 02/18/20 09:29 11/24/19 21:21 Norepinephrine Bitartrate 250 ml @ 0 mls/hr Q24H IV 11/19/19 19:49 02/17/20 19:48 Piperacillin Sod/ Tazobactam Sod 3.375 gm/Sodium Chloride 110 ml @ 27.5 mls/hr EVERY 8 HOURS IVPB 11/24/19 12:00 11/29/19 11:59 11/25/19 06:10 Alphonse Ojeda MD Nov 25, 2019 06:28
[2019-11-25] MEDS: fentaNYL 2500mcg/NS 250ml 250 ML IV SCH ×2 (08:02→20:19)
[2019-11-25] MEDS: Docusate 100mg/10ml Liq GT SCH ×2 (08:07→20:17)
[2019-11-25] MEDS: Solu-MEDROL 40mg Inj IVP SCH (08:07)
[2019-11-25] MEDS: Amiodarone 200mg tab GT SCH ×2 (08:08→20:18)
--- NOTE | 2019-11-25 08:10 | Pre-Procedure Note/Attestation ---
Pre-Procedure Note/Attestation Complete Prior to Procedure Planned Procedure: not applicable Procedure Narrative: egd/peg Indications for Procedure Pre-Operative Diagnosis: dysphagia Attestation I attest that I discussed the nature of the procedure; its benefits; risks and complications; and alternatives (and the risks and benefits of such alternatives ), prior to the procedure, with the patient (or the patient's legal sales representative advertising). I attest that, if there was a reasonable possibility of needing a blood transfusion, the patient (or the patient's legal sales representative advertising) was given the [facility] standardized written summary, pursuant to the [employer] Blood Safety Act ([place] Health and Safety Code # 1645, as amended). I attest that I re-evaluated the patient just prior to the surgery and that there has been no change in the patient's H&P, except as documented below: Case Patel MD Nov 25, 2019 08:10
--- NOTE | 2019-11-25 08:15 | 48 Hour Post Anesthesia Eval ---
Post Anesthesia Evaluation Procedure: tracheostomy Date of Evaluation: Nov 25, 2019 Time of Evaluation: 08:13 Blood Pressure Systolic: 125 0: 71 Pulse Rate: 69 Respiratory Rate: 20 - Mech Vent Temperature (Fahrenheit): 98 O2 Sat by Pulse Oximetry: 100 Airway: patent Nausea: No Vomiting: No Pain Intensity: 0 Hydration Status: adequate Cardiopulmonary Status: Stable Mental Status/LOC: patient returned to baseline Follow-up Care/Observations: 0 Post-Anesthesia Complications: 0 Follow-up care needed: N/A Reji Chambers MD Nov 25, 2019 08:15
--- NOTE | 2019-11-25 08:22 | Hematology/Onc Progress Note ---
Assessment/Plan Assessment/Plan # Anemia of chronic disease due to underlying chronic medical issues, multifactorial v Gi bleed in this case likely related covid19+++++++++ --> Anemia workup has been ordered, rule out gi bleed --> No evidence of hemolysis is noted, peripheral smear has been reviewed. --> Hgb goal >7. Transfuse prn. --> Epogen or iron at this time is not particularly indicated --> Medications have been reviewed --> low threshold for gi evaluation in case has occult + --> hgb 10-->9.8-->9.2-->9.7-->10.7->10->11->10.2->10.6->9.4->10.8->9.8 # Leukocytosis/elevated white blood cell count, unspecified likely related to covid19 --> have reviewed peripheral smear and bandemia/neutrophilia noted --> continue antibiotics if they have been started by ID team zosyn --> on remdesivir, dexamathasone --> monitor for resolution --> wbc 12->11-->11-->13->16-->21-->17-->14-->14 # COVID 19 pneumonia --> on vent --> respiratory failure --> s/p vent reintubation 11/08 --> 11/23 trach was done # Diabetes mellitus --> iss and bs goal <140 # Dysphagia --> for peg 11/24 # Hypertension --> sbp goal <150 # Dvt ppx scds Appreciate consultation and jimena RN Subjective Constitutional: Denies: no symptoms, chills, fever, malaise, weakness, other HEENT: Denies: no symptoms, eye pain, blurred vision, tearing, double vision, ear pain, ear discharge, nose pain, nose congestion, throat pain, throat swelling, mouth pain, mouth swelling, other Cardiovascular: Denies: no symptoms, chest pain, edema, irregular heart rate, lightheadedness, palpitations, syncope, other Respiratory: Denies: no symptoms, cough, shortness of breath, SOB with excertion, SOB at rest, sputum, wheezing, other Gastrointestinal/Abdominal: Denies: no symptoms, abdomen distended, abdominal pain, black stools, tarry stools, blood in stool, constipated, diarrhea, difficulty swallowing, nausea, poor appetite, poor fluid intake, rectal bleeding , vomiting, other Neurologic/Psychiatric: Denies: no symptoms, anxiety, depressed, emotional problems, headache, numbness, paresthesia, pre-existing deficit, seizure, tingling, tremors, weakness, other Endocrine: Denies: no symptoms, excessive sweating, flushing, intolerance to cold, intolerance to heat, increased hunger, increased thirst, increased urine, unexplained weight gain, unexplained weight loss, other Allergies: Coded Allergies: No Known Allergies (Unverified , 11/06/19) Subjective 11/09 weaning prn, meds reviewed, labs noted, hgb 9.2 11/10 on vent, no bleeding, hgb remains low, jimena Rn Jose R in am 11/11 on vent, fluids, ogf tube as well, labs pending in am 11/12 remains altered, no bleeding, labs reviewed, cbc noted 11/13 attempted weaning, but did not do well, no bleeding, hgb 10 11/14 intubated, weaning, on vent, with og, labs noted, abx 11/15 labs noted, no bleedign, weaning protocol, no night sweats, elev wbc, with fevers 11/16 no bleeding, jimena Broussard rn in the am, on vent, weaning but failed 11/17 meds reviewed, no night sweats, jimena rn, no bleeding 11/18 extubated, on nc at this time, no bleeding, meds reviewed 11/19 labs noted, no bleeding, on vent again, weaning 11/21 labs reviewed, hgb 9.4, no hemolysis, very difficult to obtain repeat lab draw in am 11/22 unable to wean vent, labs noted, plan for trach tomorrow, on fentanyl, still edematous 11/23 is for trach today and peg tomorrow, stil edematous, on lasix gtt 11/24 meds noted, no bleeding, on vent, for peg this am, trach functional Objective Objective Current Medications Medications (Trade) Dose Ordered Sig/Robyn Route PRN Reason Start Time Stop Time Status Last Admin Dose Admin Acetaminophen (Tylenol) 650 mg Q6H PRN GT Temp >100.5 11/24/19 13:30 12/12/19 00:14 Amiodarone HCl (Cordarone) 400 mg EVERY 12 HOURS GT 11/24/19 21:00 02/18/20 09:29 11/25/19 08:08 Chlorhexidine Gluconate (Miya-Hex 2%) 1 applic DAILY@2000 TOPIC 11/08/19 21:30 02/06/20 21:29 11/24/19 21:20 Clonidine HCl (Catapres Tab) 0.1 mg Q4H PRN GT For High Blood Pressure 11/24/19 13:30 02/09/20 10:59 Dextrose (Dextrose 50%) 25 ml Q30M PRN IV Hypoglycemia 11/23/19 06:45 02/21/20 06:44 Dextrose (Dextrose 50%) 50 ml Q30M PRN IV Hypoglycemia 11/23/19 06:45 02/21/20 06:44 Docusate Sodium (Colace) 100 mg EVERY 12 HOURS GT 11/25/19 09:00 12/23/19 08:59 11/25/19 08:07 Dopamine HCl/ Dextrose 250 ml @ 0 mls/hr Q24H IV 11/19/19 18:36 02/17/20 18:35 11/19/19 18:41 Famotidine (Pepcid I.v.) 20 mg Q12HR IVP 11/08/19 15:30 12/08/19 15:29 11/25/19 08:07 Fentanyl Citrate 250 ml @ 0 mls/hr Q24H IV 11/24/19 11:30 02/17/20 11:29 11/25/19 08:02 Folic Acid (Folate) 2 mg DAILY GT 11/25/19 09:00 12/15/19 08:59 11/25/19 08:07 Insulin Aspart (NovoLOG) EVERY 6 HOURS SUBQ 11/15/19 12:00 02/11/20 20:59 11/23/19 23:59 Insulin Detemir (Levemir) 12 units BID SUBQ 11/24/19 09:00 02/21/20 08:59 11/24/19 17:37 Lorazepam (Ativan 2mg/ml 1ml) 1 mg Q4H PRN IV For Anxiety 11/21/19 11:00 11/28/19 10:59 11/22/19 03:46 Methylprednisolone Sodium Succinate (Solu-MEDROL) 20 mg EVERY 12 HOURS IVP 11/21/19 21:00 02/18/20 20:59 11/25/19 08:07 Metoprolol Tartrate (Lopressor) 25 mg Q12HR GT 11/24/19 21:00 02/18/20 09:29 11/25/19 08:07 Norepinephrine Bitartrate 250 ml @ 0 mls/hr Q24H IV 11/19/19 19:49 02/17/20 19:48 Piperacillin Sod/ Tazobactam Sod 3.375 gm/Sodium Chloride 110 ml @ 27.5 mls/hr EVERY 8 HOURS IVPB 11/24/19 12:00 11/29/19 11:59 11/25/19 06:10 Last 24 Hour Vital Signs Date Time Temp Pulse Resp B/P (MAP) Pulse Ox O2 Delivery O2 Flow Rate FiO2 11/25/19 08:15 69 20 100 11/25/19 08:07 69 127/71 11/25/19 08:02 19 125/56 Mechanical Ventilator 45 11/25/19 07:00 15 129/59 Mechanical Ventilator 40 11/25/19 07:00 72 14 129/59 (82) 99 11/25/19 06:15 72 14 142/65 (90) 100 11/25/19 06:00 71 14 143/76 (98) 100 11/25/19 06:00 14 143/76 Mechanical Ventilator 80 11/25/19 05:45 70 14 125/60 (81) 100 11/25/19 05:30 73 14 145/88 (107) 100 11/25/19 05:15 72 14 136/60 (85) 100 11/25/19 05:00 14 131/64 Mechanical Ventilator 80 11/25/19 05:00 69 14 131/64 (86) 100 11/25/19 04:45 70 14 137/61 (86) 99 11/25/19 04:30 72 15 160/78 (105) 98 11/25/19 04:15 75 17 179/89 (119) 98 11/25/19 04:03 61 11/25/19 04:00 Mechanical Ventilator Mechanical Ventilator Mechanical Ventilator 11/25/19 04:00 65 15 111/61 (78) 97 11/25/19 04:00 45 11/25/19 04:00 14 111/61 Mechanical Ventilator 80 11/25/19 03:45 65 15 116/57 (76) 97 11/25/19 03:30 65 15 123/56 (78) 97 11/25/19 03:22 62 15 45 11/25/19 03:15 66 15 130/68 (88) 97 11/25/19 03:00 15 111/64 Mechanical Ventilator 80 11/25/19 03:00 67 15 111/64 (80) 97 11/25/19 02:30 65 15 110/51 (70) 97 11/25/19 02:15 66 15 116/64 (81) 97 11/25/19 02:00 16 145/78 Mechanical Ventilator 80 11/25/19 02:00 68 15 145/78 (100) 97 11/25/19 01:45 64 15 94/49 (64) 97 11/25/19 01:30 63 15 111/54 (73) 97 11/25/19 01:15 62 15 99/55 (70) 97 11/25/19 01:00 14 100/49 Mechanical Ventilator 80 11/25/19 01:00 62 15 100/49 (66) 97 11/25/19 00:45 62 15 100/54 (69) 97 11/25/19 00:30 61 15 100/53 (69) 97 11/25/19 00:15 62 15 105/55 (72) 97 11/25/19 00:00 Mechanical Ventilator Mechanical Ventilator Mechanical Ventilator 11/25/19 00:00 45 11/25/19 00:00 15 103/52 Mechanical Ventilator 80 11/25/19 00:00 98.1 62 15 103/52 (69) 97 11/24/19 23:45 63 15 109/58 (75) 97 11/24/19 23:33 57 11/24/19 23:30 62 15 101/56 (71) 97 11/24/19 23:30 66 15 45 11/24/19 23:15 62 15 106/60 (75) 97 11/24/19 23:00 15 100/55 Mechanical Ventilator 40 11/24/19 23:00 61 15 100/55 (70) 97 11/24/19 22:45 62 15 110/52 (71) 97 11/24/19 22:30 61 15 109/57 (74) 98 11/24/19 22:15 61 15 100/50 (67) 98 8/4/20 22:00 15 105/55 Mechanical Ventilator 40 8/20 22:00 62 15 105/55 (72) 98 8//20 21:45 64 15 107/49 (68) 98 8//20 21:30 64 15 99/56 (70) 98 8/4/20 21:23 20 116/60 Mechanical Ventilator 80 8//20 21:21 67 115/50 8//20 21:15 66 15 115/60 (78) 98 8//20 21:00 15 114/55 Mechanical Ventilator 40 820 21:00 67 15 114/55 (74) 98 8//20 20:45 67 15 116/67 (83) 98 8//20 20:35 70 8/20 20:30 66 15 103/58 (73) 98 8/20 20:15 65 15 99/57 (71) 98 820 20:00 98.2 66 15 101/53 (69) 98 820 20:00 15 101/53 Mechanical Ventilator 40 820 20:00 45 820 20:00 Mechanical Ventilator Mechanical Ventilator Mechanical Ventilator 11/24/19 19:49 103/58 8 19:45 66 15 111/55 (73) 98 820 19:30 67 15 110/61 (77) 99 8//20 19:30 65 16 45 8/20 19:15 69 15 103/53 (70) 98 8/20 19:00 71 15 104/55 (71) 99 820 19:00 15 101/57 Mechanical Ventilator 45 820 18:36 103/53 8//20 18:30 68 15 110/56 (74) 99 8//20 18:15 68 15 106/63 (77) 99 8//20 18:00 16 120/60 Mechanical Ventilator 45 820 18:00 71 15 110/73 (85) 99 8//20 17:45 72 15 120/60 (80) 98 8//20 17:30 65 15 102/60 (74) 99 8//20 17:15 68 16 112/55 (74) 97 8/4/20 17:00 16 107/71 Mechanical Ventilator 45 11/24/19 17:00 71 15 121/65 (83) 97 11/24/19 16:45 70 16 107/71 (83) 97 11/24/19 16:30 72 16 117/70 (86) 97 11/24/19 16:15 72 16 115/67 (83) 97 11/24/19 16:00 98.7 83 16 111/72 (85) 98 11/24/19 16:00 Mechanical Ventilator Mechanical Ventilator Mechanical Ventilator 11/24/19 16:00 16 116/67 Mechanical Ventilator 45 11/24/19 16:00 69 11/24/19 16:00 45 11/24/19 15:49 87 18 45 11/24/19 15:49 74 14 100 11/24/19 15:45 45 11/24/19 15:45 81 14 105/73 (84) 99 11/24/19 14:30 84 14 141/79 (99) 97 11/24/19 14:00 83 14 137/90 (106) 96 11/24/19 14:00 15 144/96 Mechanical Ventilator 45 11/24/19 13:30 79 15 134/84 (101) 95 11/24/19 13:00 14 129/80 Mechanical Ventilator 45 11/24/19 13:00 77 14 129/80 (96) 96 11/24/19 12:00 Mechanical Ventilator Mechanical Ventilator Mechanical Ventilator 11/24/19 12:00 14 127/78 Mechanical Ventilator 45 11/24/19 12:00 98.8 77 14 127/78 (94) 94 11/24/19 12:00 45 11/24/19 12:00 76 11/24/19 11:30 77 14 134/91 (105) 94 11/24/19 11:28 14 138/75 Mechanical Ventilator 45 11/24/19 11:10 81 16 45 11/24/19 11:10 81 16 94 Mechanical Ventilator 100 11/24/19 11:00 76 14 138/75 (96) 94 11/24/19 10:43 16 137/89 Mechanical Ventilator 45 11/24/19 10:30 77 15 137/89 (105) 94 11/24/19 10:00 75 17 135/93 (107) 94 11/24/19 09:30 78 14 139/83 (101) 100 11/24/19 09:05 78 140/74 11/24/19 09:00 77 14 132/82 (99) 100 11/24/19 08:30 78 14 137/75 (95) 100 11/24/19 08:00 98.5 76 14 132/77 (95) 100 11/24/19 08:00 45 11/24/19 08:00 72 11/24/19 08:00 Mechanical Ventilator Mechanical Ventilator 11/24/19 07:30 77 14 136/76 (96) 99 11/24/19 07:25 79 14 45 11/24/19 07:00 14 121/61 Mechanical Ventilator 45 11/24/19 07:00 89.7 77 14 121/68 (85) 100 11/24/19 06:30 74 14 11/24/19 06:00 14 132/73 Mechanical Ventilator 45 11/24/19 06:00 78 12 133/73 (93) 100 11/24/19 05:30 77 13 121/76 (91) 100 11/24/19 05:15 81 13 135/80 (98) 99 11/24/19 05:00 83 11 145/83 (103) 100 11/24/19 05:00 14 145/83 Mechanical Ventilator 45 11/24/19 04:45 82 14 152/75 (100) 100 11/24/19 04:30 98.6 85 13 146/75 (98) 100 11/24/19 04:30 13 146/75 Mechanical Ventilator 45 11/24/19 04:00 45 11/24/19 04:00 Mechanical Ventilator Mechanical Ventilator 11/24/19 04:00 11 114/70 Mechanical Ventilator 45 11/24/19 04:00 77 11 114/70 (85) 95 11/24/19 04:00 81 11/24/19 03:30 78 15 117/68 (84) 92 11/24/19 03:13 81 14 40 11/24/19 03:00 16 120/75 Mechanical Ventilator 45 11/24/19 03:00 83 16 120/75 (90) 90 11/24/19 02:30 99.1 82 14 126/73 (90) 92 11/24/19 02:00 16 123/71 Mechanical Ventilator 40 11/24/19 02:00 84 16 123/71 (88) 96 11/24/19 01:30 85 17 128/86 (100) 95 11/24/19 01:11 16 136/88 Mechanical Ventilator 40 11/24/19 01:00 83 12 132/88 (103) 96 11/24/19 01:00 14 132/88 Mechanical Ventilator 40 11/24/19 00:30 88 13 132/94 (107) 97 11/24/19 00:00 40 11/24/19 00:00 Mechanical Ventilator Mechanical Ventilator 11/24/19 00:00 95 11/24/19 00:00 88 16 121/70 (87) 92 11/24/19 00:00 13 132/94 Mechanical Ventilator 40 11/23/19 23:00 14 139/94 Mechanical Ventilator 40 11/23/19 23:00 91 14 139/94 (109) 94 11/23/19 22:54 104 14 40 11/23/19 22:30 88 14 142/93 (109) 93 11/23/19 22:00 87 16 133/99 (110) 96 11/23/19 22:00 16 133/99 Mechanical Ventilator 40 11/23/19 21:30 89 16 133/87 (102) 94 11/23/19 21:00 92 14 136/86 (103) 99 11/23/19 21:00 14 136/86 Mechanical Ventilator 40 11/23/19 20:36 90 131/90 11/23/19 20:30 92 11 131/90 (104) 98 11/23/19 20:00 91 11/23/19 20:00 12 148/86 Mechanical Ventilator 40 11/23/19 20:00 98.6 92 12 148/86 (106) 100 11/23/19 20:00 Mechanical Ventilator Mechanical Ventilator 11/23/19 20:00 40 11/23/19 19:30 95 16 138/76 (96) 100 11/23/19 19:11 93 14 40 11/23/19 19:00 98 14 156/81 (106) 98 11/23/19 19:00 14 156/81 Mechanical Ventilator 40 11/23/19 18:30 102 12 145/98 (114) 94 11/23/19 18:15 101 14 133/76 (95) 94 11/23/19 18:00 104 16 157/87 (110) 95 11/23/19 18:00 16 157/87 Mechanical Ventilator 40 11/23/19 17:30 112 17 151/95 (113) 98 11/23/19 17:10 16 168/97 Mechanical Ventilator 40 11/23/19 17:00 108 11 168/97 (120) 97 11/23/19 17:00 14 168/97 Mechanical Ventilator 40 11/23/19 16:47 172/108 11/23/19 16:30 110 14 170/108 (128) 98 11/23/19 16:00 98.4 109 16 172/119 (136) 99 11/23/19 16:00 79 11/23/19 16:00 14 172/119 Mechanical Ventilator 40 11/23/19 16:00 40 11/23/19 16:00 Mechanical Ventilator Mechanical Ventilator 11/23/19 15:30 111 12 181/99 (126) 91 11/23/19 15:07 109 15 40 11/23/19 15:00 107 14 176/110 (132) 98 11/23/19 15:00 14 175/110 Mechanical Ventilator 40 11/23/19 14:30 100 13 163/101 (121) 98 11/23/19 14:00 14 167/78 Mechanical Ventilator 40 11/23/19 14:00 97 15 167/78 (107) 99 11/23/19 13:30 94 20 164/77 (106) 97 94 11/23/19 13:00 14 144/81 Mechanical Ventilator 40 11/23/19 13:00 88 20 144/81 (102) 99 88 11/23/19 12:30 88 20 159/110 (126) 94 88 11/23/19 12:00 98.6 84 20 145/82 (103) 92 84 11/23/19 12:00 40 11/23/19 12:00 79 11/23/19 12:00 Mechanical Ventilator Mechanical Ventilator 11/23/19 12:00 14 145/82 Mechanical Ventilator 40 11/23/19 11:30 78 20 138/72 (94) 96 78 11/23/19 11:15 79 20 138/83 (101) 98 79 11/23/19 11:00 78 20 138/85 (102) 99 78 11/23/19 11:00 14 138/85 Mechanical Ventilator 40 11/23/19 10:44 73 14 40 11/23/19 10:30 68 20 116/67 (83) 100 68 11/23/19 10:00 75 20 125/69 (87) 100 75 11/23/19 10:00 20 125/69 Mechanical Ventilator 40 11/23/19 09:52 40 11/23/19 09:30 75 20 134/72 (92) 100 75 11/23/19 09:00 71 20 139/88 (105) 83 71 11/23/19 09:00 20 139/88 Mechanical Ventilator 40 11/23/19 08:30 78 20 119/65 (83) 97 78 11/23/19 08:30 98.6 Intake and Output 11/24/19 11/25/19 19:00 07:00 Intake Total 584.20894 ml 415.59085 ml Output Total 1400 ml 1430 ml Balance -815.56110 ml -1014.94534 ml Free Water 70 ml IV Total 444.94311 ml 415.85124 ml Other 70 ml Output Urine Total 1400 ml 1430 ml Labs Test 11/23/19 05:17 11/23/19 05:38 11/24/19 03:55 11/24/19 07:14 White Blood Count 13.9 K/UL (4.8-10.8) 13.9 K/UL (4.8-10.8) Red Blood Count 4.10 M/UL (4.20-5.40) 3.70 M/UL (4.20-5.40) Hemoglobin 10.8 G/DL (12.0-16.0) 9.8 G/DL (12.0-16.0) Hematocrit 36.7 % (37.0-47.0) 33.4 % (37.0-47.0) Mean Corpuscular Volume 90 FL (80-99) 90 FL (80-99) Mean Corpuscular Hemoglobin 26.3 PG (27.0-31.0) 26.4 PG (27.0-31.0) Mean Corpuscular Hemoglobin Concent 29.4 G/DL (32.0-36.0) 29.3 G/DL (32.0-36.0) Red Cell Distribution Width 17.5 % (11.6-14.8) 17.4 % (11.6-14.8) Platelet Count 245 K/UL (150-450) 224 K/UL (150-450) Mean Platelet Volume 6.9 FL (6.5-10.1) 6.3 FL (6.5-10.1) Neutrophils (%) (Auto) % (45.0-75.0) % (45.0-75.0) Lymphocytes (%) (Auto) % (20.0-45.0) % (20.0-45.0) Monocytes (%) (Auto) % (1.0-10.0) % (1.0-10.0) Eosinophils (%) (Auto) % (0.0-3.0) % (0.0-3.0) Basophils (%) (Auto) % (0.0-2.0) % (0.0-2.0) Differential Total Cells Counted 100 100 Neutrophils % (Manual) 97 % (45-75) 95 % (45-75) Lymphocytes % (Manual) 2 % (20-45) 1 % (20-45) Monocytes % (Manual) 1 % (1-10) 4 % (1-10) Eosinophils % (Manual) 0 % (0-3) 0 % (0-3) Basophils % (Manual) 0 % (0-2) 0 % (0-2) Band Neutrophils 0 % (0-8) 0 % (0-8) Nucleated Red Blood Cells 1 /100 WBC Platelet Estimate Adequate Adequate Platelet Morphology Normal Normal Hypochromasia 1+ 1+ Anisocytosis 1+ 1+ Sodium Level 146 MMOL/L (136-145) 145 MMOL/L (136-145) Potassium Level 4.2 MMOL/L (3.5-5.1) 4.0 MMOL/L (3.5-5.1) Chloride Level 106 MMOL/L (98-107) 106 MMOL/L (98-107) Carbon Dioxide Level 33 MMOL/L (21-32) 34 MMOL/L (21-32) Anion Gap 7 mmol/L (5-15) 5 mmol/L (5-15) Blood Urea Nitrogen 45 mg/dL (7-18) 54 mg/dL (7-18) Creatinine 1.0 MG/DL (0.55-1.30) 1.4 MG/DL (0.55-1.30) Estimat Glomerular Filtration Rate 58.0 mL/min (>60) 39.3 mL/min (>60) Glucose Level 321 MG/DL (74-106) 191 MG/DL (74-106) Calcium Level 8.7 MG/DL (8.5-10.1) 8.9 MG/DL (8.5-10.1) POC Whole Blood Glucose 316 MG/DL (74-106) Prothrombin Time 11.5 SEC (9.30-11.50) Prothromb Time International Ratio 1.0 (0.9-1.1) Activated Partial Thromboplast Time 25 SEC (23-33) Phosphorus Level 4.5 MG/DL (2.5-4.9) Magnesium Level 2.1 MG/DL (1.8-2.4) Total Bilirubin 0.9 MG/DL (0.2-1.0) Aspartate Amino Transf (AST/SGOT) 35 U/L (15-37) Alanine Aminotransferase (ALT/SGPT) 37 U/L (12-78) Alkaline Phosphatase 213 U/L (46-116) C-Reactive Protein, Quantitative 4.7 mg/dL (0.00-0.90) Pro-B-Type Natriuretic Peptide 9387 pg/mL (0-125) Total Protein 6.9 G/DL (6.4-8.2) Albumin 2.3 G/DL (3.4-5.0) Globulin 4.6 g/dL Albumin/Globulin Ratio 0.5 (1.0-2.7) Arterial Blood pH 7.372 (7.350-7.450) Arterial Blood Partial Pressure CO2 60.3 mmHg (35.0-45.0) Arterial Blood Partial Pressure O2 107.8 mmHg (75.0-100.0) Arterial Blood HCO3 34.2 mmol/L (22.0-26.0) Arterial Blood Oxygen Saturation 97.8 % (95-100) Arterial Blood Base Excess 7.4 (-2-2) Steve Test Positive Test 11/24/19 09:01 11/24/19 12:40 POC Whole Blood Glucose 175 MG/DL (74-106) Height (Feet): 5 Height (Inches): 1.00 Weight (Pounds): 338 Objective Physical Exam: Vitals: reviewed General: NAD HEENT: nc, at Neck: supple Chest: clear breath sounds on vent++trach+ Cardiovascular: RRR, no s3, s4 Abdomen: soft, nontender, nd Extremities: no cce, normal range of motion Neuro: alert and oriented Ismael Fischer MD Nov 25, 2019 08:22
--- NOTE | 2019-11-25 09:24 | General Progress Note ---
Assessment/Plan Problem List: (1) Afib ICD Codes: I48.91 - Unspecified atrial fibrillation SNOMED: 97536580 (2) Epistaxis ICD Codes: R04.0 - Epistaxis SNOMED: 840776935 (3) Weak ICD Codes: R53.1 - Weakness SNOMED: 20369931 (4) UTI (urinary tract infection) ICD Codes: N39.0 - Urinary tract infection, site not specified SNOMED: 63113376 (5) Diabetes ICD Codes: E11.9 - Type 2 diabetes mellitus without complications SNOMED: 19944016 (6) CHF (congestive heart failure) ICD Codes: I50.9 - Heart failure, unspecified SNOMED: 34095774 (7) Multifocal pneumonia ICD Codes: J18.9 - Pneumonia, unspecified organism SNOMED: 690780862 (8) 2019 novel coronavirus disease (COVID-19) ICD Codes: U07.1 - COVID-19 SNOMED: 211050688 (9) Respiratory failure ICD Codes: J96.90 - Respiratory failure, unspecified, unspecified whether with hypoxia or hypercapnia SNOMED: 507869464 Status: unchanged Assessment/Plan: vent abx bp bs control cbc bmp am Subjective Constitutional: Reports: weakness Allergies: Coded Allergies: No Known Allergies (Unverified , 11/06/19) All Systems: reviewed and negative except above Subjective trach vent ng in icu Objective Last 24 Hour Vital Signs Date Time Temp Pulse Resp B/P (MAP) Pulse Ox O2 Delivery O2 Flow Rate FiO2 11/25/19 08:30 83 15 159/88 (111) 100 11/25/19 08:15 81 15 182/75 (110) 100 11/25/19 08:15 69 20 100 11/25/19 08:09 62 11/25/19 08:07 69 127/71 11/25/19 08:02 19 125/56 Mechanical Ventilator 45 11/25/19 08:00 98.2 71 14 127/71 (89) 99 11/25/19 08:00 14 125/56 Mechanical Ventilator 45 11/25/19 08:00 Mechanical Ventilator Mechanical Ventilator Mechanical Ventilator 11/25/19 08:00 45 11/25/19 07:45 70 14 125/56 (79) 99 11/25/19 07:30 71 14 121/57 (78) 99 11/25/19 07:22 84 14 45 11/25/19 07:15 70 14 126/76 (93) 99 11/25/19 07:00 15 129/59 Mechanical Ventilator 40 11/25/19 07:00 72 14 129/59 (82) 99 11/25/19 06:15 72 14 142/65 (90) 100 11/25/19 06:00 71 14 143/76 (98) 100 11/25/19 06:00 14 143/76 Mechanical Ventilator 80 11/25/19 05:45 70 14 125/60 (81) 100 11/25/19 05:30 73 14 145/88 (107) 100 11/25/19 05:15 72 14 136/60 (85) 100 11/25/19 05:00 14 131/64 Mechanical Ventilator 80 11/25/19 05:00 69 14 131/64 (86) 100 11/25/19 04:45 70 14 137/61 (86) 99 11/25/19 04:30 72 15 160/78 (105) 98 11/25/19 04:15 75 17 179/89 (119) 98 11/25/19 04:03 61 11/25/19 04:00 Mechanical Ventilator Mechanical Ventilator Mechanical Ventilator 11/25/19 04:00 65 15 111/61 (78) 97 11/25/19 04:00 45 11/25/19 04:00 14 111/61 Mechanical Ventilator 80 11/25/19 03:45 65 15 116/57 (76) 97 11/25/19 03:30 65 15 123/56 (78) 97 11/25/19 03:22 62 15 45 11/25/19 03:15 66 15 130/68 (88) 97 11/25/19 03:00 15 111/64 Mechanical Ventilator 80 11/25/19 03:00 67 15 111/64 (80) 97 11/25/19 02:30 65 15 110/51 (70) 97 11/25/19 02:15 66 15 116/64 (81) 97 11/25/19 02:00 16 145/78 Mechanical Ventilator 80 11/25/19 02:00 68 15 145/78 (100) 97 11/25/19 01:45 64 15 94/49 (64) 97 11/25/19 01:30 63 15 111/54 (73) 97 11/25/19 01:15 62 15 99/55 (70) 97 11/25/19 01:00 14 100/49 Mechanical Ventilator 80 11/25/19 01:00 62 15 100/49 (66) 97 11/25/19 00:45 62 15 100/54 (69) 97 11/25/19 00:30 61 15 100/53 (69) 97 11/25/19 00:15 62 15 105/55 (72) 97 11/25/19 00:00 Mechanical Ventilator Mechanical Ventilator Mechanical Ventilator 11/25/19 00:00 45 11/25/19 00:00 15 103/52 Mechanical Ventilator 80 11/25/19 00:00 98.1 62 15 103/52 (69) 97 11/24/19 23:45 63 15 109/58 (75) 97 11/24/19 23:33 57 11/24/19 23:30 62 15 101/56 (71) 97 11/24/19 23:30 66 15 45 11/24/19 23:15 62 15 106/60 (75) 97 11/24/19 23:00 15 100/55 Mechanical Ventilator 40 11/24/19 23:00 61 15 100/55 (70) 97 11/24/19 22:45 62 15 110/52 (71) 97 11/24/19 22:30 61 15 109/57 (74) 98 11/24/19 22:15 61 15 100/50 (67) 98 11/24/19 22:00 15 105/55 Mechanical Ventilator 40 11/24/19 22:00 62 15 105/55 (72) 98 11/24/19 21:45 64 15 107/49 (68) 98 11/24/19 21:30 64 15 99/56 (70) 98 20 21:23 20 116/60 Mechanical Ventilator 80 11/24/19 21:21 67 115/50 8/20 21:15 66 15 115/60 (78) 98 820 21:00 15 114/55 Mechanical Ventilator 40 11/24/19 21:00 67 15 114/55 (74) 98 20 20:45 67 15 116/67 (83) 98 11/24/19 20:35 70 8 20:30 66 15 103/58 (73) 98 8/4/20 20:15 65 15 99/57 (71) 98 11/24/19 20:00 98.2 66 15 101/53 (69) 98 11/24/19 20:00 15 101/53 Mechanical Ventilator 40 11/24/19 20:00 45 11/24/19 20:00 Mechanical Ventilator Mechanical Ventilator Mechanical Ventilator 11/24/19 19:49 103/58 11/24/19 19:45 66 15 111/55 (73) 98 11/24/19 19:30 67 15 110/61 (77) 99 11/24/19 19:30 65 16 45 11/24/19 19:15 69 15 103/53 (70) 98 11/24/19 19:00 71 15 104/55 (71) 99 11/24/19 19:00 15 101/57 Mechanical Ventilator 45 11/24/19 18:36 103/53 11/24/19 18:30 68 15 110/56 (74) 99 11/24/19 18:15 68 15 106/63 (77) 99 11/24/19 18:00 16 120/60 Mechanical Ventilator 45 11/24/19 18:00 71 15 110/73 (85) 99 11/24/19 17:45 72 15 120/60 (80) 98 11/24/19 17:30 65 15 102/60 (74) 99 11/24/19 17:15 68 16 112/55 (74) 97 11/24/19 17:00 16 107/71 Mechanical Ventilator 45 11/24/19 17:00 71 15 121/65 (83) 97 11/24/19 16:45 70 16 107/71 (83) 97 11/24/19 16:30 72 16 117/70 (86) 97 11/24/19 16:15 72 16 115/67 (83) 97 11/24/19 16:00 98.7 83 16 111/72 (85) 98 11/24/19 16:00 Mechanical Ventilator Mechanical Ventilator Mechanical Ventilator 11/24/19 16:00 16 116/67 Mechanical Ventilator 45 11/24/19 16:00 69 11/24/19 16:00 45 11/24/19 15:49 87 18 45 11/24/19 15:49 74 14 100 11/24/19 15:45 45 11/24/19 15:45 81 14 105/73 (84) 99 11/24/19 14:30 84 14 141/79 (99) 97 11/24/19 14:00 83 14 137/90 (106) 96 11/24/19 14:00 15 144/96 Mechanical Ventilator 45 11/24/19 13:30 79 15 134/84 (101) 95 11/24/19 13:00 14 129/80 Mechanical Ventilator 45 11/24/19 13:00 77 14 129/80 (96) 96 11/24/19 12:00 Mechanical Ventilator Mechanical Ventilator Mechanical Ventilator 11/24/19 12:00 14 127/78 Mechanical Ventilator 45 11/24/19 12:00 98.8 77 14 127/78 (94) 94 11/24/19 12:00 45 11/24/19 12:00 76 11/24/19 11:30 77 14 134/91 (105) 94 11/24/19 11:28 14 138/75 Mechanical Ventilator 45 11/24/19 11:10 81 16 45 11/24/19 11:10 81 16 94 Mechanical Ventilator 100 11/24/19 11:00 76 14 138/75 (96) 94 11/24/19 10:43 16 137/89 Mechanical Ventilator 45 11/24/19 10:30 77 15 137/89 (105) 94 11/24/19 10:00 75 17 135/93 (107) 94 11/24/19 09:30 78 14 139/83 (101) 100 Intake and Output 11/24/19 11/25/19 19:00 07:00 Intake Total 584.54816 ml 415.31798 ml Output Total 1400 ml 1430 ml Balance -815.63125 ml -1014.27608 ml Free Water 70 ml IV Total 444.05184 ml 415.80174 ml Other 70 ml Output Urine Total 1400 ml 1430 ml Laboratory Tests 11/24/19 12:40: POC Whole Blood Glucose [Pending] Height (Feet): 5 Height (Inches): 1.00 Weight (Pounds): 338 General Appearance: lethargic EENT: normal ENT inspection Neck: normal alignment Cardiovascular: normal rate, regular rhythm Respiratory/Chest: no respiratory distress, no accessory muscle use Skin: normal pigmentation Gustabo Carter DO Nov 25, 2019 09:24
--- NOTE | 2019-11-25 09:37 | Surgery Progress Note ---
Surgery Progress Note Subjective Procedure Performed tracheostomy Additional Comments doing well since trach comfortable appearing Objective Last 24 Hour Vital Signs Date Time Temp Pulse Resp B/P (MAP) Pulse Ox O2 Delivery O2 Flow Rate FiO2 11/25/19 09:15 76 14 143/64 (90) 100 11/25/19 09:00 15 148/65 Mechanical Ventilator 45 11/25/19 09:00 76 15 148/65 (92) 100 11/25/19 08:45 80 16 167/76 (106) 100 11/25/19 08:30 83 15 159/88 (111) 100 11/25/19 08:15 81 15 182/75 (110) 100 11/25/19 08:15 69 20 100 11/25/19 08:09 62 11/25/19 08:07 69 127/71 11/25/19 08:02 19 125/56 Mechanical Ventilator 45 11/25/19 08:00 98.2 71 14 127/71 (89) 99 11/25/19 08:00 14 125/56 Mechanical Ventilator 45 11/25/19 08:00 Mechanical Ventilator Mechanical Ventilator Mechanical Ventilator 11/25/19 08:00 45 11/25/19 07:45 70 14 125/56 (79) 99 11/25/19 07:30 71 14 121/57 (78) 99 11/25/19 07:22 84 14 45 11/25/19 07:15 70 14 126/76 (93) 99 11/25/19 07:00 15 129/59 Mechanical Ventilator 40 11/25/19 07:00 72 14 129/59 (82) 99 11/25/19 06:15 72 14 142/65 (90) 100 11/25/19 06:00 71 14 143/76 (98) 100 11/25/19 06:00 14 143/76 Mechanical Ventilator 80 11/25/19 05:45 70 14 125/60 (81) 100 11/25/19 05:30 73 14 145/88 (107) 100 11/25/19 05:15 72 14 136/60 (85) 100 11/25/19 05:00 14 131/64 Mechanical Ventilator 80 11/25/19 05:00 69 14 131/64 (86) 100 11/25/19 04:45 70 14 137/61 (86) 99 11/25/19 04:30 72 15 160/78 (105) 98 11/25/19 04:15 75 17 179/89 (119) 98 11/25/19 04:03 61 11/25/19 04:00 Mechanical Ventilator Mechanical Ventilator Mechanical Ventilator 11/25/19 04:00 65 15 111/61 (78) 97 11/25/19 04:00 45 11/25/19 04:00 14 111/61 Mechanical Ventilator 80 11/25/19 03:45 65 15 116/57 (76) 97 11/25/19 03:30 65 15 123/56 (78) 97 11/25/19 03:22 62 15 45 11/25/19 03:15 66 15 130/68 (88) 97 11/25/19 03:00 15 111/64 Mechanical Ventilator 80 11/25/19 03:00 67 15 111/64 (80) 97 11/25/19 02:30 65 15 110/51 (70) 97 11/25/19 02:15 66 15 116/64 (81) 97 11/25/19 02:00 16 145/78 Mechanical Ventilator 80 11/25/19 02:00 68 15 145/78 (100) 97 11/25/19 01:45 64 15 94/49 (64) 97 11/25/19 01:30 63 15 111/54 (73) 97 11/25/19 01:15 62 15 99/55 (70) 97 11/25/19 01:00 14 100/49 Mechanical Ventilator 80 11/25/19 01:00 62 15 100/49 (66) 97 11/25/19 00:45 62 15 100/54 (69) 97 11/25/19 00:30 61 15 100/53 (69) 97 11/25/19 00:15 62 15 105/55 (72) 97 11/25/19 00:00 Mechanical Ventilator Mechanical Ventilator Mechanical Ventilator 11/25/19 00:00 45 11/25/19 00:00 15 103/52 Mechanical Ventilator 80 11/25/19 00:00 98.1 62 15 103/52 (69) 97 11/24/19 23:45 63 15 109/58 (75) 97 11/24/19 23:33 57 11/24/19 23:30 62 15 101/56 (71) 97 11/24/19 23:30 66 15 45 11/24/19 23:15 62 15 106/60 (75) 97 8//20 23:00 15 100/55 Mechanical Ventilator 40 8/20 23:00 61 15 100/55 (70) 97 8//20 22:45 62 15 110/52 (71) 97 8//20 22:30 61 15 109/57 (74) 98 8/4/20 22:15 61 15 100/50 (67) 98 8/20 22:00 15 105/55 Mechanical Ventilator 40 820 22:00 62 15 105/55 (72) 98 8//20 21:45 64 15 107/49 (68) 98 8//20 21:30 64 15 99/56 (70) 98 8/20 21:23 20 116/60 Mechanical Ventilator 80 820 21:21 67 115/50 8//20 21:15 66 15 115/60 (78) 98 8//20 21:00 15 114/55 Mechanical Ventilator 40 820 21:00 67 15 114/55 (74) 98 8/20 20:45 67 15 116/67 (83) 98 8//20 20:35 70 8/20 20:30 66 15 103/58 (73) 98 8//20 20:15 65 15 99/57 (71) 98 820 20:00 98.2 66 15 101/53 (69) 98 8//20 20:00 15 101/53 Mechanical Ventilator 40 820 20:00 45 820 20:00 Mechanical Ventilator Mechanical Ventilator Mechanical Ventilator 11/24/19 19:49 103/58 8/20 19:45 66 15 111/55 (73) 98 8//20 19:30 67 15 110/61 (77) 99 8//20 19:30 65 16 45 8//20 19:15 69 15 103/53 (70) 98 8//20 19:00 71 15 104/55 (71) 99 8/4/20 19:00 15 101/57 Mechanical Ventilator 45 8/20 18:36 103/53 8//20 18:30 68 15 110/56 (74) 99 8//20 18:15 68 15 106/63 (77) 99 8/4/20 18:00 16 120/60 Mechanical Ventilator 45 11/24/19 18:00 71 15 110/73 (85) 99 11/24/19 17:45 72 15 120/60 (80) 98 11/24/19 17:30 65 15 102/60 (74) 99 11/24/19 17:15 68 16 112/55 (74) 97 11/24/19 17:00 16 107/71 Mechanical Ventilator 45 11/24/19 17:00 71 15 121/65 (83) 97 11/24/19 16:45 70 16 107/71 (83) 97 11/24/19 16:30 72 16 117/70 (86) 97 11/24/19 16:15 72 16 115/67 (83) 97 11/24/19 16:00 98.7 83 16 111/72 (85) 98 11/24/19 16:00 Mechanical Ventilator Mechanical Ventilator Mechanical Ventilator 11/24/19 16:00 16 116/67 Mechanical Ventilator 45 11/24/19 16:00 69 11/24/19 16:00 45 11/24/19 15:49 87 18 45 11/24/19 15:49 74 14 100 11/24/19 15:45 45 11/24/19 15:45 81 14 105/73 (84) 99 11/24/19 14:30 84 14 141/79 (99) 97 11/24/19 14:00 83 14 137/90 (106) 96 11/24/19 14:00 15 144/96 Mechanical Ventilator 45 11/24/19 13:30 79 15 134/84 (101) 95 11/24/19 13:00 14 129/80 Mechanical Ventilator 45 11/24/19 13:00 77 14 129/80 (96) 96 11/24/19 12:00 Mechanical Ventilator Mechanical Ventilator Mechanical Ventilator 11/24/19 12:00 14 127/78 Mechanical Ventilator 45 11/24/19 12:00 98.8 77 14 127/78 (94) 94 11/24/19 12:00 45 11/24/19 12:00 76 11/24/19 11:30 77 14 134/91 (105) 94 11/24/19 11:28 14 138/75 Mechanical Ventilator 45 11/24/19 11:10 81 16 45 11/24/19 11:10 81 16 94 Mechanical Ventilator 100 11/24/19 11:00 76 14 138/75 (96) 94 11/24/19 10:43 16 137/89 Mechanical Ventilator 45 11/24/19 10:30 77 15 137/89 (105) 94 11/24/19 10:00 75 17 135/93 (107) 94 I&O Intake and Output 11/24/19 11/25/19 19:00 07:00 Intake Total 584.80396 ml 415.00856 ml Output Total 1400 ml 1430 ml Balance -815.48065 ml -1014.69454 ml Free Water 70 ml IV Total 444.05642 ml 415.05294 ml Other 70 ml Output Urine Total 1400 ml 1430 ml Dressing: dry Wound: clean Cardiovascular: RSR Respiratory: clear, decreased breath sounds Abdomen: soft, non-tender, present bowel sounds Extremities: no cyanosis Laboratory Tests Test 11/24/19 12:40 POC Whole Blood Glucose Pending Plan Problems: (1) Weak (2) UTI (urinary tract infection) (3) Hypoxia (4) Epistaxis Assessment & Plan: Severe after taxis left nostril Rhino Rocket placed hemostasis noted over the course 24 hours hemoglobin stable Lovenox been stopped. The balloon of both ports of the Rhino Rocket were deflated today. The rocket itself was not removed and will monitor over the course next 24 hours hemostasis. If so will gently remove and plan for local monitoring. Currently wean ventilator as tolerated. Goals of extubation when possible. deflated balloon 11/08 removed trumpet 11/09 will monitor for bleeding wean vent plan extubation discussed with pulm (5) Fluid overload Assessment & Plan: Continue central venous catheter for now. Will anticipate removal once patient stable for extubation. Thank you for allowing me to participate patient's care picc in line out (6) Diabetes (7) CHF (congestive heart failure) (8) Afib (9) Multifocal pneumonia (10) 2019 novel coronavirus disease (COVID-19) Assessment & Plan: + wean vent extubated failed reintubated consider trach plan trach 8 s/p trach comfortable (11) Respiratory failure Ortiz Fleming Nov 25, 2019 09:36
[2019-11-25 09:45] LABS: HEMATOCRIT 35.4 % (37.0-47.0); HEMOGLOBIN 10.7 G/DL (12.0-16.0); MEAN CORPUSCULAR VOLUME 88 FL (80-99); PLATELET COUNT 200 K/UL (150-450); RED BLOOD COUNT 4.03 M/UL (4.20-5.40); RED CELL DISTRIBUTION WIDTH 17.1 % (11.6-14.8); WHITE BLOOD COUNT 15.1 K/UL (4.8-10.8)
[2019-11-25] MEDS: Levemir Flexpen SUBQ SCH ×2 (10:19→18:52)
[2019-11-25 10:24] LABS: ALANINE AMINOTRANSFERASE 35 U/L (12-78); ALBUMIN/GLOBULIN RATIO 0.5 (1.0-2.7); ALKALINE PHOSPHATASE 175 U/L (46-116); ANION GAP 3 mmol/L (5-15); ASPARTATE AMINO TRANSFERASE 35 U/L (15-37); BILIRUBIN,TOTAL 1.3 MG/DL (0.2-1.0); BLOOD UREA NITROGEN 49 mg/dL (7-18); CALCIUM 8.4 MG/DL (8.5-10.1); CARBON DIOXIDE 37 MMOL/L (21-32); CHLORIDE 110 MMOL/L (98-107); CREATININE 1.1 MG/DL (0.55-1.30); POTASSIUM 3.2 MMOL/L (3.5-5.1); SODIUM 150 MMOL/L (136-145)
[2019-11-25 10:27] LABS: BILIRUBIN,DIRECT 0.9 MG/DL (0.0-0.3)
[2019-11-25 10:49] LABS: INR 1.1 (0.9-1.1)
--- NOTE | 2019-11-25 10:51 | Infectious Diseases Prog Note ---
"Assessment/Plan Assessment/Plan antibiotics : zosyn, solumedrol A 1. COVID 19 pneumonia on 45 percent Fi O2, PEEP 5, saturation 100 percent s/p remdesivir s/p ivermectin 7.31.20 2. respiratory failure s/p tracheostomy 3. leucocytosis likely secondary to steroids 4. diabetes mellitus 5. hypertension 6. obesity 7. enterobacter | gram negative pneumonia P 1. d/c zosyn 2. d/c solumedrol 3. start cefepime 4. will follow up cultures 5. continue isolation Subjective ROS Limited/Unobtainable: Yes Allergies: Coded Allergies: No Known Allergies (Unverified , 11/06/19) Objective Last 24 Hour Vital Signs Date Time Temp Pulse Resp B/P (MAP) Pulse Ox O2 Delivery O2 Flow Rate FiO2 11/25/19 09:15 76 14 143/64 (90) 100 11/25/19 09:00 15 148/65 Mechanical Ventilator 45 11/25/19 09:00 76 15 148/65 (92) 100 11/25/19 08:45 80 16 167/76 (106) 100 11/25/19 08:30 83 15 159/88 (111) 100 11/25/19 08:15 81 15 182/75 (110) 100 11/25/19 08:15 69 20 100 11/25/19 08:09 62 11/25/19 08:07 69 127/71 11/25/19 08:02 19 125/56 Mechanical Ventilator 45 11/25/19 08:00 98.2 71 14 127/71 (89) 99 11/25/19 08:00 14 125/56 Mechanical Ventilator 45 11/25/19 08:00 Mechanical Ventilator Mechanical Ventilator Mechanical Ventilator 11/25/19 08:00 45 11/25/19 07:45 70 14 125/56 (79) 99 11/25/19 07:30 71 14 121/57 (78) 99 11/25/19 07:22 84 14 45 11/25/19 07:15 70 14 126/76 (93) 99 11/25/19 07:00 15 129/59 Mechanical Ventilator 40 11/25/19 07:00 72 14 129/59 (82) 99 11/25/19 06:15 72 14 142/65 (90) 100 11/25/19 06:00 71 14 143/76 (98) 100 8/5/20 06:00 14 143/76 Mechanical Ventilator 80 11/25/19 05:45 70 14 125/60 (81) 100 11/25/19 05:30 73 14 145/88 (107) 100 11/25/19 05:15 72 14 136/60 (85) 100 11/25/19 05:00 14 131/64 Mechanical Ventilator 80 11/25/19 05:00 69 14 131/64 (86) 100 11/25/19 04:45 70 14 137/61 (86) 99 11/25/19 04:30 72 15 160/78 (105) 98 11/25/19 04:15 75 17 179/89 (119) 98 11/25/19 04:03 61 11/25/19 04:00 Mechanical Ventilator Mechanical Ventilator Mechanical Ventilator 11/25/19 04:00 65 15 111/61 (78) 97 11/25/19 04:00 45 11/25/19 04:00 14 111/61 Mechanical Ventilator 80 11/25/19 03:45 65 15 116/57 (76) 97 11/25/19 03:30 65 15 123/56 (78) 97 11/25/19 03:22 62 15 45 11/25/19 03:15 66 15 130/68 (88) 97 11/25/19 03:00 15 111/64 Mechanical Ventilator 80 11/25/19 03:00 67 15 111/64 (80) 97 11/25/19 02:30 65 15 110/51 (70) 97 11/25/19 02:15 66 15 116/64 (81) 97 11/25/19 02:00 16 145/78 Mechanical Ventilator 80 11/25/19 02:00 68 15 145/78 (100) 97 11/25/19 01:45 64 15 94/49 (64) 97 11/25/19 01:30 63 15 111/54 (73) 97 11/25/19 01:15 62 15 99/55 (70) 97 11/25/19 01:00 14 100/49 Mechanical Ventilator 80 11/25/19 01:00 62 15 100/49 (66) 97 11/25/19 00:45 62 15 100/54 (69) 97 11/25/19 00:30 61 15 100/53 (69) 97 11/25/19 00:15 62 15 105/55 (72) 97 11/25/19 00:00 Mechanical Ventilator Mechanical Ventilator Mechanical Ventilator 8 00:00 45 820 00:00 15 103/52 Mechanical Ventilator 80 11/25/19 00:00 98.1 62 15 103/52 (69) 97 8 23:45 63 15 109/58 (75) 97 11/24/19 23:33 57 8 23:30 62 15 101/56 (71) 97 8 23:30 66 15 45 8 23:15 62 15 106/60 (75) 97 8 23:00 15 100/55 Mechanical Ventilator 40 11/24/19 23:00 61 15 100/55 (70) 97 11/24/19 22:45 62 15 110/52 (71) 97 11/24/19 22:30 61 15 109/57 (74) 98 8 22:15 61 15 100/50 (67) 98 11/24/19 22:00 15 105/55 Mechanical Ventilator 40 11/24/19 22:00 62 15 105/55 (72) 98 11/24/19 21:45 64 15 107/49 (68) 98 11/24/19 21:30 64 15 99/56 (70) 98 11/24/19 21:23 20 116/60 Mechanical Ventilator 80 11/24/19 21:21 67 115/50 8 21:15 66 15 115/60 (78) 98 8 21:00 15 114/55 Mechanical Ventilator 40 11/24/19 21:00 67 15 114/55 (74) 98 8 20:45 67 15 116/67 (83) 98 8 20:35 70 8/08/09 20:30 66 15 103/58 (73) 98 820 20:15 65 15 99/57 (71) 98 8 20:00 98.2 66 15 101/53 (69) 98 820 20:00 15 101/53 Mechanical Ventilator 40 8 20:00 45 820 20:00 Mechanical Ventilator Mechanical Ventilator Mechanical Ventilator 11/24/19 19:49 103/58 8 19:45 66 15 111/55 (73) 98 11/24/19 19:30 67 15 110/61 (77) 99 11/24/19 19:30 65 16 45 11/24/19 19:15 69 15 103/53 (70) 98 11/24/19 19:00 71 15 104/55 (71) 99 11/24/19 19:00 15 101/57 Mechanical Ventilator 45 11/24/19 18:36 103/53 11/24/19 18:30 68 15 110/56 (74) 99 11/24/19 18:15 68 15 106/63 (77) 99 11/24/19 18:00 16 120/60 Mechanical Ventilator 45 11/24/19 18:00 71 15 110/73 (85) 99 11/24/19 17:45 72 15 120/60 (80) 98 11/24/19 17:30 65 15 102/60 (74) 99 11/24/19 17:15 68 16 112/55 (74) 97 11/24/19 17:00 16 107/71 Mechanical Ventilator 45 11/24/19 17:00 71 15 121/65 (83) 97 11/24/19 16:45 70 16 107/71 (83) 97 11/24/19 16:30 72 16 117/70 (86) 97 11/24/19 16:15 72 16 115/67 (83) 97 11/24/19 16:00 98.7 83 16 111/72 (85) 98 11/24/19 16:00 Mechanical Ventilator Mechanical Ventilator Mechanical Ventilator 11/24/19 16:00 16 116/67 Mechanical Ventilator 45 11/24/19 16:00 69 11/24/19 16:00 45 11/24/19 15:49 87 18 45 11/24/19 15:49 74 14 100 11/24/19 15:45 45 11/24/19 15:45 81 14 105/73 (84) 99 11/24/19 14:30 84 14 141/79 (99) 97 11/24/19 14:00 83 14 137/90 (106) 96 11/24/19 14:00 15 144/96 Mechanical Ventilator 45 11/24/19 13:30 79 15 134/84 (101) 95 11/24/19 13:00 14 129/80 Mechanical Ventilator 45 11/24/19 13:00 77 14 129/80 (96) 96 11/24/19 12:00 Mechanical Ventilator Mechanical Ventilator Mechanical Ventilator 11/24/19 12:00 14 127/78 Mechanical Ventilator 45 11/24/19 12:00 98.8 77 14 127/78 (94) 94 11/24/19 12:00 45 11/24/19 12:00 76 11/24/19 11:30 77 14 134/91 (105) 94 11/24/19 11:28 14 138/75 Mechanical Ventilator 45 11/24/19 11:10 81 16 45 11/24/19 11:10 81 16 94 Mechanical Ventilator 100 11/24/19 11:00 76 14 138/75 (96) 94 Height (Feet): 5 Height (Inches): 1.00 Weight (Pounds): 338 HEENT: status post trach Microbiology Date/Time Source Procedure Growth Status 11/22/19 15:00 Sputum Gram Stain - Final Resulted 11/22/19 15:00 Sputum Culture - Preliminary Enterobacter Aerogenes Gram Negative Bacillus 2 Resulted Laboratory Tests Test 11/24/19 12:40 11/25/19 08:45 POC Whole Blood Glucose Pending White Blood Count 15.1 K/UL (4.8-10.8) H Red Blood Count 4.03 M/UL (4.20-5.40) L Hemoglobin 10.7 G/DL (12.0-16.0) L Hematocrit 35.4 % (37.0-47.0) L Mean Corpuscular Volume 88 FL (80-99) Mean Corpuscular Hemoglobin 26.6 PG (27.0-31.0) L Mean Corpuscular Hemoglobin Concent 30.3 G/DL (32.0-36.0) L Red Cell Distribution Width 17.1 % (11.6-14.8) H Platelet Count 200 K/UL (150-450) Mean Platelet Volume 6.5 FL (6.5-10.1) Neutrophils (%) (Auto) % (45.0-75.0) Lymphocytes (%) (Auto) % (20.0-45.0) Monocytes (%) (Auto) % (1.0-10.0) Eosinophils (%) (Auto) % (0.0-3.0) Basophils (%) (Auto) % (0.0-2.0) Differential Total Cells Counted 100 Neutrophils % (Manual) 97 % (45-75) H Lymphocytes % (Manual) 2 % (20-45) L Monocytes % (Manual) 1 % (1-10) Eosinophils % (Manual) 0 % (0-3) Basophils % (Manual) 0 % (0-2) Band Neutrophils 0 % (0-8) Platelet Estimate Adequate Platelet Morphology Normal Hypochromasia 1+ Anisocytosis 1+ Prothrombin Time Pending Prothromb Time International Ratio Pending Activated Partial Thromboplast Time 25 SEC (23-33) Sodium Level 150 MMOL/L (136-145) H Potassium Level 3.2 MMOL/L (3.5-5.1) L Chloride Level 110 MMOL/L (98-107) H Carbon Dioxide Level 37 MMOL/L (21-32) H Anion Gap 3 mmol/L (5-15) L Blood Urea Nitrogen 49 mg/dL (7-18) H Creatinine 1.1 MG/DL (0.55-1.30) Estimat Glomerular Filtration Rate 51.9 mL/min (>60) Glucose Level 123 MG/DL (74-106) H Calcium Level 8.4 MG/DL (8.5-10.1) L Total Bilirubin 1.3 MG/DL (0.2-1.0) H Direct Bilirubin 0.9 MG/DL (0.0-0.3) H Aspartate Amino Transf (AST/SGOT) 35 U/L (15-37) Alanine Aminotransferase (ALT/SGPT) 35 U/L (12-78) Alkaline Phosphatase 175 U/L (46-116) H Total Protein 6.2 G/DL (6.4-8.2) L Albumin 2.0 G/DL (3.4-5.0) L Globulin 4.2 g/dL Albumin/Globulin Ratio 0.5 (1.0-2.7) L Thyroid Stimulating Hormone (TSH) 3.603 uiU/mL (0.358-3.740) Free Thyroxine Pending Current Medications Medications (Trade) Dose Ordered Sig/Robyn Route PRN Reason Start Time Stop Time Status Last Admin Dose Admin Acetaminophen (Tylenol) 650 mg Q6H PRN GT Temp >100.5 11/24/19 13:30 12/12/19 00:14 Amiodarone HCl (Cordarone) 400 mg EVERY 12 HOURS GT 11/24/19 21:00 02/18/20 09:29 11/25/19 08:08 Chlorhexidine Gluconate (Miya-Hex 2%) 1 applic DAILY@2000 TOPIC 11/08/19 21:30 02/06/20 21:29 11/24/19 21:20 Clonidine HCl (Catapres Tab) 0.1 mg Q4H PRN GT For High Blood Pressure 11/24/19 13:30 02/09/20 10:59 Dextrose (Dextrose 50%) 25 ml Q30M PRN IV Hypoglycemia 11/23/19 06:45 02/21/20 06:44 Dextrose (Dextrose 50%) 50 ml Q30M PRN IV Hypoglycemia 11/23/19 06:45 02/21/20 06:44 Docusate Sodium (Colace) 100 mg EVERY 12 HOURS GT 11/25/19 09:00 12/23/19 08:59 11/25/19 08:07 Dopamine HCl/ Dextrose 250 ml @ 0 mls/hr Q24H IV 11/19/19 18:36 02/17/20 18:35 11/19/19 18:41 Famotidine (Pepcid I.v.) 20 mg Q12HR IVP 11/08/19 15:30 12/08/19 15:29 11/25/19 08:07 Fentanyl Citrate 250 ml @ 0 mls/hr Q24H IV 11/24/19 11:30 02/17/20 11:29 11/25/19 08:02 Folic Acid (Folate) 2 mg DAILY GT 11/25/19 09:00 12/15/19 08:59 11/25/19 08:07 Insulin Aspart (NovoLOG) EVERY 6 HOURS SUBQ 11/15/19 12:00 02/11/20 20:59 11/23/19 23:59 Insulin Detemir (Levemir) 12 units BID SUBQ 11/24/19 09:00 02/21/20 08:59 11/25/19 10:19 Lorazepam (Ativan 2mg/ml 1ml) 1 mg Q4H PRN IV For Anxiety 11/21/19 11:00 11/28/19 10:59 11/22/19 03:46 Methylprednisolone Sodium Succinate (Solu-MEDROL) 20 mg EVERY 12 HOURS IVP 11/21/19 21:00 02/18/20 20:59 11/25/19 08:07 Metoprolol Tartrate (Lopressor) 25 mg Q12HR GT 11/24/19 21:00 02/18/20 09:29 11/25/19 08:07 Norepinephrine Bitartrate 250 ml @ 0 mls/hr Q24H IV 11/19/19 19:49 02/17/20 19:48 Piperacillin Sod/ Tazobactam Sod 3.375 gm/Sodium Chloride 110 ml @ 27.5 mls/hr EVERY 8 HOURS IVPB 11/24/19 12:00 11/29/19 11:59 11/25/19 06:10 Rosette Bowman MD Nov 25, 2019 10:51"
--- NOTE | 2019-11-25 11:02 | Pulmonology Progress Note ---
Subjective ROS Limited/Unobtainable: Yes Interval Events: Re-intubated on 11/19/19; Status post tracheostomy 11/24/2019 Constitutional: Denies: fever HEENT: Repors: no symptoms Respiratory: Reports: dry cough, shortness of breath Cardiovascular: Reports: no symptoms Gastrointestinal/Abdominal: Reports: no symptoms Allergies: Coded Allergies: No Known Allergies (Unverified , 11/06/19) All Systems: reviewed and negative except above Objective Last 24 Hour Vital Signs Date Time Temp Pulse Resp B/P (MAP) Pulse Ox O2 Delivery O2 Flow Rate FiO2 11/25/19 09:15 76 14 143/64 (90) 100 11/25/19 09:00 15 148/65 Mechanical Ventilator 45 11/25/19 09:00 76 15 148/65 (92) 100 11/25/19 08:45 80 16 167/76 (106) 100 11/25/19 08:30 83 15 159/88 (111) 100 11/25/19 08:15 81 15 182/75 (110) 100 11/25/19 08:15 69 20 100 11/25/19 08:09 62 11/25/19 08:07 69 127/71 11/25/19 08:02 19 125/56 Mechanical Ventilator 45 11/25/19 08:00 98.2 71 14 127/71 (89) 99 11/25/19 08:00 14 125/56 Mechanical Ventilator 45 11/25/19 08:00 Mechanical Ventilator Mechanical Ventilator Mechanical Ventilator 11/25/19 08:00 45 11/25/19 07:45 70 14 125/56 (79) 99 11/25/19 07:30 71 14 121/57 (78) 99 11/25/19 07:22 84 14 45 11/25/19 07:15 70 14 126/76 (93) 99 11/25/19 07:00 15 129/59 Mechanical Ventilator 40 11/25/19 07:00 72 14 129/59 (82) 99 11/25/19 06:15 72 14 142/65 (90) 100 11/25/19 06:00 71 14 143/76 (98) 100 11/25/19 06:00 14 143/76 Mechanical Ventilator 80 11/25/19 05:45 70 14 125/60 (81) 100 11/25/19 05:30 73 14 145/88 (107) 100 11/25/19 05:15 72 14 136/60 (85) 100 11/25/19 05:00 14 131/64 Mechanical Ventilator 80 11/25/19 05:00 69 14 131/64 (86) 100 11/25/19 04:45 70 14 137/61 (86) 99 11/25/19 04:30 72 15 160/78 (105) 98 11/25/19 04:15 75 17 179/89 (119) 98 11/25/19 04:03 61 11/25/19 04:00 Mechanical Ventilator Mechanical Ventilator Mechanical Ventilator 11/25/19 04:00 65 15 111/61 (78) 97 11/25/19 04:00 45 11/25/19 04:00 14 111/61 Mechanical Ventilator 80 11/25/19 03:45 65 15 116/57 (76) 97 11/25/19 03:30 65 15 123/56 (78) 97 11/25/19 03:22 62 15 45 11/25/19 03:15 66 15 130/68 (88) 97 11/25/19 03:00 15 111/64 Mechanical Ventilator 80 11/25/19 03:00 67 15 111/64 (80) 97 11/25/19 02:30 65 15 110/51 (70) 97 11/25/19 02:15 66 15 116/64 (81) 97 11/25/19 02:00 16 145/78 Mechanical Ventilator 80 11/25/19 02:00 68 15 145/78 (100) 97 11/25/19 01:45 64 15 94/49 (64) 97 11/25/19 01:30 63 15 111/54 (73) 97 11/25/19 01:15 62 15 99/55 (70) 97 11/25/19 01:00 14 100/49 Mechanical Ventilator 80 11/25/19 01:00 62 15 100/49 (66) 97 11/25/19 00:45 62 15 100/54 (69) 97 11/25/19 00:30 61 15 100/53 (69) 97 11/25/19 00:15 62 15 105/55 (72) 97 11/25/19 00:00 Mechanical Ventilator Mechanical Ventilator Mechanical Ventilator 11/25/19 00:00 45 11/25/19 00:00 15 103/52 Mechanical Ventilator 80 8/5/20 00:00 98.1 62 15 103/52 (69) 97 8/20 23:45 63 15 109/58 (75) 97 8/20 23:33 57 8/20 23:30 62 15 101/56 (71) 97 8//20 23:30 66 15 45 8//20 23:15 62 15 106/60 (75) 97 8/20 23:00 15 100/55 Mechanical Ventilator 40 820 23:00 61 15 100/55 (70) 97 8//20 22:45 62 15 110/52 (71) 97 8//20 22:30 61 15 109/57 (74) 98 8//20 22:15 61 15 100/50 (67) 98 8/20 22:00 15 105/55 Mechanical Ventilator 40 11/24/19 22:00 62 15 105/55 (72) 98 820 21:45 64 15 107/49 (68) 98 8 21:30 64 15 99/56 (70) 98 820 21:23 20 116/60 Mechanical Ventilator 80 8 21:21 67 115/50 8/20 21:15 66 15 115/60 (78) 98 8//20 21:00 15 114/55 Mechanical Ventilator 40 11/24/19 21:00 67 15 114/55 (74) 98 8//20 20:45 67 15 116/67 (83) 98 11/24/19 20:35 70 8/20 20:30 66 15 103/58 (73) 98 8//20 20:15 65 15 99/57 (71) 98 8//20 20:00 98.2 66 15 101/53 (69) 98 8/20 20:00 15 101/53 Mechanical Ventilator 40 820 20:00 45 820 20:00 Mechanical Ventilator Mechanical Ventilator Mechanical Ventilator 8 19:49 103/58 8/20 19:45 66 15 111/55 (73) 98 8//20 19:30 67 15 110/61 (77) 99 8//20 19:30 65 16 45 8/20 19:15 69 15 103/53 (70) 98 11/24/19 19:00 71 15 104/55 (71) 99 11/24/19 19:00 15 101/57 Mechanical Ventilator 45 11/24/19 18:36 103/53 11/24/19 18:30 68 15 110/56 (74) 99 11/24/19 18:15 68 15 106/63 (77) 99 11/24/19 18:00 16 120/60 Mechanical Ventilator 45 11/24/19 18:00 71 15 110/73 (85) 99 11/24/19 17:45 72 15 120/60 (80) 98 11/24/19 17:30 65 15 102/60 (74) 99 11/24/19 17:15 68 16 112/55 (74) 97 11/24/19 17:00 16 107/71 Mechanical Ventilator 45 11/24/19 17:00 71 15 121/65 (83) 97 11/24/19 16:45 70 16 107/71 (83) 97 11/24/19 16:30 72 16 117/70 (86) 97 11/24/19 16:15 72 16 115/67 (83) 97 11/24/19 16:00 98.7 83 16 111/72 (85) 98 11/24/19 16:00 Mechanical Ventilator Mechanical Ventilator Mechanical Ventilator 11/24/19 16:00 16 116/67 Mechanical Ventilator 45 11/24/19 16:00 69 11/24/19 16:00 45 11/24/19 15:49 87 18 45 11/24/19 15:49 74 14 100 11/24/19 15:45 45 11/24/19 15:45 81 14 105/73 (84) 99 11/24/19 14:30 84 14 141/79 (99) 97 11/24/19 14:00 83 14 137/90 (106) 96 11/24/19 14:00 15 144/96 Mechanical Ventilator 45 11/24/19 13:30 79 15 134/84 (101) 95 11/24/19 13:00 14 129/80 Mechanical Ventilator 45 11/24/19 13:00 77 14 129/80 (96) 96 11/24/19 12:00 Mechanical Ventilator Mechanical Ventilator Mechanical Ventilator 11/24/19 12:00 14 127/78 Mechanical Ventilator 45 11/24/19 12:00 98.8 77 14 127/78 (94) 94 11/24/19 12:00 45 11/24/19 12:00 76 11/24/19 11:30 77 14 134/91 (105) 94 11/24/19 11:28 14 138/75 Mechanical Ventilator 45 11/24/19 11:10 81 16 45 11/24/19 11:10 81 16 94 Mechanical Ventilator 100 Intake and Output 11/24/19 11/25/19 19:00 07:00 Intake Total 584.53706 ml 415.38732 ml Output Total 1400 ml 1430 ml Balance -815.57415 ml -1014.20992 ml Free Water 70 ml IV Total 444.54359 ml 415.85706 ml Other 70 ml Output Urine Total 1400 ml 1430 ml General Appearance: no acute distress HEENT: normocephalic, status post trach Respiratory: decreased breath sounds Cardiovascular: normal peripheral pulses Abdomen: normal bowel sounds Extremities: no cyanosis Microbiology Date/Time Source Procedure Growth Status 11/22/19 15:00 Sputum Gram Stain - Final Resulted 11/22/19 15:00 Sputum Culture - Preliminary Enterobacter Aerogenes Gram Negative Bacillus 2 Resulted Laboratory Tests 11/24/19 12:40: POC Whole Blood Glucose [Pending] 11/25/19 08:45: White Blood Count 15.1H, Red Blood Count 4.03L, Hemoglobin 10.7L, Hematocrit 35.4L, Mean Corpuscular Volume 88, Mean Corpuscular Hemoglobin 26.6L, Mean Corpuscular Hemoglobin Concent 30.3L, Red Cell Distribution Width 17.1H, Platelet Count 200, Mean Platelet Volume 6.5, Neutrophils (%) (Auto) , Lymphocytes (%) (Auto) , Monocytes (%) (Auto) , Eosinophils (%) (Auto) , Basophils (%) (Auto) , Differential Total Cells Counted 100, Neutrophils % ( Manual) 97H, Lymphocytes % (Manual) 2L, Monocytes % (Manual) 1, Eosinophils % ( Manual) 0, Basophils % (Manual) 0, Band Neutrophils 0, Platelet Estimate Adequate, Platelet Morphology Normal, Hypochromasia 1+, Anisocytosis 1+, Prothrombin Time 12.0H, Prothromb Time International Ratio 1.1, Activated Partial Thromboplast Time 25, Sodium Level 150H, Potassium Level 3.2L, Chloride Level 110H, Carbon Dioxide Level 37H, Anion Gap 3L, Blood Urea Nitrogen 49H, Creatinine 1.1, Estimat Glomerular Filtration Rate 51.9, Glucose Level 123H, Calcium Level 8.4L, Total Bilirubin 1.3H, Direct Bilirubin 0.9H, Aspartate Amino Transf (AST/SGOT) 35, Alanine Aminotransferase (ALT/SGPT) 35, Alkaline Phosphatase 175H, Total Protein 6.2L, Albumin 2.0L, Globulin 4.2, Albumin/ Globulin Ratio 0.5L, Thyroid Stimulating Hormone (TSH) 3.603, Free Thyroxine [ Pending] Current Medications Medications (Trade) Dose Ordered Sig/Robyn Route PRN Reason Start Time Stop Time Status Last Admin Dose Admin Acetaminophen (Tylenol) 650 mg Q6H PRN GT Temp >100.5 11/24/19 13:30 12/12/19 00:14 Amiodarone HCl (Cordarone) 400 mg EVERY 12 HOURS GT 11/24/19 21:00 02/18/20 09:29 11/25/19 08:08 Cefepime HCl 2 gm/ Dextrose 55 ml @ 110 mls/hr EVERY 12 HOURS IVPB 11/25/19 11:00 12/02/19 10:59 UNV Chlorhexidine Gluconate (Miya-Hex 2%) 1 applic DAILY@2000 TOPIC 11/08/19 21:30 02/06/20 21:29 11/24/19 21:20 Clonidine HCl (Catapres Tab) 0.1 mg Q4H PRN GT For High Blood Pressure 11/24/19 13:30 02/09/20 10:59 Dextrose (Dextrose 50%) 25 ml Q30M PRN IV Hypoglycemia 11/23/19 06:45 02/21/20 06:44 Dextrose (Dextrose 50%) 50 ml Q30M PRN IV Hypoglycemia 11/23/19 06:45 02/21/20 06:44 Docusate Sodium (Colace) 100 mg EVERY 12 HOURS GT 11/25/19 09:00 12/23/19 08:59 11/25/19 08:07 Dopamine HCl/ Dextrose 250 ml @ 0 mls/hr Q24H IV 11/19/19 18:36 02/17/20 18:35 11/19/19 18:41 Famotidine (Pepcid I.v.) 20 mg Q12HR IVP 11/08/19 15:30 12/08/19 15:29 11/25/19 08:07 Fentanyl Citrate 250 ml @ 0 mls/hr Q24H IV 11/24/19 11:30 02/17/20 11:29 11/25/19 08:02 Folic Acid (Folate) 2 mg DAILY GT 11/25/19 09:00 12/15/19 08:59 11/25/19 08:07 Insulin Aspart (NovoLOG) EVERY 6 HOURS SUBQ 11/15/19 12:00 02/11/20 20:59 11/23/19 23:59 Insulin Detemir (Levemir) 12 units BID SUBQ 11/24/19 09:00 02/21/20 08:59 11/25/19 10:19 Lorazepam (Ativan 2mg/ml 1ml) 1 mg Q4H PRN IV For Anxiety 11/21/19 11:00 11/28/19 10:59 11/22/19 03:46 Metoprolol Tartrate (Lopressor) 25 mg Q12HR GT 11/24/19 21:00 02/18/20 09:29 11/25/19 08:07 Norepinephrine Bitartrate 250 ml @ 0 mls/hr Q24H IV 11/19/19 19:49 02/17/20 19:48 Assessment/Plan Assessment/Plan IMPRESSION: 1. COVID-19 pneumonia. 2. Diabetes mellitus and hypertension. 3. Lactic acidemia. 4. Epistaxis 5. Respiratory failure; failed extubation 6. Anasarca DISCUSSION: Careful and close monitoring. Continue medications status post tracheostomy On fentanyl scheduled for PEG today no longer on Lasix I will follow carefully. Lakeisha Zavaleta Omar Syed MD Nov 25, 2019 11:02
--- NOTE | 2019-11-25 12:40 | Nephrology Progress Note ---
Assessment/Plan Problem List: (1) Electrolyte imbalance (2) Diabetes (3) 2019 novel coronavirus disease (COVID-19) (4) Respiratory failure Assessment 1. COVID-19 pneumonia. 2. Diabetes and hyperglycemia 3. Hypertension. 4. Hypoxic respiratory failure 5. Morbid obesity with BMI of 65.5 6. Nasal bleeding 7. Lactic acidosis 8. Hyperkalemia Plan November 24: Lab reviewed. Potassium IV given. Has tracheostomy to vent. Has PEG. Continue per consultants. November 23: Labs reviewed. Creatinine higher to 1.4. Due for trach today. Suggest to stop IV Lasix. November 22: Renal parameters stable. Medication list reviewed. Continue same management per consultants. November 21: Renal parameters stable. On IV Lasix. Edematous. Will order few doses of albumin 25%. Continue per consultants. November 20: Repeat serum potassium again normal. Renal parameters normal. Continue per consultants. November 19: Repeat serum potassium normal. Renal parameters within normal limit. Continue per consultants. November 18: Levemir stopped since IV fluid and dexamethasone are discontinued and patient blood sugar went down. Renal parameters are stable. Continues to be on ventilator. Previously: Renal parameters stable Weaning is being attempted patient's urine output is low. We will give a trial of albumin and Lasix, As needed Discussed with RN Stop IV to D5W 75 cc an hour Levemir 20 units subcu every 12 hours Kayexalate for high potassium as needed Monitor electrolytes and renal parameters Tight blood sugar control, long-acting insulin as needed Keep the blood pressure in check Per orders Subjective ROS Limited/Unobtainable: Yes Objective Objective Last 24 Hour Vital Signs Date Time Temp Pulse Resp B/P (MAP) Pulse Ox O2 Delivery O2 Flow Rate FiO2 11/25/19 12:00 45 11/25/19 12:00 Mechanical Ventilator Mechanical Ventilator Mechanical Ventilator 11/25/19 11:19 82 11/25/19 10:45 77 12 130/61 (84) 96 11/25/19 10:30 78 14 137/70 (92) 96 11/25/19 10:15 79 10 157/72 (100) 97 11/25/19 10:00 80 11 158/75 (102) 97 11/25/19 10:00 11 158/75 Mechanical Ventilator 45 11/25/19 09:45 78 14 146/71 (96) 99 11/25/19 09:30 79 14 139/69 (92) 99 11/25/19 09:15 76 14 143/64 (90) 100 11/25/19 09:00 15 148/65 Mechanical Ventilator 45 11/25/19 09:00 76 15 148/65 (92) 100 11/25/19 08:45 80 16 167/76 (106) 100 11/25/19 08:30 83 15 159/88 (111) 100 11/25/19 08:15 81 15 182/75 (110) 100 11/25/19 08:15 69 20 100 11/25/19 08:09 62 11/25/19 08:07 69 127/71 11/25/19 08:02 19 125/56 Mechanical Ventilator 45 11/25/19 08:00 98.2 71 14 127/71 (89) 99 11/25/19 08:00 14 125/56 Mechanical Ventilator 45 11/25/19 08:00 Mechanical Ventilator Mechanical Ventilator Mechanical Ventilator 11/25/19 08:00 45 11/25/19 07:45 70 14 125/56 (79) 99 11/25/19 07:30 71 14 121/57 (78) 99 11/25/19 07:22 84 14 45 11/25/19 07:15 70 14 126/76 (93) 99 11/25/19 07:00 15 129/59 Mechanical Ventilator 40 11/25/19 07:00 72 14 129/59 (82) 99 11/25/19 06:15 72 14 142/65 (90) 100 11/25/19 06:00 71 14 143/76 (98) 100 11/25/19 06:00 14 143/76 Mechanical Ventilator 80 11/25/19 05:45 70 14 125/60 (81) 100 11/25/19 05:30 73 14 145/88 (107) 100 11/25/19 05:15 72 14 136/60 (85) 100 11/25/19 05:00 14 131/64 Mechanical Ventilator 80 11/25/19 05:00 69 14 131/64 (86) 100 11/25/19 04:45 70 14 137/61 (86) 99 11/25/19 04:30 72 15 160/78 (105) 98 11/25/19 04:15 75 17 179/89 (119) 98 11/25/19 04:03 61 11/25/19 04:00 Mechanical Ventilator Mechanical Ventilator Mechanical Ventilator 11/25/19 04:00 65 15 111/61 (78) 97 11/25/19 04:00 45 11/25/19 04:00 14 111/61 Mechanical Ventilator 80 11/25/19 03:45 65 15 116/57 (76) 97 11/25/19 03:30 65 15 123/56 (78) 97 11/25/19 03:22 62 15 45 11/25/19 03:15 66 15 130/68 (88) 97 11/25/19 03:00 15 111/64 Mechanical Ventilator 80 11/25/19 03:00 67 15 111/64 (80) 97 11/25/19 02:30 65 15 110/51 (70) 97 11/25/19 02:15 66 15 116/64 (81) 97 11/25/19 02:00 16 145/78 Mechanical Ventilator 80 11/25/19 02:00 68 15 145/78 (100) 97 11/25/19 01:45 64 15 94/49 (64) 97 11/25/19 01:30 63 15 111/54 (73) 97 11/25/19 01:15 62 15 99/55 (70) 97 11/25/19 01:00 14 100/49 Mechanical Ventilator 80 11/25/19 01:00 62 15 100/49 (66) 97 11/25/19 00:45 62 15 100/54 (69) 97 11/25/19 00:30 61 15 100/53 (69) 97 11/25/19 00:15 62 15 105/55 (72) 97 11/25/19 00:00 Mechanical Ventilator Mechanical Ventilator Mechanical Ventilator 11/25/19 00:00 45 11/25/19 00:00 15 103/52 Mechanical Ventilator 80 11/25/19 00:00 98.1 62 15 103/52 (69) 97 11/24/19 23:45 63 15 109/58 (75) 97 11/24/19 23:33 57 11/24/19 23:30 62 15 101/56 (71) 97 11/24/19 23:30 66 15 45 11/24/19 23:15 62 15 106/60 (75) 97 11/24/19 23:00 15 100/55 Mechanical Ventilator 40 8/4/20 23:00 61 15 100/55 (70) 97 8/4/20 22:45 62 15 110/52 (71) 97 8//20 22:30 61 15 109/57 (74) 98 8//20 22:15 61 15 100/50 (67) 98 8/20 22:00 15 105/55 Mechanical Ventilator 40 820 22:00 62 15 105/55 (72) 98 8//20 21:45 64 15 107/49 (68) 98 8/20 21:30 64 15 99/56 (70) 98 820 21:23 20 116/60 Mechanical Ventilator 80 820 21:21 67 115/50 8/20 21:15 66 15 115/60 (78) 98 8/20 21:00 15 114/55 Mechanical Ventilator 40 820 21:00 67 15 114/55 (74) 98 820 20:45 67 15 116/67 (83) 98 820 20:35 70 8/20 20:30 66 15 103/58 (73) 98 8/20 20:15 65 15 99/57 (71) 98 820 20:00 98.2 66 15 101/53 (69) 98 820 20:00 15 101/53 Mechanical Ventilator 40 20 20:00 45 820 20:00 Mechanical Ventilator Mechanical Ventilator Mechanical Ventilator 11/24/19 19:49 103/58 8 19:45 66 15 111/55 (73) 98 820 19:30 67 15 110/61 (77) 99 8//20 19:30 65 16 45 8/20 19:15 69 15 103/53 (70) 98 8/20 19:00 71 15 104/55 (71) 99 8//20 19:00 15 101/57 Mechanical Ventilator 45 820 18:36 103/53 8//20 18:30 68 15 110/56 (74) 99 8//20 18:15 68 15 106/63 (77) 99 820 18:00 16 120/60 Mechanical Ventilator 45 20 18:00 71 15 110/73 (85) 99 11/24/19 17:45 72 15 120/60 (80) 98 11/24/19 17:30 65 15 102/60 (74) 99 11/24/19 17:15 68 16 112/55 (74) 97 11/24/19 17:00 16 107/71 Mechanical Ventilator 45 11/24/19 17:00 71 15 121/65 (83) 97 11/24/19 16:45 70 16 107/71 (83) 97 11/24/19 16:30 72 16 117/70 (86) 97 11/24/19 16:15 72 16 115/67 (83) 97 11/24/19 16:00 98.7 83 16 111/72 (85) 98 11/24/19 16:00 Mechanical Ventilator Mechanical Ventilator Mechanical Ventilator 11/24/19 16:00 16 116/67 Mechanical Ventilator 45 11/24/19 16:00 69 11/24/19 16:00 45 11/24/19 15:49 87 18 45 11/24/19 15:49 74 14 100 11/24/19 15:45 45 11/24/19 15:45 81 14 105/73 (84) 99 11/24/19 14:30 84 14 141/79 (99) 97 11/24/19 14:00 83 14 137/90 (106) 96 11/24/19 14:00 15 144/96 Mechanical Ventilator 45 11/24/19 13:30 79 15 134/84 (101) 95 11/24/19 13:00 14 129/80 Mechanical Ventilator 45 11/24/19 13:00 77 14 129/80 (96) 96 Intake and Output 11/24/19 11/25/19 19:00 07:00 Intake Total 584.45427 ml 415.71381 ml Output Total 1400 ml 1430 ml Balance -815.18656 ml -1014.24776 ml Free Water 70 ml IV Total 444.96482 ml 415.02761 ml Other 70 ml Output Urine Total 1400 ml 1430 ml Laboratory Tests 11/25/19 08:45: White Blood Count 15.1H, Red Blood Count 4.03L, Hemoglobin 10.7L, Hematocrit 35.4L, Mean Corpuscular Volume 88, Mean Corpuscular Hemoglobin 26.6L, Mean Corpuscular Hemoglobin Concent 30.3L, Red Cell Distribution Width 17.1H, Platelet Count 200, Mean Platelet Volume 6.5, Neutrophils (%) (Auto) , Lymphocytes (%) (Auto) , Monocytes (%) (Auto) , Eosinophils (%) (Auto) , Basophils (%) (Auto) , Differential Total Cells Counted 100, Neutrophils % ( Manual) 97H, Lymphocytes % (Manual) 2L, Monocytes % (Manual) 1, Eosinophils % ( Manual) 0, Basophils % (Manual) 0, Band Neutrophils 0, Platelet Estimate Adequate, Platelet Morphology Normal, Hypochromasia 1+, Anisocytosis 1+, Prothrombin Time 12.0H, Prothromb Time International Ratio 1.1, Activated Partial Thromboplast Time 25, Sodium Level 150H, Potassium Level 3.2L, Chloride Level 110H, Carbon Dioxide Level 37H, Anion Gap 3L, Blood Urea Nitrogen 49H, Creatinine 1.1, Estimat Glomerular Filtration Rate 51.9, Glucose Level 123H, Calcium Level 8.4L, Total Bilirubin 1.3H, Direct Bilirubin 0.9H, Aspartate Amino Transf (AST/SGOT) 35, Alanine Aminotransferase (ALT/SGPT) 35, Alkaline Phosphatase 175H, Total Protein 6.2L, Albumin 2.0L, Globulin 4.2, Albumin/ Globulin Ratio 0.5L, Thyroid Stimulating Hormone (TSH) 3.603, Free Thyroxine 0.65L Height (Feet): 5 Height (Inches): 1.00 Weight (Pounds): 338 General Appearance: no apparent distress EENT: other Cardiovascular: tachycardia - Now trach to vent Respiratory/Chest: decreased breath sounds Abdomen: distended, other - Has Papa Bolton MD Nov 25, 2019 12:40
--- NOTE | 2019-11-25 12:41 | Endoscopy Procedure Note ---
Endoscopy Procedure Note General Indication for Procedure: dysphagia Procedures Performed: EGD, PEG Operative Findings/Diagnosis: same Specimen: none Pt Tolerated Procedure Well: Yes Estimated Blood Loss: none Anesthesia Anesthesiologist: wanda Anesthesia: MAC Inserted Devices Implant(s) used?: No GI Core Measures 50 yrs or older w/o bx or poly: Not Applicable 10yrs. F/U recommended: Not Applicable Case Patel MD Nov 25, 2019 12:41
--- NOTE | 2019-11-25 12:50 | Cardiac Electrophysiology PN ---
Assessment/Plan Assessment/Plan 1. Paroxysmal atrial fibrillation. On metoprolol 25 q 12 and Amiodarone 400 q 12 hr. Off anticoagulation for hematuria and black stool EF 55% on echo. 2. S/P Shock. Off pressors. Tolerating Lopressor 25 bid 3. COVID positive pneumonia. 4. Diabetes, on insulin. 5. Respiratory failure on the Vent. S/P Tracheostomy 11/24/19 6. S/P Massive nasal bleed. 7. Severe LE edema on Lasix drip 5mg/hr 8. Dysphagia, PEG today pending [employer] Subjective Subjective In ICU on the vent with 35% Fio2. S/P tracheostomy yesterday and NPO for PEG today On Lasix drip 5mg/hr for severe LE edema. In atrial fib rate controlled on Lopressor 25 bid. Objective Last 24 Hour Vital Signs Date Time Temp Pulse Resp B/P (MAP) Pulse Ox O2 Delivery O2 Flow Rate FiO2 11/25/19 12:00 98.5 78 16 133/68 (89) 97 11/25/19 12:00 45 11/25/19 12:00 Mechanical Ventilator Mechanical Ventilator Mechanical Ventilator 11/25/19 11:19 82 11/25/19 11:00 78 12 128/62 (84) 96 11/25/19 10:45 77 12 130/61 (84) 96 11/25/19 10:30 78 14 137/70 (92) 96 11/25/19 10:15 79 10 157/72 (100) 97 11/25/19 10:00 80 11 158/75 (102) 97 11/25/19 10:00 11 158/75 Mechanical Ventilator 45 11/25/19 09:45 78 14 146/71 (96) 99 11/25/19 09:30 79 14 139/69 (92) 99 11/25/19 09:15 76 14 143/64 (90) 100 11/25/19 09:00 15 148/65 Mechanical Ventilator 45 11/25/19 09:00 76 15 148/65 (92) 100 11/25/19 08:45 80 16 167/76 (106) 100 11/25/19 08:30 83 15 159/88 (111) 100 11/25/19 08:15 81 15 182/75 (110) 100 11/25/19 08:15 69 20 100 11/25/19 08:09 62 8/5/20 08:07 69 127/71 11/25/19 08:02 19 125/56 Mechanical Ventilator 45 11/25/19 08:00 98.2 71 14 127/71 (89) 99 11/25/19 08:00 14 125/56 Mechanical Ventilator 45 11/25/19 08:00 Mechanical Ventilator Mechanical Ventilator Mechanical Ventilator 11/25/19 08:00 45 11/25/19 07:45 70 14 125/56 (79) 99 11/25/19 07:30 71 14 121/57 (78) 99 11/25/19 07:22 84 14 45 11/25/19 07:15 70 14 126/76 (93) 99 11/25/19 07:00 15 129/59 Mechanical Ventilator 40 11/25/19 07:00 72 14 129/59 (82) 99 11/25/19 06:15 72 14 142/65 (90) 100 11/25/19 06:00 71 14 143/76 (98) 100 11/25/19 06:00 14 143/76 Mechanical Ventilator 80 11/25/19 05:45 70 14 125/60 (81) 100 11/25/19 05:30 73 14 145/88 (107) 100 11/25/19 05:15 72 14 136/60 (85) 100 11/25/19 05:00 14 131/64 Mechanical Ventilator 80 11/25/19 05:00 69 14 131/64 (86) 100 11/25/19 04:45 70 14 137/61 (86) 99 11/25/19 04:30 72 15 160/78 (105) 98 11/25/19 04:15 75 17 179/89 (119) 98 11/25/19 04:03 61 11/25/19 04:00 Mechanical Ventilator Mechanical Ventilator Mechanical Ventilator 11/25/19 04:00 65 15 111/61 (78) 97 11/25/19 04:00 45 11/25/19 04:00 14 111/61 Mechanical Ventilator 80 11/25/19 03:45 65 15 116/57 (76) 97 11/25/19 03:30 65 15 123/56 (78) 97 11/25/19 03:22 62 15 45 11/25/19 03:15 66 15 130/68 (88) 97 11/25/19 03:00 15 111/64 Mechanical Ventilator 80 11/25/19 03:00 67 15 111/64 (80) 97 11/25/19 02:30 65 15 110/51 (70) 97 11/25/19 02:15 66 15 116/64 (81) 97 11/25/19 02:00 16 145/78 Mechanical Ventilator 80 11/25/19 02:00 68 15 145/78 (100) 97 11/25/19 01:45 64 15 94/49 (64) 97 11/25/19 01:30 63 15 111/54 (73) 97 11/25/19 01:15 62 15 99/55 (70) 97 11/25/19 01:00 14 100/49 Mechanical Ventilator 80 11/25/19 01:00 62 15 100/49 (66) 97 11/25/19 00:45 62 15 100/54 (69) 97 11/25/19 00:30 61 15 100/53 (69) 97 11/25/19 00:15 62 15 105/55 (72) 97 11/25/19 00:00 Mechanical Ventilator Mechanical Ventilator Mechanical Ventilator 11/25/19 00:00 45 11/25/19 00:00 15 103/52 Mechanical Ventilator 80 11/25/19 00:00 98.1 62 15 103/52 (69) 97 11/24/19 23:45 63 15 109/58 (75) 97 11/24/19 23:33 57 11/24/19 23:30 62 15 101/56 (71) 97 11/24/19 23:30 66 15 45 11/24/19 23:15 62 15 106/60 (75) 97 11/24/19 23:00 15 100/55 Mechanical Ventilator 40 11/24/19 23:00 61 15 100/55 (70) 97 11/24/19 22:45 62 15 110/52 (71) 97 11/24/19 22:30 61 15 109/57 (74) 98 11/24/19 22:15 61 15 100/50 (67) 98 11/24/19 22:00 15 105/55 Mechanical Ventilator 40 11/24/19 22:00 62 15 105/55 (72) 98 11/24/19 21:45 64 15 107/49 (68) 98 11/24/19 21:30 64 15 99/56 (70) 98 11/23/20 21:23 20 116/60 Mechanical Ventilator 80 8//20 21:21 67 115/50 8//20 21:15 66 15 115/60 (78) 98 8/20 21:00 15 114/55 Mechanical Ventilator 40 820 21:00 67 15 114/55 (74) 98 8/4/20 20:45 67 15 116/67 (83) 98 820 20:35 70 8/20 20:30 66 15 103/58 (73) 98 8//20 20:15 65 15 99/57 (71) 98 8/20 20:00 98.2 66 15 101/53 (69) 98 820 20:00 15 101/53 Mechanical Ventilator 40 11/24/19 20:00 45 820 20:00 Mechanical Ventilator Mechanical Ventilator Mechanical Ventilator 11/24/19 19:49 103/58 8 19:45 66 15 111/55 (73) 98 8 19:30 67 15 110/61 (77) 99 820 19:30 65 16 45 8 19:15 69 15 103/53 (70) 98 820 19:00 71 15 104/55 (71) 99 20 19:00 15 101/57 Mechanical Ventilator 45 20 18:36 103/53 820 18:30 68 15 110/56 (74) 99 820 18:15 68 15 106/63 (77) 99 820 18:00 16 120/60 Mechanical Ventilator 45 20 18:00 71 15 110/73 (85) 99 8/20 17:45 72 15 120/60 (80) 98 8/20 17:30 65 15 102/60 (74) 99 8/20 17:15 68 16 112/55 (74) 97 8/20 17:00 16 107/71 Mechanical Ventilator 45 820 17:00 71 15 121/65 (83) 97 8//20 16:45 70 16 107/71 (83) 97 8/20 16:30 72 16 117/70 (86) 97 8/20 16:15 72 16 115/67 (83) 97 11/24/19 16:00 98.7 83 16 111/72 (85) 98 11/24/19 16:00 Mechanical Ventilator Mechanical Ventilator Mechanical Ventilator 11/24/19 16:00 16 116/67 Mechanical Ventilator 45 11/24/19 16:00 69 11/24/19 16:00 45 11/24/19 15:49 87 18 45 11/24/19 15:49 74 14 100 11/24/19 15:45 45 11/24/19 15:45 81 14 105/73 (84) 99 11/24/19 14:30 84 14 141/79 (99) 97 11/24/19 14:00 83 14 137/90 (106) 96 11/24/19 14:00 15 144/96 Mechanical Ventilator 45 11/24/19 13:30 79 15 134/84 (101) 95 11/24/19 13:00 14 129/80 Mechanical Ventilator 45 11/24/19 13:00 77 14 129/80 (96) 96 Intake and Output 11/24/19 11/25/19 19:01 07:01 Intake Total 584.93623 ml 415.54434 ml Output Total 1400 ml 1430 ml Balance -815.88596 ml -1014.98983 ml Free Water 70 ml IV Total 444.95765 ml 415.34325 ml Other 70 ml Output Urine Total 1400 ml 1430 ml Laboratory Tests Test 11/25/19 08:45 White Blood Count 15.1 K/UL (4.8-10.8) H Red Blood Count 4.03 M/UL (4.20-5.40) L Hemoglobin 10.7 G/DL (12.0-16.0) L Hematocrit 35.4 % (37.0-47.0) L Mean Corpuscular Volume 88 FL (80-99) Mean Corpuscular Hemoglobin 26.6 PG (27.0-31.0) L Mean Corpuscular Hemoglobin Concent 30.3 G/DL (32.0-36.0) L Red Cell Distribution Width 17.1 % (11.6-14.8) H Platelet Count 200 K/UL (150-450) Mean Platelet Volume 6.5 FL (6.5-10.1) Neutrophils (%) (Auto) % (45.0-75.0) Lymphocytes (%) (Auto) % (20.0-45.0) Monocytes (%) (Auto) % (1.0-10.0) Eosinophils (%) (Auto) % (0.0-3.0) Basophils (%) (Auto) % (0.0-2.0) Differential Total Cells Counted 100 Neutrophils % (Manual) 97 % (45-75) H Lymphocytes % (Manual) 2 % (20-45) L Monocytes % (Manual) 1 % (1-10) Eosinophils % (Manual) 0 % (0-3) Basophils % (Manual) 0 % (0-2) Band Neutrophils 0 % (0-8) Platelet Estimate Adequate Platelet Morphology Normal Hypochromasia 1+ Anisocytosis 1+ Prothrombin Time 12.0 SEC (9.30-11.50) H Prothromb Time International Ratio 1.1 (0.9-1.1) Activated Partial Thromboplast Time 25 SEC (23-33) Sodium Level 150 MMOL/L (136-145) H Potassium Level 3.2 MMOL/L (3.5-5.1) L Chloride Level 110 MMOL/L (98-107) H Carbon Dioxide Level 37 MMOL/L (21-32) H Anion Gap 3 mmol/L (5-15) L Blood Urea Nitrogen 49 mg/dL (7-18) H Creatinine 1.1 MG/DL (0.55-1.30) Estimat Glomerular Filtration Rate 51.9 mL/min (>60) Glucose Level 123 MG/DL (74-106) H Calcium Level 8.4 MG/DL (8.5-10.1) L Total Bilirubin 1.3 MG/DL (0.2-1.0) H Direct Bilirubin 0.9 MG/DL (0.0-0.3) H Aspartate Amino Transf (AST/SGOT) 35 U/L (15-37) Alanine Aminotransferase (ALT/SGPT) 35 U/L (12-78) Alkaline Phosphatase 175 U/L (46-116) H Total Protein 6.2 G/DL (6.4-8.2) L Albumin 2.0 G/DL (3.4-5.0) L Globulin 4.2 g/dL Albumin/Globulin Ratio 0.5 (1.0-2.7) L Thyroid Stimulating Hormone (TSH) 3.603 uiU/mL (0.358-3.740) Free Thyroxine 0.65 NG/DL (0.76-1.46) L Microbiology Date/Time Source Procedure Growth Status 11/22/19 15:00 Sputum Gram Stain - Final Resulted 11/22/19 15:00 Sputum Culture - Preliminary Enterobacter Aerogenes Gram Negative Bacillus 2 Resulted Objective HEAD AND NECK: No JVD. OG tube. Tracheostomy in place. LUNGS: Coarse rhonchi. CARDIOVASCULAR: Irregularly irregular. S1 and S2 with no gallop or murmur. ABDOMEN: Soft. EXTREMITIES: 2 plus pitting edema. Gabe Snell MD Nov 25, 2019 12:50
[2019-11-25] MEDS: Cefepime HCl 2 GM in D5W 55 ML IVPB SCH ×2 (13:01→23:44)
--- NOTE | 2019-11-25 13:05 | Immediate Post-Op Evaluation ---
Immediate Post-Op Evalulation Immediate Post-Op Evalulation Procedure: EGD PEG tube placement Date of Evaluation: Nov 25, 2019 Time of Evaluation: 13:03 IV Fluids: 100 Blood Products: none Estimated Blood Loss: min Urinary Output: n/a Blood Pressure Systolic: 138 Blood Pressure Diastolic: 74 Pulse Rate: 86 Respiratory Rate: 19 O2 Sat by Pulse Oximetry: 96 Temperature (Fahrenheit): 97.8 Pain Score (1-10): 1 Nausea: No Vomiting: No Complications none Patient Status: reacts, ventilated, none Hydration Status: adequate Gildardo Koo MD Nov 25, 2019 13:05
--- NOTE | 2019-11-25 14:31 | Diagnostic Imaging Report ---
Indication: Shortness of breath Technique: XRAY Chest 1v Comparison: 11/22/2019 Findings: Interval removal of endotracheal tube and placement of a tracheostomy tube. Enteric tube remains in place. Heart size and mediastinal contours are stable. Interstitial and patchy bilateral airspace disease persists although there is slight improved aeration of the right lung compared to the prior exam. No pneumothorax is seen. Right arm PICC line is noted. Impression: Interval tracheostomy tube placement. Persistent bilateral airspace disease with slight improved aeration in the right lung.
--- NOTE | 2019-11-25 17:15 | Procedure Note ---
DATE OF PROCEDURE: 11/25/2019 SURGEON: Case Patel MD. PROCEDURE: Upper endoscopy with PEG placement. ANESTHESIA: Per Dr. Koo. INSTRUMENT: Olympus adult flexible upper endoscope. INDICATIONS: Dysphagia. REASON FOR PROCEDURE: The procedure, risks, benefits, and possible consequences, including hemorrhage, aspiration, perforation and infection, and alternative treatments, were explained to the patient/legal guardian by Dr. Case Patel and the patient/legal guardian understood and accepted these risks. PROCEDURE IN DETAIL: After informed consent was obtained and the patient was adequately sedated, Olympus upper endoscope was advanced from mouth into the second portion of the duodenum and retroflexion was performed in the stomach. Then, under endoscopic guidance and under sterile condition, a 20-Cam[place]onian pull type of G-tube was successfully placed in epigastric area. The distance from the tip of the tube to skin was about 3 cm in size. The patient tolerated the procedure very well without any complication. SUMMARY OF FINDINGS: Status post successful PEG placement. RECOMMENDATIONS: 1. Abdominal binder. 2. Elevate the head of the bed at all times. 3. G-tube flush. 4. G-tube care. 5. Start tube feeding later today. Case Patel M.D. DR: CAROLA JOB#: [id number] CC:
[2019-11-25] MEDS: DOPamine 400mg/250ml 250 ML IV SCH (17:59)
[2019-11-25] MEDS ORDERED: NS 275ml ONE (18:30)
[2019-11-25] MEDS ORDERED: Tubing IV Secondary IV ONE (18:30)
[2019-11-25] MEDS ORDERED: NS 500ML ONE (18:30)
[2019-11-25] MEDS: LORazepam Inj 2mg/ml 1ml IV PRN (18:33)
[2019-11-25] MEDS: Norepinephrine 4mg/NS Premix 250 ML IV SCH (19:49)
[2019-11-25] MEDS: Dyna-Hex 2% Top Sol 2oz TOPIC SCH (20:17)
[2019-11-26] VITALS (34 sets, daily range): BP systolic 87–191; BP diastolic 48–122
[2019-11-26 04:58] LABS: HEMATOCRIT 35.3 % (37.0-47.0); HEMOGLOBIN 10.5 G/DL (12.0-16.0); MEAN CORPUSCULAR VOLUME 89 FL (80-99); PLATELET COUNT 194 K/UL (150-450); RED BLOOD COUNT 3.97 M/UL (4.20-5.40); RED CELL DISTRIBUTION WIDTH 17.3 % (11.6-14.8); WHITE BLOOD COUNT 13.3 K/UL (4.8-10.8)
[2019-11-26 05:15] LABS: ANION GAP 4 mmol/L (5-15); BLOOD UREA NITROGEN 47 mg/dL (7-18); CALCIUM 8.4 MG/DL (8.5-10.1); CARBON DIOXIDE 35 MMOL/L (21-32); CHLORIDE 110 MMOL/L (98-107); CREATININE 1.2 MG/DL (0.55-1.30); POTASSIUM 3.8 MMOL/L (3.5-5.1); SODIUM 149 MMOL/L (136-145)
[2019-11-26] MEDS: LORazepam Inj 2mg/ml 1ml IV PRN ×2 (05:21→12:56)
[2019-11-26 05:34] LABS: ALANINE AMINOTRANSFERASE 31 U/L (12-78); ALKALINE PHOSPHATASE 185 U/L (46-116); ASPARTATE AMINO TRANSFERASE 37 U/L (15-37); BILIRUBIN,DIRECT 0.7 MG/DL (0.0-0.3); BILIRUBIN,TOTAL 1.2 MG/DL (0.2-1.0)
[2019-11-26] MEDS: NovoLOG Insulin Flexpen SUBQ SCH ×4 (05:34→23:19)
--- NOTE | 2019-11-26 05:52 | General Progress Note ---
Assessment/Plan Problem List: (1) Hypoxia ICD Codes: R09.02 - Hypoxemia SNOMED: 113361927 (2) CHF (congestive heart failure) ICD Codes: I50.9 - Heart failure, unspecified SNOMED: 38809963 (3) Diabetes ICD Codes: E11.9 - Type 2 diabetes mellitus without complications SNOMED: 61825513 (4) Fluid overload ICD Codes: E87.70 - Fluid overload, unspecified SNOMED: 32476397 (5) 2019 novel coronavirus disease (COVID-19) ICD Codes: U07.1 - COVID-19 SNOMED: 773270708 Status: unchanged Assessment/Plan: continue Levemir 12 units bid - half dose while TF is off continue Novolog sliding scale every 6 hours hypoglycemia protocol in order repeat thyroid function improved - no need for thyroid medication Subjective ROS Limited/Unobtainable: Yes Allergies: Coded Allergies: No Known Allergies (Unverified , 11/06/19) Subjective events noted glucose values are stable sedated and intubated in ICU Item Value Date Time Bedside Blood Glucose 184 mg/dl H 11/26/19 0534 Bedside Blood Glucose 148 mg/dl H 11/26/19 0000 Bedside Blood Glucose 173 mg/dl H 11/25/19 1852 Bedside Blood Glucose 139 mg/dl H 11/25/19 1224 Bedside Blood Glucose 121 mg/dl H 11/25/19 1019 Bedside Blood Glucose 126 mg/dl H 11/25/19 0600 Bedside Blood Glucose 122 mg/dl H 11/25/19 0000 Objective Last 24 Hour Vital Signs Date Time Temp Pulse Resp B/P (MAP) Pulse Ox O2 Delivery O2 Flow Rate FiO2 11/26/19 05:40 102 16 128/70 (89) 100 11/26/19 05:30 111 18 133/69 (90) 99 11/26/19 05:16 130 19 183/122 (142) 100 11/26/19 05:00 120 22 181/113 (135) 100 11/26/19 04:30 90 11 141/84 (103) 100 11/26/19 04:00 99.0 95 13 147/84 (105) 99 11/26/19 04:00 Mechanical Ventilator Mechanical Ventilator Mechanical Ventilator 11/26/19 04:00 45 11/26/19 03:30 85 13 134/81 (98) 99 11/26/19 03:14 88 14 45 11/26/19 03:03 100 11/26/19 03:00 89 15 124/68 (86) 99 11/26/19 02:30 83 14 111/67 (82) 100 11/26/19 02:00 15 122/70 Mechanical Ventilator 45 11/26/19 02:00 81 14 122/70 (87) 100 11/26/19 01:30 81 13 109/66 (80) 100 11/26/19 01:00 14 110/68 Mechanical Ventilator 45 11/26/19 01:00 81 12 110/68 (82) 100 11/26/19 00:30 84 10 125/61 (82) 98 11/26/19 00:00 98.9 82 11 109/62 (78) 97 11/26/19 00:00 13 109/62 Mechanical Ventilator 45 11/26/19 00:00 Mechanical Ventilator Mechanical Ventilator Mechanical Ventilator 11/25/19 23:28 79 14 45 11/25/19 23:01 66 11/25/19 23:00 78 0 101/56 (71) 100 11/25/19 23:00 15 112/59 Mechanical Ventilator 45 11/25/19 22:30 77 0 105/58 (74) 100 11/25/19 22:00 15 105/58 Mechanical Ventilator 45 11/25/19 22:00 75 0 93/55 (68) 100 11/25/19 21:00 82 0 105/47 (66) 100 11/25/19 21:00 15 105/47 Mechanical Ventilator 45 11/25/19 20:30 102 16 133/69 (90) 100 11/25/19 20:19 15 117/62 Mechanical Ventilator 40 11/25/19 20:18 108 117/62 11/25/19 20:01 110 11/25/19 20:00 98.9 101 14 117/62 (80) 100 11/25/19 20:00 12 117/62 Mechanical Ventilator 45 11/25/19 20:00 45 11/25/19 20:00 Mechanical Ventilator Mechanical Ventilator Mechanical Ventilator 11/25/19 19:49 133/63 8 19:31 96 15 45 11/25/19 19:30 106 10 133/63 (86) 100 11/25/19 19:00 116 13 156/85 (108) 100 11/25/19 19:00 14 156/85 Mechanical Ventilator 45 11/25/19 18:36 99.0 141 21 183/123 (143) 100 11/25/19 18:00 106 22 161/85 (110) 100 11/25/19 18:00 22 163/82 Mechanical Ventilator 45 11/25/19 17:30 98.6 95 20 163/82 (109) 99 11/25/19 17:15 Mechanical Ventilator Mechanical Ventilator Mechanical Ventilator 11/25/19 17:03 92 16 166/97 (120) 98 11/25/19 17:00 15 166/97 Mechanical Ventilator 45 11/25/19 16:30 95 14 144/77 (99) 98 11/25/19 16:00 98.8 91 15 135/83 (100) 99 11/25/19 16:00 45 11/25/19 16:00 15 135/83 Mechanical Ventilator 45 11/25/19 16:00 Mechanical Ventilator Mechanical Ventilator Mechanical Ventilator 11/25/19 15:30 86 14 138/81 (100) 98 11/25/19 15:20 83 11/25/19 15:08 95 16 45 11/25/19 15:00 82 14 124/66 (85) 98 11/25/19 15:00 14 124/66 Mechanical Ventilator 45 11/25/19 14:30 81 8 125/60 (81) 98 11/25/19 14:00 85 15 121/63 (82) 98 11/25/19 14:00 15 121/63 Mechanical Ventilator 45 11/25/19 13:05 86 19 96 11/25/19 13:00 80 16 124/65 (84) 94 11/25/19 13:00 16 124/65 Mechanical Ventilator 45 11/25/19 13:00 Mechanical Ventilator Mechanical Ventilator Mechanical Ventilator 11/25/19 12:00 98.5 78 16 133/68 (89) 97 11/25/19 12:00 16 133/68 Mechanical Ventilator 45 11/25/19 12:00 45 11/25/19 12:00 Mechanical Ventilator Mechanical Ventilator Mechanical Ventilator 11/25/19 11:19 82 11/25/19 11:00 12 128/62 Mechanical Ventilator 45 11/25/19 11:00 78 12 128/62 (84) 96 11/25/19 10:45 77 12 130/61 (84) 96 11/25/19 10:37 79 15 45 11/25/19 10:30 78 14 137/70 (92) 96 11/25/19 10:15 79 10 157/72 (100) 97 11/25/19 10:00 80 11 158/75 (102) 97 11/25/19 10:00 11 158/75 Mechanical Ventilator 45 11/25/19 09:45 78 14 146/71 (96) 99 11/25/19 09:30 79 14 139/69 (92) 99 11/25/19 09:15 76 14 143/64 (90) 100 11/25/19 09:00 15 148/65 Mechanical Ventilator 45 11/25/19 09:00 76 15 148/65 (92) 100 11/25/19 08:45 80 16 167/76 (106) 100 11/25/19 08:30 83 15 159/88 (111) 100 11/25/19 08:15 81 15 182/75 (110) 100 11/25/19 08:15 69 20 100 11/25/19 08:09 62 11/25/19 08:07 69 127/71 11/25/19 08:02 19 125/56 Mechanical Ventilator 45 11/25/19 08:00 98.2 71 14 127/71 (89) 99 11/25/19 08:00 14 125/56 Mechanical Ventilator 45 11/25/19 08:00 Mechanical Ventilator Mechanical Ventilator Mechanical Ventilator 11/25/19 08:00 45 11/25/19 07:45 70 14 125/56 (79) 99 11/25/19 07:30 71 14 121/57 (78) 99 11/25/19 07:22 84 14 45 11/25/19 07:15 70 14 126/76 (93) 99 11/25/19 07:00 15 129/59 Mechanical Ventilator 40 11/25/19 07:00 72 14 129/59 (82) 99 11/25/19 06:15 72 14 142/65 (90) 100 11/25/19 06:00 71 14 143/76 (98) 100 11/25/19 06:00 14 143/76 Mechanical Ventilator 80 Intake and Output 11/25/19 11/26/19 19:00 07:00 Intake Total 471.33 ml 754 ml Output Total 1175 ml 405 ml Balance -703.67 ml 349 ml Free Water 300 ml IV Total 431.33 ml 174 ml Tube Feeding 40 ml 280 ml Output Urine Total 1175 ml 405 ml Laboratory Tests 11/25/19 08:45: White Blood Count 15.1H, Red Blood Count 4.03L, Hemoglobin 10.7L, Hematocrit 35.4L, Mean Corpuscular Volume 88, Mean Corpuscular Hemoglobin 26.6L, Mean Corpuscular Hemoglobin Concent 30.3L, Red Cell Distribution Width 17.1H, Platelet Count 200, Mean Platelet Volume 6.5, Neutrophils (%) (Auto) , Lymphocytes (%) (Auto) , Monocytes (%) (Auto) , Eosinophils (%) (Auto) , Basophils (%) (Auto) , Differential Total Cells Counted 100, Neutrophils % ( Manual) 97H, Lymphocytes % (Manual) 2L, Monocytes % (Manual) 1, Eosinophils % ( Manual) 0, Basophils % (Manual) 0, Band Neutrophils 0, Platelet Estimate Adequate, Platelet Morphology Normal, Hypochromasia 1+, Anisocytosis 1+, Prothrombin Time 12.0H, Prothromb Time International Ratio 1.1, Activated Partial Thromboplast Time 25, Sodium Level 150H, Potassium Level 3.2L, Chloride Level 110H, Carbon Dioxide Level 37H, Anion Gap 3L, Blood Urea Nitrogen 49H, Creatinine 1.1, Estimat Glomerular Filtration Rate 51.9, Glucose Level 123H, Calcium Level 8.4L, Total Bilirubin 1.3H, Direct Bilirubin 0.9H, Aspartate Amino Transf (AST/SGOT) 35, Alanine Aminotransferase (ALT/SGPT) 35, Alkaline Phosphatase 175H, Total Protein 6.2L, Albumin 2.0L, Globulin 4.2, Albumin/ Globulin Ratio 0.5L, Thyroid Stimulating Hormone (TSH) 3.603, Free Thyroxine 0.65L 11/26/19 04:00: White Blood Count 13.3H, Red Blood Count 3.97L, Hemoglobin 10.5L, Hematocrit 35.3L, Mean Corpuscular Volume 89, Mean Corpuscular Hemoglobin 26.3L, Mean Corpuscular Hemoglobin Concent 29.6L, Red Cell Distribution Width 17.3H, Platelet Count 194, Mean Platelet Volume 6.9, Neutrophils (%) (Auto) , Lymphocytes (%) (Auto) , Monocytes (%) (Auto) , Eosinophils (%) (Auto) , Basophils (%) (Auto) , Neutrophils % (Manual) [Pending], Lymphocytes % (Manual) [Pending], Platelet Estimate [Pending], Platelet Morphology [Pending], Sodium Level 149H, Potassium Level 3.8, Chloride Level 110H, Carbon Dioxide Level 35H, Anion Gap 4L, Blood Urea Nitrogen 47H, Creatinine 1.2, Estimat Glomerular Filtration Rate 47.0, Glucose Level 167H, Calcium Level 8.4L, Total Bilirubin 1.2H, Direct Bilirubin 0.7H, Aspartate Amino Transf (AST/SGOT) 37, Alanine Aminotransferase (ALT/SGPT) 31, Alkaline Phosphatase 185H, Total Protein 6.2L, Albumin 2.0L, Uric Acid 6.6, Phosphorus Level 4.0, Magnesium Level 2.2, C- Reactive Protein, Quantitative 4.2H, Pro-B-Type Natriuretic Peptide 8562H Height (Feet): 5 Height (Inches): 1.00 Weight (Pounds): 338 Objective Current Medications Medications (Trade) Dose Ordered Sig/Robyn Route PRN Reason Start Time Stop Time Status Last Admin Dose Admin Acetaminophen (Tylenol) 650 mg Q6H PRN GT Temp >100.5 11/24/19 13:30 12/12/19 00:14 Amiodarone HCl (Cordarone) 400 mg EVERY 12 HOURS GT 11/24/19 21:00 02/18/20 09:29 11/25/19 20:18 Cefepime HCl 2 gm/ Dextrose 55 ml @ 110 mls/hr Q12H IVPB 11/25/19 12:00 12/02/19 11:59 11/25/19 23:44 Chlorhexidine Gluconate (Miya-Hex 2%) 1 applic DAILY@2000 TOPIC 11/08/19 21:30 02/06/20 21:29 11/25/19 20:17 Clonidine HCl (Catapres Tab) 0.1 mg Q4H PRN GT For High Blood Pressure 11/24/19 13:30 02/09/20 10:59 Dextrose (Dextrose 50%) 25 ml Q30M PRN IV Hypoglycemia 11/23/19 06:45 02/21/20 06:44 Dextrose (Dextrose 50%) 50 ml Q30M PRN IV Hypoglycemia 11/23/19 06:45 02/21/20 06:44 Docusate Sodium (Colace) 100 mg EVERY 12 HOURS GT 11/25/19 09:00 12/23/19 08:59 11/25/19 20:17 Dopamine HCl/ Dextrose 250 ml @ 0 mls/hr Q24H IV 11/19/19 18:36 02/17/20 18:35 11/19/19 18:41 Famotidine (Pepcid I.v.) 20 mg Q12HR IVP 11/08/19 15:30 12/08/19 15:29 11/25/19 20:17 Fentanyl Citrate 250 ml @ 0 mls/hr Q24H IV 11/24/19 11:30 02/17/20 11:29 11/25/19 20:19 Folic Acid (Folate) 2 mg DAILY GT 11/25/19 09:00 12/15/19 08:59 11/25/19 08:07 Insulin Aspart (NovoLOG) EVERY 6 HOURS SUBQ 11/15/19 12:00 02/11/20 20:59 11/26/19 05:34 Insulin Detemir (Levemir) 12 units BID SUBQ 11/24/19 09:00 02/21/20 08:59 11/25/19 18:52 Lorazepam (Ativan 2mg/ml 1ml) 1 mg Q4H PRN IV For Anxiety 11/21/19 11:00 11/28/19 10:59 11/26/19 05:21 Metoprolol Tartrate (Lopressor) 25 mg Q12HR GT 11/24/19 21:00 02/18/20 09:29 11/25/19 20:18 Norepinephrine Bitartrate 250 ml @ 0 mls/hr Q24H IV 11/19/19 19:49 02/17/20 19:48 Alphonse Ojeda MD Nov 26, 2019 05:52
--- NOTE | 2019-11-26 07:01 | General Progress Note ---
Assessment/Plan Problem List: (1) Respiratory failure ICD Codes: J96.90 - Respiratory failure, unspecified, unspecified whether with hypoxia or hypercapnia SNOMED: 497617336 (2) 2019 novel coronavirus disease (COVID-19) ICD Codes: U07.1 - COVID-19 SNOMED: 329172074 (3) Multifocal pneumonia ICD Codes: J18.9 - Pneumonia, unspecified organism SNOMED: 591541966 (4) Afib ICD Codes: I48.91 - Unspecified atrial fibrillation SNOMED: 07048690 (5) CHF (congestive heart failure) ICD Codes: I50.9 - Heart failure, unspecified SNOMED: 34708995 (6) Diabetes ICD Codes: E11.9 - Type 2 diabetes mellitus without complications SNOMED: 98548098 (7) Fluid overload ICD Codes: E87.70 - Fluid overload, unspecified SNOMED: 08637175 (8) Epistaxis ICD Codes: R04.0 - Epistaxis SNOMED: 759344958 Status: unchanged Assessment/Plan: fu H&H prn blood transfusion GTF on colace will fu Subjective ROS Limited/Unobtainable: No Allergies: Coded Allergies: No Known Allergies (Unverified , 11/06/19) Objective Last 24 Hour Vital Signs Date Time Temp Pulse Resp B/P (MAP) Pulse Ox O2 Delivery O2 Flow Rate FiO2 11/26/19 06:00 101 16 120/65 (83) 100 11/26/19 05:40 102 16 128/70 (89) 100 11/26/19 05:30 111 18 133/69 (90) 99 11/26/19 05:16 130 19 183/122 (142) 100 11/26/19 05:00 120 22 181/113 (135) 100 11/26/19 04:30 90 11 141/84 (103) 100 11/26/19 04:00 99.0 95 13 147/84 (105) 99 11/26/19 04:00 14 141/84 Mechanical Ventilator 45 11/26/19 04:00 Mechanical Ventilator Mechanical Ventilator Mechanical Ventilator 11/26/19 04:00 45 11/26/19 03:30 85 13 134/81 (98) 99 11/26/19 03:14 88 14 45 11/26/19 03:03 100 11/26/19 03:00 89 15 124/68 (86) 99 11/26/19 03:00 14 124/68 Mechanical Ventilator 45 11/26/19 02:30 83 14 111/67 (82) 100 11/26/19 02:00 15 122/70 Mechanical Ventilator 45 11/26/19 02:00 81 14 122/70 (87) 100 11/26/19 01:30 81 13 109/66 (80) 100 11/26/19 01:00 14 110/68 Mechanical Ventilator 45 11/26/19 01:00 81 12 110/68 (82) 100 11/26/19 00:30 84 10 125/61 (82) 98 11/26/19 00:00 98.9 82 11 109/62 (78) 97 11/26/19 00:00 13 109/62 Mechanical Ventilator 45 11/26/19 00:00 Mechanical Ventilator Mechanical Ventilator Mechanical Ventilator 11/25/19 23:28 79 14 45 11/25/19 23:01 66 11/25/19 23:00 78 0 101/56 (71) 100 11/25/19 23:00 15 112/59 Mechanical Ventilator 45 11/25/19 22:30 77 0 105/58 (74) 100 11/25/19 22:00 15 105/58 Mechanical Ventilator 45 11/25/19 22:00 75 0 93/55 (68) 100 11/25/19 21:00 82 0 105/47 (66) 100 11/25/19 21:00 15 105/47 Mechanical Ventilator 45 11/25/19 20:30 102 16 133/69 (90) 100 11/25/19 20:19 15 117/62 Mechanical Ventilator 40 11/25/19 20:18 108 117/62 11/25/19 20:01 110 11/25/19 20:00 98.9 101 14 117/62 (80) 100 11/25/19 20:00 12 117/62 Mechanical Ventilator 45 11/25/19 20:00 45 11/25/19 20:00 Mechanical Ventilator Mechanical Ventilator Mechanical Ventilator 11/25/19 19:49 133/63 11/25/19 19:31 96 15 45 11/25/19 19:30 106 10 133/63 (86) 100 11/25/19 19:00 116 13 156/85 (108) 100 11/25/19 19:00 14 156/85 Mechanical Ventilator 45 11/25/19 18:36 99.0 141 21 183/123 (143) 100 11/25/19 18:00 106 22 161/85 (110) 100 11/25/19 18:00 22 163/82 Mechanical Ventilator 45 11/25/19 17:30 98.6 95 20 163/82 (109) 99 11/25/19 17:15 Mechanical Ventilator Mechanical Ventilator Mechanical Ventilator 11/25/19 17:03 92 16 166/97 (120) 98 11/25/19 17:00 15 166/97 Mechanical Ventilator 45 11/25/19 16:30 95 14 144/77 (99) 98 11/25/19 16:00 98.8 91 15 135/83 (100) 99 11/25/19 16:00 45 11/25/19 16:00 15 135/83 Mechanical Ventilator 45 11/25/19 16:00 Mechanical Ventilator Mechanical Ventilator Mechanical Ventilator 11/25/19 15:30 86 14 138/81 (100) 98 11/25/19 15:20 83 11/25/19 15:08 95 16 45 11/25/19 15:00 82 14 124/66 (85) 98 11/25/19 15:00 14 124/66 Mechanical Ventilator 45 11/25/19 14:30 81 8 125/60 (81) 98 11/25/19 14:00 85 15 121/63 (82) 98 11/25/19 14:00 15 121/63 Mechanical Ventilator 45 11/25/19 13:05 86 19 96 11/25/19 13:00 80 16 124/65 (84) 94 11/25/19 13:00 16 124/65 Mechanical Ventilator 45 11/25/19 13:00 Mechanical Ventilator Mechanical Ventilator Mechanical Ventilator 11/25/19 12:00 98.5 78 16 133/68 (89) 97 11/25/19 12:00 16 133/68 Mechanical Ventilator 45 11/25/19 12:00 45 11/25/19 12:00 Mechanical Ventilator Mechanical Ventilator Mechanical Ventilator 11/25/19 11:19 82 11/25/19 11:00 12 128/62 Mechanical Ventilator 45 11/25/19 11:00 78 12 128/62 (84) 96 11/25/19 10:45 77 12 130/61 (84) 96 11/25/19 10:37 79 15 45 11/25/19 10:30 78 14 137/70 (92) 96 11/25/19 10:15 79 10 157/72 (100) 97 11/25/19 10:00 80 11 158/75 (102) 97 11/25/19 10:00 11 158/75 Mechanical Ventilator 45 11/25/19 09:45 78 14 146/71 (96) 99 11/25/19 09:30 79 14 139/69 (92) 99 11/25/19 09:15 76 14 143/64 (90) 100 11/25/19 09:00 15 148/65 Mechanical Ventilator 45 11/25/19 09:00 76 15 148/65 (92) 100 11/25/19 08:45 80 16 167/76 (106) 100 11/25/19 08:30 83 15 159/88 (111) 100 11/25/19 08:15 81 15 182/75 (110) 100 11/25/19 08:15 69 20 100 11/25/19 08:09 62 11/25/19 08:07 69 127/71 11/25/19 08:02 19 125/56 Mechanical Ventilator 45 11/25/19 08:00 98.2 71 14 127/71 (89) 99 11/25/19 08:00 14 125/56 Mechanical Ventilator 45 11/25/19 08:00 Mechanical Ventilator Mechanical Ventilator Mechanical Ventilator 11/25/19 08:00 45 11/25/19 07:45 70 14 125/56 (79) 99 11/25/19 07:30 71 14 121/57 (78) 99 11/25/19 07:22 84 14 45 11/25/19 07:15 70 14 126/76 (93) 99 Intake and Output 11/25/19 11/26/19 19:00 07:00 Intake Total 471.33 ml 1014 ml Output Total 1175 ml 505 ml Balance -703.67 ml 509 ml Free Water 450 ml IV Total 431.33 ml 194 ml Tube Feeding 40 ml 370 ml Output Urine Total 1175 ml 505 ml Laboratory Tests 11/25/19 08:45: White Blood Count 15.1H, Red Blood Count 4.03L, Hemoglobin 10.7L, Hematocrit 35.4L, Mean Corpuscular Volume 88, Mean Corpuscular Hemoglobin 26.6L, Mean Corpuscular Hemoglobin Concent 30.3L, Red Cell Distribution Width 17.1H, Platelet Count 200, Mean Platelet Volume 6.5, Neutrophils (%) (Auto) , Lymphocytes (%) (Auto) , Monocytes (%) (Auto) , Eosinophils (%) (Auto) , Basophils (%) (Auto) , Differential Total Cells Counted 100, Neutrophils % ( Manual) 97H, Lymphocytes % (Manual) 2L, Monocytes % (Manual) 1, Eosinophils % ( Manual) 0, Basophils % (Manual) 0, Band Neutrophils 0, Platelet Estimate Adequate, Platelet Morphology Normal, Hypochromasia 1+, Anisocytosis 1+, Prothrombin Time 12.0H, Prothromb Time International Ratio 1.1, Activated Partial Thromboplast Time 25, Sodium Level 150H, Potassium Level 3.2L, Chloride Level 110H, Carbon Dioxide Level 37H, Anion Gap 3L, Blood Urea Nitrogen 49H, Creatinine 1.1, Estimat Glomerular Filtration Rate 51.9, Glucose Level 123H, Calcium Level 8.4L, Total Bilirubin 1.3H, Direct Bilirubin 0.9H, Aspartate Amino Transf (AST/SGOT) 35, Alanine Aminotransferase (ALT/SGPT) 35, Alkaline Phosphatase 175H, Total Protein 6.2L, Albumin 2.0L, Globulin 4.2, Albumin/ Globulin Ratio 0.5L, Thyroid Stimulating Hormone (TSH) 3.603, Free Thyroxine 0.65L 11/26/19 04:00: White Blood Count 13.3H, Red Blood Count 3.97L, Hemoglobin 10.5L, Hematocrit 35.3L, Mean Corpuscular Volume 89, Mean Corpuscular Hemoglobin 26.3L, Mean Corpuscular Hemoglobin Concent 29.6L, Red Cell Distribution Width 17.3H, Platelet Count 194, Mean Platelet Volume 6.9, Neutrophils (%) (Auto) , Lymphocytes (%) (Auto) , Monocytes (%) (Auto) , Eosinophils (%) (Auto) , Basophils (%) (Auto) , Neutrophils % (Manual) [Pending], Lymphocytes % (Manual) [Pending], Platelet Estimate [Pending], Platelet Morphology [Pending], Sodium Level 149H, Potassium Level 3.8, Chloride Level 110H, Carbon Dioxide Level 35H, Anion Gap 4L, Blood Urea Nitrogen 47H, Creatinine 1.2, Estimat Glomerular Filtration Rate 47.0, Glucose Level 167H, Calcium Level 8.4L, Total Bilirubin 1.2H, Direct Bilirubin 0.7H, Aspartate Amino Transf (AST/SGOT) 37, Alanine Aminotransferase (ALT/SGPT) 31, Alkaline Phosphatase 185H, Total Protein 6.2L, Albumin 2.0L, Uric Acid 6.6, Phosphorus Level 4.0, Magnesium Level 2.2, C- Reactive Protein, Quantitative 4.2H, Pro-B-Type Natriuretic Peptide 8562H Height (Feet): 5 Height (Inches): 1.00 Weight (Pounds): 335 General Appearance: no apparent distress, alert EENT: normal ENT inspection Neck: supple Cardiovascular: normal rate Respiratory/Chest: decreased breath sounds Abdomen: normal bowel sounds, non tender, soft Extremities: non-tender Case Patel MD Nov 26, 2019 07:01
--- NOTE | 2019-11-26 08:15 | 48 Hour Post Anesthesia Eval ---
Post Anesthesia Evaluation Procedure: EGD PEG tube placement Date of Evaluation: Nov 26, 2019 Time of Evaluation: 08:14 Blood Pressure Systolic: 96 0: 42 Pulse Rate: 78 Respiratory Rate: 20 Temperature (Fahrenheit): 97.6 O2 Sat by Pulse Oximetry: 98 Airway: patent Nausea: No Vomiting: No Pain Intensity: 1 Hydration Status: adequate Cardiopulmonary Status: stable Mental Status/LOC: patient returned to baseline Follow-up Care/Observations: n/a Post-Anesthesia Complications: none Follow-up care needed: N/A Gildardo Koo MD Nov 26, 2019 08:15
[2019-11-26] MEDS: Docusate 100mg/10ml Liq GT SCH ×2 (08:45→21:20)
[2019-11-26] MEDS: Amiodarone 200mg tab GT SCH ×2 (08:46→21:20)
[2019-11-26] MEDS: Levemir Flexpen SUBQ SCH ×2 (09:44→18:02)
--- NOTE | 2019-11-26 10:03 | Nephrology Progress Note ---
Assessment/Plan Problem List: (1) Electrolyte imbalance (2) Diabetes (3) 2019 novel coronavirus disease (COVID-19) (4) Respiratory failure Assessment 1. COVID-19 pneumonia. 2. Diabetes and hyperglycemia 3. Hypertension. 4. Hypoxic respiratory failure 5. Morbid obesity with BMI of 65.5 6. Nasal bleeding 7. Lactic acidosis 8. Hyperkalemia Plan November 25: Lab reviewed. Patient has trach connected to vent. Patient also has PEG. Continue per consultants. Medication list reviewed. November 24: Lab reviewed. Potassium IV given. Has tracheostomy to vent. Has PEG. Continue per consultants. November 23: Labs reviewed. Creatinine higher to 1.4. Due for trach today. Suggest to stop IV Lasix. November 22: Renal parameters stable. Medication list reviewed. Continue same management per consultants. November 21: Renal parameters stable. On IV Lasix. Edematous. Will order few doses of albumin 25%. Continue per consultants. November 20: Repeat serum potassium again normal. Renal parameters normal. Continue per consultants. November 19: Repeat serum potassium normal. Renal parameters within normal limit. Continue per consultants. November 18: Levemir stopped since IV fluid and dexamethasone are discontinued and patient blood sugar went down. Renal parameters are stable. Continues to be on ventilator. Previously: Renal parameters stable Weaning is being attempted patient's urine output is low. We will give a trial of albumin and Lasix, As needed Discussed with RN Stop IV to D5W 75 cc an hour Levemir 20 units subcu every 12 hours Kayexalate for high potassium as needed Monitor electrolytes and renal parameters Tight blood sugar control, long-acting insulin as needed Keep the blood pressure in check Per orders Subjective ROS Limited/Unobtainable: Yes Objective Objective Last 24 Hour Vital Signs Date Time Temp Pulse Resp B/P (MAP) Pulse Ox O2 Delivery O2 Flow Rate FiO2 11/26/19 09:00 89 16 117/81 (93) 100 11/26/19 08:47 115 110/53 11/26/19 08:15 78 20 98 11/26/19 08:00 95 16 137/69 (91) 100 11/26/19 08:00 93 11/26/19 07:45 104 15 45 11/26/19 07:00 94 16 92/60 (71) 100 11/26/19 06:00 101 16 120/65 (83) 100 8/6/20 05:40 102 16 128/70 (89) 100 11/26/19 05:30 111 18 133/69 (90) 99 11/26/19 05:16 130 19 183/122 (142) 100 11/26/19 05:00 120 22 181/113 (135) 100 11/26/19 04:30 90 11 141/84 (103) 100 11/26/19 04:00 99.0 95 13 147/84 (105) 99 11/26/19 04:00 14 141/84 Mechanical Ventilator 45 11/26/19 04:00 Mechanical Ventilator Mechanical Ventilator Mechanical Ventilator 11/26/19 04:00 45 11/26/19 03:30 85 13 134/81 (98) 99 11/26/19 03:14 88 14 45 11/26/19 03:03 100 11/26/19 03:00 89 15 124/68 (86) 99 11/26/19 03:00 14 124/68 Mechanical Ventilator 45 11/26/19 02:30 83 14 111/67 (82) 100 11/26/19 02:00 15 122/70 Mechanical Ventilator 45 11/26/19 02:00 81 14 122/70 (87) 100 11/26/19 01:30 81 13 109/66 (80) 100 11/26/19 01:00 14 110/68 Mechanical Ventilator 45 11/26/19 01:00 81 12 110/68 (82) 100 11/26/19 00:30 84 10 125/61 (82) 98 11/26/19 00:00 98.9 82 11 109/62 (78) 97 11/26/19 00:00 13 109/62 Mechanical Ventilator 45 11/26/19 00:00 Mechanical Ventilator Mechanical Ventilator Mechanical Ventilator 11/25/19 23:28 79 14 45 11/25/19 23:01 66 11/25/19 23:00 78 0 101/56 (71) 100 11/25/19 23:00 15 112/59 Mechanical Ventilator 45 11/25/19 22:30 77 0 105/58 (74) 100 11/25/19 22:00 15 105/58 Mechanical Ventilator 45 11/25/19 22:00 75 0 93/55 (68) 100 11/25/19 21:00 82 0 105/47 (66) 100 11/25/19 21:00 15 105/47 Mechanical Ventilator 45 11/25/19 20:30 102 16 133/69 (90) 100 11/25/19 20:19 15 117/62 Mechanical Ventilator 40 11/25/19 20:18 108 117/62 11/25/19 20:01 110 11/25/19 20:00 98.9 101 14 117/62 (80) 100 11/25/19 20:00 12 117/62 Mechanical Ventilator 45 11/25/19 20:00 45 11/25/19 20:00 Mechanical Ventilator Mechanical Ventilator Mechanical Ventilator 11/25/19 19:49 133/63 11/25/19 19:31 96 15 45 11/25/19 19:30 106 10 133/63 (86) 100 11/25/19 19:00 116 13 156/85 (108) 100 11/25/19 19:00 14 156/85 Mechanical Ventilator 45 11/25/19 18:36 99.0 141 21 183/123 (143) 100 11/25/19 18:00 106 22 161/85 (110) 100 11/25/19 18:00 22 163/82 Mechanical Ventilator 45 11/25/19 17:30 98.6 95 20 163/82 (109) 99 11/25/19 17:15 Mechanical Ventilator Mechanical Ventilator Mechanical Ventilator 11/25/19 17:03 92 16 166/97 (120) 98 11/25/19 17:00 15 166/97 Mechanical Ventilator 45 11/25/19 16:30 95 14 144/77 (99) 98 11/25/19 16:00 98.8 91 15 135/83 (100) 99 11/25/19 16:00 45 11/25/19 16:00 15 135/83 Mechanical Ventilator 45 11/25/19 16:00 Mechanical Ventilator Mechanical Ventilator Mechanical Ventilator 11/25/19 15:30 86 14 138/81 (100) 98 11/25/19 15:20 83 11/25/19 15:08 95 16 45 11/25/19 15:00 82 14 124/66 (85) 98 11/25/19 15:00 14 124/66 Mechanical Ventilator 45 11/25/19 14:30 81 8 125/60 (81) 98 11/25/19 14:00 85 15 121/63 (82) 98 8/5/20 14:00 15 121/63 Mechanical Ventilator 45 11/25/19 13:05 86 19 96 11/25/19 13:00 80 16 124/65 (84) 94 11/25/19 13:00 16 124/65 Mechanical Ventilator 45 11/25/19 13:00 Mechanical Ventilator Mechanical Ventilator Mechanical Ventilator 11/25/19 12:00 98.5 78 16 133/68 (89) 97 11/25/19 12:00 16 133/68 Mechanical Ventilator 45 11/25/19 12:00 45 11/25/19 12:00 Mechanical Ventilator Mechanical Ventilator Mechanical Ventilator 11/25/19 11:19 82 11/25/19 11:00 12 128/62 Mechanical Ventilator 45 11/25/19 11:00 78 12 128/62 (84) 96 11/25/19 10:45 77 12 130/61 (84) 96 11/25/19 10:37 79 15 45 11/25/19 10:30 78 14 137/70 (92) 96 11/25/19 10:15 79 10 157/72 (100) 97 Intake and Output 11/25/19 11/26/19 19:00 07:00 Intake Total 471.33 ml 1064 ml Output Total 1175 ml 555 ml Balance -703.67 ml 509 ml Free Water 450 ml IV Total 431.33 ml 194 ml Tube Feeding 40 ml 420 ml Output Urine Total 1175 ml 555 ml Laboratory Tests 11/25/19 23:34: POC Whole Blood Glucose [Pending] 11/26/19 04:00: White Blood Count 13.3H, Red Blood Count 3.97L, Hemoglobin 10.5L, Hematocrit 35.3L, Mean Corpuscular Volume 89, Mean Corpuscular Hemoglobin 26.3L, Mean Corpuscular Hemoglobin Concent 29.6L, Red Cell Distribution Width 17.3H, Platelet Count 194, Mean Platelet Volume 6.9, Neutrophils (%) (Auto) , Lymphocytes (%) (Auto) , Monocytes (%) (Auto) , Eosinophils (%) (Auto) , Basophils (%) (Auto) , Differential Total Cells Counted 100, Neutrophils % ( Manual) 95H, Lymphocytes % (Manual) 3L, Monocytes % (Manual) 2, Eosinophils % ( Manual) 0, Basophils % (Manual) 0, Band Neutrophils 0, Platelet Estimate Adequate, Platelet Morphology Normal, Hypochromasia 1+, Anisocytosis 1+, Sodium Level 149H, Potassium Level 3.8, Chloride Level 110H, Carbon Dioxide Level 35H, Anion Gap 4L, Blood Urea Nitrogen 47H, Creatinine 1.2, Estimat Glomerular Filtration Rate 47.0, Glucose Level 167H, Uric Acid 6.6, Calcium Level 8.4L, Phosphorus Level 4.0, Magnesium Level 2.2, Total Bilirubin 1.2H, Direct Bilirubin 0.7H, Aspartate Amino Transf (AST/SGOT) 37, Alanine Aminotransferase ( ALT/SGPT) 31, Alkaline Phosphatase 185H, C-Reactive Protein, Quantitative 4.2H, Pro-B-Type Natriuretic Peptide 8562H, Total Protein 6.2L, Albumin 2.0L 11/26/19 05:24: POC Whole Blood Glucose [Pending] Height (Feet): 5 Height (Inches): 1.00 Weight (Pounds): 335 General Appearance: no apparent distress EENT: other - Trach to vent Cardiovascular: tachycardia Respiratory/Chest: decreased breath sounds Abdomen: distended Papa Young MD Nov 26, 2019 10:03
--- NOTE | 2019-11-26 10:38 | Cardiac Electrophysiology PN ---
Assessment/Plan Assessment/Plan 1. Paroxysmal atrial fibrillation. On metoprolol 25 q 12 and Amiodarone 400 q 12 hr. Off anticoagulation for hematuria and black stool EF 55% on echo. 2. S/P Shock. Off pressors. Tolerating Lopressor 25 bid 3. COVID positive pneumonia. 4. Diabetes, on insulin. 5. Respiratory failure on the Vent. S/P Tracheostomy 11/24/19 6. S/P Massive nasal bleed. 7. Severe LE edema.Lasix drip DCed 8. Dysphagia, S/P PEG 11/25/19 DW [employer] Subjective Subjective In ICU on the vent with 35% Fio2. S/P tracheostomy 11/24/19 and PEG 11/25/19 On Lasix drip 5mg/hr for severe LE edema. In atrial fib rate controlled on Lopressor 25 bid. Objective Last 24 Hour Vital Signs Date Time Temp Pulse Resp B/P (MAP) Pulse Ox O2 Delivery O2 Flow Rate FiO2 11/26/19 09:00 89 16 117/81 (93) 100 11/26/19 08:47 115 110/53 11/26/19 08:15 78 20 98 11/26/19 08:00 45 11/26/19 08:00 95 16 137/69 (91) 100 11/26/19 08:00 93 11/26/19 07:45 104 15 45 11/26/19 07:00 94 16 92/60 (71) 100 11/26/19 06:00 101 16 120/65 (83) 100 11/26/19 05:40 102 16 128/70 (89) 100 11/26/19 05:30 111 18 133/69 (90) 99 11/26/19 05:16 130 19 183/122 (142) 100 11/26/19 05:00 120 22 181/113 (135) 100 11/26/19 04:30 90 11 141/84 (103) 100 11/26/19 04:00 99.0 95 13 147/84 (105) 99 11/26/19 04:00 14 141/84 Mechanical Ventilator 45 11/26/19 04:00 Mechanical Ventilator Mechanical Ventilator Mechanical Ventilator 11/26/19 04:00 45 11/26/19 03:30 85 13 134/81 (98) 99 11/26/19 03:14 88 14 45 11/26/19 03:03 100 8/6/20 03:00 89 15 124/68 (86) 99 11/26/19 03:00 14 124/68 Mechanical Ventilator 45 11/26/19 02:30 83 14 111/67 (82) 100 11/26/19 02:00 15 122/70 Mechanical Ventilator 45 11/26/19 02:00 81 14 122/70 (87) 100 11/26/19 01:30 81 13 109/66 (80) 100 11/26/19 01:00 14 110/68 Mechanical Ventilator 45 11/26/19 01:00 81 12 110/68 (82) 100 11/26/19 00:30 84 10 125/61 (82) 98 11/26/19 00:00 98.9 82 11 109/62 (78) 97 11/26/19 00:00 13 109/62 Mechanical Ventilator 45 11/26/19 00:00 Mechanical Ventilator Mechanical Ventilator Mechanical Ventilator 11/25/19 23:28 79 14 45 11/25/19 23:01 66 11/25/19 23:00 78 0 101/56 (71) 100 11/25/19 23:00 15 112/59 Mechanical Ventilator 45 11/25/19 22:30 77 0 105/58 (74) 100 11/25/19 22:00 15 105/58 Mechanical Ventilator 45 11/25/19 22:00 75 0 93/55 (68) 100 11/25/19 21:00 82 0 105/47 (66) 100 11/25/19 21:00 15 105/47 Mechanical Ventilator 45 11/25/19 20:30 102 16 133/69 (90) 100 11/25/19 20:19 15 117/62 Mechanical Ventilator 40 11/25/19 20:18 108 117/62 11/25/19 20:01 110 11/25/19 20:00 98.9 101 14 117/62 (80) 100 11/25/19 20:00 12 117/62 Mechanical Ventilator 45 11/25/19 20:00 45 11/25/19 20:00 Mechanical Ventilator Mechanical Ventilator Mechanical Ventilator 11/25/19 19:49 133/63 11/25/19 19:31 96 15 45 11/25/19 19:30 106 10 133/63 (86) 100 11/25/19 19:00 116 13 156/85 (108) 100 11/25/19 19:00 14 156/85 Mechanical Ventilator 45 11/25/19 18:36 99.0 141 21 183/123 (143) 100 11/25/19 18:00 106 22 161/85 (110) 100 11/25/19 18:00 22 163/82 Mechanical Ventilator 45 11/25/19 17:30 98.6 95 20 163/82 (109) 99 11/25/19 17:15 Mechanical Ventilator Mechanical Ventilator Mechanical Ventilator 11/25/19 17:03 92 16 166/97 (120) 98 11/25/19 17:00 15 166/97 Mechanical Ventilator 45 11/25/19 16:30 95 14 144/77 (99) 98 11/25/19 16:00 98.8 91 15 135/83 (100) 99 11/25/19 16:00 45 11/25/19 16:00 15 135/83 Mechanical Ventilator 45 11/25/19 16:00 Mechanical Ventilator Mechanical Ventilator Mechanical Ventilator 11/25/19 15:30 86 14 138/81 (100) 98 11/25/19 15:20 83 11/25/19 15:08 95 16 45 11/25/19 15:00 82 14 124/66 (85) 98 11/25/19 15:00 14 124/66 Mechanical Ventilator 45 11/25/19 14:30 81 8 125/60 (81) 98 11/25/19 14:00 85 15 121/63 (82) 98 11/25/19 14:00 15 121/63 Mechanical Ventilator 45 11/25/19 13:05 86 19 96 11/25/19 13:00 80 16 124/65 (84) 94 11/25/19 13:00 16 124/65 Mechanical Ventilator 45 11/25/19 13:00 Mechanical Ventilator Mechanical Ventilator Mechanical Ventilator 11/25/19 12:00 98.5 78 16 133/68 (89) 97 11/25/19 12:00 16 133/68 Mechanical Ventilator 45 11/25/19 12:00 45 11/25/19 12:00 Mechanical Ventilator Mechanical Ventilator Mechanical Ventilator 11/25/19 11:19 82 11/25/19 11:00 12 128/62 Mechanical Ventilator 45 11/25/19 11:00 78 12 128/62 (84) 96 11/25/19 10:45 77 12 130/61 (84) 96 11/25/19 10:37 79 15 45 Intake and Output 11/25/19 11/26/19 19:00 07:00 Intake Total 471.33 ml 1064 ml Output Total 1175 ml 555 ml Balance -703.67 ml 509 ml Free Water 450 ml IV Total 431.33 ml 194 ml Tube Feeding 40 ml 420 ml Output Urine Total 1175 ml 555 ml Laboratory Tests Test 11/25/19 23:34 11/26/19 04:00 11/26/19 05:24 POC Whole Blood Glucose Pending Pending White Blood Count 13.3 K/UL (4.8-10.8) H Red Blood Count 3.97 M/UL (4.20-5.40) L Hemoglobin 10.5 G/DL (12.0-16.0) L Hematocrit 35.3 % (37.0-47.0) L Mean Corpuscular Volume 89 FL (80-99) Mean Corpuscular Hemoglobin 26.3 PG (27.0-31.0) L Mean Corpuscular Hemoglobin Concent 29.6 G/DL (32.0-36.0) L Red Cell Distribution Width 17.3 % (11.6-14.8) H Platelet Count 194 K/UL (150-450) Mean Platelet Volume 6.9 FL (6.5-10.1) Neutrophils (%) (Auto) % (45.0-75.0) Lymphocytes (%) (Auto) % (20.0-45.0) Monocytes (%) (Auto) % (1.0-10.0) Eosinophils (%) (Auto) % (0.0-3.0) Basophils (%) (Auto) % (0.0-2.0) Differential Total Cells Counted 100 Neutrophils % (Manual) 95 % (45-75) H Lymphocytes % (Manual) 3 % (20-45) L Monocytes % (Manual) 2 % (1-10) Eosinophils % (Manual) 0 % (0-3) Basophils % (Manual) 0 % (0-2) Band Neutrophils 0 % (0-8) Platelet Estimate Adequate Platelet Morphology Normal Hypochromasia 1+ Anisocytosis 1+ Sodium Level 149 MMOL/L (136-145) H Potassium Level 3.8 MMOL/L (3.5-5.1) Chloride Level 110 MMOL/L (98-107) H Carbon Dioxide Level 35 MMOL/L (21-32) H Anion Gap 4 mmol/L (5-15) L Blood Urea Nitrogen 47 mg/dL (7-18) H Creatinine 1.2 MG/DL (0.55-1.30) Estimat Glomerular Filtration Rate 47.0 mL/min (>60) Glucose Level 167 MG/DL (74-106) H Uric Acid 6.6 MG/DL (2.6-7.2) Calcium Level 8.4 MG/DL (8.5-10.1) L Phosphorus Level 4.0 MG/DL (2.5-4.9) Magnesium Level 2.2 MG/DL (1.8-2.4) Total Bilirubin 1.2 MG/DL (0.2-1.0) H Direct Bilirubin 0.7 MG/DL (0.0-0.3) H Aspartate Amino Transf (AST/SGOT) 37 U/L (15-37) Alanine Aminotransferase (ALT/SGPT) 31 U/L (12-78) Alkaline Phosphatase 185 U/L (46-116) H C-Reactive Protein, Quantitative 4.2 mg/dL (0.00-0.90) H Pro-B-Type Natriuretic Peptide 8562 pg/mL (0-125) H Total Protein 6.2 G/DL (6.4-8.2) L Albumin 2.0 G/DL (3.4-5.0) L Objective HEAD AND NECK: No JVD. OG tube. Tracheostomy in place. LUNGS: Coarse rhonchi. CARDIOVASCULAR: Irregularly irregular. S1 and S2 with no gallop or murmur. ABDOMEN: Soft.PEG EXTREMITIES: 2 plus pitting edema. Gabe Snell MD Nov 26, 2019 10:38
--- NOTE | 2019-11-26 12:44 | Hematology/Onc Progress Note ---
Assessment/Plan Assessment/Plan # Anemia of chronic disease due to underlying chronic medical issues, multifactorial v Gi bleed in this case likely related covid19+++++++++ --> Anemia workup has been ordered, rule out gi bleed --> No evidence of hemolysis is noted, peripheral smear has been reviewed. --> Hgb goal >7. Transfuse prn. --> Epogen or iron at this time is not particularly indicated --> Medications have been reviewed --> low threshold for gi evaluation in case has occult + --> hgb 10-->9.8-->9.2-->9.7-->10.7->10->11->10.2->10.6->9.4->10.8->9.8-->10 # Leukocytosis/elevated white blood cell count, unspecified likely related to covid19 --> have reviewed peripheral smear and bandemia/neutrophilia noted --> continue antibiotics if they have been started by ID team zosyn --> on remdesivir, dexamathasone --> monitor for resolution --> wbc 12->11-->11-->13->16-->21-->17-->14-->14->13 # COVID 19 pneumonia --> on vent --> respiratory failure --> s/p vent reintubation 11/08 --> 11/23 trach was done # Diabetes mellitus --> iss and bs goal <140 # Dysphagia --> peg 11/24 # Hypertension --> sbp goal <150 # Dvt ppx scds Appreciate consultation and dw RN Subjective Constitutional: Denies: no symptoms, chills, fever, malaise, weakness, other HEENT: Denies: no symptoms, eye pain, blurred vision, tearing, double vision, ear pain, ear discharge, nose pain, nose congestion, throat pain, throat swelling, mouth pain, mouth swelling, other Cardiovascular: Denies: no symptoms, chest pain, edema, irregular heart rate, lightheadedness, palpitations, syncope, other Respiratory: Denies: no symptoms, cough, shortness of breath, SOB with excertion, SOB at rest, sputum, wheezing, other Gastrointestinal/Abdominal: Denies: no symptoms, abdomen distended, abdominal pain, black stools, tarry stools, blood in stool, constipated, diarrhea, difficulty swallowing, nausea, poor appetite, poor fluid intake, rectal bleeding , vomiting, other Genitourinary: Denies: no symptoms, burning, discharge, frequency, flank pain, hematuria, incontinence, pain, urgency, other Neurologic/Psychiatric: Denies: no symptoms, anxiety, depressed, emotional problems, headache, numbness, paresthesia, pre-existing deficit, seizure, tingling, tremors, weakness, other Endocrine: Denies: no symptoms, excessive sweating, flushing, intolerance to cold, intolerance to heat, increased hunger, increased thirst, increased urine, unexplained weight gain, unexplained weight loss, other Hematologic/Lymphatic: Denies: no symptoms, anemia, easy bleeding, easy bruising, adenopathy, other Allergies: Coded Allergies: No Known Allergies (Unverified , 11/06/19) Subjective 11/09 weaning prn, meds reviewed, labs noted, hgb 9.2 11/10 on vent, no bleeding, hgb remains low, jimena Rn Jose R in am 11/11 on vent, fluids, ogf tube as well, labs pending in am 11/12 remains altered, no bleeding, labs reviewed, cbc noted 11/13 attempted weaning, but did not do well, no bleeding, hgb 10 11/14 intubated, weaning, on vent, with og, labs noted, abx 11/15 labs noted, no bleedign, weaning protocol, no night sweats, elev wbc, with fevers 11/16 no bleeding, jimena Broussard rn in the am, on vent, weaning but failed 11/17 meds reviewed, no night sweats, jimena rn, no bleeding 11/18 extubated, on nc at this time, no bleeding, meds reviewed 11/19 labs noted, no bleeding, on vent again, weaning 11/21 labs reviewed, hgb 9.4, no hemolysis, very difficult to obtain repeat lab draw in am 11/22 unable to wean vent, labs noted, plan for trach tomorrow, on fentanyl, still edematous 11/23 is for trach today and peg tomorrow, stil edematous, on lasix gtt 11/24 meds noted, no bleeding, on vent, for peg this am, trach functional 11/25 labs reviewed, no bleeding, meds noted, obtunded, hr better Objective Objective Current Medications Medications (Trade) Dose Ordered Sig/Robyn Route PRN Reason Start Time Stop Time Status Last Admin Dose Admin Acetaminophen (Tylenol) 650 mg Q6H PRN GT Temp >100.5 11/24/19 13:30 12/12/19 00:14 Amiodarone HCl (Cordarone) 400 mg EVERY 12 HOURS GT 11/24/19 21:00 02/18/20 09:29 11/26/19 08:46 Cefepime HCl 2 gm/ Dextrose 55 ml @ 110 mls/hr Q12H IVPB 11/25/19 12:00 12/02/19 11:59 11/25/19 23:44 Chlorhexidine Gluconate (Miya-Hex 2%) 1 applic DAILY@2000 TOPIC 11/08/19 21:30 02/06/20 21:29 11/25/19 20:17 Clonidine HCl (Catapres Tab) 0.1 mg Q4H PRN GT For High Blood Pressure 11/24/19 13:30 02/09/20 10:59 Dextrose (Dextrose 50%) 25 ml Q30M PRN IV Hypoglycemia 11/23/19 06:45 02/21/20 06:44 Dextrose (Dextrose 50%) 50 ml Q30M PRN IV Hypoglycemia 11/23/19 06:45 02/21/20 06:44 Docusate Sodium (Colace) 100 mg EVERY 12 HOURS GT 11/25/19 09:00 12/23/19 08:59 11/26/19 08:45 Dopamine HCl/ Dextrose 250 ml @ 0 mls/hr Q24H IV 11/19/19 18:36 02/17/20 18:35 11/19/19 18:41 Famotidine (Pepcid I.v.) 20 mg Q12HR IVP 11/08/19 15:30 12/08/19 15:29 11/26/19 08:45 Folic Acid (Folate) 2 mg DAILY GT 11/25/19 09:00 12/15/19 08:59 11/26/19 08:46 Insulin Aspart (NovoLOG) EVERY 6 HOURS SUBQ 11/15/19 12:00 02/11/20 20:59 11/26/19 05:34 Insulin Detemir (Levemir) 12 units BID SUBQ 11/24/19 09:00 02/21/20 08:59 11/26/19 09:44 Lorazepam (Ativan 2mg/ml 1ml) 2 mg Q3H PRN IV For Anxiety 11/26/19 07:45 12/03/19 07:44 Metoprolol Tartrate (Lopressor) 25 mg Q12HR GT 11/24/19 21:00 02/18/20 09:29 11/26/19 08:47 Norepinephrine Bitartrate 250 ml @ 0 mls/hr Q24H IV 11/19/19 19:49 02/17/20 19:48 Last 24 Hour Vital Signs Date Time Temp Pulse Resp B/P (MAP) Pulse Ox O2 Delivery O2 Flow Rate FiO2 11/26/19 12:00 101 11/26/19 12:00 98.8 95 18 135/55 (81) 100 11/26/19 12:00 45 11/26/19 12:00 Mechanical Ventilator Mechanical Ventilator Mechanical Ventilator 11/26/19 11:34 102 17 45 11/26/19 11:05 95 16 110/65 (80) 100 11/26/19 10:30 93 16 103/55 (71) 100 11/26/19 10:00 99.7 91 16 121/66 (84) 100 11/26/19 09:00 89 16 117/81 (93) 100 11/26/19 08:47 115 110/53 11/26/19 08:15 78 20 98 11/26/19 08:00 45 11/26/19 08:00 95 16 137/69 (91) 100 11/26/19 08:00 Mechanical Ventilator Mechanical Ventilator Mechanical Ventilator 11/26/19 08:00 93 11/26/19 07:45 104 15 45 11/26/19 07:00 94 16 92/60 (71) 100 11/26/19 06:00 101 16 120/65 (83) 100 11/26/19 05:40 102 16 128/70 (89) 100 11/26/19 05:30 111 18 133/69 (90) 99 11/26/19 05:16 130 19 183/122 (142) 100 11/26/19 05:00 120 22 181/113 (135) 100 11/26/19 04:30 90 11 141/84 (103) 100 11/26/19 04:00 99.0 95 13 147/84 (105) 99 11/26/19 04:00 14 141/84 Mechanical Ventilator 45 11/26/19 04:00 Mechanical Ventilator Mechanical Ventilator Mechanical Ventilator 11/26/19 04:00 45 11/26/19 03:30 85 13 134/81 (98) 99 11/26/19 03:14 88 14 45 11/26/19 03:03 100 11/26/19 03:00 89 15 124/68 (86) 99 11/26/19 03:00 14 124/68 Mechanical Ventilator 45 11/26/19 02:30 83 14 111/67 (82) 100 11/26/19 02:00 15 122/70 Mechanical Ventilator 45 11/26/19 02:00 81 14 122/70 (87) 100 11/26/19 01:30 81 13 109/66 (80) 100 11/26/19 01:00 14 110/68 Mechanical Ventilator 45 11/26/19 01:00 81 12 110/68 (82) 100 11/26/19 00:30 84 10 125/61 (82) 98 11/26/19 00:00 98.9 82 11 109/62 (78) 97 11/26/19 00:00 13 109/62 Mechanical Ventilator 45 11/26/19 00:00 Mechanical Ventilator Mechanical Ventilator Mechanical Ventilator 11/25/19 23:28 79 14 45 11/25/19 23:01 66 11/25/19 23:00 78 0 101/56 (71) 100 11/25/19 23:00 15 112/59 Mechanical Ventilator 45 11/25/19 22:30 77 0 105/58 (74) 100 11/25/19 22:00 15 105/58 Mechanical Ventilator 45 11/25/19 22:00 75 0 93/55 (68) 100 11/25/19 21:00 82 0 105/47 (66) 100 11/25/19 21:00 15 105/47 Mechanical Ventilator 45 11/25/19 20:30 102 16 133/69 (90) 100 11/25/19 20:19 15 117/62 Mechanical Ventilator 40 11/25/19 20:18 108 117/62 11/25/19 20:01 110 11/25/19 20:00 98.9 101 14 117/62 (80) 100 11/25/19 20:00 12 117/62 Mechanical Ventilator 45 11/25/19 20:00 45 11/25/19 20:00 Mechanical Ventilator Mechanical Ventilator Mechanical Ventilator 11/25/19 19:49 133/63 11/25/19 19:31 96 15 45 11/25/19 19:30 106 10 133/63 (86) 100 11/25/19 19:00 116 13 156/85 (108) 100 11/25/19 19:00 14 156/85 Mechanical Ventilator 45 11/25/19 18:36 99.0 141 21 183/123 (143) 100 11/25/19 18:00 106 22 161/85 (110) 100 11/25/19 18:00 22 163/82 Mechanical Ventilator 45 11/25/19 17:30 98.6 95 20 163/82 (109) 99 11/25/19 17:15 Mechanical Ventilator Mechanical Ventilator Mechanical Ventilator 11/25/19 17:03 92 16 166/97 (120) 98 11/25/19 17:00 15 166/97 Mechanical Ventilator 45 11/25/19 16:30 95 14 144/77 (99) 98 11/25/19 16:00 98.8 91 15 135/83 (100) 99 11/25/19 16:00 45 11/25/19 16:00 15 135/83 Mechanical Ventilator 45 11/25/19 16:00 Mechanical Ventilator Mechanical Ventilator Mechanical Ventilator 11/25/19 15:30 86 14 138/81 (100) 98 11/25/19 15:20 83 11/25/19 15:08 95 16 45 11/25/19 15:00 82 14 124/66 (85) 98 11/25/19 15:00 14 124/66 Mechanical Ventilator 45 11/25/19 14:30 81 8 125/60 (81) 98 11/25/19 14:00 85 15 121/63 (82) 98 11/25/19 14:00 15 121/63 Mechanical Ventilator 45 11/25/19 13:05 86 19 96 11/25/19 13:00 80 16 124/65 (84) 94 11/25/19 13:00 16 124/65 Mechanical Ventilator 45 11/25/19 13:00 Mechanical Ventilator Mechanical Ventilator Mechanical Ventilator 11/25/19 12:00 98.5 78 16 133/68 (89) 97 11/25/19 12:00 16 133/68 Mechanical Ventilator 45 11/25/19 12:00 45 11/25/19 12:00 Mechanical Ventilator Mechanical Ventilator Mechanical Ventilator 11/25/19 11:19 82 11/25/19 11:00 12 128/62 Mechanical Ventilator 45 11/25/19 11:00 78 12 128/62 (84) 96 11/25/19 10:45 77 12 130/61 (84) 96 11/25/19 10:37 79 15 45 11/25/19 10:30 78 14 137/70 (92) 96 11/25/19 10:15 79 10 157/72 (100) 97 11/25/19 10:00 80 11 158/75 (102) 97 11/25/19 10:00 11 158/75 Mechanical Ventilator 45 11/25/19 09:45 78 14 146/71 (96) 99 11/25/19 09:30 79 14 139/69 (92) 99 11/25/19 09:15 76 14 143/64 (90) 100 11/25/19 09:00 15 148/65 Mechanical Ventilator 45 11/25/19 09:00 76 15 148/65 (92) 100 11/25/19 08:45 80 16 167/76 (106) 100 11/25/19 08:30 83 15 159/88 (111) 100 11/25/19 08:15 81 15 182/75 (110) 100 11/25/19 08:15 69 20 100 11/25/19 08:09 62 11/25/19 08:07 69 127/71 11/25/19 08:02 19 125/56 Mechanical Ventilator 45 11/25/19 08:00 98.2 71 14 127/71 (89) 99 11/25/19 08:00 14 125/56 Mechanical Ventilator 45 11/25/19 08:00 Mechanical Ventilator Mechanical Ventilator Mechanical Ventilator 11/25/19 08:00 45 11/25/19 07:45 70 14 125/56 (79) 99 11/25/19 07:30 71 14 121/57 (78) 99 11/25/19 07:22 84 14 45 11/25/19 07:15 70 14 126/76 (93) 99 11/25/19 07:00 15 129/59 Mechanical Ventilator 40 11/25/19 07:00 72 14 129/59 (82) 99 11/25/19 06:15 72 14 142/65 (90) 100 11/25/19 06:00 71 14 143/76 (98) 100 11/25/19 06:00 14 143/76 Mechanical Ventilator 80 11/25/19 05:45 70 14 125/60 (81) 100 11/25/19 05:30 73 14 145/88 (107) 100 11/25/19 05:15 72 14 136/60 (85) 100 11/25/19 05:00 14 131/64 Mechanical Ventilator 80 11/25/19 05:00 69 14 131/64 (86) 100 11/25/19 04:45 70 14 137/61 (86) 99 11/25/19 04:30 72 15 160/78 (105) 98 11/25/19 04:15 75 17 179/89 (119) 98 11/25/19 04:03 61 11/25/19 04:00 Mechanical Ventilator Mechanical Ventilator Mechanical Ventilator 11/25/19 04:00 65 15 111/61 (78) 97 11/25/19 04:00 45 11/25/19 04:00 14 111/61 Mechanical Ventilator 80 11/25/19 03:45 65 15 116/57 (76) 97 11/25/19 03:30 65 15 123/56 (78) 97 11/25/19 03:22 62 15 45 11/25/19 03:15 66 15 130/68 (88) 97 11/25/19 03:00 15 111/64 Mechanical Ventilator 80 11/25/19 03:00 67 15 111/64 (80) 97 11/25/19 02:30 65 15 110/51 (70) 97 11/25/19 02:15 66 15 116/64 (81) 97 11/25/19 02:00 16 145/78 Mechanical Ventilator 80 11/25/19 02:00 68 15 145/78 (100) 97 11/25/19 01:45 64 15 94/49 (64) 97 11/25/19 01:30 63 15 111/54 (73) 97 11/25/19 01:15 62 15 99/55 (70) 97 11/25/19 01:00 14 100/49 Mechanical Ventilator 80 11/25/19 01:00 62 15 100/49 (66) 97 11/25/19 00:45 62 15 100/54 (69) 97 820 00:30 61 15 100/53 (69) 97 820 00:15 62 15 105/55 (72) 97 820 00:00 Mechanical Ventilator Mechanical Ventilator Mechanical Ventilator 8 00:00 45 820 00:00 15 103/52 Mechanical Ventilator 80 8 00:00 98.1 62 15 103/52 (69) 97 8 23:45 63 15 109/58 (75) 97 8 23:33 57 8/08/09 23:30 62 15 101/56 (71) 97 820 23:30 66 15 45 8/08/09 23:15 62 15 106/60 (75) 97 8 23:00 15 100/55 Mechanical Ventilator 40 11/24/19 23:00 61 15 100/55 (70) 97 820 22:45 62 15 110/52 (71) 97 820 22:30 61 15 109/57 (74) 98 820 22:15 61 15 100/50 (67) 98 820 22:00 15 105/55 Mechanical Ventilator 40 11/24/19 22:00 62 15 105/55 (72) 98 8 21:45 64 15 107/49 (68) 98 8/20 21:30 64 15 99/56 (70) 98 8//20 21:23 20 116/60 Mechanical Ventilator 80 11/24/19 21:21 67 115/50 8/20 21:15 66 15 115/60 (78) 98 8//20 21:00 15 114/55 Mechanical Ventilator 40 820 21:00 67 15 114/55 (74) 98 8//20 20:45 67 15 116/67 (83) 98 820 20:35 70 8/20 20:30 66 15 103/58 (73) 98 8//20 20:15 65 15 99/57 (71) 98 8//20 20:00 98.2 66 15 101/53 (69) 98 820 20:00 15 101/53 Mechanical Ventilator 40 820 20:00 45 820 20:00 Mechanical Ventilator Mechanical Ventilator Mechanical Ventilator 11/24/19 19:49 103/58 11/24/19 19:45 66 15 111/55 (73) 98 11/24/19 19:30 67 15 110/61 (77) 99 11/24/19 19:30 65 16 45 11/24/19 19:15 69 15 103/53 (70) 98 11/24/19 19:00 71 15 104/55 (71) 99 11/24/19 19:00 15 101/57 Mechanical Ventilator 45 11/24/19 18:36 103/53 11/24/19 18:30 68 15 110/56 (74) 99 11/24/19 18:15 68 15 106/63 (77) 99 11/24/19 18:00 16 120/60 Mechanical Ventilator 45 11/24/19 18:00 71 15 110/73 (85) 99 11/24/19 17:45 72 15 120/60 (80) 98 11/24/19 17:30 65 15 102/60 (74) 99 11/24/19 17:15 68 16 112/55 (74) 97 11/24/19 17:00 16 107/71 Mechanical Ventilator 45 11/24/19 17:00 71 15 121/65 (83) 97 11/24/19 16:45 70 16 107/71 (83) 97 11/24/19 16:30 72 16 117/70 (86) 97 11/24/19 16:15 72 16 115/67 (83) 97 11/24/19 16:00 98.7 83 16 111/72 (85) 98 11/24/19 16:00 Mechanical Ventilator Mechanical Ventilator Mechanical Ventilator 11/24/19 16:00 16 116/67 Mechanical Ventilator 45 11/24/19 16:00 69 11/24/19 16:00 45 11/24/19 15:49 87 18 45 11/24/19 15:49 74 14 100 11/24/19 15:45 45 11/24/19 15:45 81 14 105/73 (84) 99 11/24/19 14:30 84 14 141/79 (99) 97 11/24/19 14:00 83 14 137/90 (106) 96 11/24/19 14:00 15 144/96 Mechanical Ventilator 45 11/24/19 13:30 79 15 134/84 (101) 95 11/24/19 13:00 14 129/80 Mechanical Ventilator 45 11/24/19 13:00 77 14 129/80 (96) 96 Intake and Output 11/25/19 11/26/19 19:00 07:00 Intake Total 471.33 ml 1064 ml Output Total 1175 ml 555 ml Balance -703.67 ml 509 ml Free Water 450 ml IV Total 431.33 ml 194 ml Tube Feeding 40 ml 420 ml Output Urine Total 1175 ml 555 ml Labs Test 11/24/19 03:55 11/24/19 07:14 11/24/19 09:01 11/24/19 12:40 White Blood Count 13.9 K/UL (4.8-10.8) Red Blood Count 3.70 M/UL (4.20-5.40) Hemoglobin 9.8 G/DL (12.0-16.0) Hematocrit 33.4 % (37.0-47.0) Mean Corpuscular Volume 90 FL (80-99) Mean Corpuscular Hemoglobin 26.4 PG (27.0-31.0) Mean Corpuscular Hemoglobin Concent 29.3 G/DL (32.0-36.0) Red Cell Distribution Width 17.4 % (11.6-14.8) Platelet Count 224 K/UL (150-450) Mean Platelet Volume 6.3 FL (6.5-10.1) Neutrophils (%) (Auto) % (45.0-75.0) Lymphocytes (%) (Auto) % (20.0-45.0) Monocytes (%) (Auto) % (1.0-10.0) Eosinophils (%) (Auto) % (0.0-3.0) Basophils (%) (Auto) % (0.0-2.0) Differential Total Cells Counted 100 Neutrophils % (Manual) 95 % (45-75) Lymphocytes % (Manual) 1 % (20-45) Monocytes % (Manual) 4 % (1-10) Eosinophils % (Manual) 0 % (0-3) Basophils % (Manual) 0 % (0-2) Band Neutrophils 0 % (0-8) Platelet Estimate Adequate Platelet Morphology Normal Hypochromasia 1+ Anisocytosis 1+ Prothrombin Time 11.5 SEC (9.30-11.50) Prothromb Time International Ratio 1.0 (0.9-1.1) Activated Partial Thromboplast Time 25 SEC (23-33) Sodium Level 145 MMOL/L (136-145) Potassium Level 4.0 MMOL/L (3.5-5.1) Chloride Level 106 MMOL/L (98-107) Carbon Dioxide Level 34 MMOL/L (21-32) Anion Gap 5 mmol/L (5-15) Blood Urea Nitrogen 54 mg/dL (7-18) Creatinine 1.4 MG/DL (0.55-1.30) Estimat Glomerular Filtration Rate 39.3 mL/min (>60) Glucose Level 191 MG/DL (74-106) Calcium Level 8.9 MG/DL (8.5-10.1) Phosphorus Level 4.5 MG/DL (2.5-4.9) Magnesium Level 2.1 MG/DL (1.8-2.4) Total Bilirubin 0.9 MG/DL (0.2-1.0) Aspartate Amino Transf (AST/SGOT) 35 U/L (15-37) Alanine Aminotransferase (ALT/SGPT) 37 U/L (12-78) Alkaline Phosphatase 213 U/L (46-116) C-Reactive Protein, Quantitative 4.7 mg/dL (0.00-0.90) Pro-B-Type Natriuretic Peptide 9387 pg/mL (0-125) Total Protein 6.9 G/DL (6.4-8.2) Albumin 2.3 G/DL (3.4-5.0) Globulin 4.6 g/dL Albumin/Globulin Ratio 0.5 (1.0-2.7) Arterial Blood pH 7.372 (7.350-7.450) Arterial Blood Partial Pressure CO2 60.3 mmHg (35.0-45.0) Arterial Blood Partial Pressure O2 107.8 mmHg (75.0-100.0) Arterial Blood HCO3 34.2 mmol/L (22.0-26.0) Arterial Blood Oxygen Saturation 97.8 % (95-100) Arterial Blood Base Excess 7.4 (-2-2) Steve Test Positive POC Whole Blood Glucose 175 MG/DL (74-106) Test 11/24/19 17:32 11/25/19 00:07 11/25/19 08:45 11/25/19 23:34 POC Whole Blood Glucose 141 MG/DL (74-106) 122 MG/DL (74-106) White Blood Count 15.1 K/UL (4.8-10.8) Red Blood Count 4.03 M/UL (4.20-5.40) Hemoglobin 10.7 G/DL (12.0-16.0) Hematocrit 35.4 % (37.0-47.0) Mean Corpuscular Volume 88 FL (80-99) Mean Corpuscular Hemoglobin 26.6 PG (27.0-31.0) Mean Corpuscular Hemoglobin Concent 30.3 G/DL (32.0-36.0) Red Cell Distribution Width 17.1 % (11.6-14.8) Platelet Count 200 K/UL (150-450) Mean Platelet Volume 6.5 FL (6.5-10.1) Neutrophils (%) (Auto) % (45.0-75.0) Lymphocytes (%) (Auto) % (20.0-45.0) Monocytes (%) (Auto) % (1.0-10.0) Eosinophils (%) (Auto) % (0.0-3.0) Basophils (%) (Auto) % (0.0-2.0) Differential Total Cells Counted 100 Neutrophils % (Manual) 97 % (45-75) Lymphocytes % (Manual) 2 % (20-45) Monocytes % (Manual) 1 % (1-10) Eosinophils % (Manual) 0 % (0-3) Basophils % (Manual) 0 % (0-2) Band Neutrophils 0 % (0-8) Platelet Estimate Adequate Platelet Morphology Normal Hypochromasia 1+ Anisocytosis 1+ Prothrombin Time 12.0 SEC (9.30-11.50) Prothromb Time International Ratio 1.1 (0.9-1.1) Activated Partial Thromboplast Time 25 SEC (23-33) Sodium Level 150 MMOL/L (136-145) Potassium Level 3.2 MMOL/L (3.5-5.1) Chloride Level 110 MMOL/L (98-107) Carbon Dioxide Level 37 MMOL/L (21-32) Anion Gap 3 mmol/L (5-15) Blood Urea Nitrogen 49 mg/dL (7-18) Creatinine 1.1 MG/DL (0.55-1.30) Estimat Glomerular Filtration Rate 51.9 mL/min (>60) Glucose Level 123 MG/DL (74-106) Calcium Level 8.4 MG/DL (8.5-10.1) Total Bilirubin 1.3 MG/DL (0.2-1.0) Direct Bilirubin 0.9 MG/DL (0.0-0.3) Aspartate Amino Transf (AST/SGOT) 35 U/L (15-37) Alanine Aminotransferase (ALT/SGPT) 35 U/L (12-78) Alkaline Phosphatase 175 U/L (46-116) Total Protein 6.2 G/DL (6.4-8.2) Albumin 2.0 G/DL (3.4-5.0) Globulin 4.2 g/dL Albumin/Globulin Ratio 0.5 (1.0-2.7) Thyroid Stimulating Hormone (TSH) 3.603 uiU/mL (0.358-3.740) Free Thyroxine 0.65 NG/DL (0.76-1.46) Test 11/26/19 04:00 11/26/19 05:24 White Blood Count 13.3 K/UL (4.8-10.8) Red Blood Count 3.97 M/UL (4.20-5.40) Hemoglobin 10.5 G/DL (12.0-16.0) Hematocrit 35.3 % (37.0-47.0) Mean Corpuscular Volume 89 FL (80-99) Mean Corpuscular Hemoglobin 26.3 PG (27.0-31.0) Mean Corpuscular Hemoglobin Concent 29.6 G/DL (32.0-36.0) Red Cell Distribution Width 17.3 % (11.6-14.8) Platelet Count 194 K/UL (150-450) Mean Platelet Volume 6.9 FL (6.5-10.1) Neutrophils (%) (Auto) % (45.0-75.0) Lymphocytes (%) (Auto) % (20.0-45.0) Monocytes (%) (Auto) % (1.0-10.0) Eosinophils (%) (Auto) % (0.0-3.0) Basophils (%) (Auto) % (0.0-2.0) Differential Total Cells Counted 100 Neutrophils % (Manual) 95 % (45-75) Lymphocytes % (Manual) 3 % (20-45) Monocytes % (Manual) 2 % (1-10) Eosinophils % (Manual) 0 % (0-3) Basophils % (Manual) 0 % (0-2) Band Neutrophils 0 % (0-8) Platelet Estimate Adequate Platelet Morphology Normal Hypochromasia 1+ Anisocytosis 1+ Sodium Level 149 MMOL/L (136-145) Potassium Level 3.8 MMOL/L (3.5-5.1) Chloride Level 110 MMOL/L (98-107) Carbon Dioxide Level 35 MMOL/L (21-32) Anion Gap 4 mmol/L (5-15) Blood Urea Nitrogen 47 mg/dL (7-18) Creatinine 1.2 MG/DL (0.55-1.30) Estimat Glomerular Filtration Rate 47.0 mL/min (>60) Glucose Level 167 MG/DL (74-106) Uric Acid 6.6 MG/DL (2.6-7.2) Calcium Level 8.4 MG/DL (8.5-10.1) Phosphorus Level 4.0 MG/DL (2.5-4.9) Magnesium Level 2.2 MG/DL (1.8-2.4) Total Bilirubin 1.2 MG/DL (0.2-1.0) Direct Bilirubin 0.7 MG/DL (0.0-0.3) Aspartate Amino Transf (AST/SGOT) 37 U/L (15-37) Alanine Aminotransferase (ALT/SGPT) 31 U/L (12-78) Alkaline Phosphatase 185 U/L (46-116) C-Reactive Protein, Quantitative 4.2 mg/dL (0.00-0.90) Pro-B-Type Natriuretic Peptide 8562 pg/mL (0-125) Total Protein 6.2 G/DL (6.4-8.2) Albumin 2.0 G/DL (3.4-5.0) Height (Feet): 5 Height (Inches): 1.00 Weight (Pounds): 335 Objective Physical Exam: Vitals: reviewed General: NAD HEENT: nc, at Neck: supple Chest: clear breath sounds on vent++trach+ Cardiovascular: RRR, no s3, s4 Abdomen: soft, nontender, nd++peg Extremities: no cce, normal range of motion Neuro: alert and oriented Ismael Fischer MD Nov 26, 2019 12:44
[2019-11-26] MEDS: Acetaminophen 650mg/20.3ml GT PRN (12:56)
[2019-11-26] MEDS: Cefepime HCl 2 GM in D5W 55 ML IVPB SCH ×2 (12:57→23:19)
--- NOTE | 2019-11-26 13:44 | General Progress Note ---
Assessment/Plan Problem List: (1) Afib ICD Codes: I48.91 - Unspecified atrial fibrillation SNOMED: 88900074 (2) Epistaxis ICD Codes: R04.0 - Epistaxis SNOMED: 935375180 (3) Weak ICD Codes: R53.1 - Weakness SNOMED: 60641391 (4) UTI (urinary tract infection) ICD Codes: N39.0 - Urinary tract infection, site not specified SNOMED: 80809310 (5) Diabetes ICD Codes: E11.9 - Type 2 diabetes mellitus without complications SNOMED: 07624112 (6) CHF (congestive heart failure) ICD Codes: I50.9 - Heart failure, unspecified SNOMED: 67473875 (7) Multifocal pneumonia ICD Codes: J18.9 - Pneumonia, unspecified organism SNOMED: 518521565 (8) 2019 novel coronavirus disease (COVID-19) ICD Codes: U07.1 - COVID-19 SNOMED: 487993183 (9) Respiratory failure ICD Codes: J96.90 - Respiratory failure, unspecified, unspecified whether with hypoxia or hypercapnia SNOMED: 550708879 Status: unchanged Assessment/Plan: vent abx bp bs control cbc bmp am Subjective Constitutional: Reports: weakness Allergies: Coded Allergies: No Known Allergies (Unverified , 11/06/19) All Systems: reviewed and negative except above Subjective trach vent in icu Objective Last 24 Hour Vital Signs Date Time Temp Pulse Resp B/P (MAP) Pulse Ox O2 Delivery O2 Flow Rate FiO2 11/26/19 13:00 94 16 128/72 (90) 100 11/26/19 12:00 101 11/26/19 12:00 98.8 95 18 135/55 (81) 100 11/26/19 12:00 45 11/26/19 12:00 Mechanical Ventilator Mechanical Ventilator Mechanical Ventilator 11/26/19 11:34 102 17 45 11/26/19 11:05 95 16 110/65 (80) 100 11/26/19 10:30 93 16 103/55 (71) 100 11/26/19 10:00 99.7 91 16 121/66 (84) 100 11/26/19 09:00 89 16 117/81 (93) 100 11/26/19 08:47 115 110/53 11/26/19 08:15 78 20 98 11/26/19 08:00 45 11/26/19 08:00 95 16 137/69 (91) 100 11/26/19 08:00 Mechanical Ventilator Mechanical Ventilator Mechanical Ventilator 11/26/19 08:00 93 11/26/19 07:45 104 15 45 11/26/19 07:00 94 16 92/60 (71) 100 11/26/19 06:00 101 16 120/65 (83) 100 11/26/19 05:40 102 16 128/70 (89) 100 11/26/19 05:30 111 18 133/69 (90) 99 11/26/19 05:16 130 19 183/122 (142) 100 11/26/19 05:00 120 22 181/113 (135) 100 11/26/19 04:30 90 11 141/84 (103) 100 11/26/19 04:00 99.0 95 13 147/84 (105) 99 11/26/19 04:00 14 141/84 Mechanical Ventilator 45 11/26/19 04:00 Mechanical Ventilator Mechanical Ventilator Mechanical Ventilator 11/26/19 04:00 45 11/26/19 03:30 85 13 134/81 (98) 99 11/26/19 03:14 88 14 45 11/26/19 03:03 100 11/26/19 03:00 89 15 124/68 (86) 99 11/26/19 03:00 14 124/68 Mechanical Ventilator 45 11/26/19 02:30 83 14 111/67 (82) 100 11/26/19 02:00 15 122/70 Mechanical Ventilator 45 11/26/19 02:00 81 14 122/70 (87) 100 11/26/19 01:30 81 13 109/66 (80) 100 11/26/19 01:00 14 110/68 Mechanical Ventilator 45 11/26/19 01:00 81 12 110/68 (82) 100 11/26/19 00:30 84 10 125/61 (82) 98 11/26/19 00:00 98.9 82 11 109/62 (78) 97 11/26/19 00:00 13 109/62 Mechanical Ventilator 45 11/26/19 00:00 Mechanical Ventilator Mechanical Ventilator Mechanical Ventilator 11/25/19 23:28 79 14 45 11/25/19 23:01 66 11/25/19 23:00 78 0 101/56 (71) 100 11/25/19 23:00 15 112/59 Mechanical Ventilator 45 11/25/19 22:30 77 0 105/58 (74) 100 11/25/19 22:00 15 105/58 Mechanical Ventilator 45 11/25/19 22:00 75 0 93/55 (68) 100 11/25/19 21:00 82 0 105/47 (66) 100 11/25/19 21:00 15 105/47 Mechanical Ventilator 45 11/25/19 20:30 102 16 133/69 (90) 100 11/25/19 20:19 15 117/62 Mechanical Ventilator 40 11/25/19 20:18 108 117/62 11/25/19 20:01 110 11/25/19 20:00 98.9 101 14 117/62 (80) 100 11/25/19 20:00 12 117/62 Mechanical Ventilator 45 11/25/19 20:00 45 11/25/19 20:00 Mechanical Ventilator Mechanical Ventilator Mechanical Ventilator 11/25/19 19:49 133/63 11/25/19 19:31 96 15 45 11/25/19 19:30 106 10 133/63 (86) 100 11/25/19 19:00 116 13 156/85 (108) 100 11/25/19 19:00 14 156/85 Mechanical Ventilator 45 11/25/19 18:36 99.0 141 21 183/123 (143) 100 11/25/19 18:00 106 22 161/85 (110) 100 11/25/19 18:00 22 163/82 Mechanical Ventilator 45 11/25/19 17:30 98.6 95 20 163/82 (109) 99 11/25/19 17:15 Mechanical Ventilator Mechanical Ventilator Mechanical Ventilator 11/25/19 17:03 92 16 166/97 (120) 98 11/25/19 17:00 15 166/97 Mechanical Ventilator 45 11/25/19 16:30 95 14 144/77 (99) 98 11/25/19 16:00 98.8 91 15 135/83 (100) 99 11/25/19 16:00 45 11/25/19 16:00 15 135/83 Mechanical Ventilator 45 11/25/19 16:00 Mechanical Ventilator Mechanical Ventilator Mechanical Ventilator 11/25/19 15:30 86 14 138/81 (100) 98 11/25/19 15:20 83 11/25/19 15:08 95 16 45 11/25/19 15:00 82 14 124/66 (85) 98 11/25/19 15:00 14 124/66 Mechanical Ventilator 45 11/25/19 14:30 81 8 125/60 (81) 98 11/25/19 14:00 85 15 121/63 (82) 98 11/25/19 14:00 15 121/63 Mechanical Ventilator 45 Intake and Output 11/25/19 11/26/19 19:00 07:00 Intake Total 471.33 ml 1064 ml Output Total 1175 ml 555 ml Balance -703.67 ml 509 ml Free Water 450 ml IV Total 431.33 ml 194 ml Tube Feeding 40 ml 420 ml Output Urine Total 1175 ml 555 ml Laboratory Tests 11/25/19 23:34: POC Whole Blood Glucose [Pending] 11/26/19 04:00: White Blood Count 13.3H, Red Blood Count 3.97L, Hemoglobin 10.5L, Hematocrit 35.3L, Mean Corpuscular Volume 89, Mean Corpuscular Hemoglobin 26.3L, Mean Corpuscular Hemoglobin Concent 29.6L, Red Cell Distribution Width 17.3H, Platelet Count 194, Mean Platelet Volume 6.9, Neutrophils (%) (Auto) , Lymphocytes (%) (Auto) , Monocytes (%) (Auto) , Eosinophils (%) (Auto) , Basophils (%) (Auto) , Differential Total Cells Counted 100, Neutrophils % ( Manual) 95H, Lymphocytes % (Manual) 3L, Monocytes % (Manual) 2, Eosinophils % ( Manual) 0, Basophils % (Manual) 0, Band Neutrophils 0, Platelet Estimate Adequate, Platelet Morphology Normal, Hypochromasia 1+, Anisocytosis 1+, Sodium Level 149H, Potassium Level 3.8, Chloride Level 110H, Carbon Dioxide Level 35H, Anion Gap 4L, Blood Urea Nitrogen 47H, Creatinine 1.2, Estimat Glomerular Filtration Rate 47.0, Glucose Level 167H, Uric Acid 6.6, Calcium Level 8.4L, Phosphorus Level 4.0, Magnesium Level 2.2, Total Bilirubin 1.2H, Direct Bilirubin 0.7H, Aspartate Amino Transf (AST/SGOT) 37, Alanine Aminotransferase ( ALT/SGPT) 31, Alkaline Phosphatase 185H, C-Reactive Protein, Quantitative 4.2H, Pro-B-Type Natriuretic Peptide 8562H, Total Protein 6.2L, Albumin 2.0L 11/26/19 05:24: POC Whole Blood Glucose [Pending] Height (Feet): 5 Height (Inches): 1.00 Weight (Pounds): 335 General Appearance: lethargic EENT: normal ENT inspection Neck: normal alignment Cardiovascular: normal rate, regular rhythm Respiratory/Chest: no respiratory distress, no accessory muscle use Extremities: normal inspection Neurologic: motor weakness Skin: normal pigmentation Gustabo Carter DO Nov 26, 2019 13:43
--- NOTE | 2019-11-26 14:26 | Infectious Diseases Prog Note ---
"Assessment/Plan Assessment/Plan antibiotics : cefepime A 1. COVID 19 pneumonia on 45 percent Fi O2, PEEP 5, saturation 98 percent s/p remdesivir s/p ivermectin 7.31.20 2. respiratory failure s/p tracheostomy 3. leucocytosis likely secondary to steroids 4. diabetes mellitus 5. hypertension 6. obesity 7. enterobacter | proteus | staph aureus pneumonia P 1. continue cefepime 2. start iv vancomycin 3. will follow up cultures 4. continue isolation Subjective ROS Limited/Unobtainable: Yes Allergies: Coded Allergies: No Known Allergies (Unverified , 11/06/19) Objective Last 24 Hour Vital Signs Date Time Temp Pulse Resp B/P (MAP) Pulse Ox O2 Delivery O2 Flow Rate FiO2 11/26/19 14:00 80 17 117/60 (79) 95 11/26/19 13:26 99.9 11/26/19 13:00 94 16 128/72 (90) 100 11/26/19 12:00 101 11/26/19 12:00 100.0 95 18 135/55 (81) 100 11/26/19 12:00 45 11/26/19 12:00 Mechanical Ventilator Mechanical Ventilator Mechanical Ventilator 11/26/19 11:34 102 17 45 11/26/19 11:05 95 16 110/65 (80) 100 11/26/19 10:30 93 16 103/55 (71) 100 11/26/19 10:00 99.7 91 16 121/66 (84) 100 11/26/19 09:00 89 16 117/81 (93) 100 11/26/19 08:47 115 110/53 11/26/19 08:15 78 20 98 11/26/19 08:00 45 11/26/19 08:00 95 16 137/69 (91) 100 11/26/19 08:00 Mechanical Ventilator Mechanical Ventilator Mechanical Ventilator 11/26/19 08:00 93 11/26/19 07:45 104 15 45 11/26/19 07:00 94 16 92/60 (71) 100 11/26/19 06:00 101 16 120/65 (83) 100 11/26/19 05:40 102 16 128/70 (89) 100 11/26/19 05:30 111 18 133/69 (90) 99 11/26/19 05:16 130 19 183/122 (142) 100 8/6/20 05:00 120 22 181/113 (135) 100 11/26/19 04:30 90 11 141/84 (103) 100 11/26/19 04:00 99.0 95 13 147/84 (105) 99 11/26/19 04:00 14 141/84 Mechanical Ventilator 45 11/26/19 04:00 Mechanical Ventilator Mechanical Ventilator Mechanical Ventilator 11/26/19 04:00 45 11/26/19 03:30 85 13 134/81 (98) 99 11/26/19 03:14 88 14 45 11/26/19 03:03 100 11/26/19 03:00 89 15 124/68 (86) 99 11/26/19 03:00 14 124/68 Mechanical Ventilator 45 11/26/19 02:30 83 14 111/67 (82) 100 11/26/19 02:00 15 122/70 Mechanical Ventilator 45 11/26/19 02:00 81 14 122/70 (87) 100 11/26/19 01:30 81 13 109/66 (80) 100 11/26/19 01:00 14 110/68 Mechanical Ventilator 45 11/26/19 01:00 81 12 110/68 (82) 100 11/26/19 00:30 84 10 125/61 (82) 98 11/26/19 00:00 98.9 82 11 109/62 (78) 97 11/26/19 00:00 13 109/62 Mechanical Ventilator 45 11/26/19 00:00 Mechanical Ventilator Mechanical Ventilator Mechanical Ventilator 11/25/19 23:28 79 14 45 11/25/19 23:01 66 11/25/19 23:00 78 0 101/56 (71) 100 11/25/19 23:00 15 112/59 Mechanical Ventilator 45 11/25/19 22:30 77 0 105/58 (74) 100 11/25/19 22:00 15 105/58 Mechanical Ventilator 45 11/25/19 22:00 75 0 93/55 (68) 100 11/25/19 21:00 82 0 105/47 (66) 100 11/25/19 21:00 15 105/47 Mechanical Ventilator 45 11/25/19 20:30 102 16 133/69 (90) 100 11/25/19 20:19 15 117/62 Mechanical Ventilator 40 11/25/19 20:18 108 117/62 11/25/19 20:01 110 11/25/19 20:00 98.9 101 14 117/62 (80) 100 11/25/19 20:00 12 117/62 Mechanical Ventilator 45 11/25/19 20:00 45 11/25/19 20:00 Mechanical Ventilator Mechanical Ventilator Mechanical Ventilator 11/25/19 19:49 133/63 11/25/19 19:31 96 15 45 11/25/19 19:30 106 10 133/63 (86) 100 11/25/19 19:00 116 13 156/85 (108) 100 11/25/19 19:00 14 156/85 Mechanical Ventilator 45 11/25/19 18:36 99.0 141 21 183/123 (143) 100 11/25/19 18:00 106 22 161/85 (110) 100 11/25/19 18:00 22 163/82 Mechanical Ventilator 45 11/25/19 17:30 98.6 95 20 163/82 (109) 99 11/25/19 17:15 Mechanical Ventilator Mechanical Ventilator Mechanical Ventilator 11/25/19 17:03 92 16 166/97 (120) 98 11/25/19 17:00 15 166/97 Mechanical Ventilator 45 11/25/19 16:30 95 14 144/77 (99) 98 11/25/19 16:00 98.8 91 15 135/83 (100) 99 11/25/19 16:00 45 11/25/19 16:00 15 135/83 Mechanical Ventilator 45 11/25/19 16:00 Mechanical Ventilator Mechanical Ventilator Mechanical Ventilator 11/25/19 15:30 86 14 138/81 (100) 98 11/25/19 15:20 83 11/25/19 15:08 95 16 45 11/25/19 15:00 82 14 124/66 (85) 98 11/25/19 15:00 14 124/66 Mechanical Ventilator 45 11/25/19 14:30 81 8 125/60 (81) 98 Height (Feet): 5 Height (Inches): 1.00 Weight (Pounds): 335 HEENT: status post trach Laboratory Tests Test 11/25/19 23:34 11/26/19 04:00 11/26/19 05:24 POC Whole Blood Glucose Pending Pending White Blood Count 13.3 K/UL (4.8-10.8) H Red Blood Count 3.97 M/UL (4.20-5.40) L Hemoglobin 10.5 G/DL (12.0-16.0) L Hematocrit 35.3 % (37.0-47.0) L Mean Corpuscular Volume 89 FL (80-99) Mean Corpuscular Hemoglobin 26.3 PG (27.0-31.0) L Mean Corpuscular Hemoglobin Concent 29.6 G/DL (32.0-36.0) L Red Cell Distribution Width 17.3 % (11.6-14.8) H Platelet Count 194 K/UL (150-450) Mean Platelet Volume 6.9 FL (6.5-10.1) Neutrophils (%) (Auto) % (45.0-75.0) Lymphocytes (%) (Auto) % (20.0-45.0) Monocytes (%) (Auto) % (1.0-10.0) Eosinophils (%) (Auto) % (0.0-3.0) Basophils (%) (Auto) % (0.0-2.0) Differential Total Cells Counted 100 Neutrophils % (Manual) 95 % (45-75) H Lymphocytes % (Manual) 3 % (20-45) L Monocytes % (Manual) 2 % (1-10) Eosinophils % (Manual) 0 % (0-3) Basophils % (Manual) 0 % (0-2) Band Neutrophils 0 % (0-8) Platelet Estimate Adequate Platelet Morphology Normal Hypochromasia 1+ Anisocytosis 1+ Sodium Level 149 MMOL/L (136-145) H Potassium Level 3.8 MMOL/L (3.5-5.1) Chloride Level 110 MMOL/L (98-107) H Carbon Dioxide Level 35 MMOL/L (21-32) H Anion Gap 4 mmol/L (5-15) L Blood Urea Nitrogen 47 mg/dL (7-18) H Creatinine 1.2 MG/DL (0.55-1.30) Estimat Glomerular Filtration Rate 47.0 mL/min (>60) Glucose Level 167 MG/DL (74-106) H Uric Acid 6.6 MG/DL (2.6-7.2) Calcium Level 8.4 MG/DL (8.5-10.1) L Phosphorus Level 4.0 MG/DL (2.5-4.9) Magnesium Level 2.2 MG/DL (1.8-2.4) Total Bilirubin 1.2 MG/DL (0.2-1.0) H Direct Bilirubin 0.7 MG/DL (0.0-0.3) H Aspartate Amino Transf (AST/SGOT) 37 U/L (15-37) Alanine Aminotransferase (ALT/SGPT) 31 U/L (12-78) Alkaline Phosphatase 185 U/L (46-116) H C-Reactive Protein, Quantitative 4.2 mg/dL (0.00-0.90) H Pro-B-Type Natriuretic Peptide 8562 pg/mL (0-125) H Total Protein 6.2 G/DL (6.4-8.2) L Albumin 2.0 G/DL (3.4-5.0) L Current Medications Medications (Trade) Dose Ordered Sig/Robyn Route PRN Reason Start Time Stop Time Status Last Admin Dose Admin Acetaminophen (Tylenol) 650 mg Q6H PRN GT Temp >100.5 11/24/19 13:30 12/12/19 00:14 11/26/19 12:56 Amiodarone HCl (Cordarone) 400 mg EVERY 12 HOURS GT 11/24/19 21:00 02/18/20 09:29 11/26/19 08:46 Cefepime HCl 2 gm/ Dextrose 55 ml @ 110 mls/hr Q12H IVPB 11/25/19 12:00 12/02/19 11:59 11/26/19 12:57 Chlorhexidine Gluconate (Miya-Hex 2%) 1 applic DAILY@2000 TOPIC 11/08/19 21:30 02/06/20 21:29 11/25/19 20:17 Clonidine HCl (Catapres Tab) 0.1 mg Q4H PRN GT For High Blood Pressure 11/24/19 13:30 02/09/20 10:59 Dextrose (Dextrose 50%) 25 ml Q30M PRN IV Hypoglycemia 11/23/19 06:45 02/21/20 06:44 Dextrose (Dextrose 50%) 50 ml Q30M PRN IV Hypoglycemia 11/23/19 06:45 02/21/20 06:44 Docusate Sodium (Colace) 100 mg EVERY 12 HOURS GT 11/25/19 09:00 12/23/19 08:59 11/26/19 08:45 Dopamine HCl/ Dextrose 250 ml @ 0 mls/hr Q24H IV 11/19/19 18:36 02/17/20 18:35 11/19/19 18:41 Famotidine (Pepcid I.v.) 20 mg Q12HR IVP 11/08/19 15:30 12/08/19 15:29 11/26/19 08:45 Folic Acid (Folate) 2 mg DAILY GT 11/25/19 09:00 12/15/19 08:59 11/26/19 08:46 Insulin Aspart (NovoLOG) EVERY 6 HOURS SUBQ 11/15/19 12:00 02/11/20 20:59 11/26/19 13:02 Insulin Detemir (Levemir) 12 units BID SUBQ 11/24/19 09:00 02/21/20 08:59 11/26/19 09:44 Lorazepam (Ativan 2mg/ml 1ml) 2 mg Q3H PRN IV For Anxiety 11/26/19 07:45 12/03/19 07:44 11/26/19 12:56 Metoprolol Tartrate (Lopressor) 25 mg Q12HR GT 11/24/19 21:00 02/18/20 09:29 11/26/19 08:47 Norepinephrine Bitartrate 250 ml @ 0 mls/hr Q24H IV 11/19/19 19:49 02/17/20 19:48 Rosette Bowman MD Nov 26, 2019 14:26"
--- NOTE | 2019-11-26 15:06 | Pulmonology Progress Note ---
Subjective ROS Limited/Unobtainable: Yes Interval Events: Re-intubated on 11/19/19; Status post tracheostomy 11/24/2019 Constitutional: Denies: fever HEENT: Repors: no symptoms Respiratory: Reports: dry cough, shortness of breath Cardiovascular: Reports: no symptoms Gastrointestinal/Abdominal: Reports: no symptoms Allergies: Coded Allergies: No Known Allergies (Unverified , 11/06/19) All Systems: reviewed and negative except above Objective Last 24 Hour Vital Signs Date Time Temp Pulse Resp B/P (MAP) Pulse Ox O2 Delivery O2 Flow Rate FiO2 11/26/19 14:00 80 17 117/60 (79) 95 11/26/19 13:26 99.9 11/26/19 13:00 94 16 128/72 (90) 100 11/26/19 12:00 101 11/26/19 12:00 100.0 95 18 135/55 (81) 100 11/26/19 12:00 45 11/26/19 12:00 Mechanical Ventilator Mechanical Ventilator Mechanical Ventilator 11/26/19 11:34 102 17 45 11/26/19 11:05 95 16 110/65 (80) 100 11/26/19 10:30 93 16 103/55 (71) 100 11/26/19 10:00 99.7 91 16 121/66 (84) 100 11/26/19 09:00 89 16 117/81 (93) 100 11/26/19 08:47 115 110/53 11/26/19 08:15 78 20 98 11/26/19 08:00 45 11/26/19 08:00 95 16 137/69 (91) 100 11/26/19 08:00 Mechanical Ventilator Mechanical Ventilator Mechanical Ventilator 11/26/19 08:00 93 11/26/19 07:45 104 15 45 11/26/19 07:00 94 16 92/60 (71) 100 11/26/19 06:00 101 16 120/65 (83) 100 11/26/19 05:40 102 16 128/70 (89) 100 11/26/19 05:30 111 18 133/69 (90) 99 11/26/19 05:16 130 19 183/122 (142) 100 11/26/19 05:00 120 22 181/113 (135) 100 11/26/19 04:30 90 11 141/84 (103) 100 11/26/19 04:00 99.0 95 13 147/84 (105) 99 11/26/19 04:00 14 141/84 Mechanical Ventilator 45 11/26/19 04:00 Mechanical Ventilator Mechanical Ventilator Mechanical Ventilator 11/26/19 04:00 45 11/26/19 03:30 85 13 134/81 (98) 99 11/26/19 03:14 88 14 45 11/26/19 03:03 100 11/26/19 03:00 89 15 124/68 (86) 99 11/26/19 03:00 14 124/68 Mechanical Ventilator 45 11/26/19 02:30 83 14 111/67 (82) 100 11/26/19 02:00 15 122/70 Mechanical Ventilator 45 11/26/19 02:00 81 14 122/70 (87) 100 11/26/19 01:30 81 13 109/66 (80) 100 11/26/19 01:00 14 110/68 Mechanical Ventilator 45 11/26/19 01:00 81 12 110/68 (82) 100 11/26/19 00:30 84 10 125/61 (82) 98 11/26/19 00:00 98.9 82 11 109/62 (78) 97 11/26/19 00:00 13 109/62 Mechanical Ventilator 45 11/26/19 00:00 Mechanical Ventilator Mechanical Ventilator Mechanical Ventilator 11/25/19 23:28 79 14 45 11/25/19 23:01 66 11/25/19 23:00 78 0 101/56 (71) 100 11/25/19 23:00 15 112/59 Mechanical Ventilator 45 11/25/19 22:30 77 0 105/58 (74) 100 11/25/19 22:00 15 105/58 Mechanical Ventilator 45 11/25/19 22:00 75 0 93/55 (68) 100 11/25/19 21:00 82 0 105/47 (66) 100 11/25/19 21:00 15 105/47 Mechanical Ventilator 45 11/25/19 20:30 102 16 133/69 (90) 100 11/25/19 20:19 15 117/62 Mechanical Ventilator 40 11/25/19 20:18 108 117/62 11/25/19 20:01 110 11/25/19 20:00 98.9 101 14 117/62 (80) 100 11/25/19 20:00 12 117/62 Mechanical Ventilator 45 11/25/19 20:00 45 11/25/19 20:00 Mechanical Ventilator Mechanical Ventilator Mechanical Ventilator 11/25/19 19:49 133/63 11/25/19 19:31 96 15 45 11/25/19 19:30 106 10 133/63 (86) 100 11/25/19 19:00 116 13 156/85 (108) 100 11/25/19 19:00 14 156/85 Mechanical Ventilator 45 11/25/19 18:36 99.0 141 21 183/123 (143) 100 11/25/19 18:00 106 22 161/85 (110) 100 11/25/19 18:00 22 163/82 Mechanical Ventilator 45 11/25/19 17:30 98.6 95 20 163/82 (109) 99 11/25/19 17:15 Mechanical Ventilator Mechanical Ventilator Mechanical Ventilator 11/25/19 17:03 92 16 166/97 (120) 98 11/25/19 17:00 15 166/97 Mechanical Ventilator 45 11/25/19 16:30 95 14 144/77 (99) 98 11/25/19 16:00 98.8 91 15 135/83 (100) 99 11/25/19 16:00 45 11/25/19 16:00 15 135/83 Mechanical Ventilator 45 11/25/19 16:00 Mechanical Ventilator Mechanical Ventilator Mechanical Ventilator 11/25/19 15:30 86 14 138/81 (100) 98 11/25/19 15:20 83 11/25/19 15:08 95 16 45 Intake and Output 11/25/19 11/26/19 19:00 07:00 Intake Total 471.33 ml 1064 ml Output Total 1175 ml 555 ml Balance -703.67 ml 509 ml Free Water 450 ml IV Total 431.33 ml 194 ml Tube Feeding 40 ml 420 ml Output Urine Total 1175 ml 555 ml General Appearance: no acute distress HEENT: normocephalic, status post trach Respiratory: decreased breath sounds Cardiovascular: normal peripheral pulses Abdomen: normal bowel sounds Extremities: no cyanosis Laboratory Tests 11/25/19 23:34: POC Whole Blood Glucose [Pending] 11/26/19 04:00: White Blood Count 13.3H, Red Blood Count 3.97L, Hemoglobin 10.5L, Hematocrit 35.3L, Mean Corpuscular Volume 89, Mean Corpuscular Hemoglobin 26.3L, Mean Corpuscular Hemoglobin Concent 29.6L, Red Cell Distribution Width 17.3H, Platelet Count 194, Mean Platelet Volume 6.9, Neutrophils (%) (Auto) , Lymphocytes (%) (Auto) , Monocytes (%) (Auto) , Eosinophils (%) (Auto) , Basophils (%) (Auto) , Differential Total Cells Counted 100, Neutrophils % ( Manual) 95H, Lymphocytes % (Manual) 3L, Monocytes % (Manual) 2, Eosinophils % ( Manual) 0, Basophils % (Manual) 0, Band Neutrophils 0, Platelet Estimate Adequate, Platelet Morphology Normal, Hypochromasia 1+, Anisocytosis 1+, Sodium Level 149H, Potassium Level 3.8, Chloride Level 110H, Carbon Dioxide Level 35H, Anion Gap 4L, Blood Urea Nitrogen 47H, Creatinine 1.2, Estimat Glomerular Filtration Rate 47.0, Glucose Level 167H, Uric Acid 6.6, Calcium Level 8.4L, Phosphorus Level 4.0, Magnesium Level 2.2, Total Bilirubin 1.2H, Direct Bilirubin 0.7H, Aspartate Amino Transf (AST/SGOT) 37, Alanine Aminotransferase ( ALT/SGPT) 31, Alkaline Phosphatase 185H, C-Reactive Protein, Quantitative 4.2H, Pro-B-Type Natriuretic Peptide 8562H, Total Protein 6.2L, Albumin 2.0L 11/26/19 05:24: POC Whole Blood Glucose [Pending] Current Medications Medications (Trade) Dose Ordered Sig/Robyn Route PRN Reason Start Time Stop Time Status Last Admin Dose Admin Acetaminophen (Tylenol) 650 mg Q6H PRN GT Temp >100.5 11/24/19 13:30 12/12/19 00:14 11/26/19 12:56 Amiodarone HCl (Cordarone) 400 mg EVERY 12 HOURS GT 11/24/19 21:00 02/18/20 09:29 11/26/19 08:46 Cefepime HCl 2 gm/ Dextrose 55 ml @ 110 mls/hr Q12H IVPB 11/25/19 12:00 12/02/19 11:59 11/26/19 12:57 Chlorhexidine Gluconate (Miya-Hex 2%) 1 applic DAILY@1999 TOPIC 11/08/19 21:30 02/06/20 21:29 11/25/19 20:17 Clonidine HCl (Catapres Tab) 0.1 mg Q4H PRN GT For High Blood Pressure 11/24/19 13:30 02/09/20 10:59 Dextrose (Dextrose 50%) 25 ml Q30M PRN IV Hypoglycemia 11/23/19 06:45 02/21/20 06:44 Dextrose (Dextrose 50%) 50 ml Q30M PRN IV Hypoglycemia 11/23/19 06:45 02/21/20 06:44 Docusate Sodium (Colace) 100 mg EVERY 12 HOURS GT 11/25/19 09:00 12/23/19 08:59 11/26/19 08:45 Dopamine HCl/ Dextrose 250 ml @ 0 mls/hr Q24H IV 11/19/19 18:36 02/17/20 18:35 11/19/19 18:41 Famotidine (Pepcid I.v.) 20 mg Q12HR IVP 11/08/19 15:30 12/08/19 15:29 11/26/19 08:45 Folic Acid (Folate) 2 mg DAILY GT 11/25/19 09:00 12/15/19 08:59 11/26/19 08:46 Insulin Aspart (NovoLOG) EVERY 6 HOURS SUBQ 11/15/19 12:00 02/11/20 20:59 11/26/19 13:02 Insulin Detemir (Levemir) 12 units BID SUBQ 11/24/19 09:00 02/21/20 08:59 11/26/19 09:44 Lorazepam (Ativan 2mg/ml 1ml) 2 mg Q3H PRN IV For Anxiety 11/26/19 07:45 12/03/19 07:44 11/26/19 12:56 Metoprolol Tartrate (Lopressor) 25 mg Q12HR GT 11/24/19 21:00 02/18/20 09:29 11/26/19 08:47 Norepinephrine Bitartrate 250 ml @ 0 mls/hr Q24H IV 11/19/19 19:49 02/17/20 19:48 Vancomycin HCl ([facility] pharmacy to dose) 1 ea DAILY PRN MISC Per rx protocol 11/26/19 14:30 12/26/19 14:29 Vancomycin HCl 1 gm/Sodium Chloride 275 ml @ 183.708 mls/hr Q12HR@0500,1700 IVPB 11/26/19 17:00 12/01/19 16:59 Assessment/Plan Assessment/Plan IMPRESSION: 1. COVID-19 pneumonia. 2. Diabetes mellitus and hypertension. 3. Lactic acidemia. 4. Epistaxis 5. Respiratory failure; failed extubation 6. Anasarca DISCUSSION: Careful and close monitoring. Continue medications status post tracheostomy On fentanyl S/p PEG no longer on Lasix I will follow carefully. Lakeisha Zavaleta Omar Syed MD Nov 26, 2019 15:06
[2019-11-26] MEDS ORDERED: NS 275ml ONE (15:22)
[2019-11-26] MEDS: Vancomycin 1 GM in NS 275 ML IVPB SCH (17:44)
--- NOTE | 2019-11-26 17:55 | Surgery Progress Note ---
Surgery Progress Note Subjective Procedure Performed tracheostomy Additional Comments no acute events on support ill appearing but stable Objective Last 24 Hour Vital Signs Date Time Temp Pulse Resp B/P (MAP) Pulse Ox O2 Delivery O2 Flow Rate FiO2 11/26/19 17:00 94 20 152/70 (97) 99 11/26/19 16:05 92 11/26/19 16:05 Mechanical Ventilator Mechanical Ventilator Mechanical Ventilator 11/26/19 16:03 45 11/26/19 15:45 105 21 143/75 (97) 100 11/26/19 15:25 94 21 45 11/26/19 15:00 99 19 191/113 (139) 100 11/26/19 14:00 80 17 117/60 (79) 95 11/26/19 13:26 99.9 11/26/19 13:00 94 16 128/72 (90) 100 11/26/19 12:00 101 11/26/19 12:00 100.0 95 18 135/55 (81) 100 11/26/19 12:00 45 11/26/19 12:00 Mechanical Ventilator Mechanical Ventilator Mechanical Ventilator 11/26/19 11:34 102 17 45 11/26/19 11:05 95 16 110/65 (80) 100 11/26/19 10:30 93 16 103/55 (71) 100 11/26/19 10:00 99.7 91 16 121/66 (84) 100 11/26/19 09:00 89 16 117/81 (93) 100 11/26/19 08:47 115 110/53 11/26/19 08:15 78 20 98 11/26/19 08:00 45 11/26/19 08:00 95 16 137/69 (91) 100 11/26/19 08:00 Mechanical Ventilator Mechanical Ventilator Mechanical Ventilator 11/26/19 08:00 93 11/26/19 07:45 104 15 45 11/26/19 07:00 94 16 92/60 (71) 100 11/26/19 06:00 101 16 120/65 (83) 100 11/26/19 05:40 102 16 128/70 (89) 100 11/26/19 05:30 111 18 133/69 (90) 99 11/26/19 05:16 130 19 183/122 (142) 100 11/26/19 05:00 120 22 181/113 (135) 100 11/26/19 04:30 90 11 141/84 (103) 100 11/26/19 04:00 99.0 95 13 147/84 (105) 99 11/26/19 04:00 14 141/84 Mechanical Ventilator 45 11/26/19 04:00 Mechanical Ventilator Mechanical Ventilator Mechanical Ventilator 11/26/19 04:00 45 11/26/19 03:30 85 13 134/81 (98) 99 11/26/19 03:14 88 14 45 11/26/19 03:03 100 11/26/19 03:00 89 15 124/68 (86) 99 11/26/19 03:00 14 124/68 Mechanical Ventilator 45 11/26/19 02:30 83 14 111/67 (82) 100 11/26/19 02:00 15 122/70 Mechanical Ventilator 45 11/26/19 02:00 81 14 122/70 (87) 100 11/26/19 01:30 81 13 109/66 (80) 100 11/26/19 01:00 14 110/68 Mechanical Ventilator 45 11/26/19 01:00 81 12 110/68 (82) 100 11/26/19 00:30 84 10 125/61 (82) 98 11/26/19 00:00 98.9 82 11 109/62 (78) 97 11/26/19 00:00 13 109/62 Mechanical Ventilator 45 11/26/19 00:00 Mechanical Ventilator Mechanical Ventilator Mechanical Ventilator 11/25/19 23:28 79 14 45 11/25/19 23:01 66 11/25/19 23:00 78 0 101/56 (71) 100 11/25/19 23:00 15 112/59 Mechanical Ventilator 45 11/25/19 22:30 77 0 105/58 (74) 100 11/25/19 22:00 15 105/58 Mechanical Ventilator 45 11/25/19 22:00 75 0 93/55 (68) 100 11/25/19 21:00 82 0 105/47 (66) 100 11/25/19 21:00 15 105/47 Mechanical Ventilator 45 11/25/19 20:30 102 16 133/69 (90) 100 11/25/19 20:19 15 117/62 Mechanical Ventilator 40 11/25/19 20:18 108 117/62 11/25/19 20:01 110 11/25/19 20:00 98.9 101 14 117/62 (80) 100 11/25/19 20:00 12 117/62 Mechanical Ventilator 45 11/25/19 20:00 45 11/25/19 20:00 Mechanical Ventilator Mechanical Ventilator Mechanical Ventilator 11/25/19 19:49 133/63 11/25/19 19:31 96 15 45 11/25/19 19:30 106 10 133/63 (86) 100 11/25/19 19:00 116 13 156/85 (108) 100 11/25/19 19:00 14 156/85 Mechanical Ventilator 45 11/25/19 18:36 99.0 141 21 183/123 (143) 100 11/25/19 18:00 106 22 161/85 (110) 100 11/25/19 18:00 22 163/82 Mechanical Ventilator 45 I&O Intake and Output 11/25/19 11/26/19 19:00 07:00 Intake Total 471.33 ml 1064 ml Output Total 1175 ml 555 ml Balance -703.67 ml 509 ml Free Water 450 ml IV Total 431.33 ml 194 ml Tube Feeding 40 ml 420 ml Output Urine Total 1175 ml 555 ml Dressing: dry Cardiovascular: RSR Respiratory: decreased breath sounds Abdomen: soft, non-tender, present bowel sounds Extremities: no cyanosis Laboratory Tests Test 11/25/19 23:34 11/26/19 04:00 11/26/19 05:24 POC Whole Blood Glucose Pending Pending White Blood Count 13.3 K/UL (4.8-10.8) H Red Blood Count 3.97 M/UL (4.20-5.40) L Hemoglobin 10.5 G/DL (12.0-16.0) L Hematocrit 35.3 % (37.0-47.0) L Mean Corpuscular Volume 89 FL (80-99) Mean Corpuscular Hemoglobin 26.3 PG (27.0-31.0) L Mean Corpuscular Hemoglobin Concent 29.6 G/DL (32.0-36.0) L Red Cell Distribution Width 17.3 % (11.6-14.8) H Platelet Count 194 K/UL (150-450) Mean Platelet Volume 6.9 FL (6.5-10.1) Neutrophils (%) (Auto) % (45.0-75.0) Lymphocytes (%) (Auto) % (20.0-45.0) Monocytes (%) (Auto) % (1.0-10.0) Eosinophils (%) (Auto) % (0.0-3.0) Basophils (%) (Auto) % (0.0-2.0) Differential Total Cells Counted 100 Neutrophils % (Manual) 95 % (45-75) H Lymphocytes % (Manual) 3 % (20-45) L Monocytes % (Manual) 2 % (1-10) Eosinophils % (Manual) 0 % (0-3) Basophils % (Manual) 0 % (0-2) Band Neutrophils 0 % (0-8) Platelet Estimate Adequate Platelet Morphology Normal Hypochromasia 1+ Anisocytosis 1+ Sodium Level 149 MMOL/L (136-145) H Potassium Level 3.8 MMOL/L (3.5-5.1) Chloride Level 110 MMOL/L (98-107) H Carbon Dioxide Level 35 MMOL/L (21-32) H Anion Gap 4 mmol/L (5-15) L Blood Urea Nitrogen 47 mg/dL (7-18) H Creatinine 1.2 MG/DL (0.55-1.30) Estimat Glomerular Filtration Rate 47.0 mL/min (>60) Glucose Level 167 MG/DL (74-106) H Uric Acid 6.6 MG/DL (2.6-7.2) Calcium Level 8.4 MG/DL (8.5-10.1) L Phosphorus Level 4.0 MG/DL (2.5-4.9) Magnesium Level 2.2 MG/DL (1.8-2.4) Total Bilirubin 1.2 MG/DL (0.2-1.0) H Direct Bilirubin 0.7 MG/DL (0.0-0.3) H Aspartate Amino Transf (AST/SGOT) 37 U/L (15-37) Alanine Aminotransferase (ALT/SGPT) 31 U/L (12-78) Alkaline Phosphatase 185 U/L (46-116) H C-Reactive Protein, Quantitative 4.2 mg/dL (0.00-0.90) H Pro-B-Type Natriuretic Peptide 8562 pg/mL (0-125) H Total Protein 6.2 G/DL (6.4-8.2) L Albumin 2.0 G/DL (3.4-5.0) L Plan Problems: (1) Weak (2) UTI (urinary tract infection) (3) Hypoxia (4) Epistaxis Assessment & Plan: Severe after taxis left nostril Rhino Rocket placed hemostasis noted over the course 24 hours hemoglobin stable Lovenox been stopped. The balloon of both ports of the Rhino Rocket were deflated today. The rocket itself was not removed and will monitor over the course next 24 hours hemostasis. If so will gently remove and plan for local monitoring. Currently wean ventilator as tolerated. Goals of extubation when possible. deflated balloon 11/08 removed trumpet 11/09 will monitor for bleeding wean vent plan extubation discussed with pulm (5) Fluid overload Assessment & Plan: Continue central venous catheter for now. Will anticipate removal once patient stable for extubation. Thank you for allowing me to participate patient's care picc in line out (6) Diabetes (7) CHF (congestive heart failure) (8) Afib (9) Multifocal pneumonia (10) 2019 novel coronavirus disease (COVID-19) Assessment & Plan: + wean vent extubated failed reintubated consider trach plan trach 8/4 s/p trach comfortable (11) Respiratory failure Ortiz Fleming Nov 26, 2019 17:55
[2019-11-26] MEDS: DOPamine 400mg/250ml 250 ML IV SCH (18:36)
[2019-11-26] MEDS: Norepinephrine 4mg/NS Premix 250 ML IV SCH (19:49)
[2019-11-26] MEDS: Dyna-Hex 2% Top Sol 2oz TOPIC SCH (21:20)
[2019-11-27] VITALS (24 sets, daily range): BP systolic 85–169; BP diastolic 37–92
[2019-11-27 04:42] LABS: HEMATOCRIT 34.5 % (37.0-47.0); MEAN CORPUSCULAR VOLUME 90 FL (80-99); PLATELET COUNT 196 K/UL (150-450); RED BLOOD COUNT 3.82 M/UL (4.20-5.40); RED CELL DISTRIBUTION WIDTH 18.1 % (11.6-14.8); WHITE BLOOD COUNT 11.6 K/UL (4.8-10.8)
[2019-11-27 05:12] LABS: ANION GAP 4 mmol/L (5-15); BLOOD UREA NITROGEN 39 mg/dL (7-18); CALCIUM 8.3 MG/DL (8.5-10.1); CARBON DIOXIDE 36 MMOL/L (21-32); CHLORIDE 113 MMOL/L (98-107); CREATININE 1.1 MG/DL (0.55-1.30); POTASSIUM 3.4 MMOL/L (3.5-5.1); SODIUM 153 MMOL/L (136-145)
[2019-11-27] MEDS: Vancomycin 1 GM in NS 275 ML IVPB SCH (05:22)
[2019-11-27] MEDS: NovoLOG Insulin Flexpen SUBQ SCH ×4 (05:23→23:35)
[2019-11-27] MEDS: LORazepam Inj 2mg/ml 1ml IV PRN (06:30)
--- NOTE | 2019-11-27 07:48 | Pulmonology Progress Note ---
Subjective ROS Limited/Unobtainable: Yes Interval Events: Re-intubated on 11/19/19; Status post tracheostomy 11/24/2019 Constitutional: Denies: fever HEENT: Repors: no symptoms Respiratory: Reports: dry cough, shortness of breath Cardiovascular: Reports: no symptoms Gastrointestinal/Abdominal: Reports: no symptoms Allergies: Coded Allergies: No Known Allergies (Unverified , 11/06/19) All Systems: reviewed and negative except above Objective Last 24 Hour Vital Signs Date Time Temp Pulse Resp B/P (MAP) Pulse Ox O2 Delivery O2 Flow Rate FiO2 11/27/19 07:00 87 19 129/58 (81) 100 11/27/19 06:00 96 19 130/92 (105) 98 11/27/19 05:00 100 19 111/89 (96) 98 11/27/19 04:00 45 11/27/19 04:00 106 11/27/19 04:00 100.0 102 18 155/72 (99) 100 11/27/19 04:00 Mechanical Ventilator Mechanical Ventilator Mechanical Ventilator 11/27/19 03:00 98 19 145/70 (95) 100 11/27/19 02:52 89 18 45 11/27/19 02:00 96 18 142/68 (92) 98 11/27/19 01:00 107 17 169/79 (109) 99 11/27/19 00:00 Mechanical Ventilator Mechanical Ventilator Mechanical Ventilator 11/27/19 00:00 98.1 97 20 152/68 (96) 99 11/26/19 23:30 91 11/26/19 23:00 87 17 139/65 (89) 99 11/26/19 22:56 82 14 45 11/26/19 22:00 79 16 135/79 (97) 97 11/26/19 21:40 83 16 117/53 (74) 94 11/26/19 21:00 73 87/55 11/26/19 21:00 73 16 87/55 (66) 98 11/26/19 20:00 45 11/26/19 20:00 99.9 84 16 114/48 (70) 98 11/26/19 20:00 Mechanical Ventilator Mechanical Ventilator Mechanical Ventilator 11/26/19 19:49 114/48 11/26/19 19:43 90 17 45 11/26/19 19:20 78 11/26/19 19:00 79 17 117/61 (79) 96 11/26/19 18:00 100.2 74 16 105/50 (68) 93 11/26/19 17:00 94 20 152/70 (97) 99 11/26/19 16:05 92 11/26/19 16:05 Mechanical Ventilator Mechanical Ventilator Mechanical Ventilator 11/26/19 16:03 45 11/26/19 15:45 105 21 143/75 (97) 100 11/26/19 15:25 94 21 45 11/26/19 15:00 99 19 191/113 (139) 100 11/26/19 14:00 80 17 117/60 (79) 95 11/26/19 13:26 99.9 11/26/19 13:00 94 16 128/72 (90) 100 11/26/19 12:00 101 11/26/19 12:00 100.0 95 18 135/55 (81) 100 11/26/19 12:00 45 11/26/19 12:00 Mechanical Ventilator Mechanical Ventilator Mechanical Ventilator 11/26/19 11:34 102 17 45 11/26/19 11:05 95 16 110/65 (80) 100 11/26/19 10:30 93 16 103/55 (71) 100 11/26/19 10:00 99.7 91 16 121/66 (84) 100 11/26/19 09:00 89 16 117/81 (93) 100 11/26/19 08:47 115 110/53 11/26/19 08:15 78 20 98 11/26/19 08:00 45 11/26/19 08:00 95 16 137/69 (91) 100 11/26/19 08:00 Mechanical Ventilator Mechanical Ventilator Mechanical Ventilator 11/26/19 08:00 93 Intake and Output 11/26/19 11/27/19 19:00 07:00 Intake Total 1043.708 ml 930.0000 ml Output Total 540 ml 1380 ml Balance 503.708 ml -450.0000 ml Free Water 150 ml IV Total 293.708 ml 330.0000 ml Tube Feeding 600 ml 600 ml Output Urine Total 540 ml 1380 ml # Bowel Movements 1 4 General Appearance: no acute distress HEENT: normocephalic, status post trach Respiratory: decreased breath sounds Cardiovascular: normal peripheral pulses Abdomen: normal bowel sounds Extremities: no cyanosis Laboratory Tests 11/26/19 09:19: POC Whole Blood Glucose [Pending] 11/26/19 12:59: POC Whole Blood Glucose [Pending] 11/26/19 17:00: Stool Occult Blood [Pending] 11/26/19 17:58: POC Whole Blood Glucose [Pending] 11/26/19 23:17: POC Whole Blood Glucose [Pending] 11/27/19 04:00: White Blood Count 11.6H, Red Blood Count 3.82L, Hemoglobin 10.0L, Hematocrit 34.5L, Mean Corpuscular Volume 90, Mean Corpuscular Hemoglobin 26.3L, Mean Corpuscular Hemoglobin Concent 29.1L, Red Cell Distribution Width 18.1H, Platelet Count 196, Mean Platelet Volume 6.5, Neutrophils (%) (Auto) , Lymphocytes (%) (Auto) , Monocytes (%) (Auto) , Eosinophils (%) (Auto) , Basophils (%) (Auto) , Neutrophils % (Manual) [Pending], Lymphocytes % (Manual) [Pending], Platelet Estimate [Pending], Platelet Morphology [Pending], Sodium Level 153H, Potassium Level 3.4L, Chloride Level 113H, Carbon Dioxide Level 36H , Anion Gap 4L, Blood Urea Nitrogen 39H, Creatinine 1.1, Estimat Glomerular Filtration Rate 51.9, Glucose Level 192H, Calcium Level 8.3L 11/27/19 04:44: POC Whole Blood Glucose [Pending] Current Medications Medications (Trade) Dose Ordered Sig/Robyn Route PRN Reason Start Time Stop Time Status Last Admin Dose Admin Acetaminophen (Tylenol) 650 mg Q6H PRN GT Temp >100.5 11/24/19 13:30 12/12/19 00:14 11/26/19 12:56 Amiodarone HCl (Cordarone) 400 mg EVERY 12 HOURS GT 11/24/19 21:00 02/18/20 09:29 11/26/19 21:20 Cefepime HCl 2 gm/ Dextrose 55 ml @ 110 mls/hr Q12H IVPB 11/25/19 12:00 12/02/19 11:59 11/26/19 23:19 Chlorhexidine Gluconate (Miya-Hex 2%) 1 applic DAILY@2000 TOPIC 11/08/19 21:30 02/06/20 21:29 11/26/19 21:20 Clonidine HCl (Catapres Tab) 0.1 mg Q4H PRN GT For High Blood Pressure 11/24/19 13:30 02/09/20 10:59 Dextrose (Dextrose 50%) 25 ml Q30M PRN IV Hypoglycemia 11/23/19 06:45 02/21/20 06:44 Dextrose (Dextrose 50%) 50 ml Q30M PRN IV Hypoglycemia 11/23/19 06:45 02/21/20 06:44 Docusate Sodium (Colace) 100 mg EVERY 12 HOURS GT 11/25/19 09:00 12/23/19 08:59 11/26/19 21:20 Dopamine HCl/ Dextrose 250 ml @ 0 mls/hr Q24H IV 11/19/19 18:36 02/17/20 18:35 11/19/19 18:41 Famotidine (Pepcid I.v.) 20 mg Q12HR IVP 11/08/19 15:30 12/08/19 15:29 11/26/19 21:21 Folic Acid (Folate) 2 mg DAILY GT 11/25/19 09:00 12/15/19 08:59 11/26/19 08:46 Insulin Aspart (NovoLOG) EVERY 6 HOURS SUBQ 11/15/19 12:00 02/11/20 20:59 11/27/19 05:23 Insulin Detemir (Levemir) 12 units BID SUBQ 11/24/19 09:00 02/21/20 08:59 11/26/19 18:02 Lorazepam (Ativan 2mg/ml 1ml) 2 mg Q3H PRN IV For Anxiety 11/26/19 07:45 12/03/19 07:44 11/27/19 06:30 Metoprolol Tartrate (Lopressor) 25 mg Q12HR GT 11/24/19 21:00 02/18/20 09:29 11/26/19 08:47 Norepinephrine Bitartrate 250 ml @ 0 mls/hr Q24H IV 11/19/19 19:49 02/17/20 19:48 Vancomycin HCl (Vanco pharmacy to dose) 1 ea DAILY PRN MISC Per rx protocol 11/26/19 14:30 12/26/19 14:29 Vancomycin HCl 1 gm/Sodium Chloride 275 ml @ 183.708 mls/hr Q12HR@0500,1700 IVPB 11/26/19 17:00 12/01/19 16:59 11/27/19 05:22 Assessment/Plan Assessment/Plan IMPRESSION: 1. COVID-19 pneumonia. 2. Diabetes mellitus and hypertension. 3. Lactic acidemia. 4. Epistaxis 5. Respiratory failure; failed extubation 6. Anasarca DISCUSSION: Careful and close monitoring. Continue medications status post tracheostomy On fentanyl S/p PEG no longer on Lasix I will follow carefully. Lakeisha Zavaleta Omar Syed MD Nov 27, 2019 07:48
[2019-11-27] MEDS: Amiodarone 200mg tab GT SCH ×2 (08:44→20:35)
[2019-11-27] MEDS: Docusate 100mg/10ml Liq GT SCH ×2 (08:44→20:09)
--- NOTE | 2019-11-27 09:28 | General Progress Note ---
Assessment/Plan Problem List: (1) Respiratory failure ICD Codes: J96.90 - Respiratory failure, unspecified, unspecified whether with hypoxia or hypercapnia SNOMED: 679983355 (2) 2019 novel coronavirus disease (COVID-19) ICD Codes: U07.1 - COVID-19 SNOMED: 015556984 (3) Multifocal pneumonia ICD Codes: J18.9 - Pneumonia, unspecified organism SNOMED: 395357053 (4) Afib ICD Codes: I48.91 - Unspecified atrial fibrillation SNOMED: 16073072 (5) CHF (congestive heart failure) ICD Codes: I50.9 - Heart failure, unspecified SNOMED: 10776218 (6) Diabetes ICD Codes: E11.9 - Type 2 diabetes mellitus without complications SNOMED: 33066543 (7) Fluid overload ICD Codes: E87.70 - Fluid overload, unspecified SNOMED: 61041971 (8) Epistaxis ICD Codes: R04.0 - Epistaxis SNOMED: 047679869 Status: unchanged Assessment/Plan: fu H&H prn blood transfusion GTF on colace had bm today will fu Subjective ROS Limited/Unobtainable: No Allergies: Coded Allergies: No Known Allergies (Unverified , 11/06/19) Objective Last 24 Hour Vital Signs Date Time Temp Pulse Resp B/P (MAP) Pulse Ox O2 Delivery O2 Flow Rate FiO2 11/27/19 07:05 86 24 45 11/27/19 07:00 87 19 129/58 (81) 100 11/27/19 06:00 96 19 130/92 (105) 98 11/27/19 05:00 100 19 111/89 (96) 98 11/27/19 04:00 45 11/27/19 04:00 106 11/27/19 04:00 100.0 102 18 155/72 (99) 100 11/27/19 04:00 Mechanical Ventilator Mechanical Ventilator Mechanical Ventilator 11/27/19 03:00 98 19 145/70 (95) 100 11/27/19 02:52 89 18 45 11/27/19 02:00 96 18 142/68 (92) 98 11/27/19 01:00 107 17 169/79 (109) 99 11/27/19 00:00 Mechanical Ventilator Mechanical Ventilator Mechanical Ventilator 11/27/19 00:00 98.1 97 20 152/68 (96) 99 11/26/19 23:30 91 11/26/19 23:00 87 17 139/65 (89) 99 11/26/19 22:56 82 14 45 11/26/19 22:00 79 16 135/79 (97) 97 11/26/19 21:40 83 16 117/53 (74) 94 11/26/19 21:00 73 87/55 8 21:00 73 16 87/55 (66) 98 11/26/19 20:00 45 11/26/19 20:00 99.9 84 16 114/48 (70) 98 11/26/19 20:00 Mechanical Ventilator Mechanical Ventilator Mechanical Ventilator 11/26/19 19:49 114/48 11/26/19 19:43 90 17 45 11/26/19 19:20 78 11/26/19 19:00 79 17 117/61 (79) 96 11/26/19 18:00 100.2 74 16 105/50 (68) 93 11/26/19 17:00 94 20 152/70 (97) 99 11/26/19 16:05 92 11/26/19 16:05 Mechanical Ventilator Mechanical Ventilator Mechanical Ventilator 11/26/19 16:03 45 11/26/19 15:45 105 21 143/75 (97) 100 11/26/19 15:25 94 21 45 11/26/19 15:00 99 19 191/113 (139) 100 11/26/19 14:00 80 17 117/60 (79) 95 11/26/19 13:26 99.9 11/26/19 13:00 94 16 128/72 (90) 100 11/26/19 12:00 101 11/26/19 12:00 100.0 95 18 135/55 (81) 100 11/26/19 12:00 45 11/26/19 12:00 Mechanical Ventilator Mechanical Ventilator Mechanical Ventilator 11/26/19 11:34 102 17 45 11/26/19 11:05 95 16 110/65 (80) 100 11/26/19 10:30 93 16 103/55 (71) 100 11/26/19 10:00 99.7 91 16 121/66 (84) 100 Intake and Output 11/26/19 11/27/19 19:00 07:00 Intake Total 1043.708 ml 930.0000 ml Output Total 540 ml 1380 ml Balance 503.708 ml -450.0000 ml Free Water 150 ml IV Total 293.708 ml 330.0000 ml Tube Feeding 600 ml 600 ml Output Urine Total 540 ml 1380 ml # Bowel Movements 1 4 Laboratory Tests 11/26/19 12:59: POC Whole Blood Glucose [Pending] 11/26/19 17:00: Stool Occult Blood [Pending] 11/26/19 17:58: POC Whole Blood Glucose [Pending] 11/26/19 23:17: POC Whole Blood Glucose [Pending] 11/27/19 04:00: White Blood Count 11.6H, Red Blood Count 3.82L, Hemoglobin 10.0L, Hematocrit 34.5L, Mean Corpuscular Volume 90, Mean Corpuscular Hemoglobin 26.3L, Mean Corpuscular Hemoglobin Concent 29.1L, Red Cell Distribution Width 18.1H, Platelet Count 196, Mean Platelet Volume 6.5, Neutrophils (%) (Auto) , Lymphocytes (%) (Auto) , Monocytes (%) (Auto) , Eosinophils (%) (Auto) , Basophils (%) (Auto) , Differential Total Cells Counted 100, Neutrophils % ( Manual) 92H, Lymphocytes % (Manual) 6L, Monocytes % (Manual) 2, Eosinophils % ( Manual) 0, Basophils % (Manual) 0, Band Neutrophils 0, Platelet Estimate Adequate, Platelet Morphology Normal, Hypochromasia 1+, Anisocytosis 2+, Sodium Level 153H, Potassium Level 3.4L, Chloride Level 113H, Carbon Dioxide Level 36H , Anion Gap 4L, Blood Urea Nitrogen 39H, Creatinine 1.1, Estimat Glomerular Filtration Rate 51.9, Glucose Level 192H, Calcium Level 8.3L 11/27/19 04:44: POC Whole Blood Glucose [Pending] Height (Feet): 5 Height (Inches): 1.00 Weight (Pounds): 335 General Appearance: lethargic EENT: normal ENT inspection Neck: normal inspection Cardiovascular: normal rate Respiratory/Chest: decreased breath sounds Abdomen: hypoactive bowel sounds Extremities: non-tender Case aPtel MD Nov 27, 2019 09:28
--- NOTE | 2019-11-27 09:35 | Nephrology Progress Note ---
Assessment/Plan Problem List: (1) Electrolyte imbalance (2) Diabetes (3) 2019 novel coronavirus disease (COVID-19) (4) Respiratory failure Assessment 1. COVID-19 pneumonia. 2. Diabetes and hyperglycemia 3. Hypertension. 4. Hypoxic respiratory failure 5. Morbid obesity with BMI of 65.5 6. Nasal bleeding 7. Lactic acidosis 8. Hyperkalemia Plan November 26: Lab reviewed. Serum sodium elevated. 500 cc D5W bolus given. Potassium supplement given. Patient remains full code. Continue per consultants. November 25: Lab reviewed. Patient has trach connected to vent. Patient also has PEG. Continue per consultants. Medication list reviewed. November 24: Lab reviewed. Potassium IV given. Has tracheostomy to vent. Has PEG. Continue per consultants. November 23: Labs reviewed. Creatinine higher to 1.4. Due for trach today. Suggest to stop IV Lasix. November 22: Renal parameters stable. Medication list reviewed. Continue same management per consultants. November 21: Renal parameters stable. On IV Lasix. Edematous. Will order few doses of albumin 25%. Continue per consultants. November 20: Repeat serum potassium again normal. Renal parameters normal. Continue per consultants. November 19: Repeat serum potassium normal. Renal parameters within normal limit. Continue per consultants. November 18: Levemir stopped since IV fluid and dexamethasone are discontinued and patient blood sugar went down. Renal parameters are stable. Continues to be on ventilator. Previously: Renal parameters stable Weaning is being attempted patient's urine output is low. We will give a trial of albumin and Lasix, As needed Discussed with RN Stop IV to D5W 75 cc an hour Levemir 20 units subcu every 12 hours Kayexalate for high potassium as needed Monitor electrolytes and renal parameters Tight blood sugar control, long-acting insulin as needed Keep the blood pressure in check Per orders Subjective ROS Limited/Unobtainable: Yes Objective Objective Last 24 Hour Vital Signs Date Time Temp Pulse Resp B/P (MAP) Pulse Ox O2 Delivery O2 Flow Rate FiO2 11/27/19 07:05 86 24 45 11/27/19 07:00 87 19 129/58 (81) 100 11/27/19 06:00 96 19 130/92 (105) 98 11/27/19 05:00 100 19 111/89 (96) 98 11/27/19 04:00 45 11/27/19 04:00 106 8/7/20 04:00 100.0 102 18 155/72 (99) 100 11/27/19 04:00 Mechanical Ventilator Mechanical Ventilator Mechanical Ventilator 11/27/19 03:00 98 19 145/70 (95) 100 11/27/19 02:52 89 18 45 11/27/19 02:00 96 18 142/68 (92) 98 11/27/19 01:00 107 17 169/79 (109) 99 11/27/19 00:00 Mechanical Ventilator Mechanical Ventilator Mechanical Ventilator 11/27/19 00:00 98.1 97 20 152/68 (96) 99 11/26/19 23:30 91 11/26/19 23:00 87 17 139/65 (89) 99 11/26/19 22:56 82 14 45 11/26/19 22:00 79 16 135/79 (97) 97 11/26/19 21:40 83 16 117/53 (74) 94 11/26/19 21:00 73 87/55 11/26/19 21:00 73 16 87/55 (66) 98 11/26/19 20:00 45 11/26/19 20:00 99.9 84 16 114/48 (70) 98 11/26/19 20:00 Mechanical Ventilator Mechanical Ventilator Mechanical Ventilator 11/26/19 19:49 114/48 11/26/19 19:43 90 17 45 11/26/19 19:20 78 11/26/19 19:00 79 17 117/61 (79) 96 11/26/19 18:00 100.2 74 16 105/50 (68) 93 11/26/19 17:00 94 20 152/70 (97) 99 11/26/19 16:05 92 11/26/19 16:05 Mechanical Ventilator Mechanical Ventilator Mechanical Ventilator 11/26/19 16:03 45 11/26/19 15:45 105 21 143/75 (97) 100 11/26/19 15:25 94 21 45 11/26/19 15:00 99 19 191/113 (139) 100 11/26/19 14:00 80 17 117/60 (79) 95 11/26/19 13:26 99.9 11/26/19 13:00 94 16 128/72 (90) 100 11/26/19 12:00 101 11/26/19 12:00 100.0 95 18 135/55 (81) 100 11/26/19 12:00 45 11/26/19 12:00 Mechanical Ventilator Mechanical Ventilator Mechanical Ventilator 11/26/19 11:34 102 17 45 11/26/19 11:05 95 16 110/65 (80) 100 11/26/19 10:30 93 16 103/55 (71) 100 11/26/19 10:00 99.7 91 16 121/66 (84) 100 Intake and Output 11/26/19 11/27/19 19:00 07:00 Intake Total 1043.708 ml 930.0000 ml Output Total 540 ml 1380 ml Balance 503.708 ml -450.0000 ml Free Water 150 ml IV Total 293.708 ml 330.0000 ml Tube Feeding 600 ml 600 ml Output Urine Total 540 ml 1380 ml # Bowel Movements 1 4 Laboratory Tests 11/26/19 12:59: POC Whole Blood Glucose [Pending] 11/26/19 17:00: Stool Occult Blood [Pending] 11/26/19 17:58: POC Whole Blood Glucose [Pending] 11/26/19 23:17: POC Whole Blood Glucose [Pending] 11/27/19 04:00: White Blood Count 11.6H, Red Blood Count 3.82L, Hemoglobin 10.0L, Hematocrit 34.5L, Mean Corpuscular Volume 90, Mean Corpuscular Hemoglobin 26.3L, Mean Corpuscular Hemoglobin Concent 29.1L, Red Cell Distribution Width 18.1H, Platelet Count 196, Mean Platelet Volume 6.5, Neutrophils (%) (Auto) , Lymphocytes (%) (Auto) , Monocytes (%) (Auto) , Eosinophils (%) (Auto) , Basophils (%) (Auto) , Differential Total Cells Counted 100, Neutrophils % ( Manual) 92H, Lymphocytes % (Manual) 6L, Monocytes % (Manual) 2, Eosinophils % ( Manual) 0, Basophils % (Manual) 0, Band Neutrophils 0, Platelet Estimate Adequate, Platelet Morphology Normal, Hypochromasia 1+, Anisocytosis 2+, Sodium Level 153H, Potassium Level 3.4L, Chloride Level 113H, Carbon Dioxide Level 36H , Anion Gap 4L, Blood Urea Nitrogen 39H, Creatinine 1.1, Estimat Glomerular Filtration Rate 51.9, Glucose Level 192H, Calcium Level 8.3L 11/27/19 04:44: POC Whole Blood Glucose [Pending] Height (Feet): 5 Height (Inches): 1.00 Weight (Pounds): 335 General Appearance: no apparent distress EENT: other - Trach to vent Cardiovascular: normal rate - Rate 80s Respiratory/Chest: decreased breath sounds Abdomen: other - PEG Papa Young MD Nov 27, 2019 09:35
[2019-11-27] MEDS: Levemir Flexpen SUBQ SCH ×2 (09:40→17:59)
--- NOTE | 2019-11-27 10:19 | General Progress Note ---
Assessment/Plan Problem List: (1) Afib ICD Codes: I48.91 - Unspecified atrial fibrillation SNOMED: 47042941 (2) Epistaxis ICD Codes: R04.0 - Epistaxis SNOMED: 997915221 (3) Weak ICD Codes: R53.1 - Weakness SNOMED: 28420711 (4) UTI (urinary tract infection) ICD Codes: N39.0 - Urinary tract infection, site not specified SNOMED: 96521706 (5) Diabetes ICD Codes: E11.9 - Type 2 diabetes mellitus without complications SNOMED: 27893543 (6) CHF (congestive heart failure) ICD Codes: I50.9 - Heart failure, unspecified SNOMED: 69096673 (7) Multifocal pneumonia ICD Codes: J18.9 - Pneumonia, unspecified organism SNOMED: 247017367 (8) 2019 novel coronavirus disease (COVID-19) ICD Codes: U07.1 - COVID-19 SNOMED: 615885358 (9) Respiratory failure ICD Codes: J96.90 - Respiratory failure, unspecified, unspecified whether with hypoxia or hypercapnia SNOMED: 109369817 Status: unchanged Assessment/Plan: vent abx bp bs control cbc bmp am Subjective Constitutional: Reports: weakness Allergies: Coded Allergies: No Known Allergies (Unverified , 11/06/19) All Systems: reviewed and negative except above Subjective trach vent in icu Objective Last 24 Hour Vital Signs Date Time Temp Pulse Resp B/P (MAP) Pulse Ox O2 Delivery O2 Flow Rate FiO2 11/27/19 09:29 80 108/54 11/27/19 07:05 86 24 45 11/27/19 07:00 87 19 129/58 (81) 100 11/27/19 06:00 96 19 130/92 (105) 98 11/27/19 05:00 100 19 111/89 (96) 98 11/27/19 04:00 45 11/27/19 04:00 106 11/27/19 04:00 100.0 102 18 155/72 (99) 100 11/27/19 04:00 Mechanical Ventilator Mechanical Ventilator Mechanical Ventilator 11/27/19 03:00 98 19 145/70 (95) 100 11/27/19 02:52 89 18 45 11/27/19 02:00 96 18 142/68 (92) 98 8/7/20 01:00 107 17 169/79 (109) 99 11/27/19 00:00 Mechanical Ventilator Mechanical Ventilator Mechanical Ventilator 11/27/19 00:00 98.1 97 20 152/68 (96) 99 11/26/19 23:30 91 11/26/19 23:00 87 17 139/65 (89) 99 11/26/19 22:56 82 14 45 11/26/19 22:00 79 16 135/79 (97) 97 11/26/19 21:40 83 16 117/53 (74) 94 11/26/19 21:00 73 87/55 11/26/19 21:00 73 16 87/55 (66) 98 11/26/19 20:00 45 11/26/19 20:00 99.9 84 16 114/48 (70) 98 11/26/19 20:00 Mechanical Ventilator Mechanical Ventilator Mechanical Ventilator 11/26/19 19:49 114/48 11/26/19 19:43 90 17 45 11/26/19 19:20 78 11/26/19 19:00 79 17 117/61 (79) 96 11/26/19 18:00 100.2 74 16 105/50 (68) 93 11/26/19 17:00 94 20 152/70 (97) 99 11/26/19 16:05 92 11/26/19 16:05 Mechanical Ventilator Mechanical Ventilator Mechanical Ventilator 11/26/19 16:03 45 11/26/19 15:45 105 21 143/75 (97) 100 11/26/19 15:25 94 21 45 11/26/19 15:00 99 19 191/113 (139) 100 11/26/19 14:00 80 17 117/60 (79) 95 11/26/19 13:26 99.9 11/26/19 13:00 94 16 128/72 (90) 100 11/26/19 12:00 101 11/26/19 12:00 100.0 95 18 135/55 (81) 100 11/26/19 12:00 45 11/26/19 12:00 Mechanical Ventilator Mechanical Ventilator Mechanical Ventilator 11/26/19 11:34 102 17 45 11/26/19 11:05 95 16 110/65 (80) 100 11/26/19 10:30 93 16 103/55 (71) 100 Intake and Output 11/26/19 11/27/19 19:00 07:00 Intake Total 1043.708 ml 930.0000 ml Output Total 540 ml 1380 ml Balance 503.708 ml -450.0000 ml Free Water 150 ml IV Total 293.708 ml 330.0000 ml Tube Feeding 600 ml 600 ml Output Urine Total 540 ml 1380 ml # Bowel Movements 1 4 Laboratory Tests 11/26/19 12:59: POC Whole Blood Glucose [Pending] 11/26/19 17:00: Stool Occult Blood [Pending] 11/26/19 17:58: POC Whole Blood Glucose [Pending] 11/26/19 23:17: POC Whole Blood Glucose [Pending] 11/27/19 04:00: White Blood Count 11.6H, Red Blood Count 3.82L, Hemoglobin 10.0L, Hematocrit 34.5L, Mean Corpuscular Volume 90, Mean Corpuscular Hemoglobin 26.3L, Mean Corpuscular Hemoglobin Concent 29.1L, Red Cell Distribution Width 18.1H, Platelet Count 196, Mean Platelet Volume 6.5, Neutrophils (%) (Auto) , Lymphocytes (%) (Auto) , Monocytes (%) (Auto) , Eosinophils (%) (Auto) , Basophils (%) (Auto) , Differential Total Cells Counted 100, Neutrophils % ( Manual) 92H, Lymphocytes % (Manual) 6L, Monocytes % (Manual) 2, Eosinophils % ( Manual) 0, Basophils % (Manual) 0, Band Neutrophils 0, Platelet Estimate Adequate, Platelet Morphology Normal, Hypochromasia 1+, Anisocytosis 2+, Sodium Level 153H, Potassium Level 3.4L, Chloride Level 113H, Carbon Dioxide Level 36H , Anion Gap 4L, Blood Urea Nitrogen 39H, Creatinine 1.1, Estimat Glomerular Filtration Rate 51.9, Glucose Level 192H, Calcium Level 8.3L 11/27/19 04:44: POC Whole Blood Glucose [Pending] 11/27/19 09:37: POC Whole Blood Glucose [Pending] Height (Feet): 5 Height (Inches): 1.00 Weight (Pounds): 335 General Appearance: lethargic EENT: normal ENT inspection Neck: normal alignment Cardiovascular: normal rate, regular rhythm Respiratory/Chest: no respiratory distress, no accessory muscle use Extremities: normal inspection Skin: normal pigmentation Gustabo Carter DO Nov 27, 2019 10:19
--- NOTE | 2019-11-27 10:35 | Cardiac Electrophysiology PN ---
Assessment/Plan Assessment/Plan 1. Paroxysmal atrial fibrillation. On metoprolol 25 bid and Amiodarone 400 bid Off anticoagulation for hematuria and black stool EF 55% on echo. 2. S/P Shock. Off pressors. Tolerating Lopressor 25 bid 3. COVID positive pneumonia. 4. Diabetes, on insulin. 5. Respiratory failure on the Vent. S/P Tracheostomy 11/24/19 6. S/P Massive nasal bleed. 7. Severe LE edema.Lasix drip DCed 8. Dysphagia, S/P PEG 11/25/19 DW PNEUMATIC PRESS HAND Subjective Subjective In ICU on the vent with 35% Fio2. S/P tracheostomy 11/24/19 and PEG 11/25/19 Off Lasix drip. In atrial fib rate controlled on Lopressor 25 bid. Has poor iv Access and her midline is leaking and unstable per RN Objective Last 24 Hour Vital Signs Date Time Temp Pulse Resp B/P (MAP) Pulse Ox O2 Delivery O2 Flow Rate FiO2 11/27/19 09:29 80 108/54 11/27/19 08:00 45 11/27/19 07:05 86 24 45 11/27/19 07:00 87 19 129/58 (81) 100 11/27/19 06:00 96 19 130/92 (105) 98 11/27/19 05:00 100 19 111/89 (96) 98 11/27/19 04:00 45 11/27/19 04:00 106 11/27/19 04:00 100.0 102 18 155/72 (99) 100 11/27/19 04:00 Mechanical Ventilator Mechanical Ventilator Mechanical Ventilator 11/27/19 03:00 98 19 145/70 (95) 100 11/27/19 02:52 89 18 45 11/27/19 02:00 96 18 142/68 (92) 98 11/27/19 01:00 107 17 169/79 (109) 99 11/27/19 00:00 Mechanical Ventilator Mechanical Ventilator Mechanical Ventilator 11/27/19 00:00 98.1 97 20 152/68 (96) 99 11/26/19 23:30 91 11/26/19 23:00 87 17 139/65 (89) 99 11/26/19 22:56 82 14 45 11/26/19 22:00 79 16 135/79 (97) 97 8/6/20 21:40 83 16 117/53 (74) 94 11/26/19 21:00 73 87/55 11/26/19 21:00 73 16 87/55 (66) 98 11/26/19 20:00 45 11/26/19 20:00 99.9 84 16 114/48 (70) 98 11/26/19 20:00 Mechanical Ventilator Mechanical Ventilator Mechanical Ventilator 11/26/19 19:49 114/48 11/26/19 19:43 90 17 45 11/26/19 19:20 78 11/26/19 19:00 79 17 117/61 (79) 96 11/26/19 18:00 100.2 74 16 105/50 (68) 93 11/26/19 17:00 94 20 152/70 (97) 99 11/26/19 16:05 92 11/26/19 16:05 Mechanical Ventilator Mechanical Ventilator Mechanical Ventilator 11/26/19 16:03 45 11/26/19 15:45 105 21 143/75 (97) 100 11/26/19 15:25 94 21 45 11/26/19 15:00 99 19 191/113 (139) 100 11/26/19 14:00 80 17 117/60 (79) 95 11/26/19 13:26 99.9 11/26/19 13:00 94 16 128/72 (90) 100 11/26/19 12:00 101 11/26/19 12:00 100.0 95 18 135/55 (81) 100 11/26/19 12:00 45 11/26/19 12:00 Mechanical Ventilator Mechanical Ventilator Mechanical Ventilator 11/26/19 11:34 102 17 45 11/26/19 11:05 95 16 110/65 (80) 100 11/26/19 10:30 93 16 103/55 (71) 100 Intake and Output 11/26/19 11/27/19 19:00 07:00 Intake Total 1043.708 ml 930.0000 ml Output Total 540 ml 1380 ml Balance 503.708 ml -450.0000 ml Free Water 150 ml IV Total 293.708 ml 330.0000 ml Tube Feeding 600 ml 600 ml Output Urine Total 540 ml 1380 ml # Bowel Movements 1 4 Laboratory Tests Test 11/26/19 12:59 11/26/19 17:00 11/26/19 17:58 11/26/19 23:17 POC Whole Blood Glucose Pending Pending Pending Stool Occult Blood Pending Test 11/27/19 04:00 11/27/19 04:44 11/27/19 09:37 White Blood Count 11.6 K/UL (4.8-10.8) H Red Blood Count 3.82 M/UL (4.20-5.40) L Hemoglobin 10.0 G/DL (12.0-16.0) L Hematocrit 34.5 % (37.0-47.0) L Mean Corpuscular Volume 90 FL (80-99) Mean Corpuscular Hemoglobin 26.3 PG (27.0-31.0) L Mean Corpuscular Hemoglobin Concent 29.1 G/DL (32.0-36.0) L Red Cell Distribution Width 18.1 % (11.6-14.8) H Platelet Count 196 K/UL (150-450) Mean Platelet Volume 6.5 FL (6.5-10.1) Neutrophils (%) (Auto) % (45.0-75.0) Lymphocytes (%) (Auto) % (20.0-45.0) Monocytes (%) (Auto) % (1.0-10.0) Eosinophils (%) (Auto) % (0.0-3.0) Basophils (%) (Auto) % (0.0-2.0) Differential Total Cells Counted 100 Neutrophils % (Manual) 92 % (45-75) H Lymphocytes % (Manual) 6 % (20-45) L Monocytes % (Manual) 2 % (1-10) Eosinophils % (Manual) 0 % (0-3) Basophils % (Manual) 0 % (0-2) Band Neutrophils 0 % (0-8) Platelet Estimate Adequate Platelet Morphology Normal Hypochromasia 1+ Anisocytosis 2+ Sodium Level 153 MMOL/L (136-145) H Potassium Level 3.4 MMOL/L (3.5-5.1) L Chloride Level 113 MMOL/L (98-107) H Carbon Dioxide Level 36 MMOL/L (21-32) H Anion Gap 4 mmol/L (5-15) L Blood Urea Nitrogen 39 mg/dL (7-18) H Creatinine 1.1 MG/DL (0.55-1.30) Estimat Glomerular Filtration Rate 51.9 mL/min (>60) Glucose Level 192 MG/DL (74-106) H Calcium Level 8.3 MG/DL (8.5-10.1) L POC Whole Blood Glucose Pending Pending Objective HEAD AND NECK: No JVD. OG tube. Tracheostomy in place. LUNGS: Coarse rhonchi. CARDIOVASCULAR: Irregularly irregular. S1 and S2 with no gallop or murmur. ABDOMEN: Soft.PEG EXTREMITIES: 2 plus pitting edema. Gabe Snell MD Nov 27, 2019 10:35
--- NOTE | 2019-11-27 12:10 | Hematology/Onc Progress Note ---
Assessment/Plan Assessment/Plan # Anemia of chronic disease due to underlying chronic medical issues, multifactorial v Gi bleed in this case likely related covid19+++++++++ --> Anemia workup has been ordered, rule out gi bleed --> No evidence of hemolysis is noted, peripheral smear has been reviewed. --> Hgb goal >7. Transfuse prn. --> Epogen or iron at this time is not particularly indicated --> Medications have been reviewed --> low threshold for gi evaluation in case has occult + --> hgb 10-->9.8-->9.2-->9.7-->10.7->10->11->10.2->10.6->9.4->10.8->9.8-->10->10 # Leukocytosis/elevated white blood cell count, unspecified likely related to covid19 --> have reviewed peripheral smear and bandemia/neutrophilia noted --> continue antibiotics if they have been started by ID team zosyn --> on remdesivir, dexamathasone --> monitor for resolution --> wbc 12->11-->11-->13->16-->21-->17-->14-->14->13-->11 # COVID 19 pneumonia --> on vent --> respiratory failure --> s/p vent reintubation 11/08 --> 8/ trach was done # Diabetes mellitus --> iss and bs goal <140 # Dysphagia --> peg 11/24 # Hypertension --> sbp goal <150 # Dvt ppx scds Appreciate consultation and jimena DYSON Subjective Allergies: Coded Allergies: No Known Allergies (Unverified , 11/06/19) All Systems: reviewed and negative except above Subjective 11/09 weaning prn, meds reviewed, labs noted, hgb 9.2 11/10 on vent, no bleeding, hgb remains low, jimena Dyson Jose R in am 11/11 on vent, fluids, ogf tube as well, labs pending in am 11/12 remains altered, no bleeding, labs reviewed, cbc noted 11/13 attempted weaning, but did not do well, no bleeding, hgb 10 11/14 intubated, weaning, on vent, with og, labs noted, abx 11/15 labs noted, no bleedign, weaning protocol, no night sweats, elev wbc, with fevers 11/16 no bleeding, jimena Broussard rn in the am, on vent, weaning but failed 11/17 meds reviewed, no night sweats, jimena rn, no bleeding 11/18 extubated, on nc at this time, no bleeding, meds reviewed 11/19 labs noted, no bleeding, on vent again, weaning 11/21 labs reviewed, hgb 9.4, no hemolysis, very difficult to obtain repeat lab draw in am 11/22 unable to wean vent, labs noted, plan for trach tomorrow, on fentanyl, still edematous 11/23 is for trach today and peg tomorrow, stil edematous, on lasix gtt 11/24 meds noted, no bleeding, on vent, for peg this am, trach functional 11/25 labs reviewed, no bleeding, meds noted, obtunded, hr better 11/26 picc line continues to leak, no bleeding, labs noted, low grade fever, id aware Objective Objective Current Medications Medications (Trade) Dose Ordered Sig/Robyn Route PRN Reason Start Time Stop Time Status Last Admin Dose Admin Acetaminophen (Tylenol) 650 mg Q6H PRN GT Temp >100.5 11/24/19 13:30 12/12/19 00:14 11/26/19 12:56 Amiodarone HCl (Cordarone) 400 mg EVERY 12 HOURS GT 11/24/19 21:00 02/18/20 09:29 11/27/19 08:44 Cefepime HCl 2 gm/ Dextrose 55 ml @ 110 mls/hr Q12H IVPB 11/25/19 12:00 12/02/19 11:59 11/26/19 23:19 Chlorhexidine Gluconate (Miya-Hex 2%) 1 applic DAILY@2000 TOPIC 11/08/19 21:30 02/06/20 21:29 11/26/19 21:20 Clonidine HCl (Catapres Tab) 0.1 mg Q4H PRN GT For High Blood Pressure 11/24/19 13:30 02/09/20 10:59 Dextrose (Dextrose 50%) 25 ml Q30M PRN IV Hypoglycemia 11/23/19 06:45 02/21/20 06:44 Dextrose (Dextrose 50%) 50 ml Q30M PRN IV Hypoglycemia 11/23/19 06:45 02/21/20 06:44 Docusate Sodium (Colace) 100 mg EVERY 12 HOURS GT 11/25/19 09:00 12/23/19 08:59 11/26/19 21:20 Dopamine HCl/ Dextrose 250 ml @ 0 mls/hr Q24H IV 11/19/19 18:36 02/17/20 18:35 11/19/19 18:41 Famotidine (Pepcid I.v.) 20 mg Q12HR IVP 11/08/19 15:30 12/08/19 15:29 11/27/19 08:44 Folic Acid (Folate) 2 mg DAILY GT 11/25/19 09:00 12/15/19 08:59 11/27/19 08:44 Insulin Aspart (NovoLOG) EVERY 6 HOURS SUBQ 11/15/19 12:00 02/11/20 20:59 11/27/19 05:23 Insulin Detemir (Levemir) 12 units BID SUBQ 11/24/19 09:00 02/21/20 08:59 11/27/19 09:40 Lorazepam (Ativan 2mg/ml 1ml) 2 mg Q3H PRN IV For Anxiety 11/26/19 07:45 12/03/19 07:44 11/27/19 06:30 Metoprolol Tartrate (Lopressor) 25 mg Q12HR GT 11/24/19 21:00 02/18/20 09:29 11/27/19 09:29 Norepinephrine Bitartrate 250 ml @ 0 mls/hr Q24H IV 11/19/19 19:49 02/17/20 19:48 Vancomycin HCl (Vanco pharmacy to dose) 1 ea DAILY PRN MISC Per rx protocol 11/26/19 14:30 12/26/19 14:29 Vancomycin HCl 1 gm/Sodium Chloride 275 ml @ 183.708 mls/hr Q12HR@0500,1700 IVPB 11/26/19 17:00 12/01/19 16:59 11/27/19 05:22 Last 24 Hour Vital Signs Date Time Temp Pulse Resp B/P (MAP) Pulse Ox O2 Delivery O2 Flow Rate FiO2 11/27/19 11:00 72 16 113/57 (75) 94 8/7/20 10:40 72 18 45 11/27/19 10:00 74 16 110/47 (68) 93 11/27/19 09:29 80 108/54 11/27/19 09:00 80 16 108/54 (72) 97 11/27/19 08:00 Mechanical Ventilator Mechanical Ventilator Mechanical Ventilator 11/27/19 08:00 45 11/27/19 08:00 98.0 77 17 85/38 (54) 90 11/27/19 08:00 84 11/27/19 07:05 86 24 45 11/27/19 07:00 87 19 129/58 (81) 100 11/27/19 06:00 96 19 130/92 (105) 98 11/27/19 05:00 100 19 111/89 (96) 98 11/27/19 04:00 45 11/27/19 04:00 106 11/27/19 04:00 100.0 102 18 155/72 (99) 100 11/27/19 04:00 Mechanical Ventilator Mechanical Ventilator Mechanical Ventilator 11/27/19 03:00 98 19 145/70 (95) 100 11/27/19 02:52 89 18 45 11/27/19 02:00 96 18 142/68 (92) 98 11/27/19 01:00 107 17 169/79 (109) 99 11/27/19 00:00 Mechanical Ventilator Mechanical Ventilator Mechanical Ventilator 11/27/19 00:00 98.1 97 20 152/68 (96) 99 11/26/19 23:30 91 11/26/19 23:00 87 17 139/65 (89) 99 11/26/19 22:56 82 14 45 11/26/19 22:00 79 16 135/79 (97) 97 11/26/19 21:40 83 16 117/53 (74) 94 11/26/19 21:00 73 87/55 11/26/19 21:00 73 16 87/55 (66) 98 11/26/19 20:00 45 11/26/19 20:00 99.9 84 16 114/48 (70) 98 11/26/19 20:00 Mechanical Ventilator Mechanical Ventilator Mechanical Ventilator 11/26/19 19:49 114/48 11/26/19 19:43 90 17 45 11/26/19 19:20 78 11/26/19 19:00 79 17 117/61 (79) 96 11/26/19 18:00 100.2 74 16 105/50 (68) 93 11/26/19 17:00 94 20 152/70 (97) 99 11/26/19 16:05 92 11/26/19 16:05 Mechanical Ventilator Mechanical Ventilator Mechanical Ventilator 11/26/19 16:03 45 11/26/19 15:45 105 21 143/75 (97) 100 11/26/19 15:25 94 21 45 11/26/19 15:00 99 19 191/113 (139) 100 11/26/19 14:00 80 17 117/60 (79) 95 11/26/19 13:26 99.9 11/26/19 13:00 94 16 128/72 (90) 100 11/26/19 12:00 101 11/26/19 12:00 100.0 95 18 135/55 (81) 100 11/26/19 12:00 45 11/26/19 12:00 Mechanical Ventilator Mechanical Ventilator Mechanical Ventilator 11/26/19 11:34 102 17 45 11/26/19 11:05 95 16 110/65 (80) 100 11/26/19 10:30 93 16 103/55 (71) 100 11/26/19 10:00 99.7 91 16 121/66 (84) 100 11/26/19 09:00 89 16 117/81 (93) 100 11/26/19 08:47 115 110/53 11/26/19 08:15 78 20 98 11/26/19 08:00 45 11/26/19 08:00 95 16 137/69 (91) 100 11/26/19 08:00 Mechanical Ventilator Mechanical Ventilator Mechanical Ventilator 11/26/19 08:00 93 11/26/19 07:45 104 15 45 11/26/19 07:00 94 16 92/60 (71) 100 11/26/19 06:00 101 16 120/65 (83) 100 11/26/19 05:40 102 16 128/70 (89) 100 11/26/19 05:30 111 18 133/69 (90) 99 11/26/19 05:16 130 19 183/122 (142) 100 11/26/19 05:00 120 22 181/113 (135) 100 8/6/20 04:30 90 11 141/84 (103) 100 11/26/19 04:00 99.0 95 13 147/84 (105) 99 11/26/19 04:00 14 141/84 Mechanical Ventilator 45 11/26/19 04:00 Mechanical Ventilator Mechanical Ventilator Mechanical Ventilator 11/26/19 04:00 45 11/26/19 03:30 85 13 134/81 (98) 99 11/26/19 03:14 88 14 45 11/26/19 03:03 100 11/26/19 03:00 89 15 124/68 (86) 99 11/26/19 03:00 14 124/68 Mechanical Ventilator 45 11/26/19 02:30 83 14 111/67 (82) 100 11/26/19 02:00 15 122/70 Mechanical Ventilator 45 11/26/19 02:00 81 14 122/70 (87) 100 11/26/19 01:30 81 13 109/66 (80) 100 11/26/19 01:00 14 110/68 Mechanical Ventilator 45 11/26/19 01:00 81 12 110/68 (82) 100 11/26/19 00:30 84 10 125/61 (82) 98 11/26/19 00:00 98.9 82 11 109/62 (78) 97 11/26/19 00:00 13 109/62 Mechanical Ventilator 45 11/26/19 00:00 Mechanical Ventilator Mechanical Ventilator Mechanical Ventilator 11/25/19 23:28 79 14 45 11/25/19 23:01 66 11/25/19 23:00 78 0 101/56 (71) 100 11/25/19 23:00 15 112/59 Mechanical Ventilator 45 11/25/19 22:30 77 0 105/58 (74) 100 11/25/19 22:00 15 105/58 Mechanical Ventilator 45 11/25/19 22:00 75 0 93/55 (68) 100 11/25/19 21:00 82 0 105/47 (66) 100 11/25/19 21:00 15 105/47 Mechanical Ventilator 45 11/25/19 20:30 102 16 133/69 (90) 100 11/25/19 20:19 15 117/62 Mechanical Ventilator 40 11/25/19 20:18 108 117/62 11/25/19 20:01 110 11/25/19 20:00 98.9 101 14 117/62 (80) 100 11/25/19 20:00 12 117/62 Mechanical Ventilator 45 11/25/19 20:00 45 11/25/19 20:00 Mechanical Ventilator Mechanical Ventilator Mechanical Ventilator 11/25/19 19:49 133/63 11/25/19 19:31 96 15 45 11/25/19 19:30 106 10 133/63 (86) 100 11/25/19 19:00 116 13 156/85 (108) 100 11/25/19 19:00 14 156/85 Mechanical Ventilator 45 11/25/19 18:36 99.0 141 21 183/123 (143) 100 11/25/19 18:00 106 22 161/85 (110) 100 11/25/19 18:00 22 163/82 Mechanical Ventilator 45 11/25/19 17:30 98.6 95 20 163/82 (109) 99 11/25/19 17:15 Mechanical Ventilator Mechanical Ventilator Mechanical Ventilator 11/25/19 17:03 92 16 166/97 (120) 98 11/25/19 17:00 15 166/97 Mechanical Ventilator 45 11/25/19 16:30 95 14 144/77 (99) 98 11/25/19 16:00 98.8 91 15 135/83 (100) 99 11/25/19 16:00 45 11/25/19 16:00 15 135/83 Mechanical Ventilator 45 11/25/19 16:00 Mechanical Ventilator Mechanical Ventilator Mechanical Ventilator 11/25/19 15:30 86 14 138/81 (100) 98 11/25/19 15:20 83 11/25/19 15:08 95 16 45 11/25/19 15:00 82 14 124/66 (85) 98 11/25/19 15:00 14 124/66 Mechanical Ventilator 45 11/25/19 14:30 81 8 125/60 (81) 98 11/25/19 14:00 85 15 121/63 (82) 98 11/25/19 14:00 15 121/63 Mechanical Ventilator 45 11/25/19 13:05 86 19 96 11/25/19 13:00 80 16 124/65 (84) 94 11/25/19 13:00 16 124/65 Mechanical Ventilator 45 11/25/19 13:00 Mechanical Ventilator Mechanical Ventilator Mechanical Ventilator Intake and Output 11/26/19 11/27/19 19:00 07:00 Intake Total 1043.708 ml 930.0000 ml Output Total 540 ml 1380 ml Balance 503.708 ml -450.0000 ml Free Water 150 ml IV Total 293.708 ml 330.0000 ml Tube Feeding 600 ml 600 ml Output Urine Total 540 ml 1380 ml # Bowel Movements 2 4 Labs Test 11/24/19 12:40 11/24/19 17:32 11/25/19 00:07 11/25/19 05:26 POC Whole Blood Glucose 141 MG/DL (74-106) 122 MG/DL (74-106) 126 MG/DL (74-106) Test 11/25/19 08:18 11/25/19 08:45 11/25/19 12:21 11/25/19 18:40 White Blood Count 15.1 K/UL (4.8-10.8) Red Blood Count 4.03 M/UL (4.20-5.40) Hemoglobin 10.7 G/DL (12.0-16.0) Hematocrit 35.4 % (37.0-47.0) Mean Corpuscular Volume 88 FL (80-99) Mean Corpuscular Hemoglobin 26.6 PG (27.0-31.0) Mean Corpuscular Hemoglobin Concent 30.3 G/DL (32.0-36.0) Red Cell Distribution Width 17.1 % (11.6-14.8) Platelet Count 200 K/UL (150-450) Mean Platelet Volume 6.5 FL (6.5-10.1) Neutrophils (%) (Auto) % (45.0-75.0) Lymphocytes (%) (Auto) % (20.0-45.0) Monocytes (%) (Auto) % (1.0-10.0) Eosinophils (%) (Auto) % (0.0-3.0) Basophils (%) (Auto) % (0.0-2.0) Differential Total Cells Counted 100 Neutrophils % (Manual) 97 % (45-75) Lymphocytes % (Manual) 2 % (20-45) Monocytes % (Manual) 1 % (1-10) Eosinophils % (Manual) 0 % (0-3) Basophils % (Manual) 0 % (0-2) Band Neutrophils 0 % (0-8) Platelet Estimate Adequate Platelet Morphology Normal Hypochromasia 1+ Anisocytosis 1+ Prothrombin Time 12.0 SEC (9.30-11.50) Prothromb Time International Ratio 1.1 (0.9-1.1) Activated Partial Thromboplast Time 25 SEC (23-33) Sodium Level 150 MMOL/L (136-145) Potassium Level 3.2 MMOL/L (3.5-5.1) Chloride Level 110 MMOL/L (98-107) Carbon Dioxide Level 37 MMOL/L (21-32) Anion Gap 3 mmol/L (5-15) Blood Urea Nitrogen 49 mg/dL (7-18) Creatinine 1.1 MG/DL (0.55-1.30) Estimat Glomerular Filtration Rate 51.9 mL/min (>60) Glucose Level 123 MG/DL (74-106) Calcium Level 8.4 MG/DL (8.5-10.1) Total Bilirubin 1.3 MG/DL (0.2-1.0) Direct Bilirubin 0.9 MG/DL (0.0-0.3) Aspartate Amino Transf (AST/SGOT) 35 U/L (15-37) Alanine Aminotransferase (ALT/SGPT) 35 U/L (12-78) Alkaline Phosphatase 175 U/L (46-116) Total Protein 6.2 G/DL (6.4-8.2) Albumin 2.0 G/DL (3.4-5.0) Globulin 4.2 g/dL Albumin/Globulin Ratio 0.5 (1.0-2.7) Thyroid Stimulating Hormone (TSH) 3.603 uiU/mL (0.358-3.740) Free Thyroxine 0.65 NG/DL (0.76-1.46) Test 11/25/19 23:34 11/26/19 04:00 11/26/19 05:24 11/26/19 09:19 White Blood Count 13.3 K/UL (4.8-10.8) Red Blood Count 3.97 M/UL (4.20-5.40) Hemoglobin 10.5 G/DL (12.0-16.0) Hematocrit 35.3 % (37.0-47.0) Mean Corpuscular Volume 89 FL (80-99) Mean Corpuscular Hemoglobin 26.3 PG (27.0-31.0) Mean Corpuscular Hemoglobin Concent 29.6 G/DL (32.0-36.0) Red Cell Distribution Width 17.3 % (11.6-14.8) Platelet Count 194 K/UL (150-450) Mean Platelet Volume 6.9 FL (6.5-10.1) Neutrophils (%) (Auto) % (45.0-75.0) Lymphocytes (%) (Auto) % (20.0-45.0) Monocytes (%) (Auto) % (1.0-10.0) Eosinophils (%) (Auto) % (0.0-3.0) Basophils (%) (Auto) % (0.0-2.0) Differential Total Cells Counted 100 Neutrophils % (Manual) 95 % (45-75) Lymphocytes % (Manual) 3 % (20-45) Monocytes % (Manual) 2 % (1-10) Eosinophils % (Manual) 0 % (0-3) Basophils % (Manual) 0 % (0-2) Band Neutrophils 0 % (0-8) Platelet Estimate Adequate Platelet Morphology Normal Hypochromasia 1+ Anisocytosis 1+ Sodium Level 149 MMOL/L (136-145) Potassium Level 3.8 MMOL/L (3.5-5.1) Chloride Level 110 MMOL/L (98-107) Carbon Dioxide Level 35 MMOL/L (21-32) Anion Gap 4 mmol/L (5-15) Blood Urea Nitrogen 47 mg/dL (7-18) Creatinine 1.2 MG/DL (0.55-1.30) Estimat Glomerular Filtration Rate 47.0 mL/min (>60) Glucose Level 167 MG/DL (74-106) Uric Acid 6.6 MG/DL (2.6-7.2) Calcium Level 8.4 MG/DL (8.5-10.1) Phosphorus Level 4.0 MG/DL (2.5-4.9) Magnesium Level 2.2 MG/DL (1.8-2.4) Total Bilirubin 1.2 MG/DL (0.2-1.0) Direct Bilirubin 0.7 MG/DL (0.0-0.3) Aspartate Amino Transf (AST/SGOT) 37 U/L (15-37) Alanine Aminotransferase (ALT/SGPT) 31 U/L (12-78) Alkaline Phosphatase 185 U/L (46-116) C-Reactive Protein, Quantitative 4.2 mg/dL (0.00-0.90) Pro-B-Type Natriuretic Peptide 8562 pg/mL (0-125) Total Protein 6.2 G/DL (6.4-8.2) Albumin 2.0 G/DL (3.4-5.0) Test 11/26/19 12:59 11/26/19 17:00 11/26/19 17:58 11/26/19 23:17 Test 11/27/19 04:00 11/27/19 04:44 11/27/19 09:37 White Blood Count 11.6 K/UL (4.8-10.8) Red Blood Count 3.82 M/UL (4.20-5.40) Hemoglobin 10.0 G/DL (12.0-16.0) Hematocrit 34.5 % (37.0-47.0) Mean Corpuscular Volume 90 FL (80-99) Mean Corpuscular Hemoglobin 26.3 PG (27.0-31.0) Mean Corpuscular Hemoglobin Concent 29.1 G/DL (32.0-36.0) Red Cell Distribution Width 18.1 % (11.6-14.8) Platelet Count 196 K/UL (150-450) Mean Platelet Volume 6.5 FL (6.5-10.1) Neutrophils (%) (Auto) % (45.0-75.0) Lymphocytes (%) (Auto) % (20.0-45.0) Monocytes (%) (Auto) % (1.0-10.0) Eosinophils (%) (Auto) % (0.0-3.0) Basophils (%) (Auto) % (0.0-2.0) Differential Total Cells Counted 100 Neutrophils % (Manual) 92 % (45-75) Lymphocytes % (Manual) 6 % (20-45) Monocytes % (Manual) 2 % (1-10) Eosinophils % (Manual) 0 % (0-3) Basophils % (Manual) 0 % (0-2) Band Neutrophils 0 % (0-8) Platelet Estimate Adequate Platelet Morphology Normal Hypochromasia 1+ Anisocytosis 2+ Sodium Level 153 MMOL/L (136-145) Potassium Level 3.4 MMOL/L (3.5-5.1) Chloride Level 113 MMOL/L (98-107) Carbon Dioxide Level 36 MMOL/L (21-32) Anion Gap 4 mmol/L (5-15) Blood Urea Nitrogen 39 mg/dL (7-18) Creatinine 1.1 MG/DL (0.55-1.30) Estimat Glomerular Filtration Rate 51.9 mL/min (>60) Glucose Level 192 MG/DL (74-106) Calcium Level 8.3 MG/DL (8.5-10.1) Height (Feet): 5 Height (Inches): 1.00 Weight (Pounds): 335 Objective Physical Exam: Vitals: reviewed General: NAD HEENT: nc, at Neck: supple Chest: clear breath sounds on vent++trach+ Cardiovascular: RRR, no s3, s4 Abdomen: soft, nontender, nd++peg Extremities: no cce, normal range of motion Neuro: alert and oriented Ismael Fischer MD Nov 27, 2019 12:10
[2019-11-27] MEDS: Cefepime HCl 2 GM in D5W 55 ML IVPB SCH ×2 (12:45→23:35)
--- NOTE | 2019-11-27 14:27 | Infectious Diseases Prog Note ---
Assessment/Plan Assessment/Plan A: 1. COVID-19 pneumonia. 2. Diabetes with hyper 3. Hypertension. 4. Hypoxic respiratory failure 5. Morbid obesity 6. Nasal bleeding 7. Lactic acidosis 8. Hyperkalemia 9. Leukocytosis improving 10. Pneumonia with MSSA, Proteus & Enterobacter PLAN: 1. Finished Remdesivir 2. Continue isolation. 3. Continue Cefepime 4. Discontinue Vancomycin Subjective ROS Limited/Unobtainable: Yes Constitutional: Reports: fever, other - low grade in am Allergies: Coded Allergies: No Known Allergies (Unverified , 11/06/19) Objective Last 24 Hour Vital Signs Date Time Temp Pulse Resp B/P (MAP) Pulse Ox O2 Delivery O2 Flow Rate FiO2 11/27/19 13:00 74 14 93/53 (66) 93 11/27/19 12:00 Mechanical Ventilator Mechanical Ventilator Mechanical Ventilator 11/27/19 12:00 45 11/27/19 12:00 97.7 73 15 123/61 (81) 92 11/27/19 11:00 72 16 113/57 (75) 94 11/27/19 10:40 72 18 45 11/27/19 10:00 74 16 110/47 (68) 93 11/27/19 09:29 80 108/54 11/27/19 09:00 80 16 108/54 (72) 97 11/27/19 08:00 Mechanical Ventilator Mechanical Ventilator Mechanical Ventilator 11/27/19 08:00 45 11/27/19 08:00 98.0 77 17 85/38 (54) 90 11/27/19 08:00 84 11/27/19 07:05 86 24 45 11/27/19 07:00 87 19 129/58 (81) 100 11/27/19 06:00 96 19 130/92 (105) 98 11/27/19 05:00 100 19 111/89 (96) 98 11/27/19 04:00 45 11/27/19 04:00 106 11/27/19 04:00 100.0 102 18 155/72 (99) 100 11/27/19 04:00 Mechanical Ventilator Mechanical Ventilator Mechanical Ventilator 11/27/19 03:00 98 19 145/70 (95) 100 11/27/19 02:52 89 18 45 11/27/19 02:00 96 18 142/68 (92) 98 11/27/19 01:00 107 17 169/79 (109) 99 11/27/19 00:00 Mechanical Ventilator Mechanical Ventilator Mechanical Ventilator 11/27/19 00:00 98.1 97 20 152/68 (96) 99 11/26/19 23:30 91 11/26/19 23:00 87 17 139/65 (89) 99 11/26/19 22:56 82 14 45 11/26/19 22:00 79 16 135/79 (97) 97 11/26/19 21:40 83 16 117/53 (74) 94 11/26/19 21:00 73 87/55 11/26/19 21:00 73 16 87/55 (66) 98 11/26/19 20:00 45 11/26/19 20:00 99.9 84 16 114/48 (70) 98 11/26/19 20:00 Mechanical Ventilator Mechanical Ventilator Mechanical Ventilator 11/26/19 19:49 114/48 11/26/19 19:43 90 17 45 11/26/19 19:20 78 11/26/19 19:00 79 17 117/61 (79) 96 11/26/19 18:00 100.2 74 16 105/50 (68) 93 11/26/19 17:00 94 20 152/70 (97) 99 11/26/19 16:05 92 11/26/19 16:05 Mechanical Ventilator Mechanical Ventilator Mechanical Ventilator 11/26/19 16:03 45 11/26/19 15:45 105 21 143/75 (97) 100 11/26/19 15:25 94 21 45 11/26/19 15:00 99 19 191/113 (139) 100 Height (Feet): 5 Height (Inches): 1.00 Weight (Pounds): 335 HEENT: status post trach Respiratory/Chest: other - on ventilator Cardiovascular: normal rate Abdomen: soft, non tender, other - GT status Extremities: other - edema Neurologic/Psychiatric: unresponsiveness Laboratory Tests Test 11/26/19 17:00 11/26/19 17:58 11/26/19 23:17 11/27/19 04:00 Stool Occult Blood Positive (NEGATIVE) POC Whole Blood Glucose Pending Pending White Blood Count 11.6 K/UL (4.8-10.8) H Red Blood Count 3.82 M/UL (4.20-5.40) L Hemoglobin 10.0 G/DL (12.0-16.0) L Hematocrit 34.5 % (37.0-47.0) L Mean Corpuscular Volume 90 FL (80-99) Mean Corpuscular Hemoglobin 26.3 PG (27.0-31.0) L Mean Corpuscular Hemoglobin Concent 29.1 G/DL (32.0-36.0) L Red Cell Distribution Width 18.1 % (11.6-14.8) H Platelet Count 196 K/UL (150-450) Mean Platelet Volume 6.5 FL (6.5-10.1) Neutrophils (%) (Auto) % (45.0-75.0) Lymphocytes (%) (Auto) % (20.0-45.0) Monocytes (%) (Auto) % (1.0-10.0) Eosinophils (%) (Auto) % (0.0-3.0) Basophils (%) (Auto) % (0.0-2.0) Differential Total Cells Counted 100 Neutrophils % (Manual) 92 % (45-75) H Lymphocytes % (Manual) 6 % (20-45) L Monocytes % (Manual) 2 % (1-10) Eosinophils % (Manual) 0 % (0-3) Basophils % (Manual) 0 % (0-2) Band Neutrophils 0 % (0-8) Platelet Estimate Adequate Platelet Morphology Normal Hypochromasia 1+ Anisocytosis 2+ Sodium Level 153 MMOL/L (136-145) H Potassium Level 3.4 MMOL/L (3.5-5.1) L Chloride Level 113 MMOL/L (98-107) H Carbon Dioxide Level 36 MMOL/L (21-32) H Anion Gap 4 mmol/L (5-15) L Blood Urea Nitrogen 39 mg/dL (7-18) H Creatinine 1.1 MG/DL (0.55-1.30) Estimat Glomerular Filtration Rate 51.9 mL/min (>60) Glucose Level 192 MG/DL (74-106) H Calcium Level 8.3 MG/DL (8.5-10.1) L Test 11/27/19 04:44 11/27/19 09:37 POC Whole Blood Glucose Pending Pending Current Medications Medications (Trade) Dose Ordered Sig/Robyn Route PRN Reason Start Time Stop Time Status Last Admin Dose Admin Acetaminophen (Tylenol) 650 mg Q6H PRN GT Temp >100.5 11/24/19 13:30 12/12/19 00:14 11/26/19 12:56 Amiodarone HCl (Cordarone) 400 mg EVERY 12 HOURS GT 11/24/19 21:00 02/18/20 09:29 11/27/19 08:44 Cefepime HCl 2 gm/ Dextrose 55 ml @ 110 mls/hr Q12H IVPB 11/25/19 12:00 12/02/19 11:59 11/27/19 12:45 Chlorhexidine Gluconate (Miya-Hex 2%) 1 applic DAILY@2000 TOPIC 11/08/19 21:30 02/06/20 21:29 11/26/19 21:20 Clonidine HCl (Catapres Tab) 0.1 mg Q4H PRN GT For High Blood Pressure 11/24/19 13:30 02/09/20 10:59 Dextrose (Dextrose 50%) 25 ml Q30M PRN IV Hypoglycemia 11/23/19 06:45 02/21/20 06:44 Dextrose (Dextrose 50%) 50 ml Q30M PRN IV Hypoglycemia 11/23/19 06:45 02/21/20 06:44 Docusate Sodium (Colace) 100 mg EVERY 12 HOURS GT 11/25/19 09:00 12/23/19 08:59 11/26/19 21:20 Dopamine HCl/ Dextrose 250 ml @ 0 mls/hr Q24H IV 11/19/19 18:36 02/17/20 18:35 11/19/19 18:41 Famotidine (Pepcid I.v.) 20 mg Q12HR IVP 11/08/19 15:30 12/08/19 15:29 11/27/19 08:44 Folic Acid (Folate) 2 mg DAILY GT 11/25/19 09:00 12/15/19 08:59 11/27/19 08:44 Insulin Aspart (NovoLOG) EVERY 6 HOURS SUBQ 11/15/19 12:00 02/11/20 20:59 11/27/19 12:56 Insulin Detemir (Levemir) 12 units BID SUBQ 11/24/19 09:00 02/21/20 08:59 11/27/19 09:40 Lorazepam (Ativan 2mg/ml 1ml) 2 mg Q3H PRN IV For Anxiety 11/26/19 07:45 12/03/19 07:44 11/27/19 06:30 Metoprolol Tartrate (Lopressor) 25 mg Q12HR GT 11/24/19 21:00 02/18/20 09:29 11/27/19 09:29 Norepinephrine Bitartrate 250 ml @ 0 mls/hr Q24H IV 11/19/19 19:49 02/17/20 19:48 Vancomycin HCl ([facility]anco pharmacy to dose) 1 ea DAILY PRN MISC Per rx protocol 11/26/19 14:30 12/26/19 14:29 Vancomycin HCl 1 gm/Sodium Chloride 275 ml @ 183.708 mls/hr Q12HR@0500,1700 IVPB 11/26/19 17:00 12/01/19 16:59 11/27/19 05:22 Jose Hernandez MD Nov 27, 2019 14:27
--- NOTE | 2019-11-27 15:03 | Surgery Progress Note ---
Surgery Progress Note Subjective Procedure Performed tracheostomy Additional Comments no acute events weaning vent trach okay labs noted Objective Last 24 Hour Vital Signs Date Time Temp Pulse Resp B/P (MAP) Pulse Ox O2 Delivery O2 Flow Rate FiO2 11/27/19 14:00 75 12 102/52 (69) 95 11/27/19 13:00 74 14 93/53 (66) 93 11/27/19 12:00 70 11/27/19 12:00 Mechanical Ventilator Mechanical Ventilator Mechanical Ventilator 11/27/19 12:00 45 11/27/19 12:00 97.7 73 15 123/61 (81) 92 11/27/19 11:00 72 16 113/57 (75) 94 11/27/19 10:40 72 18 45 11/27/19 10:00 74 16 110/47 (68) 93 11/27/19 09:29 80 108/54 11/27/19 09:00 80 16 108/54 (72) 97 11/27/19 08:00 Mechanical Ventilator Mechanical Ventilator Mechanical Ventilator 11/27/19 08:00 45 11/27/19 08:00 98.0 77 17 85/38 (54) 90 11/27/19 08:00 84 11/27/19 07:05 86 24 45 11/27/19 07:00 87 19 129/58 (81) 100 11/27/19 06:00 96 19 130/92 (105) 98 11/27/19 05:00 100 19 111/89 (96) 98 11/27/19 04:00 45 11/27/19 04:00 106 11/27/19 04:00 100.0 102 18 155/72 (99) 100 11/27/19 04:00 Mechanical Ventilator Mechanical Ventilator Mechanical Ventilator 11/27/19 03:00 98 19 145/70 (95) 100 11/27/19 02:52 89 18 45 11/27/19 02:00 96 18 142/68 (92) 98 11/27/19 01:00 107 17 169/79 (109) 99 11/27/19 00:00 Mechanical Ventilator Mechanical Ventilator Mechanical Ventilator 11/27/19 00:00 98.1 97 20 152/68 (96) 99 11/26/19 23:30 91 11/26/19 23:00 87 17 139/65 (89) 99 11/26/19 22:56 82 14 45 11/26/19 22:00 79 16 135/79 (97) 97 11/26/19 21:40 83 16 117/53 (74) 94 11/26/19 21:00 73 87/55 11/26/19 21:00 73 16 87/55 (66) 98 11/26/19 20:00 45 11/26/19 20:00 99.9 84 16 114/48 (70) 98 11/26/19 20:00 Mechanical Ventilator Mechanical Ventilator Mechanical Ventilator 11/26/19 19:49 114/48 11/26/19 19:43 90 17 45 11/26/19 19:20 78 11/26/19 19:00 79 17 117/61 (79) 96 11/26/19 18:00 100.2 74 16 105/50 (68) 93 11/26/19 17:00 94 20 152/70 (97) 99 11/26/19 16:05 92 11/26/19 16:05 Mechanical Ventilator Mechanical Ventilator Mechanical Ventilator 11/26/19 16:03 45 11/26/19 15:45 105 21 143/75 (97) 100 11/26/19 15:25 94 21 45 I&O Intake and Output 11/26/19 11/27/19 19:00 07:00 Intake Total 1043.708 ml 930.0000 ml Output Total 540 ml 1380 ml Balance 503.708 ml -450.0000 ml Free Water 150 ml IV Total 293.708 ml 330.0000 ml Tube Feeding 600 ml 600 ml Output Urine Total 540 ml 1380 ml # Bowel Movements 2 4 Dressing: dry Cardiovascular: RSR Respiratory: clear, decreased breath sounds Abdomen: soft, non-tender, present bowel sounds Extremities: edema, no cyanosis Laboratory Tests Test 11/26/19 17:00 11/26/19 17:58 11/26/19 23:17 11/27/19 04:00 Stool Occult Blood Positive (NEGATIVE) POC Whole Blood Glucose Pending Pending White Blood Count 11.6 K/UL (4.8-10.8) H Red Blood Count 3.82 M/UL (4.20-5.40) L Hemoglobin 10.0 G/DL (12.0-16.0) L Hematocrit 34.5 % (37.0-47.0) L Mean Corpuscular Volume 90 FL (80-99) Mean Corpuscular Hemoglobin 26.3 PG (27.0-31.0) L Mean Corpuscular Hemoglobin Concent 29.1 G/DL (32.0-36.0) L Red Cell Distribution Width 18.1 % (11.6-14.8) H Platelet Count 196 K/UL (150-450) Mean Platelet Volume 6.5 FL (6.5-10.1) Neutrophils (%) (Auto) % (45.0-75.0) Lymphocytes (%) (Auto) % (20.0-45.0) Monocytes (%) (Auto) % (1.0-10.0) Eosinophils (%) (Auto) % (0.0-3.0) Basophils (%) (Auto) % (0.0-2.0) Differential Total Cells Counted 100 Neutrophils % (Manual) 92 % (45-75) H Lymphocytes % (Manual) 6 % (20-45) L Monocytes % (Manual) 2 % (1-10) Eosinophils % (Manual) 0 % (0-3) Basophils % (Manual) 0 % (0-2) Band Neutrophils 0 % (0-8) Platelet Estimate Adequate Platelet Morphology Normal Hypochromasia 1+ Anisocytosis 2+ Sodium Level 153 MMOL/L (136-145) H Potassium Level 3.4 MMOL/L (3.5-5.1) L Chloride Level 113 MMOL/L (98-107) H Carbon Dioxide Level 36 MMOL/L (21-32) H Anion Gap 4 mmol/L (5-15) L Blood Urea Nitrogen 39 mg/dL (7-18) H Creatinine 1.1 MG/DL (0.55-1.30) Estimat Glomerular Filtration Rate 51.9 mL/min (>60) Glucose Level 192 MG/DL (74-106) H Calcium Level 8.3 MG/DL (8.5-10.1) L Test 11/27/19 04:44 11/27/19 09:37 POC Whole Blood Glucose Pending Pending Plan Problems: (1) Weak (2) UTI (urinary tract infection) (3) Hypoxia (4) Epistaxis Assessment & Plan: Severe after taxis left nostril Rhino Rocket placed hemostasis noted over the course 24 hours hemoglobin stable Lovenox been stopped. The balloon of both ports of the Rhino Rocket were deflated today. The rocket itself was not removed and will monitor over the course next 24 hours hemostasis. If so will gently remove and plan for local monitoring. Currently wean ventilator as tolerated. Goals of extubation when possible. deflated balloon 11/08 removed trumpet 11/09 will monitor for bleeding wean vent plan extubation discussed with pulm (5) Fluid overload Assessment & Plan: Continue central venous catheter for now. Will anticipate removal once patient stable for extubation. Thank you for allowing me to participate patient's care picc in line out (6) Diabetes (7) CHF (congestive heart failure) (8) Afib (9) Multifocal pneumonia (10) 2019 novel coronavirus disease (COVID-19) Assessment & Plan: + wean vent extubated failed reintubated consider trach plan trach 8/ s/p trach comfortable (11) Respiratory failure Ortiz Fleming Nov 27, 2019 15:03
[2019-11-27] MEDS: DOPamine 400mg/250ml 250 ML IV SCH (17:21)
[2019-11-27] MEDS: Norepinephrine 4mg/NS Premix 250 ML IV SCH (19:04)
[2019-11-27] MEDS ORDERED: NS 500ML ONE (19:18)
[2019-11-27] MEDS ORDERED: Tubing IV Secondary IV ONE (19:18)
[2019-11-27] MEDS ORDERED: NS 275ml ONE (19:18)
[2019-11-27] MEDS ORDERED: Sterile Water Irrig 1000ml IRRIG ONE (19:18)
[2019-11-27] MEDS: Dyna-Hex 2% Top Sol 2oz TOPIC SCH (20:01)
[2019-11-28] VITALS (24 sets, daily range): BP systolic 89–156; BP diastolic 39–90
[2019-11-28] MEDS: NovoLOG Insulin Flexpen SUBQ SCH ×4 (05:26→23:18)
[2019-11-28 05:40] LABS: HEMATOCRIT 34.2 % (37.0-47.0); MEAN CORPUSCULAR VOLUME 90 FL (80-99); PLATELET COUNT 196 K/UL (150-450); RED BLOOD COUNT 3.82 M/UL (4.20-5.40); RED CELL DISTRIBUTION WIDTH 17.6 % (11.6-14.8); WHITE BLOOD COUNT 10.6 K/UL (4.8-10.8)
[2019-11-28 05:53] LABS: ANION GAP 1 mmol/L (5-15); BLOOD UREA NITROGEN 26 mg/dL (7-18); CALCIUM 8.4 MG/DL (8.5-10.1); CARBON DIOXIDE 37 MMOL/L (21-32); CHLORIDE 112 MMOL/L (98-107); CREATININE 0.8 MG/DL (0.55-1.30); POTASSIUM 3.7 MMOL/L (3.5-5.1); SODIUM 150 MMOL/L (136-145)
[2019-11-28] MEDS: Acetaminophen 650mg/20.3ml GT PRN (06:24)
--- NOTE | 2019-11-28 08:28 | General Progress Note ---
Assessment/Plan Problem List: (1) Respiratory failure ICD Codes: J96.90 - Respiratory failure, unspecified, unspecified whether with hypoxia or hypercapnia SNOMED: 161444856 (2) 2019 novel coronavirus disease (COVID-19) ICD Codes: U07.1 - COVID-19 SNOMED: 436974287 (3) Multifocal pneumonia ICD Codes: J18.9 - Pneumonia, unspecified organism SNOMED: 732172311 (4) Afib ICD Codes: I48.91 - Unspecified atrial fibrillation SNOMED: 73192316 (5) CHF (congestive heart failure) ICD Codes: I50.9 - Heart failure, unspecified SNOMED: 70085898 (6) Diabetes ICD Codes: E11.9 - Type 2 diabetes mellitus without complications SNOMED: 75784532 (7) Fluid overload ICD Codes: E87.70 - Fluid overload, unspecified SNOMED: 81516787 (8) Epistaxis ICD Codes: R04.0 - Epistaxis SNOMED: 267419216 Status: unchanged Assessment/Plan: fu H&H prn blood transfusion GTF on colace icu care will fu Subjective ROS Limited/Unobtainable: No Allergies: Coded Allergies: No Known Allergies (Unverified , 11/06/19) Objective Last 24 Hour Vital Signs Date Time Temp Pulse Resp B/P (MAP) Pulse Ox O2 Delivery O2 Flow Rate FiO2 11/28/19 07:52 99 20 45 11/28/19 07:00 100.8 113 19 155/85 (108) 99 11/28/19 06:54 100.8 11/28/19 06:00 112 21 140/67 (91) 100 11/28/19 05:00 111 20 156/90 (112) 98 11/28/19 04:00 45 11/28/19 04:00 Mechanical Ventilator Mechanical Ventilator Mechanical Ventilator 11/28/19 04:00 107 11/28/19 04:00 107 20 141/78 (99) 96 11/28/19 03:03 104 20 45 11/28/19 03:00 112 21 144/79 (100) 11/28/19 02:00 100.3 104 17 120/75 (90) 97 11/28/19 01:00 109 17 134/75 (94) 100 11/28/19 00:00 114 17 138/64 (88) 100 11/28/19 00:00 Mechanical Ventilator Mechanical Ventilator Mechanical Ventilator 11/27/19 23:08 100 16 45 11/27/19 23:00 99 15 126/66 (86) 98 11/27/19 22:00 96 17 155/87 (109) 99 11/27/19 21:00 94 17 137/75 (95) 99 11/27/19 20:18 80 117/54 11/27/19 20:00 Mechanical Ventilator Mechanical Ventilator Mechanical Ventilator 11/27/19 20:00 45 11/27/19 20:00 80 11/27/19 20:00 80 16 117/54 (75) 100 11/27/19 19:03 80 15 45 11/27/19 19:00 78 15 94/37 (56) 96 11/27/19 18:00 83 15 120/61 (80) 99 11/27/19 17:00 84 16 137/57 (83) 95 11/27/19 16:00 Mechanical Ventilator Mechanical Ventilator Mechanical Ventilator 11/27/19 16:00 98.6 79 18 139/57 (84) 95 11/27/19 16:00 78 11/27/19 16:00 45 11/27/19 15:00 74 14 108/56 (73) 96 11/27/19 15:00 73 14 45 11/27/19 14:00 75 12 102/52 (69) 95 11/27/19 13:00 74 14 93/53 (66) 93 11/27/19 12:00 70 11/27/19 12:00 Mechanical Ventilator Mechanical Ventilator Mechanical Ventilator 11/27/19 12:00 45 11/27/19 12:00 97.7 73 15 123/61 (81) 92 11/27/19 11:00 72 16 113/57 (75) 94 11/27/19 10:40 72 18 45 11/27/19 10:00 74 16 110/47 (68) 93 11/27/19 09:29 80 108/54 11/27/19 09:00 80 16 108/54 (72) 97 Intake and Output 11/27/19 11/28/19 19:00 07:00 Intake Total 1435 ml 630 ml Output Total 795 ml 630 ml Balance 640 ml 0 ml Free Water 100 ml 30 ml IV Total 735 ml Tube Feeding 600 ml 600 ml Output Urine Total 795 ml 630 ml # Bowel Movements 3 1 Laboratory Tests 11/27/19 09:37: POC Whole Blood Glucose [Pending] 11/27/19 12:46: POC Whole Blood Glucose [Pending] 11/27/19 17:56: POC Whole Blood Glucose [Pending] 11/28/19 05:15: White Blood Count 10.6, Red Blood Count 3.82L, Hemoglobin 10.0L, Hematocrit 34.2L, Mean Corpuscular Volume 90, Mean Corpuscular Hemoglobin 26.3L, Mean Corpuscular Hemoglobin Concent 29.3L, Red Cell Distribution Width 17.6H, Platelet Count 196, Mean Platelet Volume 6.6, Neutrophils (%) (Auto) , Lymphocytes (%) (Auto) , Monocytes (%) (Auto) , Eosinophils (%) (Auto) , Basophils (%) (Auto) , Neutrophils % (Manual) [Pending], Lymphocytes % (Manual) [Pending], Platelet Estimate [Pending], Platelet Morphology [Pending], Sodium Level 150H, Potassium Level 3.7, Chloride Level 112H, Carbon Dioxide Level 37H, Anion Gap 1L, Blood Urea Nitrogen 26H, Creatinine 0.8, Estimat Glomerular Filtration Rate > 60, Glucose Level 185H, Calcium Level 8.4L Height (Feet): 5 Height (Inches): 1.00 Weight (Pounds): 303 General Appearance: lethargic EENT: normal ENT inspection Neck: supple Cardiovascular: tachycardia Respiratory/Chest: decreased breath sounds Abdomen: soft, hypoactive bowel sounds Extremities: non-tender Case Patel MD Nov 28, 2019 08:28
[2019-11-28] MEDS: Amiodarone 200mg tab GT SCH (08:59)
[2019-11-28] MEDS: Docusate 100mg/10ml Liq GT SCH ×2 (09:00→21:00)
--- NOTE | 2019-11-28 09:10 | Nephrology Progress Note ---
Assessment/Plan Problem List: (1) Electrolyte imbalance (2) Diabetes (3) 2019 novel coronavirus disease (COVID-19) (4) Respiratory failure Assessment 1. COVID-19 pneumonia. 2. Diabetes and hyperglycemia 3. Hypertension. 4. Hypoxic respiratory failure 5. Morbid obesity with BMI of 65.5 6. Nasal bleeding 7. Lactic acidosis 8. Hyperkalemia Plan November 27: Lab reviewed. Serum sodium improved. Will start low-dose Zaroxolyn. Change IV Pepcid to GT route. Remains full code. Monitor renal parameters and electrolytes. November 26: Lab reviewed. Serum sodium elevated. 500 cc D5W bolus given. Potassium supplement given. Patient remains full code. Continue per consultants. November 25: Lab reviewed. Patient has trach connected to vent. Patient also has PEG. Continue per consultants. Medication list reviewed. November 24: Lab reviewed. Potassium IV given. Has tracheostomy to vent. Has PEG. Continue per consultants. November 23: Labs reviewed. Creatinine higher to 1.4. Due for trach today. Suggest to stop IV Lasix. November 22: Renal parameters stable. Medication list reviewed. Continue same management per consultants. November 21: Renal parameters stable. On IV Lasix. Edematous. Will order few doses of albumin 25%. Continue per consultants. November 20: Repeat serum potassium again normal. Renal parameters normal. Continue per consultants. November 19: Repeat serum potassium normal. Renal parameters within normal limit. Continue per consultants. November 18: Levemir stopped since IV fluid and dexamethasone are discontinued and patient blood sugar went down. Renal parameters are stable. Continues to be on ventilator. Previously: Renal parameters stable Weaning is being attempted patient's urine output is low. We will give a trial of albumin and Lasix, As needed Discussed with RN Stop IV to D5W 75 cc an hour Levemir 20 units subcu every 12 hours Kayexalate for high potassium as needed Monitor electrolytes and renal parameters Tight blood sugar control, long-acting insulin as needed Keep the blood pressure in check Per orders Subjective ROS Limited/Unobtainable: Yes Objective Objective Last 24 Hour Vital Signs Date Time Temp Pulse Resp B/P (MAP) Pulse Ox O2 Delivery O2 Flow Rate FiO2 11/28/19 07:52 99 20 45 11/28/19 07:00 100.8 113 19 155/85 (108) 99 11/28/19 06:54 100.8 11/28/19 06:00 112 21 140/67 (91) 100 11/28/19 05:00 111 20 156/90 (112) 98 11/28/19 04:00 45 11/28/19 04:00 Mechanical Ventilator Mechanical Ventilator Mechanical Ventilator 11/28/19 04:00 107 11/28/19 04:00 107 20 141/78 (99) 96 11/28/19 03:03 104 20 45 11/28/19 03:00 112 21 144/79 (100) 11/28/19 02:00 100.3 104 17 120/75 (90) 97 11/28/19 01:00 109 17 134/75 (94) 100 11/28/19 00:00 114 17 138/64 (88) 100 11/28/19 00:00 Mechanical Ventilator Mechanical Ventilator Mechanical Ventilator 11/27/19 23:08 100 16 45 11/27/19 23:00 99 15 126/66 (86) 98 11/27/19 22:00 96 17 155/87 (109) 99 11/27/19 21:00 94 17 137/75 (95) 99 11/27/19 20:18 80 117/54 11/27/19 20:00 Mechanical Ventilator Mechanical Ventilator Mechanical Ventilator 11/27/19 20:00 45 11/27/19 20:00 80 11/27/19 20:00 80 16 117/54 (75) 100 11/27/19 19:03 80 15 45 11/27/19 19:00 78 15 94/37 (56) 96 11/27/19 18:00 83 15 120/61 (80) 99 11/27/19 17:00 84 16 137/57 (83) 95 11/27/19 16:00 Mechanical Ventilator Mechanical Ventilator Mechanical Ventilator 11/27/19 16:00 98.6 79 18 139/57 (84) 95 11/27/19 16:00 78 11/27/19 16:00 45 11/27/19 15:00 74 14 108/56 (73) 96 11/27/19 15:00 73 14 45 11/27/19 14:00 75 12 102/52 (69) 95 11/27/19 13:00 74 14 93/53 (66) 93 11/27/19 12:00 70 8/7/20 12:00 Mechanical Ventilator Mechanical Ventilator Mechanical Ventilator 11/27/19 12:00 45 11/27/19 12:00 97.7 73 15 123/61 (81) 92 11/27/19 11:00 72 16 113/57 (75) 94 11/27/19 10:40 72 18 45 11/27/19 10:00 74 16 110/47 (68) 93 11/27/19 09:29 80 108/54 Intake and Output 11/27/19 11/28/19 19:00 07:00 Intake Total 1435 ml 630 ml Output Total 795 ml 630 ml Balance 640 ml 0 ml Free Water 100 ml 30 ml IV Total 735 ml Tube Feeding 600 ml 600 ml Output Urine Total 795 ml 630 ml # Bowel Movements 3 1 Laboratory Tests 11/27/19 09:37: POC Whole Blood Glucose [Pending] 11/27/19 12:46: POC Whole Blood Glucose [Pending] 11/27/19 17:56: POC Whole Blood Glucose [Pending] 11/28/19 05:15: White Blood Count 10.6, Red Blood Count 3.82L, Hemoglobin 10.0L, Hematocrit 34.2L, Mean Corpuscular Volume 90, Mean Corpuscular Hemoglobin 26.3L, Mean Corpuscular Hemoglobin Concent 29.3L, Red Cell Distribution Width 17.6H, Platelet Count 196, Mean Platelet Volume 6.6, Neutrophils (%) (Auto) , Lymphocytes (%) (Auto) , Monocytes (%) (Auto) , Eosinophils (%) (Auto) , Basophils (%) (Auto) , Differential Total Cells Counted 100, Neutrophils % ( Manual) 91H, Lymphocytes % (Manual) 5L, Monocytes % (Manual) 4, Eosinophils % ( Manual) 0, Basophils % (Manual) 0, Band Neutrophils 0, Platelet Estimate Adequate, Platelet Morphology Normal, Hypochromasia 1+, Anisocytosis 1+, Sodium Level 150H, Potassium Level 3.7, Chloride Level 112H, Carbon Dioxide Level 37H, Anion Gap 1L, Blood Urea Nitrogen 26H, Creatinine 0.8, Estimat Glomerular Filtration Rate > 60, Glucose Level 185H, Calcium Level 8.4L Height (Feet): 5 Height (Inches): 1.00 Weight (Pounds): 303 General Appearance: no apparent distress EENT: other Cardiovascular: tachycardia - Trach and vent Respiratory/Chest: decreased breath sounds Abdomen: distended Extremities: severe edema Papa Young MD Nov 28, 2019 09:10
[2019-11-28] MEDS: Levemir Flexpen SUBQ SCH ×2 (09:50→18:00)
--- NOTE | 2019-11-28 09:58 | General Progress Note ---
Assessment/Plan Problem List: (1) Afib ICD Codes: I48.91 - Unspecified atrial fibrillation SNOMED: 88821718 (2) Epistaxis ICD Codes: R04.0 - Epistaxis SNOMED: 033301073 (3) Weak ICD Codes: R53.1 - Weakness SNOMED: 22184693 (4) UTI (urinary tract infection) ICD Codes: N39.0 - Urinary tract infection, site not specified SNOMED: 85287335 (5) Diabetes ICD Codes: E11.9 - Type 2 diabetes mellitus without complications SNOMED: 13715073 (6) CHF (congestive heart failure) ICD Codes: I50.9 - Heart failure, unspecified SNOMED: 35416447 (7) Multifocal pneumonia ICD Codes: J18.9 - Pneumonia, unspecified organism SNOMED: 972322083 (8) 2019 novel coronavirus disease (COVID-19) ICD Codes: U07.1 - COVID-19 SNOMED: 451186805 (9) Respiratory failure ICD Codes: J96.90 - Respiratory failure, unspecified, unspecified whether with hypoxia or hypercapnia SNOMED: 907833640 Status: unchanged Assessment/Plan: vent abx bp bs control cbc bmp am Subjective Constitutional: Reports: weakness Allergies: Coded Allergies: No Known Allergies (Unverified , 11/06/19) All Systems: reviewed and negative except above Subjective trach vent in icu Objective Last 24 Hour Vital Signs Date Time Temp Pulse Resp B/P (MAP) Pulse Ox O2 Delivery O2 Flow Rate FiO2 11/28/19 09:00 105 120/65 11/28/19 07:52 99 20 45 11/28/19 07:00 100.8 113 19 155/85 (108) 99 11/28/19 06:54 100.8 11/28/19 06:00 112 21 140/67 (91) 100 11/28/19 05:00 111 20 156/90 (112) 98 11/28/19 04:00 45 11/28/19 04:00 Mechanical Ventilator Mechanical Ventilator Mechanical Ventilator 11/28/19 04:00 107 11/28/19 04:00 107 20 141/78 (99) 96 11/28/19 03:03 104 20 45 11/28/19 03:00 112 21 144/79 (100) 11/28/19 02:00 100.3 104 17 120/75 (90) 97 8/8/20 01:00 109 17 134/75 (94) 100 11/28/19 00:00 114 17 138/64 (88) 100 11/28/19 00:00 Mechanical Ventilator Mechanical Ventilator Mechanical Ventilator 11/27/19 23:08 100 16 45 11/27/19 23:00 99 15 126/66 (86) 98 11/27/19 22:00 96 17 155/87 (109) 99 11/27/19 21:00 94 17 137/75 (95) 99 11/27/19 20:18 80 117/54 11/27/19 20:00 Mechanical Ventilator Mechanical Ventilator Mechanical Ventilator 11/27/19 20:00 45 11/27/19 20:00 80 11/27/19 20:00 80 16 117/54 (75) 100 11/27/19 19:03 80 15 45 11/27/19 19:00 78 15 94/37 (56) 96 11/27/19 18:00 83 15 120/61 (80) 99 11/27/19 17:00 84 16 137/57 (83) 95 11/27/19 16:00 Mechanical Ventilator Mechanical Ventilator Mechanical Ventilator 11/27/19 16:00 98.6 79 18 139/57 (84) 95 11/27/19 16:00 78 11/27/19 16:00 45 11/27/19 15:00 74 14 108/56 (73) 96 11/27/19 15:00 73 14 45 11/27/19 14:00 75 12 102/52 (69) 95 11/27/19 13:00 74 14 93/53 (66) 93 11/27/19 12:00 70 11/27/19 12:00 Mechanical Ventilator Mechanical Ventilator Mechanical Ventilator 11/27/19 12:00 45 11/27/19 12:00 97.7 73 15 123/61 (81) 92 11/27/19 11:00 72 16 113/57 (75) 94 11/27/19 10:40 72 18 45 11/27/19 10:00 74 16 110/47 (68) 93 Intake and Output 11/27/19 11/28/19 19:00 07:00 Intake Total 1435 ml 630 ml Output Total 795 ml 630 ml Balance 640 ml 0 ml Free Water 100 ml 30 ml IV Total 735 ml Tube Feeding 600 ml 600 ml Output Urine Total 795 ml 630 ml # Bowel Movements 3 1 Laboratory Tests 11/27/19 12:46: POC Whole Blood Glucose [Pending] 11/27/19 17:56: POC Whole Blood Glucose [Pending] 11/28/19 05:15: White Blood Count 10.6, Red Blood Count 3.82L, Hemoglobin 10.0L, Hematocrit 34.2L, Mean Corpuscular Volume 90, Mean Corpuscular Hemoglobin 26.3L, Mean Corpuscular Hemoglobin Concent 29.3L, Red Cell Distribution Width 17.6H, Platelet Count 196, Mean Platelet Volume 6.6, Neutrophils (%) (Auto) , Lymphocytes (%) (Auto) , Monocytes (%) (Auto) , Eosinophils (%) (Auto) , Basophils (%) (Auto) , Differential Total Cells Counted 100, Neutrophils % ( Manual) 91H, Lymphocytes % (Manual) 5L, Monocytes % (Manual) 4, Eosinophils % ( Manual) 0, Basophils % (Manual) 0, Band Neutrophils 0, Platelet Estimate Adequate, Platelet Morphology Normal, Hypochromasia 1+, Anisocytosis 1+, Sodium Level 150H, Potassium Level 3.7, Chloride Level 112H, Carbon Dioxide Level 37H, Anion Gap 1L, Blood Urea Nitrogen 26H, Creatinine 0.8, Estimat Glomerular Filtration Rate > 60, Glucose Level 185H, Calcium Level 8.4L 11/28/19 09:45: Arterial Blood pH 7.493H, Arterial Blood Partial Pressure CO2 47.5H, Arterial Blood Partial Pressure O2 100.7H, Arterial Blood HCO3 35.6H, Arterial Blood Oxygen Saturation 97.5, Arterial Blood Base Excess 11.0*H, Steve Test Positive Height (Feet): 5 Height (Inches): 1.00 Weight (Pounds): 303 General Appearance: lethargic EENT: normal ENT inspection Neck: normal alignment Cardiovascular: normal rate, regular rhythm Respiratory/Chest: no respiratory distress, no accessory muscle use Extremities: swelling Skin: normal pigmentation Gustabo Carter DO Nov 28, 2019 09:58
[2019-11-28] MEDS: metOLazone 2.5 MG TAB GT SCH (10:48)
--- NOTE | 2019-11-28 10:49 | Surgery Progress Note ---
Surgery Progress Note Subjective Procedure Performed tracheostomy Additional Comments no acute events Objective Last 24 Hour Vital Signs Date Time Temp Pulse Resp B/P (MAP) Pulse Ox O2 Delivery O2 Flow Rate FiO2 11/28/19 10:00 99.2 94 17 105/61 (76) 11/28/19 09:00 101.0 105 19 120/65 (83) 95 11/28/19 09:00 105 120/65 11/28/19 08:00 100.8 106 19 123/64 (83) 97 11/28/19 07:52 99 20 45 11/28/19 07:00 100.8 113 19 155/85 (108) 99 11/28/19 06:54 100.8 11/28/19 06:00 112 21 140/67 (91) 100 11/28/19 05:00 111 20 156/90 (112) 98 11/28/19 04:00 45 11/28/19 04:00 Mechanical Ventilator Mechanical Ventilator Mechanical Ventilator 11/28/19 04:00 107 11/28/19 04:00 107 20 141/78 (99) 96 11/28/19 03:03 104 20 45 11/28/19 03:00 112 21 144/79 (100) 11/28/19 02:00 100.3 104 17 120/75 (90) 97 11/28/19 01:00 109 17 134/75 (94) 100 11/28/19 00:00 114 17 138/64 (88) 100 11/28/19 00:00 Mechanical Ventilator Mechanical Ventilator Mechanical Ventilator 11/27/19 23:08 100 16 45 11/27/19 23:00 99 15 126/66 (86) 98 11/27/19 22:00 96 17 155/87 (109) 99 11/27/19 21:00 94 17 137/75 (95) 99 11/27/19 20:18 80 117/54 11/27/19 20:00 Mechanical Ventilator Mechanical Ventilator Mechanical Ventilator 11/27/19 20:00 45 11/27/19 20:00 80 11/27/19 20:00 80 16 117/54 (75) 100 11/27/19 19:03 80 15 45 11/27/19 19:00 78 15 94/37 (56) 96 11/27/19 18:00 83 15 120/61 (80) 99 11/27/19 17:00 84 16 137/57 (83) 95 11/27/19 16:00 Mechanical Ventilator Mechanical Ventilator Mechanical Ventilator 11/27/19 16:00 98.6 79 18 139/57 (84) 95 11/27/19 16:00 78 11/27/19 16:00 45 11/27/19 15:00 74 14 108/56 (73) 96 11/27/19 15:00 73 14 45 11/27/19 14:00 75 12 102/52 (69) 95 11/27/19 13:00 74 14 93/53 (66) 93 11/27/19 12:00 70 11/27/19 12:00 Mechanical Ventilator Mechanical Ventilator Mechanical Ventilator 11/27/19 12:00 45 11/27/19 12:00 97.7 73 15 123/61 (81) 92 11/27/19 11:00 72 16 113/57 (75) 94 I&O Intake and Output 11/27/19 11/28/19 19:00 07:00 Intake Total 1435 ml 630 ml Output Total 795 ml 630 ml Balance 640 ml 0 ml Free Water 100 ml 30 ml IV Total 735 ml Tube Feeding 600 ml 600 ml Output Urine Total 795 ml 630 ml # Bowel Movements 3 1 Dressing: dry Wound: clean Cardiovascular: RSR Respiratory: decreased breath sounds Abdomen: soft, non-tender, present bowel sounds Extremities: edema, no tenderness, no cyanosis Laboratory Tests Test 11/27/19 12:46 11/27/19 17:56 11/28/19 05:15 11/28/19 09:45 POC Whole Blood Glucose Pending Pending White Blood Count 10.6 K/UL (4.8-10.8) Red Blood Count 3.82 M/UL (4.20-5.40) L Hemoglobin 10.0 G/DL (12.0-16.0) L Hematocrit 34.2 % (37.0-47.0) L Mean Corpuscular Volume 90 FL (80-99) Mean Corpuscular Hemoglobin 26.3 PG (27.0-31.0) L Mean Corpuscular Hemoglobin Concent 29.3 G/DL (32.0-36.0) L Red Cell Distribution Width 17.6 % (11.6-14.8) H Platelet Count 196 K/UL (150-450) Mean Platelet Volume 6.6 FL (6.5-10.1) Neutrophils (%) (Auto) % (45.0-75.0) Lymphocytes (%) (Auto) % (20.0-45.0) Monocytes (%) (Auto) % (1.0-10.0) Eosinophils (%) (Auto) % (0.0-3.0) Basophils (%) (Auto) % (0.0-2.0) Differential Total Cells Counted 100 Neutrophils % (Manual) 91 % (45-75) H Lymphocytes % (Manual) 5 % (20-45) L Monocytes % (Manual) 4 % (1-10) Eosinophils % (Manual) 0 % (0-3) Basophils % (Manual) 0 % (0-2) Band Neutrophils 0 % (0-8) Platelet Estimate Adequate Platelet Morphology Normal Hypochromasia 1+ Anisocytosis 1+ Sodium Level 150 MMOL/L (136-145) H Potassium Level 3.7 MMOL/L (3.5-5.1) Chloride Level 112 MMOL/L (98-107) H Carbon Dioxide Level 37 MMOL/L (21-32) H Anion Gap 1 mmol/L (5-15) L Blood Urea Nitrogen 26 mg/dL (7-18) H Creatinine 0.8 MG/DL (0.55-1.30) Estimat Glomerular Filtration Rate > 60 mL/min (>60) Glucose Level 185 MG/DL (74-106) H Calcium Level 8.4 MG/DL (8.5-10.1) L Arterial Blood pH 7.493 (7.350-7.450) Arterial Blood Partial Pressure CO2 47.5 mmHg (35.0-45.0) H Arterial Blood Partial Pressure O2 100.7 mmHg (75.0-100.0) H Arterial Blood HCO3 35.6 mmol/L (22.0-26.0) H Arterial Blood Oxygen Saturation 97.5 % (95-100) Arterial Blood Base Excess 11.0 (-2-2) *H Steve Test Positive Plan Problems: (1) Weak (2) UTI (urinary tract infection) (3) Hypoxia (4) Epistaxis Assessment & Plan: Severe after taxis left nostril Rhino Rocket placed hemostasis noted over the course 24 hours hemoglobin stable Lovenox been stopped. The balloon of both ports of the Rhino Rocket were deflated today. The rocket itself was not removed and will monitor over the course next 24 hours hemostasis. If so will gently remove and plan for local monitoring. Currently wean ventilator as tolerated. Goals of extubation when possible. deflated balloon 11/08 removed trumpet 11/09 will monitor for bleeding wean vent plan extubation discussed with pulm (5) Fluid overload Assessment & Plan: Continue central venous catheter for now. Will anticipate removal once patient stable for extubation. Thank you for allowing me to participate patient's care picc in line out (6) Diabetes (7) CHF (congestive heart failure) (8) Afib (9) Multifocal pneumonia (10) 2019 novel coronavirus disease (COVID-19) Assessment & Plan: + wean vent extubated failed reintubated consider trach plan trach / s/p trach comfortable (11) Respiratory failure Ortiz Fleming Nov 28, 2019 10:49
--- NOTE | 2019-11-28 11:09 | Diagnostic Imaging Report ---
EXAM: XR Chest, 1 View CLINICAL HISTORY: F/U TECHNIQUE: Frontal view of the chest. COMPARISON: Chest radiograph on 11/24/2019. FINDINGS: Hardware: Tracheostomy tube terminates in the region of the upper thoracic trachea. Interval removal of the enteric tube. Lungs/pleura: Similar patchy opacities throughout the lungs, most prominent in the right upper lung. Stable elevation of the right hemidiaphragm. Heart/mediastinum: Stable enlargement of the cardiomediastinal silhouette. Atherosclerotic calcifications of the aorta. Soft tissues: Unremarkable. Bones: No acute fracture. Changes of the spine. Upper abdomen: Normal. IMPRESSION: 1. Similar patchy opacities throughout the lungs, most prominent in the right upper lung. 2. Tracheostomy tube terminates in the region of the upper thoracic trachea. Interval removal of the enteric tube.
--- NOTE | 2019-11-28 11:53 | Pulmonology Progress Note ---
Subjective ROS Limited/Unobtainable: Yes Interval Events: Re-intubated on 11/19/19; Status post tracheostomy 11/24/2019 Constitutional: Reports: fever, other - low grade in am HEENT: Repors: no symptoms Respiratory: Reports: dry cough, shortness of breath Cardiovascular: Reports: no symptoms Gastrointestinal/Abdominal: Reports: no symptoms Allergies: Coded Allergies: No Known Allergies (Unverified , 11/06/19) All Systems: reviewed and negative except above Objective Last 24 Hour Vital Signs Date Time Temp Pulse Resp B/P (MAP) Pulse Ox O2 Delivery O2 Flow Rate FiO2 11/28/19 11:00 92 19 131/56 (81) 100 11/28/19 11:00 40 11/28/19 10:59 88 17 40 11/28/19 10:00 99.2 94 17 105/61 (76) 11/28/19 09:00 101.0 105 19 120/65 (83) 95 11/28/19 09:00 105 120/65 11/28/19 08:00 100.8 106 19 123/64 (83) 97 11/28/19 08:00 Mechanical Ventilator Mechanical Ventilator Mechanical Ventilator 11/28/19 08:00 45 11/28/19 07:52 99 20 45 11/28/19 07:00 100.8 113 19 155/85 (108) 99 11/28/19 06:54 100.8 11/28/19 06:00 112 21 140/67 (91) 100 11/28/19 05:00 111 20 156/90 (112) 98 11/28/19 04:00 45 11/28/19 04:00 Mechanical Ventilator Mechanical Ventilator Mechanical Ventilator 11/28/19 04:00 107 11/28/19 04:00 107 20 141/78 (99) 96 11/28/19 03:03 104 20 45 11/28/19 03:00 112 21 144/79 (100) 11/28/19 02:00 100.3 104 17 120/75 (90) 97 11/28/19 01:00 109 17 134/75 (94) 100 11/28/19 00:00 114 17 138/64 (88) 100 11/28/19 00:00 Mechanical Ventilator Mechanical Ventilator Mechanical Ventilator 11/27/19 23:08 100 16 45 11/27/19 23:00 99 15 126/66 (86) 98 11/27/19 22:00 96 17 155/87 (109) 99 11/27/19 21:00 94 17 137/75 (95) 99 11/27/19 20:18 80 117/54 11/27/19 20:00 Mechanical Ventilator Mechanical Ventilator Mechanical Ventilator 11/27/19 20:00 45 11/27/19 20:00 80 11/27/19 20:00 80 16 117/54 (75) 100 11/27/19 19:03 80 15 45 11/27/19 19:00 78 15 94/37 (56) 96 11/27/19 18:00 83 15 120/61 (80) 99 11/27/19 17:00 84 16 137/57 (83) 95 11/27/19 16:00 Mechanical Ventilator Mechanical Ventilator Mechanical Ventilator 11/27/19 16:00 98.6 79 18 139/57 (84) 95 11/27/19 16:00 78 11/27/19 16:00 45 11/27/19 15:00 74 14 108/56 (73) 96 11/27/19 15:00 73 14 45 11/27/19 14:00 75 12 102/52 (69) 95 11/27/19 13:00 74 14 93/53 (66) 93 11/27/19 12:00 70 11/27/19 12:00 Mechanical Ventilator Mechanical Ventilator Mechanical Ventilator 11/27/19 12:00 45 11/27/19 12:00 97.7 73 15 123/61 (81) 92 Intake and Output 11/27/19 11/28/19 19:00 07:00 Intake Total 1435 ml 630 ml Output Total 795 ml 630 ml Balance 640 ml 0 ml Free Water 100 ml 30 ml IV Total 735 ml Tube Feeding 600 ml 600 ml Output Urine Total 795 ml 630 ml # Bowel Movements 3 1 General Appearance: no acute distress HEENT: normocephalic, status post trach Respiratory: decreased breath sounds Cardiovascular: normal peripheral pulses Abdomen: normal bowel sounds Extremities: no cyanosis Laboratory Tests 11/27/19 12:46: POC Whole Blood Glucose [Pending] 11/27/19 17:56: POC Whole Blood Glucose [Pending] 11/28/19 05:15: White Blood Count 10.6, Red Blood Count 3.82L, Hemoglobin 10.0L, Hematocrit 34.2L, Mean Corpuscular Volume 90, Mean Corpuscular Hemoglobin 26.3L, Mean Corpuscular Hemoglobin Concent 29.3L, Red Cell Distribution Width 17.6H, Platelet Count 196, Mean Platelet Volume 6.6, Neutrophils (%) (Auto) , Lymphocytes (%) (Auto) , Monocytes (%) (Auto) , Eosinophils (%) (Auto) , Basophils (%) (Auto) , Differential Total Cells Counted 100, Neutrophils % ( Manual) 91H, Lymphocytes % (Manual) 5L, Monocytes % (Manual) 4, Eosinophils % ( Manual) 0, Basophils % (Manual) 0, Band Neutrophils 0, Platelet Estimate Adequate, Platelet Morphology Normal, Hypochromasia 1+, Anisocytosis 1+, Sodium Level 150H, Potassium Level 3.7, Chloride Level 112H, Carbon Dioxide Level 37H, Anion Gap 1L, Blood Urea Nitrogen 26H, Creatinine 0.8, Estimat Glomerular Filtration Rate > 60, Glucose Level 185H, Calcium Level 8.4L, Albumin 2.0L 11/28/19 09:45: Arterial Blood pH 7.493H, Arterial Blood Partial Pressure CO2 47.5H, Arterial Blood Partial Pressure O2 100.7H, Arterial Blood HCO3 35.6H, Arterial Blood Oxygen Saturation 97.5, Arterial Blood Base Excess 11.0*H, Steve Test Positive Current Medications Medications (Trade) Dose Ordered Sig/Robyn Route PRN Reason Start Time Stop Time Status Last Admin Dose Admin Acetaminophen (Tylenol) 650 mg Q6H PRN GT Temp >100.5 11/24/19 13:30 12/12/19 00:14 11/28/19 06:24 Amiodarone HCl (Cordarone) 400 mg EVERY 12 HOURS GT 11/24/19 21:00 02/18/20 09:29 11/28/19 08:59 Cefepime HCl 2 gm/ Dextrose 55 ml @ 110 mls/hr Q12H IVPB 11/25/19 12:00 12/02/19 11:59 11/27/19 23:35 Chlorhexidine Gluconate (Miya-Hex 2%) 1 applic DAILY@2000 TOPIC 11/08/19 21:30 02/06/20 21:29 11/27/19 20:01 Clonidine HCl (Catapres Tab) 0.1 mg Q4H PRN GT For High Blood Pressure 11/24/19 13:30 02/09/20 10:59 Dextrose (Dextrose 50%) 25 ml Q30M PRN IV Hypoglycemia 11/23/19 06:45 02/21/20 06:44 Dextrose (Dextrose 50%) 50 ml Q30M PRN IV Hypoglycemia 11/23/19 06:45 02/21/20 06:44 Docusate Sodium (Colace) 100 mg EVERY 12 HOURS GT 11/25/19 09:00 12/23/19 08:59 11/26/19 21:20 Dopamine HCl/ Dextrose 250 ml @ 0 mls/hr Q24H IV 11/19/19 18:36 02/17/20 18:35 11/19/19 18:41 Famotidine (Pepcid) 20 mg BID GT 11/28/19 18:00 02/26/20 17:59 Folic Acid (Folate) 2 mg DAILY GT 11/25/19 09:00 12/15/19 08:59 11/28/19 08:59 Insulin Aspart (NovoLOG) EVERY 6 HOURS SUBQ 11/15/19 12:00 02/11/20 20:59 11/28/19 05:26 Insulin Detemir (Levemir) 12 units BID SUBQ 11/24/19 09:00 02/21/20 08:59 11/28/19 09:50 Lorazepam (Ativan 2mg/ml 1ml) 2 mg Q3H PRN IV For Anxiety 11/26/19 07:45 12/03/19 07:44 11/27/19 06:30 Metolazone (Zaroxolyn) 2.5 mg DAILY GT 11/28/19 09:30 12/28/19 09:29 11/28/19 10:48 Metoprolol Tartrate (Lopressor) 25 mg Q12HR GT 11/24/19 21:00 02/18/20 09:29 11/27/19 09:29 Norepinephrine Bitartrate 250 ml @ 0 mls/hr Q24H IV 11/19/19 19:49 02/17/20 19:48 Assessment/Plan Assessment/Plan IMPRESSION: 1. COVID-19 pneumonia. 2. Diabetes mellitus and hypertension. 3. Lactic acidemia. 4. Epistaxis 5. Respiratory failure; failed extubation 6. Anasarca DISCUSSION: Careful and close monitoring. Continue medications status post tracheostomy Begin weaning; trach collar S/p PEG no longer on Lasix I will follow carefully. Lakeisha Zavaleta Omar Syed MD Nov 28, 2019 11:53
--- NOTE | 2019-11-28 12:13 | Infectious Diseases Prog Note ---
"Assessment/Plan Assessment/Plan antibiotics : cefepime 8..20 - A 1. COVID 19 pneumonia on 40 percent Fi O2, PEEP 5, saturation 100 percent s/p remdesivir s/p ivermectin 7. 2. respiratory failure s/p tracheostomy 3. leucocytosis likely secondary to steroids 4. diabetes mellitus 5. hypertension 6. obesity 7. enterobacter | proteus | staph aureus pneumonia P 1. continue cefepime 3 more days 2. will follow up cultures 3. continue isolation Subjective ROS Limited/Unobtainable: Yes Allergies: Coded Allergies: No Known Allergies (Unverified , 11/06/19) Objective Last 24 Hour Vital Signs Date Time Temp Pulse Resp B/P (MAP) Pulse Ox O2 Delivery O2 Flow Rate FiO2 11/28/19 11:00 92 19 131/56 (81) 100 11/28/19 11:00 40 11/28/19 10:59 88 17 40 11/28/19 10:00 99.2 94 17 105/61 (76) 11/28/19 09:00 101.0 105 19 120/65 (83) 95 11/28/19 09:00 105 120/65 11/28/19 08:00 100.8 106 19 123/64 (83) 97 11/28/19 08:00 Mechanical Ventilator Mechanical Ventilator Mechanical Ventilator 11/28/19 08:00 45 11/28/19 07:52 99 20 45 11/28/19 07:00 100.8 113 19 155/85 (108) 99 11/28/19 06:54 100.8 11/28/19 06:00 112 21 140/67 (91) 100 11/28/19 05:00 111 20 156/90 (112) 98 11/28/19 04:00 45 11/28/19 04:00 Mechanical Ventilator Mechanical Ventilator Mechanical Ventilator 11/28/19 04:00 107 11/28/19 04:00 107 20 141/78 (99) 96 11/28/19 03:03 104 20 45 11/28/19 03:00 112 21 144/79 (100) 11/28/19 02:00 100.3 104 17 120/75 (90) 97 11/28/19 01:00 109 17 134/75 (94) 100 11/28/19 00:00 114 17 138/64 (88) 100 11/28/19 00:00 Mechanical Ventilator Mechanical Ventilator Mechanical Ventilator 11/27/19 23:08 100 16 45 11/27/19 23:00 99 15 126/66 (86) 98 11/27/19 22:00 96 17 155/87 (109) 99 11/27/19 21:00 94 17 137/75 (95) 99 11/27/19 20:18 80 117/54 11/27/19 20:00 Mechanical Ventilator Mechanical Ventilator Mechanical Ventilator 11/27/19 20:00 45 11/27/19 20:00 80 11/27/19 20:00 80 16 117/54 (75) 100 11/27/19 19:03 80 15 45 11/27/19 19:00 78 15 94/37 (56) 96 11/27/19 18:00 83 15 120/61 (80) 99 11/27/19 17:00 84 16 137/57 (83) 95 11/27/19 16:00 Mechanical Ventilator Mechanical Ventilator Mechanical Ventilator 11/27/19 16:00 98.6 79 18 139/57 (84) 95 11/27/19 16:00 78 11/27/19 16:00 45 11/27/19 15:00 74 14 108/56 (73) 96 11/27/19 15:00 73 14 45 11/27/19 14:00 75 12 102/52 (69) 95 11/27/19 13:00 74 14 93/53 (66) 93 Height (Feet): 5 Height (Inches): 1.00 Weight (Pounds): 303 HEENT: status post trach Laboratory Tests Test 11/27/19 12:46 11/27/19 17:56 11/28/19 05:15 11/28/19 09:45 POC Whole Blood Glucose Pending Pending White Blood Count 10.6 K/UL (4.8-10.8) Red Blood Count 3.82 M/UL (4.20-5.40) L Hemoglobin 10.0 G/DL (12.0-16.0) L Hematocrit 34.2 % (37.0-47.0) L Mean Corpuscular Volume 90 FL (80-99) Mean Corpuscular Hemoglobin 26.3 PG (27.0-31.0) L Mean Corpuscular Hemoglobin Concent 29.3 G/DL (32.0-36.0) L Red Cell Distribution Width 17.6 % (11.6-14.8) H Platelet Count 196 K/UL (150-450) Mean Platelet Volume 6.6 FL (6.5-10.1) Neutrophils (%) (Auto) % (45.0-75.0) Lymphocytes (%) (Auto) % (20.0-45.0) Monocytes (%) (Auto) % (1.0-10.0) Eosinophils (%) (Auto) % (0.0-3.0) Basophils (%) (Auto) % (0.0-2.0) Differential Total Cells Counted 100 Neutrophils % (Manual) 91 % (45-75) H Lymphocytes % (Manual) 5 % (20-45) L Monocytes % (Manual) 4 % (1-10) Eosinophils % (Manual) 0 % (0-3) Basophils % (Manual) 0 % (0-2) Band Neutrophils 0 % (0-8) Platelet Estimate Adequate Platelet Morphology Normal Hypochromasia 1+ Anisocytosis 1+ Sodium Level 150 MMOL/L (136-145) H Potassium Level 3.7 MMOL/L (3.5-5.1) Chloride Level 112 MMOL/L (98-107) H Carbon Dioxide Level 37 MMOL/L (21-32) H Anion Gap 1 mmol/L (5-15) L Blood Urea Nitrogen 26 mg/dL (7-18) H Creatinine 0.8 MG/DL (0.55-1.30) Estimat Glomerular Filtration Rate > 60 mL/min (>60) Glucose Level 185 MG/DL (74-106) H Calcium Level 8.4 MG/DL (8.5-10.1) L Albumin 2.0 G/DL (3.4-5.0) L Arterial Blood pH 7.493 (7.350-7.450) Arterial Blood Partial Pressure CO2 47.5 mmHg (35.0-45.0) H Arterial Blood Partial Pressure O2 100.7 mmHg (75.0-100.0) H Arterial Blood HCO3 35.6 mmol/L (22.0-26.0) H Arterial Blood Oxygen Saturation 97.5 % (95-100) Arterial Blood Base Excess 11.0 (-2-2) *H Steve Test Positive Current Medications Medications (Trade) Dose Ordered Sig/Robyn Route PRN Reason Start Time Stop Time Status Last Admin Dose Admin Acetaminophen (Tylenol) 650 mg Q6H PRN GT Temp >100.5 11/24/19 13:30 12/12/19 00:14 11/28/19 06:24 Amiodarone HCl (Cordarone) 400 mg EVERY 12 HOURS GT 11/24/19 21:00 02/18/20 09:29 11/28/19 08:59 Cefepime HCl 2 gm/ Dextrose 55 ml @ 110 mls/hr Q12H IVPB 11/25/19 12:00 12/02/19 11:59 11/27/19 23:35 Chlorhexidine Gluconate (Miya-Hex 2%) 1 applic DAILY@1999 TOPIC 11/08/19 21:30 02/06/20 21:29 11/27/19 20:01 Clonidine HCl (Catapres Tab) 0.1 mg Q4H PRN GT For High Blood Pressure 11/24/19 13:30 02/09/20 10:59 Dextrose (Dextrose 50%) 25 ml Q30M PRN IV Hypoglycemia 11/23/19 06:45 02/21/20 06:44 Dextrose (Dextrose 50%) 50 ml Q30M PRN IV Hypoglycemia 11/23/19 06:45 02/21/20 06:44 Docusate Sodium (Colace) 100 mg EVERY 12 HOURS GT 11/25/19 09:00 12/23/19 08:59 11/26/19 21:20 Dopamine HCl/ Dextrose 250 ml @ 0 mls/hr Q24H IV 11/19/19 18:36 02/17/20 18:35 11/19/19 18:41 Famotidine (Pepcid) 20 mg BID GT 11/28/19 18:00 02/26/20 17:59 Folic Acid (Folate) 2 mg DAILY GT 11/25/19 09:00 12/15/19 08:59 11/28/19 08:59 Insulin Aspart (NovoLOG) EVERY 6 HOURS SUBQ 11/15/19 12:00 02/11/20 20:59 11/28/19 05:26 Insulin Detemir (Levemir) 12 units BID SUBQ 11/24/19 09:00 02/21/20 08:59 11/28/19 09:50 Lorazepam (Ativan 2mg/ml 1ml) 2 mg Q3H PRN IV For Anxiety 11/26/19 07:45 12/03/19 07:44 11/27/19 06:30 Metolazone (Zaroxolyn) 2.5 mg DAILY GT 11/28/19 09:30 12/28/19 09:29 11/28/19 10:48 Metoprolol Tartrate (Lopressor) 25 mg Q12HR GT 11/24/19 21:00 02/18/20 09:29 11/27/19 09:29 Norepinephrine Bitartrate 250 ml @ 0 mls/hr Q24H IV 11/19/19 19:49 02/17/20 19:48 Rosette Bowman MD Nov 28, 2019 12:13"
[2019-11-28] MEDS: Cefepime HCl 2 GM in D5W 55 ML IVPB SCH ×2 (12:16→23:20)
--- NOTE | 2019-11-28 13:45 | Cardiac Electrophysiology PN ---
Assessment/Plan Assessment/Plan 1. Paroxysmal atrial fibrillation. On metoprolol 25 bid and Amiodarone 400 bid Off anticoagulation for hematuria and black stool EF 55% on echo. Decrease Amiodarone to 400 PEG daily 2. S/P Shock. Off pressors. Tolerating Lopressor 25 bid 3. COVID positive pneumonia. 4. Diabetes, on insulin. 5. Respiratory failure on the Vent. S/P Tracheostomy 11/24/19 6. S/P Massive nasal bleed. 7. Severe LE edema. 8. Dysphagia, S/P PEG 11/25/19 [employer] Subjective Subjective In ICU on the vent with 35% Fio2. S/P tracheostomy 11/24/19 and PEG 11/25/19 In atrial fib rate controlled on Lopressor 25 bid. Objective Last 24 Hour Vital Signs Date Time Temp Pulse Resp B/P (MAP) Pulse Ox O2 Delivery O2 Flow Rate FiO2 11/28/19 13:00 99.0 103 19 139/62 (87) 99 11/28/19 12:00 90 11/28/19 12:00 Mechanical Ventilator Mechanical Ventilator Mechanical Ventilator 11/28/19 12:00 99 20 123/82 (96) 99 11/28/19 11:32 90 11/28/19 11:00 92 19 131/56 (81) 100 11/28/19 11:00 40 11/28/19 10:59 88 17 40 11/28/19 10:00 99.2 94 17 105/61 (76) 11/28/19 09:00 101.0 105 19 120/65 (83) 95 11/28/19 09:00 105 120/65 11/28/19 08:00 100.8 106 19 123/64 (83) 97 11/28/19 08:00 Mechanical Ventilator Mechanical Ventilator Mechanical Ventilator 11/28/19 08:00 45 11/28/19 07:52 99 20 45 11/28/19 07:51 107 11/28/19 07:00 100.8 113 19 155/85 (108) 99 11/28/19 06:54 100.8 11/28/19 06:00 112 21 140/67 (91) 100 11/28/19 05:00 111 20 156/90 (112) 98 11/28/19 04:00 45 11/28/19 04:00 Mechanical Ventilator Mechanical Ventilator Mechanical Ventilator 11/28/19 04:00 107 11/28/19 04:00 107 20 141/78 (99) 96 11/28/19 03:03 104 20 45 11/28/19 03:00 112 21 144/79 (100) 11/28/19 02:00 100.3 104 17 120/75 (90) 97 11/28/19 01:00 109 17 134/75 (94) 100 11/28/19 00:00 114 17 138/64 (88) 100 11/28/19 00:00 Mechanical Ventilator Mechanical Ventilator Mechanical Ventilator 11/27/19 23:08 100 16 45 11/27/19 23:00 99 15 126/66 (86) 98 11/27/19 22:00 96 17 155/87 (109) 99 11/27/19 21:00 94 17 137/75 (95) 99 11/27/19 20:18 80 117/54 11/27/19 20:00 Mechanical Ventilator Mechanical Ventilator Mechanical Ventilator 11/27/19 20:00 45 11/27/19 20:00 80 11/27/19 20:00 80 16 117/54 (75) 100 11/27/19 19:03 80 15 45 11/27/19 19:00 78 15 94/37 (56) 96 11/27/19 18:00 83 15 120/61 (80) 99 11/27/19 17:00 84 16 137/57 (83) 95 11/27/19 16:00 Mechanical Ventilator Mechanical Ventilator Mechanical Ventilator 11/27/19 16:00 98.6 79 18 139/57 (84) 95 11/27/19 16:00 78 11/27/19 16:00 45 11/27/19 15:00 74 14 108/56 (73) 96 11/27/19 15:00 73 14 45 11/27/19 14:00 75 12 102/52 (69) 95 Intake and Output 11/27/19 11/28/19 19:00 07:00 Intake Total 1435 ml 630 ml Output Total 795 ml 630 ml Balance 640 ml 0 ml Free Water 100 ml 30 ml IV Total 735 ml Tube Feeding 600 ml 600 ml Output Urine Total 795 ml 630 ml # Bowel Movements 3 1 Laboratory Tests Test 11/27/19 17:56 11/28/19 05:15 11/28/19 09:45 POC Whole Blood Glucose Pending White Blood Count 10.6 K/UL (4.8-10.8) Red Blood Count 3.82 M/UL (4.20-5.40) L Hemoglobin 10.0 G/DL (12.0-16.0) L Hematocrit 34.2 % (37.0-47.0) L Mean Corpuscular Volume 90 FL (80-99) Mean Corpuscular Hemoglobin 26.3 PG (27.0-31.0) L Mean Corpuscular Hemoglobin Concent 29.3 G/DL (32.0-36.0) L Red Cell Distribution Width 17.6 % (11.6-14.8) H Platelet Count 196 K/UL (150-450) Mean Platelet Volume 6.6 FL (6.5-10.1) Neutrophils (%) (Auto) % (45.0-75.0) Lymphocytes (%) (Auto) % (20.0-45.0) Monocytes (%) (Auto) % (1.0-10.0) Eosinophils (%) (Auto) % (0.0-3.0) Basophils (%) (Auto) % (0.0-2.0) Differential Total Cells Counted 100 Neutrophils % (Manual) 91 % (45-75) H Lymphocytes % (Manual) 5 % (20-45) L Monocytes % (Manual) 4 % (1-10) Eosinophils % (Manual) 0 % (0-3) Basophils % (Manual) 0 % (0-2) Band Neutrophils 0 % (0-8) Platelet Estimate Adequate Platelet Morphology Normal Hypochromasia 1+ Anisocytosis 1+ Sodium Level 150 MMOL/L (136-145) H Potassium Level 3.7 MMOL/L (3.5-5.1) Chloride Level 112 MMOL/L (98-107) H Carbon Dioxide Level 37 MMOL/L (21-32) H Anion Gap 1 mmol/L (5-15) L Blood Urea Nitrogen 26 mg/dL (7-18) H Creatinine 0.8 MG/DL (0.55-1.30) Estimat Glomerular Filtration Rate > 60 mL/min (>60) Glucose Level 185 MG/DL (74-106) H Calcium Level 8.4 MG/DL (8.5-10.1) L Albumin 2.0 G/DL (3.4-5.0) L Arterial Blood pH 7.493 (7.350-7.450) Arterial Blood Partial Pressure CO2 47.5 mmHg (35.0-45.0) H Arterial Blood Partial Pressure O2 100.7 mmHg (75.0-100.0) H Arterial Blood HCO3 35.6 mmol/L (22.0-26.0) H Arterial Blood Oxygen Saturation 97.5 % (95-100) Arterial Blood Base Excess 11.0 (-2-2) *H Steve Test Positive Objective HEAD AND NECK: No JVD. OG tube. Tracheostomy in place. LUNGS: Coarse rhonchi. CARDIOVASCULAR: Irregularly irregular. S1 and S2 with no gallop or murmur. ABDOMEN: Soft.PEG EXTREMITIES: 2 plus pitting edema. Gabe Snell MD Nov 28, 2019 13:45
[2019-11-28] MEDS: DOPamine 400mg/250ml 250 ML IV SCH (18:36)
--- NOTE | 2019-11-28 18:44 | Diagnostic Imaging Report ---
EXAM: XR Chest, 1 View CLINICAL HISTORY: S/P LINE TECHNIQUE: Frontal view of the chest. COMPARISON: Chest radiograph on 11/28/2019 at 1029 hrs. FINDINGS: Hardware: Tracheostomy tube terminates in the region of the upper thoracic trachea. Interval placement of a right-sided PICC line, but that hip is difficult to visualize beyond the right axillary region. Lungs/pleura: Similar to slightly increased extensive patchy consolidations throughout the lungs. Heart/mediastinum: Stable enlargement of the cardiomediastinal silhouette. Soft tissues: Unremarkable. Bones: No acute fracture. Upper abdomen: Normal. IMPRESSION: 1. Interval placement of a right-sided PICC line, but that hip is difficult to visualize beyond the right axillary region. 2. Tracheostomy tube terminates in the region of the upper thoracic trachea. 3. Similar to slightly increased extensive patchy consolidations throughout the lungs.
[2019-11-28] MEDS: Norepinephrine 4mg/NS Premix 250 ML IV SCH (19:49)
[2019-11-28] MEDS: Dyna-Hex 2% Top Sol 2oz TOPIC SCH (22:15)
[2019-11-29] VITALS (15 sets, daily range): BP systolic 108–142; BP diastolic 49–79
[2019-11-29] MEDS: NovoLOG Insulin Flexpen SUBQ SCH ×3 (05:20→17:20)
[2019-11-29 06:18] LABS: HEMATOCRIT 33.1 % (37.0-47.0); HEMOGLOBIN 9.7 G/DL (12.0-16.0); MEAN CORPUSCULAR VOLUME 90 FL (80-99); PLATELET COUNT 214 K/UL (150-450); RED BLOOD COUNT 3.69 M/UL (4.20-5.40); WHITE BLOOD COUNT 9.3 K/UL (4.8-10.8)
[2019-11-29 07:10] LABS: PHOSPHORUS 1.9 MG/DL (2.5-4.9)
[2019-11-29 07:15] LABS: ALANINE AMINOTRANSFERASE 32 U/L (12-78); ALBUMIN 1.9 G/DL (3.4-5.0); ALBUMIN/GLOBULIN RATIO 0.4 (1.0-2.7); ALKALINE PHOSPHATASE 178 U/L (46-116); ANION GAP 2 mmol/L (5-15); ASPARTATE AMINO TRANSFERASE 49 U/L (15-37); BILIRUBIN,TOTAL 0.7 MG/DL (0.2-1.0); BLOOD UREA NITROGEN 20 mg/dL (7-18); CALCIUM 8.4 MG/DL (8.5-10.1); CARBON DIOXIDE 37 MMOL/L (21-32); CHLORIDE 112 MMOL/L (98-107); CREATININE 0.8 MG/DL (0.55-1.30); POTASSIUM 3.8 MMOL/L (3.5-5.1); SODIUM 150 MMOL/L (136-145)
--- NOTE | 2019-11-29 08:34 | General Progress Note ---
Assessment/Plan Problem List: (1) Respiratory failure ICD Codes: J96.90 - Respiratory failure, unspecified, unspecified whether with hypoxia or hypercapnia SNOMED: 930666154 (2) 2019 novel coronavirus disease (COVID-19) ICD Codes: U07.1 - COVID-19 SNOMED: 194294628 (3) Multifocal pneumonia ICD Codes: J18.9 - Pneumonia, unspecified organism SNOMED: 901771223 (4) Afib ICD Codes: I48.91 - Unspecified atrial fibrillation SNOMED: 61060825 (5) CHF (congestive heart failure) ICD Codes: I50.9 - Heart failure, unspecified SNOMED: 68217928 (6) Diabetes ICD Codes: E11.9 - Type 2 diabetes mellitus without complications SNOMED: 39447573 (7) Fluid overload ICD Codes: E87.70 - Fluid overload, unspecified SNOMED: 62095541 (8) Epistaxis ICD Codes: R04.0 - Epistaxis SNOMED: 520515848 Status: unchanged Assessment/Plan: fu H&H prn blood transfusion GTF on colace icu care will fu Subjective ROS Limited/Unobtainable: No Allergies: Coded Allergies: No Known Allergies (Unverified , 11/06/19) Objective Last 24 Hour Vital Signs Date Time Temp Pulse Resp B/P (MAP) Pulse Ox O2 Delivery O2 Flow Rate FiO2 11/29/19 07:00 81 16 142/70 (94) 91 11/29/19 06:59 88 21 70 11/29/19 06:00 98.2 88 21 125/55 (78) 94 11/29/19 05:00 90 20 133/65 (87) 94 11/29/19 04:00 Mechanical Ventilator Mechanical Ventilator Mechanical Ventilator 11/29/19 04:00 40 11/29/19 04:00 83 20 132/60 (84) 93 11/29/19 04:00 83 11/29/19 03:35 79 16 40 11/29/19 03:00 80 19 137/65 (89) 11/29/19 02:00 79 22 140/72 (94) 100 11/29/19 01:00 73 15 122/63 (82) 98 11/29/19 00:00 Mechanical Ventilator Mechanical Ventilator Mechanical Ventilator 11/29/19 00:00 72 11/29/19 00:00 40 11/29/19 00:00 98.3 72 13 110/53 (72) 100 11/28/19 23:20 92 22 40 11/28/19 23:00 68 10 89/47 (61) 100 11/28/19 22:16 88 130/67 11/28/19 22:00 84 15 130/67 (88) 100 11/28/19 21:00 86 19 114/68 (83) 100 11/28/19 20:00 83 18 129/64 (85) 100 11/28/19 20:00 40 11/28/19 20:00 Mechanical Ventilator Mechanical Ventilator Mechanical Ventilator 11/28/19 20:00 83 11/28/19 19:49 130/67 11/28/19 19:24 87 15 40 11/28/19 19:00 94 19 134/76 (95) 100 11/28/19 18:36 118/57 11/28/19 18:00 88 16 118/57 (77) 100 11/28/19 17:00 99.1 91 17 137/60 (85) 99 11/28/19 16:00 93 20 134/76 (95) 99 11/28/19 16:00 40 11/28/19 16:00 Mechanical Ventilator Mechanical Ventilator Mechanical Ventilator 11/28/19 15:28 89 11/28/19 15:11 81 16 40 11/28/19 15:00 89 17 119/52 (74) 99 11/28/19 14:00 89 20 93/39 (57) 99 11/28/19 13:00 99.0 103 19 139/62 (87) 99 11/28/19 12:00 90 11/28/19 12:00 Mechanical Ventilator Mechanical Ventilator Mechanical Ventilator 11/28/19 12:00 99 20 123/82 (96) 99 11/28/19 11:32 90 11/28/19 11:00 92 19 131/56 (81) 100 11/28/19 11:00 40 11/28/19 10:59 88 17 40 11/28/19 10:00 99.2 94 17 105/61 (76) 11/28/19 09:00 101.0 105 19 120/65 (83) 95 11/28/19 09:00 105 120/65 Intake and Output 11/28/19 11/29/19 19:00 07:00 Intake Total 755 ml 630 ml Output Total 455 ml 1300 ml Balance 300 ml -670 ml Free Water 100 ml 30 ml IV Total 55 ml Tube Feeding 600 ml 600 ml Output Urine Total 455 ml 1300 ml # Voids 1 # Bowel Movements 1 1 Laboratory Tests 11/28/19 09:45: Arterial Blood pH 7.493H, Arterial Blood Partial Pressure CO2 47.5H, Arterial Blood Partial Pressure O2 100.7H, Arterial Blood HCO3 35.6H, Arterial Blood Oxygen Saturation 97.5, Arterial Blood Base Excess 11.0*H, Steve Test Positive 11/29/19 05:00: White Blood Count 9.3, Red Blood Count 3.69L, Hemoglobin 9.7L, Hematocrit 33.1L , Mean Corpuscular Volume 90, Mean Corpuscular Hemoglobin 26.2L, Mean Corpuscular Hemoglobin Concent 29.2L, Red Cell Distribution Width 18.0H, Platelet Count 214, Mean Platelet Volume 6.9, Neutrophils (%) (Auto) , Lymphocytes (%) (Auto) , Monocytes (%) (Auto) , Eosinophils (%) (Auto) , Basophils (%) (Auto) , Neutrophils % (Manual) [Pending], Lymphocytes % (Manual) [Pending], Platelet Estimate [Pending], Platelet Morphology [Pending], Sodium Level 150H, Potassium Level 3.8, Chloride Level 112H, Carbon Dioxide Level 37H, Anion Gap 2L, Blood Urea Nitrogen 20H, Creatinine 0.8, Estimat Glomerular Filtration Rate > 60, Glucose Level 158H, Calcium Level 8.4L, Phosphorus Level 1.9L, Magnesium Level 2.2, Total Bilirubin 0.7, Aspartate Amino Transf (AST/SGOT ) 49H, Alanine Aminotransferase (ALT/SGPT) 32, Alkaline Phosphatase 178H, C- Reactive Protein, Quantitative 4.0H, Pro-B-Type Natriuretic Peptide 5450H, Total Protein 6.4, Albumin 1.9L, Globulin 4.5, Albumin/Globulin Ratio 0.4L Height (Feet): 5 Height (Inches): 1.00 Weight (Pounds): 300 General Appearance: lethargic EENT: normal ENT inspection Neck: supple Cardiovascular: tachycardia Respiratory/Chest: decreased breath sounds Abdomen: hypoactive bowel sounds Extremities: non-tender Case Patel MD Nov 29, 2019 08:34
--- NOTE | 2019-11-29 08:52 | General Progress Note ---
Assessment/Plan Problem List: (1) Afib ICD Codes: I48.91 - Unspecified atrial fibrillation SNOMED: 97422441 (2) Epistaxis ICD Codes: R04.0 - Epistaxis SNOMED: 278412169 (3) Weak ICD Codes: R53.1 - Weakness SNOMED: 42958433 (4) UTI (urinary tract infection) ICD Codes: N39.0 - Urinary tract infection, site not specified SNOMED: 45031205 (5) Diabetes ICD Codes: E11.9 - Type 2 diabetes mellitus without complications SNOMED: 26123743 (6) CHF (congestive heart failure) ICD Codes: I50.9 - Heart failure, unspecified SNOMED: 68093280 (7) Multifocal pneumonia ICD Codes: J18.9 - Pneumonia, unspecified organism SNOMED: 495936980 (8) 2019 novel coronavirus disease (COVID-19) ICD Codes: U07.1 - COVID-19 SNOMED: 243366588 (9) Respiratory failure ICD Codes: J96.90 - Respiratory failure, unspecified, unspecified whether with hypoxia or hypercapnia SNOMED: 664133836 Status: unchanged Assessment/Plan: vent abx bp bs control cbc bmp am Subjective Constitutional: Reports: weakness Allergies: Coded Allergies: No Known Allergies (Unverified , 11/06/19) All Systems: reviewed and negative except above Subjective trach vent in icu Objective Last 24 Hour Vital Signs Date Time Temp Pulse Resp B/P (MAP) Pulse Ox O2 Delivery O2 Flow Rate FiO2 11/29/19 07:00 81 16 142/70 (94) 91 11/29/19 06:59 88 21 70 11/29/19 06:00 98.2 88 21 125/55 (78) 94 11/29/19 05:00 90 20 133/65 (87) 94 11/29/19 04:00 Mechanical Ventilator Mechanical Ventilator Mechanical Ventilator 11/29/19 04:00 40 11/29/19 04:00 83 20 132/60 (84) 93 11/29/19 04:00 83 11/29/19 03:35 79 16 40 11/29/19 03:00 80 19 137/65 (89) 11/29/19 02:00 79 22 140/72 (94) 100 11/29/19 01:00 73 15 122/63 (82) 98 11/29/19 00:00 Mechanical Ventilator Mechanical Ventilator Mechanical Ventilator 11/29/19 00:00 72 11/29/19 00:00 40 11/29/19 00:00 98.3 72 13 110/53 (72) 100 11/28/19 23:20 92 22 40 11/28/19 23:00 68 10 89/47 (61) 100 11/28/19 22:16 88 130/67 11/28/19 22:00 84 15 130/67 (88) 100 11/28/19 21:00 86 19 114/68 (83) 100 11/28/19 20:00 83 18 129/64 (85) 100 11/28/19 20:00 40 11/28/19 20:00 Mechanical Ventilator Mechanical Ventilator Mechanical Ventilator 11/28/19 20:00 83 11/28/19 19:49 130/67 11/28/19 19:24 87 15 40 11/28/19 19:00 94 19 134/76 (95) 100 11/28/19 18:36 118/57 11/28/19 18:00 88 16 118/57 (77) 100 11/28/19 17:00 99.1 91 17 137/60 (85) 99 11/28/19 16:00 93 20 134/76 (95) 99 11/28/19 16:00 40 11/28/19 16:00 Mechanical Ventilator Mechanical Ventilator Mechanical Ventilator 11/28/19 15:28 89 11/28/19 15:11 81 16 40 11/28/19 15:00 89 17 119/52 (74) 99 11/28/19 14:00 89 20 93/39 (57) 99 11/28/19 13:00 99.0 103 19 139/62 (87) 99 11/28/19 12:00 90 11/28/19 12:00 Mechanical Ventilator Mechanical Ventilator Mechanical Ventilator 11/28/19 12:00 99 20 123/82 (96) 99 11/28/19 11:32 90 11/28/19 11:00 92 19 131/56 (81) 100 11/28/19 11:00 40 11/28/19 10:59 88 17 40 11/28/19 10:00 99.2 94 17 105/61 (76) 11/28/19 09:00 101.0 105 19 120/65 (83) 95 11/28/19 09:00 105 120/65 Intake and Output 11/28/19 11/29/19 19:00 07:00 Intake Total 755 ml 630 ml Output Total 455 ml 1300 ml Balance 300 ml -670 ml Free Water 100 ml 30 ml IV Total 55 ml Tube Feeding 600 ml 600 ml Output Urine Total 455 ml 1300 ml # Voids 1 # Bowel Movements 1 1 Laboratory Tests 11/28/19 09:45: Arterial Blood pH 7.493H, Arterial Blood Partial Pressure CO2 47.5H, Arterial Blood Partial Pressure O2 100.7H, Arterial Blood HCO3 35.6H, Arterial Blood Oxygen Saturation 97.5, Arterial Blood Base Excess 11.0*H, Steve Test Positive 11/29/19 05:00: White Blood Count 9.3, Red Blood Count 3.69L, Hemoglobin 9.7L, Hematocrit 33.1L , Mean Corpuscular Volume 90, Mean Corpuscular Hemoglobin 26.2L, Mean Corpuscular Hemoglobin Concent 29.2L, Red Cell Distribution Width 18.0H, Platelet Count 214, Mean Platelet Volume 6.9, Neutrophils (%) (Auto) , Lymphocytes (%) (Auto) , Monocytes (%) (Auto) , Eosinophils (%) (Auto) , Basophils (%) (Auto) , Neutrophils % (Manual) [Pending], Lymphocytes % (Manual) [Pending], Platelet Estimate [Pending], Platelet Morphology [Pending], Sodium Level 150H, Potassium Level 3.8, Chloride Level 112H, Carbon Dioxide Level 37H, Anion Gap 2L, Blood Urea Nitrogen 20H, Creatinine 0.8, Estimat Glomerular Filtration Rate > 60, Glucose Level 158H, Calcium Level 8.4L, Phosphorus Level 1.9L, Magnesium Level 2.2, Total Bilirubin 0.7, Aspartate Amino Transf (AST/SGOT ) 49H, Alanine Aminotransferase (ALT/SGPT) 32, Alkaline Phosphatase 178H, C- Reactive Protein, Quantitative 4.0H, Pro-B-Type Natriuretic Peptide 5450H, Total Protein 6.4, Albumin 1.9L, Globulin 4.5, Albumin/Globulin Ratio 0.4L Height (Feet): 5 Height (Inches): 1.00 Weight (Pounds): 300 General Appearance: lethargic EENT: normal ENT inspection Neck: normal alignment Cardiovascular: normal rate, regular rhythm Respiratory/Chest: no respiratory distress, no accessory muscle use Extremities: normal inspection Skin: normal pigmentation Gustabo Carter DO Nov 29, 2019 08:52
[2019-11-29] MEDS ORDERED: Amiodarone 200mg tab GT SCH (09:00)
[2019-11-29] MEDS: Levemir Flexpen SUBQ SCH ×2 (09:58→17:31)
[2019-11-29] MEDS: metOLazone 2.5 MG TAB GT SCH (10:08)
[2019-11-29] MEDS: Docusate 100mg/10ml Liq GT SCH (10:08)
--- NOTE | 2019-11-29 11:06 | Pulmonology Progress Note ---
Subjective ROS Limited/Unobtainable: No Interval Events: Re-intubated on 11/19/19; Status post tracheostomy 11/24/2019 Constitutional: Reports: fever, other - low grade in am HEENT: Repors: no symptoms Respiratory: Reports: dry cough, shortness of breath Cardiovascular: Reports: no symptoms Gastrointestinal/Abdominal: Reports: no symptoms Allergies: Coded Allergies: No Known Allergies (Unverified , 11/06/19) All Systems: reviewed and negative except above Objective Last 24 Hour Vital Signs Date Time Temp Pulse Resp B/P (MAP) Pulse Ox O2 Delivery O2 Flow Rate FiO2 11/29/19 10:09 80 125/79 11/29/19 10:00 50 11/29/19 08:00 70 11/29/19 08:00 Mechanical Ventilator Mechanical Ventilator 11/29/19 08:00 87 11/29/19 07:00 81 16 142/70 (94) 91 11/29/19 06:59 88 21 70 11/29/19 06:00 98.2 88 21 125/55 (78) 94 11/29/19 05:00 90 20 133/65 (87) 94 11/29/19 04:00 Mechanical Ventilator Mechanical Ventilator Mechanical Ventilator 11/29/19 04:00 40 11/29/19 04:00 83 20 132/60 (84) 93 11/29/19 04:00 83 11/29/19 03:35 79 16 40 11/29/19 03:00 80 19 137/65 (89) 11/29/19 02:00 79 22 140/72 (94) 100 11/29/19 01:00 73 15 122/63 (82) 98 11/29/19 00:00 Mechanical Ventilator Mechanical Ventilator Mechanical Ventilator 11/29/19 00:00 72 11/29/19 00:00 40 11/29/19 00:00 98.3 72 13 110/53 (72) 100 11/28/19 23:20 92 22 40 11/28/19 23:00 68 10 89/47 (61) 100 11/28/19 22:16 88 130/67 11/28/19 22:00 84 15 130/67 (88) 100 11/28/19 21:00 86 19 114/68 (83) 100 11/28/19 20:00 83 18 129/64 (85) 100 11/28/19 20:00 40 11/28/19 20:00 Mechanical Ventilator Mechanical Ventilator Mechanical Ventilator 11/28/19 20:00 83 11/28/19 19:49 130/67 11/28/19 19:24 87 15 40 11/28/19 19:00 94 19 134/76 (95) 100 11/28/19 18:36 118/57 11/28/19 18:00 88 16 118/57 (77) 100 11/28/19 17:00 99.1 91 17 137/60 (85) 99 11/28/19 16:00 93 20 134/76 (95) 99 11/28/19 16:00 40 11/28/19 16:00 Mechanical Ventilator Mechanical Ventilator Mechanical Ventilator 11/28/19 15:28 89 11/28/19 15:11 81 16 40 11/28/19 15:00 89 17 119/52 (74) 99 11/28/19 14:00 89 20 93/39 (57) 99 11/28/19 13:00 99.0 103 19 139/62 (87) 99 11/28/19 12:00 90 11/28/19 12:00 Mechanical Ventilator Mechanical Ventilator Mechanical Ventilator 11/28/19 12:00 99 20 123/82 (96) 99 11/28/19 11:32 90 Intake and Output 11/28/19 11/29/19 19:00 07:00 Intake Total 755 ml 630 ml Output Total 455 ml 1300 ml Balance 300 ml -670 ml Free Water 100 ml 30 ml IV Total 55 ml Tube Feeding 600 ml 600 ml Output Urine Total 455 ml 1300 ml # Voids 1 # Bowel Movements 1 1 General Appearance: no acute distress HEENT: normocephalic, status post trach Respiratory: decreased breath sounds Cardiovascular: normal peripheral pulses Abdomen: normal bowel sounds Extremities: no cyanosis Laboratory Tests 11/29/19 05:00: White Blood Count 9.3, Red Blood Count 3.69L, Hemoglobin 9.7L, Hematocrit 33.1L , Mean Corpuscular Volume 90, Mean Corpuscular Hemoglobin 26.2L, Mean Corpuscular Hemoglobin Concent 29.2L, Red Cell Distribution Width 18.0H, Platelet Count 214, Mean Platelet Volume 6.9, Neutrophils (%) (Auto) , Lymphocytes (%) (Auto) , Monocytes (%) (Auto) , Eosinophils (%) (Auto) , Basophils (%) (Auto) , Differential Total Cells Counted 100, Neutrophils % ( Manual) 88H, Lymphocytes % (Manual) 7L, Monocytes % (Manual) 5, Eosinophils % ( Manual) 0, Basophils % (Manual) 0, Band Neutrophils 0, Platelet Estimate Adequate, Platelet Morphology Normal, Polychromasia 1+, Hypochromasia 1+, Anisocytosis 1+, Sodium Level 150H, Potassium Level 3.8, Chloride Level 112H, Carbon Dioxide Level 37H, Anion Gap 2L, Blood Urea Nitrogen 20H, Creatinine 0.8 , Estimat Glomerular Filtration Rate > 60, Glucose Level 158H, Calcium Level 8.4L, Phosphorus Level 1.9L, Magnesium Level 2.2, Total Bilirubin 0.7, Aspartate Amino Transf (AST/SGOT) 49H, Alanine Aminotransferase (ALT/SGPT) 32, Alkaline Phosphatase 178H, C-Reactive Protein, Quantitative 4.0H, Pro-B-Type Natriuretic Peptide 5450H, Total Protein 6.4, Albumin 1.9L, Globulin 4.5, Albumin/Globulin Ratio 0.4L 11/29/19 09:58: Arterial Blood pH 7.490H, Arterial Blood Partial Pressure CO2 45.1H, Arterial Blood Partial Pressure O2 308.7H, Arterial Blood HCO3 33.6H, Arterial Blood Oxygen Saturation 99.5, Arterial Blood Base Excess 9.2*H, Steve Test Positive Current Medications Medications (Trade) Dose Ordered Sig/Robyn Route PRN Reason Start Time Stop Time Status Last Admin Dose Admin Acetaminophen (Tylenol) 650 mg Q6H PRN GT Temp >100.5 11/24/19 13:30 12/12/19 00:14 11/28/19 06:24 Amiodarone HCl (Cordarone) 400 mg DAILY GT 11/29/19 09:00 02/18/20 09:29 11/29/19 10:08 Cefepime HCl 2 gm/ Dextrose 55 ml @ 110 mls/hr Q12H IVPB 11/25/19 12:00 12/02/19 11:59 11/28/19 23:20 Chlorhexidine Gluconate (Miya-Hex 2%) 1 applic DAILY@2000 TOPIC 11/08/19 21:30 02/06/20 21:29 11/28/19 22:15 Clonidine HCl (Catapres Tab) 0.1 mg Q4H PRN GT For High Blood Pressure 11/24/19 13:30 02/09/20 10:59 Dextrose (Dextrose 50%) 25 ml Q30M PRN IV Hypoglycemia 11/23/19 06:45 02/21/20 06:44 Dextrose (Dextrose 50%) 50 ml Q30M PRN IV Hypoglycemia 11/23/19 06:45 02/21/20 06:44 Docusate Sodium (Colace) 100 mg EVERY 12 HOURS GT 11/25/19 09:00 12/23/19 08:59 11/29/19 10:08 Dopamine HCl/ Dextrose 250 ml @ 0 mls/hr Q24H IV 11/19/19 18:36 02/17/20 18:35 11/19/19 18:41 Famotidine (Pepcid) 20 mg BID GT 11/28/19 18:00 02/26/20 17:59 11/29/19 10:09 Folic Acid (Folate) 2 mg DAILY GT 11/25/19 09:00 12/15/19 08:59 11/29/19 10:09 Insulin Aspart (NovoLOG) EVERY 6 HOURS SUBQ 11/15/19 12:00 02/11/20 20:59 11/29/19 05:20 Insulin Detemir (Levemir) 12 units BID SUBQ 11/24/19 09:00 02/21/20 08:59 11/29/19 09:58 Lorazepam (Ativan 2mg/ml 1ml) 2 mg Q3H PRN IV For Anxiety 11/26/19 07:45 12/03/19 07:44 11/27/19 06:30 Metolazone (Zaroxolyn) 2.5 mg DAILY GT 11/28/19 09:30 12/28/19 09:29 11/29/19 10:08 Metoprolol Tartrate (Lopressor) 25 mg Q12HR GT 11/24/19 21:00 02/18/20 09:29 11/29/19 10:09 Norepinephrine Bitartrate 250 ml @ 0 mls/hr Q24H IV 11/19/19 19:49 02/17/20 19:48 Assessment/Plan Assessment/Plan IMPRESSION: 1. COVID-19 pneumonia. 2. Diabetes mellitus and hypertension. 3. Lactic acidemia. 4. Epistaxis 5. Respiratory failure; failed extubation 6. S/p trach/PEG DISCUSSION: Careful and close monitoring. Continue medications status post tracheostomy Begin weaning; trach collar S/p PEG no longer on Lasix I will follow carefully Saturations are erratic on pulse ox; however ABG is adequate. Lakeisha Zavaleta Omar Syed MD Nov 29, 2019 11:06
--- NOTE | 2019-11-29 11:33 | Infectious Diseases Prog Note ---
Assessment/Plan Assessment/Plan A: 1. COVID-19 pneumonia. 2. Diabetes with hyper 3. Hypertension. 4. Hypoxic respiratory failure 5. Morbid obesity 6. Nasal bleeding 7. Lactic acidosis 8. Hyperkalemia 9. Leukocytosis improving 10. Pneumonia with MSSA, Proteus & Enterobacter PLAN: 1. Finished Remdesivir 2. Continue isolation. 3. Continue Cefepime X 2 days Subjective ROS Limited/Unobtainable: Yes Constitutional: Denies: fever Allergies: Coded Allergies: No Known Allergies (Unverified , 11/06/19) Objective Last 24 Hour Vital Signs Date Time Temp Pulse Resp B/P (MAP) Pulse Ox O2 Delivery O2 Flow Rate FiO2 11/29/19 11:00 68 17 116/74 (88) 93 11/29/19 10:45 76 22 70 11/29/19 10:09 80 125/79 11/29/19 10:00 86 18 125/79 (94) 91 11/29/19 10:00 50 11/29/19 09:15 90 11/29/19 09:00 85 19 130/65 (86) 98 11/29/19 08:00 70 11/29/19 08:00 83 19 135/73 (93) 97 11/29/19 08:00 Mechanical Ventilator Mechanical Ventilator 11/29/19 08:00 87 11/29/19 07:00 81 16 142/70 (94) 91 11/29/19 06:59 88 21 70 11/29/19 06:00 98.2 88 21 125/55 (78) 94 11/29/19 05:00 90 20 133/65 (87) 94 11/29/19 04:00 Mechanical Ventilator Mechanical Ventilator Mechanical Ventilator 11/29/19 04:00 40 11/29/19 04:00 83 20 132/60 (84) 93 11/29/19 04:00 83 11/29/19 03:35 79 16 40 11/29/19 03:00 80 19 137/65 (89) 11/29/19 02:00 79 22 140/72 (94) 100 11/29/19 01:00 73 15 122/63 (82) 98 11/29/19 00:00 Mechanical Ventilator Mechanical Ventilator Mechanical Ventilator 11/29/19 00:00 72 11/29/19 00:00 40 11/29/19 00:00 98.3 72 13 110/53 (72) 100 11/28/19 23:20 92 22 40 11/28/19 23:00 68 10 89/47 (61) 100 11/28/19 22:16 88 130/67 11/28/19 22:00 84 15 130/67 (88) 100 11/28/19 21:00 86 19 114/68 (83) 100 11/28/19 20:00 83 18 129/64 (85) 100 11/28/19 20:00 40 11/28/19 20:00 Mechanical Ventilator Mechanical Ventilator Mechanical Ventilator 11/28/19 20:00 83 11/28/19 19:49 130/67 11/28/19 19:24 87 15 40 11/28/19 19:00 94 19 134/76 (95) 100 11/28/19 18:36 118/57 11/28/19 18:00 88 16 118/57 (77) 100 11/28/19 17:00 99.1 91 17 137/60 (85) 99 11/28/19 16:00 93 20 134/76 (95) 99 11/28/19 16:00 40 11/28/19 16:00 Mechanical Ventilator Mechanical Ventilator Mechanical Ventilator 11/28/19 15:28 89 11/28/19 15:11 81 16 40 11/28/19 15:00 89 17 119/52 (74) 99 11/28/19 14:00 89 20 93/39 (57) 99 11/28/19 13:00 99.0 103 19 139/62 (87) 99 11/28/19 12:00 90 11/28/19 12:00 Mechanical Ventilator Mechanical Ventilator Mechanical Ventilator 11/28/19 12:00 99 20 123/82 (96) 99 11/28/19 11:32 90 Height (Feet): 5 Height (Inches): 1.00 Weight (Pounds): 300 General Appearance: no acute distress HEENT: status post trach Respiratory/Chest: other - on ventilator Cardiovascular: normal rate, other - PICC line Abdomen: soft, non tender, other - GT feeding Extremities: other - edema Neurologic/Psychiatric: aphasia, other - on restraint Laboratory Tests Test 11/29/19 05:00 11/29/19 09:58 White Blood Count 9.3 K/UL (4.8-10.8) Red Blood Count 3.69 M/UL (4.20-5.40) L Hemoglobin 9.7 G/DL (12.0-16.0) L Hematocrit 33.1 % (37.0-47.0) L Mean Corpuscular Volume 90 FL (80-99) Mean Corpuscular Hemoglobin 26.2 PG (27.0-31.0) L Mean Corpuscular Hemoglobin Concent 29.2 G/DL (32.0-36.0) L Red Cell Distribution Width 18.0 % (11.6-14.8) H Platelet Count 214 K/UL (150-450) Mean Platelet Volume 6.9 FL (6.5-10.1) Neutrophils (%) (Auto) % (45.0-75.0) Lymphocytes (%) (Auto) % (20.0-45.0) Monocytes (%) (Auto) % (1.0-10.0) Eosinophils (%) (Auto) % (0.0-3.0) Basophils (%) (Auto) % (0.0-2.0) Differential Total Cells Counted 100 Neutrophils % (Manual) 88 % (45-75) H Lymphocytes % (Manual) 7 % (20-45) L Monocytes % (Manual) 5 % (1-10) Eosinophils % (Manual) 0 % (0-3) Basophils % (Manual) 0 % (0-2) Band Neutrophils 0 % (0-8) Platelet Estimate Adequate Platelet Morphology Normal Polychromasia 1+ Hypochromasia 1+ Anisocytosis 1+ Sodium Level 150 MMOL/L (136-145) H Potassium Level 3.8 MMOL/L (3.5-5.1) Chloride Level 112 MMOL/L (98-107) H Carbon Dioxide Level 37 MMOL/L (21-32) H Anion Gap 2 mmol/L (5-15) L Blood Urea Nitrogen 20 mg/dL (7-18) H Creatinine 0.8 MG/DL (0.55-1.30) Estimat Glomerular Filtration Rate > 60 mL/min (>60) Glucose Level 158 MG/DL (74-106) H Calcium Level 8.4 MG/DL (8.5-10.1) L Phosphorus Level 1.9 MG/DL (2.5-4.9) L Magnesium Level 2.2 MG/DL (1.8-2.4) Total Bilirubin 0.7 MG/DL (0.2-1.0) Aspartate Amino Transf (AST/SGOT) 49 U/L (15-37) H Alanine Aminotransferase (ALT/SGPT) 32 U/L (12-78) Alkaline Phosphatase 178 U/L (46-116) H C-Reactive Protein, Quantitative 4.0 mg/dL (0.00-0.90) H Pro-B-Type Natriuretic Peptide 5450 pg/mL (0-125) H Total Protein 6.4 G/DL (6.4-8.2) Albumin 1.9 G/DL (3.4-5.0) L Globulin 4.5 g/dL Albumin/Globulin Ratio 0.4 (1.0-2.7) L Arterial Blood pH 7.490 (7.350-7.450) Arterial Blood Partial Pressure CO2 45.1 mmHg (35.0-45.0) H Arterial Blood Partial Pressure O2 308.7 mmHg (75.0-100.0) H Arterial Blood HCO3 33.6 mmol/L (22.0-26.0) H Arterial Blood Oxygen Saturation 99.5 % (95-100) Arterial Blood Base Excess 9.2 (-2-2) *H Steve Test Positive Current Medications Medications (Trade) Dose Ordered Sig/Robyn Route PRN Reason Start Time Stop Time Status Last Admin Dose Admin Acetaminophen (Tylenol) 650 mg Q6H PRN GT Temp >100.5 11/24/19 13:30 12/12/19 00:14 11/28/19 06:24 Amiodarone HCl (Cordarone) 400 mg DAILY GT 11/29/19 09:00 02/18/20 09:29 11/29/19 10:08 Cefepime HCl 2 gm/ Dextrose 55 ml @ 110 mls/hr Q12H IVPB 11/25/19 12:00 12/02/19 11:59 11/28/19 23:20 Chlorhexidine Gluconate (Miya-Hex 2%) 1 applic DAILY@2000 TOPIC 11/08/19 21:30 02/06/20 21:29 11/28/19 22:15 Clonidine HCl (Catapres Tab) 0.1 mg Q4H PRN GT For High Blood Pressure 11/24/19 13:30 02/09/20 10:59 Dextrose (Dextrose 50%) 25 ml Q30M PRN IV Hypoglycemia 11/23/19 06:45 02/21/20 06:44 Dextrose (Dextrose 50%) 50 ml Q30M PRN IV Hypoglycemia 11/23/19 06:45 02/21/20 06:44 Docusate Sodium (Colace) 100 mg EVERY 12 HOURS GT 11/25/19 09:00 12/23/19 08:59 11/29/19 10:08 Dopamine HCl/ Dextrose 250 ml @ 0 mls/hr Q24H IV 11/19/19 18:36 02/17/20 18:35 11/19/19 18:41 Famotidine (Pepcid) 20 mg BID GT 11/28/19 18:00 02/26/20 17:59 11/29/19 10:09 Folic Acid (Folate) 2 mg DAILY GT 11/25/19 09:00 12/15/19 08:59 11/29/19 10:09 Insulin Aspart (NovoLOG) EVERY 6 HOURS SUBQ 11/15/19 12:00 02/11/20 20:59 11/29/19 05:20 Insulin Detemir (Levemir) 12 units BID SUBQ 11/24/19 09:00 02/21/20 08:59 11/29/19 09:58 Lorazepam (Ativan 2mg/ml 1ml) 2 mg Q3H PRN IV For Anxiety 11/26/19 07:45 12/03/19 07:44 11/27/19 06:30 Metolazone (Zaroxolyn) 2.5 mg DAILY GT 11/28/19 09:30 12/28/19 09:29 11/29/19 10:08 Metoprolol Tartrate (Lopressor) 25 mg Q12HR GT 11/24/19 21:00 02/18/20 09:29 11/29/19 10:09 Norepinephrine Bitartrate 250 ml @ 0 mls/hr Q24H IV 11/19/19 19:49 02/17/20 19:48 Potassium Phosphate 21 mm/ Sodium Chloride 282 ml @ 47 mls/hr ONCE ONCE IV 11/29/19 12:00 11/29/19 17:59 Jose Hernandez MD Nov 29, 2019 11:33
[2019-11-29] MEDS: Cefepime HCl 2 GM in D5W 55 ML IVPB SCH (11:36)
[2019-11-29] MEDS ORDERED: Potassium Phosphate 21 MM in NS 275 ML IV ONE (12:00)
--- NOTE | 2019-11-29 12:42 | Nephrology Progress Note ---
Assessment/Plan Problem List: (1) Electrolyte imbalance (2) Diabetes (3) 2019 novel coronavirus disease (COVID-19) (4) Respiratory failure Assessment 1. COVID-19 pneumonia. 2. Diabetes and hyperglycemia 3. Hypertension. 4. Hypoxic respiratory failure 5. Morbid obesity with BMI of 65.5 6. Nasal bleeding 7. Lactic acidosis 8. Hyperkalemia Plan November 28: Lab reviewed. Phosphorus supplement given. Discussed with RN. Continue to monitor renal parameters. November 27: Lab reviewed. Serum sodium improved. Will start low-dose Zaroxolyn. Change IV Pepcid to GT route. Remains full code. Monitor renal parameters and electrolytes. November 26: Lab reviewed. Serum sodium elevated. 500 cc D5W bolus given. Potassium supplement given. Patient remains full code. Continue per consultants. November 25: Lab reviewed. Patient has trach connected to vent. Patient also has PEG. Continue per consultants. Medication list reviewed. November 24: Lab reviewed. Potassium IV given. Has tracheostomy to vent. Has PEG. Continue per consultants. November 23: Labs reviewed. Creatinine higher to 1.4. Due for trach today. Suggest to stop IV Lasix. November 22: Renal parameters stable. Medication list reviewed. Continue same management per consultants. November 21: Renal parameters stable. On IV Lasix. Edematous. Will order few doses of albumin 25%. Continue per consultants. November 20: Repeat serum potassium again normal. Renal parameters normal. Continue per consultants. November 19: Repeat serum potassium normal. Renal parameters within normal limit. Continue per consultants. November 18: Levemir stopped since IV fluid and dexamethasone are discontinued and patient blood sugar went down. Renal parameters are stable. Continues to be on ventilator. Previously: Renal parameters stable Weaning is being attempted patient's urine output is low. We will give a trial of albumin and Lasix, As needed Discussed with RN Stop IV to D5W 75 cc an hour Levemir 20 units subcu every 12 hours Kayexalate for high potassium as needed Monitor electrolytes and renal parameters Tight blood sugar control, long-acting insulin as needed Keep the blood pressure in check Per orders Subjective ROS Limited/Unobtainable: Yes Objective Objective Last 24 Hour Vital Signs Date Time Temp Pulse Resp B/P (MAP) Pulse Ox O2 Delivery O2 Flow Rate FiO2 11/29/19 12:00 97.8 84 17 113/75 (88) 96 8/9/20 12:00 50 11/29/19 12:00 Mechanical Ventilator Mechanical Ventilator 11/29/19 11:00 68 17 116/74 (88) 93 11/29/19 10:45 76 22 70 11/29/19 10:09 80 125/79 11/29/19 10:00 86 18 125/79 (94) 91 11/29/19 10:00 50 11/29/19 09:15 90 11/29/19 09:00 85 19 130/65 (86) 98 11/29/19 08:00 70 11/29/19 08:00 83 19 135/73 (93) 97 11/29/19 08:00 Mechanical Ventilator Mechanical Ventilator 11/29/19 08:00 87 11/29/19 07:00 81 16 142/70 (94) 91 11/29/19 06:59 88 21 70 11/29/19 06:00 98.2 88 21 125/55 (78) 94 11/29/19 05:00 90 20 133/65 (87) 94 11/29/19 04:00 Mechanical Ventilator Mechanical Ventilator Mechanical Ventilator 11/29/19 04:00 40 11/29/19 04:00 83 20 132/60 (84) 93 11/29/19 04:00 83 11/29/19 03:35 79 16 40 11/29/19 03:00 80 19 137/65 (89) 11/29/19 02:00 79 22 140/72 (94) 100 11/29/19 01:00 73 15 122/63 (82) 98 11/29/19 00:00 Mechanical Ventilator Mechanical Ventilator Mechanical Ventilator 11/29/19 00:00 72 11/29/19 00:00 40 11/29/19 00:00 98.3 72 13 110/53 (72) 100 11/28/19 23:20 92 22 40 11/28/19 23:00 68 10 89/47 (61) 100 11/28/19 22:16 88 130/67 11/28/19 22:00 84 15 130/67 (88) 100 11/28/19 21:00 86 19 114/68 (83) 100 11/28/19 20:00 83 18 129/64 (85) 100 11/28/19 20:00 40 11/28/19 20:00 Mechanical Ventilator Mechanical Ventilator Mechanical Ventilator 11/28/19 20:00 83 11/28/19 19:49 130/67 11/28/19 19:24 87 15 40 11/28/19 19:00 94 19 134/76 (95) 100 11/28/19 18:36 118/57 11/28/19 18:00 88 16 118/57 (77) 100 11/28/19 17:00 99.1 91 17 137/60 (85) 99 11/28/19 16:00 93 20 134/76 (95) 99 11/28/19 16:00 40 11/28/19 16:00 Mechanical Ventilator Mechanical Ventilator Mechanical Ventilator 11/28/19 15:28 89 11/28/19 15:11 81 16 40 11/28/19 15:00 89 17 119/52 (74) 99 11/28/19 14:00 89 20 93/39 (57) 99 11/28/19 13:00 99.0 103 19 139/62 (87) 99 Intake and Output 11/28/19 11/29/19 19:00 07:00 Intake Total 755 ml 630 ml Output Total 455 ml 1300 ml Balance 300 ml -670 ml Free Water 100 ml 30 ml IV Total 55 ml Tube Feeding 600 ml 600 ml Output Urine Total 455 ml 1300 ml # Voids 1 # Bowel Movements 1 1 Laboratory Tests 11/29/19 05:00: White Blood Count 9.3, Red Blood Count 3.69L, Hemoglobin 9.7L, Hematocrit 33.1L , Mean Corpuscular Volume 90, Mean Corpuscular Hemoglobin 26.2L, Mean Corpuscular Hemoglobin Concent 29.2L, Red Cell Distribution Width 18.0H, Platelet Count 214, Mean Platelet Volume 6.9, Neutrophils (%) (Auto) , Lymphocytes (%) (Auto) , Monocytes (%) (Auto) , Eosinophils (%) (Auto) , Basophils (%) (Auto) , Differential Total Cells Counted 100, Neutrophils % ( Manual) 88H, Lymphocytes % (Manual) 7L, Monocytes % (Manual) 5, Eosinophils % ( Manual) 0, Basophils % (Manual) 0, Band Neutrophils 0, Platelet Estimate Adequate, Platelet Morphology Normal, Polychromasia 1+, Hypochromasia 1+, Anisocytosis 1+, Sodium Level 150H, Potassium Level 3.8, Chloride Level 112H, Carbon Dioxide Level 37H, Anion Gap 2L, Blood Urea Nitrogen 20H, Creatinine 0.8 , Estimat Glomerular Filtration Rate > 60, Glucose Level 158H, Calcium Level 8.4L, Phosphorus Level 1.9L, Magnesium Level 2.2, Total Bilirubin 0.7, Aspartate Amino Transf (AST/SGOT) 49H, Alanine Aminotransferase (ALT/SGPT) 32, Alkaline Phosphatase 178H, C-Reactive Protein, Quantitative 4.0H, Pro-B-Type Natriuretic Peptide 5450H, Total Protein 6.4, Albumin 1.9L, Globulin 4.5, Albumin/Globulin Ratio 0.4L 11/29/19 08:42: POC Whole Blood Glucose [Pending] 11/29/19 09:58: Arterial Blood pH 7.490H, Arterial Blood Partial Pressure CO2 45.1H, Arterial Blood Partial Pressure O2 308.7H, Arterial Blood HCO3 33.6H, Arterial Blood Oxygen Saturation 99.5, Arterial Blood Base Excess 9.2*H, Steve Test Positive Height (Feet): 5 Height (Inches): 1.00 Weight (Pounds): 300 General Appearance: no apparent distress EENT: other - Trach to vent Cardiovascular: regular rhythm Respiratory/Chest: decreased breath sounds Abdomen: distended Extremities: severe edema Papa Young MD Nov 29, 2019 12:42
--- NOTE | 2019-11-29 13:06 | Surgery Progress Note ---
Surgery Progress Note Subjective Procedure Performed tracheostomy Additional Comments labs noted exam stable on support no n/v Objective Last 24 Hour Vital Signs Date Time Temp Pulse Resp B/P (MAP) Pulse Ox O2 Delivery O2 Flow Rate FiO2 11/29/19 12:00 97.8 84 17 113/75 (88) 96 11/29/19 12:00 50 11/29/19 12:00 Mechanical Ventilator Mechanical Ventilator 11/29/19 11:00 68 17 116/74 (88) 93 11/29/19 10:45 76 22 70 11/29/19 10:09 80 125/79 11/29/19 10:00 86 18 125/79 (94) 91 11/29/19 10:00 50 11/29/19 09:15 90 11/29/19 09:00 85 19 130/65 (86) 98 11/29/19 08:00 70 11/29/19 08:00 83 19 135/73 (93) 97 11/29/19 08:00 Mechanical Ventilator Mechanical Ventilator 11/29/19 08:00 87 11/29/19 07:00 81 16 142/70 (94) 91 11/29/19 06:59 88 21 70 11/29/19 06:00 98.2 88 21 125/55 (78) 94 11/29/19 05:00 90 20 133/65 (87) 94 11/29/19 04:00 Mechanical Ventilator Mechanical Ventilator Mechanical Ventilator 11/29/19 04:00 40 11/29/19 04:00 83 20 132/60 (84) 93 11/29/19 04:00 83 11/29/19 03:35 79 16 40 11/29/19 03:00 80 19 137/65 (89) 11/29/19 02:00 79 22 140/72 (94) 100 11/29/19 01:00 73 15 122/63 (82) 98 11/29/19 00:00 Mechanical Ventilator Mechanical Ventilator Mechanical Ventilator 11/29/19 00:00 72 11/29/19 00:00 40 11/29/19 00:00 98.3 72 13 110/53 (72) 100 11/28/19 23:20 92 22 40 11/28/19 23:00 68 10 89/47 (61) 100 11/28/19 22:16 88 130/67 11/28/19 22:00 84 15 130/67 (88) 100 11/28/19 21:00 86 19 114/68 (83) 100 11/28/19 20:00 83 18 129/64 (85) 100 11/28/19 20:00 40 11/28/19 20:00 Mechanical Ventilator Mechanical Ventilator Mechanical Ventilator 11/28/19 20:00 83 11/28/19 19:49 130/67 11/28/19 19:24 87 15 40 11/28/19 19:00 94 19 134/76 (95) 100 11/28/19 18:36 118/57 11/28/19 18:00 88 16 118/57 (77) 100 11/28/19 17:00 99.1 91 17 137/60 (85) 99 11/28/19 16:00 93 20 134/76 (95) 99 11/28/19 16:00 40 11/28/19 16:00 Mechanical Ventilator Mechanical Ventilator Mechanical Ventilator 11/28/19 15:28 89 11/28/19 15:11 81 16 40 11/28/19 15:00 89 17 119/52 (74) 99 11/28/19 14:00 89 20 93/39 (57) 99 11/28/19 13:00 99.0 103 19 139/62 (87) 99 I&O Intake and Output 11/28/19 11/29/19 19:00 07:00 Intake Total 755 ml 630 ml Output Total 455 ml 1300 ml Balance 300 ml -670 ml Free Water 100 ml 30 ml IV Total 55 ml Tube Feeding 600 ml 600 ml Output Urine Total 455 ml 1300 ml # Voids 1 # Bowel Movements 1 1 Dressing: other Wound: other Drains: other Cardiovascular: RSR Respiratory: decreased breath sounds Abdomen: soft, non-tender, present bowel sounds Extremities: no cyanosis Laboratory Tests Test 11/29/19 05:00 11/29/19 08:42 11/29/19 09:58 White Blood Count 9.3 K/UL (4.8-10.8) Red Blood Count 3.69 M/UL (4.20-5.40) L Hemoglobin 9.7 G/DL (12.0-16.0) L Hematocrit 33.1 % (37.0-47.0) L Mean Corpuscular Volume 90 FL (80-99) Mean Corpuscular Hemoglobin 26.2 PG (27.0-31.0) L Mean Corpuscular Hemoglobin Concent 29.2 G/DL (32.0-36.0) L Red Cell Distribution Width 18.0 % (11.6-14.8) H Platelet Count 214 K/UL (150-450) Mean Platelet Volume 6.9 FL (6.5-10.1) Neutrophils (%) (Auto) % (45.0-75.0) Lymphocytes (%) (Auto) % (20.0-45.0) Monocytes (%) (Auto) % (1.0-10.0) Eosinophils (%) (Auto) % (0.0-3.0) Basophils (%) (Auto) % (0.0-2.0) Differential Total Cells Counted 100 Neutrophils % (Manual) 88 % (45-75) H Lymphocytes % (Manual) 7 % (20-45) L Monocytes % (Manual) 5 % (1-10) Eosinophils % (Manual) 0 % (0-3) Basophils % (Manual) 0 % (0-2) Band Neutrophils 0 % (0-8) Platelet Estimate Adequate Platelet Morphology Normal Polychromasia 1+ Hypochromasia 1+ Anisocytosis 1+ Sodium Level 150 MMOL/L (136-145) H Potassium Level 3.8 MMOL/L (3.5-5.1) Chloride Level 112 MMOL/L (98-107) H Carbon Dioxide Level 37 MMOL/L (21-32) H Anion Gap 2 mmol/L (5-15) L Blood Urea Nitrogen 20 mg/dL (7-18) H Creatinine 0.8 MG/DL (0.55-1.30) Estimat Glomerular Filtration Rate > 60 mL/min (>60) Glucose Level 158 MG/DL (74-106) H Calcium Level 8.4 MG/DL (8.5-10.1) L Phosphorus Level 1.9 MG/DL (2.5-4.9) L Magnesium Level 2.2 MG/DL (1.8-2.4) Total Bilirubin 0.7 MG/DL (0.2-1.0) Aspartate Amino Transf (AST/SGOT) 49 U/L (15-37) H Alanine Aminotransferase (ALT/SGPT) 32 U/L (12-78) Alkaline Phosphatase 178 U/L (46-116) H C-Reactive Protein, Quantitative 4.0 mg/dL (0.00-0.90) H Pro-B-Type Natriuretic Peptide 5450 pg/mL (0-125) H Total Protein 6.4 G/DL (6.4-8.2) Albumin 1.9 G/DL (3.4-5.0) L Globulin 4.5 g/dL Albumin/Globulin Ratio 0.4 (1.0-2.7) L POC Whole Blood Glucose Pending Arterial Blood pH 7.490 (7.350-7.450) Arterial Blood Partial Pressure CO2 45.1 mmHg (35.0-45.0) H Arterial Blood Partial Pressure O2 308.7 mmHg (75.0-100.0) H Arterial Blood HCO3 33.6 mmol/L (22.0-26.0) H Arterial Blood Oxygen Saturation 99.5 % (95-100) Arterial Blood Base Excess 9.2 (-2-2) *H Steve Test Positive Plan Problems: (1) Weak (2) UTI (urinary tract infection) (3) Hypoxia (4) Epistaxis Assessment & Plan: Severe after taxis left nostril Rhino Rocket placed hemostasis noted over the course 24 hours hemoglobin stable Lovenox been stopped. The balloon of both ports of the Rhino Rocket were deflated today. The rocket itself was not removed and will monitor over the course next 24 hours hemostasis. If so will gently remove and plan for local monitoring. Currently wean ventilator as tolerated. Goals of extubation when possible. deflated balloon 11/08 removed trumpet 11/09 will monitor for bleeding wean vent plan extubation discussed with pulm (5) Fluid overload Assessment & Plan: Continue central venous catheter for now. Will anticipate removal once patient stable for extubation. Thank you for allowing me to participate patient's care picc in line out (6) Diabetes (7) CHF (congestive heart failure) (8) Afib (9) Multifocal pneumonia (10) 2019 novel coronavirus disease (COVID-19) Assessment & Plan: + wean vent extubated failed reintubated consider trach plan trach 8/4 s/p trach comfortable (11) Respiratory failure Ortiz Fleming Nov 29, 2019 13:06
--- NOTE | 2019-11-29 14:24 | Cardiac Electrophysiology PN ---
Assessment/Plan Assessment/Plan 1. Paroxysmal atrial fibrillation. On metoprolol 25 bid and Amiodarone 400 daily Off anticoagulation for hematuria and black stool EF 55% on echo. 2. S/P Shock. Off pressors. 3. COVID positive pneumonia. 4. Diabetes, on insulin. 5. Respiratory failure on the Vent. S/P Tracheostomy 11/24/19 6. S/P Massive nasal bleed. 7. Severe LE edema. 8. Dysphagia, S/P PEG 11/25/19 DW RN Subjective Subjective Just transferred out of ICU on the vent with 35% Fio2. S/P tracheostomy and PEG 11/25/19 In atrial fib rate controlled on Lopressor 25 bid. Objective Last 24 Hour Vital Signs Date Time Temp Pulse Resp B/P (MAP) Pulse Ox O2 Delivery O2 Flow Rate FiO2 11/29/19 12:00 97.8 84 17 113/75 (88) 96 11/29/19 12:00 50 11/29/19 12:00 62 11/29/19 12:00 Mechanical Ventilator Mechanical Ventilator 11/29/19 11:00 68 17 116/74 (88) 93 11/29/19 10:45 76 22 70 11/29/19 10:09 80 125/79 11/29/19 10:00 86 18 125/79 (94) 91 11/29/19 10:00 50 11/29/19 09:15 90 11/29/19 09:00 85 19 130/65 (86) 98 11/29/19 08:00 70 11/29/19 08:00 83 19 135/73 (93) 97 11/29/19 08:00 Mechanical Ventilator Mechanical Ventilator 11/29/19 08:00 87 11/29/19 07:00 81 16 142/70 (94) 91 11/29/19 06:59 88 21 70 11/29/19 06:00 98.2 88 21 125/55 (78) 94 11/29/19 05:00 90 20 133/65 (87) 94 11/29/19 04:00 Mechanical Ventilator Mechanical Ventilator Mechanical Ventilator 11/29/19 04:00 40 11/29/19 04:00 83 20 132/60 (84) 93 11/29/19 04:00 83 11/29/19 03:35 79 16 40 11/29/19 03:00 80 19 137/65 (89) 11/29/19 02:00 79 22 140/72 (94) 100 11/29/19 01:00 73 15 122/63 (82) 98 11/29/19 00:00 Mechanical Ventilator Mechanical Ventilator Mechanical Ventilator 11/29/19 00:00 72 11/29/19 00:00 40 11/29/19 00:00 98.3 72 13 110/53 (72) 100 11/28/19 23:20 92 22 40 11/28/19 23:00 68 10 89/47 (61) 100 11/28/19 22:16 88 130/67 11/28/19 22:00 84 15 130/67 (88) 100 11/28/19 21:00 86 19 114/68 (83) 100 11/28/19 20:00 83 18 129/64 (85) 100 11/28/19 20:00 40 11/28/19 20:00 Mechanical Ventilator Mechanical Ventilator Mechanical Ventilator 11/28/19 20:00 83 11/28/19 19:49 130/67 11/28/19 19:24 87 15 40 11/28/19 19:00 94 19 134/76 (95) 100 11/28/19 18:36 118/57 11/28/19 18:00 88 16 118/57 (77) 100 11/28/19 17:00 99.1 91 17 137/60 (85) 99 11/28/19 16:00 93 20 134/76 (95) 99 11/28/19 16:00 40 11/28/19 16:00 Mechanical Ventilator Mechanical Ventilator Mechanical Ventilator 11/28/19 15:28 89 11/28/19 15:11 81 16 40 11/28/19 15:00 89 17 119/52 (74) 99 Intake and Output 11/28/19 11/29/19 19:00 07:00 Intake Total 755 ml 630 ml Output Total 455 ml 1300 ml Balance 300 ml -670 ml Free Water 100 ml 30 ml IV Total 55 ml Tube Feeding 600 ml 600 ml Output Urine Total 455 ml 1300 ml # Voids 1 # Bowel Movements 1 1 Laboratory Tests Test 11/29/19 05:00 11/29/19 08:42 11/29/19 09:58 White Blood Count 9.3 K/UL (4.8-10.8) Red Blood Count 3.69 M/UL (4.20-5.40) L Hemoglobin 9.7 G/DL (12.0-16.0) L Hematocrit 33.1 % (37.0-47.0) L Mean Corpuscular Volume 90 FL (80-99) Mean Corpuscular Hemoglobin 26.2 PG (27.0-31.0) L Mean Corpuscular Hemoglobin Concent 29.2 G/DL (32.0-36.0) L Red Cell Distribution Width 18.0 % (11.6-14.8) H Platelet Count 214 K/UL (150-450) Mean Platelet Volume 6.9 FL (6.5-10.1) Neutrophils (%) (Auto) % (45.0-75.0) Lymphocytes (%) (Auto) % (20.0-45.0) Monocytes (%) (Auto) % (1.0-10.0) Eosinophils (%) (Auto) % (0.0-3.0) Basophils (%) (Auto) % (0.0-2.0) Differential Total Cells Counted 100 Neutrophils % (Manual) 88 % (45-75) H Lymphocytes % (Manual) 7 % (20-45) L Monocytes % (Manual) 5 % (1-10) Eosinophils % (Manual) 0 % (0-3) Basophils % (Manual) 0 % (0-2) Band Neutrophils 0 % (0-8) Platelet Estimate Adequate Platelet Morphology Normal Polychromasia 1+ Hypochromasia 1+ Anisocytosis 1+ Sodium Level 150 MMOL/L (136-145) H Potassium Level 3.8 MMOL/L (3.5-5.1) Chloride Level 112 MMOL/L (98-107) H Carbon Dioxide Level 37 MMOL/L (21-32) H Anion Gap 2 mmol/L (5-15) L Blood Urea Nitrogen 20 mg/dL (7-18) H Creatinine 0.8 MG/DL (0.55-1.30) Estimat Glomerular Filtration Rate > 60 mL/min (>60) Glucose Level 158 MG/DL (74-106) H Calcium Level 8.4 MG/DL (8.5-10.1) L Phosphorus Level 1.9 MG/DL (2.5-4.9) L Magnesium Level 2.2 MG/DL (1.8-2.4) Total Bilirubin 0.7 MG/DL (0.2-1.0) Aspartate Amino Transf (AST/SGOT) 49 U/L (15-37) H Alanine Aminotransferase (ALT/SGPT) 32 U/L (12-78) Alkaline Phosphatase 178 U/L (46-116) H C-Reactive Protein, Quantitative 4.0 mg/dL (0.00-0.90) H Pro-B-Type Natriuretic Peptide 5450 pg/mL (0-125) H Total Protein 6.4 G/DL (6.4-8.2) Albumin 1.9 G/DL (3.4-5.0) L Globulin 4.5 g/dL Albumin/Globulin Ratio 0.4 (1.0-2.7) L POC Whole Blood Glucose Pending Arterial Blood pH 7.490 (7.350-7.450) Arterial Blood Partial Pressure CO2 45.1 mmHg (35.0-45.0) H Arterial Blood Partial Pressure O2 308.7 mmHg (75.0-100.0) H Arterial Blood HCO3 33.6 mmol/L (22.0-26.0) H Arterial Blood Oxygen Saturation 99.5 % (95-100) Arterial Blood Base Excess 9.2 (-2-2) *H Steve Test Positive Objective HEAD AND NECK: No JVD. OG tube. Tracheostomy in place. LUNGS: Coarse rhonchi. CARDIOVASCULAR: Irregularly irregular. S1 and S2 with no gallop or murmur. ABDOMEN: Soft.PEG EXTREMITIES: 2 plus pitting edema. Gabe Snell MD Nov 29, 2019 14:24
[2019-11-29] MEDS ORDERED: Tubing IV Secondary IV ONE (16:48)
[2019-11-29] MEDS ORDERED: DOPamine 400mg/250ml 250 ML IV SCH (18:36)
[2019-11-29] MEDS ORDERED: Norepinephrine 4mg/NS Premix 250 ML IV SCH (19:49)
[2019-11-29] MEDS ORDERED: Dyna-Hex 2% Top Sol 2oz TOPIC SCH (20:00)
[2019-11-29] MEDS ORDERED: Docusate 100mg/10ml Liq GT SCH (21:00)
--- NOTE | 2019-11-29 22:15 | Geriatric Medicine Prog Note ---
DATE: 11/29/2019 SUBJECTIVE: The patient is in step-down unit. She has improved diabetic control. OBJECTIVE: VITAL SIGNS: Stable. RESPIRATORY: Clear. CARDIOVASCULAR: Regular. LABORATORY DATA: Glucose 160. ASSESSMENT: Diabetes mellitus, stable. PLAN: Continue Levemir 12 units q.12 hours and Glucerna 1.2 50 cc/hrn per G- tube. Meet Wilson M.D. DR: VENKATA JOB#: [id number] CC: GRECIA
[2019-11-30] VITALS: BP 104/60
[2019-11-30] MEDS: Cefepime HCl 2 GM in D5W 55 ML IVPB SCH ×3 (00:29→23:00)
[2019-11-30] MEDS: NovoLOG Insulin Flexpen SUBQ SCH ×5 (00:48→23:07)
[2019-11-30 04:00] VITALS: BP 106/65
[2019-11-30 05:05] LABS: HEMATOCRIT 30.1 % (37.0-47.0); HEMOGLOBIN 8.9 G/DL (12.0-16.0); MEAN CORPUSCULAR VOLUME 89 FL (80-99); PLATELET COUNT 225 K/UL (150-450); RED BLOOD COUNT 3.38 M/UL (4.20-5.40); WHITE BLOOD COUNT 8.1 K/UL (4.8-10.8)
[2019-11-30 05:14] LABS: ANION GAP -1 mmol/L (5-15); BLOOD UREA NITROGEN 18 mg/dL (7-18); CALCIUM 8.1 MG/DL (8.5-10.1); CARBON DIOXIDE 37 MMOL/L (21-32); CHLORIDE 114 MMOL/L (98-107); CREATININE 0.6 MG/DL (0.55-1.30); POTASSIUM 3.9 MMOL/L (3.5-5.1); SODIUM 150 MMOL/L (136-145)
--- NOTE | 2019-11-30 06:36 | General Progress Note ---
Assessment/Plan Problem List: (1) Hypoxia ICD Codes: R09.02 - Hypoxemia SNOMED: 554410707 (2) CHF (congestive heart failure) ICD Codes: I50.9 - Heart failure, unspecified SNOMED: 48159583 (3) Diabetes ICD Codes: E11.9 - Type 2 diabetes mellitus without complications SNOMED: 65509638 (4) Fluid overload ICD Codes: E87.70 - Fluid overload, unspecified SNOMED: 05498534 (5) 2019 novel coronavirus disease (COVID-19) ICD Codes: U07.1 - COVID-19 SNOMED: 983108553 Status: unchanged Assessment/Plan: continue Levemir 12 units bid - half dose while TF is off continue Novolog sliding scale every 6 hours hypoglycemia protocol in order repeat thyroid function improved - no need for thyroid medication Subjective Allergies: Coded Allergies: No Known Allergies (Unverified , 11/06/19) Subjective events noted glucose values are stable Item Value Date Time Bedside Blood Glucose 102 mg/dl 11/30/19 0600 Bedside Blood Glucose 151 mg/dl H 11/30/19 0048 Bedside Blood Glucose 135 mg/dl H 11/29/19 1800 Bedside Blood Glucose 131 mg/dl H 11/29/19 1200 Bedside Blood Glucose 119 mg/dl 11/29/19 0958 Bedside Blood Glucose 160 mg/dl H 11/29/19 0600 Bedside Blood Glucose 155 mg/dl H 11/29/19 0000 Objective Last 24 Hour Vital Signs Date Time Temp Pulse Resp B/P (MAP) Pulse Ox O2 Delivery O2 Flow Rate FiO2 11/30/19 04:00 50 11/30/19 04:00 Mechanical Ventilator Mechanical Ventilator 11/30/19 04:00 98.5 75 16 106/65 (79) 96 11/30/19 03:28 86 11/30/19 03:12 82 22 50 11/30/19 00:00 Mechanical Ventilator Mechanical Ventilator 11/30/19 00:00 98.9 77 16 104/60 (75) 94 11/29/19 23:30 96 11/29/19 23:30 88 20 50 11/29/19 20:27 77 114/59 11/29/19 20:00 50 11/29/19 20:00 Mechanical Ventilator Mechanical Ventilator 11/29/19 20:00 98.5 74 16 108/49 (68) 95 11/29/19 19:30 74 18 70 11/29/19 19:03 77 11/29/19 16:00 98.5 74 16 108/49 (68) 95 11/29/19 16:00 50 11/29/19 16:00 75 11/29/19 15:59 Mechanical Ventilator Mechanical Ventilator 11/29/19 15:05 77 19 70 11/29/19 12:00 97.8 84 17 113/75 (88) 96 11/29/19 12:00 50 11/29/19 12:00 62 11/29/19 12:00 Mechanical Ventilator Mechanical Ventilator 11/29/19 11:00 68 17 116/74 (88) 93 11/29/19 10:45 76 22 70 11/29/19 10:09 80 125/79 11/29/19 10:00 86 18 125/79 (94) 91 11/29/19 10:00 50 11/29/19 09:15 90 11/29/19 09:00 85 19 130/65 (86) 98 11/29/19 08:00 70 11/29/19 08:00 83 19 135/73 (93) 97 11/29/19 08:00 Mechanical Ventilator Mechanical Ventilator 11/29/19 08:00 87 11/29/19 07:00 81 16 142/70 (94) 91 11/29/19 06:59 88 21 70 Intake and Output 11/29/19 11/30/19 19:00 07:00 Intake Total 1127 ml 685 ml Output Total 875 ml 510 ml Balance 252 ml 175 ml Free Water 90 ml 80 ml IV Total 337 ml 55 ml Tube Feeding 600 ml 550 ml Other 100 ml Output Urine Total 875 ml 450 ml Stool Total 60 ml # Bowel Movements 31 Laboratory Tests 11/29/19 08:42: POC Whole Blood Glucose [Pending] 11/29/19 09:58: Arterial Blood pH 7.490H, Arterial Blood Partial Pressure CO2 45.1H, Arterial Blood Partial Pressure O2 308.7H, Arterial Blood HCO3 33.6H, Arterial Blood Oxygen Saturation 99.5, Arterial Blood Base Excess 9.2*H, Steve Test Positive 11/29/19 16:26: POC Whole Blood Glucose 135H 11/30/19 00:32: POC Whole Blood Glucose [Pending] 11/30/19 03:43: White Blood Count 8.1, Red Blood Count 3.38L, Hemoglobin 8.9L, Hematocrit 30.1L , Mean Corpuscular Volume 89, Mean Corpuscular Hemoglobin 26.4L, Mean Corpuscular Hemoglobin Concent 29.6L, Red Cell Distribution Width 18.0H, Platelet Count 225, Mean Platelet Volume 6.7, Neutrophils (%) (Auto) , Lymphocytes (%) (Auto) , Monocytes (%) (Auto) , Eosinophils (%) (Auto) , Basophils (%) (Auto) , Neutrophils % (Manual) [Pending], Lymphocytes % (Manual) [Pending], Platelet Estimate [Pending], Platelet Morphology [Pending], Sodium Level 150H, Potassium Level 3.9, Chloride Level 114H, Carbon Dioxide Level 37H, Anion Gap -1L, Blood Urea Nitrogen 18, Creatinine 0.6, Estimat Glomerular Filtration Rate > 60, Glucose Level 130H, Calcium Level 8.1L 11/30/19 05:39: POC Whole Blood Glucose 102 Height (Feet): 5 Height (Inches): 1.00 Weight (Pounds): 300 Objective Current Medications Medications (Trade) Dose Ordered Sig/Robyn Route PRN Reason Start Time Stop Time Status Last Admin Dose Admin Acetaminophen (Tylenol) 650 mg Q6H PRN GT Temp >100.5 11/29/19 15:00 12/12/19 14:59 Amiodarone HCl (Cordarone) 400 mg DAILY GT 11/30/19 09:00 02/18/20 09:29 Cefepime HCl 2 gm/ Dextrose 55 ml @ 110 mls/hr Q12H IVPB 11/30/19 00:00 12/02/19 11:59 11/30/19 00:29 Chlorhexidine Gluconate (Miya-Hex 2%) 1 applic DAILY@2000 TOPIC 11/29/19 20:00 02/06/20 21:29 11/29/19 20:28 Clonidine HCl (Catapres Tab) 0.1 mg Q4H PRN GT For High Blood Pressure 11/29/19 14:30 02/09/20 14:29 Dextrose (Dextrose 50%) 25 ml Q30M PRN IV Hypoglycemia 11/29/19 14:15 02/21/20 06:44 Dextrose (Dextrose 50%) 50 ml Q30M PRN IV Hypoglycemia 11/29/19 14:15 02/21/20 06:44 Docusate Sodium (Colace) 100 mg EVERY 12 HOURS GT 11/29/19 21:00 12/23/19 08:59 Famotidine (Pepcid) 20 mg BID GT 11/29/19 18:00 02/26/20 17:59 11/29/19 17:22 Folic Acid (Folate) 2 mg DAILY GT 11/30/19 09:00 12/15/19 08:59 Insulin Aspart (NovoLOG) EVERY 6 HOURS SUBQ 11/29/19 18:00 02/11/20 20:59 11/30/19 00:48 Insulin Detemir (Levemir) 12 units BID SUBQ 11/29/19 18:00 02/21/20 08:59 11/29/19 17:31 Lorazepam (Ativan 2mg/ml 1ml) 2 mg Q3H PRN IV For Anxiety 11/29/19 15:30 12/03/19 15:29 Metolazone (Zaroxolyn) 2.5 mg DAILY GT 11/30/19 09:00 12/28/19 09:29 Metoprolol Tartrate (Lopressor) 25 mg Q12HR GT 11/29/19 21:00 02/18/20 09:29 11/29/19 20:27 Alphonse Ojeda MD Nov 30, 2019 06:36
--- NOTE | 2019-11-30 06:46 | General Progress Note ---
Assessment/Plan Problem List: (1) Respiratory failure ICD Codes: J96.90 - Respiratory failure, unspecified, unspecified whether with hypoxia or hypercapnia SNOMED: 443019103 (2) 2019 novel coronavirus disease (COVID-19) ICD Codes: U07.1 - COVID-19 SNOMED: 355820231 (3) Multifocal pneumonia ICD Codes: J18.9 - Pneumonia, unspecified organism SNOMED: 561116491 (4) Afib ICD Codes: I48.91 - Unspecified atrial fibrillation SNOMED: 61082752 (5) CHF (congestive heart failure) ICD Codes: I50.9 - Heart failure, unspecified SNOMED: 26391017 (6) Diabetes ICD Codes: E11.9 - Type 2 diabetes mellitus without complications SNOMED: 51458142 (7) Fluid overload ICD Codes: E87.70 - Fluid overload, unspecified SNOMED: 17165951 (8) Epistaxis ICD Codes: R04.0 - Epistaxis SNOMED: 296195761 Status: unchanged Assessment/Plan: fu H&H prn blood transfusion slow drop in H&H withoit obvious bleeding repeat stool ob GTF on colace >>>will dc given loose stools patient has rectal tube will fu Subjective ROS Limited/Unobtainable: No Allergies: Coded Allergies: No Known Allergies (Unverified , 11/06/19) Objective Last 24 Hour Vital Signs Date Time Temp Pulse Resp B/P (MAP) Pulse Ox O2 Delivery O2 Flow Rate FiO2 11/30/19 04:00 50 11/30/19 04:00 Mechanical Ventilator Mechanical Ventilator 11/30/19 04:00 98.5 75 16 106/65 (79) 96 11/30/19 03:28 86 11/30/19 03:12 82 22 50 11/30/19 00:00 Mechanical Ventilator Mechanical Ventilator 11/30/19 00:00 98.9 77 16 104/60 (75) 94 11/29/19 23:30 96 11/29/19 23:30 88 20 50 11/29/19 20:27 77 114/59 11/29/19 20:00 50 11/29/19 20:00 Mechanical Ventilator Mechanical Ventilator 11/29/19 20:00 98.5 74 16 108/49 (68) 95 11/29/19 19:30 74 18 70 11/29/19 19:03 77 8/9/20 16:00 98.5 74 16 108/49 (68) 95 11/29/19 16:00 50 11/29/19 16:00 75 11/29/19 15:59 Mechanical Ventilator Mechanical Ventilator 11/29/19 15:05 77 19 70 11/29/19 12:00 97.8 84 17 113/75 (88) 96 11/29/19 12:00 50 11/29/19 12:00 62 11/29/19 12:00 Mechanical Ventilator Mechanical Ventilator 11/29/19 11:00 68 17 116/74 (88) 93 11/29/19 10:45 76 22 70 11/29/19 10:09 80 125/79 11/29/19 10:00 86 18 125/79 (94) 91 11/29/19 10:00 50 11/29/19 09:15 90 11/29/19 09:00 85 19 130/65 (86) 98 11/29/19 08:00 70 11/29/19 08:00 83 19 135/73 (93) 97 11/29/19 08:00 Mechanical Ventilator Mechanical Ventilator 11/29/19 08:00 87 11/29/19 07:00 81 16 142/70 (94) 91 11/29/19 06:59 88 21 70 Intake and Output 11/29/19 11/30/19 19:00 07:00 Intake Total 1127 ml 685 ml Output Total 875 ml 510 ml Balance 252 ml 175 ml Free Water 90 ml 80 ml IV Total 337 ml 55 ml Tube Feeding 600 ml 550 ml Other 100 ml Output Urine Total 875 ml 450 ml Stool Total 60 ml # Bowel Movements 31 Laboratory Tests 11/29/19 08:42: POC Whole Blood Glucose [Pending] 11/29/19 09:58: Arterial Blood pH 7.490H, Arterial Blood Partial Pressure CO2 45.1H, Arterial Blood Partial Pressure O2 308.7H, Arterial Blood HCO3 33.6H, Arterial Blood Oxygen Saturation 99.5, Arterial Blood Base Excess 9.2*H, Steve Test Positive 11/29/19 16:26: POC Whole Blood Glucose 135H 11/30/19 00:32: POC Whole Blood Glucose [Pending] 11/30/19 03:43: White Blood Count 8.1, Red Blood Count 3.38L, Hemoglobin 8.9L, Hematocrit 30.1L , Mean Corpuscular Volume 89, Mean Corpuscular Hemoglobin 26.4L, Mean Corpuscular Hemoglobin Concent 29.6L, Red Cell Distribution Width 18.0H, Platelet Count 225, Mean Platelet Volume 6.7, Neutrophils (%) (Auto) , Lymphocytes (%) (Auto) , Monocytes (%) (Auto) , Eosinophils (%) (Auto) , Basophils (%) (Auto) , Neutrophils % (Manual) [Pending], Lymphocytes % (Manual) [Pending], Platelet Estimate [Pending], Platelet Morphology [Pending], Sodium Level 150H, Potassium Level 3.9, Chloride Level 114H, Carbon Dioxide Level 37H, Anion Gap -1L, Blood Urea Nitrogen 18, Creatinine 0.6, Estimat Glomerular Filtration Rate > 60, Glucose Level 130H, Calcium Level 8.1L 11/30/19 05:39: POC Whole Blood Glucose 102 Height (Feet): 5 Height (Inches): 1.00 Weight (Pounds): 300 General Appearance: no apparent distress EENT: PERRL/EOMI Neck: supple Cardiovascular: normal rate Respiratory/Chest: decreased breath sounds Abdomen: normal bowel sounds, non tender, soft Extremities: non-tender Case Patel MD Nov 30, 2019 06:45
[2019-11-30 08:00] VITALS: BP 111/56
[2019-11-30] MEDS: metOLazone 2.5 MG TAB GT SCH (08:30)
[2019-11-30] MEDS: Amiodarone 200mg tab GT SCH (08:31)
[2019-11-30 09:14] LABS: ALANINE AMINOTRANSFERASE 32 U/L (12-78); ALBUMIN 1.7 G/DL (3.4-5.0); ALKALINE PHOSPHATASE 149 U/L (46-116); ASPARTATE AMINO TRANSFERASE 48 U/L (15-37); BILIRUBIN,DIRECT 0.3 MG/DL (0.0-0.3); BILIRUBIN,TOTAL 0.5 MG/DL (0.2-1.0); PHOSPHORUS 2.5 MG/DL (2.5-4.9)
[2019-11-30] MEDS: Levemir Flexpen SUBQ SCH ×2 (09:31→17:34)
--- NOTE | 2019-11-30 09:43 | General Progress Note ---
Assessment/Plan Problem List: (1) Afib ICD Codes: I48.91 - Unspecified atrial fibrillation SNOMED: 39500559 (2) Epistaxis ICD Codes: R04.0 - Epistaxis SNOMED: 016226373 (3) Weak ICD Codes: R53.1 - Weakness SNOMED: 44422188 (4) UTI (urinary tract infection) ICD Codes: N39.0 - Urinary tract infection, site not specified SNOMED: 14566987 (5) Diabetes ICD Codes: E11.9 - Type 2 diabetes mellitus without complications SNOMED: 37181707 (6) CHF (congestive heart failure) ICD Codes: I50.9 - Heart failure, unspecified SNOMED: 84643679 (7) Multifocal pneumonia ICD Codes: J18.9 - Pneumonia, unspecified organism SNOMED: 041139940 (8) 2019 novel coronavirus disease (COVID-19) ICD Codes: U07.1 - COVID-19 SNOMED: 685441149 (9) Respiratory failure ICD Codes: J96.90 - Respiratory failure, unspecified, unspecified whether with hypoxia or hypercapnia SNOMED: 250488378 Status: unchanged Assessment/Plan: vent abx bp bs control cbc bmp am Subjective Constitutional: Reports: weakness Allergies: Coded Allergies: No Known Allergies (Unverified , 11/06/19) All Systems: reviewed and negative except above Subjective trach vent altered Objective Last 24 Hour Vital Signs Date Time Temp Pulse Resp B/P (MAP) Pulse Ox O2 Delivery O2 Flow Rate FiO2 11/30/19 08:40 87 111/56 11/30/19 08:00 45 11/30/19 08:00 98.3 87 16 111/56 (74) 97 11/30/19 07:12 85 19 45 11/30/19 04:00 50 11/30/19 04:00 Mechanical Ventilator Mechanical Ventilator 11/30/19 04:00 98.5 75 16 106/65 (79) 96 11/30/19 03:28 86 11/30/19 03:12 82 22 50 11/30/19 00:00 Mechanical Ventilator Mechanical Ventilator 11/30/19 00:00 98.9 77 16 104/60 (75) 94 11/29/19 23:30 96 11/29/19 23:30 88 20 50 11/29/19 20:27 77 114/59 11/29/19 20:00 50 11/29/19 20:00 Mechanical Ventilator Mechanical Ventilator 11/29/19 20:00 98.5 74 16 108/49 (68) 95 11/29/19 19:30 74 18 70 11/29/19 19:03 77 11/29/19 16:00 98.5 74 16 108/49 (68) 95 11/29/19 16:00 50 11/29/19 16:00 75 11/29/19 15:59 Mechanical Ventilator Mechanical Ventilator 11/29/19 15:05 77 19 70 11/29/19 12:00 97.8 84 17 113/75 (88) 96 11/29/19 12:00 50 11/29/19 12:00 62 11/29/19 12:00 Mechanical Ventilator Mechanical Ventilator 11/29/19 11:00 68 17 116/74 (88) 93 11/29/19 10:45 76 22 70 11/29/19 10:09 80 125/79 11/29/19 10:00 86 18 125/79 (94) 91 11/29/19 10:00 50 Intake and Output 11/29/19 11/30/19 19:00 07:00 Intake Total 1127 ml 685 ml Output Total 875 ml 510 ml Balance 252 ml 175 ml Free Water 90 ml 80 ml IV Total 337 ml 55 ml Tube Feeding 600 ml 550 ml Other 100 ml Output Urine Total 875 ml 450 ml Stool Total 60 ml # Bowel Movements 31 Laboratory Tests 11/29/19 09:58: Arterial Blood pH 7.490H, Arterial Blood Partial Pressure CO2 45.1H, Arterial Blood Partial Pressure O2 308.7H, Arterial Blood HCO3 33.6H, Arterial Blood Oxygen Saturation 99.5, Arterial Blood Base Excess 9.2*H, Steve Test Positive 11/29/19 16:26: POC Whole Blood Glucose 135H 11/30/19 00:32: POC Whole Blood Glucose [Pending] 11/30/19 03:43: White Blood Count 8.1, Red Blood Count 3.38L, Hemoglobin 8.9L, Hematocrit 30.1L , Mean Corpuscular Volume 89, Mean Corpuscular Hemoglobin 26.4L, Mean Corpuscular Hemoglobin Concent 29.6L, Red Cell Distribution Width 18.0H, Platelet Count 225, Mean Platelet Volume 6.7, Neutrophils (%) (Auto) , Lymphocytes (%) (Auto) , Monocytes (%) (Auto) , Eosinophils (%) (Auto) , Basophils (%) (Auto) , Differential Total Cells Counted 100, Neutrophils % ( Manual) 85H, Lymphocytes % (Manual) 5L, Monocytes % (Manual) 7, Eosinophils % ( Manual) 1, Basophils % (Manual) 0, Band Neutrophils 2, Platelet Estimate Adequate, Platelet Morphology Normal, Hypochromasia 1+, Anisocytosis 2+, Sodium Level 150H, Potassium Level 3.9, Chloride Level 114H, Carbon Dioxide Level 37H, Anion Gap -1L, Blood Urea Nitrogen 18, Creatinine 0.6, Estimat Glomerular Filtration Rate > 60, Glucose Level 130H, Calcium Level 8.1L, Phosphorus Level 2.5, Magnesium Level 2.2, Total Bilirubin 0.5, Direct Bilirubin 0.3, Aspartate Amino Transf (AST/SGOT) 48H, Alanine Aminotransferase (ALT/SGPT) 32, Alkaline Phosphatase 149H, Total Protein 5.8L, Albumin 1.7L 11/30/19 05:39: POC Whole Blood Glucose 102 Height (Feet): 5 Height (Inches): 1.00 Weight (Pounds): 326 General Appearance: lethargic EENT: normal ENT inspection Neck: normal alignment Cardiovascular: normal rate, regular rhythm Respiratory/Chest: no respiratory distress, no accessory muscle use Extremities: normal inspection Skin: normal pigmentation Gustabo Carter DO Nov 30, 2019 09:43
--- NOTE | 2019-11-30 10:43 | Pulmonology Progress Note ---
Subjective ROS Limited/Unobtainable: No Interval Events: Re-intubated on 11/19/19; Status post tracheostomy 11/24/2019 Constitutional: Denies: fever HEENT: Repors: no symptoms Respiratory: Reports: dry cough, shortness of breath Cardiovascular: Reports: no symptoms Gastrointestinal/Abdominal: Reports: no symptoms Allergies: Coded Allergies: No Known Allergies (Unverified , 11/06/19) All Systems: reviewed and negative except above Objective Last 24 Hour Vital Signs Date Time Temp Pulse Resp B/P (MAP) Pulse Ox O2 Delivery O2 Flow Rate FiO2 11/30/19 08:40 87 111/56 11/30/19 08:00 45 11/30/19 08:00 Mechanical Ventilator Mechanical Ventilator 11/30/19 08:00 98.3 87 16 111/56 (74) 97 11/30/19 08:00 90 11/30/19 07:12 85 19 45 11/30/19 04:00 50 11/30/19 04:00 Mechanical Ventilator Mechanical Ventilator 11/30/19 04:00 98.5 75 16 106/65 (79) 96 11/30/19 03:28 86 11/30/19 03:12 82 22 50 11/30/19 00:00 Mechanical Ventilator Mechanical Ventilator 11/30/19 00:00 98.9 77 16 104/60 (75) 94 11/29/19 23:30 96 11/29/19 23:30 88 20 50 11/29/19 20:27 77 114/59 11/29/19 20:00 50 11/29/19 20:00 Mechanical Ventilator Mechanical Ventilator 11/29/19 20:00 98.5 74 16 108/49 (68) 95 11/29/19 19:30 74 18 70 11/29/19 19:03 77 11/29/19 16:00 98.5 74 16 108/49 (68) 95 11/29/19 16:00 50 11/29/19 16:00 75 11/29/19 15:59 Mechanical Ventilator Mechanical Ventilator 11/29/19 15:05 77 19 70 11/29/19 12:00 97.8 84 17 113/75 (88) 96 11/29/19 12:00 50 11/29/19 12:00 62 11/29/19 12:00 Mechanical Ventilator Mechanical Ventilator 11/29/19 11:00 68 17 116/74 (88) 93 11/29/19 10:45 76 22 70 Intake and Output 11/29/19 11/30/19 19:00 07:00 Intake Total 1127 ml 685 ml Output Total 875 ml 510 ml Balance 252 ml 175 ml Free Water 90 ml 80 ml IV Total 337 ml 55 ml Tube Feeding 600 ml 550 ml Other 100 ml Output Urine Total 875 ml 450 ml Stool Total 60 ml # Bowel Movements 31 General Appearance: no acute distress HEENT: normocephalic, status post trach Respiratory: decreased breath sounds Cardiovascular: normal peripheral pulses Abdomen: normal bowel sounds Extremities: no cyanosis Laboratory Tests 11/29/19 16:26: POC Whole Blood Glucose 135H 11/30/19 00:32: POC Whole Blood Glucose [Pending] 11/30/19 03:43: White Blood Count 8.1, Red Blood Count 3.38L, Hemoglobin 8.9L, Hematocrit 30.1L , Mean Corpuscular Volume 89, Mean Corpuscular Hemoglobin 26.4L, Mean Corpuscular Hemoglobin Concent 29.6L, Red Cell Distribution Width 18.0H, Platelet Count 225, Mean Platelet Volume 6.7, Neutrophils (%) (Auto) , Lymphocytes (%) (Auto) , Monocytes (%) (Auto) , Eosinophils (%) (Auto) , Basophils (%) (Auto) , Differential Total Cells Counted 100, Neutrophils % ( Manual) 85H, Lymphocytes % (Manual) 5L, Monocytes % (Manual) 7, Eosinophils % ( Manual) 1, Basophils % (Manual) 0, Band Neutrophils 2, Platelet Estimate Adequate, Platelet Morphology Normal, Hypochromasia 1+, Anisocytosis 2+, Sodium Level 150H, Potassium Level 3.9, Chloride Level 114H, Carbon Dioxide Level 37H, Anion Gap -1L, Blood Urea Nitrogen 18, Creatinine 0.6, Estimat Glomerular Filtration Rate > 60, Glucose Level 130H, Calcium Level 8.1L, Phosphorus Level 2.5, Magnesium Level 2.2, Total Bilirubin 0.5, Direct Bilirubin 0.3, Aspartate Amino Transf (AST/SGOT) 48H, Alanine Aminotransferase (ALT/SGPT) 32, Alkaline Phosphatase 149H, Total Protein 5.8L, Albumin 1.7L 11/30/19 05:39: POC Whole Blood Glucose 102 Current Medications Medications (Trade) Dose Ordered Sig/Robyn Route PRN Reason Start Time Stop Time Status Last Admin Dose Admin Acetaminophen (Tylenol) 650 mg Q6H PRN GT Temp >100.5 11/29/19 15:00 12/12/19 14:59 Amiodarone HCl (Cordarone) 400 mg DAILY GT 11/30/19 09:00 02/18/20 09:29 11/30/19 08:31 Cefepime HCl 2 gm/ Dextrose 55 ml @ 110 mls/hr Q12H IVPB 11/30/19 00:00 12/02/19 11:59 11/30/19 00:29 Chlorhexidine Gluconate (Miya-Hex 2%) 1 applic DAILY@2000 TOPIC 11/29/19 20:00 02/06/20 21:29 11/29/19 20:28 Clonidine HCl (Catapres Tab) 0.1 mg Q4H PRN GT For High Blood Pressure 11/29/19 14:30 02/09/20 14:29 Dextrose (Dextrose 50%) 25 ml Q30M PRN IV Hypoglycemia 11/29/19 14:15 02/21/20 06:44 Dextrose (Dextrose 50%) 50 ml Q30M PRN IV Hypoglycemia 11/29/19 14:15 02/21/20 06:44 Famotidine (Pepcid) 20 mg BID GT 11/29/19 18:00 02/26/20 17:59 11/30/19 08:30 Folic Acid (Folate) 2 mg DAILY GT 11/30/19 09:00 12/15/19 08:59 11/30/19 08:31 Insulin Aspart (NovoLOG) EVERY 6 HOURS SUBQ 11/29/19 18:00 02/11/20 20:59 11/30/19 00:48 Insulin Detemir (Levemir) 12 units BID SUBQ 11/29/19 18:00 02/21/20 08:59 11/30/19 09:31 Lorazepam (Ativan 2mg/ml 1ml) 2 mg Q3H PRN IV For Anxiety 11/29/19 15:30 12/03/19 15:29 Metolazone (Zaroxolyn) 2.5 mg DAILY GT 11/30/19 09:00 12/28/19 09:29 11/30/19 08:30 Metoprolol Tartrate (Lopressor) 25 mg Q12HR GT 11/29/19 21:00 02/18/20 09:29 11/30/19 08:40 Assessment/Plan Assessment/Plan IMPRESSION: 1. COVID-19 pneumonia. 2. Diabetes mellitus and hypertension. 3. Lactic acidemia. 4. Epistaxis 5. Respiratory failure; failed extubation 6. S/p trach/PEG DISCUSSION: Careful and close monitoring. Continue medications status post tracheostomy Begin weaning; trach collar S/p PEG no longer on Lasix I will follow carefully Dc planning to sub-acute Lakeisha Zavaleta Omar Syed MD Nov 30, 2019 10:42
--- NOTE | 2019-11-30 10:55 | Nephrology Progress Note ---
Assessment/Plan Problem List: (1) Electrolyte imbalance (2) Diabetes (3) 2019 novel coronavirus disease (COVID-19) (4) Respiratory failure Assessment 1. COVID-19 pneumonia. 2. Diabetes and hyperglycemia 3. Hypertension. 4. Hypoxic respiratory failure 5. Morbid obesity with BMI of 65.5 6. Nasal bleeding 7. Lactic acidosis 8. Hyperkalemia Plan November 29: Lab reviewed. Renal parameters stable. Continue per consultants. November 28: Lab reviewed. Phosphorus supplement given. Discussed with RN. Continue to monitor renal parameters. November 27: Lab reviewed. Serum sodium improved. Will start low-dose Zaroxolyn. Change IV Pepcid to GT route. Remains full code. Monitor renal parameters and electrolytes. November 26: Lab reviewed. Serum sodium elevated. 500 cc D5W bolus given. Potassium supplement given. Patient remains full code. Continue per consultants. November 25: Lab reviewed. Patient has trach connected to vent. Patient also has PEG. Continue per consultants. Medication list reviewed. November 24: Lab reviewed. Potassium IV given. Has tracheostomy to vent. Has PEG. Continue per consultants. November 23: Labs reviewed. Creatinine higher to 1.4. Due for trach today. Suggest to stop IV Lasix. November 22: Renal parameters stable. Medication list reviewed. Continue same management per consultants. November 21: Renal parameters stable. On IV Lasix. Edematous. Will order few doses of albumin 25%. Continue per consultants. November 20: Repeat serum potassium again normal. Renal parameters normal. Continue per consultants. November 19: Repeat serum potassium normal. Renal parameters within normal limit. Continue per consultants. November 18: Levemir stopped since IV fluid and dexamethasone are discontinued and patient blood sugar went down. Renal parameters are stable. Continues to be on ventilator. Previously: Renal parameters stable Weaning is being attempted patient's urine output is low. We will give a trial of albumin and Lasix, As needed Discussed with RN Stop IV to D5W 75 cc an hour Levemir 20 units subcu every 12 hours Kayexalate for high potassium as needed Monitor electrolytes and renal parameters Tight blood sugar control, long-acting insulin as needed Keep the blood pressure in check Per orders Subjective ROS Limited/Unobtainable: Yes Objective Objective Last 24 Hour Vital Signs Date Time Temp Pulse Resp B/P (MAP) Pulse Ox O2 Delivery O2 Flow Rate FiO2 11/30/19 08:40 87 111/56 11/30/19 08:00 45 11/30/19 08:00 Mechanical Ventilator Mechanical Ventilator 11/30/19 08:00 98.3 87 16 111/56 (74) 97 11/30/19 08:00 90 11/30/19 07:12 85 19 45 11/30/19 04:00 50 11/30/19 04:00 Mechanical Ventilator Mechanical Ventilator 11/30/19 04:00 98.5 75 16 106/65 (79) 96 11/30/19 03:28 86 11/30/19 03:12 82 22 50 11/30/19 00:00 Mechanical Ventilator Mechanical Ventilator 11/30/19 00:00 98.9 77 16 104/60 (75) 94 11/29/19 23:30 96 11/29/19 23:30 88 20 50 11/29/19 20:27 77 114/59 11/29/19 20:00 50 11/29/19 20:00 Mechanical Ventilator Mechanical Ventilator 11/29/19 20:00 98.5 74 16 108/49 (68) 95 11/29/19 19:30 74 18 70 11/29/19 19:03 77 11/29/19 16:00 98.5 74 16 108/49 (68) 95 11/29/19 16:00 50 11/29/19 16:00 75 11/29/19 15:59 Mechanical Ventilator Mechanical Ventilator 11/29/19 15:05 77 19 70 11/29/19 12:00 97.8 84 17 113/75 (88) 96 11/29/19 12:00 50 11/29/19 12:00 62 11/29/19 12:00 Mechanical Ventilator Mechanical Ventilator 11/29/19 11:00 68 17 116/74 (88) 93 Intake and Output 11/29/19 11/30/19 19:00 07:00 Intake Total 1127 ml 685 ml Output Total 875 ml 510 ml Balance 252 ml 175 ml Free Water 90 ml 80 ml IV Total 337 ml 55 ml Tube Feeding 600 ml 550 ml Other 100 ml Output Urine Total 875 ml 450 ml Stool Total 60 ml # Bowel Movements 31 Laboratory Tests 11/29/19 16:26: POC Whole Blood Glucose 135H 11/30/19 00:32: POC Whole Blood Glucose [Pending] 11/30/19 03:43: White Blood Count 8.1, Red Blood Count 3.38L, Hemoglobin 8.9L, Hematocrit 30.1L , Mean Corpuscular Volume 89, Mean Corpuscular Hemoglobin 26.4L, Mean Corpuscular Hemoglobin Concent 29.6L, Red Cell Distribution Width 18.0H, Platelet Count 225, Mean Platelet Volume 6.7, Neutrophils (%) (Auto) , Lymphocytes (%) (Auto) , Monocytes (%) (Auto) , Eosinophils (%) (Auto) , Basophils (%) (Auto) , Differential Total Cells Counted 100, Neutrophils % ( Manual) 85H, Lymphocytes % (Manual) 5L, Monocytes % (Manual) 7, Eosinophils % ( Manual) 1, Basophils % (Manual) 0, Band Neutrophils 2, Platelet Estimate Adequate, Platelet Morphology Normal, Hypochromasia 1+, Anisocytosis 2+, Sodium Level 150H, Potassium Level 3.9, Chloride Level 114H, Carbon Dioxide Level 37H, Anion Gap -1L, Blood Urea Nitrogen 18, Creatinine 0.6, Estimat Glomerular Filtration Rate > 60, Glucose Level 130H, Calcium Level 8.1L, Phosphorus Level 2.5, Magnesium Level 2.2, Total Bilirubin 0.5, Direct Bilirubin 0.3, Aspartate Amino Transf (AST/SGOT) 48H, Alanine Aminotransferase (ALT/SGPT) 32, Alkaline Phosphatase 149H, Total Protein 5.8L, Albumin 1.7L 11/30/19 05:39: POC Whole Blood Glucose 102 Height (Feet): 5 Height (Inches): 1.00 Weight (Pounds): 326 General Appearance: no apparent distress EENT: other - Trach to vent Cardiovascular: normal rate - Rate in 80s, tachycardia Respiratory/Chest: decreased breath sounds Abdomen: distended Papa Young MD Nov 30, 2019 10:55
[2019-11-30 11:02] VITALS: BP 125/67
--- NOTE | 2019-11-30 11:29 | Infectious Diseases Prog Note ---
"Assessment/Plan Assessment/Plan antibiotics : cefepime 8.5.20 - A 1. COVID 19 pneumonia on 40 percent Fi O2, PEEP 5, saturation 100 percent s/p remdesivir s/p ivermectin 7.31.20 2. respiratory failure s/p tracheostomy 3. leucocytosis likely secondary to steroids 4. diabetes mellitus 5. hypertension 6. obesity 7. enterobacter | proteus | staph aureus pneumonia P 1. continue cefepime 1 more day 2. will follow up cultures 3. continue isolation Subjective ROS Limited/Unobtainable: Yes Allergies: Coded Allergies: No Known Allergies (Unverified , 11/06/19) Objective Last 24 Hour Vital Signs Date Time Temp Pulse Resp B/P (MAP) Pulse Ox O2 Delivery O2 Flow Rate FiO2 11/30/19 11:02 98.6 80 16 125/67 (86) 97 11/30/19 08:40 87 111/56 11/30/19 08:00 45 11/30/19 08:00 Mechanical Ventilator Mechanical Ventilator 11/30/19 08:00 98.3 87 16 111/56 (74) 97 11/30/19 08:00 90 11/30/19 07:12 85 19 45 11/30/19 04:00 50 11/30/19 04:00 Mechanical Ventilator Mechanical Ventilator 11/30/19 04:00 98.5 75 16 106/65 (79) 96 11/30/19 03:28 86 11/30/19 03:12 82 22 50 11/30/19 00:00 Mechanical Ventilator Mechanical Ventilator 11/30/19 00:00 98.9 77 16 104/60 (75) 94 11/29/19 23:30 96 11/29/19 23:30 88 20 50 11/29/19 20:27 77 114/59 11/29/19 20:00 50 11/29/19 20:00 Mechanical Ventilator Mechanical Ventilator 11/29/19 20:00 98.5 74 16 108/49 (68) 95 11/29/19 19:30 74 18 70 11/29/19 19:03 77 11/29/19 16:00 98.5 74 16 108/49 (68) 95 11/29/19 16:00 50 11/29/19 16:00 75 11/29/19 15:59 Mechanical Ventilator Mechanical Ventilator 11/29/19 15:05 77 19 70 11/29/19 12:00 97.8 84 17 113/75 (88) 96 11/29/19 12:00 50 11/29/19 12:00 62 11/29/19 12:00 Mechanical Ventilator Mechanical Ventilator Height (Feet): 5 Height (Inches): 1.00 Weight (Pounds): 326 HEENT: status post trach Respiratory/Chest: lungs clear Cardiovascular: normal rate, regular rhythm, no gallop/murmur Abdomen: soft, non tender, other - GT Extremities: no edema Laboratory Tests Test 11/29/19 16:26 11/30/19 00:32 11/30/19 03:43 11/30/19 05:39 POC Whole Blood Glucose 135 MG/DL (74-106) H Pending 102 MG/DL (74-106) White Blood Count 8.1 K/UL (4.8-10.8) Red Blood Count 3.38 M/UL (4.20-5.40) L Hemoglobin 8.9 G/DL (12.0-16.0) L Hematocrit 30.1 % (37.0-47.0) L Mean Corpuscular Volume 89 FL (80-99) Mean Corpuscular Hemoglobin 26.4 PG (27.0-31.0) L Mean Corpuscular Hemoglobin Concent 29.6 G/DL (32.0-36.0) L Red Cell Distribution Width 18.0 % (11.6-14.8) H Platelet Count 225 K/UL (150-450) Mean Platelet Volume 6.7 FL (6.5-10.1) Neutrophils (%) (Auto) % (45.0-75.0) Lymphocytes (%) (Auto) % (20.0-45.0) Monocytes (%) (Auto) % (1.0-10.0) Eosinophils (%) (Auto) % (0.0-3.0) Basophils (%) (Auto) % (0.0-2.0) Differential Total Cells Counted 100 Neutrophils % (Manual) 85 % (45-75) H Lymphocytes % (Manual) 5 % (20-45) L Monocytes % (Manual) 7 % (1-10) Eosinophils % (Manual) 1 % (0-3) Basophils % (Manual) 0 % (0-2) Band Neutrophils 2 % (0-8) Platelet Estimate Adequate Platelet Morphology Normal Hypochromasia 1+ Anisocytosis 2+ Sodium Level 150 MMOL/L (136-145) H Potassium Level 3.9 MMOL/L (3.5-5.1) Chloride Level 114 MMOL/L (98-107) H Carbon Dioxide Level 37 MMOL/L (21-32) H Anion Gap -1 mmol/L (5-15) L Blood Urea Nitrogen 18 mg/dL (7-18) Creatinine 0.6 MG/DL (0.55-1.30) Estimat Glomerular Filtration Rate > 60 mL/min (>60) Glucose Level 130 MG/DL (74-106) H Calcium Level 8.1 MG/DL (8.5-10.1) L Phosphorus Level 2.5 MG/DL (2.5-4.9) Magnesium Level 2.2 MG/DL (1.8-2.4) Total Bilirubin 0.5 MG/DL (0.2-1.0) Direct Bilirubin 0.3 MG/DL (0.0-0.3) Aspartate Amino Transf (AST/SGOT) 48 U/L (15-37) H Alanine Aminotransferase (ALT/SGPT) 32 U/L (12-78) Alkaline Phosphatase 149 U/L (46-116) H Total Protein 5.8 G/DL (6.4-8.2) L Albumin 1.7 G/DL (3.4-5.0) L Test 11/30/19 08:36 11/30/19 11:01 POC Whole Blood Glucose Pending 87 MG/DL (74-106) Current Medications Medications (Trade) Dose Ordered Sig/Robyn Route PRN Reason Start Time Stop Time Status Last Admin Dose Admin Acetaminophen (Tylenol) 650 mg Q6H PRN GT Temp >100.5 11/29/19 15:00 12/12/19 14:59 Amiodarone HCl (Cordarone) 400 mg DAILY GT 11/30/19 09:00 02/18/20 09:29 11/30/19 08:31 Cefepime HCl 2 gm/ Dextrose 55 ml @ 110 mls/hr Q12H IVPB 11/30/19 00:00 12/02/19 11:59 11/30/19 11:05 Chlorhexidine Gluconate (Miya-Hex 2%) 1 applic DAILY@2000 TOPIC 11/29/19 20:00 02/06/20 21:29 11/29/19 20:28 Clonidine HCl (Catapres Tab) 0.1 mg Q4H PRN GT For High Blood Pressure 11/29/19 14:30 02/09/20 14:29 Dextrose (Dextrose 50%) 25 ml Q30M PRN IV Hypoglycemia 11/29/19 14:15 02/21/20 06:44 Dextrose (Dextrose 50%) 50 ml Q30M PRN IV Hypoglycemia 11/29/19 14:15 02/21/20 06:44 Famotidine (Pepcid) 20 mg BID GT 11/29/19 18:00 02/26/20 17:59 11/30/19 08:30 Folic Acid (Folate) 2 mg DAILY GT 11/30/19 09:00 12/15/19 08:59 11/30/19 08:31 Insulin Aspart (NovoLOG) EVERY 6 HOURS SUBQ 11/29/19 18:00 02/11/20 20:59 11/30/19 00:48 Insulin Detemir (Levemir) 12 units BID SUBQ 11/29/19 18:00 02/21/20 08:59 11/30/19 09:31 Lorazepam (Ativan 2mg/ml 1ml) 2 mg Q3H PRN IV For Anxiety 11/29/19 15:30 12/03/19 15:29 Metolazone (Zaroxolyn) 2.5 mg DAILY GT 11/30/19 09:00 12/28/19 09:29 11/30/19 08:30 Metoprolol Tartrate (Lopressor) 25 mg Q12HR GT 11/29/19 21:00 02/18/20 09:29 11/30/19 08:40 Rosette Bowman MD Nov 30, 2019 11:29"
[2019-11-30] MEDS ORDERED: Potassium Phosphate 21 MM in NS 275 ML IV ONE (12:00)
--- NOTE | 2019-11-30 12:44 | Cardiac Electrophysiology PN ---
Assessment/Plan Assessment/Plan 1. Paroxysmal atrial fibrillation. On metoprolol 25 bid and Amiodarone 400 daily Off anticoagulation for hematuria and black stool EF 55% on echo. 2. S/P Shock. Off pressors. 3. COVID positive pneumonia. 4. Diabetes, on insulin. 5. Respiratory failure on the Vent. S/P Tracheostomy 11/24/19 6. S/P Massive nasal bleed. 7. Severe LE edema. 8. Dysphagia, S/P PEG 11/25/19 DW RN Subjective Subjective In Step down on the vent with 35% Fio2. S/P tracheostomy 11/24/19 and PEG In atrial fib rate controlled on Lopressor 25 bid. In Covid isolation Objective Last 24 Hour Vital Signs Date Time Temp Pulse Resp B/P (MAP) Pulse Ox O2 Delivery O2 Flow Rate FiO2 11/30/19 12:00 45 11/30/19 12:00 Mechanical Ventilator Mechanical Ventilator 11/30/19 12:00 98 11/30/19 11:02 98.6 80 16 125/67 (86) 97 11/30/19 08:40 87 111/56 11/30/19 08:00 45 11/30/19 08:00 Mechanical Ventilator Mechanical Ventilator 11/30/19 08:00 98.3 87 16 111/56 (74) 97 11/30/19 08:00 90 11/30/19 07:12 85 19 45 11/30/19 04:00 50 11/30/19 04:00 Mechanical Ventilator Mechanical Ventilator 11/30/19 04:00 98.5 75 16 106/65 (79) 96 11/30/19 03:28 86 11/30/19 03:12 82 22 50 11/30/19 00:00 Mechanical Ventilator Mechanical Ventilator 11/30/19 00:00 98.9 77 16 104/60 (75) 94 11/29/19 23:30 96 11/29/19 23:30 88 20 50 11/29/19 20:27 77 114/59 11/29/19 20:00 50 11/29/19 20:00 Mechanical Ventilator Mechanical Ventilator 11/29/19 20:00 98.5 74 16 108/49 (68) 95 11/29/19 19:30 74 18 70 11/29/19 19:03 77 11/29/19 16:00 98.5 74 16 108/49 (68) 95 11/29/19 16:00 50 11/29/19 16:00 75 11/29/19 15:59 Mechanical Ventilator Mechanical Ventilator 11/29/19 15:05 77 19 70 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 Intake and Output 11/29/19 11/30/19 19:00 07:00 Intake Total 1127 ml 685 ml Output Total 875 ml 510 ml Balance 252 ml 175 ml Free Water 90 ml 80 ml IV Total 337 ml 55 ml Tube Feeding 600 ml 550 ml Other 100 ml Output Urine Total 875 ml 450 ml Stool Total 60 ml # Bowel Movements 31 Laboratory Tests Test 11/29/19 16:26 11/30/19 00:32 11/30/19 03:43 11/30/19 05:39 POC Whole Blood Glucose 135 MG/DL (74-106) H Pending 102 MG/DL (74-106) White Blood Count 8.1 K/UL (4.8-10.8) Red Blood Count 3.38 M/UL (4.20-5.40) L Hemoglobin 8.9 G/DL (12.0-16.0) L Hematocrit 30.1 % (37.0-47.0) L Mean Corpuscular Volume 89 FL (80-99) Mean Corpuscular Hemoglobin 26.4 PG (27.0-31.0) L Mean Corpuscular Hemoglobin Concent 29.6 G/DL (32.0-36.0) L Red Cell Distribution Width 18.0 % (11.6-14.8) H Platelet Count 225 K/UL (150-450) Mean Platelet Volume 6.7 FL (6.5-10.1) Neutrophils (%) (Auto) % (45.0-75.0) Lymphocytes (%) (Auto) % (20.0-45.0) Monocytes (%) (Auto) % (1.0-10.0) Eosinophils (%) (Auto) % (0.0-3.0) Basophils (%) (Auto) % (0.0-2.0) Differential Total Cells Counted 100 Neutrophils % (Manual) 85 % (45-75) H Lymphocytes % (Manual) 5 % (20-45) L Monocytes % (Manual) 7 % (1-10) Eosinophils % (Manual) 1 % (0-3) Basophils % (Manual) 0 % (0-2) Band Neutrophils 2 % (0-8) Platelet Estimate Adequate Platelet Morphology Normal Hypochromasia 1+ Anisocytosis 2+ Sodium Level 150 MMOL/L (136-145) H Potassium Level 3.9 MMOL/L (3.5-5.1) Chloride Level 114 MMOL/L (98-107) H Carbon Dioxide Level 37 MMOL/L (21-32) H Anion Gap -1 mmol/L (5-15) L Blood Urea Nitrogen 18 mg/dL (7-18) Creatinine 0.6 MG/DL (0.55-1.30) Estimat Glomerular Filtration Rate > 60 mL/min (>60) Glucose Level 130 MG/DL (74-106) H Calcium Level 8.1 MG/DL (8.5-10.1) L Phosphorus Level 2.5 MG/DL (2.5-4.9) Magnesium Level 2.2 MG/DL (1.8-2.4) Total Bilirubin 0.5 MG/DL (0.2-1.0) Direct Bilirubin 0.3 MG/DL (0.0-0.3) Aspartate Amino Transf (AST/SGOT) 48 U/L (15-37) H Alanine Aminotransferase (ALT/SGPT) 32 U/L (12-78) Alkaline Phosphatase 149 U/L (46-116) H Total Protein 5.8 G/DL (6.4-8.2) L Albumin 1.7 G/DL (3.4-5.0) L Test 11/30/19 08:36 11/30/19 11:01 11/30/19 11:15 POC Whole Blood Glucose Pending 87 MG/DL (74-106) Stool Occult Blood Pending Microbiology Date/Time Source Procedure Growth Status 11/30/19 11:15 Nasopharynx SARS-CoV-2 RdRp Gene Assay - Final Complete Objective HEAD AND NECK: No JVD. Tracheostomy in place. LUNGS: Coarse rhonchi. CARDIOVASCULAR: Irregularly irregular. S1 and S2 with no gallop or murmur. ABDOMEN: Soft.PEG EXTREMITIES: 2 plus pitting edema. Gabe Snell MD Nov 30, 2019 12:44
--- NOTE | 2019-11-30 13:17 | Diagnostic Imaging Report ---
Indication: Shortness of breath, inadvertent midline removal Technique: One view of the chest Comparison: 11/28/2019 Findings: Previously demonstrated right axillary midline is no longer evident. Tracheostomy remains. Bilateral infiltrates are unchanged. The heart remains enlarged. Impression: Interim midline removal. Otherwise no change
--- NOTE | 2019-11-30 13:45 | Geriatric Medicine Prog Note ---
DATE: 11/28/2019 SUBJECTIVE: She is still in ICU. OBJECTIVE: VITAL SIGNS: Stable. RESPIRATORY:clear,CVS-Regular INV:glucose 190. IMPRESSIONS:1.Diabetes mellitus Type 2 2.Respiratory Failure PLANS:Lantus 10u sc q12hrs and Glucerna 1.2 50 cc/hr per G- tube. Meet Wilson M.D. DR: VENKATA JOB#: [id number] CC: GRECIA
--- NOTE | 2019-11-30 13:45 | Geriatric Medicine Prog Note ---
DATE: 11/27/2019 SUBJECTIVE: She is still in ICU. She is recovering from respiratory failure. Has intubation with tracheostomy and G-tube. OBJECTIVE: VITAL SIGNS: Stable. RESPIRATORY: Decreased breath sounds. CARDIOVASCULAR: Regular rate. . INV:Hemoglobin A1c 10.4.Glucose 175 IMPRESSIONS:1Diabetes Mellitus currently under control. 2 Pneumonia and respiratory failure. PLANS:Levemir 10u sc q12hrs and Glucerna 1.2 50 cc/hr per G-tube. Meet Wilson M.D. DR: VENKATA JOB#: [id number] CC: GRECIA
--- NOTE | 2019-11-30 14:16 | Surgery Progress Note ---
Surgery Progress Note Subjective Procedure Performed tracheostomy Additional Comments trach dislodged repositioned at bedside dresings changed volumes better Objective Last 24 Hour Vital Signs Date Time Temp Pulse Resp B/P (MAP) Pulse Ox O2 Delivery O2 Flow Rate FiO2 11/30/19 12:00 45 11/30/19 12:00 Mechanical Ventilator Mechanical Ventilator 11/30/19 12:00 98 11/30/19 11:02 98.6 80 16 125/67 (86) 97 11/30/19 08:40 87 111/56 11/30/19 08:00 45 11/30/19 08:00 Mechanical Ventilator Mechanical Ventilator 11/30/19 08:00 98.3 87 16 111/56 (74) 97 11/30/19 08:00 90 11/30/19 07:12 85 19 45 11/30/19 04:00 50 11/30/19 04:00 Mechanical Ventilator Mechanical Ventilator 11/30/19 04:00 98.5 75 16 106/65 (79) 96 11/30/19 03:28 86 11/30/19 03:12 82 22 50 11/30/19 00:00 Mechanical Ventilator Mechanical Ventilator 11/30/19 00:00 98.9 77 16 104/60 (75) 94 11/29/19 23:30 96 11/29/19 23:30 88 20 50 11/29/19 20:27 77 114/59 11/29/19 20:00 50 11/29/19 20:00 Mechanical Ventilator Mechanical Ventilator 11/29/19 20:00 98.5 74 16 108/49 (68) 95 11/29/19 19:30 74 18 70 11/29/19 19:03 77 11/29/19 16:00 98.5 74 16 108/49 (68) 95 11/29/19 16:00 50 11/29/19 16:00 75 11/29/19 15:59 Mechanical Ventilator Mechanical Ventilator 11/29/19 15:05 77 19 70 I&O Intake and Output 11/29/19 11/30/19 19:00 07:00 Intake Total 1127 ml 685 ml Output Total 875 ml 510 ml Balance 252 ml 175 ml Free Water 90 ml 80 ml IV Total 337 ml 55 ml Tube Feeding 600 ml 550 ml Other 100 ml Output Urine Total 875 ml 450 ml Stool Total 60 ml # Bowel Movements 31 Dressing: saturated Cardiovascular: RSR Respiratory: decreased breath sounds Abdomen: soft, present bowel sounds Extremities: no cyanosis Laboratory Tests Test 11/29/19 16:26 11/30/19 00:32 11/30/19 03:43 11/30/19 05:39 POC Whole Blood Glucose 135 MG/DL (74-106) H Pending 102 MG/DL (74-106) White Blood Count 8.1 K/UL (4.8-10.8) Red Blood Count 3.38 M/UL (4.20-5.40) L Hemoglobin 8.9 G/DL (12.0-16.0) L Hematocrit 30.1 % (37.0-47.0) L Mean Corpuscular Volume 89 FL (80-99) Mean Corpuscular Hemoglobin 26.4 PG (27.0-31.0) L Mean Corpuscular Hemoglobin Concent 29.6 G/DL (32.0-36.0) L Red Cell Distribution Width 18.0 % (11.6-14.8) H Platelet Count 225 K/UL (150-450) Mean Platelet Volume 6.7 FL (6.5-10.1) Neutrophils (%) (Auto) % (45.0-75.0) Lymphocytes (%) (Auto) % (20.0-45.0) Monocytes (%) (Auto) % (1.0-10.0) Eosinophils (%) (Auto) % (0.0-3.0) Basophils (%) (Auto) % (0.0-2.0) Differential Total Cells Counted 100 Neutrophils % (Manual) 85 % (45-75) H Lymphocytes % (Manual) 5 % (20-45) L Monocytes % (Manual) 7 % (1-10) Eosinophils % (Manual) 1 % (0-3) Basophils % (Manual) 0 % (0-2) Band Neutrophils 2 % (0-8) Platelet Estimate Adequate Platelet Morphology Normal Hypochromasia 1+ Anisocytosis 2+ Sodium Level 150 MMOL/L (136-145) H Potassium Level 3.9 MMOL/L (3.5-5.1) Chloride Level 114 MMOL/L (98-107) H Carbon Dioxide Level 37 MMOL/L (21-32) H Anion Gap -1 mmol/L (5-15) L Blood Urea Nitrogen 18 mg/dL (7-18) Creatinine 0.6 MG/DL (0.55-1.30) Estimat Glomerular Filtration Rate > 60 mL/min (>60) Glucose Level 130 MG/DL (74-106) H Calcium Level 8.1 MG/DL (8.5-10.1) L Phosphorus Level 2.5 MG/DL (2.5-4.9) Magnesium Level 2.2 MG/DL (1.8-2.4) Total Bilirubin 0.5 MG/DL (0.2-1.0) Direct Bilirubin 0.3 MG/DL (0.0-0.3) Aspartate Amino Transf (AST/SGOT) 48 U/L (15-37) H Alanine Aminotransferase (ALT/SGPT) 32 U/L (12-78) Alkaline Phosphatase 149 U/L (46-116) H Total Protein 5.8 G/DL (6.4-8.2) L Albumin 1.7 G/DL (3.4-5.0) L Test 11/30/19 08:36 11/30/19 11:01 11/30/19 11:15 POC Whole Blood Glucose Pending 87 MG/DL (74-106) Stool Occult Blood Pending Plan Problems: (1) Weak (2) UTI (urinary tract infection) (3) Hypoxia (4) Epistaxis Assessment & Plan: Severe after taxis left nostril Rhino Rocket placed hemostasis noted over the course 24 hours hemoglobin stable Lovenox been stopped. The balloon of both ports of the Rhino Rocket were deflated today. The rocket itself was not removed and will monitor over the course next 24 hours hemostasis. If so will gently remove and plan for local monitoring. Currently wean ventilator as tolerated. Goals of extubation when possible. deflated balloon 11/08 removed trumpet 11/09 will monitor for bleeding wean vent plan extubation discussed with pulm (5) Fluid overload Assessment & Plan: Continue central venous catheter for now. Will anticipate removal once patient stable for extubation. Thank you for allowing me to participate patient's care picc in line out (6) Diabetes (7) CHF (congestive heart failure) (8) Afib (9) Multifocal pneumonia (10) 2019 novel coronavirus disease (COVID-19) Assessment & Plan: + wean vent extubated failed reintubated consider trach plan trach 8/4 s/p trach comfortable (11) Respiratory failure Assessment & Plan: trach dislodged this AM with air leak evaluated at bedside and repositioned. improved now will monitor Ortiz Fleming Nov 30, 2019 14:16
[2019-11-30 16:00] VITALS: BP 103/56
[2019-11-30] MEDS ORDERED: Acetaminophen 650mg/20.3ml GT PRN (17:45)
[2019-11-30 19:52] VITALS: BP 121/69
[2019-12-01] VITALS: BP 116/58
[2019-12-01] MEDS: Acetaminophen 650mg/20.3ml GT PRN (02:11)
[2019-12-01 04:00] VITALS: BP 110/62
[2019-12-01 04:57] LABS: BASOPHILS % (AUTO) 1.3 % (0.0-2.0); EOSINOPHILS % (AUTO) 1.3 % (0.0-3.0); HEMATOCRIT 30.3 % (37.0-47.0); LYMPHOCYTES % (AUTO) 8.1 % (20.0-45.0); MEAN CORPUSCULAR VOLUME 89 FL (80-99); MONOCYTES % (AUTO) 6.3 % (1.0-10.0); PLATELET COUNT 243 K/UL (150-450); RED BLOOD COUNT 3.42 M/UL (4.20-5.40); RED CELL DISTRIBUTION WIDTH 17.7 % (11.6-14.8); WHITE BLOOD COUNT 9.4 K/UL (4.8-10.8)
[2019-12-01] MEDS: NovoLOG Insulin Flexpen SUBQ SCH ×4 (05:00→23:00)
[2019-12-01 05:34] LABS: ANION GAP 2 mmol/L (5-15); BLOOD UREA NITROGEN 20 mg/dL (7-18); CALCIUM 8.4 MG/DL (8.5-10.1); CARBON DIOXIDE 37 MMOL/L (21-32); CHLORIDE 109 MMOL/L (98-107); CREATININE 0.8 MG/DL (0.55-1.30); POTASSIUM 3.9 MMOL/L (3.5-5.1); SODIUM 148 MMOL/L (136-145)
--- NOTE | 2019-12-01 06:50 | General Progress Note ---
Assessment/Plan Problem List: (1) Hypoxia ICD Codes: R09.02 - Hypoxemia SNOMED: 948265483 (2) CHF (congestive heart failure) ICD Codes: I50.9 - Heart failure, unspecified SNOMED: 96197955 (3) Diabetes ICD Codes: E11.9 - Type 2 diabetes mellitus without complications SNOMED: 19318987 (4) Fluid overload ICD Codes: E87.70 - Fluid overload, unspecified SNOMED: 15783430 (5) 2019 novel coronavirus disease (COVID-19) ICD Codes: U07.1 - COVID-19 SNOMED: 039634521 Status: unchanged Assessment/Plan: reduce Levemir to 10 units bid continue Novolog sliding scale every 6 hours hypoglycemia protocol in order repeat thyroid function improved - no need for thyroid medication Subjective ROS Limited/Unobtainable: Yes Allergies: Coded Allergies: No Known Allergies (Unverified , 11/06/19) Subjective events noted glucose values are stable Item Value Date Time Bedside Blood Glucose 133 mg/dl H 12/01/19 0500 Bedside Blood Glucose 137 mg/dl H 11/30/19 2307 Bedside Blood Glucose 105 mg/dl 11/30/19 1740 Bedside Blood Glucose 87 mg/dl 11/30/19 1104 Bedside Blood Glucose 87 mg/dl 11/30/19 0931 Bedside Blood Glucose 102 mg/dl 11/30/19 0600 Bedside Blood Glucose 151 mg/dl H 11/30/19 0048 Objective Last 24 Hour Vital Signs Date Time Temp Pulse Resp B/P (MAP) Pulse Ox O2 Delivery O2 Flow Rate FiO2 12/01/19 04:00 98.0 89 16 110/62 (78) 100 12/01/19 04:00 100 12/01/19 04:00 Mechanical Ventilator Mechanical Ventilator 12/01/19 03:28 96 12/01/19 02:41 99.1 12/01/19 02:31 92 22 45 12/01/19 00:00 100 12/01/19 00:00 98.1 85 16 116/58 (77) 98 12/01/19 00:00 Mechanical Ventilator Mechanical Ventilator 11/30/19 23:32 90 11/30/19 22:50 93 18 45 11/30/19 20:03 84 121/69 11/30/19 20:00 100 11/30/19 20:00 Mechanical Ventilator Mechanical Ventilator 11/30/19 19:52 98.3 84 16 121/69 (86) 98 11/30/19 19:39 85 18 60 11/30/19 19:07 103 11/30/19 17:20 99.9 11/30/19 16:00 99.3 87 16 103/56 (72) 97 11/30/19 16:00 Mechanical Ventilator Mechanical Ventilator 11/30/19 16:00 100 11/30/19 16:00 96 11/30/19 14:30 87 23 45 11/30/19 12:00 45 11/30/19 12:00 Mechanical Ventilator Mechanical Ventilator 11/30/19 12:00 98 11/30/19 11:02 98.6 80 16 125/67 (86) 97 11/30/19 10:49 81 20 45 11/30/19 08:40 87 111/56 11/30/19 08:00 45 11/30/19 08:00 Mechanical Ventilator Mechanical Ventilator 11/30/19 08:00 98.3 87 16 111/56 (74) 97 11/30/19 08:00 90 11/30/19 07:12 85 19 45 Intake and Output 11/30/19 12/01/19 19:00 07:00 Intake Total 805 ml 810 ml Output Total 700 ml 850 ml Balance 105 ml -40 ml Free Water 150 ml IV Total 55 ml 110 ml Tube Feeding 600 ml 550 ml Other 150 ml Output Urine Total 700 ml 850 ml # Bowel Movements 2 50 Laboratory Tests 11/30/19 08:36: POC Whole Blood Glucose [Pending] 11/30/19 11:01: POC Whole Blood Glucose 87 11/30/19 11:15: Stool Occult Blood [Pending] 11/30/19 17:23: POC Whole Blood Glucose 105 11/30/19 23:01: POC Whole Blood Glucose [Pending] 12/01/19 04:00: White Blood Count 9.4, Red Blood Count 3.42L, Hemoglobin 9.0L, Hematocrit 30.3L , Mean Corpuscular Volume 89, Mean Corpuscular Hemoglobin 26.4L, Mean Corpuscular Hemoglobin Concent 29.8L, Red Cell Distribution Width 17.7H, Platelet Count 243, Mean Platelet Volume 6.5, Neutrophils (%) (Auto) 83.0H, Lymphocytes (%) (Auto) 8.1L, Monocytes (%) (Auto) 6.3, Eosinophils (%) (Auto) 1.3, Basophils (%) (Auto) 1.3, Sodium Level 148H, Potassium Level 3.9, Chloride Level 109H, Carbon Dioxide Level 37H, Anion Gap 2L, Blood Urea Nitrogen 20H, Creatinine 0.8, Estimat Glomerular Filtration Rate > 60, Glucose Level 148H, Calcium Level 8.4L 12/01/19 04:53: POC Whole Blood Glucose [Pending] Height (Feet): 5 Height (Inches): 1.00 Weight (Pounds): 326 Objective Current Medications Medications (Trade) Dose Ordered Sig/Robyn Route PRN Reason Start Time Stop Time Status Last Admin Dose Admin Acetaminophen (Tylenol) 650 mg Q4H PRN GT For Pain 11/30/19 17:45 12/30/19 17:44 11/30/19 18:24 Acetaminophen (Tylenol) 650 mg Q6H PRN GT Temp >100.5 11/29/19 15:00 12/12/19 14:59 12/01/19 02:11 Amiodarone HCl (Cordarone) 400 mg DAILY GT 11/30/19 09:00 02/18/20 09:29 11/30/19 08:31 Cefepime HCl 2 gm/ Dextrose 55 ml @ 110 mls/hr Q12H IVPB 11/30/19 00:00 12/02/19 11:59 11/30/19 23:00 Clonidine HCl (Catapres Tab) 0.1 mg Q4H PRN GT For High Blood Pressure 11/29/19 14:30 02/09/20 14:29 Dextrose (Dextrose 50%) 25 ml Q30M PRN IV Hypoglycemia 11/29/19 14:15 02/21/20 06:44 Dextrose (Dextrose 50%) 50 ml Q30M PRN IV Hypoglycemia 11/29/19 14:15 02/21/20 06:44 Famotidine (Pepcid) 20 mg BID GT 11/29/19 18:00 02/26/20 17:59 11/30/19 17:22 Folic Acid (Folate) 2 mg DAILY GT 11/30/19 09:00 12/15/19 08:59 11/30/19 08:31 Insulin Aspart (NovoLOG) EVERY 6 HOURS SUBQ 11/29/19 18:00 02/11/20 20:59 11/30/19 00:48 Insulin Detemir (Levemir) 12 units BID SUBQ 11/29/19 18:00 02/21/20 08:59 11/30/19 17:34 Lorazepam (Ativan 2mg/ml 1ml) 2 mg Q3H PRN IV For Anxiety 11/29/19 15:30 12/03/19 15:29 Metolazone (Zaroxolyn) 2.5 mg DAILY GT 11/30/19 09:00 12/28/19 09:29 11/30/19 08:30 Metoprolol Tartrate (Lopressor) 25 mg Q12HR GT 11/29/19 21:00 02/18/20 09:29 11/30/19 20:03 Alphonse Ojeda MD Dec 01, 2019 06:50
--- NOTE | 2019-12-01 07:49 | General Progress Note ---
Assessment/Plan Problem List: (1) Respiratory failure ICD Codes: J96.90 - Respiratory failure, unspecified, unspecified whether with hypoxia or hypercapnia SNOMED: 495038678 (2) 2019 novel coronavirus disease (COVID-19) ICD Codes: U07.1 - COVID-19 SNOMED: 781880232 (3) Multifocal pneumonia ICD Codes: J18.9 - Pneumonia, unspecified organism SNOMED: 405374648 (4) Afib ICD Codes: I48.91 - Unspecified atrial fibrillation SNOMED: 09754580 (5) CHF (congestive heart failure) ICD Codes: I50.9 - Heart failure, unspecified SNOMED: 74528022 (6) Diabetes ICD Codes: E11.9 - Type 2 diabetes mellitus without complications SNOMED: 50361376 (7) Fluid overload ICD Codes: E87.70 - Fluid overload, unspecified SNOMED: 14984274 (8) Epistaxis ICD Codes: R04.0 - Epistaxis SNOMED: 204886721 Status: unchanged Assessment/Plan: fu H&H prn blood transfusion slow drop in H&H withoit obvious bleeding repeat stool ob GTF on colace >>>will dc given loose stools patient has rectal tube will fu Subjective ROS Limited/Unobtainable: No Allergies: Coded Allergies: No Known Allergies (Unverified , 11/06/19) Objective Last 24 Hour Vital Signs Date Time Temp Pulse Resp B/P (MAP) Pulse Ox O2 Delivery O2 Flow Rate FiO2 12/01/19 04:00 98.0 89 16 110/62 (78) 100 12/01/19 04:00 100 12/01/19 04:00 Mechanical Ventilator Mechanical Ventilator 12/01/19 03:28 96 12/01/19 02:41 99.1 12/01/19 02:31 92 22 45 12/01/19 00:00 100 12/01/19 00:00 98.1 85 16 116/58 (77) 98 12/01/19 00:00 Mechanical Ventilator Mechanical Ventilator 11/30/19 23:32 90 11/30/19 22:50 93 18 45 11/30/19 20:03 84 121/69 11/30/19 20:00 100 11/30/19 20:00 Mechanical Ventilator Mechanical Ventilator 11/30/19 19:52 98.3 84 16 121/69 (86) 98 11/30/19 19:39 85 18 60 11/30/19 19:07 103 11/30/19 17:20 99.9 11/30/19 16:00 99.3 87 16 103/56 (72) 97 11/30/19 16:00 Mechanical Ventilator Mechanical Ventilator 11/30/19 16:00 100 11/30/19 16:00 96 11/30/19 14:30 87 23 45 11/30/19 12:00 45 11/30/19 12:00 Mechanical Ventilator Mechanical Ventilator 11/30/19 12:00 98 11/30/19 11:02 98.6 80 16 125/67 (86) 97 11/30/19 10:49 81 20 45 11/30/19 08:40 87 111/56 11/30/19 08:00 45 11/30/19 08:00 Mechanical Ventilator Mechanical Ventilator 11/30/19 08:00 98.3 87 16 111/56 (74) 97 11/30/19 08:00 90 Intake and Output 11/30/19 12/01/19 19:00 07:00 Intake Total 805 ml 810 ml Output Total 700 ml 850 ml Balance 105 ml -40 ml Free Water 150 ml IV Total 55 ml 110 ml Tube Feeding 600 ml 550 ml Other 150 ml Output Urine Total 700 ml 850 ml # Bowel Movements 2 50 Laboratory Tests 11/30/19 08:36: POC Whole Blood Glucose [Pending] 11/30/19 11:01: POC Whole Blood Glucose 87 11/30/19 11:15: Stool Occult Blood [Pending] 11/30/19 17:23: POC Whole Blood Glucose 105 11/30/19 23:01: POC Whole Blood Glucose [Pending] 12/01/19 04:00: White Blood Count 9.4, Red Blood Count 3.42L, Hemoglobin 9.0L, Hematocrit 30.3L , Mean Corpuscular Volume 89, Mean Corpuscular Hemoglobin 26.4L, Mean Corpuscular Hemoglobin Concent 29.8L, Red Cell Distribution Width 17.7H, Platelet Count 243, Mean Platelet Volume 6.5, Neutrophils (%) (Auto) 83.0H, Lymphocytes (%) (Auto) 8.1L, Monocytes (%) (Auto) 6.3, Eosinophils (%) (Auto) 1.3, Basophils (%) (Auto) 1.3, Sodium Level 148H, Potassium Level 3.9, Chloride Level 109H, Carbon Dioxide Level 37H, Anion Gap 2L, Blood Urea Nitrogen 20H, Creatinine 0.8, Estimat Glomerular Filtration Rate > 60, Glucose Level 148H, Calcium Level 8.4L 12/01/19 04:53: POC Whole Blood Glucose [Pending] Height (Feet): 5 Height (Inches): 1.00 Weight (Pounds): 326 General Appearance: alert EENT: normal ENT inspection Neck: supple Cardiovascular: normal rate Respiratory/Chest: decreased breath sounds Abdomen: normal bowel sounds, non tender, soft Extremities: non-tender Case Patel MD Dec 01, 2019 07:49
[2019-12-01 08:00] VITALS: BP 125/63
[2019-12-01] MEDS: metOLazone 2.5 MG TAB GT SCH (08:07)
[2019-12-01] MEDS: Amiodarone 200mg tab GT SCH (08:07)
[2019-12-01] MEDS: Levemir Flexpen SUBQ SCH ×2 (08:12→18:18)
--- NOTE | 2019-12-01 09:15 | Geriatric Medicine Prog Note ---
DATE: 11/30/2019 SUBJECTIVE: She is about the same OBJECTIVE:VS Stable RESP:Clear,CVS-Regular INV:Glucose 137 IMPRESSIONS:1.Diabetes Mellitus type 2 2.Respiratory Failure PLANS:1.Lantus 10u sc q12hrs 2.Glucerna 1.5 50 cc/hr per GT Meet Wilson M.D. DR: VENKATA JOB#: [id number] CC: GRECIA
--- NOTE | 2019-12-01 09:20 | Nephrology Progress Note ---
Assessment/Plan Problem List: (1) Electrolyte imbalance (2) Diabetes (3) 2019 novel coronavirus disease (COVID-19) (4) Respiratory failure Assessment 1. COVID-19 pneumonia. 2. Diabetes and hyperglycemia 3. Hypertension. 4. Hypoxic respiratory failure 5. Morbid obesity with BMI of 65.5 6. Nasal bleeding 7. Lactic acidosis 8. Hyperkalemia Plan November 30: Lab reviewed. Renal parameters stable. Continue per consultants. November 29: Lab reviewed. Renal parameters stable. Continue per consultants. November 28: Lab reviewed. Phosphorus supplement given. Discussed with RN. Continue to monitor renal parameters. November 27: Lab reviewed. Serum sodium improved. Will start low-dose Zaroxolyn. Change IV Pepcid to GT route. Remains full code. Monitor renal parameters and electrolytes. November 26: Lab reviewed. Serum sodium elevated. 500 cc D5W bolus given. Potassium supplement given. Patient remains full code. Continue per consultants. November 25: Lab reviewed. Patient has trach connected to vent. Patient also has PEG. Continue per consultants. Medication list reviewed. November 24: Lab reviewed. Potassium IV given. Has tracheostomy to vent. Has PEG. Continue per consultants. November 23: Labs reviewed. Creatinine higher to 1.4. Due for trach today. Suggest to stop IV Lasix. November 22: Renal parameters stable. Medication list reviewed. Continue same management per consultants. November 21: Renal parameters stable. On IV Lasix. Edematous. Will order few doses of albumin 25%. Continue per consultants. November 20: Repeat serum potassium again normal. Renal parameters normal. Continue per consultants. November 19: Repeat serum potassium normal. Renal parameters within normal limit. Continue per consultants. November 18: Levemir stopped since IV fluid and dexamethasone are discontinued and patient blood sugar went down. Renal parameters are stable. Continues to be on ventilator. Previously: Renal parameters stable Weaning is being attempted patient's urine output is low. We will give a trial of albumin and Lasix, As needed Discussed with RN Stop IV to D5W 75 cc an hour Levemir 20 units subcu every 12 hours Kayexalate for high potassium as needed Monitor electrolytes and renal parameters Tight blood sugar control, long-acting insulin as needed Keep the blood pressure in check Per orders Subjective ROS Limited/Unobtainable: Yes Objective Objective Last 24 Hour Vital Signs Date Time Temp Pulse Resp B/P (MAP) Pulse Ox O2 Delivery O2 Flow Rate FiO2 12/01/19 08:41 104 12/01/19 08:08 114 125/63 12/01/19 08:00 99.9 114 22 125/63 (83) 99 12/01/19 08:00 100 12/01/19 04:00 98.0 89 16 110/62 (78) 100 12/01/19 04:00 100 12/01/19 04:00 Mechanical Ventilator Mechanical Ventilator 12/01/19 03:28 96 12/01/19 02:41 99.1 12/01/19 02:31 92 22 45 12/01/19 00:00 100 12/01/19 00:00 98.1 85 16 116/58 (77) 98 12/01/19 00:00 Mechanical Ventilator Mechanical Ventilator 11/30/19 23:32 90 11/30/19 22:50 93 18 45 11/30/19 20:03 84 121/69 11/30/19 20:00 100 11/30/19 20:00 Mechanical Ventilator Mechanical Ventilator 11/30/19 19:52 98.3 84 16 121/69 (86) 98 11/30/19 19:39 85 18 60 11/30/19 19:07 103 11/30/19 17:20 99.9 11/30/19 16:00 99.3 87 16 103/56 (72) 97 11/30/19 16:00 Mechanical Ventilator Mechanical Ventilator 11/30/19 16:00 100 11/30/19 16:00 96 11/30/19 14:30 87 23 45 11/30/19 12:00 45 11/30/19 12:00 Mechanical Ventilator Mechanical Ventilator 11/30/19 12:00 98 11/30/19 11:02 98.6 80 16 125/67 (86) 97 11/30/19 10:49 81 20 45 Intake and Output 11/30/19 12/01/19 19:00 07:00 Intake Total 805 ml 810 ml Output Total 700 ml 850 ml Balance 105 ml -40 ml Free Water 150 ml IV Total 55 ml 110 ml Tube Feeding 600 ml 550 ml Other 150 ml Output Urine Total 700 ml 850 ml # Bowel Movements 2 50 Laboratory Tests 11/30/19 11:01: POC Whole Blood Glucose 87 11/30/19 11:15: Stool Occult Blood [Pending] 8/10/20 17:23: POC Whole Blood Glucose 105 11/30/19 23:01: POC Whole Blood Glucose [Pending] 12/01/19 04:00: White Blood Count 9.4, Red Blood Count 3.42L, Hemoglobin 9.0L, Hematocrit 30.3L , Mean Corpuscular Volume 89, Mean Corpuscular Hemoglobin 26.4L, Mean Corpuscular Hemoglobin Concent 29.8L, Red Cell Distribution Width 17.7H, Platelet Count 243, Mean Platelet Volume 6.5, Neutrophils (%) (Auto) 83.0H, Lymphocytes (%) (Auto) 8.1L, Monocytes (%) (Auto) 6.3, Eosinophils (%) (Auto) 1.3, Basophils (%) (Auto) 1.3, Sodium Level 148H, Potassium Level 3.9, Chloride Level 109H, Carbon Dioxide Level 37H, Anion Gap 2L, Blood Urea Nitrogen 20H, Creatinine 0.8, Estimat Glomerular Filtration Rate > 60, Glucose Level 148H, Calcium Level 8.4L 12/01/19 04:53: POC Whole Blood Glucose [Pending] Height (Feet): 5 Height (Inches): 1.00 Weight (Pounds): 326 General Appearance: no apparent distress EENT: other - Trach to vent Cardiovascular: tachycardia Respiratory/Chest: decreased breath sounds Abdomen: distended Papa Young MD Dec 01, 2019 09:20
--- NOTE | 2019-12-01 10:12 | Pulmonology Progress Note ---
Subjective ROS Limited/Unobtainable: Yes Interval Events: Re-intubated on 11/19/19; Status post tracheostomy 11/24/2019 Constitutional: Denies: fever HEENT: Repors: no symptoms Respiratory: Reports: dry cough, shortness of breath Cardiovascular: Reports: no symptoms Gastrointestinal/Abdominal: Reports: no symptoms Allergies: Coded Allergies: No Known Allergies (Unverified , 11/06/19) All Systems: reviewed and negative except above Objective Last 24 Hour Vital Signs Date Time Temp Pulse Resp B/P (MAP) Pulse Ox O2 Delivery O2 Flow Rate FiO2 12/01/19 08:41 104 12/01/19 08:08 114 125/63 12/01/19 08:00 99.9 114 22 125/63 (83) 99 12/01/19 08:00 100 12/01/19 08:00 Mechanical Ventilator Mechanical Ventilator 12/01/19 04:00 98.0 89 16 110/62 (78) 100 12/01/19 04:00 100 12/01/19 04:00 Mechanical Ventilator Mechanical Ventilator 12/01/19 03:28 96 12/01/19 02:41 99.1 12/01/19 02:31 92 22 45 12/01/19 00:00 100 12/01/19 00:00 98.1 85 16 116/58 (77) 98 12/01/19 00:00 Mechanical Ventilator Mechanical Ventilator 11/30/19 23:32 90 11/30/19 22:50 93 18 45 11/30/19 20:03 84 121/69 11/30/19 20:00 100 11/30/19 20:00 Mechanical Ventilator Mechanical Ventilator 11/30/19 19:52 98.3 84 16 121/69 (86) 98 11/30/19 19:39 85 18 60 11/30/19 19:07 103 11/30/19 17:20 99.9 11/30/19 16:00 99.3 87 16 103/56 (72) 97 11/30/19 16:00 Mechanical Ventilator Mechanical Ventilator 11/30/19 16:00 100 11/30/19 16:00 96 11/30/19 14:30 87 23 45 11/30/19 12:00 45 11/30/19 12:00 Mechanical Ventilator Mechanical Ventilator 11/30/19 12:00 98 11/30/19 11:02 98.6 80 16 125/67 (86) 97 11/30/19 10:49 81 20 45 Intake and Output 11/30/19 12/01/19 19:00 07:00 Intake Total 805 ml 810 ml Output Total 700 ml 850 ml Balance 105 ml -40 ml Free Water 150 ml IV Total 55 ml 110 ml Tube Feeding 600 ml 550 ml Other 150 ml Output Urine Total 700 ml 850 ml # Bowel Movements 2 50 General Appearance: no acute distress HEENT: normocephalic, status post trach Respiratory: decreased breath sounds Cardiovascular: normal peripheral pulses Abdomen: normal bowel sounds Extremities: no cyanosis Microbiology Date/Time Source Procedure Growth Status 11/30/19 11:15 Nasopharynx SARS-CoV-2 RdRp Gene Assay - Final Complete 11/30/19 11:15 Stool Clostridium difficile Toxin Assay - Final Complete Laboratory Tests 11/30/19 11:01: POC Whole Blood Glucose 87 11/30/19 11:15: Stool Occult Blood [Pending] 11/30/19 17:23: POC Whole Blood Glucose 105 11/30/19 23:01: POC Whole Blood Glucose [Pending] 12/01/19 04:00: White Blood Count 9.4, Red Blood Count 3.42L, Hemoglobin 9.0L, Hematocrit 30.3L , Mean Corpuscular Volume 89, Mean Corpuscular Hemoglobin 26.4L, Mean Corpuscular Hemoglobin Concent 29.8L, Red Cell Distribution Width 17.7H, Platelet Count 243, Mean Platelet Volume 6.5, Neutrophils (%) (Auto) 83.0H, Lymphocytes (%) (Auto) 8.1L, Monocytes (%) (Auto) 6.3, Eosinophils (%) (Auto) 1.3, Basophils (%) (Auto) 1.3, Sodium Level 148H, Potassium Level 3.9, Chloride Level 109H, Carbon Dioxide Level 37H, Anion Gap 2L, Blood Urea Nitrogen 20H, Creatinine 0.8, Estimat Glomerular Filtration Rate > 60, Glucose Level 148H, Calcium Level 8.4L 12/01/19 04:53: POC Whole Blood Glucose [Pending] Current Medications Medications (Trade) Dose Ordered Sig/Robyn Route PRN Reason Start Time Stop Time Status Last Admin Dose Admin Acetaminophen (Tylenol) 650 mg Q4H PRN GT For Pain 11/30/19 17:45 9/9/20 17:44 11/30/19 18:24 Acetaminophen (Tylenol) 650 mg Q6H PRN GT Temp >100.5 11/29/19 15:00 12/12/19 14:59 12/01/19 02:11 Amiodarone HCl (Cordarone) 400 mg DAILY GT 11/30/19 09:00 02/18/20 09:29 12/01/19 08:07 Cefepime HCl 2 gm/ Dextrose 55 ml @ 110 mls/hr Q12H IVPB 11/30/19 00:00 12/02/19 11:59 11/30/19 23:00 Clonidine HCl (Catapres Tab) 0.1 mg Q4H PRN GT For High Blood Pressure 11/29/19 14:30 02/09/20 14:29 Dextrose (Dextrose 50%) 25 ml Q30M PRN IV Hypoglycemia 11/29/19 14:15 02/21/20 06:44 Dextrose (Dextrose 50%) 50 ml Q30M PRN IV Hypoglycemia 11/29/19 14:15 02/21/20 06:44 Famotidine (Pepcid) 20 mg BID GT 11/29/19 18:00 02/26/20 17:59 12/01/19 08:07 Folic Acid (Folate) 2 mg DAILY GT 11/30/19 09:00 12/15/19 08:59 12/01/19 08:07 Insulin Aspart (NovoLOG) EVERY 6 HOURS SUBQ 11/29/19 18:00 02/11/20 20:59 11/30/19 00:48 Insulin Detemir (Levemir) 10 units BID SUBQ 12/01/19 09:00 02/21/20 08:59 12/01/19 08:12 Lorazepam (Ativan 2mg/ml 1ml) 2 mg Q3H PRN IV For Anxiety 11/29/19 15:30 12/03/19 15:29 Metolazone (Zaroxolyn) 2.5 mg DAILY GT 11/30/19 09:00 12/28/19 09:29 12/01/19 08:07 Metoprolol Tartrate (Lopressor) 25 mg Q12HR GT 11/29/19 21:00 02/18/20 09:29 12/01/19 08:08 Assessment/Plan Assessment/Plan IMPRESSION: 1. COVID-19 pneumonia. 2. Diabetes mellitus and hypertension. 3. Lactic acidemia. 4. Epistaxis 5. Respiratory failure; failed extubation 6. S/p trach/PEG DISCUSSION: Careful and close monitoring. Continue medications status post tracheostomy Begin weaning; trach collar S/p PEG no longer on Lasix I will follow carefully Dc planning to sub-acute Lakeisha Zavaleta Omar Syed MD Dec 01, 2019 10:12
--- NOTE | 2019-12-01 11:27 | Cardiac Electrophysiology PN ---
Assessment/Plan Assessment/Plan 1. Paroxysmal atrial fibrillation. On metoprolol 25 bid and Amiodarone 400 daily Off anticoagulation for hematuria and black stool EF 55% on echo. 2. S/P Shock. Off pressors. 3. COVID positive pneumonia. 4. Diabetes, on insulin. 5. Respiratory failure on the Vent. S/P Tracheostomy 11/24/19 Now back on 100% Fio2 6. S/P Massive nasal bleed. 7. Severe LE edema. 8. Dysphagia, S/P PEG 11/25/19 DW RN Subjective Subjective In Step down on the vent with now 100% Fio2 as there was a leak in trach. S/ P tracheostomy 11/24/19 and PEG 11/25/19 In atrial fib rate controlled on Lopressor 25 bid. In Covid isolation. One Covid is now negative Objective Last 24 Hour Vital Signs Date Time Temp Pulse Resp B/P (MAP) Pulse Ox O2 Delivery O2 Flow Rate FiO2 12/01/19 08:41 104 12/01/19 08:08 114 125/63 12/01/19 08:00 99.9 114 22 125/63 (83) 99 12/01/19 08:00 100 12/01/19 08:00 Mechanical Ventilator Mechanical Ventilator 12/01/19 07:15 105 16 45 12/01/19 04:00 98.0 89 16 110/62 (78) 100 12/01/19 04:00 100 12/01/19 04:00 Mechanical Ventilator Mechanical Ventilator 12/01/19 03:28 96 12/01/19 02:41 99.1 12/01/19 02:31 92 22 45 12/01/19 00:00 100 12/01/19 00:00 98.1 85 16 116/58 (77) 98 12/01/19 00:00 Mechanical Ventilator Mechanical Ventilator 11/30/19 23:32 90 11/30/19 22:50 93 18 45 11/30/19 20:03 84 121/69 11/30/19 20:00 100 11/30/19 20:00 Mechanical Ventilator Mechanical Ventilator 11/30/19 19:52 98.3 84 16 121/69 (86) 98 11/30/19 19:39 85 18 60 11/30/19 19:07 103 11/30/19 17:20 99.9 11/30/19 16:00 99.3 87 16 103/56 (72) 97 11/30/19 16:00 Mechanical Ventilator Mechanical Ventilator 11/30/19 16:00 100 11/30/19 16:00 96 11/30/19 14:30 87 23 45 11/30/19 12:00 45 11/30/19 12:00 Mechanical Ventilator Mechanical Ventilator 11/30/19 12:00 98 Intake and Output 11/30/19 12/01/19 19:00 07:00 Intake Total 805 ml 810 ml Output Total 700 ml 850 ml Balance 105 ml -40 ml Free Water 150 ml IV Total 55 ml 110 ml Tube Feeding 600 ml 550 ml Other 150 ml Output Urine Total 700 ml 850 ml # Bowel Movements 2 50 Laboratory Tests Test 11/30/19 17:23 11/30/19 23:01 12/01/19 04:00 12/01/19 04:53 POC Whole Blood Glucose 105 MG/DL (74-106) Pending Pending White Blood Count 9.4 K/UL (4.8-10.8) Red Blood Count 3.42 M/UL (4.20-5.40) L Hemoglobin 9.0 G/DL (12.0-16.0) L Hematocrit 30.3 % (37.0-47.0) L Mean Corpuscular Volume 89 FL (80-99) Mean Corpuscular Hemoglobin 26.4 PG (27.0-31.0) L Mean Corpuscular Hemoglobin Concent 29.8 G/DL (32.0-36.0) L Red Cell Distribution Width 17.7 % (11.6-14.8) H Platelet Count 243 K/UL (150-450) Mean Platelet Volume 6.5 FL (6.5-10.1) Neutrophils (%) (Auto) 83.0 % (45.0-75.0) H Lymphocytes (%) (Auto) 8.1 % (20.0-45.0) L Monocytes (%) (Auto) 6.3 % (1.0-10.0) Eosinophils (%) (Auto) 1.3 % (0.0-3.0) Basophils (%) (Auto) 1.3 % (0.0-2.0) Sodium Level 148 MMOL/L (136-145) H Potassium Level 3.9 MMOL/L (3.5-5.1) Chloride Level 109 MMOL/L (98-107) H Carbon Dioxide Level 37 MMOL/L (21-32) H Anion Gap 2 mmol/L (5-15) L Blood Urea Nitrogen 20 mg/dL (7-18) H Creatinine 0.8 MG/DL (0.55-1.30) Estimat Glomerular Filtration Rate > 60 mL/min (>60) Glucose Level 148 MG/DL (74-106) H Calcium Level 8.4 MG/DL (8.5-10.1) L Microbiology Date/Time Source Procedure Growth Status 11/30/19 11:15 Nasopharynx SARS-CoV-2 RdRp Gene Assay - Final Complete 11/30/19 11:15 Stool Clostridium difficile Toxin Assay - Final Complete Objective HEAD AND NECK: No JVD. Tracheostomy in place. LUNGS: Coarse rhonchi. CARDIOVASCULAR: Irregularly irregular. S1 and S2 with no gallop or murmur. ABDOMEN: Soft.PEG EXTREMITIES: 2 plus pitting edema. Gabe Snell MD Dec 01, 2019 11:27
--- NOTE | 2019-12-01 11:29 | Infectious Diseases Prog Note ---
"Assessment/Plan Assessment/Plan antibiotics : cefepime 8.5.20 - A 1. COVID 19 pneumonia on 45 percent Fi O2, PEEP 5, saturation 97 percent s/p remdesivir s/p ivermectin 7.31.20 2. respiratory failure s/p tracheostomy 3. leucocytosis 4. diabetes mellitus 5. hypertension 6. obesity 7. enterobacter | proteus | staph aureus pneumonia 8. c.diff colitis P 1. d/c cefepime 2. start po vancomycin 3. will follow up cultures 4. continue isolation Subjective ROS Limited/Unobtainable: Yes Allergies: Coded Allergies: No Known Allergies (Unverified , 11/06/19) Objective Last 24 Hour Vital Signs Date Time Temp Pulse Resp B/P (MAP) Pulse Ox O2 Delivery O2 Flow Rate FiO2 12/01/19 08:41 104 12/01/19 08:08 114 125/63 12/01/19 08:00 99.9 114 22 125/63 (83) 99 12/01/19 08:00 100 12/01/19 08:00 Mechanical Ventilator Mechanical Ventilator 12/01/19 07:15 105 16 45 12/01/19 04:00 98.0 89 16 110/62 (78) 100 12/01/19 04:00 100 12/01/19 04:00 Mechanical Ventilator Mechanical Ventilator 12/01/19 03:28 96 12/01/19 02:41 99.1 12/01/19 02:31 92 22 45 12/01/19 00:00 100 12/01/19 00:00 98.1 85 16 116/58 (77) 98 12/01/19 00:00 Mechanical Ventilator Mechanical Ventilator 11/30/19 23:32 90 11/30/19 22:50 93 18 45 11/30/19 20:03 84 121/69 11/30/19 20:00 100 11/30/19 20:00 Mechanical Ventilator Mechanical Ventilator 11/30/19 19:52 98.3 84 16 121/69 (86) 98 11/30/19 19:39 85 18 60 11/30/19 19:07 103 11/30/19 17:20 99.9 11/30/19 16:00 99.3 87 16 103/56 (72) 97 11/30/19 16:00 Mechanical Ventilator Mechanical Ventilator 11/30/19 16:00 100 11/30/19 16:00 96 11/30/19 14:30 87 23 45 11/30/19 12:00 45 11/30/19 12:00 Mechanical Ventilator Mechanical Ventilator 11/30/19 12:00 98 Height (Feet): 5 Height (Inches): 1.00 Weight (Pounds): 326 HEENT: status post trach Microbiology Date/Time Source Procedure Growth Status 11/30/19 11:15 Nasopharynx SARS-CoV-2 RdRp Gene Assay - Final Complete 11/30/19 11:15 Stool Clostridium difficile Toxin Assay - Final Complete Laboratory Tests Test 11/30/19 17:23 11/30/19 23:01 12/01/19 04:00 12/01/19 04:53 POC Whole Blood Glucose 105 MG/DL (74-106) Pending Pending White Blood Count 9.4 K/UL (4.8-10.8) Red Blood Count 3.42 M/UL (4.20-5.40) L Hemoglobin 9.0 G/DL (12.0-16.0) L Hematocrit 30.3 % (37.0-47.0) L Mean Corpuscular Volume 89 FL (80-99) Mean Corpuscular Hemoglobin 26.4 PG (27.0-31.0) L Mean Corpuscular Hemoglobin Concent 29.8 G/DL (32.0-36.0) L Red Cell Distribution Width 17.7 % (11.6-14.8) H Platelet Count 243 K/UL (150-450) Mean Platelet Volume 6.5 FL (6.5-10.1) Neutrophils (%) (Auto) 83.0 % (45.0-75.0) H Lymphocytes (%) (Auto) 8.1 % (20.0-45.0) L Monocytes (%) (Auto) 6.3 % (1.0-10.0) Eosinophils (%) (Auto) 1.3 % (0.0-3.0) Basophils (%) (Auto) 1.3 % (0.0-2.0) Sodium Level 148 MMOL/L (136-145) H Potassium Level 3.9 MMOL/L (3.5-5.1) Chloride Level 109 MMOL/L (98-107) H Carbon Dioxide Level 37 MMOL/L (21-32) H Anion Gap 2 mmol/L (5-15) L Blood Urea Nitrogen 20 mg/dL (7-18) H Creatinine 0.8 MG/DL (0.55-1.30) Estimat Glomerular Filtration Rate > 60 mL/min (>60) Glucose Level 148 MG/DL (74-106) H Calcium Level 8.4 MG/DL (8.5-10.1) L Current Medications Medications (Trade) Dose Ordered Sig/Robyn Route PRN Reason Start Time Stop Time Status Last Admin Dose Admin Acetaminophen (Tylenol) 650 mg Q4H PRN GT For Pain 11/30/19 17:45 12/30/19 17:44 11/30/19 18:24 Acetaminophen (Tylenol) 650 mg Q6H PRN GT Temp >100.5 11/29/19 15:00 12/12/19 14:59 12/01/19 02:11 Amiodarone HCl (Cordarone) 400 mg DAILY GT 11/30/19 09:00 02/18/20 09:29 12/01/19 08:07 Cefepime HCl 2 gm/ Dextrose 55 ml @ 110 mls/hr Q12H IVPB 11/30/19 00:00 12/02/19 11:59 11/30/19 23:00 Clonidine HCl (Catapres Tab) 0.1 mg Q4H PRN GT For High Blood Pressure 11/29/19 14:30 02/09/20 14:29 Dextrose (Dextrose 50%) 25 ml Q30M PRN IV Hypoglycemia 11/29/19 14:15 02/21/20 06:44 Dextrose (Dextrose 50%) 50 ml Q30M PRN IV Hypoglycemia 11/29/19 14:15 02/21/20 06:44 Famotidine (Pepcid) 20 mg BID GT 11/29/19 18:00 02/26/20 17:59 12/01/19 08:07 Folic Acid (Folate) 2 mg DAILY GT 11/30/19 09:00 12/15/19 08:59 12/01/19 08:07 Insulin Aspart (NovoLOG) EVERY 6 HOURS SUBQ 11/29/19 18:00 02/11/20 20:59 11/30/19 00:48 Insulin Detemir (Levemir) 10 units BID SUBQ 12/01/19 09:00 02/21/20 08:59 12/01/19 08:12 Lorazepam (Ativan 2mg/ml 1ml) 2 mg Q3H PRN IV For Anxiety 11/29/19 15:30 12/03/19 15:29 Metolazone (Zaroxolyn) 2.5 mg DAILY GT 11/30/19 09:00 12/28/19 09:29 12/01/19 08:07 Metoprolol Tartrate (Lopressor) 25 mg Q12HR GT 11/29/19 21:00 02/18/20 09:29 12/01/19 08:08 Rosette Bowman MD Dec 01, 2019 11:29"
[2019-12-01 12:00] VITALS: BP 130/69
--- NOTE | 2019-12-01 13:11 | Surgery Progress Note ---
Surgery Progress Note Subjective Procedure Performed tracheostomy Additional Comments trach dislodged yesterday and repositioned into place at bedside by myself trach stable respiratory improved good volumes now monitoring closely Objective Last 24 Hour Vital Signs Date Time Temp Pulse Resp B/P (MAP) Pulse Ox O2 Delivery O2 Flow Rate FiO2 12/01/19 12:13 112 12/01/19 12:00 100 12/01/19 12:00 Mechanical Ventilator Mechanical Ventilator 12/01/19 12:00 100.2 107 20 130/69 (89) 100 12/01/19 08:41 104 12/01/19 08:08 114 125/63 12/01/19 08:00 99.9 114 22 125/63 (83) 99 12/01/19 08:00 100 12/01/19 08:00 Mechanical Ventilator Mechanical Ventilator 12/01/19 07:15 105 16 45 12/01/19 04:00 98.0 89 16 110/62 (78) 100 12/01/19 04:00 100 12/01/19 04:00 Mechanical Ventilator Mechanical Ventilator 12/01/19 03:28 96 12/01/19 02:41 99.1 12/01/19 02:31 92 22 45 12/01/19 00:00 100 12/01/19 00:00 98.1 85 16 116/58 (77) 98 12/01/19 00:00 Mechanical Ventilator Mechanical Ventilator 11/30/19 23:32 90 11/30/19 22:50 93 18 45 11/30/19 20:03 84 121/69 11/30/19 20:00 100 11/30/19 20:00 Mechanical Ventilator Mechanical Ventilator 11/30/19 19:52 98.3 84 16 121/69 (86) 98 11/30/19 19:39 85 18 60 11/30/19 19:07 103 11/30/19 17:20 99.9 11/30/19 16:00 99.3 87 16 103/56 (72) 97 11/30/19 16:00 Mechanical Ventilator Mechanical Ventilator 11/30/19 16:00 100 11/30/19 16:00 96 11/30/19 14:30 87 23 45 I&O Intake and Output 11/30/19 12/01/19 19:00 07:00 Intake Total 805 ml 810 ml Output Total 700 ml 850 ml Balance 105 ml -40 ml Free Water 150 ml IV Total 55 ml 110 ml Tube Feeding 600 ml 550 ml Other 150 ml Output Urine Total 700 ml 850 ml # Bowel Movements 2 50 Dressing: saturated Wound: clean Cardiovascular: RSR Respiratory: clear Abdomen: non-tender, present bowel sounds Extremities: edema, no tenderness, no cyanosis Laboratory Tests Test 11/30/19 17:23 11/30/19 23:01 12/01/19 04:00 12/01/19 04:53 POC Whole Blood Glucose 105 MG/DL (74-106) Pending Pending White Blood Count 9.4 K/UL (4.8-10.8) Red Blood Count 3.42 M/UL (4.20-5.40) L Hemoglobin 9.0 G/DL (12.0-16.0) L Hematocrit 30.3 % (37.0-47.0) L Mean Corpuscular Volume 89 FL (80-99) Mean Corpuscular Hemoglobin 26.4 PG (27.0-31.0) L Mean Corpuscular Hemoglobin Concent 29.8 G/DL (32.0-36.0) L Red Cell Distribution Width 17.7 % (11.6-14.8) H Platelet Count 243 K/UL (150-450) Mean Platelet Volume 6.5 FL (6.5-10.1) Neutrophils (%) (Auto) 83.0 % (45.0-75.0) H Lymphocytes (%) (Auto) 8.1 % (20.0-45.0) L Monocytes (%) (Auto) 6.3 % (1.0-10.0) Eosinophils (%) (Auto) 1.3 % (0.0-3.0) Basophils (%) (Auto) 1.3 % (0.0-2.0) Sodium Level 148 MMOL/L (136-145) H Potassium Level 3.9 MMOL/L (3.5-5.1) Chloride Level 109 MMOL/L (98-107) H Carbon Dioxide Level 37 MMOL/L (21-32) H Anion Gap 2 mmol/L (5-15) L Blood Urea Nitrogen 20 mg/dL (7-18) H Creatinine 0.8 MG/DL (0.55-1.30) Estimat Glomerular Filtration Rate > 60 mL/min (>60) Glucose Level 148 MG/DL (74-106) H Calcium Level 8.4 MG/DL (8.5-10.1) L Plan Problems: (1) Weak (2) UTI (urinary tract infection) (3) Hypoxia (4) Epistaxis Assessment & Plan: Severe after taxis left nostril Rhino Rocket placed hemostasis noted over the course 24 hours hemoglobin stable Lovenox been stopped. The balloon of both ports of the Rhino Rocket were deflated today. The rocket itself was not removed and will monitor over the course next 24 hours hemostasis. If so will gently remove and plan for local monitoring. Currently wean ventilator as tolerated. Goals of extubation when possible. deflated balloon 11/08 removed trumpet 11/09 will monitor for bleeding wean vent plan extubation discussed with pulm (5) Fluid overload Assessment & Plan: Continue central venous catheter for now. Will anticipate removal once patient stable for extubation. Thank you for allowing me to participate patient's care picc in line out (6) Diabetes (7) CHF (congestive heart failure) (8) Afib (9) Multifocal pneumonia (10) 2019 novel coronavirus disease (COVID-19) Assessment & Plan: + wean vent extubated failed reintubated consider trach plan trach 8/ s/p trach comfortable (11) Respiratory failure Assessment & Plan: trach dislodged 11/29 with air leak evaluated at bedside and repositioned. improved now will monitor stable monitoring Ortiz Fleming Dec 01, 2019 13:11
--- NOTE | 2019-12-01 13:51 | General Progress Note ---
Assessment/Plan Problem List: (1) Afib ICD Codes: I48.91 - Unspecified atrial fibrillation SNOMED: 37832569 (2) Epistaxis ICD Codes: R04.0 - Epistaxis SNOMED: 534120466 (3) Weak ICD Codes: R53.1 - Weakness SNOMED: 26253285 (4) UTI (urinary tract infection) ICD Codes: N39.0 - Urinary tract infection, site not specified SNOMED: 05298836 (5) Diabetes ICD Codes: E11.9 - Type 2 diabetes mellitus without complications SNOMED: 77050005 (6) CHF (congestive heart failure) ICD Codes: I50.9 - Heart failure, unspecified SNOMED: 76668134 (7) Multifocal pneumonia ICD Codes: J18.9 - Pneumonia, unspecified organism SNOMED: 834583765 (8) 2019 novel coronavirus disease (COVID-19) ICD Codes: U07.1 - COVID-19 SNOMED: 094272900 (9) Respiratory failure ICD Codes: J96.90 - Respiratory failure, unspecified, unspecified whether with hypoxia or hypercapnia SNOMED: 245682044 Status: stable, progressing Assessment/Plan: vent abx bp bs control dc if clear Subjective Constitutional: Reports: weakness Allergies: Coded Allergies: No Known Allergies (Unverified , 11/06/19) All Systems: reviewed and negative except above Subjective trach vent altered Objective Last 24 Hour Vital Signs Date Time Temp Pulse Resp B/P (MAP) Pulse Ox O2 Delivery O2 Flow Rate FiO2 12/01/19 12:13 112 12/01/19 12:00 100 12/01/19 12:00 Mechanical Ventilator Mechanical Ventilator 12/01/19 12:00 100.2 107 20 130/69 (89) 100 12/01/19 08:41 104 12/01/19 08:08 114 125/63 12/01/19 08:00 99.9 114 22 125/63 (83) 99 12/01/19 08:00 100 12/01/19 08:00 Mechanical Ventilator Mechanical Ventilator 12/01/19 07:15 105 16 45 12/01/19 04:00 98.0 89 16 110/62 (78) 100 12/01/19 04:00 100 12/01/19 04:00 Mechanical Ventilator Mechanical Ventilator 12/01/19 03:28 96 12/01/19 02:41 99.1 12/01/19 02:31 92 22 45 12/01/19 00:00 100 12/01/19 00:00 98.1 85 16 116/58 (77) 98 12/01/19 00:00 Mechanical Ventilator Mechanical Ventilator 11/30/19 23:32 90 11/30/19 22:50 93 18 45 11/30/19 20:03 84 121/69 11/30/19 20:00 100 11/30/19 20:00 Mechanical Ventilator Mechanical Ventilator 11/30/19 19:52 98.3 84 16 121/69 (86) 98 11/30/19 19:39 85 18 60 11/30/19 19:07 103 11/30/19 17:20 99.9 11/30/19 16:00 99.3 87 16 103/56 (72) 97 11/30/19 16:00 Mechanical Ventilator Mechanical Ventilator 11/30/19 16:00 100 11/30/19 16:00 96 11/30/19 14:30 87 23 45 Intake and Output 11/30/19 12/01/19 19:00 07:00 Intake Total 805 ml 810 ml Output Total 700 ml 850 ml Balance 105 ml -40 ml Free Water 150 ml IV Total 55 ml 110 ml Tube Feeding 600 ml 550 ml Other 150 ml Output Urine Total 700 ml 850 ml # Bowel Movements 2 50 Laboratory Tests 11/30/19 17:23: POC Whole Blood Glucose 105 11/30/19 23:01: POC Whole Blood Glucose [Pending] 12/01/19 04:00: White Blood Count 9.4, Red Blood Count 3.42L, Hemoglobin 9.0L, Hematocrit 30.3L , Mean Corpuscular Volume 89, Mean Corpuscular Hemoglobin 26.4L, Mean Corpuscular Hemoglobin Concent 29.8L, Red Cell Distribution Width 17.7H, Platelet Count 243, Mean Platelet Volume 6.5, Neutrophils (%) (Auto) 83.0H, Lymphocytes (%) (Auto) 8.1L, Monocytes (%) (Auto) 6.3, Eosinophils (%) (Auto) 1.3, Basophils (%) (Auto) 1.3, Sodium Level 148H, Potassium Level 3.9, Chloride Level 109H, Carbon Dioxide Level 37H, Anion Gap 2L, Blood Urea Nitrogen 20H, Creatinine 0.8, Estimat Glomerular Filtration Rate > 60, Glucose Level 148H, Calcium Level 8.4L 12/01/19 04:53: POC Whole Blood Glucose [Pending] Height (Feet): 5 Height (Inches): 1.00 Weight (Pounds): 326 General Appearance: lethargic EENT: normal ENT inspection Neck: normal alignment Cardiovascular: normal rate, regular rhythm Respiratory/Chest: no respiratory distress, no accessory muscle use Extremities: normal inspection Skin: normal pigmentation Gustabo Carter Dec 01, 2019 13:51
[2019-12-01] MEDS: Vancomycin oral 125mg/2.5ml GT SCH ×3 (14:09→20:12)
[2019-12-01 16:00] VITALS: BP 115/54
[2019-12-01 20:00] VITALS: BP 110/53
[2019-12-02] VITALS: BP 115/62
[2019-12-02 04:00] VITALS: BP 129/59
[2019-12-02] MEDS: NovoLOG Insulin Flexpen SUBQ SCH ×3 (05:12→17:02)
--- NOTE | 2019-12-02 07:05 | General Progress Note ---
Assessment/Plan Problem List: (1) Hypoxia ICD Codes: R09.02 - Hypoxemia SNOMED: 095584517 (2) CHF (congestive heart failure) ICD Codes: I50.9 - Heart failure, unspecified SNOMED: 02408137 (3) Diabetes ICD Codes: E11.9 - Type 2 diabetes mellitus without complications SNOMED: 32460830 (4) Fluid overload ICD Codes: E87.70 - Fluid overload, unspecified SNOMED: 12123102 (5) 2019 novel coronavirus disease (COVID-19) ICD Codes: U07.1 - COVID-19 SNOMED: 324178971 Status: stable, progressing Assessment/Plan: continue Levemir 10 units bid continue Novolog sliding scale every 6 hours hypoglycemia protocol in order repeat thyroid function improved - no need for thyroid medication Subjective ROS Limited/Unobtainable: Yes Allergies: Coded Allergies: No Known Allergies (Unverified , 11/06/19) Subjective events noted glucose values are stable Item Value Date Time Bedside Blood Glucose 166 mg/dl H 12/02/19 0512 Bedside Blood Glucose 138 mg/dl H 12/01/19 2300 Bedside Blood Glucose 121 mg/dl H 12/01/19 1818 Bedside Blood Glucose 151 mg/dl H 12/01/19 1253 Bedside Blood Glucose 133 mg/dl H 12/01/19 0812 Bedside Blood Glucose 133 mg/dl H 12/01/19 0500 Bedside Blood Glucose 137 mg/dl H 11/30/19 2307 Objective Last 24 Hour Vital Signs Date Time Temp Pulse Resp B/P (MAP) Pulse Ox O2 Delivery O2 Flow Rate FiO2 12/02/19 04:00 98.0 94 18 129/59 (82) 100 12/02/19 04:00 Mechanical Ventilator Mechanical Ventilator 12/02/19 04:00 40 12/02/19 03:41 95 12/02/19 02:53 85 22 40 12/02/19 00:45 92 18 40 12/02/19 00:00 40 12/02/19 00:00 98.3 83 18 115/62 (79) 99 12/02/19 00:00 Mechanical Ventilator Mechanical Ventilator 12/01/19 23:27 101 12/01/19 22:59 95 20 40 12/01/19 20:00 98.1 77 18 110/53 (72) 100 12/01/19 20:00 40 12/01/19 20:00 77 110/53 12/01/19 20:00 Mechanical Ventilator Mechanical Ventilator 12/01/19 19:34 88 12/01/19 19:28 93 18 40 12/01/19 16:52 87 12/01/19 16:00 40 12/01/19 16:00 99.5 82 18 115/54 (74) 99 12/01/19 16:00 Mechanical Ventilator Mechanical Ventilator 12/01/19 15:26 89 19 45 12/01/19 12:13 112 12/01/19 12:00 100 12/01/19 12:00 Mechanical Ventilator Mechanical Ventilator 12/01/19 12:00 100.2 107 20 130/69 (89) 100 12/01/19 11:13 99 12/01/19 11:13 89 16 45 12/01/19 08:41 104 12/01/19 08:08 114 125/63 12/01/19 08:00 99.9 114 22 125/63 (83) 99 12/01/19 08:00 100 12/01/19 08:00 Mechanical Ventilator Mechanical Ventilator 12/01/19 07:15 105 16 45 Intake and Output 12/01/19 12/02/19 19:00 07:00 Intake Total 750 ml 700 ml Output Total 1175 ml Balance 750 ml -475 ml Free Water 200 ml 150 ml Tube Feeding 550 ml 550 ml Output Urine Total 925 ml Stool Total 250 ml Laboratory Tests 12/01/19 22:53: POC Whole Blood Glucose [Pending] 12/02/19 05:09: POC Whole Blood Glucose [Pending] Height (Feet): 5 Height (Inches): 1.00 Weight (Pounds): 321 Objective Current Medications Medications (Trade) Dose Ordered Sig/Robyn Route PRN Reason Start Time Stop Time Status Last Admin Dose Admin Acetaminophen (Tylenol) 650 mg Q4H PRN GT For Pain 11/30/19 17:45 12/30/19 17:44 11/30/19 18:24 Acetaminophen (Tylenol) 650 mg Q6H PRN GT Temp >100.5 11/29/19 15:00 12/12/19 14:59 12/01/19 02:11 Amiodarone HCl (Cordarone) 400 mg DAILY GT 11/30/19 09:00 02/18/20 09:29 12/01/19 08:07 Clonidine HCl (Catapres Tab) 0.1 mg Q4H PRN GT For High Blood Pressure 11/29/19 14:30 02/09/20 14:29 Dextrose (Dextrose 50%) 25 ml Q30M PRN IV Hypoglycemia 11/29/19 14:15 02/21/20 06:44 Dextrose (Dextrose 50%) 50 ml Q30M PRN IV Hypoglycemia 11/29/19 14:15 02/21/20 06:44 Famotidine (Pepcid) 20 mg BID GT 11/29/19 18:00 02/26/20 17:59 12/01/19 18:26 Folic Acid (Folate) 2 mg DAILY GT 11/30/19 09:00 12/15/19 08:59 12/01/19 08:07 Insulin Aspart (NovoLOG) EVERY 6 HOURS SUBQ 11/29/19 18:00 02/11/20 20:59 12/02/19 05:12 Insulin Detemir (Levemir) 10 units BID SUBQ 12/01/19 09:00 02/21/20 08:59 12/01/19 18:18 Lorazepam (Ativan 2mg/ml 1ml) 2 mg Q3H PRN IV For Anxiety 11/29/19 15:30 12/03/19 15:29 Metolazone (Zaroxolyn) 2.5 mg DAILY GT 11/30/19 09:00 12/28/19 09:29 12/01/19 08:07 Metoprolol Tartrate (Lopressor) 25 mg Q12HR GT 11/29/19 21:00 02/18/20 09:29 12/01/19 08:08 Vancomycin HCl (Firvanq) 125 mg FOUR TIMES A DAY GT 12/01/19 13:00 12/08/19 12:59 12/01/19 20:12 Alphonse Ojeda MD Dec 02, 2019 07:05
[2019-12-02 08:00] VITALS: BP 116/56
[2019-12-02] MEDS: metOLazone 2.5 MG TAB GT SCH (08:26)
[2019-12-02] MEDS: Vancomycin oral 125mg/2.5ml GT SCH ×4 (08:26→20:12)
[2019-12-02] MEDS: Amiodarone 200mg tab GT SCH (08:27)
[2019-12-02] MEDS: Levemir Flexpen SUBQ SCH ×2 (08:38→17:37)
--- NOTE | 2019-12-02 08:39 | General Progress Note ---
Assessment/Plan Problem List: (1) Respiratory failure ICD Codes: J96.90 - Respiratory failure, unspecified, unspecified whether with hypoxia or hypercapnia SNOMED: 058800190 (2) 2019 novel coronavirus disease (COVID-19) ICD Codes: U07.1 - COVID-19 SNOMED: 267405363 (3) Multifocal pneumonia ICD Codes: J18.9 - Pneumonia, unspecified organism SNOMED: 005139701 (4) Afib ICD Codes: I48.91 - Unspecified atrial fibrillation SNOMED: 54752373 (5) CHF (congestive heart failure) ICD Codes: I50.9 - Heart failure, unspecified SNOMED: 11398233 (6) Diabetes ICD Codes: E11.9 - Type 2 diabetes mellitus without complications SNOMED: 25488984 (7) Fluid overload ICD Codes: E87.70 - Fluid overload, unspecified SNOMED: 53313510 (8) Epistaxis ICD Codes: R04.0 - Epistaxis SNOMED: 988691592 Status: stable, progressing Assessment/Plan: fu H&H prn blood transfusion slow drop in H&H without obvious bleeding repeat stool ob GTF patient has rectal tube will fu Subjective ROS Limited/Unobtainable: No Allergies: Coded Allergies: No Known Allergies (Unverified , 11/06/19) Objective Last 24 Hour Vital Signs Date Time Temp Pulse Resp B/P (MAP) Pulse Ox O2 Delivery O2 Flow Rate FiO2 12/02/19 08:29 94 116/56 12/02/19 07:17 105 26 40 12/02/19 04:00 98.0 94 18 129/59 (82) 100 12/02/19 04:00 Mechanical Ventilator Mechanical Ventilator 12/02/19 04:00 40 12/02/19 03:41 95 12/02/19 02:53 85 22 40 12/02/19 00:45 92 18 40 12/02/19 00:00 40 12/02/19 00:00 98.3 83 18 115/62 (79) 99 12/02/19 00:00 Mechanical Ventilator Mechanical Ventilator 12/01/19 23:27 101 12/01/19 22:59 95 20 40 12/01/19 20:00 98.1 77 18 110/53 (72) 100 12/01/19 20:00 40 12/01/19 20:00 77 110/53 12/01/19 20:00 Mechanical Ventilator Mechanical Ventilator 12/01/19 19:34 88 12/01/19 19:28 93 18 40 12/01/19 16:52 87 12/01/19 16:00 40 12/01/19 16:00 99.5 82 18 115/54 (74) 99 12/01/19 16:00 Mechanical Ventilator Mechanical Ventilator 12/01/19 15:26 89 19 45 12/01/19 12:13 112 12/01/19 12:00 100 12/01/19 12:00 Mechanical Ventilator Mechanical Ventilator 12/01/19 12:00 100.2 107 20 130/69 (89) 100 12/01/19 11:13 99 12/01/19 11:13 89 16 45 12/01/19 08:41 104 Intake and Output 12/01/19 12/02/19 19:00 07:00 Intake Total 750 ml 750 ml Output Total 1175 ml Balance 750 ml -425 ml Free Water 200 ml 150 ml Tube Feeding 550 ml 600 ml Output Urine Total 925 ml Stool Total 250 ml Laboratory Tests 12/01/19 22:53: POC Whole Blood Glucose [Pending] 12/02/19 05:09: POC Whole Blood Glucose [Pending] 12/02/19 08:16: POC Whole Blood Glucose 180H Height (Feet): 5 Height (Inches): 1.00 Weight (Pounds): 321 General Appearance: no apparent distress, alert EENT: normal ENT inspection Neck: supple Cardiovascular: normal rate Respiratory/Chest: decreased breath sounds Abdomen: normal bowel sounds, non tender, soft Extremities: non-tender Case Patel MD Dec 02, 2019 08:39
--- NOTE | 2019-12-02 09:28 | General Progress Note ---
Assessment/Plan Problem List: (1) Afib ICD Codes: I48.91 - Unspecified atrial fibrillation SNOMED: 31980583 (2) Epistaxis ICD Codes: R04.0 - Epistaxis SNOMED: 410427227 (3) Weak ICD Codes: R53.1 - Weakness SNOMED: 37744731 (4) UTI (urinary tract infection) ICD Codes: N39.0 - Urinary tract infection, site not specified SNOMED: 63958415 (5) Diabetes ICD Codes: E11.9 - Type 2 diabetes mellitus without complications SNOMED: 64181367 (6) CHF (congestive heart failure) ICD Codes: I50.9 - Heart failure, unspecified SNOMED: 06414675 (7) Multifocal pneumonia ICD Codes: J18.9 - Pneumonia, unspecified organism SNOMED: 907153252 (8) 2019 novel coronavirus disease (COVID-19) ICD Codes: U07.1 - COVID-19 SNOMED: 451135112 (9) Respiratory failure ICD Codes: J96.90 - Respiratory failure, unspecified, unspecified whether with hypoxia or hypercapnia SNOMED: 866380571 Status: stable, progressing Assessment/Plan: vent abx bp bs control cbc bmp am dc if clear Subjective Constitutional: Reports: weakness Allergies: Coded Allergies: No Known Allergies (Unverified , 11/06/19) All Systems: reviewed and negative except above Subjective trach vent altered Objective Last 24 Hour Vital Signs Date Time Temp Pulse Resp B/P (MAP) Pulse Ox O2 Delivery O2 Flow Rate FiO2 12/02/19 09:18 101 23 40 12/02/19 08:29 94 116/56 12/02/19 08:00 98.1 89 18 116/56 (76) 100 12/02/19 08:00 40 12/02/19 08:00 Mechanical Ventilator Mechanical Ventilator 12/02/19 07:17 105 26 40 12/02/19 04:00 98.0 94 18 129/59 (82) 100 12/02/19 04:00 Mechanical Ventilator Mechanical Ventilator 12/02/19 04:00 40 12/02/19 03:41 95 12/02/19 02:53 85 22 40 12/02/19 00:45 92 18 40 12/02/19 00:00 40 12/02/19 00:00 98.3 83 18 115/62 (79) 99 12/02/19 00:00 Mechanical Ventilator Mechanical Ventilator 12/01/19 23:27 101 12/01/19 22:59 95 20 40 12/01/19 20:00 98.1 77 18 110/53 (72) 100 12/01/19 20:00 40 12/01/19 20:00 77 110/53 12/01/19 20:00 Mechanical Ventilator Mechanical Ventilator 12/01/19 19:34 88 12/01/19 19:28 93 18 40 12/01/19 16:52 87 12/01/19 16:00 40 12/01/19 16:00 99.5 82 18 115/54 (74) 99 12/01/19 16:00 Mechanical Ventilator Mechanical Ventilator 12/01/19 15:26 89 19 45 12/01/19 12:13 112 12/01/19 12:00 100 12/01/19 12:00 Mechanical Ventilator Mechanical Ventilator 12/01/19 12:00 100.2 107 20 130/69 (89) 100 12/01/19 11:13 99 12/01/19 11:13 89 16 45 Intake and Output 12/01/19 12/02/19 19:00 07:00 Intake Total 750 ml 750 ml Output Total 1175 ml Balance 750 ml -425 ml Free Water 200 ml 150 ml Tube Feeding 550 ml 600 ml Output Urine Total 925 ml Stool Total 250 ml Laboratory Tests 12/01/19 22:53: POC Whole Blood Glucose [Pending] 12/02/19 05:09: POC Whole Blood Glucose [Pending] 12/02/19 08:16: POC Whole Blood Glucose 180H Height (Feet): 5 Height (Inches): 1.00 Weight (Pounds): 321 General Appearance: lethargic EENT: normal ENT inspection Neck: normal alignment Cardiovascular: normal rate, regular rhythm Respiratory/Chest: no respiratory distress, no accessory muscle use Extremities: normal inspection Skin: normal pigmentation Gustabo Carter DO Dec 02, 2019 09:28
--- NOTE | 2019-12-02 09:55 | Nephrology Progress Note ---
Assessment/Plan Problem List: (1) Electrolyte imbalance (2) Diabetes (3) 2019 novel coronavirus disease (COVID-19) (4) Respiratory failure Assessment 1. COVID-19 pneumonia. 2. Diabetes and hyperglycemia 3. Hypertension. 4. Hypoxic respiratory failure 5. Morbid obesity with BMI of 65.5 6. Nasal bleeding 7. Lactic acidosis 8. Hyperkalemia Plan December 01: Remains stable from renal standpoint of view. November 30: Lab reviewed. Renal parameters stable. Continue per consultants. November 29: Lab reviewed. Renal parameters stable. Continue per consultants. November 28: Lab reviewed. Phosphorus supplement given. Discussed with RN. Continue to monitor renal parameters. November 27: Lab reviewed. Serum sodium improved. Will start low-dose Zaroxolyn. Change IV Pepcid to GT route. Remains full code. Monitor renal parameters and electrolytes. November 26: Lab reviewed. Serum sodium elevated. 500 cc D5W bolus given. Potassium supplement given. Patient remains full code. Continue per consultants. November 25: Lab reviewed. Patient has trach connected to vent. Patient also has PEG. Continue per consultants. Medication list reviewed. November 24: Lab reviewed. Potassium IV given. Has tracheostomy to vent. Has PEG. Continue per consultants. November 23: Labs reviewed. Creatinine higher to 1.4. Due for trach today. Suggest to stop IV Lasix. November 22: Renal parameters stable. Medication list reviewed. Continue same management per consultants. November 21: Renal parameters stable. On IV Lasix. Edematous. Will order few doses of albumin 25%. Continue per consultants. November 20: Repeat serum potassium again normal. Renal parameters normal. Continue per consultants. November 19: Repeat serum potassium normal. Renal parameters within normal limit. Continue per consultants. November 18: Levemir stopped since IV fluid and dexamethasone are discontinued and patient blood sugar went down. Renal parameters are stable. Continues to be on ventilator. Previously: Renal parameters stable Weaning is being attempted patient's urine output is low. We will give a trial of albumin and Lasix, As needed Discussed with RN Stop IV to D5W 75 cc an hour Levemir 20 units subcu every 12 hours Kayexalate for high potassium as needed Monitor electrolytes and renal parameters Tight blood sugar control, long-acting insulin as needed Keep the blood pressure in check Per orders Subjective ROS Limited/Unobtainable: Yes Objective Objective Last 24 Hour Vital Signs Date Time Temp Pulse Resp B/P (MAP) Pulse Ox O2 Delivery O2 Flow Rate FiO2 12/02/19 09:18 101 23 40 12/02/19 08:29 94 116/56 12/02/19 08:00 98.1 89 18 116/56 (76) 100 12/02/19 08:00 40 12/02/19 08:00 95 12/02/19 08:00 Mechanical Ventilator Mechanical Ventilator 12/02/19 07:17 105 26 40 12/02/19 04:00 98.0 94 18 129/59 (82) 100 12/02/19 04:00 Mechanical Ventilator Mechanical Ventilator 12/02/19 04:00 40 12/02/19 03:41 95 12/02/19 02:53 85 22 40 12/02/19 00:45 92 18 40 12/02/19 00:00 40 12/02/19 00:00 98.3 83 18 115/62 (79) 99 12/02/19 00:00 Mechanical Ventilator Mechanical Ventilator 12/01/19 23:27 101 12/01/19 22:59 95 20 40 12/01/19 20:00 98.1 77 18 110/53 (72) 100 12/01/19 20:00 40 12/01/19 20:00 77 110/53 12/01/19 20:00 Mechanical Ventilator Mechanical Ventilator 12/01/19 19:34 88 12/01/19 19:28 93 18 40 12/01/19 16:52 87 12/01/19 16:00 40 12/01/19 16:00 99.5 82 18 115/54 (74) 99 12/01/19 16:00 Mechanical Ventilator Mechanical Ventilator 12/01/19 15:26 89 19 45 12/01/19 12:13 112 12/01/19 12:00 100 12/01/19 12:00 Mechanical Ventilator Mechanical Ventilator 12/01/19 12:00 100.2 107 20 130/69 (89) 100 12/01/19 11:13 99 12/01/19 11:13 89 16 45 Intake and Output 12/01/19 12/02/19 19:00 07:00 Intake Total 750 ml 750 ml Output Total 1175 ml Balance 750 ml -425 ml Free Water 200 ml 150 ml Tube Feeding 550 ml 600 ml Output Urine Total 925 ml Stool Total 250 ml Laboratory Tests 12/01/19 22:53: POC Whole Blood Glucose [Pending] 12/02/19 05:09: POC Whole Blood Glucose [Pending] 12/02/19 08:16: POC Whole Blood Glucose 180H Height (Feet): 5 Height (Inches): 1.00 Weight (Pounds): 321 General Appearance: no apparent distress EENT: other - Trach and vent Cardiovascular: tachycardia Respiratory/Chest: decreased breath sounds Abdomen: distended Papa Young MD Dec 02, 2019 09:55
[2019-12-02] MEDS: LORazepam Inj 2mg/ml 1ml IV PRN ×2 (10:07→22:34)
[2019-12-02] MEDS ORDERED: NS 275ml ONE (10:17)
--- NOTE | 2019-12-02 10:40 | Pulmonology Progress Note ---
Subjective ROS Limited/Unobtainable: Yes Interval Events: Re-intubated on 11/19/19; Status post tracheostomy 11/24/2019 Constitutional: Denies: fever HEENT: Repors: no symptoms Respiratory: Reports: dry cough, shortness of breath Cardiovascular: Reports: no symptoms Gastrointestinal/Abdominal: Reports: no symptoms Allergies: Coded Allergies: No Known Allergies (Unverified , 11/06/19) All Systems: reviewed and negative except above Objective Last 24 Hour Vital Signs Date Time Temp Pulse Resp B/P (MAP) Pulse Ox O2 Delivery O2 Flow Rate FiO2 12/02/19 09:18 101 23 40 12/02/19 08:29 94 116/56 12/02/19 08:00 98.1 89 18 116/56 (76) 100 12/02/19 08:00 40 12/02/19 08:00 95 12/02/19 08:00 Mechanical Ventilator Mechanical Ventilator 12/02/19 07:17 105 26 40 12/02/19 04:00 98.0 94 18 129/59 (82) 100 12/02/19 04:00 Mechanical Ventilator Mechanical Ventilator 12/02/19 04:00 40 12/02/19 03:41 95 12/02/19 02:53 85 22 40 12/02/19 00:45 92 18 40 12/02/19 00:00 40 12/02/19 00:00 98.3 83 18 115/62 (79) 99 12/02/19 00:00 Mechanical Ventilator Mechanical Ventilator 12/01/19 23:27 101 12/01/19 22:59 95 20 40 12/01/19 20:00 98.1 77 18 110/53 (72) 100 12/01/19 20:00 40 12/01/19 20:00 77 110/53 12/01/19 20:00 Mechanical Ventilator Mechanical Ventilator 12/01/19 19:34 88 12/01/19 19:28 93 18 40 12/01/19 16:52 87 12/01/19 16:00 40 12/01/19 16:00 99.5 82 18 115/54 (74) 99 12/01/19 16:00 Mechanical Ventilator Mechanical Ventilator 12/01/19 15:26 89 19 45 12/01/19 12:13 112 12/01/19 12:00 100 12/01/19 12:00 Mechanical Ventilator Mechanical Ventilator 12/01/19 12:00 100.2 107 20 130/69 (89) 100 12/01/19 11:13 99 12/01/19 11:13 89 16 45 Intake and Output 12/01/19 12/02/19 19:00 07:00 Intake Total 750 ml 750 ml Output Total 1175 ml Balance 750 ml -425 ml Free Water 200 ml 150 ml Tube Feeding 550 ml 600 ml Output Urine Total 925 ml Stool Total 250 ml General Appearance: no acute distress HEENT: normocephalic, status post trach Respiratory: decreased breath sounds Cardiovascular: normal peripheral pulses Abdomen: normal bowel sounds Extremities: no cyanosis Microbiology Date/Time Source Procedure Growth Status 12/01/19 09:41 Nasopharynx SARS-CoV-2 RdRp Gene Assay - Final Complete 11/30/19 11:15 Nasopharynx SARS-CoV-2 RdRp Gene Assay - Final Complete 11/30/19 11:15 Stool Clostridium difficile Toxin Assay - Final Complete Laboratory Tests 12/01/19 22:53: POC Whole Blood Glucose [Pending] 12/02/19 05:09: POC Whole Blood Glucose [Pending] 12/02/19 08:16: POC Whole Blood Glucose 180H Current Medications Medications (Trade) Dose Ordered Sig/Robyn Route PRN Reason Start Time Stop Time Status Last Admin Dose Admin Acetaminophen (Tylenol) 650 mg Q4H PRN GT For Pain 11/30/19 17:45 12/30/19 17:44 11/30/19 18:24 Acetaminophen (Tylenol) 650 mg Q6H PRN GT Temp >100.5 11/29/19 15:00 12/12/19 14:59 12/01/19 02:11 Amiodarone HCl (Cordarone) 400 mg DAILY GT 11/30/19 09:00 02/18/20 09:29 12/02/19 08:27 Clonidine HCl (Catapres Tab) 0.1 mg Q4H PRN GT For High Blood Pressure 11/29/19 14:30 02/09/20 14:29 Dextrose (Dextrose 50%) 25 ml Q30M PRN IV Hypoglycemia 11/29/19 14:15 02/21/20 06:44 Dextrose (Dextrose 50%) 50 ml Q30M PRN IV Hypoglycemia 11/29/19 14:15 02/21/20 06:44 Famotidine (Pepcid) 20 mg BID GT 11/29/19 18:00 02/26/20 17:59 12/02/19 08:27 Folic Acid (Folate) 2 mg DAILY GT 11/30/19 09:00 12/15/19 08:59 12/02/19 08:28 Insulin Aspart (NovoLOG) EVERY 6 HOURS SUBQ 11/29/19 18:00 02/11/20 20:59 12/02/19 05:12 Insulin Detemir (Levemir) 10 units BID SUBQ 12/01/19 09:00 02/21/20 08:59 12/02/19 08:38 Lorazepam (Ativan 2mg/ml 1ml) 2 mg Q3H PRN IV For Anxiety 11/29/19 15:30 12/03/19 15:29 12/02/19 10:07 Metolazone (Zaroxolyn) 2.5 mg DAILY GT 11/30/19 09:00 12/28/19 09:29 12/02/19 08:26 Metoprolol Tartrate (Lopressor) 25 mg Q12HR GT 11/29/19 21:00 02/18/20 09:29 12/02/19 08:29 Vancomycin HCl (Firvanq) 125 mg FOUR TIMES A DAY GT 12/01/19 13:00 12/08/19 12:59 12/02/19 08:26 Assessment/Plan Assessment/Plan IMPRESSION: 1. COVID-19 pneumonia. 2. Diabetes mellitus and hypertension. 3. Lactic acidemia. 4. Epistaxis 5. Respiratory failure; failed extubation 6. S/p trach/PEG DISCUSSION: Careful and close monitoring. Continue medications status post tracheostomy Begin weaning; trach collar S/p PEG no longer on Lasix I will follow carefully Dc planning to sub-acute Lakeisha Zavaleta Omar Syed MD Dec 02, 2019 10:40
--- NOTE | 2019-12-02 11:00 | Infectious Diseases Prog Note ---
"Assessment/Plan Assessment/Plan antibiotics : vancomycin 8..20 - A 1. COVID 19 pneumonia s/p remdesivir s/p ivermectin 7.31.20 COVID test negative x 2 2. respiratory failure s/p tracheostomy 3. leucocytosis resolved 4. diabetes mellitus 5. hypertension 6. obesity 7. enterobacter | proteus | staph aureus pneumonia 8. c.diff colitis P 1. continue po vancomycin 8 more days 3. will follow up cultures 4. continue isolation Subjective ROS Limited/Unobtainable: Yes Allergies: Coded Allergies: No Known Allergies (Unverified , 11/06/19) Objective Last 24 Hour Vital Signs Date Time Temp Pulse Resp B/P (MAP) Pulse Ox O2 Delivery O2 Flow Rate FiO2 12/02/19 09:18 101 23 40 12/02/19 08:29 94 116/56 12/02/19 08:00 98.1 89 18 116/56 (76) 100 12/02/19 08:00 40 12/02/19 08:00 95 12/02/19 08:00 Mechanical Ventilator Mechanical Ventilator 12/02/19 07:17 105 26 40 12/02/19 04:00 98.0 94 18 129/59 (82) 100 12/02/19 04:00 Mechanical Ventilator Mechanical Ventilator 12/02/19 04:00 40 12/02/19 03:41 95 12/02/19 02:53 85 22 40 12/02/19 00:45 92 18 40 12/02/19 00:00 40 12/02/19 00:00 98.3 83 18 115/62 (79) 99 12/02/19 00:00 Mechanical Ventilator Mechanical Ventilator 12/01/19 23:27 101 12/01/19 22:59 95 20 40 12/01/19 20:00 98.1 77 18 110/53 (72) 100 12/01/19 20:00 40 12/01/19 20:00 77 110/53 12/01/19 20:00 Mechanical Ventilator Mechanical Ventilator 12/01/19 19:34 88 12/01/19 19:28 93 18 40 12/01/19 16:52 87 12/01/19 16:00 40 12/01/19 16:00 99.5 82 18 115/54 (74) 99 12/01/19 16:00 Mechanical Ventilator Mechanical Ventilator 12/01/19 15:26 89 19 45 12/01/19 12:13 112 12/01/19 12:00 100 12/01/19 12:00 Mechanical Ventilator Mechanical Ventilator 12/01/19 12:00 100.2 107 20 130/69 (89) 100 12/01/19 11:13 99 12/01/19 11:13 89 16 45 Height (Feet): 5 Height (Inches): 1.00 Weight (Pounds): 321 HEENT: status post trach Respiratory/Chest: lungs clear Cardiovascular: normal rate, regular rhythm, no gallop/murmur Abdomen: soft, non tender, other - GT Extremities: no edema Microbiology Date/Time Source Procedure Growth Status 12/01/19 09:41 Nasopharynx SARS-CoV-2 RdRp Gene Assay - Final Complete 11/30/19 11:15 Nasopharynx SARS-CoV-2 RdRp Gene Assay - Final Complete 11/30/19 11:15 Stool Clostridium difficile Toxin Assay - Final Complete Laboratory Tests Test 12/01/19 22:53 12/02/19 05:09 12/02/19 08:16 POC Whole Blood Glucose Pending Pending 180 MG/DL (74-106) H Current Medications Medications (Trade) Dose Ordered Sig/Robyn Route PRN Reason Start Time Stop Time Status Last Admin Dose Admin Acetaminophen (Tylenol) 650 mg Q4H PRN GT For Pain 11/30/19 17:45 12/30/19 17:44 11/30/19 18:24 Acetaminophen (Tylenol) 650 mg Q6H PRN GT Temp >100.5 11/29/19 15:00 12/12/19 14:59 12/01/19 02:11 Amiodarone HCl (Cordarone) 400 mg DAILY GT 11/30/19 09:00 02/18/20 09:29 12/02/19 08:27 Clonidine HCl (Catapres Tab) 0.1 mg Q4H PRN GT For High Blood Pressure 11/29/19 14:30 02/09/20 14:29 Dextrose (Dextrose 50%) 25 ml Q30M PRN IV Hypoglycemia 11/29/19 14:15 02/21/20 06:44 Dextrose (Dextrose 50%) 50 ml Q30M PRN IV Hypoglycemia 11/29/19 14:15 02/21/20 06:44 Famotidine (Pepcid) 20 mg BID GT 11/29/19 18:00 02/26/20 17:59 12/02/19 08:27 Folic Acid (Folate) 2 mg DAILY GT 11/30/19 09:00 12/15/19 08:59 12/02/19 08:28 Insulin Aspart (NovoLOG) EVERY 6 HOURS SUBQ 11/29/19 18:00 02/11/20 20:59 12/02/19 05:12 Insulin Detemir (Levemir) 10 units BID SUBQ 12/01/19 09:00 02/21/20 08:59 12/02/19 08:38 Lorazepam (Ativan 2mg/ml 1ml) 2 mg Q3H PRN IV For Anxiety 11/29/19 15:30 12/03/19 15:29 12/02/19 10:07 Metolazone (Zaroxolyn) 2.5 mg DAILY GT 11/30/19 09:00 12/28/19 09:29 12/02/19 08:26 Metoprolol Tartrate (Lopressor) 25 mg Q12HR GT 11/29/19 21:00 02/18/20 09:29 12/02/19 08:29 Vancomycin HCl (Firvanq) 125 mg FOUR TIMES A DAY GT 12/01/19 13:00 12/08/19 12:59 12/02/19 08:26 Rosette Bowman MD Dec 02, 2019 11:00"
[2019-12-02 12:00] VITALS: BP 114/58
--- NOTE | 2019-12-02 14:29 | Cardiac Electrophysiology PN ---
Assessment/Plan Assessment/Plan 1. Paroxysmal atrial fibrillation. On metoprolol 25 bid and Amiodarone 400 daily Off anticoagulation for hematuria and black stool EF 55% on echo. 2. S/P Shock. Off pressors. 3. COVID positive pneumonia. Now negative x2 and off isolation 4. Diabetes, on insulin. 5. Respiratory failure on the Vent. S/P Tracheostomy 11/24/19 6. S/P Massive nasal bleed. 7. Severe LE edema. 8. Dysphagia, S/P PEG 11/25/19 DW RN Subjective Subjective In Step down on the vent with now 40% Fio2 S/P tracheostomy 11/24/19 and PEG 11/25/19 In atrial fib rate controlled on Lopressor 25 bid. Off Covid isolation as 2 Covid is now negative Objective Last 24 Hour Vital Signs Date Time Temp Pulse Resp B/P (MAP) Pulse Ox O2 Delivery O2 Flow Rate FiO2 12/02/19 12:55 82 23 40 12/02/19 12:00 Mechanical Ventilator Mechanical Ventilator 12/02/19 12:00 83 12/02/19 12:00 40 12/02/19 12:00 99.0 82 18 114/58 (76) 100 12/02/19 10:51 77 20 40 12/02/19 09:18 101 23 40 12/02/19 08:29 94 116/56 12/02/19 08:00 98.1 89 18 116/56 (76) 100 12/02/19 08:00 40 12/02/19 08:00 95 12/02/19 08:00 Mechanical Ventilator Mechanical Ventilator 12/02/19 07:17 105 26 40 12/02/19 04:00 98.0 94 18 129/59 (82) 100 12/02/19 04:00 Mechanical Ventilator Mechanical Ventilator 12/02/19 04:00 40 12/02/19 03:41 95 12/02/19 02:53 85 22 40 12/02/19 00:45 92 18 40 12/02/19 00:00 40 12/02/19 00:00 98.3 83 18 115/62 (79) 99 12/02/19 00:00 Mechanical Ventilator Mechanical Ventilator 12/01/19 23:27 101 12/01/19 22:59 95 20 40 12/01/19 20:00 98.1 77 18 110/53 (72) 100 12/01/19 20:00 40 12/01/19 20:00 77 110/53 12/01/19 20:00 Mechanical Ventilator Mechanical Ventilator 12/01/19 19:34 88 12/01/19 19:28 93 18 40 12/01/19 16:52 87 12/01/19 16:00 40 12/01/19 16:00 99.5 82 18 115/54 (74) 99 12/01/19 16:00 Mechanical Ventilator Mechanical Ventilator 12/01/19 15:26 89 19 45 Intake and Output 12/01/19 12/02/19 19:00 07:00 Intake Total 750 ml 750 ml Output Total 1175 ml Balance 750 ml -425 ml Free Water 200 ml 150 ml Tube Feeding 550 ml 600 ml Output Urine Total 925 ml Stool Total 250 ml Laboratory Tests Test 12/01/19 22:53 12/02/19 05:09 12/02/19 08:16 12/02/19 11:54 POC Whole Blood Glucose Pending Pending 180 MG/DL (74-106) H 193 MG/DL (74-106) H Microbiology Date/Time Source Procedure Growth Status 12/01/19 09:41 Nasopharynx SARS-CoV-2 RdRp Gene Assay - Final Complete 11/30/19 11:15 Nasopharynx SARS-CoV-2 RdRp Gene Assay - Final Complete 11/30/19 11:15 Stool Clostridium difficile Toxin Assay - Final Complete Objective HEAD AND NECK: No JVD. Tracheostomy in place. LUNGS: Coarse rhonchi. CARDIOVASCULAR: Irregularly irregular. S1 and S2 with no gallop or murmur. ABDOMEN: Soft.PEG EXTREMITIES: 2 plus pitting edema. Gabe Snell MD Dec 02, 2019 14:29
[2019-12-02 16:00] VITALS: BP 115/58
[2019-12-02 20:00] VITALS: BP 119/54
[2019-12-03] VITALS: BP 105/53
[2019-12-03 04:00] VITALS: BP 120/60
[2019-12-03] MEDS: LORazepam Inj 2mg/ml 1ml IV PRN ×4 (04:05→21:50)
[2019-12-03 05:34] LABS: ALANINE AMINOTRANSFERASE 32 U/L (12-78); ALBUMIN 1.7 G/DL (3.4-5.0); ALBUMIN/GLOBULIN RATIO 0.4 (1.0-2.7); ALKALINE PHOSPHATASE 169 U/L (46-116); ANION GAP 1 mmol/L (5-15); ASPARTATE AMINO TRANSFERASE 40 U/L (15-37); BILIRUBIN,TOTAL 0.5 MG/DL (0.2-1.0); BLOOD UREA NITROGEN 17 mg/dL (7-18); CALCIUM 8.4 MG/DL (8.5-10.1); CARBON DIOXIDE 37 MMOL/L (21-32); CHLORIDE 108 MMOL/L (98-107); CREATININE 0.6 MG/DL (0.55-1.30); POTASSIUM 3.4 MMOL/L (3.5-5.1); SODIUM 146 MMOL/L (136-145)
[2019-12-03 05:36] LABS: BASOPHILS % (AUTO) 0.7 % (0.0-2.0); EOSINOPHILS % (AUTO) 2.3 % (0.0-3.0); HEMATOCRIT 30.6 % (37.0-47.0); HEMOGLOBIN 9.2 G/DL (12.0-16.0); LYMPHOCYTES % (AUTO) 9.8 % (20.0-45.0); MEAN CORPUSCULAR VOLUME 90 FL (80-99); MONOCYTES % (AUTO) 5.5 % (1.0-10.0); NEUTROPHILS % (AUTO) 81.7 % (45.0-75.0); PLATELET COUNT 337 K/UL (150-450); RED BLOOD COUNT 3.41 M/UL (4.20-5.40); RED CELL DISTRIBUTION WIDTH 19.8 % (11.6-14.8)
[2019-12-03] MEDS: NovoLOG Insulin Flexpen SUBQ SCH ×4 (05:41→17:10)
[2019-12-03 05:48] LABS: PHOSPHORUS 2.7 MG/DL (2.5-4.9)
[2019-12-03 07:56] VITALS: BP 117/53
[2019-12-03] MEDS: metOLazone 2.5 MG TAB GT SCH (08:22)
[2019-12-03] MEDS: Vancomycin oral 125mg/2.5ml GT SCH ×4 (08:22→20:42)
[2019-12-03] MEDS: Amiodarone 200mg tab GT SCH (08:22)
[2019-12-03] MEDS: Levemir Flexpen SUBQ SCH ×2 (08:23→17:10)
--- NOTE | 2019-12-03 09:26 | Surgery Progress Note ---
Surgery Progress Note Subjective Procedure Performed tracheostomy Additional Comments trach stable hold on change for now volumes okay peek pressure stable Objective Last 24 Hour Vital Signs Date Time Temp Pulse Resp B/P (MAP) Pulse Ox O2 Delivery O2 Flow Rate FiO2 12/03/19 09:05 85 20 40 12/03/19 09:04 100 12/03/19 08:21 77 117/53 12/03/19 08:00 Mechanical Ventilator Mechanical Ventilator 12/03/19 08:00 40 12/03/19 07:56 98.4 77 24 117/53 (74) 98 12/03/19 07:01 74 21 40 12/03/19 05:15 81 24 40 12/03/19 04:00 40 12/03/19 04:00 98.8 85 24 120/60 (80) 100 12/03/19 04:00 Mechanical Ventilator Mechanical Ventilator 12/03/19 03:30 85 12/03/19 02:56 92 22 40 12/03/19 01:08 86 19 40 12/03/19 00:00 Mechanical Ventilator Mechanical Ventilator 12/03/19 00:00 98.9 85 18 105/53 (70) 100 12/02/19 23:31 78 22 40 12/02/19 23:27 84 12/02/19 21:03 95 21 40 12/02/19 20:14 87 95/45 12/02/19 20:00 40 12/02/19 20:00 98.4 84 20 119/54 (75) 100 12/02/19 20:00 Mechanical Ventilator Mechanical Ventilator 12/02/19 19:18 80 31 40 12/02/19 19:00 77 12/02/19 17:18 84 27 40 12/02/19 17:02 99.3 12/02/19 16:00 40 12/02/19 16:00 100.2 86 18 115/58 (77) 100 12/02/19 16:00 Mechanical Ventilator Mechanical Ventilator 12/02/19 16:00 76 12/02/19 15:48 87 23 40 12/02/19 12:55 82 23 40 12/02/19 12:00 Mechanical Ventilator Mechanical Ventilator 12/02/19 12:00 83 12/02/19 12:00 40 12/02/19 12:00 99.0 82 18 114/58 (76) 100 12/02/19 10:51 77 20 40 I&O Intake and Output 12/02/19 12/03/19 19:00 07:00 Intake Total 800 ml 550 ml Output Total 700 ml Balance 100 ml 550 ml Free Water 200 ml Tube Feeding 600 ml 550 ml Output Urine Total 400 ml Stool Total 300 ml Dressing: dry Cardiovascular: RSR Respiratory: decreased breath sounds Abdomen: soft, non-tender, present bowel sounds Extremities: edema, no cyanosis Laboratory Tests Test 12/02/19 11:54 12/02/19 16:59 12/02/19 18:10 12/03/19 01:09 POC Whole Blood Glucose 193 MG/DL (74-106) H 131 MG/DL (74-106) H 127 MG/DL (74-106) H Stool Occult Blood Pending Test 12/03/19 03:55 12/03/19 05:37 White Blood Count 10.0 K/UL (4.8-10.8) Red Blood Count 3.41 M/UL (4.20-5.40) L Hemoglobin 9.2 G/DL (12.0-16.0) L Hematocrit 30.6 % (37.0-47.0) L Mean Corpuscular Volume 90 FL (80-99) Mean Corpuscular Hemoglobin 26.9 PG (27.0-31.0) L Mean Corpuscular Hemoglobin Concent 29.9 G/DL (32.0-36.0) L Red Cell Distribution Width 19.8 % (11.6-14.8) H Platelet Count 337 K/UL (150-450) Mean Platelet Volume 6.7 FL (6.5-10.1) Neutrophils (%) (Auto) 81.7 % (45.0-75.0) H Lymphocytes (%) (Auto) 9.8 % (20.0-45.0) L Monocytes (%) (Auto) 5.5 % (1.0-10.0) Eosinophils (%) (Auto) 2.3 % (0.0-3.0) Basophils (%) (Auto) 0.7 % (0.0-2.0) Sodium Level 146 MMOL/L (136-145) H Potassium Level 3.4 MMOL/L (3.5-5.1) L Chloride Level 108 MMOL/L (98-107) H Carbon Dioxide Level 37 MMOL/L (21-32) H Anion Gap 1 mmol/L (5-15) L Blood Urea Nitrogen 17 mg/dL (7-18) Creatinine 0.6 MG/DL (0.55-1.30) Estimat Glomerular Filtration Rate > 60 mL/min (>60) Glucose Level 129 MG/DL (74-106) H Calcium Level 8.4 MG/DL (8.5-10.1) L Phosphorus Level 2.7 MG/DL (2.5-4.9) Magnesium Level 2.0 MG/DL (1.8-2.4) Total Bilirubin 0.5 MG/DL (0.2-1.0) Aspartate Amino Transf (AST/SGOT) 40 U/L (15-37) H Alanine Aminotransferase (ALT/SGPT) 32 U/L (12-78) Alkaline Phosphatase 169 U/L (46-116) H Total Protein 6.0 G/DL (6.4-8.2) L Albumin 1.7 G/DL (3.4-5.0) L Globulin 4.3 g/dL Albumin/Globulin Ratio 0.4 (1.0-2.7) L POC Whole Blood Glucose 124 MG/DL (74-106) H Plan Problems: (1) Weak (2) UTI (urinary tract infection) (3) Hypoxia (4) Epistaxis Assessment & Plan: Severe after taxis left nostril Rhino Rocket placed hemostasis noted over the course 24 hours hemoglobin stable Lovenox been stopped. The balloon of both ports of the Rhino Rocket were deflated today. The rocket itself was not removed and will monitor over the course next 24 hours hemostasis. If so will gently remove and plan for local monitoring. Currently wean ventilator as tolerated. Goals of extubation when possible. deflated balloon 11/08 removed trumpet 11/09 will monitor for bleeding wean vent plan extubation discussed with pulm (5) Fluid overload Assessment & Plan: Continue central venous catheter for now. Will anticipate removal once patient stable for extubation. Thank you for allowing me to participate patient's care picc in line out (6) Diabetes (7) CHF (congestive heart failure) (8) Afib (9) Multifocal pneumonia (10) 2019 novel coronavirus disease (COVID-19) Assessment & Plan: + wean vent extubated failed reintubated consider trach plan trach 11/23 s/p trach comfortable (11) Respiratory failure Assessment & Plan: trach dislodged 11/29 with air leak evaluated at bedside and repositioned. improved now will monitor stable monitoring Additional Comments note: late entry for patient seen 12/01 but because of surgeries was unable to complete note until later. Ortiz Fleming Dec 03, 2019 09:26
--- NOTE | 2019-12-03 09:27 | Surgery Progress Note ---
Surgery Progress Note Subjective Procedure Performed tracheostomy Additional Comments no acute events labs okay micro reviewed cxr noted trach stable Objective Last 24 Hour Vital Signs Date Time Temp Pulse Resp B/P (MAP) Pulse Ox O2 Delivery O2 Flow Rate FiO2 12/03/19 09:05 85 20 40 12/03/19 09:04 100 12/03/19 08:21 77 117/53 12/03/19 08:00 Mechanical Ventilator Mechanical Ventilator 12/03/19 08:00 40 12/03/19 07:56 98.4 77 24 117/53 (74) 98 12/03/19 07:01 74 21 40 12/03/19 05:15 81 24 40 12/03/19 04:00 40 12/03/19 04:00 98.8 85 24 120/60 (80) 100 12/03/19 04:00 Mechanical Ventilator Mechanical Ventilator 12/03/19 03:30 85 12/03/19 02:56 92 22 40 12/03/19 01:08 86 19 40 12/03/19 00:00 Mechanical Ventilator Mechanical Ventilator 12/03/19 00:00 98.9 85 18 105/53 (70) 100 12/02/19 23:31 78 22 40 12/02/19 23:27 84 12/02/19 21:03 95 21 40 12/02/19 20:14 87 95/45 12/02/19 20:00 40 12/02/19 20:00 98.4 84 20 119/54 (75) 100 12/02/19 20:00 Mechanical Ventilator Mechanical Ventilator 12/02/19 19:18 80 31 40 12/02/19 19:00 77 12/02/19 17:18 84 27 40 12/02/19 17:02 99.3 12/02/19 16:00 40 12/02/19 16:00 100.2 86 18 115/58 (77) 100 12/02/19 16:00 Mechanical Ventilator Mechanical Ventilator 12/02/19 16:00 76 12/02/19 15:48 87 23 40 12/02/19 12:55 82 23 40 12/02/19 12:00 Mechanical Ventilator Mechanical Ventilator 12/02/19 12:00 83 12/02/19 12:00 40 12/02/19 12:00 99.0 82 18 114/58 (76) 100 8/12/20 10:51 77 20 40 I&O Intake and Output 12/02/19 12/03/19 19:00 07:00 Intake Total 800 ml 550 ml Output Total 700 ml Balance 100 ml 550 ml Free Water 200 ml Tube Feeding 600 ml 550 ml Output Urine Total 400 ml Stool Total 300 ml Dressing: saturated Cardiovascular: RSR Respiratory: decreased breath sounds Abdomen: soft, non-tender, present bowel sounds Extremities: edema, no tenderness, no cyanosis Laboratory Tests Test 12/02/19 11:54 12/02/19 16:59 12/02/19 18:10 12/03/19 01:09 POC Whole Blood Glucose 193 MG/DL (74-106) H 131 MG/DL (74-106) H 127 MG/DL (74-106) H Stool Occult Blood Pending Test 12/03/19 03:55 12/03/19 05:37 White Blood Count 10.0 K/UL (4.8-10.8) Red Blood Count 3.41 M/UL (4.20-5.40) L Hemoglobin 9.2 G/DL (12.0-16.0) L Hematocrit 30.6 % (37.0-47.0) L Mean Corpuscular Volume 90 FL (80-99) Mean Corpuscular Hemoglobin 26.9 PG (27.0-31.0) L Mean Corpuscular Hemoglobin Concent 29.9 G/DL (32.0-36.0) L Red Cell Distribution Width 19.8 % (11.6-14.8) H Platelet Count 337 K/UL (150-450) Mean Platelet Volume 6.7 FL (6.5-10.1) Neutrophils (%) (Auto) 81.7 % (45.0-75.0) H Lymphocytes (%) (Auto) 9.8 % (20.0-45.0) L Monocytes (%) (Auto) 5.5 % (1.0-10.0) Eosinophils (%) (Auto) 2.3 % (0.0-3.0) Basophils (%) (Auto) 0.7 % (0.0-2.0) Sodium Level 146 MMOL/L (136-145) H Potassium Level 3.4 MMOL/L (3.5-5.1) L Chloride Level 108 MMOL/L (98-107) H Carbon Dioxide Level 37 MMOL/L (21-32) H Anion Gap 1 mmol/L (5-15) L Blood Urea Nitrogen 17 mg/dL (7-18) Creatinine 0.6 MG/DL (0.55-1.30) Estimat Glomerular Filtration Rate > 60 mL/min (>60) Glucose Level 129 MG/DL (74-106) H Calcium Level 8.4 MG/DL (8.5-10.1) L Phosphorus Level 2.7 MG/DL (2.5-4.9) Magnesium Level 2.0 MG/DL (1.8-2.4) Total Bilirubin 0.5 MG/DL (0.2-1.0) Aspartate Amino Transf (AST/SGOT) 40 U/L (15-37) H Alanine Aminotransferase (ALT/SGPT) 32 U/L (12-78) Alkaline Phosphatase 169 U/L (46-116) H Total Protein 6.0 G/DL (6.4-8.2) L Albumin 1.7 G/DL (3.4-5.0) L Globulin 4.3 g/dL Albumin/Globulin Ratio 0.4 (1.0-2.7) L POC Whole Blood Glucose 124 MG/DL (74-106) H Plan Problems: (1) Weak (2) UTI (urinary tract infection) (3) Hypoxia (4) Epistaxis Assessment & Plan: Severe after taxis left nostril Rhino Rocket placed hemostasis noted over the course 24 hours hemoglobin stable Lovenox been stopped. The balloon of both ports of the Rhino Rocket were deflated today. The rocket itself was not removed and will monitor over the course next 24 hours hemostasis. If so will gently remove and plan for local monitoring. Currently wean ventilator as tolerated. Goals of extubation when possible. deflated balloon 11/08 removed trumpet 11/09 will monitor for bleeding wean vent plan extubation discussed with pulm (5) Fluid overload Assessment & Plan: Continue central venous catheter for now. Will anticipate removal once patient stable for extubation. Thank you for allowing me to participate patient's care picc in line out (6) Diabetes (7) CHF (congestive heart failure) (8) Afib (9) Multifocal pneumonia (10) 2019 novel coronavirus disease (COVID-19) Assessment & Plan: + wean vent extubated failed reintubated consider trach plan trach 11/23 s/p trach comfortable (11) Respiratory failure Assessment & Plan: trach dislodged 11/29 with air leak evaluated at bedside and repositioned. improved now will monitor stable monitoring Ortiz Fleming Dec 03, 2019 09:27
[2019-12-03] MEDS ORDERED: Tubing IV Secondary IV ONE (09:37)
--- NOTE | 2019-12-03 09:41 | Cardiac Electrophysiology PN ---
Assessment/Plan Assessment/Plan 1. Paroxysmal atrial fibrillation. On metoprolol 25 bid and Amiodarone 400 daily Off anticoagulation for hematuria and black stool EF 55% on echo. 2. S/P Shock. Off pressors. 3. COVID positive pneumonia. Now negative x2 and off isolation 4. Diabetes, on insulin. 5. Respiratory failure on the Vent. S/P Tracheostomy 11/24/19 6. S/P Massive nasal bleed. 7. Severe LE edema. 8. Dysphagia, S/P PEG 11/25/19 DW RN Subjective Subjective In Step down on the vent with 40% Fio2 S/P tracheostomy 11/24/19 and PEG 11/25/19 In atrial fib rate controlled on Lopressor 25 bid. Off Covid isolation as 2 Covid tests are negative Objective Last 24 Hour Vital Signs Date Time Temp Pulse Resp B/P (MAP) Pulse Ox O2 Delivery O2 Flow Rate FiO2 12/03/19 09:05 85 20 40 12/03/19 09:04 100 12/03/19 08:21 77 117/53 12/03/19 08:00 Mechanical Ventilator Mechanical Ventilator 12/03/19 08:00 40 12/03/19 07:56 98.4 77 24 117/53 (74) 98 12/03/19 07:01 74 21 40 12/03/19 05:15 81 24 40 12/03/19 04:00 40 12/03/19 04:00 98.8 85 24 120/60 (80) 100 12/03/19 04:00 Mechanical Ventilator Mechanical Ventilator 12/03/19 03:30 85 12/03/19 02:56 92 22 40 12/03/19 01:08 86 19 40 12/03/19 00:00 Mechanical Ventilator Mechanical Ventilator 12/03/19 00:00 98.9 85 18 105/53 (70) 100 12/02/19 23:31 78 22 40 12/02/19 23:27 84 12/02/19 21:03 95 21 40 12/02/19 20:14 87 95/45 12/02/19 20:00 40 12/02/19 20:00 98.4 84 20 119/54 (75) 100 12/02/19 20:00 Mechanical Ventilator Mechanical Ventilator 12/02/19 19:18 80 31 40 12/02/19 19:00 77 12/02/19 17:18 84 27 40 12/02/19 17:02 99.3 12/02/19 16:00 40 12/02/19 16:00 100.2 86 18 115/58 (77) 100 12/02/19 16:00 Mechanical Ventilator Mechanical Ventilator 12/02/19 16:00 76 12/02/19 15:48 87 23 40 12/02/19 12:55 82 23 40 12/02/19 12:00 Mechanical Ventilator Mechanical Ventilator 12/02/19 12:00 83 12/02/19 12:00 40 12/02/19 12:00 99.0 82 18 114/58 (76) 100 12/02/19 10:51 77 20 40 Intake and Output 12/02/19 12/03/19 19:00 07:00 Intake Total 800 ml 550 ml Output Total 700 ml Balance 100 ml 550 ml Free Water 200 ml Tube Feeding 600 ml 550 ml Output Urine Total 400 ml Stool Total 300 ml Laboratory Tests Test 12/02/19 11:54 12/02/19 16:59 12/02/19 18:10 12/03/19 01:09 POC Whole Blood Glucose 193 MG/DL (74-106) H 131 MG/DL (74-106) H 127 MG/DL (74-106) H Stool Occult Blood Pending Test 12/03/19 03:55 12/03/19 05:37 White Blood Count 10.0 K/UL (4.8-10.8) Red Blood Count 3.41 M/UL (4.20-5.40) L Hemoglobin 9.2 G/DL (12.0-16.0) L Hematocrit 30.6 % (37.0-47.0) L Mean Corpuscular Volume 90 FL (80-99) Mean Corpuscular Hemoglobin 26.9 PG (27.0-31.0) L Mean Corpuscular Hemoglobin Concent 29.9 G/DL (32.0-36.0) L Red Cell Distribution Width 19.8 % (11.6-14.8) H Platelet Count 337 K/UL (150-450) Mean Platelet Volume 6.7 FL (6.5-10.1) Neutrophils (%) (Auto) 81.7 % (45.0-75.0) H Lymphocytes (%) (Auto) 9.8 % (20.0-45.0) L Monocytes (%) (Auto) 5.5 % (1.0-10.0) Eosinophils (%) (Auto) 2.3 % (0.0-3.0) Basophils (%) (Auto) 0.7 % (0.0-2.0) Sodium Level 146 MMOL/L (136-145) H Potassium Level 3.4 MMOL/L (3.5-5.1) L Chloride Level 108 MMOL/L (98-107) H Carbon Dioxide Level 37 MMOL/L (21-32) H Anion Gap 1 mmol/L (5-15) L Blood Urea Nitrogen 17 mg/dL (7-18) Creatinine 0.6 MG/DL (0.55-1.30) Estimat Glomerular Filtration Rate > 60 mL/min (>60) Glucose Level 129 MG/DL (74-106) H Calcium Level 8.4 MG/DL (8.5-10.1) L Phosphorus Level 2.7 MG/DL (2.5-4.9) Magnesium Level 2.0 MG/DL (1.8-2.4) Total Bilirubin 0.5 MG/DL (0.2-1.0) Aspartate Amino Transf (AST/SGOT) 40 U/L (15-37) H Alanine Aminotransferase (ALT/SGPT) 32 U/L (12-78) Alkaline Phosphatase 169 U/L (46-116) H Total Protein 6.0 G/DL (6.4-8.2) L Albumin 1.7 G/DL (3.4-5.0) L Globulin 4.3 g/dL Albumin/Globulin Ratio 0.4 (1.0-2.7) L POC Whole Blood Glucose 124 MG/DL (74-106) H Microbiology Date/Time Source Procedure Growth Status 12/01/19 09:41 Nasopharynx SARS-CoV-2 RdRp Gene Assay - Final Complete 11/30/19 11:15 Nasopharynx SARS-CoV-2 RdRp Gene Assay - Final Complete 11/30/19 11:15 Stool Clostridium difficile Toxin Assay - Final Complete Objective HEAD AND NECK: No JVD. Tracheostomy in place. LUNGS: Coarse rhonchi. CARDIOVASCULAR: Irregularly irregular. S1 and S2 with no gallop or murmur. ABDOMEN: Soft.PEG EXTREMITIES: 2 plus pitting edema. Gabe Snell MD Dec 03, 2019 09:41
--- NOTE | 2019-12-03 09:45 | General Progress Note ---
Assessment/Plan Problem List: (1) Respiratory failure ICD Codes: J96.90 - Respiratory failure, unspecified, unspecified whether with hypoxia or hypercapnia SNOMED: 467338385 (2) 2019 novel coronavirus disease (COVID-19) ICD Codes: U07.1 - COVID-19 SNOMED: 360426893 (3) Multifocal pneumonia ICD Codes: J18.9 - Pneumonia, unspecified organism SNOMED: 085617617 (4) Afib ICD Codes: I48.91 - Unspecified atrial fibrillation SNOMED: 67804400 (5) CHF (congestive heart failure) ICD Codes: I50.9 - Heart failure, unspecified SNOMED: 89413318 (6) Diabetes ICD Codes: E11.9 - Type 2 diabetes mellitus without complications SNOMED: 63886691 (7) Fluid overload ICD Codes: E87.70 - Fluid overload, unspecified SNOMED: 18169575 (8) Epistaxis ICD Codes: R04.0 - Epistaxis SNOMED: 560953486 Status: stable, progressing Assessment/Plan: fu H&H prn blood transfusion slow drop in H&H without obvious bleeding repeat stool ob GTF patient has rectal tube will fu Subjective ROS Limited/Unobtainable: No Allergies: Coded Allergies: No Known Allergies (Unverified , 11/06/19) Objective Last 24 Hour Vital Signs Date Time Temp Pulse Resp B/P (MAP) Pulse Ox O2 Delivery O2 Flow Rate FiO2 12/03/19 09:05 85 20 40 12/03/19 09:04 100 12/03/19 08:21 77 117/53 12/03/19 08:00 Mechanical Ventilator Mechanical Ventilator 12/03/19 08:00 40 12/03/19 07:56 98.4 77 24 117/53 (74) 98 12/03/19 07:01 74 21 40 12/03/19 05:15 81 24 40 12/03/19 04:00 40 12/03/19 04:00 98.8 85 24 120/60 (80) 100 12/03/19 04:00 Mechanical Ventilator Mechanical Ventilator 12/03/19 03:30 85 12/03/19 02:56 92 22 40 12/03/19 01:08 86 19 40 12/03/19 00:00 Mechanical Ventilator Mechanical Ventilator 12/03/19 00:00 98.9 85 18 105/53 (70) 100 12/02/19 23:31 78 22 40 12/02/19 23:27 84 12/02/19 21:03 95 21 40 12/02/19 20:14 87 95/45 12/02/19 20:00 40 12/02/19 20:00 98.4 84 20 119/54 (75) 100 12/02/19 20:00 Mechanical Ventilator Mechanical Ventilator 12/02/19 19:18 80 31 40 12/02/19 19:00 77 12/02/19 17:18 84 27 40 12/02/19 17:02 99.3 12/02/19 16:00 40 12/02/19 16:00 100.2 86 18 115/58 (77) 100 12/02/19 16:00 Mechanical Ventilator Mechanical Ventilator 12/02/19 16:00 76 12/02/19 15:48 87 23 40 12/02/19 12:55 82 23 40 12/02/19 12:00 Mechanical Ventilator Mechanical Ventilator 12/02/19 12:00 83 12/02/19 12:00 40 12/02/19 12:00 99.0 82 18 114/58 (76) 100 12/02/19 10:51 77 20 40 Intake and Output 12/02/19 12/03/19 19:00 07:00 Intake Total 800 ml 550 ml Output Total 700 ml Balance 100 ml 550 ml Free Water 200 ml Tube Feeding 600 ml 550 ml Output Urine Total 400 ml Stool Total 300 ml Laboratory Tests 12/02/19 11:54: POC Whole Blood Glucose 193H 12/02/19 16:59: POC Whole Blood Glucose 131H 12/02/19 18:10: Stool Occult Blood [Pending] 12/03/19 01:09: POC Whole Blood Glucose 127H 12/03/19 03:55: White Blood Count 10.0, Red Blood Count 3.41L, Hemoglobin 9.2L, Hematocrit 30.6L , Mean Corpuscular Volume 90, Mean Corpuscular Hemoglobin 26.9L, Mean Corpuscular Hemoglobin Concent 29.9L, Red Cell Distribution Width 19.8H, Platelet Count 337, Mean Platelet Volume 6.7, Neutrophils (%) (Auto) 81.7H, Lymphocytes (%) (Auto) 9.8L, Monocytes (%) (Auto) 5.5, Eosinophils (%) (Auto) 2.3, Basophils (%) (Auto) 0.7, Sodium Level 146H, Potassium Level 3.4L, Chloride Level 108H, Carbon Dioxide Level 37H, Anion Gap 1L, Blood Urea Nitrogen 17, Creatinine 0.6, Estimat Glomerular Filtration Rate > 60, Glucose Level 129H, Calcium Level 8.4L, Phosphorus Level 2.7, Magnesium Level 2.0, Total Bilirubin 0.5, Aspartate Amino Transf (AST/SGOT) 40H, Alanine Aminotransferase (ALT/SGPT) 32, Alkaline Phosphatase 169H, Total Protein 6.0L, Albumin 1.7L, Globulin 4.3, Albumin/Globulin Ratio 0.4L 12/03/19 05:37: POC Whole Blood Glucose 124H Height (Feet): 5 Height (Inches): 1.00 Weight (Pounds): 306 General Appearance: no apparent distress EENT: normal ENT inspection Neck: normal alignment Cardiovascular: normal rate Respiratory/Chest: decreased breath sounds Abdomen: hypoactive bowel sounds Extremities: non-tender Case Patel MD Dec 03, 2019 09:45
--- NOTE | 2019-12-03 09:52 | Infectious Diseases Prog Note ---
Assessment/Plan Assessment/Plan A: 1. COVID-19 pneumonia. 2. Diabetes mellitus 3. Hypertension. 4. Hypoxic respiratory failure 5. Morbid obesity 6. C. difficile colitis 7. Lactic acidosis 8. Anemia 9. Leukocytosis improving 10. Pneumonia with MSSA, Proteus & Enterobacter treated PLAN: 1. Finished Remdesivir 2. Continue oral Vancomycin X 7 days Subjective ROS Limited/Unobtainable: Yes Gastrointestinal/Abdominal: Reports: diarrhea Neurologic: Reports: confusion, other - on restraint Allergies: Coded Allergies: No Known Allergies (Unverified , 11/06/19) Objective Last 24 Hour Vital Signs Date Time Temp Pulse Resp B/P (MAP) Pulse Ox O2 Delivery O2 Flow Rate FiO2 12/03/19 09:05 85 20 40 12/03/19 09:04 100 12/03/19 08:21 77 117/53 12/03/19 08:00 Mechanical Ventilator Mechanical Ventilator 12/03/19 08:00 40 12/03/19 07:56 98.4 77 24 117/53 (74) 98 12/03/19 07:01 74 21 40 12/03/19 05:15 81 24 40 12/03/19 04:00 40 12/03/19 04:00 98.8 85 24 120/60 (80) 100 12/03/19 04:00 Mechanical Ventilator Mechanical Ventilator 12/03/19 03:30 85 12/03/19 02:56 92 22 40 12/03/19 01:08 86 19 40 12/03/19 00:00 Mechanical Ventilator Mechanical Ventilator 12/03/19 00:00 98.9 85 18 105/53 (70) 100 12/02/19 23:31 78 22 40 12/02/19 23:27 84 12/02/19 21:03 95 21 40 12/02/19 20:14 87 95/45 12/02/19 20:00 40 12/02/19 20:00 98.4 84 20 119/54 (75) 100 12/02/19 20:00 Mechanical Ventilator Mechanical Ventilator 12/02/19 19:18 80 31 40 12/02/19 19:00 77 12/02/19 17:18 84 27 40 12/02/19 17:02 99.3 12/02/19 16:00 40 12/02/19 16:00 100.2 86 18 115/58 (77) 100 12/02/19 16:00 Mechanical Ventilator Mechanical Ventilator 12/02/19 16:00 76 12/02/19 15:48 87 23 40 12/02/19 12:55 82 23 40 12/02/19 12:00 Mechanical Ventilator Mechanical Ventilator 12/02/19 12:00 83 12/02/19 12:00 40 12/02/19 12:00 99.0 82 18 114/58 (76) 100 12/02/19 10:51 77 20 40 Height (Feet): 5 Height (Inches): 1.00 Weight (Pounds): 306 HEENT: status post trach Respiratory/Chest: lungs clear, other - on ventilator Cardiovascular: normal rate Abdomen: soft, non tender, other - GT & rectal tube Extremities: other - hands edema Neurologic/Psychiatric: alert, responsive Microbiology Date/Time Source Procedure Growth Status 12/01/19 09:41 Nasopharynx SARS-CoV-2 RdRp Gene Assay - Final Complete 11/30/19 11:15 Nasopharynx SARS-CoV-2 RdRp Gene Assay - Final Complete 11/30/19 11:15 Stool Clostridium difficile Toxin Assay - Final Complete Laboratory Tests Test 12/02/19 11:54 12/02/19 16:59 12/02/19 18:10 12/03/19 01:09 POC Whole Blood Glucose 193 MG/DL (74-106) H 131 MG/DL (74-106) H 127 MG/DL (74-106) H Stool Occult Blood Pending Test 12/03/19 03:55 12/03/19 05:37 White Blood Count 10.0 K/UL (4.8-10.8) Red Blood Count 3.41 M/UL (4.20-5.40) L Hemoglobin 9.2 G/DL (12.0-16.0) L Hematocrit 30.6 % (37.0-47.0) L Mean Corpuscular Volume 90 FL (80-99) Mean Corpuscular Hemoglobin 26.9 PG (27.0-31.0) L Mean Corpuscular Hemoglobin Concent 29.9 G/DL (32.0-36.0) L Red Cell Distribution Width 19.8 % (11.6-14.8) H Platelet Count 337 K/UL (150-450) Mean Platelet Volume 6.7 FL (6.5-10.1) Neutrophils (%) (Auto) 81.7 % (45.0-75.0) H Lymphocytes (%) (Auto) 9.8 % (20.0-45.0) L Monocytes (%) (Auto) 5.5 % (1.0-10.0) Eosinophils (%) (Auto) 2.3 % (0.0-3.0) Basophils (%) (Auto) 0.7 % (0.0-2.0) Sodium Level 146 MMOL/L (136-145) H Potassium Level 3.4 MMOL/L (3.5-5.1) L Chloride Level 108 MMOL/L (98-107) H Carbon Dioxide Level 37 MMOL/L (21-32) H Anion Gap 1 mmol/L (5-15) L Blood Urea Nitrogen 17 mg/dL (7-18) Creatinine 0.6 MG/DL (0.55-1.30) Estimat Glomerular Filtration Rate > 60 mL/min (>60) Glucose Level 129 MG/DL (74-106) H Calcium Level 8.4 MG/DL (8.5-10.1) L Phosphorus Level 2.7 MG/DL (2.5-4.9) Magnesium Level 2.0 MG/DL (1.8-2.4) Total Bilirubin 0.5 MG/DL (0.2-1.0) Aspartate Amino Transf (AST/SGOT) 40 U/L (15-37) H Alanine Aminotransferase (ALT/SGPT) 32 U/L (12-78) Alkaline Phosphatase 169 U/L (46-116) H Total Protein 6.0 G/DL (6.4-8.2) L Albumin 1.7 G/DL (3.4-5.0) L Globulin 4.3 g/dL Albumin/Globulin Ratio 0.4 (1.0-2.7) L POC Whole Blood Glucose 124 MG/DL (74-106) H Current Medications Medications (Trade) Dose Ordered Sig/Robyn Route PRN Reason Start Time Stop Time Status Last Admin Dose Admin Acetaminophen (Tylenol) 650 mg Q4H PRN GT For Pain 11/30/19 17:45 12/30/19 17:44 11/30/19 18:24 Acetaminophen (Tylenol) 650 mg Q6H PRN GT Temp >100.5 11/29/19 15:00 12/12/19 14:59 12/01/19 02:11 Amiodarone HCl (Cordarone) 400 mg DAILY GT 11/30/19 09:00 02/18/20 09:29 12/03/19 08:22 Clonidine HCl (Catapres Tab) 0.1 mg Q4H PRN GT For High Blood Pressure 11/29/19 14:30 02/09/20 14:29 Dextrose (Dextrose 50%) 25 ml Q30M PRN IV Hypoglycemia 11/29/19 14:15 02/21/20 06:44 Dextrose (Dextrose 50%) 50 ml Q30M PRN IV Hypoglycemia 11/29/19 14:15 02/21/20 06:44 Famotidine (Pepcid) 20 mg BID GT 11/29/19 18:00 02/26/20 17:59 12/03/19 08:22 Folic Acid (Folate) 2 mg DAILY GT 11/30/19 09:00 12/15/19 08:59 12/03/19 08:21 Insulin Aspart (NovoLOG) EVERY 6 HOURS SUBQ 11/29/19 18:00 02/11/20 20:59 12/02/19 12:18 Insulin Detemir (Levemir) 10 units BID SUBQ 12/01/19 09:00 02/21/20 08:59 12/03/19 08:23 Lorazepam (Ativan 2mg/ml 1ml) 2 mg Q3H PRN IV For Anxiety 11/29/19 15:30 12/03/19 15:29 12/03/19 04:05 Metolazone (Zaroxolyn) 2.5 mg DAILY GT 11/30/19 09:00 12/28/19 09:29 12/03/19 08:22 Metoprolol Tartrate (Lopressor) 25 mg Q12HR GT 11/29/19 21:00 02/18/20 09:29 12/03/19 08:21 Potassium Chloride 100 ml @ 100 mls/hr Q1H IVPB 12/03/19 08:00 12/03/19 09:59 12/03/19 08:21 Vancomycin HCl (Firvanq) 125 mg FOUR TIMES A DAY GT 12/01/19 13:00 12/08/19 12:59 12/03/19 08:22 Jose Hernandez MD Dec 03, 2019 09:52
[2019-12-03 12:00] VITALS: BP 104/51
--- NOTE | 2019-12-03 13:34 | Nephrology Progress Note ---
Assessment/Plan Problem List: (1) Electrolyte imbalance (2) Diabetes (3) 2019 novel coronavirus disease (COVID-19) (4) Respiratory failure Assessment 1. COVID-19 pneumonia. 2. Diabetes and hyperglycemia 3. Hypertension. 4. Hypoxic respiratory failure 5. Morbid obesity with BMI of 65.5 6. Nasal bleeding 7. Lactic acidosis 8. Hyperkalemia Plan December 02: Remains stable from renal standpoint of view. Electrolyte abnormalities addressed and corrected. December 01: Remains stable from renal standpoint of view. November 30: Lab reviewed. Renal parameters stable. Continue per consultants. November 29: Lab reviewed. Renal parameters stable. Continue per consultants. November 28: Lab reviewed. Phosphorus supplement given. Discussed with RN. Continue to monitor renal parameters. November 27: Lab reviewed. Serum sodium improved. Will start low-dose Zaroxolyn. Change IV Pepcid to GT route. Remains full code. Monitor renal parameters and electrolytes. November 26: Lab reviewed. Serum sodium elevated. 500 cc D5W bolus given. Potassium supplement given. Patient remains full code. Continue per consultants. November 25: Lab reviewed. Patient has trach connected to vent. Patient also has PEG. Continue per consultants. Medication list reviewed. November 24: Lab reviewed. Potassium IV given. Has tracheostomy to vent. Has PEG. Continue per consultants. November 23: Labs reviewed. Creatinine higher to 1.4. Due for trach today. Suggest to stop IV Lasix. November 22: Renal parameters stable. Medication list reviewed. Continue same management per consultants. November 21: Renal parameters stable. On IV Lasix. Edematous. Will order few doses of albumin 25%. Continue per consultants. November 20: Repeat serum potassium again normal. Renal parameters normal. Continue per consultants. November 19: Repeat serum potassium normal. Renal parameters within normal limit. Continue per consultants. November 18: Levemir stopped since IV fluid and dexamethasone are discontinued and patient blood sugar went down. Renal parameters are stable. Continues to be on ventilator. Previously: Renal parameters stable Weaning is being attempted patient's urine output is low. We will give a trial of albumin and Lasix, As needed Discussed with RN Stop IV to D5W 75 cc an hour Levemir 20 units subcu every 12 hours Kayexalate for high potassium as needed Monitor electrolytes and renal parameters Tight blood sugar control, long-acting insulin as needed Keep the blood pressure in check Per orders Subjective ROS Limited/Unobtainable: Yes Objective Objective Last 24 Hour Vital Signs Date Time Temp Pulse Resp B/P (MAP) Pulse Ox O2 Delivery O2 Flow Rate FiO2 12/03/19 12:39 81 22 40 12/03/19 12:00 99.5 81 21 104/51 (68) 100 12/03/19 12:00 40 12/03/19 12:00 80 12/03/19 12:00 Mechanical Ventilator Mechanical Ventilator 12/03/19 10:45 76 19 40 12/03/19 09:05 85 20 40 12/03/19 09:04 100 12/03/19 08:21 77 117/53 12/03/19 08:00 Mechanical Ventilator Mechanical Ventilator 12/03/19 08:00 40 12/03/19 08:00 85 12/03/19 07:56 98.4 77 24 117/53 (74) 98 12/03/19 07:01 74 21 40 12/03/19 05:15 81 24 40 12/03/19 04:00 40 12/03/19 04:00 98.8 85 24 120/60 (80) 100 12/03/19 04:00 Mechanical Ventilator Mechanical Ventilator 12/03/19 03:30 85 12/03/19 02:56 92 22 40 12/03/19 01:08 86 19 40 12/03/19 00:00 Mechanical Ventilator Mechanical Ventilator 12/03/19 00:00 98.9 85 18 105/53 (70) 100 12/02/19 23:31 78 22 40 12/02/19 23:27 84 12/02/19 21:03 95 21 40 12/02/19 20:14 87 95/45 12/02/19 20:00 40 12/02/19 20:00 98.4 84 20 119/54 (75) 100 12/02/19 20:00 Mechanical Ventilator Mechanical Ventilator 12/02/19 19:18 80 31 40 12/02/19 19:00 77 12/02/19 17:18 84 27 40 12/02/19 17:02 99.3 12/02/19 16:00 40 12/02/19 16:00 100.2 86 18 115/58 (77) 100 12/02/19 16:00 Mechanical Ventilator Mechanical Ventilator 12/02/19 16:00 76 12/02/19 15:48 87 23 40 Intake and Output 12/02/19 12/03/19 19:00 07:00 Intake Total 800 ml 550 ml Output Total 700 ml Balance 100 ml 550 ml Free Water 200 ml Tube Feeding 600 ml 550 ml Output Urine Total 400 ml Stool Total 300 ml Laboratory Tests 12/02/19 16:59: POC Whole Blood Glucose 131H 12/02/19 18:10: Stool Occult Blood Negative 12/03/19 01:09: POC Whole Blood Glucose 127H 12/03/19 03:55: White Blood Count 10.0, Red Blood Count 3.41L, Hemoglobin 9.2L, Hematocrit 30.6L , Mean Corpuscular Volume 90, Mean Corpuscular Hemoglobin 26.9L, Mean Corpuscular Hemoglobin Concent 29.9L, Red Cell Distribution Width 19.8H, Platelet Count 337, Mean Platelet Volume 6.7, Neutrophils (%) (Auto) 81.7H, Lymphocytes (%) (Auto) 9.8L, Monocytes (%) (Auto) 5.5, Eosinophils (%) (Auto) 2.3, Basophils (%) (Auto) 0.7, Sodium Level 146H, Potassium Level 3.4L, Chloride Level 108H, Carbon Dioxide Level 37H, Anion Gap 1L, Blood Urea Nitrogen 17, Creatinine 0.6, Estimat Glomerular Filtration Rate > 60, Glucose Level 129H, Calcium Level 8.4L, Phosphorus Level 2.7, Magnesium Level 2.0, Total Bilirubin 0.5, Aspartate Amino Transf (AST/SGOT) 40H, Alanine Aminotransferase (ALT/SGPT) 32, Alkaline Phosphatase 169H, Total Protein 6.0L, Albumin 1.7L, Globulin 4.3, Albumin/Globulin Ratio 0.4L 12/03/19 05:37: POC Whole Blood Glucose 124H 12/03/19 11:45: POC Whole Blood Glucose 128H Height (Feet): 5 Height (Inches): 1.00 Weight (Pounds): 306 General Appearance: no apparent distress EENT: other - Trach and vent Cardiovascular: normal rate Respiratory/Chest: decreased breath sounds Abdomen: distended, other - PEG Papa Young MD Dec 03, 2019 13:34
--- NOTE | 2019-12-03 13:40 | General Progress Note ---
Assessment/Plan Problem List: (1) Afib ICD Codes: I48.91 - Unspecified atrial fibrillation SNOMED: 16740049 (2) Epistaxis ICD Codes: R04.0 - Epistaxis SNOMED: 371070341 (3) Weak ICD Codes: R53.1 - Weakness SNOMED: 68479099 (4) UTI (urinary tract infection) ICD Codes: N39.0 - Urinary tract infection, site not specified SNOMED: 44977699 (5) Diabetes ICD Codes: E11.9 - Type 2 diabetes mellitus without complications SNOMED: 42858223 (6) CHF (congestive heart failure) ICD Codes: I50.9 - Heart failure, unspecified SNOMED: 88220214 (7) Multifocal pneumonia ICD Codes: J18.9 - Pneumonia, unspecified organism SNOMED: 219774805 (8) 2019 novel coronavirus disease (COVID-19) ICD Codes: U07.1 - COVID-19 SNOMED: 309243377 (9) Respiratory failure ICD Codes: J96.90 - Respiratory failure, unspecified, unspecified whether with hypoxia or hypercapnia SNOMED: 082058136 Status: stable, progressing Assessment/Plan: vent abx bp bs control cbc bmp am dc if clear Subjective Constitutional: Reports: weakness Allergies: Coded Allergies: No Known Allergies (Unverified , 11/06/19) All Systems: reviewed and negative except above Subjective trach vent altered Objective Last 24 Hour Vital Signs Date Time Temp Pulse Resp B/P (MAP) Pulse Ox O2 Delivery O2 Flow Rate FiO2 12/03/19 12:39 81 22 40 12/03/19 12:00 99.5 81 21 104/51 (68) 100 12/03/19 12:00 40 12/03/19 12:00 80 12/03/19 12:00 Mechanical Ventilator Mechanical Ventilator 12/03/19 10:45 76 19 40 12/03/19 09:05 85 20 40 12/03/19 09:04 100 12/03/19 08:21 77 117/53 12/03/19 08:00 Mechanical Ventilator Mechanical Ventilator 12/03/19 08:00 40 12/03/19 08:00 85 12/03/19 07:56 98.4 77 24 117/53 (74) 98 12/03/19 07:01 74 21 40 12/03/19 05:15 81 24 40 12/03/19 04:00 40 12/03/19 04:00 98.8 85 24 120/60 (80) 100 12/03/19 04:00 Mechanical Ventilator Mechanical Ventilator 12/03/19 03:30 85 12/03/19 02:56 92 22 40 12/03/19 01:08 86 19 40 12/03/19 00:00 Mechanical Ventilator Mechanical Ventilator 12/03/19 00:00 98.9 85 18 105/53 (70) 100 12/02/19 23:31 78 22 40 12/02/19 23:27 84 12/02/19 21:03 95 21 40 12/02/19 20:14 87 95/45 12/02/19 20:00 40 12/02/19 20:00 98.4 84 20 119/54 (75) 100 12/02/19 20:00 Mechanical Ventilator Mechanical Ventilator 12/02/19 19:18 80 31 40 12/02/19 19:00 77 12/02/19 17:18 84 27 40 12/02/19 17:02 99.3 12/02/19 16:00 40 12/02/19 16:00 100.2 86 18 115/58 (77) 100 12/02/19 16:00 Mechanical Ventilator Mechanical Ventilator 12/02/19 16:00 76 12/02/19 15:48 87 23 40 Intake and Output 12/02/19 12/03/19 19:00 07:00 Intake Total 800 ml 550 ml Output Total 700 ml Balance 100 ml 550 ml Free Water 200 ml Tube Feeding 600 ml 550 ml Output Urine Total 400 ml Stool Total 300 ml Laboratory Tests 12/02/19 16:59: POC Whole Blood Glucose 131H 12/02/19 18:10: Stool Occult Blood Negative 12/03/19 01:09: POC Whole Blood Glucose 127H 12/03/19 03:55: White Blood Count 10.0, Red Blood Count 3.41L, Hemoglobin 9.2L, Hematocrit 30.6L , Mean Corpuscular Volume 90, Mean Corpuscular Hemoglobin 26.9L, Mean Corpuscular Hemoglobin Concent 29.9L, Red Cell Distribution Width 19.8H, Platelet Count 337, Mean Platelet Volume 6.7, Neutrophils (%) (Auto) 81.7H, Lymphocytes (%) (Auto) 9.8L, Monocytes (%) (Auto) 5.5, Eosinophils (%) (Auto) 2.3, Basophils (%) (Auto) 0.7, Sodium Level 146H, Potassium Level 3.4L, Chloride Level 108H, Carbon Dioxide Level 37H, Anion Gap 1L, Blood Urea Nitrogen 17, Creatinine 0.6, Estimat Glomerular Filtration Rate > 60, Glucose Level 129H, Calcium Level 8.4L, Phosphorus Level 2.7, Magnesium Level 2.0, Total Bilirubin 0.5, Aspartate Amino Transf (AST/SGOT) 40H, Alanine Aminotransferase (ALT/SGPT) 32, Alkaline Phosphatase 169H, Total Protein 6.0L, Albumin 1.7L, Globulin 4.3, Albumin/Globulin Ratio 0.4L 12/03/19 05:37: POC Whole Blood Glucose 124H 12/03/19 11:45: POC Whole Blood Glucose 128H Height (Feet): 5 Height (Inches): 1.00 Weight (Pounds): 306 General Appearance: lethargic EENT: normal ENT inspection Neck: normal alignment Cardiovascular: normal rate, regular rhythm Respiratory/Chest: no respiratory distress, no accessory muscle use Extremities: normal inspection Skin: normal pigmentation Gustabo Carter DO Dec 03, 2019 13:40
[2019-12-03 16:00] VITALS: BP 110/62
--- NOTE | 2019-12-03 17:27 | Pulmonology Progress Note ---
Subjective ROS Limited/Unobtainable: Yes Interval Events: Re-intubated on 11/19/19; Status post tracheostomy 11/24/2019 Constitutional: Denies: fever HEENT: Repors: no symptoms Respiratory: Reports: dry cough, shortness of breath Cardiovascular: Reports: no symptoms Gastrointestinal/Abdominal: Reports: diarrhea Allergies: Coded Allergies: No Known Allergies (Unverified , 11/06/19) All Systems: reviewed and negative except above Objective Last 24 Hour Vital Signs Date Time Temp Pulse Resp B/P (MAP) Pulse Ox O2 Delivery O2 Flow Rate FiO2 12/03/19 16:48 84 22 40 12/03/19 16:00 89 12/03/19 16:00 Mechanical Ventilator Mechanical Ventilator 12/03/19 16:00 40 12/03/19 16:00 98.9 83 20 110/62 (78) 100 12/03/19 15:03 85 28 40 12/03/19 12:39 81 22 40 12/03/19 12:00 99.5 81 21 104/51 (68) 100 12/03/19 12:00 40 12/03/19 12:00 80 12/03/19 12:00 Mechanical Ventilator Mechanical Ventilator 12/03/19 10:45 76 19 40 12/03/19 09:05 85 20 40 12/03/19 09:04 100 12/03/19 08:21 77 117/53 12/03/19 08:00 Mechanical Ventilator Mechanical Ventilator 12/03/19 08:00 40 12/03/19 08:00 85 12/03/19 07:56 98.4 77 24 117/53 (74) 98 12/03/19 07:01 74 21 40 12/03/19 05:15 81 24 40 12/03/19 04:00 40 12/03/19 04:00 98.8 85 24 120/60 (80) 100 12/03/19 04:00 Mechanical Ventilator Mechanical Ventilator 12/03/19 03:30 85 12/03/19 02:56 92 22 40 12/03/19 01:08 86 19 40 12/03/19 00:00 Mechanical Ventilator Mechanical Ventilator 12/03/19 00:00 98.9 85 18 105/53 (70) 100 12/02/19 23:31 78 22 40 12/02/19 23:27 84 12/02/19 21:03 95 21 40 8/12/20 20:14 87 95/45 12/02/19 20:00 40 12/02/19 20:00 98.4 84 20 119/54 (75) 100 12/02/19 20:00 Mechanical Ventilator Mechanical Ventilator 12/02/19 19:18 80 31 40 12/02/19 19:00 77 Intake and Output 12/02/19 12/03/19 19:00 07:00 Intake Total 800 ml 550 ml Output Total 700 ml Balance 100 ml 550 ml Free Water 200 ml Tube Feeding 600 ml 550 ml Output Urine Total 400 ml Stool Total 300 ml General Appearance: no acute distress HEENT: normocephalic, status post trach Respiratory: decreased breath sounds Cardiovascular: normal peripheral pulses Abdomen: normal bowel sounds Extremities: no cyanosis Microbiology Date/Time Source Procedure Growth Status 12/01/19 09:41 Nasopharynx SARS-CoV-2 RdRp Gene Assay - Final Complete Laboratory Tests 12/02/19 18:10: Stool Occult Blood Negative 12/03/19 01:09: POC Whole Blood Glucose 127H 12/03/19 03:55: White Blood Count 10.0, Red Blood Count 3.41L, Hemoglobin 9.2L, Hematocrit 30.6L , Mean Corpuscular Volume 90, Mean Corpuscular Hemoglobin 26.9L, Mean Corpuscular Hemoglobin Concent 29.9L, Red Cell Distribution Width 19.8H, Platelet Count 337, Mean Platelet Volume 6.7, Neutrophils (%) (Auto) 81.7H, Lymphocytes (%) (Auto) 9.8L, Monocytes (%) (Auto) 5.5, Eosinophils (%) (Auto) 2.3, Basophils (%) (Auto) 0.7, Sodium Level 146H, Potassium Level 3.4L, Chloride Level 108H, Carbon Dioxide Level 37H, Anion Gap 1L, Blood Urea Nitrogen 17, Creatinine 0.6, Estimat Glomerular Filtration Rate > 60, Glucose Level 129H, Calcium Level 8.4L, Phosphorus Level 2.7, Magnesium Level 2.0, Total Bilirubin 0.5, Aspartate Amino Transf (AST/SGOT) 40H, Alanine Aminotransferase (ALT/SGPT) 32, Alkaline Phosphatase 169H, Total Protein 6.0L, Albumin 1.7L, Globulin 4.3, Albumin/Globulin Ratio 0.4L 12/03/19 05:37: POC Whole Blood Glucose 124H 12/03/19 11:45: POC Whole Blood Glucose 128H 12/03/19 17:01: POC Whole Blood Glucose 132H Current Medications Medications (Trade) Dose Ordered Sig/Robyn Route PRN Reason Start Time Stop Time Status Last Admin Dose Admin Acetaminophen (Tylenol) 650 mg Q4H PRN GT For Pain 11/30/19 17:45 12/30/19 17:44 11/30/19 18:24 Acetaminophen (Tylenol) 650 mg Q6H PRN GT Temp >100.5 11/29/19 15:00 12/12/19 14:59 12/01/19 02:11 Amiodarone HCl (Cordarone) 400 mg DAILY GT 11/30/19 09:00 02/18/20 09:29 12/03/19 08:22 Clonidine HCl (Catapres Tab) 0.1 mg Q4H PRN GT For High Blood Pressure 11/29/19 14:30 02/09/20 14:29 Dextrose (Dextrose 50%) 25 ml Q30M PRN IV Hypoglycemia 11/29/19 14:15 02/21/20 06:44 Dextrose (Dextrose 50%) 50 ml Q30M PRN IV Hypoglycemia 11/29/19 14:15 02/21/20 06:44 Famotidine (Pepcid) 20 mg BID GT 11/29/19 18:00 02/26/20 17:59 12/03/19 17:10 Folic Acid (Folate) 2 mg DAILY GT 11/30/19 09:00 12/15/19 08:59 12/03/19 08:21 Insulin Aspart (NovoLOG) EVERY 6 HOURS SUBQ 11/29/19 18:00 02/11/20 20:59 12/02/19 12:18 Insulin Detemir (Levemir) 10 units BID SUBQ 12/01/19 09:00 02/21/20 08:59 12/03/19 17:10 Metolazone (Zaroxolyn) 2.5 mg DAILY GT 11/30/19 09:00 12/28/19 09:29 12/03/19 08:22 Metoprolol Tartrate (Lopressor) 25 mg Q12HR GT 11/29/19 21:00 02/18/20 09:29 12/03/19 08:21 Vancomycin HCl (Firvanq) 125 mg FOUR TIMES A DAY GT 12/01/19 13:00 12/08/19 12:59 12/03/19 17:10 Assessment/Plan Assessment/Plan IMPRESSION: 1. COVID-19 pneumonia. 2. Diabetes mellitus and hypertension. 3. Lactic acidemia. 4. Epistaxis 5. Respiratory failure; failed extubation 6. S/p trach/PEG DISCUSSION: Careful and close monitoring. Continue medications status post tracheostomy Begin weaning; trach collar S/p PEG no longer on Lasix I will follow carefully Dc planning to sub-acute Lakeisha Zavaleta Omar Syed MD Dec 03, 2019 17:27
--- NOTE | 2019-12-03 18:04 | General Progress Note ---
Assessment/Plan Problem List: (1) Hypoxia ICD Codes: R09.02 - Hypoxemia SNOMED: 146448129 (2) CHF (congestive heart failure) ICD Codes: I50.9 - Heart failure, unspecified SNOMED: 19943707 (3) Diabetes ICD Codes: E11.9 - Type 2 diabetes mellitus without complications SNOMED: 64692550 (4) Fluid overload ICD Codes: E87.70 - Fluid overload, unspecified SNOMED: 69157635 (5) 2019 novel coronavirus disease (COVID-19) ICD Codes: U07.1 - COVID-19 SNOMED: 636393730 Status: stable, progressing Assessment/Plan: continue Levemir 10 units bid continue Novolog sliding scale every 6 hours hypoglycemia protocol in order repeat thyroid function improved - no need for thyroid medication Subjective Allergies: Coded Allergies: No Known Allergies (Unverified , 11/06/19) Subjective events noted glucose values are stable Item Value Date Time Bedside Blood Glucose 132 mg/dl H 12/03/19 1800 Bedside Blood Glucose 128 mg/dl H 12/03/19 1151 Bedside Blood Glucose 124 mg/dl H 12/03/19 0823 Bedside Blood Glucose 124 mg/dl H 12/03/19 0600 Bedside Blood Glucose 127 mg/dl H 12/03/19 0000 Bedside Blood Glucose 131 mg/dl H 12/02/19 1800 Bedside Blood Glucose 193 mg/dl H 12/02/19 1218 Objective Last 24 Hour Vital Signs Date Time Temp Pulse Resp B/P (MAP) Pulse Ox O2 Delivery O2 Flow Rate FiO2 12/03/19 16:48 84 22 40 12/03/19 16:00 89 12/03/19 16:00 Mechanical Ventilator Mechanical Ventilator 12/03/19 16:00 40 12/03/19 16:00 98.9 83 20 110/62 (78) 100 12/03/19 15:03 85 28 40 12/03/19 12:39 81 22 40 12/03/19 12:00 99.5 81 21 104/51 (68) 100 12/03/19 12:00 40 12/03/19 12:00 80 12/03/19 12:00 Mechanical Ventilator Mechanical Ventilator 12/03/19 10:45 76 19 40 12/03/19 09:05 85 20 40 12/03/19 09:04 100 8/13/20 08:21 77 117/53 12/03/19 08:00 Mechanical Ventilator Mechanical Ventilator 12/03/19 08:00 40 12/03/19 08:00 85 12/03/19 07:56 98.4 77 24 117/53 (74) 98 12/03/19 07:01 74 21 40 12/03/19 05:15 81 24 40 12/03/19 04:00 40 12/03/19 04:00 98.8 85 24 120/60 (80) 100 12/03/19 04:00 Mechanical Ventilator Mechanical Ventilator 12/03/19 03:30 85 12/03/19 02:56 92 22 40 12/03/19 01:08 86 19 40 12/03/19 00:00 Mechanical Ventilator Mechanical Ventilator 12/03/19 00:00 98.9 85 18 105/53 (70) 100 12/02/19 23:31 78 22 40 12/02/19 23:27 84 12/02/19 21:03 95 21 40 12/02/19 20:14 87 95/45 12/02/19 20:00 40 12/02/19 20:00 98.4 84 20 119/54 (75) 100 12/02/19 20:00 Mechanical Ventilator Mechanical Ventilator 12/02/19 19:18 80 31 40 12/02/19 19:00 77 Intake and Output 12/02/19 12/03/19 19:00 07:00 Intake Total 800 ml 600 ml Output Total 700 ml Balance 100 ml 600 ml Free Water 200 ml Tube Feeding 600 ml 600 ml Output Urine Total 400 ml Stool Total 300 ml Laboratory Tests 12/02/19 18:10: Stool Occult Blood Negative 12/03/19 01:09: POC Whole Blood Glucose 127H 12/03/19 03:55: White Blood Count 10.0, Red Blood Count 3.41L, Hemoglobin 9.2L, Hematocrit 30.6L , Mean Corpuscular Volume 90, Mean Corpuscular Hemoglobin 26.9L, Mean Corpuscular Hemoglobin Concent 29.9L, Red Cell Distribution Width 19.8H, Platelet Count 337, Mean Platelet Volume 6.7, Neutrophils (%) (Auto) 81.7H, Lymphocytes (%) (Auto) 9.8L, Monocytes (%) (Auto) 5.5, Eosinophils (%) (Auto) 2.3, Basophils (%) (Auto) 0.7, Sodium Level 146H, Potassium Level 3.4L, Chloride Level 108H, Carbon Dioxide Level 37H, Anion Gap 1L, Blood Urea Nitrogen 17, Creatinine 0.6, Estimat Glomerular Filtration Rate > 60, Glucose Level 129H, Calcium Level 8.4L, Phosphorus Level 2.7, Magnesium Level 2.0, Total Bilirubin 0.5, Aspartate Amino Transf (AST/SGOT) 40H, Alanine Aminotransferase (ALT/SGPT) 32, Alkaline Phosphatase 169H, Total Protein 6.0L, Albumin 1.7L, Globulin 4.3, Albumin/Globulin Ratio 0.4L 12/03/19 05:37: POC Whole Blood Glucose 124H 12/03/19 11:45: POC Whole Blood Glucose 128H 12/03/19 17:01: POC Whole Blood Glucose 132H Height (Feet): 5 Height (Inches): 1.00 Weight (Pounds): 306 Objective Current Medications Medications (Trade) Dose Ordered Sig/Robyn Route PRN Reason Start Time Stop Time Status Last Admin Dose Admin Acetaminophen (Tylenol) 650 mg Q4H PRN GT For Pain 11/30/19 17:45 12/30/19 17:44 11/30/19 18:24 Acetaminophen (Tylenol) 650 mg Q6H PRN GT Temp >100.5 11/29/19 15:00 12/12/19 14:59 12/01/19 02:11 Amiodarone HCl (Cordarone) 400 mg DAILY GT 11/30/19 09:00 02/18/20 09:29 12/03/19 08:22 Clonidine HCl (Catapres Tab) 0.1 mg Q4H PRN GT For High Blood Pressure 11/29/19 14:30 02/09/20 14:29 Dextrose (Dextrose 50%) 25 ml Q30M PRN IV Hypoglycemia 11/29/19 14:15 02/21/20 06:44 Dextrose (Dextrose 50%) 50 ml Q30M PRN IV Hypoglycemia 11/29/19 14:15 02/21/20 06:44 Famotidine (Pepcid) 20 mg BID GT 11/29/19 18:00 02/26/20 17:59 12/03/19 17:10 Folic Acid (Folate) 2 mg DAILY GT 11/30/19 09:00 12/15/19 08:59 12/03/19 08:21 Insulin Aspart (NovoLOG) EVERY 6 HOURS SUBQ 11/29/19 18:00 02/11/20 20:59 12/02/19 12:18 Insulin Detemir (Levemir) 10 units BID SUBQ 12/01/19 09:00 02/21/20 08:59 12/03/19 17:10 Metolazone (Zaroxolyn) 2.5 mg DAILY GT 11/30/19 09:00 12/28/19 09:29 12/03/19 08:22 Metoprolol Tartrate (Lopressor) 25 mg Q12HR GT 11/29/19 21:00 02/18/20 09:29 12/03/19 08:21 Vancomycin HCl (Firvanq) 125 mg FOUR TIMES A DAY GT 12/01/19 13:00 12/08/19 12:59 12/03/19 17:10 Alphonse Ojeda MD Dec 03, 2019 18:04
[2019-12-03 20:00] VITALS: BP 133/75
[2019-12-04] VITALS: BP 129/65
[2019-12-04] MEDS: NovoLOG Insulin Flexpen SUBQ SCH ×4 (00:12→17:13)
[2019-12-04 04:00] VITALS: BP 121/72
[2019-12-04 04:38] LABS: BASOPHILS % (AUTO) 1.1 % (0.0-2.0); EOSINOPHILS % (AUTO) 1.4 % (0.0-3.0); HEMATOCRIT 30.6 % (37.0-47.0); HEMOGLOBIN 9.2 G/DL (12.0-16.0); LYMPHOCYTES % (AUTO) 10.4 % (20.0-45.0); MEAN CORPUSCULAR VOLUME 88 FL (80-99); MONOCYTES % (AUTO) 6.9 % (1.0-10.0); NEUTROPHILS % (AUTO) 80.2 % (45.0-75.0); PLATELET COUNT 354 K/UL (150-450); RED BLOOD COUNT 3.47 M/UL (4.20-5.40); WHITE BLOOD COUNT 7.9 K/UL (4.8-10.8)
[2019-12-04 04:53] LABS: ANION GAP 3 mmol/L (5-15); BLOOD UREA NITROGEN 17 mg/dL (7-18); CALCIUM 8.2 MG/DL (8.5-10.1); CARBON DIOXIDE 37 MMOL/L (21-32); CHLORIDE 106 MMOL/L (98-107); CREATININE 0.7 MG/DL (0.55-1.30); POTASSIUM 3.7 MMOL/L (3.5-5.1); SODIUM 145 MMOL/L (136-145)
--- NOTE | 2019-12-04 06:22 | Hematology/Onc Progress Note ---
Assessment/Plan Assessment/Plan # Anemia of chronic disease due to underlying chronic medical issues, multifactorial v Gi bleed in this case likely related covid19+++++++++ --> Anemia workup has been ordered, rule out gi bleed --> No evidence of hemolysis is noted, peripheral smear has been reviewed. --> Hgb goal >7. Transfuse prn. --> Epogen or iron at this time is not particularly indicated --> Medications have been reviewed --> low threshold for gi evaluation in case has occult + --> hgb 10-->9.8-->9.2-->9.7-->10.7->10->11->10.2->10.6->9.4->10.8->9.8-->10->10 -->9.2 # Leukocytosis/elevated white blood cell count, unspecified likely related to covid19 --> have reviewed peripheral smear and bandemia/neutrophilia noted --> continue antibiotics if they have been started by ID team zosyn --> on remdesivir, dexamathasone --> monitor for resolution --> wbc 12->11-->11-->13->16-->21-->17-->14-->14->13-->11 # COVID 19 pneumonia --> on vent --> respiratory failure --> s/p vent reintubation 11/08 --> 11/23 trach was done # Diabetes mellitus --> iss and bs goal <140 # Dysphagia --> peg 11/24 # Hypertension --> sbp goal <150 # Dvt ppx scds Appreciate consultation and jimena RN Subjective Constitutional: Denies: no symptoms, chills, fever, malaise, weakness, other Cardiovascular: Denies: no symptoms, chest pain, edema, irregular heart rate, lightheadedness, palpitations, syncope, other Respiratory: Denies: no symptoms, cough, shortness of breath, SOB with excertion, SOB at rest, sputum, wheezing, other Gastrointestinal/Abdominal: Denies: no symptoms, abdomen distended, abdominal pain, black stools, tarry stools, blood in stool, constipated, diarrhea, difficulty swallowing, nausea, poor appetite, poor fluid intake, rectal bleeding , vomiting, other Neurologic/Psychiatric: Denies: no symptoms, anxiety, depressed, emotional problems, headache, numbness, paresthesia, pre-existing deficit, seizure, tingling, tremors, weakness, other Endocrine: Denies: no symptoms, excessive sweating, flushing, intolerance to cold, intolerance to heat, increased hunger, increased thirst, increased urine, unexplained weight gain, unexplained weight loss, other Hematologic/Lymphatic: Denies: no symptoms, anemia, easy bleeding, easy bruising, adenopathy, other Allergies: Coded Allergies: No Known Allergies (Unverified , 11/06/19) Subjective 11/09 weaning prn, meds reviewed, labs noted, hgb 9.2 11/10 on vent, no bleeding, hgb remains low, jimena Rn Jose R in am 11/11 on vent, fluids, ogf tube as well, labs pending in am 11/12 remains altered, no bleeding, labs reviewed, cbc noted 11/13 attempted weaning, but did not do well, no bleeding, hgb 10 11/14 intubated, weaning, on vent, with og, labs noted, abx 11/15 labs noted, no bleedign, weaning protocol, no night sweats, elev wbc, with fevers 11/16 no bleeding, jimena Broussard rn in the am, on vent, weaning but failed 11/17 meds reviewed, no night sweats, jimena rn, no bleeding 11/18 extubated, on nc at this time, no bleeding, meds reviewed 11/19 labs noted, no bleeding, on vent again, weaning 11/21 labs reviewed, hgb 9.4, no hemolysis, very difficult to obtain repeat lab draw in am 11/22 unable to wean vent, labs noted, plan for trach tomorrow, on fentanyl, still edematous 11/23 is for trach today and peg tomorrow, stil edematous, on lasix gtt 11/24 meds noted, no bleeding, on vent, for peg this am, trach functional 11/25 labs reviewed, no bleeding, meds noted, obtunded, hr better 11/26 picc line continues to leak, no bleeding, labs noted, low grade fever, id aware 12/03 remains altered, labs noted, no bleeding, hgb remains low, tmax 99.7f Objective Objective Current Medications Medications (Trade) Dose Ordered Sig/Robyn Route PRN Reason Start Time Stop Time Status Last Admin Dose Admin Acetaminophen (Tylenol) 650 mg Q4H PRN GT For Pain 11/30/19 17:45 12/30/19 17:44 11/30/19 18:24 Acetaminophen (Tylenol) 650 mg Q6H PRN GT Temp >100.5 11/29/19 15:00 12/12/19 14:59 12/01/19 02:11 Amiodarone HCl (Cordarone) 400 mg DAILY GT 11/30/19 09:00 02/18/20 09:29 12/03/19 08:22 Clonidine HCl (Catapres Tab) 0.1 mg Q4H PRN GT For High Blood Pressure 11/29/19 14:30 02/09/20 14:29 Dextrose (Dextrose 50%) 25 ml Q30M PRN IV Hypoglycemia 11/29/19 14:15 02/21/20 06:44 Dextrose (Dextrose 50%) 50 ml Q30M PRN IV Hypoglycemia 11/29/19 14:15 02/21/20 06:44 Famotidine (Pepcid) 20 mg BID GT 11/29/19 18:00 02/26/20 17:59 12/03/19 17:10 Folic Acid (Folate) 2 mg DAILY GT 11/30/19 09:00 12/15/19 08:59 12/03/19 08:21 Insulin Aspart (NovoLOG) EVERY 6 HOURS SUBQ 11/29/19 18:00 02/11/20 20:59 12/04/19 00:12 Insulin Detemir (Levemir) 10 units BID SUBQ 12/01/19 09:00 02/21/20 08:59 12/03/19 17:10 Lorazepam (Ativan 2mg/ml 1ml) 2 mg Q3H PRN IV For Anxiety 12/03/19 21:45 12/10/19 21:44 12/03/19 21:50 Metolazone (Zaroxolyn) 2.5 mg DAILY GT 11/30/19 09:00 12/28/19 09:29 12/03/19 08:22 Metoprolol Tartrate (Lopressor) 25 mg Q12HR GT 11/29/19 21:00 02/18/20 09:29 12/03/19 20:43 Vancomycin HCl (Firvanq) 125 mg FOUR TIMES A DAY GT 12/01/19 13:00 12/08/19 12:59 12/03/19 20:42 Last 24 Hour Vital Signs Date Time Temp Pulse Resp B/P (MAP) Pulse Ox O2 Delivery O2 Flow Rate FiO2 12/04/19 05:02 82 23 40 12/04/19 04:00 Mechanical Ventilator Mechanical Ventilator 12/04/19 04:00 87 12/04/19 04:00 40 12/04/19 04:00 99.7 85 21 121/72 (88) 100 12/04/19 03:30 97 20 40 12/04/19 01:30 95 21 40 12/04/19 00:00 89 12/04/19 00:00 Mechanical Ventilator Mechanical Ventilator 12/04/19 00:00 99.7 91 16 129/65 (86) 100 12/03/19 23:24 92 21 40 12/03/19 21:29 85 22 40 12/03/19 20:43 91 133/75 12/03/19 20:00 40 12/03/19 20:00 Mechanical Ventilator Mechanical Ventilator 12/03/19 20:00 99.7 93 24 133/75 (94) 97 12/03/19 20:00 96 12/03/19 19:30 86 22 40 12/03/19 16:48 84 22 40 12/03/19 16:00 89 12/03/19 16:00 Mechanical Ventilator Mechanical Ventilator 12/03/19 16:00 40 12/03/19 16:00 98.9 83 20 110/62 (78) 100 12/03/19 15:03 85 28 40 12/03/19 12:39 81 22 40 12/03/19 12:00 99.5 81 21 104/51 (68) 100 12/03/19 12:00 40 12/03/19 12:00 80 12/03/19 12:00 Mechanical Ventilator Mechanical Ventilator 12/03/19 10:45 76 19 40 12/03/19 09:05 85 20 40 12/03/19 09:04 100 12/03/19 08:21 77 117/53 12/03/19 08:00 Mechanical Ventilator Mechanical Ventilator 12/03/19 08:00 40 12/03/19 08:00 85 12/03/19 07:56 98.4 77 24 117/53 (74) 98 12/03/19 07:01 74 21 40 12/03/19 05:15 81 24 40 12/03/19 04:00 40 12/03/19 04:00 98.8 85 24 120/60 (80) 100 12/03/19 04:00 Mechanical Ventilator Mechanical Ventilator 12/03/19 03:30 85 12/03/19 02:56 92 22 40 12/03/19 01:08 86 19 40 12/03/19 00:00 Mechanical Ventilator Mechanical Ventilator 12/03/19 00:00 98.9 85 18 105/53 (70) 100 12/02/19 23:31 78 22 40 12/02/19 23:27 84 12/02/19 21:03 95 21 40 12/02/19 20:14 87 95/45 12/02/19 20:00 40 12/02/19 20:00 98.4 84 20 119/54 (75) 100 12/02/19 20:00 Mechanical Ventilator Mechanical Ventilator 12/02/19 19:18 80 31 40 12/02/19 19:00 77 12/02/19 17:18 84 27 40 12/02/19 17:02 99.3 12/02/19 16:00 40 12/02/19 16:00 100.2 86 18 115/58 (77) 100 12/02/19 16:00 Mechanical Ventilator Mechanical Ventilator 12/02/19 16:00 76 12/02/19 15:48 87 23 40 12/02/19 12:55 82 23 40 12/02/19 12:00 Mechanical Ventilator Mechanical Ventilator 12/02/19 12:00 83 12/02/19 12:00 40 12/02/19 12:00 99.0 82 18 114/58 (76) 100 12/02/19 10:51 77 20 40 12/02/19 09:18 101 23 40 12/02/19 08:29 94 116/56 12/02/19 08:00 98.1 89 18 116/56 (76) 100 12/02/19 08:00 40 12/02/19 08:00 95 12/02/19 08:00 Mechanical Ventilator Mechanical Ventilator 12/02/19 07:17 105 26 40 Intake and Output 12/03/19 12/04/19 19:00 07:00 Intake Total 1000 ml 700 ml Output Total 700 ml 450 ml Balance 300 ml 250 ml Free Water 200 ml 150 ml IV Total 200 ml Tube Feeding 600 ml 550 ml Output Urine Total 500 ml 300 ml Stool Total 200 ml 150 ml Labs Test 12/01/19 22:53 12/02/19 05:09 12/02/19 08:16 12/02/19 11:54 POC Whole Blood Glucose 180 MG/DL (74-106) 193 MG/DL (74-106) Test 12/02/19 16:59 12/02/19 18:10 12/03/19 01:09 12/03/19 03:55 POC Whole Blood Glucose 131 MG/DL (74-106) 127 MG/DL (74-106) Stool Occult Blood Negative (NEGATIVE) White Blood Count 10.0 K/UL (4.8-10.8) Red Blood Count 3.41 M/UL (4.20-5.40) Hemoglobin 9.2 G/DL (12.0-16.0) Hematocrit 30.6 % (37.0-47.0) Mean Corpuscular Volume 90 FL (80-99) Mean Corpuscular Hemoglobin 26.9 PG (27.0-31.0) Mean Corpuscular Hemoglobin Concent 29.9 G/DL (32.0-36.0) Red Cell Distribution Width 19.8 % (11.6-14.8) Platelet Count 337 K/UL (150-450) Mean Platelet Volume 6.7 FL (6.5-10.1) Neutrophils (%) (Auto) 81.7 % (45.0-75.0) Lymphocytes (%) (Auto) 9.8 % (20.0-45.0) Monocytes (%) (Auto) 5.5 % (1.0-10.0) Eosinophils (%) (Auto) 2.3 % (0.0-3.0) Basophils (%) (Auto) 0.7 % (0.0-2.0) Sodium Level 146 MMOL/L (136-145) Potassium Level 3.4 MMOL/L (3.5-5.1) Chloride Level 108 MMOL/L (98-107) Carbon Dioxide Level 37 MMOL/L (21-32) Anion Gap 1 mmol/L (5-15) Blood Urea Nitrogen 17 mg/dL (7-18) Creatinine 0.6 MG/DL (0.55-1.30) Estimat Glomerular Filtration Rate > 60 mL/min (>60) Glucose Level 129 MG/DL (74-106) Calcium Level 8.4 MG/DL (8.5-10.1) Phosphorus Level 2.7 MG/DL (2.5-4.9) Magnesium Level 2.0 MG/DL (1.8-2.4) Total Bilirubin 0.5 MG/DL (0.2-1.0) Aspartate Amino Transf (AST/SGOT) 40 U/L (15-37) Alanine Aminotransferase (ALT/SGPT) 32 U/L (12-78) Alkaline Phosphatase 169 U/L (46-116) Total Protein 6.0 G/DL (6.4-8.2) Albumin 1.7 G/DL (3.4-5.0) Globulin 4.3 g/dL Albumin/Globulin Ratio 0.4 (1.0-2.7) Test 12/03/19 05:37 12/03/19 11:45 12/03/19 17:01 12/04/19 00:08 POC Whole Blood Glucose 124 MG/DL (74-106) 128 MG/DL (74-106) 132 MG/DL (74-106) 147 MG/DL (74-106) Test 12/04/19 03:50 12/04/19 05:14 White Blood Count 7.9 K/UL (4.8-10.8) Red Blood Count 3.47 M/UL (4.20-5.40) Hemoglobin 9.2 G/DL (12.0-16.0) Hematocrit 30.6 % (37.0-47.0) Mean Corpuscular Volume 88 FL (80-99) Mean Corpuscular Hemoglobin 26.4 PG (27.0-31.0) Mean Corpuscular Hemoglobin Concent 30.0 G/DL (32.0-36.0) Red Cell Distribution Width 19.0 % (11.6-14.8) Platelet Count 354 K/UL (150-450) Mean Platelet Volume 5.8 FL (6.5-10.1) Neutrophils (%) (Auto) 80.2 % (45.0-75.0) Lymphocytes (%) (Auto) 10.4 % (20.0-45.0) Monocytes (%) (Auto) 6.9 % (1.0-10.0) Eosinophils (%) (Auto) 1.4 % (0.0-3.0) Basophils (%) (Auto) 1.1 % (0.0-2.0) Sodium Level 145 MMOL/L (136-145) Potassium Level 3.7 MMOL/L (3.5-5.1) Chloride Level 106 MMOL/L (98-107) Carbon Dioxide Level 37 MMOL/L (21-32) Anion Gap 3 mmol/L (5-15) Blood Urea Nitrogen 17 mg/dL (7-18) Creatinine 0.7 MG/DL (0.55-1.30) Estimat Glomerular Filtration Rate > 60 mL/min (>60) Glucose Level 135 MG/DL (74-106) Calcium Level 8.2 MG/DL (8.5-10.1) POC Whole Blood Glucose 148 MG/DL (74-106) Height (Feet): 5 Height (Inches): 1.00 Weight (Pounds): 293 Objective Physical Exam: Vitals: reviewed General: NAD HEENT: nc, at Neck: supple Chest: clear breath sounds on vent++trach+ Cardiovascular: RRR, no s3, s4 Abdomen: soft, nontender, nd++peg Extremities: no cce, normal range of motion Neuro: alert and oriented Ismael Fischer MD Dec 04, 2019 06:22
[2019-12-04] MEDS: Acetaminophen 650mg/20.3ml GT PRN (06:23)
--- NOTE | 2019-12-04 06:35 | General Progress Note ---
Assessment/Plan Problem List: (1) Respiratory failure ICD Codes: J96.90 - Respiratory failure, unspecified, unspecified whether with hypoxia or hypercapnia SNOMED: 302138017 (2) 2019 novel coronavirus disease (COVID-19) ICD Codes: U07.1 - COVID-19 SNOMED: 608958174 (3) Multifocal pneumonia ICD Codes: J18.9 - Pneumonia, unspecified organism SNOMED: 247834311 (4) Afib ICD Codes: I48.91 - Unspecified atrial fibrillation SNOMED: 69128167 (5) CHF (congestive heart failure) ICD Codes: I50.9 - Heart failure, unspecified SNOMED: 47592616 (6) Diabetes ICD Codes: E11.9 - Type 2 diabetes mellitus without complications SNOMED: 21967016 (7) Fluid overload ICD Codes: E87.70 - Fluid overload, unspecified SNOMED: 28022664 (8) Epistaxis ICD Codes: R04.0 - Epistaxis SNOMED: 259693209 Status: stable, progressing Assessment/Plan: fu H&H prn blood transfusion slow drop in H&H without obvious bleeding repeat stool ob GTF patient has rectal tube will fu Subjective ROS Limited/Unobtainable: No Allergies: Coded Allergies: No Known Allergies (Unverified , 11/06/19) Objective Last 24 Hour Vital Signs Date Time Temp Pulse Resp B/P (MAP) Pulse Ox O2 Delivery O2 Flow Rate FiO2 12/04/19 05:02 82 23 40 12/04/19 04:00 Mechanical Ventilator Mechanical Ventilator 12/04/19 04:00 87 12/04/19 04:00 40 12/04/19 04:00 99.7 85 21 121/72 (88) 100 12/04/19 03:30 97 20 40 12/04/19 01:30 95 21 40 12/04/19 00:00 89 12/04/19 00:00 Mechanical Ventilator Mechanical Ventilator 12/04/19 00:00 99.7 91 16 129/65 (86) 100 12/03/19 23:24 92 21 40 12/03/19 21:29 85 22 40 12/03/19 20:43 91 133/75 12/03/19 20:00 40 12/03/19 20:00 Mechanical Ventilator Mechanical Ventilator 12/03/19 20:00 99.7 93 24 133/75 (94) 97 8/13/20 20:00 96 12/03/19 19:30 86 22 40 12/03/19 16:48 84 22 40 12/03/19 16:00 89 12/03/19 16:00 Mechanical Ventilator Mechanical Ventilator 12/03/19 16:00 40 12/03/19 16:00 98.9 83 20 110/62 (78) 100 12/03/19 15:03 85 28 40 12/03/19 12:39 81 22 40 12/03/19 12:00 99.5 81 21 104/51 (68) 100 12/03/19 12:00 40 12/03/19 12:00 80 12/03/19 12:00 Mechanical Ventilator Mechanical Ventilator 12/03/19 10:45 76 19 40 12/03/19 09:05 85 20 40 12/03/19 09:04 100 12/03/19 08:21 77 117/53 12/03/19 08:00 Mechanical Ventilator Mechanical Ventilator 12/03/19 08:00 40 12/03/19 08:00 85 12/03/19 07:56 98.4 77 24 117/53 (74) 98 12/03/19 07:01 74 21 40 Intake and Output 12/03/19 12/04/19 19:00 07:00 Intake Total 1000 ml 700 ml Output Total 700 ml 450 ml Balance 300 ml 250 ml Free Water 200 ml 150 ml IV Total 200 ml Tube Feeding 600 ml 550 ml Output Urine Total 500 ml 300 ml Stool Total 200 ml 150 ml Laboratory Tests 12/03/19 11:45: POC Whole Blood Glucose 128H 12/03/19 17:01: POC Whole Blood Glucose 132H 12/04/19 00:08: POC Whole Blood Glucose 147H 12/04/19 03:50: White Blood Count 7.9, Red Blood Count 3.47L, Hemoglobin 9.2L, Hematocrit 30.6L , Mean Corpuscular Volume 88, Mean Corpuscular Hemoglobin 26.4L, Mean Corpuscular Hemoglobin Concent 30.0L, Red Cell Distribution Width 19.0H, Platelet Count 354, Mean Platelet Volume 5.8L, Neutrophils (%) (Auto) 80.2H, Lymphocytes (%) (Auto) 10.4L, Monocytes (%) (Auto) 6.9, Eosinophils (%) (Auto) 1.4, Basophils (%) (Auto) 1.1, Sodium Level 145, Potassium Level 3.7, Chloride Level 106, Carbon Dioxide Level 37H, Anion Gap 3L, Blood Urea Nitrogen 17, Creatinine 0.7, Estimat Glomerular Filtration Rate > 60, Glucose Level 135H, Calcium Level 8.2L 12/04/19 05:14: POC Whole Blood Glucose 148H Height (Feet): 5 Height (Inches): 1.00 Weight (Pounds): 293 General Appearance: lethargic EENT: normal ENT inspection Neck: supple Cardiovascular: normal rate Respiratory/Chest: decreased breath sounds Abdomen: hypoactive bowel sounds Extremities: non-tender Case Patel MD Dec 04, 2019 06:35
[2019-12-04 07:57] VITALS: BP 118/47
--- NOTE | 2019-12-04 08:07 | Cardiac Electrophysiology PN ---
Assessment/Plan Assessment/Plan 1. Paroxysmal atrial fibrillation. On metoprolol 25 bid and Amiodarone 400 daily Decrease Amio to 200 daily Off anticoagulation for hematuria and black stool EF 55% on echo. 2. S/P Shock. Off pressors. 3. COVID positive pneumonia. Now negative x2 and off isolation 4. Diabetes, on insulin. 5. Respiratory failure on the Vent. S/P Tracheostomy 11/24/19 6. S/P Massive nasal bleed. 7. Severe LE edema. 8. Dysphagia, S/P PEG 11/25/19 DW RN Subjective Subjective In Step down on the vent with 40% Fio2. Off Covid isolation S/P tracheostomy 11/24/19 and PEG 11/25/19. Trach leaking In atrial fib rate controlled on Lopressor 25 bid. RN at bedside Objective Last 24 Hour Vital Signs Date Time Temp Pulse Resp B/P (MAP) Pulse Ox O2 Delivery O2 Flow Rate FiO2 12/04/19 07:57 98.4 80 21 118/47 (70) 100 12/04/19 05:02 82 23 40 12/04/19 04:00 Mechanical Ventilator Mechanical Ventilator 12/04/19 04:00 87 12/04/19 04:00 40 12/04/19 04:00 99.7 85 21 121/72 (88) 100 12/04/19 03:30 97 20 40 12/04/19 01:30 95 21 40 12/04/19 00:00 89 12/04/19 00:00 Mechanical Ventilator Mechanical Ventilator 12/04/19 00:00 99.7 91 16 129/65 (86) 100 12/03/19 23:24 92 21 40 12/03/19 21:29 85 22 40 12/03/19 20:43 91 133/75 12/03/19 20:00 40 12/03/19 20:00 Mechanical Ventilator Mechanical Ventilator 12/03/19 20:00 99.7 93 24 133/75 (94) 97 12/03/19 20:00 96 12/03/19 19:30 86 22 40 12/03/19 16:48 84 22 40 12/03/19 16:00 89 12/03/19 16:00 Mechanical Ventilator Mechanical Ventilator 12/03/19 16:00 40 12/03/19 16:00 98.9 83 20 110/62 (78) 100 12/03/19 15:03 85 28 40 12/03/19 12:39 81 22 40 12/03/19 12:00 99.5 81 21 104/51 (68) 100 12/03/19 12:00 40 12/03/19 12:00 80 12/03/19 12:00 Mechanical Ventilator Mechanical Ventilator 12/03/19 10:45 76 19 40 12/03/19 09:05 85 20 40 12/03/19 09:04 100 12/03/19 08:21 77 117/53 Intake and Output 12/03/19 12/04/19 19:00 07:00 Intake Total 1000 ml 700 ml Output Total 700 ml 450 ml Balance 300 ml 250 ml Free Water 200 ml 150 ml IV Total 200 ml Tube Feeding 600 ml 550 ml Output Urine Total 500 ml 300 ml Stool Total 200 ml 150 ml Laboratory Tests Test 12/03/19 11:45 12/03/19 17:01 12/04/19 00:08 12/04/19 03:50 POC Whole Blood Glucose 128 MG/DL (74-106) H 132 MG/DL (74-106) H 147 MG/DL (74-106) H White Blood Count 7.9 K/UL (4.8-10.8) Red Blood Count 3.47 M/UL (4.20-5.40) L Hemoglobin 9.2 G/DL (12.0-16.0) L Hematocrit 30.6 % (37.0-47.0) L Mean Corpuscular Volume 88 FL (80-99) Mean Corpuscular Hemoglobin 26.4 PG (27.0-31.0) L Mean Corpuscular Hemoglobin Concent 30.0 G/DL (32.0-36.0) L Red Cell Distribution Width 19.0 % (11.6-14.8) H Platelet Count 354 K/UL (150-450) Mean Platelet Volume 5.8 FL (6.5-10.1) L Neutrophils (%) (Auto) 80.2 % (45.0-75.0) H Lymphocytes (%) (Auto) 10.4 % (20.0-45.0) L Monocytes (%) (Auto) 6.9 % (1.0-10.0) Eosinophils (%) (Auto) 1.4 % (0.0-3.0) Basophils (%) (Auto) 1.1 % (0.0-2.0) Sodium Level 145 MMOL/L (136-145) Potassium Level 3.7 MMOL/L (3.5-5.1) Chloride Level 106 MMOL/L (98-107) Carbon Dioxide Level 37 MMOL/L (21-32) H Anion Gap 3 mmol/L (5-15) L Blood Urea Nitrogen 17 mg/dL (7-18) Creatinine 0.7 MG/DL (0.55-1.30) Estimat Glomerular Filtration Rate > 60 mL/min (>60) Glucose Level 135 MG/DL (74-106) H Calcium Level 8.2 MG/DL (8.5-10.1) L Test 12/04/19 05:14 POC Whole Blood Glucose 148 MG/DL (74-106) H Microbiology Date/Time Source Procedure Growth Status 12/01/19 09:41 Nasopharynx SARS-CoV-2 RdRp Gene Assay - Final Complete Objective HEAD AND NECK: No JVD. Tracheostomy in place. LUNGS: Coarse rhonchi. CARDIOVASCULAR: Irregularly irregular. S1 and S2 with no gallop or murmur. ABDOMEN: Soft.PEG EXTREMITIES: 2 plus pitting edema. Gabe Snell MD Dec 04, 2019 08:07
[2019-12-04] MEDS: Amiodarone 200mg tab GT SCH (08:39)
[2019-12-04] MEDS: metOLazone 2.5 MG TAB GT SCH (08:39)
[2019-12-04] MEDS: Vancomycin oral 125mg/2.5ml GT SCH ×4 (08:42→20:07)
[2019-12-04] MEDS: Levemir Flexpen SUBQ SCH ×2 (08:42→17:12)
--- NOTE | 2019-12-04 09:54 | General Progress Note ---
Assessment/Plan Problem List: (1) Afib ICD Codes: I48.91 - Unspecified atrial fibrillation SNOMED: 66875212 (2) Epistaxis ICD Codes: R04.0 - Epistaxis SNOMED: 691121426 (3) Weak ICD Codes: R53.1 - Weakness SNOMED: 98452192 (4) UTI (urinary tract infection) ICD Codes: N39.0 - Urinary tract infection, site not specified SNOMED: 93346254 (5) Diabetes ICD Codes: E11.9 - Type 2 diabetes mellitus without complications SNOMED: 81375467 (6) CHF (congestive heart failure) ICD Codes: I50.9 - Heart failure, unspecified SNOMED: 75485084 (7) Multifocal pneumonia ICD Codes: J18.9 - Pneumonia, unspecified organism SNOMED: 977979662 (8) 2019 novel coronavirus disease (COVID-19) ICD Codes: U07.1 - COVID-19 SNOMED: 118007928 (9) Respiratory failure ICD Codes: J96.90 - Respiratory failure, unspecified, unspecified whether with hypoxia or hypercapnia SNOMED: 871057813 Status: stable, progressing Assessment/Plan: vent abx bp bs control cbc bmp am dc if clear Subjective Constitutional: Reports: weakness Allergies: Coded Allergies: No Known Allergies (Unverified , 11/06/19) All Systems: reviewed and negative except above Subjective trach vent altered Objective Last 24 Hour Vital Signs Date Time Temp Pulse Resp B/P (MAP) Pulse Ox O2 Delivery O2 Flow Rate FiO2 12/04/19 08:42 80 118/47 12/04/19 08:00 85 12/04/19 08:00 Mechanical Ventilator Mechanical Ventilator 12/04/19 08:00 40 12/04/19 07:57 98.4 80 21 118/47 (70) 100 12/04/19 07:27 85 19 40 12/04/19 05:02 82 23 40 12/04/19 04:00 Mechanical Ventilator Mechanical Ventilator 12/04/19 04:00 87 12/04/19 04:00 40 12/04/19 04:00 99.7 85 21 121/72 (88) 100 12/04/19 03:30 97 20 40 12/04/19 01:30 95 21 40 12/04/19 00:00 89 12/04/19 00:00 Mechanical Ventilator Mechanical Ventilator 12/04/19 00:00 99.7 91 16 129/65 (86) 100 12/03/19 23:24 92 21 40 12/03/19 21:29 85 22 40 12/03/19 20:43 91 133/75 12/03/19 20:00 40 12/03/19 20:00 Mechanical Ventilator Mechanical Ventilator 12/03/19 20:00 99.7 93 24 133/75 (94) 97 12/03/19 20:00 96 12/03/19 19:30 86 22 40 12/03/19 16:48 84 22 40 12/03/19 16:00 89 12/03/19 16:00 Mechanical Ventilator Mechanical Ventilator 12/03/19 16:00 40 12/03/19 16:00 98.9 83 20 110/62 (78) 100 12/03/19 15:03 85 28 40 12/03/19 12:39 81 22 40 12/03/19 12:00 99.5 81 21 104/51 (68) 100 12/03/19 12:00 40 12/03/19 12:00 80 12/03/19 12:00 Mechanical Ventilator Mechanical Ventilator 12/03/19 10:45 76 19 40 Intake and Output 12/03/19 12/04/19 19:00 07:00 Intake Total 1000 ml 700 ml Output Total 700 ml 450 ml Balance 300 ml 250 ml Free Water 200 ml 150 ml IV Total 200 ml Tube Feeding 600 ml 550 ml Output Urine Total 500 ml 300 ml Stool Total 200 ml 150 ml Laboratory Tests 12/03/19 11:45: POC Whole Blood Glucose 128H 12/03/19 17:01: POC Whole Blood Glucose 132H 12/04/19 00:08: POC Whole Blood Glucose 147H 12/04/19 03:50: White Blood Count 7.9, Red Blood Count 3.47L, Hemoglobin 9.2L, Hematocrit 30.6L , Mean Corpuscular Volume 88, Mean Corpuscular Hemoglobin 26.4L, Mean Corpuscular Hemoglobin Concent 30.0L, Red Cell Distribution Width 19.0H, Platelet Count 354, Mean Platelet Volume 5.8L, Neutrophils (%) (Auto) 80.2H, Lymphocytes (%) (Auto) 10.4L, Monocytes (%) (Auto) 6.9, Eosinophils (%) (Auto) 1.4, Basophils (%) (Auto) 1.1, Sodium Level 145, Potassium Level 3.7, Chloride Level 106, Carbon Dioxide Level 37H, Anion Gap 3L, Blood Urea Nitrogen 17, Creatinine 0.7, Estimat Glomerular Filtration Rate > 60, Glucose Level 135H, Calcium Level 8.2L 12/04/19 05:14: POC Whole Blood Glucose 148H Height (Feet): 5 Height (Inches): 1.00 Weight (Pounds): 293 General Appearance: lethargic EENT: normal ENT inspection Neck: normal alignment Cardiovascular: normal rate, regular rhythm Respiratory/Chest: no respiratory distress, no accessory muscle use Extremities: normal inspection Skin: normal pigmentation Gustabo Carter DO Dec 04, 2019 09:54
--- NOTE | 2019-12-04 10:17 | Pulmonology Progress Note ---
Subjective ROS Limited/Unobtainable: No Interval Events: Re-intubated on 11/19/19; Status post tracheostomy 11/24/2019 Constitutional: Denies: fever HEENT: Repors: no symptoms Respiratory: Reports: dry cough, shortness of breath Cardiovascular: Reports: no symptoms Gastrointestinal/Abdominal: Reports: diarrhea Allergies: Coded Allergies: No Known Allergies (Unverified , 11/06/19) All Systems: reviewed and negative except above Objective Last 24 Hour Vital Signs Date Time Temp Pulse Resp B/P (MAP) Pulse Ox O2 Delivery O2 Flow Rate FiO2 12/04/19 08:42 80 118/47 12/04/19 08:00 85 12/04/19 08:00 Mechanical Ventilator Mechanical Ventilator 12/04/19 08:00 40 12/04/19 07:57 98.4 80 21 118/47 (70) 100 12/04/19 07:27 85 19 40 12/04/19 05:02 82 23 40 12/04/19 04:00 Mechanical Ventilator Mechanical Ventilator 12/04/19 04:00 87 12/04/19 04:00 40 12/04/19 04:00 99.7 85 21 121/72 (88) 100 12/04/19 03:30 97 20 40 12/04/19 01:30 95 21 40 12/04/19 00:00 89 12/04/19 00:00 Mechanical Ventilator Mechanical Ventilator 12/04/19 00:00 99.7 91 16 129/65 (86) 100 12/03/19 23:24 92 21 40 12/03/19 21:29 85 22 40 12/03/19 20:43 91 133/75 12/03/19 20:00 40 12/03/19 20:00 Mechanical Ventilator Mechanical Ventilator 12/03/19 20:00 99.7 93 24 133/75 (94) 97 12/03/19 20:00 96 12/03/19 19:30 86 22 40 12/03/19 16:48 84 22 40 12/03/19 16:00 89 12/03/19 16:00 Mechanical Ventilator Mechanical Ventilator 12/03/19 16:00 40 12/03/19 16:00 98.9 83 20 110/62 (78) 100 12/03/19 15:03 85 28 40 12/03/19 12:39 81 22 40 12/03/19 12:00 99.5 81 21 104/51 (68) 100 12/03/19 12:00 40 12/03/19 12:00 80 12/03/19 12:00 Mechanical Ventilator Mechanical Ventilator 12/03/19 10:45 76 19 40 Intake and Output 12/03/19 12/04/19 19:00 07:00 Intake Total 1000 ml 700 ml Output Total 700 ml 450 ml Balance 300 ml 250 ml Free Water 200 ml 150 ml IV Total 200 ml Tube Feeding 600 ml 550 ml Output Urine Total 500 ml 300 ml Stool Total 200 ml 150 ml General Appearance: no acute distress HEENT: normocephalic, status post trach Respiratory: decreased breath sounds Cardiovascular: normal peripheral pulses Abdomen: normal bowel sounds Extremities: no cyanosis Laboratory Tests 12/03/19 11:45: POC Whole Blood Glucose 128H 12/03/19 17:01: POC Whole Blood Glucose 132H 12/04/19 00:08: POC Whole Blood Glucose 147H 12/04/19 03:50: White Blood Count 7.9, Red Blood Count 3.47L, Hemoglobin 9.2L, Hematocrit 30.6L , Mean Corpuscular Volume 88, Mean Corpuscular Hemoglobin 26.4L, Mean Corpuscular Hemoglobin Concent 30.0L, Red Cell Distribution Width 19.0H, Platelet Count 354, Mean Platelet Volume 5.8L, Neutrophils (%) (Auto) 80.2H, Lymphocytes (%) (Auto) 10.4L, Monocytes (%) (Auto) 6.9, Eosinophils (%) (Auto) 1.4, Basophils (%) (Auto) 1.1, Sodium Level 145, Potassium Level 3.7, Chloride Level 106, Carbon Dioxide Level 37H, Anion Gap 3L, Blood Urea Nitrogen 17, Creatinine 0.7, Estimat Glomerular Filtration Rate > 60, Glucose Level 135H, Calcium Level 8.2L 12/04/19 05:14: POC Whole Blood Glucose 148H Current Medications Medications (Trade) Dose Ordered Sig/Robyn Route PRN Reason Start Time Stop Time Status Last Admin Dose Admin Acetaminophen (Tylenol) 650 mg Q4H PRN GT For Pain 11/30/19 17:45 12/30/19 17:44 11/30/19 18:24 Acetaminophen (Tylenol) 650 mg Q6H PRN GT Temp >100.5 11/29/19 15:00 12/12/19 14:59 12/04/19 06:23 Amiodarone HCl (Cordarone) 200 mg DAILY GT 12/04/19 09:00 02/18/20 09:29 12/04/19 08:39 Clonidine HCl (Catapres Tab) 0.1 mg Q4H PRN GT For High Blood Pressure 11/29/19 14:30 02/09/20 14:29 Dextrose (Dextrose 50%) 25 ml Q30M PRN IV Hypoglycemia 11/29/19 14:15 02/21/20 06:44 Dextrose (Dextrose 50%) 50 ml Q30M PRN IV Hypoglycemia 11/29/19 14:15 02/21/20 06:44 Famotidine (Pepcid) 20 mg BID GT 11/29/19 18:00 02/26/20 17:59 12/04/19 08:39 Folic Acid (Folate) 2 mg DAILY GT 11/30/19 09:00 12/15/19 08:59 12/04/19 08:42 Insulin Aspart (NovoLOG) EVERY 6 HOURS SUBQ 11/29/19 18:00 02/11/20 20:59 12/04/19 06:24 Insulin Detemir (Levemir) 10 units BID SUBQ 12/01/19 09:00 02/21/20 08:59 12/04/19 08:42 Lorazepam (Ativan 2mg/ml 1ml) 2 mg Q3H PRN IV For Anxiety 12/03/19 21:45 12/10/19 21:44 12/03/19 21:50 Metolazone (Zaroxolyn) 2.5 mg DAILY GT 11/30/19 09:00 12/28/19 09:29 12/04/19 08:39 Metoprolol Tartrate (Lopressor) 25 mg Q12HR GT 11/29/19 21:00 02/18/20 09:29 12/04/19 08:42 Vancomycin HCl (Firvanq) 125 mg FOUR TIMES A DAY GT 12/01/19 13:00 12/08/19 12:59 12/04/19 08:42 Assessment/Plan Assessment/Plan IMPRESSION: 1. COVID-19 pneumonia. 2. Diabetes mellitus and hypertension. 3. Lactic acidemia. 4. Epistaxis 5. Respiratory failure; failed extubation 6. S/p trach/PEG DISCUSSION: Careful and close monitoring. Continue medications status post tracheostomy Begin weaning; trach collar S/p PEG no longer on Lasix I will follow carefully Dc planning to sub-acute Lakeisha Zavaleta Omar Syed MD Dec 04, 2019 10:17
--- NOTE | 2019-12-04 10:26 | Nephrology Progress Note ---
Assessment/Plan Problem List: (1) Electrolyte imbalance (2) Diabetes (3) 2019 novel coronavirus disease (COVID-19) (4) Respiratory failure Assessment 1. COVID-19 pneumonia. 2. Diabetes and hyperglycemia 3. Hypertension. 4. Hypoxic respiratory failure 5. Morbid obesity with BMI of 65.5 6. Nasal bleeding 7. Lactic acidosis 8. Hyperkalemia Plan December 03: Renal parameters stable. Continue per consultants. December 02: Remains stable from renal standpoint of view. Electrolyte abnormalities addressed and corrected. December 01: Remains stable from renal standpoint of view. November 30: Lab reviewed. Renal parameters stable. Continue per consultants. November 29: Lab reviewed. Renal parameters stable. Continue per consultants. November 28: Lab reviewed. Phosphorus supplement given. Discussed with RN. Continue to monitor renal parameters. November 27: Lab reviewed. Serum sodium improved. Will start low-dose Zaroxolyn. Change IV Pepcid to GT route. Remains full code. Monitor renal parameters and electrolytes. November 26: Lab reviewed. Serum sodium elevated. 500 cc D5W bolus given. Potassium supplement given. Patient remains full code. Continue per consultants. November 25: Lab reviewed. Patient has trach connected to vent. Patient also has PEG. Continue per consultants. Medication list reviewed. November 24: Lab reviewed. Potassium IV given. Has tracheostomy to vent. Has PEG. Continue per consultants. November 23: Labs reviewed. Creatinine higher to 1.4. Due for trach today. Suggest to stop IV Lasix. November 22: Renal parameters stable. Medication list reviewed. Continue same management per consultants. November 21: Renal parameters stable. On IV Lasix. Edematous. Will order few doses of albumin 25%. Continue per consultants. November 20: Repeat serum potassium again normal. Renal parameters normal. Continue per consultants. November 19: Repeat serum potassium normal. Renal parameters within normal limit. Continue per consultants. November 18: Levemir stopped since IV fluid and dexamethasone are discontinued and patient blood sugar went down. Renal parameters are stable. Continues to be on ventilator. Previously: Renal parameters stable Weaning is being attempted patient's urine output is low. We will give a trial of albumin and Lasix, As needed Discussed with RN Stop IV to D5W 75 cc an hour Levemir 20 units subcu every 12 hours Kayexalate for high potassium as needed Monitor electrolytes and renal parameters Tight blood sugar control, long-acting insulin as needed Keep the blood pressure in check Per orders Subjective ROS Limited/Unobtainable: Yes Objective Objective Last 24 Hour Vital Signs Date Time Temp Pulse Resp B/P (MAP) Pulse Ox O2 Delivery O2 Flow Rate FiO2 12/04/19 08:42 80 118/47 12/04/19 08:00 85 12/04/19 08:00 Mechanical Ventilator Mechanical Ventilator 12/04/19 08:00 40 12/04/19 07:57 98.4 80 21 118/47 (70) 100 12/04/19 07:27 85 19 40 12/04/19 05:02 82 23 40 12/04/19 04:00 Mechanical Ventilator Mechanical Ventilator 12/04/19 04:00 87 12/04/19 04:00 40 12/04/19 04:00 99.7 85 21 121/72 (88) 100 12/04/19 03:30 97 20 40 12/04/19 01:30 95 21 40 12/04/19 00:00 89 12/04/19 00:00 Mechanical Ventilator Mechanical Ventilator 12/04/19 00:00 99.7 91 16 129/65 (86) 100 12/03/19 23:24 92 21 40 12/03/19 21:29 85 22 40 12/03/19 20:43 91 133/75 12/03/19 20:00 40 12/03/19 20:00 Mechanical Ventilator Mechanical Ventilator 12/03/19 20:00 99.7 93 24 133/75 (94) 97 12/03/19 20:00 96 12/03/19 19:30 86 22 40 12/03/19 16:48 84 22 40 12/03/19 16:00 89 12/03/19 16:00 Mechanical Ventilator Mechanical Ventilator 12/03/19 16:00 40 12/03/19 16:00 98.9 83 20 110/62 (78) 100 12/03/19 15:03 85 28 40 12/03/19 12:39 81 22 40 12/03/19 12:00 99.5 81 21 104/51 (68) 100 12/03/19 12:00 40 12/03/19 12:00 80 12/03/19 12:00 Mechanical Ventilator Mechanical Ventilator 12/03/19 10:45 76 19 40 Intake and Output 12/03/19 12/04/19 19:00 07:00 Intake Total 1000 ml 700 ml Output Total 700 ml 450 ml Balance 300 ml 250 ml Free Water 200 ml 150 ml IV Total 200 ml Tube Feeding 600 ml 550 ml Output Urine Total 500 ml 300 ml Stool Total 200 ml 150 ml Laboratory Tests 12/03/19 11:45: POC Whole Blood Glucose 128H 12/03/19 17:01: POC Whole Blood Glucose 132H 12/04/19 00:08: POC Whole Blood Glucose 147H 12/04/19 03:50: White Blood Count 7.9, Red Blood Count 3.47L, Hemoglobin 9.2L, Hematocrit 30.6L , Mean Corpuscular Volume 88, Mean Corpuscular Hemoglobin 26.4L, Mean Corpuscular Hemoglobin Concent 30.0L, Red Cell Distribution Width 19.0H, Platelet Count 354, Mean Platelet Volume 5.8L, Neutrophils (%) (Auto) 80.2H, Lymphocytes (%) (Auto) 10.4L, Monocytes (%) (Auto) 6.9, Eosinophils (%) (Auto) 1.4, Basophils (%) (Auto) 1.1, Sodium Level 145, Potassium Level 3.7, Chloride Level 106, Carbon Dioxide Level 37H, Anion Gap 3L, Blood Urea Nitrogen 17, Creatinine 0.7, Estimat Glomerular Filtration Rate > 60, Glucose Level 135H, Calcium Level 8.2L 12/04/19 05:14: POC Whole Blood Glucose 148H Height (Feet): 5 Height (Inches): 1.00 Weight (Pounds): 293 General Appearance: no apparent distress EENT: other - Trach to vent Cardiovascular: normal rate Respiratory/Chest: decreased breath sounds Abdomen: other - PEG Papa Young MD Dec 04, 2019 10:26
--- NOTE | 2019-12-04 10:33 | Infectious Diseases Prog Note ---
"Assessment/Plan Assessment/Plan antibiotics : vancomycin po 8..20 - A 1. COVID 19 pneumonia s/p remdesivir s/p ivermectin 7.31.20 COVID test negative x 2 2. respiratory failure s/p tracheostomy 3. leucocytosis resolved 4. diabetes mellitus 5. hypertension 6. obesity 7. enterobacter | proteus | staph aureus pneumonia 8. c.diff colitis P 1. continue po vancomycin 6 more days 2. will follow up cultures 3. continue isolation Subjective Respiratory: Denies: shortness of breath, dry cough Gastrointestinal/Abdominal: Reports: diarrhea; Denies: nausea, vomiting Musculoskeletal: Denies: pain Allergies: Coded Allergies: No Known Allergies (Unverified , 11/06/19) Objective Last 24 Hour Vital Signs Date Time Temp Pulse Resp B/P (MAP) Pulse Ox O2 Delivery O2 Flow Rate FiO2 12/04/19 08:42 80 118/47 12/04/19 08:00 85 12/04/19 08:00 Mechanical Ventilator Mechanical Ventilator 12/04/19 08:00 40 12/04/19 07:57 98.4 80 21 118/47 (70) 100 12/04/19 07:27 85 19 40 12/04/19 05:02 82 23 40 12/04/19 04:00 Mechanical Ventilator Mechanical Ventilator 12/04/19 04:00 87 12/04/19 04:00 40 12/04/19 04:00 99.7 85 21 121/72 (88) 100 12/04/19 03:30 97 20 40 12/04/19 01:30 95 21 40 12/04/19 00:00 89 12/04/19 00:00 Mechanical Ventilator Mechanical Ventilator 12/04/19 00:00 99.7 91 16 129/65 (86) 100 12/03/19 23:24 92 21 40 12/03/19 21:29 85 22 40 12/03/19 20:43 91 133/75 12/03/19 20:00 40 12/03/19 20:00 Mechanical Ventilator Mechanical Ventilator 12/03/19 20:00 99.7 93 24 133/75 (94) 97 12/03/19 20:00 96 12/03/19 19:30 86 22 40 12/03/19 16:48 84 22 40 12/03/19 16:00 89 8/13/20 16:00 Mechanical Ventilator Mechanical Ventilator 12/03/19 16:00 40 12/03/19 16:00 98.9 83 20 110/62 (78) 100 12/03/19 15:03 85 28 40 12/03/19 12:39 81 22 40 12/03/19 12:00 99.5 81 21 104/51 (68) 100 12/03/19 12:00 40 12/03/19 12:00 80 12/03/19 12:00 Mechanical Ventilator Mechanical Ventilator 12/03/19 10:45 76 19 40 Height (Feet): 5 Height (Inches): 1.00 Weight (Pounds): 293 HEENT: status post trach Respiratory/Chest: lungs clear Cardiovascular: normal rate, regular rhythm, no gallop/murmur Abdomen: soft, non tender, other - GT Extremities: other - + edema Laboratory Tests Test 12/03/19 11:45 12/03/19 17:01 12/04/19 00:08 12/04/19 03:50 POC Whole Blood Glucose 128 MG/DL (74-106) H 132 MG/DL (74-106) H 147 MG/DL (74-106) H White Blood Count 7.9 K/UL (4.8-10.8) Red Blood Count 3.47 M/UL (4.20-5.40) L Hemoglobin 9.2 G/DL (12.0-16.0) L Hematocrit 30.6 % (37.0-47.0) L Mean Corpuscular Volume 88 FL (80-99) Mean Corpuscular Hemoglobin 26.4 PG (27.0-31.0) L Mean Corpuscular Hemoglobin Concent 30.0 G/DL (32.0-36.0) L Red Cell Distribution Width 19.0 % (11.6-14.8) H Platelet Count 354 K/UL (150-450) Mean Platelet Volume 5.8 FL (6.5-10.1) L Neutrophils (%) (Auto) 80.2 % (45.0-75.0) H Lymphocytes (%) (Auto) 10.4 % (20.0-45.0) L Monocytes (%) (Auto) 6.9 % (1.0-10.0) Eosinophils (%) (Auto) 1.4 % (0.0-3.0) Basophils (%) (Auto) 1.1 % (0.0-2.0) Sodium Level 145 MMOL/L (136-145) Potassium Level 3.7 MMOL/L (3.5-5.1) Chloride Level 106 MMOL/L (98-107) Carbon Dioxide Level 37 MMOL/L (21-32) H Anion Gap 3 mmol/L (5-15) L Blood Urea Nitrogen 17 mg/dL (7-18) Creatinine 0.7 MG/DL (0.55-1.30) Estimat Glomerular Filtration Rate > 60 mL/min (>60) Glucose Level 135 MG/DL (74-106) H Calcium Level 8.2 MG/DL (8.5-10.1) L Test 12/04/19 05:14 POC Whole Blood Glucose 148 MG/DL (74-106) H Current Medications Medications (Trade) Dose Ordered Sig/Robyn Route PRN Reason Start Time Stop Time Status Last Admin Dose Admin Acetaminophen (Tylenol) 650 mg Q4H PRN GT For Pain 11/30/19 17:45 12/30/19 17:44 11/30/19 18:24 Acetaminophen (Tylenol) 650 mg Q6H PRN GT Temp >100.5 11/29/19 15:00 12/12/19 14:59 12/04/19 06:23 Amiodarone HCl (Cordarone) 200 mg DAILY GT 12/04/19 09:00 02/18/20 09:29 12/04/19 08:39 Clonidine HCl (Catapres Tab) 0.1 mg Q4H PRN GT For High Blood Pressure 11/29/19 14:30 02/09/20 14:29 Dextrose (Dextrose 50%) 25 ml Q30M PRN IV Hypoglycemia 11/29/19 14:15 02/21/20 06:44 Dextrose (Dextrose 50%) 50 ml Q30M PRN IV Hypoglycemia 11/29/19 14:15 02/21/20 06:44 Famotidine (Pepcid) 20 mg BID GT 11/29/19 18:00 02/26/20 17:59 12/04/19 08:39 Folic Acid (Folate) 2 mg DAILY GT 11/30/19 09:00 12/15/19 08:59 12/04/19 08:42 Insulin Aspart (NovoLOG) EVERY 6 HOURS SUBQ 11/29/19 18:00 02/11/20 20:59 12/04/19 06:24 Insulin Detemir (Levemir) 10 units BID SUBQ 12/01/19 09:00 02/21/20 08:59 12/04/19 08:42 Lorazepam (Ativan 2mg/ml 1ml) 2 mg Q3H PRN IV For Anxiety 12/03/19 21:45 12/10/19 21:44 12/03/19 21:50 Metolazone (Zaroxolyn) 2.5 mg DAILY GT 11/30/19 09:00 12/28/19 09:29 12/04/19 08:39 Metoprolol Tartrate (Lopressor) 25 mg Q12HR GT 11/29/19 21:00 02/18/20 09:29 12/04/19 08:42 Vancomycin HCl (Firvanq) 125 mg FOUR TIMES A DAY GT 12/01/19 13:00 12/08/19 12:59 12/04/19 08:42 Rosette Bowman MD Dec 04, 2019 10:33"
[2019-12-04 12:00] VITALS: BP 111/60
--- NOTE | 2019-12-04 13:58 | Surgery Progress Note ---
Surgery Progress Note Subjective Procedure Performed tracheostomy Additional Comments more comfortable trach stable volumes okay peek pressures noted Objective Last 24 Hour Vital Signs Date Time Temp Pulse Resp B/P (MAP) Pulse Ox O2 Delivery O2 Flow Rate FiO2 12/04/19 13:24 78 18 40 12/04/19 12:00 98.8 85 21 111/60 (77) 100 12/04/19 12:00 84 12/04/19 12:00 40 12/04/19 12:00 Mechanical Ventilator Mechanical Ventilator 12/04/19 11:29 92 23 40 12/04/19 09:29 84 22 40 12/04/19 08:42 80 118/47 12/04/19 08:00 85 12/04/19 08:00 Mechanical Ventilator Mechanical Ventilator 12/04/19 08:00 40 12/04/19 07:57 98.4 80 21 118/47 (70) 100 12/04/19 07:27 85 19 40 12/04/19 05:02 82 23 40 12/04/19 04:00 Mechanical Ventilator Mechanical Ventilator 12/04/19 04:00 87 12/04/19 04:00 40 12/04/19 04:00 99.7 85 21 121/72 (88) 100 12/04/19 03:30 97 20 40 12/04/19 01:30 95 21 40 12/04/19 00:00 89 12/04/19 00:00 Mechanical Ventilator Mechanical Ventilator 12/04/19 00:00 99.7 91 16 129/65 (86) 100 12/03/19 23:24 92 21 40 12/03/19 21:29 85 22 40 12/03/19 20:43 91 133/75 12/03/19 20:00 40 12/03/19 20:00 Mechanical Ventilator Mechanical Ventilator 12/03/19 20:00 99.7 93 24 133/75 (94) 97 12/03/19 20:00 96 12/03/19 19:30 86 22 40 12/03/19 16:48 84 22 40 12/03/19 16:00 89 12/03/19 16:00 Mechanical Ventilator Mechanical Ventilator 12/03/19 16:00 40 12/03/19 16:00 98.9 83 20 110/62 (78) 100 12/03/19 15:03 85 28 40 I&O Intake and Output 12/03/19 12/04/19 19:00 07:00 Intake Total 1000 ml 700 ml Output Total 700 ml 450 ml Balance 300 ml 250 ml Free Water 200 ml 150 ml IV Total 200 ml Tube Feeding 600 ml 550 ml Output Urine Total 500 ml 300 ml Stool Total 200 ml 150 ml Dressing: dry Cardiovascular: RSR Respiratory: decreased breath sounds Abdomen: soft, non-tender, present bowel sounds Extremities: edema, no tenderness, no cyanosis Laboratory Tests Test 12/03/19 17:01 12/04/19 00:08 12/04/19 03:50 12/04/19 05:14 POC Whole Blood Glucose 132 MG/DL (74-106) H 147 MG/DL (74-106) H 148 MG/DL (74-106) H White Blood Count 7.9 K/UL (4.8-10.8) Red Blood Count 3.47 M/UL (4.20-5.40) L Hemoglobin 9.2 G/DL (12.0-16.0) L Hematocrit 30.6 % (37.0-47.0) L Mean Corpuscular Volume 88 FL (80-99) Mean Corpuscular Hemoglobin 26.4 PG (27.0-31.0) L Mean Corpuscular Hemoglobin Concent 30.0 G/DL (32.0-36.0) L Red Cell Distribution Width 19.0 % (11.6-14.8) H Platelet Count 354 K/UL (150-450) Mean Platelet Volume 5.8 FL (6.5-10.1) L Neutrophils (%) (Auto) 80.2 % (45.0-75.0) H Lymphocytes (%) (Auto) 10.4 % (20.0-45.0) L Monocytes (%) (Auto) 6.9 % (1.0-10.0) Eosinophils (%) (Auto) 1.4 % (0.0-3.0) Basophils (%) (Auto) 1.1 % (0.0-2.0) Sodium Level 145 MMOL/L (136-145) Potassium Level 3.7 MMOL/L (3.5-5.1) Chloride Level 106 MMOL/L (98-107) Carbon Dioxide Level 37 MMOL/L (21-32) H Anion Gap 3 mmol/L (5-15) L Blood Urea Nitrogen 17 mg/dL (7-18) Creatinine 0.7 MG/DL (0.55-1.30) Estimat Glomerular Filtration Rate > 60 mL/min (>60) Glucose Level 135 MG/DL (74-106) H Calcium Level 8.2 MG/DL (8.5-10.1) L Test 12/04/19 12:06 POC Whole Blood Glucose 153 MG/DL (74-106) H Plan Problems: (1) Weak (2) UTI (urinary tract infection) (3) Hypoxia (4) Epistaxis Assessment & Plan: Severe after taxis left nostril Rhino Rocket placed hemostasis noted over the course 24 hours hemoglobin stable Lovenox been stopped. The balloon of both ports of the Rhino Rocket were deflated today. The rocket itself was not removed and will monitor over the course next 24 hours hemostasis. If so will gently remove and plan for local monitoring. Currently wean ventilator as tolerated. Goals of extubation when possible. deflated balloon 11/08 removed trumpet 11/09 will monitor for bleeding wean vent plan extubation discussed with pulm (5) Fluid overload Assessment & Plan: Continue central venous catheter for now. Will anticipate removal once patient stable for extubation. Thank you for allowing me to participate patient's care picc in line out (6) Diabetes (7) CHF (congestive heart failure) (8) Afib (9) Multifocal pneumonia (10) 2019 novel coronavirus disease (COVID-19) Assessment & Plan: + wean vent extubated failed reintubated consider trach plan trach 8/4 s/p trach comfortable (11) Respiratory failure Assessment & Plan: trach dislodged 11/29 with air leak evaluated at bedside and repositioned. improved now will monitor stable monitoring Ortiz Fleming Dec 04, 2019 13:58
[2019-12-04 15:59] VITALS: BP 128/71
[2019-12-04] MEDS: LORazepam Inj 2mg/ml 1ml IV PRN (17:50)
[2019-12-04 20:00] VITALS: BP 121/68
[2019-12-05] VITALS (7 sets, daily range): BP systolic 95–131; BP diastolic 53–81
[2019-12-05] MEDS: Acetaminophen 650mg/20.3ml GT PRN (00:06)
[2019-12-05] MEDS: LORazepam Inj 2mg/ml 1ml IV PRN (00:06)
[2019-12-05] MEDS: NovoLOG Insulin Flexpen SUBQ SCH ×4 (00:08→17:44)
[2019-12-05 04:32] LABS: ANION GAP 4 mmol/L (5-15); BLOOD UREA NITROGEN 17 mg/dL (7-18); CALCIUM 8.3 MG/DL (8.5-10.1); CARBON DIOXIDE 36 MMOL/L (21-32); CHLORIDE 105 MMOL/L (98-107); CREATININE 0.7 MG/DL (0.55-1.30); POTASSIUM 3.9 MMOL/L (3.5-5.1); SODIUM 145 MMOL/L (136-145)
[2019-12-05 04:36] LABS: BASOPHILS % (AUTO) 0.9 % (0.0-2.0); EOSINOPHILS % (AUTO) 1.7 % (0.0-3.0); LYMPHOCYTES % (AUTO) 12.2 % (20.0-45.0); MEAN CORPUSCULAR VOLUME 89 FL (80-99); MONOCYTES % (AUTO) 5.4 % (1.0-10.0); NEUTROPHILS % (AUTO) 79.9 % (45.0-75.0); PLATELET COUNT 344 K/UL (150-450); RED BLOOD COUNT 3.38 M/UL (4.20-5.40); RED CELL DISTRIBUTION WIDTH 19.2 % (11.6-14.8); WHITE BLOOD COUNT 8.3 K/UL (4.8-10.8)
--- NOTE | 2019-12-05 08:13 | Hematology/Onc Progress Note ---
Assessment/Plan Assessment/Plan # Anemia of chronic disease due to underlying chronic medical issues, multifactorial v Gi bleed in this case likely related covid19+++++++++ --> Anemia workup has been ordered, rule out gi bleed --> No evidence of hemolysis is noted, peripheral smear has been reviewed. --> Hgb goal >7. Transfuse prn. --> Epogen or iron at this time is not particularly indicated --> Medications have been reviewed --> low threshold for gi evaluation in case has occult + --> hgb 10-->9.8-->9.2-->9.7-->10.7->10->11->10.2->10.6->9.4->10.8->9.8-->10->10 -->9.2->9 # Leukocytosis/elevated white blood cell count, unspecified likely related to covid19 --> have reviewed peripheral smear and bandemia/neutrophilia noted --> continue antibiotics if they have been started by ID team zosyn --> on remdesivir, dexamathasone --> monitor for resolution --> wbc 12->11-->11-->13->16-->21-->17-->14-->14->13-->11 # COVID 19 pneumonia --> on vent --> respiratory failure --> s/p vent reintubation 11/08 --> 11/23 trach was done # Diabetes mellitus --> iss and bs goal <140 # Dysphagia --> peg 11/24 # Hypertension --> sbp goal <150 # Dvt ppx scds Appreciate consultation and jimena RN Subjective HEENT: Denies: no symptoms, eye pain, blurred vision, tearing, double vision, ear pain, ear discharge, nose pain, nose congestion, throat pain, throat swelling, mouth pain, mouth swelling, other Cardiovascular: Denies: no symptoms, chest pain, edema, irregular heart rate, lightheadedness, palpitations, syncope, other Respiratory: Denies: no symptoms, cough, shortness of breath, SOB with excertion, SOB at rest, sputum, wheezing, other Gastrointestinal/Abdominal: Denies: no symptoms, abdomen distended, abdominal pain, black stools, tarry stools, blood in stool, constipated, diarrhea, difficulty swallowing, nausea, poor appetite, poor fluid intake, rectal bleeding , vomiting, other Genitourinary: Denies: no symptoms, burning, discharge, frequency, flank pain, hematuria, incontinence, pain, urgency, other Neurologic/Psychiatric: Denies: no symptoms, anxiety, depressed, emotional problems, headache, numbness, paresthesia, pre-existing deficit, seizure, tingling, tremors, weakness, other Endocrine: Denies: no symptoms, excessive sweating, flushing, intolerance to cold, intolerance to heat, increased hunger, increased thirst, increased urine, unexplained weight gain, unexplained weight loss, other Hematologic/Lymphatic: Denies: no symptoms, anemia, easy bleeding, easy bruising, adenopathy, other Allergies: Coded Allergies: No Known Allergies (Unverified , 11/06/19) Subjective 11/09 weaning prn, meds reviewed, labs noted, hgb 9.2 11/10 on vent, no bleeding, hgb remains low, jimena Rn Jose R in am 11/11 on vent, fluids, ogf tube as well, labs pending in am 11/12 remains altered, no bleeding, labs reviewed, cbc noted 11/13 attempted weaning, but did not do well, no bleeding, hgb 10 11/14 intubated, weaning, on vent, with og, labs noted, abx 11/15 labs noted, no bleedign, weaning protocol, no night sweats, elev wbc, with fevers 11/16 no bleeding, jimena Broussard rn in the am, on vent, weaning but failed 11/17 meds reviewed, no night sweats, jimena rn, no bleeding 11/18 extubated, on nc at this time, no bleeding, meds reviewed 11/19 labs noted, no bleeding, on vent again, weaning 11/21 labs reviewed, hgb 9.4, no hemolysis, very difficult to obtain repeat lab draw in am 11/22 unable to wean vent, labs noted, plan for trach tomorrow, on fentanyl, still edematous 11/23 is for trach today and peg tomorrow, stil edematous, on lasix gtt 11/24 meds noted, no bleeding, on vent, for peg this am, trach functional 11/25 labs reviewed, no bleeding, meds noted, obtunded, hr better 11/26 picc line continues to leak, no bleeding, labs noted, low grade fever, id aware 12/03 remains altered, labs noted, no bleeding, hgb remains low, tmax 99.7f 12/04 no bleeding, left foot swollen, for duplex lower ext r/o dvt Objective Objective Current Medications Medications (Trade) Dose Ordered Sig/Robyn Route PRN Reason Start Time Stop Time Status Last Admin Dose Admin Acetaminophen (Tylenol) 650 mg Q4H PRN GT For Pain 11/30/19 17:45 12/30/19 17:44 11/30/19 18:24 Acetaminophen (Tylenol) 650 mg Q6H PRN GT Temp >100.5 11/29/19 15:00 12/12/19 14:59 12/05/19 00:06 Amiodarone HCl (Cordarone) 200 mg DAILY GT 12/04/19 09:00 02/18/20 09:29 12/04/19 08:39 Clonidine HCl (Catapres Tab) 0.1 mg Q4H PRN GT For High Blood Pressure 11/29/19 14:30 02/09/20 14:29 Dextrose (Dextrose 50%) 25 ml Q30M PRN IV Hypoglycemia 11/29/19 14:15 02/21/20 06:44 Dextrose (Dextrose 50%) 50 ml Q30M PRN IV Hypoglycemia 11/29/19 14:15 02/21/20 06:44 Famotidine (Pepcid) 20 mg BID GT 11/29/19 18:00 02/26/20 17:59 12/04/19 17:18 Folic Acid (Folate) 2 mg DAILY GT 11/30/19 09:00 12/15/19 08:59 12/04/19 08:42 Insulin Aspart (NovoLOG) EVERY 6 HOURS SUBQ 11/29/19 18:00 02/11/20 20:59 12/05/19 05:23 Insulin Detemir (Levemir) 10 units BID SUBQ 12/01/19 09:00 02/21/20 08:59 12/04/19 17:12 Lorazepam (Ativan 2mg/ml 1ml) 2 mg Q3H PRN IV For Anxiety 12/03/19 21:45 12/10/19 21:44 12/05/19 00:06 Metolazone (Zaroxolyn) 2.5 mg DAILY GT 11/30/19 09:00 12/28/19 09:29 12/04/19 08:39 Metoprolol Tartrate (Lopressor) 25 mg Q12HR GT 11/29/19 21:00 02/18/20 09:29 12/04/19 20:08 Vancomycin HCl (Firvanq) 125 mg FOUR TIMES A DAY GT 12/01/19 13:00 12/10/19 23:59 12/04/19 20:07 Last 24 Hour Vital Signs Date Time Temp Pulse Resp B/P (MAP) Pulse Ox O2 Delivery O2 Flow Rate FiO2 12/05/19 05:08 87 26 40 12/05/19 04:00 99.0 90 22 126/58 (80) 99 12/05/19 04:00 40 12/05/19 04:00 Mechanical Ventilator Mechanical Ventilator 12/05/19 03:57 81 12/05/19 03:07 72 22 40 12/05/19 01:14 85 22 40 12/05/19 00:00 40 12/05/19 00:00 Mechanical Ventilator Mechanical Ventilator 12/05/19 00:00 86 12/05/19 00:00 99.5 95 22 130/75 (93) 98 12/04/19 23:30 91 24 40 12/04/19 21:16 79 26 40 12/04/19 20:08 85 125/72 12/04/19 20:00 40 12/04/19 20:00 96 12/04/19 20:00 99.0 83 24 121/68 (85) 100 12/04/19 20:00 Mechanical Ventilator Mechanical Ventilator 12/04/19 19:10 83 22 40 12/04/19 16:55 88 27 40 12/04/19 16:00 96 12/04/19 15:59 97.5 85 21 128/71 (90) 99 12/04/19 15:59 40 12/04/19 15:58 Mechanical Ventilator Mechanical Ventilator 12/04/19 15:21 82 23 40 12/04/19 13:24 78 18 40 12/04/19 12:00 98.8 85 21 111/60 (77) 100 12/04/19 12:00 84 12/04/19 12:00 40 12/04/19 12:00 Mechanical Ventilator Mechanical Ventilator 12/04/19 11:29 92 23 40 12/04/19 09:29 84 22 40 12/04/19 08:42 80 118/47 12/04/19 08:00 85 12/04/19 08:00 Mechanical Ventilator Mechanical Ventilator 12/04/19 08:00 40 12/04/19 07:57 98.4 80 21 118/47 (70) 100 12/04/19 07:27 85 19 40 12/04/19 05:02 82 23 40 12/04/19 04:00 Mechanical Ventilator Mechanical Ventilator 12/04/19 04:00 87 12/04/19 04:00 40 12/04/19 04:00 99.7 85 21 121/72 (88) 100 12/04/19 03:30 97 20 40 12/04/19 01:30 95 21 40 12/04/19 00:00 89 12/04/19 00:00 Mechanical Ventilator Mechanical Ventilator 12/04/19 00:00 99.7 91 16 129/65 (86) 100 12/03/19 23:24 92 21 40 12/03/19 21:29 85 22 40 12/03/19 20:43 91 133/75 12/03/19 20:00 40 12/03/19 20:00 Mechanical Ventilator Mechanical Ventilator 12/03/19 20:00 99.7 93 24 133/75 (94) 97 12/03/19 20:00 96 12/03/19 19:30 86 22 40 12/03/19 16:48 84 22 40 12/03/19 16:00 89 12/03/19 16:00 Mechanical Ventilator Mechanical Ventilator 12/03/19 16:00 40 12/03/19 16:00 98.9 83 20 110/62 (78) 100 12/03/19 15:03 85 28 40 12/03/19 12:39 81 22 40 12/03/19 12:00 99.5 81 21 104/51 (68) 100 12/03/19 12:00 40 12/03/19 12:00 80 12/03/19 12:00 Mechanical Ventilator Mechanical Ventilator 12/03/19 10:45 76 19 40 12/03/19 09:05 85 20 40 12/03/19 09:04 100 12/03/19 08:21 77 117/53 Intake and Output 12/04/19 12/05/19 19:00 07:00 Intake Total 750 ml 610 ml Output Total 900 ml 1100 ml Balance -150 ml -490 ml Free Water 150 ml 60 ml Tube Feeding 600 ml 550 ml Output Urine Total 600 ml 600 ml Stool Total 300 ml 500 ml Labs Test 12/02/19 08:16 12/02/19 11:54 12/02/19 16:59 12/02/19 18:10 POC Whole Blood Glucose 180 MG/DL (74-106) 193 MG/DL (74-106) 131 MG/DL (74-106) Stool Occult Blood Negative (NEGATIVE) Test 12/03/19 01:09 12/03/19 03:55 12/03/19 05:37 12/03/19 11:45 POC Whole Blood Glucose 127 MG/DL (74-106) 124 MG/DL (74-106) 128 MG/DL (74-106) White Blood Count 10.0 K/UL (4.8-10.8) Red Blood Count 3.41 M/UL (4.20-5.40) Hemoglobin 9.2 G/DL (12.0-16.0) Hematocrit 30.6 % (37.0-47.0) Mean Corpuscular Volume 90 FL (80-99) Mean Corpuscular Hemoglobin 26.9 PG (27.0-31.0) Mean Corpuscular Hemoglobin Concent 29.9 G/DL (32.0-36.0) Red Cell Distribution Width 19.8 % (11.6-14.8) Platelet Count 337 K/UL (150-450) Mean Platelet Volume 6.7 FL (6.5-10.1) Neutrophils (%) (Auto) 81.7 % (45.0-75.0) Lymphocytes (%) (Auto) 9.8 % (20.0-45.0) Monocytes (%) (Auto) 5.5 % (1.0-10.0) Eosinophils (%) (Auto) 2.3 % (0.0-3.0) Basophils (%) (Auto) 0.7 % (0.0-2.0) Sodium Level 146 MMOL/L (136-145) Potassium Level 3.4 MMOL/L (3.5-5.1) Chloride Level 108 MMOL/L (98-107) Carbon Dioxide Level 37 MMOL/L (21-32) Anion Gap 1 mmol/L (5-15) Blood Urea Nitrogen 17 mg/dL (7-18) Creatinine 0.6 MG/DL (0.55-1.30) Estimat Glomerular Filtration Rate > 60 mL/min (>60) Glucose Level 129 MG/DL (74-106) Calcium Level 8.4 MG/DL (8.5-10.1) Phosphorus Level 2.7 MG/DL (2.5-4.9) Magnesium Level 2.0 MG/DL (1.8-2.4) Total Bilirubin 0.5 MG/DL (0.2-1.0) Aspartate Amino Transf (AST/SGOT) 40 U/L (15-37) Alanine Aminotransferase (ALT/SGPT) 32 U/L (12-78) Alkaline Phosphatase 169 U/L (46-116) Total Protein 6.0 G/DL (6.4-8.2) Albumin 1.7 G/DL (3.4-5.0) Globulin 4.3 g/dL Albumin/Globulin Ratio 0.4 (1.0-2.7) Test 12/03/19 17:01 12/04/19 00:08 12/04/19 03:50 12/04/19 05:14 POC Whole Blood Glucose 132 MG/DL (74-106) 147 MG/DL (74-106) 148 MG/DL (74-106) White Blood Count 7.9 K/UL (4.8-10.8) Red Blood Count 3.47 M/UL (4.20-5.40) Hemoglobin 9.2 G/DL (12.0-16.0) Hematocrit 30.6 % (37.0-47.0) Mean Corpuscular Volume 88 FL (80-99) Mean Corpuscular Hemoglobin 26.4 PG (27.0-31.0) Mean Corpuscular Hemoglobin Concent 30.0 G/DL (32.0-36.0) Red Cell Distribution Width 19.0 % (11.6-14.8) Platelet Count 354 K/UL (150-450) Mean Platelet Volume 5.8 FL (6.5-10.1) Neutrophils (%) (Auto) 80.2 % (45.0-75.0) Lymphocytes (%) (Auto) 10.4 % (20.0-45.0) Monocytes (%) (Auto) 6.9 % (1.0-10.0) Eosinophils (%) (Auto) 1.4 % (0.0-3.0) Basophils (%) (Auto) 1.1 % (0.0-2.0) Sodium Level 145 MMOL/L (136-145) Potassium Level 3.7 MMOL/L (3.5-5.1) Chloride Level 106 MMOL/L (98-107) Carbon Dioxide Level 37 MMOL/L (21-32) Anion Gap 3 mmol/L (5-15) Blood Urea Nitrogen 17 mg/dL (7-18) Creatinine 0.7 MG/DL (0.55-1.30) Estimat Glomerular Filtration Rate > 60 mL/min (>60) Glucose Level 135 MG/DL (74-106) Calcium Level 8.2 MG/DL (8.5-10.1) Test 12/04/19 12:06 12/04/19 16:26 12/05/19 00:05 12/05/19 03:20 POC Whole Blood Glucose 153 MG/DL (74-106) 158 MG/DL (74-106) 146 MG/DL (74-106) White Blood Count 8.3 K/UL (4.8-10.8) Red Blood Count 3.38 M/UL (4.20-5.40) Hemoglobin 9.0 G/DL (12.0-16.0) Hematocrit 30.0 % (37.0-47.0) Mean Corpuscular Volume 89 FL (80-99) Mean Corpuscular Hemoglobin 26.6 PG (27.0-31.0) Mean Corpuscular Hemoglobin Concent 30.0 G/DL (32.0-36.0) Red Cell Distribution Width 19.2 % (11.6-14.8) Platelet Count 344 K/UL (150-450) Mean Platelet Volume 5.9 FL (6.5-10.1) Neutrophils (%) (Auto) 79.9 % (45.0-75.0) Lymphocytes (%) (Auto) 12.2 % (20.0-45.0) Monocytes (%) (Auto) 5.4 % (1.0-10.0) Eosinophils (%) (Auto) 1.7 % (0.0-3.0) Basophils (%) (Auto) 0.9 % (0.0-2.0) Sodium Level 145 MMOL/L (136-145) Potassium Level 3.9 MMOL/L (3.5-5.1) Chloride Level 105 MMOL/L (98-107) Carbon Dioxide Level 36 MMOL/L (21-32) Anion Gap 4 mmol/L (5-15) Blood Urea Nitrogen 17 mg/dL (7-18) Creatinine 0.7 MG/DL (0.55-1.30) Estimat Glomerular Filtration Rate > 60 mL/min (>60) Glucose Level 143 MG/DL (74-106) Calcium Level 8.3 MG/DL (8.5-10.1) Test 12/05/19 05:18 Height (Feet): 5 Height (Inches): 1.00 Weight (Pounds): 309 Objective Physical Exam: Vitals: reviewed General: NAD HEENT: nc, at Neck: supple Chest: clear breath sounds on vent++trach+ Cardiovascular: RRR, no s3, s4 Abdomen: soft, nontender, nd++peg Extremities: no cce, normal range of motion, left foot swelling+ Neuro: alert and oriented Ismael Fischer MD Dec 05, 2019 08:13
[2019-12-05] MEDS: Vancomycin oral 125mg/2.5ml GT SCH ×4 (09:05→20:54)
[2019-12-05] MEDS: metOLazone 2.5 MG TAB GT SCH (09:05)
[2019-12-05] MEDS: Amiodarone 200mg tab GT SCH (09:05)
[2019-12-05] MEDS: Levemir Flexpen SUBQ SCH ×3 (09:09→17:44)
--- NOTE | 2019-12-05 11:01 | Infectious Diseases Prog Note ---
"Assessment/Plan Assessment/Plan antibiotics : vancomycin po 8.11.20 - A 1. COVID 19 pneumonia s/p remdesivir s/p ivermectin 7.31.20 COVID test negative x 2 2. respiratory failure s/p tracheostomy 3. leucocytosis resolved 4. diabetes mellitus 5. hypertension 6. obesity 7. enterobacter | proteus | staph aureus pneumonia 8. c.diff colitis P 1. continue po vancomycin 5 more days 2. will follow up cultures 3. continue isolation Subjective ROS Limited/Unobtainable: Yes Allergies: Coded Allergies: No Known Allergies (Unverified , 11/06/19) Objective Last 24 Hour Vital Signs Date Time Temp Pulse Resp B/P (MAP) Pulse Ox O2 Delivery O2 Flow Rate FiO2 12/05/19 09:16 89 23 40 12/05/19 09:07 87 121/76 12/05/19 08:00 99.9 88 22 121/76 (91) 100 12/05/19 08:00 Mechanical Ventilator Mechanical Ventilator 12/05/19 08:00 40 12/05/19 07:41 77 24 40 12/05/19 07:40 76 12/05/19 05:08 87 26 40 12/05/19 04:00 99.0 90 22 126/58 (80) 99 12/05/19 04:00 40 12/05/19 04:00 Mechanical Ventilator Mechanical Ventilator 12/05/19 03:57 81 12/05/19 03:07 72 22 40 12/05/19 01:14 85 22 40 12/05/19 00:00 40 12/05/19 00:00 Mechanical Ventilator Mechanical Ventilator 12/05/19 00:00 86 12/05/19 00:00 99.5 95 22 130/75 (93) 98 12/04/19 23:30 91 24 40 12/04/19 21:16 79 26 40 12/04/19 20:08 85 125/72 12/04/19 20:00 40 12/04/19 20:00 96 12/04/19 20:00 99.0 83 24 121/68 (85) 100 12/04/19 20:00 Mechanical Ventilator Mechanical Ventilator 12/04/19 19:10 83 22 40 12/04/19 16:55 88 27 40 12/04/19 16:00 96 12/04/19 15:59 97.5 85 21 128/71 (90) 99 12/04/19 15:59 40 12/04/19 15:58 Mechanical Ventilator Mechanical Ventilator 12/04/19 15:21 82 23 40 12/04/19 13:24 78 18 40 12/04/19 12:00 98.8 85 21 111/60 (77) 100 12/04/19 12:00 84 12/04/19 12:00 40 12/04/19 12:00 Mechanical Ventilator Mechanical Ventilator 12/04/19 11:29 92 23 40 Height (Feet): 5 Height (Inches): 1.00 Weight (Pounds): 309 HEENT: status post trach Respiratory/Chest: lungs clear Cardiovascular: normal rate, regular rhythm, no gallop/murmur Abdomen: soft, non tender, other - GT Extremities: other - + edema Laboratory Tests Test 12/04/19 12:06 12/04/19 16:26 12/05/19 00:05 12/05/19 03:20 POC Whole Blood Glucose 153 MG/DL (74-106) H 158 MG/DL (74-106) H 146 MG/DL (74-106) H White Blood Count 8.3 K/UL (4.8-10.8) Red Blood Count 3.38 M/UL (4.20-5.40) L Hemoglobin 9.0 G/DL (12.0-16.0) L Hematocrit 30.0 % (37.0-47.0) L Mean Corpuscular Volume 89 FL (80-99) Mean Corpuscular Hemoglobin 26.6 PG (27.0-31.0) L Mean Corpuscular Hemoglobin Concent 30.0 G/DL (32.0-36.0) L Red Cell Distribution Width 19.2 % (11.6-14.8) H Platelet Count 344 K/UL (150-450) Mean Platelet Volume 5.9 FL (6.5-10.1) L Neutrophils (%) (Auto) 79.9 % (45.0-75.0) H Lymphocytes (%) (Auto) 12.2 % (20.0-45.0) L Monocytes (%) (Auto) 5.4 % (1.0-10.0) Eosinophils (%) (Auto) 1.7 % (0.0-3.0) Basophils (%) (Auto) 0.9 % (0.0-2.0) Sodium Level 145 MMOL/L (136-145) Potassium Level 3.9 MMOL/L (3.5-5.1) Chloride Level 105 MMOL/L (98-107) Carbon Dioxide Level 36 MMOL/L (21-32) H Anion Gap 4 mmol/L (5-15) L Blood Urea Nitrogen 17 mg/dL (7-18) Creatinine 0.7 MG/DL (0.55-1.30) Estimat Glomerular Filtration Rate > 60 mL/min (>60) Glucose Level 143 MG/DL (74-106) H Calcium Level 8.3 MG/DL (8.5-10.1) L Test 12/05/19 05:18 12/05/19 08:51 POC Whole Blood Glucose Pending 125 MG/DL (74-106) H Current Medications Medications (Trade) Dose Ordered Sig/Robyn Route PRN Reason Start Time Stop Time Status Last Admin Dose Admin Acetaminophen (Tylenol) 650 mg Q4H PRN GT For Pain 11/30/19 17:45 12/30/19 17:44 11/30/19 18:24 Acetaminophen (Tylenol) 650 mg Q6H PRN GT Temp >100.5 11/29/19 15:00 12/12/19 14:59 12/05/19 00:06 Amiodarone HCl (Cordarone) 200 mg DAILY GT 12/04/19 09:00 02/18/20 09:29 12/05/19 09:05 Clonidine HCl (Catapres Tab) 0.1 mg Q4H PRN GT For High Blood Pressure 11/29/19 14:30 02/09/20 14:29 Dextrose (Dextrose 50%) 25 ml Q30M PRN IV Hypoglycemia 11/29/19 14:15 02/21/20 06:44 Dextrose (Dextrose 50%) 50 ml Q30M PRN IV Hypoglycemia 11/29/19 14:15 02/21/20 06:44 Famotidine (Pepcid) 20 mg BID GT 11/29/19 18:00 02/26/20 17:59 12/05/19 09:05 Folic Acid (Folate) 2 mg DAILY GT 11/30/19 09:00 12/15/19 08:59 12/05/19 09:07 Insulin Aspart (NovoLOG) EVERY 6 HOURS SUBQ 11/29/19 18:00 02/11/20 20:59 12/05/19 05:23 Insulin Detemir (Levemir) 10 units BID SUBQ 12/01/19 09:00 02/21/20 08:59 12/05/19 09:09 Lorazepam (Ativan 2mg/ml 1ml) 2 mg Q3H PRN IV For Anxiety 12/03/19 21:45 12/10/19 21:44 12/05/19 00:06 Metolazone (Zaroxolyn) 2.5 mg DAILY GT 11/30/19 09:00 12/28/19 09:29 12/05/19 09:05 Metoprolol Tartrate (Lopressor) 25 mg Q12HR GT 11/29/19 21:00 02/18/20 09:29 12/05/19 09:07 Vancomycin HCl (Firvanq) 125 mg FOUR TIMES A DAY GT 12/01/19 13:00 12/10/19 23:59 12/05/19 09:05 Rosette Bowman MD Dec 05, 2019 11:01"
--- NOTE | 2019-12-05 12:23 | Nephrology Progress Note ---
Assessment/Plan Problem List: (1) Electrolyte imbalance (2) Diabetes (3) 2019 novel coronavirus disease (COVID-19) (4) Respiratory failure Assessment 1. COVID-19 pneumonia. 2. Diabetes and hyperglycemia 3. Hypertension. 4. Hypoxic respiratory failure 5. Morbid obesity with BMI of 65.5 6. Nasal bleeding 7. Lactic acidosis 8. Hyperkalemia Plan December 04: Stable renal parameters. Continue per consultants. December 03: Renal parameters stable. Continue per consultants. December 02: Remains stable from renal standpoint of view. Electrolyte abnormalities addressed and corrected. December 01: Remains stable from renal standpoint of view. November 30: Lab reviewed. Renal parameters stable. Continue per consultants. November 29: Lab reviewed. Renal parameters stable. Continue per consultants. November 28: Lab reviewed. Phosphorus supplement given. Discussed with RN. Continue to monitor renal parameters. November 27: Lab reviewed. Serum sodium improved. Will start low-dose Zaroxolyn. Change IV Pepcid to GT route. Remains full code. Monitor renal parameters and electrolytes. November 26: Lab reviewed. Serum sodium elevated. 500 cc D5W bolus given. Potassium supplement given. Patient remains full code. Continue per consultants. November 25: Lab reviewed. Patient has trach connected to vent. Patient also has PEG. Continue per consultants. Medication list reviewed. November 24: Lab reviewed. Potassium IV given. Has tracheostomy to vent. Has PEG. Continue per consultants. November 23: Labs reviewed. Creatinine higher to 1.4. Due for trach today. Suggest to stop IV Lasix. November 22: Renal parameters stable. Medication list reviewed. Continue same management per consultants. November 21: Renal parameters stable. On IV Lasix. Edematous. Will order few doses of albumin 25%. Continue per consultants. November 20: Repeat serum potassium again normal. Renal parameters normal. Continue per consultants. November 19: Repeat serum potassium normal. Renal parameters within normal limit. Continue per consultants. November 18: Levemir stopped since IV fluid and dexamethasone are discontinued and patient blood sugar went down. Renal parameters are stable. Continues to be on ventilator. Previously: Renal parameters stable Weaning is being attempted patient's urine output is low. We will give a trial of albumin and Lasix, As needed Discussed with RN Stop IV to D5W 75 cc an hour Levemir 20 units subcu every 12 hours Kayexalate for high potassium as needed Monitor electrolytes and renal parameters Tight blood sugar control, long-acting insulin as needed Keep the blood pressure in check Per orders Subjective ROS Limited/Unobtainable: Yes Objective Objective Last 24 Hour Vital Signs Date Time Temp Pulse Resp B/P (MAP) Pulse Ox O2 Delivery O2 Flow Rate FiO2 12/05/19 09:16 89 23 40 12/05/19 09:07 87 121/76 12/05/19 08:00 99.9 88 22 121/76 (91) 100 12/05/19 08:00 Mechanical Ventilator Mechanical Ventilator 12/05/19 08:00 40 12/05/19 07:41 77 24 40 12/05/19 07:40 76 12/05/19 05:08 87 26 40 12/05/19 04:00 99.0 90 22 126/58 (80) 99 12/05/19 04:00 40 12/05/19 04:00 Mechanical Ventilator Mechanical Ventilator 12/05/19 03:57 81 12/05/19 03:07 72 22 40 12/05/19 01:14 85 22 40 12/05/19 00:00 40 12/05/19 00:00 Mechanical Ventilator Mechanical Ventilator 12/05/19 00:00 86 12/05/19 00:00 99.5 95 22 130/75 (93) 98 12/04/19 23:30 91 24 40 12/04/19 21:16 79 26 40 12/04/19 20:08 85 125/72 12/04/19 20:00 40 12/04/19 20:00 96 12/04/19 20:00 99.0 83 24 121/68 (85) 100 12/04/19 20:00 Mechanical Ventilator Mechanical Ventilator 12/04/19 19:10 83 22 40 12/04/19 16:55 88 27 40 12/04/19 16:00 96 12/04/19 15:59 97.5 85 21 128/71 (90) 99 12/04/19 15:59 40 12/04/19 15:58 Mechanical Ventilator Mechanical Ventilator 12/04/19 15:21 82 23 40 12/04/19 13:24 78 18 40 Intake and Output 12/04/19 12/05/19 19:00 07:00 Intake Total 750 ml 610 ml Output Total 900 ml 1100 ml Balance -150 ml -490 ml Free Water 150 ml 60 ml Tube Feeding 600 ml 550 ml Output Urine Total 600 ml 600 ml Stool Total 300 ml 500 ml Laboratory Tests 12/04/19 16:26: POC Whole Blood Glucose 158H 12/05/19 00:05: POC Whole Blood Glucose 146H 12/05/19 03:20: White Blood Count 8.3, Red Blood Count 3.38L, Hemoglobin 9.0L, Hematocrit 30.0L , Mean Corpuscular Volume 89, Mean Corpuscular Hemoglobin 26.6L, Mean Corpuscular Hemoglobin Concent 30.0L, Red Cell Distribution Width 19.2H, Platelet Count 344, Mean Platelet Volume 5.9L, Neutrophils (%) (Auto) 79.9H, Lymphocytes (%) (Auto) 12.2L, Monocytes (%) (Auto) 5.4, Eosinophils (%) (Auto) 1.7, Basophils (%) (Auto) 0.9, Sodium Level 145, Potassium Level 3.9, Chloride Level 105, Carbon Dioxide Level 36H, Anion Gap 4L, Blood Urea Nitrogen 17, Creatinine 0.7, Estimat Glomerular Filtration Rate > 60, Glucose Level 143H, Calcium Level 8.3L 12/05/19 05:18: POC Whole Blood Glucose [Pending] 12/05/19 08:51: POC Whole Blood Glucose 125H 12/05/19 11:32: POC Whole Blood Glucose 140H Height (Feet): 5 Height (Inches): 1.00 Weight (Pounds): 309 General Appearance: no apparent distress Cardiovascular: tachycardia Respiratory/Chest: decreased breath sounds Abdomen: soft Papa Young MD Dec 05, 2019 12:23
--- NOTE | 2019-12-05 12:41 | Pulmonology Progress Note ---
Subjective ROS Limited/Unobtainable: No Interval Events: Re-intubated on 11/19/19; Status post tracheostomy 11/24/2019 Constitutional: Denies: fever HEENT: Repors: no symptoms Respiratory: Reports: dry cough, shortness of breath Cardiovascular: Reports: no symptoms Gastrointestinal/Abdominal: Reports: diarrhea; Denies: nausea, vomiting Musculoskeletal: Denies: pain Allergies: Coded Allergies: No Known Allergies (Unverified , 11/06/19) All Systems: reviewed and negative except above Objective Last 24 Hour Vital Signs Date Time Temp Pulse Resp B/P (MAP) Pulse Ox O2 Delivery O2 Flow Rate FiO2 12/05/19 09:16 89 23 40 12/05/19 09:07 87 121/76 12/05/19 08:00 99.9 88 22 121/76 (91) 100 12/05/19 08:00 Mechanical Ventilator Mechanical Ventilator 12/05/19 08:00 40 12/05/19 07:41 77 24 40 12/05/19 07:40 76 12/05/19 05:08 87 26 40 12/05/19 04:00 99.0 90 22 126/58 (80) 99 12/05/19 04:00 40 12/05/19 04:00 Mechanical Ventilator Mechanical Ventilator 12/05/19 03:57 81 12/05/19 03:07 72 22 40 12/05/19 01:14 85 22 40 12/05/19 00:00 40 12/05/19 00:00 Mechanical Ventilator Mechanical Ventilator 12/05/19 00:00 86 12/05/19 00:00 99.5 95 22 130/75 (93) 98 12/04/19 23:30 91 24 40 12/04/19 21:16 79 26 40 12/04/19 20:08 85 125/72 12/04/19 20:00 40 12/04/19 20:00 96 12/04/19 20:00 99.0 83 24 121/68 (85) 100 12/04/19 20:00 Mechanical Ventilator Mechanical Ventilator 12/04/19 19:10 83 22 40 12/04/19 16:55 88 27 40 12/04/19 16:00 96 12/04/19 15:59 97.5 85 21 128/71 (90) 99 12/04/19 15:59 40 12/04/19 15:58 Mechanical Ventilator Mechanical Ventilator 12/04/19 15:21 82 23 40 12/04/19 13:24 78 18 40 Intake and Output 12/04/19 12/05/19 19:00 07:00 Intake Total 750 ml 610 ml Output Total 900 ml 1100 ml Balance -150 ml -490 ml Free Water 150 ml 60 ml Tube Feeding 600 ml 550 ml Output Urine Total 600 ml 600 ml Stool Total 300 ml 500 ml General Appearance: no acute distress HEENT: normocephalic, status post trach Respiratory: decreased breath sounds Cardiovascular: normal peripheral pulses Abdomen: normal bowel sounds Extremities: no cyanosis Laboratory Tests 12/04/19 16:26: POC Whole Blood Glucose 158H 12/05/19 00:05: POC Whole Blood Glucose 146H 12/05/19 03:20: White Blood Count 8.3, Red Blood Count 3.38L, Hemoglobin 9.0L, Hematocrit 30.0L , Mean Corpuscular Volume 89, Mean Corpuscular Hemoglobin 26.6L, Mean Corpuscular Hemoglobin Concent 30.0L, Red Cell Distribution Width 19.2H, Platelet Count 344, Mean Platelet Volume 5.9L, Neutrophils (%) (Auto) 79.9H, Lymphocytes (%) (Auto) 12.2L, Monocytes (%) (Auto) 5.4, Eosinophils (%) (Auto) 1.7, Basophils (%) (Auto) 0.9, Sodium Level 145, Potassium Level 3.9, Chloride Level 105, Carbon Dioxide Level 36H, Anion Gap 4L, Blood Urea Nitrogen 17, Creatinine 0.7, Estimat Glomerular Filtration Rate > 60, Glucose Level 143H, Calcium Level 8.3L 12/05/19 05:18: POC Whole Blood Glucose [Pending] 12/05/19 08:51: POC Whole Blood Glucose 125H 12/05/19 11:32: POC Whole Blood Glucose 140H Current Medications Medications (Trade) Dose Ordered Sig/Robyn Route PRN Reason Start Time Stop Time Status Last Admin Dose Admin Acetaminophen (Tylenol) 650 mg Q4H PRN GT For Pain 11/30/19 17:45 12/30/19 17:44 11/30/19 18:24 Acetaminophen (Tylenol) 650 mg Q6H PRN GT Temp >100.5 11/29/19 15:00 12/12/19 14:59 12/05/19 00:06 Amiodarone HCl (Cordarone) 200 mg DAILY GT 12/04/19 09:00 02/18/20 09:29 12/05/19 09:05 Clonidine HCl (Catapres Tab) 0.1 mg Q4H PRN GT For High Blood Pressure 11/29/19 14:30 02/09/20 14:29 Dextrose (Dextrose 50%) 25 ml Q30M PRN IV Hypoglycemia 11/29/19 14:15 02/21/20 06:44 Dextrose (Dextrose 50%) 50 ml Q30M PRN IV Hypoglycemia 11/29/19 14:15 02/21/20 06:44 Famotidine (Pepcid) 20 mg BID GT 11/29/19 18:00 02/26/20 17:59 12/05/19 09:05 Folic Acid (Folate) 2 mg DAILY GT 11/30/19 09:00 12/15/19 08:59 12/05/19 09:07 Insulin Aspart (NovoLOG) EVERY 6 HOURS SUBQ 11/29/19 18:00 02/11/20 20:59 12/05/19 11:35 Insulin Detemir (Levemir) 10 units BID SUBQ 12/01/19 09:00 02/21/20 08:59 12/05/19 09:09 Lorazepam (Ativan 2mg/ml 1ml) 2 mg Q3H PRN IV For Anxiety 12/03/19 21:45 12/10/19 21:44 12/05/19 00:06 Metolazone (Zaroxolyn) 2.5 mg DAILY GT 11/30/19 09:00 12/28/19 09:29 12/05/19 09:05 Metoprolol Tartrate (Lopressor) 25 mg Q12HR GT 11/29/19 21:00 02/18/20 09:29 12/05/19 09:07 Vancomycin HCl (Firvanq) 125 mg FOUR TIMES A DAY GT 12/01/19 13:00 12/10/19 23:59 12/05/19 12:07 Assessment/Plan Assessment/Plan Pulmonary Progress Note Subjective ROS Limited/Unobtainable: No Interval Events: Re-intubated on 11/19/19; Status post tracheostomy 11/24/2019 Constitutional: Denies: fever HEENT: Repors: no symptoms Respiratory: Reports: dry cough, shortness of breath Cardiovascular: Reports: no symptoms Gastrointestinal/Abdominal: Reports: diarrhea Allergies: Coded Allergies: No Known Allergies (Unverified , 11/06/19) All Systems: reviewed and negative except above Objective Vital Signs Noted General Appearance: no acute distress, on ventilator HEENT: normocephalic, status post trach Respiratory: decreased breath sounds Cardiovascular: normal peripheral pulses Abdomen: normal bowel sounds Extremities: no cyanosis Laboratory Tests moted Assessment/Plan IMPRESSION: 1. COVID-19 pneumonia. 2. Diabetes mellitus and hypertension. 3. Lactic acidemia. 4. Epistaxis 5. Respiratory failure; failed extubation 6. S/p trach/PEG DISCUSSION: ID following status post tracheostomy Wean as toletrated S/p PEG Dc planning to sub-acute Inderjit Hunter MD Dec 05, 2019 12:41
--- NOTE | 2019-12-05 16:38 | Cardiac Electrophysiology PN ---
Assessment/Plan Assessment/Plan 1. Paroxysmal atrial fibrillation. On metoprolol 25 bid and Amiodarone 200 daily Off anticoagulation for hematuria and black stool EF 55% on echo. 2. S/P Shock. Off pressors. 3. COVID positive pneumonia. Now negative x2 and off isolation 4. Diabetes, on insulin. 5. Respiratory failure on the Vent. S/P Tracheostomy 11/24/19 6. S/P Massive nasal bleed. 7. Severe LE edema.On Metolazone 8. Dysphagia, S/P PEG 11/25/19 DW RN Subjective Subjective On the vent with 40% Fio2. Off Covid isolation. Able to verbalize and alert S/P tracheostomy 11/24/19 and PEG 11/25/19. Trach leaking In atrial fib rate controlled on Lopressor 25 bid. Objective Last 24 Hour Vital Signs Date Time Temp Pulse Resp B/P (MAP) Pulse Ox O2 Delivery O2 Flow Rate FiO2 12/05/19 16:00 Mechanical Ventilator Mechanical Ventilator 12/05/19 16:00 40 12/05/19 15:26 79 12/05/19 15:05 76 27 40 12/05/19 12:40 70 26 40 12/05/19 12:00 80 12/05/19 12:00 40 12/05/19 12:00 Mechanical Ventilator Mechanical Ventilator 12/05/19 12:00 99.5 80 25 122/72 (89) 100 12/05/19 11:25 74 26 40 12/05/19 09:16 89 23 40 12/05/19 09:07 87 121/76 12/05/19 08:00 99.9 88 22 121/76 (91) 100 12/05/19 08:00 Mechanical Ventilator Mechanical Ventilator 12/05/19 08:00 40 12/05/19 07:41 77 24 40 12/05/19 07:40 76 12/05/19 05:08 87 26 40 12/05/19 04:00 99.0 90 22 126/58 (80) 99 12/05/19 04:00 40 12/05/19 04:00 Mechanical Ventilator Mechanical Ventilator 12/05/19 03:57 81 12/05/19 03:07 72 22 40 12/05/19 01:14 85 22 40 12/05/19 00:00 40 12/05/19 00:00 Mechanical Ventilator Mechanical Ventilator 12/05/19 00:00 86 12/05/19 00:00 99.5 95 22 130/75 (93) 98 12/04/19 23:30 91 24 40 12/04/19 21:16 79 26 40 12/04/19 20:08 85 125/72 12/04/19 20:00 40 12/04/19 20:00 96 12/04/19 20:00 99.0 83 24 121/68 (85) 100 12/04/19 20:00 Mechanical Ventilator Mechanical Ventilator 12/04/19 19:10 83 22 40 12/04/19 16:55 88 27 40 Intake and Output 12/04/19 12/05/19 19:00 07:00 Intake Total 750 ml 610 ml Output Total 900 ml 1100 ml Balance -150 ml -490 ml Free Water 150 ml 60 ml Tube Feeding 600 ml 550 ml Output Urine Total 600 ml 600 ml Stool Total 300 ml 500 ml Laboratory Tests Test 12/05/19 00:05 12/05/19 03:20 12/05/19 05:18 12/05/19 08:51 POC Whole Blood Glucose 146 MG/DL (74-106) H Pending 125 MG/DL (74-106) H White Blood Count 8.3 K/UL (4.8-10.8) Red Blood Count 3.38 M/UL (4.20-5.40) L Hemoglobin 9.0 G/DL (12.0-16.0) L Hematocrit 30.0 % (37.0-47.0) L Mean Corpuscular Volume 89 FL (80-99) Mean Corpuscular Hemoglobin 26.6 PG (27.0-31.0) L Mean Corpuscular Hemoglobin Concent 30.0 G/DL (32.0-36.0) L Red Cell Distribution Width 19.2 % (11.6-14.8) H Platelet Count 344 K/UL (150-450) Mean Platelet Volume 5.9 FL (6.5-10.1) L Neutrophils (%) (Auto) 79.9 % (45.0-75.0) H Lymphocytes (%) (Auto) 12.2 % (20.0-45.0) L Monocytes (%) (Auto) 5.4 % (1.0-10.0) Eosinophils (%) (Auto) 1.7 % (0.0-3.0) Basophils (%) (Auto) 0.9 % (0.0-2.0) Sodium Level 145 MMOL/L (136-145) Potassium Level 3.9 MMOL/L (3.5-5.1) Chloride Level 105 MMOL/L (98-107) Carbon Dioxide Level 36 MMOL/L (21-32) H Anion Gap 4 mmol/L (5-15) L Blood Urea Nitrogen 17 mg/dL (7-18) Creatinine 0.7 MG/DL (0.55-1.30) Estimat Glomerular Filtration Rate > 60 mL/min (>60) Glucose Level 143 MG/DL (74-106) H Calcium Level 8.3 MG/DL (8.5-10.1) L Test 12/05/19 11:32 POC Whole Blood Glucose 140 MG/DL (74-106) H Objective HEAD AND NECK: No JVD. Tracheostomy in place. LUNGS: Coarse rhonchi. CARDIOVASCULAR: Irregularly irregular. S1 and S2 with no gallop or murmur. ABDOMEN: Soft.PEG EXTREMITIES: 2 plus pitting edema. Gabe Snell MD Dec 05, 2019 16:38
--- NOTE | 2019-12-05 18:23 | Surgery Progress Note ---
Surgery Progress Note Subjective Procedure Performed tracheostomy Additional Comments no acute events Objective Last 24 Hour Vital Signs Date Time Temp Pulse Resp B/P (MAP) Pulse Ox O2 Delivery O2 Flow Rate FiO2 12/05/19 17:10 72 23 40 12/05/19 16:00 Mechanical Ventilator Mechanical Ventilator 12/05/19 16:00 98.2 86 25 131/81 (98) 100 12/05/19 16:00 40 12/05/19 15:26 79 12/05/19 15:05 76 27 40 12/05/19 12:40 70 26 40 12/05/19 12:00 80 12/05/19 12:00 40 12/05/19 12:00 Mechanical Ventilator Mechanical Ventilator 12/05/19 12:00 99.5 80 25 122/72 (89) 100 12/05/19 11:25 74 26 40 12/05/19 09:16 89 23 40 12/05/19 09:07 87 121/76 12/05/19 08:00 99.9 88 22 121/76 (91) 100 12/05/19 08:00 Mechanical Ventilator Mechanical Ventilator 12/05/19 08:00 40 12/05/19 07:41 77 24 40 12/05/19 07:40 76 12/05/19 05:08 87 26 40 12/05/19 04:00 99.0 90 22 126/58 (80) 99 12/05/19 04:00 40 12/05/19 04:00 Mechanical Ventilator Mechanical Ventilator 12/05/19 03:57 81 12/05/19 03:07 72 22 40 12/05/19 01:14 85 22 40 12/05/19 00:00 40 12/05/19 00:00 Mechanical Ventilator Mechanical Ventilator 12/05/19 00:00 86 12/05/19 00:00 99.5 95 22 130/75 (93) 98 12/04/19 23:30 91 24 40 12/04/19 21:16 79 26 40 12/04/19 20:08 85 125/72 12/04/19 20:00 40 12/04/19 20:00 96 12/04/19 20:00 99.0 83 24 121/68 (85) 100 12/04/19 20:00 Mechanical Ventilator Mechanical Ventilator 12/04/19 19:10 83 22 40 I&O Intake and Output 12/04/19 12/05/19 19:00 07:00 Intake Total 750 ml 660 ml Output Total 900 ml 1100 ml Balance -150 ml -440 ml Free Water 150 ml 60 ml Tube Feeding 600 ml 600 ml Output Urine Total 600 ml 600 ml Stool Total 300 ml 500 ml Dressing: other Wound: other Cardiovascular: RSR Respiratory: decreased breath sounds Abdomen: soft, non-tender, present bowel sounds Extremities: edema, no tenderness, no cyanosis Laboratory Tests Test 12/05/19 00:05 12/05/19 03:20 12/05/19 05:18 12/05/19 08:51 POC Whole Blood Glucose 146 MG/DL (74-106) H Pending 125 MG/DL (74-106) H White Blood Count 8.3 K/UL (4.8-10.8) Red Blood Count 3.38 M/UL (4.20-5.40) L Hemoglobin 9.0 G/DL (12.0-16.0) L Hematocrit 30.0 % (37.0-47.0) L Mean Corpuscular Volume 89 FL (80-99) Mean Corpuscular Hemoglobin 26.6 PG (27.0-31.0) L Mean Corpuscular Hemoglobin Concent 30.0 G/DL (32.0-36.0) L Red Cell Distribution Width 19.2 % (11.6-14.8) H Platelet Count 344 K/UL (150-450) Mean Platelet Volume 5.9 FL (6.5-10.1) L Neutrophils (%) (Auto) 79.9 % (45.0-75.0) H Lymphocytes (%) (Auto) 12.2 % (20.0-45.0) L Monocytes (%) (Auto) 5.4 % (1.0-10.0) Eosinophils (%) (Auto) 1.7 % (0.0-3.0) Basophils (%) (Auto) 0.9 % (0.0-2.0) Sodium Level 145 MMOL/L (136-145) Potassium Level 3.9 MMOL/L (3.5-5.1) Chloride Level 105 MMOL/L (98-107) Carbon Dioxide Level 36 MMOL/L (21-32) H Anion Gap 4 mmol/L (5-15) L Blood Urea Nitrogen 17 mg/dL (7-18) Creatinine 0.7 MG/DL (0.55-1.30) Estimat Glomerular Filtration Rate > 60 mL/min (>60) Glucose Level 143 MG/DL (74-106) H Calcium Level 8.3 MG/DL (8.5-10.1) L Test 12/05/19 11:32 12/05/19 17:02 12/05/19 17:31 POC Whole Blood Glucose 140 MG/DL (74-106) H 86 MG/DL (74-106) 96 MG/DL (74-106) Plan Problems: (1) Weak (2) UTI (urinary tract infection) (3) Hypoxia (4) Epistaxis Assessment & Plan: Severe after taxis left nostril Rhino Rocket placed hemostasis noted over the course 24 hours hemoglobin stable Lovenox been stopped. The balloon of both ports of the Rhino Rocket were deflated today. The rocket itself was not removed and will monitor over the course next 24 hours hemostasis. If so will gently remove and plan for local monitoring. Currently wean ventilator as tolerated. Goals of extubation when possible. deflated balloon 11/08 removed trumpet 11/09 will monitor for bleeding wean vent plan extubation discussed with pulm (5) Fluid overload Assessment & Plan: Continue central venous catheter for now. Will anticipate removal once patient stable for extubation. Thank you for allowing me to participate patient's care picc in line out (6) Diabetes (7) CHF (congestive heart failure) (8) Afib (9) Multifocal pneumonia (10) 2019 novel coronavirus disease (COVID-19) Assessment & Plan: + wean vent extubated failed reintubated consider trach plan trach / s/p trach comfortable (11) Respiratory failure Assessment & Plan: trach dislodged 11/29 with air leak evaluated at bedside and repositioned. improved now will monitor stable monitoring Ortiz Fleming Dec 05, 2019 18:23
--- NOTE | 2019-12-05 22:08 | General Progress Note ---
Assessment/Plan Problem List: (1) Weak ICD Codes: R53.1 - Weakness SNOMED: 44787719 (2) UTI (urinary tract infection) ICD Codes: N39.0 - Urinary tract infection, site not specified SNOMED: 37391212 (3) Respiratory failure ICD Codes: J96.90 - Respiratory failure, unspecified, unspecified whether with hypoxia or hypercapnia SNOMED: 675549686 (4) Electrolyte imbalance ICD Codes: E87.8 - Other disorders of electrolyte and fluid balance, not elsewhere classified SNOMED: 518909428 (5) Fluid overload ICD Codes: E87.70 - Fluid overload, unspecified SNOMED: 29470908 (6) Diabetes ICD Codes: E11.9 - Type 2 diabetes mellitus without complications SNOMED: 42462697 (7) CHF (congestive heart failure) ICD Codes: I50.9 - Heart failure, unspecified SNOMED: 30656629 (8) Hypoxia ICD Codes: R09.02 - Hypoxemia SNOMED: 273252322 (9) Afib ICD Codes: I48.91 - Unspecified atrial fibrillation SNOMED: 91539056 (10) Multifocal pneumonia ICD Codes: J18.9 - Pneumonia, unspecified organism SNOMED: 763927056 Status: stable, progressing Assessment/Plan: afebrile resp insuff reveiwed chart and labs no acute events vitals holding Subjective ROS Limited/Unobtainable: Yes Allergies: Coded Allergies: No Known Allergies (Unverified , 11/06/19) Objective Last 24 Hour Vital Signs Date Time Temp Pulse Resp B/P (MAP) Pulse Ox O2 Delivery O2 Flow Rate FiO2 12/05/19 20:54 93 153/92 12/05/19 20:47 74 22 40 12/05/19 20:00 40 12/05/19 20:00 98.0 84 21 131/75 (93) 98 12/05/19 19:04 77 24 40 12/05/19 17:10 72 23 40 12/05/19 16:00 Mechanical Ventilator Mechanical Ventilator 12/05/19 16:00 98.2 86 25 131/81 (98) 100 12/05/19 16:00 40 12/05/19 15:26 79 12/05/19 15:05 76 27 40 12/05/19 12:40 70 26 40 12/05/19 12:00 80 12/05/19 12:00 40 12/05/19 12:00 Mechanical Ventilator Mechanical Ventilator 12/05/19 12:00 99.5 80 25 122/72 (89) 100 12/05/19 11:25 74 26 40 12/05/19 09:16 89 23 40 12/05/19 09:07 87 121/76 12/05/19 08:00 99.9 88 22 121/76 (91) 100 12/05/19 08:00 Mechanical Ventilator Mechanical Ventilator 12/05/19 08:00 40 12/05/19 07:41 77 24 40 12/05/19 07:40 76 12/05/19 05:08 87 26 40 12/05/19 04:00 99.0 90 22 126/58 (80) 99 12/05/19 04:00 40 12/05/19 04:00 Mechanical Ventilator Mechanical Ventilator 12/05/19 03:57 81 12/05/19 03:07 72 22 40 12/05/19 01:14 85 22 40 12/05/19 00:00 40 12/05/19 00:00 Mechanical Ventilator Mechanical Ventilator 12/05/19 00:00 86 12/05/19 00:00 99.5 95 22 130/75 (93) 98 12/04/19 23:30 91 24 40 Intake and Output 12/04/19 12/05/19 19:00 07:00 Intake Total 750 ml 660 ml Output Total 900 ml 1100 ml Balance -150 ml -440 ml Free Water 150 ml 60 ml Tube Feeding 600 ml 600 ml Output Urine Total 600 ml 600 ml Stool Total 300 ml 500 ml Laboratory Tests 12/05/19 00:05: POC Whole Blood Glucose 146H 12/05/19 03:20: White Blood Count 8.3, Red Blood Count 3.38L, Hemoglobin 9.0L, Hematocrit 30.0L , Mean Corpuscular Volume 89, Mean Corpuscular Hemoglobin 26.6L, Mean Corpuscular Hemoglobin Concent 30.0L, Red Cell Distribution Width 19.2H, Platelet Count 344, Mean Platelet Volume 5.9L, Neutrophils (%) (Auto) 79.9H, Lymphocytes (%) (Auto) 12.2L, Monocytes (%) (Auto) 5.4, Eosinophils (%) (Auto) 1.7, Basophils (%) (Auto) 0.9, Sodium Level 145, Potassium Level 3.9, Chloride Level 105, Carbon Dioxide Level 36H, Anion Gap 4L, Blood Urea Nitrogen 17, Creatinine 0.7, Estimat Glomerular Filtration Rate > 60, Glucose Level 143H, Calcium Level 8.3L 12/05/19 05:18: POC Whole Blood Glucose [Pending] 12/05/19 08:51: POC Whole Blood Glucose 125H 12/05/19 11:32: POC Whole Blood Glucose 140H 12/05/19 17:02: POC Whole Blood Glucose 86 12/05/19 17:31: POC Whole Blood Glucose 96 Height (Feet): 5 Height (Inches): 1.00 Weight (Pounds): 309 Darius Real MD Dec 05, 2019 22:08
[2019-12-06] MEDS: NovoLOG Insulin Flexpen SUBQ SCH ×5 (00:41→17:38)
[2019-12-06 04:00] VITALS: BP 126/78
[2019-12-06] MEDS: LORazepam Inj 2mg/ml 1ml IV PRN (05:58)
--- NOTE | 2019-12-06 07:31 | Hematology/Onc Progress Note ---
Assessment/Plan Assessment/Plan # Anemia of chronic disease due to underlying chronic medical issues, multifactorial v Gi bleed in this case likely related covid19+++++++++ --> Anemia workup has been ordered, rule out gi bleed --> No evidence of hemolysis is noted, peripheral smear has been reviewed. --> Hgb goal >7. Transfuse prn. --> Epogen or iron at this time is not particularly indicated --> Medications have been reviewed --> low threshold for gi evaluation in case has occult + --> hgb 10-->9.8-->9.2-->9.7-->10.7->10->11->10.2->10.6->9.4->10.8->9.8-->10->10 -->9.2->9 # Leukocytosis/elevated white blood cell count, unspecified likely related to covid19 --> have reviewed peripheral smear and bandemia/neutrophilia noted --> continue antibiotics if they have been started by ID team zosyn --> on remdesivir, dexamathasone --> monitor for resolution --> wbc 12->11-->11-->13->16-->21-->17-->14-->14->13-->11 # COVID 19 pneumonia --> on vent --> respiratory failure --> s/p vent reintubation 11/08 --> 11/23 trach was done # Diabetes mellitus --> iss and bs goal <140 # Dysphagia --> peg 11/24 # Hypertension --> sbp goal <150 # Dvt ppx scds Appreciate consultation and jimena RN Subjective Constitutional: Denies: no symptoms, chills, fever, malaise, weakness, other HEENT: Denies: no symptoms, eye pain, blurred vision, tearing, double vision, ear pain, ear discharge, nose pain, nose congestion, throat pain, throat swelling, mouth pain, mouth swelling, other Cardiovascular: Denies: no symptoms, chest pain, edema, irregular heart rate, lightheadedness, palpitations, syncope, other Gastrointestinal/Abdominal: Denies: no symptoms, abdomen distended, abdominal pain, black stools, tarry stools, blood in stool, constipated, diarrhea, difficulty swallowing, nausea, poor appetite, poor fluid intake, rectal bleeding , vomiting, other Genitourinary: Denies: no symptoms, burning, discharge, frequency, flank pain, hematuria, incontinence, pain, urgency, other Neurologic/Psychiatric: Denies: no symptoms, anxiety, depressed, emotional problems, headache, numbness, paresthesia, pre-existing deficit, seizure, tingling, tremors, weakness, other Endocrine: Denies: no symptoms, excessive sweating, flushing, intolerance to cold, intolerance to heat, increased hunger, increased thirst, increased urine, unexplained weight gain, unexplained weight loss, other Hematologic/Lymphatic: Denies: no symptoms, anemia, easy bleeding, easy bruising, adenopathy, other Allergies: Coded Allergies: No Known Allergies (Unverified , 11/06/19) Subjective 11/09 weaning prn, meds reviewed, labs noted, hgb 9.2 11/10 on vent, no bleeding, hgb remains low, jimena Rn Jose R in am 11/11 on vent, fluids, ogf tube as well, labs pending in am 11/12 remains altered, no bleeding, labs reviewed, cbc noted 11/13 attempted weaning, but did not do well, no bleeding, hgb 10 11/14 intubated, weaning, on vent, with og, labs noted, abx 11/15 labs noted, no bleedign, weaning protocol, no night sweats, elev wbc, with fevers 11/16 no bleeding, jimena Broussard rn in the am, on vent, weaning but failed 11/17 meds reviewed, no night sweats, jimena rn, no bleeding 11/18 extubated, on nc at this time, no bleeding, meds reviewed 11/19 labs noted, no bleeding, on vent again, weaning 11/21 labs reviewed, hgb 9.4, no hemolysis, very difficult to obtain repeat lab draw in am 11/22 unable to wean vent, labs noted, plan for trach tomorrow, on fentanyl, still edematous 11/23 is for trach today and peg tomorrow, stil edematous, on lasix gtt 11/24 meds noted, no bleeding, on vent, for peg this am, trach functional 11/25 labs reviewed, no bleeding, meds noted, obtunded, hr better 11/26 picc line continues to leak, no bleeding, labs noted, low grade fever, id aware 12/03 remains altered, labs noted, no bleeding, hgb remains low, tmax 99.7f 12/04 no bleeding, left foot swollen, for duplex lower ext r/o dvt 12/05 is to have duplex for tomorrow, otherwise no changes, for cbc this am, jimena Dsouza Rn Objective Objective Current Medications Medications (Trade) Dose Ordered Sig/Robyn Route PRN Reason Start Time Stop Time Status Last Admin Dose Admin Acetaminophen (Tylenol) 650 mg Q4H PRN GT For Pain 11/30/19 17:45 12/30/19 17:44 11/30/19 18:24 Acetaminophen (Tylenol) 650 mg Q6H PRN GT Temp >100.5 11/29/19 15:00 12/12/19 14:59 12/05/19 00:06 Amiodarone HCl (Cordarone) 200 mg DAILY GT 12/04/19 09:00 02/18/20 09:29 12/05/19 09:05 Clonidine HCl (Catapres Tab) 0.1 mg Q4H PRN GT For High Blood Pressure 11/29/19 14:30 02/09/20 14:29 Dextrose (Dextrose 50%) 25 ml Q30M PRN IV Hypoglycemia 11/29/19 14:15 02/21/20 06:44 Dextrose (Dextrose 50%) 50 ml Q30M PRN IV Hypoglycemia 11/29/19 14:15 02/21/20 06:44 Famotidine (Pepcid) 20 mg BID GT 11/29/19 18:00 02/26/20 17:59 12/05/19 17:21 Folic Acid (Folate) 2 mg DAILY GT 11/30/19 09:00 12/15/19 08:59 12/05/19 09:07 Insulin Aspart (NovoLOG) EVERY 6 HOURS SUBQ 11/29/19 18:00 02/11/20 20:59 12/05/19 11:35 Insulin Detemir (Levemir) 10 units BID SUBQ 12/01/19 09:00 02/21/20 08:59 12/05/19 09:09 Lorazepam (Ativan 2mg/ml 1ml) 2 mg Q3H PRN IV For Anxiety 12/03/19 21:45 12/10/19 21:44 12/06/19 05:58 Metolazone (Zaroxolyn) 2.5 mg DAILY GT 11/30/19 09:00 12/28/19 09:29 12/05/19 09:05 Metoprolol Tartrate (Lopressor) 25 mg Q12HR GT 11/29/19 21:00 02/18/20 09:29 12/05/19 20:54 Vancomycin HCl (Firvanq) 125 mg FOUR TIMES A DAY GT 12/01/19 13:00 12/10/19 23:59 12/05/19 20:54 Last 24 Hour Vital Signs Date Time Temp Pulse Resp B/P (MAP) Pulse Ox O2 Delivery O2 Flow Rate FiO2 12/06/19 07:07 107 27 40 12/06/19 04:58 92 22 40 12/06/19 04:00 97.9 86 24 126/78 (94) 100 12/06/19 04:00 Mechanical Ventilator Mechanical Ventilator 12/06/19 04:00 40 12/06/19 03:33 92 12/06/19 02:50 78 20 40 12/06/19 01:15 80 24 40 12/06/19 00:00 40 12/06/19 00:00 Mechanical Ventilator Mechanical Ventilator 12/05/19 23:53 98.1 83 21 95/53 (67) 99 12/05/19 23:35 76 12/05/19 22:58 83 25 40 12/05/19 20:54 93 153/92 12/05/19 20:47 74 22 40 12/05/19 20:00 40 12/05/19 20:00 98.0 84 21 131/75 (93) 98 12/05/19 20:00 Mechanical Ventilator Mechanical Ventilator 12/05/19 19:23 89 12/05/19 19:04 77 24 40 12/05/19 17:10 72 23 40 12/05/19 16:00 Mechanical Ventilator Mechanical Ventilator 12/05/19 16:00 98.2 86 25 131/81 (98) 100 12/05/19 16:00 40 12/05/19 15:26 79 12/05/19 15:05 76 27 40 12/05/19 12:40 70 26 40 12/05/19 12:00 80 12/05/19 12:00 40 12/05/19 12:00 Mechanical Ventilator Mechanical Ventilator 12/05/19 12:00 99.5 80 25 122/72 (89) 100 12/05/19 11:25 74 26 40 12/05/19 09:16 89 23 40 12/05/19 09:07 87 121/76 12/05/19 08:00 99.9 88 22 121/76 (91) 100 12/05/19 08:00 Mechanical Ventilator Mechanical Ventilator 12/05/19 08:00 40 12/05/19 07:41 77 24 40 12/05/19 07:40 76 12/05/19 05:08 87 26 40 12/05/19 04:00 99.0 90 22 126/58 (80) 99 12/05/19 04:00 40 12/05/19 04:00 Mechanical Ventilator Mechanical Ventilator 12/05/19 03:57 81 12/05/19 03:07 72 22 40 12/05/19 01:14 85 22 40 12/05/19 00:00 40 12/05/19 00:00 Mechanical Ventilator Mechanical Ventilator 12/05/19 00:00 86 12/05/19 00:00 99.5 95 22 130/75 (93) 98 12/04/19 23:30 91 24 40 12/04/19 21:16 79 26 40 12/04/19 20:08 85 125/72 12/04/19 20:00 40 12/04/19 20:00 96 12/04/19 20:00 99.0 83 24 121/68 (85) 100 12/04/19 20:00 Mechanical Ventilator Mechanical Ventilator 12/04/19 19:10 83 22 40 12/04/19 16:55 88 27 40 12/04/19 16:00 96 12/04/19 15:59 97.5 85 21 128/71 (90) 99 12/04/19 15:59 40 12/04/19 15:58 Mechanical Ventilator Mechanical Ventilator 12/04/19 15:21 82 23 40 12/04/19 13:24 78 18 40 12/04/19 12:00 98.8 85 21 111/60 (77) 100 12/04/19 12:00 84 12/04/19 12:00 40 12/04/19 12:00 Mechanical Ventilator Mechanical Ventilator 12/04/19 11:29 92 23 40 12/04/19 09:29 84 22 40 12/04/19 08:42 80 118/47 12/04/19 08:00 85 12/04/19 08:00 Mechanical Ventilator Mechanical Ventilator 12/04/19 08:00 40 12/04/19 07:57 98.4 80 21 118/47 (70) 100 Intake and Output 12/05/19 12/06/19 19:00 07:00 Intake Total 750 ml 600 ml Output Total 700 ml 950 ml Balance 50 ml -350 ml Free Water 200 ml Tube Feeding 550 ml 600 ml Output Urine Total 600 ml 650 ml Stool Total 100 ml 300 ml # Voids 1 Labs Test 12/03/19 11:45 12/03/19 17:01 12/04/19 00:08 12/04/19 03:50 POC Whole Blood Glucose 128 MG/DL (74-106) 132 MG/DL (74-106) 147 MG/DL (74-106) White Blood Count 7.9 K/UL (4.8-10.8) Red Blood Count 3.47 M/UL (4.20-5.40) Hemoglobin 9.2 G/DL (12.0-16.0) Hematocrit 30.6 % (37.0-47.0) Mean Corpuscular Volume 88 FL (80-99) Mean Corpuscular Hemoglobin 26.4 PG (27.0-31.0) Mean Corpuscular Hemoglobin Concent 30.0 G/DL (32.0-36.0) Red Cell Distribution Width 19.0 % (11.6-14.8) Platelet Count 354 K/UL (150-450) Mean Platelet Volume 5.8 FL (6.5-10.1) Neutrophils (%) (Auto) 80.2 % (45.0-75.0) Lymphocytes (%) (Auto) 10.4 % (20.0-45.0) Monocytes (%) (Auto) 6.9 % (1.0-10.0) Eosinophils (%) (Auto) 1.4 % (0.0-3.0) Basophils (%) (Auto) 1.1 % (0.0-2.0) Sodium Level 145 MMOL/L (136-145) Potassium Level 3.7 MMOL/L (3.5-5.1) Chloride Level 106 MMOL/L (98-107) Carbon Dioxide Level 37 MMOL/L (21-32) Anion Gap 3 mmol/L (5-15) Blood Urea Nitrogen 17 mg/dL (7-18) Creatinine 0.7 MG/DL (0.55-1.30) Estimat Glomerular Filtration Rate > 60 mL/min (>60) Glucose Level 135 MG/DL (74-106) Calcium Level 8.2 MG/DL (8.5-10.1) Test 12/04/19 05:14 12/04/19 12:06 12/04/19 16:26 12/05/19 00:05 POC Whole Blood Glucose 148 MG/DL (74-106) 153 MG/DL (74-106) 158 MG/DL (74-106) 146 MG/DL (74-106) Test 12/05/19 03:20 12/05/19 05:18 12/05/19 08:51 12/05/19 11:32 White Blood Count 8.3 K/UL (4.8-10.8) Red Blood Count 3.38 M/UL (4.20-5.40) Hemoglobin 9.0 G/DL (12.0-16.0) Hematocrit 30.0 % (37.0-47.0) Mean Corpuscular Volume 89 FL (80-99) Mean Corpuscular Hemoglobin 26.6 PG (27.0-31.0) Mean Corpuscular Hemoglobin Concent 30.0 G/DL (32.0-36.0) Red Cell Distribution Width 19.2 % (11.6-14.8) Platelet Count 344 K/UL (150-450) Mean Platelet Volume 5.9 FL (6.5-10.1) Neutrophils (%) (Auto) 79.9 % (45.0-75.0) Lymphocytes (%) (Auto) 12.2 % (20.0-45.0) Monocytes (%) (Auto) 5.4 % (1.0-10.0) Eosinophils (%) (Auto) 1.7 % (0.0-3.0) Basophils (%) (Auto) 0.9 % (0.0-2.0) Sodium Level 145 MMOL/L (136-145) Potassium Level 3.9 MMOL/L (3.5-5.1) Chloride Level 105 MMOL/L (98-107) Carbon Dioxide Level 36 MMOL/L (21-32) Anion Gap 4 mmol/L (5-15) Blood Urea Nitrogen 17 mg/dL (7-18) Creatinine 0.7 MG/DL (0.55-1.30) Estimat Glomerular Filtration Rate > 60 mL/min (>60) Glucose Level 143 MG/DL (74-106) Calcium Level 8.3 MG/DL (8.5-10.1) POC Whole Blood Glucose 125 MG/DL (74-106) 140 MG/DL (74-106) Test 12/05/19 17:02 12/05/19 17:31 POC Whole Blood Glucose 86 MG/DL (74-106) 96 MG/DL (74-106) Height (Feet): 5 Height (Inches): 1.00 Weight (Pounds): 277 Objective Physical Exam: Vitals: reviewed General: NAD HEENT: nc, at Neck: supple Chest: clear breath sounds on vent++trach+ Cardiovascular: RRR, no s3, s4 Abdomen: soft, nontender, nd++peg Extremities: no cce, normal range of motion, left foot swelling+ Neuro: alert and oriented Ismael Fischer MD Dec 06, 2019 07:31
[2019-12-06 07:52] VITALS: BP 124/76
[2019-12-06] MEDS: Vancomycin oral 125mg/2.5ml GT SCH ×4 (08:15→21:03)
[2019-12-06] MEDS: metOLazone 2.5 MG TAB GT SCH (08:15)
[2019-12-06] MEDS: Amiodarone 200mg tab GT SCH (08:15)
[2019-12-06] MEDS: Levemir Flexpen SUBQ SCH ×2 (08:15→17:38)
--- NOTE | 2019-12-06 11:03 | Surgery Progress Note ---
Surgery Progress Note Subjective Procedure Performed tracheostomy Additional Comments trach stable on vent support weaning eaxm unchanged somewhat responsive Objective Last 24 Hour Vital Signs Date Time Temp Pulse Resp B/P (MAP) Pulse Ox O2 Delivery O2 Flow Rate FiO2 12/06/19 10:52 71 20 40 12/06/19 09:14 108 32 40 12/06/19 08:20 97 12/06/19 08:16 90 124/76 12/06/19 08:00 40 12/06/19 08:00 Mechanical Ventilator Mechanical Ventilator 12/06/19 07:52 99.5 90 28 124/76 (92) 100 12/06/19 07:07 107 27 40 12/06/19 04:58 92 22 40 12/06/19 04:00 97.9 86 24 126/78 (94) 100 12/06/19 04:00 Mechanical Ventilator Mechanical Ventilator 12/06/19 04:00 40 12/06/19 03:33 92 12/06/19 02:50 78 20 40 12/06/19 01:15 80 24 40 12/06/19 00:00 40 12/06/19 00:00 Mechanical Ventilator Mechanical Ventilator 12/05/19 23:53 98.1 83 21 95/53 (67) 99 12/05/19 23:35 76 12/05/19 22:58 83 25 40 12/05/19 20:54 93 153/92 12/05/19 20:47 74 22 40 12/05/19 20:00 40 12/05/19 20:00 98.0 84 21 131/75 (93) 98 12/05/19 20:00 Mechanical Ventilator Mechanical Ventilator 12/05/19 19:23 89 12/05/19 19:04 77 24 40 12/05/19 17:10 72 23 40 12/05/19 16:00 Mechanical Ventilator Mechanical Ventilator 12/05/19 16:00 98.2 86 25 131/81 (98) 100 12/05/19 16:00 40 12/05/19 15:26 79 12/05/19 15:05 76 27 40 12/05/19 12:40 70 26 40 12/05/19 12:00 80 12/05/19 12:00 40 12/05/19 12:00 Mechanical Ventilator Mechanical Ventilator 12/05/19 12:00 99.5 80 25 122/72 (89) 100 12/05/19 11:25 74 26 40 I&O Intake and Output 12/05/19 12/06/19 19:00 07:00 Intake Total 750 ml 650 ml Output Total 700 ml 950 ml Balance 50 ml -300 ml Free Water 200 ml Tube Feeding 550 ml 650 ml Output Urine Total 600 ml 650 ml Stool Total 100 ml 300 ml # Voids 1 Dressing: saturated Cardiovascular: RSR Respiratory: decreased breath sounds Abdomen: soft, non-tender, present bowel sounds Extremities: edema, no cyanosis Laboratory Tests Test 12/05/19 11:32 12/05/19 17:02 12/05/19 17:31 12/06/19 08:12 POC Whole Blood Glucose 140 MG/DL (74-106) H 86 MG/DL (74-106) 96 MG/DL (74-106) 141 MG/DL (74-106) H Plan Problems: (1) Weak (2) UTI (urinary tract infection) (3) Hypoxia (4) Epistaxis Assessment & Plan: Severe after taxis left nostril Rhino Rocket placed hemostasis noted over the course 24 hours hemoglobin stable Lovenox been stopped. The balloon of both ports of the Rhino Rocket were deflated today. The rocket itself was not removed and will monitor over the course next 24 hours hemostasis. If so will gently remove and plan for local monitoring. Currently wean ventilator as tolerated. Goals of extubation when possible. deflated balloon 11/08 removed trumpet 11/09 will monitor for bleeding wean vent plan extubation discussed with pulm (5) Fluid overload Assessment & Plan: Continue central venous catheter for now. Will anticipate removal once patient stable for extubation. Thank you for allowing me to participate patient's care picc in line out (6) Diabetes (7) CHF (congestive heart failure) (8) Afib (9) Multifocal pneumonia (10) 2019 novel coronavirus disease (COVID-19) Assessment & Plan: + wean vent extubated failed reintubated consider trach plan trach 8/ s/p trach comfortable (11) Respiratory failure Assessment & Plan: trach dislodged 11/29 with air leak evaluated at bedside and repositioned. improved now will monitor stable monitoring Ortiz Fleming Dec 06, 2019 11:03
[2019-12-06 12:00] VITALS: BP 142/78
--- NOTE | 2019-12-06 12:32 | Nephrology Progress Note ---
Assessment/Plan Problem List: (1) Electrolyte imbalance (2) Diabetes (3) 2019 novel coronavirus disease (COVID-19) (4) Respiratory failure Assessment 1. COVID-19 pneumonia. 2. Diabetes and hyperglycemia 3. Hypertension. 4. Hypoxic respiratory failure 5. Morbid obesity with BMI of 65.5 6. Nasal bleeding 7. Lactic acidosis 8. Hyperkalemia Plan December 05: Renal parameters stable. Will check labs tomorrow. Continue per consultants. December 04: Stable renal parameters. Continue per consultants. December 03: Renal parameters stable. Continue per consultants. December 02: Remains stable from renal standpoint of view. Electrolyte abnormalities addressed and corrected. December 01: Remains stable from renal standpoint of view. November 30: Lab reviewed. Renal parameters stable. Continue per consultants. November 29: Lab reviewed. Renal parameters stable. Continue per consultants. November 28: Lab reviewed. Phosphorus supplement given. Discussed with RN. Continue to monitor renal parameters. November 27: Lab reviewed. Serum sodium improved. Will start low-dose Zaroxolyn. Change IV Pepcid to GT route. Remains full code. Monitor renal parameters and electrolytes. November 26: Lab reviewed. Serum sodium elevated. 500 cc D5W bolus given. Potassium supplement given. Patient remains full code. Continue per consultants. November 25: Lab reviewed. Patient has trach connected to vent. Patient also has PEG. Continue per consultants. Medication list reviewed. November 24: Lab reviewed. Potassium IV given. Has tracheostomy to vent. Has PEG. Continue per consultants. November 23: Labs reviewed. Creatinine higher to 1.4. Due for trach today. Suggest to stop IV Lasix. November 22: Renal parameters stable. Medication list reviewed. Continue same management per consultants. November 21: Renal parameters stable. On IV Lasix. Edematous. Will order few doses of albumin 25%. Continue per consultants. November 20: Repeat serum potassium again normal. Renal parameters normal. Continue per consultants. November 19: Repeat serum potassium normal. Renal parameters within normal limit. Continue per consultants. November 18: Levemir stopped since IV fluid and dexamethasone are discontinued and patient blood sugar went down. Renal parameters are stable. Continues to be on ventilator. Previously: Renal parameters stable Weaning is being attempted patient's urine output is low. We will give a trial of albumin and Lasix, As needed Discussed with RN Stop IV to D5W 75 cc an hour Levemir 20 units subcu every 12 hours Kayexalate for high potassium as needed Monitor electrolytes and renal parameters Tight blood sugar control, long-acting insulin as needed Keep the blood pressure in check Per orders Subjective ROS Limited/Unobtainable: Yes Objective Objective Last 24 Hour Vital Signs Date Time Temp Pulse Resp B/P (MAP) Pulse Ox O2 Delivery O2 Flow Rate FiO2 12/06/19 12:00 40 12/06/19 12:00 Mechanical Ventilator Mechanical Ventilator 12/06/19 10:52 71 20 40 12/06/19 09:14 108 32 40 12/06/19 08:20 97 12/06/19 08:16 90 124/76 12/06/19 08:00 40 12/06/19 08:00 Mechanical Ventilator Mechanical Ventilator 12/06/19 07:52 99.5 90 28 124/76 (92) 100 12/06/19 07:07 107 27 40 12/06/19 04:58 92 22 40 12/06/19 04:00 97.9 86 24 126/78 (94) 100 12/06/19 04:00 Mechanical Ventilator Mechanical Ventilator 12/06/19 04:00 40 12/06/19 03:33 92 12/06/19 02:50 78 20 40 12/06/19 01:15 80 24 40 12/06/19 00:00 40 12/06/19 00:00 Mechanical Ventilator Mechanical Ventilator 12/05/19 23:53 98.1 83 21 95/53 (67) 99 12/05/19 23:35 76 12/05/19 22:58 83 25 40 12/05/19 20:54 93 153/92 12/05/19 20:47 74 22 40 12/05/19 20:00 40 12/05/19 20:00 98.0 84 21 131/75 (93) 98 12/05/19 20:00 Mechanical Ventilator Mechanical Ventilator 12/05/19 19:23 89 12/05/19 19:04 77 24 40 12/05/19 17:10 72 23 40 12/05/19 16:00 Mechanical Ventilator Mechanical Ventilator 12/05/19 16:00 98.2 86 25 131/81 (98) 100 12/05/19 16:00 40 12/05/19 15:26 79 8/15/20 15:05 76 27 40 12/05/19 12:40 70 26 40 Intake and Output 12/05/19 12/06/19 19:00 07:00 Intake Total 750 ml 650 ml Output Total 700 ml 950 ml Balance 50 ml -300 ml Free Water 200 ml Tube Feeding 550 ml 650 ml Output Urine Total 600 ml 650 ml Stool Total 100 ml 300 ml # Voids 1 No can panel today laboratory Tests 12/05/19 17:02: POC Whole Blood Glucose 86 12/05/19 17:31: POC Whole Blood Glucose 96 12/06/19 08:12: POC Whole Blood Glucose 141H 12/06/19 11:06: POC Whole Blood Glucose 154H Height (Feet): 5 Height (Inches): 1.00 Weight (Pounds): 277 General Appearance: no apparent distress EENT: other - Trach to vent Cardiovascular: tachycardia Respiratory/Chest: decreased breath sounds Abdomen: distended Papa Young MD Dec 06, 2019 12:32
--- NOTE | 2019-12-06 13:10 | Infectious Diseases Prog Note ---
Assessment/Plan Assessment/Plan A: 1. COVID-19 pneumonia. 2. Diabetes mellitus 3. Hypertension. 4. Hypoxic respiratory failure 5. Morbid obesity 6. C. difficile colitis 7. Lactic acidosis 8. Anemia 9. Leukocytosis improving 10. Pneumonia with MSSA, Proteus & Enterobacter treated PLAN: 1. Finished Remdesivir 2. Continue oral Vancomycin X 4 days 3. Case was D/W RN & arnp Subjective ROS Limited/Unobtainable: Yes Gastrointestinal/Abdominal: Reports: diarrhea Allergies: Coded Allergies: No Known Allergies (Unverified , 11/06/19) Objective Last 24 Hour Vital Signs Date Time Temp Pulse Resp B/P (MAP) Pulse Ox O2 Delivery O2 Flow Rate FiO2 12/06/19 12:00 40 12/06/19 12:00 Mechanical Ventilator Mechanical Ventilator 12/06/19 10:52 71 20 40 12/06/19 09:14 108 32 40 12/06/19 08:20 97 12/06/19 08:16 90 124/76 12/06/19 08:00 40 12/06/19 08:00 Mechanical Ventilator Mechanical Ventilator 12/06/19 07:52 99.5 90 28 124/76 (92) 100 12/06/19 07:07 107 27 40 12/06/19 04:58 92 22 40 12/06/19 04:00 97.9 86 24 126/78 (94) 100 12/06/19 04:00 Mechanical Ventilator Mechanical Ventilator 12/06/19 04:00 40 12/06/19 03:33 92 12/06/19 02:50 78 20 40 12/06/19 01:15 80 24 40 12/06/19 00:00 40 12/06/19 00:00 Mechanical Ventilator Mechanical Ventilator 12/05/19 23:53 98.1 83 21 95/53 (67) 99 12/05/19 23:35 76 12/05/19 22:58 83 25 40 12/05/19 20:54 93 153/92 12/05/19 20:47 74 22 40 12/05/19 20:00 40 12/05/19 20:00 98.0 84 21 131/75 (93) 98 12/05/19 20:00 Mechanical Ventilator Mechanical Ventilator 12/05/19 19:23 89 12/05/19 19:04 77 24 40 12/05/19 17:10 72 23 40 12/05/19 16:00 Mechanical Ventilator Mechanical Ventilator 12/05/19 16:00 98.2 86 25 131/81 (98) 100 12/05/19 16:00 40 12/05/19 15:26 79 12/05/19 15:05 76 27 40 Height (Feet): 5 Height (Inches): 1.00 Weight (Pounds): 277 HEENT: status post trach Respiratory/Chest: lungs clear, other - on ventilator Cardiovascular: normal rate Abdomen: soft, non tender, other - GT & rectal tube Extremities: other - generalized edema Neurologic/Psychiatric: alert, responsive Laboratory Tests Test 12/05/19 17:02 12/05/19 17:31 12/06/19 08:12 12/06/19 11:06 POC Whole Blood Glucose 86 MG/DL (74-106) 96 MG/DL (74-106) 141 MG/DL (74-106) H 154 MG/DL (74-106) H Current Medications Medications (Trade) Dose Ordered Sig/Robyn Route PRN Reason Start Time Stop Time Status Last Admin Dose Admin Acetaminophen (Tylenol) 650 mg Q4H PRN GT For Pain 11/30/19 17:45 12/30/19 17:44 11/30/19 18:24 Acetaminophen (Tylenol) 650 mg Q6H PRN GT Temp >100.5 11/29/19 15:00 12/12/19 14:59 12/05/19 00:06 Amiodarone HCl (Cordarone) 200 mg DAILY GT 12/04/19 09:00 02/18/20 09:29 12/06/19 08:15 Clonidine HCl (Catapres Tab) 0.1 mg Q4H PRN GT For High Blood Pressure 11/29/19 14:30 02/09/20 14:29 Dextrose (Dextrose 50%) 25 ml Q30M PRN IV Hypoglycemia 11/29/19 14:15 02/21/20 06:44 Dextrose (Dextrose 50%) 50 ml Q30M PRN IV Hypoglycemia 11/29/19 14:15 02/21/20 06:44 Famotidine (Pepcid) 20 mg BID GT 11/29/19 18:00 02/26/20 17:59 12/06/19 08:15 Folic Acid (Folate) 2 mg DAILY GT 11/30/19 09:00 12/15/19 08:59 12/06/19 08:16 Insulin Aspart (NovoLOG) EVERY 6 HOURS SUBQ 11/29/19 18:00 02/11/20 20:59 12/05/19 11:35 Insulin Detemir (Levemir) 10 units BID SUBQ 12/01/19 09:00 02/21/20 08:59 12/06/19 08:15 Lorazepam (Ativan 2mg/ml 1ml) 2 mg Q3H PRN IV For Anxiety 12/03/19 21:45 12/10/19 21:44 12/06/19 05:58 Metolazone (Zaroxolyn) 2.5 mg DAILY GT 11/30/19 09:00 12/28/19 09:29 12/06/19 08:15 Metoprolol Tartrate (Lopressor) 25 mg Q12HR GT 11/29/19 21:00 02/18/20 09:29 12/06/19 08:16 Vancomycin HCl (Firvanq) 125 mg FOUR TIMES A DAY GT 12/01/19 13:00 12/10/19 23:59 12/06/19 08:15 Jose Hernandez MD Dec 06, 2019 13:10
--- NOTE | 2019-12-06 13:26 | Pulmonology Progress Note ---
Subjective ROS Limited/Unobtainable: Yes Interval Events: Re-intubated on 11/19/19; Status post tracheostomy 11/24/2019 Constitutional: Denies: fever HEENT: Repors: no symptoms Respiratory: Reports: dry cough, shortness of breath Cardiovascular: Reports: no symptoms Gastrointestinal/Abdominal: Reports: diarrhea Musculoskeletal: Denies: pain Allergies: Coded Allergies: No Known Allergies (Unverified , 11/06/19) All Systems: reviewed and negative except above Objective Last 24 Hour Vital Signs Date Time Temp Pulse Resp B/P (MAP) Pulse Ox O2 Delivery O2 Flow Rate FiO2 12/06/19 12:00 40 12/06/19 12:00 Mechanical Ventilator Mechanical Ventilator 12/06/19 10:52 71 20 40 12/06/19 09:14 108 32 40 12/06/19 08:20 97 12/06/19 08:16 90 124/76 12/06/19 08:00 40 12/06/19 08:00 Mechanical Ventilator Mechanical Ventilator 12/06/19 07:52 99.5 90 28 124/76 (92) 100 12/06/19 07:07 107 27 40 12/06/19 04:58 92 22 40 12/06/19 04:00 97.9 86 24 126/78 (94) 100 12/06/19 04:00 Mechanical Ventilator Mechanical Ventilator 12/06/19 04:00 40 12/06/19 03:33 92 12/06/19 02:50 78 20 40 12/06/19 01:15 80 24 40 12/06/19 00:00 40 12/06/19 00:00 Mechanical Ventilator Mechanical Ventilator 12/05/19 23:53 98.1 83 21 95/53 (67) 99 12/05/19 23:35 76 12/05/19 22:58 83 25 40 12/05/19 20:54 93 153/92 12/05/19 20:47 74 22 40 12/05/19 20:00 40 12/05/19 20:00 98.0 84 21 131/75 (93) 98 12/05/19 20:00 Mechanical Ventilator Mechanical Ventilator 12/05/19 19:23 89 12/05/19 19:04 77 24 40 12/05/19 17:10 72 23 40 12/05/19 16:00 Mechanical Ventilator Mechanical Ventilator 12/05/19 16:00 98.2 86 25 131/81 (98) 100 12/05/19 16:00 40 12/05/19 15:26 79 12/05/19 15:05 76 27 40 Intake and Output 12/05/19 12/06/19 19:00 07:00 Intake Total 750 ml 650 ml Output Total 700 ml 950 ml Balance 50 ml -300 ml Free Water 200 ml Tube Feeding 550 ml 650 ml Output Urine Total 600 ml 650 ml Stool Total 100 ml 300 ml # Voids 1 General Appearance: no acute distress HEENT: normocephalic, status post trach Respiratory: decreased breath sounds Cardiovascular: normal peripheral pulses Abdomen: normal bowel sounds Extremities: no cyanosis Laboratory Tests 12/05/19 17:02: POC Whole Blood Glucose 86 12/05/19 17:31: POC Whole Blood Glucose 96 12/06/19 08:12: POC Whole Blood Glucose 141H 12/06/19 11:06: POC Whole Blood Glucose 154H Current Medications Medications (Trade) Dose Ordered Sig/Robyn Route PRN Reason Start Time Stop Time Status Last Admin Dose Admin Acetaminophen (Tylenol) 650 mg Q4H PRN GT For Pain 11/30/19 17:45 12/30/19 17:44 11/30/19 18:24 Acetaminophen (Tylenol) 650 mg Q6H PRN GT Temp >100.5 11/29/19 15:00 12/12/19 14:59 12/05/19 00:06 Amiodarone HCl (Cordarone) 200 mg DAILY GT 12/04/19 09:00 02/18/20 09:29 12/06/19 08:15 Clonidine HCl (Catapres Tab) 0.1 mg Q4H PRN GT For High Blood Pressure 11/29/19 14:30 02/09/20 14:29 Dextrose (Dextrose 50%) 25 ml Q30M PRN IV Hypoglycemia 11/29/19 14:15 02/21/20 06:44 Dextrose (Dextrose 50%) 50 ml Q30M PRN IV Hypoglycemia 11/29/19 14:15 02/21/20 06:44 Famotidine (Pepcid) 20 mg BID GT 11/29/19 18:00 02/26/20 17:59 12/06/19 08:15 Folic Acid (Folate) 2 mg DAILY GT 11/30/19 09:00 12/15/19 08:59 12/06/19 08:16 Insulin Aspart (NovoLOG) EVERY 6 HOURS SUBQ 11/29/19 18:00 02/11/20 20:59 12/06/19 13:14 Insulin Detemir (Levemir) 10 units BID SUBQ 12/01/19 09:00 02/21/20 08:59 12/06/19 08:15 Lorazepam (Ativan 2mg/ml 1ml) 2 mg Q3H PRN IV For Anxiety 12/03/19 21:45 12/10/19 21:44 12/06/19 05:58 Metolazone (Zaroxolyn) 2.5 mg DAILY GT 11/30/19 09:00 12/28/19 09:29 12/06/19 08:15 Metoprolol Tartrate (Lopressor) 25 mg Q12HR GT 11/29/19 21:00 02/18/20 09:29 12/06/19 08:16 Vancomycin HCl (Firvanq) 125 mg FOUR TIMES A DAY GT 12/01/19 13:00 12/10/19 23:59 12/06/19 13:13 Assessment/Plan Assessment/Plan Pulmonary Progress Note Subjective ROS Limited/Unobtainable: No Interval Events: Re-intubated on 11/19/19; Status post tracheostomy 11/24/2019 Constitutional: Denies: fever HEENT: Repors: no symptoms Respiratory: Reports: dry cough, shortness of breath Cardiovascular: Reports: no symptoms Gastrointestinal/Abdominal: Reports: diarrhea Allergies: Coded Allergies: No Known Allergies (Unverified , 11/06/19) All Systems: reviewed and negative except above Objective Vital Signs Noted General Appearance: no acute distress, on ventilator HEENT: normocephalic, status post trach Respiratory: decreased breath sounds Cardiovascular: normal peripheral pulses Abdomen: normal bowel sounds Extremities: no cyanosis Laboratory Tests moted Assessment/Plan IMPRESSION: 1. COVID-19 pneumonia. 2. Diabetes mellitus and hypertension. 3. Lactic acidemia. 4. Epistaxis 5. Respiratory failure; failed extubation 6. S/p trach/PEG DISCUSSION: ID following status post tracheostomy Wean as toletrated S/p PEG Dc planning to sub-acute Inderjit Hunter MD Dec 06, 2019 13:26
--- NOTE | 2019-12-06 13:59 | Cardiac Electrophysiology PN ---
Assessment/Plan Assessment/Plan 1. Paroxysmal atrial fibrillation. On metoprolol 25 bid and Amiodarone 200 daily Off anticoagulation for hematuria and black stool EF 55% on echo. 2. S/P Shock. Off pressors. 3. COVID positive pneumonia. Now off isolation 4. Diabetes, on insulin. 5. Respiratory failure on the Vent. S/P Tracheostomy 11/24/19 6. S/P Massive nasal bleed. 7. Severe LE edema.On Metolazone 8. Dysphagia, S/P PEG 11/25/19 [address]. C Diff. FU Dr Hernandez DW Dr. Hernandez and RN Subjective Subjective On the vent with 40% Fio2. Off Covid isolation. Able to verbalize and alert S/P tracheostomy 11/24/19 and PEG 11/25/19. Trach leaking In atrial fib rate controlled on Lopressor 25 bid. Now is having diarrhea and positive for C Diff. Objective Last 24 Hour Vital Signs Date Time Temp Pulse Resp B/P (MAP) Pulse Ox O2 Delivery O2 Flow Rate FiO2 12/06/19 13:02 81 24 40 12/06/19 12:00 40 12/06/19 12:00 Mechanical Ventilator Mechanical Ventilator 12/06/19 10:52 71 20 40 12/06/19 09:14 108 32 40 12/06/19 08:20 97 12/06/19 08:16 90 124/76 12/06/19 08:00 40 12/06/19 08:00 Mechanical Ventilator Mechanical Ventilator 12/06/19 07:52 99.5 90 28 124/76 (92) 100 12/06/19 07:07 107 27 40 12/06/19 04:58 92 22 40 12/06/19 04:00 97.9 86 24 126/78 (94) 100 12/06/19 04:00 Mechanical Ventilator Mechanical Ventilator 12/06/19 04:00 40 12/06/19 03:33 92 12/06/19 02:50 78 20 40 12/06/19 01:15 80 24 40 12/06/19 00:00 40 12/06/19 00:00 Mechanical Ventilator Mechanical Ventilator 12/05/19 23:53 98.1 83 21 95/53 (67) 99 12/05/19 23:35 76 12/05/19 22:58 83 25 40 8/15/20 20:54 93 153/92 12/05/19 20:47 74 22 40 12/05/19 20:00 40 12/05/19 20:00 98.0 84 21 131/75 (93) 98 12/05/19 20:00 Mechanical Ventilator Mechanical Ventilator 12/05/19 19:23 89 12/05/19 19:04 77 24 40 12/05/19 17:10 72 23 40 12/05/19 16:00 Mechanical Ventilator Mechanical Ventilator 12/05/19 16:00 98.2 86 25 131/81 (98) 100 12/05/19 16:00 40 12/05/19 15:26 79 12/05/19 15:05 76 27 40 Intake and Output 12/05/19 12/06/19 19:00 07:00 Intake Total 750 ml 650 ml Output Total 700 ml 950 ml Balance 50 ml -300 ml Free Water 200 ml Tube Feeding 550 ml 650 ml Output Urine Total 600 ml 650 ml Stool Total 100 ml 300 ml # Voids 1 Laboratory Tests Test 12/05/19 17:02 12/05/19 17:31 12/06/19 08:12 12/06/19 11:06 POC Whole Blood Glucose 86 MG/DL (74-106) 96 MG/DL (74-106) 141 MG/DL (74-106) H 154 MG/DL (74-106) H Objective HEAD AND NECK: No JVD. Tracheostomy in place. LUNGS: Coarse rhonchi. CARDIOVASCULAR: Irregularly irregular. S1 and S2 with no gallop or murmur. ABDOMEN: Soft.PEG EXTREMITIES: 2 plus pitting edema. Gabe Snell MD Dec 06, 2019 13:59
[2019-12-06 16:00] VITALS: BP 136/80
[2019-12-06 20:00] VITALS: BP 134/73
--- NOTE | 2019-12-06 23:56 | General Progress Note ---
Assessment/Plan Problem List: (1) Weak ICD Codes: R53.1 - Weakness SNOMED: 96284234 (2) UTI (urinary tract infection) ICD Codes: N39.0 - Urinary tract infection, site not specified SNOMED: 58973939 (3) Respiratory failure ICD Codes: J96.90 - Respiratory failure, unspecified, unspecified whether with hypoxia or hypercapnia SNOMED: 623351591 (4) Electrolyte imbalance ICD Codes: E87.8 - Other disorders of electrolyte and fluid balance, not elsewhere classified SNOMED: 698175479 (5) Fluid overload ICD Codes: E87.70 - Fluid overload, unspecified SNOMED: 07746581 (6) Diabetes ICD Codes: E11.9 - Type 2 diabetes mellitus without complications SNOMED: 63965484 (7) CHF (congestive heart failure) ICD Codes: I50.9 - Heart failure, unspecified SNOMED: 20592773 (8) Hypoxia ICD Codes: R09.02 - Hypoxemia SNOMED: 856650300 (9) Afib ICD Codes: I48.91 - Unspecified atrial fibrillation SNOMED: 10542320 (10) Multifocal pneumonia ICD Codes: J18.9 - Pneumonia, unspecified organism SNOMED: 930123163 Status: stable, progressing Assessment/Plan: late entry: afebrile no change check sugar reveiwed chart and labs chf Subjective ROS Limited/Unobtainable: Yes Allergies: Coded Allergies: No Known Allergies (Unverified , 11/06/19) Objective Last 24 Hour Vital Signs Date Time Temp Pulse Resp B/P (MAP) Pulse Ox O2 Delivery O2 Flow Rate FiO2 12/06/19 21:21 79 21 40 12/06/19 21:04 87 134/73 12/06/19 20:00 98.2 87 21 134/73 (93) 100 12/06/19 20:00 Mechanical Ventilator Mechanical Ventilator 12/06/19 20:00 40 12/06/19 19:53 95 12/06/19 19:30 80 21 40 12/06/19 17:26 81 19 40 12/06/19 16:00 89 12/06/19 16:00 Mechanical Ventilator Mechanical Ventilator 12/06/19 16:00 40 12/06/19 16:00 100.0 95 25 136/80 (98) 100 12/06/19 14:40 76 27 40 12/06/19 13:02 81 24 40 12/06/19 12:00 98.4 90 28 142/78 (99) 99 12/06/19 12:00 40 12/06/19 12:00 Mechanical Ventilator Mechanical Ventilator 12/06/19 12:00 90 12/06/19 10:52 71 20 40 12/06/19 09:14 108 32 40 12/06/19 08:20 97 12/06/19 08:16 90 124/76 12/06/19 08:00 40 12/06/19 08:00 Mechanical Ventilator Mechanical Ventilator 12/06/19 07:52 99.5 90 28 124/76 (92) 100 12/06/19 07:07 107 27 40 12/06/19 04:58 92 22 40 12/06/19 04:00 97.9 86 24 126/78 (94) 100 12/06/19 04:00 Mechanical Ventilator Mechanical Ventilator 12/06/19 04:00 40 12/06/19 03:33 92 12/06/19 02:50 78 20 40 12/06/19 01:15 80 24 40 12/06/19 00:00 40 12/06/19 00:00 Mechanical Ventilator Mechanical Ventilator Intake and Output 12/05/19 12/06/19 19:00 07:00 Intake Total 750 ml 650 ml Output Total 700 ml 950 ml Balance 50 ml -300 ml Free Water 200 ml Tube Feeding 550 ml 650 ml Output Urine Total 600 ml 650 ml Stool Total 100 ml 300 ml # Voids 1 Laboratory Tests 12/06/19 08:12: POC Whole Blood Glucose 141H 12/06/19 11:06: POC Whole Blood Glucose 154H 12/06/19 17:36: POC Whole Blood Glucose 109H Height (Feet): 5 Height (Inches): 1.00 Weight (Pounds): 277 Darius Real MD Dec 06, 2019 23:56
[2019-12-07] VITALS: BP 123/76
[2019-12-07 04:00] VITALS: BP 133/83
[2019-12-07] MEDS: NovoLOG Insulin Flexpen SUBQ SCH ×5 (06:00→23:32)
--- NOTE | 2019-12-07 06:31 | General Progress Note ---
Assessment/Plan Problem List: (1) Hypoxia ICD Codes: R09.02 - Hypoxemia SNOMED: 062964513 (2) CHF (congestive heart failure) ICD Codes: I50.9 - Heart failure, unspecified SNOMED: 43405680 (3) Diabetes ICD Codes: E11.9 - Type 2 diabetes mellitus without complications SNOMED: 63753038 (4) Fluid overload ICD Codes: E87.70 - Fluid overload, unspecified SNOMED: 91935360 (5) 2019 novel coronavirus disease (COVID-19) ICD Codes: U07.1 - COVID-19 SNOMED: 764984274 Status: stable, progressing Assessment/Plan: continue Levemir 10 units bid continue Novolog sliding scale every 6 hours hypoglycemia protocol in order repeat thyroid function improved - no need for thyroid medication Subjective ROS Limited/Unobtainable: Yes Allergies: Coded Allergies: No Known Allergies (Unverified , 11/06/19) Subjective events noted glucose values are stable intubated TF tolerated Item Value Date Time Bedside Blood Glucose 109 mg/dl 12/07/19 0606 Bedside Blood Glucose 100 mg/dl 12/07/19 0000 Bedside Blood Glucose 154 mg/dl H 12/06/19 1800 Bedside Blood Glucose 154 mg/dl H 12/06/19 1314 Bedside Blood Glucose 141 mg/dl H 12/06/19 0815 Bedside Blood Glucose 123 mg/dl H 12/06/19 0628 Bedside Blood Glucose 111 mg/dl 12/06/19 0019 Objective Last 24 Hour Vital Signs Date Time Temp Pulse Resp B/P (MAP) Pulse Ox O2 Delivery O2 Flow Rate FiO2 12/07/19 05:30 90 22 40 12/07/19 04:00 98.2 93 18 133/83 (100) 99 12/07/19 04:00 40 12/07/19 04:00 Mechanical Ventilator Mechanical Ventilator 12/07/19 03:42 85 12/07/19 03:20 87 19 40 12/07/19 01:20 87 22 40 12/07/19 00:00 Mechanical Ventilator Mechanical Ventilator 12/07/19 00:00 98.4 98 20 123/76 (92) 100 12/07/19 00:00 40 12/06/19 23:33 92 12/06/19 23:20 88 21 40 12/06/19 21:21 79 21 40 12/06/19 21:04 87 134/73 12/06/19 20:00 98.2 87 21 134/73 (93) 100 12/06/19 20:00 Mechanical Ventilator Mechanical Ventilator 12/06/19 20:00 40 12/06/19 19:53 95 12/06/19 19:30 80 21 40 12/06/19 17:26 81 19 40 12/06/19 16:00 89 12/06/19 16:00 Mechanical Ventilator Mechanical Ventilator 12/06/19 16:00 40 12/06/19 16:00 100.0 95 25 136/80 (98) 100 12/06/19 14:40 76 27 40 12/06/19 13:02 81 24 40 12/06/19 12:00 98.4 90 28 142/78 (99) 99 12/06/19 12:00 40 12/06/19 12:00 Mechanical Ventilator Mechanical Ventilator 12/06/19 12:00 90 12/06/19 10:52 71 20 40 12/06/19 09:14 108 32 40 12/06/19 08:20 97 12/06/19 08:16 90 124/76 12/06/19 08:00 40 12/06/19 08:00 Mechanical Ventilator Mechanical Ventilator 12/06/19 07:52 99.5 90 28 124/76 (92) 100 12/06/19 07:07 107 27 40 Intake and Output 12/06/19 12/07/19 19:00 07:00 Intake Total 750 ml Output Total 350 ml Balance 400 ml Free Water 50 ml Tube Feeding 600 ml Blood Product 100 ml Output Urine Total 350 ml # Voids 1 Laboratory Tests 12/06/19 08:12: POC Whole Blood Glucose 141H 12/06/19 11:06: POC Whole Blood Glucose 154H 12/06/19 17:36: POC Whole Blood Glucose 109H Height (Feet): 5 Height (Inches): 1.00 Weight (Pounds): 277 Objective Current Medications Medications (Trade) Dose Ordered Sig/Robyn Route PRN Reason Start Time Stop Time Status Last Admin Dose Admin Acetaminophen (Tylenol) 650 mg Q4H PRN GT For Pain 11/30/19 17:45 12/30/19 17:44 11/30/19 18:24 Acetaminophen (Tylenol) 650 mg Q6H PRN GT Temp >100.5 11/29/19 15:00 12/12/19 14:59 12/05/19 00:06 Amiodarone HCl (Cordarone) 200 mg DAILY GT 12/04/19 09:00 02/18/20 09:29 12/06/19 08:15 Clonidine HCl (Catapres Tab) 0.1 mg Q4H PRN GT For High Blood Pressure 11/29/19 14:30 02/09/20 14:29 Dextrose (Dextrose 50%) 25 ml Q30M PRN IV Hypoglycemia 11/29/19 14:15 02/21/20 06:44 Dextrose (Dextrose 50%) 50 ml Q30M PRN IV Hypoglycemia 11/29/19 14:15 02/21/20 06:44 Famotidine (Pepcid) 20 mg BID GT 11/29/19 18:00 02/26/20 17:59 12/06/19 17:50 Folic Acid (Folate) 2 mg DAILY GT 11/30/19 09:00 12/15/19 08:59 12/06/19 08:16 Insulin Aspart (NovoLOG) EVERY 6 HOURS SUBQ 11/29/19 18:00 02/11/20 20:59 12/06/19 13:14 Insulin Detemir (Levemir) 10 units BID SUBQ 12/01/19 09:00 02/21/20 08:59 12/06/19 17:38 Lorazepam (Ativan 2mg/ml 1ml) 2 mg Q3H PRN IV For Anxiety 12/03/19 21:45 12/10/19 21:44 12/06/19 05:58 Metolazone (Zaroxolyn) 2.5 mg DAILY GT 11/30/19 09:00 12/28/19 09:29 12/06/19 08:15 Metoprolol Tartrate (Lopressor) 25 mg Q12HR GT 11/29/19 21:00 02/18/20 09:29 12/06/19 21:04 Vancomycin HCl (Firvanq) 125 mg FOUR TIMES A DAY GT 12/01/19 13:00 12/10/19 23:59 12/06/19 21:03 Alphonse Ojeda MD Dec 07, 2019 06:31
[2019-12-07 06:49] LABS: EOSINOPHILS % (AUTO) 1.6 % (0.0-3.0); HEMATOCRIT 32.3 % (37.0-47.0); HEMOGLOBIN 9.6 G/DL (12.0-16.0); LYMPHOCYTES % (AUTO) 10.6 % (20.0-45.0); MEAN CORPUSCULAR VOLUME 89 FL (80-99); MONOCYTES % (AUTO) 6.9 % (1.0-10.0); NEUTROPHILS % (AUTO) 79.9 % (45.0-75.0); PLATELET COUNT 327 K/UL (150-450); RED BLOOD COUNT 3.62 M/UL (4.20-5.40); RED CELL DISTRIBUTION WIDTH 19.1 % (11.6-14.8)
--- NOTE | 2019-12-07 06:56 | Hematology/Onc Progress Note ---
Assessment/Plan Assessment/Plan # Anemia of chronic disease due to underlying chronic medical issues, multifactorial v Gi bleed in this case likely related covid19+++++++++ --> Anemia workup has been ordered, rule out gi bleed --> No evidence of hemolysis is noted, peripheral smear has been reviewed. --> Hgb goal >7. Transfuse prn. --> Epogen or iron at this time is not particularly indicated --> Medications have been reviewed --> low threshold for gi evaluation in case has occult + --> hgb 10-->9.8-->9.2-->9.7-->10.7->10->11->10.2->10.6->9.4->10.8->9.8-->10->10 -->9.2->9 # Leukocytosis/elevated white blood cell count, unspecified likely related to covid19 --> have reviewed peripheral smear and bandemia/neutrophilia noted --> continue antibiotics if they have been started by ID team zosyn --> on remdesivir, dexamathasone --> monitor for resolution --> wbc 12->11-->11-->13->16-->21-->17-->14-->14->13-->11 # COVID 19 pneumonia --> on vent --> respiratory failure --> s/p vent reintubation 11/08 --> 11/23 trach was done # Diabetes mellitus --> iss and bs goal <140 # Dysphagia --> peg 11/24 # Hypertension --> sbp goal <150 # Dvt ppx scds Appreciate consultation and jimena RN Subjective HEENT: Denies: no symptoms, eye pain, blurred vision, tearing, double vision, ear pain, ear discharge, nose pain, nose congestion, throat pain, throat swelling, mouth pain, mouth swelling, other Cardiovascular: Denies: no symptoms, chest pain, edema, irregular heart rate, lightheadedness, palpitations, syncope, other Gastrointestinal/Abdominal: Denies: no symptoms, abdomen distended, abdominal pain, black stools, tarry stools, blood in stool, constipated, diarrhea, difficulty swallowing, nausea, poor appetite, poor fluid intake, rectal bleeding , vomiting, other Genitourinary: Denies: no symptoms, burning, discharge, frequency, flank pain, hematuria, incontinence, pain, urgency, other Neurologic/Psychiatric: Denies: no symptoms, anxiety, depressed, emotional problems, headache, numbness, paresthesia, pre-existing deficit, seizure, tingling, tremors, weakness, other Endocrine: Denies: no symptoms, excessive sweating, flushing, intolerance to cold, intolerance to heat, increased hunger, increased thirst, increased urine, unexplained weight gain, unexplained weight loss, other Allergies: Coded Allergies: No Known Allergies (Unverified , 11/06/19) Subjective 11/09 weaning prn, meds reviewed, labs noted, hgb 9.2 11/10 on vent, no bleeding, hgb remains low, jimena Rn Jose R in am 11/11 on vent, fluids, ogf tube as well, labs pending in am 11/12 remains altered, no bleeding, labs reviewed, cbc noted 11/13 attempted weaning, but did not do well, no bleeding, hgb 10 11/14 intubated, weaning, on vent, with og, labs noted, abx 11/15 labs noted, no bleedign, weaning protocol, no night sweats, elev wbc, with fevers 11/16 no bleeding, jimena Broussard rn in the am, on vent, weaning but failed 11/17 meds reviewed, no night sweats, jimena rn, no bleeding 11/18 extubated, on nc at this time, no bleeding, meds reviewed 11/19 labs noted, no bleeding, on vent again, weaning 11/21 labs reviewed, hgb 9.4, no hemolysis, very difficult to obtain repeat lab draw in am 11/22 unable to wean vent, labs noted, plan for trach tomorrow, on fentanyl, still edematous 11/23 is for trach today and peg tomorrow, stil edematous, on lasix gtt 11/24 meds noted, no bleeding, on vent, for peg this am, trach functional 11/25 labs reviewed, no bleeding, meds noted, obtunded, hr better 11/26 picc line continues to leak, no bleeding, labs noted, low grade fever, id aware 12/03 remains altered, labs noted, no bleeding, hgb remains low, tmax 99.7f 12/04 no bleeding, left foot swollen, for duplex lower ext r/o dvt 12/05 is to have duplex for tomorrow, otherwise no changes, for cbc this am, jimena Dsouza Rn 12/06 asleep is on vent, with rectal tube, and gtube, labs ordered Objective Objective Current Medications Medications (Trade) Dose Ordered Sig/Robyn Route PRN Reason Start Time Stop Time Status Last Admin Dose Admin Acetaminophen (Tylenol) 650 mg Q4H PRN GT For Pain 11/30/19 17:45 12/30/19 17:44 11/30/19 18:24 Acetaminophen (Tylenol) 650 mg Q6H PRN GT Temp >100.5 11/29/19 15:00 12/12/19 14:59 12/05/19 00:06 Amiodarone HCl (Cordarone) 200 mg DAILY GT 12/04/19 09:00 02/18/20 09:29 12/06/19 08:15 Clonidine HCl (Catapres Tab) 0.1 mg Q4H PRN GT For High Blood Pressure 11/29/19 14:30 02/09/20 14:29 Dextrose (Dextrose 50%) 25 ml Q30M PRN IV Hypoglycemia 11/29/19 14:15 02/21/20 06:44 Dextrose (Dextrose 50%) 50 ml Q30M PRN IV Hypoglycemia 11/29/19 14:15 02/21/20 06:44 Famotidine (Pepcid) 20 mg BID GT 11/29/19 18:00 02/26/20 17:59 12/06/19 17:50 Folic Acid (Folate) 2 mg DAILY GT 11/30/19 09:00 12/15/19 08:59 12/06/19 08:16 Insulin Aspart (NovoLOG) EVERY 6 HOURS SUBQ 11/29/19 18:00 02/11/20 20:59 12/06/19 13:14 Insulin Detemir (Levemir) 10 units BID SUBQ 12/01/19 09:00 02/21/20 08:59 12/06/19 17:38 Lorazepam (Ativan 2mg/ml 1ml) 2 mg Q3H PRN IV For Anxiety 12/03/19 21:45 12/10/19 21:44 12/06/19 05:58 Metolazone (Zaroxolyn) 2.5 mg DAILY GT 11/30/19 09:00 12/28/19 09:29 12/06/19 08:15 Metoprolol Tartrate (Lopressor) 25 mg Q12HR GT 11/29/19 21:00 02/18/20 09:29 12/06/19 21:04 Vancomycin HCl (Firvanq) 125 mg FOUR TIMES A DAY GT 12/01/19 13:00 12/10/19 23:59 12/06/19 21:03 Last 24 Hour Vital Signs Date Time Temp Pulse Resp B/P (MAP) Pulse Ox O2 Delivery O2 Flow Rate FiO2 12/07/19 05:30 90 22 40 12/07/19 04:00 98.2 93 18 133/83 (100) 99 12/07/19 04:00 40 12/07/19 04:00 Mechanical Ventilator Mechanical Ventilator 12/07/19 03:42 85 12/07/19 03:20 87 19 40 12/07/19 01:20 87 22 40 12/07/19 00:00 Mechanical Ventilator Mechanical Ventilator 12/07/19 00:00 98.4 98 20 123/76 (92) 100 12/07/19 00:00 40 12/06/19 23:33 92 12/06/19 23:20 88 21 40 12/06/19 21:21 79 21 40 12/06/19 21:04 87 134/73 12/06/19 20:00 98.2 87 21 134/73 (93) 100 12/06/19 20:00 Mechanical Ventilator Mechanical Ventilator 12/06/19 20:00 40 12/06/19 19:53 95 12/06/19 19:30 80 21 40 12/06/19 17:26 81 19 40 12/06/19 16:00 89 12/06/19 16:00 Mechanical Ventilator Mechanical Ventilator 12/06/19 16:00 40 12/06/19 16:00 100.0 95 25 136/80 (98) 100 12/06/19 14:40 76 27 40 12/06/19 13:02 81 24 40 12/06/19 12:00 98.4 90 28 142/78 (99) 99 12/06/19 12:00 40 12/06/19 12:00 Mechanical Ventilator Mechanical Ventilator 12/06/19 12:00 90 12/06/19 10:52 71 20 40 12/06/19 09:14 108 32 40 12/06/19 08:20 97 12/06/19 08:16 90 124/76 12/06/19 08:00 40 12/06/19 08:00 Mechanical Ventilator Mechanical Ventilator 12/06/19 07:52 99.5 90 28 124/76 (92) 100 12/06/19 07:07 107 27 40 12/06/19 04:58 92 22 40 12/06/19 04:00 97.9 86 24 126/78 (94) 100 12/06/19 04:00 Mechanical Ventilator Mechanical Ventilator 12/06/19 04:00 40 12/06/19 03:33 92 12/06/19 02:50 78 20 40 12/06/19 01:15 80 24 40 12/06/19 00:00 40 12/06/19 00:00 Mechanical Ventilator Mechanical Ventilator 12/05/19 23:53 98.1 83 21 95/53 (67) 99 12/05/19 23:35 76 12/05/19 22:58 83 25 40 12/05/19 20:54 93 153/92 12/05/19 20:47 74 22 40 12/05/19 20:00 40 12/05/19 20:00 98.0 84 21 131/75 (93) 98 12/05/19 20:00 Mechanical Ventilator Mechanical Ventilator 12/05/19 19:23 89 12/05/19 19:04 77 24 40 12/05/19 17:10 72 23 40 12/05/19 16:00 Mechanical Ventilator Mechanical Ventilator 12/05/19 16:00 98.2 86 25 131/81 (98) 100 12/05/19 16:00 40 12/05/19 15:26 79 12/05/19 15:05 76 27 40 12/05/19 12:40 70 26 40 12/05/19 12:00 80 12/05/19 12:00 40 12/05/19 12:00 Mechanical Ventilator Mechanical Ventilator 12/05/19 12:00 99.5 80 25 122/72 (89) 100 12/05/19 11:25 74 26 40 12/05/19 09:16 89 23 40 12/05/19 09:07 87 121/76 12/05/19 08:00 99.9 88 22 121/76 (91) 100 8/15/20 08:00 Mechanical Ventilator Mechanical Ventilator 12/05/19 08:00 40 12/05/19 07:41 77 24 40 12/05/19 07:40 76 Intake and Output 12/06/19 12/07/19 19:00 07:00 Intake Total 750 ml Output Total 350 ml Balance 400 ml Free Water 50 ml Tube Feeding 600 ml Blood Product 100 ml Output Urine Total 350 ml # Voids 1 Labs Test 12/04/19 12:06 12/04/19 16:26 12/05/19 00:05 12/05/19 03:20 POC Whole Blood Glucose 153 MG/DL (74-106) 158 MG/DL (74-106) 146 MG/DL (74-106) White Blood Count 8.3 K/UL (4.8-10.8) Red Blood Count 3.38 M/UL (4.20-5.40) Hemoglobin 9.0 G/DL (12.0-16.0) Hematocrit 30.0 % (37.0-47.0) Mean Corpuscular Volume 89 FL (80-99) Mean Corpuscular Hemoglobin 26.6 PG (27.0-31.0) Mean Corpuscular Hemoglobin Concent 30.0 G/DL (32.0-36.0) Red Cell Distribution Width 19.2 % (11.6-14.8) Platelet Count 344 K/UL (150-450) Mean Platelet Volume 5.9 FL (6.5-10.1) Neutrophils (%) (Auto) 79.9 % (45.0-75.0) Lymphocytes (%) (Auto) 12.2 % (20.0-45.0) Monocytes (%) (Auto) 5.4 % (1.0-10.0) Eosinophils (%) (Auto) 1.7 % (0.0-3.0) Basophils (%) (Auto) 0.9 % (0.0-2.0) Sodium Level 145 MMOL/L (136-145) Potassium Level 3.9 MMOL/L (3.5-5.1) Chloride Level 105 MMOL/L (98-107) Carbon Dioxide Level 36 MMOL/L (21-32) Anion Gap 4 mmol/L (5-15) Blood Urea Nitrogen 17 mg/dL (7-18) Creatinine 0.7 MG/DL (0.55-1.30) Estimat Glomerular Filtration Rate > 60 mL/min (>60) Glucose Level 143 MG/DL (74-106) Calcium Level 8.3 MG/DL (8.5-10.1) Test 12/05/19 05:18 12/05/19 08:51 12/05/19 11:32 12/05/19 17:02 POC Whole Blood Glucose 125 MG/DL (74-106) 140 MG/DL (74-106) 86 MG/DL (74-106) Test 12/05/19 17:31 12/06/19 08:12 12/06/19 11:06 12/06/19 17:36 POC Whole Blood Glucose 96 MG/DL (74-106) 141 MG/DL (74-106) 154 MG/DL (74-106) 109 MG/DL (74-106) Test 12/07/19 03:52 Height (Feet): 5 Height (Inches): 1.00 Weight (Pounds): 277 Objective Physical Exam: Vitals: reviewed General: NAD HEENT: nc, at Neck: supple Chest: clear breath sounds on vent++trach+ Cardiovascular: RRR, no s3, s4 Abdomen: soft, nontender, nd++peg Extremities: no cce, normal range of motion, left foot swelling+ Neuro: alert and oriented Ismael Fischer MD Dec 07, 2019 06:56
[2019-12-07 07:36] LABS: ALANINE AMINOTRANSFERASE 32 U/L (12-78); ALBUMIN 1.8 G/DL (3.4-5.0); ALBUMIN/GLOBULIN RATIO 0.4 (1.0-2.7); ALKALINE PHOSPHATASE 175 U/L (46-116); ANION GAP 6 mmol/L (5-15); ASPARTATE AMINO TRANSFERASE 39 U/L (15-37); BILIRUBIN,TOTAL 0.6 MG/DL (0.2-1.0); BLOOD UREA NITROGEN 17 mg/dL (7-18); CARBON DIOXIDE 36 MMOL/L (21-32); CHLORIDE 104 MMOL/L (98-107); CREATININE 0.5 MG/DL (0.55-1.30); PHOSPHORUS 3.5 MG/DL (2.5-4.9); POTASSIUM 3.8 MMOL/L (3.5-5.1); SODIUM 145 MMOL/L (136-145)
[2019-12-07 08:00] VITALS: BP 137/74
[2019-12-07] MEDS: Vancomycin oral 125mg/2.5ml GT SCH ×4 (08:34→21:16)
[2019-12-07] MEDS: Amiodarone 200mg tab GT SCH (08:34)
[2019-12-07] MEDS: metOLazone 2.5 MG TAB GT SCH (08:34)
[2019-12-07] MEDS: Levemir Flexpen SUBQ SCH ×2 (08:36→17:45)
--- NOTE | 2019-12-07 09:10 | General Progress Note ---
Assessment/Plan Problem List: (1) Respiratory failure ICD Codes: J96.90 - Respiratory failure, unspecified, unspecified whether with hypoxia or hypercapnia SNOMED: 223861423 (2) 2019 novel coronavirus disease (COVID-19) ICD Codes: U07.1 - COVID-19 SNOMED: 012312126 (3) Multifocal pneumonia ICD Codes: J18.9 - Pneumonia, unspecified organism SNOMED: 549227781 (4) Afib ICD Codes: I48.91 - Unspecified atrial fibrillation SNOMED: 37732115 (5) CHF (congestive heart failure) ICD Codes: I50.9 - Heart failure, unspecified SNOMED: 04985247 (6) Diabetes ICD Codes: E11.9 - Type 2 diabetes mellitus without complications SNOMED: 69413575 (7) Fluid overload ICD Codes: E87.70 - Fluid overload, unspecified SNOMED: 68502775 (8) Epistaxis ICD Codes: R04.0 - Epistaxis SNOMED: 396878026 Status: stable, progressing Assessment/Plan: fu H&H prn blood transfusion slow drop in H&H without obvious bleeding repeat stool ob GTF patient has rectal tube will fu Subjective ROS Limited/Unobtainable: No Allergies: Coded Allergies: No Known Allergies (Unverified , 11/06/19) Objective Last 24 Hour Vital Signs Date Time Temp Pulse Resp B/P (MAP) Pulse Ox O2 Delivery O2 Flow Rate FiO2 12/07/19 08:40 98 21 40 12/07/19 08:34 86 137/74 12/07/19 08:00 98.2 86 21 137/74 (95) 99 12/07/19 07:05 88 25 40 12/07/19 05:30 90 22 40 12/07/19 04:00 98.2 93 18 133/83 (100) 99 12/07/19 04:00 40 12/07/19 04:00 Mechanical Ventilator Mechanical Ventilator 12/07/19 03:42 85 12/07/19 03:20 87 19 40 12/07/19 01:20 87 22 40 12/07/19 00:00 Mechanical Ventilator Mechanical Ventilator 12/07/19 00:00 98.4 98 20 123/76 (92) 100 12/07/19 00:00 40 12/06/19 23:33 92 12/06/19 23:20 88 21 40 12/06/19 21:21 79 21 40 12/06/19 21:04 87 134/73 12/06/19 20:00 98.2 87 21 134/73 (93) 100 12/06/19 20:00 Mechanical Ventilator Mechanical Ventilator 12/06/19 20:00 40 12/06/19 19:53 95 12/06/19 19:30 80 21 40 12/06/19 17:26 81 19 40 12/06/19 16:00 89 12/06/19 16:00 Mechanical Ventilator Mechanical Ventilator 12/06/19 16:00 40 12/06/19 16:00 100.0 95 25 136/80 (98) 100 12/06/19 14:40 76 27 40 12/06/19 13:02 81 24 40 12/06/19 12:00 98.4 90 28 142/78 (99) 99 12/06/19 12:00 40 12/06/19 12:00 Mechanical Ventilator Mechanical Ventilator 12/06/19 12:00 90 12/06/19 10:52 71 20 40 12/06/19 09:14 108 32 40 Intake and Output 12/06/19 12/07/19 19:00 07:00 Intake Total 750 ml 750 ml Output Total 350 ml 600 ml Balance 400 ml 150 ml Free Water 50 ml 150 ml Tube Feeding 600 ml 600 ml Blood Product 100 ml Output Urine Total 350 ml 400 ml Stool Total 200 ml # Voids 1 Laboratory Tests 12/06/19 11:06: POC Whole Blood Glucose 154H 12/06/19 17:36: POC Whole Blood Glucose 109H 12/07/19 03:52: White Blood Count 9.0, Red Blood Count 3.62L, Hemoglobin 9.6L, Hematocrit 32.3L , Mean Corpuscular Volume 89, Mean Corpuscular Hemoglobin 26.4L, Mean Corpuscular Hemoglobin Concent 29.6L, Red Cell Distribution Width 19.1H, Platelet Count 327, Mean Platelet Volume 5.8L, Neutrophils (%) (Auto) 79.9H, Lymphocytes (%) (Auto) 10.6L, Monocytes (%) (Auto) 6.9, Eosinophils (%) (Auto) 1.6, Basophils (%) (Auto) 1.0, Sodium Level 145, Potassium Level 3.8, Chloride Level 104, Carbon Dioxide Level 36H, Anion Gap 6, Blood Urea Nitrogen 17, Creatinine 0.5L, Estimat Glomerular Filtration Rate > 60, Glucose Level 77, Calcium Level 8.0L, Phosphorus Level 3.5, Magnesium Level 1.9, Total Bilirubin 0.6, Aspartate Amino Transf (AST/SGOT) 39H, Alanine Aminotransferase (ALT/SGPT) 32, Alkaline Phosphatase 175H, C-Reactive Protein, Quantitative 8.8H, Pro-B- Type Natriuretic Peptide 2778H, Total Protein 6.4, Albumin 1.8L, Globulin 4.6, Albumin/Globulin Ratio 0.4L 12/07/19 08:35: POC Whole Blood Glucose 109H Height (Feet): 5 Height (Inches): 1.00 Weight (Pounds): 277 General Appearance: no apparent distress EENT: normal ENT inspection Neck: supple Cardiovascular: normal rate Respiratory/Chest: decreased breath sounds Abdomen: normal bowel sounds, non tender, soft Extremities: non-tender Case Patel MD Dec 07, 2019 09:10
--- NOTE | 2019-12-07 09:54 | Nephrology Progress Note ---
Assessment/Plan Problem List: (1) Electrolyte imbalance (2) Diabetes (3) 2019 novel coronavirus disease (COVID-19) (4) Respiratory failure Assessment 1. COVID-19 pneumonia. 2. Diabetes and hyperglycemia 3. Hypertension. 4. Hypoxic respiratory failure 5. Morbid obesity with BMI of 65.5 6. Nasal bleeding 7. Lactic acidosis 8. Hyperkalemia Plan December 06: Reviewed. Renal parameters stable. Continue per consultants. December 05: Renal parameters stable. Will check labs tomorrow. Continue per consultants. December 04: Stable renal parameters. Continue per consultants. December 03: Renal parameters stable. Continue per consultants. December 02: Remains stable from renal standpoint of view. Electrolyte abnormalities addressed and corrected. December 01: Remains stable from renal standpoint of view. November 30: Lab reviewed. Renal parameters stable. Continue per consultants. November 29: Lab reviewed. Renal parameters stable. Continue per consultants. November 28: Lab reviewed. Phosphorus supplement given. Discussed with RN. Continue to monitor renal parameters. November 27: Lab reviewed. Serum sodium improved. Will start low-dose Zaroxolyn. Change IV Pepcid to GT route. Remains full code. Monitor renal parameters and electrolytes. November 26: Lab reviewed. Serum sodium elevated. 500 cc D5W bolus given. Potassium supplement given. Patient remains full code. Continue per consultants. November 25: Lab reviewed. Patient has trach connected to vent. Patient also has PEG. Continue per consultants. Medication list reviewed. November 24: Lab reviewed. Potassium IV given. Has tracheostomy to vent. Has PEG. Continue per consultants. November 23: Labs reviewed. Creatinine higher to 1.4. Due for trach today. Suggest to stop IV Lasix. November 22: Renal parameters stable. Medication list reviewed. Continue same management per consultants. November 21: Renal parameters stable. On IV Lasix. Edematous. Will order few doses of albumin 25%. Continue per consultants. November 20: Repeat serum potassium again normal. Renal parameters normal. Continue per consultants. November 19: Repeat serum potassium normal. Renal parameters within normal limit. Continue per consultants. November 18: Levemir stopped since IV fluid and dexamethasone are discontinued and patient blood sugar went down. Renal parameters are stable. Continues to be on ventilator. Previously: Renal parameters stable Weaning is being attempted patient's urine output is low. We will give a trial of albumin and Lasix, As needed Discussed with RN Stop IV to D5W 75 cc an hour Levemir 20 units subcu every 12 hours Kayexalate for high potassium as needed Monitor electrolytes and renal parameters Tight blood sugar control, long-acting insulin as needed Keep the blood pressure in check Per orders Subjective ROS Limited/Unobtainable: Yes Objective Objective Last 24 Hour Vital Signs Date Time Temp Pulse Resp B/P (MAP) Pulse Ox O2 Delivery O2 Flow Rate FiO2 12/07/19 09:18 99 Trach Collar 10.0 40 12/07/19 08:40 98 21 40 12/07/19 08:34 86 137/74 12/07/19 08:00 98.2 86 21 137/74 (95) 99 12/07/19 07:05 88 25 40 12/07/19 05:30 90 22 40 12/07/19 04:00 98.2 93 18 133/83 (100) 99 12/07/19 04:00 40 12/07/19 04:00 Mechanical Ventilator Mechanical Ventilator 12/07/19 03:42 85 12/07/19 03:20 87 19 40 12/07/19 01:20 87 22 40 12/07/19 00:00 Mechanical Ventilator Mechanical Ventilator 12/07/19 00:00 98.4 98 20 123/76 (92) 100 12/07/19 00:00 40 12/06/19 23:33 92 12/06/19 23:20 88 21 40 12/06/19 21:21 79 21 40 12/06/19 21:04 87 134/73 12/06/19 20:00 98.2 87 21 134/73 (93) 100 12/06/19 20:00 Mechanical Ventilator Mechanical Ventilator 12/06/19 20:00 40 12/06/19 19:53 95 12/06/19 19:30 80 21 40 12/06/19 17:26 81 19 40 12/06/19 16:00 89 12/06/19 16:00 Mechanical Ventilator Mechanical Ventilator 12/06/19 16:00 40 12/06/19 16:00 100.0 95 25 136/80 (98) 100 12/06/19 14:40 76 27 40 12/06/19 13:02 81 24 40 12/06/19 12:00 98.4 90 28 142/78 (99) 99 12/06/19 12:00 40 12/06/19 12:00 Mechanical Ventilator Mechanical Ventilator 12/06/19 12:00 90 12/06/19 10:52 71 20 40 Intake and Output 12/06/19 12/07/19 19:00 07:00 Intake Total 750 ml 750 ml Output Total 350 ml 600 ml Balance 400 ml 150 ml Free Water 50 ml 150 ml Tube Feeding 600 ml 600 ml Blood Product 100 ml Output Urine Total 350 ml 400 ml Stool Total 200 ml # Voids 1 Laboratory Tests 12/06/19 11:06: POC Whole Blood Glucose 154H 12/06/19 17:36: POC Whole Blood Glucose 109H 12/07/19 03:52: White Blood Count 9.0, Red Blood Count 3.62L, Hemoglobin 9.6L, Hematocrit 32.3L , Mean Corpuscular Volume 89, Mean Corpuscular Hemoglobin 26.4L, Mean Corpuscular Hemoglobin Concent 29.6L, Red Cell Distribution Width 19.1H, Platelet Count 327, Mean Platelet Volume 5.8L, Neutrophils (%) (Auto) 79.9H, Lymphocytes (%) (Auto) 10.6L, Monocytes (%) (Auto) 6.9, Eosinophils (%) (Auto) 1.6, Basophils (%) (Auto) 1.0, Sodium Level 145, Potassium Level 3.8, Chloride Level 104, Carbon Dioxide Level 36H, Anion Gap 6, Blood Urea Nitrogen 17, Creatinine 0.5L, Estimat Glomerular Filtration Rate > 60, Glucose Level 77, Calcium Level 8.0L, Phosphorus Level 3.5, Magnesium Level 1.9, Total Bilirubin 0.6, Aspartate Amino Transf (AST/SGOT) 39H, Alanine Aminotransferase (ALT/SGPT) 32, Alkaline Phosphatase 175H, C-Reactive Protein, Quantitative 8.8H, Pro-B- Type Natriuretic Peptide 2778H, Total Protein 6.4, Albumin 1.8L, Globulin 4.6, Albumin/Globulin Ratio 0.4L 12/07/19 08:35: POC Whole Blood Glucose 109H Height (Feet): 5 Height (Inches): 1.00 Weight (Pounds): 277 General Appearance: no apparent distress EENT: other - Trach to vent Cardiovascular: tachycardia Respiratory/Chest: decreased breath sounds Abdomen: distended Papa Young MD Dec 07, 2019 09:54
--- NOTE | 2019-12-07 11:15 | Infectious Diseases Prog Note ---
"Assessment/Plan Assessment/Plan antibiotics : vancomycin po 8.11.20 - A 1. COVID 19 pneumonia s/p remdesivir s/p ivermectin 7.31.20 COVID test negative x 2 2. respiratory failure s/p tracheostomy 3. leucocytosis resolved 4. diabetes mellitus 5. hypertension 6. obesity 7. enterobacter | proteus | staph aureus pneumonia s/p rx 8. c.diff colitis P 1. continue po vancomycin 3 more days 2. will follow up cultures 3. continue isolation Subjective ROS Limited/Unobtainable: Yes Allergies: Coded Allergies: No Known Allergies (Unverified , 11/06/19) Objective Last 24 Hour Vital Signs Date Time Temp Pulse Resp B/P (MAP) Pulse Ox O2 Delivery O2 Flow Rate FiO2 12/07/19 10:58 95 12/07/19 09:18 99 Trach Collar 10.0 40 12/07/19 08:40 98 21 40 12/07/19 08:34 86 137/74 12/07/19 08:00 94 12/07/19 08:00 98.2 86 21 137/74 (95) 99 12/07/19 07:05 88 25 40 12/07/19 05:30 90 22 40 12/07/19 04:00 98.2 93 18 133/83 (100) 99 12/07/19 04:00 40 12/07/19 04:00 Mechanical Ventilator Mechanical Ventilator 12/07/19 03:42 85 12/07/19 03:20 87 19 40 12/07/19 01:20 87 22 40 12/07/19 00:00 Mechanical Ventilator Mechanical Ventilator 12/07/19 00:00 98.4 98 20 123/76 (92) 100 12/07/19 00:00 40 12/06/19 23:33 92 12/06/19 23:20 88 21 40 12/06/19 21:21 79 21 40 12/06/19 21:04 87 134/73 12/06/19 20:00 98.2 87 21 134/73 (93) 100 12/06/19 20:00 Mechanical Ventilator Mechanical Ventilator 12/06/19 20:00 40 12/06/19 19:53 95 12/06/19 19:30 80 21 40 12/06/19 17:26 81 19 40 12/06/19 16:00 89 12/06/19 16:00 Mechanical Ventilator Mechanical Ventilator 12/06/19 16:00 40 12/06/19 16:00 100.0 95 25 136/80 (98) 100 12/06/19 14:40 76 27 40 12/06/19 13:02 81 24 40 12/06/19 12:00 98.4 90 28 142/78 (99) 99 12/06/19 12:00 40 12/06/19 12:00 Mechanical Ventilator Mechanical Ventilator 12/06/19 12:00 90 Height (Feet): 5 Height (Inches): 1.00 Weight (Pounds): 277 HEENT: status post trach Respiratory/Chest: lungs clear Cardiovascular: normal rate, regular rhythm, no gallop/murmur Abdomen: soft, non tender, other - GT Extremities: other - + edema Laboratory Tests Test 12/06/19 17:36 12/07/19 03:52 12/07/19 08:35 POC Whole Blood Glucose 109 MG/DL (74-106) H 109 MG/DL (74-106) H White Blood Count 9.0 K/UL (4.8-10.8) Red Blood Count 3.62 M/UL (4.20-5.40) L Hemoglobin 9.6 G/DL (12.0-16.0) L Hematocrit 32.3 % (37.0-47.0) L Mean Corpuscular Volume 89 FL (80-99) Mean Corpuscular Hemoglobin 26.4 PG (27.0-31.0) L Mean Corpuscular Hemoglobin Concent 29.6 G/DL (32.0-36.0) L Red Cell Distribution Width 19.1 % (11.6-14.8) H Platelet Count 327 K/UL (150-450) Mean Platelet Volume 5.8 FL (6.5-10.1) L Neutrophils (%) (Auto) 79.9 % (45.0-75.0) H Lymphocytes (%) (Auto) 10.6 % (20.0-45.0) L Monocytes (%) (Auto) 6.9 % (1.0-10.0) Eosinophils (%) (Auto) 1.6 % (0.0-3.0) Basophils (%) (Auto) 1.0 % (0.0-2.0) Sodium Level 145 MMOL/L (136-145) Potassium Level 3.8 MMOL/L (3.5-5.1) Chloride Level 104 MMOL/L (98-107) Carbon Dioxide Level 36 MMOL/L (21-32) H Anion Gap 6 mmol/L (5-15) Blood Urea Nitrogen 17 mg/dL (7-18) Creatinine 0.5 MG/DL (0.55-1.30) L Estimat Glomerular Filtration Rate > 60 mL/min (>60) Glucose Level 77 MG/DL (74-106) Calcium Level 8.0 MG/DL (8.5-10.1) L Phosphorus Level 3.5 MG/DL (2.5-4.9) Magnesium Level 1.9 MG/DL (1.8-2.4) Total Bilirubin 0.6 MG/DL (0.2-1.0) Aspartate Amino Transf (AST/SGOT) 39 U/L (15-37) H Alanine Aminotransferase (ALT/SGPT) 32 U/L (12-78) Alkaline Phosphatase 175 U/L (46-116) H C-Reactive Protein, Quantitative 8.8 mg/dL (0.00-0.90) H Pro-B-Type Natriuretic Peptide 2778 pg/mL (0-125) H Total Protein 6.4 G/DL (6.4-8.2) Albumin 1.8 G/DL (3.4-5.0) L Globulin 4.6 g/dL Albumin/Globulin Ratio 0.4 (1.0-2.7) L Current Medications Medications (Trade) Dose Ordered Sig/Robyn Route PRN Reason Start Time Stop Time Status Last Admin Dose Admin Acetaminophen (Tylenol) 650 mg Q4H PRN GT For Pain 11/30/19 17:45 12/30/19 17:44 11/30/19 18:24 Acetaminophen (Tylenol) 650 mg Q6H PRN GT Temp >100.5 11/29/19 15:00 12/12/19 14:59 12/05/19 00:06 Amiodarone HCl (Cordarone) 200 mg DAILY GT 12/04/19 09:00 02/18/20 09:29 12/07/19 08:34 Clonidine HCl (Catapres Tab) 0.1 mg Q4H PRN GT For High Blood Pressure 11/29/19 14:30 10/20/20 14:29 Dextrose (Dextrose 50%) 25 ml Q30M PRN IV Hypoglycemia 11/29/19 14:15 02/21/20 06:44 Dextrose (Dextrose 50%) 50 ml Q30M PRN IV Hypoglycemia 11/29/19 14:15 02/21/20 06:44 Famotidine (Pepcid) 20 mg BID GT 11/29/19 18:00 02/26/20 17:59 12/07/19 08:34 Folic Acid (Folate) 2 mg DAILY GT 11/30/19 09:00 12/15/19 08:59 12/07/19 08:34 Insulin Aspart (NovoLOG) EVERY 6 HOURS SUBQ 11/29/19 18:00 02/11/20 20:59 12/06/19 13:14 Insulin Detemir (Levemir) 10 units BID SUBQ 12/01/19 09:00 02/21/20 08:59 12/07/19 08:36 Lorazepam (Ativan 2mg/ml 1ml) 2 mg Q3H PRN IV For Anxiety 12/03/19 21:45 12/10/19 21:44 12/06/19 05:58 Metolazone (Zaroxolyn) 2.5 mg DAILY GT 11/30/19 09:00 12/28/19 09:29 12/07/19 08:34 Metoprolol Tartrate (Lopressor) 25 mg Q12HR GT 11/29/19 21:00 02/18/20 09:29 12/07/19 08:34 Vancomycin HCl (Firvanq) 125 mg FOUR TIMES A DAY GT 12/01/19 13:00 12/10/19 23:59 12/07/19 08:34 Rosette Bowman MD Dec 07, 2019 11:14"
[2019-12-07 12:00] VITALS: BP 147/92
[2019-12-07] MEDS: Acetaminophen 650mg/20.3ml GT PRN (13:32)
--- NOTE | 2019-12-07 14:00 | Geriatric Medicine Prog Note ---
DATE: 12/04/2019 SUBJECTIVE: The patient . OBJECTIVE: VITAL SIGNS: Stable. RESPIRATORY: Clear. CARDIOVASCULAR: Regular. LABORATORY DATA: Glucose 156. ASSESSMENT: Diabetes mellitus, improved. PLAN: Continue per G-tube. Meet Wilson M.D. DR: VENKATA JOB#: [id number] CC:
--- NOTE | 2019-12-07 14:15 | Geriatric Medicine Prog Note ---
DATE: 12/05/2019 SUBJECTIVE: The patient diabetic control. BP . Pulse 82. Respiratory rate 20. . Glucose 140. . ASSESSMENT: Diabetes mellitus, in good control. PLAN: Continue Meet Wilson M.D. DR: VENKATA JOB#: [id number] CC:
--- NOTE | 2019-12-07 14:15 | Geriatric Medicine Prog Note ---
DATE: 12/07/2019 NOTE: POOR AUDIO SUBJECTIVE: The patient . OBJECTIVE: VITAL SIGNS: Stable. . PLAN: Continue Levemir q.12h. . Meet Wilson M.D. DR: VENKATA JOB#: [id number] CC:
--- NOTE | 2019-12-07 14:25 | Surgery Progress Note ---
Surgery Progress Note Subjective Procedure Performed tracheostomy Symptoms: improved Additional Comments off vent on trach collar more alert Objective Last 24 Hour Vital Signs Date Time Temp Pulse Resp B/P (MAP) Pulse Ox O2 Delivery O2 Flow Rate FiO2 12/07/19 13:28 115 12/07/19 12:00 103 12/07/19 12:00 100.0 70 19 147/92 (110) 97 12/07/19 12:00 Mechanical Ventilator Mechanical Ventilator 12/07/19 10:58 95 12/07/19 09:18 99 Trach Collar 10.0 40 12/07/19 08:40 98 21 40 12/07/19 08:34 86 137/74 12/07/19 08:00 40 12/07/19 08:00 94 12/07/19 08:00 Mechanical Ventilator Mechanical Ventilator 12/07/19 08:00 98.2 86 21 137/74 (95) 99 12/07/19 07:05 88 25 40 12/07/19 05:30 90 22 40 12/07/19 04:00 98.2 93 18 133/83 (100) 99 12/07/19 04:00 40 12/07/19 04:00 Mechanical Ventilator Mechanical Ventilator 12/07/19 03:42 85 12/07/19 03:20 87 19 40 12/07/19 01:20 87 22 40 12/07/19 00:00 Mechanical Ventilator Mechanical Ventilator 12/07/19 00:00 98.4 98 20 123/76 (92) 100 12/07/19 00:00 40 12/06/19 23:33 92 12/06/19 23:20 88 21 40 12/06/19 21:21 79 21 40 12/06/19 21:04 87 134/73 12/06/19 20:00 98.2 87 21 134/73 (93) 100 12/06/19 20:00 Mechanical Ventilator Mechanical Ventilator 12/06/19 20:00 40 12/06/19 19:53 95 12/06/19 19:30 80 21 40 12/06/19 17:26 81 19 40 12/06/19 16:00 89 12/06/19 16:00 Mechanical Ventilator Mechanical Ventilator 12/06/19 16:00 40 12/06/19 16:00 100.0 95 25 136/80 (98) 100 12/06/19 14:40 76 27 40 I&O Intake and Output 12/06/19 12/07/19 19:00 07:00 Intake Total 750 ml 750 ml Output Total 350 ml 600 ml Balance 400 ml 150 ml Free Water 50 ml 150 ml Tube Feeding 600 ml 600 ml Blood Product 100 ml Output Urine Total 350 ml 400 ml Stool Total 200 ml # Voids 1 Dressing: dry Wound: clean Cardiovascular: RSR Respiratory: clear, decreased breath sounds Abdomen: non-tender, present bowel sounds Extremities: edema, no tenderness, no cyanosis Laboratory Tests Test 12/06/19 17:36 12/07/19 03:52 12/07/19 08:35 12/07/19 12:57 POC Whole Blood Glucose 109 MG/DL (74-106) H 109 MG/DL (74-106) H 128 MG/DL (74-106) H White Blood Count 9.0 K/UL (4.8-10.8) Red Blood Count 3.62 M/UL (4.20-5.40) L Hemoglobin 9.6 G/DL (12.0-16.0) L Hematocrit 32.3 % (37.0-47.0) L Mean Corpuscular Volume 89 FL (80-99) Mean Corpuscular Hemoglobin 26.4 PG (27.0-31.0) L Mean Corpuscular Hemoglobin Concent 29.6 G/DL (32.0-36.0) L Red Cell Distribution Width 19.1 % (11.6-14.8) H Platelet Count 327 K/UL (150-450) Mean Platelet Volume 5.8 FL (6.5-10.1) L Neutrophils (%) (Auto) 79.9 % (45.0-75.0) H Lymphocytes (%) (Auto) 10.6 % (20.0-45.0) L Monocytes (%) (Auto) 6.9 % (1.0-10.0) Eosinophils (%) (Auto) 1.6 % (0.0-3.0) Basophils (%) (Auto) 1.0 % (0.0-2.0) Sodium Level 145 MMOL/L (136-145) Potassium Level 3.8 MMOL/L (3.5-5.1) Chloride Level 104 MMOL/L (98-107) Carbon Dioxide Level 36 MMOL/L (21-32) H Anion Gap 6 mmol/L (5-15) Blood Urea Nitrogen 17 mg/dL (7-18) Creatinine 0.5 MG/DL (0.55-1.30) L Estimat Glomerular Filtration Rate > 60 mL/min (>60) Glucose Level 77 MG/DL (74-106) Calcium Level 8.0 MG/DL (8.5-10.1) L Phosphorus Level 3.5 MG/DL (2.5-4.9) Magnesium Level 1.9 MG/DL (1.8-2.4) Total Bilirubin 0.6 MG/DL (0.2-1.0) Aspartate Amino Transf (AST/SGOT) 39 U/L (15-37) H Alanine Aminotransferase (ALT/SGPT) 32 U/L (12-78) Alkaline Phosphatase 175 U/L (46-116) H C-Reactive Protein, Quantitative 8.8 mg/dL (0.00-0.90) H Pro-B-Type Natriuretic Peptide 2778 pg/mL (0-125) H Total Protein 6.4 G/DL (6.4-8.2) Albumin 1.8 G/DL (3.4-5.0) L Globulin 4.6 g/dL Albumin/Globulin Ratio 0.4 (1.0-2.7) L Plan Problems: (1) Weak (2) UTI (urinary tract infection) (3) Hypoxia (4) Epistaxis Assessment & Plan: Severe after taxis left nostril Rhino Rocket placed hemostasis noted over the course 24 hours hemoglobin stable Lovenox been stopped. The balloon of both ports of the Rhino Rocket were deflated today. The rocket itself was not removed and will monitor over the course next 24 hours hemostasis. If so will gently remove and plan for local monitoring. Currently wean ventilator as tolerated. Goals of extubation when possible. deflated balloon 11/08 removed trumpet 11/09 will monitor for bleeding wean vent plan extubation discussed with pulm (5) Fluid overload Assessment & Plan: Continue central venous catheter for now. Will anticipate removal once patient stable for extubation. Thank you for allowing me to participate patient's care picc in line out (6) Diabetes (7) CHF (congestive heart failure) (8) Afib (9) Multifocal pneumonia (10) 2019 novel coronavirus disease (COVID-19) Assessment & Plan: + wean vent extubated failed reintubated consider trach plan trach 8/ s/p trach comfortable (11) Respiratory failure Assessment & Plan: trach dislodged 11/29 with air leak evaluated at bedside and repositioned. improved now will monitor stable monitoring Ortiz Fleming Dec 07, 2019 14:25
--- NOTE | 2019-12-07 15:19 | Pulmonology Progress Note ---
Subjective ROS Limited/Unobtainable: Yes Interval Events: Re-intubated on 11/19/19; Status post tracheostomy 11/24/2019 Constitutional: Denies: fever HEENT: Repors: no symptoms Respiratory: Reports: dry cough, shortness of breath Cardiovascular: Reports: no symptoms Gastrointestinal/Abdominal: Reports: diarrhea Musculoskeletal: Denies: pain Allergies: Coded Allergies: No Known Allergies (Unverified , 11/06/19) All Systems: reviewed and negative except above Objective Last 24 Hour Vital Signs Date Time Temp Pulse Resp B/P (MAP) Pulse Ox O2 Delivery O2 Flow Rate FiO2 12/07/19 14:02 100.2 12/07/19 13:28 115 12/07/19 12:00 103 12/07/19 12:00 10.0 12/07/19 12:00 100.0 70 19 147/92 (110) 97 12/07/19 12:00 Mechanical Ventilator Mechanical Ventilator 12/07/19 10:58 95 12/07/19 09:18 99 Trach Collar 10.0 40 12/07/19 08:40 98 21 40 12/07/19 08:34 86 137/74 12/07/19 08:00 40 12/07/19 08:00 94 12/07/19 08:00 Mechanical Ventilator Mechanical Ventilator 12/07/19 08:00 98.2 86 21 137/74 (95) 99 12/07/19 07:05 88 25 40 12/07/19 05:30 90 22 40 12/07/19 04:00 98.2 93 18 133/83 (100) 99 12/07/19 04:00 40 12/07/19 04:00 Mechanical Ventilator Mechanical Ventilator 12/07/19 03:42 85 12/07/19 03:20 87 19 40 12/07/19 01:20 87 22 40 12/07/19 00:00 Mechanical Ventilator Mechanical Ventilator 12/07/19 00:00 98.4 98 20 123/76 (92) 100 12/07/19 00:00 40 12/06/19 23:33 92 12/06/19 23:20 88 21 40 12/06/19 21:21 79 21 40 12/06/19 21:04 87 134/73 12/06/19 20:00 98.2 87 21 134/73 (93) 100 12/06/19 20:00 Mechanical Ventilator Mechanical Ventilator 12/06/19 20:00 40 12/06/19 19:53 95 12/06/19 19:30 80 21 40 12/06/19 17:26 81 19 40 12/06/19 16:00 89 12/06/19 16:00 Mechanical Ventilator Mechanical Ventilator 12/06/19 16:00 40 12/06/19 16:00 100.0 95 25 136/80 (98) 100 Intake and Output 12/06/19 12/07/19 19:00 07:00 Intake Total 750 ml 750 ml Output Total 350 ml 600 ml Balance 400 ml 150 ml Free Water 50 ml 150 ml Tube Feeding 600 ml 600 ml Blood Product 100 ml Output Urine Total 350 ml 400 ml Stool Total 200 ml # Voids 1 General Appearance: no acute distress HEENT: normocephalic, status post trach Respiratory: decreased breath sounds Cardiovascular: normal peripheral pulses Abdomen: normal bowel sounds Extremities: no cyanosis Laboratory Tests 12/06/19 17:36: POC Whole Blood Glucose 109H 12/07/19 03:52: White Blood Count 9.0, Red Blood Count 3.62L, Hemoglobin 9.6L, Hematocrit 32.3L , Mean Corpuscular Volume 89, Mean Corpuscular Hemoglobin 26.4L, Mean Corpuscular Hemoglobin Concent 29.6L, Red Cell Distribution Width 19.1H, Platelet Count 327, Mean Platelet Volume 5.8L, Neutrophils (%) (Auto) 79.9H, Lymphocytes (%) (Auto) 10.6L, Monocytes (%) (Auto) 6.9, Eosinophils (%) (Auto) 1.6, Basophils (%) (Auto) 1.0, Sodium Level 145, Potassium Level 3.8, Chloride Level 104, Carbon Dioxide Level 36H, Anion Gap 6, Blood Urea Nitrogen 17, Creatinine 0.5L, Estimat Glomerular Filtration Rate > 60, Glucose Level 77, Calcium Level 8.0L, Phosphorus Level 3.5, Magnesium Level 1.9, Total Bilirubin 0.6, Aspartate Amino Transf (AST/SGOT) 39H, Alanine Aminotransferase (ALT/SGPT) 32, Alkaline Phosphatase 175H, C-Reactive Protein, Quantitative 8.8H, Pro-B- Type Natriuretic Peptide 2778H, Total Protein 6.4, Albumin 1.8L, Globulin 4.6, Albumin/Globulin Ratio 0.4L 12/07/19 08:35: POC Whole Blood Glucose 109H 12/07/19 12:57: POC Whole Blood Glucose 128H Current Medications Medications (Trade) Dose Ordered Sig/Robyn Route PRN Reason Start Time Stop Time Status Last Admin Dose Admin Acetaminophen (Tylenol) 650 mg Q4H PRN GT For Pain 11/30/19 17:45 12/30/19 17:44 11/30/19 18:24 Acetaminophen (Tylenol) 650 mg Q6H PRN GT Temp >100.5 11/29/19 15:00 12/12/19 14:59 12/07/19 13:32 Amiodarone HCl (Cordarone) 200 mg DAILY GT 12/04/19 09:00 02/18/20 09:29 12/07/19 08:34 Clonidine HCl (Catapres Tab) 0.1 mg Q4H PRN GT For High Blood Pressure 11/29/19 14:30 02/09/20 14:29 Dextrose (Dextrose 50%) 25 ml Q30M PRN IV Hypoglycemia 11/29/19 14:15 02/21/20 06:44 Dextrose (Dextrose 50%) 50 ml Q30M PRN IV Hypoglycemia 11/29/19 14:15 02/21/20 06:44 Famotidine (Pepcid) 20 mg BID GT 11/29/19 18:00 02/26/20 17:59 12/07/19 08:34 Folic Acid (Folate) 2 mg DAILY GT 11/30/19 09:00 12/15/19 08:59 12/07/19 08:34 Insulin Aspart (NovoLOG) EVERY 6 HOURS SUBQ 11/29/19 18:00 02/11/20 20:59 12/06/19 13:14 Insulin Detemir (Levemir) 10 units BID SUBQ 12/01/19 09:00 02/21/20 08:59 12/07/19 08:36 Lorazepam (Ativan 2mg/ml 1ml) 2 mg Q3H PRN IV For Anxiety 12/03/19 21:45 12/10/19 21:44 12/06/19 05:58 Metolazone (Zaroxolyn) 2.5 mg DAILY GT 11/30/19 09:00 9/7/20 09:29 12/07/19 08:34 Metoprolol Tartrate (Lopressor) 25 mg Q12HR GT 11/29/19 21:00 02/18/20 09:29 12/07/19 08:34 Vancomycin HCl (Firvanq) 125 mg FOUR TIMES A DAY GT 12/01/19 13:00 12/10/19 23:59 12/07/19 13:33 Assessment/Plan Assessment/Plan IMPRESSION: 1. COVID-19 pneumonia. 2. Diabetes mellitus and hypertension. 3. Lactic acidemia. 4. Epistaxis 5. Respiratory failure; failed extubation 6. S/p trach/PEG DISCUSSION: Careful and close monitoring. Continue medications status post tracheostomy Begin weaning; trach collar S/p PEG no longer on Lasix I will follow carefully Noted C. diff positive Dc planning to sub-acute Lakeisha Zavaleta Omar Syed MD Dec 07, 2019 15:19
--- NOTE | 2019-12-07 15:57 | Cardiac Electrophysiology PN ---
Assessment/Plan Assessment/Plan 1. Paroxysmal atrial fibrillation. On metoprolol 25 bid and Amiodarone 200 daily Off anticoagulation for hematuria and black stool EF 55% on echo. 2. S/P Shock. Off pressors. 3. COVID positive pneumonia. Now off isolation 4. Diabetes, on insulin. 5. Respiratory failure. S/P Tracheostomy 11/24/19. Off the vent today 6. S/P Massive nasal bleed. 7. Severe LE edema.On Metolazone 8. Dysphagia, S/P PEG 11/25/19 9. C Diff. FU Dr David SAGE RN Subjective Subjective Off the vent but confused in restraints. Off Covid isolation. S/P tracheostomy 11/24/19 and PEG 11/25/19. Trach leaking In atrial fib rate controlled on Lopressor 25 bid. Still has diarrhea and positive for C Diff. Objective Last 24 Hour Vital Signs Date Time Temp Pulse Resp B/P (MAP) Pulse Ox O2 Delivery O2 Flow Rate FiO2 12/07/19 14:02 100.2 12/07/19 13:28 115 12/07/19 12:00 103 12/07/19 12:00 10.0 12/07/19 12:00 100.0 70 19 147/92 (110) 97 12/07/19 12:00 Mechanical Ventilator Mechanical Ventilator 12/07/19 10:58 95 12/07/19 09:18 99 Trach Collar 10.0 40 12/07/19 08:40 98 21 40 12/07/19 08:34 86 137/74 12/07/19 08:00 40 12/07/19 08:00 94 12/07/19 08:00 Mechanical Ventilator Mechanical Ventilator 12/07/19 08:00 98.2 86 21 137/74 (95) 99 12/07/19 07:05 88 25 40 12/07/19 05:30 90 22 40 12/07/19 04:00 98.2 93 18 133/83 (100) 99 12/07/19 04:00 40 12/07/19 04:00 Mechanical Ventilator Mechanical Ventilator 12/07/19 03:42 85 12/07/19 03:20 87 19 40 12/07/19 01:20 87 22 40 12/07/19 00:00 Mechanical Ventilator Mechanical Ventilator 12/07/19 00:00 98.4 98 20 123/76 (92) 100 12/07/19 00:00 40 12/06/19 23:33 92 12/06/19 23:20 88 21 40 12/06/19 21:21 79 21 40 12/06/19 21:04 87 134/73 12/06/19 20:00 98.2 87 21 134/73 (93) 100 12/06/19 20:00 Mechanical Ventilator Mechanical Ventilator 12/06/19 20:00 40 12/06/19 19:53 95 12/06/19 19:30 80 21 40 12/06/19 17:26 81 19 40 12/06/19 16:00 89 12/06/19 16:00 Mechanical Ventilator Mechanical Ventilator 12/06/19 16:00 40 12/06/19 16:00 100.0 95 25 136/80 (98) 100 Intake and Output 12/06/19 12/07/19 19:00 07:00 Intake Total 750 ml 750 ml Output Total 350 ml 600 ml Balance 400 ml 150 ml Free Water 50 ml 150 ml Tube Feeding 600 ml 600 ml Blood Product 100 ml Output Urine Total 350 ml 400 ml Stool Total 200 ml # Voids 1 Laboratory Tests Test 12/06/19 17:36 12/07/19 03:52 12/07/19 08:35 12/07/19 12:57 POC Whole Blood Glucose 109 MG/DL (74-106) H 109 MG/DL (74-106) H 128 MG/DL (74-106) H White Blood Count 9.0 K/UL (4.8-10.8) Red Blood Count 3.62 M/UL (4.20-5.40) L Hemoglobin 9.6 G/DL (12.0-16.0) L Hematocrit 32.3 % (37.0-47.0) L Mean Corpuscular Volume 89 FL (80-99) Mean Corpuscular Hemoglobin 26.4 PG (27.0-31.0) L Mean Corpuscular Hemoglobin Concent 29.6 G/DL (32.0-36.0) L Red Cell Distribution Width 19.1 % (11.6-14.8) H Platelet Count 327 K/UL (150-450) Mean Platelet Volume 5.8 FL (6.5-10.1) L Neutrophils (%) (Auto) 79.9 % (45.0-75.0) H Lymphocytes (%) (Auto) 10.6 % (20.0-45.0) L Monocytes (%) (Auto) 6.9 % (1.0-10.0) Eosinophils (%) (Auto) 1.6 % (0.0-3.0) Basophils (%) (Auto) 1.0 % (0.0-2.0) Sodium Level 145 MMOL/L (136-145) Potassium Level 3.8 MMOL/L (3.5-5.1) Chloride Level 104 MMOL/L (98-107) Carbon Dioxide Level 36 MMOL/L (21-32) H Anion Gap 6 mmol/L (5-15) Blood Urea Nitrogen 17 mg/dL (7-18) Creatinine 0.5 MG/DL (0.55-1.30) L Estimat Glomerular Filtration Rate > 60 mL/min (>60) Glucose Level 77 MG/DL (74-106) Calcium Level 8.0 MG/DL (8.5-10.1) L Phosphorus Level 3.5 MG/DL (2.5-4.9) Magnesium Level 1.9 MG/DL (1.8-2.4) Total Bilirubin 0.6 MG/DL (0.2-1.0) Aspartate Amino Transf (AST/SGOT) 39 U/L (15-37) H Alanine Aminotransferase (ALT/SGPT) 32 U/L (12-78) Alkaline Phosphatase 175 U/L (46-116) H C-Reactive Protein, Quantitative 8.8 mg/dL (0.00-0.90) H Pro-B-Type Natriuretic Peptide 2778 pg/mL (0-125) H Total Protein 6.4 G/DL (6.4-8.2) Albumin 1.8 G/DL (3.4-5.0) L Globulin 4.6 g/dL Albumin/Globulin Ratio 0.4 (1.0-2.7) L Objective HEAD AND NECK: No JVD. Tracheostomy in place. LUNGS: Coarse rhonchi. CARDIOVASCULAR: Irregularly irregular. S1 and S2 with no gallop or murmur. ABDOMEN: Soft.PEG EXTREMITIES: 2 plus pitting edema. Gabe Snell MD Dec 07, 2019 15:57
[2019-12-07 16:00] VITALS: BP 151/83
[2019-12-07 20:00] VITALS: BP 149/79
--- NOTE | 2019-12-07 22:13 | General Progress Note ---
Assessment/Plan Problem List: (1) Weak ICD Codes: R53.1 - Weakness SNOMED: 91465091 (2) UTI (urinary tract infection) ICD Codes: N39.0 - Urinary tract infection, site not specified SNOMED: 56184242 (3) Respiratory failure ICD Codes: J96.90 - Respiratory failure, unspecified, unspecified whether with hypoxia or hypercapnia SNOMED: 348543583 (4) Electrolyte imbalance ICD Codes: E87.8 - Other disorders of electrolyte and fluid balance, not elsewhere classified SNOMED: 442159722 (5) Fluid overload ICD Codes: E87.70 - Fluid overload, unspecified SNOMED: 93529622 (6) Diabetes ICD Codes: E11.9 - Type 2 diabetes mellitus without complications SNOMED: 43482229 (7) CHF (congestive heart failure) ICD Codes: I50.9 - Heart failure, unspecified SNOMED: 24110938 (8) Hypoxia ICD Codes: R09.02 - Hypoxemia SNOMED: 944789124 (9) Afib ICD Codes: I48.91 - Unspecified atrial fibrillation SNOMED: 49944056 (10) Multifocal pneumonia ICD Codes: J18.9 - Pneumonia, unspecified organism SNOMED: 357272766 Status: stable, progressing Assessment/Plan: niddm check sugar afebrile no sob chf Subjective ROS Limited/Unobtainable: Yes Allergies: Coded Allergies: No Known Allergies (Unverified , 11/06/19) Objective Last 24 Hour Vital Signs Date Time Temp Pulse Resp B/P (MAP) Pulse Ox O2 Delivery O2 Flow Rate FiO2 12/07/19 21:28 85 169/98 12/07/19 21:03 103 23 12/07/19 20:00 98.6 77 24 149/79 (102) 97 12/07/19 19:16 97 Trach Collar 40.0 35 12/07/19 19:16 96 21 12/07/19 19:03 98 12/07/19 17:30 100 12/07/19 16:01 115 12/07/19 16:00 Mechanical Ventilator Mechanical Ventilator 12/07/19 16:00 99.1 93 18 151/83 (105) 97 12/07/19 16:00 100 12/07/19 16:00 40 12/07/19 14:02 100.2 12/07/19 13:28 115 12/07/19 12:00 103 12/07/19 12:00 40 12/07/19 12:00 100.0 70 19 147/92 (110) 97 12/07/19 12:00 Mechanical Ventilator Mechanical Ventilator 12/07/19 10:58 95 12/07/19 09:18 99 Trach Collar 10.0 40 12/07/19 08:40 98 21 40 12/07/19 08:34 86 137/74 12/07/19 08:00 40 12/07/19 08:00 94 12/07/19 08:00 Mechanical Ventilator Mechanical Ventilator 12/07/19 08:00 98.2 86 21 137/74 (95) 99 12/07/19 07:05 88 25 40 12/07/19 05:30 90 22 40 12/07/19 04:00 98.2 93 18 133/83 (100) 99 12/07/19 04:00 40 12/07/19 04:00 Mechanical Ventilator Mechanical Ventilator 12/07/19 03:42 85 12/07/19 03:20 87 19 40 12/07/19 01:20 87 22 40 12/07/19 00:00 Mechanical Ventilator Mechanical Ventilator 12/07/19 00:00 98.4 98 20 123/76 (92) 100 12/07/19 00:00 40 12/06/19 23:33 92 12/06/19 23:20 88 21 40 Intake and Output 12/06/19 12/07/19 19:00 07:00 Intake Total 750 ml 750 ml Output Total 350 ml 600 ml Balance 400 ml 150 ml Free Water 50 ml 150 ml Tube Feeding 600 ml 600 ml Blood Product 100 ml Output Urine Total 350 ml 400 ml Stool Total 200 ml # Voids 1 Laboratory Tests 12/07/19 03:52: White Blood Count 9.0, Red Blood Count 3.62L, Hemoglobin 9.6L, Hematocrit 32.3L , Mean Corpuscular Volume 89, Mean Corpuscular Hemoglobin 26.4L, Mean Corpuscular Hemoglobin Concent 29.6L, Red Cell Distribution Width 19.1H, Platelet Count 327, Mean Platelet Volume 5.8L, Neutrophils (%) (Auto) 79.9H, Lymphocytes (%) (Auto) 10.6L, Monocytes (%) (Auto) 6.9, Eosinophils (%) (Auto) 1.6, Basophils (%) (Auto) 1.0, Sodium Level 145, Potassium Level 3.8, Chloride Level 104, Carbon Dioxide Level 36H, Anion Gap 6, Blood Urea Nitrogen 17, Creatinine 0.5L, Estimat Glomerular Filtration Rate > 60, Glucose Level 77, Calcium Level 8.0L, Phosphorus Level 3.5, Magnesium Level 1.9, Total Bilirubin 0.6, Aspartate Amino Transf (AST/SGOT) 39H, Alanine Aminotransferase (ALT/SGPT) 32, Alkaline Phosphatase 175H, C-Reactive Protein, Quantitative 8.8H, Pro-B- Type Natriuretic Peptide 2778H, Total Protein 6.4, Albumin 1.8L, Globulin 4.6, Albumin/Globulin Ratio 0.4L 12/07/19 08:35: POC Whole Blood Glucose 109H 12/07/19 12:57: POC Whole Blood Glucose 128H 12/07/19 17:42: POC Whole Blood Glucose 124H Height (Feet): 5 Height (Inches): 1.00 Weight (Pounds): 277 Darius Real MD Dec 07, 2019 22:13
[2019-12-08] VITALS (7 sets, daily range): BP systolic 141–158; BP diastolic 74–100
[2019-12-08 05:02] LABS: BASOPHILS % (AUTO) 1.3 % (0.0-2.0); EOSINOPHILS % (AUTO) 1.3 % (0.0-3.0); HEMATOCRIT 36.6 % (37.0-47.0); HEMOGLOBIN 10.8 G/DL (12.0-16.0); MEAN CORPUSCULAR VOLUME 90 FL (80-99); MONOCYTES % (AUTO) 6.5 % (1.0-10.0); NEUTROPHILS % (AUTO) 75.9 % (45.0-75.0); PLATELET COUNT 309 K/UL (150-450); RED BLOOD COUNT 4.07 M/UL (4.20-5.40); RED CELL DISTRIBUTION WIDTH 18.7 % (11.6-14.8); WHITE BLOOD COUNT 7.8 K/UL (4.8-10.8)
[2019-12-08] MEDS: NovoLOG Insulin Flexpen SUBQ SCH ×3 (06:00→17:55)
--- NOTE | 2019-12-08 06:18 | General Progress Note ---
Assessment/Plan Problem List: (1) Hypoxia ICD Codes: R09.02 - Hypoxemia SNOMED: 271600562 (2) CHF (congestive heart failure) ICD Codes: I50.9 - Heart failure, unspecified SNOMED: 78470849 (3) Diabetes ICD Codes: E11.9 - Type 2 diabetes mellitus without complications SNOMED: 53840780 (4) Fluid overload ICD Codes: E87.70 - Fluid overload, unspecified SNOMED: 88168546 (5) 2019 novel coronavirus disease (COVID-19) ICD Codes: U07.1 - COVID-19 SNOMED: 899538282 Status: stable, progressing Assessment/Plan: reduce Levemir to 8 units bid continue Novolog sliding scale every 6 hours hypoglycemia protocol in order repeat thyroid function improved - no need for thyroid medication Subjective ROS Limited/Unobtainable: Yes Allergies: Coded Allergies: No Known Allergies (Unverified , 11/06/19) Subjective events noted glucose values are stable trach - vent TF tolerated Item Value Date Time Bedside Blood Glucose 106 mg/dl 12/08/19 0600 Bedside Blood Glucose 116 mg/dl 12/07/19 2332 Bedside Blood Glucose 124 mg/dl H 12/07/19 1800 Bedside Blood Glucose 128 mg/dl H 12/07/19 1200 Bedside Blood Glucose 109 mg/dl 12/07/19 0836 Bedside Blood Glucose 109 mg/dl 12/07/19 0606 Bedside Blood Glucose 100 mg/dl 12/07/19 0000 Objective Last 24 Hour Vital Signs Date Time Temp Pulse Resp B/P (MAP) Pulse Ox O2 Delivery O2 Flow Rate FiO2 12/08/19 05:02 75 17 35 12/08/19 04:00 98.0 78 18 144/74 (97) 100 12/08/19 04:00 Mechanical Ventilator Mechanical Ventilator 12/08/19 03:30 81 12/08/19 03:20 74 20 35 12/08/19 02:00 40 12/08/19 02:00 Mechanical Ventilator Mechanical Ventilator 12/08/19 01:09 78 22 35 12/08/19 01:05 144/74 (97) 12/08/19 00:00 Mechanical Ventilator Trach Collar 12/08/19 00:00 40 12/08/19 00:00 98.3 81 18 158/86 (110) 100 12/07/19 23:32 78 12/07/19 23:09 75 23 12/07/19 21:28 85 169/98 12/07/19 21:03 103 23 12/07/19 20:00 Mechanical Ventilator Trach Collar 12/07/19 20:00 98.6 77 24 149/79 (102) 97 12/07/19 20:00 40 12/07/19 19:16 97 Trach Collar 40.0 35 12/07/19 19:16 96 21 12/07/19 19:03 98 12/07/19 17:30 100 12/07/19 16:01 115 12/07/19 16:00 Mechanical Ventilator Mechanical Ventilator 12/07/19 16:00 99.1 93 18 151/83 (105) 97 12/07/19 16:00 100 12/07/19 16:00 40 12/07/19 14:02 100.2 12/07/19 13:28 115 12/07/19 12:00 103 12/07/19 12:00 40 12/07/19 12:00 100.0 70 19 147/92 (110) 97 12/07/19 12:00 Mechanical Ventilator Mechanical Ventilator 12/07/19 10:58 95 12/07/19 09:18 99 Trach Collar 10.0 40 12/07/19 08:40 98 21 40 12/07/19 08:34 86 137/74 12/07/19 08:00 40 12/07/19 08:00 94 12/07/19 08:00 Mechanical Ventilator Mechanical Ventilator 12/07/19 08:00 98.2 86 21 137/74 (95) 99 12/07/19 07:05 88 25 40 Intake and Output 12/07/19 12/08/19 19:00 07:00 Intake Total 600 ml 700 ml Output Total 390 ml 450 ml Balance 210 ml 250 ml Free Water 150 ml Tube Feeding 600 ml 550 ml Output Urine Total 300 ml 400 ml Stool Total 90 ml 50 ml Laboratory Tests 12/07/19 08:35: POC Whole Blood Glucose 109H 12/07/19 12:57: POC Whole Blood Glucose 128H 12/07/19 17:42: POC Whole Blood Glucose 124H 12/08/19 03:15: White Blood Count 7.8, Red Blood Count 4.07L, Hemoglobin 10.8L, Hematocrit 36.6L , Mean Corpuscular Volume 90, Mean Corpuscular Hemoglobin 26.4L, Mean Corpuscular Hemoglobin Concent 29.4L, Red Cell Distribution Width 18.7H, Platelet Count 309, Mean Platelet Volume 5.4L, Neutrophils (%) (Auto) 75.9H, Lymphocytes (%) (Auto) 15.0L, Monocytes (%) (Auto) 6.5, Eosinophils (%) (Auto) 1.3, Basophils (%) (Auto) 1.3 Height (Feet): 5 Height (Inches): 1.00 Weight (Pounds): 273 General Appearance: other - on vent EENT: other - trach Cardiovascular: regular rhythm Respiratory/Chest: decreased breath sounds Abdomen: normal bowel sounds Objective Current Medications Medications (Trade) Dose Ordered Sig/Robyn Route PRN Reason Start Time Stop Time Status Last Admin Dose Admin Acetaminophen (Tylenol) 650 mg Q4H PRN GT For Pain 11/30/19 17:45 12/30/19 17:44 11/30/19 18:24 Acetaminophen (Tylenol) 650 mg Q6H PRN GT Temp >100.5 11/29/19 15:00 12/12/19 14:59 12/07/19 13:32 Amiodarone HCl (Cordarone) 200 mg DAILY GT 12/04/19 09:00 02/18/20 09:29 12/07/19 08:34 Clonidine HCl (Catapres Tab) 0.1 mg Q4H PRN GT For High Blood Pressure 11/29/19 14:30 02/09/20 14:29 Dextrose (Dextrose 50%) 25 ml Q30M PRN IV Hypoglycemia 11/29/19 14:15 02/21/20 06:44 Dextrose (Dextrose 50%) 50 ml Q30M PRN IV Hypoglycemia 11/29/19 14:15 02/21/20 06:44 Famotidine (Pepcid) 20 mg BID GT 11/29/19 18:00 02/26/20 17:59 12/07/19 17:46 Folic Acid (Folate) 2 mg DAILY GT 11/30/19 09:00 12/15/19 08:59 12/07/19 08:34 Insulin Aspart (NovoLOG) EVERY 6 HOURS SUBQ 12/07/19 18:00 03/06/20 17:59 Insulin Detemir (Levemir) 10 units BID SUBQ 12/01/19 09:00 02/21/20 08:59 12/07/19 17:45 Lorazepam (Ativan 2mg/ml 1ml) 2 mg Q3H PRN IV For Anxiety 12/03/19 21:45 12/10/19 21:44 12/06/19 05:58 Metolazone (Zaroxolyn) 2.5 mg DAILY GT 11/30/19 09:00 12/28/19 09:29 12/07/19 08:34 Metoprolol Tartrate (Lopressor) 25 mg Q12HR GT 11/29/19 21:00 02/18/20 09:29 12/07/19 21:28 Vancomycin HCl (Firvanq) 125 mg FOUR TIMES A DAY GT 12/01/19 13:00 12/10/19 23:59 12/07/19 21:16 Alphonse Ojeda MD Dec 08, 2019 06:18
--- NOTE | 2019-12-08 06:36 | Hematology/Onc Progress Note ---
Assessment/Plan Assessment/Plan # Anemia of chronic disease due to underlying chronic medical issues, multifactorial v Gi bleed in this case likely related covid19+++++++++ --> Anemia workup has been ordered, rule out gi bleed --> No evidence of hemolysis is noted, peripheral smear has been reviewed. --> Hgb goal >7. Transfuse prn. --> Epogen or iron at this time is not particularly indicated --> Medications have been reviewed --> low threshold for gi evaluation in case has occult + --> hgb 10-->9.8-->9.2-->9.7-->10.7->10->11->10.2->10.6->9.4->10.8->9.8-->10->10 -->9.2->9 # Leukocytosis/elevated white blood cell count, unspecified likely related to covid19 --> have reviewed peripheral smear and bandemia/neutrophilia noted --> continue antibiotics if they have been started by ID team zosyn --> on remdesivir, dexamathasone --> monitor for resolution --> wbc 12->11-->11-->13->16-->21-->17-->14-->14->13-->11 # COVID 19 pneumonia --> on vent --> respiratory failure --> s/p vent reintubation 11/08 --> 11/23 trach was done # Diabetes mellitus --> iss and bs goal <140 # Dysphagia --> peg 11/24 # Hypertension --> sbp goal <150 # Dvt ppx scds Appreciate consultation and jimena RN Subjective HEENT: Denies: no symptoms, eye pain, blurred vision, tearing, double vision, ear pain, ear discharge, nose pain, nose congestion, throat pain, throat swelling, mouth pain, mouth swelling, other Cardiovascular: Denies: no symptoms, chest pain, edema, irregular heart rate, lightheadedness, palpitations, syncope, other Respiratory: Denies: no symptoms, cough, shortness of breath, SOB with excertion, SOB at rest, sputum, wheezing, other Allergies: Coded Allergies: No Known Allergies (Unverified , 11/06/19) All Systems: reviewed and negative except above Subjective 11/09 weaning prn, meds reviewed, labs noted, hgb 9.2 11/10 on vent, no bleeding, hgb remains low, jimena Dyson Jose R in am 11/11 on vent, fluids, ogf tube as well, labs pending in am 11/12 remains altered, no bleeding, labs reviewed, cbc noted 11/13 attempted weaning, but did not do well, no bleeding, hgb 10 11/14 intubated, weaning, on vent, with og, labs noted, abx 11/15 labs noted, no bleedign, weaning protocol, no night sweats, elev wbc, with fevers 11/16 no bleeding, jimena Broussard rn in the am, on vent, weaning but failed 11/17 meds reviewed, no night sweats, jimena rn, no bleeding 11/18 extubated, on nc at this time, no bleeding, meds reviewed 11/19 labs noted, no bleeding, on vent again, weaning 11/21 labs reviewed, hgb 9.4, no hemolysis, very difficult to obtain repeat lab draw in am 11/22 unable to wean vent, labs noted, plan for trach tomorrow, on fentanyl, still edematous 11/23 is for trach today and peg tomorrow, stil edematous, on lasix gtt 11/24 meds noted, no bleeding, on vent, for peg this am, trach functional 11/25 labs reviewed, no bleeding, meds noted, obtunded, hr better 11/26 picc line continues to leak, no bleeding, labs noted, low grade fever, id aware 12/03 remains altered, labs noted, no bleeding, hgb remains low, tmax 99.7f 12/04 no bleeding, left foot swollen, for duplex lower ext r/o dvt 12/05 is to have duplex for tomorrow, otherwise no changes, for cbc this am, jimena Dsouza Rn 12/06 asleep is on vent, with rectal tube, and gtube, labs ordered 12/07 with rectal tube, gtube phillips, labs noted, no bleeding, hgb 10.8 Objective Objective Current Medications Medications (Trade) Dose Ordered Sig/Robyn Route PRN Reason Start Time Stop Time Status Last Admin Dose Admin Acetaminophen (Tylenol) 650 mg Q4H PRN GT For Pain 11/30/19 17:45 12/30/19 17:44 11/30/19 18:24 Acetaminophen (Tylenol) 650 mg Q6H PRN GT Temp >100.5 11/29/19 15:00 12/12/19 14:59 12/07/19 13:32 Amiodarone HCl (Cordarone) 200 mg DAILY GT 12/04/19 09:00 02/18/20 09:29 12/07/19 08:34 Clonidine HCl (Catapres Tab) 0.1 mg Q4H PRN GT For High Blood Pressure 11/29/19 14:30 02/09/20 14:29 Dextrose (Dextrose 50%) 25 ml Q30M PRN IV Hypoglycemia 11/29/19 14:15 02/21/20 06:44 Dextrose (Dextrose 50%) 50 ml Q30M PRN IV Hypoglycemia 11/29/19 14:15 02/21/20 06:44 Famotidine (Pepcid) 20 mg BID GT 11/29/19 18:00 02/26/20 17:59 12/07/19 17:46 Folic Acid (Folate) 2 mg DAILY GT 11/30/19 09:00 12/15/19 08:59 12/07/19 08:34 Insulin Aspart (NovoLOG) EVERY 6 HOURS SUBQ 12/07/19 18:00 03/06/20 17:59 Insulin Detemir (Levemir) 8 units BID SUBQ 12/08/19 09:00 02/21/20 08:59 Lorazepam (Ativan 2mg/ml 1ml) 2 mg Q3H PRN IV For Anxiety 12/03/19 21:45 12/10/19 21:44 12/06/19 05:58 Metolazone (Zaroxolyn) 2.5 mg DAILY GT 11/30/19 09:00 12/28/19 09:29 12/07/19 08:34 Metoprolol Tartrate (Lopressor) 25 mg Q12HR GT 11/29/19 21:00 02/18/20 09:29 12/07/19 21:28 Vancomycin HCl (Firvanq) 125 mg FOUR TIMES A DAY GT 12/01/19 13:00 12/10/19 23:59 12/07/19 21:16 Last 24 Hour Vital Signs Date Time Temp Pulse Resp B/P (MAP) Pulse Ox O2 Delivery O2 Flow Rate FiO2 12/08/19 05:02 75 17 35 12/08/19 04:00 98.0 78 18 144/74 (97) 100 12/08/19 04:00 Mechanical Ventilator Mechanical Ventilator 12/08/19 03:30 81 12/08/19 03:20 74 20 35 12/08/19 02:00 40 12/08/19 02:00 Mechanical Ventilator Mechanical Ventilator 12/08/19 01:09 78 22 35 12/08/19 01:05 144/74 (97) 12/08/19 00:00 Mechanical Ventilator Trach Collar 12/08/19 00:00 40 12/08/19 00:00 98.3 81 18 158/86 (110) 100 12/07/19 23:32 78 12/07/19 23:09 75 23 12/07/19 21:28 85 169/98 12/07/19 21:03 103 23 12/07/19 20:00 Mechanical Ventilator Trach Collar 12/07/19 20:00 98.6 77 24 149/79 (102) 97 12/07/19 20:00 40 12/07/19 19:16 97 Trach Collar 40.0 35 12/07/19 19:16 96 21 12/07/19 19:03 98 12/07/19 17:30 100 12/07/19 16:01 115 12/07/19 16:00 Mechanical Ventilator Mechanical Ventilator 12/07/19 16:00 99.1 93 18 151/83 (105) 97 12/07/19 16:00 100 12/07/19 16:00 40 12/07/19 14:02 100.2 12/07/19 13:28 115 12/07/19 12:00 103 12/07/19 12:00 40 12/07/19 12:00 100.0 70 19 147/92 (110) 97 12/07/19 12:00 Mechanical Ventilator Mechanical Ventilator 12/07/19 10:58 95 12/07/19 09:18 99 Trach Collar 10.0 40 12/07/19 08:40 98 21 40 12/07/19 08:34 86 137/74 12/07/19 08:00 40 12/07/19 08:00 94 12/07/19 08:00 Mechanical Ventilator Mechanical Ventilator 12/07/19 08:00 98.2 86 21 137/74 (95) 99 12/07/19 07:05 88 25 40 12/07/19 05:30 90 22 40 12/07/19 04:00 98.2 93 18 133/83 (100) 99 12/07/19 04:00 40 12/07/19 04:00 Mechanical Ventilator Mechanical Ventilator 12/07/19 03:42 85 12/07/19 03:20 87 19 40 12/07/19 01:20 87 22 40 12/07/19 00:00 Mechanical Ventilator Mechanical Ventilator 12/07/19 00:00 98.4 98 20 123/76 (92) 100 12/07/19 00:00 40 12/06/19 23:33 92 12/06/19 23:20 88 21 40 12/06/19 21:21 79 21 40 12/06/19 21:04 87 134/73 12/06/19 20:00 98.2 87 21 134/73 (93) 100 12/06/19 20:00 Mechanical Ventilator Mechanical Ventilator 12/06/19 20:00 40 12/06/19 19:53 95 12/06/19 19:30 80 21 40 12/06/19 17:26 81 19 40 12/06/19 16:00 89 12/06/19 16:00 Mechanical Ventilator Mechanical Ventilator 12/06/19 16:00 40 12/06/19 16:00 100.0 95 25 136/80 (98) 100 12/06/19 14:40 76 27 40 12/06/19 13:02 81 24 40 12/06/19 12:00 98.4 90 28 142/78 (99) 99 12/06/19 12:00 40 12/06/19 12:00 Mechanical Ventilator Mechanical Ventilator 12/06/19 12:00 90 12/06/19 10:52 71 20 40 12/06/19 09:14 108 32 40 12/06/19 08:20 97 12/06/19 08:16 90 124/76 12/06/19 08:00 40 12/06/19 08:00 Mechanical Ventilator Mechanical Ventilator 12/06/19 07:52 99.5 90 28 124/76 (92) 100 12/06/19 07:07 107 27 40 Intake and Output 12/07/19 12/08/19 19:00 07:00 Intake Total 600 ml 700 ml Output Total 390 ml 450 ml Balance 210 ml 250 ml Free Water 150 ml Tube Feeding 600 ml 550 ml Output Urine Total 300 ml 400 ml Stool Total 90 ml 50 ml Labs Test 12/05/19 08:51 12/05/19 11:32 12/05/19 17:02 12/05/19 17:31 POC Whole Blood Glucose 125 MG/DL (74-106) 140 MG/DL (74-106) 86 MG/DL (74-106) 96 MG/DL (74-106) Test 12/06/19 08:12 12/06/19 11:06 12/06/19 17:36 12/07/19 03:52 POC Whole Blood Glucose 141 MG/DL (74-106) 154 MG/DL (74-106) 109 MG/DL (74-106) White Blood Count 9.0 K/UL (4.8-10.8) Red Blood Count 3.62 M/UL (4.20-5.40) Hemoglobin 9.6 G/DL (12.0-16.0) Hematocrit 32.3 % (37.0-47.0) Mean Corpuscular Volume 89 FL (80-99) Mean Corpuscular Hemoglobin 26.4 PG (27.0-31.0) Mean Corpuscular Hemoglobin Concent 29.6 G/DL (32.0-36.0) Red Cell Distribution Width 19.1 % (11.6-14.8) Platelet Count 327 K/UL (150-450) Mean Platelet Volume 5.8 FL (6.5-10.1) Neutrophils (%) (Auto) 79.9 % (45.0-75.0) Lymphocytes (%) (Auto) 10.6 % (20.0-45.0) Monocytes (%) (Auto) 6.9 % (1.0-10.0) Eosinophils (%) (Auto) 1.6 % (0.0-3.0) Basophils (%) (Auto) 1.0 % (0.0-2.0) Sodium Level 145 MMOL/L (136-145) Potassium Level 3.8 MMOL/L (3.5-5.1) Chloride Level 104 MMOL/L (98-107) Carbon Dioxide Level 36 MMOL/L (21-32) Anion Gap 6 mmol/L (5-15) Blood Urea Nitrogen 17 mg/dL (7-18) Creatinine 0.5 MG/DL (0.55-1.30) Estimat Glomerular Filtration Rate > 60 mL/min (>60) Glucose Level 77 MG/DL (74-106) Calcium Level 8.0 MG/DL (8.5-10.1) Phosphorus Level 3.5 MG/DL (2.5-4.9) Magnesium Level 1.9 MG/DL (1.8-2.4) Total Bilirubin 0.6 MG/DL (0.2-1.0) Aspartate Amino Transf (AST/SGOT) 39 U/L (15-37) Alanine Aminotransferase (ALT/SGPT) 32 U/L (12-78) Alkaline Phosphatase 175 U/L (46-116) C-Reactive Protein, Quantitative 8.8 mg/dL (0.00-0.90) Pro-B-Type Natriuretic Peptide 2778 pg/mL (0-125) Total Protein 6.4 G/DL (6.4-8.2) Albumin 1.8 G/DL (3.4-5.0) Globulin 4.6 g/dL Albumin/Globulin Ratio 0.4 (1.0-2.7) Test 12/07/19 08:35 12/07/19 12:57 12/07/19 17:42 12/08/19 03:15 POC Whole Blood Glucose 109 MG/DL (74-106) 128 MG/DL (74-106) 124 MG/DL (74-106) White Blood Count 7.8 K/UL (4.8-10.8) Red Blood Count 4.07 M/UL (4.20-5.40) Hemoglobin 10.8 G/DL (12.0-16.0) Hematocrit 36.6 % (37.0-47.0) Mean Corpuscular Volume 90 FL (80-99) Mean Corpuscular Hemoglobin 26.4 PG (27.0-31.0) Mean Corpuscular Hemoglobin Concent 29.4 G/DL (32.0-36.0) Red Cell Distribution Width 18.7 % (11.6-14.8) Platelet Count 309 K/UL (150-450) Mean Platelet Volume 5.4 FL (6.5-10.1) Neutrophils (%) (Auto) 75.9 % (45.0-75.0) Lymphocytes (%) (Auto) 15.0 % (20.0-45.0) Monocytes (%) (Auto) 6.5 % (1.0-10.0) Eosinophils (%) (Auto) 1.3 % (0.0-3.0) Basophils (%) (Auto) 1.3 % (0.0-2.0) Height (Feet): 5 Height (Inches): 1.00 Weight (Pounds): 273 Objective Physical Exam: Vitals: reviewed General: NAD HEENT: nc, at Neck: supple Chest: clear breath sounds on vent++trach+ Cardiovascular: RRR, no s3, s4 Abdomen: soft, nontender, nd++peg Extremities: no cce, normal range of motion, left foot swelling+ Neuro: alert and oriented Ismael Fischer MD Dec 08, 2019 06:36
--- NOTE | 2019-12-08 09:10 | General Progress Note ---
Assessment/Plan Problem List: (1) Respiratory failure ICD Codes: J96.90 - Respiratory failure, unspecified, unspecified whether with hypoxia or hypercapnia SNOMED: 983498702 (2) 2019 novel coronavirus disease (COVID-19) ICD Codes: U07.1 - COVID-19 SNOMED: 377699262 (3) Multifocal pneumonia ICD Codes: J18.9 - Pneumonia, unspecified organism SNOMED: 275621807 (4) Afib ICD Codes: I48.91 - Unspecified atrial fibrillation SNOMED: 26985221 (5) CHF (congestive heart failure) ICD Codes: I50.9 - Heart failure, unspecified SNOMED: 55456836 (6) Diabetes ICD Codes: E11.9 - Type 2 diabetes mellitus without complications SNOMED: 10804547 (7) Fluid overload ICD Codes: E87.70 - Fluid overload, unspecified SNOMED: 33479595 (8) Epistaxis ICD Codes: R04.0 - Epistaxis SNOMED: 325468075 Status: stable, progressing Assessment/Plan: fu H&H prn blood transfusion slow drop in H&H without obvious bleeding repeat stool ob>>neg GTF patient has rectal tube will fu Subjective ROS Limited/Unobtainable: No Allergies: Coded Allergies: No Known Allergies (Unverified , 11/06/19) Objective Last 24 Hour Vital Signs Date Time Temp Pulse Resp B/P (MAP) Pulse Ox O2 Delivery O2 Flow Rate FiO2 12/08/19 08:47 89 12/08/19 07:20 80 12/08/19 07:19 100 Trach Collar 8.0 35 12/08/19 05:02 75 17 35 12/08/19 04:00 98.0 78 18 144/74 (97) 100 12/08/19 04:00 Mechanical Ventilator Mechanical Ventilator 12/08/19 03:30 81 12/08/19 03:20 74 20 35 12/08/19 02:00 40 12/08/19 02:00 Mechanical Ventilator Mechanical Ventilator 12/08/19 01:09 78 22 35 12/08/19 01:05 144/74 (97) 12/08/19 00:00 Mechanical Ventilator Trach Collar 12/08/19 00:00 40 12/08/19 00:00 98.3 81 18 158/86 (110) 100 8/17/20 23:32 78 12/07/19 23:09 75 23 12/07/19 21:28 85 169/98 12/07/19 21:03 103 23 12/07/19 20:00 Mechanical Ventilator Trach Collar 12/07/19 20:00 98.6 77 24 149/79 (102) 97 12/07/19 20:00 40 12/07/19 19:16 97 Trach Collar 40.0 35 12/07/19 19:16 96 21 12/07/19 19:03 98 12/07/19 17:30 100 12/07/19 16:01 115 12/07/19 16:00 Mechanical Ventilator Mechanical Ventilator 12/07/19 16:00 99.1 93 18 151/83 (105) 97 12/07/19 16:00 100 12/07/19 16:00 40 12/07/19 14:02 100.2 12/07/19 13:28 115 12/07/19 12:00 103 12/07/19 12:00 40 12/07/19 12:00 100.0 70 19 147/92 (110) 97 12/07/19 12:00 Mechanical Ventilator Mechanical Ventilator 12/07/19 10:58 95 12/07/19 09:18 99 Trach Collar 10.0 40 Intake and Output 12/07/19 12/08/19 19:00 07:00 Intake Total 600 ml 750 ml Output Total 390 ml 450 ml Balance 210 ml 300 ml Free Water 150 ml Tube Feeding 600 ml 600 ml Output Urine Total 300 ml 400 ml Stool Total 90 ml 50 ml Laboratory Tests 12/07/19 12:57: POC Whole Blood Glucose 128H 12/07/19 17:42: POC Whole Blood Glucose 124H 12/08/19 03:15: White Blood Count 7.8, Red Blood Count 4.07L, Hemoglobin 10.8L, Hematocrit 36.6L , Mean Corpuscular Volume 90, Mean Corpuscular Hemoglobin 26.4L, Mean Corpuscular Hemoglobin Concent 29.4L, Red Cell Distribution Width 18.7H, Platelet Count 309, Mean Platelet Volume 5.4L, Neutrophils (%) (Auto) 75.9H, Lymphocytes (%) (Auto) 15.0L, Monocytes (%) (Auto) 6.5, Eosinophils (%) (Auto) 1.3, Basophils (%) (Auto) 1.3 Height (Feet): 5 Height (Inches): 1.00 Weight (Pounds): 273 General Appearance: no apparent distress EENT: normal ENT inspection Neck: supple Cardiovascular: normal rate Respiratory/Chest: decreased breath sounds Abdomen: normal bowel sounds, non tender, soft Extremities: non-tender Case Patel MD Dec 08, 2019 09:10
[2019-12-08] MEDS: Vancomycin oral 125mg/2.5ml GT SCH ×4 (09:14→20:42)
[2019-12-08] MEDS: metOLazone 2.5 MG TAB GT SCH (09:15)
[2019-12-08] MEDS: Amiodarone 200mg tab GT SCH (09:15)
[2019-12-08] MEDS: Levemir Flexpen SUBQ SCH ×2 (09:20→17:55)
--- NOTE | 2019-12-08 10:55 | Infectious Diseases Prog Note ---
"Assessment/Plan Assessment/Plan antibiotics : vancomycin po 8.11.20 - A 1. COVID 19 pneumonia s/p remdesivir s/p ivermectin 7.31.20 COVID test negative x 2 2. respiratory failure s/p tracheostomy 3. leucocytosis resolved 4. diabetes mellitus 5. hypertension 6. obesity 7. enterobacter | proteus | staph aureus pneumonia s/p rx 8. c.diff colitis repeat test negative P 1. continue po vancomycin 2 more days 2. will follow up cultures 3. continue isolation Subjective ROS Limited/Unobtainable: Yes Allergies: Coded Allergies: No Known Allergies (Unverified , 11/06/19) Objective Last 24 Hour Vital Signs Date Time Temp Pulse Resp B/P (MAP) Pulse Ox O2 Delivery O2 Flow Rate FiO2 12/08/19 10:37 71 12/08/19 09:15 90 166/71 12/08/19 09:00 40 12/08/19 08:47 89 12/08/19 08:46 100 12/08/19 08:00 97.5 86 20 150/79 (102) 100 12/08/19 08:00 Mechanical Ventilator Mechanical Ventilator 12/08/19 07:20 80 12/08/19 07:19 100 Trach Collar 8.0 35 12/08/19 05:02 75 17 35 12/08/19 04:00 98.0 78 18 144/74 (97) 100 12/08/19 04:00 Mechanical Ventilator Mechanical Ventilator 12/08/19 03:30 81 12/08/19 03:20 74 20 35 12/08/19 02:00 40 12/08/19 02:00 Mechanical Ventilator Mechanical Ventilator 12/08/19 01:09 78 22 35 12/08/19 01:05 144/74 (97) 12/08/19 00:00 Mechanical Ventilator Trach Collar 12/08/19 00:00 40 12/08/19 00:00 98.3 81 18 158/86 (110) 100 12/07/19 23:32 78 12/07/19 23:09 75 23 12/07/19 21:28 85 169/98 12/07/19 21:03 103 23 12/07/19 20:00 Mechanical Ventilator Trach Collar 12/07/19 20:00 98.6 77 24 149/79 (102) 97 12/07/19 20:00 40 12/07/19 19:16 97 Trach Collar 40.0 35 12/07/19 19:16 96 21 12/07/19 19:03 98 12/07/19 17:30 100 12/07/19 16:01 115 12/07/19 16:00 Mechanical Ventilator Mechanical Ventilator 12/07/19 16:00 99.1 93 18 151/83 (105) 97 12/07/19 16:00 100 12/07/19 16:00 40 12/07/19 14:02 100.2 12/07/19 13:28 115 12/07/19 12:00 103 12/07/19 12:00 40 12/07/19 12:00 100.0 70 19 147/92 (110) 97 12/07/19 12:00 Mechanical Ventilator Mechanical Ventilator 12/07/19 10:58 95 Height (Feet): 5 Height (Inches): 1.00 Weight (Pounds): 273 HEENT: other - on T tube Respiratory/Chest: lungs clear Cardiovascular: normal rate, regular rhythm, no gallop/murmur Abdomen: soft, non tender, other - GT Extremities: other - + edema Microbiology Date/Time Source Procedure Growth Status 12/07/19 17:05 Stool Clostridium difficile Toxin Assay - Final Complete Laboratory Tests Test 12/07/19 12:57 12/07/19 17:42 12/08/19 03:15 12/08/19 09:17 POC Whole Blood Glucose 128 MG/DL (74-106) H 124 MG/DL (74-106) H Pending White Blood Count 7.8 K/UL (4.8-10.8) Red Blood Count 4.07 M/UL (4.20-5.40) L Hemoglobin 10.8 G/DL (12.0-16.0) L Hematocrit 36.6 % (37.0-47.0) L Mean Corpuscular Volume 90 FL (80-99) Mean Corpuscular Hemoglobin 26.4 PG (27.0-31.0) L Mean Corpuscular Hemoglobin Concent 29.4 G/DL (32.0-36.0) L Red Cell Distribution Width 18.7 % (11.6-14.8) H Platelet Count 309 K/UL (150-450) Mean Platelet Volume 5.4 FL (6.5-10.1) L Neutrophils (%) (Auto) 75.9 % (45.0-75.0) H Lymphocytes (%) (Auto) 15.0 % (20.0-45.0) L Monocytes (%) (Auto) 6.5 % (1.0-10.0) Eosinophils (%) (Auto) 1.3 % (0.0-3.0) Basophils (%) (Auto) 1.3 % (0.0-2.0) Current Medications Medications (Trade) Dose Ordered Sig/Robyn Route PRN Reason Start Time Stop Time Status Last Admin Dose Admin Acetaminophen (Tylenol) 650 mg Q4H PRN GT For Pain 11/30/19 17:45 12/30/19 17:44 11/30/19 18:24 Acetaminophen (Tylenol) 650 mg Q6H PRN GT Temp >100.5 11/29/19 15:00 12/12/19 14:59 12/07/19 13:32 Amiodarone HCl (Cordarone) 200 mg DAILY GT 12/04/19 09:00 02/18/20 09:29 12/08/19 09:15 Clonidine HCl (Catapres Tab) 0.1 mg Q4H PRN GT For High Blood Pressure 11/29/19 14:30 02/09/20 14:29 Dextrose (Dextrose 50%) 25 ml Q30M PRN IV Hypoglycemia 11/29/19 14:15 02/21/20 06:44 Dextrose (Dextrose 50%) 50 ml Q30M PRN IV Hypoglycemia 11/29/19 14:15 02/21/20 06:44 Famotidine (Pepcid) 20 mg BID GT 11/29/19 18:00 02/26/20 17:59 12/08/19 09:14 Folic Acid (Folate) 2 mg DAILY GT 11/30/19 09:00 12/15/19 08:59 12/08/19 09:14 Insulin Aspart (NovoLOG) EVERY 6 HOURS SUBQ 12/07/19 18:00 03/06/20 17:59 Insulin Detemir (Levemir) 8 units BID SUBQ 12/08/19 09:00 02/21/20 08:59 12/08/19 09:20 Lorazepam (Ativan 2mg/ml 1ml) 2 mg Q3H PRN IV For Anxiety 12/03/19 21:45 12/10/19 21:44 12/06/19 05:58 Metolazone (Zaroxolyn) 2.5 mg DAILY GT 11/30/19 09:00 12/28/19 09:29 12/08/19 09:15 Metoprolol Tartrate (Lopressor) 25 mg Q12HR GT 11/29/19 21:00 02/18/20 09:29 12/08/19 09:15 Vancomycin HCl (Firvanq) 125 mg FOUR TIMES A DAY GT 12/01/19 13:00 12/10/19 23:59 12/08/19 09:14 Rosette Bowman MD Dec 08, 2019 10:55"
--- NOTE | 2019-12-08 11:00 | Pulmonology Progress Note ---
Subjective ROS Limited/Unobtainable: Yes Interval Events: Re-intubated on 11/19/19; Status post tracheostomy 11/24/2019 Constitutional: Denies: fever HEENT: Repors: no symptoms Respiratory: Reports: dry cough, shortness of breath Cardiovascular: Reports: no symptoms Gastrointestinal/Abdominal: Reports: diarrhea Musculoskeletal: Denies: pain Allergies: Coded Allergies: No Known Allergies (Unverified , 11/06/19) All Systems: reviewed and negative except above Objective Last 24 Hour Vital Signs Date Time Temp Pulse Resp B/P (MAP) Pulse Ox O2 Delivery O2 Flow Rate FiO2 12/08/19 10:37 71 12/08/19 09:15 90 166/71 12/08/19 09:00 40 12/08/19 08:47 89 12/08/19 08:46 100 12/08/19 08:00 97.5 86 20 150/79 (102) 100 12/08/19 08:00 Mechanical Ventilator Mechanical Ventilator 12/08/19 07:20 80 12/08/19 07:19 100 Trach Collar 8.0 35 12/08/19 05:02 75 17 35 12/08/19 04:00 98.0 78 18 144/74 (97) 100 12/08/19 04:00 Mechanical Ventilator Mechanical Ventilator 12/08/19 03:30 81 12/08/19 03:20 74 20 35 12/08/19 02:00 40 12/08/19 02:00 Mechanical Ventilator Mechanical Ventilator 12/08/19 01:09 78 22 35 12/08/19 01:05 144/74 (97) 12/08/19 00:00 Mechanical Ventilator Trach Collar 12/08/19 00:00 40 12/08/19 00:00 98.3 81 18 158/86 (110) 100 12/07/19 23:32 78 12/07/19 23:09 75 23 12/07/19 21:28 85 169/98 12/07/19 21:03 103 23 12/07/19 20:00 Mechanical Ventilator Trach Collar 12/07/19 20:00 98.6 77 24 149/79 (102) 97 12/07/19 20:00 40 12/07/19 19:16 97 Trach Collar 40.0 35 12/07/19 19:16 96 21 12/07/19 19:03 98 12/07/19 17:30 100 12/07/19 16:01 115 12/07/19 16:00 Mechanical Ventilator Mechanical Ventilator 12/07/19 16:00 99.1 93 18 151/83 (105) 97 12/07/19 16:00 100 12/07/19 16:00 40 12/07/19 14:02 100.2 12/07/19 13:28 115 12/07/19 12:00 103 12/07/19 12:00 40 12/07/19 12:00 100.0 70 19 147/92 (110) 97 12/07/19 12:00 Mechanical Ventilator Mechanical Ventilator Intake and Output 12/07/19 12/08/19 19:00 07:00 Intake Total 600 ml 750 ml Output Total 390 ml 450 ml Balance 210 ml 300 ml Free Water 150 ml Tube Feeding 600 ml 600 ml Output Urine Total 300 ml 400 ml Stool Total 90 ml 50 ml General Appearance: no acute distress HEENT: normocephalic, status post trach Respiratory: decreased breath sounds Cardiovascular: normal peripheral pulses Abdomen: normal bowel sounds Extremities: no cyanosis Microbiology Date/Time Source Procedure Growth Status 12/07/19 17:05 Stool Clostridium difficile Toxin Assay - Final Complete Laboratory Tests 12/07/19 12:57: POC Whole Blood Glucose 128H 12/07/19 17:42: POC Whole Blood Glucose 124H 12/08/19 03:15: White Blood Count 7.8, Red Blood Count 4.07L, Hemoglobin 10.8L, Hematocrit 36.6L , Mean Corpuscular Volume 90, Mean Corpuscular Hemoglobin 26.4L, Mean Corpuscular Hemoglobin Concent 29.4L, Red Cell Distribution Width 18.7H, Platelet Count 309, Mean Platelet Volume 5.4L, Neutrophils (%) (Auto) 75.9H, Lymphocytes (%) (Auto) 15.0L, Monocytes (%) (Auto) 6.5, Eosinophils (%) (Auto) 1.3, Basophils (%) (Auto) 1.3 12/08/19 09:17: POC Whole Blood Glucose [Pending] Current Medications Medications (Trade) Dose Ordered Sig/Robyn Route PRN Reason Start Time Stop Time Status Last Admin Dose Admin Acetaminophen (Tylenol) 650 mg Q4H PRN GT For Pain 11/30/19 17:45 12/30/19 17:44 11/30/19 18:24 Acetaminophen (Tylenol) 650 mg Q6H PRN GT Temp >100.5 11/29/19 15:00 12/12/19 14:59 12/07/19 13:32 Amiodarone HCl (Cordarone) 200 mg DAILY GT 12/04/19 09:00 02/18/20 09:29 12/08/19 09:15 Clonidine HCl (Catapres Tab) 0.1 mg Q4H PRN GT For High Blood Pressure 11/29/19 14:30 02/09/20 14:29 Dextrose (Dextrose 50%) 25 ml Q30M PRN IV Hypoglycemia 11/29/19 14:15 02/21/20 06:44 Dextrose (Dextrose 50%) 50 ml Q30M PRN IV Hypoglycemia 11/29/19 14:15 02/21/20 06:44 Famotidine (Pepcid) 20 mg BID GT 11/29/19 18:00 02/26/20 17:59 12/08/19 09:14 Folic Acid (Folate) 2 mg DAILY GT 11/30/19 09:00 12/15/19 08:59 12/08/19 09:14 Insulin Aspart (NovoLOG) EVERY 6 HOURS SUBQ 12/07/19 18:00 03/06/20 17:59 Insulin Detemir (Levemir) 8 units BID SUBQ 12/08/19 09:00 02/21/20 08:59 12/08/19 09:20 Lorazepam (Ativan 2mg/ml 1ml) 2 mg Q3H PRN IV For Anxiety 12/03/19 21:45 12/10/19 21:44 12/06/19 05:58 Metolazone (Zaroxolyn) 2.5 mg DAILY GT 11/30/19 09:00 12/28/19 09:29 12/08/19 09:15 Metoprolol Tartrate (Lopressor) 25 mg Q12HR GT 11/29/19 21:00 02/18/20 09:29 12/08/19 09:15 Vancomycin HCl (Firvanq) 125 mg FOUR TIMES A DAY GT 12/01/19 13:00 12/10/19 23:59 12/08/19 09:14 Assessment/Plan Assessment/Plan IMPRESSION: 1. COVID-19 pneumonia. 2. Diabetes mellitus and hypertension. 3. Lactic acidemia. 4. Epistaxis 5. Respiratory failure; failed extubation 6. S/p trach/PEG DISCUSSION: Careful and close monitoring. Continue medications status post tracheostomy Begin weaning; trach collar S/p PEG no longer on Lasix I will follow carefully Noted C. diff positive Dc planning to sub-acute Lakeisha Zavaleta Omar Syed MD Dec 08, 2019 11:00
[2019-12-08] MEDS ORDERED: Sterile Water Irrig 1000ml IRRIG ONE (13:14)
--- NOTE | 2019-12-08 13:27 | General Progress Note ---
Assessment/Plan Problem List: (1) Weak ICD Codes: R53.1 - Weakness SNOMED: 87188652 (2) UTI (urinary tract infection) ICD Codes: N39.0 - Urinary tract infection, site not specified SNOMED: 95653287 (3) Respiratory failure ICD Codes: J96.90 - Respiratory failure, unspecified, unspecified whether with hypoxia or hypercapnia SNOMED: 803677029 (4) Electrolyte imbalance ICD Codes: E87.8 - Other disorders of electrolyte and fluid balance, not elsewhere classified SNOMED: 209250190 (5) Fluid overload ICD Codes: E87.70 - Fluid overload, unspecified SNOMED: 62962886 (6) Diabetes ICD Codes: E11.9 - Type 2 diabetes mellitus without complications SNOMED: 40903633 (7) CHF (congestive heart failure) ICD Codes: I50.9 - Heart failure, unspecified SNOMED: 94100488 (8) Hypoxia ICD Codes: R09.02 - Hypoxemia SNOMED: 654624489 (9) Afib ICD Codes: I48.91 - Unspecified atrial fibrillation SNOMED: 35004247 (10) Multifocal pneumonia ICD Codes: J18.9 - Pneumonia, unspecified organism SNOMED: 606875407 Status: stable, progressing Assessment/Plan: niddm not hypoxic afebrile reviewed chart and labs chf Subjective ROS Limited/Unobtainable: Yes Allergies: Coded Allergies: No Known Allergies (Unverified , 11/06/19) Objective Last 24 Hour Vital Signs Date Time Temp Pulse Resp B/P (MAP) Pulse Ox O2 Delivery O2 Flow Rate FiO2 12/08/19 12:44 87 12/08/19 10:37 71 12/08/19 09:15 90 166/71 12/08/19 09:00 40 12/08/19 08:47 89 12/08/19 08:46 100 12/08/19 08:00 86 12/08/19 08:00 97.5 86 20 150/79 (102) 100 12/08/19 08:00 Mechanical Ventilator Mechanical Ventilator 12/08/19 07:20 80 12/08/19 07:19 100 Trach Collar 8.0 35 12/08/19 05:02 75 17 35 12/08/19 04:00 98.0 78 18 144/74 (97) 100 12/08/19 04:00 Mechanical Ventilator Mechanical Ventilator 12/08/19 03:30 81 12/08/19 03:20 74 20 35 12/08/19 02:00 40 12/08/19 02:00 Mechanical Ventilator Mechanical Ventilator 12/08/19 01:09 78 22 35 12/08/19 01:05 144/74 (97) 12/08/19 00:00 Mechanical Ventilator Trach Collar 12/08/19 00:00 40 12/08/19 00:00 98.3 81 18 158/86 (110) 100 12/07/19 23:32 78 12/07/19 23:09 75 23 12/07/19 21:28 85 169/98 12/07/19 21:03 103 23 12/07/19 20:00 Mechanical Ventilator Trach Collar 12/07/19 20:00 98.6 77 24 149/79 (102) 97 12/07/19 20:00 40 12/07/19 19:16 97 Trach Collar 40.0 35 12/07/19 19:16 96 21 12/07/19 19:03 98 12/07/19 17:30 100 12/07/19 16:01 115 12/07/19 16:00 Mechanical Ventilator Mechanical Ventilator 12/07/19 16:00 99.1 93 18 151/83 (105) 97 12/07/19 16:00 100 12/07/19 16:00 40 12/07/19 14:02 100.2 12/07/19 13:28 115 Intake and Output 12/07/19 12/08/19 19:00 07:00 Intake Total 600 ml 750 ml Output Total 390 ml 450 ml Balance 210 ml 300 ml Free Water 150 ml Tube Feeding 600 ml 600 ml Output Urine Total 300 ml 400 ml Stool Total 90 ml 50 ml Laboratory Tests 12/07/19 17:42: POC Whole Blood Glucose 124H 12/08/19 03:15: White Blood Count 7.8, Red Blood Count 4.07L, Hemoglobin 10.8L, Hematocrit 36.6L , Mean Corpuscular Volume 90, Mean Corpuscular Hemoglobin 26.4L, Mean Corpuscular Hemoglobin Concent 29.4L, Red Cell Distribution Width 18.7H, Platelet Count 309, Mean Platelet Volume 5.4L, Neutrophils (%) (Auto) 75.9H, Lymphocytes (%) (Auto) 15.0L, Monocytes (%) (Auto) 6.5, Eosinophils (%) (Auto) 1.3, Basophils (%) (Auto) 1.3 12/08/19 09:17: POC Whole Blood Glucose [Pending] 12/08/19 12:19: POC Whole Blood Glucose [Pending] Height (Feet): 5 Height (Inches): 1.00 Weight (Pounds): 273 Darius Real MD Dec 08, 2019 13:27
--- NOTE | 2019-12-08 13:31 | Nephrology Progress Note ---
Assessment/Plan Problem List: (1) Electrolyte imbalance (2) Diabetes (3) 2019 novel coronavirus disease (COVID-19) (4) Respiratory failure Assessment 1. COVID-19 pneumonia. 2. Diabetes and hyperglycemia 3. Hypertension. 4. Hypoxic respiratory failure 5. Morbid obesity with BMI of 65.5 6. Nasal bleeding 7. Lactic acidosis 8. Hyperkalemia Plan December 07: No chemistry panel done today. Patient is stable from renal standpoint of view. December 06: Reviewed. Renal parameters stable. Continue per consultants. December 05: Renal parameters stable. Will check labs tomorrow. Continue per consultants. December 04: Stable renal parameters. Continue per consultants. December 03: Renal parameters stable. Continue per consultants. December 02: Remains stable from renal standpoint of view. Electrolyte abnormalities addressed and corrected. December 01: Remains stable from renal standpoint of view. November 30: Lab reviewed. Renal parameters stable. Continue per consultants. November 29: Lab reviewed. Renal parameters stable. Continue per consultants. November 28: Lab reviewed. Phosphorus supplement given. Discussed with RN. Continue to monitor renal parameters. November 27: Lab reviewed. Serum sodium improved. Will start low-dose Zaroxolyn. Change IV Pepcid to GT route. Remains full code. Monitor renal parameters and electrolytes. November 26: Lab reviewed. Serum sodium elevated. 500 cc D5W bolus given. Potassium supplement given. Patient remains full code. Continue per consultants. November 25: Lab reviewed. Patient has trach connected to vent. Patient also has PEG. Continue per consultants. Medication list reviewed. November 24: Lab reviewed. Potassium IV given. Has tracheostomy to vent. Has PEG. Continue per consultants. November 23: Labs reviewed. Creatinine higher to 1.4. Due for trach today. Suggest to stop IV Lasix. November 22: Renal parameters stable. Medication list reviewed. Continue same management per consultants. November 21: Renal parameters stable. On IV Lasix. Edematous. Will order few doses of albumin 25%. Continue per consultants. November 20: Repeat serum potassium again normal. Renal parameters normal. Continue per consultants. November 19: Repeat serum potassium normal. Renal parameters within normal limit. Continue per consultants. November 18: Levemir stopped since IV fluid and dexamethasone are discontinued and patient blood sugar went down. Renal parameters are stable. Continues to be on ventilator. Previously: Renal parameters stable Weaning is being attempted patient's urine output is low. We will give a trial of albumin and Lasix, As needed Discussed with RN Stop IV to D5W 75 cc an hour Levemir 20 units subcu every 12 hours Kayexalate for high potassium as needed Monitor electrolytes and renal parameters Tight blood sugar control, long-acting insulin as needed Keep the blood pressure in check Per orders Subjective ROS Limited/Unobtainable: Yes Objective Objective Last 24 Hour Vital Signs Date Time Temp Pulse Resp B/P (MAP) Pulse Ox O2 Delivery O2 Flow Rate FiO2 12/08/19 12:44 87 12/08/19 10:37 71 12/08/19 09:15 90 166/71 12/08/19 09:00 40 12/08/19 08:47 89 12/08/19 08:46 100 12/08/19 08:00 86 12/08/19 08:00 97.5 86 20 150/79 (102) 100 12/08/19 08:00 Mechanical Ventilator Mechanical Ventilator 12/08/19 07:20 80 12/08/19 07:19 100 Trach Collar 8.0 35 12/08/19 05:02 75 17 35 12/08/19 04:00 98.0 78 18 144/74 (97) 100 12/08/19 04:00 Mechanical Ventilator Mechanical Ventilator 12/08/19 03:30 81 12/08/19 03:20 74 20 35 12/08/19 02:00 40 12/08/19 02:00 Mechanical Ventilator Mechanical Ventilator 12/08/19 01:09 78 22 35 12/08/19 01:05 144/74 (97) 12/08/19 00:00 Mechanical Ventilator Trach Collar 12/08/19 00:00 40 12/08/19 00:00 98.3 81 18 158/86 (110) 100 12/07/19 23:32 78 12/07/19 23:09 75 23 12/07/19 21:28 85 169/98 12/07/19 21:03 103 23 12/07/19 20:00 Mechanical Ventilator Trach Collar 12/07/19 20:00 98.6 77 24 149/79 (102) 97 12/07/19 20:00 40 12/07/19 19:16 97 Trach Collar 40.0 35 12/07/19 19:16 96 21 12/07/19 19:03 98 12/07/19 17:30 100 12/07/19 16:01 115 12/07/19 16:00 Mechanical Ventilator Mechanical Ventilator 12/07/19 16:00 99.1 93 18 151/83 (105) 97 12/07/19 16:00 100 12/07/19 16:00 40 12/07/19 14:02 100.2 Intake and Output 12/07/19 12/08/19 19:00 07:00 Intake Total 600 ml 750 ml Output Total 390 ml 450 ml Balance 210 ml 300 ml Free Water 150 ml Tube Feeding 600 ml 600 ml Output Urine Total 300 ml 400 ml Stool Total 90 ml 50 ml Laboratory Tests 12/07/19 17:42: POC Whole Blood Glucose 124H 12/08/19 03:15: White Blood Count 7.8, Red Blood Count 4.07L, Hemoglobin 10.8L, Hematocrit 36.6L , Mean Corpuscular Volume 90, Mean Corpuscular Hemoglobin 26.4L, Mean Corpuscular Hemoglobin Concent 29.4L, Red Cell Distribution Width 18.7H, Platelet Count 309, Mean Platelet Volume 5.4L, Neutrophils (%) (Auto) 75.9H, Lymphocytes (%) (Auto) 15.0L, Monocytes (%) (Auto) 6.5, Eosinophils (%) (Auto) 1.3, Basophils (%) (Auto) 1.3 12/08/19 09:17: POC Whole Blood Glucose [Pending] 12/08/19 12:19: POC Whole Blood Glucose [Pending] Height (Feet): 5 Height (Inches): 1.00 Weight (Pounds): 273 General Appearance: no apparent distress EENT: other - Trach to vent Cardiovascular: tachycardia Respiratory/Chest: decreased breath sounds Abdomen: distended Papa Young MD Dec 08, 2019 13:31
--- NOTE | 2019-12-08 14:39 | Surgery Progress Note ---
Surgery Progress Note Subjective Procedure Performed tracheostomy Additional Comments comfortable no n/v on tc tolerating feeds Objective Last 24 Hour Vital Signs Date Time Temp Pulse Resp B/P (MAP) Pulse Ox O2 Delivery O2 Flow Rate FiO2 12/08/19 12:44 87 12/08/19 12:00 98.0 80 20 141/84 (103) 100 12/08/19 12:00 Mechanical Ventilator Mechanical Ventilator 12/08/19 12:00 35 12/08/19 10:37 71 12/08/19 09:15 90 166/71 12/08/19 09:00 40 12/08/19 08:47 89 12/08/19 08:46 100 12/08/19 08:00 86 12/08/19 08:00 97.5 86 20 150/79 (102) 100 12/08/19 08:00 Mechanical Ventilator Mechanical Ventilator 12/08/19 07:20 80 12/08/19 07:19 100 Trach Collar 8.0 35 12/08/19 05:02 75 17 35 12/08/19 04:00 98.0 78 18 144/74 (97) 100 12/08/19 04:00 Mechanical Ventilator Mechanical Ventilator 12/08/19 03:30 81 12/08/19 03:20 74 20 35 12/08/19 02:00 40 12/08/19 02:00 Mechanical Ventilator Mechanical Ventilator 12/08/19 01:09 78 22 35 12/08/19 01:05 144/74 (97) 12/08/19 00:00 Mechanical Ventilator Trach Collar 12/08/19 00:00 40 12/08/19 00:00 98.3 81 18 158/86 (110) 100 12/07/19 23:32 78 12/07/19 23:09 75 23 12/07/19 21:28 85 169/98 12/07/19 21:03 103 23 12/07/19 20:00 Mechanical Ventilator Trach Collar 12/07/19 20:00 98.6 77 24 149/79 (102) 97 12/07/19 20:00 40 12/07/19 19:16 97 Trach Collar 40.0 35 12/07/19 19:16 96 21 12/07/19 19:03 98 12/07/19 17:30 100 12/07/19 16:01 115 12/07/19 16:00 Mechanical Ventilator Mechanical Ventilator 12/07/19 16:00 99.1 93 18 151/83 (105) 97 12/07/19 16:00 100 12/07/19 16:00 40 I&O Intake and Output 12/07/19 12/08/19 19:00 07:00 Intake Total 600 ml 750 ml Output Total 390 ml 450 ml Balance 210 ml 300 ml Free Water 150 ml Tube Feeding 600 ml 600 ml Output Urine Total 300 ml 400 ml Stool Total 90 ml 50 ml Dressing: saturated Wound: clean Cardiovascular: RSR Respiratory: decreased breath sounds Abdomen: soft, non-tender, present bowel sounds Extremities: edema, no tenderness, no cyanosis Laboratory Tests Test 12/07/19 17:42 12/08/19 03:15 12/08/19 09:17 12/08/19 12:19 POC Whole Blood Glucose 124 MG/DL (74-106) H Pending Pending White Blood Count 7.8 K/UL (4.8-10.8) Red Blood Count 4.07 M/UL (4.20-5.40) L Hemoglobin 10.8 G/DL (12.0-16.0) L Hematocrit 36.6 % (37.0-47.0) L Mean Corpuscular Volume 90 FL (80-99) Mean Corpuscular Hemoglobin 26.4 PG (27.0-31.0) L Mean Corpuscular Hemoglobin Concent 29.4 G/DL (32.0-36.0) L Red Cell Distribution Width 18.7 % (11.6-14.8) H Platelet Count 309 K/UL (150-450) Mean Platelet Volume 5.4 FL (6.5-10.1) L Neutrophils (%) (Auto) 75.9 % (45.0-75.0) H Lymphocytes (%) (Auto) 15.0 % (20.0-45.0) L Monocytes (%) (Auto) 6.5 % (1.0-10.0) Eosinophils (%) (Auto) 1.3 % (0.0-3.0) Basophils (%) (Auto) 1.3 % (0.0-2.0) Plan Problems: (1) Weak (2) UTI (urinary tract infection) (3) Hypoxia (4) Epistaxis Assessment & Plan: Severe after taxis left nostril Rhino Rocket placed hemostasis noted over the course 24 hours hemoglobin stable Lovenox been stopped. The balloon of both ports of the Rhino Rocket were deflated today. The rocket itself was not removed and will monitor over the course next 24 hours hemostasis. If so will gently remove and plan for local monitoring. Currently wean ventilator as tolerated. Goals of extubation when possible. deflated balloon 11/08 removed trumpet 11/09 will monitor for bleeding wean vent plan extubation discussed with pulm (5) Fluid overload Assessment & Plan: Continue central venous catheter for now. Will anticipate removal once patient stable for extubation. Thank you for allowing me to participate patient's care picc in line out (6) Diabetes (7) CHF (congestive heart failure) (8) Afib (9) Multifocal pneumonia (10) 2019 novel coronavirus disease (COVID-19) Assessment & Plan: + wean vent extubated failed reintubated consider trach plan trach 8/4 s/p trach comfortable (11) Respiratory failure Assessment & Plan: trach dislodged 11/29 with air leak evaluated at bedside and repositioned. improved now will monitor stable monitoring tolerating trach collar Ortiz Fleming Dec 08, 2019 14:39
--- NOTE | 2019-12-08 17:34 | Cardiac Electrophysiology PN ---
Assessment/Plan Assessment/Plan 1. Paroxysmal atrial fibrillation. On metoprolol 25 bid and Amiodarone 200 daily Off anticoagulation for hematuria and black stool EF 55% on echo. 2. S/P Shock. Off pressors. 3. COVID positive pneumonia. Now off isolation 4. Diabetes, on insulin. 5. Respiratory failure. S/P Tracheostomy 11/24/19. Back on vent today with 35% Fio2 6. S/P Massive nasal bleed. 7. Severe LE edema.On Metolazone 8. Dysphagia, S/P PEG 11/25/19 [address]. C Diff. FU Dr Hernandez DW RN DC to [facility] pending Subjective Subjective Off Covid isolation. S/P tracheostomy 11/24/19 and PEG 11/25/19. Back on vent today with 35% Fio2 In atrial fib rate controlled on Lopressor 25 bid. Still has diarrhea and positive for C Diff. DC to [facility] pending Objective Last 24 Hour Vital Signs Date Time Temp Pulse Resp B/P (MAP) Pulse Ox O2 Delivery O2 Flow Rate FiO2 12/08/19 16:55 99 12/08/19 16:00 93 12/08/19 14:56 92 12/08/19 12:44 87 12/08/19 12:00 98.0 80 20 141/84 (103) 100 12/08/19 12:00 Mechanical Ventilator Mechanical Ventilator 12/08/19 12:00 35 12/08/19 11:44 79 12/08/19 10:37 71 12/08/19 09:15 90 166/71 12/08/19 09:00 40 12/08/19 08:47 89 12/08/19 08:46 100 12/08/19 08:00 86 12/08/19 08:00 97.5 86 20 150/79 (102) 100 12/08/19 08:00 Mechanical Ventilator Mechanical Ventilator 12/08/19 07:20 80 12/08/19 07:19 100 Trach Collar 8.0 35 12/08/19 05:02 75 17 35 12/08/19 04:00 98.0 78 18 144/74 (97) 100 12/08/19 04:00 Mechanical Ventilator Mechanical Ventilator 12/08/19 03:30 81 12/08/19 03:20 74 20 35 12/08/19 02:00 40 12/08/19 02:00 Mechanical Ventilator Mechanical Ventilator 12/08/19 01:09 78 22 35 12/08/19 01:05 144/74 (97) 12/08/19 00:00 Mechanical Ventilator Trach Collar 12/08/19 00:00 40 12/08/19 00:00 98.3 81 18 158/86 (110) 100 12/07/19 23:32 78 12/07/19 23:09 75 23 12/07/19 21:28 85 169/98 12/07/19 21:03 103 23 12/07/19 20:00 Mechanical Ventilator Trach Collar 12/07/19 20:00 98.6 77 24 149/79 (102) 97 12/07/19 20:00 40 12/07/19 19:16 97 Trach Collar 40.0 35 12/07/19 19:16 96 21 12/07/19 19:03 98 Intake and Output 12/07/19 12/08/19 19:00 07:00 Intake Total 600 ml 750 ml Output Total 390 ml 450 ml Balance 210 ml 300 ml Free Water 150 ml Tube Feeding 600 ml 600 ml Output Urine Total 300 ml 400 ml Stool Total 90 ml 50 ml Laboratory Tests Test 12/07/19 17:42 12/08/19 03:15 12/08/19 09:17 12/08/19 12:19 POC Whole Blood Glucose 124 MG/DL (74-106) H Pending Pending White Blood Count 7.8 K/UL (4.8-10.8) Red Blood Count 4.07 M/UL (4.20-5.40) L Hemoglobin 10.8 G/DL (12.0-16.0) L Hematocrit 36.6 % (37.0-47.0) L Mean Corpuscular Volume 90 FL (80-99) Mean Corpuscular Hemoglobin 26.4 PG (27.0-31.0) L Mean Corpuscular Hemoglobin Concent 29.4 G/DL (32.0-36.0) L Red Cell Distribution Width 18.7 % (11.6-14.8) H Platelet Count 309 K/UL (150-450) Mean Platelet Volume 5.4 FL (6.5-10.1) L Neutrophils (%) (Auto) 75.9 % (45.0-75.0) H Lymphocytes (%) (Auto) 15.0 % (20.0-45.0) L Monocytes (%) (Auto) 6.5 % (1.0-10.0) Eosinophils (%) (Auto) 1.3 % (0.0-3.0) Basophils (%) (Auto) 1.3 % (0.0-2.0) Microbiology Date/Time Source Procedure Growth Status 12/07/19 17:05 Stool Clostridium difficile Toxin Assay - Final Complete Objective HEAD AND NECK: No JVD. Tracheostomy in place. LUNGS: Coarse rhonchi. CARDIOVASCULAR: Irregularly irregular. S1 and S2 with no gallop or murmur. ABDOMEN: Soft.PEG EXTREMITIES: 2 plus pitting edema. Gabe Snell MD Dec 08, 2019 17:34
[2019-12-09] VITALS: BP 135/86
[2019-12-09 04:00] VITALS: BP 138/69
[2019-12-09] MEDS: NovoLOG Insulin Flexpen SUBQ SCH ×5 (05:31→23:25)
--- NOTE | 2019-12-09 06:25 | General Progress Note ---
Assessment/Plan Problem List: (1) Hypoxia ICD Codes: R09.02 - Hypoxemia SNOMED: 028758630 (2) CHF (congestive heart failure) ICD Codes: I50.9 - Heart failure, unspecified SNOMED: 57237697 (3) Diabetes ICD Codes: E11.9 - Type 2 diabetes mellitus without complications SNOMED: 75015130 (4) Fluid overload ICD Codes: E87.70 - Fluid overload, unspecified SNOMED: 72003300 (5) 2019 novel coronavirus disease (COVID-19) ICD Codes: U07.1 - COVID-19 SNOMED: 506203591 Status: stable, progressing Assessment/Plan: continue Levemir 8 units bid continue Novolog sliding scale every 6 hours hypoglycemia protocol in order repeat thyroid function improved - no need for thyroid medication Subjective ROS Limited/Unobtainable: Yes Allergies: Coded Allergies: No Known Allergies (Unverified , 11/06/19) Subjective events noted glucose values are stable trach - vent TF tolerated Item Value Date Time Bedside Blood Glucose 104 mg/dl 12/09/19 0600 Bedside Blood Glucose 82 mg/dl 12/09/19 0000 Bedside Blood Glucose 122 mg/dl H 12/08/19 1800 Bedside Blood Glucose 152 mg/dl H 12/08/19 1221 Bedside Blood Glucose 139 mg/dl H 12/08/19 0920 Bedside Blood Glucose 106 mg/dl 12/08/19 0600 Bedside Blood Glucose 116 mg/dl 12/07/19 2332 Objective Last 24 Hour Vital Signs Date Time Temp Pulse Resp B/P (MAP) Pulse Ox O2 Delivery O2 Flow Rate FiO2 12/09/19 05:19 93 21 35 12/09/19 04:00 99.0 97 18 138/69 (92) 100 12/09/19 04:00 Mechanical Ventilator Mechanical Ventilator 12/09/19 04:00 40 12/09/19 03:35 69 12/09/19 03:05 88 16 35 12/09/19 00:49 88 18 35 12/09/19 00:00 40 12/09/19 00:00 Mechanical Ventilator Mechanical Ventilator 12/09/19 00:00 98.3 84 18 135/86 (102) 100 12/08/19 23:33 80 12/08/19 23:09 85 23 35 12/08/19 20:56 80 15 35 12/08/19 20:42 84 144/94 12/08/19 20:00 40 12/08/19 20:00 98.8 84 28 144/94 (111) 100 12/08/19 20:00 Mechanical Ventilator Mechanical Ventilator 12/08/19 19:24 94 12/08/19 18:40 100 Mechanical Ventilator 35 12/08/19 18:40 95 21 35 12/08/19 16:55 99 12/08/19 16:00 93 12/08/19 16:00 98.8 71 28 151/100 (117) 100 12/08/19 16:00 35 12/08/19 16:00 Mechanical Ventilator Mechanical Ventilator 12/08/19 14:56 92 12/08/19 12:44 87 12/08/19 12:00 98.0 80 20 141/84 (103) 100 12/08/19 12:00 Mechanical Ventilator Mechanical Ventilator 12/08/19 12:00 35 12/08/19 11:44 79 12/08/19 10:37 71 12/08/19 09:15 90 166/71 12/08/19 09:00 40 12/08/19 08:47 89 12/08/19 08:46 100 12/08/19 08:00 86 12/08/19 08:00 97.5 86 20 150/79 (102) 100 12/08/19 08:00 Mechanical Ventilator Mechanical Ventilator 12/08/19 07:20 80 12/08/19 07:19 100 Trach Collar 8.0 35 Intake and Output 12/08/19 12/09/19 19:00 07:00 Intake Total 640 ml 580 ml Output Total 500 ml 500 ml Balance 140 ml 80 ml Free Water 90 ml 30 ml Tube Feeding 550 ml 550 ml Output Urine Total 300 ml 500 ml Stool Total 200 ml Laboratory Tests 12/08/19 09:17: POC Whole Blood Glucose [Pending] 12/08/19 12:19: POC Whole Blood Glucose [Pending] 12/08/19 17:52: POC Whole Blood Glucose [Pending] 12/09/19 00:08: POC Whole Blood Glucose 82 12/09/19 05:28: POC Whole Blood Glucose 104 Height (Feet): 5 Height (Inches): 1.00 Weight (Pounds): 275 Objective Current Medications Medications (Trade) Dose Ordered Sig/Robyn Route PRN Reason Start Time Stop Time Status Last Admin Dose Admin Acetaminophen (Tylenol) 650 mg Q4H PRN GT For Pain 11/30/19 17:45 12/30/19 17:44 11/30/19 18:24 Acetaminophen (Tylenol) 650 mg Q6H PRN GT Temp >100.5 11/29/19 15:00 12/12/19 14:59 12/07/19 13:32 Amiodarone HCl (Cordarone) 200 mg DAILY GT 12/04/19 09:00 02/18/20 09:29 12/08/19 09:15 Clonidine HCl (Catapres Tab) 0.1 mg Q4H PRN GT For High Blood Pressure 11/29/19 14:30 02/09/20 14:29 Dextrose (Dextrose 50%) 25 ml Q30M PRN IV Hypoglycemia 11/29/19 14:15 02/21/20 06:44 Dextrose (Dextrose 50%) 50 ml Q30M PRN IV Hypoglycemia 11/29/19 14:15 02/21/20 06:44 Famotidine (Pepcid) 20 mg BID GT 11/29/19 18:00 02/26/20 17:59 12/08/19 17:54 Folic Acid (Folate) 2 mg DAILY GT 11/30/19 09:00 12/15/19 08:59 12/08/19 09:14 Insulin Aspart (NovoLOG) EVERY 6 HOURS SUBQ 12/07/19 18:00 03/06/20 17:59 12/08/19 12:21 Insulin Detemir (Levemir) 8 units BID SUBQ 12/08/19 09:00 02/21/20 08:59 12/08/19 17:55 Lorazepam (Ativan 2mg/ml 1ml) 2 mg Q3H PRN IV For Anxiety 12/03/19 21:45 12/10/19 21:44 12/06/19 05:58 Metolazone (Zaroxolyn) 2.5 mg DAILY GT 11/30/19 09:00 12/28/19 09:29 12/08/19 09:15 Metoprolol Tartrate (Lopressor) 25 mg Q12HR GT 11/29/19 21:00 02/18/20 09:29 12/08/19 20:42 Vancomycin HCl (Firvanq) 125 mg FOUR TIMES A DAY GT 12/01/19 13:00 12/10/19 23:59 12/08/19 20:42 Alphonse Ojeda MD Dec 09, 2019 06:25
--- NOTE | 2019-12-09 07:04 | Hematology/Onc Progress Note ---
Assessment/Plan Assessment/Plan # Anemia of chronic disease due to underlying chronic medical issues, multifactorial v Gi bleed in this case likely related covid19+++++++++ --> Anemia workup has been ordered, rule out gi bleed --> No evidence of hemolysis is noted, peripheral smear has been reviewed. --> Hgb goal >7. Transfuse prn. --> Epogen or iron at this time is not particularly indicated --> Medications have been reviewed --> low threshold for gi evaluation in case has occult + --> hgb 10-->9.8-->9.2-->9.7-->10.7->10->11->10.2->10.6->9.4->10.8->9.8-->10->10 -->9.2->9 # Leukocytosis/elevated white blood cell count, unspecified likely related to covid19 --> have reviewed peripheral smear and bandemia/neutrophilia noted --> continue antibiotics if they have been started by ID team zosyn --> on remdesivir, dexamathasone --> monitor for resolution --> wbc 12->11-->11-->13->16-->21-->17-->14-->14->13-->11 # COVID 19 pneumonia --> on vent --> respiratory failure --> s/p vent reintubation 11/08 --> 11/23 trach was done # Diabetes mellitus --> iss and bs goal <140 # Dysphagia --> peg 11/24 # Hypertension --> sbp goal <150 # Dvt ppx scds Appreciate consultation and jimena RN Subjective HEENT: Denies: no symptoms, eye pain, blurred vision, tearing, double vision, ear pain, ear discharge, nose pain, nose congestion, throat pain, throat swelling, mouth pain, mouth swelling, other Respiratory: Denies: no symptoms, cough, shortness of breath, SOB with excertion, SOB at rest, sputum, wheezing, other Gastrointestinal/Abdominal: Denies: no symptoms, abdomen distended, abdominal pain, black stools, tarry stools, blood in stool, constipated, diarrhea, difficulty swallowing, nausea, poor appetite, poor fluid intake, rectal bleeding , vomiting, other Genitourinary: Denies: no symptoms, burning, discharge, frequency, flank pain, hematuria, incontinence, pain, urgency, other Neurologic/Psychiatric: Denies: no symptoms, anxiety, depressed, emotional problems, headache, numbness, paresthesia, pre-existing deficit, seizure, tingling, tremors, weakness, other Endocrine: Denies: no symptoms, excessive sweating, flushing, intolerance to cold, intolerance to heat, increased hunger, increased thirst, increased urine, unexplained weight gain, unexplained weight loss, other Hematologic/Lymphatic: Denies: no symptoms, anemia, easy bleeding, easy bruising, adenopathy, other Allergies: Coded Allergies: No Known Allergies (Unverified , 11/06/19) Subjective 11/09 weaning prn, meds reviewed, labs noted, hgb 9.2 11/10 on vent, no bleeding, hgb remains low, jimena Rn Jose R in am 11/11 on vent, fluids, ogf tube as well, labs pending in am 11/12 remains altered, no bleeding, labs reviewed, cbc noted 11/13 attempted weaning, but did not do well, no bleeding, hgb 10 11/14 intubated, weaning, on vent, with og, labs noted, abx 11/15 labs noted, no bleedign, weaning protocol, no night sweats, elev wbc, with fevers 11/16 no bleeding, jimena Broussard rn in the am, on vent, weaning but failed 11/17 meds reviewed, no night sweats, jimena rn, no bleeding 11/18 extubated, on nc at this time, no bleeding, meds reviewed 11/19 labs noted, no bleeding, on vent again, weaning 11/21 labs reviewed, hgb 9.4, no hemolysis, very difficult to obtain repeat lab draw in am 11/22 unable to wean vent, labs noted, plan for trach tomorrow, on fentanyl, still edematous 11/23 is for trach today and peg tomorrow, stil edematous, on lasix gtt 11/24 meds noted, no bleeding, on vent, for peg this am, trach functional 11/25 labs reviewed, no bleeding, meds noted, obtunded, hr better 11/26 picc line continues to leak, no bleeding, labs noted, low grade fever, id aware 12/03 remains altered, labs noted, no bleeding, hgb remains low, tmax 99.7f 12/04 no bleeding, left foot swollen, for duplex lower ext r/o dvt 12/05 is to have duplex for tomorrow, otherwise no changes, for cbc this am, jimena Dsouza Rn 12/06 asleep is on vent, with rectal tube, and gtube, labs ordered 12/07 with rectal tube, gtube phillips, labs noted, no bleeding, hgb 10.8 12/08 labs are noted, no bleeding, on glucerna, ivfs, labs noted, jimena walker Objective Objective Current Medications Medications (Trade) Dose Ordered Sig/Robyn Route PRN Reason Start Time Stop Time Status Last Admin Dose Admin Acetaminophen (Tylenol) 650 mg Q4H PRN GT For Pain 11/30/19 17:45 12/30/19 17:44 11/30/19 18:24 Acetaminophen (Tylenol) 650 mg Q6H PRN GT Temp >100.5 11/29/19 15:00 12/12/19 14:59 12/07/19 13:32 Amiodarone HCl (Cordarone) 200 mg DAILY GT 12/04/19 09:00 02/18/20 09:29 12/08/19 09:15 Clonidine HCl (Catapres Tab) 0.1 mg Q4H PRN GT For High Blood Pressure 11/29/19 14:30 02/09/20 14:29 Dextrose (Dextrose 50%) 25 ml Q30M PRN IV Hypoglycemia 11/29/19 14:15 02/21/20 06:44 Dextrose (Dextrose 50%) 50 ml Q30M PRN IV Hypoglycemia 11/29/19 14:15 02/21/20 06:44 Famotidine (Pepcid) 20 mg BID GT 11/29/19 18:00 02/26/20 17:59 12/08/19 17:54 Folic Acid (Folate) 2 mg DAILY GT 11/30/19 09:00 12/15/19 08:59 12/08/19 09:14 Insulin Aspart (NovoLOG) EVERY 6 HOURS SUBQ 12/07/19 18:00 03/06/20 17:59 12/08/19 12:21 Insulin Detemir (Levemir) 8 units BID SUBQ 12/08/19 09:00 02/21/20 08:59 12/08/19 17:55 Lorazepam (Ativan 2mg/ml 1ml) 2 mg Q3H PRN IV For Anxiety 12/03/19 21:45 12/10/19 21:44 12/06/19 05:58 Metolazone (Zaroxolyn) 2.5 mg DAILY GT 11/30/19 09:00 12/28/19 09:29 12/08/19 09:15 Metoprolol Tartrate (Lopressor) 25 mg Q12HR GT 11/29/19 21:00 02/18/20 09:29 12/08/19 20:42 Vancomycin HCl (Firvanq) 125 mg FOUR TIMES A DAY GT 12/01/19 13:00 12/10/19 23:59 12/08/19 20:42 Last 24 Hour Vital Signs Date Time Temp Pulse Resp B/P (MAP) Pulse Ox O2 Delivery O2 Flow Rate FiO2 12/09/19 05:19 93 21 35 12/09/19 04:00 99.0 97 18 138/69 (92) 100 12/09/19 04:00 Mechanical Ventilator Mechanical Ventilator 12/09/19 04:00 40 12/09/19 03:35 69 12/09/19 03:05 88 16 35 12/09/19 00:49 88 18 35 12/09/19 00:00 40 12/09/19 00:00 Mechanical Ventilator Mechanical Ventilator 12/09/19 00:00 98.3 84 18 135/86 (102) 100 12/08/19 23:33 80 12/08/19 23:09 85 23 35 12/08/19 20:56 80 15 35 12/08/19 20:42 84 144/94 12/08/19 20:00 40 12/08/19 20:00 98.8 84 28 144/94 (111) 100 12/08/19 20:00 Mechanical Ventilator Mechanical Ventilator 12/08/19 19:24 94 12/08/19 18:40 100 Mechanical Ventilator 35 12/08/19 18:40 95 21 35 12/08/19 16:55 99 12/08/19 16:00 93 12/08/19 16:00 98.8 71 28 151/100 (117) 100 12/08/19 16:00 35 12/08/19 16:00 Mechanical Ventilator Mechanical Ventilator 12/08/19 14:56 92 12/08/19 12:44 87 12/08/19 12:00 98.0 80 20 141/84 (103) 100 12/08/19 12:00 Mechanical Ventilator Mechanical Ventilator 12/08/19 12:00 35 12/08/19 11:44 79 12/08/19 10:37 71 12/08/19 09:15 90 166/71 12/08/19 09:00 40 12/08/19 08:47 89 12/08/19 08:46 100 12/08/19 08:00 86 12/08/19 08:00 97.5 86 20 150/79 (102) 100 12/08/19 08:00 Mechanical Ventilator Mechanical Ventilator 12/08/19 07:20 80 12/08/19 07:19 100 Trach Collar 8.0 35 12/08/19 05:02 75 17 35 12/08/19 04:00 98.0 78 18 144/74 (97) 100 12/08/19 04:00 Mechanical Ventilator Mechanical Ventilator 12/08/19 03:30 81 12/08/19 03:20 74 20 35 12/08/19 02:00 40 12/08/19 02:00 Mechanical Ventilator Mechanical Ventilator 12/08/19 01:09 78 22 35 12/08/19 01:05 144/74 (97) 12/08/19 00:00 Mechanical Ventilator Trach Collar 12/08/19 00:00 40 12/08/19 00:00 98.3 81 18 158/86 (110) 100 12/07/19 23:32 78 12/07/19 23:09 75 23 12/07/19 21:28 85 169/98 12/07/19 21:03 103 23 12/07/19 20:00 Mechanical Ventilator Trach Collar 12/07/19 20:00 98.6 77 24 149/79 (102) 97 12/07/19 20:00 40 12/07/19 19:16 97 Trach Collar 8.0 35 12/07/19 19:16 96 21 12/07/19 19:03 98 12/07/19 17:30 100 12/07/19 16:01 115 12/07/19 16:00 Mechanical Ventilator Mechanical Ventilator 12/07/19 16:00 99.1 93 18 151/83 (105) 97 12/07/19 16:00 100 12/07/19 16:00 40 12/07/19 14:02 100.2 12/07/19 13:28 115 12/07/19 12:00 103 12/07/19 12:00 40 12/07/19 12:00 100.0 70 19 147/92 (110) 97 12/07/19 12:00 Mechanical Ventilator Mechanical Ventilator 12/07/19 10:58 95 12/07/19 09:18 99 Trach Collar 10.0 40 12/07/19 08:40 98 21 40 12/07/19 08:34 86 137/74 12/07/19 08:00 40 12/07/19 08:00 94 12/07/19 08:00 Mechanical Ventilator Mechanical Ventilator 12/07/19 08:00 98.2 86 21 137/74 (95) 99 12/07/19 07:05 88 25 40 Intake and Output 12/08/19 12/09/19 19:00 07:00 Intake Total 640 ml 580 ml Output Total 500 ml 500 ml Balance 140 ml 80 ml Free Water 90 ml 30 ml Tube Feeding 550 ml 550 ml Output Urine Total 300 ml 500 ml Stool Total 200 ml Labs Test 12/06/19 08:12 12/06/19 11:06 12/06/19 17:36 12/07/19 03:52 POC Whole Blood Glucose 141 MG/DL (74-106) 154 MG/DL (74-106) 109 MG/DL (74-106) White Blood Count 9.0 K/UL (4.8-10.8) Red Blood Count 3.62 M/UL (4.20-5.40) Hemoglobin 9.6 G/DL (12.0-16.0) Hematocrit 32.3 % (37.0-47.0) Mean Corpuscular Volume 89 FL (80-99) Mean Corpuscular Hemoglobin 26.4 PG (27.0-31.0) Mean Corpuscular Hemoglobin Concent 29.6 G/DL (32.0-36.0) Red Cell Distribution Width 19.1 % (11.6-14.8) Platelet Count 327 K/UL (150-450) Mean Platelet Volume 5.8 FL (6.5-10.1) Neutrophils (%) (Auto) 79.9 % (45.0-75.0) Lymphocytes (%) (Auto) 10.6 % (20.0-45.0) Monocytes (%) (Auto) 6.9 % (1.0-10.0) Eosinophils (%) (Auto) 1.6 % (0.0-3.0) Basophils (%) (Auto) 1.0 % (0.0-2.0) Sodium Level 145 MMOL/L (136-145) Potassium Level 3.8 MMOL/L (3.5-5.1) Chloride Level 104 MMOL/L (98-107) Carbon Dioxide Level 36 MMOL/L (21-32) Anion Gap 6 mmol/L (5-15) Blood Urea Nitrogen 17 mg/dL (7-18) Creatinine 0.5 MG/DL (0.55-1.30) Estimat Glomerular Filtration Rate > 60 mL/min (>60) Glucose Level 77 MG/DL (74-106) Calcium Level 8.0 MG/DL (8.5-10.1) Phosphorus Level 3.5 MG/DL (2.5-4.9) Magnesium Level 1.9 MG/DL (1.8-2.4) Total Bilirubin 0.6 MG/DL (0.2-1.0) Aspartate Amino Transf (AST/SGOT) 39 U/L (15-37) Alanine Aminotransferase (ALT/SGPT) 32 U/L (12-78) Alkaline Phosphatase 175 U/L (46-116) C-Reactive Protein, Quantitative 8.8 mg/dL (0.00-0.90) Pro-B-Type Natriuretic Peptide 2778 pg/mL (0-125) Total Protein 6.4 G/DL (6.4-8.2) Albumin 1.8 G/DL (3.4-5.0) Globulin 4.6 g/dL Albumin/Globulin Ratio 0.4 (1.0-2.7) Test 12/07/19 08:35 12/07/19 12:57 12/07/19 17:42 12/08/19 03:15 POC Whole Blood Glucose 109 MG/DL (74-106) 128 MG/DL (74-106) 124 MG/DL (74-106) White Blood Count 7.8 K/UL (4.8-10.8) Red Blood Count 4.07 M/UL (4.20-5.40) Hemoglobin 10.8 G/DL (12.0-16.0) Hematocrit 36.6 % (37.0-47.0) Mean Corpuscular Volume 90 FL (80-99) Mean Corpuscular Hemoglobin 26.4 PG (27.0-31.0) Mean Corpuscular Hemoglobin Concent 29.4 G/DL (32.0-36.0) Red Cell Distribution Width 18.7 % (11.6-14.8) Platelet Count 309 K/UL (150-450) Mean Platelet Volume 5.4 FL (6.5-10.1) Neutrophils (%) (Auto) 75.9 % (45.0-75.0) Lymphocytes (%) (Auto) 15.0 % (20.0-45.0) Monocytes (%) (Auto) 6.5 % (1.0-10.0) Eosinophils (%) (Auto) 1.3 % (0.0-3.0) Basophils (%) (Auto) 1.3 % (0.0-2.0) Test 12/08/19 09:17 12/08/19 12:19 12/08/19 17:52 12/09/19 00:08 POC Whole Blood Glucose 82 MG/DL (74-106) Test 12/09/19 05:28 POC Whole Blood Glucose 104 MG/DL (74-106) Height (Feet): 5 Height (Inches): 1.00 Weight (Pounds): 275 Objective Physical Exam: Vitals: reviewed General: NAD HEENT: nc, at Neck: supple Chest: clear breath sounds on vent++trach+ Cardiovascular: RRR, no s3, s4 Abdomen: soft, nontender, nd++peg Extremities: no cce, normal range of motion, left foot swelling+ Neuro: alert and oriented Ismael Fischer MD Dec 09, 2019 07:04
[2019-12-09 08:00] VITALS: BP 146/76
[2019-12-09] MEDS: metOLazone 2.5 MG TAB GT SCH (08:51)
[2019-12-09] MEDS: Vancomycin oral 125mg/2.5ml GT SCH ×4 (08:51→20:10)
[2019-12-09] MEDS: Amiodarone 200mg tab GT SCH (08:51)
[2019-12-09] MEDS: Levemir Flexpen SUBQ SCH ×2 (08:54→17:31)
--- NOTE | 2019-12-09 09:34 | General Progress Note ---
Assessment/Plan Problem List: (1) Respiratory failure ICD Codes: J96.90 - Respiratory failure, unspecified, unspecified whether with hypoxia or hypercapnia SNOMED: 291667673 (2) 2019 novel coronavirus disease (COVID-19) ICD Codes: U07.1 - COVID-19 SNOMED: 133734465 (3) Multifocal pneumonia ICD Codes: J18.9 - Pneumonia, unspecified organism SNOMED: 122988775 (4) Afib ICD Codes: I48.91 - Unspecified atrial fibrillation SNOMED: 26531960 (5) CHF (congestive heart failure) ICD Codes: I50.9 - Heart failure, unspecified SNOMED: 94290093 (6) Diabetes ICD Codes: E11.9 - Type 2 diabetes mellitus without complications SNOMED: 56211276 (7) Fluid overload ICD Codes: E87.70 - Fluid overload, unspecified SNOMED: 87487270 (8) Epistaxis ICD Codes: R04.0 - Epistaxis SNOMED: 534561524 Status: stable, progressing Assessment/Plan: fu H&H prn blood transfusion slow drop in H&H without obvious bleeding repeat stool ob>>neg GTF patient has rectal tube will fu Subjective ROS Limited/Unobtainable: No Allergies: Coded Allergies: No Known Allergies (Unverified , 11/06/19) Objective Last 24 Hour Vital Signs Date Time Temp Pulse Resp B/P (MAP) Pulse Ox O2 Delivery O2 Flow Rate FiO2 12/09/19 09:06 92 18 12/09/19 09:05 100 12/09/19 08:51 91 146/76 12/09/19 08:00 98.8 91 23 146/76 (99) 98 12/09/19 07:56 104 12/09/19 07:28 100 Trach Collar 8.0 35 12/09/19 07:25 94 12/09/19 05:19 93 21 35 12/09/19 04:00 99.0 97 18 138/69 (92) 100 12/09/19 04:00 Mechanical Ventilator Mechanical Ventilator 12/09/19 04:00 40 12/09/19 03:35 69 12/09/19 03:05 88 16 35 12/09/19 00:49 88 18 35 12/09/19 00:00 40 12/09/19 00:00 Mechanical Ventilator Mechanical Ventilator 12/09/19 00:00 98.3 84 18 135/86 (102) 100 12/08/19 23:33 80 12/08/19 23:09 85 23 35 12/08/19 20:56 80 15 35 12/08/19 20:42 84 144/94 12/08/19 20:00 40 12/08/19 20:00 98.8 84 28 144/94 (111) 100 12/08/19 20:00 Mechanical Ventilator Mechanical Ventilator 12/08/19 19:24 94 12/08/19 18:40 100 Mechanical Ventilator 35 12/08/19 18:40 95 21 35 12/08/19 16:55 99 12/08/19 16:00 93 12/08/19 16:00 98.8 71 28 151/100 (117) 100 12/08/19 16:00 35 12/08/19 16:00 Mechanical Ventilator Mechanical Ventilator 12/08/19 14:56 92 12/08/19 12:44 87 12/08/19 12:00 98.0 80 20 141/84 (103) 100 12/08/19 12:00 Mechanical Ventilator Mechanical Ventilator 12/08/19 12:00 35 12/08/19 11:44 79 12/08/19 10:37 71 Intake and Output 12/08/19 12/09/19 19:00 07:00 Intake Total 640 ml 630 ml Output Total 500 ml 500 ml Balance 140 ml 130 ml Free Water 90 ml 30 ml Tube Feeding 550 ml 600 ml Output Urine Total 300 ml 500 ml Stool Total 200 ml Laboratory Tests 12/08/19 12:19: POC Whole Blood Glucose [Pending] 12/08/19 17:52: POC Whole Blood Glucose [Pending] 12/09/19 00:08: POC Whole Blood Glucose 82 12/09/19 05:28: POC Whole Blood Glucose 104 12/09/19 08:54: POC Whole Blood Glucose 113H Height (Feet): 5 Height (Inches): 1.00 Weight (Pounds): 275 General Appearance: no apparent distress EENT: normal ENT inspection Neck: supple Cardiovascular: normal rate Respiratory/Chest: decreased breath sounds Abdomen: normal bowel sounds, non tender, soft Extremities: non-tender Case Patel MD Dec 09, 2019 09:34
[2019-12-09] MEDS ORDERED: LORazepam Inj 2mg/ml 1ml IV PRN (09:45)
--- NOTE | 2019-12-09 10:24 | Pulmonology Progress Note ---
Subjective ROS Limited/Unobtainable: No Interval Events: Re-intubated on 11/19/19; Status post tracheostomy 11/24/2019 Constitutional: Denies: fever HEENT: Repors: no symptoms Respiratory: Reports: dry cough, shortness of breath Cardiovascular: Reports: no symptoms Gastrointestinal/Abdominal: Reports: diarrhea Musculoskeletal: Denies: pain Allergies: Coded Allergies: No Known Allergies (Unverified , 11/06/19) All Systems: reviewed and negative except above Objective Last 24 Hour Vital Signs Date Time Temp Pulse Resp B/P (MAP) Pulse Ox O2 Delivery O2 Flow Rate FiO2 12/09/19 09:06 92 18 12/09/19 09:05 100 12/09/19 08:51 91 146/76 12/09/19 08:00 98.8 91 23 146/76 (99) 98 12/09/19 08:00 Mechanical Ventilator Mechanical Ventilator 12/09/19 08:00 35 12/09/19 07:56 104 12/09/19 07:28 100 Trach Collar 8.0 35 12/09/19 07:25 94 12/09/19 05:19 93 21 35 12/09/19 04:00 99.0 97 18 138/69 (92) 100 12/09/19 04:00 Mechanical Ventilator Mechanical Ventilator 12/09/19 04:00 40 12/09/19 03:35 69 12/09/19 03:05 88 16 35 12/09/19 00:49 88 18 35 12/09/19 00:00 40 12/09/19 00:00 Mechanical Ventilator Mechanical Ventilator 12/09/19 00:00 98.3 84 18 135/86 (102) 100 12/08/19 23:33 80 12/08/19 23:09 85 23 35 12/08/19 20:56 80 15 35 12/08/19 20:42 84 144/94 12/08/19 20:00 40 12/08/19 20:00 98.8 84 28 144/94 (111) 100 12/08/19 20:00 Mechanical Ventilator Mechanical Ventilator 12/08/19 19:24 94 12/08/19 18:40 100 Mechanical Ventilator 35 12/08/19 18:40 95 21 35 12/08/19 16:55 99 12/08/19 16:00 93 12/08/19 16:00 98.8 71 28 151/100 (117) 100 12/08/19 16:00 35 12/08/19 16:00 Mechanical Ventilator Mechanical Ventilator 12/08/19 14:56 92 12/08/19 12:44 87 12/08/19 12:00 98.0 80 20 141/84 (103) 100 12/08/19 12:00 Mechanical Ventilator Mechanical Ventilator 12/08/19 12:00 35 12/08/19 11:44 79 12/08/19 10:37 71 Intake and Output 12/08/19 12/09/19 19:00 07:00 Intake Total 640 ml 630 ml Output Total 500 ml 500 ml Balance 140 ml 130 ml Free Water 90 ml 30 ml Tube Feeding 550 ml 600 ml Output Urine Total 300 ml 500 ml Stool Total 200 ml General Appearance: no acute distress HEENT: normocephalic, status post trach Respiratory: decreased breath sounds Cardiovascular: normal peripheral pulses Abdomen: normal bowel sounds Extremities: no cyanosis Microbiology Date/Time Source Procedure Growth Status 12/07/19 17:05 Stool Clostridium difficile Toxin Assay - Final Complete Laboratory Tests 12/08/19 12:19: POC Whole Blood Glucose [Pending] 12/08/19 17:52: POC Whole Blood Glucose [Pending] 12/09/19 00:08: POC Whole Blood Glucose 82 12/09/19 05:28: POC Whole Blood Glucose 104 12/09/19 08:54: POC Whole Blood Glucose 113H Current Medications Medications (Trade) Dose Ordered Sig/Robyn Route PRN Reason Start Time Stop Time Status Last Admin Dose Admin Acetaminophen (Tylenol) 650 mg Q4H PRN GT For Pain 11/30/19 17:45 12/30/19 17:44 11/30/19 18:24 Acetaminophen (Tylenol) 650 mg Q6H PRN GT Temp >100.5 11/29/19 15:00 12/12/19 14:59 12/07/19 13:32 Amiodarone HCl (Cordarone) 200 mg DAILY GT 12/04/19 09:00 02/18/20 09:29 12/09/19 08:51 Clonidine HCl (Catapres Tab) 0.1 mg Q4H PRN GT For High Blood Pressure 11/29/19 14:30 02/09/20 14:29 Dextrose (Dextrose 50%) 25 ml Q30M PRN IV Hypoglycemia 11/29/19 14:15 02/21/20 06:44 Dextrose (Dextrose 50%) 50 ml Q30M PRN IV Hypoglycemia 11/29/19 14:15 02/21/20 06:44 Famotidine (Pepcid) 20 mg BID GT 11/29/19 18:00 02/26/20 17:59 12/09/19 08:51 Folic Acid (Folate) 2 mg DAILY GT 11/30/19 09:00 12/15/19 08:59 12/09/19 08:51 Insulin Aspart (NovoLOG) EVERY 6 HOURS SUBQ 12/07/19 18:00 03/06/20 17:59 12/08/19 12:21 Insulin Detemir (Levemir) 8 units BID SUBQ 12/08/19 09:00 02/21/20 08:59 12/09/19 08:54 Lorazepam (Ativan 2mg/ml 1ml) 2 mg Q3H PRN IV For Anxiety 12/09/19 09:45 12/16/19 09:44 Metolazone (Zaroxolyn) 2.5 mg DAILY GT 11/30/19 09:00 12/28/19 09:29 12/09/19 08:51 Metoprolol Tartrate (Lopressor) 25 mg Q12HR GT 11/29/19 21:00 02/18/20 09:29 12/09/19 08:51 Vancomycin HCl (Firvanq) 125 mg FOUR TIMES A DAY GT 12/01/19 13:00 12/10/19 23:59 12/09/19 08:51 Assessment/Plan Assessment/Plan IMPRESSION: 1. COVID-19 pneumonia. 2. Diabetes mellitus and hypertension. 3. Lactic acidemia. 4. Epistaxis 5. Respiratory failure; failed extubation 6. S/p trach/PEG DISCUSSION: Careful and close monitoring. Continue medications status post tracheostomy Begin weaning; trach collar S/p PEG no longer on Lasix I will follow carefully Noted C. diff positive Dc planning to sub-acute Lakeisha Zavaleta Omar Syed MD Dec 09, 2019 10:24
--- NOTE | 2019-12-09 10:59 | Infectious Diseases Prog Note ---
"Assessment/Plan Assessment/Plan antibiotics : vancomycin po 8.11.20 - A 1. COVID 19 pneumonia s/p remdesivir s/p ivermectin 7.31.20 COVID test negative x 2 2. respiratory failure s/p tracheostomy 3. leucocytosis resolved 4. diabetes mellitus 5. hypertension 6. obesity 7. enterobacter | proteus | staph aureus pneumonia s/p rx 8. c.diff colitis repeat test negative P 1. continue po vancomycin 1 more day 2. will follow up cultures 3. continue isolation Subjective ROS Limited/Unobtainable: Yes Allergies: Coded Allergies: No Known Allergies (Unverified , 11/06/19) Objective Last 24 Hour Vital Signs Date Time Temp Pulse Resp B/P (MAP) Pulse Ox O2 Delivery O2 Flow Rate FiO2 12/09/19 10:34 94 18 12/09/19 09:06 92 18 12/09/19 09:05 100 12/09/19 08:51 91 146/76 12/09/19 08:00 98.8 91 23 146/76 (99) 98 12/09/19 08:00 Mechanical Ventilator Mechanical Ventilator 12/09/19 08:00 35 12/09/19 07:56 104 12/09/19 07:28 100 Trach Collar 8.0 35 12/09/19 07:25 94 12/09/19 05:19 93 21 35 12/09/19 04:00 99.0 97 18 138/69 (92) 100 12/09/19 04:00 Mechanical Ventilator Mechanical Ventilator 12/09/19 04:00 40 12/09/19 03:35 69 12/09/19 03:05 88 16 35 12/09/19 00:49 88 18 35 12/09/19 00:00 40 12/09/19 00:00 Mechanical Ventilator Mechanical Ventilator 12/09/19 00:00 98.3 84 18 135/86 (102) 100 12/08/19 23:33 80 12/08/19 23:09 85 23 35 12/08/19 20:56 80 15 35 12/08/19 20:42 84 144/94 12/08/19 20:00 40 12/08/19 20:00 98.8 84 28 144/94 (111) 100 12/08/19 20:00 Mechanical Ventilator Mechanical Ventilator 12/08/19 19:24 94 12/08/19 18:40 100 Mechanical Ventilator 35 12/08/19 18:40 95 21 35 12/08/19 16:55 99 12/08/19 16:00 93 12/08/19 16:00 98.8 71 28 151/100 (117) 100 12/08/19 16:00 35 12/08/19 16:00 Mechanical Ventilator Mechanical Ventilator 12/08/19 14:56 92 12/08/19 12:44 87 12/08/19 12:00 98.0 80 20 141/84 (103) 100 12/08/19 12:00 Mechanical Ventilator Mechanical Ventilator 12/08/19 12:00 35 12/08/19 11:44 79 Height (Feet): 5 Height (Inches): 1.00 Weight (Pounds): 275 HEENT: status post trach Respiratory/Chest: lungs clear Cardiovascular: normal rate, regular rhythm, no gallop/murmur Abdomen: soft, non tender, other - GT Extremities: other - + edema Microbiology Date/Time Source Procedure Growth Status 12/07/19 17:05 Stool Clostridium difficile Toxin Assay - Final Complete Laboratory Tests Test 12/08/19 12:19 12/08/19 17:52 12/09/19 00:08 12/09/19 05:28 POC Whole Blood Glucose Pending Pending 82 MG/DL (74-106) 104 MG/DL (74-106) Test 12/09/19 08:54 POC Whole Blood Glucose 113 MG/DL (74-106) H Current Medications Medications (Trade) Dose Ordered Sig/Robyn Route PRN Reason Start Time Stop Time Status Last Admin Dose Admin Acetaminophen (Tylenol) 650 mg Q4H PRN GT For Pain 11/30/19 17:45 12/30/19 17:44 11/30/19 18:24 Acetaminophen (Tylenol) 650 mg Q6H PRN GT Temp >100.5 11/29/19 15:00 12/12/19 14:59 12/07/19 13:32 Amiodarone HCl (Cordarone) 200 mg DAILY GT 12/04/19 09:00 02/18/20 09:29 12/09/19 08:51 Clonidine HCl (Catapres Tab) 0.1 mg Q4H PRN GT For High Blood Pressure 11/29/19 14:30 02/09/20 14:29 Dextrose (Dextrose 50%) 25 ml Q30M PRN IV Hypoglycemia 11/29/19 14:15 02/21/20 06:44 Dextrose (Dextrose 50%) 50 ml Q30M PRN IV Hypoglycemia 11/29/19 14:15 02/21/20 06:44 Famotidine (Pepcid) 20 mg BID GT 11/29/19 18:00 02/26/20 17:59 12/09/19 08:51 Folic Acid (Folate) 2 mg DAILY GT 11/30/19 09:00 12/15/19 08:59 12/09/19 08:51 Insulin Aspart (NovoLOG) EVERY 6 HOURS SUBQ 12/07/19 18:00 03/06/20 17:59 12/08/19 12:21 Insulin Detemir (Levemir) 8 units BID SUBQ 12/08/19 09:00 02/21/20 08:59 12/09/19 08:54 Lorazepam (Ativan 2mg/ml 1ml) 2 mg Q3H PRN IV For Anxiety 12/09/19 09:45 12/16/19 09:44 Metolazone (Zaroxolyn) 2.5 mg DAILY GT 11/30/19 09:00 12/28/19 09:29 12/09/19 08:51 Metoprolol Tartrate (Lopressor) 25 mg Q12HR GT 11/29/19 21:00 02/18/20 09:29 12/09/19 08:51 Vancomycin HCl (Firvanq) 125 mg FOUR TIMES A DAY GT 12/01/19 13:00 12/10/19 23:59 12/09/19 08:51 Rosette Bowman MD Dec 09, 2019 10:59"
[2019-12-09 12:00] VITALS: BP 139/85
--- NOTE | 2019-12-09 12:54 | Surgery Progress Note ---
Surgery Progress Note Subjective Procedure Performed tracheostomy Additional Comments no acute events stable comfortable Objective Last 24 Hour Vital Signs Date Time Temp Pulse Resp B/P (MAP) Pulse Ox O2 Delivery O2 Flow Rate FiO2 12/09/19 12:33 92 18 12/09/19 10:34 94 18 12/09/19 09:06 92 18 12/09/19 09:05 100 12/09/19 08:51 91 146/76 12/09/19 08:00 98.8 91 23 146/76 (99) 98 12/09/19 08:00 Mechanical Ventilator Mechanical Ventilator 12/09/19 08:00 35 12/09/19 07:56 104 12/09/19 07:28 100 Trach Collar 8.0 35 12/09/19 07:25 94 12/09/19 05:19 93 21 35 12/09/19 04:00 99.0 97 18 138/69 (92) 100 12/09/19 04:00 Mechanical Ventilator Mechanical Ventilator 12/09/19 04:00 40 12/09/19 03:35 69 12/09/19 03:05 88 16 35 12/09/19 00:49 88 18 35 12/09/19 00:00 40 12/09/19 00:00 Mechanical Ventilator Mechanical Ventilator 12/09/19 00:00 98.3 84 18 135/86 (102) 100 12/08/19 23:33 80 12/08/19 23:09 85 23 35 12/08/19 20:56 80 15 35 12/08/19 20:42 84 144/94 12/08/19 20:00 40 12/08/19 20:00 98.8 84 28 144/94 (111) 100 12/08/19 20:00 Mechanical Ventilator Mechanical Ventilator 12/08/19 19:24 94 12/08/19 18:40 100 Mechanical Ventilator 35 12/08/19 18:40 95 21 35 12/08/19 16:55 99 12/08/19 16:00 93 12/08/19 16:00 98.8 71 28 151/100 (117) 100 12/08/19 16:00 35 12/08/19 16:00 Mechanical Ventilator Mechanical Ventilator 12/08/19 14:56 92 I&O Intake and Output 12/08/19 12/09/19 19:00 07:00 Intake Total 640 ml 630 ml Output Total 500 ml 500 ml Balance 140 ml 130 ml Free Water 90 ml 30 ml Tube Feeding 550 ml 600 ml Output Urine Total 300 ml 500 ml Stool Total 200 ml Dressing: other Wound: other Drains: other Cardiovascular: RSR Respiratory: decreased breath sounds Abdomen: soft, non-tender, present bowel sounds Extremities: edema, no tenderness, no cyanosis Laboratory Tests Test 12/08/19 17:52 12/09/19 00:08 12/09/19 05:28 12/09/19 08:54 POC Whole Blood Glucose Pending 82 MG/DL (74-106) 104 MG/DL (74-106) 113 MG/DL (74-106) H Test 12/09/19 11:13 POC Whole Blood Glucose Pending Plan Problems: (1) Weak (2) UTI (urinary tract infection) (3) Hypoxia (4) Epistaxis Assessment & Plan: Severe after taxis left nostril Rhino Rocket placed hemostasis noted over the course 24 hours hemoglobin stable Lovenox been stopped. The balloon of both ports of the Rhino Rocket were deflated today. The rocket itself was not removed and will monitor over the course next 24 hours hemostasis. If so will gently remove and plan for local monitoring. Currently wean ventilator as tolerated. Goals of extubation when possible. deflated balloon 11/08 removed trumpet 11/09 will monitor for bleeding wean vent plan extubation discussed with pulm (5) Fluid overload Assessment & Plan: Continue central venous catheter for now. Will anticipate removal once patient stable for extubation. Thank you for allowing me to participate patient's care picc in line out (6) Diabetes (7) CHF (congestive heart failure) (8) Afib (9) Multifocal pneumonia (10) 2019 novel coronavirus disease (COVID-19) Assessment & Plan: + wean vent extubated failed reintubated consider trach plan trach 8/ s/p trach comfortable (11) Respiratory failure Assessment & Plan: trach dislodged 11/29 with air leak evaluated at bedside and repositioned. improved now will monitor stable monitoring tolerating trach collar Ortiz Fleming Dec 09, 2019 12:54
--- NOTE | 2019-12-09 13:15 | Cardiac Electrophysiology PN ---
Assessment/Plan Assessment/Plan 1. Paroxysmal atrial fibrillation. On metoprolol 25 bid and Amiodarone 200 daily Off anticoagulation for hematuria and black stool EF 55% on echo. 2. S/P Shock. Off pressors. 3. COVID positive pneumonia. Now off isolation 4. Diabetes, on insulin. 5. Respiratory failure. S/P Tracheostomy 11/24/19. 6. S/P Massive nasal bleed. 7. Severe LE edema.On Metolazone 8. Dysphagia, S/P PEG 11/25/19 9. C Diff.Was treated . Now negative. FU Dr David SAGE RN DC to [facility] pending Subjective Subjective Off Covid isolation. S/P tracheostomy 11/24/19 and PEG 11/25/19. Off the vent In atrial fib rate controlled on Lopressor 25 bid. No more diarrhea and C Diff now negative DC to [facility] pending Objective Last 24 Hour Vital Signs Date Time Temp Pulse Resp B/P (MAP) Pulse Ox O2 Delivery O2 Flow Rate FiO2 12/09/19 12:33 92 18 12/09/19 10:34 94 18 12/09/19 09:06 92 18 12/09/19 09:05 100 12/09/19 08:51 91 146/76 12/09/19 08:00 98.8 91 23 146/76 (99) 98 12/09/19 08:00 Mechanical Ventilator Mechanical Ventilator 12/09/19 08:00 35 12/09/19 07:56 104 12/09/19 07:28 100 Trach Collar 8.0 35 12/09/19 07:25 94 12/09/19 05:19 93 21 35 12/09/19 04:00 99.0 97 18 138/69 (92) 100 12/09/19 04:00 Mechanical Ventilator Mechanical Ventilator 12/09/19 04:00 40 12/09/19 03:35 69 12/09/19 03:05 88 16 35 12/09/19 00:49 88 18 35 12/09/19 00:00 40 12/09/19 00:00 Mechanical Ventilator Mechanical Ventilator 12/09/19 00:00 98.3 84 18 135/86 (102) 100 12/08/19 23:33 80 12/08/19 23:09 85 23 35 12/08/19 20:56 80 15 35 12/08/19 20:42 84 144/94 12/08/19 20:00 40 12/08/19 20:00 98.8 84 28 144/94 (111) 100 12/08/19 20:00 Mechanical Ventilator Mechanical Ventilator 12/08/19 19:24 94 12/08/19 18:40 100 Mechanical Ventilator 35 12/08/19 18:40 95 21 35 12/08/19 16:55 99 12/08/19 16:00 93 12/08/19 16:00 98.8 71 28 151/100 (117) 100 12/08/19 16:00 35 12/08/19 16:00 Mechanical Ventilator Mechanical Ventilator 12/08/19 14:56 92 Intake and Output 12/08/19 12/09/19 19:00 07:00 Intake Total 640 ml 630 ml Output Total 500 ml 500 ml Balance 140 ml 130 ml Free Water 90 ml 30 ml Tube Feeding 550 ml 600 ml Output Urine Total 300 ml 500 ml Stool Total 200 ml Laboratory Tests Test 12/08/19 17:52 12/09/19 00:08 12/09/19 05:28 12/09/19 08:54 POC Whole Blood Glucose Pending 82 MG/DL (74-106) 104 MG/DL (74-106) 113 MG/DL (74-106) H Test 12/09/19 11:13 POC Whole Blood Glucose Pending Microbiology Date/Time Source Procedure Growth Status 12/07/19 17:05 Stool Clostridium difficile Toxin Assay - Final Complete Objective HEAD AND NECK: No JVD. Tracheostomy in place. LUNGS: Coarse rhonchi. CARDIOVASCULAR: Irregularly irregular. S1 and S2 with no gallop or murmur. ABDOMEN: Soft.PEG EXTREMITIES: 2 plus pitting edema. Gabe Snell MD Dec 09, 2019 13:15
--- NOTE | 2019-12-09 13:40 | Nephrology Progress Note ---
Assessment/Plan Problem List: (1) Electrolyte imbalance (2) Diabetes (3) 2019 novel coronavirus disease (COVID-19) (4) Respiratory failure Assessment 1. COVID-19 pneumonia. 2. Diabetes and hyperglycemia 3. Hypertension. 4. Hypoxic respiratory failure 5. Morbid obesity with BMI of 65.5 6. Nasal bleeding 7. Lactic acidosis 8. Hyperkalemia Plan December 08: No chemistry panel today. Trach to vent. PEG. Stable from renal standpoint of view. Continue per consultants on discharge planning. December 07: No chemistry panel done today. Patient is stable from renal standpoint of view. December 06: Reviewed. Renal parameters stable. Continue per consultants. December 05: Renal parameters stable. Will check labs tomorrow. Continue per consultants. December 04: Stable renal parameters. Continue per consultants. December 03: Renal parameters stable. Continue per consultants. December 02: Remains stable from renal standpoint of view. Electrolyte abnormalities addressed and corrected. December 01: Remains stable from renal standpoint of view. November 30: Lab reviewed. Renal parameters stable. Continue per consultants. November 29: Lab reviewed. Renal parameters stable. Continue per consultants. November 28: Lab reviewed. Phosphorus supplement given. Discussed with RN. Continue to monitor renal parameters. November 27: Lab reviewed. Serum sodium improved. Will start low-dose Zaroxolyn. Change IV Pepcid to GT route. Remains full code. Monitor renal parameters and electrolytes. November 26: Lab reviewed. Serum sodium elevated. 500 cc D5W bolus given. Potassium supplement given. Patient remains full code. Continue per consultants. November 25: Lab reviewed. Patient has trach connected to vent. Patient also has PEG. Continue per consultants. Medication list reviewed. November 24: Lab reviewed. Potassium IV given. Has tracheostomy, PEG. Has PEG. Continue per consultants. November 23: Labs reviewed. Creatinine higher to 1.4. Due for trach today. Suggest to stop IV Lasix. November 22: Renal parameters stable. Medication list reviewed. Continue same management per consultants. November 21: Renal parameters stable. On IV Lasix. Edematous. Will order few doses of albumin 25%. Continue per consultants. November 20: Repeat serum potassium again normal. Renal parameters normal. Continue per consultants. November 19: Repeat serum potassium normal. Renal parameters within normal limit. Continue per consultants. Grace 30: Levemir stopped since IV fluid and dexamethasone are discontinued and patient blood sugar went down. Renal parameters are stable. Continues to be on ventilator. Previously: Renal parameters stable Weaning is being attempted patient's urine output is low. We will give a trial of albumin and Lasix, As needed Discussed with RN Stop IV to D5W 75 cc an hour Levemir 20 units subcu every 12 hours Kayexalate for high potassium as needed Monitor electrolytes and renal parameters Tight blood sugar control, long-acting insulin as needed Keep the blood pressure in check Per orders Subjective ROS Limited/Unobtainable: Yes Objective Objective Last 24 Hour Vital Signs Date Time Temp Pulse Resp B/P (MAP) Pulse Ox O2 Delivery O2 Flow Rate FiO2 12/09/19 12:33 92 18 12/09/19 10:34 94 18 12/09/19 09:06 92 18 12/09/19 09:05 100 12/09/19 08:51 91 146/76 12/09/19 08:00 98.8 91 23 146/76 (99) 98 12/09/19 08:00 Mechanical Ventilator Mechanical Ventilator 12/09/19 08:00 35 12/09/19 07:56 104 12/09/19 07:28 100 Trach Collar 8.0 35 12/09/19 07:25 94 12/09/19 05:19 93 21 35 12/09/19 04:00 99.0 97 18 138/69 (92) 100 12/09/19 04:00 Mechanical Ventilator Mechanical Ventilator 12/09/19 04:00 40 12/09/19 03:35 69 12/09/19 03:05 88 16 35 12/09/19 00:49 88 18 35 12/09/19 00:00 40 12/09/19 00:00 Mechanical Ventilator Mechanical Ventilator 12/09/19 00:00 98.3 84 18 135/86 (102) 100 12/08/19 23:33 80 12/08/19 23:09 85 23 35 12/08/19 20:56 80 15 35 12/08/19 20:42 84 144/94 12/08/19 20:00 40 12/08/19 20:00 98.8 84 28 144/94 (111) 100 12/08/19 20:00 Mechanical Ventilator Mechanical Ventilator 12/08/19 19:24 94 8/18/20 18:40 100 Mechanical Ventilator 35 12/08/19 18:40 95 21 35 12/08/19 16:55 99 12/08/19 16:00 93 12/08/19 16:00 98.8 71 28 151/100 (117) 100 12/08/19 16:00 35 12/08/19 16:00 Mechanical Ventilator Mechanical Ventilator 12/08/19 14:56 92 Intake and Output 12/08/19 12/09/19 19:00 07:00 Intake Total 640 ml 630 ml Output Total 500 ml 500 ml Balance 140 ml 130 ml Free Water 90 ml 30 ml Tube Feeding 550 ml 600 ml Output Urine Total 300 ml 500 ml Stool Total 200 ml Laboratory Tests 12/08/19 17:52: POC Whole Blood Glucose [Pending] 12/09/19 00:08: POC Whole Blood Glucose 82 12/09/19 05:28: POC Whole Blood Glucose 104 12/09/19 08:54: POC Whole Blood Glucose 113H 12/09/19 11:13: POC Whole Blood Glucose [Pending] Height (Feet): 5 Height (Inches): 1.00 Weight (Pounds): 275 General Appearance: no apparent distress EENT: other - Trach connected to vent Cardiovascular: tachycardia Respiratory/Chest: decreased breath sounds Abdomen: distended Genitourinary/Rectal: other - PEG Papa Young MD Dec 09, 2019 13:40
[2019-12-09 14:00] LABS: BASOPHILS % (AUTO) 1.3 % (0.0-2.0); HEMATOCRIT 33.7 % (37.0-47.0); HEMOGLOBIN 9.9 G/DL (12.0-16.0); LYMPHOCYTES % (AUTO) 18.5 % (20.0-45.0); MEAN CORPUSCULAR VOLUME 90 FL (80-99); MONOCYTES % (AUTO) 3.7 % (1.0-10.0); NEUTROPHILS % (AUTO) 75.6 % (45.0-75.0); PLATELET COUNT 339 K/UL (150-450); RED BLOOD COUNT 3.75 M/UL (4.20-5.40); RED CELL DISTRIBUTION WIDTH 18.4 % (11.6-14.8); WHITE BLOOD COUNT 8.5 K/UL (4.8-10.8)
[2019-12-09 14:08] LABS: ANION GAP 4 mmol/L (5-15); BLOOD UREA NITROGEN 19 mg/dL (7-18); CALCIUM 8.2 MG/DL (8.5-10.1); CARBON DIOXIDE 35 MMOL/L (21-32); CHLORIDE 102 MMOL/L (98-107); CREATININE 0.6 MG/DL (0.55-1.30); SODIUM 141 MMOL/L (136-145)
--- NOTE | 2019-12-09 15:58 | Diagnostic Imaging Report ---
Indication: Bilateral leg pain Technique: Grayscale and duplex images of the bilateral lower extremity veins Comparison: None Findings: Exam is technically limited. Due to patient body habitus, the upstream femoral veins and bilateral calf veins were not well visualized. Bilaterally, grayscale and duplex images demonstrate no evidence of intraluminal thrombus. Normal phasic Doppler waveforms, demonstrating normal augmentation response and no evidence of valvular insufficiency. Greater saphenous vein(s) and tibial veins are patent. Normal compressibility. Impression: Somewhat limited exam. Grossly negative for evidence of lower extremity deep venous thrombosis bilaterally
[2019-12-09 16:00] VITALS: BP 149/81
[2019-12-09 20:00] VITALS: BP 160/74
--- NOTE | 2019-12-09 22:13 | General Progress Note ---
Assessment/Plan Problem List: (1) Weak ICD Codes: R53.1 - Weakness SNOMED: 00532811 (2) UTI (urinary tract infection) ICD Codes: N39.0 - Urinary tract infection, site not specified SNOMED: 62535043 (3) Respiratory failure ICD Codes: J96.90 - Respiratory failure, unspecified, unspecified whether with hypoxia or hypercapnia SNOMED: 656455371 (4) Electrolyte imbalance ICD Codes: E87.8 - Other disorders of electrolyte and fluid balance, not elsewhere classified SNOMED: 529828532 (5) Fluid overload ICD Codes: E87.70 - Fluid overload, unspecified SNOMED: 89285602 (6) Diabetes ICD Codes: E11.9 - Type 2 diabetes mellitus without complications SNOMED: 48670849 (7) CHF (congestive heart failure) ICD Codes: I50.9 - Heart failure, unspecified SNOMED: 53023837 (8) Hypoxia ICD Codes: R09.02 - Hypoxemia SNOMED: 540274465 (9) Afib ICD Codes: I48.91 - Unspecified atrial fibrillation SNOMED: 31203679 (10) Multifocal pneumonia ICD Codes: J18.9 - Pneumonia, unspecified organism SNOMED: 110051925 Status: stable, progressing Assessment/Plan: niddm a fib prn supportive rx afebrile no sob chf Subjective ROS Limited/Unobtainable: Yes Allergies: Coded Allergies: No Known Allergies (Unverified , 11/06/19) Objective Last 24 Hour Vital Signs Date Time Temp Pulse Resp B/P (MAP) Pulse Ox O2 Delivery O2 Flow Rate FiO2 12/09/19 20:47 93 19 35 12/09/19 20:11 105 160/74 12/09/19 20:00 107 12/09/19 20:00 40 12/09/19 20:00 Mechanical Ventilator Mechanical Ventilator 12/09/19 20:00 98.8 105 28 160/74 (102) 98 12/09/19 19:19 103 26 35 12/09/19 19:17 100 Mechanical Ventilator 12/09/19 17:58 96 20 12/09/19 16:58 101 18 12/09/19 16:00 99.0 116 28 149/81 (103) 98 12/09/19 16:00 Mechanical Ventilator Mechanical Ventilator 12/09/19 16:00 35 12/09/19 16:00 114 12/09/19 14:47 98 18 12/09/19 12:33 92 18 12/09/19 12:00 Mechanical Ventilator Mechanical Ventilator 12/09/19 12:00 35 12/09/19 12:00 99.0 104 25 139/85 (103) 98 12/09/19 11:41 99 12/09/19 10:34 94 18 12/09/19 09:06 92 18 12/09/19 09:05 100 12/09/19 08:51 91 146/76 12/09/19 08:00 98.8 91 23 146/76 (99) 98 12/09/19 08:00 Mechanical Ventilator Mechanical Ventilator 12/09/19 08:00 35 12/09/19 07:56 104 12/09/19 07:28 100 Trach Collar 8.0 35 12/09/19 07:25 94 12/09/19 05:19 93 21 35 12/09/19 04:00 99.0 97 18 138/69 (92) 100 12/09/19 04:00 Mechanical Ventilator Mechanical Ventilator 12/09/19 04:00 40 12/09/19 03:35 69 12/09/19 03:05 88 16 35 12/09/19 00:49 88 18 35 12/09/19 00:00 40 12/09/19 00:00 Mechanical Ventilator Mechanical Ventilator 12/09/19 00:00 98.3 84 18 135/86 (102) 100 12/08/19 23:33 80 12/08/19 23:09 85 23 35 Intake and Output 12/08/19 12/09/19 19:00 07:00 Intake Total 640 ml 630 ml Output Total 500 ml 500 ml Balance 140 ml 130 ml Free Water 90 ml 30 ml Tube Feeding 550 ml 600 ml Output Urine Total 300 ml 500 ml Stool Total 200 ml Laboratory Tests 12/09/19 00:08: POC Whole Blood Glucose 82 12/09/19 05:28: POC Whole Blood Glucose 104 12/09/19 08:54: POC Whole Blood Glucose 113H 12/09/19 11:13: POC Whole Blood Glucose [Pending] 12/09/19 13:55: White Blood Count 8.5, Red Blood Count 3.75L, Hemoglobin 9.9L, Hematocrit 33.7L , Mean Corpuscular Volume 90, Mean Corpuscular Hemoglobin 26.5L, Mean Corpuscular Hemoglobin Concent 29.5L, Red Cell Distribution Width 18.4H, Platelet Count 339, Mean Platelet Volume 6.0L, Neutrophils (%) (Auto) 75.6H, Lymphocytes (%) (Auto) 18.5L, Monocytes (%) (Auto) 3.7, Eosinophils (%) (Auto) 1.0, Basophils (%) (Auto) 1.3, Sodium Level 141, Potassium Level 4.0, Chloride Level 102, Carbon Dioxide Level 35H, Anion Gap 4L, Blood Urea Nitrogen 19H, Creatinine 0.6, Estimat Glomerular Filtration Rate > 60, Glucose Level 146H, Calcium Level 8.2L 12/09/19 17:29: POC Whole Blood Glucose 147H Height (Feet): 5 Height (Inches): 1.00 Weight (Pounds): 275 Darius Real MD Dec 09, 2019 22:13
[2019-12-10] VITALS: BP 132/99
[2019-12-10 04:00] VITALS: BP 131/72
[2019-12-10] MEDS: NovoLOG Insulin Flexpen SUBQ SCH ×2 (05:21→12:00)
[2019-12-10 05:23] LABS: BASOPHILS % (AUTO) 1.2 % (0.0-2.0); EOSINOPHILS % (AUTO) 0.7 % (0.0-3.0); HEMATOCRIT 31.2 % (37.0-47.0); HEMOGLOBIN 9.3 G/DL (12.0-16.0); LYMPHOCYTES % (AUTO) 14.1 % (20.0-45.0); MEAN CORPUSCULAR VOLUME 88 FL (80-99); NEUTROPHILS % (AUTO) 74.9 % (45.0-75.0); PLATELET COUNT 318 K/UL (150-450); RED BLOOD COUNT 3.55 M/UL (4.20-5.40); RED CELL DISTRIBUTION WIDTH 18.1 % (11.6-14.8); WHITE BLOOD COUNT 7.1 K/UL (4.8-10.8)
[2019-12-10 05:27] LABS: ANION GAP 1 mmol/L (5-15); BLOOD UREA NITROGEN 18 mg/dL (7-18); CALCIUM 8.5 MG/DL (8.5-10.1); CARBON DIOXIDE 35 MMOL/L (21-32); CHLORIDE 104 MMOL/L (98-107); CREATININE 0.6 MG/DL (0.55-1.30); POTASSIUM 3.8 MMOL/L (3.5-5.1); SODIUM 140 MMOL/L (136-145)
--- NOTE | 2019-12-10 06:31 | General Progress Note ---
Assessment/Plan Problem List: (1) Hypoxia ICD Codes: R09.02 - Hypoxemia SNOMED: 353828224 (2) CHF (congestive heart failure) ICD Codes: I50.9 - Heart failure, unspecified SNOMED: 54744179 (3) Diabetes ICD Codes: E11.9 - Type 2 diabetes mellitus without complications SNOMED: 37235819 (4) Fluid overload ICD Codes: E87.70 - Fluid overload, unspecified SNOMED: 69791938 (5) 2019 novel coronavirus disease (COVID-19) ICD Codes: U07.1 - COVID-19 SNOMED: 851802362 Status: stable, progressing Assessment/Plan: continue Levemir 8 units bid continue Novolog sliding scale every 6 hours hypoglycemia protocol in order repeat thyroid function improved - no need for thyroid medication Subjective ROS Limited/Unobtainable: Yes Allergies: Coded Allergies: No Known Allergies (Unverified , 11/06/19) Subjective events noted glucose values are stable without hypoglycemia trach - vent - TF Item Value Date Time Bedside Blood Glucose 130 mg/dl H 12/10/19 0600 Bedside Blood Glucose 153 mg/dl H 12/10/19 0000 Bedside Blood Glucose 147 mg/dl H 12/09/19 1800 Bedside Blood Glucose 124 mg/dl H 12/09/19 1200 Bedside Blood Glucose 113 mg/dl 12/09/19 0854 Bedside Blood Glucose 104 mg/dl 12/09/19 0600 Bedside Blood Glucose 82 mg/dl 12/09/19 0000 Objective Last 24 Hour Vital Signs Date Time Temp Pulse Resp B/P (MAP) Pulse Ox O2 Delivery O2 Flow Rate FiO2 12/10/19 04:46 100 19 35 12/10/19 04:00 98.8 91 28 131/72 (91) 98 12/10/19 04:00 80 12/10/19 04:00 40 12/10/19 04:00 Mechanical Ventilator Mechanical Ventilator 12/10/19 02:56 85 20 35 12/10/19 00:43 72 18 35 12/10/19 00:00 83 12/10/19 00:00 Mechanical Ventilator Mechanical Ventilator 12/10/19 00:00 98.3 89 28 132/99 (110) 98 12/09/19 22:30 94 22 35 12/09/19 20:47 93 19 35 12/09/19 20:11 105 160/74 12/09/19 20:00 107 12/09/19 20:00 40 12/09/19 20:00 Mechanical Ventilator Mechanical Ventilator 12/09/19 20:00 98.8 105 28 160/74 (102) 98 12/09/19 19:19 103 26 35 12/09/19 19:17 100 Mechanical Ventilator 12/09/19 17:58 96 20 12/09/19 16:58 101 18 12/09/19 16:00 99.0 116 28 149/81 (103) 98 12/09/19 16:00 Mechanical Ventilator Mechanical Ventilator 12/09/19 16:00 35 12/09/19 16:00 114 12/09/19 14:47 98 18 12/09/19 12:33 92 18 12/09/19 12:00 Mechanical Ventilator Mechanical Ventilator 12/09/19 12:00 35 12/09/19 12:00 99.0 104 25 139/85 (103) 98 12/09/19 11:41 99 12/09/19 10:34 94 18 12/09/19 09:06 92 18 12/09/19 09:05 100 12/09/19 08:51 91 146/76 12/09/19 08:00 98.8 91 23 146/76 (99) 98 12/09/19 08:00 Mechanical Ventilator Mechanical Ventilator 12/09/19 08:00 35 12/09/19 07:56 104 12/09/19 07:28 100 Trach Collar 8.0 35 12/09/19 07:25 94 Intake and Output 12/09/19 12/10/19 19:00 07:00 Intake Total 640 ml 430 ml Output Total 400 ml 400 ml Balance 240 ml 30 ml Free Water 90 ml 30 ml Tube Feeding 550 ml 400 ml Output Urine Total 400 ml 400 ml # Bowel Movements 5 1 Laboratory Tests 12/09/19 08:54: POC Whole Blood Glucose 113H 12/09/19 11:13: POC Whole Blood Glucose [Pending] 12/09/19 13:55: White Blood Count 8.5, Red Blood Count 3.75L, Hemoglobin 9.9L, Hematocrit 33.7L , Mean Corpuscular Volume 90, Mean Corpuscular Hemoglobin 26.5L, Mean Corpuscular Hemoglobin Concent 29.5L, Red Cell Distribution Width 18.4H, Platelet Count 339, Mean Platelet Volume 6.0L, Neutrophils (%) (Auto) 75.6H, Lymphocytes (%) (Auto) 18.5L, Monocytes (%) (Auto) 3.7, Eosinophils (%) (Auto) 1.0, Basophils (%) (Auto) 1.3, Sodium Level 141, Potassium Level 4.0, Chloride Level 102, Carbon Dioxide Level 35H, Anion Gap 4L, Blood Urea Nitrogen 19H, Creatinine 0.6, Estimat Glomerular Filtration Rate > 60, Glucose Level 146H, Calcium Level 8.2L 12/09/19 17:29: POC Whole Blood Glucose 147H 12/09/19 23:23: POC Whole Blood Glucose 153H 12/10/19 03:50: White Blood Count 7.1, Red Blood Count 3.55L, Hemoglobin 9.3L, Hematocrit 31.2L , Mean Corpuscular Volume 88, Mean Corpuscular Hemoglobin 26.2L, Mean Corpuscular Hemoglobin Concent 29.8L, Red Cell Distribution Width 18.1H, Platelet Count 318, Mean Platelet Volume 5.9L, Neutrophils (%) (Auto) 74.9, Lymphocytes (%) (Auto) 14.1L, Monocytes (%) (Auto) 9.0, Eosinophils (%) (Auto) 0.7, Basophils (%) (Auto) 1.2, Sodium Level 140, Potassium Level 3.8, Chloride Level 104, Carbon Dioxide Level 35H, Anion Gap 1L, Blood Urea Nitrogen 18, Creatinine 0.6, Estimat Glomerular Filtration Rate > 60, Glucose Level 136H, Calcium Level 8.5 12/10/19 05:13: POC Whole Blood Glucose 130H Height (Feet): 5 Height (Inches): 1.00 Weight (Pounds): 300 General Appearance: other - on vent Neck: other - trach Respiratory/Chest: decreased breath sounds Abdomen: normal bowel sounds Objective Current Medications Medications (Trade) Dose Ordered Sig/Robyn Route PRN Reason Start Time Stop Time Status Last Admin Dose Admin Acetaminophen (Tylenol) 650 mg Q4H PRN GT For Pain 11/30/19 17:45 12/30/19 17:44 11/30/19 18:24 Acetaminophen (Tylenol) 650 mg Q6H PRN GT Temp >100.5 11/29/19 15:00 12/12/19 14:59 12/07/19 13:32 Amiodarone HCl (Cordarone) 200 mg DAILY GT 12/04/19 09:00 02/18/20 09:29 12/09/19 08:51 Clonidine HCl (Catapres Tab) 0.1 mg Q4H PRN GT For High Blood Pressure 11/29/19 14:30 02/09/20 14:29 Dextrose (Dextrose 50%) 25 ml Q30M PRN IV Hypoglycemia 11/29/19 14:15 02/21/20 06:44 Dextrose (Dextrose 50%) 50 ml Q30M PRN IV Hypoglycemia 11/29/19 14:15 02/21/20 06:44 Famotidine (Pepcid) 20 mg BID GT 11/29/19 18:00 02/26/20 17:59 12/09/19 14:07 Folic Acid (Folate) 2 mg DAILY GT 11/30/19 09:00 12/15/19 08:59 12/09/19 08:51 Insulin Aspart (NovoLOG) EVERY 6 HOURS SUBQ 12/07/19 18:00 03/06/20 17:59 12/09/19 23:25 Insulin Detemir (Levemir) 8 units BID SUBQ 12/08/19 09:00 02/21/20 08:59 12/09/19 17:31 Lorazepam (Ativan 2mg/ml 1ml) 2 mg Q3H PRN IV For Anxiety 12/09/19 09:45 12/16/19 09:44 Metolazone (Zaroxolyn) 2.5 mg DAILY GT 11/30/19 09:00 12/28/19 09:29 12/09/19 08:51 Metoprolol Tartrate (Lopressor) 25 mg Q12HR GT 11/29/19 21:00 02/18/20 09:29 12/09/19 20:11 Vancomycin HCl (Firvanq) 125 mg FOUR TIMES A DAY GT 12/01/19 13:00 12/10/19 23:59 12/09/19 20:10 Alphonse Ojeda MD Dec 10, 2019 06:31
--- NOTE | 2019-12-10 06:52 | Hematology/Onc Progress Note ---
Assessment/Plan Assessment/Plan # Anemia of chronic disease due to underlying chronic medical issues, multifactorial v Gi bleed in this case likely related covid19+++++++++ --> Anemia workup has been ordered, rule out gi bleed --> No evidence of hemolysis is noted, peripheral smear has been reviewed. --> Hgb goal >7. Transfuse prn. --> Epogen or iron at this time is not particularly indicated --> Medications have been reviewed --> low threshold for gi evaluation in case has occult + --> hgb 10-->9.8-->9.2-->9.7-->10.7->10->11->10.2->10.6->9.4->10.8->9.8-->10->10 -->9.2->9->9.3 # Leukocytosis/elevated white blood cell count, unspecified likely related to covid19 --> have reviewed peripheral smear and bandemia/neutrophilia noted --> continue antibiotics if they have been started by ID team zosyn --> on remdesivir, dexamathasone --> monitor for resolution --> wbc 12->11-->11-->13->16-->21-->17-->14-->14->13-->11-->7 # COVID 19 pneumonia --> on vent --> respiratory failure --> s/p vent reintubation 11/08 --> 11/23 trach was done # Diabetes mellitus --> iss and bs goal <140 # Dysphagia --> peg 11/24 # Hypertension --> sbp goal <150 # Dvt ppx scds Appreciate consultation and dw RN Subjective Constitutional: Denies: no symptoms, chills, fever, malaise, weakness, other HEENT: Denies: no symptoms, eye pain, blurred vision, tearing, double vision, ear pain, ear discharge, nose pain, nose congestion, throat pain, throat swelling, mouth pain, mouth swelling, other Cardiovascular: Denies: no symptoms, chest pain, edema, irregular heart rate, lightheadedness, palpitations, syncope, other Respiratory: Denies: no symptoms, cough, shortness of breath, SOB with excertion, SOB at rest, sputum, wheezing, other Genitourinary: Denies: no symptoms, burning, discharge, frequency, flank pain, hematuria, incontinence, pain, urgency, other Neurologic/Psychiatric: Denies: no symptoms, anxiety, depressed, emotional problems, headache, numbness, paresthesia, pre-existing deficit, seizure, tingling, tremors, weakness, other Endocrine: Denies: no symptoms, excessive sweating, flushing, intolerance to cold, intolerance to heat, increased hunger, increased thirst, increased urine, unexplained weight gain, unexplained weight loss, other Hematologic/Lymphatic: Denies: no symptoms, anemia, easy bleeding, easy bruising, adenopathy, other Allergies: Coded Allergies: No Known Allergies (Unverified , 11/06/19) Subjective 11/09 weaning prn, meds reviewed, labs noted, hgb 9.2 11/10 on vent, no bleeding, hgb remains low, jimena Rn Jose R in am 11/11 on vent, fluids, ogf tube as well, labs pending in am 11/12 remains altered, no bleeding, labs reviewed, cbc noted 11/13 attempted weaning, but did not do well, no bleeding, hgb 10 11/14 intubated, weaning, on vent, with og, labs noted, abx 11/15 labs noted, no bleedign, weaning protocol, no night sweats, elev wbc, with fevers 11/16 no bleeding, jimena Broussard rn in the am, on vent, weaning but failed 11/17 meds reviewed, no night sweats, jimena rn, no bleeding 11/18 extubated, on nc at this time, no bleeding, meds reviewed 11/19 labs noted, no bleeding, on vent again, weaning 11/21 labs reviewed, hgb 9.4, no hemolysis, very difficult to obtain repeat lab draw in am 11/22 unable to wean vent, labs noted, plan for trach tomorrow, on fentanyl, still edematous 11/23 is for trach today and peg tomorrow, stil edematous, on lasix gtt 11/24 meds noted, no bleeding, on vent, for peg this am, trach functional 11/25 labs reviewed, no bleeding, meds noted, obtunded, hr better 11/26 picc line continues to leak, no bleeding, labs noted, low grade fever, id aware 12/03 remains altered, labs noted, no bleeding, hgb remains low, tmax 99.7f 12/04 no bleeding, left foot swollen, for duplex lower ext r/o dvt 12/05 is to have duplex for tomorrow, otherwise no changes, for cbc this am, jimena Dsouza Rn 12/06 asleep is on vent, with rectal tube, and gtube, labs ordered 12/07 with rectal tube, gtube phillips, labs noted, no bleeding, hgb 10.8 12/08 labs are noted, no bleeding, on glucerna, ivfs, labs noted, jimena walker 12/09 labs noted, no bleeding, cbc reviewed, hgb 9.3, no hemolysis Objective Objective Current Medications Medications (Trade) Dose Ordered Sig/Robyn Route PRN Reason Start Time Stop Time Status Last Admin Dose Admin Acetaminophen (Tylenol) 650 mg Q4H PRN GT For Pain 11/30/19 17:45 12/30/19 17:44 11/30/19 18:24 Acetaminophen (Tylenol) 650 mg Q6H PRN GT Temp >100.5 11/29/19 15:00 12/12/19 14:59 12/07/19 13:32 Amiodarone HCl (Cordarone) 200 mg DAILY GT 12/04/19 09:00 02/18/20 09:29 12/09/19 08:51 Clonidine HCl (Catapres Tab) 0.1 mg Q4H PRN GT For High Blood Pressure 11/29/19 14:30 02/09/20 14:29 Dextrose (Dextrose 50%) 25 ml Q30M PRN IV Hypoglycemia 11/29/19 14:15 02/21/20 06:44 Dextrose (Dextrose 50%) 50 ml Q30M PRN IV Hypoglycemia 11/29/19 14:15 02/21/20 06:44 Famotidine (Pepcid) 20 mg BID GT 11/29/19 18:00 02/26/20 17:59 12/09/19 14:07 Folic Acid (Folate) 2 mg DAILY GT 11/30/19 09:00 12/15/19 08:59 12/09/19 08:51 Insulin Aspart (NovoLOG) EVERY 6 HOURS SUBQ 12/07/19 18:00 03/06/20 17:59 12/09/19 23:25 Insulin Detemir (Levemir) 8 units BID SUBQ 12/08/19 09:00 02/21/20 08:59 12/09/19 17:31 Lorazepam (Ativan 2mg/ml 1ml) 2 mg Q3H PRN IV For Anxiety 12/09/19 09:45 12/16/19 09:44 Metolazone (Zaroxolyn) 2.5 mg DAILY GT 11/30/19 09:00 12/28/19 09:29 12/09/19 08:51 Metoprolol Tartrate (Lopressor) 25 mg Q12HR GT 11/29/19 21:00 02/18/20 09:29 12/09/19 20:11 Vancomycin HCl (Firvanq) 125 mg FOUR TIMES A DAY GT 12/01/19 13:00 12/10/19 23:59 12/09/19 20:10 Last 24 Hour Vital Signs Date Time Temp Pulse Resp B/P (MAP) Pulse Ox O2 Delivery O2 Flow Rate FiO2 12/10/19 04:46 100 19 35 12/10/19 04:00 98.8 91 28 131/72 (91) 98 12/10/19 04:00 80 12/10/19 04:00 40 12/10/19 04:00 Mechanical Ventilator Mechanical Ventilator 12/10/19 02:56 85 20 35 12/10/19 00:43 72 18 35 12/10/19 00:00 83 12/10/19 00:00 Mechanical Ventilator Mechanical Ventilator 12/10/19 00:00 98.3 89 28 132/99 (110) 98 12/09/19 22:30 94 22 35 12/09/19 20:47 93 19 35 12/09/19 20:11 105 160/74 12/09/19 20:00 107 12/09/19 20:00 40 12/09/19 20:00 Mechanical Ventilator Mechanical Ventilator 12/09/19 20:00 98.8 105 28 160/74 (102) 98 12/09/19 19:19 103 26 35 12/09/19 19:17 100 Mechanical Ventilator 12/09/19 17:58 96 20 12/09/19 16:58 101 18 12/09/19 16:00 99.0 116 28 149/81 (103) 98 12/09/19 16:00 Mechanical Ventilator Mechanical Ventilator 12/09/19 16:00 35 12/09/19 16:00 114 12/09/19 14:47 98 18 12/09/19 12:33 92 18 12/09/19 12:00 Mechanical Ventilator Mechanical Ventilator 12/09/19 12:00 35 12/09/19 12:00 99.0 104 25 139/85 (103) 98 12/09/19 11:41 99 12/09/19 10:34 94 18 12/09/19 09:06 92 18 12/09/19 09:05 100 12/09/19 08:51 91 146/76 12/09/19 08:00 98.8 91 23 146/76 (99) 98 12/09/19 08:00 Mechanical Ventilator Mechanical Ventilator 12/09/19 08:00 35 12/09/19 07:56 104 12/09/19 07:28 100 Trach Collar 8.0 35 12/09/19 07:25 94 12/09/19 05:19 93 21 35 12/09/19 04:00 99.0 97 18 138/69 (92) 100 12/09/19 04:00 Mechanical Ventilator Mechanical Ventilator 12/09/19 04:00 40 12/09/19 03:35 69 12/09/19 03:05 88 16 35 12/09/19 00:49 88 18 35 12/09/19 00:00 40 12/09/19 00:00 Mechanical Ventilator Mechanical Ventilator 12/09/19 00:00 98.3 84 18 135/86 (102) 100 12/08/19 23:33 80 18 23:09 85 23 35 12/08/19 20:56 80 15 35 20 20:42 84 144/94 1820 20:00 40 1820 20:00 98.8 84 28 144/94 (111) 100 12/08/19 20:00 Mechanical Ventilator Mechanical Ventilator 12/08/19 19:24 94 12/08/19 18:40 100 Mechanical Ventilator 35 18 18:40 95 21 35 12/08/19 16:55 99 12/08/19 16:00 93 12/08/19 16:00 98.8 71 28 151/100 (117) 100 12/08/19 16:00 35 12/08/19 16:00 Mechanical Ventilator Mechanical Ventilator 12/08/19 14:56 92 12/08/19 12:44 87 12/08/19 12:00 98.0 80 20 141/84 (103) 100 12/08/19 12:00 Mechanical Ventilator Mechanical Ventilator 12/08/19 12:00 35 12/08/19 11:44 79 12/08/19 10:37 71 12/08/19 09:15 90 166/71 12/08/19 09:00 40 12/08/19 08:47 89 12/08/19 08:46 100 12/08/19 08:00 86 12/08/19 08:00 97.5 86 20 150/79 (102) 100 12/08/19 08:00 Mechanical Ventilator Mechanical Ventilator 12/08/19 07:20 80 12/08/19 07:19 100 Trach Collar 8.0 35 Intake and Output 12/09/19 12/10/19 19:00 07:00 Intake Total 640 ml 430 ml Output Total 400 ml 400 ml Balance 240 ml 30 ml Free Water 90 ml 30 ml Tube Feeding 550 ml 400 ml Output Urine Total 400 ml 400 ml # Bowel Movements 5 1 Labs Test 12/07/19 08:35 12/07/19 12:57 12/07/19 17:42 12/08/19 03:15 POC Whole Blood Glucose 109 MG/DL (74-106) 128 MG/DL (74-106) 124 MG/DL (74-106) White Blood Count 7.8 K/UL (4.8-10.8) Red Blood Count 4.07 M/UL (4.20-5.40) Hemoglobin 10.8 G/DL (12.0-16.0) Hematocrit 36.6 % (37.0-47.0) Mean Corpuscular Volume 90 FL (80-99) Mean Corpuscular Hemoglobin 26.4 PG (27.0-31.0) Mean Corpuscular Hemoglobin Concent 29.4 G/DL (32.0-36.0) Red Cell Distribution Width 18.7 % (11.6-14.8) Platelet Count 309 K/UL (150-450) Mean Platelet Volume 5.4 FL (6.5-10.1) Neutrophils (%) (Auto) 75.9 % (45.0-75.0) Lymphocytes (%) (Auto) 15.0 % (20.0-45.0) Monocytes (%) (Auto) 6.5 % (1.0-10.0) Eosinophils (%) (Auto) 1.3 % (0.0-3.0) Basophils (%) (Auto) 1.3 % (0.0-2.0) Test 12/08/19 09:17 12/08/19 12:19 12/08/19 17:52 12/09/19 00:08 POC Whole Blood Glucose 82 MG/DL (74-106) Test 12/09/19 05:28 12/09/19 08:54 12/09/19 11:13 12/09/19 13:55 POC Whole Blood Glucose 104 MG/DL (74-106) 113 MG/DL (74-106) White Blood Count 8.5 K/UL (4.8-10.8) Red Blood Count 3.75 M/UL (4.20-5.40) Hemoglobin 9.9 G/DL (12.0-16.0) Hematocrit 33.7 % (37.0-47.0) Mean Corpuscular Volume 90 FL (80-99) Mean Corpuscular Hemoglobin 26.5 PG (27.0-31.0) Mean Corpuscular Hemoglobin Concent 29.5 G/DL (32.0-36.0) Red Cell Distribution Width 18.4 % (11.6-14.8) Platelet Count 339 K/UL (150-450) Mean Platelet Volume 6.0 FL (6.5-10.1) Neutrophils (%) (Auto) 75.6 % (45.0-75.0) Lymphocytes (%) (Auto) 18.5 % (20.0-45.0) Monocytes (%) (Auto) 3.7 % (1.0-10.0) Eosinophils (%) (Auto) 1.0 % (0.0-3.0) Basophils (%) (Auto) 1.3 % (0.0-2.0) Sodium Level 141 MMOL/L (136-145) Potassium Level 4.0 MMOL/L (3.5-5.1) Chloride Level 102 MMOL/L (98-107) Carbon Dioxide Level 35 MMOL/L (21-32) Anion Gap 4 mmol/L (5-15) Blood Urea Nitrogen 19 mg/dL (7-18) Creatinine 0.6 MG/DL (0.55-1.30) Estimat Glomerular Filtration Rate > 60 mL/min (>60) Glucose Level 146 MG/DL (74-106) Calcium Level 8.2 MG/DL (8.5-10.1) Test 12/09/19 17:29 12/09/19 23:23 12/10/19 03:50 12/10/19 05:13 POC Whole Blood Glucose 147 MG/DL (74-106) 153 MG/DL (74-106) 130 MG/DL (74-106) White Blood Count 7.1 K/UL (4.8-10.8) Red Blood Count 3.55 M/UL (4.20-5.40) Hemoglobin 9.3 G/DL (12.0-16.0) Hematocrit 31.2 % (37.0-47.0) Mean Corpuscular Volume 88 FL (80-99) Mean Corpuscular Hemoglobin 26.2 PG (27.0-31.0) Mean Corpuscular Hemoglobin Concent 29.8 G/DL (32.0-36.0) Red Cell Distribution Width 18.1 % (11.6-14.8) Platelet Count 318 K/UL (150-450) Mean Platelet Volume 5.9 FL (6.5-10.1) Neutrophils (%) (Auto) 74.9 % (45.0-75.0) Lymphocytes (%) (Auto) 14.1 % (20.0-45.0) Monocytes (%) (Auto) 9.0 % (1.0-10.0) Eosinophils (%) (Auto) 0.7 % (0.0-3.0) Basophils (%) (Auto) 1.2 % (0.0-2.0) Sodium Level 140 MMOL/L (136-145) Potassium Level 3.8 MMOL/L (3.5-5.1) Chloride Level 104 MMOL/L (98-107) Carbon Dioxide Level 35 MMOL/L (21-32) Anion Gap 1 mmol/L (5-15) Blood Urea Nitrogen 18 mg/dL (7-18) Creatinine 0.6 MG/DL (0.55-1.30) Estimat Glomerular Filtration Rate > 60 mL/min (>60) Glucose Level 136 MG/DL (74-106) Calcium Level 8.5 MG/DL (8.5-10.1) Height (Feet): 5 Height (Inches): 1.00 Weight (Pounds): 300 Objective Physical Exam: Vitals: reviewed General: NAD HEENT: nc, at Neck: supple Chest: clear breath sounds on vent++trach+ Cardiovascular: RRR, no s3, s4 Abdomen: soft, nontender, nd++peg Extremities: no cce, normal range of motion, left foot swelling+ Neuro: alert and oriented Ismael Fischer MD Dec 10, 2019 06:52
[2019-12-10 08:00] VITALS: BP 138/78
--- NOTE | 2019-12-10 08:56 | Nephrology Progress Note ---
Assessment/Plan Problem List: (1) Electrolyte imbalance (2) Diabetes (3) 2019 novel coronavirus disease (COVID-19) (4) Respiratory failure Assessment 1. COVID-19 pneumonia. 2. Diabetes and hyperglycemia 3. Hypertension. 4. Hypoxic respiratory failure 5. Morbid obesity with BMI of 65.5 6. Nasal bleeding 7. Lactic acidosis 8. Hyperkalemia Plan December 09: Labs reviewed. Renal parameters stable. Continue per consultants. December 08: No chem panel today. Trach to vent. PEG. Stable from renal standpoint of view. Continue per consultants on discharge planning. December 07: No chem panel done today. Patient is stable from renal standpoint of view. December 06: Reviewed. Renal parameters stable. Continue per consultants. December 05: Renal parameters stable. Will check labs tomorrow. Continue per consultants. December 04: Stable renal parameters. Continue per consultants. December 03: Renal parameters stable. Continue per consultants. December 02: Remains stable from renal standpoint of view. Electrolyte abnormalities addressed and corrected. December 01: Remains stable from renal standpoint of view. November 30: Lab reviewed. Renal parameters stable. Continue per consultants. November 29: Lab reviewed. Renal parameters stable. Continue per consultants. November 28: Lab reviewed. Phosphorus supplement given. Discussed with RN. Continue to monitor renal parameters. November 27: Lab reviewed. Serum sodium improved. Will start low-dose Zaroxolyn. Change IV Pepcid to GT route. Remains full code. Monitor renal parameters and electrolytes. November 26: Lab reviewed. Serum sodium elevated. 500 cc D5W bolus given. Potassium supplement given. Patient remains full code. Continue per consultants. November 25: Lab reviewed. Patient has trach connected to vent. Patient also has PEG. Continue per consultants. Medication list reviewed. November 24: Lab reviewed. Potassium IV given. Has tracheostomy, PEG. Has PEG. Continue per consultants. November 23: Labs reviewed. Creatinine higher to 1.4. Due for trach today. Suggest to stop IV Lasix. November 22: Renal parameters stable. Medication list reviewed. Continue same management per consultants. November 21: Renal parameters stable. On IV Lasix. Edematous. Will order few doses of albumin 25%. Continue per consultants. November 20: Repeat serum potassium again normal. Renal parameters normal. Continue per consultants. November 19: Repeat serum potassium normal. Renal parameters within normal limit. Continue per consultants. November 18: Levemir stopped since IV fluid and dexamethasone are discontinued and patient blood sugar went down. Renal parameters are stable. Continues to be on ventilator. Previously: Renal parameters stable Weaning is being attempted patient's urine output is low. We will give a trial of albumin and Lasix, As needed Discussed with RN Stop IV to D5W 75 cc an hour Levemir 20 units subcu every 12 hours Kayexalate for high potassium as needed Monitor electrolytes and renal parameters Tight blood sugar control, long-acting insulin as needed Keep the blood pressure in check Per orders Subjective ROS Limited/Unobtainable: Yes Objective Objective Last 24 Hour Vital Signs Date Time Temp Pulse Resp B/P (MAP) Pulse Ox O2 Delivery O2 Flow Rate FiO2 12/10/19 04:46 100 19 35 12/10/19 04:00 98.8 91 28 131/72 (91) 98 12/10/19 04:00 80 12/10/19 04:00 40 12/10/19 04:00 Mechanical Ventilator Mechanical Ventilator 12/10/19 02:56 85 20 35 12/10/19 00:43 72 18 35 12/10/19 00:00 83 12/10/19 00:00 Mechanical Ventilator Mechanical Ventilator 12/10/19 00:00 98.3 89 28 132/99 (110) 98 12/09/19 22:30 94 22 35 12/09/19 20:47 93 19 35 12/09/19 20:11 105 160/74 12/09/19 20:00 107 12/09/19 20:00 40 12/09/19 20:00 Mechanical Ventilator Mechanical Ventilator 12/09/19 20:00 98.8 105 28 160/74 (102) 98 12/09/19 19:19 103 26 35 12/09/19 19:17 100 Mechanical Ventilator 12/09/19 17:58 96 20 12/09/19 16:58 101 18 12/09/19 16:00 99.0 116 28 149/81 (103) 98 12/09/19 16:00 Mechanical Ventilator Mechanical Ventilator 12/09/19 16:00 35 12/09/19 16:00 114 12/09/19 14:47 98 18 12/09/19 12:33 92 18 12/09/19 12:00 Mechanical Ventilator Mechanical Ventilator 12/09/19 12:00 35 12/09/19 12:00 99.0 104 25 139/85 (103) 98 12/09/19 11:41 99 12/09/19 10:34 94 18 12/09/19 09:06 92 18 12/09/19 09:05 100 Intake and Output 12/09/19 12/10/19 19:00 07:00 Intake Total 640 ml 630 ml Output Total 400 ml 400 ml Balance 240 ml 230 ml Free Water 90 ml 30 ml Tube Feeding 550 ml 600 ml Output Urine Total 400 ml 400 ml # Bowel Movements 5 1 Laboratory Tests 12/09/19 11:13: POC Whole Blood Glucose [Pending] 12/09/19 13:55: White Blood Count 8.5, Red Blood Count 3.75L, Hemoglobin 9.9L, Hematocrit 33.7L , Mean Corpuscular Volume 90, Mean Corpuscular Hemoglobin 26.5L, Mean Corpuscular Hemoglobin Concent 29.5L, Red Cell Distribution Width 18.4H, Platelet Count 339, Mean Platelet Volume 6.0L, Neutrophils (%) (Auto) 75.6H, Lymphocytes (%) (Auto) 18.5L, Monocytes (%) (Auto) 3.7, Eosinophils (%) (Auto) 1.0, Basophils (%) (Auto) 1.3, Sodium Level 141, Potassium Level 4.0, Chloride Level 102, Carbon Dioxide Level 35H, Anion Gap 4L, Blood Urea Nitrogen 19H, Creatinine 0.6, Estimat Glomerular Filtration Rate > 60, Glucose Level 146H, Calcium Level 8.2L 12/09/19 17:29: POC Whole Blood Glucose 147H 12/09/19 23:23: POC Whole Blood Glucose 153H 12/10/19 03:50: White Blood Count 7.1, Red Blood Count 3.55L, Hemoglobin 9.3L, Hematocrit 31.2L , Mean Corpuscular Volume 88, Mean Corpuscular Hemoglobin 26.2L, Mean Corpuscular Hemoglobin Concent 29.8L, Red Cell Distribution Width 18.1H, Platelet Count 318, Mean Platelet Volume 5.9L, Neutrophils (%) (Auto) 74.9, Lymphocytes (%) (Auto) 14.1L, Monocytes (%) (Auto) 9.0, Eosinophils (%) (Auto) 0.7, Basophils (%) (Auto) 1.2, Sodium Level 140, Potassium Level 3.8, Chloride Level 104, Carbon Dioxide Level 35H, Anion Gap 1L, Blood Urea Nitrogen 18, Creatinine 0.6, Estimat Glomerular Filtration Rate > 60, Glucose Level 136H, Calcium Level 8.5 12/10/19 05:13: POC Whole Blood Glucose 130H Height (Feet): 5 Height (Inches): 1.00 Weight (Pounds): 300 General Appearance: no apparent distress EENT: other - Trach to vent Cardiovascular: normal rate, other - Variable Respiratory/Chest: decreased breath sounds Abdomen: distended, other - PEG in place Papa Young MD Dec 10, 2019 08:56
[2019-12-10] MEDS: Vancomycin oral 125mg/2.5ml GT SCH ×2 (09:13→12:35)
[2019-12-10] MEDS: Amiodarone 200mg tab GT SCH (09:13)
[2019-12-10] MEDS: metOLazone 2.5 MG TAB GT SCH (09:13)
[2019-12-10] MEDS: Levemir Flexpen SUBQ SCH (09:14)
--- NOTE | 2019-12-10 09:55 | Infectious Diseases Prog Note ---
Assessment/Plan Assessment/Plan A: 1. COVID-19 pneumonia. 2. Diabetes mellitus 3. Hypertension. 4. Hypoxic respiratory failure 5. Morbid obesity 6. C. difficile colitis 7. Lactic acidosis 8. Anemia 9. Leukocytosis improving 10. Pneumonia with MSSA, Proteus & Enterobacter treated PLAN: 1. Finished Remdesivir 2. Continue oral Vancomycin until tonight 3. Case was D/W RN Subjective ROS Limited/Unobtainable: Yes Constitutional: Denies: fever Respiratory: Reports: other - off of ventilator Neurologic: Reports: other - on restraint Allergies: Coded Allergies: No Known Allergies (Unverified , 11/06/19) Objective Last 24 Hour Vital Signs Date Time Temp Pulse Resp B/P (MAP) Pulse Ox O2 Delivery O2 Flow Rate FiO2 12/10/19 09:13 82 138/78 12/10/19 08:00 98.5 82 18 138/78 (98) 100 12/10/19 08:00 Mechanical Ventilator Mechanical Ventilator 12/10/19 08:00 35 12/10/19 04:46 100 19 35 12/10/19 04:00 98.8 91 28 131/72 (91) 98 12/10/19 04:00 80 12/10/19 04:00 40 12/10/19 04:00 Mechanical Ventilator Mechanical Ventilator 12/10/19 02:56 85 20 35 12/10/19 00:43 72 18 35 12/10/19 00:00 83 12/10/19 00:00 Mechanical Ventilator Mechanical Ventilator 12/10/19 00:00 98.3 89 28 132/99 (110) 98 12/09/19 22:30 94 22 35 12/09/19 20:47 93 19 35 12/09/19 20:11 105 160/74 12/09/19 20:00 107 12/09/19 20:00 40 12/09/19 20:00 Mechanical Ventilator Mechanical Ventilator 12/09/19 20:00 98.8 105 28 160/74 (102) 98 12/09/19 19:19 103 26 35 12/09/19 19:17 100 Mechanical Ventilator 12/09/19 17:58 96 20 12/09/19 16:58 101 18 12/09/19 16:00 99.0 116 28 149/81 (103) 98 12/09/19 16:00 Mechanical Ventilator Mechanical Ventilator 12/09/19 16:00 35 12/09/19 16:00 114 12/09/19 14:47 98 18 12/09/19 12:33 92 18 12/09/19 12:00 Mechanical Ventilator Mechanical Ventilator 12/09/19 12:00 35 12/09/19 12:00 99.0 104 25 139/85 (103) 98 12/09/19 11:41 99 12/09/19 10:34 94 18 Height (Feet): 5 Height (Inches): 1.00 Weight (Pounds): 300 General Appearance: no acute distress HEENT: mucous membranes moist, status post trach Respiratory/Chest: lungs clear, other - oxygen by collar Cardiovascular: normal rate Abdomen: soft, non tender, other - GT feeding Extremities: other - legs edema Neurologic/Psychiatric: alert, responsive Microbiology Date/Time Source Procedure Growth Status 12/07/19 17:05 Stool Clostridium difficile Toxin Assay - Final Complete Laboratory Tests Test 12/09/19 11:13 12/09/19 13:55 12/09/19 17:29 12/09/19 23:23 POC Whole Blood Glucose Pending 147 MG/DL (74-106) H 153 MG/DL (74-106) H White Blood Count 8.5 K/UL (4.8-10.8) Red Blood Count 3.75 M/UL (4.20-5.40) L Hemoglobin 9.9 G/DL (12.0-16.0) L Hematocrit 33.7 % (37.0-47.0) L Mean Corpuscular Volume 90 FL (80-99) Mean Corpuscular Hemoglobin 26.5 PG (27.0-31.0) L Mean Corpuscular Hemoglobin Concent 29.5 G/DL (32.0-36.0) L Red Cell Distribution Width 18.4 % (11.6-14.8) H Platelet Count 339 K/UL (150-450) Mean Platelet Volume 6.0 FL (6.5-10.1) L Neutrophils (%) (Auto) 75.6 % (45.0-75.0) H Lymphocytes (%) (Auto) 18.5 % (20.0-45.0) L Monocytes (%) (Auto) 3.7 % (1.0-10.0) Eosinophils (%) (Auto) 1.0 % (0.0-3.0) Basophils (%) (Auto) 1.3 % (0.0-2.0) Sodium Level 141 MMOL/L (136-145) Potassium Level 4.0 MMOL/L (3.5-5.1) Chloride Level 102 MMOL/L (98-107) Carbon Dioxide Level 35 MMOL/L (21-32) H Anion Gap 4 mmol/L (5-15) L Blood Urea Nitrogen 19 mg/dL (7-18) H Creatinine 0.6 MG/DL (0.55-1.30) Estimat Glomerular Filtration Rate > 60 mL/min (>60) Glucose Level 146 MG/DL (74-106) H Calcium Level 8.2 MG/DL (8.5-10.1) L Test 12/10/19 03:50 12/10/19 05:13 White Blood Count 7.1 K/UL (4.8-10.8) Red Blood Count 3.55 M/UL (4.20-5.40) L Hemoglobin 9.3 G/DL (12.0-16.0) L Hematocrit 31.2 % (37.0-47.0) L Mean Corpuscular Volume 88 FL (80-99) Mean Corpuscular Hemoglobin 26.2 PG (27.0-31.0) L Mean Corpuscular Hemoglobin Concent 29.8 G/DL (32.0-36.0) L Red Cell Distribution Width 18.1 % (11.6-14.8) H Platelet Count 318 K/UL (150-450) Mean Platelet Volume 5.9 FL (6.5-10.1) L Neutrophils (%) (Auto) 74.9 % (45.0-75.0) Lymphocytes (%) (Auto) 14.1 % (20.0-45.0) L Monocytes (%) (Auto) 9.0 % (1.0-10.0) Eosinophils (%) (Auto) 0.7 % (0.0-3.0) Basophils (%) (Auto) 1.2 % (0.0-2.0) Sodium Level 140 MMOL/L (136-145) Potassium Level 3.8 MMOL/L (3.5-5.1) Chloride Level 104 MMOL/L (98-107) Carbon Dioxide Level 35 MMOL/L (21-32) H Anion Gap 1 mmol/L (5-15) L Blood Urea Nitrogen 18 mg/dL (7-18) Creatinine 0.6 MG/DL (0.55-1.30) Estimat Glomerular Filtration Rate > 60 mL/min (>60) Glucose Level 136 MG/DL (74-106) H Calcium Level 8.5 MG/DL (8.5-10.1) POC Whole Blood Glucose 130 MG/DL (74-106) H Current Medications Medications (Trade) Dose Ordered Sig/Robyn Route PRN Reason Start Time Stop Time Status Last Admin Dose Admin Acetaminophen (Tylenol) 650 mg Q4H PRN GT For Pain 11/30/19 17:45 12/30/19 17:44 11/30/19 18:24 Acetaminophen (Tylenol) 650 mg Q6H PRN GT Temp >100.5 11/29/19 15:00 12/12/19 14:59 12/07/19 13:32 Amiodarone HCl (Cordarone) 200 mg DAILY GT 12/04/19 09:00 02/18/20 09:29 12/10/19 09:13 Clonidine HCl (Catapres Tab) 0.1 mg Q4H PRN GT For High Blood Pressure 11/29/19 14:30 02/09/20 14:29 Dextrose (Dextrose 50%) 25 ml Q30M PRN IV Hypoglycemia 11/29/19 14:15 02/21/20 06:44 Dextrose (Dextrose 50%) 50 ml Q30M PRN IV Hypoglycemia 11/29/19 14:15 02/21/20 06:44 Famotidine (Pepcid) 20 mg BID GT 11/29/19 18:00 02/26/20 17:59 12/10/19 09:13 Folic Acid (Folate) 2 mg DAILY GT 11/30/19 09:00 12/15/19 08:59 12/10/19 09:13 Insulin Aspart (NovoLOG) EVERY 6 HOURS SUBQ 12/07/19 18:00 03/06/20 17:59 12/09/19 23:25 Insulin Detemir (Levemir) 8 units BID SUBQ 12/08/19 09:00 02/21/20 08:59 12/10/19 09:14 Lorazepam (Ativan 2mg/ml 1ml) 2 mg Q3H PRN IV For Anxiety 12/09/19 09:45 12/16/19 09:44 Metolazone (Zaroxolyn) 2.5 mg DAILY GT 11/30/19 09:00 12/28/19 09:29 12/10/19 09:13 Metoprolol Tartrate (Lopressor) 25 mg Q12HR GT 11/29/19 21:00 02/18/20 09:29 12/10/19 09:13 Vancomycin HCl (Firvanq) 125 mg FOUR TIMES A DAY GT 12/01/19 13:00 12/10/19 23:59 12/10/19 09:13 Jose Hernandez MD Dec 10, 2019 09:55
--- NOTE | 2019-12-10 11:04 | General Progress Note ---
Assessment/Plan Problem List: (1) Respiratory failure ICD Codes: J96.90 - Respiratory failure, unspecified, unspecified whether with hypoxia or hypercapnia SNOMED: 486279439 (2) 2019 novel coronavirus disease (COVID-19) ICD Codes: U07.1 - COVID-19 SNOMED: 890427587 (3) Multifocal pneumonia ICD Codes: J18.9 - Pneumonia, unspecified organism SNOMED: 557866747 (4) Afib ICD Codes: I48.91 - Unspecified atrial fibrillation SNOMED: 00799760 (5) CHF (congestive heart failure) ICD Codes: I50.9 - Heart failure, unspecified SNOMED: 23632184 (6) Diabetes ICD Codes: E11.9 - Type 2 diabetes mellitus without complications SNOMED: 48528992 (7) Fluid overload ICD Codes: E87.70 - Fluid overload, unspecified SNOMED: 00290348 (8) Epistaxis ICD Codes: R04.0 - Epistaxis SNOMED: 690274977 Status: stable, progressing Assessment/Plan: fu H&H prn blood transfusion slow drop in H&H without obvious bleeding repeat stool ob>>neg GTF patient has rectal tube will fu Subjective ROS Limited/Unobtainable: No Allergies: Coded Allergies: No Known Allergies (Unverified , 11/06/19) Objective Last 24 Hour Vital Signs Date Time Temp Pulse Resp B/P (MAP) Pulse Ox O2 Delivery O2 Flow Rate FiO2 12/10/19 09:13 82 138/78 12/10/19 08:30 99 12/10/19 08:30 103 12/10/19 08:00 84 12/10/19 08:00 98.5 82 18 138/78 (98) 100 12/10/19 08:00 Mechanical Ventilator Mechanical Ventilator 12/10/19 08:00 35 12/10/19 07:18 87 20 35 12/10/19 07:18 99 Mechanical Ventilator 12/10/19 04:46 100 19 35 12/10/19 04:00 98.8 91 28 131/72 (91) 98 12/10/19 04:00 80 12/10/19 04:00 40 12/10/19 04:00 Mechanical Ventilator Mechanical Ventilator 12/10/19 02:56 85 20 35 12/10/19 00:43 72 18 35 12/10/19 00:00 83 12/10/19 00:00 Mechanical Ventilator Mechanical Ventilator 12/10/19 00:00 98.3 89 28 132/99 (110) 98 12/09/19 22:30 94 22 35 12/09/19 20:47 93 19 35 12/09/19 20:11 105 160/74 12/09/19 20:00 107 12/09/19 20:00 40 12/09/19 20:00 Mechanical Ventilator Mechanical Ventilator 12/09/19 20:00 98.8 105 28 160/74 (102) 98 12/09/19 19:19 103 26 35 12/09/19 19:17 100 Mechanical Ventilator 12/09/19 17:58 96 20 12/09/19 16:58 101 18 12/09/19 16:00 99.0 116 28 149/81 (103) 98 12/09/19 16:00 Mechanical Ventilator Mechanical Ventilator 12/09/19 16:00 35 12/09/19 16:00 114 12/09/19 14:47 98 18 12/09/19 12:33 92 18 12/09/19 12:00 Mechanical Ventilator Mechanical Ventilator 12/09/19 12:00 35 12/09/19 12:00 99.0 104 25 139/85 (103) 98 12/09/19 11:41 99 Intake and Output 12/09/19 12/10/19 19:00 07:00 Intake Total 640 ml 630 ml Output Total 400 ml 400 ml Balance 240 ml 230 ml Free Water 90 ml 30 ml Tube Feeding 550 ml 600 ml Output Urine Total 400 ml 400 ml # Bowel Movements 5 1 Laboratory Tests 12/09/19 11:13: POC Whole Blood Glucose [Pending] 12/09/19 13:55: White Blood Count 8.5, Red Blood Count 3.75L, Hemoglobin 9.9L, Hematocrit 33.7L , Mean Corpuscular Volume 90, Mean Corpuscular Hemoglobin 26.5L, Mean Corpuscular Hemoglobin Concent 29.5L, Red Cell Distribution Width 18.4H, Platelet Count 339, Mean Platelet Volume 6.0L, Neutrophils (%) (Auto) 75.6H, Lymphocytes (%) (Auto) 18.5L, Monocytes (%) (Auto) 3.7, Eosinophils (%) (Auto) 1.0, Basophils (%) (Auto) 1.3, Sodium Level 141, Potassium Level 4.0, Chloride Level 102, Carbon Dioxide Level 35H, Anion Gap 4L, Blood Urea Nitrogen 19H, Creatinine 0.6, Estimat Glomerular Filtration Rate > 60, Glucose Level 146H, Calcium Level 8.2L 12/09/19 17:29: POC Whole Blood Glucose 147H 12/09/19 23:23: POC Whole Blood Glucose 153H 12/10/19 03:50: White Blood Count 7.1, Red Blood Count 3.55L, Hemoglobin 9.3L, Hematocrit 31.2L , Mean Corpuscular Volume 88, Mean Corpuscular Hemoglobin 26.2L, Mean Corpuscular Hemoglobin Concent 29.8L, Red Cell Distribution Width 18.1H, Platelet Count 318, Mean Platelet Volume 5.9L, Neutrophils (%) (Auto) 74.9, Lymphocytes (%) (Auto) 14.1L, Monocytes (%) (Auto) 9.0, Eosinophils (%) (Auto) 0.7, Basophils (%) (Auto) 1.2, Sodium Level 140, Potassium Level 3.8, Chloride Level 104, Carbon Dioxide Level 35H, Anion Gap 1L, Blood Urea Nitrogen 18, Creatinine 0.6, Estimat Glomerular Filtration Rate > 60, Glucose Level 136H, Calcium Level 8.5 12/10/19 05:13: POC Whole Blood Glucose 130H Height (Feet): 5 Height (Inches): 1.00 Weight (Pounds): 300 General Appearance: no apparent distress EENT: normal ENT inspection Neck: supple Cardiovascular: normal rate Respiratory/Chest: decreased breath sounds Abdomen: normal bowel sounds, non tender, soft Extremities: non-tender Case Patel MD Dec 10, 2019 11:04
[2019-12-10 12:00] VITALS: BP 116/71
--- NOTE | 2019-12-10 13:14 | Pulmonology Progress Note ---
Subjective ROS Limited/Unobtainable: No Interval Events: Re-intubated on 11/19/19; Status post tracheostomy 11/24/2019 Constitutional: Denies: fever HEENT: Repors: no symptoms Respiratory: Reports: dry cough, shortness of breath Cardiovascular: Reports: no symptoms Gastrointestinal/Abdominal: Reports: diarrhea Musculoskeletal: Denies: pain Allergies: Coded Allergies: No Known Allergies (Unverified , 11/06/19) All Systems: reviewed and negative except above Objective Last 24 Hour Vital Signs Date Time Temp Pulse Resp B/P (MAP) Pulse Ox O2 Delivery O2 Flow Rate FiO2 12/10/19 12:00 35 12/10/19 12:00 Mechanical Ventilator Mechanical Ventilator 12/10/19 12:00 98.6 81 18 116/71 (86) 100 12/10/19 11:47 78 12/10/19 09:13 82 138/78 12/10/19 08:30 99 12/10/19 08:30 103 12/10/19 08:00 84 12/10/19 08:00 98.5 82 18 138/78 (98) 100 12/10/19 08:00 Mechanical Ventilator Mechanical Ventilator 12/10/19 08:00 35 12/10/19 07:18 87 20 35 12/10/19 07:18 99 Mechanical Ventilator 12/10/19 04:46 100 19 35 12/10/19 04:00 98.8 91 28 131/72 (91) 98 12/10/19 04:00 80 12/10/19 04:00 40 12/10/19 04:00 Mechanical Ventilator Mechanical Ventilator 12/10/19 02:56 85 20 35 12/10/19 00:43 72 18 35 12/10/19 00:00 83 12/10/19 00:00 Mechanical Ventilator Mechanical Ventilator 12/10/19 00:00 98.3 89 28 132/99 (110) 98 12/09/19 22:30 94 22 35 12/09/19 20:47 93 19 35 12/09/19 20:11 105 160/74 12/09/19 20:00 107 12/09/19 20:00 40 12/09/19 20:00 Mechanical Ventilator Mechanical Ventilator 12/09/19 20:00 98.8 105 28 160/74 (102) 98 12/09/19 19:19 103 26 35 12/09/19 19:17 100 Mechanical Ventilator 12/09/19 17:58 96 20 12/09/19 16:58 101 18 12/09/19 16:00 99.0 116 28 149/81 (103) 98 12/09/19 16:00 Mechanical Ventilator Mechanical Ventilator 12/09/19 16:00 35 12/09/19 16:00 114 12/09/19 14:47 98 18 Intake and Output 12/09/19 12/10/19 19:00 07:00 Intake Total 640 ml 630 ml Output Total 400 ml 400 ml Balance 240 ml 230 ml Free Water 90 ml 30 ml Tube Feeding 550 ml 600 ml Output Urine Total 400 ml 400 ml # Bowel Movements 5 1 General Appearance: no acute distress HEENT: normocephalic, status post trach Respiratory: decreased breath sounds Cardiovascular: normal peripheral pulses Abdomen: normal bowel sounds Extremities: no cyanosis Microbiology Date/Time Source Procedure Growth Status 12/07/19 17:05 Stool Clostridium difficile Toxin Assay - Final Complete Laboratory Tests 12/09/19 13:55: White Blood Count 8.5, Red Blood Count 3.75L, Hemoglobin 9.9L, Hematocrit 33.7L , Mean Corpuscular Volume 90, Mean Corpuscular Hemoglobin 26.5L, Mean Corpuscular Hemoglobin Concent 29.5L, Red Cell Distribution Width 18.4H, Platelet Count 339, Mean Platelet Volume 6.0L, Neutrophils (%) (Auto) 75.6H, Lymphocytes (%) (Auto) 18.5L, Monocytes (%) (Auto) 3.7, Eosinophils (%) (Auto) 1.0, Basophils (%) (Auto) 1.3, Sodium Level 141, Potassium Level 4.0, Chloride Level 102, Carbon Dioxide Level 35H, Anion Gap 4L, Blood Urea Nitrogen 19H, Creatinine 0.6, Estimat Glomerular Filtration Rate > 60, Glucose Level 146H, Calcium Level 8.2L 12/09/19 17:29: POC Whole Blood Glucose 147H 12/09/19 23:23: POC Whole Blood Glucose 153H 12/10/19 03:50: White Blood Count 7.1, Red Blood Count 3.55L, Hemoglobin 9.3L, Hematocrit 31.2L , Mean Corpuscular Volume 88, Mean Corpuscular Hemoglobin 26.2L, Mean Corpuscular Hemoglobin Concent 29.8L, Red Cell Distribution Width 18.1H, Platelet Count 318, Mean Platelet Volume 5.9L, Neutrophils (%) (Auto) 74.9, Lymphocytes (%) (Auto) 14.1L, Monocytes (%) (Auto) 9.0, Eosinophils (%) (Auto) 0.7, Basophils (%) (Auto) 1.2, Sodium Level 140, Potassium Level 3.8, Chloride Level 104, Carbon Dioxide Level 35H, Anion Gap 1L, Blood Urea Nitrogen 18, Creatinine 0.6, Estimat Glomerular Filtration Rate > 60, Glucose Level 136H, Calcium Level 8.5 12/10/19 05:13: POC Whole Blood Glucose 130H 12/10/19 12:13: POC Whole Blood Glucose 123H Current Medications Medications (Trade) Dose Ordered Sig/Robyn Route PRN Reason Start Time Stop Time Status Last Admin Dose Admin Acetaminophen (Tylenol) 650 mg Q4H PRN GT For Pain 11/30/19 17:45 12/30/19 17:44 11/30/19 18:24 Acetaminophen (Tylenol) 650 mg Q6H PRN GT Temp >100.5 11/29/19 15:00 12/12/19 14:59 12/07/19 13:32 Amiodarone HCl (Cordarone) 200 mg DAILY GT 12/04/19 09:00 02/18/20 09:29 12/10/19 09:13 Clonidine HCl (Catapres Tab) 0.1 mg Q4H PRN GT For High Blood Pressure 11/29/19 14:30 02/09/20 14:29 Dextrose (Dextrose 50%) 25 ml Q30M PRN IV Hypoglycemia 11/29/19 14:15 02/21/20 06:44 Dextrose (Dextrose 50%) 50 ml Q30M PRN IV Hypoglycemia 11/29/19 14:15 02/21/20 06:44 Famotidine (Pepcid) 20 mg BID GT 11/29/19 18:00 02/26/20 17:59 12/10/19 09:13 Folic Acid (Folate) 2 mg DAILY GT 11/30/19 09:00 12/15/19 08:59 12/10/19 09:13 Insulin Aspart (NovoLOG) EVERY 6 HOURS SUBQ 12/07/19 18:00 03/06/20 17:59 12/09/19 23:25 Insulin Detemir (Levemir) 8 units BID SUBQ 12/08/19 09:00 02/21/20 08:59 12/10/19 09:14 Lorazepam (Ativan 2mg/ml 1ml) 2 mg Q3H PRN IV For Anxiety 12/09/19 09:45 12/16/19 09:44 Metolazone (Zaroxolyn) 2.5 mg DAILY GT 11/30/19 09:00 12/28/19 09:29 12/10/19 09:13 Metoprolol Tartrate (Lopressor) 25 mg Q12HR GT 11/29/19 21:00 02/18/20 09:29 12/10/19 09:13 Vancomycin HCl (Firvanq) 125 mg FOUR TIMES A DAY GT 12/01/19 13:00 12/10/19 23:59 12/10/19 12:35 Assessment/Plan Assessment/Plan IMPRESSION: 1. COVID-19 pneumonia. 2. Diabetes mellitus and hypertension. 3. Lactic acidemia. 4. Epistaxis 5. Respiratory failure; failed extubation 6. S/p trach/PEG DISCUSSION: Careful and close monitoring. Continue medications status post tracheostomy Begin weaning; trach collar S/p PEG I will follow carefully Noted C. diff positive Dc planning to sub-acute Lakeisha Zavaleta Omar Syed MD Dec 10, 2019 13:14
[2019-12-10] MEDS ORDERED: Sterile Water Irrig 1000ml IRRIG ONE (14:20)
--- NOTE | 2019-12-10 16:09 | Cardiac Electrophysiology PN ---
Assessment/Plan Assessment/Plan 1. Paroxysmal atrial fibrillation. On metoprolol 25 bid and Amiodarone 200 daily Keep off anticoagulation for hematuria and black stool. EF 55% on echo. 2. S/P Shock. Off pressors. 3. COVID positive pneumonia. Now off isolation 4. Diabetes, on insulin. 5. Respiratory failure. S/P Tracheostomy 11/24/19. 6. S/P Massive nasal bleed. 7. Severe LE edema.On Metolazone 8. Dysphagia, S/P PEG 11/25/19 9. C Diff.Was treated . Now negative. FU Dr David SAGE RN DC to [facility] today Subjective Subjective Off Covid isolation. S/P tracheostomy 11/24/19 and PEG 11/25/19. Off the vent In atrial fib rate controlled on Lopressor 25 bid. No more diarrhea and C Diff negative DC to [facility] today Objective Last 24 Hour Vital Signs Date Time Temp Pulse Resp B/P (MAP) Pulse Ox O2 Delivery O2 Flow Rate FiO2 12/10/19 13:24 83 21 35 12/10/19 12:00 35 12/10/19 12:00 Mechanical Ventilator Mechanical Ventilator 12/10/19 12:00 98.6 81 18 116/71 (86) 100 12/10/19 11:47 78 12/10/19 11:14 87 20 35 12/10/19 09:13 82 138/78 12/10/19 08:30 99 12/10/19 08:30 103 12/10/19 08:00 84 12/10/19 08:00 98.5 82 18 138/78 (98) 100 12/10/19 08:00 Mechanical Ventilator Mechanical Ventilator 12/10/19 08:00 35 12/10/19 07:18 87 20 35 12/10/19 07:18 99 Mechanical Ventilator 12/10/19 04:46 100 19 35 12/10/19 04:00 98.8 91 28 131/72 (91) 98 12/10/19 04:00 80 12/10/19 04:00 40 12/10/19 04:00 Mechanical Ventilator Mechanical Ventilator 12/10/19 02:56 85 20 35 12/10/19 00:43 72 18 35 12/10/19 00:00 83 12/10/19 00:00 Mechanical Ventilator Mechanical Ventilator 8/20/20 00:00 98.3 89 28 132/99 (110) 98 12/09/19 22:30 94 22 35 12/09/19 20:47 93 19 35 12/09/19 20:11 105 160/74 12/09/19 20:00 107 12/09/19 20:00 40 12/09/19 20:00 Mechanical Ventilator Mechanical Ventilator 12/09/19 20:00 98.8 105 28 160/74 (102) 98 12/09/19 19:19 103 26 35 12/09/19 19:17 100 Mechanical Ventilator 12/09/19 17:58 96 20 12/09/19 16:58 101 18 Intake and Output 12/09/19 12/10/19 19:00 07:00 Intake Total 640 ml 630 ml Output Total 400 ml 400 ml Balance 240 ml 230 ml Free Water 90 ml 30 ml Tube Feeding 550 ml 600 ml Output Urine Total 400 ml 400 ml # Bowel Movements 5 1 Laboratory Tests Test 12/09/19 17:29 12/09/19 23:23 12/10/19 03:50 12/10/19 05:13 POC Whole Blood Glucose 147 MG/DL (74-106) H 153 MG/DL (74-106) H 130 MG/DL (74-106) H White Blood Count 7.1 K/UL (4.8-10.8) Red Blood Count 3.55 M/UL (4.20-5.40) L Hemoglobin 9.3 G/DL (12.0-16.0) L Hematocrit 31.2 % (37.0-47.0) L Mean Corpuscular Volume 88 FL (80-99) Mean Corpuscular Hemoglobin 26.2 PG (27.0-31.0) L Mean Corpuscular Hemoglobin Concent 29.8 G/DL (32.0-36.0) L Red Cell Distribution Width 18.1 % (11.6-14.8) H Platelet Count 318 K/UL (150-450) Mean Platelet Volume 5.9 FL (6.5-10.1) L Neutrophils (%) (Auto) 74.9 % (45.0-75.0) Lymphocytes (%) (Auto) 14.1 % (20.0-45.0) L Monocytes (%) (Auto) 9.0 % (1.0-10.0) Eosinophils (%) (Auto) 0.7 % (0.0-3.0) Basophils (%) (Auto) 1.2 % (0.0-2.0) Sodium Level 140 MMOL/L (136-145) Potassium Level 3.8 MMOL/L (3.5-5.1) Chloride Level 104 MMOL/L (98-107) Carbon Dioxide Level 35 MMOL/L (21-32) H Anion Gap 1 mmol/L (5-15) L Blood Urea Nitrogen 18 mg/dL (7-18) Creatinine 0.6 MG/DL (0.55-1.30) Estimat Glomerular Filtration Rate > 60 mL/min (>60) Glucose Level 136 MG/DL (74-106) H Calcium Level 8.5 MG/DL (8.5-10.1) Test 12/10/19 12:13 POC Whole Blood Glucose 123 MG/DL (74-106) H Microbiology Date/Time Source Procedure Growth Status 12/07/19 17:05 Stool Clostridium difficile Toxin Assay - Final Complete Objective HEAD AND NECK: No JVD. Tracheostomy in place. LUNGS: Coarse rhonchi. CARDIOVASCULAR: Irregularly irregular. S1 and S2 with no gallop or murmur. ABDOMEN: Soft.PEG EXTREMITIES: 2 plus pitting edema. Gabe Snell MD Dec 10, 2019 16:09
== END 2019-12-10 14:21 | DRG 5 ==
LOC: EDBD 21:53 → EMR 22:11 → 2W 22:37 → EDBEDREQ 23:50 → EDBEDREQSVC 23:54 → ICU 11-08 10:20 → 2W 11-29 13:20
PROC: 2Y41X5Z Packing of Nasal Region using Packing Material (ICD-10-PCS; 2019-11-08)
PROC: 5A1955Z Respiratory Ventilation, Greater than 96 Consecutive Hours (ICD-10-PCS; principal; 2019-11-09)
PROC: 0BH17EZ Insertion of Endotracheal Airway into Trachea, Via Natural or Artificial Opening (ICD-10-PCS; principal; 2019-11-09)
PROC: 02HV33Z Insertion of Infusion Device into Superior Vena Cava, Percutaneous Approach (ICD-10-PCS; 2019-11-18)
PROC: B548ZZA Ultrasonography of Superior Vena Cava, Guidance (ICD-10-PCS; 2019-11-18)
PROC: 05H533Z Insertion of Infusion Device into Right Subclavian Vein, Percutaneous Approach (ICD-10-PCS; 2019-11-23)
PROC: 0B110F4 Bypass Trachea to Cutaneous with Tracheostomy Device, Open Approach (ICD-10-PCS; 2019-11-24)
PROC: 0DH63UZ Insertion of Feeding Device into Stomach, Percutaneous Approach (ICD-10-PCS; 2019-11-25)
DX: U07.1 COVID-19 (principal); J12.89 Other viral pneumonia; I11.0 Hypertensive heart disease with heart failure; I50.9 Heart failure, unspecified; R04.0 Epistaxis; I48.91 Unspecified atrial fibrillation; R57.9 Shock, unspecified; J96.01 Acute respiratory failure with hypoxia; E66.01 Morbid (severe) obesity due to excess calories; Z68.44 Body mass index [BMI] 60.0-69.9, adult; Z91.14 Patient's other noncompliance with medication regimen; N39.0 Urinary tract infection, site not specified; E87.5 Hyperkalemia; E87.70 Fluid overload, unspecified; R13.10 Dysphagia, unspecified; E11.65 Type 2 diabetes mellitus with hyperglycemia; R31.9 Hematuria, unspecified; K92.1 Melena; A04.72 Enterocolitis due to Clostridium difficile, not specified as recurrent; D64.9 Anemia, unspecified; D72.829 Elevated white blood cell count, unspecified; J15.6 Pneumonia due to other Gram-negative bacteria; J15.211 Pneumonia due to Methicillin susceptible Staphylococcus aureus
CPT/HCPCS: 36415; 36569; 36600; 71045; 74018; 76937; 80048; 80053; 80061; 80076; 81003; 82040; 82248; 82270; 82550; 82553; 82607; 82728; 82746; 82803; 82962; 82977; 83036; 83540; 83550; 83605; 83615; 83735; 83880; 84100; 84132; 84439; 84443; 84478; 84484; 84550; 85007; 85025; 85379; 85610; 85730; 86140; 87040; 87070; 87181; 87205; 87324; 92950; 93005; 93306; 93970; 93971; 94002; 94003; 94150; 94664; 96365; 96375; 99285; J1815; J7030; S5561; U0002